=== PATIENT | male | born 1980 | race Hispanic/Latino ===

== ENCOUNTER 2017-11-21 12:05 | Emergency (ER) | payer OTHER ==
[2017-11-21 14:09] LABS: Absolute Monocytes 1.1 K/uL (0.1-1.3); Absolute Neutrophil 7.7 K/uL (1.8-8.0); Eosinophils % 0.9 % (0-4.4); Hematocrit 43.2 % (39.6-49.0); Lymphocytes % 18.2 % (15.3-44.8); MCH 31.9 pg (27.0-35.0); MCV 94.3 fL (80-100); MPV 8.9 fL (7.6-11.3); Monocytes % 9.9 % (3.3-12.3); RBC Red Blood Cell Count 4.58 M/uL (4.33-5.43)
--- NOTE | 2017-11-21 14:14 | RAD REPORT ---
EXAM DESCRIPTION: RAD - Chest Single View - 11/21/2017 1:57 pm CLINICAL HISTORY: Shortness of breath COMPARISON: 08/01/2017 FINDINGS: Portable technique limits examination quality. The lungs are grossly clear. The heart is normal in size. No displaced fractures. IMPRESSION: No acute intrathoracic process suspected.
[2017-11-21 14:15] LABS: Protime INR 0.95
[2017-11-21 14:20] LABS: Urine Blood NEGATIVE (NEG); Urine Glucose NEGATIVE (NEG); Urine Protein NEGATIVE (NEG); Urine Specific Gravity 1.015 (1.005-1.030)
[2017-11-21 14:22] LABS: Glucose Level 103 mg/dL (65-120)
[2017-11-21 14:28] LABS: Albumin 4.2 g/dL (3.2-5.5); Alkaline Phosphatase 51 IU/L (42-121); BUN Blood Urea Nitrogen 14 mg/dL (6-20); Bilirubin Direct 0.1 mg/dL (0-0.2); Bilirubin Total 0.6 mg/dL (0.3-1.2); Glomerular Filtration Rate > 90 mL/min (=/>90); Magnesium 2.1 mg/dL (1.8-2.5); Protein, Total 7.1 g/dL (6.0-8.3)
[2017-11-21 14:32] LABS: ALT/SGPT 34 IU/L (10-60); AST/SGOT 28 IU/L (10-42); Bicarbonate 24 mEq/L (21-31); Potassium 4.3 mEq/L (3.6-5.0); Sodium Level 133 mEq/L (135-145)
--- NOTE | 2017-11-21 16:15 | ER ---
Nurse's Notes [facility] Name: Brett Kramer Age: 37 yrs Sex: Male : 1980 Arrival Date: 11/21/2017 Time: 12:08 Bed 18 Private MD: Omari Thao E Diagnosis: Shortness of breath;Pedal Edema Presentation: 11/21 12:23 Presenting complaint: Patient states: Bilateral lower leg swelling and SOB since last hb night. Pt is 1 week post of shoulder and wrist sx. Transition of care: patient was not received from another setting of care. Onset of symptoms was November 20, 2017. Care prior to arrival: None. 12:23 Method Of Arrival: Ambulatory hb 12:23 Acuity: CLAIRE 3 hb Triage Assessment: 12:59 General: Appears in no apparent distress. uncomfortable, Behavior is calm, cooperative, hj appropriate for age. Respiratory: Reports shortness of breath Onset: The symptoms/episode began/occurred the patient has mild shortness of breath. Historical: - Allergies: 12:27 propoxyphene napsylate; hb - Home Meds: 12:27 Ativan Oral [Active]; metoprolol tartrate 50 mg Oral tab 1 tab 2 times per day [Active];hb - PMHx: 12:27 Hypertension; PE; hb - PSHx: 12:27 shoulder - right; wrist - right; hb - Immunization history:: Adult Immunizations up to date. - Social history:: Smoking status: Patient/guardian denies using tobacco. Screenin:58 Abuse screen: Denies threats or abuse. Denies injuries from another. Nutritional hj screening: No deficits noted. Tuberculosis screening: No symptoms or risk factors identified. Fall Risk Fall in past 12 months (25 points). Assessment: 12:59 Pain: Complains of pain in right leg and left leg. Cardiovascular: Rhythm is regular. hj Respiratory: Airway is patent Respiratory effort is even, unlabored, Respiratory pattern is regular, symmetrical, Breath sounds are clear. 12:59 General: Appears in no apparent distress. uncomfortable, Behavior is cooperative, hj appropriate for age, anxious. Pain: Complains of pain in chest and left leg and right leg. Neuro: Level of Consciousness is awake, alert, obeys commands, Oriented to person, place, time, situation, Appropriate for age. 12:59 GI: No signs and/or symptoms were reported involving the gastrointestinal system. : hj No signs and/or symptoms were reported regarding the genitourinary system. EENT: No signs and/or symptoms were reported regarding the EENT system. Derm: No signs and/or symptoms reported regarding the dermatologic system. Musculoskeletal: Reports pain in chest and anterior aspect of right shoulder and left leg and right leg. 13:45 Reassessment: awaiting for provider to visit pt;. hj 14:30 Reassessment: Patient and/or family updated on plan of care and expected duration. Pain hj level reassessed. Patient is alert, oriented x 3, equal unlabored respirations, skin warm/dry/pink. awaiting results;. 15:57 Reassessment: Patient and/or family updated on plan of care and expected duration. Pain hj level reassessed. Patient is alert, oriented x 3, equal unlabored respirations, skin warm/dry/pink. awaiting POC;. 16:36 Reassessment: Patient and/or family updated on plan of care and expected duration. Pain hj level reassessed. Patient is alert, oriented x 3, equal unlabored respirations, skin warm/dry/pink. D/ C instruction given; awaiting breathing tx to be done and ride to pick him up;. Vital Signs: 12:27 BP 148 / 88; Pulse 100; Resp 16; Temp 98.4; Pulse Ox 100% on R/A; Weight 106.59 kg; hb Height 5 ft. 8 in. (172.72 cm); Pain 10/10; 13:31 BP 132 / 94; Pulse 87; Resp 18; Pulse Ox 100% on R/A; hj 15:58 BP 122 / 65; Pulse 84; Resp 18; Pulse Ox 100% on R/A; hj 12:27 Body Mass Index 35.73 (106.59 kg, 172.72 cm) hb ED Course: 12:08 Patient arrived in ED. rg4 12:08 Omari Thao MD is Private Physician. rg4 12:25 Triage completed. hb 12:27 Arm band placed on left wrist. hb 12:47 Albert Medina MD is Attending Physician. kdr 12:58 Matias Younger RN is Primary Nurse. hj 12:59 Patient has correct armband on for positive identification. Placed in gown. Bed in low hj position. Call light in reach. Side rails up X 1. 13:57 XRAY Chest (1 view) In Process Unspecified. EDMS 13:57 Initial lab(s) drawn, by me, sent to lab. Inserted saline lock: 22 gauge in left hj antecubital area, using aseptic technique. Blood collected. 13:58 Urine collected: clean catch specimen, clear. hj 16:13 Omari Thao MD is Referral Physician. kdr 16:16 Warm blanket given. Pillow given. Head of bed lowered. pillow provided to support arm ae1 in sling. 16:58 No provider procedures requiring assistance completed. IV discontinued, intact, hj bleeding controlled, No redness/swelling at site. Pressure dressing applied. Administered Medications: 16:12 Drug: Xopenex (3) 1.25 mg Route: Inhalation; hj 16:12 Drug: morphine 4 mg Route: IVP; Site: left antecubital; hj 16:27 Follow up: Response: No adverse reaction; Pain is decreased hj 16:12 Drug: Zofran 4 mg Route: IVP; Site: left antecubital; hj 16:26 Follow up: Response: No adverse reaction hj 16:12 Drug: Lasix 20 mg Route: IVP; Site: left antecubital; hj 16:26 Follow up: Response: No adverse reaction hj Output: 16:16 Urine: 800ml (Voided); Total: 800ml. ae1 Outcome: 16:14 Discharge ordered by . kdr 16:58 Discharged to home ambulatory. hj 16:58 Condition: stable 16:58 Discharge instructions given to patient, Instructed on discharge instructions, follow up and referral plans. medication usage, Demonstrated understanding of instructions, follow-up care, medications, Prescriptions given X 2. 16:58 Patient left the ED. hj Signatures: Dispatcher [employer] EDMS Albert Medina MD MD kdr Matias Younger RN RN hj Baxter, Heather, RN RN Filippo Ybarra RN RN ae1 Bekah Castañeda rg4
--- NOTE | 2017-11-21 16:15 | EDPHYS ---
Physician Documentation [facility] Name: Brett Kramer Age: 37 yrs Sex: Male : 1980 Arrival Date: 11/21/2017 Time: 12:08 Bed 18 Private MD: Omari Thao E ED Physician Albert Medina HPI: 11/21 18:16 This 37 yrs old Male presents to ER via Ambulatory with complaints of Leg kdr Swelling, Shortness Of Breath. 18:16 The patient has shortness of breath at rest, with light activity. Onset: The kdr symptoms/episode began/occurred gradually, last night. Duration: The symptoms are continuous, and are steadily getting worse. The patient's shortness of breath is aggravated by exertion, light activity. 18:16 Associated signs and symptoms: Pertinent positives: Pertinent negatives: chest pain, kdr non-productive cough, productive cough, diaphoresis, dizziness, fever, hemoptysis, nausea, numbness in extremities, visual changes, vomiting. Severity of symptoms: At their worst the symptoms were mild in the emergency department the symptoms are unchanged. The patient has not experienced similar symptoms in the past. 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 He states that he is concerned about recurrence of his prior DVTs however, the leg swelling is bilaterally symetric. Historical: - Allergies: 12:27 propoxyphene napsylate; hb - Home Meds: 12:27 Ativan Oral [Active]; metoprolol tartrate 50 mg Oral tab 1 tab 2 times per day [Active];hb - PMHx: 12:27 Hypertension; PE; hb - PSHx: 12:27 shoulder - right; wrist - right; hb - Immunization history:: Adult Immunizations up to date. - Social history:: Smoking status: Patient/guardian denies using tobacco. ROS: 18:16 Constitutional: Negative for fever, chills, and weight loss, Eyes: Negative for injury, kdr pain, redness, and discharge, ENT: Negative for injury, pain, and discharge, Neck: Negative for injury, pain, and swelling, Cardiovascular: Negative for chest pain, palpitations, and edema, Abdomen/GI: Negative for abdominal pain, nausea, vomiting, diarrhea, and constipation, Back: Negative for injury and pain, : Negative for injury, bleeding, discharge, and swelling, Skin: Negative for injury, rash, and discoloration, Neuro: Negative for headache, weakness, numbness, tingling, and seizure activity. Psych: Negative for depression, anxiety, suicide ideation, homicidal ideation, and hallucinations, Allergy/Immunology: Negative for hives, rash, and allergies, Endocrine: Negative for neck swelling, polydipsia, polyuria, polyphagia, and marked weight changes, Hematologic/Lymphatic: Negative for swollen nodes, abnormal bleeding, and unusual bruising. 18:16 Respiratory: Positive for shortness of breath, at rest. Negative for cough, dyspnea on exertion, hemoptysis, orthopnea, pleurisy, sputum production, wheezing. 18:16 MS/extremity: Positive for swelling, of the right leg and left leg. Exam: 18:16 Constitutional: This is a well developed, well nourished patient who is awake, alert, kdr and in no acute distress. Head/Face: Normocephalic, atraumatic. Eyes: Pupils equal round and reactive to light, extra-ocular motions intact. Lids and lashes normal. Conjunctiva and sclera are non-icteric and not injected. Cornea within normal limits. Periorbital areas with no swelling, redness, or edema. Neck: Trachea midline, no thyromegaly or masses palpated, and no cervical lymphadenopathy. Supple, full range of motion without nuchal rigidity, or vertebral point tenderness. No Meningismus. Chest/axilla: Normal chest wall appearance and motion. Nontender with no deformity. No lesions are appreciated. Cardiovascular: Regular rate and rhythm with a normal S1 and S2. No gallops, murmurs, or rubs. Normal PMI, no JVD. No pulse deficits. Respiratory: Lungs have equal breath sounds bilaterally, clear to auscultation and percussion. No rales, rhonchi or wheezes noted. No increased work of breathing, no retractions or nasal flaring. Abdomen/GI: Soft, non-tender, with normal bowel sounds. No distension or tympany. No guarding or rebound. No evidence of tenderness throughout. Back: No spinal tenderness. No costovertebral tenderness. Full range of motion. Skin: Warm, dry with normal turgor. Normal color with no rashes, no lesions, and no evidence of cellulitis. Neuro: Awake and alert, GCS 15, oriented to person, place, time, and situation. Cranial nerves II-XII grossly intact. Motor strength 5/5 in all extremities. Sensory grossly intact. Cerebellar exam normal. Normal gait. Psych: Awake, alert, with orientation to person, place and time. Behavior, mood, and affect are within normal limits. 18:16 Musculoskeletal/extremity: Extremities: grossly normal except: ROM: intact in all extremities, Circulation is intact in all extremities. Pulses: are normal with no appreciated deficits, Sensation intact. Weight bearing: able to fully bear weight, without difficulty, Calves: are non-tender, have equal circumference. Vital Signs: 12:27 BP 148 / 88; Pulse 100; Resp 16; Temp 98.4; Pulse Ox 100% on R/A; Weight 106.59 kg; hb Height 5 ft. 8 in. (172.72 cm); Pain 10/10; 13:31 BP 132 / 94; Pulse 87; Resp 18; Pulse Ox 100% on R/A; hj 15:58 BP 122 / 65; Pulse 84; Resp 18; Pulse Ox 100% on R/A; hj 12:27 Body Mass Index 35.73 (106.59 kg, 172.72 cm) hb MDM: 16:14 Patient medically screened. kdr 18:16 Data reviewed: vital signs, nurses notes, lab test result(s), radiologic studies. kdr Counseling: I had a detailed discussion with the patient and/or guardian regarding: the historical points, exam findings, and any diagnostic results supporting the discharge/admit diagnosis, lab results, radiology results. 11/21 13:46 Order name: Urine Dipstick--Ancillary (enter results); Complete Time: 16: ag 11/21 13:48 Order name: Basic Metabolic Panel; Complete Time: 16: kdr 11/21 13:48 Order name: BNP; Complete Time: 16: kdr 11/21 13:48 Order name: CBC with Diff; Complete Time: 16: kdr 11/21 13:48 Order name: LFT's; Complete Time: 16: kdr 11/21 13:48 Order name: Magnesium; Complete Time: 16: kdr 11/21 13:48 Order name: PT-INR; Complete Time: 16: kdr 11/21 13:48 Order name: Ptt, Activated; Complete Time: 16: kdr 11/21 13:48 Order name: Troponin (emerg Dept Use Only); Complete Time: 16:03 kdr 11/21 13:48 Order name: XRAY Chest (1 view); Complete Time: 16:03 kdr 11/21 14:21 Order name: DD kdr 11/21 14:21 Order name: D-Dimer; Complete Time: 16:03 EDMS 11/21 13:48 Order name: EKG; Complete Time: 13:49 kdr 11/21 13:48 Order name: Cardiac monitoring; Complete Time: 13:53 kdr 11/21 13:48 Order name: EKG - Nurse/Tech; Complete Time: 15:46 kdr 11/21 13:48 Order name: IV Saline Lock; Complete Time: 13:54 kdr 11/21 13:48 Order name: Labs collected and sent; Complete Time: 13:54 kdr 11/21 13:48 Order name: O2 Per Protocol; Complete Time: 13:54 kdr 11/21 13:48 Order name: O2 Sat Monitoring; Complete Time: 13:54 kdr 11/21 13:48 Order name: Urine Dipstick-Ancillary (obtain specimen); Complete Time: 13:54 kdr Administered Medications: 16:12 Drug: Xopenex (3) 1.25 mg Route: Inhalation; hj 16:12 Drug: morphine 4 mg Route: IVP; Site: left antecubital; hj 16:27 Follow up: Response: No adverse reaction; Pain is decreased hj 16:12 Drug: Zofran 4 mg Route: IVP; Site: left antecubital; hj 16:26 Follow up: Response: No adverse reaction hj 16:12 Drug: Lasix 20 mg Route: IVP; Site: left antecubital; hj 16:26 Follow up: Response: No adverse reaction hj Disposition: 11/21/17 16:14 Discharged to Home. Impression: Shortness of breath, Pedal Edema. - Condition is Stable. - Discharge Instructions: Shortness of Breath, [id number], Edema, [id number]. - Prescriptions for Xopenex HFA 45 mcg/actuation Inhalation HFA aerosol inhaler - inhale 2 puff by INHALATION route every 4 hours As needed; 2 Cartridge. Lasix 20 mg Oral Tablet - take 1 tablet by ORAL route once daily; 20 tablet. - Medication Reconciliation Form, Thank You Letter, Antibiotic Education, Prescription Opioid Use form. - Follow up: Omari Thao MD; When: 2 - 3 days; Reason: If symptoms return, Further diagnostic work-up, Recheck today's complaints, Continuance of care, Re-evaluation by your physician. - Problem is new. - Symptoms have improved. Signatures: Dispatcher [employer] EDMS Albert Medina MD MD [facility] Matias Younger RN RN Mirlande Anne RN RN
[2017-11-21] MEDS ORDERED: FUROSEMIDE 20 MG/ 2ML VIAL ONE (16:36)
[2017-11-21] MEDS ORDERED: MORPHINE 4 MG/ML SYR ONE (16:36)
[2017-11-21] MEDS ORDERED: ONDANSETRON 4 MG/2 ML VIAL ONE (16:36)
[2017-11-21] MEDS ORDERED: LEVALBUTEROL 1.25 MG/3 ML NEB ONE (16:38)
[2017-11-21 17:02] VITALS: TEMP 98.4; O2SAT 100
[2017-11-21 17:04] VITALS: BP 122/65
--- NOTE | 2017-11-23 12:54 | EKG ---
Test Date: 2017-11-21 Test Time: 14:12:26 Accreditation Coordinator: ELISSA MEASUREMENT RESULTS: Intervals: Rate: 79 MA: 184 QRSD: 98 QT: 420 QTc: 481 Procious: P: 45 MA: 184 QRS: 77 T: 153 INTERPRETIVE STATEMENTS: Normal sinus rhythm T wave abnormality, consider lateral ischemia Prolonged QT Abnormal ECG Compared to ECG 08/01/2017 17:13:11 No significant changes Electronically Signed On 11-23-17 12:53:52 CDT by Lv Grace
== END 2017-11-21 16:58 | disposition home or self-care (01) ==
LOC: ER 12:05
DX: R60.9 Edema, unspecified (principal); I10 Essential (primary) hypertension; Z86.718 Personal history of other venous thrombosis and embolism; Z88.8 Allergy status to other drugs, medicaments and biological substances
CPT/HCPCS: 36415; 71045; 80048; 80076; 81003; 83735; 83880; 84484; 85025; 85379; 85610; 85730; 93005; 96374; 96375; 99284; J1940; J2405

== ENCOUNTER 2018-06-13 09:14 | Emergency (ER) | payer OTHER ==
[2018-06-13] MEDS ORDERED: ONDANSETRON 4 MG/2 ML VIAL ONE (09:36)
[2018-06-13] MEDS ORDERED: MORPHINE 4 MG/ML SYR ONE (09:38)
--- NOTE | 2018-06-13 10:02 | ER ---
Nurse's Notes [facility] Name: Brett Kramer Age: 37 yrs Sex: Male : 1980 Arrival Date: 06/13/2018 Time: 09:15 Bed 15 Private MD: Diagnosis: Pain in right foot-S/p crush injury yesterday with multiple fractures and lacerations Presentation: 06/13 09:16 Presenting complaint: Patient states: Pt. had a guillen put down on his left foot rb1 yesterday at work. Pt. went to [facility] in [place] yesterday and received stitches and a splint. Pt. was told to come to the ER if he noticed a difference in the capillary refill in his left great toe. Transition of care: patient was not received from another setting of care. Onset of symptoms was June 12, 2018 at 08:30. Risk Assessment: Do you want to hurt yourself or someone else? Patient reports no desire to harm self or others. Initial Sepsis Screen: Does the patient meet any 2 criteria? No. Patient's initial sepsis screen is negative. Does the patient have a suspected source of infection? No. Patient's initial sepsis screen is negative. Care prior to arrival: Medication(s) given: Dallas 10 mg. 09:16 Method Of Arrival: Wheelchair rb1 09:16 Acuity: CLAIRE 2 rb1 Triage Assessment: 09:16 General: Appears uncomfortable, Behavior is calm, cooperative, Denies fever. Pain: rb1 Complains of pain in right foot Pain radiates to right baldwin Pain currently is 10 out of 10 on a pain scale. Pain began 1 day ago. Neuro: Level of Consciousness is awake, alert, obeys commands, Oriented to person, place, time, situation. Cardiovascular: Capillary refill is > 3 seconds in right great toe. Respiratory: Airway is patent Respiratory effort is even, unlabored, Respiratory pattern is regular, symmetrical. GI: No signs and/or symptoms were reported involving the gastrointestinal system. : No signs and/or symptoms were reported regarding the genitourinary system. Derm: Skin is pink, warm \T\ dry. Derm: Musculoskeletal: Swelling present in right foot. Injury Description: Crush injury sustained to right foot is Stitches present in the toes on the right foot. Historical: - Allergies: 09:16 propoxyphene napsylate; rb1 - Home Meds: 09:16 metoprolol tartrate 50 mg Oral tab 1 tab 2 times per day [Active]; Cipro 750 mg Oral rb1 [Active]; sulfamethoxazole (bulk) miscellaneous [Active]; Dallas 10-325 mg Oral tab 1 tab every 4 hours [Active]; 10:35 Adderall XR 20 mg Oral cp24 1 cap twice a day [Active]; rb1 - PMHx: 09:16 Hypertension; PE; rb1 - PSHx: 09:16 shoulder - right; wrist - right; rb1 - Immunization history:: Adult Immunizations up to date, Last tetanus immunization: up to date. - Social history:: Smoking status: Patient uses tobacco products, smokes one pack cigarettes per day. - Ebola Screening: : Patient negative for fever greater than or equal to 101.5 degrees Fahrenheit, and additional compatible Ebola Virus Disease symptoms. Screenin:16 Abuse screen: Denies threats or abuse. Nutritional screening: No deficits noted. rb1 Tuberculosis screening: No symptoms or risk factors identified. Fall Risk No fall in past 12 months (0 pts). Secondary diagnosis (15 points) impaired mobility, IV access (20 points). Ambulatory Aid- Crutches/Cane/Walker (15 pts). Gait- Impaired (20 pts.). Mental Status- Overestimates/Forgets Limitations (15 pts.). Total Gauthier Fall Scale indicates High Risk Score (45 or more points). Fall prevention measures have been instituted. Side Rails Up X 2 Placed Close to Nursing Station 1:1 Attendant Assigned Frequent Obs/Assessments Occuring As available patient and family educated on Fall Prevention Program and Strategies. Assessment: 09:16 General: See triage assessment. rb1 09:50 Reassessment: Gave report to KRISTINE Schmitt at [facility]. Information from the SBAR was given. rb1 All questions asked and answered. 10:20 Reassessment: Patient and/or family updated on plan of care and expected duration. Pain rb1 level reassessed. Patient is alert, oriented x 3, equal unlabored respirations, skin warm/dry/pink. Pt. requested more pain medication. Dr. Medina notified. Received order for Fentanyl 50 mcg IVP x 1. 10:35 Reassessment: Gave report to [facility]. Information from the SBAR was given. rb1 Personal belongings sent with pt. Vital Signs: 09:16 BP 179 / 93; Pulse 98; Resp 20; Temp 97.0(O); Pulse Ox 99% on R/A; Weight 110.22 kg; rb1 Height 5 ft. 8 in. (172.72 cm) (R); Pain 10/10; 10:16 BP 179 / 99; Pulse 93; Resp 19; Pulse Ox 100% on R/A; Pain 10/10; rb1 09:16 Body Mass Index 36.95 (110.22 kg, 172.72 cm) rb1 ED Course: 09:15 Patient arrived in ED. tw3 09:16 Albert Medina MD is Attending Physician. kdr 09:16 Arm band placed on left wrist. rb1 09:16 Patient has correct armband on for positive identification. Bed in low position. Call rb1 light in reach. Side rails up X 1. Pulse ox on. NIBP on. Warm blanket given. 09:40 Inserted saline lock: 20 gauge in left antecubital area, using aseptic technique. rb1 09:40 Missed attempt(s): 22 gauge in right antecubital area. rb1 09:44 Maida South, RN is Primary Nurse. rb1 09:48 Triage completed. rb1 10:39 No provider procedures requiring assistance completed. Patient transferred, IV remains rb1 in place. Administered Medications: 09:40 Drug: morphine 4 mg Route: IVP; Site: left antecubital; rb1 10:00 Follow up: Response: No adverse reaction; Pain is decreased rb1 09:40 Drug: Zofran 4 mg Route: IVP; Site: left antecubital; rb1 10:00 Follow up: Response: No adverse reaction; Nausea is decreased rb1 10:24 Drug: fentaNYL (PF) 50 mcg Route: IVP; Site: left antecubital; rb1 10:39 Follow up: Response: No adverse reaction; Pain is decreased rb1 Outcome: 10:02 ER care complete, transfer ordered by . kdr 10:39 Patient left the ED. rb1 10:39 Transferred by ground EMS to [facility], Transfer form rb1 completed. 10:39 Condition: stable 10:39 Discharge instructions given to Instructed on the need for transfer. Signatures: Albert Medina MD MD kdr Maida South, RN RN rb1 Michael, Tia tw3
--- NOTE | 2018-06-13 10:02 | EDPHYS ---
Physician Documentation [facility] Name: Brett Kramer Age: 37 yrs Sex: Male : 1980 Arrival Date: 06/13/2018 Time: 09:15 Bed 15 Private MD: ED Physician Albert Medina HPI: 06/13 09:29 This 37 yrs old Male presents to ER via Unassigned with complaints of Foot kdr Injury. 09:29 The patient presents with a crush injury, decreased range of motion, pain, that is kdr acute. The complaints affect the left foot. Context: The problem was sustained at work, resulted from [employer] pad from lift came down on his foot while he was wearing steel tipped work boots, Mechanism of Injury: Crush the patient is not able to bear weight, the patient is not able to ambulate. Onset: The symptoms/episode began/occurred suddenly, yesterday, at 08:30, Was seen at [facility] at about Noon for the same injury. Had suture repair and splinting for foot fractures.. Modifying factors: The symptoms are alleviated by nothing, the symptoms are aggravated by weight bearing, movement, wearing shoes. Associated signs and symptoms: The patient has no apparent associated signs or symptoms. Severity of symptoms: At their worst the symptoms were moderate, in the emergency department the symptoms are unchanged. The patient has not experienced similar symptoms in the past. The patient was evaluated and repaired at [facility] and discharged with follow-up in [place] on Friday. The patient states that he has been taking his [place] for pain as prescribed and has been keeping the foot elevated while laying on the couch.. Historical: - Allergies: 09:16 propoxyphene napsylate; rb1 - Home Meds: 09:16 metoprolol tartrate 50 mg Oral tab 1 tab 2 times per day [Active]; Cipro 750 mg Oral rb1 [Active]; sulfamethoxazole (bulk) miscellaneous [Active]; [place] 10-325 mg Oral tab 1 tab every 4 hours [Active]; 10:35 Adderall XR 20 mg Oral cp24 1 cap twice a day [Active]; rb1 - PMHx: 09:16 Hypertension; PE; rb1 - PSHx: 09:16 shoulder - right; wrist - right; rb1 - Immunization history:: Adult Immunizations up to date, Last tetanus immunization: up to date. - Social history:: Smoking status: Patient uses tobacco products, smokes one pack cigarettes per day. - Ebola Screening: : Patient negative for fever greater than or equal to 101.5 degrees Fahrenheit, and additional compatible Ebola Virus Disease symptoms. ROS: 09:29 MS/extremity: Positive for decreased range of motion, erythema, pain, swelling, kdr tenderness. 09:29 Constitutional: Negative for fever, chills, and weight loss. Exam: 09:29 Constitutional: This is a well developed, well nourished patient who is awake, alert, kdr and in mild (moderate when manipulted) distress. MS/ Extremity: The left foot was noted to be in a posterior splint. The great toe was dusky with diminished cap refill 3+ seconds. The other toes also had diminished refill. The arch of the foot was swollen and tense. The patient had minimal movement of his toes but with excruciating pain Vital Signs: 09:16 BP 179 / 93; Pulse 98; Resp 20; Temp 97.0(O); Pulse Ox 99% on R/A; Weight 110.22 kg; rb1 Height 5 ft. 8 in. (172.72 cm) (R); Pain 10/10; 10:16 BP 179 / 99; Pulse 93; Resp 19; Pulse Ox 100% on R/A; Pain 10/10; rb1 09:16 Body Mass Index 36.95 (110.22 kg, 172.72 cm) rb1 MDM: 09:29 Data reviewed: vital signs, nurses notes. Counseling: I had a detailed discussion with kdr the patient and/or guardian regarding: the historical points, exam findings, and any diagnostic results supporting the discharge/admit diagnosis, the need to transfer to another facility, for higher level of care, Continuity of care. 10:02 Patient medically screened. kdr Administered Medications: 09:40 Drug: morphine 4 mg Route: IVP; Site: left antecubital; rb1 10:00 Follow up: Response: No adverse reaction; Pain is decreased rb1 09:40 Drug: Zofran 4 mg Route: IVP; Site: left antecubital; rb1 10:00 Follow up: Response: No adverse reaction; Nausea is decreased rb1 10:24 Drug: fentaNYL (PF) 50 mcg Route: IVP; Site: left antecubital; rb1 10:39 Follow up: Response: No adverse reaction; Pain is decreased rb1 Disposition: 06/13/18 10:02 Transfer ordered to [facility]. Diagnosis is Pain in right foot - S/p crush injury yesterday with multiple fractures and lacerations. - Reason for transfer: Higher level of care. - Accepting physician is Dr. Rayo. - Condition is Fair. - Problem is an acute exacerbation. - Symptoms are unchanged. Signatures: Albert Medina MD MD kdr Maida South RN RN rb1 Corrections: (The following items were deleted from the chart) 10:31 10:02 06/13/2018 10:02 Transfer ordered to [facility]. Diagnosis is Pain in right kdr foot - S/p cruch injury yesterday with multiple fractures and lacerations. Reason for transfer: Higher level of care. Accepting physician is Dr. Rayo. Condition is Fair. Problem is an acute exacerbation. Symptoms are unchanged. kdr 10:39 10:31 06/13/2018 10:02 Transfer ordered to [facility]. Diagnosis is Pain in right rb1 foot - S/p crush injury yesterday with multiple fractures and lacerations. Reason for transfer: Higher level of care. Accepting physician is Dr. Rayo. Condition is Fair. Problem is an acute exacerbation. Symptoms are unchanged. kdr
[2018-06-13] MEDS ORDERED: FENTANYL CITR 100 MCG/2 ML ONE (10:28)
[2018-06-13 10:43] VITALS: BP 179/93; TEMP 97; O2SAT 99
== END 2018-06-13 10:39 | disposition short-term general hospital (02) ==
LOC: ER 09:14
DX: S97.82XD Crushing injury of left foot, subsequent encounter (principal); W31.89XD Contact with other specified machinery, subsequent encounter; Z88.8 Allergy status to other drugs, medicaments and biological substances; F17.210 Nicotine dependence, cigarettes, uncomplicated; I10 Essential (primary) hypertension
CPT/HCPCS: 96374; 96375; 99285; J2405; J3010

== ENCOUNTER 2018-06-15 00:43 | Emergency (ER) | payer OTHER ==
[2018-06-15] MEDS ORDERED: MEPERIDINE HCL 50 MG/ML AMP ONE (01:17)
[2018-06-15] MEDS ORDERED: MORPHINE 4 MG/ML SYR ONE (02:16)
--- NOTE | 2018-06-15 04:03 | EDPHYS ---
Physician Documentation [facility] Name: Brett Kramer Age: 37 yrs Sex: Male : 1980 Arrival Date: 06/15/2018 Time: 00:49 Bed 4 Private MD: ED Physician Ezra Solitario HPI: 06/15 02:01 This 37 yrs old Male presents to ER via EMS with complaints of Foot Pain. rn 02:01 The patient presents with pain. The complaints affect the right foot. Onset: The rn symptoms/episode began/occurred 3 day(s) ago. Severity of symptoms: At their worst the symptoms were moderate, in the emergency department the symptoms are unchanged. The patient has experienced similar episodes in the past. The patient has been recently seen at the [facility] Emergency Department. Reports crush injury 3 days ago, + multiple fractures in foot, sent home with appt today at [facility] with [facility], seen here yesterday, transferred to [facility] for concerns of possible compartment syndrome, sent home again. Returned for persistent pain, no significant change, but + mild increase in swelling.. Historical: - Allergies: 00:53 propoxyphene napsylate; bb - Home Meds: 00:53 Adderall XR 20 mg Oral cp24 1 cap twice a day [Active]; Ativan Oral [Active]; Cipro 750 bb mg Oral [Active]; metoprolol tartrate 50 mg Oral tab 1 tab 2 times per day [Active]; [place] 10-325 mg Oral tab 1 tab every 4 hours [Active]; sulfamethoxazole (bulk) miscellaneous [Active]; gabapentin oral oral [Active]; Glucophage Oral [Active]; - PMHx: 00:53 Hypertension; PE; bb - PSHx: 00:53 shoulder - right; wrist - right; bb - Immunization history:: Adult Immunizations up to date. - Social history:: Smoking status: . - Ebola Screening: : No symptoms or risks identified at this time. - Family history:: not pertinent. - Hospitalizations: : No recent hospitalization is reported. ROS: 02:01 Constitutional: Negative for fever, chills, and weight loss, MS/Extremity: + injury and rn deformity of right foot Neuro: Negative for weakness, numbness, tingling Exam: 02:01 Constitutional: This is a well developed, well nourished patient who is awake, alert, rn appears uncomfortable MS/ Extremity: Pulses equal, no cyanosis. + diffuse swelling of right foot with ecchymosis of forefoot, cap refill of each toe < 2 sec, sutured wound intact, no warmth, + tenderness to entire forefoot with painful ROM especially great toe. Vital Signs: 00:53 BP 156 / 95; Pulse 100; Resp 18 S; Temp 98.5(O); Pulse Ox 98% on R/A; Weight 112.49 kg bb (R); Height 5 ft. 8 in. (172.72 cm) (R); Pain 10/10; 02:00 BP 125 / 81; Pulse 76; Resp 18; Pulse Ox 97% on R/A; jb4 03:00 BP 114 / 75; Pulse 73; Resp 18; Pulse Ox 99% on R/A; jb4 04:00 BP 140 / 98; Pulse 72; Resp 16; Pulse Ox 99% on R/A; jb4 00:53 Body Mass Index 37.71 (112.49 kg, 172.72 cm) bb MDM: 00:57 Patient medically screened. rn 01:54 ED course: Consulted with Dr. See, recommends transfer to [facility] for rn evaluation of possible compartment syndrome, patient at this time declines, states just transferred there yesterday for the same and ortho sent him home, patient is planning on going home and going to appt later today as scheduled. Risks of leaving and not being transferred explained and understood. . 03:58 Differential diagnosis: post injury swelling, pain, possible compartment syndrome. Data rn reviewed: vital signs, nurses notes, radiologic studies, and as a result, I will discharge patient. Counseling: I had a detailed discussion with the patient and/or guardian regarding: the historical points, exam findings, and any diagnostic results supporting the discharge/admit diagnosis, radiology results, the need for outpatient follow up, to return to the emergency department if symptoms worsen or persist or if there are any questions or concerns that arise at home. Response to treatment: the patient's symptoms have mildly improved after treatment, and as a result, I will discharge patient. Special discussion: Based on the history and exam findings, there is no indication for further emergent testing or inpatient evaluation. I discussed with the patient/guardian the need to see the orthopedic surgeon for further evaluation of the symptoms. ED course: Offered to patient transfer vs dc home, patient wants to go home, plans on going early to clinic appt, return precautions given and understood. Pulses intact, cap refill < 2 secs, + moderate swelling, has pain with movement of foot and toes but also just a few days out of injury, signs and symptoms of compartment syndrome explained so that he can look out for them, and understood.. 06/15 00:57 Order name: XRAY Foot RIGHT 3 View rn Administered Medications: 01:14 Drug: Demerol 50 mg Route: IM; Site: right deltoid; jb4 02:28 Follow up: Response: No adverse reaction; Pain is unchanged, physician notified jb4 02:26 Drug: morphine 4 mg Route: IM; Site: left deltoid; jb4 04:28 Follow up: Response: No adverse reaction; Pain is decreased jb4 Disposition: 06/15/18 04:03 Discharged to Home. Impression: Nondisplaced fracture of proximal phalanx of right great toe, Nondisplaced fracture of proximal phalanx of right lesser toe(s). - Condition is Stable. - Discharge Instructions: Compartment Syndrome of the Foot, Toe Fracture. - Medication Reconciliation Form, Thank You Letter, Antibiotic Education, Prescription Opioid Use form. - Follow up: Private Physician; When: Today; Reason: Recheck today's complaints, Re-evaluation by your physician. - Problem is an ongoing problem. - Symptoms have improved. Signatures: Dispatcher [employer] Kayleen Rob RN RN bb Nieto, Roman, MD MD rn Bryson, James, RN RN jb4 Corrections: (The following items were deleted from the chart) 04:29 04:03 06/15/2018 04:03 Discharged to Home. Impression: Nondisplaced fracture of jb4 proximal phalanx of right great toe; Nondisplaced fracture of proximal phalanx of right lesser toe(s). Condition is Stable. Forms are Medication Reconciliation Form, Thank You Letter, Antibiotic Education, Prescription Opioid Use. Follow up: Private Physician; When: Today; Reason: Recheck today's complaints, Re-evaluation by your physician. Problem is an ongoing problem. Symptoms have improved. rn
--- NOTE | 2018-06-15 04:03 | ER ---
Nurse's Notes [facility] Name: Brett Kramer Age: 37 yrs Sex: Male : 1980 Arrival Date: 06/15/2018 Time: 00:49 Bed 4 Private MD: Diagnosis: Nondisplaced fracture of proximal phalanx of right great toe;Nondisplaced fracture of proximal phalanx of right lesser toe(s) Presentation: 06/15 00:49 Presenting complaint: EMS states: they were toned out for report of pt right foot with bb swelling and more pain s/p crush injury on Friday. Transition of care: patient was not received from another setting of care. Onset of symptoms was June 12, 2018. Risk Assessment: Do you want to hurt yourself or someone else? Patient reports no desire to harm self or others. Initial Sepsis Screen: Does the patient meet any 2 criteria? No. Patient's initial sepsis screen is negative. Does the patient have a suspected source of infection? No. Patient's initial sepsis screen is negative. Care prior to arrival: None. 00:49 Method Of Arrival: EMS: [facility] bb 00:49 Acuity: CLAIRE 3 bb Historical: - Allergies: 00:53 propoxyphene napsylate; bb - Home Meds: 00:53 Adderall XR 20 mg Oral cp24 1 cap twice a day [Active]; Ativan Oral [Active]; Cipro 750 bb mg Oral [Active]; metoprolol tartrate 50 mg Oral tab 1 tab 2 times per day [Active]; [place] 10-325 mg Oral tab 1 tab every 4 hours [Active]; sulfamethoxazole (bulk) miscellaneous [Active]; gabapentin oral oral [Active]; Glucophage Oral [Active]; - PMHx: 00:53 Hypertension; PE; bb - PSHx: 00:53 shoulder - right; wrist - right; bb - Immunization history:: Adult Immunizations up to date. - Social history:: Smoking status: . - Ebola Screening: : No symptoms or risks identified at this time. - Family history:: not pertinent. - Hospitalizations: : No recent hospitalization is reported. Screenin:00 Abuse screen: Denies threats or abuse. Nutritional screening: No deficits noted. jb4 Tuberculosis screening: No symptoms or risk factors identified. Fall Risk None identified. Assessment: 00:55 General: Appears in no apparent distress. uncomfortable, Behavior is calm, cooperative, jb4 appropriate for age. Pain: Complains of pain in right foot Pain does not radiate. Pain currently is 10 out of 10 on a pain scale. at worst was 10 out of 10 on a pain scale. Quality of pain is described as pressure. Neuro: Level of Consciousness is awake, alert, obeys commands, Oriented to person, place, time, situation. Cardiovascular: Patient's skin is warm and dry. Respiratory: Airway is patent Respiratory effort is even, unlabored, Respiratory pattern is regular, symmetrical. GI: No signs and/or symptoms were reported involving the gastrointestinal system. : No signs and/or symptoms were reported regarding the genitourinary system. EENT: No signs and/or symptoms were reported regarding the EENT system. Derm: Skin Sutures noted to the right big toe. Skin is pink, warm \T\ dry. Musculoskeletal: Circulation, motion, and sensation intact. Injury Description: Laceration sustained to plantar aspect of right first toe and right first toe. 02:00 Reassessment: Patient appears in no apparent distress at this time. Patient and/or jb4 family updated on plan of care and expected duration. Pain level reassessed. Patient is alert, oriented x 3, equal unlabored respirations, skin warm/dry/pink. 03:00 Reassessment: Patient appears in no apparent distress at this time. Patient and/or jb4 family updated on plan of care and expected duration. Pain level reassessed. Patient is alert, oriented x 3, equal unlabored respirations, skin warm/dry/pink. 04:00 Reassessment: Patient appears in no apparent distress at this time. Patient and/or jb4 family updated on plan of care and expected duration. Pain level reassessed. Patient is alert, oriented x 3, equal unlabored respirations, skin warm/dry/pink. Vital Signs: 00:53 BP 156 / 95; Pulse 100; Resp 18 S; Temp 98.5(O); Pulse Ox 98% on R/A; Weight 112.49 kg bb (R); Height 5 ft. 8 in. (172.72 cm) (R); Pain 10/10; 02:00 BP 125 / 81; Pulse 76; Resp 18; Pulse Ox 97% on R/A; jb4 03:00 BP 114 / 75; Pulse 73; Resp 18; Pulse Ox 99% on R/A; jb4 04:00 BP 140 / 98; Pulse 72; Resp 16; Pulse Ox 99% on R/A; jb4 00:53 Body Mass Index 37.71 (112.49 kg, 172.72 cm) ED Course: 00:49 Patient arrived in ED. bb 00:50 Omega Mcgraw, RN is Primary Nurse. jb4 00:51 Triage completed. bb 00:53 Arm band placed on Patient placed in an exam room, on a stretcher, on pulse oximetry. bb 00:57 Ezra Solitario MD is Attending Physician. rn 01:00 Patient has correct armband on for positive identification. jb4 01:00 Pulse ox on. NIBP on. jb4 01:24 X-ray completed. Portable x-ray completed in exam room. Patient tolerated procedure kw well. 01:26 XRAY Foot RIGHT 3 View In Process Unspecified. EDMS 04:00 No provider procedures requiring assistance completed. Patient did not have IV access jb4 during this emergency room visit. Administered Medications: 01:14 Drug: Demerol 50 mg Route: IM; Site: right deltoid; jb4 02:28 Follow up: Response: No adverse reaction; Pain is unchanged, physician notified jb4 02:26 Drug: morphine 4 mg Route: IM; Site: left deltoid; jb4 04:28 Follow up: Response: No adverse reaction; Pain is decreased jb4 Outcome: 04:00 Discharged to home ambulatory. jb4 04:00 Condition: stable 04:00 Discharge instructions given to patient, Instructed on discharge instructions, follow up and referral plans. Demonstrated understanding of instructions, follow-up care. 04:03 Discharge ordered by . rn 04:29 Patient left the ED. jb4 Signatures: Dispatcher [employer] EDMS Kayleen Prince RN RN bb Nieto, Roman, MD MD rn Whitley, Kimberlee kw Bryson, James, KRISTINE RN jb4 Corrections: (The following items were deleted from the chart) 01:00 No provider procedures requiring assistance completed. jb4 jb4 01:00 Patient did not have IV access during this emergency room visit. jb4 jb4
[2018-06-15 04:37] VITALS: TEMP 98.5
[2018-06-15 04:40] VITALS: O2SAT 99
[2018-06-15 04:41] VITALS: BP 140/98
--- NOTE | 2018-06-15 08:23 | RAD REPORT ---
EXAM DESCRIPTION: RAD - Foot Right 3 View - 06/15/2018 1:28 am CLINICAL HISTORY: Foot pain and soft tissue swelling, history of blunt force trauma COMPARISON: None. FINDINGS: Comminuted fracture of the first proximal phalanx is present. Fracture lines extend to the articular surface. No distraction or angulation deformity. There is a transverse fracture through th e proximal shaft second proximal phalanx. Distal fracture fragment is laterally displaced 2-3 mm. No metatarsal fracture and no other phalanx fracture confirmed. Tarsal bones are intact. Soft tissue swelling is present. No air or foreign body identified. IMPRESSION: Fractures of the first and second proximal phalanges as detailed.
== END 2018-06-15 04:29 | disposition home or self-care (01) ==
LOC: ER 00:43
DX: S92.414A Nondisplaced fracture of proximal phalanx of right great toe, initial encounter for closed fracture (principal); S92.514A Nondisplaced fracture of proximal phalanx of right lesser toe(s), initial encounter for closed fracture; X58.XXXA Exposure to other specified factors, initial encounter; Y93.9 Activity, unspecified; Y92.9 Unspecified place or not applicable; Z88.8 Allergy status to other drugs, medicaments and biological substances; I10 Essential (primary) hypertension
CPT/HCPCS: 96372; 99284; J2175

== ENCOUNTER 2018-06-18 18:37 | Emergency (ER) | payer OTHER, SELFPAY ==
[2018-06-18 18:56] LABS: Absolute Lymphocytes (CBC) 1.9 K/uL (0.7-4.9); Absolute Monocytes 1.1 K/uL (0.1-1.3); Absolute Neutrophil 7.2 K/uL (1.8-8.0); Eosinophils % 1.1 % (0-4.4); Hematocrit 44.2 % (39.6-49.0); Lymphocytes % 18.2 % (15.3-44.8); MCH 32.1 pg (27.0-35.0); MCV 94.5 fL (80-100); MPV 8.8 fL (7.6-11.3); Monocytes % 10.7 % (3.3-12.3); RBC Red Blood Cell Count 4.68 M/uL (4.33-5.43)
[2018-06-18] MEDS ORDERED: MEPERIDINE HCL 25 MG/0.5 ML ONE ×2 (18:59→22:25)
[2018-06-18] MEDS ORDERED: ONDANSETRON 4 MG/2 ML VIAL ONE (18:59)
[2018-06-18 19:06] LABS: Protime INR 1.06
--- NOTE | 2018-06-18 19:23 | RAD REPORT ---
EXAM DESCRIPTION: RAD - Chest Single View - 06/18/2018 7:09 pm CLINICAL HISTORY: Dyspnea COMPARISON: October 2017 TECHNIQUE: AP portable chest image was obtained 1906 hours . FINDINGS: No peripheral mass or consolidation. Lung markings are increased fractionally over the melva or study. No focal consolidation or mass. Minimal interstitial edema or infiltrate is possible. Heart and vasculature are normal. No measurable pleural effusion and no pneumothorax. No acute bony abnorm ality seen. No acute aortic findings suspected. IMPRESSION: No focal mass, consolidation or significant failure. Mild increased prominence of the interstitial markings from October could indicated minimal amount of e darby or infiltrate.
[2018-06-18 19:25] LABS: ALT/SGPT 33 U/L (12-78); AST/SGOT 23 U/L (15-37); Albumin 3.4 g/dL (3.4-5.0); Alkaline Phosphatase 66 U/L (45-117); BUN Blood Urea Nitrogen 19 mg/dL (7-18); Bicarbonate 23 mmol/L (21-32); Bilirubin Direct < 0.1 mg/dL (0-0.2); Bilirubin Total 0.4 mg/dL (0.2-1.0); Glucose Level 161 mg/dL (74-106); Magnesium 2.2 mg/dL (1.8-2.4); NT PRO-BNP 227 pg/mL (<125); Potassium 4.2 mmol/L (3.5-5.1); Protein, Total 7.4 g/dL (6.4-8.2); Sodium Level 136 mmol/L (136-145); Troponin (Emerg Dept Use Only) < 0.02 ng/mL (0.0-0.045)
--- NOTE | 2018-06-18 20:16 | RAD REPORT ---
EXAM DESCRIPTION: CT - Chest For Pe Angio - 06/18/2018 7:49 pm CLINICAL HISTORY: Chest pain, shortness of breath COMPARISON: Chest films same date, PE study July 2017, PE study December 2016 and June 2016 TECHNIQUE: Dynamically enhanced 3 mm thick images of the chest were obtained during administration o f approximately 150mL Isovue 370 IV contrast. Coronal and oblique MIP reconstruction images were gene rated and reviewed. Exam utilizes a protocol to evaluate the pulmonary arterial tree. All CT scans are performed using dose optimization technique as appropriate and may include automated exposure control or mA/KV adjustment according to patient size. FINDINGS: No pulmonary emboli are identified. The aorta as imaged shows no acute or suspicious finding. No pericardial thickening or effusion. No focal lung parenchymal process seen. No significant interstitial edema or infiltrate. No pleural e ffusion or pleural thickening. No mediastinal or hilar suspicious masses. No chest wall masses or abnormal axillary lymphadenopathy. IMPRESSION: No pulmonary emboli identified. No significant changes from multiple prior studies.
--- NOTE | 2018-06-18 21:53 | ER ---
Nurse's Notes [facility] Name: Brett Kramer Age: 37 yrs Sex: Male : 1980 Arrival Date: 06/18/2018 Time: 18:41 Bed 8 Private MD: Diagnosis: Local infection of the skin and subcutaneous tissue, unspecified;Pain in right foot Presentation: 06/18 18:29 Presenting complaint: EMS states: SOB since 1000 today. O2 sat 100% RA, placed on 100% sv NRB. Pt recently had a right foot crush injury and has not had surgery on it yet. SBP 165 ST-80-100. Transition of care: patient was not received from another setting of care. Onset of symptoms was June 18, 2018 at 10:00. Risk Assessment: Do you want to hurt yourself or someone else? Patient reports no desire to harm self or others. Care prior to arrival: Glucose check: 173 Oxygen administered. via a non-rebreather mask. 18:29 Method Of Arrival: EMS: [facility] sv 18:29 Acuity: CLAIRE 2 sv 19:17 Initial Sepsis Screen: Does the patient meet any 2 criteria? No. Patient's initial ak1 sepsis screen is negative. Does the patient have a suspected source of infection? No. Patient's initial sepsis screen is negative. Triage Assessment: 18:30 General: Appears uncomfortable, obese, well developed, Behavior is calm, cooperative, sv appropriate for age. Pain: Complains of pain in right foot and right leg Pain currently is 10 out of 10 on a pain scale. Quality of pain is described as shooting, Pain began 1000 Is continuous. EENT: No signs and/or symptoms were reported regarding the EENT system. Neuro: Level of Consciousness is awake, alert, obeys commands, Oriented to person, place, time, situation, Moves all extremities. Full function Speech is normal. Cardiovascular: Patient's skin is warm and dry. Rhythm is sinus rhythm. Respiratory: Reports shortness of breath at rest on exertion labored breathing since 1000 Airway is patent Respiratory effort is even, labored, Respiratory pattern is symmetrical, tachypnea Onset: The symptoms/episode began/occurred this morning, the patient has moderate shortness of breath. Derm: Skin is pink, warm \T\ dry. Derm: Wound noted shaft of penis Wound is redness and open area noted. Musculoskeletal: Range of motion: intact in all extremities, Swelling present in right foot. Historical: - Allergies: 19:05 propoxyphene napsylate; sv - Home Meds: 19:18 Adderall XR 20 mg Oral cp24 1 cap twice a day [Active]; Ativan Oral [Active]; Cipro 750 ak1 mg Oral [Active]; gabapentin Oral [Active]; Glucophage Oral [Active]; metoprolol tartrate 50 mg Oral tab 1 tab 2 times per day [Active]; [place] 10-325 mg Oral tab 1 tab every 4 hours [Active]; sulfamethoxazole (bulk) miscellaneous [Active]; - PMHx: 19:05 Hypertension; PE; sv - PSHx: 19:05 shoulder - right; wrist - right; sv - Immunization history:: Adult Immunizations up to date. - Social history:: Smoking status: Patient uses tobacco products, smokes one-half pack cigarettes per day. - Ebola Screening: : No symptoms or risks identified at this time. Screenin:06 Abuse screen: Denies threats or abuse. Denies injuries from another. Nutritional sv screening: No deficits noted. Tuberculosis screening: No symptoms or risk factors identified. Fall Risk No fall in past 12 months (0 pts). No secondary diagnosis (0 pts). IV access (20 points). Ambulatory Aid- None/Bed Rest/Nurse Assist (0 pts). Gait- Normal/Bed Rest/Wheelchair (0 pts) Mental Status- Oriented to own ability (0 pts). Total Gauthier Fall Scale indicates No Risk (0-24 pts). Assessment: 19:31 Respiratory: Airway is patent Breath sounds are clear. ak1 19:32 General: Appears in no apparent distress. Neuro: No deficits noted. Cardiovascular: No ak1 deficits noted. Cardiovascular: Capillary refill < 3 seconds. Respiratory: Airway is patent Onset: The symptoms/episode began/occurred today. GI: No signs and/or symptoms were reported involving the gastrointestinal system. : No signs and/or symptoms were reported regarding the genitourinary system. EENT: No signs and/or symptoms were reported regarding the EENT system. Derm: No signs and/or symptoms reported regarding the dermatologic system. 19:44 Reassessment: pt in CT. ak1 22:25 Reassessment: right foot wrapped as requested from pt. pt stated he has called his ride.ak1 Vital Signs: 18:34 BP 157 / 107; Pulse 97; Resp 28; Temp 98.2; Pulse Ox 100% on Non-rebreather mask; sv Weight 110.22 kg; Height 5 ft. 8 in. (172.72 cm); Pain 10/10; 19:07 BP 134 / 75; Pulse 91; Resp 18; Pulse Ox 100% on Non-rebreather mask; sv 18:34 Body Mass Index 36.95 (110.22 kg, 172.72 cm) sv ED Course: 18:30 Patient has correct armband on for positive identification. Placed in gown. Bed in low sv position. Side rails up X2. clinical research monitor on. Pulse ox on. NIBP on. Door closed. Head of bed elevated. 18:40 Arm band placed on. sv 18:41 Patient arrived in ED. jr8 18:42 Vipul Allen PA is PHCP. jr8 18:42 Jens Moreira MD is Attending Physician. jr8 18:45 Initial lab(s) drawn, by sc, sent to lab. Inserted saline lock: 20 gauge in right sv antecubital area, using aseptic technique. Blood collected. Flushed right antecubital with 5 ml normal saline. 18:49 Jessica Hinson RN is Primary Nurse. sv 18:52 EKG done, by ED staff, reviewed by Vipul MENDOZA. dh3 19:05 Triage completed. sv 19:09 XRAY Chest (1 view) In Process Unspecified. EDMS 19:09 Report given to Anna RN and Rupert RN. sv 19:12 Primary Nurse role handed off by Jessica Hinson RN sv 19:17 Anna Hernández RN is Primary Nurse. ak1 19:[address] via stretcher. vr 19:49 CT Chest For PE Angio In Process Unspecified. EDMS 21:50 US Extremity Venous Unilateral Ltd In Process Unspecified. EDMS 22:26 No provider procedures requiring assistance completed. IV discontinued, intact, ak1 bleeding controlled, No redness/swelling at site. Pressure dressing applied. Administered Medications: 18:55 Drug: Zofran 4 mg Route: IVP; Site: right antecubital; sv 20:21 Follow up: Response: No adverse reaction ak1 18:57 Drug: Demerol 25 mg Route: IVP; Site: right antecubital; sv 20:21 Follow up: Response: No adverse reaction ak1 22:20 Drug: Demerol 25 mg Route: IVP; Site: right antecubital; ak1 22:25 Follow up: Response: No adverse reaction ak1 Point of Care Testing: Blood Glucose: 18:45 Blood Glucose: 153 mg/dL; sv Ranges: Outcome: 21:53 Discharge ordered by MD. rutherford 22:26 Discharged to home with crutches, with family. ak1 22:26 Condition: good 22:26 Discharge instructions given to patient, Instructed on discharge instructions, follow up and referral plans. Demonstrated understanding of instructions, follow-up care. 22:42 Patient left the ED. ak1 Signatures: Dispatcher [employer] Jessica Griggs, RN Palma Duenas Josh, PA PA jr8 Krenek, Amber, RN RN ak1 Soniya Mattson [facility]
--- NOTE | 2018-06-18 21:54 | EDPHYS ---
Physician Documentation [facility] Name: Brett Kramer Age: 37 yrs Sex: Male : 1980 Arrival Date: 06/18/2018 Time: 18:41 Bed 8 Private MD: ED Physician Jens Moreira HPI: 06/18 20:30 This 37 yrs old Male presents to ER via EMS with complaints of Shortness Of jr8 Breath. 20:30 The patient has shortness of breath at rest. Onset: The symptoms/episode began/occurred jr8 acutely, today. Duration: The symptoms are continuous. The patient's shortness of breath has no apparent modifying factors. Associated signs and symptoms: The patient has no apparent associated signs or symptoms. Severity of symptoms: At their worst the symptoms were moderate in the emergency department the symptoms are unchanged. The patient has experienced a previous episode. The patient has not recently seen a physician. Patient had his foot crushed about 1 weeks ago. History of PE in past. Started to have sudden onset shortness of breath and increased right lower extremity pain. Worried that he has another PE. Has not been on anticoagulation for several years now . Historical: - Allergies: 19:05 propoxyphene napsylate; sv - Home Meds: 19:18 Adderall XR 20 mg Oral cp24 1 cap twice a day [Active]; Ativan Oral [Active]; Cipro 750 ak1 mg Oral [Active]; gabapentin Oral [Active]; Glucophage Oral [Active]; metoprolol tartrate 50 mg Oral tab 1 tab 2 times per day [Active]; [place] 10-325 mg Oral tab 1 tab every 4 hours [Active]; sulfamethoxazole (bulk) miscellaneous [Active]; - PMHx: 19:05 Hypertension; PE; sv - PSHx: 19:05 shoulder - right; wrist - right; sv - Immunization history:: Adult Immunizations up to date. - Social history:: Smoking status: Patient uses tobacco products, smokes one-half pack cigarettes per day. - Ebola Screening: : No symptoms or risks identified at this time. ROS: 20:30 Eyes: Negative for injury, pain, redness, and discharge, ENT: Negative for injury, jr8 pain, and discharge, Neck: Negative for injury, pain, and swelling, Cardiovascular: Negative for chest pain, palpitations, and edema, Abdomen/GI: Negative for abdominal pain, nausea, vomiting, diarrhea, and constipation, Back: Negative for injury and pain, Skin: Negative for injury, rash, and discoloration, Neuro: Negative for headache, weakness, numbness, tingling, and seizure. 20:30 Respiratory: Positive for dyspnea on exertion, shortness of breath, Negative for cough, sputum production, wheezing. 20:30 MS/extremity: Positive for pain, of the right foot and right leg. Exam: 21:49 Head/Face: Normocephalic, atraumatic. Eyes: Pupils equal round and reactive to light, jr8 extra-ocular motions intact. Lids and lashes normal. Conjunctiva and sclera are non-icteric and not injected. Cornea within normal limits. Periorbital areas with no swelling, redness, or edema. ENT: Nares patent. No nasal discharge, no septal abnormalities noted. Tympanic membranes are normal and external auditory canals are clear. Oropharynx with no redness, swelling, or masses, exudates, or evidence of obstruction, uvula midline. Mucous membranes moist. Neck: Trachea midline, no thyromegaly or masses palpated, and no cervical lymphadenopathy. Supple, full range of motion without nuchal rigidity, or vertebral point tenderness. No Meningismus. Chest/axilla: Normal chest wall appearance and motion. Nontender with no deformity. No lesions are appreciated. Cardiovascular: Regular rate and rhythm with a normal S1 and S2. No gallops, murmurs, or rubs. Normal PMI, no JVD. No pulse deficits. Respiratory: Lungs have equal breath sounds bilaterally, clear to auscultation and percussion. No rales, rhonchi or wheezes noted. No increased work of breathing, no retractions or nasal flaring. Abdomen/GI: Soft, non-tender, with normal bowel sounds. No distension or tympany. No guarding or rebound. No evidence of tenderness throughout. Back: No spinal tenderness. No costovertebral tenderness. Full range of motion. Skin: Warm, dry with normal turgor. Normal color with no rashes, no lesions, and no evidence of cellulitis. Neuro: Awake and alert, GCS 15, oriented to person, place, time, and situation. Cranial nerves II-XII grossly intact. Motor strength 5/5 in all extremities. Sensory grossly intact. Cerebellar exam normal. Normal gait. 21:49 : Male external genitalia: ulceration, of the scrotum is present, that is moderate-sized, with drainage. 21:49 Musculoskeletal/extremity: Patient has stitches in place around 1st , 4th, and 5th digits. no dehiscence of wound. Mild erythema to lateral foot. Diffuse bruising to dorsal right foot with swelling. No erythema extending past lateral foot. Decreased ROM due to pain and fractures from crush injury last week. Normal sensation present. 2+ pedal pulses present. No circumferential difference noted in his calves. Vital Signs: 18:34 BP 157 / 107; Pulse 97; Resp 28; Temp 98.2; Pulse Ox 100% on Non-rebreather mask; sv Weight 110.22 kg; Height 5 ft. 8 in. (172.72 cm); Pain 10/10; 19:07 BP 134 / 75; Pulse 91; Resp 18; Pulse Ox 100% on Non-rebreather mask; sv 18:34 Body Mass Index 36.95 (110.22 kg, 172.72 cm) sv MDM: 18:42 Patient medically screened. rust 21:51 Data reviewed: vital signs, nurses notes, lab test result(s), EKG, radiologic studies, rust CT scan, ultrasound. Data interpreted: Pulse oximetry: on room air is 100 %. Interpretation: normal. Counseling: I had a detailed discussion with the patient and/or guardian regarding: the historical points, exam findings, and any diagnostic results supporting the discharge/admit diagnosis, lab results, radiology results, the need for outpatient follow up, a family practitioner, a orthopedic surgeon. 06/18 18:42 Order name: Basic Metabolic Panel; Complete Time: 19:06/18 18:42 Order name: CBC with Diff; Complete Time: 19:09 06/18 18:42 Order name: LFT's; Complete Time: :27 06/18 18:42 Order name: Magnesium; Complete Time: :27 06/18 18:42 Order name: NT PRO-BNP; Complete Time: 19:27 8 06/18 18:42 Order name: PT-INR; Complete Time: 19:15 06/18 18:42 Order name: Troponin (emerg Dept Use Only); Complete Time: 19:27 06/18 18:42 Order name: XRAY Chest (1 view); Complete Time: 19:27 rust 06/18 18:48 Order name: Glucose, Ancillary Testing; Complete Time: 19:03 [facility] 06/18 19:28 Order name: CT Chest For PE Angio; Complete Time: 20:23 rust 06/18 20:51 Order name: US Extremity Venous Unilateral Ltd rust 06/18 20:51 Order name: Wound Culture rust 06/18 22:41 Order name: HSV CULTURE W/REFLEX TYPING [facility] 06/18 18:42 Order name: EKG; Complete Time: 18:43 rust 06/18 18:42 Order name: Cardiac monitoring; Complete Time: 18:49 rust 06/18 18:42 Order name: EKG - Nurse/Tech; Complete Time: 18:49 rust 06/18 18:42 Order name: IV Saline Lock; Complete Time: 18:49 rust 06/18 18:42 Order name: Labs collected and sent; Complete Time: 18:49 rust 06/18 18:42 Order name: O2 Per Protocol; Complete Time: 18:49 rust 06/18 18:42 Order name: O2 Sat Monitoring; Complete Time: 18:49 rust Administered Medications: 18:55 Drug: Zofran 4 mg Route: IVP; Site: right antecubital; sv 20:21 Follow up: Response: No adverse reaction ak1 18:57 Drug: Demerol 25 mg Route: IVP; Site: right antecubital; sv 20:21 Follow up: Response: No adverse reaction ak1 22:20 Drug: Demerol 25 mg Route: IVP; Site: right antecubital; ak1 22:25 Follow up: Response: No adverse reaction ak1 Point of Care Testing: Blood Glucose: 18:45 Blood Glucose: 153 mg/dL; sv Ranges: Critical Glucose Levels:Adult <50 mg/dl or >400 mg/dl <40 mg/dl or >180 mg/dl Disposition: 06/19 05:53 Co-signature as Attending Physician, Jens ESCOBAR I agree with the assessment and nuria plan of care. Disposition: 06/18/18 21:53 Discharged to Home. Impression: Local infection of the skin and subcutaneous tissue, unspecified, Pain in right foot. - Condition is Stable. - Discharge Instructions: Rash. - Medication Reconciliation Form, Thank You Letter, Antibiotic Education, Prescription Opioid Use form. - Follow up: Private Physician; When: 2 - 3 days; Reason: Recheck today's complaints, Continuance of care, Re-evaluation by your physician. - Problem is new. - Symptoms have improved. - Notes: Continue antibiotics clean scrotum daily with soap and water. Dab dry and cover to keep sterile and dry Follow up with orthopedics Signatures: Dispatcher [employer] Jessica Griggs, RN RN Jens Grande MD MD cha Roszak, Josh, PA PA jr8 Anna Hernández RN RN ak1 Corrections: (The following items were deleted from the chart) 06/18 22:42 21:53 06/18/2018 21:53 Discharged to Home. Impression: Local infection of the skin and ak1 subcutaneous tissue, unspecified; Pain in right foot. Condition is Stable. Forms are Medication Reconciliation Form, Thank You Letter, Antibiotic Education, Prescription Opioid Use. Follow up: Private Physician; When: 2 - 3 days; Reason: Recheck today's complaints, Continuance of care, Re-evaluation by your physician. Problem is new. Symptoms have improved. jr8
[2018-06-18 22:49] VITALS: BP 134/75; O2SAT 100
--- NOTE | 2018-06-19 07:29 | EKG ---
Test Date: 2018-06-18 Test Time: 18:48:04 [place] [employer]: JOSE MEASUREMENT RESULTS: Intervals: Rate: 90 WI: 174 QRSD: 98 QT: 396 QTc: 484 [place]: P: 42 WI: 174 QRS: 65 T: 136 INTERPRETIVE STATEMENTS: Normal sinus rhythm Nonspecific T wave abnormality Prolonged QT Abnormal ECG Compared to ECG 11/21/2017 14:12:26 Possible ischemia no longer present T-wave abnormality still present Electronically Signed On 06-19-18 07:27:38 CDT by Koko Menjivar
--- NOTE | 2018-06-19 07:31 | RAD REPORT ---
EXAM DESCRIPTION: US - Extremity Venous Uni Ltd - 06/18/2018 9:50 pm CLINICAL HISTORY: Leg pain and swelling COMPARISON: None. TECHNIQUE: Real-time sonographic evaluation of the right lower extremity deep venous systems was per formed. FINDINGS: Normal compressibility, flow augmentation, phasic flow and spontaneous flow are identified in the right lower extremity common femoral, superficial femoral, popliteal and posterior tibial vei ns. No intraluminal filling defects seen. IMPRESSION: No DVT in the right lower extremity.
[2018-06-22 18:49] LABS: HSV CULTURE W/REFLEX TYPING REPORT
== END 2018-06-18 22:42 | disposition home or self-care (01) ==
LOC: ER 18:37
DX: L08.9 Local infection of the skin and subcutaneous tissue, unspecified (principal); I10 Essential (primary) hypertension; F17.210 Nicotine dependence, cigarettes, uncomplicated; Z88.8 Allergy status to other drugs, medicaments and biological substances
CPT/HCPCS: 36415; 71045; 71275; 80048; 80076; 82962; 83735; 83880; 84484; 85025; 85610; 87070; 87205; 87252; 93005; 93971; 96374; 96375; 99285; J2175; J2405; Q9967

== ENCOUNTER 2018-09-18 09:33 | Emergency (ER) | payer OTHER ==
--- OUTSIDE RECORDS SUMMARY | 2018-09-18 09:36 | XMS REPORT | Clinical Summary ---
:1980 Author Organization [facility] Address [address] [place] [address] Care Team Providers Name Role Phone Asked, No Pcp Primary Care Provider Unavailable Allergies Active Allergy Reactions Severity Noted Date Comments Propoxyphene N-Acetaminophen Itching 07/08/2018 Medications Medication Sig Dispensed Refills Start Date End Date Status metoprolol Take 50 mg by 0 Active succinate XL mouth 2 (two) (TOPROL-XL) 50 mg times a day. 24 hr tablet dextroamphetamine-a Take 20 mg by 0 Active mphetamine mouth 2 (two) (ADDERALL) 20 mg times a day. tablet gabapentin Take 300 mg by 0 Active (NEURONTIN) 300 mg mouth 3 (three) capsule times a day. ibuprofen Take 600 mg by 0 Active (ADVIL,MOTRIN) 600 mouth every 8 MG tablet (eight) hours as needed for mild pain. naproxen sodium Take 220 mg by 0 Active (ALEVE) 220 MG mouth every 8 tablet (eight) hours as needed for mild pain. metFORMIN Take 500 mg by 0 Active (GLUCOPHAGE) 500 mg mouth 2 (two) tablet times a day with meals. collagenase Apply to wound 30 g 3 07/21/2018 Active (SANTYL) ointment daily with wet to dry dressing SANTYL ointment APPLY TOPICALLY 90 g 1 07/27/2018 Active DAILY. acetaminophen Take 325 mg by 0 Discontinued (TYLENOL) 325 MG mouth 3 (three) 8 tablet times a day as needed for fever. amoxicillin-pot Take 1 tablet 42 tablet 0 07/17/2018 clavulanate by mouth 2 8 (AUGMENTIN) 875-125 (two) times a mg per tablet day for 21 days. linezolid (ZYVOX) Take 1 tablet 42 tablet 0 07/17/2018 600 mg tablet (600 mg total) 8 by mouth 2 (two) times a day for 21 days. acetaminophen-codei Take 1 tablet 30 tablet 0 07/21/2018 ne (TYLENOL WITH by mouth every 8 CODEINE #3) 300-30 6 (six) hours mg per tablet as needed for moderate pain for up to 10 days. collagenase Apply topically 90 g 2 07/21/2018 (SANTYL) ointment daily for 30 8 days. Active Problems Problem Noted Date Open wound of right great toe 07/08/2018 Encounters Date Type Specialty Care Team Description 07/22/2018 Refill Podiatry Rubina Kenney DPM 07/21/2018 Office Visit Podiatry Rubina Kenney Open wound of right great toe, subsequent encounter (Primary Dx); Ozzy Rocha DPM Trauma complication, early, subsequent encounter 07/10/2018 Anesthesia Event General Surgery Scarlet Whaley, KRISTINE 07/10/2018 Surgery General Surgery Rubina Kenney INCISION AND Ozzy Rocha DPM DRAINAGE, RIGHT GREAT TOE OPEN FX 07/08/2018 - Hospital Encounter General Internal Pio Kelly Open wound of right great toe, initial encounter (Primary Dx); 07/17/2018 Medicine MD Rupert Cellulitis of great toe of right foot Michael Coker MD Korimilli, Vijay, MD 07/08/2018 Travel after 09/17/2017 Social History Tobacco Use Types Packs/Day Years Used Date Current Some Day Smoker Smokeless Tobacco: Never Used Alcohol Use Drinks/Week oz/Week Comments Yes ocassional Sex Assigned at Date Recorded Not on file Job Start Date Occupation Industry Not on file Not on file Not on file Travel History Travel Start Travel End No recent travel history available. Last Filed Vital Signs Vital Sign Reading Time Taken Blood Pressure 139/91 07/21/2018 8:55 AM [facility] Pulse 68 07/21/2018 8:55 AM [facility] Temperature 36.2 C (97.2 F) 07/17/2018 11:25 AM [facility] Respiratory Rate 18 07/17/2018 11:25 AM [facility] Oxygen Saturation 98% 07/17/2018 11:25 AM [facility] Inhaled Oxygen Concentration - - Weight 106 kg (234 lb) 07/08/2018 5:25 PM [facility] Height 172.7 cm (5' 8") 07/08/2018 5:06 PM [facility] Body Mass Index 35.58 07/08/2018 5:25 PM [facility] Plan of Treatment Health Maintenance Due Date Last Done Comments INFLUENZA VACCINE 03/25/2018 Procedures Procedure Name Priority Date/Time Associated Comments Diagnosis POC GLUCOSE Routine 07/17/2018 11:27 AM Results for this [facility] procedure are in the results section. POC GLUCOSE Routine 07/17/2018 7:35 AM Results for this [facility] procedure are in the results section. POC GLUCOSE Routine 07/16/2018 9:13 PM Results for this [facility] procedure are in the results section. POC GLUCOSE Routine 07/16/2018 5:17 PM Results for this [facility] procedure are in the results section. VANCOMYCIN LEVEL, Timed 07/16/2018 12:15 PM Results for this TROUGH [facility] procedure are in the results section. POC GLUCOSE Routine 07/16/2018 11:35 AM Results for this [facility] procedure are in the results section. POC GLUCOSE Routine 07/16/2018 7:22 AM Results for this [facility] procedure are in the results section. ESTIMATED GFR Routine 07/16/2018 4:59 AM Results for this [facility] procedure are in the results section. BASIC METABOLIC Routine 07/16/2018 4:59 AM Results for this PANEL [facility] procedure are in the results section. HC COMPLETE BLD Routine 07/16/2018 4:59 AM Results for this COUNT W/AUTO DIFF [facility] procedure are in the results section. POC GLUCOSE Routine 07/15/2018 9:47 PM Results for this [facility] procedure are in the results section. POC GLUCOSE Routine 07/15/2018 4:37 PM Results for this [facility] procedure are in the results section. POC GLUCOSE Routine 07/15/2018 11:36 AM Results for this [facility] procedure are in the results section. POC GLUCOSE Routine 07/15/2018 7:32 AM Results for this [facility] procedure are in the results section. POC GLUCOSE Routine 07/14/2018 9:19 PM Results for this [facility] procedure are in the results section. US DUPLEX VENOUS Routine 07/14/2018 5:40 PM Results for this LOWER EXTREMITY [facility] procedure are in RIGHT the results section. POC GLUCOSE Routine 07/14/2018 4:39 PM Results for this [facility] procedure are in the results section. POC GLUCOSE Routine 07/14/2018 11:51 AM Results for this [facility] procedure are in the results section. POC GLUCOSE Routine 07/14/2018 7:56 AM Results for this [facility] procedure are in the results section. ESTIMATED GFR Routine 07/14/2018 5:55 AM Results for this [facility] procedure are in the results section. CBC HEMOGRAM Routine 07/14/2018 5:55 AM Results for this [facility] procedure are in the results section. BASIC METABOLIC Routine 07/14/2018 5:55 AM Results for this PANEL [facility] procedure are in the results section. POC GLUCOSE Routine 07/13/2018 8:51 PM Results for this [facility] procedure are in the results section. POC GLUCOSE Routine 07/13/2018 5:24 PM Results for this [facility] procedure are in the results section. POC GLUCOSE Routine 07/13/2018 11:29 AM Results for this [facility] procedure are in the results section. CONSULT TO OSTOMY Routine 07/13/2018 10:14 AM CARE NURSE [facility] POC GLUCOSE Routine 07/13/2018 8:09 AM Results for this [facility] procedure are in the results section. ESTIMATED GFR Routine 07/13/2018 5:00 AM Results for this [facility] procedure are in the results section. CREATININE LEVEL Routine 07/13/2018 5:00 AM Results for this [facility] procedure are in the results section. POC GLUCOSE Routine 07/12/2018 8:40 PM Results for this [facility] procedure are in the results section. POC GLUCOSE Routine 07/12/2018 4:16 PM Results for this [facility] procedure are in the results section. POC GLUCOSE Routine 07/12/2018 12:03 PM Results for this [facility] procedure are in the results section. POC GLUCOSE Routine 07/12/2018 7:33 AM Results for this [facility] procedure are in the results section. VANCOMYCIN LEVEL, Timed 07/12/2018 4:10 AM Results for this TROUGH [facility] procedure are in the results section. POC GLUCOSE Routine 07/11/2018 9:16 PM Results for this [facility] procedure are in the results section. POC GLUCOSE Routine 07/11/2018 4:58 PM Results for this [facility] procedure are in the results section. POC GLUCOSE Routine 07/11/2018 11:39 AM Results for this [facility] procedure are in the results section. POC GLUCOSE Routine 07/11/2018 7:35 AM Results for this [facility] procedure are in the results section. ESTIMATED GFR Routine 07/11/2018 5:45 AM Results for this [facility] procedure are in the results section. MAGNESIUM LEVEL Routine 07/11/2018 5:45 AM Results for this [facility] procedure are in the results section. CBC HEMOGRAM Routine 07/11/2018 5:45 AM Results for this [facility] procedure are in the results section. BASIC METABOLIC Routine 07/11/2018 5:45 AM Results for this PANEL [facility] procedure are in the results section. POC GLUCOSE Routine 07/10/2018 9:19 PM Results for this [facility] procedure are in the results section. POC GLUCOSE Routine 07/10/2018 5:59 PM Results for this [facility] procedure are in the results section. POC GLUCOSE Routine 07/10/2018 4:47 PM Results for this [facility] procedure are in the results section. ANESTHESIA Routine 07/10/2018 4:14 PM INTUBATION [facility] Procedure Note - Robbin Harris CRNA - 07/10/2018 4:14 PM [facility] ANESTHESIA INTUBATION Date/Time: 07/10/2018 4:12 PM Performed by: Robbin Harris CRNA Authorized by: Ashok Joy MD Location: OR Anesthesiologist: Ashok Joy MD Resident/DR[employer]/AA: Robbin Harris CRNA Preoxygenated with 100% O2: Yes C-spine Precautions Maintained Throughout: Yes Mask Ventilation: Not attempted Final Airway Type: Supraglottic airway LMA Size: 5 Number of Attempts at Approach: 1 POC GLUCOSE Routine 07/10/2018 12:16 PM [facility] POC GLUCOSE Routine 07/10/2018 8:12 AM [facility] SMEAR REVIEW Routine 07/10/2018 4:00 AM [facility] PROTHROMBIN TIME WITH INR Routine 07/10/2018 4:00 AM [facility] ESTIMATED GFR Routine 07/10/2018 4:00 AM [facility] HC COMPLETE BLD COUNT W/AUTO Routine 07/10/2018 4:00 AM [facility] Results for this DIFF procedure are in the results section. BASIC METABOLIC PANEL Routine 07/10/2018 4:00 AM [facility] VANCOMYCIN LEVEL, TROUGH Timed 07/10/2018 4:00 AM [facility] POC GLUCOSE Routine 07/09/2018 9:47 PM [facility] POC GLUCOSE Routine 07/09/2018 4:43 PM [facility] POC GLUCOSE Routine 07/09/2018 11:31 AM [facility] POC GLUCOSE Routine 07/09/2018 7:31 AM [facility] ESTIMATED GFR Routine 07/09/2018 4:10 AM [facility] HEMOGLOBIN A1C Routine 07/09/2018 4:10 AM [facility] LACTIC ACID LEVEL Routine 07/09/2018 4:10 AM [facility] MAGNESIUM LEVEL Routine 07/09/2018 4:10 AM [facility] PHOSPHORUS LEVEL Routine 07/09/2018 4:10 AM [facility] HC COMPLETE BLD COUNT W/AUTO Routine 07/09/2018 4:10 AM [facility] Results for this DIFF procedure are in the results section. COMPREHENSIVE METABOLIC Routine 07/09/2018 4:10 AM [facility] Results for this PANEL procedure are in the results section. POC GLUCOSE Routine 07/09/2018 12:03 AM [facility] LACTIC ACID LEVEL, SEPSIS - Timed 07/08/2018 10:04 PM [facility] Results for this NOW AND REPEAT 2X EVERY 3 procedure are in the HOURS results section. MRI FOOT WO CONTRAST RIGHT Routine 07/08/2018 8:36 PM [facility] US DUPLEX ARTERIAL LOWER Routine 07/08/2018 7:17 PM [facility] Results for this EXTREMITY RIGHT procedure are in the results section. US DUPLEX VENOUS LOWER Routine 07/08/2018 7:10 PM [facility] Results for this EXTREMITY RIGHT procedure are in the results section. XR FOOT 3+ VW RIGHT STAT 07/08/2018 3:01 PM [facility] ESTIMATED GFR STAT 07/08/2018 2:59 PM [facility] LACTIC ACID LEVEL, SEPSIS - Timed 07/08/2018 2:59 PM [facility] Results for this NOW AND REPEAT 2X EVERY 3 procedure are in the HOURS results section. COMPREHENSIVE METABOLIC STAT 07/08/2018 2:59 PM [facility] Results for this PANEL procedure are in the results section. HC COMPLETE BLD COUNT W/AUTO STAT 07/08/2018 2:59 PM [facility] Results for this DIFF procedure are in the results section. BLOOD CULTURE, AEROBIC & Routine 07/08/2018 2:54 PM [facility] Results for this ANAEROBIC procedure are in the results section. BLOOD CULTURE, AEROBIC & Routine 07/08/2018 2:45 PM [facility] Results for this ANAEROBIC procedure are in the results section. ANAEROBIC CULTURE Routine 07/08/2018 2:40 PM [facility] GRAM STAIN Routine 07/08/2018 2:40 PM [facility] AEROBIC CULTURE Routine 07/08/2018 2:40 PM [facility] after 09/17/2017 Results POC glucose (07/17/2018 11:27 AM [facility])Only the most recent of36 resultswithin the time period is included. POC glucose 99 65 - 99 mg/dL [facility] Comment: HOSPITAL RN Notified Meter ID: [id number] Reed Cleaner: Andrea Fried Performing Organization Address City/[facility]/Zipcode Phone Number [facility] DEPARTMENT OF PATHOLOGY [address] [place] [address] Vancomycin level, trough (07/16/2018 12:15 PM [facility])Only the most recent of3 resultswithin the time period is included. Vancomycin, trough 12.5 10.0 - 20.0 ug/mL [facility] Comment: [facility] Therapeutic Ranges: Peak30.0 - 40.0 ug/mL Dgkhpb40.0 - 20.0 ug/mL Specimen Blood Performing Organization Address [facility] Phone Number [facility] DEPARTMENT OF PATHOLOGY [address] [place] [address] Estimated GFR (07/16/2018 4:59 AM [facility])Only the most recent of7 resultswithin the time period is included. Estimated GFR >=90 mL/min/1.73 m2 [facility] Comment: [facility] CatergoryUnitsInterpretation G1 >=90 Normal or high G2 60-89Mildly decreased [id number] to moderately decreased [id number] to severely decreased G4 15-29Severely decreased G5 <15Kidney failure The eGFR was calculated using the Chronic Kidney Disease Epidemiology Collaboration (CKD-EPI) equation. Interpretation is based on recommendations of the National Kidney Foundation-Kidney Disease Outcomes Quality Initiative (NKF-KDOQI) published in 2014. Specimen Plasma specimen Performing Organization Address City/State/Zipcode Phone Number [facility] DEPARTMENT OF PATHOLOGY [id number] [place] [address] AND GENOMIC MEDICINE [facility] [id number] [place] [address] HOSPITAL CBC with platelet and differential (07/16/2018 4:59 AM [facility])Only the most recent of4 resultswithin the time period is included. WBC 8.0 4.5 - 11.0 k/uL [facility] RBC 4.15 (L) 4.40 - 6.00 m/uL [facility] HGB 12.9 (L) 14.0 - 18.0 g/dL [facility] HCT 39.8 (L) 41.0 - 51.0 % [facility] MCV 95.9 82.0 - 100.0 fL [facility] MCH 31.1 27.0 - 34.0 pg [facility] MCHC 32.4 31.0 - 37.0 g/dL [facility] RDW - SD 41.4 37.0 - 55.0 fL [facility] MPV 10.8 6.9 - 11.0 fL [facility] Platelet count 212 150 - 400 K/uL [facility] Nucleated RBC 0.00 /100 WBC [facility] Neutrophils 56.8 39.0 - 69.0 % [facility] Lymphocytes 27.4 25.0 - 45.0 % [facility] Monocytes 12.8 (H) 0.0 - 10.0 % [facility] Eosinophils 2.1 0.0 - 5.0 % [facility] Basophils 0.5 0.0 - 1.0 % [facility] Immature granulocytes 0.4 0.0 - 1.0 % [facility] Specimen Blood Performing Organization Address City/[facility]/Zipcode Phone Number [facility] DEPARTMENT OF PATHOLOGY [address] [place] [address] Basic metabolic panel (07/16/2018 4:59 AM [facility])Only the most recent of4 resultswithin the time period is included. Sodium 138 135 - 148 mEq/L [facility] Potassium 4.2 3.5 - 5.0 mEq/L [facility] Chloride 101 98 - 112 mEq/L [facility] CO2 27 24 - 31 mEq/L [facility] Anion gap 10@ANIO 7 - 15 mEq/L [facility] BUN 15 6 - 20 mg/dL [facility] Creatinine 0.88 0.70 - 1.20 mg/dL [facility] Glucose 89 65 - 99 mg/dL [facility] Calcium 9.0 8.3 - 10.2 mg/dL [facility] Specimen Plasma specimen Performing Organization Address City/State/Zipcode Phone Number [facility] DEPARTMENT OF PATHOLOGY [address] [place] [address] Us duplex venous lower extremity (07/14/2018 5:40 PM [facility])Only the most recent of2 resultswithin the time period is included. Narrative Performed At EXAMINATION:US DUPLEX VENOUS LOWER EXTREMITY RIGHT RADIANT CLINICAL HISTORY:Leg swelling or painDVT suspected COMPARISON:None. TECHNIQUE:Grayscale, color Doppler, and spectral waveform analysis of the right lower extremity deep venous system was performed. The common femoral, superficial femoral, proximal deep femoral, greater saphenous, and popliteal veins were evaluated. The calf veins were also evaluated. FINDINGS: The right common femoral, superficial femoral, and popliteal veins are compressible. They demonstrate normal venous waveforms and response to augmentation. There is flow in the visualized calf veins. 2.3 x 1 x 2 cm right inguinal lymph node IMPRESSION: No evidence of DVT. Right inguinal lymph nodes, likely reactive. [facility]-[id number] Procedure Note Hm Interface, Radiology Results Incoming - 07/14/2018 5:50 PM [facility] EXAMINATION: US DUPLEX VENOUS LOWER EXTREMITY RIGHT CLINICAL HISTORY: Leg swelling or pain DVT suspected COMPARISON: None. TECHNIQUE: Grayscale, color Doppler, and spectral waveform analysis of the right lower extremity deep venous system was performed. The common femoral, superficial femoral, proximal deep femoral, greater saphenous, and popliteal veins were evaluated. The calf veins were also evaluated. FINDINGS: The right common femoral, superficial femoral, and popliteal veins are compressible. They demonstrate normal venous waveforms and response to augmentation. There is flow in the visualized calf veins. 2.3 x 1 x 2 cm right inguinal lymph node IMPRESSION: No evidence of DVT. Right inguinal lymph nodes, likely reactive. [facility]-[id number] Performing Organization Address City/State/Zipcode Phone Number [employer] [address] [place] [address] CBC hemogram (07/14/2018 5:55 AM [facility])Only the most recent of2 resultswithin the time period is included. WBC 7.9 4.5 - 11.0 k/uL [facility] RBC 4.31 (L) 4.40 - 6.00 m/uL [facility] HGB 13.7 (L) 14.0 - 18.0 g/dL [facility] HCT 41.2 41.0 - 51.0 % [facility] MCV 95.6 82.0 - 100.0 fL [facility] MCH 31.8 27.0 - 34.0 pg [facility] MCHC 33.3 31.0 - 37.0 g/dL [facility] RDW - SD 41.6 37.0 - 55.0 fL [facility] MPV 10.9 6.9 - 11.0 fL [facility] Platelet count 212 150 - 400 K/uL [facility] Nucleated RBC 0.00 /100 WBC [facility] Specimen Blood Performing Organization Address City/[facility]/Zipcode Phone Number [facility] DEPARTMENT OF PATHOLOGY [address] [place] [address] AND GENOMIC MEDICINE [facility] [address] [place] [address] HOSPITAL Creatinine level (07/13/2018 5:00 AM [facility]) Creatinine 0.92 0.70 - 1.20 mg/dL [facility] Specimen Plasma specimen Performing Organization Address City/[facility] Cent[facility] Phone Number [facility] DEPARTMENT OF PATHOLOGY [phone] [place] [address] Magnesium level (07/11/2018 5:45 AM [facility]ORE)Only the most recent of2 resultswithin the time period is included. Magnesium 2.1 1.6 - 2.6 mg/dL [facility] Specimen Plasma specimen Performing Organization Address [facility] Centercode Phone Number [facility] DEPARTMENT OF PATHOLOGY [address] [place] [address] Smear review (07/10/2018 4:00 AM [facility]) Platelet slide review Sunitha adequate [facility] Anisocytosis Moderate [facility] Spherocytes Occasional [facility] Enlarged platelets Moderate (A) [facility] Giant platelets Occasional [facility] Performing Organization Address [facility] Phone Number [facility] DEPARTMENT OF PATHOLOGY [address] [place] [address] Prothrombin time with INR (07/10/2018 4:00 AM [facility]) Prothrombin time 13.2 11.5 - 14.5 sec [facility] INR 1.0 [facility] The International Normalized Ratio (INR) is a therapeutic monitoring tool for patients who are stable on oral anticoagulant therapy. An INR of 2.0-3.0 is suggested for deep vein thrombosis/pulmonary embolism. Specimen Blood Performing Organization Address City/[facility] Cent[facility]ode Phone Number [facility] DEPARTMENT OF PATHOLOGY [address] [place] [address] Phosphorus level (07/09/2018 4:10 AM [facility]ORE) Phosphorus 3.6 2.4 - 4.5 mg/dL [facility] Specimen Plasma specimen Performing Organization Address City/[facility]/Zipcode Phone Number [facility] DEPARTMENT OF PATHOLOGY [address] [place] [address] Lactic acid level (07/09/2018 4:10 AM [facility]ORE) Lactic acid 1.5 0.5 - 2.2 mmol/L [facility] Specimen Plasma specimen Performing Organization Address City/[facility]/Zipcode Phone Number [facility] DEPARTMENT OF PATHOLOGY [address] [place] [address] Hemoglobin A1c (07/09/2018 4:10 AM [facility]ORE) Hemoglobin A1C 8.1 (H) 4.0 - 6.0 % [facility] Comment: HOSPITAL Less than 6% - Goal of therapy for Type II Diabetes Less than 7%-Goal of therapy for Type I Diabetes Less than 8%-Acceptable control for Type I or Type II Diabetes Greater than 8%-Unacceptable control; action indicated. ([id number]) Specimen Blood Performing Organization Address City/[facility] Centercode Phone Number [facility] DEPARTMENT OF PATHOLOGY [address] [place] [address] Comprehensive metabolic panel (07/09/2018 4:10 AM [facility]ORE)Only the most recent of2 resultswithin the time period is included. Sodium 134 (L) 135 - 148 mEq/L [facility] Potassium 3.7 3.5 - 5.0 mEq/L [facility] Chloride 99 98 - 112 mEq/L [facility] CO2 24 24 - 31 mEq/L [facility] Anion gap 11@ANIO 7 - 15 mEq/L [facility] BUN 10 6 - 20 mg/dL [facility] Creatinine 0.63 (L) 0.70 - 1.20 mg/dL [facility] Glucose 131 (H) 65 - 99 mg/dL [facility] Calcium 8.8 8.3 - 10.2 mg/dL [facility] Protein 6.7 6.3 - 8.3 g/dL [facility] Albumin 3.9 3.5 - 5.0 g/dL [facility] A/G ratio 1.4 0.7 - 3.8 [facility] Alkaline phosphatase 54 40 - 129 U/L [facility] AST 17 10 - 50 U/L [facility] ALT 25 5 - 50 U/L [facility] Total bilirubin 0.6 0.2 - 1.2 mg/dL [facility] [facility] Specimen Plasma specimen Performing Organization Address [facility] Phone Number [facility] DEPARTMENT OF PATHOLOGY [address] [place] [address] AND GENOM[address] Lactic acid level, SEPSIS - Now and repeat 2x every 3 hours (07/08/2018 10:04 PM [facility]ATOR STORE)Only the most recent of2 resultswithin the time period is included. Lactic acid 1.8 0.5 - 2.2 mmol/L [facility] Specimen Plasma specimen Performing Organization Address [facility] Phone Number [facility] DEPARTMENT OF PATHOLOGY [address] [place] [address] [address] GEN[address] MRI Foot Wo Contrast Right (07/08/2018 8:36 PM DECORATOR STORE) Narrative Performed At MRI FOOT WO CONTRAST RIGHT RADIANT CLINICAL INDICATION:Crush injury TECHNIQUE:Multisequence multiplanar MR imaging of the right foot was performed without gadolinium contrast. COMPARISON:None. Radiograph 7 the same day are reviewed. FINDINGS: BONES:Corresponding with radiographs, there are acute fractures of the proximal phalanges of the first and second digits with mild displacement. There is intra-articular extension of the first phala ngeal joint to the interphalangeal joint level without significant cortical offset at the articulation. Other bones of the foot are intact without fracture. Hallux valgus deformity is noted JOINTS:No effusion or periarticular inflammatory changes. TENDONS:Visualized flexor and extensor tendons of the foot are unremarkable. SOFT TISSUES:There is soft tissue swelling over the dorsum of the foot as well as around the first and second metatarsal fractures with associated hemorrhage. IMPRESSION: Mildly displaced fractures of the first and second proximal phalanges as described. Thank you for allowing us to participate in the care of your patient. [facility]-[id number] Procedure Note Interface, Radiology Results Incoming - 07/08/2018 9:04 PM [facility]ATOR STORE MRI FOOT WO CONTRAST RIGHT CLINICAL INDICATION: Crush injury TECHNIQUE: Multisequence multiplanar MR imaging of the right foot was performed without gadolinium contrast. COMPARISON: None. Radiograph 7 the same day are reviewed. FINDINGS: BONES: Corresponding with radiographs, there are acute fractures of the proximal phalanges of the first and second digits with mild displacement. There is intra-articular extension of the first phalangeal joint to the interphalangeal joint level without significant cortical offset at the articulation. Other bones of the foot are intact without fracture. Hallux valgus deformity is noted JOINTS: No effusion or periarticular inflammatory changes. TENDONS: Visualized flexor and extensor tendons of the foot are unremarkable. SOFT TISSUES: There is soft tissue swelling over the dorsum of the foot as well as around the first and second metatarsal fractures with associated hemorrhage. IMPRESSION: Mildly displaced fractures of the first and second proximal phalanges as described. Thank you for allowing us to participate in the care of your patient. [facility]-[id number] Performing Organization Address City/State/Zipcode Phone Number [facility] [address] [place] [address] duplex arterial lower extremity (07/08/2018 7:17 PM DECORATOR STORE) Narrative Performed At [facility] Examination:US DUPLEX ARTERIAL LOWER EXTREMITY RIGHT Clinical history:"Injury" Comparison:There are no prior studies for comparison. Technique:The right common femoral, femoral, popliteal, posterior tibial, anterior tibial, and dorsalis pedis arteries were evaluated using real-time B-mode grayscale, Doppler spectral analysis, and Doppler color flow imaging. IMPRESSION: Right lower extremity:Within the named arteries of the right lower extremity, comment.If a more definitive evaluation is required, please consider catheter-directed arteriography. Findings: Peak systolic arterial velocities are as follows (in cm/s): Right leg: Common femoral:154 Femoral: Proximal: 96 Mid: 106 Distal:9 4 Popliteal: Proximal:50 Mid: 62 Distal: 81 Posterior tibial: Proximal:65 Mid: 92 Distal:7 3 Anterior tibial: Proximal: 46 Mid: 60 Distal:7 4 Dorsalis pedis:60 Right leg, arterial DOPPLER WAVEFORMS: Common femoral: Triphasic Femoral: Proximal: Triphasic Mid: Triphasic Distal: Triphasic Popliteal: Proximal: Triphasic Mid: Triphasic Distal: Triphasic Posterior tibial: Proximal: Triphasic Mid: Triphasic Distal: Triphasic Anterior tibial: Proximal: Triphasic Mid: Triphasic Distal: Triphasic Dorsalis pedis: Triphasic Thank you for allowing us to participate in the care of your patient. [id number] Procedure Note Hm Interface, Radiology Results Incoming - 07/08/2018 7:56 PM [facility]ATOR STORE Examination: US DUPLEX ARTERIAL LOWER EXTREMITY RIGHT Clinical history: "Injury" Comparison: There are no prior studies for comparison. Technique: The right common femoral, femoral, popliteal, posterior tibial, anterior tibial, and dorsalis pedis arteries were evaluated using real-time B- mode grayscale, Doppler spectral analysis, and Doppler color flow imaging. IMPRESSION: Right lower extremity: Within the named arteries of the right lower extremity , comment. If a more definitive evaluation is required, please consider catheter-directed arteriography. Findings: Peak systolic arterial velocities are as follows (in cm/s): Right leg: Common femoral: 154 Femoral: Proximal: 96 Mid: 106 Distal: 94 Popliteal: Proximal: 50 Mid: 62 Distal: 81 Posterior tibial: Proximal: 65 Mid: 92 Distal: 73 Anterior tibial: Proximal: 46 Mid: 60 Distal: 74 Dorsalis pedis: 60 Right leg, arterial DOPPLER WAVEFORMS: Common femoral: Triphasic Femoral: Proximal: Triphasic Mid: Triphasic Distal: Triphasic Popliteal: Proximal: Triphasic Mid: Triphasic Distal: Triphasic Posterior tibial: Proximal: Triphasic Mid: Triphasic Distal: Triphasic Anterior tibial: Proximal: Triphasic Mid: Triphasic Distal: Triphasic Dorsalis pedis: Triphasic Thank you for allowing us to participate in the care of your patient. [facility]-[id number] Performing Organization Address [facility] Phone Number [facility] [address] [place] [address] XR Foot 3+ Vw Right (07/08/2018 3:01 PM DECORATOR STORE) Narrative Performed At EXAMINATION:XR FOOT 3VW RIGHT RADIANT CLINICAL HISTORY:right foot wound---right great toe r o osteomyelitis COMPARISON:None. IMPRESSION: There are fractures of the proximal phalanx of the first and second toes. The first toe fracture extends into the interphalangeal joint. No extension or malalignment at the metatarsal-phalangeal joint is noted. [facility]-[id number] Procedure Note Interface, Radiology Results Incoming - 07/08/2018 3:15 PM DECORATOR STORE EXAMINATION: XR FOOT 3 VW RIGHT CLINICAL HISTORY: right foot wound---right great toe r o osteomyelitis COMPARISON: None. IMPRESSION: There are fractures of the proximal phalanx of the first and second toes. The first toe fracture extends into the interphalangeal joint. No extension or malalignment at the metatarsal-phalangeal joint is noted. [facility]-[id number] Performing Organization Address [facility] Phone Number [facility] [address] [place] [address] Blood culture, aerobic & anaerobic (07/08/2018 2:54 PM DECORATOR STORE)Only the most recent of2 resultswithin the time period is included. Blood culture isolate No growth after 5 days of incubation. [facility] Comment: HOSPITAL Specimen Information Specimen Source: Blood Specimen Site: Hand, left Specimen Blood - Hand, left Performing Organization Address City/[facility]/Zipcode Phone Number [facility] DEPARTMENT OF PATHOLOGY AND [address] [place] [id number] GENOMIC MEDICINE [address] [address] Aerobic culture (07/08/2018 2:40 PM DECORATOR STORE) Aerobic culture isolate Escherichia coli [facility] , susceptibility to follow (A) Comment: Specimen Information Specimen Source: Wound Specimen Site: Toe Aerobic culture isolate Staphylococcus, coagulase negative [facility] , susceptibility to follow (A) Specimen Wound - Toe Organism Antibiotic Method Susceptibility Escherichia coli Ampicillin MELVIN <=2 mcg/mL: Susceptible Escherichia coli Amoxicillin/Clavulanate MELVIN 4/2 mcg/mL: Susceptible Escherichia coli Amikacin MELVIN <=4 mcg/mL: Susceptible Escherichia coli Aztreonam MELVIN <=1 mcg/mL: Susceptible Escherichia coli Ceftazidime MELVIN <=0.5 mcg/mL: Susceptible Escherichia coli Ciprofloxacin MELVIN >2 mcg/mL: Resistant Escherichia coli Ceftriaxone MELVIN <=0.5 mcg/mL: Susceptible Escherichia coli Cefuroxime Sodium MELVIN <=4 mcg/mL: Susceptible Escherichia coli Cefazolin MELVIN 2 mcg/mL: Susceptible Escherichia coli Cefepime MELVIN <=0.5 mcg/mL: Susceptible Escherichia coli Cefoxitin MELVIN <=4 mcg/mL: Susceptible Escherichia coli Gentamicin MELVIN 2 mcg/mL: Susceptible Escherichia coli Imipenem MELVIN <=0.25 mcg/mL: Susceptible Escherichia coli Levofloxacin MELVIN >4 mcg/mL: Resistant Escherichia coli Meropenem MELVIN <=0.125 mcg/mL: Susceptible Escherichia coli Tobramycin MELVIN 2 mcg/mL: Susceptible Escherichia coli Ampicillin/Sulbactam MELVIN 2/1 mcg/mL: Susceptible Escherichia coli Trimethoprim/Sulfamethoxa MELVIN >2/38 mcg/mL: Resistant zole Escherichia coli Tetracycline MELVIN <=1 mcg/mL: Susceptible Escherichia coli Piperacillin/Tazobactam MELVIN <=2/4 mcg/mL: Susceptible Escherichia coli Ertapenem MELVIN <=0.125 mcg/mL: Susceptible Escherichia coli Tigecycline MELVIN <=0.5 mcg/mL: Susceptible Staphylococcus coagulase Ampicillin MELVIN mcg/mL: Resistant negative Staphylococcus coagulase Clindamycin MELVIN >2 mcg/mL: Resistant negative Staphylococcus coagulase Erythromycin MELVIN >4 mcg/mL: Resistant negative Staphylococcus coagulase Linezolid MELVIN <=1 mcg/mL: Susceptible negative Staphylococcus coagulase Minocycline MELVIN 4 mcg/mL: Susceptible negative Staphylococcus coagulase Oxacillin MELVIN >1 mcg/mL: Resistant negative Staphylococcus coagulase Penicillin G MELVIN >1 mcg/mL: Resistant negative Staphylococcus coagulase Rifampin MELVIN <=0.5 mcg/mL: Susceptible negative Staphylococcus coagulase Tetracycline MELVIN >8 mcg/mL: Resistant negative Staphylococcus coagulase Vancomycin MELVIN <=0.5 mcg/mL: Susceptible negative Staphylococcus coagulase Trimethoprim/Sulfamethoxa MELVIN >2/38 mcg/mL: Resistant negative zole Performing Organization Address City/[facility] Phone Number [facility] DEPARTMENT OF PATHOLOGY AND [address] [place] [id number] [place] [address] Gram stain (07/08/2018 2:40 PM DECORATOR STORE) Gram stain isolate No WBC's [facility] Many Gram positive cocci in pairs Many Gram negative rods Comment: Specimen Information Specimen Source: Wound Specimen Site: Toe Specimen Wound - Toe Performing Organization Address [facility] Phone Number [facility] DEPARTMENT OF PATHOLOGY AND [address] [place] [address] Anaerobic culture (07/08/2018 2:40 PM DECORATOR STORE) Anaerobic culture isolate Prevotella bivia (A) [facility] Comment: Specimen Information Specimen Source: Wound Specimen Site: Toe Specimen Wound - Toe Performing Organization Address [facility] Phone Number [facility] DEPARTMENT OF PATHOLOGY AND [address] [place], [place] [phone] after 09/17/2017 Insurance Payer Benefit Plan / Group Subscriber ID Type Phone Address [employer] xxxxxxxxxxxxxx Workers Comp Guarantor Name Account Type Relation to Date of Phone Billing Patient Address [id number] Workers Comp Employer [birth year]/25/1901 [address] [facility] [id number] Advance Directives Patient has advance care planning documents on file. For more information, please contact:[place] [phone]
[2018-09-18] MEDS ORDERED: MORPHINE 4 MG/ML SYR ONE ×2 (10:53→13:03)
[2018-09-18] MEDS ORDERED: ONDANSETRON 4 MG/2 ML VIAL ONE (10:53)
[2018-09-18 11:11] LABS: Absolute Lymphocytes (CBC) 2.6 K/uL (0.7-4.9); Absolute Monocytes 0.9 K/uL (0.1-1.3); Absolute Neutrophil 5.9 K/uL (1.8-8.0); Basophils % 0.6 % (0-1.3); Hematocrit 45.5 % (39.6-49.0); Monocytes % 9.4 % (3.3-12.3); RBC Red Blood Cell Count 4.98 M/uL (4.33-5.43)
[2018-09-18 11:19] LABS: ALT/SGPT 40 U/L (12-78); AST/SGOT 18 U/L (15-37); Albumin 3.9 g/dL (3.4-5.0); Alkaline Phosphatase 66 U/L (45-117); BUN Blood Urea Nitrogen 16 mg/dL (7-18); Bicarbonate 25 mmol/L (21-32); Bilirubin Total 0.4 mg/dL (0.2-1.0); Glucose Level 162 mg/dL (74-106); Protein, Total 7.3 g/dL (6.4-8.2); Sodium Level 137 mmol/L (136-145)
--- NOTE | 2018-09-18 11:35 | RAD REPORT ---
EXAM DESCRIPTION: RAD - Foot Right 3 View - 09/18/2018 11:04 am CLINICAL HISTORY: Right foot pain FINDINGS: Interval healing of fractures involving the first and second proximal phalanges has occurr ed. No dislocation noted. No bony destructive lesion is visualized
--- NOTE | 2018-09-18 12:52 | ER ---
Nurse's Notes [facility] Name: Brett Kramer Age: 38 yrs Sex: Male : 1980 Arrival Date: 09/18/2018 Time: 09:37 Bed 13 Private MD: Omari Thao E Diagnosis: Pain in right foot Presentation: 09/18 09:55 Presenting complaint: Patient states: Being seen in wound healing for wound to R foot, ss toe. Pt reports that he has had increased pain over the past few days and has also noticed a foul odor. Transition of care: patient was not received from another setting of care. Onset of symptoms was May 2018. Risk Assessment: Do you want to hurt yourself or someone else? Patient reports no desire to harm self or others. Initial Sepsis Screen: Does the patient meet any 2 criteria? HR > 90 bpm. Does the patient have a suspected source of infection? Yes: Skin breakdown/wound. Care prior to arrival: None. 09:55 Method Of Arrival: Ambulatory ss 09:55 Acuity: CLAIRE 3 ss Historical: - Allergies: 09:58 Cipro; ss - PMHx: 09:58 Hypertension; PE; ss 09:59 Diabetes - NIDDM; ss - PSHx: 09:58 shoulder - right; wrist - right; ss - Immunization history:: Adult Immunizations up to date. - Social history:: Smoking status: Patient/guardian denies using tobacco, the patient reports quitting approximately .25 years ago. - Ebola Screening: : Patient denies exposure to infectious person Patient denies travel to an Ebola-affected area in the 21 days before illness onset. Screenin:50 Abuse screen: Denies threats or abuse. Denies injuries from another. Nutritional aj1 screening: No deficits noted. Tuberculosis screening: No symptoms or risk factors identified. 14:26 Fall Risk None identified. aj1 Assessment: 10:50 General: Appears in no apparent distress. uncomfortable, Behavior is calm, cooperative, aj1 appropriate for age. Pain: Complains of pain in right foot Pain currently is 8 out of 10 on a pain scale. Neuro: Level of Consciousness is awake, alert, obeys commands. Cardiovascular: Patient's skin is warm and dry. Respiratory: Airway is patent Respiratory effort is even, unlabored, Respiratory pattern is regular, symmetrical. GI: No signs and/or symptoms were reported involving the gastrointestinal system. : No signs and/or symptoms were reported regarding the genitourinary system. EENT: No signs and/or symptoms were reported regarding the EENT system. Derm: Wound noted right foot Other: Patient reports smelling a foul odor from wound, increased pain. Musculoskeletal: No signs and/or symptoms reported regarding the musculoskeletal system. Circulation, motion, and sensation intact. 11:41 Reassessment: Patient appears in no apparent distress at this time. No changes from aj1 previously documented assessment. Patient and/or family updated on plan of care and expected duration. Pain level reassessed. Patient is alert, oriented x 3, equal unlabored respirations, skin warm/dry/pink. 12:35 Reassessment: Patient states that he pain has come back and now its worse. Notified Drew Jesus NP. Order received. 13:15 Reassessment: Discharge pending Drew Jesus seeing patient to discuss results. aj1 13:30 Reassessment: Drew Jesus NP at bedside. Patient states that his pain has decreased aj1 some, but he still is in a lot of pain. Order received to hold discharge and give Toradol, then re-evaluate for adequate pain relief. 14:24 Reassessment: Patient states his pain has decreased a little more, but he is still aj1 hurting. Notified Drew Jesus NP. Patient was advised to take his normal home pain medications and follow up with his surgeon. Wound to right foot was covered with 2x2 and wrapped loosely with Coban. Vital Signs: 09:59 BP 173 / 107; Pulse 99; Resp 17; Temp 98.4(O); Pulse Ox 100% on R/A; Weight 110.22 kg; ss Height 5 ft. 8 in. (172.72 cm); Pain 8/10; 10:57 BP 154 / 106; Pulse 99; Resp 16; Pulse Ox 99% on R/A; aj1 11:41 BP 158 / 90; Pulse 97; Resp 18; Pulse Ox 97% on R/A; aj1 12:51 BP 131 / 71; Pulse 94; Resp 18; Pulse Ox 96% on R/A; aj1 13:31 BP 117 / 64; Pulse 102; Resp 18; Pulse Ox 98% on R/A; aj1 14:25 BP 145 / 86; Pulse 92; Resp 18; Pulse Ox 97% on R/A; aj1 09:59 Body Mass Index 36.95 (110.22 kg, 172.72 cm) ED Course: 09:37 Patient arrived in ED. sb2 09:37 Omari Thao MD is Private Physician. sb2 09:55 Arnaud Jesus [facility]. pm1 09:55 John Paul Durán MD is Attending Physician. pm1 09:57 Triage completed. ss 09:59 Arm band placed on right wrist. ss 10:30 Shazia Fernandez, RN is Primary Nurse. aj1 10:45 Initial lab(s) drawn, by mt, sent to lab. Inserted saline lock: 20 gauge in right dh3 wrist, using aseptic technique. Blood collected. 10:50 Patient has correct armband on for positive identification. Bed in low position. Call aj1 light in reach. Side rails up X 1. 10:50 No provider procedures requiring assistance completed. aj1 12:51 Juanjose Smith DPM is Referral Physician. pm1 14:26 IV discontinued, intact, bleeding controlled, No redness/swelling at site. Pressure aj1 dressing applied. Administered Medications: 10:57 Drug: morphine 4 mg Route: IVP; Site: right antecubital; aj1 12:56 Follow up: Response: No adverse reaction aj1 10:57 Drug: Zofran 4 mg Route: IVP; Site: right antecubital; aj1 12:56 Follow up: Response: No adverse reaction aj1 12:56 Drug: morphine 4 mg Route: IVP; Site: right antecubital; aj1 13:38 Follow up: Response: No adverse reaction aj1 13:38 Drug: TORadol 30 mg Route: IVP; Site: right antecubital; aj1 14:25 Follow up: Response: No adverse reaction aj1 Outcome: 12:52 Discharge ordered by . pm1 14:26 Discharged to home ambulatory. aj1 14:26 Condition: good 14:26 Discharge instructions given to patient, Instructed on discharge instructions, follow up and referral plans. Demonstrated understanding of instructions, follow-up care. 14:27 Patient left the ED. aj1 Signatures: Shazia Fernandez RN RN aj1 Loren Peter RN RN Arnaud Jesus NP [employer] pm1 Soniya Mattson dh3 Jonny, Charlene sb2
--- NOTE | 2018-09-18 12:52 | EDPHYS ---
Physician Documentation [facility] Name: Brett Kramer Age: 38 yrs Sex: Male : 1980 Arrival Date: 09/18/2018 Time: 09:37 Bed 13 Private MD: Omari Thao E ED Physician John Paul Durán HPI: 09/18 10:30 This 38 yrs old Male presents to ER via Ambulatory with complaints of Right pm1 Foot Pain. 10:30 The patient presents with pain. The patient presents with pain, that is chronic. The pm1 complaints affect the right foot. Context: resulted from a chronic condition, the patient can fully bear weight, the patient is able to ambulate, Problem is a result from a previous injury: Yes. Crush injury May of last year. Modifying factors: The symptoms are alleviated by nothing. the symptoms are aggravated by nothing. Associated signs and symptoms: Pertinent negatives numbness, tingling, discharge, drainage. Treatment prior to arrival includes: prescription medications, hydrocodone. Severity of symptoms: in the emergency department the symptoms are actually worse. The patient has not recently seen a physician, has an appointment scheduled, with Dr. Smith on Friday. Patient presents with complaint of right great toe pain. Patient sustained a crush injury to right first and second toe in May of last year with a resulting chronic wound to right great toe. Patient's right great toe wound is being managed by Dr. Smith at the wound care center. He is currently taking Cipro based on a wound culture. No drainage or redness present from right great toe wounds. No fever or chills. Currently taking hydrocodone 10-325 for pain. Historical: - Allergies: 09:58 Cipro; ss - PMHx: 09:58 Hypertension; PE; ss 09:59 Diabetes - NIDDM; ss - PSHx: 09:58 shoulder - right; wrist - right; ss - Immunization history:: Adult Immunizations up to date. - Social history:: Smoking status: Patient/guardian denies using tobacco, the patient reports quitting approximately .25 years ago. - Ebola Screening: : Patient denies exposure to infectious person Patient denies travel to an Ebola-affected area in the 21 days before illness onset. ROS: 10:30 Constitutional: Negative for fever, chills, and weight loss, Eyes: Negative for injury, pm1 pain, redness, and discharge, ENT: Negative for injury, pain, and discharge, Neck: Negative for injury, pain, and swelling, Cardiovascular: Negative for chest pain, palpitations, and edema, Respiratory: Negative for shortness of breath, cough, wheezing, and pleuritic chest pain, Abdomen/GI: Negative for abdominal pain, nausea, vomiting, diarrhea, and constipation, Back: Negative for injury and pain. 10:30 Neuro: Negative for headache, weakness, numbness, tingling, and seizure. 10:30 MS/extremity: Positive for pain, of the right first toe, Negative for decreased range of motion, deformity. 10:30 Skin: Negative for abscesses, cellulitis, drainage from wound. Exam: 10:30 Constitutional: This is a well developed, well nourished patient who is awake, alert, pm1 and in no acute distress. Head/Face: Normocephalic, atraumatic. Chest/axilla: Normal chest wall appearance and motion. Nontender with no deformity. No lesions are appreciated. Cardiovascular: Regular rate and rhythm with a normal S1 and S2. No gallops, murmurs, or rubs. Normal PMI, no JVD. No pulse deficits. Respiratory: Lungs have equal breath sounds bilaterally, clear to auscultation and percussion. No rales, rhonchi or wheezes noted. No increased work of breathing, no retractions or nasal flaring. Abdomen/GI: Soft, non-tender, with normal bowel sounds. No distension or tympany. No guarding or rebound. No evidence of tenderness throughout. Back: No spinal tenderness. No costovertebral tenderness. Full range of motion. 10:30 MS/ Extremity: Pulses equal, no cyanosis. Neurovascular intact. Full, normal range of motion. 10:30 Skin: Appearance: normal except for affected area, Wound recheck: Well healing wound present to right great toe without any signs of cellulitis: No discharge or drainage, no redness or warmth. No swelling. . 10:30 Neuro: Orientation: is normal, Motor: is normal, moves all fours. Vital Signs: 09:59 BP 173 / 107; Pulse 99; Resp 17; Temp 98.4(O); Pulse Ox 100% on R/A; Weight 110.22 kg; ss Height 5 ft. 8 in. (172.72 cm); Pain 8/10; 10:57 BP 154 / 106; Pulse 99; Resp 16; Pulse Ox 99% on R/A; aj1 11:41 BP 158 / 90; Pulse 97; Resp 18; Pulse Ox 97% on R/A; aj1 12:51 BP 131 / 71; Pulse 94; Resp 18; Pulse Ox 96% on R/A; aj1 13:31 BP 117 / 64; Pulse 102; Resp 18; Pulse Ox 98% on R/A; aj1 14:25 BP 145 / 86; Pulse 92; Resp 18; Pulse Ox 97% on R/A; aj1 09:59 Body Mass Index 36.95 (110.22 kg, 172.72 cm) ss MDM: 10:15 Patient medically screened. pm1 12:49 Data reviewed: vital signs. Data interpreted: Pulse oximetry: on room air is 97 %. pm1 Interpretation: normal. Counseling: I had a detailed discussion with the patient and/or guardian regarding: the historical points, exam findings, and any diagnostic results supporting the discharge/admit diagnosis, lab results, radiology results, the need for outpatient follow up, for definitive care, a embedded developer, Wound care clinic, to return to the emergency department if symptoms worsen or persist or if there are any questions or concerns that arise at home. 09/18 10:30 Order name: CBC with Diff pm09/18 10:30 Order name: CMP pm09/18 10:30 Order name: Foot Right 3 View XRAY pm1 09/18 11:16 Order name: CBC with Automated Diff; Complete Time: 11:34 EDAK 09/18 11:20 Order name: Comprehensive Metabolic Panel; Complete Time: 11:34 EDAK 09/18 11:37 Order name: RAD; Complete Time: 11:52 EDAK 09/18 10:22 Order name: IV Saline Lock; Complete Time: 10:49 pm1 Administered Medications: 10:57 Drug: morphine 4 mg Route: IVP; Site: right antecubital; aj1 12:56 Follow up: Response: No adverse reaction aj1 10:57 Drug: Zofran 4 mg Route: IVP; Site: right antecubital; aj1 12:56 Follow up: Response: No adverse reaction aj1 12:56 Drug: morphine 4 mg Route: IVP; Site: right antecubital; aj1 13:38 Follow up: Response: No adverse reaction aj1 13:38 Drug: TORadol 30 mg Route: IVP; Site: right antecubital; aj1 14:25 Follow up: Response: No adverse reaction aj1 Disposition: 16:45 Co-signature as Attending Physician, John Paul Durán MD. ma2 Disposition: 09/18/18 12:52 Discharged to Home. Impression: Pain in right foot. - Condition is Stable. - Discharge Instructions: Wound Care, Foot Pain. - Medication Reconciliation Form, Thank You Letter, Antibiotic Education, Prescription Opioid Use form. - Follow up: Emergency Department; When: As needed; Reason: Worsening of condition. Follow up: Juanjose Smith DPM; When: 2 - 3 days; Reason: Recheck today's complaints, Continuance of care, Re-evaluation by your physician. - Problem is new. - Symptoms have improved. Signatures: Dispatcher [employer] EDShazia Flores RN RN aj1 Loren Peter RN RN Arnaud Jesus, ADVERTISEMENT COMPOSITOR ADVERTISEMENT COMPOSITOR pm1 Leeanna, MD LUZ Coker tx2 Corrections: (The following items were deleted from the chart) 14:27 12:52 09/18/2018 12:52 Discharged to Home. Impression: Pain in right foot. Condition is aj1 Stable. Forms are Medication Reconciliation Form, Thank You Letter, Antibiotic Education, Prescription Opioid Use. Follow up: Emergency Department; When: As needed; Reason: Worsening of condition. Follow up: Juanjose Smith; When: 2 - 3 days; Reason: Recheck today's complaints, Continuance of care, Re-evaluation by your physician. Problem is new. Symptoms have improved. pm1
[2018-09-18] MEDS ORDERED: KETOROLAC 30 MG/ML INJ ONE (13:44)
[2018-09-18 14:38] VITALS: TEMP 98.4
[2018-09-18 14:45] VITALS: BP 145/86; O2SAT 97
== END 2018-09-18 14:27 | disposition home or self-care (01) ==
LOC: ER 09:33
DX: M79.671 Pain in right foot (principal); I10 Essential (primary) hypertension; E11.9 Type 2 diabetes mellitus without complications; Z88.8 Allergy status to other drugs, medicaments and biological substances
CPT/HCPCS: 36415; 80053; 85025; 96374; 96375; 99284; J2405

== ENCOUNTER 2019-01-26 09:17 | Inpatient (IN) | payer OTHER, SELFPAY ==
[2019-01-26] MEDS ORDERED: VANCOMYCIN/NS 1 gm 1 GM/250 ML BAG IV ONE (10:00)
[2019-01-26] MEDS ORDERED: FAMOTIDINE 20 MG/2 ML VIAL IV ONE (10:04)
[2019-01-26] MEDS ORDERED: DEXAMETHASONE 10 MG/ML VIAL ONE (10:04)
[2019-01-26] MEDS ORDERED: PIPER/TAZO/NS 3.375gm 3.375 GM/100 ML BAG ONE (10:04)
[2019-01-26] MEDS ORDERED: DIPHENHYDRAMINE 50 MG/ML VIAL ONE (10:04)
[2019-01-26 10:13] LABS: Absolute Lymphocytes (CBC) 1.5 K/uL (0.7-4.9); Absolute Neutrophil 8.7 K/uL (1.8-8.0); Basophils % 0.6 % (0-1.3); Eosinophils % 0.7 % (0-4.4); Hematocrit 43.8 % (39.6-49.0); Lymphocytes % 13.2 % (15.3-44.8); Monocytes % 8.7 % (3.3-12.3); RBC Red Blood Cell Count 4.68 M/uL (4.33-5.43)
[2019-01-26 10:14] LABS: Protime INR 0.91
--- OUTSIDE RECORDS SUMMARY | 2019-01-26 10:30 | XMS REPORT | Clinical Summary ---
:1980 Author Organization [facility] Address [address] [place] [address] Care Team Providers Name Role Phone Asked, [...] MD Korimilli, Vijay, MD 07/08/2018 Travel after 01/25/2018 Social History Tobacco Use Types Packs/Day Years [...] Taken Blood Pressure 139/91 07/21/2018 8:55 AM WATCH AND CLOCK REPAIRER Pulse 68 07/21/2018 8:55 AM WATCH AND CLOCK REPAIRER Temperature 36.2 C (97.2 F) 07/17/2018 11:25 AM WATCH AND CLOCK REPAIRER Respiratory Rate 18 07/17/2018 11:25 AM WATCH AND CLOCK REPAIRER Oxygen Saturation 98% 07/17/2018 11:25 AM WATCH AND CLOCK REPAIRER Inhaled Oxygen Concentration - - Weight 106 kg (234 lb) 07/08/2018 5:25 PM WATCH AND CLOCK REPAIRER Height 172.7 cm (5' 8") 07/08/2018 5:06 PM WATCH AND CLOCK REPAIRER Body Mass Index 35.58 07/08/2018 5:06 PM WATCH AND CLOCK REPAIRER Plan of Treatment Health Maintenance Due Date Last Done Comments INFLUENZA VACCINE 03/25/2019 Procedures Procedure Name Priority Date/Time Associated Comments Diagnosis POC GLUCOSE Routine 07/17/2018 11:27 AM Results for this WATCH AND CLOCK REPAIRER procedure are in the results section. POC GLUCOSE Routine 07/17/2018 7:35 AM Results for this WATCH AND CLOCK REPAIRER procedure are in the results section. POC GLUCOSE Routine 07/16/2018 9:13 PM Results for this WATCH AND CLOCK REPAIRER procedure are in the results section. POC GLUCOSE Routine 07/16/2018 5:17 PM Results for this WATCH AND CLOCK REPAIRER procedure are in the results section. VANCOMYCIN LEVEL, Timed 07/16/2018 12:15 PM Results for this TROUGH WATCH AND CLOCK REPAIRER procedure are in the results section. POC GLUCOSE Routine 07/16/2018 11:35 AM Results for this WATCH AND CLOCK REPAIRER procedure are in the results section. POC GLUCOSE Routine 07/16/2018 7:22 AM Results for this WATCH AND CLOCK REPAIRER procedure are in the results section. ESTIMATED GFR Routine 07/16/2018 4:59 AM Results for this WATCH AND CLOCK REPAIRER procedure are in the results section. BASIC METABOLIC Routine 07/16/2018 4:59 AM Results for this PANEL WATCH AND CLOCK REPAIRER procedure are in the results section. HC COMPLETE BLD Routine 07/16/2018 4:59 AM Results for this COUNT W/AUTO DIFF WATCH AND CLOCK REPAIRER procedure are in the results section. POC GLUCOSE Routine 07/15/2018 9:47 PM Results for this WATCH AND CLOCK REPAIRER procedure are in the results section. POC GLUCOSE Routine 07/15/2018 4:37 PM Results for this WATCH AND CLOCK REPAIRER procedure are in the results section. POC GLUCOSE Routine 07/15/2018 11:36 AM Results for this WATCH AND CLOCK REPAIRER procedure are in the results section. POC GLUCOSE Routine 07/15/2018 7:32 AM Results for this WATCH AND CLOCK REPAIRER procedure are in the results section. POC GLUCOSE Routine 07/14/2018 9:19 PM Results for this WATCH AND CLOCK REPAIRER procedure are in the results section. US DUPLEX VENOUS Routine 07/14/2018 5:40 PM Results for this LOWER EXTREMITY WATCH AND CLOCK REPAIRER procedure are in RIGHT the results section. POC GLUCOSE Routine 07/14/2018 4:39 PM Results for this WATCH AND CLOCK REPAIRER procedure are in the results section. POC GLUCOSE Routine 07/14/2018 11:51 AM Results for this WATCH AND CLOCK REPAIRER procedure are in the results section. POC GLUCOSE Routine 07/14/2018 7:56 AM Results for this WATCH AND CLOCK REPAIRER procedure are in the results section. ESTIMATED GFR Routine 07/14/2018 5:55 AM Results for this WATCH AND CLOCK REPAIRER procedure are in the results section. CBC HEMOGRAM Routine 07/14/2018 5:55 AM Results for this WATCH AND CLOCK REPAIRER procedure are in the results section. BASIC METABOLIC Routine 07/14/2018 5:55 AM Results for this PANEL WATCH AND CLOCK REPAIRER procedure are in the results section. POC GLUCOSE Routine 07/13/2018 8:51 PM Results for this WATCH AND CLOCK REPAIRER procedure are in the results section. POC GLUCOSE Routine 07/13/2018 5:24 PM Results for this WATCH AND CLOCK REPAIRER procedure are in the results section. POC GLUCOSE Routine 07/13/2018 11:29 AM Results for this WATCH AND CLOCK REPAIRER procedure are in the results section. CONSULT TO OSTOMY Routine 07/13/2018 10:14 AM CARE NURSE WATCH AND CLOCK REPAIRER POC GLUCOSE Routine 07/13/2018 8:09 AM Results for this WATCH AND CLOCK REPAIRER procedure are in the results section. ESTIMATED GFR Routine 07/13/2018 5:00 AM Results for this WATCH AND CLOCK REPAIRER procedure are in the results section. CREATININE LEVEL Routine 07/13/2018 5:00 AM Results for this WATCH AND CLOCK REPAIRER procedure are in the results section. POC GLUCOSE Routine 07/12/2018 8:40 PM Results for this WATCH AND CLOCK REPAIRER procedure are in the results section. POC GLUCOSE Routine 07/12/2018 4:16 PM Results for this WATCH AND CLOCK REPAIRER procedure are in the results section. POC GLUCOSE Routine 07/12/2018 12:03 PM Results for this WATCH AND CLOCK REPAIRER procedure are in the results section. POC GLUCOSE Routine 07/12/2018 7:33 AM Results for this WATCH AND CLOCK REPAIRER procedure are in the results section. VANCOMYCIN LEVEL, Timed 07/12/2018 4:10 AM Results for this TROUGH WATCH AND CLOCK REPAIRER procedure are in the results section. POC GLUCOSE Routine 07/11/2018 9:16 PM Results for this WATCH AND CLOCK REPAIRER procedure are in the results section. POC GLUCOSE Routine 07/11/2018 4:58 PM Results for this WATCH AND CLOCK REPAIRER procedure are in the results section. POC GLUCOSE Routine 07/11/2018 11:39 AM Results for this WATCH AND CLOCK REPAIRER procedure are in the results section. POC GLUCOSE Routine 07/11/2018 7:35 AM Results for this WATCH AND CLOCK REPAIRER procedure are in the results section. ESTIMATED GFR Routine 07/11/2018 5:45 AM Results for this WATCH AND CLOCK REPAIRER procedure are in the results section. MAGNESIUM LEVEL Routine 07/11/2018 5:45 AM Results for this WATCH AND CLOCK REPAIRER procedure are in the results section. CBC HEMOGRAM Routine 07/11/2018 5:45 AM Results for this WATCH AND CLOCK REPAIRER procedure are in the results section. BASIC METABOLIC Routine 07/11/2018 5:45 AM Results for this PANEL WATCH AND CLOCK REPAIRER procedure are in the results section. POC GLUCOSE Routine 07/10/2018 9:19 PM Results for this WATCH AND CLOCK REPAIRER procedure are in the results section. POC GLUCOSE Routine 07/10/2018 5:59 PM Results for this WATCH AND CLOCK REPAIRER procedure are in the results section. POC GLUCOSE Routine 07/10/2018 4:47 PM Results for this WATCH AND CLOCK REPAIRER procedure are in the results section. ANESTHESIA Routine 07/10/2018 4:14 PM INTUBATION WATCH AND CLOCK REPAIRER Procedure Note - Robbin Harris CRNA - 07/10/2018 4:14 PM WATCH AND CLOCK REPAIRER ANESTHESIA INTUBATION Date/Time: 07/10/2018 4:12 PM Performed by: Robbin Harris CRNA Authorized by: Ashok Joy MD Location: OR Anesthesiologist: Ashok Joy MD Resident/BETTING CLERKS/AA: Robbin Harris CRNA Preoxygenated with 100% O2: Yes C-spine Precautions Maintained Throughout: Yes Mask Ventilation: Not attempted Final Airway Type: Supraglottic airway LMA Size: 5 Number of Attempts at Approach: 1 POC GLUCOSE Routine 07/10/2018 12:16 PM WATCH AND CLOCK REPAIRER POC GLUCOSE Routine 07/10/2018 8:12 AM WATCH AND CLOCK REPAIRER SMEAR REVIEW Routine 07/10/2018 4:00 AM WATCH AND CLOCK REPAIRER PROTHROMBIN TIME WITH INR Routine 07/10/2018 4:00 AM WATCH AND CLOCK REPAIRER ESTIMATED GFR Routine 07/10/2018 4:00 AM WATCH AND CLOCK REPAIRER HC COMPLETE BLD COUNT W/AUTO Routine 07/10/2018 4:00 AM WATCH AND CLOCK REPAIRER Results for this DIFF procedure are in the results section. BASIC METABOLIC PANEL Routine 07/10/2018 4:00 AM WATCH AND CLOCK REPAIRER VANCOMYCIN LEVEL, TROUGH Timed 07/10/2018 4:00 AM WATCH AND CLOCK REPAIRER POC GLUCOSE Routine 07/09/2018 9:47 PM WATCH AND CLOCK REPAIRER POC GLUCOSE Routine 07/09/2018 4:43 PM WATCH AND CLOCK REPAIRER POC GLUCOSE Routine 07/09/2018 11:31 AM WATCH AND CLOCK REPAIRER POC GLUCOSE Routine 07/09/2018 7:31 AM WATCH AND CLOCK REPAIRER ESTIMATED GFR Routine 07/09/2018 4:10 AM WATCH AND CLOCK REPAIRER HEMOGLOBIN A1C Routine 07/09/2018 4:10 AM WATCH AND CLOCK REPAIRER LACTIC ACID LEVEL Routine 07/09/2018 4:10 AM WATCH AND CLOCK REPAIRER MAGNESIUM LEVEL Routine 07/09/2018 4:10 AM WATCH AND CLOCK REPAIRER PHOSPHORUS LEVEL Routine 07/09/2018 4:10 AM WATCH AND CLOCK REPAIRER HC COMPLETE BLD COUNT W/AUTO Routine 07/09/2018 4:10 AM WATCH AND CLOCK REPAIRER Results for this DIFF procedure are in the results section. COMPREHENSIVE METABOLIC Routine 07/09/2018 4:10 AM WATCH AND CLOCK REPAIRER Results for this PANEL procedure are in the results section. POC GLUCOSE Routine 07/09/2018 12:03 AM WATCH AND CLOCK REPAIRER LACTIC ACID LEVEL, SEPSIS - Timed 07/08/2018 10:04 PM WATCH AND CLOCK REPAIRER Results for this NOW AND REPEAT 2X EVERY 3 procedure are in the HOURS results section. MRI FOOT WO CONTRAST RIGHT Routine 07/08/2018 8:36 PM WATCH AND CLOCK REPAIRER US DUPLEX ARTERIAL LOWER Routine 07/08/2018 7:17 PM WATCH AND CLOCK REPAIRER Results for this EXTREMITY RIGHT procedure are in the results section. US DUPLEX VENOUS LOWER Routine 07/08/2018 7:10 PM WATCH AND CLOCK REPAIRER Results for this EXTREMITY RIGHT procedure are in the results section. XR FOOT 3+ VW RIGHT STAT 07/08/2018 3:01 PM WATCH AND CLOCK REPAIRER ESTIMATED GFR STAT 07/08/2018 2:59 PM WATCH AND CLOCK REPAIRER LACTIC ACID LEVEL, SEPSIS - Timed 07/08/2018 2:59 PM WATCH AND CLOCK REPAIRER Results for this NOW AND REPEAT 2X EVERY 3 procedure are in the HOURS results section. COMPREHENSIVE METABOLIC STAT 07/08/2018 2:59 PM WATCH AND CLOCK REPAIRER Results for this PANEL procedure are in the results section. HC COMPLETE BLD COUNT W/AUTO STAT 07/08/2018 2:59 PM WATCH AND CLOCK REPAIRER Results for this DIFF procedure are in the results section. BLOOD CULTURE, AEROBIC & Routine 07/08/2018 2:54 PM WATCH AND CLOCK REPAIRER Results for this ANAEROBIC procedure are in the results section. BLOOD CULTURE, AEROBIC & Routine 07/08/2018 2:45 PM WATCH AND CLOCK REPAIRER Results for this ANAEROBIC procedure are in the results section. ANAEROBIC CULTURE Routine 07/08/2018 2:40 PM WATCH AND CLOCK REPAIRER GRAM STAIN Routine 07/08/2018 2:40 PM WATCH AND CLOCK REPAIRER AEROBIC CULTURE Routine 07/08/2018 2:40 PM WATCH AND CLOCK REPAIRER after 01/25/2018 Results POC glucose (07/17/2018 11:27 AM WATCH AND CLOCK REPAIRER)Only the most recent of36 resultswithin the time period is included. [facility] POC glucose 99 65 - 99 mg/dL SARAH BETH ARAUZ Comment: [facility] RN Notified Meter ID: [id number] Aged Or Disabled Carer: Andrea Fried Specimen Performing Organization Address City/[facility] Phone Number [facility] DEPARTMENT OF PATHOLOGY [address] [place] [address] Vancomycin level, trough (07/16/2018 12:15 PM WATCH AND CLOCK REPAIRER)Only the most recent of3 resultswithin the time period is included. [facility] Vancomycin, 12.5 10.0 - 20.0 [facility] trough Comment: ug/mL [facility] Therapeutic Ranges: HOSPITAL Peak30.0 - 40.0 ug/mL Boqqez58.0 - 20.0 ug/mL Specimen Blood Performing Organization Address City/[facility] Phone Number [facility] DEPARTMENT OF PATHOLOGY [address] [place] [address] Estimated GFR (07/16/2018 4:59 AM WATCH AND CLOCK REPAIRER)Only the most recent of7 resultswithin the time period is included. [facility] Estimated GFR >=90 mL/min/1.73 SARAH BETH ARAUZ Comment: m2 [facility]its[facility]pretation HOSPITAL G1 >=90 Normal or high G2 60-89Mildly decreased [id number] to moderately decreased L2q87-89Shctdvvumn to severely decreased G4 15-29Severely decreased G5 <15Kidney failure The eGFR was calculated using the Chronic Kidney Disease Epidemiology Collaboration (CKD-EPI) equation. Interpretation is based on recommendations of the National Kidney Foundation-Kidney Disease Outcomes Quality Initiative (NKF-KDOQI) published in 2014. Specimen Plasma specimen Performing Organization Address City/[facility]/Zipcode Phone Number [facility] DEPARTMENT OF PATHOLOGY [address] [place] [address] AND GENOMIC MEDICINE [facility] [address] [place] [address] HOSPITAL CBC with platelet and differential (07/16/2018 4:59 AM WATCH AND CLOCK REPAIRER)Only the most recent of4 resultswithin the time period is included. WBC 8.0 4.5 - 11.0 k/uL [facility] RBC 4.15 (L) 4.40 - 6.00 [facility] m/uL [facility] HGB 12.9 (L) 14.0 - 18.0 [facility] g/dL [facility] HCT 39.8 (L) 41.0 - 51.0 % [facility] MCV 95.9 82.0 - 100.0 fL [facility] MCH 31.1 27.0 - 34.0 pg [facility] MCHC 32.4 31.0 - 37.0 [facility] g/[facility] RDW - SD 41.4 37.0 - 55.0 fL [facility] MPV 10.8 6.9 - 11.0 fL [facility] Platelet count 212 150 - 400 K/uL [facility] Nucleated RBC 0.00 /100 WBC [facility] Neutrophils 56.8 39.0 - 69.0 % [facility] Lymphocytes 27.4 25.0 - 45.0 % [facility] Monocytes 12.8 (H) 0.0 - 10.0 % [facility] Eosinophils 2.1 0.0 - 5.0 % [facility] Basophils 0.5 0.0 - 1.0 % [facility] Immature granulocytes 0.4 0.0 - 1.0 % [facility] Specimen Blood Performing Organization Address City/[facility]/Zipcode Phone Number [facility] DEPARTMENT OF PATHOLOGY [address] [place] [address] AND [facility] [id number] [place] [address] Basic metabolic panel (07/16/2018 4:59 AM WATCH AND CLOCK REPAIRER)Only the most recent of4 resultswithin the time period is included. Sodium 138 135 - 148 mEq/L [facility] Potassium 4.2 3.5 - 5.0 mEq/L [facility] Chloride 101 98 - 112 mEq/L [facility] CO2 27 24 - 31 mEq/L [facility] Anion gap 10@ANIO 7 - 15 mEq/L [facility] BUN 15 6 - 20 mg/dL [facility] Creatinine 0.88 0.70 - 1.20 mg/dL [facility] Glucose 89 65 - 99 mg/dL [facility] Calcium 9.0 8.3 - 10.2 mg/dL [facility] Specimen Plasma specimen Performing Organization Address City/State/Zipcode Phone Number [facility] DEPARTMENT OF PATHOLOGY [address] [place] [address] AND [facility] [id number] [place] [address] Us duplex venous lower extremity (07/14/2018 5:40 PM WATCH AND CLOCK REPAIRER)Only the most recent of2 resultswithin the time period is included. Specimen Narrative Performed At EXAMINATION:US DUPLEX VENOUS LOWER [...] DVT. Right inguinal lymph nodes, likely reactive. [facility]-[id number] Procedure Note Hm Interface, Radiology Results Incoming - 07/14/2018 5:50 PM WATCH AND CLOCK REPAIRER EXAMINATION: US DUPLEX VENOUS LOWER EXTREMITY RIGHT [...] DVT. Right inguinal lymph nodes, likely reactive. [facility]-[id number] Performing Organization Address City/State/Zipcode Phone Number [facility] [address] [place] [address] CBC hemogram (07/14/2018 5:55 AM WATCH AND CLOCK REPAIRER)Only the most recent of2 resultswithin the time period is included. WBC 7.9 4.5 - 11.0 k/uL [facility] RBC 4.31 (L) 4.40 - 6.00 m/uL [facility] HGB 13.7 (L) 14.0 - 18.0 g/dL [facility] HCT 41.2 41.0 - 51.0 % [facility] MCV 95.6 82.0 - 100.0 fL [facility] MCH 31.8 27.0 - 34.0 pg [facility] MCHC 33.3 31.0 - 37.0 g/dL [facility] RDW - SD 41.6 37.0 - 55.0 fL [facility] MPV 10.9 6.9 - 11.0 fL [facility] Platelet count 212 150 - 400 K/uL [facility] Nucleated RBC 0.00 /100 WBC [facility] Specimen Blood Performing Organization Address City/State/Zipcode Phone Number [facility] DEPARTMENT OF PATHOLOGY [address] [place] [address] AND GENOMIC MEDICINE [facility] [address] [place] [address] HOSPITAL Creatinine level (07/13/2018 5:00 AM WATCH AND CLOCK REPAIRER) Creatinine 0.92 0.70 - 1.20 mg/dL [facility] Specimen Plasma specimen Performing Organization Address City/[facility]/Zipcode Phone Number [facility] DEPARTMENT OF PATHOLOGY [address] [place] [address] [place] [address] HOSPITAL Magnesium level (07/11/2018 5:45 AM WATCH AND CLOCK REPAIRER)Only the most recent of2 resultswithin the time period is included. Magnesium 2.1 1.6 - 2.6 mg/dL [facility] Specimen Plasma specimen Performing Organization Address City/[facility]/Zipcode Phone Number [facility] DEPARTMENT OF PATHOLOGY [address] [place] [address] [place] [address] HOSPITAL Smear review (07/10/2018 4:00 AM WATCH AND CLOCK REPAIRER) Pathologist [facility] Platelet slide review Sunitha adequate [facility] Anisocytosis Moderate [facility] Spherocytes Occasional [facility] Enlarged platelets Moderate (A) [facility] Giant platelets Occasional [facility] Specimen Performing Organization Address [facility] Phone Number [facility] DEPARTMENT OF PATHOLOGY [address] [place] [address] Prothrombin time with INR (07/10/2018 4:00 AM WATCH AND CLOCK REPAIRER) Prothrombin time 13.2 11.5 - 14.5 [facility] INR 1.0 [place] Comment: [facility] International Normalized Ratio (INR) is a therapeutic [facility] monitoring tool for patients who are stable on oral anticoagulant therapy. An INR of 2.0-3.0 is suggested for deep vein thrombosis/pulmonary embolism. Specimen Blood Performing Organization Address City/[facility]/Zipcode Phone Number [facility] DEPARTMENT OF PATHOLOGY [address] [place] [address] [place] [address] HOSPITAL Phosphorus level (07/09/2018 4:10 AM WATCH AND CLOCK REPAIRER) Phosphorus 3.6 2.4 - 4.5 mg/dL [facility] Specimen Plasma specimen Performing Organization Address City/[facility]/Zipcode Phone Number [facility] DEPARTMENT OF PATHOLOGY [address] [place] [address] Lactic acid level (07/09/2018 4:10 AM WATCH AND CLOCK REPAIRER) Lactic acid 1.5 0.5 - 2.2 mmol/L [facility] Specimen Plasma specimen Performing Organization Address City/[facility]/Zipcode Phone Number [facility] DEPARTMENT OF PATHOLOGY [address] [place] [address] Hemoglobin A1c (07/09/2018 4:10 AM WATCH AND CLOCK REPAIRER) Hemoglobin A1C 8.1 (H) 4.0 - 6.0 % [facility] Comment: [facility] Less than 6% - Goal of therapy for Type II Diabetes Less than 7%-Goal of therapy for Type I Diabetes Less than 8%-Acceptable control for Type I or Type II Diabetes Greater than 8%-Unacceptable control; action indicated. ([id number]) Specimen Blood Performing Organization Address City/[facility] Phone Number [facility] DEPARTMENT OF PATHOLOGY [address] [place] [address] Comprehensive metabolic panel (07/09/2018 4:10 AM WATCH AND CLOCK REPAIRER)Only the most recent of2 resultswithin the time period is included. Sodium 134 (L) 135 - 148 mEq/L [facility] Potassium 3.7 3.5 - 5.0 mEq/L [facility] Chloride 99 98 - 112 mEq/L [facility] CO2 24 24 - 31 mEq/L [facility] Anion gap 11@ANIO 7 - 15 mEq/L [facility] BUN 10 6 - 20 mg/dL [facility] Creatinine 0.63 (L) 0.70 - 1.20 [facility] mg/dL [facility] Glucose 131 (H) 65 - 99 mg/dL [facility] Calcium 8.8 8.3 - 10.2 [facility] mg/dL [facility] Protein 6.7 6.3 - 8.3 g/dL [facility] Albumin 3.9 3.5 - 5.0 g/dL [facility] A/G ratio 1.4 0.7 - 3.8 [facility] Alkaline phosphatase 54 40 - 129 U/L [facility] AST 17 10 - 50 U/L [facility] ALT 25 5 - 50 U/L [facility] Total bilirubin 0.6 0.2 - 1.2 mg/dL [facility] Specimen Plasma specimen Performing Organization Address City/[facility] Phone Number [facility] DEPARTMENT OF PATHOLOGY [id number] [place] [address] Lactic acid level, SEPSIS - Now and repeat 2x every 3 hours (07/08/2018 10:04 PM WATCH AND CLOCK REPAIRER)Only the most recent of2 resultswithin the time period is included. Lactic acid 1.8 0.5 - 2.2 mmol/L [facility] Specimen Plasma specimen Performing Organization Address City/[facility] Phone Number [facility] DEPARTMENT OF PATHOLOGY [id number] [place] [address] AND [facility] [phone] [place] [address] MRI Foot Wo Contrast Right (07/08/2018 8:36 PM WATCH AND CLOCK REPAIRER) Specimen Narrative Performed At MRI FOOT WO CONTRAST [...] participate in the care of your patient. [facility]-[id number] Procedure Note Interface, Radiology Results Incoming - 07/08/2018 9:04 PM WATCH AND CLOCK REPAIRER MRI FOOT WO CONTRAST RIGHT CLINICAL INDICATION: [...] participate in the care of your patient. [facility]-[id number] Performing Organization Address City/State/Zipcode Phone Number [facility] [address] [place] [address] duplex arterial lower extremity (07/08/2018 7:17 PM WATCH AND CLOCK REPAIRER) Specimen Narrative Performed At [facility] Examination:US DUPLEX ARTERIAL LOWER EXTREMITY RIGHT [...] participate in the care of your patient. [facility]-[id number] Procedure Note Hm Interface, Radiology Results Incoming - 07/08/2018 7:56 PM WATCH AND CLOCK REPAIRER Examination: US DUPLEX ARTERIAL LOWER EXTREMITY RIGHT [...] participate in the care of your patient. [facility]-[id number] Performing Organization Address [facility] Phone Number [facility] [address] [place] [address] XR Foot 3+ Vw Right (07/08/2018 3:01 PM WATCH AND CLOCK REPAIRER) Specimen Narrative Performed At EXAMINATION:XR FOOT 3VW RIGHT [facility] CLINICAL HISTORY:right foot wound---right great toe r o osteomyelitis COMPARISON:None. IMPRESSION: There are fractures of the proximal phalanx of the first and second toes. The first toe fracture extends into the interphalangeal joint. No extension or malalignment at the metatarsal-phalangeal joint is noted. [facility]-[id number] Procedure Note Interface, Radiology Results Incoming - 07/08/2018 3:15 PM WATCH AND CLOCK REPAIRER EXAMINATION: XR FOOT 3 VW RIGHT CLINICAL HISTORY: right foot wound---right great toe r o osteomyelitis COMPARISON: None. IMPRESSION: There are fractures of the proximal phalanx of the first and second toes. The first toe fracture extends into the interphalangeal joint. No extension or malalignment at the metatarsal-phalangeal joint is noted. [facility]-[id number] Performing Organization Address [facility] [facility] Phone Number [facility] [phone] [place] [address] Blood culture, aerobic & anaerobic (07/08/2018 2:54 PM WATCH AND CLOCK REPAIRER)Only the most recent of2 resultswithin the time period is included. Blood culture No growth after 5 days of incubation. [facility] [employer] isolate Comment: HOSPITAL Specimen Information Specimen Source: Blood Specimen Site: Hand, left Specimen Blood - Hand, left Performing Organization Address City/State/Zipcode Phone Number [facility] DEPARTMENT OF PATHOLOGY AND [address] [place] [address] GENOMIC MEDICINE [facility] [address] [place] [address] Aerobic culture (07/08/2018 2:40 PM WATCH AND CLOCK REPAIRER) Aerobic culture Escherichia coli [facility] , susceptibility to follow (A) Comment: Specimen Information Specimen Source: Wound Specimen Site: Toe Aerobic culture Staphylococcus, coagulase negative [facility] , susceptibility to follow (A) Specimen Wound [...] mcg/mL: Resistant negative zole Performing Organization Address [facility] Phone Number [facility] DEPARTMENT OF PATHOLOGY AND [address] [place] [phone] Gram stain (07/08/2018 2:40 PM WATCH AND CLOCK REPAIRER) Gram stain isolate No WBC's [facility] Many Gram positive cocci in [facility] Many Gram negative rods Comment: Specimen Information Specimen Source: Wound Specimen Site: Toe Specimen Wound - Toe Performing Organization Address [facility] Phone Number [facility] DEPARTMENT OF PATHOLOGY AND [address] [place] [phone] Anaerobic culture (07/08/2018 2:40 PM WATCH AND CLOCK REPAIRER) Anaerobic culture Prevotella bivia (A) [facility] isolate Comment: HOSPITAL Specimen Information Specimen Source: Wound Specimen Site: Toe Specimen Wound - Toe Performing Organization Address [facility] Phone Number [facility] DEPARTMENT OF PATHOLOGY AND [address] [place] [phone] after 01/25/2018 Insurance Payer Benefit Plan / Subscriber ID Effective Dates Phone Address Type Group WORKERS COMP ESIS xxxxxxxxxxxxxx 2018-Pres Workers Comp ent Guarantor Name Account Type Relation to Date of Phone Billing Patient Address [id number] Workers Comp Employer 08/25/1901 [address], (Home) [employer] [facility] [address] Advance Directives Patient has advance care planning documents on file. For more information, please contact:[place] [phone]
--- NOTE | 2019-01-26 10:44 | ER ---
Nurse's Notes [facility] Name: Brett Kramer Age: 38 yrs Sex: Male : 1980 Arrival Date: 01/26/2019 Time: 09:21 Bed 15 Private MD: Omari Thao E Diagnosis: Cutaneous abscess of face-early;Type 2 diabetes mellitus;Cellulitis and acute lymphangitis of face and neck Presentation: 01/26 09:31 Presenting complaint: Patient states: i think something bit me i woke up scratching my tw2 LEFT side of my jaw, pt denies dental pain. Transition of care: patient was not received from another setting of care. Onset of symptoms was January 26, 2019. Risk Assessment: Do you want to hurt yourself or someone else? Patient reports no desire to harm self or others. Initial Sepsis Screen: Does the patient meet any 2 criteria? No. Patient's initial sepsis screen is negative. Does the patient have a suspected source of infection? No. Patient's initial sepsis screen is negative. Care prior to arrival: None. 09:31 Method Of Arrival: Ambulatory tw2 09:31 Acuity: CLAIRE 3 tw2 Triage Assessment: :31 Bite description: bite. tw2 Historical: - Allergies: 09:37 Cipro; tw2 09:37 propoxyphene napsylate; tw2 - Home Meds: 09:37 metoprolol tartrate 50 mg Oral tab 1 tab 2 times per day [Active]; [place] 10-325 mg Oral tw2 tab 1 tab every 4 hours [Active]; Adderall XR 20 mg Oral cp24 1 cap twice a day [Active]; gabapentin 300 mg oral cap 1 cap 3 times per day [Active]; Glucophage Oral [Active]; Ativan Oral [Active]; methocarbamol 500 mg Oral tab 2 tabs 4 times per day [Active]; metformin 500 mg Oral tr24 1 tab twice a day [Active]; - PMHx: 09:37 Diabetes - NIDDM; Hypertension; PE; tw2 - Immunization history:: Adult Immunizations. - Social history:: Smoking status: . - Ebola Screening: : Patient denies travel to an Ebola-affected area in the 21 days before illness onset. - Family history:: not pertinent. Screenin:37 Abuse screen: Denies threats or abuse. Nutritional screening: No deficits noted. tw2 Tuberculosis screening: No symptoms or risk factors identified. Fall Risk Secondary diagnosis (15 points) impaired mobility. Assessment: 09:24 General: Appears uncomfortable, well groomed, Behavior is anxious. Pain: Complains of tw2 pain in right jaw. Neuro: Level of Consciousness is awake, alert, obeys commands, Oriented to person, place, time, situation. Cardiovascular: Heart tones S1 S2 Patient's skin is warm and dry. Respiratory: Reports shortness of breath at rest Airway is patent Respiratory effort is even, unlabored, Respiratory pattern is regular, symmetrical, Breath sounds are clear bilaterally. GI: No signs and/or symptoms were reported involving the gastrointestinal system. Abdomen is round non-distended, Bowel sounds present X 4 quads. : No signs and/or symptoms were reported regarding the genitourinary system. EENT: No signs and/or symptoms were reported regarding the EENT system. Derm: Skin is intact, is healthy with good turgor, Skin is diaphoretic, Skin is normal, Abscess located on right jaw. Musculoskeletal: Range of motion: intact in all extremities. 10:13 Reassessment: Urinal provided, patient encouraged to provide urine sample at this time. ae4 Will continue to monitor. 10:44 Reassessment: Patient c/o nausea, Provider notified, new orders received. ae4 11:39 Reassessment: Patient appears more relaxed, fan provided. Patient states feeling better.ae4 12:13 Reassessment: consult with Dr. Mattson done by . iw 12:51 Reassessment: Patient appears in no apparent distress at this time. Reassessment: Will ae4 notify provider of pain level. Pain: Complains of pain in neck Pain currently is 9 out of 10 on a pain scale. 13:26 Reassessment: Called 4th floor to give report to receiving nurse, spoke to Eden via ae4 telephone, Eden states nurse will be Forfel, and he "just went to lunch" and will return call. Will continue to monitor. Vital Signs: 09:32 BP 158 / 112; Pulse 110; Resp 19; Temp 97.9(O); Pulse Ox 100% on R/A; Weight 117.93 kg; tw2 Height 5 ft. 8 in. (172.72 cm); Pain 9/10; 10:08 BP 164 / 99; Pulse 102; Resp 17; Pulse Ox 99% on 2 lpm NC; ae4 11:37 BP 157 / 90; Pulse 95; Resp 16; Pulse Ox 98% on 2 lpm NC; ae4 12:49 BP 134 / 76; Pulse 92; Resp 18; Pulse Ox 93% on 2 lpm NC; ae4 13:27 BP 144 / 80; Pulse 84; Resp 15; Pulse Ox 94% on 2 lpm NC; ae4 09:32 Body Mass Index 39.53 (117.93 kg, 172.72 cm) tw2 09:32 pt reports SOB, pt placed on o2 for comfort at 2l, will continue to monitor tw2 ED Course: 09:21 Patient arrived in ED. mr 09:21 Omari Thao MD is Private Physician. mr 09:25 Jens Moreira MD is Attending Physician. nuria 09:25 Bed in low position. Call light in reach. Pulse ox on. NIBP on. tw2 09:31 Justina Cordova RN is Primary Nurse. tw2 09:32 Triage completed. tw2 09:37 Arm band placed on. tw2 09:40 Inserted saline lock: 20 gauge in right antecubital area, using aseptic technique. tw2 Blood collected. Patient admitted, IV remains in place. 10:05 Report given to KRISTINE Fuentes - OUTSTANDING is urine collection, urine dipstick, Vancomycin tw2 IV, and CT imaging at this time. 10:16 X-ray completed. Portable x-ray completed in exam room. jr1 10:42 XRAY Chest (1 view) In Process Unspecified. EDMS 10:42 Roger Kenney MD is Hospitalizing Provider. nuria 10:50 EKG done, by ED staff, reviewed by Jens Moreira MD. sm3 11:00 Notified ED physician of a critical lab result(s). Noty=[phone]. iw 11:36 Patient moved back from [address]. ae4 11:51 CT Soft Tissue Neck W/contr In Process Unspecified. EDMS 14:21 No provider procedures requiring assistance completed. tw2 Administered Medications: 09:58 Drug: Pepcid 20 mg Route: IVP; Site: right antecubital; tw2 11:49 Follow up: Response: No adverse reaction ae4 10:02 Drug: Decadron - Dexamethasone 10 mg Route: IVP; Site: right antecubital; tw2 13:44 Follow up: Response: No adverse reaction ae4 10:04 Drug: Zosyn 3.375 grams Route: IVPB; Infused Over: 60 mins; Site: right antecubital; tw2 11:20 Follow up: IV Status: Completed infusion ae4 10:04 Drug: Benadryl 50 mg Route: IVP; Site: right antecubital; tw2 11:48 Follow up: Response: Other; Patient states he is more relaxed and drowsy. ae4 10:48 Drug: Zofran 4 mg Route: IVP; Site: right antecubital; ae4 11:49 Follow up: Response: No adverse reaction ae4 11:49 Follow up: Response: Nausea is decreased ae4 11:00 Drug: fentaNYL (PF) 50 mcg Route: IVP; Site: right antecubital; ae4 11:49 Follow up: Response: Pain is decreased ae4 11:16 Drug: vancoMYCIN 1 grams Route: IVPB; Infused Over: 2 hrs; Site: right antecubital; ae4 13:44 Follow up: IV Status: Completed infusion ae4 12:05 Drug: Insulin Regular Human 10 units {Co-Signature: dandre (Matias Younger RN).} Route: ae4 Sub-Q; Site: right lower abdomen; 12:50 Follow up: Response: Blood sugar is lowered ae4 12:07 Drug: Insulin Regular Human 10 units {Co-Signature: dandre (Matias Younger RN).} Route: IVP; ae4 Site: right antecubital; 12:50 Follow up: Response: Blood sugar is lowered ae4 Point of Care Testing: Blood Glucose: 12:49 Blood Glucose: 258 mg/dL; ae4 Ranges: Intake: Outcome: 10:43 Decision to Hospitalize by Provider. [facility] 14:21 Patient left the ED. ae4 Signatures: Dispatcher [employer] Jens Perez MD MD cha Rivera, Jennie mr Chang, Paula jr1 Jojo Hale, RN KRISTINE iw Justina Cordova RN RN tw2 Ekaterina Lozoya 3 Filippo Ybarra RN RN ae4 Matias amos
--- NOTE | 2019-01-26 10:44 | EDPHYS ---
Physician Documentation [facility] Name: Brett Kramer Age: 38 yrs Sex: Male : 1980 Arrival Date: 01/26/2019 Time: 09:21 Bed 15 Private MD: Omari Thao E ED Physician Jens Moreira HPI: 01/26 09:44 This 38 yrs old Male presents to ER via Ambulatory with complaints of Insect nuria Bite. 09:44 The patient or guardian reports pain, swelling, tenderness. The complaints affect the nuria chin, right mandible and left mandible. Context of injury: The problem was sustained at home. Onset: The symptoms/episode began/occurred and became worse. Associated signs and symptoms: The patient has no apparent associated signs or symptoms. The patient presents with an abscess of the face, The patient presents with cellulitis of the face, the patient presents with a swollen area of the chin, right jaw and right mandible. Historical: - Allergies: 09:37 Cipro; tw2 09:37 propoxyphene napsylate; tw2 - Home Meds: 09:37 metoprolol tartrate 50 mg Oral tab 1 tab 2 times per day [Active]; [place] 10-325 mg Oral tw2 tab 1 tab every 4 hours [Active]; Adderall XR 20 mg Oral cp24 1 cap twice a day [Active]; gabapentin 300 mg oral cap 1 cap 3 times per day [Active]; Glucophage Oral [Active]; Ativan Oral [Active]; methocarbamol 500 mg Oral tab 2 tabs 4 times per day [Active]; metformin 500 mg Oral tr24 1 tab twice a day [Active]; - PMHx: 09:37 Diabetes - NIDDM; Hypertension; PE; tw2 - Immunization history:: Adult Immunizations. - Social history:: Smoking status: . - Ebola Screening: : Patient denies travel to an Ebola-affected area in the 21 days before illness onset. - Family history:: not pertinent. ROS: 09:44 Constitutional: Negative for fever, chills, and weight loss, Eyes: Negative for injury, nuria pain, redness, and discharge, Neck: Negative for injury, pain, and swelling, Cardiovascular: Negative for chest pain, palpitations, and edema, Respiratory: Negative for shortness of breath, cough, wheezing, and pleuritic chest pain, Abdomen/GI: Negative for abdominal pain, nausea, vomiting, diarrhea, and constipation, Back: Negative for injury and pain, : Negative for injury, bleeding, discharge, and swelling, MS/Extremity: Negative for injury and deformity, Skin: Negative for injury, rash, and discoloration, Neuro: Negative for headache, weakness, numbness, tingling, and seizure, Psych: Negative for depression, anxiety, suicide ideation, homicidal ideation, and hallucinations, Allergy/Immunology: Negative for hives, rash, and allergies, Endocrine: Negative for neck swelling, polydipsia, polyuria, polyphagia, and marked weight changes, Hematologic/Lymphatic: Negative for swollen nodes, abnormal bleeding, and unusual bruising. 09:44 ENT: Positive for of the chin, right jaw, right cheek and right mandible. Exam: 09:44 Constitutional: This is a well developed, well nourished patient who is awake, alert, nuria and in no acute distress. Eyes: Pupils equal round and reactive to light, extra-ocular motions intact. Lids and lashes normal. Conjunctiva and sclera are non-icteric and not injected. Cornea within normal limits. Periorbital areas with no swelling, redness, or edema. ENT: Nares patent. No nasal discharge, no septal abnormalities noted. Tympanic membranes are normal and external auditory canals are clear. Oropharynx with no redness, swelling, or masses, exudates, or evidence of obstruction, uvula midline. Mucous membranes moist. Neck: Trachea midline, no thyromegaly or masses palpated, and no cervical lymphadenopathy. Supple, full range of motion without nuchal rigidity, or vertebral point tenderness. No Meningismus. Chest/axilla: Normal chest wall appearance and motion. Nontender with no deformity. No lesions are appreciated. Cardiovascular: Regular rate and rhythm with a normal S1 and S2. No gallops, murmurs, or rubs. Normal PMI, no JVD. No pulse deficits. Respiratory: Lungs have equal breath sounds bilaterally, clear to auscultation and percussion. No rales, rhonchi or wheezes noted. No increased work of breathing, no retractions or nasal flaring. Abdomen/GI: Soft, non-tender, with normal bowel sounds. No distension or tympany. No guarding or rebound. No evidence of tenderness throughout. Back: No spinal tenderness. No costovertebral tenderness. Full range of motion. Skin: Warm, dry with normal turgor. Normal color with no rashes, no lesions, and no evidence of cellulitis. MS/ Extremity: Pulses equal, no cyanosis. Neurovascular intact. Full, normal range of motion. Neuro: Awake and alert, GCS 15, oriented to person, place, time, and situation. Cranial nerves II-XII grossly intact. Motor strength 5/5 in all extremities. Sensory grossly intact. Cerebellar exam normal. Normal gait. Psych: Awake, alert, with orientation to person, place and time. Behavior, mood, and affect are within normal limits. 09:44 Head/face: Noted is swelling, tenderness, that is moderate, of the chin, right jaw, right cheek and right mandible. Vital Signs: 09:32 BP 158 / 112; Pulse 110; Resp 19; Temp 97.9(O); Pulse Ox 100% on R/A; Weight 117.93 kg; tw2 Height 5 ft. 8 in. (172.72 cm); Pain 9/10; 10:08 BP 164 / 99; Pulse 102; Resp 17; Pulse Ox 99% on 2 lpm NC; ae4 11:37 BP 157 / 90; Pulse 95; Resp 16; Pulse Ox 98% on 2 lpm NC; ae4 12:49 BP 134 / 76; Pulse 92; Resp 18; Pulse Ox 93% on 2 lpm NC; ae4 13:27 BP 144 / 80; Pulse 84; Resp 15; Pulse Ox 94% on 2 lpm NC; ae4 09:32 Body Mass Index 39.53 (117.93 kg, 172.72 cm) tw2 09:32 pt reports SOB, pt placed on o2 for comfort at 2l, will continue to monitor tw2 MDM: 09:25 Patient medically screened. [facility] 09:44 Data reviewed: vital signs, nurses notes, lab test result(s), EKG, radiologic studies. [facility] 01/26 09:43 Order name: Basic Metabolic Panel; Complete Time: 11:27 [facility] 01/26 09:43 Order name: CBC with Diff; Complete Time: 10:42 [facility] 01/26 09:43 Order name: LFT's; Complete Time: 11:27 [facility] 01/26 09:43 Order name: Magnesium; Complete Time: 11:27 [facility] 01/26 09:43 Order name: NT PRO-BNP; Complete Time: 11:27 [facility] 01/26 09:43 Order name: PT-INR; Complete Time: 10:42 [facility] 01/26 09:43 Order name: Troponin (emerg Dept Use Only); Complete Time: 11:27 [facility] 01/26 09:43 Order name: XRAY Chest (1 view); Complete Time: 11:27 [facility] 01/26 09:43 Order name: CT Soft Tissue Neck W/contr; Complete Time: 12:10 [facility] 01/26 10:29 Order name: Urine Dipstick--Ancillary (enter results); Complete Time: 12:10 01/26 09:43 Order name: EKG; Complete Time: 09:46 [facility] 01/26 09:43 Order name: Cardiac monitoring; Complete Time: 09:46 [facility] 01/26 09:43 Order name: EKG - Nurse/Tech; Complete Time: 11:16 [facility] 01/26 09:43 Order name: IV Saline Lock; Complete Time: 10:05 [facility] 01/26 09:43 Order name: Labs collected and sent; Complete Time: 10:05 [facility] 01/26 09:43 Order name: O2 Per Protocol; Complete Time: 09:46 [facility] 01/26 09:43 Order name: O2 Sat Monitoring; Complete Time: 09:46 [facility] 01/26 09:43 Order name: Urine Dipstick-Ancillary (obtain specimen); Complete Time: 10:21 [facility] 01/26 10:52 Order name: NPO; Complete Time: 10:52 [facility] Administered Medications: 09:58 Drug: Pepcid 20 mg Route: IVP; Site: right antecubital; tw2 11:49 Follow up: Response: No adverse reaction ae4 10:02 Drug: Decadron - Dexamethasone 10 mg Route: IVP; Site: right antecubital; tw2 13:44 Follow up: Response: No adverse reaction ae4 10:04 Drug: Zosyn 3.375 grams Route: IVPB; Infused Over: 60 mins; Site: right antecubital; tw2 11:20 Follow up: IV Status: Completed infusion ae4 10:04 Drug: Benadryl 50 mg Route: IVP; Site: right antecubital; tw2 11:48 Follow up: Response: Other; Patient states he is more relaxed and drowsy. ae4 10:48 Drug: Zofran 4 mg Route: IVP; Site: right antecubital; ae4 11:49 Follow up: Response: No adverse reaction ae4 11:49 Follow up: Response: Nausea is decreased ae4 11:00 Drug: fentaNYL (PF) 50 mcg Route: IVP; Site: right antecubital; ae4 11:49 Follow up: Response: Pain is decreased ae4 11:16 Drug: vancoMYCIN 1 grams Route: IVPB; Infused Over: 2 hrs; Site: right antecubital; ae4 13:44 Follow up: IV Status: Completed infusion ae4 12:05 Drug: Insulin Regular Human 10 units {Co-Signature: dandre (Matias Younger RN).} Route: ae4 Sub-Q; Site: right lower abdomen; 12:50 Follow up: Response: Blood sugar is lowered ae4 12:07 Drug: Insulin Regular Human 10 units {Co-Signature: dandre (Matias Younger RN).} Route: IVP; ae4 Site: right antecubital; 12:50 Follow up: Response: Blood sugar is lowered ae4 Point of Care Testing: Blood Glucose: 12:49 Blood Glucose: 258 mg/dL; ae4 Ranges: Critical Glucose Levels:Adult <50 mg/dl or >400 mg/dl <40 mg/dl or >180 mg/dl Disposition: 01/26/19 10:43 Hospitalization ordered by Roger Kenney for Inpatient Admission. Preliminary diagnosis are Cutaneous abscess of face - early, Type 2 diabetes mellitus, Cellulitis and acute lymphangitis of face and neck. - Bed requested for Telemetry/MedSurg (Inpatient). - Status is Inpatient Admission. ae4 - Condition is Fair. - Problem is new. - Symptoms have improved. UTI on Admission? No Signatures: Dispatcher [employer] Jens Perez MD MD cha Wise, Tara, RN RN 2 Soniya Mattson 3 Filippo Ybarra RN RN ae4 Matias amos Corrections: (The following items were deleted from the chart) 12:50 10:43 Hospitalization Ordered by Roger Kenney MD for Inpatient Admission. Preliminary nuria diagnosis is Cutaneous abscess of face; Type 2 diabetes mellitus. Bed requested for Telemetry/MedSurg (Inpatient). Status is Inpatient Admission. Condition is Fair. Problem is new. Symptoms have improved. UTI on Admission? No. [facility] 13:22 12:50 01/26/2019 10:43 Hospitalization Ordered by Roger Kenney MD for Inpatient dh3 Admission. Preliminary diagnosis is Cutaneous abscess of face - early; Type 2 diabetes mellitus; Cellulitis and acute lymphangitis of face and neck. Bed requested for Telemetry/MedSurg (Inpatient). Status is Inpatient Admission. Condition is Fair. Problem is new. Symptoms have improved. UTI on Admission? No. [facility] 14:21 13:22 01/26/2019 10:43 Hospitalization Ordered by Roger Kenney MD for Inpatient ae4 Admission. Preliminary diagnosis is Cutaneous abscess of face - early; Type 2 diabetes mellitus; Cellulitis and acute lymphangitis of face and neck. Bed requested for Telemetry/MedSurg (Inpatient). Status is Inpatient Admission. Condition is Fair. Problem is new. Symptoms have improved. UTI on Admission? No. dh3
--- NOTE | 2019-01-26 10:50 | RAD REPORT ---
EXAM DESCRIPTION: RAD - Chest Single View - 01/26/2019 10:40 am CLINICAL HISTORY: COUGH Chest pain. COMPARISON: Chest Single View dated 06/18/2018; Chest Single View dated 11/21/2017; Chest Single View dated 08/01/2017; Chest Single View dated 01/02/2017 FINDINGS: Portable technique limits examination quality. The lungs are grossly clear. The heart is normal in size. No displaced fractures. IMPRESSION: No acute intrathoracic process suspected.
[2019-01-26] MEDS ORDERED: ONDANSETRON 4 MG/2 ML VIAL ONE (10:57)
[2019-01-26 10:58] LABS: ALT/SGPT 27 U/L (12-78); AST/SGOT 12 U/L (15-37); Albumin 3.6 g/dL (3.4-5.0); Alkaline Phosphatase 96 U/L (45-117); BUN Blood Urea Nitrogen 17 mg/dL (7-18); Bicarbonate 23 mmol/L (21-32); Bilirubin Direct 0.1 mg/dL (0-0.2); Bilirubin Total 0.9 mg/dL (0.2-1.0); NT PRO-BNP 174 pg/mL (<125); Potassium 3.9 mmol/L (3.5-5.1); Protein, Total 7.4 g/dL (6.4-8.2); Sodium Level 129 mmol/L (136-145); Troponin (Emerg Dept Use Only) < 0.02 ng/mL (0.0-0.045)
[2019-01-26 11:01] LABS: Glucose Level 488 mg/dL (74-106)
[2019-01-26] MEDS ORDERED: FENTANYL CITR 100 MCG/2 ML ONE (11:20)
--- NOTE | 2019-01-26 11:36 | EKG ---
Test Date: 2019-01-26 Test Time: 10:34:01 Copy Holder: FARHANA MEASUREMENT RESULTS: Intervals: Rate: 100 OR: 172 QRSD: 100 QT: 390 QTc: 503 [place]: P: 26 OR: 172 QRS: 41 T: 126 INTERPRETIVE STATEMENTS: Normal sinus rhythm Possible Left atrial enlargement ST & T wave abnormality, consider lateral ischemia Prolonged QT Abnormal ECG Compared to ECG 06/18/2018 18:48:04 ST (T wave) deviation now present Possible ischemia now present T-wave abnormality no longer present Electronically Signed On 01-26-19 11:35:25 CDT by Koko Menjivar
--- NOTE | 2019-01-26 11:59 | RAD REPORT ---
EXAM DESCRIPTION: CT - Soft Tissue Neck W/Contr CLINICAL HISTORY: PAIN Pain and swelling. COMPARISON: No comparisons TECHNIQUE All CT scans are performed using dose optimization technique as appropriate and may includ e automated exposure control or mA/KV adjustment according to patient size. FINDINGS: Skin thickening with subcutaneous edema and fat reticulation is seen along the right anter ior aspect of the jaw. An abscess is not seen. This appears to be localized inflammation presumably r elated to a localized inflammatory response. Several enlarged submental with bilateral jugular chain lymph nodes are present. No intrinsic or extrinsic neck mass. Thyroid gland is normal. Skullbase is intact. The paranasal sinu ses and mastoids are clear. IMPRESSION: Significant superficial and subcutaneous inflammatory changes along the right aspect of the jaw are seen without abscess.
[2019-01-26 12:04] LABS: Urine Blood NEGATIVE (NEG); Urine Glucose 2+ (NEG); Urine Protein TRACE (NEG); Urine Specific Gravity <1.005 (1.005-1.030); Urine pH 6.5 (5.0-7.0)
[2019-01-26] MEDS ORDERED: INSULIN -REGULAR HUMAN 50 UNIT/0.5 ML ML ONE (12:16)
[2019-01-26] MEDS ORDERED: GLUCAGON 1 MG/VIAL IM PRN (14:44)
[2019-01-26] MEDS ORDERED: D50W 25 GM/50 ML SYRINGE IV PRN (14:44)
[2019-01-26 14:55] VITALS: BMI 39.5
[2019-01-26] MEDS: TRAMADOL HCL 50 MG TAB PO PRN (15:24)
[2019-01-26] MEDS: ENOXAPARIN 40 MG/0.4 ML SQ SCH (15:24)
[2019-01-26] MEDS ORDERED: POTASSIUM 25 MEQ EFFERV TAB PO ONE (15:55)
[2019-01-26 16:20] LABS: Urine Appearance CLEAR; Urine Bilirubin NEGATIVE (NEG); Urine Blood NEGATIVE (NEG); Urine Color YELLOW; Urine Glucose 3+ (NEG); Urine Protein 2+ (NEG); Urine Specific Gravity >=1.030 (1.005-1.030); Urine Urobilinogen 0.2 mg/dL (0.2-1.0); Urine pH 6.5 (5.0-7.0)
[2019-01-26 16:21] LABS: Urine Microscopic Reflex ORDER UMIC
[2019-01-26 16:29] LABS: Barbiturates NEGATIVE (NEGATIVE); Benzodiazepines NEGATIVE (NEGATIVE); Cocaine NEGATIVE (NEGATIVE); METHAMPHETAM NEGATIVE (NEGATIVE); Methadone NEGATIVE (NEGATIVE); Opiates NEGATIVE (NEGATIVE); Phencyclidine NEGATIVE (NEGATIVE); THC Cannibis NEGATIVE (NEGATIVE); Urine Bacteria NONE SEEN /HPF (NONE SEEN); Urine Culture Reflex Order NOT NEEDED; Urine RBC <5 /HPF (NONE SEEN)
[2019-01-26] MEDS: INSULIN -REGULAR HUMAN 50 UNIT/0.5 ML ML SQ SCH ×2 (17:06→20:58)
[2019-01-26] MEDS: CLINDAMYCIN PHOSPHATE 600 MG in NA CHLORIDE 0.9% 50 ML IV SCH (17:14)
[2019-01-26] MEDS: HYDROCODONE/APAP 10/325 TAB PO PRN (18:11)
--- NOTE | 2019-01-26 19:09 | P.HP ---
Certification for Inpatient Patient admitted to: Inpatient Practitioner: I am a practitioner with admitting privileges, knowledge of patient current condition, hospital course, and medical plan of care. Services: Services provided to patient in accordance with Admission requirements found in Title 42 Section 412.3 of the Code of Federal Regulations Patient History Date of Service: 01/26/19 Reason for admission: Facial swelling and pain History of Present Illness: This is a 38-year-old male with history of uncontrolled diabetes and hypertension admitted for facial abscess/cellulitis. Per patient, he woke up this morning after scratching area on the chin overnight. He noted that his face was swollen, area was really hard and painful. He denied any fevers or chills, chest pain, shortness of breath, headaches, vision changes, GI or complaints or any dizziness/lightheadedness. Because of the pain on the chin, he decided to come to the ER. He was brought to the ER by his neighbor. In the ER, his blood pressure was 158/112, heart rate of 110, afebrile at 97.9, satting 100% on room air with a BMI of 39.53. His labs were remarkable for a blood sugars of 488. CT of the neck/face with superficial inflammatory changes along the right aspect of the jaw without any abscess. ENT was consulted from the ER. At the time of my exam, patient was alert oriented x3, in mild to moderate distress secondary to pain on the right side of the jaw, hemodynamically stable. He was admitted for IV antibiotics and ENT evaluation for facial cellulitis Allergies NKDA Allergy (Uncoded 08/20/15 19:06) Unknown No Known Allergies Allergy (Uncoded 12/23/15 04:29) Unknown Home Medications: Dextroamphetamine/Amphetamine [Adderall Xr 20 mg Capsule] 1 cap PO BID 01/26/19 Hydrocodone Bit/Acetaminophen [[place] 10-325 Tablet] 1 tab PO Q6HP PRN 01/26/19 Metformin HCl [Glucophage] 500 mg PO BID 01/26/19 RX: Gabapentin 300 mg PO TID 01/26/19 RX: Methocarbamol [Robaxin*] 500 mg PO Q8H 01/26/19 RX: Metoprolol Succinate [Toprol Xl*] 50 mg PO BID 01/26/19 - Past Medical/Surgical History Has patient received pneumonia vaccine in the past: No Diabetic: Yes -: HTN -: Asthma -: pulmonary embolism -: right rotator cuff surgery -: right toe surgery jun 2018 - Family History Father -: Heart disease, Hypertension, Lung disease, Diabetes, Kidney disease Mother -: Heart disease, Hypertension, Other (see notes) Notes: pvd Brother -: Heart disease, Diabetes, Kidney disease Sister -: Other (see notes) Notes: back problems and thyroid problems - Social History Smoking Status: Former smoker Alcohol use: Yes CD- Drugs: No Caffeine use: No Place of Residence: Home Review of Systems 10-point ROS is otherwise unremarkable Physical Examination - Vital Signs Temperature: 97.7 F Blood Pressure: 169/97 Pulse: 97 Respirations: 18 Pulse Ox (%): 96 - Physical Exam General: Alert, Oriented x3, Mild distress, Moderate distress HEENT: Atraumatic, PERRLA, Mucous membr. moist/pink, EOMI, Sclerae nonicteric Neck: Supple, 2+ carotid pulse no bruit, No LAD, Without JVD or thyroid abnormality Respiratory: Clear to auscultation bilaterally, Normal air movement Cardiovascular: Regular rate/rhythm, Normal S1 S2 Gastrointestinal: Normal bowel sounds, No tenderness Musculoskeletal: No tenderness Integumentary: Tenderness/swelling (Right-sided jaw), Erythema, Warmth Neurological: Normal gait, Normal speech, Normal strength at 5/5 x4 extr, Normal tone, Normal affect Lymphatics: No axilla or inguinal lymphadenopathy - Studies Laboratory Data (last 24 hrs) 01/26/19 09:55: PT 10.8, INR 0.91 01/26/19 09:55: WBC 11.4 H, Hgb 14.7, Hct 43.8, Plt Count 227 01/26/19 09:55: Sodium 129 L, Potassium 3.9, BUN 17, Creatinine 1.14, Glucose 488 H*, Magnesium 2.0, Total Bilirubin 0.9, AST 12 L, ALT 27, Alkaline Phosphatase 96 Assessment and Plan - Problems (Diagnosis) (1) Facial cellulitis Current Visit: Yes Status: Acute (2) Diabetes Current Visit: No Status: Chronic (3) Diabetic foot ulcer Current Visit: No Status: Chronic (4) Obesity Onset Date: 10/31/14 Current Visit: No Status: Acute (5) Hypertension Onset Date: 10/31/14 Current Visit: No Status: Chronic - Plan Admit to floor with tele. Start IV clindamycin. ENT consulted, awaiting recommendations. He will need strict blood sugar control. Continue wound care on foot ulcer, currently around. Patient has been following up as an outpatient for this. Pain control. Zofran for nausea DVT prophylaxis: Lovenox GI prophylaxis: None Diet: Diabetic Disposition: Pending symptomatic improvement, IV antibiotics. - Advance Directives Does patient have a Living Will: No Does patient have a Durable POA for Healthcare: No
[2019-01-26] MEDS: ONDANSETRON 4 MG/2 ML VIAL IV PRN (20:58)
[2019-01-26] MEDS: MORPHINE 4 MG/ML SYR IV PRN (21:45)
[2019-01-26] MEDS: METHOCARBAMOL 500 MG TAB PO SCH (22:57)
[2019-01-27] MEDS: CLINDAMYCIN PHOSPHATE 600 MG in NA CHLORIDE 0.9% 50 ML IV SCH ×3 (00:21→16:38)
[2019-01-27] MEDS: HYDROCODONE/APAP 10/325 TAB PO PRN ×3 (00:30→14:04)
[2019-01-27] MEDS: MORPHINE 4 MG/ML SYR IV PRN ×4 (03:45→21:26)
[2019-01-27] MEDS: ONDANSETRON 4 MG/2 ML VIAL IV PRN ×3 (03:45→21:25)
[2019-01-27] MEDS: METHOCARBAMOL 500 MG TAB PO SCH ×3 (05:02→21:24)
[2019-01-27 06:45] LABS: Absolute Lymphocytes (CBC) 1.9 K/uL (0.7-4.9); Absolute Monocytes 0.9 K/uL (0.1-1.3); Absolute Neutrophil 9.7 K/uL (1.8-8.0); Eosinophils % 0.1 % (0-4.4); Hematocrit 42.8 % (39.6-49.0); Lymphocytes % 14.7 % (15.3-44.8); Monocytes % 7.3 % (3.3-12.3); RBC Red Blood Cell Count 4.67 M/uL (4.33-5.43)
[2019-01-27 07:03] LABS: ALT/SGPT 24 U/L (12-78); AST/SGOT 8 U/L (15-37); Albumin 3.5 g/dL (3.4-5.0); Alkaline Phosphatase 86 U/L (45-117); BUN Blood Urea Nitrogen 22 mg/dL (7-18); Bicarbonate 24 mmol/L (21-32); Bilirubin Total 0.8 mg/dL (0.2-1.0); Glucose Level 247 mg/dL (74-106); Phosphorus 3.5 mg/dL (2.5-4.9); Potassium 4.2 mmol/L (3.5-5.1); Protein, Total 7.6 g/dL (6.4-8.2); Sodium Level 134 mmol/L (136-145)
--- NOTE | 2019-01-27 07:43 | EKG ---
Test Date: 2019-01-26 Test Time: 10:34:35 Practical Nursing Instructor: FARHANA MEASUREMENT RESULTS: Intervals: Rate: 102 PA: 174 QRSD: 100 QT: 380 QTc: 495 [place]: P: 24 PA: 174 QRS: 46 T: 119 INTERPRETIVE STATEMENTS: Sinus tachycardia T wave abnormality, consider lateral ischemia Abnormal ECG Compared to ECG 01/26/2019 10:34:01 T-wave abnormality now present Sinus rhythm no longer present ST (T wave) deviation no longer present Prolonged QT interval no longer present Possible ischemia still present Electronically Signed On 01-27-19 07:42:23 CDT by Lv Grace
[2019-01-27] MEDS: INSULIN -REGULAR HUMAN 50 UNIT/0.5 ML ML SQ SCH ×4 (08:13→21:24)
[2019-01-27] MEDS: ENOXAPARIN 40 MG/0.4 ML SQ SCH (08:13)
[2019-01-27] MEDS: METFORMIN HCL 500 MG TAB PO SCH ×2 (08:14→21:24)
[2019-01-27] MEDS: METOPROLOL XL 50 MG TAB PO SCH ×2 (08:14→21:23)
[2019-01-27] MEDS: GABAPENTIN 300 MG CAP PO SCH ×3 (08:14→21:23)
[2019-01-27] MEDS ORDERED: DEXTROAMPHETAMINE PO SCH (09:00)
[2019-01-27] MEDS ORDERED: AMPHETAMINE PO SCH (09:00)
[2019-01-27] MEDS: TRAMADOL HCL 50 MG TAB PO PRN (11:53)
--- NOTE | 2019-01-27 13:50 | CON ---
Dictating summary of consultation findings, a full dictation to follow. Summary: This is a 38-year-old male with uncontrolled diabetes, who presented to the emergency room with right neck and chin, redness, pain, and swelling. CT scan performed in the emergency room demon strated cellulitis without evidence of organized or drainable abscess. The patient was admitted for IV antibiotics and control of his blood sugars. I recently examined the patient on the morning of January 27. He states that the redness and degree of swelling is improved, but not resolved. On exam, he has minimal redness of the skin at the base of the neck and right face on the right side of chin overlying the edge of the mandible beneath his plummer, there is approximately 1.5-2 cm area o f redness with central crusting, but no palpable fluctuance and no evidence of coalescent injury or a bscess at this point in time. My recommendation is to continue IV antibiotics. I will reassess the patient at the end of the day for evidence of abscess formation. We discussed the treatment differen rico between abscess and cellulitis. If the patient continues to improve, he can be discharged in acc ords with his primary team. I emphasized the residential for diabetes control and reducing its overall risk of the infection. ADALBERTO/RASHMI Voice ID: [id number] Report ID: [id number]
--- NOTE | 2019-01-27 16:06 | P.PN ---
Subjective Date of Service: 01/27/19 Chief Complaint: Facial swelling and pain Subjective: Improving Patient seen and examined at bedside. No family at bedside. Chart reviewed and case discussed with nursing staff. Redness improved. Patient still complaining of pain. Patient currently on IV morphine, tramadol and norco. Review of Systems 10-point ROS is otherwise unremarkable Physical Examination - Vital Signs Temperature: 97.3 F Blood Pressure: 159/93 Pulse: 82 Respirations: 18 Pulse Ox (%): 98 - Physical Exam General: Alert, In no apparent distress, Oriented x3, Obese HEENT: Atraumatic, PERRLA, EOMI Neck: Supple, JVD not distended Respiratory: Clear to auscultation bilaterally, Normal air movement Cardiovascular: Regular rate/rhythm, Normal S1 S2 Gastrointestinal: Normal bowel sounds, No tenderness Musculoskeletal: No tenderness Integumentary: Tenderness/swelling, Erythema, Warmth Neurological: Normal speech, Normal tone, Normal affect Assessment And Plan - Current Problems (Diagnosis) (1) Facial cellulitis Current Visit: Yes Status: Acute (2) Diabetes Current Visit: No Status: Chronic (3) Diabetic foot ulcer Current Visit: No Status: Chronic (4) Obesity Onset Date: 10/31/14 Current Visit: No Status: Acute (5) Hypertension Onset Date: 10/31/14 Current Visit: No Status: Chronic - Plan Continue IV clindamycin. ENT consulted, recommendations appreciated. Continue with strict blood sugar control. Continue wound care on foot ulcer, currently bandaged. Patient has been following up as an outpatient for this. Pain control. Zofran for nausea DVT prophylaxis: Lovenox GI prophylaxis: None Diet: Diabetic Disposition: Pending symptomatic improvement, IV antibiotics. Anticipate discharge in the next 24-48 hrs.
[2019-01-28] MEDS: HYDROCODONE/APAP 10/325 TAB PO PRN ×4 (00:25→20:53)
[2019-01-28] MEDS: CLINDAMYCIN PHOSPHATE 600 MG in NA CHLORIDE 0.9% 50 ML IV SCH ×3 (00:25→16:25)
[2019-01-28] MEDS: TRAMADOL HCL 50 MG TAB PO PRN ×3 (02:13→13:42)
[2019-01-28] MEDS: MORPHINE 4 MG/ML SYR IV PRN ×4 (03:48→22:13)
[2019-01-28] MEDS: ONDANSETRON 4 MG/2 ML VIAL IV PRN ×3 (03:49→16:36)
[2019-01-28] MEDS: METHOCARBAMOL 500 MG TAB PO SCH ×3 (06:02→20:45)
[2019-01-28] MEDS: ENOXAPARIN 40 MG/0.4 ML SQ SCH (08:06)
[2019-01-28] MEDS: METFORMIN HCL 500 MG TAB PO SCH ×2 (08:06→20:46)
[2019-01-28] MEDS: GABAPENTIN 300 MG CAP PO SCH ×3 (08:06→20:46)
[2019-01-28] MEDS: METOPROLOL XL 50 MG TAB PO SCH ×2 (08:07→20:46)
[2019-01-28] MEDS: INSULIN -REGULAR HUMAN 50 UNIT/0.5 ML ML SQ SCH ×4 (09:33→20:44)
--- NOTE | 2019-01-28 11:42 | PN ---
Date of Progress Note: 01/28/2019 Interim History: The patient has been maintained on IV clindamycin for approximately 48 hours. He c omplains of moderate to severe pain at the area of the chin including the neck and throat. Physical Examination: The patient is afebrile. His blood pressures are mildly elevated with systolics in the 140s to 150s and diastolics in the mid 80s to high 90s. On exam the area of the neck is closely examined. There is an approximately 2 cm area of induration, which is overall stable from yesterday. There is no he dence of obvious abscess formation superficially in regard to spontaneous drainage or palpable fluctu ance although palpation is limited by degree of tenderness. I discussed with the patient regarding options of continued medical therapy or the incision and drain age. He is concerned about cost of the operating room and we will therefore order supplies to the [facility] for possible incision and drainage to be performed this evening. We will follow up with him. If he does show significant improvement clinically, we can hold off on procedural intervention. AMANDA Voice ID: [id number] Report ID: [id number]
--- NOTE | 2019-01-28 12:19 | CON ---
Date of Consultation: 01/28/2019 Reason For Consultation: Facial cellulitis with risk of abscess development. History Of Present Illness: Mr. Kramer is a 38-year-old male with a history of uncontrolled diabet es and hypertension, admitted for facial abscess/cellulitis. The patient states that on the morning of January 26, he woke up after scratching the area on the right chin overnight. He noted that the fac e was swollen. The area was hard and firm and very painful. He denied any fevers or chills. Due to the pain in chin, he decided to come to the emergency room and was brought by his neighbor. At that time he underwent evaluation including labs with a blood sugar of 488. He also underwent a CT scan of the neck and face with superficial inflammatory changes in the right aspect of the jaw without abs cess. Allergies: NO KNOWN DRUG ALLERGIES. Home Medications: Adderall, [place], metformin, gabapentin, Robaxin, and metoprolol. 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 Details of this procedure and injury are not explored in detail. Other Past Medical History: Includes asthma, history of pulmonary embolism, hypertension, diabetes. Family History: Father with heart disease, hypertension, lung disease, diabetes and kidney disease. Mother with heart disease, hypertension, and peripheral vascular disease. Brother with heart diseas e, diabetes and kidney disease. Sister with back problems and thyroid problems. Social History: Former smoker. Admits to alcohol use but denies drug use. Review of Systems: Reviewed, as documented by the emergency room staff and otherwise unchanged. Physical Examination: Vital Signs: The patient is afebrile. vital signs are stable. General: The patient is alert and oriented. He is in [id number] distress from discomfort. Hi s face is atraumatic and symmetric. His pupils are equal, round, reactive. Extraocular movements ar e intact. His external ear is unremarkable. The nares are patent. His oral cavity including the li ps, gingiva, teeth, tongue, palate, and floor of mouth are unremarkable. There is no obvious caries as a source of neck infection. At the time of my exam, the face and neck did not appear overly swoll en or erythematous. At the inferior right aspect of his plummer, there is a 3 cm area of induration wi th erythema. There is a small central crust, but no palpable fluctuance. No evidence of coalescence , infection or abscess. Data: A CT images of the neck and face are personally reviewed by me. There is significant soft tis edin swelling. There is an area of soft tissue thickening consistent with the location of palpable in duration, but no evidence of amilcar abscess. Laboratory Studies: On admission show elevated white blood cell count with a left shift. His coagul ation studies are normal. Urine shows a high level of glucose, moderate level of protein and ketones . His urine tox screen was negative. Assessment: Facial cellulitis without active abscess at this time. Plan And Recommendations: Continue IV antibiotics and monitor clinically. There is a chance that th e area of induration could collapse into an abscess and required drainage within the next 48-72 hours . We will continue to monitor along with you. AMANDA Voice ID: [id number] Report ID: [id number]
[2019-01-28] MEDS ORDERED: LIDOCAINE 2% W/EPI 1:200,000 MPF 20 ML VIAL IM SCH (15:00)
--- NOTE | 2019-01-28 15:49 | P.PN ---
Subjective Date of Service: 01/28/19 Chief Complaint: Facial swelling and pain Subjective: Improving Patient seen and examined at bedside. No family at bedside. Chart reviewed and case discussed with nursing staff. Redness improved. Patient still complaining of pain. Patient currently on IV morphine, tramadol and norco. Review of Systems 10-point ROS is otherwise unremarkable Physical Examination - Vital Signs Temperature: 97 F Blood Pressure: 123/83 Pulse: 73 Respirations: 20 Pulse Ox (%): 100 - Physical Exam General: Alert, In no apparent distress, Oriented x3 HEENT: Atraumatic, PERRLA, Other (Facial cellulitis, right addis eof chin. No area of fluctuance noted. ), EOMI Neck: Supple, JVD not distended Respiratory: Clear to auscultation bilaterally, Normal air movement Cardiovascular: Regular rate/rhythm, Normal S1 S2 Gastrointestinal: Normal bowel sounds, No tenderness Musculoskeletal: No tenderness Integumentary: No rashes Neurological: Normal speech, Normal tone, Normal affect Lymphatics: No axilla or inguinal lymphadenopathy Assessment And Plan - Current Problems (Diagnosis) (1) Facial cellulitis Current Visit: Yes Status: Acute (2) Diabetes Current Visit: No Status: Chronic (3) Diabetic foot ulcer Current Visit: No Status: Chronic (4) Obesity Onset Date: 10/31/14 Current Visit: No Status: Acute (5) Hypertension Onset Date: 10/31/14 Current Visit: No Status: Chronic - Plan Continue IV clindamycin. ENT consulted, recommendations appreciated. Possible bedside I&D with Dr. Mattson today. Continue with strict blood sugar control. Continue wound care on foot ulcer, currently bandaged. Patient has been following up as an outpatient for this. Pain control. Zofran for nausea DVT prophylaxis: Lovenox GI prophylaxis: None Diet: Diabetic Disposition: Pending symptomatic improvement, IV antibiotics. Possible bedside I&D. Anticipate discharge in the next 24 hrs.
[2019-01-28] MEDS ORDERED: MORPHINE 4 MG/ML SYR IV ONE (18:41)
--- NOTE | 2019-01-28 19:02 | P.OP ---
Cylinder Honer: NONE,NONE Preoperative diagnosis: chin abcess Postoperative diagnosis: same Primary procedure: I&D abscess of skin/subcutaneous tissue Anesthesia: local inflitration (2% lidocaine with epi), 10ml total; morphine 8mg IVP Estimated blood loss: <5ml Specimen: none; due to prior Abx culture felt to be of low yield Findings: moderate pus Operative Technique: After consent and local infiltration of 2% lido with epi, the chin was clipped around the right submental region. A 15 blade was used to incise the skin and approximately 5ml of pus and blood with some of the local anesthetic was noted. Septations were divided with hemostats. The abscess cavity was packed with 1/ 4 inch iodoform gauze and dressed with 4x4 gauze and tape Complications: None Implants: gauze packing, single strip Fluids & blood products: NA Transferred to: Other (NA - performed at patient's bedside) Condition: Good
[2019-01-29] MEDS: CLINDAMYCIN PHOSPHATE 600 MG in NA CHLORIDE 0.9% 50 ML IV SCH ×2 (00:05→08:25)
[2019-01-29] MEDS: TRAMADOL HCL 50 MG TAB PO PRN ×2 (00:05→08:27)
[2019-01-29] MEDS: HYDROCODONE/APAP 10/325 TAB PO PRN (03:26)
[2019-01-29] MEDS: MORPHINE 4 MG/ML SYR IV PRN ×2 (04:35→10:32)
[2019-01-29] MEDS: METHOCARBAMOL 500 MG TAB PO SCH ×2 (05:38→14:02)
[2019-01-29] MEDS: ONDANSETRON 4 MG/2 ML VIAL IV PRN ×2 (05:39→12:30)
[2019-01-29 06:00] LABS: Absolute Lymphocytes (CBC) 2.9 K/uL (0.7-4.9); Absolute Monocytes 0.7 K/uL (0.1-1.3); Absolute Neutrophil 3.2 K/uL (1.8-8.0); Basophils % 0.5 % (0-1.3); Eosinophils % 2.1 % (0-4.4); Hematocrit 43.9 % (39.6-49.0); Lymphocytes % 41.2 % (15.3-44.8); MPV 9.4 fL (7.6-11.3); Monocytes % 10.6 % (3.3-12.3)
[2019-01-29 06:15] LABS: ALT/SGPT 31 U/L (12-78); AST/SGOT 16 U/L (15-37); Albumin 3.2 g/dL (3.4-5.0); Alkaline Phosphatase 77 U/L (45-117); BUN Blood Urea Nitrogen 20 mg/dL (7-18); Bicarbonate 28 mmol/L (21-32); Bilirubin Total 0.6 mg/dL (0.2-1.0); Glucose Level 215 mg/dL (74-106); Potassium 4.5 mmol/L (3.5-5.1); Sodium Level 135 mmol/L (136-145)
[2019-01-29] MEDS: INSULIN -REGULAR HUMAN 50 UNIT/0.5 ML ML SQ SCH ×2 (07:30→11:30)
[2019-01-29] MEDS: GABAPENTIN 300 MG CAP PO SCH ×2 (08:26→14:02)
[2019-01-29] MEDS: ENOXAPARIN 40 MG/0.4 ML SQ SCH (08:26)
[2019-01-29] MEDS: METFORMIN HCL 500 MG TAB PO SCH (08:26)
[2019-01-29] MEDS: METOPROLOL XL 50 MG TAB PO SCH (08:26)
[2019-01-29 11:44] VITALS: O2SAT 98
--- NOTE | 2019-01-29 12:36 | P.DS ---
Admission Date: 01/26/19 Discharge Date: 01/29/19 Disposition: ROUTINE DISCHARGE Discharge Condition: GOOD Reason for Admission: Facial swelling and pain Consultations: ENT - Dr. Suarez Procedures: Bedside I&D on chin abscess - Problems (1) Facial cellulitis Status: Acute (2) Diabetes Status: Chronic (3) Diabetic foot ulcer Status: Chronic (4) Obesity Onset Date: 10/31/14 Status: Acute (5) Hypertension Onset Date: 10/31/14 Status: Chronic Brief History of Present Illness: This is a 38-year-old male with history of uncontrolled diabetes and hypertension admitted for facial abscess/cellulitis. Per patient, he woke up this morning after scratching area on the chin overnight. He noted that his face was swollen, area was really hard and painful. He denied any fevers or chills, chest pain, shortness of breath, headaches, vision changes, GI or complaints or any dizziness/lightheadedness. Because of the pain on the chin, he decided to come to the ER. He was brought to the ER by his neighbor. In the ER, his blood pressure was 158/112, heart rate of 110, afebrile at 97.9, satting 100% on room air with a BMI of 39.53. His labs were remarkable for a blood sugars of 488. CT of the neck/face with superficial inflammatory changes along the right aspect of the jaw without any abscess. ENT was consulted from the ER. At the time of my exam, patient was alert oriented x3, in mild to moderate distress secondary to pain on the right side of the jaw, hemodynamically stable. Hospital Course: He was admitted for IV antibiotics and ENT evaluation for facial cellulitis. ENT was consulted. He was started on IV antibiotics. He was provided with pain control. Symptoms did not improve, therefor a bedside I&D was done by ENT. This helped his symptoms more. He was then discharged on PO antibiotics. He was discharged with instructions to clean, dry and pack wound BID. He will follow up with ENT in 2-4 weeks. Patient to call ENT clinic if any urgent need. ER precautions given to patient for worsening symptoms. He otherwise remained stable throughout the stay. Vital Signs/Physical Exam: Temp Pulse Resp BP Pulse Ox 97.7 F 70 16 147/80 H 100 01/29/19 08:00 01/29/19 08:26 01/29/19 08:00 01/29/19 08:26 01/29/19 08:00 General: Alert, In no apparent distress, Oriented x3 HEENT: Atraumatic, PERRLA, Other (chin abscess, improved. bandage clean dry and intact), EOMI Neck: Supple, JVD not distended Respiratory: Clear to auscultation bilaterally, Normal air movement Cardiovascular: Regular rate/rhythm, Normal S1 S2 Gastrointestinal: Normal bowel sounds, No tenderness Musculoskeletal: No tenderness Integumentary: No rashes, Diabetic ulcer (noted with bangade; s.p amputation. Bandage clean, dry and intact ) Neurological: Normal speech, Normal tone, Normal affect Lymphatics: No axilla or inguinal lymphadenopathy Laboratory Data at Discharge: WBC 7.0 K/uL (4.3-10.9) D 01/29/19 05:18 Hgb 14.7 g/dL (13.6-17.9) 01/29/19 05:18 Hct 43.9 % (39.6-49.0) 01/29/19 05:18 Plt Count 251 K/uL (152-406) 01/29/19 05:18 PT 10.8 SECONDS (9.5-12.5) 01/26/19 09:55 INR 0.91 01/26/19 09:55 Sodium 135 mmol/L (136-145) L 01/29/19 05:18 Potassium 4.5 mmol/L (3.5-5.1) 01/29/19 05:18 BUN 20 mg/dL (7-18) H 01/29/19 05:18 Creatinine 0.89 mg/dL (0.55-1.3) 01/29/19 05:18 Glucose 215 mg/dL (74-106) H 01/29/19 05:18 Phosphorus 3.5 mg/dL (2.5-4.9) 01/27/19 06:31 Magnesium 2.0 mg/dL (1.8-2.4) 01/26/19 09:55 Total Bilirubin 0.6 mg/dL (0.2-1.0) 01/29/19 05:18 AST 16 U/L (15-37) 01/29/19 05:18 ALT 31 U/L (12-78) 01/29/19 05:18 Alkaline Phosphatase 77 U/L (45-117) 01/29/19 05:18 Home Medications: RX: Dextroamphetamine/Amphetamine [Adderall Xr 20 mg Capsule] 1 cap PO BID 01/26 RX: Gabapentin 300 mg PO TID 01/26/19 RX: Hydrocodone Bit/Acetaminophen [[place] 10-325 Tablet] 1 tab PO Q6HP PRN RX: Metformin HCl [Glucophage] 500 mg PO BID 01/26/19 RX: Methocarbamol [Robaxin*] 500 mg PO Q8H 01/26/19 RX: Metoprolol Succinate [Toprol Xl*] 50 mg PO BID 01/26/19 RX: Clindamycin HCl [Cleocin HCl] 300 mg PO BID #14 capsule 01/29/19 New Medications: RX: Clindamycin HCl [Cleocin HCl] 300 mg PO BID #14 capsule Patient Discharge Instructions: Please follow up with the primary care physician in 2-3 days. Please follow up with the pain management physician in 1 week. Please follow up with ENT if symptoms get worse. New medications: Clindamycin, an antibiotic for your infection. Please return to the emergency room for worsening symptoms. Diet: ADA Activity: Ad denzel Followup: Omari Thao MD [Primary Care Provider] - 2-3 Days (Call to schedule an appointment ) Jessica Mattson MD [ACTIVE - CAN ADMIT] - ((ENT- Ears, Nose, Throat)- Call to schedule an appointment ) Time spent managing pt's care (in minutes): 55
[2019-01-29 12:54] VITALS: BP 154/95; TEMP 97.8
== END 2019-01-29 15:10 | disposition home or self-care (01) | DRG 603 ==
LOC: ER 09:17 → ERHOLD 12:31 → 4TH 13:59
PROVIDERS: ADMIT Family Medicine; ATTEND Family Medicine
PROC: 0J913ZZ Drainage of Face Subcutaneous Tissue and Fascia, Percutaneous Approach (ICD-10-PCS; principal; 2019-01-28)
DX: L03.211 Cellulitis of face (principal); E66.9 Obesity, unspecified; Z68.39 Body mass index [BMI] 39.0-39.9, adult; I10 Essential (primary) hypertension; E11.621 Type 2 diabetes mellitus with foot ulcer; Z87.891 Personal history of nicotine dependence
CPT/HCPCS: 36415; 70491; 71045; 80048; 80053; 80076; 80307; 81003; 81015; 82962; 83735; 83880; 84100; 84484; 85025; 85610; 87070; 87075; 87205; 93005; 94760; 96365; 96366; 96372; 96375; 99285; J1100; J1650; J2405; J2543; J3010; J3370; Q9967; S0077

== ENCOUNTER 2019-05-09 14:00 | Emergency (ER) | payer OTHER, SELFPAY ==
--- OUTSIDE RECORDS SUMMARY | 2019-05-09 14:03 | XMS REPORT | Clinical Summary ---
:1980 Author Organization [facility] Address [address] [place] [address] Care Team Providers Name Role Phone Asked, No Pcp Primary Care Provider Unavailable Allergies Active Allergy Reactions Severity Noted Date Comments Propoxyphene N-Acetaminophen Itching 07/08/2018 Medications Medication Sig Dispensed Refills Start Date End Date Status metoprolol Take 50 mg by 0 Active succinate XL mouth 2 (two) (TOPROL-XL) 50 mg times a day. 24 hr tablet dextroamphetamine- Take 20 mg by 0 Active amphetamine mouth 2 (two) (ADDERALL) 20 mg times a day. tablet gabapentin Take 300 mg by 0 Active (NEURONTIN) 300 mg mouth 3 capsule (three) times a day. ibuprofen Take 600 mg by 0 Active (ADVIL,MOTRIN) 600 mouth every 8 MG tablet (eight) hours as needed for mild pain. naproxen sodium Take 220 mg by 0 Active (ALEVE) 220 MG mouth every 8 tablet (eight) hours as needed for mild pain. metFORMIN Take 500 mg by 0 Active (GLUCOPHAGE) 500 mouth 2 (two) mg tablet times a day with meals. collagenase Apply to wound 30 g 3 07/21/2018 Active (SANTYL) ointment daily with wet to dry dressing SANTYL ointment APPLY 90 g 1 07/27/2018 Active TOPICALLY DAILY. acetaminophen Take 325 mg by 0 Discontinued (TYLENOL) 325 MG mouth 3 8 (Error) tablet (three) times a day as needed for fever. amoxicillin-pot Take 1 tablet 42 tablet 0 07/17/2018 clavulanate by mouth 2 8 (AUGMENTIN) (two) times a 875-125 mg per day for 21 tablet days. linezolid (ZYVOX) Take 1 tablet 42 tablet 0 07/17/2018 600 mg tablet (600 mg total) 8 by mouth 2 (two) times a day for 21 days. acetaminophen-code Take 1 tablet 30 tablet 0 07/21/2018 ine (TYLENOL WITH by mouth every 8 CODEINE #3) 300-30 6 (six) hours mg per tablet as needed for moderate pain for up to 10 days. collagenase Apply 90 g 2 07/21/2018 (SANTYL) ointment topically 8 daily for 30 days. Active Problems Problem Noted Date Open wound of right great toe 07/08/2018 Encounters Date Type Specialty Care Team Description 07/22/2018 Refill Podiatry Rubina Kenney DPM 07/21/2018 Office Visit Podiatry Rubina Kenney Open wound of right great toe, subsequent encounter (Primary Dx); Ozzy Rocha DPM Trauma complication, early, subsequent encounter 07/10/2018 Anesthesia Event General Surgery Ashok Joy MD McCollum, Michelle, RN 07/10/2018 Surgery General Surgery KenneyRubina jacinto INCISION AND Ozzy Rocha DPM DRAINAGE, RIGHT GREAT TOE OPEN FX 07/08/2018 - Hospital Encounter General Internal Pio Kelly Open wound of right great toe, initial encounter (Primary Dx); 07/17/2018 Noe Emery MD Cellulitis of great toe of right foot Michael Coker MD Korimilli, Vijay, MD 07/08/2018 Travel after 05/08/2018 Social History Tobacco Use Types Packs/Day Years [...] Vital Signs Vital Sign Reading Time Taken Comments Blood Pressure 139/91 07/21/2018 8:55 AM [employer] Pulse 68 07/21/2018 8:55 AM [employer] Temperature 36.2 C (97.2 F) 07/17/2018 11:25 AM [employer] Respiratory Rate 18 07/17/2018 11:25 AM [employer] Oxygen Saturation 98% 07/17/2018 11:25 AM [employer] Inhaled Oxygen Concentration - - Weight 106 kg (234 lb) 07/08/2018 5:25 PM [employer] Height 172.7 cm (5' 8") 07/08/2018 5:06 PM [employer] Body Mass Index 35.58 07/08/2018 5:06 PM [employer] Plan of Treatment Health Maintenance Due Date Last Done Comments INFLUENZA VACCINE 03/25/2019 Procedures Procedure Name Priority Date/Time Associated Comments Diagnosis POC GLUCOSE Routine 07/17/2018 11:27 AM Results for this [employer] procedure are in the results section. POC GLUCOSE Routine 07/17/2018 7:35 AM Results for this [employer] procedure are in the results section. POC GLUCOSE Routine 07/16/2018 9:13 PM Results for this [employer] procedure are in the results section. POC GLUCOSE Routine 07/16/2018 5:17 PM Results for this [employer] procedure are in the results section. VANCOMYCIN LEVEL, Timed 07/16/2018 12:15 PM Results for this TROUGH [employer] procedure are in the results section. POC GLUCOSE Routine 07/16/2018 11:35 AM Results for this [employer] procedure are in the results section. POC GLUCOSE Routine 07/16/2018 7:22 AM Results for this [employer] procedure are in the results section. ESTIMATED GFR Routine 07/16/2018 4:59 AM Results for this [employer] procedure are in the results section. BASIC METABOLIC Routine 07/16/2018 4:59 AM Results for this PANEL [employer] procedure are in the results section. HC COMPLETE BLD Routine 07/16/2018 4:59 AM Results for this COUNT W/AUTO DIFF [employer] procedure are in the results section. POC GLUCOSE Routine 07/15/2018 9:47 PM Results for this [employer] procedure are in the results section. POC GLUCOSE Routine 07/15/2018 4:37 PM Results for this [employer] procedure are in the results section. POC GLUCOSE Routine 07/15/2018 11:36 AM Results for this [employer] procedure are in the results section. POC GLUCOSE Routine 07/15/2018 7:32 AM Results for this [employer] procedure are in the results section. POC GLUCOSE Routine 07/14/2018 9:19 PM Results for this [employer] procedure are in the results section. US DUPLEX VENOUS Routine 07/14/2018 5:40 PM Results for this LOWER EXTREMITY [employer] procedure are in RIGHT the results section. POC GLUCOSE Routine 07/14/2018 4:39 PM Results for this [employer] procedure are in the results section. POC GLUCOSE Routine 07/14/2018 11:51 AM Results for this [employer] procedure are in the results section. POC GLUCOSE Routine 07/14/2018 7:56 AM Results for this [employer] procedure are in the results section. ESTIMATED GFR Routine 07/14/2018 5:55 AM Results for this [employer] procedure are in the results section. CBC HEMOGRAM Routine 07/14/2018 5:55 AM Results for this [employer] procedure are in the results section. BASIC METABOLIC Routine 07/14/2018 5:55 AM Results for this PANEL [employer] procedure are in the results section. POC GLUCOSE Routine 07/13/2018 8:51 PM Results for this [employer] procedure are in the results section. POC GLUCOSE Routine 07/13/2018 5:24 PM Results for this [employer] procedure are in the results section. POC GLUCOSE Routine 07/13/2018 11:29 AM Results for this [employer] procedure are in the results section. CONSULT TO OSTOMY Routine 07/13/2018 10:14 AM CARE NURSE [employer] POC GLUCOSE Routine 07/13/2018 8:09 AM Results for this [employer] procedure are in the results section. ESTIMATED GFR Routine 07/13/2018 5:00 AM Results for this [employer] procedure are in the results section. CREATININE LEVEL Routine 07/13/2018 5:00 AM Results for this [employer] procedure are in the results section. POC GLUCOSE Routine 07/12/2018 8:40 PM Results for this [employer] procedure are in the results section. POC GLUCOSE Routine 07/12/2018 4:16 PM Results for this [employer] procedure are in the results section. POC GLUCOSE Routine 07/12/2018 12:03 PM Results for this [employer] procedure are in the results section. POC GLUCOSE Routine 07/12/2018 7:33 AM Results for this [employer] procedure are in the results section. VANCOMYCIN LEVEL, Timed 07/12/2018 4:10 AM Results for this TROUGH [employer] procedure are in the results section. POC GLUCOSE Routine 07/11/2018 9:16 PM Results for this [employer] procedure are in the results section. POC GLUCOSE Routine 07/11/2018 4:58 PM Results for this [employer] procedure are in the results section. POC GLUCOSE Routine 07/11/2018 11:39 AM Results for this [employer] procedure are in the results section. POC GLUCOSE Routine 07/11/2018 7:35 AM Results for this [employer] procedure are in the results section. ESTIMATED GFR Routine 07/11/2018 5:45 AM Results for this [employer] procedure are in the results section. MAGNESIUM LEVEL Routine 07/11/2018 5:45 AM Results for this [employer] procedure are in the results section. CBC HEMOGRAM Routine 07/11/2018 5:45 AM Results for this [employer] procedure are in the results section. BASIC METABOLIC Routine 07/11/2018 5:45 AM Results for this PANEL [employer] procedure are in the results section. POC GLUCOSE Routine 07/10/2018 9:19 PM Results for this [employer] procedure are in the results section. POC GLUCOSE Routine 07/10/2018 5:59 PM Results for this [employer] procedure are in the results section. POC GLUCOSE Routine 07/10/2018 4:47 PM Results for this [employer] procedure are in the results section. ANESTHESIA Routine 07/10/2018 4:14 PM INTUBATION [employer] Procedure Note - Robbin Harris CRNA - 07/10/2018 4:14 PM [employer] ANESTHESIA INTUBATION Date/Time: 07/10/2018 4:12 PM Performed by: Robbin Harris CRNA Authorized by: Ashok Joy MD Location: OR Anesthesiologist: Ashok Joy MD Resident/ADMINISTRATIVE FELLOW/AA: Robbin Harris CRNA Preoxygenated with 100% O2: Yes C-spine Precautions Maintained Throughout: Yes Mask Ventilation: Not attempted Final Airway Type: Supraglottic airway LMA Size: 5 Number of Attempts at Approach: 1 POC GLUCOSE Routine 07/10/2018 12:16 PM [employer] POC GLUCOSE Routine 07/10/2018 8:12 AM [employer] SMEAR REVIEW Routine 07/10/2018 4:00 AM [employer] PROTHROMBIN TIME WITH INR Routine 07/10/2018 4:00 AM [employer] ESTIMATED GFR Routine 07/10/2018 4:00 AM [employer] HC COMPLETE BLD COUNT W/AUTO Routine 07/10/2018 4:00 AM [employer] Results for this DIFF procedure are in the results section. BASIC METABOLIC PANEL Routine 07/10/2018 4:00 AM [employer] VANCOMYCIN LEVEL, TROUGH Timed 07/10/2018 4:00 AM [employer] POC GLUCOSE Routine 07/09/2018 9:47 PM [employer] POC GLUCOSE Routine 07/09/2018 4:43 PM [employer] POC GLUCOSE Routine 07/09/2018 11:31 AM [employer] POC GLUCOSE Routine 07/09/2018 7:31 AM [employer] ESTIMATED GFR Routine 07/09/2018 4:10 AM [employer] HEMOGLOBIN A1C Routine 07/09/2018 4:10 AM [employer] LACTIC ACID LEVEL Routine 07/09/2018 4:10 AM [employer] MAGNESIUM LEVEL Routine 07/09/2018 4:10 AM [employer] PHOSPHORUS LEVEL Routine 07/09/2018 4:10 AM [employer] HC COMPLETE BLD COUNT W/AUTO Routine 07/09/2018 4:10 AM [employer] Results for this DIFF procedure are in the results section. COMPREHENSIVE METABOLIC Routine 07/09/2018 4:10 AM [employer] Results for this PANEL procedure are in the results section. POC GLUCOSE Routine 07/09/2018 12:03 AM [employer] LACTIC ACID LEVEL, SEPSIS - Timed 07/08/2018 10:04 PM [employer] Results for this NOW AND REPEAT 2X EVERY 3 procedure are in the HOURS results section. MRI FOOT WO CONTRAST RIGHT Routine 07/08/2018 8:36 PM [employer] US DUPLEX ARTERIAL LOWER Routine 07/08/2018 7:17 PM [employer] Results for this EXTREMITY RIGHT procedure are in the results section. US DUPLEX VENOUS LOWER Routine 07/08/2018 7:10 PM [employer] Results for this EXTREMITY RIGHT procedure are in the results section. XR FOOT 3+ VW RIGHT STAT 07/08/2018 3:01 PM [employer] ESTIMATED GFR STAT 07/08/2018 2:59 PM [employer] LACTIC ACID LEVEL, SEPSIS - Timed 07/08/2018 2:59 PM [employer] Results for this NOW AND REPEAT 2X EVERY 3 procedure are in the HOURS results section. COMPREHENSIVE METABOLIC STAT 07/08/2018 2:59 PM [employer] Results for this PANEL procedure are in the results section. HC COMPLETE BLD COUNT W/AUTO STAT 07/08/2018 2:59 PM [employer] Results for this DIFF procedure are in the results section. BLOOD CULTURE, AEROBIC & Routine 07/08/2018 2:54 PM [employer] Results for this ANAEROBIC procedure are in the results section. BLOOD CULTURE, AEROBIC & Routine 07/08/2018 2:45 PM [employer] Results for this ANAEROBIC procedure are in the results section. ANAEROBIC CULTURE Routine 07/08/2018 2:40 PM [employer] GRAM STAIN Routine 07/08/2018 2:40 PM [employer] AEROBIC CULTURE Routine 07/08/2018 2:40 PM [employer] after 05/08/2018 Results POC glucose (07/17/2018 11:27 AM [employer])Only the most recent of36 resultswithin the time period is included. [facility] POC glucose 99 65 - 99 mg/dL [facility] Comment: [facility] RN Notified Meter ID: [id number] Ticket Manager: Andrea Fried Specimen Performing Organization Address City/[facility] Phone Number [facility] DEPARTMENT OF PATHOLOGY [address] [place] [address] Vancomycin level, trough (07/16/2018 12:15 PM [employer])Only the most recent of3 resultswithin the time period is included. [facility] Vancomycin, 12.5 10.0 - 20.0 [facility] trough Comment: ug/mL [place] Therapeutic Ranges: HOSPITAL Peak30.0 - 40.0 ug/mL [place]ov[place]54.0 - 20.0 ug/mL Specimen Blood Performing Organization Address [facility] Phone Number [facility] DEPARTMENT OF PATHOLOGY [address] [place] [address]. [place] [address] Estimated GFR (07/16/2018 4:59 AM [employer])Only the most recent of7 resultswithin the time period is included. [facility] Estimated GFR >=90 mL/min/1.73 [facility] Comment: m2 [place] CatergoryUnitsInterpretation HOSPITAL G1 >=90 Normal or high G2 60-89Mildly decreased [id number] to moderately decreased [id number] to severely decreased G4 15-29Severely decreased G5 <15Kidney failure The eGFR was calculated using the Chronic Kidney Disease Epidemiology Collaboration (CKD-EPI) equation. Interpretation is based on recommendations of the National Kidney Foundation-Kidney Disease Outcomes Quality Initiative (NKF-KDOQI) published in 2014. Specimen Plasma specimen Performing Organization Address City/State/Zipcode Phone Number [facility] DEPARTMENT OF PATHOLOGY [address] [place] [address] AND GENOMIC MEDICINE [facility] [address] [place] [address] HOSPITAL CBC with platelet and differential (07/16/2018 4:59 AM [employer])Only the most recent of4 resultswithin the time period is included. WBC 8.0 4.5 - 11.0 k/uL [facility] RBC 4.15 (L) 4.40 - 6.00 [facility] m/uL [facility] HGB 12.9 (L) 14.0 - 18.0 [facility] g/dL [facility] HCT 39.8 (L) 41.0 - 51.0 % [facility] MCV 95.9 82.0 - 100.0 fL [facility] MCH 31.1 27.0 - 34.0 pg [facility] MCHC 32.4 31.0 - 37.0 [facility] g/[facility] RDW - [place] 41.4 37.0 - 55.0 fL [facility] MPV 10.8 6.9 - 11.0 fL [facility] Platelet count 212 150 - 400 K/uL [facility] Nucleated RBC 0.00 /100 WBC [facility] Neutrophils 56.8 39.0 - 69.0 % [facility] Lymphocytes 27.4 25.0 - 45.0 % [facility] Monocytes 12.8 (H) 0.0 - 10.0 % [facility] Eosinophils 2.1 0.0 - 5.0 % [facility] Basophils 0.5 0.0 - 1.0 % [facility] Immature granulocytes 0.4 0.0 - 1.0 % [facility] Specimen Blood Performing Organization Address City/[facility]/Zipcode Phone Number [facility] DEPARTMENT OF PATHOLOGY [address] [place] [address] AND [facility] [id number] [place] [address] Basic metabolic panel (07/16/2018 4:59 AM [employer])Only the most recent of4 resultswithin the time period is included. Sodium 138 135 - 148 mEq/L [facility] Potassium 4.2 3.5 - 5.0 mEq/L [facility] Chloride 101 98 - 112 mEq/L [facility] CO2 27 24 - 31 mEq/L [facility] Anion gap 10@ANIO 7 - 15 mEq/L [facility] BUN 15 6 - 20 mg/dL [facility] Creatinine 0.88 0.70 - 1.20 mg/dL [facility] Glucose 89 65 - 99 mg/dL [facility] Calcium 9.0 8.3 - 10.2 mg/dL [facility] Specimen Plasma specimen Performing Organization Address City/State/Zipcode Phone Number [facility] DEPARTMENT OF PATHOLOGY [address] [place] [address] AND [facility] [id number] [place] [address] Us duplex venous lower extremity (07/14/2018 5:40 PM [employer])Only the most recent of2 resultswithin the time [...] DVT. Right inguinal lymph nodes, likely reactive. [facility]-[id number] Procedure Note Interface, Radiology Results Incoming - 07/14/2018 5:50 PM [employer] EXAMINATION: US DUPLEX VENOUS LOWER EXTREMITY RIGHT [...] DVT. Right inguinal lymph nodes, likely reactive. [facility]-[id number] Performing Organization Address City/[facility]/Zipcode Phone Number [facility] [address] [place] [address] CBC hemogram (07/14/2018 5:55 AM [employer])Only the most recent of2 resultswithin the time period is included. WBC 7.9 4.5 - 11.0 k/uL [facility] RBC 4.31 (L) 4.40 - 6.00 m/uL [facility] HGB 13.7 (L) 14.0 - 18.0 g/dL [facility] HCT 41.2 41.0 - 51.0 % [facility] MCV 95.6 82.0 - 100.0 fL [facility] MCH 31.8 27.0 - 34.0 pg [facility] MCHC 33.3 31.0 - 37.0 g/dL [facility] RDW - SD 41.6 37.0 - 55.0 fL [facility] MPV 10.9 6.9 - 11.0 fL [facility] Platelet count 212 150 - 400 K/uL [facility] Nucleated RBC 0.00 /100 WBC [facility] Specimen Blood Performing Organization Address City/[facility]/Zipcode Phone Number [facility] DEPARTMENT OF PATHOLOGY [address] [place] [address] AND GENOMIC MEDICINE [facility] [address] [place] [id number] HOSPITAL Creatinine level (07/13/2018 5:00 AM [employer]) Creatinine 0.92 0.70 - 1.20 mg/dL [facility] Specimen Plasma specimen Performing Organization Address City/[facility]/Zipcode Phone Number [facility] DEPARTMENT OF PATHOLOGY [address] [place] [address] [place] [address] HOSPITAL Magnesium level (07/11/2018 5:45 AM [employer])Only the most recent of2 resultswithin the time period is included. Magnesium 2.1 1.6 - 2.6 mg/dL [facility] Specimen Plasma specimen Performing Organization Address City/[facility]/Zipcode Phone Number [facility] DEPARTMENT OF PATHOLOGY [address] [place] [address] [place] [address] HOSPITAL Smear review (07/10/2018 4:00 AM [employer]) Pathologist [facility] Platelet slide review Sunitha adequate [facility] Anisocytosis Moderate [facility] Spherocytes Occasional [facility] Enlarged platelets Moderate (A) [facility] Giant platelets Occasional [facility] Specimen Performing Organization Address City/[facility] Phone Number [facility] DEPARTMENT OF PATHOLOGY [address] [place] [address] Prothrombin time with INR (07/10/2018 4:00 AM [employer]) Prothrombin time 13.2 11.5 - 14.5 [facility] INR 1.0 [place] Comment: [facility] International Normalized Ratio (INR) is a therapeutic [facility] monitoring tool for patients who are stable on oral anticoagulant therapy. An INR of 2.0-3.0 is suggested for deep vein thrombosis/pulmonary embolism. Specimen Blood Performing Organization Address City/[facility]/Zipcode Phone Number [facility] DEPARTMENT OF PATHOLOGY [address] [place] [address] [place] [address] HOSPITAL Phosphorus level (07/09/2018 4:10 AM [employer]) Phosphorus 3.6 2.4 - 4.5 mg/dL [facility] Specimen Plasma specimen Performing Organization Address City/[facility]/Zipcode Phone Number [facility] DEPARTMENT OF PATHOLOGY [address] [place] [address] Lactic acid level (07/09/2018 4:10 AM [employer]) Lactic acid 1.5 0.5 - 2.2 mmol/L [facility] Specimen Plasma specimen Performing Organization Address City/State/Zipcode Phone Number [facility] DEPARTMENT OF PATHOLOGY [address] [place] [address] Hemoglobin A1c (07/09/2018 4:10 AM [employer]) Hemoglobin A1C 8.1 (H) 4.0 - 6.0 % [facility] Comment: [facility] Less than 6% - Goal of therapy for Type II Diabetes Less than 7%-Goal of therapy for Type I Diabetes Less than 8%-Acceptable control for Type I or Type II Diabetes Greater than 8%-Unacceptable control; action indicated. ([id number]) Specimen Blood Performing Organization Address City/[facility] Phone Number [facility] DEPARTMENT OF PATHOLOGY [address] [place] [address] Comprehensive metabolic panel (07/09/2018 4:10 AM [employer])Only the most recent of2 resultswithin the time period is included. Sodium 134 (L) 135 - 148 mEq/L [facility] Potassium 3.7 3.5 - 5.0 mEq/L [facility] Chloride 99 98 - 112 mEq/L [facility] CO2 24 24 - 31 mEq/L [facility] Anion gap 11@ANIO 7 - 15 mEq/L [facility] BUN 10 6 - 20 mg/dL [facility] Creatinine 0.63 (L) 0.70 - 1.20 [facility] mg/dL [facility] Glucose 131 (H) 65 - 99 mg/dL [facility] Calcium 8.8 8.3 - 10.2 [facility] mg/dL [facility] Protein 6.7 6.3 - 8.3 g/dL [facility] Albumin 3.9 3.5 - 5.0 g/dL [facility] A/G ratio 1.4 0.7 - 3.8 [facility] Alkaline phosphatase 54 40 - 129 U/L [facility] AST 17 10 - 50 U/L [facility] ALT 25 5 - 50 U/L [facility] Total bilirubin 0.6 0.2 - 1.2 mg/dL [facility] Specimen Plasma specimen Performing Organization Address City/[facility] Phone Number [facility] DEPARTMENT OF PATHOLOGY [id number] [place] [address] [address] Lactic acid level, SEPSIS - Now and repeat 2x every 3 hours (07/08/2018 10:04 PM LOGGING CREW SUPERVISOR)Only the most recent of2 resultswithin the time period is included. Lactic acid 1.8 0.5 - 2.2 mmol/L [facility] Specimen Plasma specimen Performing Organization Address City[facility] Phone Number [facility] DEPARTMENT OF PATHOLOGY [address] [place] [address] [address] GEN[address] MRI Foot Wo Contrast Right (07/08/2018 8:36 PM LOGGING CREW SUPERVISOR) Specimen Narrative Performed At MRI FOOT WO [...] participate in the care of your patient. [id number] Procedure Note Interface, Radiology Results Incoming - 07/08/2018 9:04 PM LOGGING CREW SUPERVISOR MRI FOOT WO CONTRAST RIGHT CLINICAL INDICATION: [...] participate in the care of your patient. [facility]-[id number] Performing Organization Address City/State/Zipcode Phone Number [facility] [address] [place] [address] Pv duplex arterial lower extremity (07/08/2018 7:17 PM LOGGING CREW SUPERVISOR) Specimen Narrative Performed At [facility] Examination:US DUPLEX ARTERIAL LOWER EXTREMITY RIGHT Clinical [...] participate in the care of your patient. [id number] Procedure Note Hm Interface, Radiology Results Incoming - 07/08/2018 7:56 PM LOGGING CREW SUPERVISOR Examination: US DUPLEX ARTERIAL LOWER EXTREMITY RIGHT [...] participate in the care of your patient. [facility]-[id number] Performing Organization Address [facility] Phone Number [email or web address] [address] [place] [address] XR Foot 3+ Vw Right (07/08/2018 3:01 PM LOGGING CREW SUPERVISOR) Specimen Narrative Performed At EXAMINATION:XR FOOT 3VW RIGHT RADIANT CLINICAL HISTORY:right foot wound---right great toe r o osteomyelitis COMPARISON:None. IMPRESSION: There are fractures of the proximal phalanx of the first and second toes. The first toe fracture extends into the interphalangeal joint. No extension or malalignment at the metatarsal-phalangeal joint is noted. [id number] Procedure Note Hm Interface, Radiology Results Incoming - 07/08/2018 3:15 PM LOGGING CREW SUPERVISOR EXAMINATION: XR FOOT 3 VW RIGHT CLINICAL HISTORY: right foot wound---right great toe r o osteomyelitis COMPARISON: None. IMPRESSION: There are fractures of the proximal phalanx of the first and second toes. The first toe fracture extends into the interphalangeal joint. No extension or malalignment at the metatarsal-phalangeal joint is noted. [id number] Performing Organization Address [facility] Phone Number [email or web address] [address] [place] [address] Blood culture, aerobic & anaerobic (07/08/2018 2:54 PM LOGGING CREW SUPERVISOR)Only the most recent of2 resultswithin the time period is included. Blood culture No growth after 5 days of incubation. SARAH BETH SMITHIST isolate Comment: HOSPITAL Specimen Information Specimen Source: Blood Specimen Site: Hand, left Specimen Blood - Hand, left Performing Organization Address [facility] Phone Number [facility] DEPARTMENT OF PATHOLOGY AND [address] [place] [address] GENOMIC MEDICINE [facility] [address] [place] [address] Aerobic culture (07/08/2018 2:40 PM LOGGING CREW SUPERVISOR) Aerobic culture Escherichia coli [facility] isolate [facility] , susceptibility to follow (A) Comment: Specimen Information Specimen Source: Wound Specimen Site: Toe Aerobic culture Staphylococcus, coagulase negative [facility] isolate [facility] , susceptibility to follow (A) Specimen [...] mcg/mL: Resistant negative zole Performing Organization Address [facility] Phone Number [facility] DEPARTMENT OF PATHOLOGY AND [address] [place] [id number] [place] [id number] Gram stain (07/08/2018 2:40 PM LOGGING CREW SUPERVISOR) Gram stain isolate No WBC's [facility] Many Gram positive cocci in [facility] HOSPITAL Many Gram negative rods Comment: Specimen Information Specimen Source: Wound Specimen Site: Toe Specimen Wound - Toe Performing Organization Address [facility] Phone Number [facility] DEPARTMENT OF PATHOLOGY AND [address] [place] [phone] Anaerobic culture (07/08/2018 2:40 PM LOGGING CREW SUPERVISOR) Anaerobic culture Prevotella bivia (A) [facility] isolate Comment: HOSPITAL Specimen Information Specimen Source: Wound Specimen Site: Toe Specimen Wound - Toe Performing Organization Address [facility] Phone Number [facility] DEPARTMENT OF PATHOLOGY AND [address] [place] [address] after 05/08/2018 Insurance Payer Benefit Plan / Subscriber ID Effective Dates Phone Address Type Group WORKERS COMP ESIS xxxxxxxxxxxxxx 2018-Pres Workers Comp ent Guarantor Name Account Type Relation to Date of Phone Billing Patient Address [id number] Workers Comp Employer 08/25/1901 [address] [facility], ([place] [employer] [facility] [id number] Advance Directives For more information, please contact: [phone] Type Date Recorded 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
[2019-05-09] MEDS ORDERED: TETRACAINE HCL 0.5% 4ML OPTH ONE (15:27)
[2019-05-09] MEDS ORDERED: FLUORESCEIN SODIUM 1 MG/WRAP ONE (15:27)
--- NOTE | 2019-05-09 16:15 | ER ---
Nurse's Notes [facility] Name: Brett Kramer Age: 38 yrs Sex: Male : 1980 Arrival Date: 05/09/2019 Time: 14:02 Bed 20 Private MD: Diagnosis: Conjunctivitis-right eye Presentation: 05/09 14:05 Presenting complaint: Patient states: right eye redness/swelling since Friday. sv Transition of care: patient was not received from another setting of care. Onset of symptoms was May 17, 2019. Risk Assessment: Do you want to hurt yourself or someone else? Patient reports no desire to harm self or others. Care prior to arrival: None. 14:05 Method Of Arrival: Ambulatory sv 14:05 Acuity: CLAIRE 3 sv 15:15 Initial Sepsis Screen: Does the patient meet any 2 criteria? No. Patient's initial hb sepsis screen is negative. Does the patient have a suspected source of infection? No. Patient's initial sepsis screen is negative. Triage Assessment: 14:05 General: Appears in no apparent distress. uncomfortable, Behavior is calm, cooperative, sv appropriate for age. Pain: Complains of pain in right eye. EENT: Sclera/Cornea are reddened in right eye Lid(s) swelling noted. Neuro: Level of Consciousness is awake, alert, obeys commands, Gait is steady. Respiratory: Respiratory effort is even, unlabored, Respiratory pattern is regular, symmetrical. Historical: - Allergies: 14:06 Cipro; sv 14:06 propoxyphene napsylate; sv - PMHx: 14:06 Diabetes - NIDDM; Hypertension; PE; sv - Immunization history:: Adult Immunizations up to date. - Social history:: Smoking status: Patient/guardian denies using tobacco. Screenin:15 Abuse screen: Denies threats or abuse. Nutritional screening: No deficits noted. em Tuberculosis screening: No symptoms or risk factors identified. Fall Risk None identified. Assessment: 15:10 General: Appears uncomfortable, Behavior is calm, cooperative, Denies fever. Pain: em Complains of pain in right eye Pain currently is 10 out of 10 on a pain scale. Pain began 2-3 days ago. Neuro: Level of Consciousness is awake, alert, obeys commands, Oriented to person, place, time, situation, Appropriate for age. Cardiovascular: Capillary refill < 3 seconds Patient's skin is warm and dry. Respiratory: Airway is patent Respiratory effort is even, unlabored, Respiratory pattern is regular, symmetrical. EENT: Eyes are tearing on right eye swollen right eye. Sclera/Cornea are reddened in right eye. Derm: Skin is intact, is healthy with good turgor, Skin is pink, warm \T\ dry. Musculoskeletal: Capillary refill < 3 seconds, Range of motion: intact in all extremities. Vital Signs: 14:06 BP 184 / 102; Pulse 100; Resp 18; Temp 98; Pulse Ox 98% ; Weight 122.47 kg; Height 5 sv ft. 8 in. (172.72 cm); 16:20 BP 164 / 89; Pulse 88; Resp 18; Pulse Ox 99% on R/A; Pain 10/10; em 14:06 Body Mass Index 41.05 (122.47 kg, 172.72 cm) sv Visual Acuity: 15:45 Left Eye Visual acuity 20/25, ; Right Eye Visual acuity 20/30, ; Both Eyes Visual em acuity 20/30; Without Lenses; ED Course: 14:02 Patient arrived in ED. rg4 14:06 Triage completed. sv 14:07 Arm band placed on. sv 14:53 Julio Cesar Fu LVN is Primary Nurse. em 15:14 Jens Hodges PA is PHCP. cp 15:14 Albert Medina MD is Attending Physician. cp 15:15 Patient has correct armband on for positive identification. Bed in low position. Call em light in reach. 16:13 Amy Cosby MD is Referral Physician. cp 16:31 No provider procedures requiring assistance completed. Patient did not have IV access em during this emergency room visit. Administered Medications: 15:25 Drug: Tetracaine Drops 0.5 % 1 drops Route: Ophthalmic; Site: right eye; em 15:58 Follow up: Response: No adverse reaction; Pain is unchanged, physician notified em 16:25 Drug: Hydrocodone-Acetaminophen (7.5 mg-325 mg) 1 tabs Route: PO; em 16:33 Follow up: Response: No adverse reaction; RASS: Alert and Calm (0) em 16:25 Drug: Gentamicin Drops 0.3 % 2 drops Route: Ophthalmic; Site: right eye; em 16:33 Follow up: Response: No adverse reaction em Outcome: 16:14 Discharge ordered by . elis 16:31 Discharged to home ambulatory. em 16:31 Condition: good 16:31 Discharge instructions given to patient, Instructed on discharge instructions, follow up and referral plans. medication usage, Demonstrated understanding of instructions, follow-up care, medications, Prescriptions given X 1. 16:34 Patient left the ED. em Signatures: Jessica Hinson, RN RN Julio Cesar Fu, STUDIO COUCH FRAME BUILDER STUDIO COUCH FRAME BUILDER em Jens Hodges PA PA cp Baxter, Heather, RN RN Bekah Fall rg4
--- NOTE | 2019-05-09 16:15 | EDPHYS ---
Physician Documentation [facility] Name: Brett Kramer Age: 38 yrs Sex: Male : 1980 Arrival Date: 05/09/2019 Time: 14:02 Bed 20 Private MD: ED Physician Albert Medina HPI: 05/09 15:25 This 38 yrs old Male presents to ER via Ambulatory with complaints of Eye cp Problem. 15:25 The patient is experiencing pain, redness, swelling, to the right eye, caused by an cp unknown mechanism. Onset: The symptoms/episode began/occurred 2 day(s) ago. 15:25 Duration: the symptoms are continuous. Associated signs and symptoms: Pertinent cp negatives: chills, ear ache, fever, headache. Patient denies use of contact lenses recently. Historical: - Allergies: 14:06 Cipro; sv 14:06 propoxyphene napsylate; sv - PMHx: 14:06 Diabetes - NIDDM; Hypertension; PE; sv - Immunization history:: Adult Immunizations up to date. - Social history:: Smoking status: Patient/guardian denies using tobacco. ROS: 15:30 Constitutional: Negative for body aches, chills, fever, poor PO intake. cp 15:30 Eyes: Positive for matting, pain, redness, swelling, of the right eye, Negative for cp discharge, foreign body sensation. 15:30 ENT: Negative for drainage from ear(s), ear pain, sore throat, difficulty swallowing, difficulty handling secretions. 15:30 Respiratory: Negative for cough, wheezing. 15:30 Abdomen/GI: Negative for abdominal pain, nausea, vomiting, and diarrhea. 15:30 Skin: Negative for cellulitis, rash. 15:30 Neuro: Negative for altered mental status, headache, weakness. 15:30 All other systems are negative. Exam: 15:35 Constitutional: The patient appears in no acute distress, alert, awake, non-toxic, well cp developed, well nourished. 15:35 Head/Face: Normocephalic, atraumatic. cp 15:35 Eyes: Periorbital structures: appear normal, Pupils: equal, round, and reactive to light and accomodation, Extraocular movements: intact throughout, Conjunctiva: chemosis, that is moderate, in right eye, injected, in the right eye, Corneas: abrasion, is not appreciated, foreign body, is not appreciated, a fluorescein strip employed to appreciate the findings, Lids and lashes: appear normal, bilaterally, Examination of the other eye reveals no obvious gross abnormality. 15:35 ENT: External ear(s): are unremarkable, Ear canal(s): are normal, clear, TM's: dullness, bilaterally, Nose: is normal, Mouth: is normal, Posterior pharynx: is normal, airway is patent, no erythema, no exudate. 15:35 Neck: ROM/movement: is normal, is supple, without pain, no range of motions limitations, no nuchal rigidity. 15:35 Chest/axilla: Inspection: normal, Palpation: is normal, no crepitus, no tenderness. 15:35 Cardiovascular: Rate: tachycardic, Rhythm: regular. 15:35 Respiratory: the patient does not display signs of respiratory distress, Respirations: normal, no use of accessory muscles, no retractions, no splinting, no tachypnea, labored breathing, is not present, Breath sounds: are clear throughout. 15:35 Skin: cellulitis, is not appreciated, no rash present. 15:50 Visual Acuity: I have reviewed the nursing documentation. cp Vital Signs: 14:06 BP 184 / 102; Pulse 100; Resp 18; Temp 98; Pulse Ox 98% ; Weight 122.47 kg; Height 5 sv ft. 8 in. (172.72 cm); 16:20 BP 164 / 89; Pulse 88; Resp 18; Pulse Ox 99% on R/A; Pain 10/10; em 14:06 Body Mass Index 41.05 (122.47 kg, 172.72 cm) sv Visual Acuity: 15:45 Left Eye Visual acuity 20/25, ; Right Eye Visual acuity 20/30, ; Both Eyes Visual em acuity 20/30; Without Lenses; MDM: 15:14 Patient medically screened. cp 15:30 Differential diagnosis: Foreign body in right eye. Acute iritis of right eye. Chemical cp conjunctivitis in right eye. Allergic conjunctivitis in right eye. Infectious conjunctivitis in right eye. 16:13 Data reviewed: vital signs, nurses notes, and as a result, I will discharge patient. cp 16:13 Counseling: I had a detailed discussion with the patient and/or guardian regarding: the cp historical points, exam findings, and any diagnostic results supporting the discharge/admit diagnosis, the need for outpatient follow up, an opthalmologist, to return to the emergency department if symptoms worsen or persist or if there are any questions or concerns that arise at home. Response to treatment: the patient's symptoms have mildly improved after treatment, and as a result, I will discharge patient. 05/09 15:18 Order name: Visual Acuity; Complete Time: 15:24 cp 05/09 15:18 Order name: Eye Tray; Complete Time: 15:24 cp 05/09 15:18 Order name: Fluoresene Opth strip; Complete Time: 15:24 cp Administered Medications: 15:25 Drug: Tetracaine Drops 0.5 % 1 drops Route: Ophthalmic; Site: right eye; em 15:58 Follow up: Response: No adverse reaction; Pain is unchanged, physician notified em 16:25 Drug: Hydrocodone-Acetaminophen (7.5 mg-325 mg) 1 tabs Route: PO; em 16:33 Follow up: Response: No adverse reaction; RASS: Alert and Calm (0) em 16:25 Drug: Gentamicin Drops 0.3 % 2 drops Route: Ophthalmic; Site: right eye; em 16:33 Follow up: Response: No adverse reaction em Disposition: 16:45 Chart complete. cp Disposition: 05/09/19 16:14 Discharged to Home. Impression: Conjunctivitis - right eye. - Condition is Stable. - Discharge Instructions: Bacterial Conjunctivitis. - Prescriptions for Gentamicin 0.3 % Ophthalmic Drops - instill 1 drop by OPHTHALMIC route every 4 hours for 7 days; 1 bottle. - Medication Reconciliation Form, Thank You Letter, Antibiotic Education, Prescription Opioid Use form. - Follow up: Amy Cosby MD; When: 1 - 2 days; Reason: Recheck today's complaints. - Problem is new. - Symptoms have improved. Addendum: 05/12/2019 06:41 Co-signature as Attending Physician, Albert Medina MD I agree with the assessment and k plan of care. Signatures: Jessica Hinson RN RN sv Rittger, Kevin, MD MD kdr Julio Cesar Fu, INSTRUCTOR SUBSTITUTE COSMETOLOGY INSTRUCTOR SUBSTITUTE COSMETOLOGY em Jens Hodges PA PA cp Mirlande Horn RN RN Corrections: (The following items were deleted from the chart) 05/09 16:34 16:14 05/09/2019 16:14 Discharged to Home. Impression: Conjunctivitis - right eye. em Condition is Stable. Forms are Medication Reconciliation Form, Thank You Letter, Antibiotic Education, Prescription Opioid Use. Follow up: Amy Cosby; When: 1 - 2 days; Reason: Recheck today's complaints. Problem is new. Symptoms have improved. cp
[2019-05-09] MEDS ORDERED: GENTAMICIN 0.3% OPTH DROP 5ML ONE (16:26)
[2019-05-09] MEDS ORDERED: HYDROCODONE/APAP 7.5/325 MG TAB ONE (16:26)
[2019-05-09 17:19] VITALS: BP 164/89; O2SAT 99
[2019-05-09 17:23] VITALS: TEMP 98.5
== END 2019-05-09 16:34 | disposition home or self-care (01) ==
LOC: ER 14:00
DX: H10.9 Unspecified conjunctivitis (principal); Z88.1 Allergy status to other antibiotic agents
CPT/HCPCS: 99283

== ENCOUNTER 2019-07-20 15:45 | Emergency (ER) | payer OTHER, SELFPAY ==
--- OUTSIDE RECORDS SUMMARY | 2019-07-20 15:47 | XMS REPORT ---
:1980 [facility] Address [address] [place] [address] [place] [address] Care Team Providers Name Role Phone Unavailable Unavailable Unavailable Problems This patient has no known problems. Allergies, Adverse Reactions, Alerts This patient has no known allergies or adverse reactions. Medications This patient has no known medications.
--- NOTE | 2019-07-20 16:24 | EDPHYS ---
Physician Documentation [facility] Name: Brett Kramer Age: 38 yrs Sex: Male : 1980 Arrival Date: 07/20/2019 Time: 15:49 Bed 28 Private MD: Omari Thao E ED Physician Jasiel Saenz HPI: 07/20 16:09 This 38 yrs old Male presents to ER via Ambulatory with complaints of Abscess, ps1 Foot infection. 16:09 patient is a diabetic with poor control. A1C recent was 13. Was on prednisone for right ps1 eye orbital cellulitis. Has pain and swelling c.w paronychia left medial aspect of left ring finger. Additionally has left heel pain and swelling. No injury but has had cracked skin and has had infection previously 2/2 diabetes and cracked feet from dryness. Attempted moisturizer without remission. . Historical: - Allergies: 16:10 Cipro; iw 16:10 propoxyphene napsylate; iw - Home Meds: 16:10 Adderall XR 20 mg Oral cp24 1 cap twice a day [Active]; gabapentin 300 mg Oral cap 1 iw cap 3 times per day [Active]; metformin 1,000 mg oral TG24 2 times per day [Active]; Cleveland 10-325 mg Oral tab 1 tab every 4 hours [Active]; methocarbamol 500 mg Oral tab 2 tabs 4 times per day [Active]; 17:00 Ativan Oral [Active]; Glucophage Oral [Active]; metoprolol tartrate 50 mg Oral tab 1 mg2 tab 2 times per day [Active]; - PMHx: 16:10 Diabetes - NIDDM; Hypertension; PE; iw - Immunization history:: Flu vaccine status is unknown. - Social history:: Smoking status: unknown. - Ebola Screening: : No symptoms or risks identified at this time. ROS: 16:09 Constitutional: Negative for fever, chills, and weight loss, Eyes: Negative for injury, ps1 pain, redness, and discharge, Cardiovascular: Negative for chest pain, palpitations, and edema, Respiratory: Negative for shortness of breath, cough, wheezing, and pleuritic chest pain, Abdomen/GI: Negative for abdominal pain, nausea, vomiting, diarrhea, and constipation, MS/Extremity: Negative for injury and deformity. 16:09 Skin: Positive for cellulitis, erythema, of the dorsal aspect of distal phalanx of left ring finger and left ring fingernail, heel of left foot, tenderness. Exam: 16:09 Constitutional: This is a well developed, well nourished patient who is awake, alert, ps1 and in no acute distress. Head/Face: Normocephalic, atraumatic. Eyes: Pupils equal round and reactive to light, extra-ocular motions intact. Lids and lashes normal. Conjunctiva and sclera are non-icteric and not injected. Chest/axilla: Normal chest wall appearance and motion. Nontender with no deformity. No lesions are appreciated. Respiratory: Lungs have equal breath sounds bilaterally, clear to auscultation and percussion. No rales, rhonchi or wheezes noted. No increased work of breathing, no retractions or nasal flaring. Abdomen/GI: Soft, non-tender, with normal bowel sounds. No distension or tympany. No guarding or rebound. No evidence of tenderness throughout. 16:09 Cardiovascular: Rate: tachycardic, Rhythm: regular, Pulses: no pulse deficits are appreciated. 16:09 Skin: paronychia medial aspect of left ring finger. Heel of left foot has tenderness. . Vital Signs: 16:11 Pulse 105; Resp 16; Temp 98.5; Pulse Ox 99% on R/A; iw MDM: 16:20 Data reviewed: vital signs, nurses notes, and as a result, I will discharge patient. ps1 Counseling: I had a detailed discussion with the patient and/or guardian regarding: the historical points, exam findings, and any diagnostic results supporting the discharge/admit diagnosis, the need for outpatient follow up, to return to the emergency department if symptoms worsen or persist or if there are any questions or concerns that arise at home. ED course: Will increase glipizide dose to improve glucose control. Home with keflex and bactrim. Follow up with pcp. . 16:23 Patient medically screened. ps1 16:31 ED course: Pt additionally needs to check his BS regularly for next week while ps1 adjusting to new medication dose. . Administered Medications: 17:03 Drug: Cleveland 10 mg-325 mg 1 tabs Route: PO; mg2 17:03 Follow up: Response: No adverse reaction; Medication administered at discharge. mg2 Disposition: 07/20/19 16:23 Discharged to Home. Impression: Paronychia of left ring finger, Wound of left heel. - Condition is Stable. - Discharge Instructions: Diabetes and Foot Care, Paronychia. - Prescriptions for Keflex 500 mg Oral Capsule - take 1 capsule by ORAL route every 6 hours for 10 days; 40 capsule. Glipizide 10 mg Oral Tablet - take 1 tablet by ORAL route every 12 hours before a meal; 60 tablet. Bactrim DS 800- 160 mg Oral Tablet - take 1 tablet by ORAL route every 12 hours for 10 days; 20 tablet. - Medication Reconciliation Form, Thank You Letter, Antibiotic Education, Prescription Opioid Use form. - Follow up: Omari Thao MD; When: 48 Hours; Reason: Further diagnostic work-up, Recheck today's complaints, Continuance of care, Re-evaluation by your physician. Follow up: Emergency Department; When: As needed; Reason: Fever > 102 F, Worsening of condition. - Problem is new. - Symptoms are unchanged. Signatures: Jojo Hale RN RN iw Jasiel Saenz MD MD ps1 Randy Lewis RN RN mg2 Corrections: (The following items were deleted from the chart) 17:05 16:23 07/20/2019 16:23 Discharged to Home. Impression: Paronychia of left ring finger; mg2 Wound of left heel. Condition is Stable. Forms are Medication Reconciliation Form, Thank You Letter, Antibiotic Education, Prescription Opioid Use. Follow up: Omari Thao; When: 48 Hours; Reason: Further diagnostic work-up, Recheck today's complaints, Continuance of care, Re-evaluation by your physician. Follow up: Emergency Department; When: As needed; Reason: Fever > 102 F, Worsening of condition. Problem is new. Symptoms are unchanged. ps1
--- NOTE | 2019-07-20 16:24 | ER ---
Nurse's Notes [facility] Name: Brett Kramer Age: 38 yrs Sex: Male : 1980 Arrival Date: 07/20/2019 Time: 15:49 Bed 28 Private MD: Omari Thao E Diagnosis: Paronychia of left ring finger;Wound of left heel Presentation: 07/20 16:07 Presenting complaint: Patient states: crack in left heel for 6 days, is not healing iw like it normally does, is diabetic, also has blister on left fourth digit. Transition of care: patient was not received from another setting of care. Onset of symptoms was July 14, 2019. Risk Assessment: Do you want to hurt yourself or someone else? Patient reports no desire to harm self or others. Initial Sepsis Screen: Does the patient meet any 2 criteria? No. Patient's initial sepsis screen is negative. Does the patient have a suspected source of infection? No. Patient's initial sepsis screen is negative. Care prior to arrival: None. 16:07 Method Of Arrival: Ambulatory iw 16:07 Acuity: CLAIRE 4 iw Triage Assessment: 16:45 General: Appears in no apparent distress. comfortable, Behavior is calm, cooperative. mg2 Historical: - Allergies: 16:10 Cipro; iw 16:10 propoxyphene napsylate; iw - Home Meds: 16:10 Adderall XR 20 mg Oral cp24 1 cap twice a day [Active]; gabapentin 300 mg Oral cap 1 iw cap 3 times per day [Active]; metformin 1,000 mg oral TG24 2 times per day [Active]; Riddleton 10-325 mg Oral tab 1 tab every 4 hours [Active]; methocarbamol 500 mg Oral tab 2 tabs 4 times per day [Active]; 17:00 Ativan Oral [Active]; Glucophage Oral [Active]; metoprolol tartrate 50 mg Oral tab 1 mg2 tab 2 times per day [Active]; - PMHx: 16:10 Diabetes - NIDDM; Hypertension; PE; iw - Immunization history:: Flu vaccine status is unknown. - Social history:: Smoking status: unknown. - Ebola Screening: : No symptoms or risks identified at this time. Screenin:00 Abuse screen: Denies threats or abuse. Denies injuries from another. Nutritional mg2 screening: No deficits noted. Tuberculosis screening: No symptoms or risk factors identified. 17:00 Fall Risk None identified. mg2 Assessment: 16:45 General: Appears in no apparent distress. comfortable, Behavior is calm, cooperative. mg2 Pain: Complains of pain in left foot. Neuro: Level of Consciousness is awake, alert, obeys commands, Oriented to person, place, time, situation. Cardiovascular: Capillary refill < 3 seconds Patient's skin is warm and dry. Respiratory: Airway is patent Respiratory effort is even, unlabored, Respiratory pattern is regular, symmetrical. GI: No signs and/or symptoms were reported involving the gastrointestinal system. : No signs and/or symptoms were reported regarding the genitourinary system. EENT: No signs and/or symptoms were reported regarding the EENT system. Derm: Skin Skin is pink, warm \T\ dry. normal. Musculoskeletal: Circulation, motion, and sensation intact. Capillary refill < 3 seconds. Vital Signs: 16:11 Pulse 105; Resp 16; Temp 98.5; Pulse Ox 99% on R/A; iw ED Course: 15:49 Patient arrived in ED. mr 15:50 Omari Thao MD is Private Physician. mr 15:53 Jasiel Saenz MD is Attending Physician. ps1 16:08 Triage completed. iw 16:09 Randy Lewis RN is Primary Nurse. mg2 16:12 Arm band placed on. iw 16:22 Omari Thao MD is Referral Physician. ps1 17:00 Patient has correct armband on for positive identification. mg2 17:00 No provider procedures requiring assistance completed. Patient did not have IV access mg2 during this emergency room visit. Administered Medications: 17:03 Drug: Riddleton 10 mg-325 mg 1 tabs Route: PO; mg2 17:03 Follow up: Response: No adverse reaction; Medication administered at discharge. mg2 Outcome: 16:23 Discharge ordered by . ps1 17:00 Discharged to home ambulatory. mg2 17:00 Condition: stable 17:00 Discharge instructions given to patient, Instructed on discharge instructions, follow mg2 up and referral plans. medication usage, Demonstrated understanding of instructions, follow-up care, medications, Prescriptions given X 3. 17:05 Patient left the ED. mg2 Signatures: Jennie Gerber mr Jojo Hale RN RN iw Jasiel Saenz MD MD ps1 Gardose, Randy, RN RN mg2 Corrections: (The following items were deleted from the chart) 22: 17:04 General: Appears in no apparent distress. comfortable, Behavior is calm, mg2 cooperative, mg2 : 17:04 Pain: Complains of pain in left foot mg2 mg2 : 17:04 Neuro: Level of Consciousness is awake, alert, obeys commands, Oriented to mg2 person, place, time, situation, mg2 : 17:04 Cardiovascular: Capillary refill < 3 seconds Patient's skin is warm and dry. mg2 mg2 : 17:04 Respiratory: Airway is patent Respiratory effort is even, unlabored, Respiratory mg2 pattern is regular, symmetrical, mg2 : 17:04 GI: No signs and/or symptoms were reported involving the gastrointestinal system. mg2 mg2 : 17:04 : No signs and/or symptoms were reported regarding the genitourinary system. mg2mg2 : 17:04 EENT: No signs and/or symptoms were reported regarding the EENT system. mg2 mg2 : 17:04 Derm: Skin Skin is pink, warm \T\ dry. normal, mg2 mg2 : 17:04 Musculoskeletal: Circulation, motion, and sensation intact. Capillary refill < 3 mg2 seconds, mg2
[2019-07-20] MEDS ORDERED: HYDROCODONE/APAP 10/325 TAB ONE (16:57)
[2019-07-20 17:48] VITALS: TEMP 98.5; O2SAT 99
== END 2019-07-20 17:05 | disposition home or self-care (01) ==
LOC: ER 15:45
DX: L03.012 Cellulitis of left finger (principal); S91.302A Unspecified open wound, left foot, initial encounter; I10 Essential (primary) hypertension; E11.9 Type 2 diabetes mellitus without complications; Z88.6 Allergy status to analgesic agent; Z88.8 Allergy status to other drugs, medicaments and biological substances
CPT/HCPCS: 99283

== ENCOUNTER 2020-01-12 15:58 | Inpatient (IN) | payer SELFPAY ==
--- NOTE | 2020-01-12 16:43 | RAD REPORT ---
EXAM DESCRIPTION: Bettie Single View01/12/2020 4:35 pm CLINICAL HISTORY: Chest pain COMPARISON: 2018 FINDINGS: The lungs appear clear of acute infiltrate. The heart is normal size IMPRESSION: No acute abnormalities displayed
--- OUTSIDE RECORDS SUMMARY | 2020-01-12 16:51 | XMS REPORT | Clinical Summary ---
:1980 Author Organization [facility] Address [address] [place] [address] Care Team Providers Name Role Phone Asked, No Pcp Primary Care Provider Unavailable Allergies Active Allergy Reactions Severity Noted Date Comments Propoxyphene N-Acetaminophen Itching 07/08/2018 Medications Medication Sig Dispensed Refills Start Date End Date Status metoprolol succinate Take 50 mg by mouth 0 Active XL (TOPROL-XL) 50 mg 2 (two) times a 24 hr tablet day. dextroamphetamine-amp Take 20 mg by mouth 0 Active hetamine (ADDERALL) 2 (two) times a 20 mg tablet day. gabapentin Take 300 mg by 0 Acti ve (NEURONTIN) 300 mg mouth 3 (three) capsule times a day. ibuprofen Take 600 mg by 0 Activ e (ADVIL,MOTRIN) 600 MG mouth every 8 tablet (eight) hours as needed for mild pain. naproxen sodium Take 220 mg by 0 Active (ALEVE) 220 MG tablet mouth every 8 (eight) hours as needed for mild pain. metFORMIN Take 500 mg by 0 Activ e (GLUCOPHAGE) 500 mg mouth 2 (two) times tablet a day with meals. collagenase (SANTYL) Apply to wound 30 g 3 07/21/2018 Active ointment daily with wet to dry dressing SANTYL ointment APPLY TOPICALLY 90 g 1 07/27/2018 Active DAILY. Active Problems Problem Noted Date Open wound of right great toe 07/08/2018 Social History Tobacco Use Types Packs/Day Years Used Date Current Some Day Smoker Smokeless Tobacco: Never Used Alcohol Use Drinks/Week oz/Week Comments Yes ocassional Sex Assigned at Date Recorded Not on file Job Start Date Occupation Industry Not on file Not on file Not on file Travel History Travel Start Travel End No recent travel history available. 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
--- OUTSIDE RECORDS SUMMARY | 2020-01-12 16:51 | XMS REPORT ---
:1980 Author Organization [facility] t Address [address] [place] [address] [place] [address] Care Team Providers Name Role Phone Asked, No Pcp Primary Care Physician Unavailable João Hale DO Attending Clinician Harleen RN, C Attending Clinician Esvin FARIAS, S Attending Clinician Problems Condition Condition Condition Status Onset Resolution Last Treating Co mments Source Name Details Category Date Date Treatment Clinician Date Open wound Open wound Disease Active 2017-08 [place] right of right 09-07 Method i great toe great toe 00:00: st 00 Allergies, Adverse Reactions, Alerts Allergy Allergy Status Severity Reaction(s) Onset Inactive Treating Comm ents Source Name Type Date Date Clinician Propoxyp Propensi Active Itching 2017-08 [place] to 09-07 Methodi N-Acetam adverse 00:00: st inophen reaction 00 s to drug Social History Social Habit Start Date Stop Date Quantity Comments Source Sex Assigned At [facility] ethodi Alcohol intake 2018-07-21 2018-07-21 Current drinker of Deepak newmanlaura Aston 00:00:00 00:00:00 alcohol (finding) Alcohol Comment 2018-07-08 2018-07-08 ocassional [facility] ethodi 00:00:00 00:00:00 Smoking Status Start Date Stop Date Source Current some day smoker 2018-07-21 00:00:00 Mustapha Clancy Medications Ordered Filled Start Stop Current Ordering Indication Dosage Frequency Signature Comments Components Source Medication Medication Date Date Medication? Clinician (SIG) Name Name KEKE 2017-08 Yes APPLY [place] ointment 2-03 TOPICALLY Method i 00:00: DAILY. st 00 metoprolol 2017-08 Yes 50mg Q.5D Take 50 mg [place] succinate 09-20 by mouth 2 Meth rosi XL 08:56: (two) st (TOPROL-XL) 11 times a 50 mg 24 hr day. tablet dextroamphe 2017-08 Yes 20mg Q.5D Take 20 mg [place] tamine-amph 09-20 by mouth 2 Me thodi etamine 08:56: (two) st (ADDERALL) 11 times a 20 mg day. tablet gabapentin 2017-08 Yes 300mg [id number] Take 300 [place] (NEURONTIN) 09-20 [id number] mg by M ethodi 300 mg 08:56: 3D mouth 3 st capsule 11 (three) times a day. ibuprofen 2017-08 Yes 600mg Q8H Take [address] (ADVIL,MOTR 1-27 mg by Methodi IN) 600 MG 08:56: mouth st tablet 11 every 8 (eight) hours as needed for mild pain. naproxen 2017-08 Yes 220mg Q8H Take 220 [place] sodium 1-27 mg by Methodi (ALEVE) 220 08:56: mouth st MG tablet 11 every 8 (eight) hours as needed for mild pain. metFORMIN 2017-08 Yes 500mg Q.5D Take 500 [address] (GLUCOPHAGE 1-27 mg by Methodi ) 500 mg 08:56: mouth 2 st tablet 11 (two) times a day with meals. collagenase 2017-08 Yes Apply to Deepak [place] (SANTYL) 1- wound Methodi ointment 00:00: daily with st 00 wet to dry dressing Procedures This patient has no known procedures. Plan of Care Planned Activity Planned Date Details Comments Source Future Scheduled 2020-03-25 INFLUENZA VACCINE Marga Clancy Test 00:00:00 [code = INFLUENZA VACCINE] Encounters Start End Encounter Admission Attending Care Care Encounter Source Date/Time Date/Time Type Type Clinicians Facility Department ID 2019-10-31 2019-10-31 Emergency Geoffrey DEMARCO [id number] 13:38:57 16:16:00 Vivian Hansen [id number] [place] [id number] [place] [id number] 2019-09-21 2019-09-21 Jose G FLOWERS [id number] 00:00:00 00:00:00 Management , Naya COHEN [id number] 2019-05-09 2019-05-09 [place] [id number] 17:45:02 22:25:00 Charley Hansen [id number] [place] [id number] [place] [id number] Results This patient has no known results.
--- OUTSIDE RECORDS SUMMARY | 2020-01-12 16:52 | XMS REPORT | Summary of Care ---
:1980 Author Organization [facility] - [facility] Address [address] [place] [id number] Care Team Providers Name Role Phone Omari Thao Primary Care Provider Reason for Visit Reason Comments Case Management Brett Kramer # [id number] P Closed/Casebook Request Incomplete Encounter Details Date Type Department Care Team Description 09/21/2019 Case Management [facility] Case Management Susannah Canseco Case Management and Utilization C, RN (WilliamsMadhavBrett Review [address] [place] [address]# [id number] [address] [place] [address] Closed/[place] [address] Request Incomplete) [place], [place] [phone] Allergies No Known Allergiesdocumented as of this encounter (statuses as of 09/21/2019) Medications Medication Sig Dispensed Refills Start Date End Date Status HYDROcodone-acetamino Take 1 tablet by 90 tablet 0 06/12/2018 Active phen (NORCO) 10-325 mouth every 6 mg tablet (six) hours as needed for Pain (scale 4-6) or Pain (scale 7-10). aspirin 325 mg tablet Take 1 tablet by 30 tablet 0 06/12/2018 Active mouth 2 (two) times daily. gabapentin 300 mg Take 1 capsule by 30 capsule 1 06/13/2018 Active capsule mouth 2 (two) times daily. Additional information Patient taking differently: 400 mg Oral TID, Reported on 05/09/2019 5:43 PM ibuprofen 600 mg tablet Take 1 tablet by mouth 30 tablet 1 Active every 8 (eight) hours as needed for Pain (scale 4-6). methocarbamol (ROBAXIN) 500 mg Take 500 mg by mouth 2 0 Active tablet (two) times daily. metFORMIN 1,000 mg tablet Take 1,000 mg by mouth 0 Active 2 (two) times daily with meals. metoprolol tartrate 50 mg Take 50 mg by mouth 2 0 Active tablet (two) times daily. predniSONE 20 mg Take 3 tablets by 21 tablet 0 05/15/2019 Active tabletIndications: Orbital mouth daily. cellulitis, right insulin aspart U-100 (NOVOLOG inject 10 Units under 3 mL 5 05/15/2019 Active FLEXPEN U-100 INSULIN) 100 the skin 3 (three) unit/mL (3 mL) times daily before injectionIndications: Type 2 meals. diabetes mellitus without complication, without long-term current use of insulin Insulin Glargine (LANTUS inject 27 Units under 15 mL 3 Active SOLOSTAR U-100 INSULIN) 100 the skin daily. unit/mL (3 mL) injectionIndications: Type 2 diabetes mellitus without complication, without long-term current use of insulin amoxicillin-pot clavulanate Take 1 tablet by mouth 21 tablet 0 05/15/2019 Active 500 mg 500-125 mg 3 (three) times daily. tabletIndications: Orbital cellulitis, right artificial tears,hypromellose, Place 1 Drop in both 15 mL 3 05/15/2019 Active 0.5 % ophthalmic eyes 4 (four) times dropsIndications: Orbital daily. cellulitis, right dorzolamide-timolol 22.3-6.8 Place 1 Drop in right 10 mL 3 05/15/2019 Active mg/mL ophthalmic eye 2 (two) times dropsIndications: Orbital daily. cellulitis, right doxycycline 100 mg Take 1 capsule by 14 capsule 0 05/15/2019 Active capsuleIndications: Orbital mouth every 12 cellulitis, right (twelve) hours. omeprazole 40 mg Take 1 capsule by 90 capsule 4 05/16/2019 Active capsuleIndications: Orbital mouth daily. cellulitis, right Insulin Glargine (LANTUS inject 27 Units under 15 mL 3 Active SOLOSTAR U-100 INSULIN) 100 the skin daily. unit/mL (3 mL) injectionIndications: Type 2 diabetes mellitus without complication, without long-term current use of insulin insulin aspart U-100 (NOVOLOG inject 10 Units under 3 mL 3 05/15/2019 Active FLEXPEN U-100 INSULIN) 100 the skin 3 (three) unit/mL (3 mL) times daily before injectionIndications: Type 2 meals. diabetes mellitus without complication, without long-term current use of insulin predniSONE 20 mg Take 3 tablets by 21 tablet 0 05/15/2019 Active tabletIndications: mouth daily. Dacryoadenitis of right lacrimal gland predniSONE 10 mg 3 tablets daily po for 50 tablet 3 05/18/2019 Active tabletIndications: Idiopathic one week, then 2 orbital inflammatory syndrome, tablets daily po until right return documented as of this encounter (statuses as of 09/21/2019) Active Problems Problem Noted Date Orbital cellulitis, right 05/10/2019 Overview: S/P Orbitotomy with Mass Excision OD Obesity (BMI 30-39.9) 05/10/2019 documented as of this encounter (statuses as of 09/21/2019) Immunizations Name Administration Dates Next Due Td 06/12/2018 documented as of this encounter Social History Tobacco Use Types Packs/Day Years Used Date Former Smoker Cigarettes 1 05/10/1996 - 1 09/07/2017 Smokeless Tobacco: Former User Alcohol Use Drinks/Week oz/Week Comments Yes social Sex Assigned at Date Recorded Not on file Job Start Date Occupation Industry Not on file Not on file Not on file Travel History Travel Start Travel End No recent travel history available. documented as of this encounter Last Filed Vital Signs Not on filedocumented in this encounter Progress Notes Laura Akers - 09/21/2019 1:01 PM CSTFrom: Laura Akers Sent: Saturday, September 21, 2019 1:00 PM To: Diaz Obrien <[email or web address]> Cc: Andrea Seymour <[email or web address]>; Tripp Meng <[email or web address]>; Rebeca Cintron <[email or web address]>; Ewa Aragon <[email or web address]>; Laura Akers <[email or web address]>; Care Management Case Book Coordinator <[email or web address]>; Roseanne Henry &l [email or web address]>; Jennifer Kevin <[email or web address]>; Tanja Fink <[email or web address]>; Karla Castañeda <[email or web address]>; Flora Nowak <[email or web address]> Subject: Brett Kramer # [id number] Closed/Casebook Request Incomplete Dr. Obrien, The Casebook submission for Brett Kramer # [id number] has been denied and/or closed for the following reason/s. ? The patient/family was non-compliant with financial screening process. According to [facility] [employer] Policy 9.8.2, patients requesting financial discounts must comply with the screening requirements. ? Casebook submitted on 05/13/19 open for 131 days. Please let me know if you have any questions or concerns. Respectfully, The Casebook Coordinator Thank you, Laura Akers Casebook Coordinator Department of Care Management P: [phone] F: [phone] M: [id number] E: [email or web address] Casebook E: [email or web address] documented in this encounter Plan of Treatment Health Maintenance Due Date Last Done Comments DTaP,Tdap,and Td Vaccines (1 - 1990 06/12/2018 Tdap) INFLUENZA VACCINE (#1) 2019 PNEUMOCOCCAL 0-64 YEARS COMBINED Aged Out No longer eligible based on SERIES patient's age to complete this topic documented as of this encounter Results Not on filedocumented in this encounter Additional Health Concerns Infection Noted Time Resolved Time MSSA Nasal Colonization 05/11/2019 7:13 AM CDT documented as of this encounter Insurance Payer Benefit Plan / Group Subscriber ID Effective Dates Phone Address Type [facility] GENERIC [facility] GENERIC [id number] 2018-Present [facility] documented as of this encounter
--- OUTSIDE RECORDS SUMMARY | 2020-01-12 16:53 | XMS REPORT | Summary of Care ---
:1980 Author Organization [facility] Address [address] [place] [id number] Care Team Providers Name Role Phone Omari Thao Whitney Primary Care Provider Reason for Referral MRI/CAT Scan (STAT) Status Reason Specialty Diagnoses / Referred By Referred To Procedures Contact Contact New Request Diagnostic Diagnoses Chest pain, unspecified type Vivian Hale Radiology Procedures CT CHEST PULMONARY ANGIOGRAM CT THORAX W CONTRAST J, DO [address] [place] [address] Reason for Visit Reason Comments Chest Pain Auth/Cert Status Reason Specialty Diagnoses / Referred By Referred To Procedures Contact Contact Emergency Medicine Adc Em ergency Dept [address] [facility] [place] [address] Fax: Encounter Details Date Type Department Care Team Description 10/31/2019 Emergency ADC-Emergency Vivian Hale, Chest p ain, Department DO unspecified type 132 [facility] [address] [place] [address] (Primary Dx) [id number] [place] [address] Allergies No Known Allergiesdocumented as of this encounter (statuses as of 10/31/2019) Medications Medication Sig Dispensed Refills Start Date [...] as of this encounter (statuses as of 10/31/2019) Active Problems Problem Noted Date Orbital cellulitis, right 05/10/2019 Overview: S/P Orbitotomy with Mass Excision OD Obesity (BMI 30-39.9) 05/10/2019 documented as of this encounter (statuses as of 10/31/2019) Immunizations Name Administration Dates Next Due Td [...] of this encounter Last Filed Vital Signs Vital Sign Reading Time Taken Comments Blood Pressure 155/100 10/31/2019 3:30 PM CDT Pulse 97 10/31/2019 3:30 PM CDT Temperature 37.6 C (99.7 F) 10/31/2019 1:40 PM CDT Respiratory Rate 23 10/31/2019 3:30 PM CDT Oxygen Saturation 97% 10/31/2019 3:30 PM CDT Inhaled Oxygen Concentration - - Weight 117.9 kg (260 lb) 10/31/2019 1:40 PM CDT Height 165.1 cm (5' 5") 10/31/2019 1:40 PM CDT Body Mass Index 43.27 10/31/2019 1:40 PM CDT documented in this encounter Discharge Instructions Vivian Varela DO - 10/31/2019DIAGNOSIS 1. Chest Pain 2. Hypertension 3. Hyperglycemia 4. Pulmonary hypertension NO LIFE-THREATENING FINDINGS ON TODAY'S EXAM. PROCEDURES IN THE ER TODAY: Blood work Urine test CT chest EKG MEDICATIONS ADMINISTERED IN THE ER TODAY: Metoprolol Insulin IV fluids Nitroglycerin Aspirin YOUR PRESCRIPTIONS AND GVUM-NIF-UCNYMXE MEDICATION RECOMMENDATIONS: Please take your blood pressure medication as prescribed. Please take aspirin 81mg by mouth daily. SPECIAL CARE INSTRUCTIONS: None FOLLOW-UP RECOMMENDATIONS: RECOMMEND FOLLOW-UP WITH A PRIMARY CARE PROVIDER OR SPECIALIST IN 2-5 DAYS, ESPECIALLY IF NO IMPROVEMENT IN SYMPTOMS. TO FOLLOW-UP WITHIN THE [facility], TRY THESE OPTIONS (CLINIC APPOINTMENTS AVAILABLE ON [id number] BASIS): 1. SCHEDULE AN APPOINTMENT ONLINE AT [email or web address] 2. OR CALL THE [facility] AT OR 3. OR CALL YOUR [facility] PHYSICIAN'S OFFICE DIRECTLY IF YOU ARE ALREADY AN ESTABLISHED [facility] PATIENT. OR, YOU MAY FOLLOW-UP WITH A PROVIDER OF YOUR CHOICE, SUCH : 1. A PHYSICIAN OF YOUR CHOICE 2. [facility], . LOCATIONS IN [facility] 3. [facility], [address] [place] [address]; [phone] RETURN TO ER FOR WORSENING OF SYMPTOMS. AttachmentsThe following attachments cannot be sent through Care Everywhere. Hypertension, Pulmonary (Monegasque)Chest Pain, Uncertain Cause (Monegasque)documented in this encounter Plan of Treatment Name Type Priority Associated Diagnoses Date/Ti sc CT CHEST PULMONARY IMAGING STAT Chest pain, unspecifie d 10/31/2019 2:45 PM ANGIOGRAM type CDT Health Maintenance Due Date Last Done Comments DTaP,Tdap,and Td Vaccines (1 - 1990 06/12/2018 Tdap) INFLUENZA VACCINE (#1) 2019 PNEUMOCOCCAL 0-64 YEARS COMBINED Aged Out No longer eligible based on SERIES patient's age to complete this topic documented as of this encounter Procedures Procedure Name Priority Date/Time Associated Diagnosis Comme nts POCT GLUCOSE Routine 10/31/2019 3:36 PM Results for this (AUTOMATED) CDT procedure are i n the results section. EKG-12 LEAD STAT 10/31/2019 3:[address] CHEST PULMONARY STAT 10/31/2019 2:45 PM Chest pain, ANGIOGRAM CDT unspecified type Procedure Note - [facility], Radia nt Results Inft User - 10/31/2019 3:44 PM CDT PROCEDURE: CT ANGIO CHEST WITH CONTRAST - PE PROTOCOL CLINICAL INDICATION: 39 year s-old Male presenting with pleuretic chest pain, h/o PE, tachy COMPARISON: No prior studies available for comparison. TECHNIQUE: Helical CT was p erformed and reconstructed at 1.25 mm slice thickness from lung bases to apices using 120 mL Omnipaque 350 intravenous contrast, without complicati on. 3D axial MIPS and coronal MPRS were generated under radiologist supervision, and reviewed to further define anatomy and possible patholo gy. (DFOV = 46.3 cm) DOSE: 276 mGycm FINDINGS: PULMONARY ARTERIES: Enhancement is 350 HU and is appropriate for evaluation. No acute pulmonary embolism is identified. Mild ly dilated main pulmonary artery trunk measuring 3.2 cm. CHEST: Lower neck/thyroid: Unremark able. Lungs: Normal. Central airway: The central airway is patent. Pleura: No pleural effusion, thickening or pneumothorax. Thoracic aorta and great ves sels: Normal in diameter. Heart and pericardium: Mild multivessel coronary arterial calcification. Mild cardiomegaly. No perica rdial effusion. Lymph nodes: Prominent bilat eral hilar lymph nodes measuring 0.9 cm on the right (5:66) and 1.2 cm and the left (5:75). Mediastinum: Unremarkable. Thoracic spine and chest wal l: Moderate multilevel degenerative changes of the thoracic spine are noted with normal thoracic vertebral body heights. Other Lines/Tubes/Devices/Gipson rdware: None Visualized upper abdomen: Un remarkable. ___ IMPRESSION 1. No acute pulmonary embol ism. 2. Dilated main pulmonary a rterial trunk measuring 3.2 cm, which is 95% specific for pulmonary arter ial hypertension. 3. Mild cardiomegaly. ___ Preliminary Report Dictated by Resident: Maurizio Morris CBC WITH DIFFERENTIAL STAT 10/31/2019 1:58 PM Chest pain, Results for this CDT unspecified type procedure a re in the results section. URINALYSIS STAT 10/31/2019 1:58 PM Chest pain, Results for this CDT unspecified type procedure a re in the results section. ACTIVATED PARTIAL STAT 10/31/2019 1:58 PM Chest pain, Res ults for this THRMPLAS CHRISTIANO CDT unspecified type procedure a re in the results section. PROTHROMBIN TIME / STAT 10/31/2019 1:58 PM Chest pain, Re sults for this INR CDT unspecified type procedure a re in the results section. CBC WITH DIFFERENTIAL Routine 10/31/2019 1:58 PM Chest pain, Results for this CDT unspecified type procedure a re in the results section. BASIC METABOLIC PANEL STAT 10/31/2019 1:58 PM Chest pain, Results for this (NA, K, CL, CO2, CDT unspecified type procedu re are in GLUCOSE, BUN, the results CREATININE, CA) section. HEPATIC FUNCTION STAT 10/31/2019 1:58 PM Chest pain, Resu lts for this PANEL (47818) CDT unspecified type procedure are in (ALB,T.PRO,BILI the results T,BU/BC,ALT,AST,ALK section. PHOS) TROPONIN I STAT 10/31/2019 1:58 PM Chest pain, Results for this CDT unspecified type procedure a re in the results section. EKG-12 LEAD STAT 10/31/2019 1:48 PM CDT NOTICE OF PRIVACY Routine 10/31/2019 1:35 PM PRACTICES CDT CONSENT/REFUSAL FOR Routine 10/31/2019 1:35 PM DIAGNOSIS AND CDT TREATMENT documented in this encounter Results POCT GLUCOSE (AUTOMATED) (10/31/2019 3:36 PM CDT) [facility] Sig nature POCT GLU 213 (H) 70 - 110 mg/dL [facility] Specimen Blood Performing Organization Address City/State/Zipcode Phone Number [facility] CLIA: [id number], [address] [place] [address] CBC WITH DIFFERENTIAL (10/31/2019 1:58 PM CDT) [facility] nature WBC 8.53 4.20 - 10.70 [facility] 10*3/L [facility] RBC 4.81 4.26 - 5.52 [facility] 10*6/L [facility] HGB 15.1 12.2 - 16.4 [facility] g/dL [facility] HCT 44.5 38.4 - 49.3 % [facility] MCV 92.5 81.7 - 95.6 fL [facility] MCH 31.4 26.1 - 32.7 pg [facility] MCHC 33.9 31.2 - 35.0 [facility] g/dL [facility] RDW-SD 45.9 38.5 - 51.6 fL [facility] RDW-CV 13.5 12.1 - 15.4 % [facility] PLT 282 150 - 328 [facility] 10*3/L [facility] MPV 9.6 (L) 9.8 - 13.0 fL [facility] NRBC/100 WBC 0.0 0.0 - 10.0 /100 [facility] WBCs [facility] NRBC x10^3 <0.01 10*3/L [facility] GRAN MAT (NEUT) % 55.6 % [facility] IMM GRAN % 1.20 % [facility] LYMPH % 31.2 % [facility] MONO % 10.4 % [facility] EOS % 1.2 % [facility] BASO % 0.4 % [facility] GRAN MAT x10^3(ANC) 4.75 1.99 - 6.95 [facility] 10*3/uL [facility] IMM GRAN x10^3 0.10 (H) 0.00 - 0.06 [facility] 10*3/uL [facility] LYMPH x10^3 2.66 1.09 - 3.23 [facility] 10*3/uL [facility] MONO x10^3 0.89 0.36 - 1.02 [facility] 10*3/uL [facility] EOS x10^3 0.10 0.06 - 0.53 [facility] 10*3/uL [facility] BASO x10^3 0.03 0.01 - 0.09 [facility] 10*3/uL [facility] Specimen Blood - ARM, RIGHT Performing Organization Address [facility] Phone Number [facility] CLIA: [id number], [address] [place] [address] aPTT (10/31/2019 1:58 PM CDT) Pathologist Sig nature APTT Patient 27 23 - 38 Seconds [facility] Specimen Blood - ARM, RIGHT Narrative Performed At The [facility] patient population mean normal value [facility] for aPTT is 30 seconds. Performing Organization Address [facility] Phone Number [facility] CLIA: [id number], [address] [place] [address] Prothrombin Time (PT) / INR (10/31/2019 1:58 PM CDT) PROTIME PATIENT 12.5 12.0 - 14.7 [facility] LABORATORY INR 1.0Comment: Normal [facility] INR <1.1; [facility] Therapeutic range LABORATORY 2.0 to 3.0 or 2.5 to 3.5, depending upon the indications. Specimen Blood - ARM, RIGHT Performing Organization Address [facility] Phone Number [facility] CLIA: [id number], [address] [place] [address] Troponin I (10/31/2019 1:58 PM CDT) Pathologist Sig nature TROPONIN I 0.014 <=0.034 ng/mL [facility] Specimen Blood - ARM, RIGHT Narrative Performed At Equal or Less than 0.034 ng/ml---Normal [facility] Note: Cardiac troponin begins to rise 3-4 hours after the onset of ischemia. Repeat in 4-6 hours if the sample was drawn within 3-4 hours of the onset of the symptom and found normal. Between 0.035 and 0.120 ng/mL--- Borderline. Questionable myocardial injury or necros is Note: Serial measurement may be necessary to confirm or exclude the diagnosis of myocardial injury or necrosis; Clinical correlation (symptoms, EKGs, imaging studies, and others) required; Repeat in 4-6 hours if clinically indicated. Equal or Higher than 0.121 ng/mL---Abnormal. Myocardial Injury or Necrosis Likely Biotin has been reported to cause a negative bias, interpret results relative to patient's use of biotin. Performing Organization Address [facility] Phone Number [facility] CLIA: [id number], [address] [place] [address] Hepatic Function Panel (ALB, T.PRO, BILI T, BU/BC, ALT, AST, ALK PHOS) (10/31/2019 1:58 PM CDT) [facility] [place] [place] TOTAL BILI 0.4 0.1 - 1.1 mg/dL [facility] BILI UNCON 0.2 0.1 - 1.1 mg/dL [facility] BILI CONJ 0.0 0.0 - 0.3 mg/dL [facility] T PROTEIN 6.7 6.3 - 8.2 g/dL [facility] ALBUMIN 4.2 3.5 - 5.0 g/dL [facility] ALK PHOS 88 34 - 122 U/L [facility] ALTv 33 5 - 50 U/L [facility] AST(SGOT) 24 13 - 40 U/L [facility] Specimen Blood - ARM, RIGHT Performing Organization Address [facility] Phone Number [facility] CLIA: [id number], [address] [place] [address] Basic Metabolic Panel (NA, K, CL, CO2, GLUCOSE, BUN, CREATININE, CA) (10/31/2019 1:58 PM CDT) [facility] [place] NA 137 135 - 145 [facility] mmol/L [facility] K 3.9 3.5 - 5.0 [facility] mmol/L [facility] CL 103 98 - 108 mmol/L [facility] CO2 TOTAL 23 23 - 31 mmol/L [facility] AGAP 11 2 - 16 [facility] BUN 9 7 - 23 mg/dL [facility] GLUCOSE 333 (H) 70 - 110 mg/dL [facility] CREATININE 0.70 0.60 - 1.25 [facility] mg/dL [facility] CALCIUM 8.6 8.6 - 10.6 [facility] mg/dL [facility] eGFR Calculation 124.9 mL/min/1.73m2 [facility] ([facility] LABORATORY Togolese) eGFR Calculation 151.4 mL/min/1.73m2 [facility] () [facility] Specimen Blood - ARM, RIGHT Narrative Performed At Association of Glomerular Filtration Rate (GFR) [facility] and Staging of Kidney Disease* + + +- + | GFR (mL/min/1.73 m2) | With Kidney Damage | Without Kidney Damage + + +- + | >90 | Stage one | Normal + + +- + | 60-89 | Stage two | Decreased GFR + + +- + | 30-59 | Stage three | Stage three + + +- + | 15-29 | Stage four | Stage four + + +- + | <15 (or dialysis) | Stage five | Stage five + + +- + *Each stage assumes the associated GFR level has been in effect for at least three months. Stages 1 to 5, with or without kidney disease, indicate chronic kidney disease. Notes: Determination of stages one and two (with eGFR >59mL/min/1.73 m2) requires estimation of kidney damage for at least three months as defined by structural or functional abnormalities of the kidney, manifested by either: Pathological abnormalities or Markers of kidney damage (including abnormalities in the composition of the blood or urine or abnormalities in imaging tests). Performing Organization Address City/State/Zipcode Phone Number [facility] CLIA: [id number], [address] [place], [place] [address] Urinalysis (10/31/2019 1:58 PM CDT) Pathologist Sig nature APPEARANCE Clear Clear [facility] COLOR Yellow Yellow [facility] PH 6.0 4.8 - 8.0 [facility] SP GRAVITY 1.028 1.003 - 1.030 [facility] GLU U QUAL 500 mg/dL (A) Normal [facility] BLOOD Negative Negative [facility] KETONES 20 mg/dL (A) Negative [facility] PROTEIN 30 mg/dL (A) Negative [facility] UROBILIN Normal Normal [facility] BILIRUBIN Negative Negative [facility] NITRITE Negative Negative [facility] LEUK MARCI Negative Negative [facility] RBC/HPF <1 0 - 3 HPF [facility] WBC/HPF <1 0 - 5 HPF [facility] BACTERIA Negative Negative [facility] MUCOUS Slight (A) Negative LPF [facility] Specimen Urine - URINE, CLEAN CATCH Performing Organization Address City/State/Zipcode Phone Number [facility] CLIA: [id number], [address] [place], [place] [address] documented in this encounter Visit Diagnoses Diagnosis Chest pain, unspecified type - Primary documented in this encounter Administered Medications Medication Order MAR Action Action Date Dose Rate Site nitroglycerin (NITROSTAT) Given 10/31/2019 2:06 PM CDT 0.4 mg sublingual tablet 0.4 mg 0.4 mg, Sublingual, Q5MIN PRN, 3 doses, Starting 10/31/19 at 1348, Until Discontinued, RADHA, Chest pain Given 10/31/2019 1:57 PM CDT 0.4 mg Medication Order MAR Action Action Date Dose Rate Site aspirin chewable tablet 243 mg Given 10/31/2019 1:57 PM CDT 243 mg 243 mg, Oral, ONCE, 1 dose, 10/31/19 at 1500, Routine insulin regular human (HUMULIN R) Given 10/31/2019 2:57 PM CDT 10 Units injection 10 Units 10 Units, Slow IV Push, ONCE, 1 dose, 10/31/19 at 1545, Routine iohexol (OMNIPAQUE 350 BULK-150 mL) Given 10/31/2019 2:51 PM CD T 120 mL injection 120 mL 120 mL, Intravenous, ONCE, 1 dose, 10/31/19 at 1500, Routine metoprolol tartrate (LOPRESSOR) tablet 5 0 mg Given 10/31/2019 1:57 PM CDT 50 mg 50 mg, Oral, ONCE, 1 dose, 10/31/19 at 1500, Routine NaCl 0.9% (NS) bolus infusion New Bag 10/31/2019 2:02 PM CDT 1,000 mL 999 mL/hr 1,000 mL at 999 mL/hr, 1,000 mL, IV Infusion, ONCE, 1 dose, 10/31/19 at 1400, RADHA documented in this encounter Additional Health Concerns Infection Noted Time Resolved Time MSSA Nasal Colonization 05/11/2019 7:13 AM CDT documented as of this encounter
[2020-01-12] MEDS ORDERED: Ringers Lactate 1,000 ML IV ONE (17:09)
[2020-01-12] MEDS ORDERED: HYDROCODONE/APAP 5/325 MG TAB ONE (17:09)
[2020-01-12 17:17] LABS: Absolute Lymphocytes (CBC) 1.3 K/uL (0.7-4.9); Basophils % 0.4 % (0-1.3); Hematocrit 47.3 % (39.6-49.0); Lymphocytes % 8.6 % (15.3-44.8); MPV 9.2 fL (7.6-11.3); RBC Red Blood Cell Count 5.08 M/uL (4.33-5.43)
[2020-01-12 17:18] LABS: Protime INR 0.99
[2020-01-12 17:32] LABS: ALT/SGPT 31 U/L (12-78); AST/SGOT 14 U/L (15-37); Alkaline Phosphatase 69 U/L (45-117); BUN Blood Urea Nitrogen 25 mg/dL (7-18); Bicarbonate 19 mmol/L (21-32); Bilirubin Direct 0.2 mg/dL (0-0.2); Bilirubin Total 0.7 mg/dL (0.2-1.0); Creatine Phosphokinase 122 U/L (39-308); Glucose Level 397 mg/dL (74-106); Magnesium 2.1 mg/dL (1.8-2.4); NT PRO-BNP 306 pg/mL (<125); Potassium 4.3 mmol/L (3.5-5.1); Protein, Total 7.8 g/dL (6.4-8.2); Sodium Level 131 mmol/L (136-145); Troponin (Emerg Dept Use Only) < 0.02 ng/mL (0.0-0.045)
--- NOTE | 2020-01-12 17:49 | ER ---
Nurse's Notes [facility] Name: Brett Kramer Age: 39 yrs Sex: Male : 1980 Arrival Date: 01/12/2020 Time: 15:59 Bed 5 Private MD: Diagnosis: Dehydration;Acute kidney failure Presentation: 01/11 16:10 Chief complaint: Patient states: Was outside since 1030am, around 11am started having ca1 abdominal cramps, N/V. It eased up after water, Pedialyte and a shower. At 1530, Had another episode and never went away. Reports headaches, pain all over and chest pain. Coronavirus screen: Proceed with normal triage. Patient denies a cough. Patient denies shortness of breath or difficulty breathing. Patient denies measured and/or subjective temperature greater than 100.4F prior to today's visit. Patient denies travel on a cruise ship or to a country the [facility] currently lists as an affected area. Patient denies contact with known and/or suspected case of COVID-19. Ebola Screen: Patient negative for fever greater than or equal to 101.5 degrees Fahrenheit, and additional compatible Ebola Virus Disease symptoms Patient denies exposure to infectious person. Patient denies travel to an Ebola-affected area in the 21 days before illness onset. No symptoms or risks identified at this time. Initial Sepsis Screen: Does the patient meet any 2 criteria? No. Patient's initial sepsis screen is negative. Does the patient have a suspected source of infection? No. Patient's initial sepsis screen is negative. Risk Assessment: Do you want to hurt yourself or someone else? Patient reports no desire to harm self or others. Onset of symptoms was January 12, 2020 at 11:00. 16:10 Method Of Arrival: Ambulatory ca1 16:10 Acuity: CLAIRE 3 ca1 Historical: - Allergies: 16:15 Cipro; ca1 16:15 propoxyphene napsylate; ca1 - PMHx: 16:15 Diabetes - NIDDM; Hypertension; PE; ca1 - PSHx: 16:15 Foot Surgery; ca1 - Immunization history:: Adult Immunizations up to date. - Social history:: Smoking status: Patient denies any tobacco usage or history of. Screenin:04 Abuse screen: Denies threats or abuse. Denies injuries from another. Nutritional ph screening: No deficits noted. Tuberculosis screening: No symptoms or risk factors identified. Fall Risk None identified. Assessment: 17:00 Pain: Complains of pain in anterior aspect of left upper chest Quality of pain is ph described as pressure, sharp. Neuro: Level of Consciousness is awake, alert, obeys commands, Oriented to person, place, time, situation, Reports dizziness, headache weakness. Neuro: Counting Machine Operator are equal bilaterally Moves all extremities. Full function Gait is steady, Speech is normal, Facial symmetry appears normal, Pupils are PERRLA. Cardiovascular: Capillary refill < 3 seconds in bilateral fingers Patient's skin is warm and dry. Cardiovascular: Reports chest pain, diaphoresis, fatigue, lightheadedness. Respiratory: Airway is patent Respiratory effort is even, unlabored, Respiratory pattern is regular, symmetrical. GI: No signs and/or symptoms were reported involving the gastrointestinal system. Derm: Skin is intact, Skin is pink, warm \T\ dry. Musculoskeletal: Circulation, motion, and sensation intact. Range of motion: intact in all extremities. 18:04 Reassessment: Patient appears in no apparent distress at this time. Patient and/or ph family updated on plan of care and expected duration. Pain level reassessed. Patient is alert, oriented x 3, equal unlabored respirations, skin warm/dry/pink. 19:21 General: Appears uncomfortable, Behavior is appropriate for age. Pain: Complains of ea pain in body aches. Neuro: Level of Consciousness is awake, alert, obeys commands, Oriented to person, place, time, situation. Cardiovascular: Patient's skin is warm and dry. Respiratory: Airway is patent Respiratory effort is even, unlabored, Respiratory pattern is regular, symmetrical. Derm: Skin is pink, warm \T\ dry. Musculoskeletal: Circulation, motion, and sensation intact. 20:33 Reassessment: Patient and/or family updated on plan of care and expected duration. Pain ea level reassessed. Patient is alert, oriented x 3, equal unlabored respirations, skin warm/dry/pink. 21:00 Reassessment: Patient and/or family updated on plan of care and expected duration. Pain ea level reassessed. Patient is alert, oriented x 3, equal unlabored respirations, skin warm/dry/pink. Awaiting on admission orders. 22:30 Reassessment: Report given to Receiving nurse on second floor. ea 22:48 Reassessment: Patient and/or family updated on plan of care and expected duration. Pain ea level reassessed. Patient is alert, oriented x 3, equal unlabored respirations, skin warm/dry/pink. Pt admitted to second floor, pt left ED via stretcher, tolerating well. Vital Signs: 16:10 BP 124 / 88; Pulse 122; Resp 19 S; Temp 98.6(O); Pulse Ox 99% on R/A; Weight 117.93 kg ca1 (R); Height 5 ft. 10 in. (177.80 cm) (R); Pain 8/10; 17:00 BP 157 / 86; Pulse 115; Resp 16; Pulse Ox 99% on R/A; ph 18:01 BP 161 / 73; Pulse 103; Resp 18; Pulse Ox 98% on R/A; ph 19:14 BP 141 / 81; Pulse 101; Resp 18; Pulse Ox 98% on R/A; ph 20:34 BP 157 / 78; Pulse 97; Resp 17; Pulse Ox 99% ; ea 16:10 Body Mass Index 37.30 (117.93 kg, 177.80 cm) ca1 ED Course: 15:59 Patient arrived in ED. as 16:14 Triage completed. ca1 16:15 Arm band placed on right wrist. ca1 16:17 Vipul Allen PA is PHCP. jr8 16:17 Albert Medina MD is Attending Physician. jr8 16:34 Tanja Echavarria, RN is Primary Nurse. ph 16:36 XRAY Chest (1 view) In Process Unspecified. EDMS 17:00 No provider procedures requiring assistance completed. Inserted saline lock: 22 gauge ph in right forearm, using aseptic technique. Blood collected. Patient admitted, IV remains in place. 17:48 Korey Ordonez MD is Hospitalizing Provider. jr8 18:04 Patient has correct armband on for positive identification. Placed in gown. Bed in low ph position. Call light in reach. Side rails up X 1. playground monitor on. Pulse ox on. NIBP on. Door closed. Noise minimized. Lights dimmed. Warm blanket given. 18:18 CT Abd/Pelvis - Without Contrast In Process Unspecified. EDMS 18:45 John Paul Clemens MD is Hospitalizing Provider. jr8 21:03 Primary Nurse role handed off by Tanja Echavarria RN sg 22:04 Coty Oliveira, KRISTINE is Primary Nurse. ea Administered Medications: 17:11 Drug: Ringers - Lactated Ringers Solution 1000 ml Route: IV; Rate: bolus; Site: right ph forearm; 19:16 Follow up: Response: No adverse reaction; IV Status: Completed infusion ph 17:12 Drug: [place] 5 mg-325 mg 1 tabs Route: PO; ph 19:15 Follow up: Response: No adverse reaction ph 18:10 Drug: Ringers - Lactated Ringers Solution 1000 ml Route: IV; Rate: 100 ml/hr; Site: jl7 right forearm; 19:15 Follow up: Response: No adverse reaction; IV Status: Infusion continued upon admission ph 18:10 Drug: Ringers - Lactated Ringers Solution 1000 ml Route: IV; Rate: bolus; Site: right jl7 forearm; 19:15 Follow up: Response: No adverse reaction; IV Status: Completed infusion; IV Intake: ph 1000ml 18:11 Drug: Valium 5 mg Route: IVP; Site: right forearm; jl7 19:15 Follow up: Response: No adverse reaction ph 19:37 Drug: fentaNYL (PF) 50 mcg {Note: RASS 0.} Route: IVP; Site: right antecubital; ea 20:49 Follow up: Response: No adverse reaction; Pain is unchanged, physician notified; RASS: ea Alert and Calm (0) 20:50 Drug: morphine 4 mg Route: IVP; Site: right forearm; ea 22:05 Follow up: Response: No adverse reaction; RASS: Alert and Calm (0) ea Intake: 19:15 IV: 1000ml; Total: 1000ml. ph Outcome: 17:48 Decision to Hospitalize by Provider. jr8 20:34 Instructed on the need for admit. ea 22:29 Admitted to Med/surg accompanied by tech, room 202, with chart, Report called to ea Receiving nurse on second floor. 22:29 Condition: stable 22:49 Patient left the ED. ea Signatures: Dispatcher [employer] EDMS Bowen Lopez RN RN sg Martinez, Amelia as Roszak, Josh, PA PA jr8 Tanja Echavarria RN RN Korey Willoughby RN RN [facility] Coty Oliveira RN RN ea Ally White RN RN ca1 Corrections: (The following items were deleted from the chart) 19:37 19:37 fentaNYL (PF) 50 mcg IVP in right antecubital robert jones
--- NOTE | 2020-01-12 17:49 | EDPHYS ---
Physician Documentation [facility] Name: Brett Kramer Age: 39 yrs Sex: Male : 1980 Arrival Date: 01/12/2020 Time: 15:59 Bed 5 Private MD: ED Physician Albert Medina HPI: 01/11 16:54 This 39 yrs old Male presents to ER via Ambulatory with complaints of Heat jr8 Exposure, Chest Pain, Pain All Over. 16:54 Patient stated that he was at work outside most of the day. Started to have heat jr8 cramping and abdominal cramping. Rested for a while and went away so went back to work. Stated that it started to happen again but worse now and cannot get pain to go away. Now having chest pain and vomiting . Severity of symptoms: At their worst the symptoms were moderate in the emergency department the symptoms are unchanged. The patient has not experienced similar symptoms in the past. The patient has not recently seen a physician. Historical: - Allergies: 16:15 Cipro; ca1 16:15 propoxyphene napsylate; ca1 - PMHx: 16:15 Diabetes - NIDDM; Hypertension; PE; ca1 - PSHx: 16:15 Foot Surgery; ca1 - Immunization history:: Adult Immunizations up to date. - Social history:: Smoking status: Patient denies any tobacco usage or history of. ROS: 16:54 Eyes: Negative for injury, pain, redness, and discharge, ENT: Negative for injury, jr8 pain, and discharge, Neck: Negative for injury, pain, and swelling, Respiratory: Negative for shortness of breath, cough, wheezing, and pleuritic chest pain, Back: Negative for injury and pain, MS/Extremity: Negative for injury and deformity, Skin: Negative for injury, rash, and discoloration. 16:54 Constitutional: Positive for body aches. 16:54 Cardiovascular: Positive for chest pain, Negative for edema, orthopnea, palpitations, paroxysmal nocturnal dyspnea. 16:54 Abdomen/GI: Positive for nausea and vomiting, abdominal cramps, Negative for diarrhea. 16:54 Neuro: Positive for headache, near syncope. Exam: 16:54 Eyes: Pupils equal round and reactive to light, extra-ocular motions intact. Lids and jr8 lashes normal. Conjunctiva and sclera are non-icteric and not injected. Cornea within normal limits. Periorbital areas with no swelling, redness, or edema. ENT: Nares patent. No nasal discharge, no septal abnormalities noted. Tympanic membranes are normal and external auditory canals are clear. Oropharynx with no redness, swelling, or masses, exudates, or evidence of obstruction, uvula midline. Mucous membranes moist. Neck: Trachea midline, no thyromegaly or masses palpated, and no cervical lymphadenopathy. Supple, full range of motion without nuchal rigidity, or vertebral point tenderness. No Meningismus. Respiratory: Lungs have equal breath sounds bilaterally, clear to auscultation and percussion. No rales, rhonchi or wheezes noted. No increased work of breathing, no retractions or nasal flaring. Abdomen/GI: Soft, non-tender, with normal bowel sounds. No distension or tympany. No guarding or rebound. No evidence of tenderness throughout. Back: No spinal tenderness. No costovertebral tenderness. Full range of motion. Skin: Warm, dry with normal turgor. Normal color with no rashes, no lesions, and no evidence of cellulitis. MS/ Extremity: Pulses equal, no cyanosis. Neurovascular intact. Full, normal range of motion. Neuro: Awake and alert, GCS 15, oriented to person, place, time, and situation. Cranial nerves II-XII grossly intact. Motor strength 5/5 in all extremities. Sensory grossly intact. Cerebellar exam normal. Normal gait. 16:54 Cardiovascular: Rate: tachycardic, Rhythm: regular, Pulses: Pulses are 2+ in right radial artery and left radial artery. Heart sounds: normal, normal S1and S2, no S3 or S4, no murmur, no rub, no gallop, Edema: is not appreciated, JVD: is not appreciated. 16:54 ECG was reviewed by the Attending Physician. Vital Signs: 16:10 BP 124 / 88; Pulse 122; Resp 19 S; Temp 98.6(O); Pulse Ox 99% on R/A; Weight 117.93 kg ca1 (R); Height 5 ft. 10 in. (177.80 cm) (R); Pain 8/10; 17:00 BP 157 / 86; Pulse 115; Resp 16; Pulse Ox 99% on R/A; ph 18:01 BP 161 / 73; Pulse 103; Resp 18; Pulse Ox 98% on R/A; ph 19:14 BP 141 / 81; Pulse 101; Resp 18; Pulse Ox 98% on R/A; ph 20:34 BP 157 / 78; Pulse 97; Resp 17; Pulse Ox 99% ; ea 16:10 Body Mass Index 37.30 (117.93 kg, 177.80 cm) ca1 MDM: 16:18 Patient medically screened. jr8 17:39 Data reviewed: vital signs, nurses notes, lab test result(s), EKG, radiologic studies, jr8 CT scan, plain films. Data interpreted: Pulse oximetry: on room air is 99 %. Interpretation: normal. Counseling: I had a detailed discussion with the patient and/or guardian regarding: the historical points, exam findings, and any diagnostic results supporting the discharge/admit diagnosis, lab results, radiology results, the need for further work-up and treatment in the hospital. 17:48 Response to treatment: the patient's symptoms have mildly improved after treatment. jr8 Physician consultation: Korey Ordonez MD was called at 17:48, was contacted at 17:48, regarding admission, to the telemetry unit. consult, patient's condition, and will see patient. 01/11 16:18 Order name: Basic Metabolic Panel; Complete Time: 17:35 8 01/11 16:18 Order name: CBC with Diff; Complete Time: 17:23 8 01/11 16:18 Order name: LFT's; Complete Time: 17:35 8 01/11 16:18 Order name: Magnesium; Complete Time: 17:35 8 01/11 16:18 Order name: NT PRO-BNP; Complete Time: 17:35 8 01/11 16:18 Order name: PT-INR; Complete Time: 17:30 8 01/11 16:18 Order name: Troponin (emerg Dept Use Only); Complete Time: 17:35 8 01/11 16:18 Order name: CPK; Complete Time: 17:35 8 01/11 21:52 Order name: CBC with Automated Diff EDMS 01/11 21:52 Order name: CBC with Automated Diff EDMS 01/11 21:52 Order name: Comprehensive Metabolic Panel EDMS 01/11 21:52 Order name: Comprehensive Metabolic Panel EDMS 01/11 21:52 Order name: Creatine Phosphokinase EDMS 01/11 21:52 Order name: Creatine Phosphokinase [facility] 01/11 16:18 Order name: XRAY Chest (1 view); Complete Time: 16:59 [facility] 01/11 16:18 Order name: EKG; Complete Time: 16:18 01/11 17:38 Order name: CT Abd/Pelvis - Without Contrast; Complete Time: 18:44 [facility] 01/11 21:52 Order name: Creatine Phosphokinase [facility] 01/11 21:52 Order name: Creatine Phosphokinase [facility] 01/11 21:52 Order name: Protime (+INR) [facility] 01/11 21:52 Order name: Protime (+INR) [facility] 01/11 21:52 Order name: PTT, Activated Partial Thromb [facility] 01/11 21:52 Order name: PTT, Activated Partial Thromb [facility] 01/11 16:18 Order name: Cardiac monitoring; Complete Time: 17: [facility] 01/11 16:18 Order name: EKG - Nurse/Tech; Complete Time: 17: 01/11 16:18 Order name: IV Saline Lock; Complete Time: 17:01/11 16:18 Order name: Labs collected and sent; Complete Time: 17: [facility] 01/11 16:18 Order name: O2 Per Protocol; Complete Time: 17: [facility] 01/11 16:18 Order name: O2 Sat Monitoring; Complete Time: 17: 01/11 21:52 Order name: CONS Pharmacy Consult [facility] 01/11 21:52 Order name: Regular EDME EC:54 Rate is 118 beats/min. Rhythm is regular, Sinus tachycardia. QRS [place] is Normal. OR jr8 interval is normal at 160 msec. QRS interval is normal at 98 msec. QT interval is prolonged at 476 msec. No Q waves. T waves are Inverted in leads I, aVL. No ST changes noted. Clinical impression: Sinus tachycardia. Interpreted by me. Reviewed by me. Administered Medications: 17:11 Drug: Ringers - Lactated Ringers Solution 1000 ml Route: IV; Rate: bolus; Site: right ph forearm; 19:16 Follow up: Response: No adverse reaction; IV Status: Completed infusion ph 17:12 Drug: [place] 5 mg-325 mg 1 tabs Route: PO; ph 19:15 Follow up: Response: No adverse reaction ph 18:10 Drug: Ringers - Lactated Ringers Solution 1000 ml Route: IV; Rate: 100 ml/hr; Site: jl7 right forearm; 19:15 Follow up: Response: No adverse reaction; IV Status: Infusion continued upon admission ph 18:10 Drug: Ringers - Lactated Ringers Solution 1000 ml Route: IV; Rate: bolus; Site: right jl7 forearm; 19:15 Follow up: Response: No adverse reaction; IV Status: Completed infusion; IV Intake: ph 1000ml 18:11 Drug: Valium 5 mg Route: IVP; Site: right forearm; jl7 19:15 Follow up: Response: No adverse reaction ph 19:37 Drug: fentaNYL (PF) 50 mcg {Note: RASS 0.} Route: IVP; Site: right antecubital; ea 20:49 Follow up: Response: No adverse reaction; Pain is unchanged, physician notified; RASS: ea Alert and Calm (0) 20:50 Drug: morphine 4 mg Route: IVP; Site: right forearm; ea 22:05 Follow up: Response: No adverse reaction; RASS: Alert and Calm (0) ea Disposition: 01/12 09:12 Co-signature as Attending Physician, Albert Medina MD I agree with the assessment and kdr plan of care. Disposition: 01/12/20 17:48 Hospitalization ordered by John Paul Clemens for Inpatient Admission. Preliminary diagnosis are Dehydration, Acute kidney failure. - Bed requested for Telemetry/MedSurg (Inpatient). - Status is Inpatient Admission. ea - Condition is Fair. - Problem is new. - Symptoms have improved. Signatures: Dispatcher [employer] EDMS Yessy Bey RN RN kl Rittger, Kevin, MD MD kdr Roszak, Josh, PA PA jr8 Tanja Echavarria RN RN ph Leal, Jahala, RN RN jl7 Coty Oliveira RN RN ea Acob, Cheryl RN KRISTINE ca1 Corrections: (The following items were deleted from the chart) 01/11 18:45 17:48 Hospitalization Ordered by Korey Ordonez MD for Inpatient Admission. jr8 Preliminary diagnosis is Dehydration; Acute kidney failure. Bed requested for Telemetry/MedSurg (Inpatient). Status is Inpatient Admission. Condition is Fair. Problem is new. Symptoms have improved. jr8 22:00 18:45 01/12/2020 17:48 Hospitalization Ordered by John Paul Clemens MD for Inpatient kl Admission. Preliminary diagnosis is Dehydration; Acute kidney failure. Bed requested for Telemetry/MedSurg (Inpatient). Status is Inpatient Admission. Condition is Fair. Problem is new. Symptoms have improved. jr8 22:49 22:00 01/12/2020 17:48 Hospitalization Ordered by John Paul Clemens MD for Inpatient ea Admission. Preliminary diagnosis is Dehydration; Acute kidney failure. Bed requested for Telemetry/MedSurg (Inpatient). Status is Inpatient Admission. Condition is Fair. Problem is new. Symptoms have improved. kl
[2020-01-12] MEDS ORDERED: Ringers Lactate 2,000 ML IV ONE (18:06)
[2020-01-12] MEDS ORDERED: DIAZEPAM 10 MG/2 ML INJ SYRINGE ONE (18:06)
--- NOTE | 2020-01-12 18:34 | RAD REPORT ---
EXAM DESCRIPTION: CT - Abdomen Pelvis Wo Contrast - 01/12/2020 6:19 pm CLINICAL HISTORY: Abdominal pain COMPARISON: None TECHNIQUE: Computed axial tomography of the abdomen and pelvis was obtained. IV and oral contrast we re not requested. All CT scans are performed using dose optimization technique as appropriate and may include automated exposure control or mA/KV adjustment according to patient size. FINDINGS: The evaluation of solid organs, vessels and bowel is limited secondary to the lack of con trast administration. 1 millimeter nonobstructing right renal calculus. The liver, spleen, pancreas, adrenals and left kidney appear grossly normal. . There is no evidence of diverticulitis. Small right inguinal hernia contains fat IMPRESSION: No acute abnormality is displayed.
[2020-01-12] MEDS ORDERED: FENTANYL CITR 100 MCG/2 ML ONE (19:39)
[2020-01-12] MEDS ORDERED: MORPHINE 4 MG/ML SYR ONE (20:51)
[2020-01-12] MEDS ORDERED: ACETAMINOPHEN 500 MG TAB PO PRN (21:47)
[2020-01-12] MEDS ORDERED: D5W 1,000 ML with NA BICARB 8.4% 50 MEQ IV SCH ×2 (22:00)
[2020-01-12 22:57] VITALS: BMI 37.0
[2020-01-13] MEDS: ONDANSETRON 4 MG/2 ML VIAL IV PRN ×3 (00:06→08:45)
[2020-01-13] MEDS: MORPHINE 2 MG/ML SYR IV PRN ×4 (00:06→13:40)
--- NOTE | 2020-01-13 02:50 | P.HP ---
Certification for Inpatient Patient admitted to: Inpatient With expected LOS: >2 Midnights Patient will require the following post-hospital care: None Practitioner: I am a practitioner with admitting privileges, knowledge of patient current condition, hospital course, and medical plan of care. Services: Services provided to patient in accordance with Admission requirements found in Title 42 Section 412.3 of the Code of Federal Regulations Patient History Date of Service: 01/12/20 Reason for admission: Acute kidney injury History of Present Illness: Patient is a 39-year-old with history of diabetes who came to the hospital with generalized body aches and pain. Patient has history of foot injury that was crushed at work. Patient been having multiple complications since this time. Over the last few days he has been feeling gradually weaker. He has been taking a lot of Aleve and Advil. He was not feeling better so he came into the emergency room for evaluation. In the ER he was found have acute kidney injury. This most likely to NSAID related nephropathy. Will go ahead and hydrate him. His blood sugars have been elevated as well. He does need better control of his blood sugars. Patient be admitted to the hospital for further evaluation. Allergies NKDA Allergy (Uncoded 08/20/15 19:06) Unknown No Known Allergies Allergy (Uncoded 12/23/15 04:29) Unknown Home Medications: Gabapentin 600 mg PO TID 01/26/19 Hydrocodone Bit/Acetaminophen [[place] 10-325 Tablet] 1 tab PO Q6HP PRN 01/26/19 Metformin HCl [Glucophage] 1,000 mg PO BID 01/26/19 Metoprolol Succinate [Toprol Xl*] 50 mg PO BID 01/26/19 methocarbamoL [Robaxin*] 500 mg PO Q8H 01/26/19 Buprenorphine 1 each TD EVERY 7TH DAY 01/12/20 - Past Medical/Surgical History Has patient received pneumonia vaccine in the past: Yes Diabetic: Yes -: HTN -: Asthma -: pulmonary embolism -: NIDDM -: right rotator cuff surgery -: right toe surgery jun 2018 - Family History Father Medical History: Heart disease, Hypertension, Lung disease, Diabetes, Kidney disease Mother Medical History: Heart disease, Hypertension, Other (see notes) Notes: pvd Brother Medical History: Heart disease, Diabetes, Kidney disease Sister Medical History: Other (see notes) Notes: back problems and thyroid problems - Social History Smoking Status: Former smoker Alcohol use: Yes CD- Drugs: No Caffeine use: Yes Place of Residence: Home Review of Systems 10-point ROS is otherwise unremarkable Physical Examination - Vital Signs Temperature: 98.9 F Blood Pressure: 153/78 Pulse: 100 Respirations: 20 Pulse Ox (%): 96 - Physical Exam General: Alert, In no apparent distress, Oriented x3 HEENT: Atraumatic, PERRLA, Mucous membr. moist/pink, EOMI, Sclerae nonicteric Neck: Supple, 2+ carotid pulse no bruit, No LAD, Without JVD or thyroid abnormality Respiratory: Clear to auscultation bilaterally, Normal air movement Cardiovascular: Regular rate/rhythm, Normal S1 S2, No murmurs Gastrointestinal: Normal bowel sounds, Soft and benign, Non-distended, No tenderness Musculoskeletal: No clubbing, No swelling, No tenderness Integumentary: No rashes Neurological: Normal gait, Normal speech, Normal strength at 5/5 x4 extr, Normal tone, Sensation intact, Cranial nerves 3-12 intact, Normal affect Lymphatics: No axilla or inguinal lymphadenopathy - Studies Laboratory Data (last 24 hrs) 01/12/20 16:50: PT 11.7, INR 0.99 01/12/20 16:50: WBC 15.3 H, Hgb 16.0, Hct 47.3, Plt Count 235 01/12/20 16:50: Sodium 131 L, Potassium 4.3, BUN 25 H, Creatinine 2.16 H, Glucose 397 H, Magnesium 2.1, Total Bilirubin 0.7, AST 14 L, ALT 31, Alkaline Phosphatase 69 Assessment & Plan - Problems (Diagnosis) (1) Nephropathy due to nonsteroidal anti-inflammatory drug (NSAID) Current Visit: Yes Status: Resolved (2) Acute kidney failure Current Visit: Yes Status: Acute (3) Obesity Onset Date: 10/31/14 Current Visit: No Status: Acute (4) Diabetes Current Visit: No Status: Chronic (5) Hypertension Onset Date: 10/31/14 Current Visit: No Status: Chronic (6) Obstructive apnea Current Visit: No Status: Chronic (7) Acute anxiety Current Visit: No Status: Resolved - Plan Plan: 1. Continue with aggressive IV hydration 2. Monitor renal function 3. Monitor white blood cell count and continue with IV antibiotics 4. Mushroom Cultivator regarding stopping NSAIDs 5. Patient has a headache that will treat with Tylenol on aspirin along with of low-dose muscle wax err 6. Out of bed and ambulate 7. As renal function improves then we should be able to discharge patient with close outpatient follow-up 8. GI and DVT prophylaxis Discharge Plan: Home Plan to discharge in: Greater than 2 days - Advance Directives Does patient have a Living Will: No Does patient have a Durable POA for Healthcare: No - Code Status/Comfort Care Code Status Assessed: Yes Code Status: Full Code Critical Care: No Time Spent Managing PTS Care (In Minutes): 35
[2020-01-13] MEDS ORDERED: HYDROCODONE/APAP 10/325 TAB PO PRN (03:25)
[2020-01-13] MEDS ORDERED: CEFTRIAXONE/SWI 1gm 1 GM/10 ML SYR IV SCH (04:00)
[2020-01-13] MEDS ORDERED: NA CHLORIDE 0.9% 1,000 ML IV SCH (04:00)
[2020-01-13 04:34] LABS: Urine Appearance CLEAR; Urine Bilirubin NEGATIVE (NEG); Urine Blood NEGATIVE (NEG); Urine Color YELLOW; Urine Glucose 3+ (NEG); Urine Protein 1+ (NEG); Urine Specific Gravity >=1.030 (1.005-1.030); Urine Urobilinogen 0.2 mg/dL (0.2-1.0)
[2020-01-13] MEDS: methocarbamoL 500 MG TAB PO SCH ×2 (04:47→12:20)
[2020-01-13 05:22] LABS: Urine Bacteria <20 /HPF (NONE SEEN); Urine Culture Reflex Order NOT NEEDED; Urine RBC NONE SEEN /HPF (NONE SEEN); Urine Urothelial Cells <5 /HPF (NONE SEEN)
[2020-01-13 05:40] LABS: Absolute Lymphocytes (CBC) 3.4 K/uL (0.7-4.9); Basophils % 0.7 % (0-1.3); Hematocrit 43.9 % (39.6-49.0); Lymphocytes % 41.2 % (15.3-44.8); MPV 8.9 fL (7.6-11.3); RBC Red Blood Cell Count 4.71 M/uL (4.33-5.43)
[2020-01-13 05:43] LABS: Protime INR 0.9
[2020-01-13 06:08] LABS: Albumin 3.4 g/dL (3.4-5.0); Bilirubin Total 0.4 mg/dL (0.2-1.0); Potassium 4.1 mmol/L (3.5-5.1); Protein, Total 6.9 g/dL (6.4-8.2)
--- NOTE | 2020-01-13 06:30 | EKG ---
Test Date: 2020-01-12 Test Time: 16:31:33 Senior Ui Ux Designer: JOSE MEASUREMENT RESULTS: Intervals: Rate: 118 FL: 160 QRSD: 98 QT: 340 QTc: 476 [place]: P: 53 FL: 160 QRS: 86 T: 101 INTERPRETIVE STATEMENTS: Sinus tachycardia Possible Left atrial enlargement Nonspecific ST abnormality Abnormal ECG Compared to ECG 01/26/2019 10:34:35 ST (T wave) deviation now present T-wave abnormality no longer present Possible ischemia no longer present Electronically Signed On 01-13-20 06:30:09 CDT by Koko Menjivar
[2020-01-13 06:33] VITALS: O2SAT 100
[2020-01-13] MEDS ORDERED: D50W 25 GM/50 ML SYRINGE/VIAL IV PRN (07:44)
[2020-01-13] MEDS ORDERED: GLUCAGON 1 MG/VIAL IM PRN (07:44)
[2020-01-13] MEDS ORDERED: CYCLOBENZAPRINE 10 MG TAB PO ONE (08:14)
[2020-01-13] MEDS ORDERED: ACETAMIN/CAFFEINE/BUTALB TAB PO ONE (08:14)
[2020-01-13] MEDS ORDERED: ASPIRIN EC 81 MG TAB PO ONE (08:14)
--- NOTE | 2020-01-13 08:14 | P.PN ---
Subjective Date of Service: 01/13/20 Patient complaining of headache. Still with generalized body aches. Still having lot of pain. Review of Systems 10-point ROS is otherwise unremarkable Physical Examination - Vital Signs Temperature: 98.9 F Blood Pressure: 153/78 Pulse: 100 Respirations: 20 Pulse Ox (%): 96 - Physical Exam General: Alert, In no apparent distress, Oriented x3 Respiratory: Clear to auscultation bilaterally, Normal air movement Cardiovascular: Regular rate/rhythm, Normal S1 S2, Systolic murmur Gastrointestinal: Normal bowel sounds, Hypoactive, Soft and benign, Non- distended Musculoskeletal: No clubbing, No swelling, No contractures - Studies Laboratory Data (last 24 hrs) 01/12/20 16:50: PT 11.7, INR 0.99 01/12/20 16:50: WBC 15.3 H, Hgb 16.0, Hct 47.3, Plt Count 235 01/12/20 16:50: Sodium 131 L, Potassium 4.3, BUN 25 H, Creatinine 2.16 H, Glucose 397 H, Magnesium 2.1, Total Bilirubin 0.7, AST 14 L, ALT 31, Alkaline Phosphatase 69 Assessment & Plan - Problems (Diagnosis) (1) Nephropathy due to nonsteroidal anti-inflammatory drug (NSAID) Current Visit: Yes Status: Resolved (2) Acute kidney failure Current Visit: Yes Status: Acute (3) Obesity Onset Date: 10/31/14 Current Visit: No Status: Acute (4) Diabetes Current Visit: No Status: Chronic (5) Hypertension Onset Date: 10/31/14 Current Visit: No Status: Chronic (6) Obstructive apnea Current Visit: No Status: Chronic (7) Acute anxiety Current Visit: No Status: Resolved - Plan Plan: 1. Continue with aggressive IV hydration 2. Monitor renal function 3. Monitor white blood cell count and continue with IV antibiotics 4. Camp Guard regarding stopping NSAIDs 5. Patient has a headache that will treat with Tylenol on aspirin along with of low-dose muscle wax err 6. Out of bed and ambulate 7. As renal function improves then we should be able to discharge patient with close outpatient follow-up 8. GI and DVT prophylaxis Discharge Plan: Home Plan to discharge in: 48 Hours - Advance Directives Does patient have a Living Will: No Does patient have a Durable POA for Healthcare: No - Code Status/Comfort Care Code Status: Full Code Critical Care: No Time Spent Managing PTS Care (In Minutes): 30
[2020-01-13] MEDS ORDERED: GLIMEPIRIDE 2 MG TABLET PO SCH (08:15)
[2020-01-13] MEDS: GABAPENTIN 300 MG CAP PO SCH ×2 (08:44→13:40)
--- NOTE | 2020-01-13 08:54 | RAD REPORT ---
EXAM DESCRIPTION: US - Renal Ultrasound-Complete - 01/13/2020 8:45 am CLINICAL HISTORY: acute on chronic renal dz COMPARISON: Abdomen Pelvis Wo Contrast dated 01/12/2020 FINDINGS: The right kidney measures 11.6 x 6.4 x 6.7 cm. The left kidney measures 12.1 x 6.2 x 6.3 cm. Renal cortical thickness and echogenicity are normal. No hydronephrosis or suspicious renal mass. Bladder is only partially visualized. No gross abnormality seen. IMPRESSION: No hydronephrosis or suspicious renal mass. No other significant findings.
[2020-01-13] MEDS ORDERED: INSULIN GLARGINE 100 UNITS/ML SQ SCH (09:00)
[2020-01-13] MEDS ORDERED: METOPROLOL XL 100 MG TAB PO SCH (09:00)
[2020-01-13] MEDS ORDERED: AMLODIPINE 5 MG TAB PO SCH (09:00)
[2020-01-13] MEDS ORDERED: BUPRENORPHINE TD SCH (09:00)
[2020-01-13] MEDS ORDERED: METOPROLOL XL 50 MG TAB PO SCH (09:00)
--- NOTE | 2020-01-13 14:23 | CON ---
Date of Consultation: 01/13/2020 Reason For Consultation: Atypical chest pain, history of hypertension. History Of Present Illness: Mr. Kramer is a 39-year-old Latin-Greek male. He has a history of hypertension and dyslipidemia. He came in with heat exposure, chest pain, but he also complained of aches all over. Denied nausea, vomiting. Had diaphoresis. No shortness of breath. Denied PND, ort hopnea, pedal edema, or syncope. Had some palpitation. His EKG was unremarkable. His chest x-ray w as unremarkable. His troponin was negative. His BNP was slightly elevated. His creatinine was 2.16 . He had a glucose of 397. He had a BNP of 306. Patient was being hydrated. The next creatinine a fter admission went from 2.16 to 1.28. He had a white count of 15,000 and went down to 8.3. He is o n antibiotics. Past Medical History: As stated above. Allergies: NONE. Review of Systems: Negative. Social History: Negative. Family History: Negative. Medications: At home include metoprolol, gabapentin, metformin, and Robaxin. Physical Examination: Vital signs: Stable, afebrile. Sinus rhythm. HEENT: Negative. Neck: Supple with no bruit. Chest: Clear. Cardiac: Revealed a regular rhythm and rate. No murmurs, gallops, or rubs. Abdomen: Benign. Extremities: Revealed no clubbing, cyanosis, or edema. Diagnostic Data: As stated earlier. Impression And Plan: Atypical chest pain with diffuse body ache after heat exposure. Has normal CPK -MB and troponin. He obviously does not have rhabdomyolysis, but his symptoms including the elevated creatinine are certainly suggestive of dehydration. I agree with his present regimen. Echocardiogr am is pending. His diabetes is poorly controlled. His blood pressure is poorly controlled. He is o n metformin. He is on metoprolol at home. He is now also on Norvasc. He is on antibiotics for elev ated white count and I agree with that. No plan for any cardiac workup, except for the echocardiogra m at this point. If that is normal, we can certainly hydrate him and send him home. JOSHUA/ASHLEIGHL Voice ID: [id number] Report ID: [id number]
[2020-01-13 14:49] VITALS: BP 140/85; TEMP 97.3
--- NOTE | 2020-01-13 16:08 | CON ---
Date of Consultation: 01/13/2020 Reason For Consultation: Elevated BUN and creatinine. History Of Present Illness: This is a pleasant 39-year-old gentleman with significant past medical h istory of diabetes, no neuropathy, no retinopathy, hypertension, bronchial asthma, PE, the patient ca me to the hospital because he was having pain, generalized weakness. Patient upon arrival found to h ave elevated BUN and creatinine. Patient complaining some nausea and vomiting. Patient admits that he has been taking Aleve 2 to 3 tablets daily for the last 2 weeks. Denied IV contrast. Denied any change in his medication. Patient being on metformin, also no TONNY inhibitor. Upon arrival to the hospital, creatinine was elevated up to 2.1. For that reason, we have been consu lted. Patient was started on aggressive hydration. Kidney function improved. Creatinine down to 1. 2, GFR of 62. The patient's hemoglobin A1c was 10.1. Past Medical History: 1.Diabetes. 2.Hypertension. 3.Bronchial asthma. 4.PE. Surgical History: Includes rotator cuff repair, toe surgery. Family History: Positive for hypertension and diabetes. Social History: Ex-smoker. Active alcohol. Denied drugs abuse. Home Medications: Include gabapentin, hydrocodone, metformin, metoprolol, methocarbamol, Robaxin. Review of Systems: Head and Neck: No red eye. No ear pain. GI: Nausea. No vomiting. : No polyuria, no dysuria, no hematuria. COMMUNICATIONS PROGRAM MANAGER: Not applicable. Respiratory: No shortness of breath. Cardiovascular: No chest pain. Endocrine: No polydipsia. Skin: No rash. Neuro: Generalized fatigue. Musculoskeletal: Generalized body ache. Physical Examination: Vital Signs: When I saw the patient, blood pressure 162/89, pulse of 65, afebrile. The patient had good urine output of 1100. Chest: Clear to auscultation. Heart: S1, S2. Regular. Abdomen: Soft, nontender. Extremities: No edema. Laboratory Data: Sodium 138, potassium 4.1, bicarb 25, BUN 30, creatinine 1.2, calcium of 9. WBC 8. 3, H and H 14.9/43.9, platelets 224. Upon admission, H and H 16/47.3, creatinine 2.1, GFR of 34. Ur inalysis specific gravity above 1.030, +1 protein. Renal ultrasound showing normal size kidney 11.6 x 12.1. Assessment And Plan: 1.Acute kidney injury, normal size kidney. Proteinuric, nonnephrotic, secondary to prerenal superim posed of nonsteroidal use, superimposed with glucose diuresis secondary to uncontrolled blood sugar, under recovery, resolve. I am going to continue hydration. Patient cleared from the renal standpoin t for discharge planning to follow up in the office in 2 to 3 weeks. 2.Hypertension, not controlled. I going to go ahead and start the patient on carvedilol. Agree wit h metoprolol and amlodipine. We will increase amlodipine to 10 mg. We will hold on adding any angio tensin converting enzyme inhibitor or angiotensin receptor isabel for the time being as the patient just recovered from acute kidney injury, but the patient will benefit as outpatient from that. 3.Arthritis. Advised the patient to avoid any nonsteroidal. 4.Diabetes as by Primary. Patient is going to need better blood sugar control. Thank you, Dr. Ansari, for allowing us to participate in the care of your patient. TYREE Voice ID: [id number] Report ID: [id number]
--- NOTE | 2020-01-14 08:32 | ECHO ---
HEIGHT: 5 ft 10 in WEIGHT: 257 lb 12.8 oz DATE OF STUDY: 01/13/[address]: Narinder Ansari DO 2-DIMENSIONAL: YES M.MODE: YES DOPPLER: YES COLOR FLOW: YES TDS: YES PORTABLE: NO DEFINITY: NO BUBBLE STUDY: NO DIAGNOSIS: HYPERTENSION, CHEST PAIN CARDIAC HISTORY: CATHERIZATION: NO SURGERY: NO PROSTHETIC VALVE: NO PACEMAKER: NO MEASUREMENTS (cm) DIASTOLIC (NORMALS) SYSTOLIC (NORMALS) IVSd 1.2 (0.6-1.2) LA Diam 3.2 (1.9-4.0) LVEF 69% LVIDd 3.3 (3.5-5.7) LVIDs 2.1 (2.0-3.5) %FS 37% LVPWd 1.3 (0.6-1.2) Ao Diam 2.8 (2.0-3.7) 2 DIMENSIONAL ASSESSMENT: RIGHT ATRIUM: NORMAL LEFT ATRIUM: NORMAL RIGHT VENTRICLE: NORMAL LEFT VENTRICLE: NORMAL TRICUSPID VALVE: NORMAL MITRAL VALVE: NORMAL PULMONIC VALVE: NORMAL AORTIC VALVE: NORMAL PERICARDIAL EFFUSION: NONE AORTIC ROOT: NORMAL LEFT VENTRICULAR WALL MOTION: NORMAL. DOPPLER/COLOR FLOW: NORMAL. COMMENTS: NORMAL 2D ECHO WITH DOPPLER. TECHNICALLY DIFFICULT STUDY. NO EFFUSION. NO WALL MOTION ABNORMALITY. TECHNOLOGIST: ALICE KELSEY
[2020-01-14] MEDS ORDERED: AMLODIPINE 10 MG TAB PO SCH (09:00)
--- NOTE | 2020-01-17 06:23 | P.DS ---
Discharge Date: 01/13/20 Disposition: DC HOME/HOME HEALTH CARE Reason for Admission: Acute kidney injury Consultations: Nephrology and Cardiology - Problems (1) Nephropathy due to nonsteroidal anti-inflammatory drug (NSAID) Status: Resolved (2) Acute kidney failure Status: Acute (3) Obesity Onset Date: 10/31/14 Status: Acute (4) Diabetes Status: Chronic (5) Hypertension Onset Date: 10/31/14 Status: Chronic (6) Obstructive apnea Status: Chronic (7) Acute anxiety Status: Resolved Brief History of Present Illness: Patient is a 39-year-old with history of diabetes who came to the hospital with generalized body aches and pain. Patient has history of foot injury that was crushed at work. Patient been having multiple complications since this time. Over the last few days he has been feeling gradually weaker. He has been taking a lot of Aleve and Advil. He was not feeling better so he came into the emergency room for evaluation. In the ER he was found have acute kidney injury. This most likely to NSAID related nephropathy. Will go ahead and hydrate him. His blood sugars have been elevated as well. He does need better control of his blood sugars. Patient be admitted to the hospital for further evaluation. Hospital Course: Patient is clinically doing well. At this time, patient stable for discharge with outpatient follow-up. Strict blood sugar control. Monitor renal function closely. Vital Signs/Physical Exam: Temp Pulse Resp BP Pulse Ox 97.3 F 89 19 140/85 97 01/13/20 12:00 01/13/20 12:00 01/13/20 14:10 01/13/20 12:00 01/13/20 14:10 General: Alert, In no apparent distress, Oriented x3 Laboratory Data at Discharge: WBC 8.3 K/uL (4.3-10.9) D 01/13/20 05:06 Hgb 14.9 g/dL (13.6-17.9) 01/13/20 05:06 Hct 43.9 % (39.6-49.0) 01/13/20 05:06 Plt Count 224 K/uL (152-406) 01/13/20 05:06 PT 10.6 SECONDS (9.5-12.5) 01/13/20 05:06 INR 0.90 01/13/20 05:06 APTT 32.5 SECONDS (24.3-36.9) 01/13/20 05:06 Sodium 138 mmol/L (136-145) 01/13/20 05:06 Potassium 4.1 mmol/L (3.5-5.1) 01/13/20 05:06 BUN 30 mg/dL (7-18) H 01/13/20 05:06 Creatinine 1.28 mg/dL (0.55-1.3) 01/13/20 05:06 Glucose 245 mg/dL (74-106) H 01/13/20 05:06 Uric Acid 7.0 mg/dL (3.5-7.2) 01/13/20 05:06 Magnesium 2.1 mg/dL (1.8-2.4) 01/12/20 16:50 Total Bilirubin 0.4 mg/dL (0.2-1.0) 01/13/20 05:06 AST 11 U/L (15-37) L 01/13/20 05:06 ALT 30 U/L (12-78) 01/13/20 05:06 Alkaline Phosphatase 69 U/L (45-117) 01/13/20 05:06 Home Medications: Gabapentin 600 mg PO TID 01/26/19 Hydrocodone Bit/Acetaminophen [[place] 10-325 Tablet] 1 tab PO Q6HP PRN 01/26/19 Metformin HCl [Glucophage] 1,000 mg PO BID 01/26/19 Metoprolol Succinate [Toprol Xl*] 50 mg PO BID 01/26/19 methocarbamoL [Robaxin*] 500 mg PO Q8H 01/26/19 Buprenorphine 1 each TD EVERY 7TH DAY 01/12/20 Followup: Hollie Aldaan MD [ACTIVE - CAN ADMIT] - (Call to make an appointment. ) Time spent managing pt's care (in minutes): 20
== END 2020-01-13 15:16 | disposition home health service (06) | DRG 684 ==
LOC: ER 15:58 → ERHOLD 22:01 → 2ND 22:29
PROVIDERS: ADMIT Hospitalist; ATTEND Hospitalist
DX: N17.9 Acute kidney failure, unspecified (principal); E11.21 Type 2 diabetes mellitus with diabetic nephropathy; I10 Essential (primary) hypertension; J45.909 Unspecified asthma, uncomplicated; F41.9 Anxiety disorder, unspecified; E66.9 Obesity, unspecified; G47.33 Obstructive sleep apnea (adult) (pediatric); M19.90 Unspecified osteoarthritis, unspecified site; T39.395A Adverse effect of other nonsteroidal anti-inflammatory drugs [NSAID], initial encounter; N14.1 Nephropathy induced by other drugs, medicaments and biological substances; Z79.84 Long term (current) use of oral hypoglycemic drugs; Z79.891 Long term (current) use of opiate analgesic; Z86.711 Personal history of pulmonary embolism; Z87.891 Personal history of nicotine dependence; Z68.37 Body mass index [BMI] 37.0-37.9, adult; Z79.899 Other long term (current) drug therapy
CPT/HCPCS: 36415; 71045; 74176; 76770; 80048; 80053; 80076; 81001; 82550; 82570; 82947; 83036; 83735; 83880; 84156; 84484; 84550; 85025; 85610; 85730; 93005; 93306; 99285; J0696; J1815; J2270; J2405; J3010; J3360; J7030; J7120

== ENCOUNTER 2020-03-14 19:53 | Emergency (ER) | payer SELFPAY ==
--- OUTSIDE RECORDS SUMMARY | 2020-03-14 19:56 | XMS REPORT | Continuity of Care Document ---
:1980 Author Organization [facility] t Address [address] [place] [address] [place] [address] Care Team Providers Name Role Phone Asked, No Pcp Primary Care Physician Unavailable João Hale DO Attending Clinician Harleen CARMONA C Attending Clinician Esvin FARIAS S Attending Clinician Problems Condition Condition Condition [...] Date Quantity Comments Source Sex Assigned At [facility] ethodi Alcohol intake 2018-07-21 2018-07-21 Current drinker of [facility] [employer] 00:00:00 00:00:00 alcohol (finding) Alcohol Comment 2018-07-08 2018-07-08 ocassional [facility] ethodi 00:00:00 00:00:00 Smoking Status Start Date Stop Date Source Current some day smoker 2018-07-21 00:00:00 [place] [employer] Medications Ordered Filled Start Stop Current Ordering [...] mg day. tablet gabapentin 2017-08 Yes 300mg [id number] Take 300 Venegas (NEURONTIN) 09-20 [id number] mg by M ethodi 300 mg 08:56: [...] 2017-08 Yes Apply to Deepak [place] (SANTYL) 09-20 wound Methodi ointment 00:00: daily with st [...] Facility Department ID 2019-10-31 2019-10-31 Emergency Geoffrey NDMARCO [id number] 13:38:57 16:16:00 Vivian J Newell [id number] [place] [id number] [place] [id number] [id number] 2019-09-21 2019-09-21 Case Harleen FLOWERS [id number] 00:00:00 00:00:00 Management , Naya COHEN [id number] [place] [id number] 2019-05-09 2019-05-09 [facility] [id number] 17:45:02 22:25:00 Charley Hansen [id number] [place] [id number] [place] [id number] Results This patient has no known results.
--- OUTSIDE RECORDS SUMMARY | 2020-03-14 19:56 | XMS REPORT | Clinical Summary ---
:1980 Author Organization [facility] Address [address] [place] [address] Care Team Providers Name Role Phone Asked, [...] INFLUENZA VACCINE 03/25/2020 Results Not on fileafter 03/14/2019 Insurance Payer Benefit Plan / Subscriber ID Effective Dates Phone Addre ss Type Group WORKERS COMP ESIS xxxxxxxxxxxxxx 2018-Prese Workers Comp nt Guarantor Name Account Type Relation to Date of Phone Bill ing Patient Address [id number] Workers Comp Employer 08/25/1901 [address] [facility], ([place] [id number] Advance Directives For more information, please contact: [phone] Type Date Recorded Patient Cad Administrator Explanati on Advance Directives, Living 07/08/2018 3:25 PM 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
[2020-03-14] MEDS ORDERED: MORPHINE 4 MG/ML SYR ONE ×2 (20:30→22:51)
[2020-03-14] MEDS ORDERED: ONDANSETRON 4 MG/2 ML VIAL ONE (20:30)
--- NOTE | 2020-03-14 20:42 | RAD REPORT ---
EXAM DESCRIPTION: RAD - Chest Single View - 03/14/2020 8:37 pm CLINICAL HISTORY: CHEST PAIN Chest pain. COMPARISON: Chest Single View dated 01/12/2020; Chest Single View dated 01/26/2019; Chest Single View d ated 06/18/2018; Chest Single View dated 11/21/2017 FINDINGS: Portable technique limits examination quality. The lungs are grossly clear. The heart is normal in size. No displaced fractures. IMPRESSION: No acute intrathoracic process suspected.
[2020-03-14] MEDS ORDERED: NA CHLORIDE 0.9% 1,000 ML ONE (20:51)
[2020-03-14 20:52] LABS: Urine Blood NEGATIVE (NEG); Urine Glucose 2+ (NEG); Urine Protein 2+ (NEG); Urine Specific Gravity 1.025 (1.005-1.030)
[2020-03-14 20:52] LABS: Absolute Lymphocytes (CBC) 2.5 K/uL (0.7-4.9); Basophils % 0.6 % (0-1.3); Hematocrit 41.9 % (39.6-49.0); Lymphocytes % 27.5 % (15.3-44.8); MPV 9.2 fL (7.6-11.3); RBC Red Blood Cell Count 4.57 M/uL (4.33-5.43)
[2020-03-14 20:54] LABS: Protime INR 0.89
[2020-03-14 21:01] LABS: Barbiturates NEGATIVE (NEGATIVE); Benzodiazepines NEGATIVE (NEGATIVE); Cocaine NEGATIVE (NEGATIVE); METHAMPHETAM NEGATIVE (NEGATIVE); Methadone NEGATIVE (NEGATIVE); Opiates POSITIVE (NEGATIVE); Phencyclidine NEGATIVE (NEGATIVE); THC Cannibis NEGATIVE (NEGATIVE)
[2020-03-14 21:11] LABS: ALT/SGPT 37 U/L (12-78); AST/SGOT 21 U/L (15-37); Albumin 3.7 g/dL (3.4-5.0); Alkaline Phosphatase 73 U/L (45-117); BUN Blood Urea Nitrogen 21 mg/dL (7-18); Bicarbonate 23 mmol/L (21-32); Bilirubin Direct < 0.1 mg/dL (0-0.2); Bilirubin Total 0.3 mg/dL (0.2-1.0); Glucose Level 247 mg/dL (74-106); Magnesium 2.1 mg/dL (1.8-2.4); NT PRO-BNP 354 pg/mL (<125); Potassium 3.4 mmol/L (3.5-5.1); Protein, Total 7.3 g/dL (6.4-8.2); Sodium Level 134 mmol/L (136-145); Troponin (Emerg Dept Use Only) < 0.02 ng/mL (0.0-0.045)
[2020-03-14] MEDS ORDERED: POTASSIUM CL SA 10 MEQ TAB PO ONE (21:37)
--- NOTE | 2020-03-14 22:47 | ER ---
Nurse's Notes [facility] Name: Brett Kramer Age: 39 yrs Sex: Male : 1980 Arrival Date: 03/14/2020 Time: 19:55 Bed 8 Private MD: Diagnosis: Chest pain Presentation: 03/14 20:00 Chief complaint: Patient states: "I am having chest pain that started about an hour ago jd3 that is causing me to be shortness of breath.". Coronavirus screen: Proceed with normal triage. Ebola Screen: Patient negative for fever greater than or equal to 101.5 degrees Fahrenheit, and additional compatible Ebola Virus Disease symptoms. Initial Sepsis Screen: Does the patient meet any 2 criteria? No. Patient's initial sepsis screen is negative. Does the patient have a suspected source of infection? No. Patient's initial sepsis screen is negative. Risk Assessment: Do you want to hurt yourself or someone else? Patient reports no desire to harm self or others. Onset of symptoms was March 14, 2020. 20:00 Method Of Arrival: Ambulatory jd3 20:00 Acuity: CLAIRE 3 jd3 Historical: - Allergies: 20:03 Cipro; jd3 20:03 propoxyphene napsylate; jd3 - Home Meds: 20:03 Adderall XR 20 mg Oral cp24 1 cap twice a day [Active]; Ativan Oral [Active]; jd3 Glucophage Oral [Active]; metformin 1,000 mg Oral TG24 2 times per day [Active]; methocarbamol 500 mg Oral tab 2 tabs 4 times per day [Active]; gabapentin 300 mg Oral cap 1 cap 3 times per day [Active]; metoprolol tartrate 50 mg Oral tab 1 tab 2 times per day [Active]; [place] 10-325 mg Oral tab 1 tab every 4 hours [Active]; - PMHx: 20:03 Diabetes - NIDDM; Hypertension; PE; jd3 - PSHx: 20:03 Foot Surgery; jd3 - Immunization history:: Adult Immunizations up to date. - Social history:: Smoking status: Patient/guardian denies using tobacco, the patient reports quitting approximately 2 years ago. Screenin:56 Abuse screen: Denies threats or abuse. Denies injuries from another. Nutritional mg2 screening: No deficits noted. Tuberculosis screening: No symptoms or risk factors identified. Fall Risk IV access (20 points). Assessment: 20:20 General: Appears in no apparent distress. comfortable, Behavior is calm, cooperative. mg2 Pain: Complains of pain in chest Pain radiates to left shoulder Quality of pain is described as pressure, Pain began gradually, 1 hour ago. Is intermittent. 20:20 Neuro: Level of Consciousness is awake, alert, obeys commands, Oriented to person, mg2 place, time, situation. Cardiovascular: Capillary refill < 3 seconds Patient's skin is warm and dry. Respiratory: Airway is patent Respiratory effort is even, unlabored, Respiratory pattern is regular, symmetrical. GI: Reports nausea. : No signs and/or symptoms were reported regarding the genitourinary system. EENT: No deficits noted. Derm: Skin is intact, is healthy with good turgor, Skin is pink, warm \\T\\ dry. normal, patient was sweating. Musculoskeletal: Circulation, motion, and sensation intact. Capillary refill < 3 seconds. 21:30 Reassessment: Patient and/or family updated on plan of care and expected duration. Pain ea level reassessed. Patient is alert, oriented x 3, equal unlabored respirations, skin warm/dry/pink. 22:51 Reassessment: Patient states feeling better. mg2 Vital Signs: 20:03 BP 174 / 104; Pulse 94; Resp 19 S; Temp 97.3(O); Pulse Ox 97% on R/A; Weight 115.67 kg jd3 (R); Height 5 ft. 8 in. (172.72 cm) (R); Pain 10/10; 20:54 BP 151 / 89; Pulse 93; Resp 18; Pulse Ox 98% on R/A; Pain 9/10; mg2 21:30 BP 126 / 88; Pulse 88; Resp 18; Pulse Ox 98% on R/A; ea 22:14 BP 141 / 85; Pulse 91; Resp 18; Pulse Ox 98% on R/A; ea 20:03 Body Mass Index 38.77 (115.67 kg, 172.72 cm) jd3 ED Course: 19:55 Patient arrived in ED. ds1 20:01 Triage completed. jd3 20:03 Mendoza Mason MD is Attending Physician. pkl 20:03 Arm band placed on. jd3 20:16 Oliveira, Coty, RN is Primary Nurse. ea 20:20 No provider procedures requiring assistance completed. Inserted saline lock: 20 gauge mg2 in right antecubital area, using aseptic technique. Blood collected. Patient maintains SpO2 saturation greater than 95% on room air. 20:37 XRAY Chest (1 view) In Process Unspecified. EDMS 20:56 Patient has correct armband on for positive identification. quality assurance monitor final on. Pulse mg2 ox on. NIBP on. Door closed. 22:45 Koko Menjivar MD is Referral Physician. pkl 22:51 IV discontinued, intact, bleeding controlled, No redness/swelling at site. Pressure mg2 dressing applied. Administered Medications: Discontinued: NS 0.9% 1000 ml IV at 125 ml/hr continuous 20:36 Drug: Zofran (Ondansetron) 4 mg Route: IVP; Site: right antecubital; mg2 20:54 Follow up: Response: No adverse reaction; Marked relief of symptoms mg2 20:37 Not Given (Duplicate Order): morphine 4 mg IVP once; RASS on ADMIN: Combtv4, Very mg2 Agttd3, Agttd2, Rstlss1, AlertClm0, Drwsy-1, Lt Sdtn-2, Mod Sdtn-3, Dp Sdtn-4, UnArsble-5 20:37 Not Given (Duplicate Order): Zofran (Ondansetron) 4 mg IVP once; over 2 minutes mg2 20:37 Drug: NS 0.9% 1000 ml Route: IV; Rate: 125 ml/hr; Site: right antecubital; mg2 20:37 Drug: morphine 4 mg Route: IVP; Site: right antecubital; mg2 20:54 Follow up: Response: No adverse reaction; RASS: Alert and Calm (0) mg2 21:30 Drug: Potassium Chloride 20 mEq Route: PO; mg2 22:05 Follow up: Response: No adverse reaction mg2 22:50 Drug: morphine 4 mg Route: IVP; Site: right antecubital; mg2 22:50 Follow up: Response: No adverse reaction; Medication administered at discharge. mg2 Outcome: 22:46 Discharge ordered by . pkl 22:51 Discharged to home ambulatory. mg2 22:51 Condition: good 22:51 Discharge instructions given to patient, Instructed on discharge instructions, follow up and referral plans. Demonstrated understanding of instructions, follow-up care. 22:51 Patient left the ED. mg2 Signatures: Dispatcher [employer] EDMS Mendoza Mason MD MD pkl Sanford, Demi ds1 Coty Oliveira RN RN Emmanuel Resendiz RN RN jd3 Randy Lewis RN RN mg2
--- NOTE | 2020-03-14 22:47 | EDPHYS ---
Physician Documentation [facility] Name: Brett Kramer Age: 39 yrs Sex: Male : 1980 Arrival Date: 03/14/2020 Time: 19:55 Bed 8 Private MD: ED Physician Mendoza Mason HPI: 03/14 20:24 This 39 yrs old Male presents to ER via Ambulatory with complaints of Chest pkl Pain, Shortness Of Breath. 20:24 The patient or guardian reports chest pain that is located primarily in the substernal pkl area. Onset: just prior to arrival, 1 hour(s) ago. The pain radiates to the left arm. Associated signs and symptoms: Pertinent positives: shortness of breath. The chest pain is described as a pressure. The patient has experienced similar episodes in the past, a few times. Historical: - Allergies: 20:03 Cipro; jd3 20:03 propoxyphene napsylate; jd3 - Home Meds: 20:03 Adderall XR 20 mg Oral cp24 1 cap twice a day [Active]; Ativan Oral [Active]; jd3 Glucophage Oral [Active]; metformin 1,000 mg Oral TG24 2 times per day [Active]; methocarbamol 500 mg Oral tab 2 tabs 4 times per day [Active]; gabapentin 300 mg Oral cap 1 cap 3 times per day [Active]; metoprolol tartrate 50 mg Oral tab 1 tab 2 times per day [Active]; [place] 10-325 mg Oral tab 1 tab every 4 hours [Active]; - PMHx: 20:03 Diabetes - NIDDM; Hypertension; PE; jd3 - PSHx: 20:03 Foot Surgery; jd3 - Immunization history:: Adult Immunizations up to date. - Social history:: Smoking status: Patient/guardian denies using tobacco, the patient reports quitting approximately 2 years ago. ROS: 20:24 Eyes: Negative for injury, pain, redness, and discharge, ENT: Negative for injury, pkl pain, and discharge, Neck: Negative for injury, pain, and swelling. 20:24 Cardiovascular: Positive for chest pain. 20:24 Respiratory: Positive for shortness of breath. 20:24 Abdomen/GI: Negative for abdominal pain, nausea, vomiting, and diarrhea. 20:24 Back: Negative for acute changes. 20:24 : Negative for urinary symptoms. 20:24 MS/extremity: Negative for acute changes. 20:24 Skin: Negative for rash. 20:24 Neuro: Negative for altered mental status. Exam: 20:24 Head/Face: Normocephalic, atraumatic. Eyes: Pupils equal round and reactive to light, pkl extra-ocular motions intact. Lids and lashes normal. Conjunctiva and sclera are non-icteric and not injected. Cornea within normal limits. Periorbital areas with no swelling, redness, or edema. ENT: Nares patent. No nasal discharge, no septal abnormalities noted. Tympanic membranes are normal and external auditory canals are clear. Oropharynx with no redness, swelling, or masses, exudates, or evidence of obstruction, uvula midline. Mucous membranes moist. Neck: Trachea midline, no thyromegaly or masses palpated, and no cervical lymphadenopathy. Supple, full range of motion without nuchal rigidity, or vertebral point tenderness. No Meningismus. Chest/axilla: Normal chest wall appearance and motion. Nontender with no deformity. No lesions are appreciated. Cardiovascular: Regular rate and rhythm with a normal S1 and S2. No gallops, murmurs, or rubs. Normal PMI, no JVD. No pulse deficits. Respiratory: Lungs have equal breath sounds bilaterally, clear to auscultation and percussion. No rales, rhonchi or wheezes noted. No increased work of breathing, no retractions or nasal flaring. Abdomen/GI: Soft, non-tender, with normal bowel sounds. No distension or tympany. No guarding or rebound. No evidence of tenderness throughout. Back: No spinal tenderness. No costovertebral tenderness. Full range of motion. Skin: Warm, dry with normal turgor. Normal color with no rashes, no lesions, and no evidence of cellulitis. MS/ Extremity: Pulses equal, no cyanosis. Neurovascular intact. Full, normal range of motion. Neuro: Awake and alert, GCS 15, oriented to person, place, time, and situation. Cranial nerves II-XII grossly intact. Motor strength 5/5 in all extremities. Sensory grossly intact. Cerebellar exam normal. Normal gait. Vital Signs: 20:03 BP 174 / 104; Pulse 94; Resp 19 S; Temp 97.3(O); Pulse Ox 97% on R/A; Weight 115.67 kg jd3 (R); Height 5 ft. 8 in. (172.72 cm) (R); Pain 10/10; 20:54 BP 151 / 89; Pulse 93; Resp 18; Pulse Ox 98% on R/A; Pain 9/10; mg2 21:30 BP 126 / 88; Pulse 88; Resp 18; Pulse Ox 98% on R/A; ea 22:14 BP 141 / 85; Pulse 91; Resp 18; Pulse Ox 98% on R/A; ea 20:03 Body Mass Index 38.77 (115.67 kg, 172.72 cm) jd3 MDM: 20:04 Patient medically screened. pkl 22:41 Data reviewed: vital signs, nurses notes, lab test result(s), EKG, radiologic studies, pkl plain films. ED course: Discussed lab, EKG and X' rays results with patient. Advised to follow with Cardiology / PCP in 2 to 3 days. Patient understood instructions. 03/14 20:17 Order name: Basic Metabolic Panel; Complete Time: : ea 03/14 20:17 Order name: CBC with Diff; Complete Time: : ea 03/14 20:17 Order name: LFT's; Complete Time: : ea 03/14 20:17 Order name: Magnesium; Complete Time: : ea 03/14 20:17 Order name: NT PRO-BNP; Complete Time: : ea 03/14 20:17 Order name: PT-INR; Complete Time: : ea 03/14 20:17 Order name: Troponin (emerg Dept Use Only); Complete Time: : ea 03/14 20:19 Order name: UDS; Complete Time: 21:22 mg2 03/14 20:20 Order name: D-Dimer pkl 03/14 20:20 Order name: UDS pkl 03/14 20:37 Order name: Urine Dipstick--Ancillary (enter results); Complete Time: 21:22 mw2 03/14 20:44 Order name: D-Dimer; Complete Time: 21:22 EDMS 03/14 20:17 Order name: XRAY Chest (1 view); Complete Time: 21: ea 03/14 20:17 Order name: EKG; Complete Time: 20: ea 03/14 20:17 Order name: Cardiac monitoring; Complete Time: 20:19 03/14 20:17 Order name: EKG - Nurse/Tech; Complete Time: 20:19 03/14 20:17 Order name: IV Saline Lock; Complete Time: 20:20 03/14 20:17 Order name: Labs collected and sent; Complete Time: 20:20 03/14 20:17 Order name: O2 Per Protocol; Complete Time: 20: 03/14 20:17 Order name: O2 Sat Monitoring; Complete Time: 20: 03/14 21:28 Order name: Troponin (emerg Dept Use Only): draw at 2200; Complete Time: 22:39 03/14 21:31 Order name: EKG - Nurse/Tech: \T\ 2200; Complete Time: 22:05 mg2 Administered Medications: Discontinued: NS 0.9% 1000 ml IV at 125 ml/hr continuous 20:36 Drug: Zofran (Ondansetron) 4 mg Route: IVP; Site: right antecubital; mg2 20:54 Follow up: Response: No adverse reaction; Marked relief of symptoms mg2 20:37 Not Given (Duplicate Order): morphine 4 mg IVP once; RASS on ADMIN: Combtv4, Very mg2 Agttd3, Agttd2, Rstlss1, AlertClm0, Drwsy-1, Lt Sdtn-2, Mod Sdtn-3, Dp Sdtn-4, UnArsble-5 20:37 Not Given (Duplicate Order): Zofran (Ondansetron) 4 mg IVP once; over 2 minutes mg2 20:37 Drug: NS 0.9% 1000 ml Route: IV; Rate: 125 ml/hr; Site: right antecubital; mg2 20:37 Drug: morphine 4 mg Route: IVP; Site: right antecubital; mg2 20:54 Follow up: Response: No adverse reaction; RASS: Alert and Calm (0) mg2 21:30 Drug: Potassium Chloride 20 mEq Route: PO; mg2 22:05 Follow up: Response: No adverse reaction mg2 22:50 Drug: morphine 4 mg Route: IVP; Site: right antecubital; mg2 22:50 Follow up: Response: No adverse reaction; Medication administered at discharge. mg2 Disposition: 03/14/20 22:46 Discharged to Home. Impression: Chest pain. - Condition is Stable. - Medication Reconciliation Form, Thank You Letter, Antibiotic Education, Prescription Opioid Use form. - Follow up: Koko Menjivar MD; When: 2 - 3 days; Reason: Re-evaluation by your physician. Signatures: Dispatcher [employer] EDMS Mendoza Mason MD MD pkl Antunez, Elena, RN RN ea Davies, Jonathon, RN RN jRandy Nix RN RN mg2 Corrections: (The following items were deleted from the chart) 20:44 20:21 D-Dimer ordered. EDOK EDMS 20:44 20:21 Urine Drug Screen ordered. EDOK EDMS 22:51 22:46 03/14/2020 22:46 Discharged to Home. Impression: Chest pain. Condition is Stable. mg2 Forms are Medication Reconciliation Form, Thank You Letter, Antibiotic Education, Prescription Opioid Use. Follow up: Koko Menjivar; When: 2 - 3 days; Reason: Re-evaluation by your physician. pkl
--- NOTE | 2020-03-15 12:32 | EKG ---
Test Date: 2020-03-14 Test Time: 22:05:00 Pmo Business Analyst: MEASUREMENT RESULTS: Intervals: Rate: 89 MO: 182 QRSD: 108 QT: 416 QTc: 506 [place]: P: 40 MO: 182 QRS: 44 T: 132 INTERPRETIVE STATEMENTS: Normal sinus rhythm ST & T wave abnormality, consider lateral ischemia Prolonged QT Abnormal ECG Compared to ECG 03/14/2020 20:14:43 No significant changes Electronically Signed On 03-15-20 12:31:16 CDT by Koko Menjivar
--- NOTE | 2020-03-15 12:33 | EKG ---
Test Date: 2020-03-14 Test Time: 20:14:43 Hog Grader: MEASUREMENT RESULTS: Intervals: Rate: 93 CO: 176 QRSD: 106 QT: 410 QTc: 509 [place]: P: 41 CO: 176 QRS: 57 T: 114 INTERPRETIVE STATEMENTS: Normal sinus rhythm ST & T wave abnormality, consider lateral ischemia Prolonged QT Abnormal ECG Compared to ECG 01/12/2020 16:31:33 Possible ischemia now present Prolonged QT interval now present Sinus tachycardia no longer present ST (T wave) deviation still present Electronically Signed On 03-15-20 12:31:23 CDT by Koko Menjivar
[2020-03-15 13:25] VITALS: TEMP 97.3
[2020-03-15 13:26] VITALS: O2SAT 98
[2020-03-15 13:29] VITALS: BP 141/85
== END 2020-03-14 22:51 | disposition home or self-care (01) ==
LOC: ER 19:53
DX: R07.9 Chest pain, unspecified (principal); I10 Essential (primary) hypertension; E11.9 Type 2 diabetes mellitus without complications; I26.99 Other pulmonary embolism without acute cor pulmonale; Z88.1 Allergy status to other antibiotic agents; Z88.8 Allergy status to other drugs, medicaments and biological substances
CPT/HCPCS: 36415; 71045; 80048; 80076; 80307; 81003; 83735; 83880; 84484; 85025; 85379; 85610; 93005; 96374; 96375; 99285; J2405; J7030

== ENCOUNTER 2020-07-15 08:48 | Emergency (ER) | payer SELFPAY ==
--- OUTSIDE RECORDS SUMMARY | 2020-07-15 08:51 | XMS REPORT | Clinical Summary ---
:1980 Author Organization [facility] Address [address] [place] [address] Care Team Providers Name Role Phone Asked, [...] Open wound of right great toe 07/08/2018 Surgical History Surgery Date Site/Laterality Comments SHOULDER OPEN CAPSULAR SHIFT W/SCOPE INCISION AND DRAINAGE, FOOT 07/10/2018 Foot/Right Proc edure: INCISION AND DRAINAGE, RIGHT GREAT TOE OPEN FX; Surgeo n: Rubina Kenney DPM; Location: [facility]; Service: Podiatr y; Laterality: Righ t; Medical History Medical History Date Comments Hypertension Pulmonary embolism (HCC) Adhd Diabetes mellitus (HCC) Social History Tobacco Use Types Packs/Day Years Used Date Current Some Day Smoker Smokeless Tobacco: Never Used Alcohol Use Drinks/Week oz/Week Comments Yes ocassional Sex Assigned at Date Recorded Not on file Last Filed Vital Signs Not on file Plan of Treatment Health Maintenance Due Date Last Done Comments INFLUENZA VACCINE 03/25/2020 Results Not on fileafter 07/15/2019 Insurance Payer Benefit Plan / Subscriber ID Effective Dates Phone Addre ss Type Group WORKERS COMP ESIS [id number] 2018-Prese Workers Comp nt Guarantor Name Account Type Relation to Date of Phone Bill ing Patient Address [id number] Workers Comp Employer 08/25/1901 [phone], (Home) [facility] 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
--- OUTSIDE RECORDS SUMMARY | 2020-07-15 08:51 | XMS REPORT | Summary of Care ---
:1980 Author Organization [facility] - Health Address [address] [place] [address] Care Team Providers Name Role Phone Omari Thao Primary Care Provider Encounter Details Date Type Department Care Team Description 05/23/2020 Orders Only [facility] Doctor Unassigned, No [address] [facility] Name [address] [address] Allergies No Known Allergiesdocumented as of this encounter (statuses as of 05/23/2020) Medications Medication Sig Dispensed Refills Start Date [...] capsule mouth 2 (two) times daily. Additional Information Patient taking differently: 400 mg Oral TID, [...] as of this encounter (statuses as of 05/23/2020) Active Problems Problem Noted Date Orbital cellulitis, right 05/10/2019 Overview: S/P Orbitotomy with Mass Excision OD Obesity (BMI 30-39.9) 05/10/2019 documented as of this encounter (statuses as of 05/23/2020) Immunizations Name Administration Dates Next Due Td 06/12/2018 documented as of this encounter Social History Tobacco Use Types Packs/Day Years Used Date Former Smoker Cigarettes 1 05/10/1996 - 1 09/07/2017 Smokeless Tobacco: Former User Alcohol Use Drinks/Week oz/Week Comments Yes social Sex Assigned at Date Recorded Not on file documented as of this encounter Last Filed Vital Signs Not on filedocumented in this encounter Plan of Treatment Health Maintenance Due Date Last Done Comments Depression Screening 1991 DTaP,Tdap,and Td Vaccines (1 - 1998 06/12/2018 Tdap) INFLUENZA VACCINE (#1) 2020 PNEUMOCOCCAL 0-64 YEARS COMBINED Aged Out No longer eligible based on SERIES patient's age to complete this topic documented as of this encounter Procedures Procedure Name Priority Date/Time Associated Diagnosis Comme nts CONSENT/REFUSAL FOR Routine 05/23/2020 2:12 PM CDT DIAGNOSIS AND TREATMENT documented in this encounter Results Not on filedocumented in this encounter Additional Health Concerns Infection Onset Date Last Indicated Resolved Time MSSA Nasal Colonization 05/11/2019 05/11/2019 documented as of this encounter Insurance Payer Benefit Plan / Group Subscriber ID Effective Dates Phone Address Type [facility] [id number] 2018-Present [facility] documented as of this encounter
--- OUTSIDE RECORDS SUMMARY | 2020-07-15 08:51 | XMS REPORT | Continuity of Care Document ---
:1980 Author Organization [facility] t Address [address] [place] [address] [place] [address] Care Team Providers Name Role Phone Asked, No Pcp Primary Care Physician Unavailable Anuj ESCOBAR Attending Clinician Problems Condition Condition Condition Status Onset Resolution Last Treating Co mments Source Name Details Category Date Date Treatment Clinician Date Open wound Open wound Disease Active 2017-08 [place] right of right 14 Method i great toe great toe 00:00: st 00 Allergies, Adverse Reactions, Alerts Allergy Allergy Status Severity Reaction(s) Onset Inactive Treating Comm ents Source Name Type Date Date Clinician Propoxyp Propensi Active Itching 2017-08 [place] to -14 Methodi N-Acetam adverse 00:00: st inophen reaction 00 s to drug Social History Social Habit Start Date Stop Date Quantity Comments Source Sex Assigned At [facility] ethodist Tobacco use and 2018-07-21 2018-07-[address] [facility] ethodist exposure 00:00:00 00:00:00 Alcohol intake 2018-07-21 2018-07-21 Current drinker of Deepak [facility] 00:00:00 00:00:00 alcohol (finding) Alcohol Comment 2018-07-08 2018-07-[address] [facility] ethodist 00:00:00 00:00:00 Smoking Status Start Date Stop Date Source Current some day smoker 2018-07-21 00:00:00 [place] Medications Ordered Filled Start Stop Current Ordering [...] mg day. tablet gabapentin 2017-08 Yes 300mg [id number] Take 300 [place] (NEURONTIN) 09-20 [id number] mg by M ethodi 300 mg 08:56: [...] meals. collagenase 2017-08 Yes Apply to Deepak [place] (SANTYL) 1 wound Methodi ointment 00:00: daily with st 00 wet to dry dressing Procedures This patient has no known procedures. Plan of Care Planned Activity Planned Date Details Comments Source Future Scheduled 2020-03-25 INFLUENZA VACCINE Marga Clancy Test 00:00:00 [code = INFLUENZA VACCINE] Encounters Start End Encounter Admission Attending Care Care Encounter Source Date/Time Date/Time Type Type Clinicians Facility Department ID 2020-06-27 2020-06-27 Office [facility] [id number] 13:05:18 13:42:05 Visit Julius Hansen [id number] [facility] [id number] Professio [id number] [facility] 059 Building Results This patient has no known results.
--- OUTSIDE RECORDS SUMMARY | 2020-07-15 08:54 | XMS REPORT | Summary of Care ---
:1980 Author Organization [facility] - [facility] Address [address] [place] [address] Care Team Providers Name Role Phone Rupert Thao Primary Care Provider Reason for Referral Other (Routine) Status Reason Specialty Diagnoses / Referred By Referred To Procedures Contact Contact New Request Diagnoses Chest pain, unspecified type Florian Dyer MD Cai, Qiangjun, MD Procedures Discharge Follow-up: Specialty Provider JULIUS CORREA; 2 Weeks 301 [facility] [address] [place], [place] [address] [id number] [address] Phone: [place], [place] [phone] Fax: (Routine) Status Reason Specialty Diagnoses / Referred By Referred To Procedures Contact Contact New Request Diagnoses Chest pain, unspecified type Florian Dyer MD Burns, William E Procedures Discharge Follow-up: PCP RUPERT THAO; 1 Week 301 [facility] [address] [facility] 203 [id number] [place], [place] Phone: [phone] Phone: Fax: (Routine) Status Reason Specialty Diagnoses / Referred By Referred To Procedures Contact Contact New Request Cardiology Diagnoses Chest pain, unspecified type Meredith, Sendil Procedures ECHO ROUTINE W/DOPPLER COLOR MD Smita [address] [place] [address] Radiology Services (STAT) Status Reason Specialty Diagnoses / Referred By Referred To Procedures Contact Contact New Request Diagnostic Diagnoses Chest pain, unspecified type Luis Angel Arreola, Radiology Procedures XR CHEST [address] [place] [address] [place] [phone] Reason for Visit Reason Comments Chest Pain Auth/Cert Status Reason Specialty Diagnoses / Referred By Referred To Procedures Contact Contact Emergency [facility] [address] [place] [phone] Fax: Encounter Details Date Type Department Care Team Description 06/02/2020 - Emergency [facility] Surgery Elliot Arreola MD [address] [place] [address] [place] [address] [id number] Atypical chest pain 06/03/2020 Unit Florian Dyer MD [address] [place] [id number] [phone] [place] [address] [phone] Allergies No Known Allergiesdocumented as of this encounter (statuses as of 06/03/2020) Medications Medication Sig Dispensed Refills Start Date End Date Status HYDROcodone-acetamino Take 1 tablet by 90 tablet 0 06/12/2018 Active phen (NORCO) 10-325 mouth every 6 mg tablet (six) hours as needed for Pain (scale 4-6) or Pain (scale 7-10). gabapentin 300 mg Take 1 capsule by 30 capsule 1 06/13/2018 Active capsule mouth 2 (two) times daily. Additional Information Patient taking differently: 600 mg Oral TID, Reported on 05/23/2020 6:30 PM ibuprofen 600 mg Take 1 tablet by 30 tablet 1 06/13/2018 Active tablet mouth every 8 (eight) hours as needed for Pain (scale 4-6). methocarbamol Take 500 mg by 0 A ctive (ROBAXIN) 500 mg mouth 2 (two) tablet times daily. metFORMIN 1,000 mg Take 1,000 mg by 0 Active tablet mouth 2 (two) times daily with meals. insulin aspart U-100 inject 10 Units 3 mL 5 05/15/2019 Active (NOVOLOG FLEXPEN U-100 under the skin 3 INSULIN) 100 unit/mL (three) times (3 mL) daily before injectionIndications: meals. Type 2 diabetes mellitus without complication, without long-term current use of insulin fluticasone propionate Use 1 Tenmile in 0 Active (FLONASE ALLERGY each nostril RELIEF) 50 daily. mcg/actuation nasal spray diclofenac 50 mg EC Take 50 mg by 0 Active tablet mouth daily. atorvastatin 80 mg Take 1 tablet by 90 tablet 3 05/28/2020 Active tabletIndications: mouth daily. Unstable angina clopidogreL 75 mg Take 1 tablet by 30 tablet 11 05/28/2020 Active tabletIndications: mouth daily. Unstable angina fenofibrate micronized Take 1 capsule by 90 capsule 3 05/28/20 20 Active 67 mg mouth daily. capsuleIndications: Unstable angina isosorbide mononitrate Take 1 tablet by 30 tablet 11 05/28/2020 Active 120 mg 24 hr mouth daily. tabletIndications: Unstable angina lisinopriL 2.5 mg Take 1 tablet by 90 tablet 3 05/28/2020 Active tabletIndications: mouth daily. Unstable angina aspirin 81 mg chewable Take 1 tablet by 30 tablet 11 05/29/2020 Active tabletIndications: mouth daily. Unstable angina nitroglycerin 0.[address] 1 tablet 1 Bottle 3 05/28/202011/11 Active sublingual under the tongue 20 tabletIndications: every 5 (five) Unstable angina minutes as needed for Chest pain for up to 30 days. ranolazine 500 mg 12 Take 1 tablet by 60 tablet 0 06/03/2020 1 09/02/19 Active hr tabletIndications: mouth every 12 20 Chest pain, (twelve) hours unspecified type for 30 days. metoprolol succinate Take 1 tablet by 60 tablet 0 06/03/2020 1 09/02/19 Active XL 100 mg 24 hr mouth 2 (two) 20 tabletIndications: times daily for Chest pain, 30 days. unspecified type glipiZIDE 5 mg Take 1 tablet by 60 tablet 0 06/03/2020 0 Active tabletIndications: mouth 2 (two) 20 Type 2 diabetes times daily mellitus without before breakfast complication, without and dinner for 30 long-term current use days. of insulin Insulin Glargine inject 27 Units 15 mL 3 05/15/2019 Discontinued (LANTUS SOLOSTAR U-100 under the skin 20 INSULIN) 100 unit/mL daily. (3 mL) injectionIndications: Type 2 diabetes mellitus without complication, without long-term current use of insulin artificial Place 1 Drop in 15 mL 3 05/15/2019 06/02/20 Di scontinued tears,hypromellose, both eyes 4 20 0.5 % ophthalmic (four) times dropsIndications: daily. Orbital cellulitis, right dorzolamide-timolol Place 1 Drop in 10 mL 3 05/15/201905/14 Discontinued 22.3-6.8 mg/mL right eye 2 (two) 20 ophthalmic times daily. dropsIndications: Orbital cellulitis, right omeprazole 40 mg Take 1 capsule by 90 capsule 4 05/16/201905/14 Discontinued capsuleIndications: mouth daily. 20 Orbital cellulitis, right Insulin Glargine inject 27 Units 15 mL 3 05/15/2019 Discontinued (LANTUS SOLOSTAR U-100 under the skin 20 INSULIN) 100 unit/mL daily. 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 Unstable angina documented as of this encounter (statuses as of 06/03/2020) Active Problems Problem Noted Date Stable angina 06/02/2020 Coronary artery disease involving [place] coronary ema ry of [place] heart 06/02/2020 with angina pectoris Unstable angina 05/24/2020 Type 2 diabetes mellitus without complication, without long-term current 05/24/2020 use of insulin Family history of early CAD 05/24/2020 Essential hypertension 05/24/2020 Coronary artery calcification 05/24/2020 Atypical chest pain 05/23/2020 Orbital cellulitis, right 05/10/2019 Overview: S/P Orbitotomy with Mass Excision OD Obesity (BMI 30-39.9) 05/10/2019 documented as of this encounter (statuses as of 06/03/2020) Immunizations Name Administration Dates Next Due Influenza Virus Vaccine Quad .5 mL IM 6+ MO 05/28/2020 Pneumococcal Polysaccharide, PPSV23 (PNEUMOVAX) 05/28/2020 Td 06/12/2018 documented as of this encounter Social History Tobacco Use Types Packs/Day Years Used Date Former Smoker Cigarettes 1 05/10/1996 - 1 09/07/2017 Smokeless Tobacco: Former User Comments: Quit 2 years ago Alcohol Use Drinks/Week oz/Week Comments Yes social Education Answer Date Recorded What is the highest level of school you have High school gra duate 05/23/2020 completed or the highest degree you have received? Financial Resource Strain Answer Date Recorded How hard is it for you to pay for the very basics like Somew hat hard 05/23/2020 food, housing, medical care, and heating? Food Insecurity Answer Date Recorded Within the past 12 months, you worried that your food Someti mes true 05/23/2020 would run out before you got money to buy more. Within the past 12 months, the food you bought just Sometime s true 05/23/2020 didn't last and you didn't have money to get more. Transportation Needs Answer Date Recorded In the past 12 months, has lack of transportation kept you f rom No 05/23/2020 medical appointments or from getting medications? In the past 12 months, has lack of transportation kept you f rom No 05/23/2020 meetings, work, or getting things needed for daily living? Sex Assigned at Date Recorded Not on file COVID-19 Exposure Response Date Recorded In the last month, have you been in contact with No / Unsure 06/02/2020 11:23 AM CDT someone who was confirmed or suspected to have Coronavirus / COVID-19? documented as of this encounter Last Filed Vital Signs Vital Sign Reading Time Taken Comments Blood Pressure 118/73 06/03/2020 11:35 AM CDT Pulse 86 06/03/2020 11:35 AM CDT Temperature 36.5 C (97.7 F) 06/03/2020 11:35 AM CDT Respiratory Rate 20 06/03/2020 11:35 AM CDT Oxygen Saturation 95% 06/03/2020 11:35 AM CDT Inhaled Oxygen - - Concentration Weight 91.5 kg (201 lb 12.8 06/03/2020 5:00 remove 2 e xtra oz) AM CDT pillows from bed Height 175.3 cm (5' 9") 06/02/2020 4:13 PM CDT Body Mass Index 29.8 06/02/2020 4:13 PM CDT documented in this encounter Discharge Instructions InstructionsScarlet Lo RN - 06/03/2020 Patient Discharge Instructions Discharge date: 06/03/2020 Procedure(s): Discharge Orders Discharge Follow-up: PCP RUPERT THAO; 1 Week To PCP: RUPERT THAO [[id number]] Patient's Preferred Location: Other - Specify Comments Discharge Disposition: HOME, ([facility]) When (Patients with risk for unplanned readmission score over 16 or those noted as Hospital Dependent should follow up within 7 days with PCP or primary DX specialist): 1 Week Cardiac (2 g Na, Low Fat/Chol) 1800 Calorie Diabetic Consistent Carbs Diet - includes HS Snack; Texture: Regular Texture Regular Diabetic: NIDDM Discharge Condition - Discharge Condition: GOOD Discharge Activity Discharge Activity: As Tolerated Discharge Follow-up: Specialty Provider JULIUS CORREA; 2 Weeks To Provider: JULIUS CORREA [[id number]] Patient's Preferred Location: [place] Discharge Disposition: HOME, ([facility]) When (Patients with risk for unplanned readmission score over 16 or those noted as Hospital Dependent should follow up within 7 days with PCP or primary DX specialist): 2 Weeks VTE Propylaxis- Was ordered during hospitalization Follow instructions as indicated below: 1. The medication that was used will be acting in your system for the next 24 hours, so you might feel a little drowsy, with impaired judgment and or motor function. This feeling should go wear off. Because the medication is still in your system for the next 24 hours you SHOULD NOT: Drive a car, operate machinery or power tool. Drink any alcohol beverages (including beer or wine). Make any important decisions or sign any legal documents. 2. You should rest the remainder of the day and not engage in any physical activity. Move slowly today. After lying down, sit on the edge of the bed for a moment before standing. YOU ARE RESPONSIBLEFOR HAVING SOMEONE AT HOME WITH YOU DURING THE AFTERNOON AND NIGHT IMMEDIATELY FOLLOWING YOUR SURGERY. Patient should cough and deep breathe every 2-4 hours while awake to avoid respiratory complications. 4. Lifting: {IP DISCHARGE INSTRUCTIONS LIFTIN::"No medical restrictions"} 5. Weight: In general, sudden weight gains or losses should be reported to your provider. Cardiac patients should weigh daily and notify their provider for a weight gain of 3 pounds per day or 5 pounds per week. 6. Tobacco Avoidance: Follow recommendations below 7. Because the medications used could procedure some residual nausea and vomiting after you go home,you should eat lightly today, starting with clear liquids (broth, soft drinks, apple juice, jello) and toast or crackers, progressing to bland solid foods and then to your normal diet as tolerated, unle ss otherwise stated by your surgeon. If you get sick, wait a couple of hours and then begin to eat. After 24 hours the nausea should be gone. 8. You may experience some pain and your physician will advise you on what to take for discomfort. This should be taken as directed. If the pain is not relieved, contact your physician. You may alsohave a sore throat from the airway that was in place. You may uses lozenges, throat spray (such as C hloraseptic), or warm salt water gargles for symptomatic relief. 9. If you feel warm, take your temperature. If it is 101 degrees or above call your physician. 10. If you are unable to urinate within five hours after your procedure, call your physician. 11. The type of surgery performed will determine how much bleeding (if any) to expect. Normally, some spotting might occur. If your dressing pad becomes saturated, notify your physician. Elevate surgical site, if applicable, to reduced swelling and pain. 12. Wound/dressing care: Tips on preventing a surgical site infection.. Dont smoke. It is best to quit at least 30 days before surgery, but quitting after surgery is also helpful. If you are diabetic, keep your blood sugar well controlled. WASH YOUR HANDS. Keep your wound clean and remember to wash your hands before and after contact with the area. All health care workers should also wash their hands or use an alcohol based hand rub prior to examining you. If antibiotics are prescribed, take them as directed. Finish the entire course of antibiotics. Call your doctor if you have signs of infection: ? Increased tenderness at the surgical site ? Red streaks or increased redness of the area ? Bad-smelling discharge from the incision ? Fever of 101F or higher ? General tired feeling that doesnt improve 13. Other discharge instructions: {DC IP DISCHARGE INSTRUCTIONS OTHER:34019} 14. Special Instructions: Take Home Medications These are medications ordered for you by your healthcare provider. Do not take any other medications or supplements unless advised by your healthcare provider. Current Discharge Medication List START taking these medications Details glipiZIDE 5 mg tablet Take 1 tablet by mouth 2 (two) times daily before breakfast and dinner for 30 days. Qty: 60 tablet, Refills: 0 Associated Diagnoses: Type 2 diabetes mellitus without complication, without long-term current use of insulin metoprolol succinate XL 100 mg 24 hr tablet Take 1 tablet by mouth 2 (two) times daily for 30 days. Qty: 60 tablet, Refills: 0 Associated Diagnoses: Chest pain, unspecified type ranolazine 500 mg 12 hr tablet Take 1 tablet by mouth every 12 (twelve) hours for 30 days. Qty: 60 tablet, Refills: 0 Associated Diagnoses: Chest pain, unspecified type CONTINUE these medications which have NOT CHANGED Details aspirin 81 mg chewable tablet Take 1 tablet by mouth daily. Qty: 30 tablet, Refills: 11 Associated Diagnoses: Unstable angina atorvastatin 80 mg tablet Take 1 tablet by mouth daily. Qty: 90 tablet, Refills: 3 Associated Diagnoses: Unstable angina clopidogreL 75 mg tablet Take 1 tablet by mouth daily. Qty: 30 tablet, Refills: 11 Associated Diagnoses: Unstable angina fenofibrate micronized 67 mg capsule Take 1 capsule by mouth daily. Qty: 90 capsule, Refills: 3 Associated Diagnoses: Unstable angina isosorbide mononitrate 120 mg 24 hr tablet Take 1 tablet by mouth daily. Qty: 30 tablet, Refills: 11 Associated Diagnoses: Unstable angina lisinopriL 2.5 mg tablet Take 1 tablet by mouth daily. Qty: 90 tablet, Refills: 3 Associated Diagnoses: Unstable angina nitroglycerin 0.[address] 1 tablet under the tongue every 5 (five) minutes as needed for Chest pain for up to 30 days. Qty: 1 Bottle, Refills: 3 Associated Diagnoses: Unstable angina diclofenac 50 mg EC tablet Take 50 mg by mouth daily. fluticasone propionate (FLONASE ALLERGY RELIEF) 50 mcg/actuation nasal spray Use 1 Tenmile in each nostril daily. insulin aspart U-100 (NOVOLOG FLEXPEN U-100 INSULIN) 100 unit/mL (3 mL) injection inject 10 Units under the skin 3 (three) times daily before meals. Qty: 3 mL, Refills: 5 Associated Diagnoses: Type 2 diabetes mellitus without complication, without long-term current use of insulin metFORMIN 1,000 mg tablet Take 1,000 mg by mouth 2 (two) times daily with meals. methocarbamol (ROBAXIN) 500 mg tablet Take 500 mg by mouth 2 (two) times daily. gabapentin 300 mg capsule Take 1 capsule by mouth 2 (two) times daily. Qty: 30 capsule, Refills: 1 ibuprofen 600 mg tablet Take 1 tablet by mouth every 8 (eight) hours as needed for Pain (scale 4-6). Qty: 30 tablet, Refills: 1 HYDROcodone-acetaminophen (NORCO) 10-325 mg tablet Take 1 tablet by mouth every 6 (six) hours as needed for Pain (scale 4-6) or Pain (scale 7-10). Qty: 90 tablet, Refills: 0 STOP taking these medications metoprolol tartrate 100 mg tablet Comments: Reason for Stopping: Insulin Glargine (LANTUS SOLOSTAR U-100 INSULIN) 100 unit/mL (3 mL) injection Comments: Reason for Stopping: Insulin Glargine (LANTUS SOLOSTAR U-100 INSULIN) 100 unit/mL (3 mL) injection Comments: Reason for Stopping: Follow-up appointments: Your follow up appointment with your surgeon has been made. Appointment Date: , Appointment Time . For questions regarding follow-up instructions call the Healthcare Hotline at or If you experience any of the following symptoms , please follow up with . For worsening symptoms/changing condition/problems or questions: Non-emergency/urgent: Call the Healthcare Hotline at or or Emergency: Go to the closest emergency room or call [phone] Translated by Date Time If you receive the patient satisfaction survey by mail please complete and return and let us know how we are doing. TOBACCO AVOIDANCE Exposure to tobacco either from smoking or from second hand (environmental) smoke or smokeless tobacco (snuff) is damaging to your health. This information is to encourage everyone to avoid tobacco exposure. It is recommended that you: ? If you smoke or use smokeless tobacco, we encourage you to quit. ? If you have already quit smoking, continue your good work! ? If you do not smoke or use smokeless tobacco, do not start. ? Avoid secondhand smoke. Additional Resources You may want to contact these organizations for further information on smoking and how to quit. [place] Lung Association, http://www.lungusa.org/stop-smoking/ [place] Cancer Society, http://www.cancer.org/Healthy/StayAwayfromTobacco/index [place] Heart Association, http://www.heart.org/HEARTORG/GettingHealthy/QuitSmoking/Quit-Smoking_[facility] _001085_SubHomePage.jsp AttachmentsThe following attachments cannot be sent through Care Everywhere. Angina, Discharge Instructions for (Lithuanian)Chest Pain, Uncertain Cause (Lithuanian)Chest Pain, Noncardiac (Lithuanian)Carotid Artery Stenting, Discharge Instructions for (Lithuanian)Carotid Artery Stenting, Having (Lithuanian)Ranolazine tablets, extended release (Lithuanian)Metoprolol tablets (Lithuanian)Glipizide tablets (Lithuanian)documented in this encounter H&P Notes Charley Mendez, JENNIFER - 06/02/2020 5:09 PM CDT [facility] Hospitalist Admission H&P Date of Service: 06/02/2020 CHIEF COMPLAINT: Chest pain HISTORY OF PRESENT ILLNESS Brett Kramer is a 39 year old male with history of DM type II, HTN, chronic pain syndrome and on pain contract, who presents with gradual chest pain that started last night. Patient stated chest pain with pain radiating to left arm and numbness that worsened today with some shortness of breath. Patient s/p stents placement last Friday. Patient took nitro x 2 with no relief. Patient denies leg or calf pain, fever, chill, abdominal pain, or dizziness. PAST MEDICAL HISTORY Past Medical History: Diagnosis Date Complex regional pain syndrome type II of right lower limb DM (diabetes mellitus) History of pulmonary embolus (PE) 2013 HTN (hypertension) PAST SURGICAL HISTORY Past Surgical History: Procedure Laterality Date ARTHROSCOPIC SHOULDER ROTATOR CUFF REPAIR 10/2017 MASS EXCISION Right 05/14/2019 Surgeon: Diaz Obrien MD; [facility] ORBITOTOMY Right 05/14/2019 Surgeon: Diaz Obrien MD; [facility] ALLERGIES No Known Allergies MEDICATIONS Current home medication list reviewed: Current Discharge Medication List STOP taking these medications aspirin 81 mg chewable tablet Comments: Reason for Stopping: atorvastatin 80 mg tablet Comments: Reason for Stopping: clopidogreL 75 mg tablet Comments: Reason for Stopping: fenofibrate micronized 67 mg capsule Comments: Reason for Stopping: isosorbide mononitrate 120 mg 24 hr tablet Comments: Reason for Stopping: lisinopriL 2.5 mg tablet Comments: Reason for Stopping: metoprolol tartrate 100 mg tablet Comments: Reason for Stopping: nitroglycerin 0.4 mg sublingual tablet Comments: Reason for Stopping: diclofenac 50 mg EC tablet Comments: Reason for Stopping: fluticasone propionate (FLONASE ALLERGY RELIEF) 50 mcg/actuation nasal spray Comments: Reason for Stopping: insulin aspart U-100 (NOVOLOG FLEXPEN U-100 INSULIN) 100 unit/mL (3 mL) injection Comments: Reason for Stopping: Insulin Glargine (LANTUS SOLOSTAR U-100 INSULIN) 100 unit/mL (3 mL) injection Comments: Reason for Stopping: Insulin Glargine (LANTUS SOLOSTAR U-100 INSULIN) 100 unit/mL (3 mL) injection Comments: Reason for Stopping: metFORMIN 1,000 mg tablet Comments: Reason for Stopping: methocarbamol (ROBAXIN) 500 mg tablet Comments: Reason for Stopping: gabapentin 300 mg capsule Comments: Reason for Stopping: ibuprofen 600 mg tablet Comments: Reason for Stopping: HYDROcodone-acetaminophen (NORCO) 10-325 mg tablet Comments: Reason for Stopping: FAMILY HISTORY Family History Problem Relation Age of Onset Stroke Mother 67 Diabetes Mother Hypertension Mother Diabetes Father Coronary Heart Disease Father before the age of 50 Diabetes Brother SOCIAL HISTORY Social History Socioeconomic History Marital status: Single Spouse name: Not on file Number of children: 0 Years of education: Not on file Highest education level: High school graduate Occupational History Occupation: Workers [employer] Social Needs Financial resource strain: Somewhat hard Food insecurity Worry: Sometimes true Inability: Sometimes true Transportation needs Medical: No Non-medical: No Tobacco Use Smoking status: Former Smoker Packs/day: 1.00 Types: Cigarettes Start date: 05/10/1996 Quit date: 07/08/2018 Years since quittin.9 Smokeless tobacco: Former User Tobacco comment: Quit 2 years ago Substance and Sexual Activity Alcohol use: Yes Comment: social Drug use: Not Currently Types: Marijuana Sexual activity: Not on file Lifestyle Physical activity Days per week: Not on file Minutes per session: Not on file Stress: Not on file Relationships Social connections Talks on phone: Not on file Gets together: Not on file Attends amish service: Not on file Active member of club or organization: Not on file Attends meetings of clubs or organizations: Not on file Relationship status: Not on file Intimate partner violence Fear of current or ex partner: Not on file Emotionally abused: Not on file Physically abused: Not on file Forced sexual activity: Not on file Other Topics Concern Not on file Social History Narrative Not on file REVIEW OF SYSTEMS Constitutional: negative fevers/chills, weight changes Eyes: negative acute blurry vision, eye discharge Ears, Nose, Mouth, Throat: negative dysphagia, runny nose, sore throat, tinnitus Cardiovascular: Positive for chest pain Respiratory: negative sob, cough Gastrointestinal: negative abd pain, nausea, vomiting Genitourinary: Negative dysuria, hematuria Musculoskeletal: negative calf pain, swelling Integumentray: negative rash, itching Neurological: negative syncope, focal weakness Psychiatric: negative hallucinations PHYSICAL EXAMINATION BP 109/67 | Pulse 81 | Temp 36.4 C (97.5 F) (Tympanic) | Resp 20 | Ht 1.753 m (5' 9") | Wt 95 kg (209 lb 6.4 oz) | SpO2 97% | BMI 30.92 kg/m General: No acute distress HEENT: Normal oral mucosa, anicteric sclerae, NCAT Cardiovascular: RRR, strong symmetric radial pulses Lungs: CTAB Abdomen: Soft, NTND Musculoskeletal: Normal ROM, normal muscle mass Genitourinary: Normal Skin: No rash, lesions Neuro: AAOx3, no focal deficits Psych: Normal affect LABS - reviewed pertinent labs as below: CBC BMP PT/INR WBC (10*3/L) Date Value 06/02/2020 9.97 NA (mmol/L) Date Value 06/02/2020 135 No results found for: PT RBC (10*6/L) Date Value 06/02/2020 4.90 K (mmol/L) Date Value 06/02/2020 4.4 INR (no units) Date Value 06/02/2020 1.0 PLT (10*3/L) Date Value 06/02/2020 319 CALCIUM (mg/dL) Date Value 06/02/2020 9.8 HGB (g/dL) Date Value 06/02/2020 15.4 CL (mmol/L) Date Value 06/02/2020 99 aPTT HCT (%) Date Value 06/02/2020 43.7 BUN (mg/dL) Date Value 06/02/2020 22 APTT Patient (Seconds) Date Value 06/02/2020 30 CREATININE (mg/dL) Date Value 06/02/2020 0.90 IMAGING - reviewed, pertinent results as below: Hospital Encounter on 06/02/20 XR CHEST 1 VW Narrative CHEST PORTABLE ONE VIEW HISTORY:CP TECHNIQUE: Frontal, portable projection of the chest is obtained. COMPARISON: 05/23/2020 FINDINGS: The lungs are clear. The heart size and mediastinal silhouette are normal. No pleural effusion or pneumothorax is seen. CONCLUSIONS: No acute cardiopulmonary disease. ASSESSMENT/PLAN Brett Kramer 39 year-old male admitted for: #Chest pain likely unstable angina s/p stent placement Friday Trend troponin q 6 hr EKG NS 05/24/2020 LF 60-65%diastikic dysfunction Echo ordered L HC findings severe M and D RCA disease, severe P LAD disease We'll order pain control, oxygen, and nitroglycerin when necessary Consult Cardiology Dr. Correa, Will appreciate their further input and recommendations Patient medication changed to metoprolol XL 100 mfg bid to help with angina Start Norvasc 5 mg daily ASA 81 mg daily #CAD (s/p PCI of mRCA, dRCA and pLAD Continue aspirin 81 mg daily Plavix 75 mg daily Imdur 120 mg daily #HTN Lisinopril 2.5 mg daily #DM2 A1c 9.7 Hold metformin 1000 bid SSI, accuchecks ac &hs #HLD Severe hypertriglyceridemia (failed statin treatment) Fenofibrate 67 mg daily Atorvastatin 80 mg QHS #Complex regional pain syndrome patient with a pain contract Robaxin 500 mg bid Gabapentin 600 tid Prophylaxis: DVT- ambulatory Stress Ulcer: no indication for prophylaxis Advanced Care Planning (Z71.89) Above assessment and plan discussed at length with patient, patient expressed full understanding. Questions and concerned addressed, I spent 18 minutes discussing the advance care plan. Surrogate decision maker: self Level of care expected after discharge: home self Code status: full code Smoking Cessation: (Z71.6) Tobacco user?:Former smoker Disposition: Home with negative troponins Observation [place] WELD ENGINEER was viewed during this stay JENNIFER Lobo Associated attestation - Faith Pichardo MD - 06/03/2020 12:18 AM CDTPatient seen and examined with TELEPHONE INFORMATION SUPERVISOR. See TELEPHONE INFORMATION SUPERVISOR note for HPI, PMHx, home medications, social history, physical exam, labs/testing. Recurrent angina Placed in observation Recent stent Cardiology consult Dr. Meredith Trend trops Telemetry D/c tomorrow if ok with cardiology Start low dose norvasc and ranexa for better chest pain control Can afford ranexa with goodrx Continue other cardiac meds as per note Uncontrolled type 2 DM with hyperglycmeia, started glipizide, recommended patient better PCP f/u Monitor bp as it can be low normal and need to be careful with bp meds adjsutment Faith Pichardo MD documented in this encounter Consult Notes Nadege Meredith MD - 06/02/2020 3:58 PM CDTAssociated Order(s): CONSULT CARDIOLOGY [facility] Cardiology Consult Note Patient: Brett Kramer Date of : 1980 Date of service: 06/02/2020 Primary Care Physician: Rupert Thao CHIEF COMPLAINT: Chief Complaint Patient presents with Chest Pain HISTORY OF PRESENT ILLNESS: Brett Kramer is a 39 year old male presented to the ER for evaluation for chest pain. History from patient. Patient seen and examined in the room. Pertinent cardiac related history reviewed from chart Patient reports has been having chest pain, felt like tightness in her retrosternal area, lasted forfew hours, started last night, took two nitro. Today morning, started having chest pain again, hence came to ER. BOWEN NYHA Class II Recently DC from [facility] after PCI Reports compliant with meds No PND or orthopnea. No pedal edema. No exertional palpitations or palpitations at rest. No syncopalattacks. PMH of DM, HTN, hx of PE (2014on Xarelto for 1 year)and complex regional pain syndrome Dyslipidemia, CAD (s/p PCI to mRCA, dRCA, and pLAD). Previous Cardiac Studies: IMAGING - I personally reviewed, pertinent results as below: ECG 06/02/2020 SR with narrow QRS complex. Nonspecific ST changes. TTE (05/24/20) A two-dimensional transthoracic echocardiogram with M-mode and Doppler was performed. The study was technically limited. There is no comparison study available. Ejection Fraction = 60-65%. The left ventricular wall motion is normal. Diastolic dysfunction. The left atrium is mildly dilated. Estimated RA pressure is 5-10 mmHg. Insufficient Tricuspid regurgitation jet to estimate RVSP Cath 05/26/2020 Impression: 1. Severe m and d RCA disease. Successful PCI with 4.0 x 16 mm Synergy Rx YUE x 2 2. Severe pLAD disease. Successful PCI with 3.0 x 32 mm Synergy Rx YUE PAST MEDICAL HISTORY Past Medical History: Diagnosis Date Complex regional pain syndrome type II of right lower limb DM (diabetes mellitus) History of pulmonary embolus (PE) 2013 HTN (hypertension) Past Surgical History: Procedure Laterality Date ARTHROSCOPIC SHOULDER ROTATOR CUFF REPAIR 10/2017 MASS EXCISION Right 05/14/2019 Surgeon: Diaz Obrien MD; [facility] ORBITOTOMY Right 05/14/2019 Surgeon: Diaz Obrien MD; [facility] Family History Problem Relation Age of Onset Stroke Mother 67 Diabetes Mother Hypertension Mother Diabetes Father Coronary Heart Disease Father before the age of 50 Diabetes Brother SOCIAL HISTORY Social History Socioeconomic History Marital status: Single Spouse name: Not on file Number of children: 0 Years of education: Not on file Highest education level: High school graduate Occupational History Occupation: Workers [employer] Social Needs Financial resource strain: Somewhat hard Food insecurity Worry: Sometimes true Inability: Sometimes true Transportation needs Medical: No Non-medical: No Tobacco Use Smoking status: Former Smoker Packs/day: 1.00 Types: Cigarettes Start date: 05/10/1996 Quit date: 07/08/2018 Years since quittin.9 Smokeless tobacco: Former User Tobacco comment: Quit 2 years ago Substance and Sexual Activity Alcohol use: Yes Comment: social Drug use: Not Currently Types: Marijuana Sexual activity: Not on file Lifestyle Physical activity Days per week: Not on file Minutes per session: Not on file Stress: Not on file Relationships Social connections Talks on phone: Not on file Gets together: Not on file Attends amish service: Not on file Active member of club or organization: Not on file Attends meetings of clubs or organizations: Not on file Relationship status: Not on file Intimate partner violence Fear of current or ex partner: Not on file Emotionally abused: Not on file Physically abused: Not on file Forced sexual activity: Not on file Other Topics Concern Not on file Social History Narrative Not on file ALLERGIES No Known Allergies MEDICATIONS Current Discharge Medication List STOP taking these medications aspirin 81 mg chewable tablet Comments: Reason for Stopping: atorvastatin 80 mg tablet Comments: Reason for Stopping: clopidogreL 75 mg tablet Comments: Reason for Stopping: fenofibrate micronized 67 mg capsule Comments: Reason for Stopping: isosorbide mononitrate 120 mg 24 hr tablet Comments: Reason for Stopping: lisinopriL 2.5 mg tablet Comments: Reason for Stopping: metoprolol tartrate 100 mg tablet Comments: Reason for Stopping: nitroglycerin 0.4 mg sublingual tablet Comments: Reason for Stopping: diclofenac 50 mg EC tablet Comments: Reason for Stopping: fluticasone propionate (FLONASE ALLERGY RELIEF) 50 mcg/actuation nasal spray Comments: Reason for Stopping: insulin aspart U-100 (NOVOLOG FLEXPEN U-100 INSULIN) 100 unit/mL (3 mL) injection Comments: Reason for Stopping: Insulin Glargine (LANTUS SOLOSTAR U-100 INSULIN) 100 unit/mL (3 mL) injection Comments: Reason for Stopping: Insulin Glargine (LANTUS SOLOSTAR U-100 INSULIN) 100 unit/mL (3 mL) injection Comments: Reason for Stopping: metFORMIN 1,000 mg tablet Comments: Reason for Stopping: methocarbamol (ROBAXIN) 500 mg tablet Comments: Reason for Stopping: gabapentin 300 mg capsule Comments: Reason for Stopping: ibuprofen 600 mg tablet Comments: Reason for Stopping: HYDROcodone-acetaminophen (NORCO) 10-325 mg tablet Comments: Reason for Stopping: Current Facility-Administered Medications: acetaminophen (TYLENOL) tablet 650 mg, 650 mg, Oral, Q6HPRN, Charley Mendez FNP [START ON 06/03/2020] amLODIPine (NORVASC) tablet 5 mg, 5 mg, Oral, DAILY, Charley Mendez FNP [START ON 06/03/2020] aspirin chewable tablet 81 mg, 81 mg, Oral, DAILY, Charley Mendez FNP [START ON 06/03/2020] atorvastatin (LIPITOR) tablet 80 mg, 80 mg, Oral, DAILY, Charley Mendez FNP [START ON 06/03/2020] clopidogreL (PLAVIX) tablet 75 mg, 75 mg, Oral, DAILY, Charley Mendez FNP [START ON 06/03/2020] fenofibrate micronized (LOFIBRA) capsule 67 mg, 67 mg, Oral, DAILY, Charley Mendez FNP [START ON 06/03/2020] fluticasone propionate 50 mcg/actuation nasal spray 1 Tenmile, 1 Tenmile, Nasal, DAILY, Charley Mendez FNP gabapentin (NEURONTIN) capsule 600 mg, 600 mg, Oral, TID, Charley Mendez FNP HYDROcodone-acetaminophen (NORCO) 10-325 mg tablet 1 tablet, 1 tablet, Oral, Q6HPRN, Charley Mendez FNP [START ON 06/03/2020] isosorbide mononitrate (IMDUR) 24 hr tablet 120 mg, 120 mg, Oral, DAILY, Charley Mendez FNP [START ON 06/03/2020] lisinopriL (PRINIVIL,ZESTRIL) tablet 2.5 mg, 2.5 mg, Oral, DAILY, Charley Mendez FNP methocarbamoL (ROBAXIN) tablet 500 mg, 500 mg, Oral, BID, Charley Mendez FNP metoprolol succinate XL (TOPROL XL) tablet 100 mg, 100 mg, Oral, BID, Charley Mendez FNP morpHINE injection 2 mg, 2 mg, Slow IV Push, Q6HPRN, Charley Mendez FNP, 2 mg at 06/02/201745 nitroglycerin (NITROSTAT) sublingual tablet 0.4 mg, 0.4 mg, Sublingual, Q5MIN PRN, Charley Mendez FNP ondansetron (ZOFRAN (PF)) injection 4 mg, 4 mg, Slow IV Push, Q6HPRN, Charley Mendez FNP,4 mg at 06/02/20 1745 [START ON 06/03/2020] pantoprazole (PROTONIX) EC tablet 40 mg, 40 mg, Oral, DAILY, Charley Mendez FNP Sliding Scale Insulin - Aspart (NOVOLOG) + Fsbg Testing, , Subcutaneous, AC+HS, Charley Mendez FNP sodium chloride (NS) injection 5 mL, 5 mL, Intravenous, PRN, Luis Angel Arreola MD REVIEW OF SYSTEMS: Comprehensive 10-system review was conducted and were negative except for what's noted in the HPI. The following systems were reviewed: Constitutional, cardiovascular, respiratory, gastrointestinal, genitourinary, musculoskeletal, neurologic, psychiatric, endocrinological, and hematological. PHYSICAL EXAMINATION: Vitals: 06/02/20 1300 06/02/20 1400 06/02/20 1517 06/02/20 1613 BP: 107/70 116/83 109/67 Pulse: 78 78 81 Resp: 17 15 20 Temp: 36.4 C (97.5 F) TempSrc: Tympanic SpO2: 96% 97% 97% Weight: 95 kg (209 lb 6.4 oz) Height: 1.753 m (5' 9") General: no apparent distress HEENT: normocephalic atraumatic Neck: supple, no lymphadenopathy, no bruits, no JVD Lungs: clear to auscultation bilaterally. No wheezes or rhonchi. No increased work of breathing. Cardio: Regular rate and rhythm, S1&S2 normal, no murmurs, rubs or gallops Abdomen: soft; non-tender; non-distended; normoactive bowel sounds. : not examined Rectal: not examined Extremities: no clubbing, cyanosis, or edema. Skin: no rashes, no visible lesions. Neuro: no gross focal deficits LABS - Reviewed pertinent labs as below: CBC BMP PT/INR WBC (10*3/L) Date Value 06/02/2020 9.97 NA (mmol/L) Date Value 06/02/2020 135 No results found for: PT PLT (10*3/L) Date Value 06/02/2020 319 K (mmol/L) Date Value 06/02/2020 4.4 INR (no units) Date Value 06/02/2020 1.0 HGB (g/dL) Date Value 06/02/2020 15.4 BUN (mg/dL) Date Value 06/02/2020 22 HCT (%) Date Value 06/02/2020 43.7 CREATININE (mg/dL) Date Value 06/02/2020 0.90 LIPID PROFILE GLUCOSE (mg/dL) Date Value 06/02/2020 192 (H) CHOL (mg/dL) Date Value 06/02/2020 97 (L) TSH LDL CHOL (mg/dL) Date Value 06/02/2020 31 TSH (mIU/L) Date Value 06/02/2020 2.01 CARDIAC ENZYMES HDL (mg/dL) Date Value 06/02/2020 25 (L) CK (U/L) Date Value 05/28/2020 52 TRIG (mg/dL) Date Value 06/02/2020 203 (H) LFTs CK-MB (ng/mL) Date Value 05/28/2020 0.27 AST(SGOT) (U/L) Date Value 06/02/2020 25 TROPONIN I (ng/mL) Date Value 06/02/2020 <0.012 ALT(SGPT) (U/L) Date Value 05/09/2019 28 ALTv (U/L) Date Value 06/02/2020 27 No results found for: BNP LDL CHOL (mg/dL) Date Value 06/02/2020 31 Recent Labs 06/02/20 1744 TROPNI <0.012 Recent Labs 06/02/20 1151 TRIG 203* LDL CHOL (mg/dL) Date Value 06/02/2020 31 NT-proBNP (pg/mL) Date Value 06/02/2020 195 (H) ASSESSMENT/PLAN Principal Problem: Atypical chest pain Active Problems: Obesity (BMI 30-39.9) Type 2 diabetes mellitus without complication, without long-term current use of insulin Family history of early CAD Essential hypertension Coronary artery calcification Stable angina Coronary artery disease involving [place]ct[place] coronary artery of choctaw heart with angina pectoris Atypical chest pain by history: Mixed features some exertional component noted. Possible stable angina. ECG shows no dynamic changes noted. Recommend Serial trop X 2, ECG in AM, limited Echo to assess to EF and wall motion changes. Tele monitoring. Recommend adding Norvasc 5 mg daily. CAD s/p PCI On ASA + Plavix. Recommend changing lopressor to Toprol XL 100 mg BiD/imdur 120 mg daily. Add Norvasc 5 mg daily. May need Ranexa if still have recurrent chest pain. HTN: Recommend changing lopressor to Toprol XL 100 mg BiD/imdur 120 mg daily. Add Norvasc 5 mg daily. Continue Lisinopril 2.5 mg daily as anit-anginal Home BP log recommended. Cross check his BP machine. Appropriate ways to check home BP discussed. Goals BP < 130/80 stressed. Explained if BP > 130/80, adviced to send us the log. Lifestyle modifications stressed. Dyslipidemia: Recommended to keep LDL < 70. Lifestyle modifications stressed. Currently on lipitor 80 mg daily, Fenofibrate 67 mg daily. LDL CHOL (mg/dL) Date Value 06/02/2020 31 T2DM: As per primary team. Obese: Recommended lifestyle modification/risk factor modification/weight reduction diet/adequate exercises. Body mass index is 30.92 kg/m. Rx plan reviewed with the patient. Thank you for allowing us to participate in the care of Brett Kramer. If you have any questions or concerns please feel free to call our office at [phone]. I would be happy to be of further assistance for Brett Kramer wellbeing. Gerhard Meredith MD Lawn Mower, Division of Cardiology [facility] documented in this encounter ED Notes Randy Marroquin RN - 06/02/2020 11:33 AM CDTPt presents to ED c/o chest pain, sob and left arm numbness since last night. Worse today. Had stents placed last Friday. Took 2 nitro - no relief documented in this encounter Miscellaneous Notes Care Plan - Charley Son RN - 06/03/2020 5:51 AM CDT Problem: Discharge Planning Goal: Absence of venous thromboembolism Outcome: Progressing as expected Goal: Adequate for discharge Outcome: Progressing as expected Goal: Adequate to move to next level of care Outcome: Progressing as expected Goal: Knowledge of medication management Outcome: Progressing as expected Problem: Cardiac Output - Decreased Goal: Absence of signs and symptoms of decreased cardiac output Outcome: Progressing as expected Problem: Falls, Risk of Goal: Absence of falls Outcome: Progressing as expected Problem: Pain Goal: Control of pain at or below patient's documented comfort goal Outcome: Progressing as expected Goal: Reduction in pain sensation Outcome: Progressing as expected Problem: Skin integrity Impaired (Risk or Actual) Goal: Wound healing Outcome: Progressing as expected Goal: Prevention of new skin breakdown Outcome: Progressing as expected Problem: Tissue Perfusion, Cardiopulmonary - Altered Goal: Circulatory function within specified parameters Outcome: Progressing as expected Problem: Respiratory Function - Impaired Goal: Adequate oxygenation Outcome: Progressing as expected Goal: Adequate work of breathing Outcome: Progressing as expected are Plan - Xuan Yin RN - 06/02/2020 7:35 PM CDT Problem: Discharge Planning Goal: Absence of venous thromboembolism Outcome: Progressing as expected Goal: Adequate for discharge Outcome: Progressing as expected Goal: Adequate to move to next level of care Outcome: Progressing as expected Goal: Knowledge of medication management Outcome: Progressing as expected Problem: Cardiac Output - Decreased Goal: Absence of signs and symptoms of decreased cardiac output Outcome: Progressing as expected Problem: Falls, Risk of Goal: Absence of falls Outcome: Progressing as expected Problem: Pain Goal: Control of pain at or below patient's documented comfort goal Outcome: Progressing as expected Goal: Reduction in pain sensation Outcome: Progressing as expected Problem: Skin integrity Impaired (Risk or Actual) Goal: Wound healing Outcome: Progressing as expected Goal: Prevention of new skin breakdown Outcome: Progressing as expected Problem: Tissue Perfusion, Cardiopulmonary - Altered Goal: Circulatory function within specified parameters Outcome: Progressing as expected D Nurse Note - Christine Wheatley RN - 06/02/2020 2:40 PM CDTPatient admitted to medication surg for diagnosis of chest pain Patient agrees to admission, discussed plan of care with patient and family. Patient is awake, alert, oriented, resp reg unlabored, color appropriate for race, PIV intact No adverse reaction to medications administered while in ED Belongings with patient to unit Report to Abigail CARMONA D Nurse Note - Christine Wheatley RN - 06/02/2020 2:14 PM CDTNurse Report Report given to Abigail CARMONA. Chief complaint, assessment findings and orders reviewed. Plan of care discussed at bedside with patient and both nurses. Patient/family members verbalized understanding. Christine Wheatley RN D Nurse Note - Christine Wheatley RN - 06/02/2020 1:59 PM CDTTried to call report and was told nurse was busy discharging patient and would call me back. documented in this encounter Plan of Treatment Date Type Specialty Care Team Description 06/05/2020 Appointment Echocardiograph Nadege Meredith MD [address] [facility] [address] [place] [address] Pc, Adc Echo-Vascular Inpatient - 06/27/2020 Office Visit Cardiology Julius Correa M D [address] [place] [address] [address] [place], [place] [address] Name Type Priority Associated Diagnoses Order S chedule EKG-12 LEAD ROUTINE HEART STATION Routine TOMORRO W AM AT 0600 for 1 Occurrenc es starting 2019 until 0 Troponin I LAB Routine EVERY 6 HOURS ( START TIME ADJUSTABLE ) START TIME ADJUSTABLE for 3 Occurrences sta rting 06/02/2020 unti l 06/03/2020, 2 completed Health Maintenance Due Date Last Done Comments URINE MICROALBUMIN 1989 Depression Screening 1991 FOOT EXAM 1997 DTaP,Tdap,and Td Vaccines (1 - 1998 06/12/2018 Tdap) EYE EXAM 05/18/2020 05/18/2019 HgA1C 11/20/2020 05/23/2020, 05/09/2019 LDL-C 06/02/2021 06/02/2020, 05/23/2020, 05/09/2019 CREATININE (SERUM) 06/03/2021 06/03/2020, 06/02/2020, 05/28/2020, Additional history exists INFLUENZA VACCINE Completed 05/28/2020 PNEUMOCOCCAL 0-64 YEARS COMBINED Completed 05/28/2020 SERIES documented as of this encounter Procedures Procedure Name Priority Date/Time Associated Diagnosis Comme nts POCT GLUCOSE Routine 06/03/2020 11:35 Results for this (AUTOMATED) AM CDT procedure are i n the results section. POCT GLUCOSE Routine 06/03/2020 8:02 Results for this (AUTOMATED) AM CDT procedure are i n the results section. CBC WITH DIFF Routine 06/03/2020 12:44 Results fo r this AM CDT procedure are i n the results section. BASIC METABOLIC Routine 06/03/2020 12:44 Results for this PANEL (NA, K, CL, AM CDT procedure are in CO2, GLUCOSE, BUN, the resul ts CREATININE, CA) section. TROPONIN I Routine 06/03/2020 12:44 Results for this AM CDT procedure are i n the results section. TROPONIN I Routine 06/02/2020 5:44 Results for this PM CDT procedure are i n the results section. POCT GLUCOSE Routine 06/02/2020 4:29 Results for this (AUTOMATED) PM CDT procedure are i n the results section. COVID-19 (ID NOW STAT 06/02/2020 12:24 Chest pain, Results for this RAPID TESTING) PM CDT unspecified type procedure are in the results section. N-TERMINAL PRO-BNP Add-on 06/02/2020 11:51 Resul ts for this AM CDT procedure are i n the results section. ACTIVATED PARTIAL STAT 06/02/2020 11:51 Chest pain, Result s for this THRMPLAS CHRISTIANO AM CDT unspecified type procedure a re in the results section. PROTHROMBIN TIME / STAT 06/02/2020 11:51 Chest pain, Resul ts for this INR AM CDT unspecified type procedure a re in the results section. CBC WITH DIFF STAT 06/02/2020 11:51 Chest pain, Results fo r this AM CDT unspecified type procedure a re in the results section. LIPID PANEL Add-on 06/02/2020 11:51 Results for this (50024)(TOTAL AM CDT procedure are in CHOLESTEROL, the results TRIGLYCERIDES, HDL) section. COMP. METABOLIC STAT 06/02/2020 11:51 Chest pain, Results for this PANEL (03282) AM CDT unspecified type procedure are in the results section. THYROID STIMULATING Add-on 06/02/2020 11:51 Resu lts for this HORMONE AM CDT procedure are i n the results section. TROPONIN I STAT 06/02/2020 11:51 Chest pain, Results for this AM CDT unspecified type procedure a re in the results section. MAGNESIUM Add-on 06/02/2020 11:51 Results for this AM CDT procedure are i n the results section. LIPASE STAT 06/02/2020 11:51 Chest pain, Results for this AM CDT unspecified type procedure a re in the results section. XR CHEST 1 VW STAT 06/02/2020 11:45 Chest pain, Results fo r this AM CDT unspecified type procedure a re in the results section. EKG-12 LEAD STAT 06/02/2020 11:39 AM CDT documented in this encounter Results POCT GLUCOSE (AUTOMATED) (06/03/2020 11:35 AM CDT) Pathologist [facility] POCT GLU 204 (H) 70 - 110 mg/dL [facility] Specimen Blood Performing Organization Address [facility] Phone Number [facility] CLIA: [id number] [place] [address] POCT GLUCOSE (AUTOMATED) (06/03/2020 8:02 AM CDT) Pathologist [facility] POCT GLU 129 (H) 70 - 110 mg/dL [facility] Specimen Blood Performing Organization Address [facility] Phone Number [facility] CLIA: [id number] [place] [address] Troponin I (06/03/2020 12:44 AM CDT) Pathologist [facility] TROPONIN I <0.012 <=0.034 ng/mL [facility] Specimen Blood - HAND, LEFT Narrative Performed At Equal or Less than 0.034 ng/ml---Normal [facility] Note: Cardiac troponin begins to [...] patient's use of biotin. Performing Organization Address City/State/Zipcode Phone Number [facility] CLIA: [id number] [place] [address] Basic Metabolic Panel (NA, K, CL, CO2, GLUCOSE, BUN, CREATININE, CA) (06/03/2020 12:44 AM CDT) [facility] NA 134 (L) 135 - 145 [facility] mmol/L [facility] K 4.0 3.5 - 5.0 [facility] mmol/L [facility] CL 102 98 - 108 mmol/L [facility] CO2 TOTAL 24 23 - 31 mmol/L [facility] AGAP 8 2 - 16 [facility] BUN 21 7 - 23 mg/dL [facility] GLUCOSE 102 70 - 110 mg/dL [facility] CREATININE 0.85 0.60 - 1.25 [facility] [facility] mg/dL [facility] CALCIUM 9.1 8.6 - 10.6 [facility] mg/dL [facility] eGFR Calculation 99.8 mL/min/1.73m2 [facility] (Non-[facility] LABORATORY [place]) eGFR Calculation 121.0 mL/min/1.73m2 [facility] () [facility] Specimen Blood - HAND, LEFT Narrative Performed At [employer] [facility] [employer] [...] tests). Performing Organization Address City/State/Zipcode Phone Number [facility] CLIA: [id number] [place] [address] CBC with Differential (06/03/2020 12:44 AM CDT) [facility] WBC 8.44 4.20 - 10.70 [facility] 10*3/L [facility] RBC 4.53 4.26 - 5.52 [facility] 10*6/L [facility] HGB 14.0 12.2 - 16.4 [facility] g/dL [facility] HCT 41.0 38.4 - 49.3 % [facility] MCV 90.5 81.7 - 95.6 fL [facility] MCH 30.9 26.1 - 32.7 pg [facility] MCHC 34.1 31.2 - 35.0 [facility] g/dL [facility] RDW-SD 37.8 (L) 38.5 - 51.6 fL [facility] RDW-CV 11.4 (L) 12.1 - 15.4 % [facility] PLT 303 150 - 328 [facility] 10*3/L [facility] MPV 9.9 9.8 - 13.0 fL [facility] NRBC/100 WBC 0.0 0.0 - 10.0 /100 [facility] WBCs [facility] NRBC x10^3 <0.01 10*3/L [facility] GRAN MAT (NEUT) % 42.4 % [facility] IMM GRAN % 0.60 % [facility] LYMPH % 42.2 % [facility] MONO % 12.6 % [facility] EOS % 1.7 % [facility] BASO % 0.5 % [facility] GRAN MAT x10^3(ANC) 3.59 1.99 - 6.95 [facility] 10*3/uL HOSPITAL LAB[facility]ATORY IMM GRAN x10^3 0.05 0.00 - 0.06 [facility] 10*3/uL [facility]OS[facility]ITAL [facility]ORY LYMPH x10^3 3.56 (H) 1.09 - 3.23 [facility] 10*3/uL [facility]ITAL [facility] MONO x10^3 1.06 (H) 0.36 - 1.02 [facility] 10*3/uL HOSPITAL [facility]ORY EOS x10^3 0.14 0.06 - 0.53 [facility] 10*3/uL [facility] BASO x10^3 0.04 0.01 - 0.09 [facility] 10*3/uL [facility]OSPITAL LAB[facility]ORY Specimen Blood - HAND, LEFT Performing Organization Address [facility] Phone Number [facility] CLIA: [id number] [place] [address] Troponin I (06/02/2020 5:44 PM CDT) Pathologist Sig nature TROPONIN I <0.012 <=0.034 ng/mL [facility] Specimen Blood - ARM, RIGHT Narrative Performed At Equal or Less than 0.034 ng/ml---Normal [facility] Note: Cardiac troponin begins to [...] patient's use of biotin. Performing Organization Address [facility] Phone Number [facility] CLIA: [id number] [place] [address] POCT GLUCOSE (AUTOMATED) (06/02/2020 4:29 PM CDT) Pathologist Sig [place] POCT GLU 128 (H) 70 - 110 mg/dL [facility] Specimen Blood Performing Organization Address [facility]/Zipcode Phone Number [facility] CLIA: [id number] [place] [address] [place] [address] COVID-19 (ID NOW RAPID TESTING) (06/02/2020 12:24 PM CDT) SARS-CoV-2 Rapid ID Not Detected Not Detected [facility] Specimen Swab - NASOPHARYNGEAL SWAB Narrative Performed At [facility] NOW COVID-19 Assay is an isothermal nucleic [facility] acid amplification test intended for the qualitative detection of nucleic acid from SARS-CoV-2 viral RNA in nasopharyngeal (TELEPHONE INFORMATION SUPERVISOR) specimens. It is used under Emergency Use Authorization (EUA) by FDA. The limit of detection (LOD) of the assay is 125 Genome Equivalents/mL. A positive result is indicative of the presence of SARS-CoV-2 RNA. Clinical correlation with patient history and other diagnostic information is necessary to determine patient infection status. A negative (Not Detected) result does not preclude SARS-CoV-2 infection. In patients with clinical symptoms and other tests that are consistent with SARS-CoV-2 infection, negative results should be treated as presumptive negative and a new specimen should be tested with alternative PCR molecular test. Invalid: Please collect a new specimen for repeat patient testing if clinically indicated. Performing Organization Address [facility] Phone Number [facility] CLIA: [id number] [place] [address] [place] [address] Thyroid Stimulating Hormone (TSH) (06/02/2020 11:51 AM CDT) Pathologist Sig [facility] TSH 2.01Comment: Biotin 0.45 - 4.70 [facility] has been reported mIU/L HOSPITAL LABORATORY to cause a negative bias, interpret results relative to patient's use of biotin. Specimen Blood - VENOUS Performing Organization Address [facility]/Zipcode Phone Number [facility] CLIA: [id number] [place] [address] [place] [address] Magnesium Serum (06/02/2020 11:51 AM CDT) Pathologist Sig [facility] MAGNESIUM 1.8 1.7 - 2.4 mg/dL [facility] Specimen Blood - VENOUS Performing Organization Address [facility] Phone Number [facility] CLIA: [id number] [place] [address] N-TERMINAL PRO-BNP (06/02/2020 11:51 AM CDT) Pathologist Sig nature NT-proBNP 195 (H) <=125 pg/mL [facility] Specimen Blood - VENOUS Narrative Performed At Biotin has been reported to cause a negative [facility] bias, interpret results relative to patient's use of biotin. Performing Organization Address City/[facility] Phone Number [facility] CLIA: [id number] [place] [address] LABORATORY [address] [facility] LIPID PANEL ([id number])(TOTAL CHOLESTEROL, TRIGLYCERIDES, HDL) (06/02/2020 11:51 AM CDT) Pathologist Sig nature CHOL 97 (L) 120 - 200 mg/dL [facility] HDL 25 (L) >40 mg/dL [facility] HDLC RATIO 3.9 <=5.0 [facility] TRIG 203 (H) 30 - 170 mg/dL [facility] LDL CHOL 31 <=160 mg/dL [facility] VLDL 41 5 - 60 mg/dL [facility] Specimen Blood - VENOUS Performing Organization Address [facility] Phone Number [facility] CLIA: [id number] [place] [address] [address] CBC WITH DIFF (06/02/2020 11:51 AM CDT) Pathologist Sig nature WBC 9.97 4.20 - 10.70 [facility] 10*3/L [facility] RBC 4.90 4.26 - 5.52 [facility] 10*6/L [facility] HGB 15.4 12.2 - 16.4 [facility] g/dL [facility] HCT 43.7 38.4 - 49.3 % [facility] MCV 89.2 81.7 - 95.6 fL [facility] MCH 31.4 26.1 - 32.7 pg [facility] MCHC 35.2 (H) 31.2 - 35.0 [facility] g/dL [facility] RDW-SD 36.9 (L) 38.5 - 51.6 fL [facility] RDW-CV 11.5 (L) 12.1 - 15.4 % [facility] PLT 319 150 - 328 [facility] 10*3/L [facility] MPV 10.0 9.8 - 13.0 fL [facility] NRBC/100 WBC 0.0 0.0 - 10.0 /100 [facility] WBCs [facility] NRBC x10^3 <0.01 10*3/L [facility] GRAN MAT (NEUT) % 67.3 % [facility] IMM GRAN % 0.50 % [facility] LYMPH % 22.0 % [facility] MONO % 8.8 % [facility] EOS % 1.0 % [facility] BASO % 0.4 % [facility] GRAN MAT x10^3(ANC) 6.71 1.99 - 6.95 [facility] 10*3/uL [facility] IMM GRAN x10^3 0.05 0.00 - 0.06 [facility] 10*3/uL [facility] LYMPH x10^3 2.19 1.09 - 3.23 [facility] 10*3/uL [facility] MONO x10^3 0.88 0.36 - 1.02 [facility] 10*3/uL [facility] EOS x10^3 0.10 0.06 - 0.53 [facility] 10*3/uL [facility] BASO x10^3 0.04 0.01 - 0.09 [facility] 10*3/uL [facility] Specimen Blood - VENOUS Performing Organization Address City/State/Zipcode Phone Number [facility] CLIA: [id number] [place] [address] LIPASE, SERUM (06/02/2020 11:51 AM CDT) [facility] LIPASE 133 0 - 220 U/L [facility] Specimen Blood - VENOUS Performing Organization Address City/[facility]/Zipcode Phone Number [facility] CLIA: [id number] [place] [address] COMP. METABOLIC PANEL ([id number]) (06/02/2020 11:51 AM CDT) [facility] NA 135 135 - 145 [facility] mmol/L [facility] K 4.4 3.5 - 5.0 [facility] mmol/L [facility] CL 99 98 - 108 mmol/L [facility] CO2 TOTAL 23 23 - 31 mmol/L [facility] AGAP 13 2 - 16 [facility] BUN 22 7 - 23 mg/dL [facility] GLUCOSE 192 (H) 70 - 110 mg/dL [facility] CREATININE 0.90 0.60 - 1.25 [facility] mg/dL [facility] TOTAL BILI 0.8 0.1 - 1.1 mg/dL [facility] CALCIUM 9.8 8.6 - 10.6 [facility] mg/dL [facility] T PROTEIN 7.2 6.3 - 8.2 g/dL [facility] ALBUMIN 4.2 3.5 - 5.0 g/dL [facility] ALK PHOS 76 34 - 122 U/L [facility] ALTv 27 5 - 50 U/L [facility] AST(SGOT) 25 13 - 40 U/L [facility] eGFR Calculation 93.5 mL/min/1.73m2 [facility] [place] eGFR Calculation 113.3 mL/min/1.73m2 [facility] ([facility]) [facility] Specimen Blood - VENOUS Narrative Performed At [employer]tration [...] abnormalities in imaging tests). Performing Organization Address [facility] Phone Number [facility] CLIA: [id number] [place] [address] PROTHROMBIN TIME / INR (06/02/2020 11:51 AM CDT) PROTIME PATIENT 12.4 12.0 - 14.7 [facility] LABORATORY INR 1.0Comment: Normal [facility] INR <1.1; Warfarin [facility] Therapeutic range LABORATORY 2.0 to 3.0 or 2.5 to 3.5, depending upon the indications. Specimen Blood - VENOUS Performing Organization Address [facility] Phone Number [facility] CLIA: [id number] [place] [address] [place] [address] Drive aPTT (06/02/2020 11:51 AM CDT) Pathologist Sig nature APTT Patient 30 23 - 38 Seconds [facility] Specimen Blood - VENOUS Narrative Performed At [facility] patient population mean normal value [facility] for aPTT is 30 seconds. Performing Organization Address [facility] Phone Number [facility] CLIA: [id number] [place] [address] TROPONIN I (06/02/2020 11:51 AM CDT) Pathologist Sig nature TROPONIN I <0.012 <=0.034 ng/mL [facility] Specimen Blood - VENOUS Narrative Performed At Equal or Less than 0.034 ng/ml---Normal [facility] Note: Cardiac troponin begins to [...] patient's use of biotin. Performing Organization Address City/[facility]/Zipcode Phone Number [facility] CLIA: [id number] [place] [address] XR CHEST 1 VW (06/02/2020 11:45 AM CDT) Specimen Narrative Performed At CHEST PORTABLE ONE VIEW PACS/VR/DOSE HISTORY:CP TECHNIQUE: Frontal, portable projection of the chest is obtained. COMPARISON: 05/23/2020 FINDINGS: The lungs are clear. The heart size and mediastinal silhouette are normal. No pleural effusion or pneum othorax is seen. CONCLUSIONS: No acute cardiopulmonary di sease. Procedure Note [facility], Radiant Results Inft User - 2019 12:49 PM CDT CHEST PORTABLE ONE VIEW HISTORY:CP TECHNIQUE: Frontal, portable projection of the chest is obtained. COMPARISON: 05/23/2020 FINDINGS: The lungs are clear. The heart size and mediastinal silhouette are normal. No pleural effusion or pneum othorax is seen. CONCLUSIONS: No acute cardiopulmonary di sease. 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 5 mg mg 2.5 mg, Oral, DAILY, First dose (after last modification) on 06/03/20 at 0900, Until Discontinued, Routine aspirin chewable tablet 81 mg Given 06/03/2020 8:27 AM CDT 81 mg 81 mg, Oral, DAILY, First dose on 06/03/20 at 0900, Until Discontinued, Routine atorvastatin (LIPITOR) tablet 80 mg Given 06/03/2020 8:27 AM CDT 80 mg 80 mg, Oral, DAILY, First dose on 06/03/20 at 0900, Until Discontinued, Routine clopidogreL (PLAVIX) tablet 75 mg Given 06/03/2020 8:27 AM CDT 75 mg 75 mg, Oral, DAILY, First dose on 06/03/20 at 0900, Until Discontinued, Routine fenofibrate micronized (LOFIBRA) capsule 67 Given 06/03/2020 8:27 AM CDT 67 mg mg 67 mg, Oral, DAILY, First dose on 06/03/20 at 0900, Until Discontinued, Routine fluticasone propionate 50 mcg/actuation Given 06/03/2020 11:49 A M CDT 1 Tenmile nasal spray 1 Tenmile 1 Tenmile, Nasal, DAILY, First dose on 06/03/20 at 0900, Until Discontinued, Routine gabapentin (NEURONTIN) capsule 600 mg Given 06/03/2020 8:26 AM CDT 600 mg 600 mg, Oral, TID, First dose on Fri06/02/20 at 2000, Until Discontinued, Routine Given 06/02/2020 9:29 PM CDT 600 mg glipiZIDE (GLUCOTROL) tablet 5 mg Given 06/03/2020 8:27 AM CDT 5 mg 5 mg, Oral, BIDAC, First dose on Fri06/02/20 at 2130, Until Discontinued, Routine Given 06/02/2020 9:40 PM CDT 5 mg isosorbide mononitrate (IMDUR) 24 hr tablet Given 05/25 8:27 AM CDT 120 mg 120 mg 120 mg, Oral, DAILY, First dose on 06/03/20 at 0900, Until Discontinued, Routine lisinopriL (PRINIVIL,ZESTRIL) tablet 2.5 mg Given 06/03/2020 8:26 AM CDT 2.5 mg 2.5 mg, Oral, DAILY, First dose on 06/03/20 at 0900, Until Discontinued, Routine magnesium oxide (MAG-OX 400) tablet 400 mg Given 06/03/2020 8:26 AM CDT 400 mg 400 mg, Oral, BID, First dose on Fri06/03/20 at 0030, Until Discontinued, Routine Given 06/03/2020 12:42 AM CDT 400 mg methocarbamoL (ROBAXIN) tablet 500 mg Given 06/03/2020 8:27 AM CDT 500 mg 500 mg, Oral, BID, First dose on Fri06/02/20 at 2000, Until Discontinued, Routine Given 06/02/2020 9:30 PM CDT 500 mg metoprolol succinate XL (TOPROL XL) tablet Given 06/03/2020 8:26 AM CDT 100 mg 100 mg 100 mg, Oral, BID, First dose on Fri06/02/20 at 2000, Until Discontinued, Routine Given 06/02/2020 9:29 PM CDT 100 mg nitroglycerin (NITROSTAT) sublingual tablet Given 05/25 1:29 AM CDT 0.4 mg 0.4 mg 0.4 mg, Sublingual, Q5MIN PRN, Starting Fri06/02/20 at 1721, Until Discontinued, Routine, Chest pain ondansetron (ZOFRAN (PF)) injection 4 mg Given 06/03/2020 1:43 AM CDT 4 mg 4 mg, Slow IV Push, Q6HPRN, Starting Fri06/02/20 at 1645, Until Discontinued, Routine, Nausea and Vomiting (N/V) Given 06/02/2020 5:45 PM CDT 4 mg pantoprazole (PROTONIX) EC tablet 40 mg Given 06/03/2020 8:27 AM CDT 40 mg 40 mg, Oral, DAILY, First dose on Fri06/03/20 at 0900, Until Discontinued, Routine ranolazine (RANEXA) 12 hr tablet 500 mg Given 06/03/2020 8:26 AM CDT 500 mg 500 mg, Oral, Q12H, First dose on Fri06/02/20 at 2130, Until Discontinued, Routine Given 06/02/2020 9:41 PM CDT 500 mg Sliding Scale Insulin - Aspart Given 06/03/2020 11:45 AM 2 Units Left Upper (NOVOLOG) + Fsbg Testing CDT Arm-SC Subcutaneous, AC, First dose (after last modification) on Fri06/03/20 at 0730, Until Discontinued, Routine sodium chloride (NS) injection 5 mL 5 mL, Intravenous, PRN, Starting 05/14 at 1137, Until Discontinued, Routine, IV line flushing traMADoL (ULTRAM) tablet 50 mg 50 mg, Oral, Q8HPRN, Starting Fri06/02/20 at 2126, Unt il Discontinued, Routine, Pain (scale 4-6), Pain (scale 7-10) Medication Order MAR Action Action Date Dose Rate Site aspirin tablet 325 mg Given 06/02/2020 12:20 PM CDT 325 mg 325 mg, Oral, ONCE, 1 dose, Fri06/02/20 at 1145, STAT FENTanyl PF (SUBLIMAZE (PF)) injection 100 Given 06/02 12:20 PM CDT 100 mcg mcg 100 mcg, Slow IV Push, ONCE, 1 dose, Fri06/02/20 at 1300, Routine FENTanyl PF (SUBLIMAZE (PF)) injection 75 Given 06/02/2020 1:45 PM CDT 75 mcg mcg 75 mcg, Slow IV Push, ONCE, 1 dose, Fri06/02/20 at 1445, STAT morpHINE injection 2 mg Given 06/02/2020 5:45 PM CDT 2 mg 2 mg, Slow IV Push, Q6HPRN, Starting Fri06/02/20 at 1643, Until Fri06/02/20 at 2127, Routine, Chest pain ondansetron (ZOFRAN (PF)) injection 4 mg Given 06/02/2020 12:20 PM CDT 4 mg 4 mg, Slow IV Push, ONCE, 1 dose, Fri06/02/20 at 1300, RADHA sulfur hexafluoride microsphr (LUMASON) Given 06/02/2020 2:25 P M CDT 5 mL injection 5 mL 5 mL, Intravenous, ONCE, 1 dose, Fri06/02/20 at 1430, Routine, crew team member approving Restricted medication: NADEGE MEREDITH documented in this encounter Additional Health Concerns Infection Onset Date Last Indicated Resolved Time COVID-19 Rule Out 06/02/2020 06/02/2020 06/02/2020 1: 17 PM CDT documented as of this encounter
--- OUTSIDE RECORDS SUMMARY | 2020-07-15 08:54 | XMS REPORT | Summary of Care ---
:1980 Author Organization [facility] Address [address] [place] [id number] Care Team Providers Name Role Phone Omari Thao Primary Care Provider Reason for Referral (Routine) Status Reason Specialty Diagnoses / Referred By Referred To Procedures Contact Contact New Request IM-INTERVENTIONAL Diagnoses Unstable angina Ray Cyr, CARDIOLOGY Procedures Discharge Follow-Up: Specialty Service IM-INTERVENTIONAL CARDIOLOGY; 4-6 Weeks [address] [place] [address] (Routine) Status Reason Specialty Diagnoses / Referred By Referred To Procedures Contact Contact New Request Diagnoses Unstable angina Ray Cyr MD Burns, William E Procedures Discharge Follow-up: PCP OMARI THAO; 3-[address] [place] [address] 201 [facility] [address] [place] [address] Phone: [phone] Phone: Fax: (Routine) Status Reason Specialty Diagnoses / Referred By Referred To Procedures Contact Contact New Request Cardiology Procedures Jean Almanzar Cardiac Cath Request MD Vicente for Service [address] [place] [address] (Cardiology Use [place], [place] Only) [phone] (Routine) Status Reason Specialty Diagnoses / Referred By Referred To Procedures Contact Contact New Request Cardiology Procedures Jean Almanzar Cardiac Cath Request MD Vicente for Service [address] [place] [address] (Cardiology Use [place], [place] Only) [phone] (Routine) Status Reason Specialty Diagnoses / Referred By Contact Refe rred To Procedures Contact New Request Cardiology Diagnoses Chest pain, unspecified type Logan Seth MD Procedures ECHO ROUTINE W/DOPPLER COLOR [address] [place] [address] [phone] Phone: MRI/CAT Scan (STAT) Status Reason Specialty Diagnoses / Referred By Referred To Procedures Contact Contact New Request Diagnostic Diagnoses Chest pain, unspecified type Shortness of breath Nii, Radiology Procedures CT CHEST PULMONARY ANGIOGRAM CYNTHIA AnayaP [address] [address] Radiology Services (STAT) Status Reason Specialty Diagnoses / Referred By Referred To Procedures Contact Contact New Request Diagnostic Diagnoses Chest pain, unspecified type Shortness of breath Isamar Medina, Radiology Procedures Chest 1 View [address] [address] Reason for Visit Reason Comments Chest Pain Shortness of Breath Auth/Cert Status Reason Specialty Diagnoses / Referred By Referred To Procedures Contact Contact Emergency Medicine Diagnoses CHEST PAIN;SOB [facility] Emergency Dept [address] [place] [address] Fax: Encounter Details Date Type Department Care Team Description 05/23/2020 - Hospital Encounter Cardiology (CHANTELL 9B) Héctor Bales [facility] [address] [address] Chest pain 05/28/2020 712 [facility] Logan Seth MD [address] [place] [address] [id number] [place] [address] Trena Salinas MD [address] [place] [address] [phone] Ray Cyr MD [address] [place], [place] [id number] Allergies No Known Allergiesdocumented as of this encounter (statuses as of 05/28/2020) Medications Medication Sig Dispensed Refills Start Date [...] on 05/23/2020 6:30 PM ibuprofen 600 mg tablet Take 1 tablet by 30 tablet 1 8 Active mouth every 8 (eight) hours as needed for Pain (scale 4-6). methocarbamol (ROBAXIN) Take 500 mg by 0 Active 500 mg tablet mouth 2 (two) times daily. metFORMIN 1,000 mg Take 1,000 mg by 0 Active tablet mouth 2 (two) times daily with meals. insulin aspart U-100 inject 10 Units 3 mL 5 05/15/2019 Active (NOVOLOG FLEXPEN U-100 under the skin 3 INSULIN) 100 unit/mL (3 (three) times mL) daily before injectionIndications: meals. Type 2 diabetes mellitus without complication, without long-term current use of insulin Insulin Glargine inject 27 Units 15 mL 3 05/15/2019 Active (LANTUS SOLOSTAR U-100 under the skin INSULIN) 100 unit/mL (3 daily. mL) injectionIndications: Type 2 diabetes mellitus without complication, without long-term current use of insulin artificial Place 1 Drop in 15 mL 3 05/15/2019 Ac tive tears,hypromellose, 0.5 both eyes 4 % ophthalmic (four) times dropsIndications: daily. Orbital cellulitis, right dorzolamide-timolol Place 1 Drop in 10 mL 3 05/15/2019 Active 22.3-6.8 mg/mL right eye 2 ophthalmic (two) times dropsIndications: daily. Orbital cellulitis, right omeprazole 40 mg Take 1 capsule 90 capsule 4 05/16/2019 Active capsuleIndications: by mouth daily. Orbital cellulitis, right Insulin Glargine inject 27 Units 15 mL 3 05/15/2019 Active (LANTUS SOLOSTAR U-100 under the skin INSULIN) 100 unit/mL (3 daily. 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 mcg/actuation nasal spray diclofenac 50 mg EC Take 50 mg by 0 Active tablet mouth daily. metoprolol tartrate 100 Take 1 tablet by 60 tablet 5 0 Active mg tabletIndications: mouth 2 (two) Unstable angina times daily. atorvastatin 80 mg Take 1 tablet by 90 tablet 3 05/28/2020 Active tabletIndications: mouth daily. Unstable angina clopidogreL 75 mg Take 1 tablet by 30 tablet 11 05/28/2020 Active tabletIndications: mouth daily. Unstable angina fenofibrate micronized Take 1 capsule 90 capsule 3 05/28/2020 Active 67 mg by mouth daily. capsuleIndications: Unstable angina isosorbide mononitrate [...] Chest pain for up to 30 days. aspirin 325 mg tablet Take 1 tablet by 30 tablet 0 06/12/2018 05/28/20 Discontinued mouth 2 (two) 20 times daily. metoprolol tartrate 50 Take 50 mg by 0 12/12 Discontinued mg tablet mouth 2 (two) 20 times daily. predniSONE 20 mg Take 3 tablets 21 tablet 0 05/15/2019 0 Discontinued tabletIndications: by mouth daily. 20 Orbital cellulitis, right amoxicillin-pot Take 1 tablet by 21 tablet 0 05/15/2019 Discontinued clavulanate 500 mg mouth 3 (three) 20 500-125 mg times daily. tabletIndications: Orbital cellulitis, right doxycycline 100 mg Take 1 capsule 14 capsule 0 05/15/201912/12 Discontinued capsuleIndications: by mouth every 20 Orbital cellulitis, 12 (twelve) right hours. insulin aspart U-100 inject 10 Units 3 mL 3 05/15/2019 Discontinued (NOVOLOG FLEXPEN U-100 under the skin 3 20 INSULIN) 100 unit/mL (3 (three) times mL) daily before injectionIndications: meals. Type 2 diabetes mellitus without complication, without long-term current use of insulin predniSONE 20 mg Take 3 tablets 21 tablet 0 05/15/2019 0 Discontinued tabletIndications: by mouth daily. 20 Dacryoadenitis of right lacrimal gland buprenorphine 10 Apply 10 Patches 0 Discontinued mcg/hour patch to skin. 20 documented as of this encounter (statuses as of 05/28/2020) Active Problems Problem Noted Date Unstable angina 05/24/2020 Type 2 diabetes mellitus without complication, without long-term current 05/24/2020 use of insulin Family history of early CAD 05/24/2020 Essential hypertension 05/24/2020 Coronary artery calcification 05/24/2020 Chest pain 05/23/2020 Orbital cellulitis, right 05/10/2019 Overview: S/P Orbitotomy with Mass Excision OD Obesity (BMI 30-39.9) 05/10/2019 documented as of this encounter (statuses as of 05/28/2020) Immunizations Name Administration Dates Next Due Influenza [...] to pay for the very basics like Ahsanw hat hard 05/23/2020 food, housing, medical care, [...] been in contact with No / Unsure 05/23/2020 6:14 PM CDT someone who was confirmed or suspected to have Coronavirus / COVID-19? documented as of this encounter Last Filed Vital Signs Vital Sign Reading Time Taken Comments Blood Pressure 104/69 05/28/2020 12:22 PM CDT Pulse 78 05/28/2020 12:22 PM CDT Temperature 37.3 C (99.2 F) 05/28/2020 12:22 PM CDT Respiratory Rate 16 05/28/2020 12:22 PM CDT Oxygen Saturation 92% 05/28/2020 12:22 PM CDT Inhaled Oxygen Concentration - - Weight 114.5 kg (252 lb 8 oz) 05/24/2020 3:28 AM CDT Height 175.3 cm (5' 9") 05/23/2020 5:55 PM CDT Body Mass Index 37.29 05/23/2020 5:55 PM CDT documented in this encounter Discharge Instructions Bowen Mas RN - 05/28/2020 Patient Discharge Instructions Discharge date: 05/28/2020 Procedure(s): Discharge Orders Discharge Follow-up: PCP OMARI THAO; 3-5 Days To PCP: OMARI THAO [[id number]] Patient's Preferred Location: Other - Specify Comments [place] Discharge Disposition: HOME, ([facility]) When (Patients with risk for unplanned readmission score over 16 or those noted as Hospital Dependent should follow up within 7 days with PCP or primary DX specialist): 3-5 Days Risk of Unplanned Readmission:( Score greater than 16 indicates high risk) 9 Cardiac (2 g Na, Low Fat/Chol) 1800 Calorie Diabetic Consistent Carbs Diet - includes HS Snack; Texture: Regular Texture Regular Diabetic: NIDDM Discharge Condition - Discharge Condition: FAIR Discharge Activity Discharge Activity: No Heavy Lifting or Strenuous Activity No bathing/soaking R arm x48 hours Discharge Activity: Other-See Comments No Heavy Lifting for: 1 WEEK Discharge Follow-Up: Specialty Service IM-INTERVENTIONAL CARDIOLOGY; 4-6 Weeks Specialty: IM-INTERVENTIONAL CARDIOLOGY [124] Patient's Preferred Location: Other - Specify Comments [place] Discharge Disposition: HOME, ([facility]) When (Patients with risk for unplanned readmission score over 16 or those noted as Hospital Dependent should follow up within 7 days with PCP or primary DX specialist): 4-6 Weeks Risk of Unplanned Readmission:( Score greater than 16 indicates high risk) 9 VTE Propylaxis- Was ordered during hospitalization Discharge Instructions Order Comments: You were admitted for unstable angina with coronary artery disease that required 3 stents placed. During the stent placement, you were loaded with Plavix and are instructed to continue on medications to help improve your heart's overall function and minimize plaque and cholesterol buildup in your arteries. You will be discharged with the following changes to your medications. Please take these medicationsas listed below: 1. Aspirin 81mg once daily (for life) 2. Plavix 75mg once daily (for 1 year) 3. Atorvastatin 80mg once daily 4. Lisinopril 25mg once daily 5. Metoprolol tartrate 100mg twice daily 6. Fenofibrate 67mg once daily 7. Imdur 120mg once daily It is very important that you take all of your medications that you were discharged with during thisadmission, especially the Aspirin and Plavix that were mentioned above. You must take the Aspirin for life and take the Plavix for 1 year. Please stop your original Aspirin 325mg twice daily dosage and take 81mg once daily instead. Please continue all your other medications as they were prescribed. Please follow up with your primary care provider within a week. Please follow up with Interventional Cardiology in 4-6 weeks. Your cholesterol and triglyceride levels were severely elevated during admission. You have thus beenstarted on both Atorvastatin and Fenofibrate to help reduce your triglyceride levels and bring your bad cholesterol levels down. This will reduce the likelihood of plaque development in your arteries, which is one of the contributing factors leading to your unstable angina. Your Metoprolol tartrate dosage was increased from 50mg to 100mg twice daily. Please check your heart rate and blood pressure at least once a day and keep the numbers in a log. Please bring the log to all your doctors' appointments. This will help your doctors make medication changes appropriately. If you experience any of the following, please call your doctor and/or go to the nearest Emergency Department: Chest pain, shortness of breath, lightheadedness/dizziness, bleeding, or other alarming symptoms. It was a pleasure getting to know you and I'm glad you are feeling better! Follow instructions as indicated below: 1. The [...] while awake to avoid respiratory complications. 4. Liftin. Weight: In general, sudden weight gains or [...] that doesnt improve 13. Other discharge instructions: 14. Special Instructions: Take Home Medications These are medications ordered for you by your healthcare provider. Do not take any other medications or supplements unless advised by your healthcare provider. Current Discharge Medication List START taking these medications Details aspirin 81 mg chewable tablet Take [...] tablet, Refills: 3 Associated Diagnoses: Unstable angina CONTINUE these medications which have CHANGED Details metoprolol tartrate 100 mg tablet Take 1 tablet by mouth 2 (two) times daily. Qty: 60 tablet, Refills: 5 Associated Diagnoses: Unstable angina CONTINUE these medications which have NOT CHANGED Details diclofenac 50 mg EC tablet Take 50 mg by mouth daily. fluticasone propionate (FLONASE ALLERGY RELIEF) 50 mcg/actuation nasal spray Use 1 [place] in each nostril daily. metFORMIN 1,000 mg tablet Take 1,000 [...] (scale 7-10). Qty: 90 tablet, Refills: 0 predniSONE 10 mg tablet 3 tablets daily po for one week, then 2 tablets daily po until return Qty: 50 tablet, Refills: 3 Associated Diagnoses: Idiopathic orbital inflammatory syndrome, right artificial tears,hypromellose, 0.5 % ophthalmic drops Place 1 Drop in both eyes 4 (four) times daily. Qty: 15 mL, Refills: 3 Associated Diagnoses: Orbital cellulitis, right dorzolamide-timolol 22.3-6.8 mg/mL ophthalmic drops Place 1 Drop in right eye 2 (two) times daily. Qty: 10 mL, Refills: 3 Associated Diagnoses: Orbital cellulitis, right insulin aspart U-100 (NOVOLOG FLEXPEN U-100 INSULIN) 100 unit/mL (3 mL) injection inject 10 Units under the skin 3 (three) times daily before meals. Qty: 3 mL, Refills: 5 Associated Diagnoses: Type 2 diabetes mellitus without complication, without long-term current use of insulin !! Insulin Glargine (LANTUS SOLOSTAR U-100 INSULIN) 100 unit/mL (3 mL) injection inject 27 Units under the skin daily. Qty: 15 mL, Refills: 3 Associated Diagnoses: Type 2 diabetes mellitus without complication, without long-term current use of insulin !! Insulin Glargine (LANTUS SOLOSTAR U-100 INSULIN) 100 unit/mL (3 mL) injection inject 27 Units under the skin daily. Qty: 15 mL, Refills: 3 Associated Diagnoses: Type 2 diabetes mellitus without complication, without long-term current use of insulin omeprazole 40 mg capsule Take 1 capsule by mouth daily. Qty: 90 capsule, Refills: 4 Associated Diagnoses: Orbital cellulitis, right !! - Potential duplicate medications found. Please discuss with provider. STOP taking these medications buprenorphine 10 mcg/hour patch Comments: Reason for Stopping: amoxicillin-pot clavulanate 500 mg 500-125 mg tablet Comments: Reason for Stopping: doxycycline 100 mg capsule Comments: Reason for Stopping: aspirin 325 mg tablet Comments: Reason for Stopping: Follow-up appointments: Your follow up appointment with your surgeon has been made. Appointment Date: , Appointment Time . For questions regarding follow-up instructions call the [employer] Hotline at or If you experience any of the following symptoms , please follow up with . For worsening symptoms/changing condition/problems or questions: Non-emergency/urgent: Call the Healthcare Hotline at or or Emergency: Go to the closest emergency room or call [address] by Date Time If you receive the [...] information on smoking and how to quit. [employer], http://www.lungusa.org/stop-smoking/ [employer], http://www.cancer.org/Healthy/StayAwayfromTobacco/index [employer] Heart Association, http://www.heart.org/HEARTORG/GettingHealthy/QuitSmoking/Quit-Smoking_[facility] _001085_SubHomePage.jsp AttachmentsThe following attachments cannot be sent through Care Everywhere. Angina, Discharge Instructions for (Jamaican)Choices, Low-Salt (Jamaican)Diabetes, Eating Out When You Have (Jamaican)Diabetes, Foot Care Program, Your (Jamaican) Diabetes, Managing: The A1C Test (Jamaican)Heart Attack, Symptoms of a (Jamaican) Insulin, Using and Injecting (Jamaican)Aspirin, ASA chewable tablets (Jamaican) Atorvastatin tablets (Jamaican)Clopidogrel tablets (Jamaican)Fenofibrate (micronized) capsule (Jamaican)Isosorbide Mononitrate extended-release tablets (Jamaican)Lisinopril tablets (Jamaican)documented in this encounter Progress Notes Dipika Echavarria RN - 05/28/2020 10:37 AM CDT Care Management Discharge Disposition Note (DCDN) 5-2-1 Interventions: Disease specific education;Intensive medication reconciliation/management;Teachback;Follow-up appointments;Clear discharge plan 5-2-1 Providers: Physician;Four Slide Machine Operator/Lien Searcher;Nurse 5-2-1 Patient Capacity Improvements: Transportation arrangements Discharge Plan for ongoing care and services: Home/Caregiver Home Discussed with patient/patients family involved in decision making: Patient or family caregiver understands, and agrees with discharge plan. Mery Genao [phone] (Friend) Discharge Plan: Home/Caregiver Home Discharge location(s): Home/Caregiver address: [address] [place] [phone] Community resources/referrals made or provided to patient: Yes Resources/Referrals: County Resources Fact Sheets Mental Status: Alert & Oriented to Person,Place & Time Psychosocial issues and/or concerns resulting in patient being a high risk for re-admission: Lack offunding Manage ADL indepentdly: Yes Discussed with patient/patients family involved in decision making: Primary Family/Support Person Name and Phone Number: Living Arrangement: Home Other living arrangement: Address of living arrangement: [address] [place] [id number] Funding Resources: Self Pay Has patient been referred to [facility]? Nursing informed of discharge plan: No CHP referral sent? No CM medication request completed (if appropriate): N/A PCP: Yes Transportation: Taxi Cab Voucher Discharge Medications Will the patient be able to obtain his medications? Yes Does the patient have transportation to to obtain the prescription medications? Yes CM Medication Request completed (if appropriate): [place] of RN informed: Bowen Expected discharge date: 06/02/2020 Time: Afternoon Additional Information: Nursing to notify CM when patient ready to d/c this afternoon so lyft ride can be arranged CM/SW Name & Contact number: KRISTINE Hollis BSN, KRISTINE [email or web address] O: [phone] C: [phone] (not for patient use) The following information has been provided to the facility noted above: reason for the patient discharge or transfer; patients physical and psychosocial status; summary of care, treatment, servicesprovided to patient; and the patient progress toward goals. Christiana Puentes MD - 05/27/2020 9:07 PM GARYTBrirachana Progress Note: 05/27/20 9:07 Pt with complaints of chest pain rating an 9/10 pressure like sensation (s/p PCI x2). States his pain is increased from his baseline throughout the day of 6- 7/10. VSS. Given NTG x2, pain decreased to 8/10. Pt stating CP is substernal with some pain in his back and a pressure like sensation not as bad when admitted but still uncomfortable. Pain is localize to the middle of chest without radiation as apposed to when admitted. Troponins, CK, BMP and EKG obtained. EKG did not demonstrate significant changes from prior. Troponin 0.087 which was elevated from admission of 0.012. CK: 57, CK-MB came back at 0.39 within normal limits. Patient given Morphine 2 mg x2 (decreased pain to 6/10) and troponins and CK were trended. Repeat troponins were without significant elevation of 0.089 and CK: 52, CK-MB within normal of 0.27. Will continue to monitor and assess CP. Per notes patient has had CP since nitro drip was discontinued. Will follow up with day team regarding any medication adjustments. Christiana Webster M.D. Department of Internal Medicine PGY-1, [place] Team Doctor's Number: [id number] Pager: [phone] THAndrea velásquez DO - 05/27/2020 12:06 PM CDT White Team Acceptance Note Date of Service: 05/27/2020 12:06 Chief Complaint: chest pain 24-HOUR EVENTS: - [facility] with PCI x2 yesterday - Transfer to [place] Team SUBJECTIVE: Still experiencing substernal chest pain when moving but resolves at rest. Pain has been present some since stopping the nitro drip. PHYSICAL EXAM: Vitals: 05/27/20 0700 05/27/20 0800 05/27/20 1000 05/27/20 1022 BP: 131/78 (!) 142/82 134/70 123/71 Pulse: 86 84 68 72 Resp: 12 14 11 10 Temp: TempSrc: SpO2: 94% 95% 93% 93% Weight: Height: Intake/Output Summary (Last 24 hours) at 05/27/2020 1206 Last data filed at 05/27/2020 1000 Gross per 24 hour Intake 208 ml Output 2900 ml Net -2692 ml General: alert and oriented x 4; no apparent distress HEENT: pupils equal, round, reactive to light; extraocular movements intact; oropharynx clear; moistmucous membranes Lungs: clear to auscultation bilaterally Cardio: S1, S2 normal; no murmurs, rubs or gallops Abdomen: soft; non-tender; non-distended; normoactive bowel sounds Extremities: no cyanosis, clubbing or edema, R foot mild contracture LABS/IMAGING - reviewed, pertinent results as below: Chart Review: [facility] Findings: Coronary dominance: right Left main: Large, patent LAD: Large proximal mild disease then 70% (IVUS indicative of fibrocalcific plaque; 3.5 [place] Ball[place]; 3.0 x 32 mm Synergy Rx YUE; 4.0 NC; 0% residual stenosis) at D1 take-off, mid mild disease then 30-40%, distal vessel is of small caliber D1: Large, mild disease D2: Small D3: Small LCX: Large, proximal proximal mild LI, mid 20%, then mid to distal mild LI OM1: Small to medium size, mild disease OM2: Large, mild disease OM3: Small RCA: Large, dominant, proximal mild disease, mid 70% (IVUS indicative of fibrous plaque; 3.5 [place]; 4.0 x 16 mm Synergy Rx YUE; 4.5 NC; 0% residual stenosis), mid to distal focal 70% (IVUS indicative of fibrous plaque; 3.5 [place]; 4.0 x 16 mm Synergy Rx YUE; 4.5 NC; 0% residual stenosis) , distal 50% PDA: Large, mild disease PLB: Medium size, mild LI Impression: 1. Severe m and d RCA disease. Successful PCI with 4.0 x 16 mm Synergy Rx YUE x 2 2. Severe pLAD disease. Successful PCI with 3.0 x 32 mm Synergy Rx YUE Echo 05/24/20 Interpretation Summary A two-dimensional transthoracic echocardiogram with M-mode and Doppler was performed. The study was technically limited. There is no comparison study available. Ejection Fraction = 60-65%. The left ventricular wall motion is normal. Diastolic dysfunction. The left atrium is mildly dilated. Estimated RA pressure is 5-10 mmHg. Insufficient Tricuspid regurgitation jet to estimate RVSP. ASSESSMENT/PLAN Brett Kramer is a 39 year old male admitted to the hospital with: Unstable angina CAD (s/p PCI of mRCA, dRCA, and pLAD) DM2 (Hgb A1c 9.7) Family history of premature CAD HTN | HLD Patient continued to report mild chest pain and BOWEN overnight after PCI. Imdur dose was advanced to better control angina with some improvement. Patient's hemodynamics will withstand advancing BB and will consider increasing metoprolol to 100 Bid if symptoms - C/w ASA, Plavix, and atorvastatin 80mg qHS - C/w Imdur to 120mg qd (consider increasing as tolerated) - Increase metoprolol 100mg BID to help with angina - C/w SSI. Hold home oral DM meds - Start lisinopril 2.5mg qd Severe hypertriglyceridemia failed statin therapy Hx of levels over 1000. 587 this admission. - Fenofibrate 67mg daily Complex regional pain syndrome - C/w robaxin and gabapentin PAIN: Controlled Prophylaxis: DVT- heparin Stress Ulcer: no indication for prophylaxis Code Status: addressed: full Disposition Anticipated Discharge Date : 05/28/20 Barriers to Discharge: Angina Andrea Cano, DO PGY2 Internal Medicine [place] Team Pager# [phone] END OF DAILY PROGRESS NOTE HOSPITAL COURSE Brett Kramer is a 39 y.o male with PMH of DM (A1c: 9.7) HTN, hx of PE (2014on Xarelto for 1 year)and complex regional pain syndrome presenting with unstable angina. Patient was transferred to CCU for nitro gtt given persistent chest pain. LHC showed mLAD and m-dRCA disease and CT surgery was c onsulted for possible CABG given two vessel disease in diabetic. Patient opted to undergo LHC with PCI of mRCA, dRCA, and pLAD disease. TTE with normal EF. She is stable to transfer to floor for medical optimization. CURRENT MEDICATIONS - reviewed. Current Facility-Administered Medications Medication Dose Route Frequency Last Rate Last Dose HYDROcodone-acetaminophen (NORCO) 10-325 mg tablet 1 tablet 1 tablet Oral Q6HPRN [START ON 05/28/2020] isosorbide mononitrate (IMDUR) 24 hr tablet 120 mg 120 mg Oral DAILY lisinopriL (PRINIVIL,ZESTRIL) tablet 2.5 mg 2.5 mg Oral DAILY clopidogreL (PLAVIX) tablet 75 mg 75 mg Oral DAILY 75 mg at 05/27/20 0715 metoprolol tartrate (LOPRESSOR) tablet 75 mg 75 mg Oral BID 75 mg at 05/27/20 0715 Sliding Scale Insulin - Aspart (NOVOLOG) + Fsbg Testing Subcutaneous TID MEALS+HS Stopped at1 0800 aspirin chewable tablet 81 mg 81 mg Oral DAILY 81 mg at 05/27/20 0715 atorvastatin (LIPITOR) tablet 80 mg 80 mg Oral DAILY 80 mg at 05/27/20 0715 dextrose 50 % in water (D50W) injection 25 mL 25 mL Slow IV Push PRN glucagon (GLUCAGEN DIAGNOSTIC KIT) injection 1 mg 1 mg Intramuscular PRN acetaminophen (TYLENOL) tablet 650 mg 650 mg Oral Q6HPRN fluticasone propionate 50 mcg/actuation nasal spray 1 [place] 1 [place] Nasal DAILY 1 [place] at 05/27/20 0717 gabapentin (NEURONTIN) capsule 600 mg 600 mg Oral TID 600 mg at 05/27/20 0715 methocarbamoL (ROBAXIN) tablet 750 mg 750 mg Oral QID 750 mg at 05/27/20 0715 nitroglycerin (NITROSTAT) sublingual tablet 0.4 mg 0.4 mg Sublingual Q5MIN PRN Kelley Irby MD - 05/27/2020 11:01 AM CDT CCU Transfer Note Date of Service: 05/27/2020 11:01 Days Since Admission: 2 Chief Complaint: chest pain 24-HOUR EVENTS: - s/p LHC with PCI x2 yesterday SUBJECTIVE: Patient had mild dyspnea with exertion yesterday but overall improved. OBJECTIVE: Vitals: Temp: [36.1 C (97 F)-36.4 C (97.5 F)] Heart Rate (monitor): [68-96] Pulse: [68-96] Resp: [10-27] BP: (121-165)/(70-104) MAP (mmHg): [84-123] O2: on 2L NC Physical Exam: Gen: Well-developed, well-nourished, no acute distress Cardio: Normal S1 and S2, RRR, no murmurs, no JVD Respiratory: Clear to auscultation bilaterally, no crackles or wheezes GI: Soft, nontender, non-distended abdomen, +BS LE: no peripheral edema, warm LABS/IMAGING - reviewed ASSESSMENT/PLAN Brett Kramer is a 39 year old male admitted to the hospital with: Unstable angina CAD (s/p PCI of mRCA, dRCA, and pLAD) DM2 (Hgb A1c 9.7) Family history of premature CAD HTN | HLD Patient continues to report mild chest pain and BOWEN overnight after PCI. Will medically optimize to treat anginal symptoms. - C/w ASA, Plavix, and atorvastatin 80mg qHS - Increase Imdur to 120mg qd. - C/w metoprolol 75mg BID - C/w SSI. Hold home oral DM meds - Start lisinopril 2.5mg qd Complex regional pain syndrome - C/w robaxin and gabapentin Pain: Uncontrolled Nitro gt Prophylaxis: DVT- heparin Stress Ulcer: no indication for prophylaxis Code Status: addressed: FULL Kelley Tracy MD END OF DAILY PROGRESS NOTE HOSPITAL COURSE Brett Kramer is a 39 y.o male with PMH of DM (A1c: 9.7) HTN, hx of PE (2013 on Xarelto for 1 year) and complex regional pain syndrome presenting with unstable angina. Patient was transferred to CCU for nitro gtt given persistent chest pain. LHC showed mLAD and m-dRCA disease and CT surgery was consulted for possible CABG given two vessel disease in diabetic. Patient opted to undergo LHC with PCIof mRCA, dRCA, and pLAD disease. TTE with normal EF. She is stable to transfer to floor for medical optimization. CURRENT MEDICATIONS - reviewed. Current Facility-Administered Medications Medication Dose Route Frequency Last Rate Last Dose HYDROcodone-acetaminophen (NORCO) 10-325 mg tablet 1 tablet 1 tablet Oral Q6HPRN clopidogreL (PLAVIX) tablet 75 mg 75 mg Oral DAILY 75 mg at 05/27/20 0715 isosorbide mononitrate (IMDUR) 24 hr tablet 60 mg 60 mg Oral DAILY 60 mg at 05/27/20 0715 metoprolol tartrate (LOPRESSOR) tablet 75 mg 75 mg Oral BID 75 mg at 05/27/20 0715 Sliding Scale Insulin - Aspart (NOVOLOG) + Fsbg Testing Subcutaneous TID MEALS+HS Stopped at10 0800 aspirin chewable tablet 81 mg 81 mg Oral DAILY 81 mg at 05/27/20 0715 atorvastatin (LIPITOR) tablet 80 mg 80 mg Oral DAILY 80 mg at 05/27/20 0715 dextrose 50 % in water (D50W) injection 25 mL 25 mL Slow IV Push PRN glucagon (GLUCAGEN DIAGNOSTIC KIT) injection 1 mg 1 mg Intramuscular PRN acetaminophen (TYLENOL) tablet 650 mg 650 mg Oral Q6HPRN fluticasone propionate 50 mcg/actuation nasal spray 1 [place] 1 [place] Nasal DAILY 1 [place] at 05/27/20 0717 gabapentin (NEURONTIN) capsule 600 mg 600 mg Oral TID 600 mg at 05/27/20 0715 methocarbamoL (ROBAXIN) tablet 750 mg 750 mg Oral QID 750 mg at 05/27/20 0715 nitroglycerin (NITROSTAT) sublingual tablet 0.4 mg 0.4 mg Sublingual Q5MIN PRN ondansetron (ZOFRAN (PF)) injection 4 mg 4 mg Slow IV Push Q4HPRN 4 mg at 05/25/20 1655 Associated attestation - Jean Almanzar MD - 05/28/2020 10:39 AM CDT Patient seen, examined and interviewed by myself. EMR and chart reviewed. I actively participated in the decision-making process. I read Dr. Tracy note, agree with findings and recommendations. I spent more than 35 minutes. Jean Almanzar MD Upholstery Instructor Section of Cardiology, Advanced Heart Failure/Mechanical Circulatory Support/Transplant. Date of Service: 05/27/2020 Kelley Tracy MD - 05/26/2020 9:12 AM CDT CCU Progress Note Date of Service: 05/26/2020 09:12 Days Since Admission: 1 Chief Complaint: chest pain 24-HOUR EVENTS: - Increased nitro gtt due to persistent chest pain - Tele: SR, trending 70s-80s SUBJECTIVE: Patient continued to have chest pain and BOWEN with moderate improvement with titrating nitro gtt. He understands that he would have more benefit with CABG due to diabetes, young age, and severity of disease but would like to continue with PCI. OBJECTIVE: Vitals: Temp: [35.8 C (96.5 F)-36.2 C (97.1 F)] Heart Rate (monitor): [69-217] Pulse: [69-91] Resp: [0-17] BP: (117-156)/(69-101) MAP (mmHg): [82-104] O2: on 2L NC Physical Exam: Gen: Well-developed, well-nourished, no acute distress Cardio: Normal S1 and S2, RRR, no murmurs, no JVD Respiratory: Clear to auscultation bilaterally, no crackles or wheezes GI: Soft, nontender, non-distended abdomen, +BS LE: no peripheral edema, warm LABS/IMAGING - reviewed ASSESSMENT/PLAN Brett Kramer is a 39 year old male admitted to the hospital with: Unstable angina CAD (mLAD, m-dRCA) DM2 (Hgb A1c 9.7) Family history of premature CAD HTN | HLD Although patient would have greater benefit from CABG, he would like to proceed with PCI and understands risks/benefits of each option. - Load with Plavix now - C/w ASA and atorvastatin 80mg qHS - C/w heparin gtt until PCI today - Increase Imdur to 60mg qd. Wean nitro gtt as tolerated - Increase metoprolol 75mg BID - Follow-up LHC recs - C/w SSI. Hold home oral DM meds Complex regional pain syndrome - C/w robaxin and gabapentin Pain: Uncontrolled Nitro gt Prophylaxis: DVT- heparin Stress Ulcer: no indication for prophylaxis Code Status: addressed: FULL Kelley Tracy MD END OF DAILY PROGRESS NOTE HOSPITAL COURSE Brett Kramer is a 39 y.o male with PMH of DM (A1c: 9.7) HTN, hx of PE (2013 on Xarelto for 1 year) and complex regional pain syndrome presenting with unstable angina. Patient was transferred to CCU for nitro gtt given persistent chest pain. LHC showed mLAD and m-dRCA disease and CT surgery was consulted for possible CABG. Per patient preference, pursuing PCI instead. CURRENT MEDICATIONS - reviewed. Current Facility-Administered Medications Medication Dose Route Frequency Last Rate Last Dose clopidogreL (PLAVIX) tablet 600 mg 600 mg Oral ONCE isosorbide mononitrate (IMDUR) 24 hr tablet 60 mg 60 mg Oral DAILY 60 mg at 05/26/20 0732 metoprolol tartrate (LOPRESSOR) tablet 75 mg 75 mg Oral BID 75 mg at 05/26/20 0731 HYDROcodone-acetaminophen (NORCO) 10-325 mg tablet 1 tablet 1 tablet Oral Q4HPRN 1 tablet at 05/26/20 0549 morpHINE injection 2 mg 2 mg Slow IV Push Q6HPRN 2 mg at 05/26/20 0732 Sliding Scale Insulin - Aspart (NOVOLOG) + Fsbg Testing Subcutaneous TID MEALS+HS Stopped at1 0800 aspirin chewable tablet 81 mg 81 mg Oral DAILY 81 mg at 05/26/20 0731 atorvastatin (LIPITOR) tablet 80 mg 80 mg Oral DAILY 80 mg at 05/26/20 0731 dextrose 50 % in water (D50W) injection 25 mL 25 mL Slow IV Push PRN glucagon (GLUCAGEN DIAGNOSTIC KIT) injection 1 mg 1 mg Intramuscular PRN heparin (1,000 unit/mL, 10 mL vial) for Rebolusing 3,000 Units Slow IV Push FOR REBOLUSING 3,000 Units at 05/24/20 1845 heparin 25,000 Units/250 mL (Premixed Bag) in 0.45 % NS 1,000 Units/hr IV Infusion TITRATE 10 mL/hr at 05/26/20 0533 1,000 Units/hr at 05/26/20 0533 nitroglycerin 50 mg in D5W 250 mL infusion RTU 5 mcg/min IV Infusion CONTINUOUS 9 mL/hr at 05/25/20 2130 30 mcg/min at 05/25/20 2130 acetaminophen (TYLENOL) tablet 650 mg 650 mg Oral Q6HPRN fluticasone propionate 50 mcg/actuation nasal spray 1 [place] 1 [place] Nasal DAILY 1 [place] at 05/26/20 0732 gabapentin (NEURONTIN) capsule 600 mg 600 mg Oral TID 600 mg at 05/26/20 0732 hydralAZINE (APRESOLINE) injection 10 mg 10 mg Slow IV Push Q6HPRN methocarbamoL (ROBAXIN) tablet 750 mg 750 mg Oral QID 750 mg at 05/26/20 0732 nitroglycerin (NITROSTAT) sublingual tablet 0.4 mg 0.4 mg Sublingual Q5MIN PRN ondansetron (ZOFRAN (PF)) injection 4 mg 4 mg Slow IV Push Q4HPRN 4 mg at 05/25/20 1655 Associated attestation - Jean Almanzar MD - 05/26/2020 1:59 PM CDT Patient seen, examined and interviewed by myself. EMR and chart reviewed. I actively participated in the decision-making process. I read Dr. Tracy note, agree with findings and recommendations. I spent more than 35 minutes. Jean Almanzar MD Upholstery Instructor Section of Cardiology, Advanced Heart Failure/Mechanical Circulatory Support/Transplant. Date of Service: 05/26/2020 Jamir Brandon RN - 05/25/2020 3:56 PM CDTCARE COORDINATOR NOTE CC spoke with patient at bedside and provided [facility] resources/ facts sheet and [facility] application and provided instructions for use. Jamir BALLN, RN, CCRN Networking Specialist [facility] Care Management [email or web address] [phone] signed by Jamir Brandon RN at 05/25/2020 3:56 PM [email or web address] blackwood RN - 05/25/2020 2:52 PM CDTI, Jean Almanzar MD, after reviewing this case with the Four Slide Machine Operator, I concur this case is appro priate for inpatient admission. The change to inpatient admission is based on the level of care thispatient is receiving, medical necessity, risks associated and the expected duration of stay. The inpatient admission order has been entered. Associated attestation - Jean Almanzar MD - 05/25/2020 2:54 PM CDT Jean Almanzar MD Upholstery Instructorlithograph press operator tinware Advanced Heart Failure / Mechanical Circulatory Support / Transplant Division of Cardiology, Department of Internal Medicine. Jamir Brandon RN - 05/25/2020 11:21 AM CDTCARE COORDINATOR NOTE CC informed by bedside RN that patient is stated that he wants to leave AMA because he has personal affairs to attend to. CC spoke with patient at bedside regarding social concerns. Patient stated thathe has things he has to "lock up" at home and he needed to "get inside of the safe at the bank". CC explained role of Care Management Dept. And offered assistance in matters discussed. Patient declinedassistance at this time. Upon further discussion patient stated that he is aware he has a potential blockage in his heart and would be open to staying in hospital and receiving a stent if he is a candidate. However, if he needs higher level of intervention he will likely choose to leave AMA to attend [facility] affairs first. CC inquired about family support to perhaps provide assistance. Patient stated that he has a sister that lives in [facility] but she is currently out of town in [place] and will not return for approximately 2 weeks. Patient stated that he has other family members in the [place] but he no longer speaks to them. Patient verbalized that he has help from his 2 neighbors listed in demographics sheetbut stated he cannot rely on them to assist with his current needs/ concerns. CC left contact information with patient if further assistance is needed. Patient was appreciative of visit. CC informed primary team (CCU) resident of conversation with patient. CC/SW to follow and assist with ongoing discharge needs. Jamir RAY, RN, CCRN Networking Specialist [facility] Care Management [email or web address] [phone] signed by Jamir Brandon RN at 05/25/2020 11:31 AM Gurpreet Larson MD - 05/25/2020 7:48 AM CDT CCU TEAM PROGRESS NOTE Date of Service: 05/25/2020 13:02 Chief Complaint: angina 24 Hour Events: Admitted to CCU LHC: 3VD, CTS consulted Subjective: Patient reports that pain is better controlled now on nitro gtt. He had LHc that showed severe pLAD + mRCA disease, recommended eval for CABG by CTS. Patient expressed his desires to not persue surgery, he would like to go home. Objective: I/O: Intake/Output Summary (Last 24 hours) at 05/25/2020 1302 Last data filed at 05/25/2020 1023 Gross per 24 hour Intake 372 ml Output 1750 ml Net -1378 ml Temp: [36.1 C (96.9 F)-36.6 C (97.9 F)] Heart Rate (monitor): [66-275] Pulse: [66-85] Resp: [0-29] BP: (124-169)/(81-108) MAP (mmHg): [98-118] General: no acute distress and alert Eyes: PERRL and EOMI ENT: pharynx normal, no thyromegaly Cardiovascular: Heart regular, rate, rhythm, no murmurs; no edema Respiratory: clear to auscultation, no respiratory distress GI: abd soft, non-tender, non-distended, +BS, no HSM Musc: no spinal or paraspinal TTP, no joint effusions, strength 5/5 x4, gait normal Skin: intact and warm, dry Neuro: alert, oriented Psych: cooperative and mood/affect normal Heme / Lymph / Imm: no lymphadenopathy Labs: LABS/IMAGING - reviewed A!C .7 Imaging: Reviewed TTE 05/24/2020: The left ventricle is normal in size. There is normal left ventricular wall thickness. Left ventricular systolic function is normal. Ejection Fraction = 60-65%. Diastolic dysfunction. The left ventricular wall motion is marta ASSESSMENT/PLAN Brett Kramer is a 39 year old male with PMH as listed above, admitted to the hospital with: UA on nitro gtt, improved Severe CAD, pLAD, m-d RCA - c/s CTS - C/w ASA - SSI - Lipitor 80 - c/w Gabapentin 600 TID - restart heparin gtt after removing TR band - start on imdur 30 mg daily - c/w metoprolol 50 mg BID Code Status: addressed: full code Gurpreet Johns MD Dry Cleaning Manager Recent Results (from the past 24 hour(s)) aPTT Collection Time: 05/24/20 3:58 PM Result Value Ref Range APTT Patient 35 23 - 38 Seconds POCT GLUCOSE (AUTOMATED) Collection Time: 05/24/20 6:36 PM Result Value Ref Range POCT GLU 200 (H) 70 - 110 mg/dL POCT GLUCOSE (AUTOMATED) Collection Time: 05/25/20 12:22 AM Result Value Ref Range POCT GLU 210 (H) 70 - 110 mg/dL aPTT (for use with Heparin Practice Guideline). Note: Draw and Send all Lab STAT. Collection Time: 05/25/20 12:23 AM Result Value Ref Range APTT Patient 50 (H) 26 - 36 Seconds POCT GLUCOSE (AUTOMATED) Collection Time: 05/25/20 4:35 AM Result Value Ref Range POCT GLU 318 (H) 70 - 110 mg/dL BASIC METABOLIC PANEL (NA, K, CL, CO2, GLUCOSE, BUN, CREATININE, CA) Collection Time: 05/25/20 4:37 AM Result Value Ref Range NA 135 135 - 145 mmol/L K 4.5 3.5 - 5.0 mmol/L CL 99 98 - 108 mmol/L CO2 TOTAL 28 23 - 31 mmol/L AGAP 8 2 - 16 BUN 20 7 - 23 mg/dL GLUCOSE 174 (H) 70 - 110 mg/dL CREATININE 0.94 0.60 - 1.25 mg/dL CALCIUM 8.5 (L) 8.6 - 10.6 mg/dL eGFR Calculation (Non-) 88.9 mL/min/1.73m2 eGFR Calculation () 107.7 mL/min/1.73m2 MAGNESIUM Collection Time: 05/25/20 4:37 AM Result Value Ref Range MAGNESIUM 2.0 1.7 - 2.4 mg/dL TROPONIN I Collection Time: 05/25/20 4:37 AM Result Value Ref Range TROPONIN I 0.012 <=0.034 ng/mL aPTT (for use with Heparin Practice Guideline). Note: Draw and Send all Lab STAT. Collection Time: 05/25/20 7:09 AM Result Value Ref Range APTT Patient 50 (H) 26 - 36 Seconds PROTHROMBIN TIME / INR Collection Time: 05/25/20 7:09 AM Result Value Ref Range PROTIME PATIENT 10.8 10.1 - 12.6 Seconds INR 1.0 POCT GLUCOSE (AUTOMATED) Collection Time: 05/25/20 7:49 AM Result Value Ref Range POCT GLU 140 (H) 70 - 110 mg/dL aPTT (for use with Heparin Practice Guideline). Note: Draw and Send all Lab STAT. Collection Time: 05/25/20 10:35 AM Result Value Ref Range APTT Patient 31 26 - 36 Seconds POCT GLUCOSE (AUTOMATED) Collection Time: 05/25/20 11:48 AM Result Value Ref Range POCT GLU 175 (H) 70 - 110 mg/dL No current facility-administered medications on file prior to encounter. Current Outpatient Medications on File Prior to Encounter Medication Sig Dispense Refill buprenorphine 10 mcg/hour patch Apply 10 Patches to skin. diclofenac 50 mg EC tablet Take 50 mg by mouth daily. fluticasone propionate (FLONASE ALLERGY RELIEF) 50 mcg/actuation nasal spray Use 1 [place] in eachnostril daily. metFORMIN 1,000 mg tablet Take 1,000 mg by mouth 2 (two) times daily with meals. metoprolol tartrate 50 mg tablet Take 50 mg by mouth 2 (two) times daily. methocarbamol (ROBAXIN) 500 mg tablet Take 500 mg by mouth 2 (two) times daily. gabapentin 300 mg capsule Take 1 capsule by mouth 2 (two) times daily. (Patient taking differently: Take 600 mg by mouth 3 (three) times daily.) 30 capsule 1 ibuprofen 600 mg tablet Take 1 tablet by mouth every 8 (eight) hours as needed for Pain (scale 4-6). 30 tablet 1 aspirin 325 mg tablet Take 1 tablet by mouth 2 (two) times daily. 30 tablet 0 HYDROcodone-acetaminophen (NORCO) 10-325 mg tablet Take 1 tablet by mouth every 6 (six) hours asneeded for Pain (scale 4-6) or Pain (scale 7-10). 90 tablet 0 predniSONE 10 mg tablet 3 tablets daily po for one week, then 2 tablets daily po until return 50tablet 3 amoxicillin-pot clavulanate 500 mg 500-125 mg tablet Take 1 tablet by mouth 3 (three) times daily. 21 tablet 0 artificial tears,hypromellose, 0.5 % ophthalmic drops Place 1 Drop in both eyes 4 (four) times daily. 15 mL 3 dorzolamide-timolol 22.3-6.8 mg/mL ophthalmic drops Place 1 Drop in right eye 2 (two) times daily. 10 mL 3 doxycycline 100 mg capsule Take 1 capsule by mouth every 12 (twelve) hours. 14 capsule 0 insulin aspart U-100 (NOVOLOG FLEXPEN U-100 INSULIN) 100 unit/mL (3 mL) injection inject 10 Units under the skin 3 (three) times daily before meals. 3 mL 5 insulin aspart U-100 (NOVOLOG FLEXPEN U-100 INSULIN) 100 unit/mL (3 mL) injection inject 10 Units under the skin 3 (three) times daily before meals. 3 mL 3 Insulin Glargine (LANTUS SOLOSTAR U-100 INSULIN) 100 unit/mL (3 mL) injection inject 27 Units under the skin daily. 15 mL 3 Insulin Glargine (LANTUS SOLOSTAR U-100 INSULIN) 100 unit/mL (3 mL) injection inject 27 Units under the skin daily. 15 mL 3 omeprazole 40 mg capsule Take 1 capsule by mouth daily. 90 capsule 4 predniSONE 20 mg tablet Take 3 tablets by mouth daily. 21 tablet 0 predniSONE 20 mg tablet Take 3 tablets by mouth daily. 21 tablet 0 Associated attestation - Jean Almanzar MD - 05/25/2020 2:50 PM CDT Patient seen, examined and interviewed by myself. EMR and chart reviewed. I actively participated in the decision-making process. I read Dr. Johns note, agree with findings and recommendations. Ispent more than 35 minutes. Jean Almanzar MD Upholstery Instructor Section of Cardiology, Advanced Heart Failure/Mechanical Circulatory Support/Transplant. Date of Service: 05/25/2020 Logan Seth MD - 05/24/2020 7:00 PM CDT [facility] Hospitalist Progress Note SUBJECTIVE: Still with exertional chest pain. CURRENT MEDICATIONS - reviewed. Current Facility-Administered Medications Medication Dose Route Frequency Last Rate Last Dose aspirin chewable tablet 81 mg 81 mg Oral DAILY 81 mg at 05/24/20 0835 atorvastatin (LIPITOR) tablet 80 mg 80 mg Oral DAILY 80 mg at 05/24/20 0835 heparin (1,000 unit/mL, 10 mL vial) for Rebolusing 3,000 Units Slow IV Push FOR REBOLUSING 3,000 Units at 05/24/20 1845 heparin 25,000 Units/250 mL (Premixed Bag) in 0.45 % NS 1,000 Units/hr IV Infusion TITRATE 12 mL/hr at 05/24/20 1845 1,200 Units/hr at 05/24/20 1845 acetaminophen (TYLENOL) tablet 650 mg 650 mg Oral Q6HPRN fluticasone propionate 50 mcg/actuation nasal spray 1 [place] 1 [place] Nasal DAILY 1 [place] at 05/24/20 0834 gabapentin (NEURONTIN) capsule 600 mg 600 mg Oral TID 600 mg at 05/24/20 1438 glipiZIDE (GLUCOTROL) tablet 5 mg 5 mg Oral BIDAC 5 mg at 05/24/20 1556 hydralAZINE (APRESOLINE) injection 10 mg 10 mg Slow IV Push Q6HPRN HYDROcodone-acetaminophen (NORCO) 10-325 mg tablet 1 tablet 1 tablet Oral Q6HPRN 1 tablet at 05/24/20 1851 methocarbamoL (ROBAXIN) tablet 750 mg 750 mg Oral QID 750 mg at 05/24/20 1556 metoprolol tartrate (LOPRESSOR) tablet 50 mg 50 mg Oral BID 50 mg at 05/24/20 0835 morpHINE injection 2 mg 2 mg Slow IV Push Q4HPRN 2 mg at 05/24/20 1438 nitroglycerin (NITROSTAT) sublingual tablet 0.4 mg 0.4 mg Sublingual Q5MIN PRN ondansetron (ZOFRAN (PF)) injection 4 mg 4 mg Slow IV Push Q4HPRN 4 mg at 05/24/20 0548 Sliding Scale Insulin - Aspart (NOVOLOG) + Fsbg Testing Subcutaneous AC+HS 2 Units at 05/24/20 1844 PHYSICAL EXAM: BP (!) 146/89 (BP Location: Left arm, Patient Position: Supine) | Pulse 81 | Temp 36.1 C (96.9 F) (Oral) | Resp 16 | Ht 5' 9" (1.753 m) | Wt 252 lb 8 oz (114.5 kg) | SpO2 96% | BMI 37.29 kg/m General: No respiratory distress HEENT: Anicteric sclerae, NCAT Lungs: Symmetric expansion Musculoskeletal: Normal muscle mass, no synovitis Skin: No rash or lesions Neuro: AAOx3, no focal deficits Psych: Normal affect LABS/IMAGING - reviewed, pertinent results as below: CBC BMP PT/INR WBC (10*3/L) Date Value 05/23/2020 9.88 NA (mmol/L) Date Value 05/23/2020 133 (L) No results found for: PT RBC (10*6/L) Date Value 05/23/2020 5.13 K (mmol/L) Date Value 05/23/2020 4.8 INR (no units) Date Value 10/31/2019 1.0 PLT (10*3/L) Date Value 05/23/2020 259 CALCIUM (mg/dL) Date Value 05/23/2020 9.5 HGB (g/dL) Date Value 05/23/2020 16.3 CL (mmol/L) Date Value 05/23/2020 98 aPTT HCT (%) Date Value 05/23/2020 46.5 BUN (mg/dL) Date Value 05/23/2020 19 APTT Patient (Seconds) Date Value 05/24/2020 35 CREATININE (mg/dL) Date Value 05/23/2020 0.72 IMAGING- Hospital Encounter on 05/23/20 CT CHEST PULMONARY ANGIOGRAM Narrative HISTORY: Shortness of breath, rule out P.E. TECHNIQUE: Contrast-enhanced 64-mutidetector CT scan of the chest was completed with intravenous injection of Omnipaque-350 non ionic contrast medium. Subsequently numerous sagittal, coronal and MIP reformations were generated. FINDINGS: Comparison is made with a recent CT scan of the chest dated 10/31/2019. Small portions of the thyroid gland included showed no abnormality. Trachea and central bronchial airways appear normal. No acute pulmonary thromboembolism detected. Lungs are free of acute infiltrates. No pulmonary nodules seen. No pleural or pericardial effusion, pneumothorax or pneumomediastinum. No aortic aneurysm or dissection. Slightly prominent lymph nodes are seen in both right and left south, unchanged when compared with the previous study. Main pulmonary artery is measuring 3 cm today. Atherosclerosis is noted with calcifications in LAD coronary artery, its branches, right coronary as well as LCx coronary arteries. Degenerative changes noted with a rather large osteophytes along the ventral vertebral margins at lower thoracic levels. CONCLUSIONS: 1. No acute pulmonary thromboembolism. 2. Triple vessel coronary atherosclerosis. Chest 1 View Narrative HISTORY: SOB. TECHNIQUE: Portable AP erect view of the chest is obtained. Comparison made with 05/15/2019 study. FINDINGS: No acute pneumonia. No pneumothorax or pleural effusion or pulmonary congestion detected. Cardiac size is within normal limits. Central pulmonary arteries are slightly dilated without amilcar acute interstitial pulmonary edema. CONCLUSIONS: No signs of acute cardiopulmonary disease. ASSESSMENT/PLAN Brett Kramer is a 39 year old male with PMH as listed above, admitted to the hospital with: Unstable angina EKG showed lateral ST changes, troponin x3 neg. Hx of pulmonary embolism, CT PE this admission negative except for coronary calcifications. Multiple CAD risk factors (obese, DM, HTN, family hx premature CAD) Start IV heparin drip, aspirin, metoprolol, high-dose statin Echo shows preserved EF Cardiology consult Dr. Correa on board - recommends transfer for cardiac cath. Stable for telemetry bed. Prophylaxis: DVT- heparin Stress Ulcer: no indication for prophylaxis Code Status: Full Disposition: Transfer to [facility] Logan Seth MD Christina Sidhu [facility] - 05/24/2020 9:11 AM CDTSubjective Patient ID: Brett Kramer is a 39 year old male. Care Management Social Functional Assessment Patient Name: Brett Kramer Age: [age] year old Sex: male Patient's Previous Admission Date at [facility]: 05/10/2019 Current diagnosis and co-morbidities: CHEST PAIN;SOB Readmission Questions: Was patient discharged from any acute care hospital within the last 30 days: No Social Functional Assessment: Primary language spoken/preferred: Jamaican Mental Status: Alert & Oriented to Person,Place & Time Information given by: Self Patient's support system: Other Name and number of support system: Vivian Genao, friend [phone] and Keiko Genao, friend [phone] Primary District Resource Officer: Self MPOA: No Living Arrangement: Home Address of living arrangement : [address] [place] [id number] Persons living in home: Self Barriers to returning home: None Baseline functional status- ambulation: Independent Functional status-baseline personal care: Independent Baseline functional status- driving: Independent Baseline functional status- grocery shopping: Independent Functional status-baseline housekeeping: Independent Functional status-baseline meal prep: Independent Current functional status same as prior: Yes Do you have a PCP?: Yes Name of PCP: [facility] Agency: No Provider Services: No DME Company: No Equipment: None Hemodialysis: No Community resources utilized: None Funding Resources: Self Pay Prescription coverage plan: Self Pay Pharmacy where meds are filled: Other Other pharmacy: [facility] Anticipated services prior to disharge: Continue Medical Eval Additional Recommendations for DC: Medical clearance, will provide community resources and indigent application Additional info required for discharge planning: Pending medical evaluation Recommended discharge plan: Home SFA Complete: Social Functional Assessment complete: Yes Alcohol Use Screening (AUDIT-C) How often do you have a drink containing alcohol?: Never SCORE: 0 Role of Care Management explained. Any issues or concerns with obtaining/affording your medications at home: no. Are you or your support system able to tile picker medications at discharge: yes. Review of Systems Objective Physical Exam Assessment/Plan Home, will provide community resources and indigent application ADRIANA Vera Lien Searcher - Care Management [facility] [phone] [email or web address] documented in this encounter H&P Notes Shelton Powell MD - 05/24/2020 7:32 PM CDT CCU ADMIT H&P PCP: Omari Thao Date of Service: 05/24/2020 CHIEF COMPLAINT: Chest pain and SOB History of Present Illness Brett Kramer is a 39 y.o male with PMH of DM (A1c: 9.7) HTN, hx of PE (2013 on Xarelto for 1 year) and complex regional pain syndrome who presents with chest pain and SOB. Patient reports onset of chest pain 2 days ago with substernal chest pain with radiation into the left arm. Rates the chest pain as 9/10 and worsens with exertion. Associated symptoms include SOB, nausea and diaphoresis. No improvement in pain with sublingual nitro. Patient with improvement in pain at rest and nitro paste which was applied at [facility] to 7/10. No prior hx of similar chest pain. Family hx of premature CAD with father having an UT before the age of 50. Was prescribed Insulin previously butpatient lost insurance and is only taking Metformin. At [facility], troponin negative. CT PE with significant coronary artery calcification. ECHO: 60-65% with diastolic dysfunction. [facility] Of note, patient was initially admitted to the floor but with continued anginalsymptoms was transferred to CCU for iniation of nitro gtt. PAST MEDICAL HISTORY Past Medical History: Diagnosis Date Complex regional pain syndrome type II of right lower limb DM (diabetes mellitus) History of pulmonary embolus (PE) 2013 HTN (hypertension) Past Surgical History: Procedure Laterality Date ARTHROSCOPIC SHOULDER ROTATOR CUFF REPAIR 10/2017 MASS EXCISION Right 05/14/2019 Surgeon: Diaz Obrien MD; [facility] ORBITOTOMY Right 05/14/2019 Surgeon: Diaz Obrien MD; [facility] Family History Problem Relation Age of Onset Stroke Mother Diabetes Mother Hypertension Mother Diabetes Father Diabetes Brother ALLERGIES No Known Allergies MEDICATIONS No current facility-administered medications on file prior to encounter. Current Outpatient Medications on File Prior to Encounter Medication Sig Dispense Refill buprenorphine 10 mcg/hour patch Apply 10 Patches to skin. diclofenac 50 mg EC tablet Take 50 mg by mouth daily. fluticasone propionate (FLONASE ALLERGY RELIEF) 50 mcg/actuation nasal spray Use 1 [place] in eachnostril daily. metFORMIN 1,000 mg tablet Take 1,000 mg by mouth 2 (two) times daily with meals. metoprolol tartrate 50 mg tablet Take 50 mg by mouth 2 (two) times daily. methocarbamol (ROBAXIN) 500 mg tablet Take 500 mg by mouth 2 (two) times daily. gabapentin 300 mg capsule Take 1 capsule by mouth 2 (two) times daily. (Patient taking differently: Take 600 mg by mouth 3 (three) times daily.) 30 capsule 1 ibuprofen 600 mg tablet Take 1 tablet by mouth every 8 (eight) hours as needed for Pain (scale 4-6). 30 tablet 1 aspirin 325 mg tablet Take 1 tablet by mouth 2 (two) times daily. 30 tablet 0 HYDROcodone-acetaminophen (NORCO) 10-325 mg tablet Take 1 tablet by mouth every 6 (six) hours asneeded for Pain (scale 4-6) or Pain (scale 7-10). 90 tablet 0 predniSONE 10 mg tablet 3 tablets daily po for one week, then 2 tablets daily po until return 50tablet 3 amoxicillin-pot clavulanate 500 mg 500-125 mg tablet Take 1 tablet by mouth 3 (three) times daily. 21 tablet 0 artificial tears,hypromellose, 0.5 % ophthalmic drops Place 1 Drop in both eyes 4 (four) times daily. 15 mL 3 dorzolamide-timolol 22.3-6.8 mg/mL ophthalmic drops Place 1 Drop in right eye 2 (two) times daily. 10 mL 3 doxycycline 100 mg capsule Take 1 capsule by mouth every 12 (twelve) hours. 14 capsule 0 insulin aspart U-100 (NOVOLOG FLEXPEN U-100 INSULIN) 100 unit/mL (3 mL) injection inject 10 Units under the skin 3 (three) times daily before meals. 3 mL 5 insulin aspart U-100 (NOVOLOG FLEXPEN U-100 INSULIN) 100 unit/mL (3 mL) injection inject 10 Units under the skin 3 (three) times daily before meals. 3 mL 3 Insulin Glargine (LANTUS SOLOSTAR U-100 INSULIN) 100 unit/mL (3 mL) injection inject 27 Units under the skin daily. 15 mL 3 Insulin Glargine (LANTUS SOLOSTAR U-100 INSULIN) 100 unit/mL (3 mL) injection inject 27 Units under the skin daily. 15 mL 3 omeprazole 40 mg capsule Take 1 capsule by mouth daily. 90 capsule 4 predniSONE 20 mg tablet Take 3 tablets by mouth daily. 21 tablet 0 predniSONE 20 mg tablet Take 3 tablets by mouth daily. 21 tablet 0 SOCIAL HISTORY Social History Socioeconomic History Marital [...] date: 05/10/1996 Quit date: 07/08/2018 Years since quittin.8 Smokeless tobacco: Former User Tobacco comment: Quit [...] file Gets together: Not on file Attends congregational service: Not on file Active member of [...] Narrative Not on file REVIEW OF SYSTEMS (-)=Negative,(+)=Positive General: (-) fever, (-) chills Skin: negative HEENT: (+) headache Neck: negative Heme: negative Resp: (+) shortness of breath, (+) dyspnea on exertion Cardio: (+) chest pain, (+) palpitations, (-) syncope GI: (+) nausea, (-) abdominal pain, (-) vomiting, (-) diarrhea, (-) constipation : negative Endo: (+) diabetes Neuro: negative Back: negative ROSALINDA: negative Psych: negative PHYSICAL EXAMINATION Temp: [35.9 C (96.7 F)-36.4 C (97.5 F)] Pulse: [72-84] Resp: [16-20] BP: (135-163)/(84-105) MAP (mmHg): [106-108] General: alert and oriented x 4 (person, place, date/time and situation); no apparent distress Neck: supple, no lymphadenopathy, no bruits, no JVD Lungs: clear to auscultation bilaterally Cardio: S1, S2 normal; no murmurs, rubs or gallops Abdomen: soft; non-tender; non-distended; normoactive bowel sounds Extremities: no clubbing, cyanosis, or edema Skin: no rashes Neuro: no focal deficits LABS - reviewed pertinent labs as below: Recent Results (from the past 24 hour(s)) TROPONIN I Collection Time: 05/23/20 9:31 PM Result Value Ref Range TROPONIN I 0.005 <=0.034 ng/mL POCT GLUCOSE (AUTOMATED) Collection Time: 05/24/20 8:01 AM Result Value Ref Range POCT GLU 183 (H) 70 - 110 mg/dL aPTT Collection Time: 05/24/20 9:41 AM Result Value Ref Range APTT Patient 28 23 - 38 Seconds POCT GLUCOSE (AUTOMATED) Collection Time: 05/24/20 11:44 AM Result Value Ref Range POCT GLU 193 (H) 70 - 110 mg/dL aPTT Collection Time: 05/24/20 3:58 PM Result Value Ref Range APTT Patient 35 23 - 38 Seconds POCT GLUCOSE (AUTOMATED) Collection Time: 05/24/20 6:36 PM Result Value Ref Range POCT GLU 200 (H) 70 - 110 mg/dL ASSESSMENT/PLAN Brett Kramer is a 39 year old male with PMH as listed above, admitted to the hospital with: Unstable Angina (OWEN 3) Uncontrolled DM (A1c: 9.7) HTN Hx of Premature CAD in Family Patient presents with chest pain that is concerning of unstable angina. Chest pain unresolved with sublingual nitro and nitro past. Will start patient on Heparin and nitro gtt. Plan for cath tomorrow. - Admit to CCU - ASA + Lipitor - Lopressor 50 mg BID - Heparin gtt - Nitro gtt - NPOpm for LHC tomorrow. Complex Regional Pain Syndrome - c/w home pain meds Pain UncontrolledNorco Prophylaxis: DVT- heparin Stress Ulcer: no indication for prophylaxis Code Status: addressed: FULL Shelton Powell MD Internal Medicine PGY-3 Rony Team #[id number] Associated attestation - Jean Almanzar MD - 05/25/2020 3:01 PM CDT Patient seen, examined and interviewed by myself. EMR and chart reviewed. I actively participated in the decision-making process. I read Dr. Powell note, agree with findings and recommendations. I spent more than 70 minutes. Jean Almanzar MD Upholstery Instructor Cardiology, Advanced Heart Failure / Mechanical Circulatory Support / Transplant. Date of Service: 05/25/2020 Birgit Doss MD - 05/23/2020 8:38 PM CDT MEDICINE ADMIT H&P Date of Service: 05/23/2020 CHIEF COMPLAINT: chest pain History of Present Illness Patient is a 39 year old /White male who presents with complaints of chest pain described as pressure and is new. Symptoms started yesterday. Patient states that CP started yesterday. Patientstates that Symptoms occurring at rest and continuously. Severity: 9 out of 10 without radiation. Patient states that he has been trying peptobismol, but not helping. Symptoms are worse with exertion. Better with pain medication. Other symptoms include diaphoresis, heartburn, nausea, numbness in left arm, orthopnea and palpitations. Patient denies vomiting. Symptoms are unchanged. History of SOB, diagnosed with PE in the past. Similar symptoms. PAST MEDICAL HISTORY Past Medical History: Diagnosis [...] Obrien MD; Location: [facility] Family History Problem Relation Age of Onset Stroke Mother Diabetes Mother Hypertension Mother Diabetes Father Diabetes Brother ALLERGIES No Known Allergies MEDICATIONS No current facility-administered medications on file prior to encounter. Current Outpatient Medications on File Prior to Encounter Medication Sig Dispense Refill buprenorphine 10 mcg/hour patch Apply 10 Patches to skin. diclofenac 50 mg EC tablet Take 50 mg by mouth daily. fluticasone propionate (FLONASE ALLERGY RELIEF) 50 mcg/actuation nasal spray Use 1 [place] in eachnostril daily. metFORMIN 1,000 mg tablet Take 1,000 mg by mouth 2 (two) times daily with meals. metoprolol tartrate 50 mg tablet Take 50 mg by mouth 2 (two) times daily. methocarbamol (ROBAXIN) 500 mg tablet Take 500 mg by mouth 2 (two) times daily. gabapentin 300 mg capsule Take 1 capsule by mouth 2 (two) times daily. (Patient taking differently: Take 600 mg by mouth 3 (three) times daily.) 30 capsule 1 ibuprofen 600 mg tablet Take 1 tablet by mouth every 8 (eight) hours as needed for Pain (scale 4-6). 30 tablet 1 aspirin 325 mg tablet Take 1 tablet by mouth 2 (two) times daily. 30 tablet 0 HYDROcodone-acetaminophen (NORCO) 10-325 mg tablet Take 1 tablet by mouth every 6 (six) hours asneeded for Pain (scale 4-6) or Pain (scale 7-10). 90 tablet 0 predniSONE 10 mg tablet 3 tablets daily po for one week, then 2 tablets daily po until return 50tablet 3 amoxicillin-pot clavulanate 500 mg 500-125 mg tablet Take 1 tablet by mouth 3 (three) times daily. 21 tablet 0 artificial tears,hypromellose, 0.5 % ophthalmic drops Place 1 Drop in both eyes 4 (four) times daily. 15 mL 3 dorzolamide-timolol 22.3-6.8 mg/mL ophthalmic drops Place 1 Drop in right eye 2 (two) times daily. 10 mL 3 doxycycline 100 mg capsule Take 1 capsule by mouth every 12 (twelve) hours. 14 capsule 0 insulin aspart U-100 (NOVOLOG FLEXPEN U-100 INSULIN) 100 unit/mL (3 mL) injection inject 10 Units under the skin 3 (three) times daily before meals. 3 mL 5 insulin aspart U-100 (NOVOLOG FLEXPEN U-100 INSULIN) 100 unit/mL (3 mL) injection inject 10 Units under the skin 3 (three) times daily before meals. 3 mL 3 Insulin Glargine (LANTUS SOLOSTAR U-100 INSULIN) 100 unit/mL (3 mL) injection inject 27 Units under the skin daily. 15 mL 3 Insulin Glargine (LANTUS SOLOSTAR U-100 INSULIN) 100 unit/mL (3 mL) injection inject 27 Units under the skin daily. 15 mL 3 omeprazole 40 mg capsule Take 1 capsule by mouth daily. 90 capsule 4 predniSONE 20 mg tablet Take 3 tablets by mouth daily. 21 tablet 0 predniSONE 20 mg tablet Take 3 tablets by mouth daily. 21 tablet 0 SOCIAL HISTORY Social History Socioeconomic History Marital [...] date: 05/10/1996 Quit date: 07/08/2018 Years since quittin.8 Smokeless tobacco: Former User Tobacco comment: Quit [...] file Gets together: Not on file Attends congregational service: Not on file Active member of [...] Narrative Not on file REVIEW OF SYSTEMS (-)=Negative,(+)=Positive General: (-) fever, (-) chills, (-) fatigue, (-) malaise Skin: (-) rash HEENT: (-) headache, (-) nasal discharge, (-) sore throat Neck: (-) difficulty swallowing Heme: (-) bleeding disorder Resp: as stated in the HPI Cardio: as stated in the HPI GI: (+) nausea, (-) abdominal pain, (-) vomiting, (-) diarrhea, (-) constipation : (-) dysuria Endo: (+) diabetes, (-) thyroid disease Neuro: (+) numbness, (+) tingling Back: (-) pain ROSALINDA: (-) muscle pain, (-) joint pain Psych: (-) anxiety, (-) depression PHYSICAL EXAMINATION Vitals: 05/23/20 1630 05/23/20 1700 05/23/20 1755 05/23/20 1957 BP: (!) 159/106 (!) 151/99 (!) 175/94 (!) 156/93 Pulse: 99 104 98 94 Resp: 20 18 18 Temp: 37 C (98.6 F) 36.6 C (97.8 F) TempSrc: Temporal Artery SpO2: 97% 98% 96% 97% Weight: Height: 1.753 m (5' 9") General: alert and oriented; no apparent distress HEENT: normocephalic atraumatic, moist mucous membranes Lungs: clear to auscultation bilaterally Cardio: S1, S2 normal; no murmurs, rubs or gallops Abdomen: soft; non-tender; non-distended; normoactive bowel sounds : not examined Rectal: not examined Extremities: no clubbing, cyanosis, or edema, tenderness right foot Skin: no rashes Neuro: no focal deficits, alert and oriented x 3, cranial nerves II through XII intact LABS - reviewed IMAGING - reviewed EKG- reviewed ASSESSMENT/PLAN Chest pain (05/23/2020) POA: Yes Dyspnea CAD DM2- uncontrolled Dyspepsia Plan: Place in obs tele Consult cardiology ASA PRN nitro and morphine ECHO ordered Trial of GI cocktail Pain control Add glipizide Hold metformin for now and continue at discharge Reconcile home medications SSI as needed for glucose control Hydralazine PRN Further recommendations will depend on patient's hospital course Above assessment and plan discussed at length with the patient, patient expressed full understanding. Questions and concerns addressed. Advanced Care Planning The surrogate decision maker: Vivian Code Status: dairy frozen manager spent:16 minutes documented in this encounter Procedure Notes Pepe Ramires MD - 05/26/2020 6:51 PM CDTProcedure(s): CORONARY ANGIOGRAPHY; IVUS/FFR; PA PRQ TRLUML CORONARY STENT W/ANGIO ADDL ART/BRNCH; PA PRQ TRLUML CORONARY STENT W/ANGIO ADDL ART/BRNCHPre-Procedure Diagnose(s): Coronary artery disease involving quinault coronary artery of quinault heart with unstable angina pectoris Left Heart Cath/Coronary Angiography Date of Service: 05/26/2020 6:55 PM Fellow: Dr. Padilla Faculty: Ike Indication/Diagnosis: Patient with CAD (LAD and RCA) presenting with unstable angina. Accessed by CTS and the plan is to proceed with PCI. Consent source: self Consent type: indications/complications discussed with patient/legal guardian; written consent obtained Time out completed: yes Aseptic technique: Chlorprep Local Anesthesia: 1% lidocaine without epinephrine Sedation: fentanyl 125 mcg, Versed 3 mg Access site: right radial artery Closure Method: TR Band Sterile dressing: yes Complications: none Findings: Coronary dominance: right Left main: Large, patent LAD: Large proximal mild disease then 70% (IVUS indicative of fibrocalcific plaque; 3.5 [place] Balloon; 3.0 x 32 mm Synergy Rx YUE; 4.0 NC; 0% residual stenosis) at D1 take-off, mid mild disease then 30-40%, distal vessel is of small caliber D1: Large, mild disease D2: Small D3: Small LCX: Large, proximal proximal mild LI, mid 20%, then mid to distal mild LI OM1: Small to medium size, mild disease OM2: Large, mild disease OM3: Small RCA: Large, dominant, proximal mild disease, mid 70% (IVUS indicative of fibrous plaque; 3.5 [place] Ball[place]; 4.0 x 16 mm Synergy Rx YUE; 4.5 NC; 0% residual stenosis), mid to distal focal 70% (IVUS indicative of fibrous plaque; 3.5 [place]; 4.0 x 16 mm Synergy Rx YUE; 4.5 NC; 0% residual stenosis) , distal 50% PDA: Large, mild disease PLB: Medium size, mild LI Impression: 1. Severe m and d RCA disease. Successful PCI with 4.0 x 16 mm Synergy Rx YUE x 2 2. Severe pLAD disease. Successful PCI with 3.0 x 32 mm Synergy Rx YUE Plan: 1. Monitor in CCU 2. ASA 81 mg daily 3. Plavix 600 mg load given, continue 75 mg daily 4. Patient on NTG drip 5. Aggressive medical management 6. Findings and plan discussed with patient Pepe Ramires M.D. Interventional Cardiology Pager: [phone] Adonis Escobedo MD - 05/25/2020 9:34 AM CDTProcedure(s): CORONARY ANGIOGRAPHY; LEFT HEART CATHPre-Procedure Diagnose(s): Coronary artery disease involving quinault coronary artery of quinault heart with unstable angina pectorisLeft Heart Cath and Coronary Angiography Date of Service: 05/25/20 Indication/Diagnosis: ACS ([place]/NSTEMI) Fellow: Dr. Campbell Procedure Note: RR, 6F, [place] 4, TR band. Findings: coronary dominance: right left main: Normal LAD: proximal mild LI, mid 70% disease at origin of large diagonal branch, mid to distal mild LI, distally will branch into two small arteries. LCX: Proximal mild LI, mid 30% disease, distal mild LI, OM1 small normal, OM2 medium size mild LI. RCA: Large, dominant, mid eccentric 70% disease then mid to distal 40-50% disease, RPDA large with mild LI. LSCA/DIAZ: Patent LVEDP 33 mmHg. Impression and Plan: - Significant mid LAD, and mid to distal RCA disease, CTS consult for 3 V bypass (DIAZ-LAD, SVG-D, SVG-RPDA) if possible as that diagonal branch is big and flow might get compromised after intervention, if Surgery is not an option for any reason then PCI can be done. - Elevated filling pressure. - Continue aggressive medical treatment for CAD. - Findings and plan of care discussed with patient. Adonis Milian MD assistant professor of education, Interventional Cardiology Pager [phone]. 05/25/2020 documented in this encounter Consult Notes Mundo Flowers MD - 05/25/2020 10:39 AM CDTAssociated Order(s): CONSULT CARDIOVASCULAR SURGERY Cardiothoracic Consult Date of Service: 05/25/20 Requesting Physician: Gurpreet Johns MD IDENTIFYING DATA Patient name: Brett Kramer : 1980 Primary care physician: Omari Thao HISTORY OF PRESENT ILLNESS We are asked to render an opinion regarding Brett Kramer, 39 year old, male, who presents with Coronary Artery Disease symptomatic with chest pain that started 3 day(s) ago. Pain started at exertion and at rest, it was initially constant but now intermittent. Intensity 9 out of 10. The pain is c haracterized as pressure, radiating to left arm, and is associated with nausea, diaphoresis, and dizziness. Symptoms are worse with exertion and palliated with rest. Pain is also associated with SOB which started 4 days ago and on minimal exertion as well as orthopnea. Denies fever, chills, cough. COMPLICATIONS/SECONDARY DIAGNOSIS None COMPLICATIONS/SECONDARY DIAGNOSIS None. CURRENT MEDICATIONS & ALLERGIES History of Steroid Therapy: yes - eye infection in 2019 Allergies: No Known Allergies Medications prior to Admission: Gabapentin 600 mg TID Robaxin 50 BID Diclofenac 50 mg daily Buprenorphine patch once weekly [place] 10 Q6H Metoprolol 50 BID Metformin 1000mg BID Hospital Medications: Current Facility-Administered Medications Medication Dose Route Frequency Last Rate Last Dose aspirin chewable tablet 81 mg 81 mg Oral DAILY 81 mg at 05/24/20 0835 atorvastatin (LIPITOR) tablet 80 mg 80 mg Oral DAILY 80 mg at 05/24/20 0835 dextrose 50 % in water (D50W) injection 25 mL 25 mL Slow IV Push PRN glucagon (GLUCAGEN DIAGNOSTIC KIT) injection 1 mg 1 mg Intramuscular PRN heparin (1,000 unit/mL, 10 mL vial) for Rebolusing 3,000 Units Slow IV Push FOR REBOLUSING 3,000 Units at 05/24/20 1845 heparin 25,000 Units/250 mL (Premixed Bag) in 0.45 % NS 1,000 Units/hr IV Infusion TITRATE 13 mL/hr at 05/25/20 0137 1,300 Units/hr at 05/25/20 0137 nitroglycerin 50 mg in D5W 250 mL infusion RTU 5 mcg/min IV Infusion CONTINUOUS 6 mL/hr at 05/25/20 1023 20 mcg/min at 05/25/20 1023 Sliding Scale Insulin - Aspart (NOVOLOG) + Fsbg Testing Subcutaneous Q4H Stopped at 05/25/200800 acetaminophen (TYLENOL) tablet 650 mg 650 mg Oral Q6HPRN fluticasone propionate 50 mcg/actuation nasal spray 1 [place] 1 [place] Nasal DAILY Stopped at 05/25/20 0900 gabapentin (NEURONTIN) capsule 600 mg 600 mg Oral TID Stopped at 05/25/20 0800 hydralAZINE (APRESOLINE) injection 10 mg 10 mg Slow IV Push Q6HPRN HYDROcodone-acetaminophen (NORCO) 10-325 mg tablet 1 tablet 1 tablet Oral Q6HPRN 1 tablet at 05/24/20 1851 methocarbamoL (ROBAXIN) tablet 750 mg 750 mg Oral QID Stopped at 05/25/20 0800 metoprolol tartrate (LOPRESSOR) tablet 50 mg 50 mg Oral BID 50 mg at 05/24/20 205 nitroglycerin (NITROSTAT) sublingual tablet 0.4 mg 0.4 mg Sublingual Q5MIN PRN ondansetron (ZOFRAN (PF)) injection 4 mg 4 mg Slow IV Push Q4HPRN 4 mg at 05/24/20 0548 REVIEW OF SYSTEMS Reviewed previous ROS from history and physical dated 05/24/20 and there are no changes. HISTORIES PAST MEDICAL HISTORY Past Medical History: Diagnosis Date Complex regional pain syndrome type II of right lower limb DM (diabetes mellitus) History of pulmonary embolus (PE) 2013 HTN (hypertension) PAST SURGICAL HISTORY Past Surgical History: Procedure Laterality Date ARTHROSCOPIC SHOULDER ROTATOR CUFF REPAIR 10/2017 MASS EXCISION Right 05/14/2019 Surgeon: Diaz Obrien MD; Location: [facility] OR Location ORBITOTOMY Right 05/14/2019 Surgeon: Diaz Obrien MD; Location: [facility] OR Location SOCIAL HISTORY Social History Tobacco Use Smoking status: Former Smoker Packs/day: 1.00 Types: Cigarettes Start date: 05/10/1996 Quit date: 07/08/2018 Years since quittin.8 Smokeless tobacco: Former User Tobacco comment: Quit 2 years ago Substance Use Topics Alcohol use: Yes Comment: social Drug use: Not Currently Types: Marijuana FAMILY HISTORY Family History Problem Relation Age of Onset Stroke Mother 67 Diabetes Mother Hypertension Mother Diabetes Father Coronary Heart Disease Father before the age of 50 Diabetes Brother PHYSICAL EXAMINATION Vitals - Weight: 114.5 Kg Heart Rate / Rhythm 72 bpm normal sinus rhythm Blood Pressure: 156/101 mmHg Respiratory Rate: 16 Pulse Ox: 100% on NC 4L Temperature: 36.6C General: Patient is alert and oriented x4 and in no acute distress. Head: Head is normocephalic, atraumatic. Eyes: conjunctivae and sclerae normal Mouth/Throat-moist mucus membranes with clear oropharynx. Neck Jugular veins: negative Respiratory: Respiratory effort: breathing comfortably Auscultations of lungs:clear to auscultation Cardiovascular: Palpitation of heart: Normal/Nondisplaced PMI. No thrills or heaves. Chest - auscultation heart: The heart rate is normal with regular rhythm, and without murmurs,rubs, or gallops., S1: normal, S2: normal Carotid Arteries (Bruits): normal - no bruits Pedal Pulses: Palpable bilaterally and normal Extremities (lower): edema - none. GastrointestinalI: Abdomen- palpation: soft, non tender Liver & Spleen: normal, non palpable Skin Inspection - phlebitis, pustules: negative Neurologic: Orientation: awake and alert Mood and Affect: appropriate MEDICAL DECISION MAKING LABS CBC BMP PT/INR WBC (10*3/L) Date Value 05/23/2020 9.88 NA (mmol/L) Date Value 05/25/2020 135 No results found for: PT RBC (10*6/L) Date Value 05/23/2020 5.13 K (mmol/L) Date Value 05/25/2020 4.5 INR (no units) Date Value 05/25/2020 1.0 PLT (10*3/L) Date Value 05/23/2020 259 CALCIUM (mg/dL) Date Value 05/25/2020 8.5 (L) HGB (g/dL) Date Value 05/23/2020 16.3 CL (mmol/L) Date Value 05/25/2020 99 aPTT HCT (%) Date Value 05/23/2020 46.5 BUN (mg/dL) Date Value 05/25/2020 20 APTT Patient (Seconds) Date Value 05/25/2020 50 (H) CREATININE (mg/dL) Date Value 05/25/2020 0.94 GLUCOSE (mg/dL) Date Value 05/25/2020 174 (H) PHENYTOIN CO2 TOTAL (mmol/L) Date Value 05/25/2020 28 No results found for: PHENYTOIN No results found for: PHENYFREE No results found for: PHENYTLTD Liver Function Test: ALBUMIN (g/dL) Date Value 05/23/2020 4.2 No components found for: KTPRO BUN (mg/dL) Date Value 05/25/2020 20 CREATININE (mg/dL) Date Value 05/25/2020 0.94 ALT(SGPT) (U/L) Date Value 05/09/2019 28 ALTv (U/L) Date Value 05/23/2020 31 AST(SGOT) (U/L) Date Value 05/23/2020 27 No components found for: ALKP I have reviewed the patient's labs. Significant abnormals are POC glucoses 140-318. Troponins negative x4 WBC 9.88 Hgb 16.3 Plt 259 Na 135 K 4.5 BUN [address] scan PE protocol (05/23/20): No acute PE Triple vessel coronary atherosclerosis PULMONARY Pulmonary Function Test: not tested OTHER TESTS EKG (05/23/2020): satisfactory Cardiac Cath/Coronary Arteriography Data (05/25/20): Coronary dominance: right Left main: Normal LAD: proximal mild LI, mid 70% disease at origin of large diagonal branch, mid to distal mild LI, distally will branch into two small arteries. LCX: Proximal mild LI, mid 30% disease, distal mild LI, OM1 small normal, OM2 medium size mild LI. RCA: Large, dominant, mid eccentric 70% disease then mid to distal 40-50% disease, RPDA large with mild LI. Echocardiograms (05/24/2020): EF 60-65%; diastolic dysfunction; mildly dilated LA DIAGNOSIS / ASSESSMENT Mr. Kramer is a 39 year-old year-old male with PMH of HTN, uncontrolled DM type II, PE (2013, on Xarelto for 1 year) and complex regional pain syndrome who presented to [facility] with unstable angina. TTE showed EF 60-65% and no valvular pathology. LHC on 05/25 showed triple vessel coronary artery disease (mid LAD 70% at diagonal branch origin, mid eccentric RCA 70%, mid-distal RCA 40-50%. MANAGEMENT OPTIONS & PLAN Continue medical optimization of coronary artery disease Will discuss with CT surgery faculty to determine recommendations Associated attestation - Girish Murrieta MD - 05/26/2020 7:14 AM CDTPatient seen and examined with Dr. Mueller. Images reviewed and patient discussed with IC Faculty Dr. Milian. Several concerns RE his surgical candidacy not least of which is uncontrolled DM with elevated A1C. Patient not interested at this time to undergo open heart surgery due to family-social obligations. Lesions are amenable to PCI/stent. Would recommend at this time evaluation for PCI/stent which would not deter from CABG in the future if patient will represent with progressive CAD. Regardless will need aggressive medical management for CAD Girish Murrieta MD. Upholstery Instructor Division of Cardiovascular and Thoracic Surgery P: [phone] C: [phone] Julius Correa MD - 05/24/2020 9:37 AM CDTAssociated Order(s): CONSULT CARDIOLOGY [facility] Cardiology Consult PCP: Omari Thao Date of Service: 05/24/2020 CHIEF COMPLAINT/reason for consult: chest pain HISTORY OF PRESENT ILLNESS This is a 39 year-old male with PMH DM, HTN, obesity, PE and family h/o premature CAD. He was admitted for chest pain. For the past few days he has had central and left sided chest heaviness, more so with exertion, associated with SOB, nausea and sweating, lasting hours, rated 9/10, without radiation.Came to [facility]. CT showed no PE but it showed significant coronary artery calcification. Strong family h/o CAD [place]. PAST MEDICAL HISTORY Past Medical History: Diagnosis Date Complex regional pain syndrome type II of right lower limb DM (diabetes mellitus) History of pulmonary embolus (PE) 2013 HTN (hypertension) Past Surgical History: Procedure Laterality Date ARTHROSCOPIC SHOULDER ROTATOR CUFF REPAIR 10/2017 MASS EXCISION Right 05/14/2019 Surgeon: Diaz Obrien MD; Location: [facility] OR Location ORBITOTOMY Right 05/14/2019 Surgeon: Diaz Obrien MD; Location: [facility] OR Location Family History Problem Relation Age of Onset Stroke Mother Diabetes Mother Hypertension Mother Diabetes Father Diabetes Brother ALLERGIES No Known Allergies MEDICATIONS No current facility-administered medications on file prior to encounter. Current Outpatient Medications on File Prior to Encounter Medication Sig Dispense Refill buprenorphine 10 mcg/hour patch Apply 10 Patches to skin. diclofenac 50 mg EC tablet Take 50 mg by mouth daily. fluticasone propionate (FLONASE ALLERGY RELIEF) 50 mcg/actuation nasal spray Use 1 [place] in eachnostril daily. metFORMIN 1,000 mg tablet Take 1,000 mg by mouth 2 (two) times daily with meals. metoprolol tartrate 50 mg tablet Take 50 mg by mouth 2 (two) times daily. methocarbamol (ROBAXIN) 500 mg tablet Take 500 mg by mouth 2 (two) times daily. gabapentin 300 mg capsule Take 1 capsule by mouth 2 (two) times daily. (Patient taking differently: Take 600 mg by mouth 3 (three) times daily.) 30 capsule 1 ibuprofen 600 mg tablet Take 1 tablet by mouth every 8 (eight) hours as needed for Pain (scale 4-6). 30 tablet 1 aspirin 325 mg tablet Take 1 tablet by mouth 2 (two) times daily. 30 tablet 0 HYDROcodone-acetaminophen (NORCO) 10-325 mg tablet Take 1 tablet by mouth every 6 (six) hours asneeded for Pain (scale 4-6) or Pain (scale 7-10). 90 tablet 0 predniSONE 10 mg tablet 3 tablets daily po for one week, then 2 tablets daily po until return 50tablet 3 amoxicillin-pot clavulanate 500 mg 500-125 mg tablet Take 1 tablet by mouth 3 (three) times daily. 21 tablet 0 artificial tears,hypromellose, 0.5 % ophthalmic drops Place 1 Drop in both eyes 4 (four) times daily. 15 mL 3 dorzolamide-timolol 22.3-6.8 mg/mL ophthalmic drops Place 1 Drop in right eye 2 (two) times daily. 10 mL 3 doxycycline 100 mg capsule Take 1 capsule by mouth every 12 (twelve) hours. 14 capsule 0 insulin aspart U-100 (NOVOLOG FLEXPEN U-100 INSULIN) 100 unit/mL (3 mL) injection inject 10 Units under the skin 3 (three) times daily before meals. 3 mL 5 insulin aspart U-100 (NOVOLOG FLEXPEN U-100 INSULIN) 100 unit/mL (3 mL) injection inject 10 Units under the skin 3 (three) times daily before meals. 3 mL 3 Insulin Glargine (LANTUS SOLOSTAR U-100 INSULIN) 100 unit/mL (3 mL) injection inject 27 Units under the skin daily. 15 mL 3 Insulin Glargine (LANTUS SOLOSTAR U-100 INSULIN) 100 unit/mL (3 mL) injection inject 27 Units under the skin daily. 15 mL 3 omeprazole 40 mg capsule Take 1 capsule by mouth daily. 90 capsule 4 predniSONE 20 mg tablet Take 3 tablets by mouth daily. 21 tablet 0 predniSONE 20 mg tablet Take 3 tablets by mouth daily. 21 tablet 0 SOCIAL HISTORY Social History Socioeconomic History Marital [...] date: 05/10/1996 Quit date: 07/08/2018 Years since quittin.8 Smokeless tobacco: Former User Tobacco comment: Quit [...] file Gets together: Not on file Attends congregational service: Not on file Active member of [...] Narrative Not on file REVIEW OF SYSTEMS General: (-) fever, (-) chills, (-) weight change, (-) dizziness, (-) fatigue Skin: (-) rash HEENT: (-) headache, (-) change in vision Neck: (-) difficulty swallowing Heme: negative Resp: (-) cough, (+) dyspnea on exertion Cardio: (+) chest pain, (-) palpitations, (-) syncope GI: (-) vomiting, (-) diarrhea : negative Endo: (+) diabetes, (-) thyroid disease Neuro: (-) numbness, (-) tingling, (-) weakness Back: (-) pain ROSALINDA: (-) muscle pain, (-) claudication Psych: (-) anxiety, (-) depression PHYSICAL EXAMINATION Vitals: 05/23/20 1957 05/23/20 2328 05/24/20 0328 05/24/20 0738 BP: (!) 156/93 (!) 148/84 (!) 135/92 (!) 155/95 Pulse: 94 84 78 82 Resp: 18 18 18 18 Temp: 36.6 C (97.8 F) 36.1 C (97 F) 36.2 C (97.2 F) 35.9 C (96.7 F) TempSrc: Temporal Artery Temporal Artery Temporal Artery Tympanic SpO2: 97% 98% 97% 97% Weight: 114.5 kg (252 lb 8 oz) Height: Constitutional: alert and oriented x 3 (person, place and date/time); no apparent distress, obese ENT: normocephalic atraumatic, supple, no lymphadenopathy, no bruits, no JVD Lungs: clear to auscultation bilaterally Cardiovascular: S1, S2 normal, regular; no murmurs, rubs or gallops GI: soft; non-tender; non-distended; normoactive bowel sounds : not examined Musculoskeletal: Extremities: no clubbing, cyanosis, or edema Skin: no rashes Neuro: no focal deficits LABS - reviewed pertinent labs as below: CBC BMP PT/INR WBC (10*3/L) Date Value 05/23/2020 9.88 NA (mmol/L) Date Value 05/23/2020 133 (L) No results found for: PT PLT (10*3/L) Date Value 05/23/2020 259 K (mmol/L) Date Value 05/23/2020 4.8 INR (no units) Date Value 10/31/2019 1.0 HGB (g/dL) Date Value 05/23/2020 16.3 BUN (mg/dL) Date Value 05/23/2020 19 HCT (%) Date Value 05/23/2020 46.5 CREATININE (mg/dL) Date Value 05/23/2020 0.72 LIPID PROFILE GLUCOSE (mg/dL) Date Value 05/23/2020 311 (H) CHOL (mg/dL) Date Value 05/09/2019 268 (H) TSH LDL CHOL (mg/dL) Date Value 05/09/2019 Comment: Unable to calculate LDL due to elevated triglyceride level greater than 400 mg/dL. No results found for: TSH CARDIAC ENZYMES HDL (mg/dL) Date Value 05/09/2019 39 (L) CK (U/L) Date Value 06/12/2018 106 TRIG (mg/dL) Date Value 05/09/2019 1,118 (H) LFTs No results found for: CKMB AST(SGOT) (U/L) Date Value 05/23/2020 27 TROPONIN I (ng/mL) Date Value 05/23/2020 0.005 ALT(SGPT) (U/L) Date Value 05/09/2019 28 ALTv (U/L) Date Value 05/23/2020 31 No results found for: BNP IMAGING - reviewed, pertinent results as below: CXR--clear EKG: normal sinus rhythm, lateral ST-T abnormality ASSESSMENT/PLAN Principal Problem: Chest pain Active Problems: Unstable angina Type 2 diabetes mellitus without complication, without long-term current use of insulin Family history of early CAD Essential hypertension Coronary artery calcification Chest pain--Concerning features, suspect unstable angina. Multiple risk factors including uncontrolled HTN and DM with strong family h/o premature CAD [place]. Would recommend [facility] for definitive diagnosis. Risk and benefit discussed in detail. Continue ASA. Add lipitor 80 mg daily, Nitro paste, IV heparin,and PO metoprolol. Will get ECHO to assess LVEF and wall motion. HTN--Add metoprolol. Watch for adjustment. DM--per primary team. A1c > 9. Coronary artery calcification--as above. Obesity--discussed diet and weight loss. Thank you for allowing us to participate in the care of your patient. Please feel free to contact usfor any questions or if we can be of further assistance. Julius Correa MD, [facility], [facility] Upholstery Instructor, Division of Cardiology [facility] documented in this encounter Nursing Notes Bowen Stoll RN - 05/28/2020 2:30 PM CDTReviewed post TR band care instructions Reviewed discharge medication list Reviewed follow-up appointments Reviewed glucose control documented in this encounter ED Notes Elisa Vyas RN - 05/23/2020 2:20 PM CDTPatient c/o left chest pain that started yesterday and shortness of breath that started 2 days ago.SOB worsened today and increases with minimal exertion. éctor Bales FNP - 05/23/2020 2:12 PM CDT [facility] Emergency Department Note Patient Name: Brett Kramer Date of : 1980 39 year old male Treatment Room: NH5/NH5 Primary Care Physician: Omari Thao Patient Escorted by: Self [9] Mode of Arrival: Personal means [1] EMS Treatment Prior to ED Arrival: PSYCHIATRIC SECURITY NURSE treatment: Medication (comment) PSYCHIATRIC SECURITY NURSE treatment comments: daily meds this morning. Travel and Exposure Screening: Symptoms Does patient have any of these symptoms?: (not recorded) Exposure Screening Has patient had contact with someone with a communicable disease in the last month?: (not recorded) Diseases exposed to:: (not recorded) Is Patient ?: (not recorded) Exposure Date: (not recorded) Chief Complaint: Chief Complaint Patient presents with Chest Pain Shortness of Breath History of Present Illness: 39 y/o male presents with c/o chest pain, pressure, and tightness across the chest associated with SOB. He reports SOB started Friday and the chest pain/pressure started yesterday. He reportsmild cough, no fever or sputum production. He reports having intermittent chest pain in the past. Healso has history of PE, had been on Xarelto which was discontinued after one year of use. He reportschest pain is 8/10. He reports pain is constant but sometimes it resolves for a while and is unable to tell the alleviating factors, aggravated with activities. He has no known CAD or CHF. He has DM and HTN on medications. History provided by: Patient History limited by: none willow analyst used: No Past Medical History/Immunizations: Past Medical History: Diagnosis Date Complex regional pain syndrome type II of right lower limb DM (diabetes mellitus) History of pulmonary embolus (PE) 2013 HTN (hypertension) Tetanus received in last 5 years: Yes Childhood immunizations: Up-to-date Allergies: No Known Allergies Past Social History: Tobacco Use Former Smoker; 05/10/1996 - 07/08/2018; Smokes 1 pack/day; Smoked: Cigarettes. Smokeless Tobacco: Former user of smokeless tobacco. Alcohol Use Yes. Comments: social Drug Use Not Currently; Marijuana. Past Surgical History: Past Surgical History: Procedure Laterality Date ARTHROSCOPIC SHOULDER ROTATOR CUFF REPAIR 10/2017 MASS EXCISION Right 05/14/2019 Surgeon: Diaz Obrien MD; Location: [facility] OR Location ORBITOTOMY Right 05/14/2019 Surgeon: Diaz Obrien MD; Location: [facility] OR Location Review of Systems: Review of Systems Constitutional: Positive for activity change and appetite change. Negative for chills, fatigue and fever. HENT: Negative for congestion, facial swelling, mouth sores, rhinorrhea and sore throat. Eyes: Negative. Negative for visual disturbance. Respiratory: Positive for cough (mild ), chest tightness and shortness of breath. Negative for wheezing. Cardiovascular: Positive for chest pain. Negative for palpitations and leg swelling. Gastrointestinal: Positive for nausea. Negative for abdominal pain, diarrhea and vomiting. Genitourinary: Negative. Musculoskeletal: Negative. Negative for neck pain and neck stiffness. Skin: Negative. Neurological: Negative. Negative for dizziness, light-headedness, numbness and headaches. Psychiatric/Behavioral: Negative for behavioral problems and confusion. Physical Exam: ED Triage Vitals [05/23/20 1422] Weight 120.2 kg (265 lb) Actual or estimated Height BP (!) 176/106 Pulse 95 Resp 18 Temp 36.9 C (98.4 F) Temp source Oral SpO2 98 % Measured on Room air Physical Exam Vitals signs and nursing note reviewed. Constitutional: General: He is not in acute distress. Appearance: Normal appearance. He is obese. He is not ill-appearing or toxic-appearing. HENT: Head: Normocephalic and atraumatic. Nose: Nose normal. No congestion or rhinorrhea. Mouth/Throat: Lips: [place]. Mouth: Mucous membranes are moist. Comments: Dry lips Eyes: General: No scleral icterus. Conjunctiva/sclera: Conjunctivae normal. Pupils: Pupils are equal, round, and reactive to light. Neck: Musculoskeletal: Normal range of motion and neck supple. Cardiovascular: Rate and Rhythm: Normal rate and regular rhythm. Pulses: Normal pulses. Pulmonary: Effort: Pulmonary effort is normal. Breath sounds: Normal breath sounds. Abdominal: General: Abdomen is flat. Bowel sounds are normal. There is no distension. Tenderness: There is no abdominal tenderness. There is no guarding or rebound. Musculoskeletal: Normal range of motion. General: No swelling or tenderness. Right lower leg: No edema. Left lower leg: No edema. Skin: General: Skin is warm and dry. Capillary Refill: Capillary refill takes less than 2 seconds. Coloration: Skin is not jaundiced. Neurological: Mental Status: He is alert and oriented to person, place, and time. Mental status is at baseline. Motor: No weakness. Psychiatric: Mood and Affect: Mood normal. Behavior: Behavior normal. Behavior is cooperative. Radiology: Hospital Encounter on 05/23/20 CT CHEST PULMONARY ANGIOGRAM Narrative HISTORY: Shortness of breath, rule out P.E. TECHNIQUE: Contrast-enhanced 64-mutidetector CT scan of the chest was completed with intravenous injection of Omnipaque-350 non ionic contrast medium. Subsequently numerous sagittal, coronal and MIP reformations were generated. FINDINGS: Comparison is made with a recent CT scan of the chest dated 10/31/2019. Small portions of the thyroid gland included showed no abnormality. Trachea and central bronchial airways appear normal. No acute pulmonary thromboembolism detected. Lungs are free of acute infiltrates. No pulmonary nodules seen. No pleural or pericardial effusion, pneumothorax or pneumomediastinum. No aortic aneurysm or dissection. Slightly prominent lymph nodes are seen in both right and left south, unchanged when compared with the previous study. Main pulmonary artery is measuring 3 cm today. Atherosclerosis is noted with calcifications in LAD coronary artery, its branches, right coronary as well as LCx coronary arteries. Degenerative changes noted with a rather large osteophytes along the ventral vertebral margins at lower thoracic levels. CONCLUSIONS: 1. No acute pulmonary thromboembolism. 2. Triple vessel coronary atherosclerosis. Chest 1 View Narrative HISTORY: SOB. TECHNIQUE: Portable AP erect view of the chest is obtained. Comparison made with 05/15/2019 study. FINDINGS: No acute pneumonia. No pneumothorax or pleural effusion or pulmonary congestion detected. Cardiac size is within normal limits. Central pulmonary arteries are slightly dilated without amilcar acute interstitial pulmonary edema. CONCLUSIONS: No signs of acute cardiopulmonary disease. Lab Results (24h): Recent Results (from the past 24 hour(s)) CBC with Differential Collection Time: 05/23/20 2:36 PM Result Value Ref Range WBC 9.88 4.20 - 10.70 10*3/L RBC 5.13 4.26 - 5.52 10*6/L HGB 16.3 12.2 - 16.4 g/dL HCT 46.5 38.4 - 49.3 % MCV 90.6 81.7 - 95.6 fL MCH 31.8 26.1 - 32.7 pg MCHC 35.1 (H) 31.2 - 35.0 g/dL RDW-SD 39.4 38.5 - 51.6 fL RDW-CV 11.9 (L) 12.1 - 15.4 % PLT 259 150 - 328 10*3/L MPV 11.2 9.8 - 13.0 fL NRBC/100 WBC 0.0 0.0 - 10.0 /100 WBCs NRBC x10^3 <0.01 10*3/L GRAN MAT (NEUT) % 61.9 % IMM GRAN % 0.50 % LYMPH % 27.4 % MONO % 8.7 % EOS % 1.2 % BASO % 0.3 % GRAN MAT x10^3(ANC) 6.11 1.99 - 6.95 10*3/uL IMM GRAN x10^3 0.05 0.00 - 0.06 10*3/uL LYMPH x10^3 2.71 1.09 - 3.23 10*3/uL MONO x10^3 0.86 0.36 - 1.02 10*3/uL EOS x10^3 0.12 0.06 - 0.53 10*3/uL BASO x10^3 0.03 0.01 - 0.09 10*3/uL Basic Metabolic Panel (NA, K, CL, CO2, GLUCOSE, BUN, CREATININE, CA) Collection Time: 05/23/20 2:36 PM Result Value Ref Range NA 133 (L) 135 - 145 mmol/L K 4.8 3.5 - 5.0 mmol/L CL 98 98 - 108 mmol/L CO2 TOTAL 24 23 - 31 mmol/L AGAP 11 2 - 16 BUN 19 7 - 23 mg/dL GLUCOSE 311 (H) 70 - 110 mg/dL CREATININE 0.72 0.60 - 1.25 mg/dL CALCIUM 9.5 8.6 - 10.6 mg/dL eGFR Calculation (Non-) 120.9 mL/min/1.73m2 eGFR Calculation () 146.5 mL/min/1.73m2 Hepatic Function Panel (ALB, T.PRO, BILI T, BU/BC, ALT, AST, ALK PHOS) Collection Time: 05/23/20 2:36 PM Result Value Ref Range TOTAL BILI 0.4 0.1 - 1.1 mg/dL BILI UNCON 0.6 0.1 - 1.1 mg/dL BILI CONJ 0.0 0.0 - 0.3 mg/dL T PROTEIN 7.2 6.3 - 8.2 g/dL ALBUMIN 4.2 3.5 - 5.0 g/dL ALK PHOS 83 34 - 122 U/L ALTv 31 5 - 50 U/L AST(SGOT) 27 13 - 40 U/L Troponin I Collection Time: 05/23/20 2:36 PM Result Value Ref Range TROPONIN I 0.003 <=0.034 ng/mL N-TERMINAL PRO-BNP Collection Time: 05/23/20 2:36 PM Result Value Ref Range NT-proBNP 407 (H) <=125 pg/mL COVID-19 (ID NOW RAPID TESTING) Collection Time: 05/23/20 2:36 PM Specimen: NASOPHARYNGEAL SWAB Result Value Ref Range SARS-CoV-2 Rapid ID NOW Not Detected Not Detected Urinalysis Collection Time: 05/23/20 3:10 PM Result Value Ref Range APPEARANCE Clear Clear COLOR Straw (A) Yellow PH 6.0 4.8 - 8.0 SP GRAVITY 1.022 1.003 - 1.030 GLU U QUAL 500 mg/dL (A) Normal BLOOD Negative Negative KETONES Negative Negative PROTEIN Negative Negative UROBILIN Normal Normal BILIRUBIN Negative Negative NITRITE Negative Negative LEUK MARIC Negative Negative RBC/HPF <1 0 - 3 HPF WBC/HPF <1 0 - 5 HPF BACTERIA Negative Negative HYAL CAST 1 <=2 LPF EKG: normal sinus rhythm, rate 93, QT/[id number] Orders and Treatments: Orders Placed This Encounter Procedures Chest [address] CHEST PULMONARY ANGIOGRAM CBC with Differential Urinalysis Basic Metabolic Panel (NA, K, CL, CO2, GLUCOSE, BUN, CREATININE, CA) Hepatic Function Panel (ALB, T.PRO, BILI T, BU/BC, ALT, AST, ALK PHOS) Troponin I N-TERMINAL PRO-BNP COVID-19 (ID NOW RAPID TESTING) TROPONIN I GLYCOSYLATED HEMOGLOBIN (A1C) CONSULT CARDIOLOGY ECHO ROUTINE W/DOPPLER COLOR Orders Placed This Encounter Medications aspirin tablet 325 mg morpHINE injection 4 mg ondansetron (ZOFRAN (PF)) injection 4 mg NaCl 0.9% (NS) bolus infusion 500 mL iohexol (OMNIPAQUE 350 BULK-150 mL) injection 120 mL nitroglycerin (NITROSTAT) sublingual tablet 0.4 mg ED COURSE 39 y/o male presents with c/o chest pain and SOB, x 2-3 days . He reports chest pain across the bilateral anterior chest , worse with ambulation or activity CBC- wnl, CMP shows hyperglycemia, no DKA, Troponin 0.003 CHEST X RAY -W NL CT chest - no PE, but has Tripple vessel coronary artery disease All results discussed with the patient Discussed with hunter Knapp to admit in [facility] for chest pain r/o ACS. Dr. Navarrete accepted for admission. MDM: MDM Reviewed: nursing note, vitals and previous chart Interpretation: labs, ECG, x-ray and CT scan Consults: admitting MD and cardiology Scoring Tools:HEART score 4 Diagnosis/Impression: ICD-10-CM ICD-9-CM 1. Chest pain, unspecified type R07.9 786.50 2. Shortness of breath R06.02 786.05 Disposition/Condition: ED Disposition ED Disposition Condition Comment Admit - Observation Fair Is this patient COVID positive or a patient under investigation (PUI)?: No Treatment Team: [facility] [[id number]] Primary reason for admission: Chest pain [693741] Secondary reason for admission: Shortness of breath [786.05.ICD-9-CM] Is (or was) this a planned re-admission?: No Discharge Medications: Patient's Medications START taking these medications No medications on file CONTINUE taking these medications which have NOT CHANGED AMOXICILLIN-POT CLAVULANATE 500 MG 500-125 MG TABLET Take 1 tablet by mouth 3 (three) times daily. ARTIFICIAL TEARS,HYPROMELLOSE, 0.5 % OPHTHALMIC DROPS Place 1 Drop in both eyes 4 (four) times daily. ASPIRIN 325 MG TABLET Take 1 tablet by mouth 2 (two) times daily. DORZOLAMIDE-TIMOLOL 22.3-6.8 MG/ML OPHTHALMIC DROPS Place 1 Drop in right eye 2 (two) times daily. DOXYCYCLINE 100 MG CAPSULE Take 1 capsule by mouth every 12 (twelve) hours. GABAPENTIN 300 MG CAPSULE Take 1 capsule by mouth 2 (two) times daily. HYDROCODONE-ACETAMINOPHEN (NORCO) 10-325 MG TABLET Take 1 tablet by mouth every 6 (six) hours asneeded for Pain (scale 4-6) or Pain (scale 7-10). IBUPROFEN 600 MG TABLET Take 1 tablet by mouth every 8 (eight) hours as needed for Pain (scale 4-6). INSULIN ASPART U-100 (NOVOLOG FLEXPEN U-100 INSULIN) 100 UNIT/ML (3 ML) INJECTION inject 10 Units under the skin 3 (three) times daily before meals. INSULIN ASPART U-100 (NOVOLOG FLEXPEN U-100 INSULIN) 100 UNIT/ML (3 ML) INJECTION inject 10 Units under the skin 3 (three) times daily before meals. INSULIN GLARGINE (LANTUS SOLOSTAR U-100 INSULIN) 100 UNIT/ML (3 ML) INJECTION inject 27 Units under the skin daily. INSULIN GLARGINE (LANTUS SOLOSTAR U-100 INSULIN) 100 UNIT/ML (3 ML) INJECTION inject 27 Units under the skin daily. METFORMIN 1,000 MG TABLET Take 1,000 mg by mouth 2 (two) times daily with meals. METHOCARBAMOL (ROBAXIN) 500 MG TABLET Take 500 mg by mouth 2 (two) times daily. METOPROLOL TARTRATE 50 MG TABLET Take 50 mg by mouth 2 (two) times daily. OMEPRAZOLE 40 MG CAPSULE Take 1 capsule by mouth daily. PREDNISONE 10 MG TABLET 3 tablets daily po for one week, then 2 tablets daily po until return PREDNISONE 20 MG TABLET Take 3 tablets by mouth daily. PREDNISONE 20 MG TABLET Take 3 tablets by mouth daily. START taking Modified Medications as Prescribed No medications on file STOP taking these medications No medications on file Follow-up: Electronically signed by: JENNIFER Beauchamp 05/23/2020 4:16 PM Associated attestation - Danny Holland MD - 05/24/2020 12:26 PM CDTAddendum I personally participated in decision-making for this patient with Erendira Bales NP. Please see the ALONDRA note for further details. Danny Holland MD, [facility] Emergency Medicine documented in this encounter Miscellaneous Notes Care Plan - Bowen Stoll RN - 05/28/2020 2:30 PM CDT Problem: Discharge Planning Goal: Absence of venous thromboembolism 05/28/2020 1543 by Bowen Stoll RN Outcome: Adequate for discharge 05/28/2020 1158 by Bowen Stoll RN Outcome: Progressing as expected Goal: Adequate for discharge 05/28/2020 1543 by Bowen Stoll RN Outcome: Adequate for discharge 05/28/2020 1158 by Bowen Stoll RN Outcome: Progressing as expected Goal: Adequate to move to next level of care 05/28/2020 1543 by Bowen Stoll RN Outcome: Adequate for discharge 05/28/2020 1158 by Bowen Stoll RN Outcome: Progressing as expected Goal: Knowledge of medication management 05/28/2020 1543 by Bowen Stoll RN Outcome: Adequate for discharge 05/28/2020 1158 by Bowen Stoll RN Outcome: Progressing as expected Problem: Cardiac Output - Decreased Goal: Absence of signs and symptoms of decreased cardiac output 05/28/2020 1543 by Bowen Stoll RN Outcome: Adequate for discharge 05/28/2020 1158 by Bowen Stoll RN Outcome: Progressing as expected Problem: Falls, Risk of Goal: Absence of falls 05/28/2020 1543 by Bowen Stoll RN Outcome: Adequate for discharge 05/28/2020 1158 by Bowen Stoll RN Outcome: Progressing as expected Problem: Pain Goal: Control of pain at or below patient's documented comfort goal 05/28/2020 1543 by Bowen Stoll RN Outcome: Adequate for discharge 05/28/2020 1158 by Bowen Stoll RN Outcome: Progressing as expected Goal: Reduction in pain sensation 05/28/2020 1543 by Bowen Stoll RN Outcome: Adequate for discharge 05/28/2020 1158 by Bowen Stoll RN Outcome: Progressing as expected Problem: Skin integrity Impaired (Risk or Actual) Goal: Wound healing 05/28/2020 1543 by Bowen Stoll RN Outcome: Adequate for discharge 05/28/2020 1158 by Bowen Stoll RN Outcome: Progressing as expected Goal: Prevention of new skin breakdown 05/28/2020 1543 by Bowen Stoll RN Outcome: Adequate for discharge 05/28/2020 1158 by Bowen Stoll RN Outcome: Progressing as expected Problem: Tissue Perfusion, Cardiopulmonary - Altered Goal: Circulatory function within specified parameters 05/28/2020 1543 by Bowen Stoll RN Outcome: Adequate for discharge 05/28/2020 1158 by Bowen Stoll RN Outcome: Progressing as expected Problem: Bleeding, Risk of Goal: Absence of impaired coagulation signs and symptoms 05/28/2020 1543 by Bowen Stoll RN Outcome: Adequate for discharge 05/28/2020 1158 by Bowen Stoll RN Outcome: Progressing as expected Goal: Absence of active bleeding 05/28/2020 1543 by Bowen Stoll RN Outcome: Adequate for discharge 05/28/2020 1158 by Bowen Stoll RN Outcome: Progressing as expected Problem: Skin integrity Impaired (Risk or Actual) Goal: Wound healing 05/28/2020 1543 by Bowen Stoll RN Outcome: Adequate for discharge 05/28/2020 1158 by Bowen Stoll RN Outcome: Progressing as expected Goal: Prevention of new skin breakdown 05/28/2020 1543 by Bowen Stoll RN Outcome: Adequate for discharge 05/28/2020 1158 by Bowen Stoll RN Outcome: Progressing as expected Problem: Glucose control Goal: Glucose level within specified parameters 05/28/2020 1543 by Bowen Stoll RN Outcome: Adequate for discharge 05/28/2020 1158 by Bowen Stoll RN Outcome: Progressing as expected are Angela - Bowen Stoll RN - 05/28/2020 9:02 AM CDT Problem: Discharge Planning Goal: Absence [...] specified parameters Outcome: Progressing as expected Problem: Bleeding, Risk of Goal: Absence of impaired coagulation signs and symptoms Outcome: Progressing as expected Goal: Absence of active bleeding Outcome: Progressing as expected Problem: Skin integrity Impaired (Risk or Actual) Goal: Wound healing Outcome: Progressing as expected Goal: Prevention of new skin breakdown Outcome: Progressing as expected Problem: Glucose control Goal: Glucose level within specified parameters Outcome: Progressing as expected are Angela - Cindy Salcido RN - 05/27/2020 10:40 PM CDT Problem: Discharge Planning Goal: Absence [...] specified parameters Outcome: Progressing as expected Problem: Bleeding, Risk of Goal: Absence of impaired coagulation signs and symptoms Outcome: Progressing as expected Goal: Absence of active bleeding Outcome: Progressing as expected Problem: Skin integrity Impaired (Risk or Actual) Goal: Wound healing Outcome: Progressing as expected Goal: Prevention of new skin breakdown Outcome: Progressing as expected Problem: Glucose control Goal: Glucose level within specified parameters Outcome: Progressing as expected Bowen Dey RN - 05/27/2020 6:35 PM CDT Problem: Discharge Planning Goal: Absence [...] within specified parameters Outcome: Progressing as expected Chanda Brown RN - 05/25/2020 5:07 AM CDT Problem: Discharge Planning Goal: Absence of venous thromboembolism Outcome: Progressing as expected Goal: Knowledge of medication management Outcome: Progressing as expected Problem: Skin integrity Impaired (Risk or Actual) Goal: Wound healing Outcome: Progressing as expected Problem: Discharge Planning Goal: Adequate for discharge Outcome: Not progressing as expected Goal: Adequate to move to next level of care Outcome: Not progressing as expected Problem: Pain Goal: Control of pain at or below patient's documented comfort goal Outcome: Not progressing as expected Goal: Reduction in pain sensation Outcome: Not progressing as expected Problem: Tissue Perfusion, Cardiopulmonary - Altered Goal: Circulatory function within specified parameters Outcome: Not progressing as expected Problem: Discharge Planning Goal: Adequate for discharge Outcome: Not progressing as expected Goal: Adequate to move to next level of care Outcome: Not progressing as expected Problem: Pain Goal: Control of pain at or below patient's documented comfort goal Outcome: Not progressing as expected Goal: Reduction in pain sensation Outcome: Not progressing as expected Problem: Tissue Perfusion, Cardiopulmonary - Altered Goal: Circulatory function within specified parameters Outcome: Not progressing as expected are Plan - Farhana Mckeon RN - 05/24/2020 8:06 PM CDT Problem: Discharge Planning Goal: Absence [...] within specified parameters Outcome: Progressing as expected Nurse teaching given on fall precautions, bleeding risk, medications, pain control and the patient expresses understanding and acceptance of instructions. Farhana Mckeon RN 05/24/2020 8:06 PM ursing Note - Judy Romeo RN - 05/24/2020 3:12 PM CDTReport called to KRISTINE Delcid at [address] are Angela - Judy Romeo RN - 05/24/2020 8:35 AM CDT Problem: Discharge Planning Goal: Absence [...] within specified parameters Outcome: Progressing as expected are Plan - Dacia Youssef RN - 05/23/2020 11:52 PM CDT. D Nurse Note - Donny Coleman RN - 05/23/2020 5:39 PM CDT[facility] Patient agrees to admission, discussed plan of care with patient. Patient is awake, A&Ox4, resp reg unlabored on RA, color appropriate for race, PIV intact x1 to right AC. No adverse reaction to medications administered while in ED. Belongings with patient to unit. D Nurse Note - Donny Coleman RN - 05/23/2020 5:38 PM CDTNurse Report Report given to KRISTINE Ramírez on Med Surg. Chief complaint, assessment findings and orders reviewed.Plan of care discussed with nurse. DONNY COLEMAN RN D Nurse Note - Donny Coleman RN - 05/23/2020 5:26 PM CDT Attempted to call patient report. Receiving nurse unavailable at this time, was advised that she will call back for report. documented in this encounter Plan of Treatment Name Type Priority Associated Diagnoses Order S chedule EKG-12 LEAD ROUTINE HEART STATION STAT ONCE fo r 1 Occurrences sta rting 05/24/2020 unti l 05/24/2020 BASIC METABOLIC LAB RADHA EVERY MORNIN G AT 0400 PANEL (NA, K, CL, for 7 Days starting CO2, GLUCOSE, BUN, 0 until CREATININE, CA) 05/31/2020, 4 completed MAGNESIUM LAB RADHA EVERY MORNING A T 0400 for 7 Days star ting 05/25/2020 unti l 05/31/2020, 4 completed EKG-12 LEAD ROUTINE HEART STATION Routine ONCE fo r 1 Occurrences sta rting 05/28/2020 unti l 05/28/2020 EKG-12 LEAD ROUTINE HEART STATION STAT ONCE fo r 1 Occurrences sta rting 05/27/2020 unti l 05/27/2020 Health Maintenance Due Date Last Done Comments URINE MICROALBUMIN 1989 Depression Screening 1991 FOOT EXAM 1997 DTaP,Tdap,and Td Vaccines 1998 06/12/2018 (1 - Tdap) INFLUENZA VACCINE (#1) 2020 EYE EXAM 05/18/2020 05/18/2019 HgA1C 11/20/2020 05/23/2020, 05/09/2019 LDL-C 05/23/2021 05/23/2020, 05/09/2019 CREATININE (SERUM) 05/27/2021 05/27/2020, 05/27/2020, 05/26/2020, Additional history exists PNEUMOCOCCAL 0-64 YEARS Aged Out No longe r eligible COMBINED SERIES based on patient 's age to complete this topic documented as of this encounter Procedures Procedure Name Priority Date/Time Associated Comments Diagnosis POCT GLUCOSE Routine 05/28/2020 1:34 Results for this (AUTOMATED) PM CDT procedure are i n the results section. POCT GLUCOSE Routine 05/28/2020 9:06 Results for this (AUTOMATED) AM CDT procedure are i n the results section. CBC WITHOUT DIFF Routine 05/28/2020 4:12 Results for this AM CDT procedure are i n the results section. BASIC METABOLIC Routine 05/28/2020 4:12 Results for this PANEL (NA, K, CL, AM CDT procedure are in CO2, GLUCOSE, BUN, the resul ts CREATININE, CA) section. TROPONIN I Routine 05/28/2020 4:12 Results for this AM CDT procedure are i n the results section. MAGNESIUM Routine 05/28/2020 4:12 Results for this AM CDT procedure are i n the results section. CK (CREATINE KINASE) Routine 05/28/2020 4:12 Res ults for this + MB AM CDT procedure are i n the results section. POCT GLUCOSE Routine 05/27/2020 9:38 Results for this (AUTOMATED) PM CDT procedure are i n the results section. BASIC METABOLIC Add-on 05/27/2020 9:14 Results for this PANEL (NA, K, CL, PM CDT procedure are in CO2, GLUCOSE, BUN, the resul ts CREATININE, CA) section. TROPONIN I STAT 05/27/2020 9:14 Results for this PM CDT procedure are i n the results section. MAGNESIUM Add-on 05/27/2020 9:14 Results for this PM CDT procedure are i n the results section. CK (CREATINE KINASE) Add-on 05/27/2020 9:14 Res ults for this + MB PM CDT procedure are i n the results section. POCT GLUCOSE Routine 05/27/2020 6:07 Results for this (AUTOMATED) PM CDT procedure are i n the results section. POCT GLUCOSE Routine 05/27/2020 11:42 Results for this (AUTOMATED) AM CDT procedure are i n the results section. POCT GLUCOSE Routine 05/27/2020 7:35 Results for this (AUTOMATED) AM CDT procedure are i n the results section. ACTIVATED PARTIAL RADHA 05/27/2020 3:13 Unstable angina Res ults for this THRMPLAS CHRISTIANO AM CDT procedure are i n the results section. ACTIVATED PARTIAL RADHA 05/27/2020 1:07 Unstable angina Res ults for this THRMPLAS CHRISTIANO AM CDT procedure are i n the results section. BASIC METABOLIC RADHA 05/27/2020 1:07 Results for this PANEL (NA, K, CL, AM CDT procedure are in CO2, GLUCOSE, BUN, the resul ts CREATININE, CA) section. MAGNESIUM RADHA 05/27/2020 1:07 Results for this AM CDT procedure are i n the results section. ACTIVATED PARTIAL RADHA 05/26/2020 11:17 Result s for this THRMPLAS CHRISTIANO PM CDT procedure are i n the results section. POCT GLUCOSE Routine 05/26/2020 8:55 Results for this (AUTOMATED) PM CDT procedure are i n the results section. ACTIVATED PARTIAL RADHA 05/26/2020 8:55 Unstable angina Res ults for this THRMPLAS CHRISTIANO PM CDT procedure are i n the results section. EKG-12 LEAD Routine 05/26/2020 7:29 PM CDT POCT ACT LOW RANGE Routine 05/26/2020 6:41 Resul ts for this PM CDT procedure are i n the results section. POCT ACT LOW RANGE Routine 05/26/2020 6:33 Resul ts for this PM CDT procedure are i n the results section. POCT ACT LOW RANGE Routine 05/26/2020 5:57 Resul ts for this PM CDT procedure are i n the results section. POCT ACT LOW RANGE Routine 05/26/2020 5:22 Resul ts for this PM CDT procedure are i n the results section. POCT GLUCOSE Routine 05/26/2020 4:17 Results for this (AUTOMATED) PM CDT procedure are i n the results section. EKG-12 LEAD Routine 05/26/2020 12:08 PM CDT POCT GLUCOSE Routine 05/26/2020 11:49 Results for this (AUTOMATED) AM CDT procedure are i n the results section. ACTIVATED PARTIAL RADHA 05/26/2020 11:09 Result s for this THRMPLAS CHRISTIANO AM CDT procedure are i n the results section. ACTIVATED PARTIAL RADHA 05/26/2020 3:19 Result s for this THRMPLAS CHRISTIANO AM CDT procedure are i n the results section. BASIC METABOLIC RADHA 05/26/2020 3:19 Results for this PANEL (NA, K, CL, AM CDT procedure are in CO2, GLUCOSE, BUN, the resul ts CREATININE, CA) section. MAGNESIUM RADHA 05/26/2020 3:19 Results for this AM CDT procedure are i n the results section. POCT GLUCOSE Routine 05/25/2020 8:42 Results for this (AUTOMATED) PM CDT procedure are i n the results section. ACTIVATED PARTIAL RADHA 05/25/2020 6:45 Result s for this THRMPLAS CHRISTIANO PM CDT procedure are i n the results section. POCT GLUCOSE Routine 05/25/2020 4:06 Results for this (AUTOMATED) PM CDT procedure are i n the results section. POCT GLUCOSE Routine 05/25/2020 11:48 Results for this (AUTOMATED) AM CDT procedure are i n the results section. ACTIVATED PARTIAL RADHA 05/25/2020 10:35 Result s for this THRMPLAS CHRISTIANO AM CDT procedure are i n the results section. POCT GLUCOSE Routine 05/25/2020 7:49 Results for this (AUTOMATED) AM CDT procedure are i n the results section. ACTIVATED PARTIAL RADHA 05/25/2020 7:09 Result s for this THRMPLAS CHRISTIANO AM CDT procedure are i n the results section. PROTHROMBIN TIME / Add-on 05/25/2020 7:09 Resul ts for this INR AM CDT procedure are i n the results section. BASIC METABOLIC RADHA 05/25/2020 4:37 Results for this PANEL (NA, K, CL, AM CDT procedure are in CO2, GLUCOSE, BUN, the resul ts CREATININE, CA) section. TROPONIN I Add-on 05/25/2020 4:37 Results for this AM CDT procedure are i n the results section. MAGNESIUM RADHA 05/25/2020 4:37 Results for this AM CDT procedure are i n the results section. POCT GLUCOSE Routine 05/25/2020 4:35 Results for this (AUTOMATED) AM CDT procedure are i n the results section. MRSA / MSSA SCREEN RADHA 05/25/2020 4:01 Resul ts for this BY MEGAN ARMENTA AM CDT procedure are in the results section. ACTIVATED PARTIAL RADHA 05/25/2020 12:23 Result s for this THRMPLAS CHRISTIANO AM CDT procedure are i n the results section. POCT GLUCOSE Routine 05/25/2020 12:22 Results for this (AUTOMATED) AM CDT procedure are i n the results section. POCT GLUCOSE Routine 05/24/2020 6:36 Results for this (AUTOMATED) PM CDT procedure are i n the results section. ACTIVATED PARTIAL Routine 05/24/2020 3:58 Result s for this THRMPLAS CHRISTIANO PM CDT procedure are i n the results section. POCT GLUCOSE Routine 05/24/2020 11:44 Results for this (AUTOMATED) AM CDT procedure are i n the results section. ACTIVATED PARTIAL Routine 05/24/2020 9:41 Result s for this THRMPLAS CHRISTIANO AM CDT procedure are i n the results section. ECHO ROUTINE Routine 05/24/2020 8:52 Chest pain, W/DOPPLER COLOR AM CDT unspecified type POCT GLUCOSE Routine 05/24/2020 8:01 Results for this (AUTOMATED) AM CDT procedure are i n the results section. TROPONIN I Routine 05/23/2020 9:31 Results for this PM CDT procedure are i n the results section. POCT GLUCOSE Routine 05/23/2020 7:56 Results for this (AUTOMATED) PM CDT procedure are i n the results section. LOW-DENSITY Routine 05/23/2020 5:09 Results for this LIPOPROTEIN, DIRECT PM CDT procedur e are in the results section. LIPID PANEL Add-on 05/23/2020 5:09 Results for this (43399)(TOTAL PM CDT procedure are in CHOLESTEROL, the results TRIGLYCERIDES, HDL) section. TROPONIN I STAT 05/23/2020 5:09 Results for this PM CDT procedure are i n the results section. CT CHEST PULMONARY STAT 05/23/2020 4:10 Chest pain, Resul ts for this ANGIOGRAM PM CDT unspecified type procedure are in Shortness of breath the resu lts section. XR CHEST 1 VW STAT 05/23/2020 3:10 Chest pain, Results fo r this PM CDT unspecified type procedure are in Shortness of breath the resu lts section. URINALYSIS STAT 05/23/2020 3:10 Chest pain, Results for this PM CDT unspecified type procedure are in Shortness of breath the resu lts section. COVID-19 (ID NOW STAT 05/23/2020 2:36 Chest pain, Results for this RAPID TESTING) PM CDT unspecified type procedure are in Shortness of breath the resu lts section. N-TERMINAL PRO-BNP STAT 05/23/2020 2:36 Chest pain, Resul ts for this PM CDT unspecified type procedure are in Shortness of breath the resu lts section. GLYCOSYLATED STAT Add-On 05/23/2020 2:36 Results for this HEMOGLOBIN (A1C) PM CDT procedure a re in the results section. CBC WITH DIFF STAT 05/23/2020 2:36 Chest pain, Results fo r this PM CDT unspecified type procedure are in Shortness of breath the resu lts section. BASIC METABOLIC STAT 05/23/2020 2:36 Chest pain, Results for this PANEL (NA, K, CL, PM CDT unspecified ty pe procedure are in CO2, GLUCOSE, BUN, Shortness of breath th e results CREATININE, CA) section. HEPATIC FUNCTION STAT 05/23/2020 2:36 Chest pain, Results for this PANEL (32006) PM CDT unspecified type procedure are in (ALB,T.PRO,BILI Shortness of breath the r esults T,BU/BC,ALT,AST,ALK section. PHOS) TROPONIN I STAT 05/23/2020 2:36 Chest pain, Results for this PM CDT unspecified type procedure are in Shortness of breath the resu lts section. EKG-12 LEAD STAT 05/23/2020 2:32 PM CDT EKG-12 LEAD Routine 05/23/2020 2:29 PM CDT NOTICE OF PRIVACY Routine 05/23/2020 2:12 PRACTICES PM CDT documented in this encounter Results POCT GLUCOSE (AUTOMATED) (05/28/2020 1:34 PM CDT) Pathologist Sig replaced by [facility] POCT GLU 156 (H) 70 - 110 mg/dL [facility] Specimen Blood Performing Organization Address [facility] Phone Number [facility] CLIA: [id number] [place] [address] [place] [address] POCT GLUCOSE (AUTOMATED) (05/28/2020 9:06 AM CDT) Pathologist Sig replaced by [facility] POCT GLU 159 (H) 70 - 110 mg/dL [facility] Specimen Blood Performing Organization Address [facility] Phone Number [facility] CLIA: [id number] [place] [address] [place] [address] CK (CREATINE KINASE) + MB (05/28/2020 4:12 AM CDT) Pathologist Sig nature CK 52 33 - 194 U/L [facility] CK-MB 0.27 <=3.50 ng/mL [facility] CKMB INDEX 0.5 0.0 - 2.5 % [facility] Specimen Blood - VENOUS Narrative Performed At [facility] has been reported to cause a negative bias, int erpret [facility] results relative to patient's use of biotin. Performing Organization Address City/[facility] Phone Number [facility] CLIA: [id number] [place], [place] [id number] [address] [place] [address] TROPONIN I (05/28/2020 4:12 AM CDT) Pathologist Sig karthik TROPONIN I 0.089 (H) <=0.034 ng/mL [facility] Specimen Blood - VENOUS Narrative Performed At Equal or Less than 0.034 ng/ml---Normal [facility] Note: Cardiac troponin begins to rise 3-4 hours after the onset of ischemia. Repeat in 4-6 hours if the sample w as drawn within 3-4 hours of the onset of the symptom and found normal. Between 0.035 and 0.120 ng/mL--- Borderline. Questiona ble myocardial injury or necrosis Note: Serial measurement may be necessary to confirm o r exclude the diagnosis of myocardial injury or necrosis ; Clinical correlation (symptoms, EKGs, imaging studies, and others) required; Repeat in 4-6 hours if clinically indicated. Equal or Higher than 0.121 ng/mL---Abnormal. Myocardia l Injury or Necrosis Likely Biotin has been reported to cause a negative bias, int erpret results relative to patient's use of biotin. Performing Organization Address City/State/Zipcode Phone Number [facility] CLIA: [id number] [place] [address] [place] [address] CBC WITHOUT DIFF (05/28/2020 4:12 AM CDT) [facility] [place] WBC 9.21 4.20 - 10.70 [facility] 10*3/L SERVICES RBC 4.62 4.26 - 5.52 [facility] 10*6/L SERVICES HGB 14.7 12.2 - 16.4 g/dL [facility] HCT 42.4 38.4 - 49.3 % [facility] MCH 31.8 26.1 - 32.7 pg [facility] MCV 91.8 81.7 - 95.6 fL [facility] MCHC 34.7 31.2 - 35.0 g/dL [facility] PLT 207 150 - 328 10*3/L [facility] MPV 10.2 9.8 - 13.0 fL [facility] RDW-CV 11.9 (L) 12.1 - 15.4 % [facility] RDW-SD 39.8 38.5 - 51.6 fL [facility] NRBC x10^3 <0.01 10*3/L [facility] NRBC/100 WBC 0.0 0.0 - 10.0 /100 [facility] WBCs SERVICES IPF % [facility] Specimen Blood - VENOUS Performing Organization Address City/State/Zipcode Phone Number [facility] CLIA: [id number] [place] [address] [place] [address] MAGNESIUM (05/28/2020 4:12 AM CDT) [facility] MAGNESIUM 1.9 1.7 - 2.4 mg/dL [facility] Specimen Blood - VENOUS Performing Organization Address City/[facility]/Zipcode Phone Number [facility] [facility] CLIA: [id number] [place] [address] [place] [address] BASIC METABOLIC PANEL (NA, K, CL, CO2, GLUCOSE, BUN, CREATININE, CA) (05/28/2020 4:12 AM CDT) Pathologist Sig nature NA 134 (L) 135 - 145 [facility] mmol/L SERVICES K 4.1 3.5 - 5.0 [facility] mmol/L SERVICES CL 101 98 - 108 mmol/L [facility] CO2 TOTAL 26 23 - 31 mmol/L [facility] AGAP 7 2 - 16 [facility] BUN 18 7 - 23 mg/dL [facility] GLUCOSE 151 (H) 70 - 110 mg/dL [facility] CREATININE 0.78 0.60 - 1.25 [facility] mg/dL SERVICES CALCIUM 8.8 8.6 - 10.6 [facility] mg/dL SERVICES eGFR Calculation 110.2 mL/min/1.73m2 [facility] (Non- SERVICES Indian) eGFR Calculation 133.6 mL/min/1.73m2 [facility] () SERVICES Specimen Blood - VENOUS Narrative Performed At Association of Glomerular Filtration Rate (GFR) and St aging [facility] of Kidney Disease* + + +------- ------ + | GFR (mL/min/1.73 m2) | With Kidney Damage | Wi thout Kidney Damage + + +------- ------ + | >90 | Stage one | Normal + + +------- ------ + | 60-89 | Stage two | Decreased GFR + + +------- ------ + | 30-59 | Stage three | Stage three + + +------- ------ + | 15-29 | Stage four | Stage four + + +------- ------ + | <15 (or dialysis) | Stage five | Stage five + + +------- ------ + *Each stage assumes the associated GFR level has been in effect for at least three months. Stages 1 to 5, wit h or without kidney disease, indicate chronic kidney disease. Notes: Determination of stages one and two (with eGFR >59mL/min/1.73 m2) requires estimation of kidney damag e for at least three months as defined by structural or func tional abnormalities of the kidney, manifested by either: Pathological abnormalities or Markers of kidney damage (including abnormalities in the composition of the blo od or urine or abnormalities in imaging tests) . Performing Organization Address City/[facility] Phone Number [facility] CLIA: [id number] [place] [address] [place] [address] POCT GLUCOSE (AUTOMATED) (05/27/2020 9:38 PM CDT) Pathologist Sig replaced by [facility] POCT GLU 152 (H) 70 - 110 mg/dL [facility] Specimen Blood Performing Organization Address [facility] Phone Number [facility] CLIA: [id number] [place] [address] [place] [address] MAGNESIUM (05/27/2020 9:14 PM CDT) Pathologist Sig nature MAGNESIUM 1.9 1.7 - 2.4 mg/dL [facility] Specimen Blood - VENOUS Performing Organization Address [facility] Phone Number [facility] CLIA: [id number] [place] [address] [place] [address] BASIC METABOLIC PANEL (NA, K, CL, CO2, GLUCOSE, BUN, CREATININE, CA) (05/27/2020 9:14 PM CDT) Pathologist Sig nature NA 134 (L) 135 - 145 [facility] mmol/L SERVICES K 3.9 3.5 - 5.0 [facility] mmol/L SERVICES CL 103 98 - 108 mmol/L [facility] CO2 TOTAL 22 (L) 23 - 31 mmol/L [facility] AGAP 9 2 - 16 [facility] BUN 17 7 - 23 mg/dL [facility] GLUCOSE 149 (H) 70 - 110 mg/dL [facility] CREATININE 0.76 0.60 - 1.25 [facility] mg/dL SERVICES CALCIUM 8.4 (L) 8.6 - 10.6 [facility] mg/dL SERVICES eGFR Calculation 113.6 mL/min/1.73m2 [facility] (Non- SERVICES Indian) eGFR Calculation 137.7 mL/min/1.73m2 [facility] () SERVICES Specimen Blood - VENOUS Narrative Performed [place] [facility] of Glomerular Filtration Rate (GFR) and St aging [facility] of Kidney Disease* + + +------- ------ + | GFR (mL/min/1.73 m2) | With Kidney Damage | Wi thout Kidney Damage + + +------- ------ + | >90 | Stage one | Normal + + +------- ------ + | 60-89 | Stage two | Decreased GFR + + +------- ------ + | 30-59 | Stage three | Stage three + + +------- ------ + | 15-29 | Stage four | Stage four + + +------- ------ + | <15 (or dialysis) | Stage five | Stage five + + +------- ------ + *Each stage assumes the associated GFR level has been in effect for at least three months. Stages 1 to 5, wit h or without kidney disease, indicate chronic kidney disease. Notes: Determination of stages one and two (with eGFR >59mL/min/1.73 m2) requires estimation of kidney damag e for at least three months as defined by structural or func tional abnormalities of the kidney, manifested by either: Pathological abnormalities or Markers of kidney damage (including abnormalities in the composition of the blo od or urine or abnormalities in imaging tests) . Performing Organization Address City/State/Zipcode Phone Number [facility] CLIA: [id number] [place], [place] [id number] [place] [address] CK (CREATINE KINASE) + MB (05/27/2020 9:14 PM CDT) [facility] CK 57 33 - 194 U/L [facility] CK-MB 0.39 <=3.50 ng/mL [facility] CKMB INDEX 0.7 0.0 - 2.5 % [facility] Specimen Blood - VENOUS Narrative Performed At [facility] has been reported to cause a negative bias, int erpret [facility] results relative to patient's use of biotin. Performing Organization Address City/[facility] Phone Number [facility] CLIA: [id number] [place] [address] [address] [facility] TROPONIN I (05/27/2020 9:14 PM CDT) Pathologist Sig replaced by [facility] TROPONIN I 0.087 (H) <=0.034 ng/mL [facility] Specimen Blood - VENOUS Narrative Performed At Equal or Less than 0.034 ng/ml---Normal [facility] Note: Cardiac troponin begins to rise 3-4 hours after the onset of ischemia. Repeat in 4-6 hours if the sample w as drawn within 3-4 hours of the onset of the symptom and found normal. Between 0.035 and 0.120 ng/mL--- Borderline. Questiona ble myocardial injury or necrosis Note: Serial measurement may be necessary to confirm o r exclude the diagnosis of myocardial injury or necrosis ; Clinical correlation (symptoms, EKGs, imaging studies, and others) required; Repeat in 4-6 hours if clinically indicated. Equal or Higher than 0.121 ng/mL---Abnormal. Myocardia l Injury or Necrosis Likely Biotin has been reported to cause a negative bias, int erpret results relative to patient's use of biotin. Performing Organization Address City/[facility] Cent[facility]ode Phone Number [facility] CLIA: [id number] [place] [address] [place] [address] POCT GLUCOSE (AUTOMATED) (05/27/2020 6:07 PM CDT) Pathologist [facility] [email or web address] POCT GLU 159 (H) 70 - 110 mg/dL [facility] Specimen Blood Performing Organization Address City/[facility] Phone Number [facility] CLIA: [id number] [place] [address] [place] [address] POCT GLUCOSE (AUTOMATED) (05/27/2020 11:42 AM CDT) Pathologist [facility] [email or web address] POCT GLU 146 (H) 70 - 110 mg/dL [facility] Specimen Blood Performing Organization Address [facility] Phone Number [facility] CLIA: [id number] [place] [address] [place] [address] POCT GLUCOSE (AUTOMATED) (05/27/2020 7:35 AM CDT) Pathologist Sig nature POCT GLU 196 (H) 70 - 110 mg/dL [facility] Specimen Blood Performing Organization Address City/[facility]/Zipcode Phone Number [facility] CLIA: [id number] [place] [address] [place] [address] aPTT Keep checking till PTT < 45 sec (05/27/2020 3:13 AM CDT) Pathologist Sig nature APTT Patient 32 26 - 36 Seconds [facility] Specimen Blood - VENOUS Performing Organization Address City/[facility]/Zipcode Phone Number [facility] CLIA: [id number] [place] [address] [place] [address] aPTT Keep checking till PTT < 45 sec (05/27/2020 1:07 AM CDT) Pathologist Sig nature APTT Patient >150 (HH) 26 - 36 Seconds [facility] Specimen Blood - VENOUS Performing Organization Address City/[facility] Phone Number [facility] CLIA: [id number] [place] [address] [place] [address] MAGNESIUM (05/27/2020 1:07 AM CDT) Pathologist Sig nature MAGNESIUM 2.1 1.7 - 2.4 mg/dL [facility] Specimen Blood - VENOUS Performing Organization Address City/[facility] Phone Number [facility] CLIA: [id number] [place] [address] [place] [address] BASIC METABOLIC PANEL (NA, K, CL, CO2, GLUCOSE, BUN, CREATININE, CA) (05/27/2020 1:07 AM CDT) Pathologist Sig nature NA 132 (L) 135 - 145 [facility] mmol/L SERVICES K 4.2 3.5 - 5.0 [facility] mmol/L SERVICES CL 98 98 - 108 mmol/L [facility] CO2 TOTAL 29 23 - 31 mmol/L [facility] AGAP 5 2 - 16 [facility] BUN 15 7 - 23 mg/dL [facility] GLUCOSE 174 (H) 70 - 110 mg/dL [facility] CREATININE 0.83 0.60 - 1.25 [facility] mg/dL SERVICES CALCIUM 8.6 8.6 - 10.6 [facility] mg/dL SERVICES eGFR Calculation 102.6 mL/min/1.73m2 [facility] (Non- SERVICES Indian) eGFR Calculation 124.4 mL/min/1.73m2 [facility] () SERVICES Specimen Blood - VENOUS Narrative Performed At Association of Glomerular Filtration Rate (GFR) and St aging [facility] of Kidney Disease* + + +------- ------ + | GFR (mL/min/1.73 m2) | With Kidney Damage | Wi thout Kidney Damage + + +------- ------ + | >90 | Stage one | Normal + + +------- ------ + | 60-89 | Stage two | Decreased GFR + + +------- ------ + | 30-59 | Stage three | Stage three + + +------- ------ + | 15-29 | Stage four | Stage four + + +------- ------ + | <15 (or dialysis) | Stage five | Stage five + + +------- ------ + *Each stage assumes the associated GFR level has been in effect for at least three months. Stages 1 to 5, wit h or without kidney disease, indicate chronic kidney disease. Notes: Determination of stages one and two (with eGFR >59mL/min/1.73 m2) requires estimation of kidney damag e for at least three months as defined by structural or func tional abnormalities of the kidney, manifested by either: Pathological abnormalities or Markers of kidney damage (including abnormalities in the composition of the blo od or urine or abnormalities in imaging tests) . Performing Organization Address [facility] Phone Number [facility] CLIA: [id number] [place] [id number] [address] [place] [address] aPTT (05/26/2020 11:17 PM CDT) [facility] APTT Patient 47 (H) 26 - 36 Seconds [facility] Specimen Blood - VENOUS Performing Organization Address [facility] Phone Number [facility] CLIA: [id number] [place], [place] [id number] [address] [facility] POCT GLUCOSE (AUTOMATED) (05/26/2020 8:55 PM CDT) [facility] POCT GLU 148 (H) 70 - 110 mg/dL [facility] Specimen Blood Performing Organization Address [facility] Phone Number [facility] CLIA: [id number] [place] [address] [phone] [address] [facility] aPTT Keep checking till PTT < 45 sec (05/26/2020 8:55 PM CDT) Pathologist Sig nature APTT Patient >150 (HH) 26 - 36 Seconds [facility] Specimen Blood - VENOUS Performing Organization Address City/[facility] Phone Number [facility] CLIA: [id number] [place] [address] [phone] [address] [facility] POCT ACT LOW RANGE (05/26/2020 6:41 PM CDT) Pathologist Sig nature ACTLR 345 (H) 89 - 169 Seconds [facility] Specimen Blood Performing Organization Address [facility] Phone Number [facility] CLIA: [id number] [place] [address] [phone] [address] [facility] POCT ACT LOW RANGE (05/26/2020 6:33 PM CDT) Pathologist Sig nature ACTLR 253 (H) 89 - 169 Seconds [facility] Specimen Blood Performing Organization Address City/[facility] [place] [facility] Phone Number [facility] CLIA: [id number] [place] [address] [phone] [address] [facility] POCT ACT LOW RANGE (05/26/2020 5:57 PM CDT) Pathologist Sig nature ACTLR 342 (H) 89 - 169 Seconds [facility] Specimen Blood Performing Organization Address [facility] [place] [facility] Phone Number [facility] CLIA: [id number] [place] [address] [phone] [address] [facility] POCT ACT LOW RANGE (05/26/2020 5:22 PM CDT) Pathologist Sig nature ACTLR 284 (H) 89 - 169 Seconds [facility] Specimen Blood Performing Organization Address [facility] Phone Number [facility] CLIA: [id number] [place] [address] [phone] 301 [facility] POCT GLUCOSE (AUTOMATED) (05/26/2020 4:17 PM CDT) Pathologist Sig nature POCT GLU 135 (H) 70 - 110 mg/dL [facility] Specimen Blood Performing Organization Address [facility] Phone Number [facility] CLIA: [id number] [place] [address] [phone] 301 [facility] POCT GLUCOSE (AUTOMATED) (05/26/2020 11:49 AM CDT) Pathologist Sig nature POCT GLU 172 (H) 70 - 110 mg/dL [facility] Specimen Blood Performing Organization Address [facility] Phone Number [facility] CLIA: [id number] [place] [address] [phone] 301 [facility] aPTT (for use with Heparin Practice Guideline). Note: Draw and Send all Lab STAT. (05/26/2020 11:09 AM CDT) Pathologist Sig nature APTT Patient 69 (H) 26 - 36 Seconds [facility] Specimen Blood - ARM, LEFT Performing Organization Address [facility] Phone Number [facility] CLIA: [id number] [place] [address] [phone] [address] [facility] aPTT (for use with Heparin Practice Guideline). Note: Draw and Send all Lab STAT. (05/26/2020 3:19 AM CDT) Pathologist Sig nature APTT Patient >150 (HH) 26 - 36 Seconds [facility] Specimen Blood - VENOUS Performing Organization Address [facility] Phone Number [facility] CLIA: [id number] [place] [address] [place] [address] MAGNESIUM (05/26/2020 3:19 AM CDT) Pathologist Sig nature MAGNESIUM 1.9 1.7 - 2.4 mg/dL [facility] Specimen Blood - VENOUS Performing Organization Address [facility] Phone Number [facility] CLIA: [id number] [place] [address] [phone] [address] [facility] BASIC METABOLIC PANEL (NA, K, CL, CO2, GLUCOSE, BUN, CREATININE, CA) (05/26/2020 3:19 AM CDT) Pathologist Sig nature NA 134 (L) 135 - 145 [facility] mmol/L SERVICES K 4.0 3.5 - 5.0 [facility] mmol/L SERVICES CL 102 98 - 108 mmol/L [facility] CO2 TOTAL 28 23 - 31 mmol/L [facility] AGAP 4 2 - 16 [facility] BUN 17 7 - 23 mg/dL [facility] GLUCOSE 131 (H) 70 - 110 mg/dL [facility] CREATININE 0.74 0.60 - 1.25 [facility] mg/dL SERVICES CALCIUM 8.1 (L) 8.6 - 10.6 [facility] mg/dL SERVICES eGFR Calculation 117.1 mL/min/1.73m2 [facility] (Non- SERVICES Indian) eGFR Calculation 142.0 mL/min/1.73m2 [facility] () SERVICES Specimen Blood - VENOUS Narrative Performed At Association of Glomerular Filtration Rate (GFR) and St aging [facility] of Kidney Disease* + + +------- ------ + | GFR (mL/min/1.73 m2) | With Kidney Damage | Wi johnout Kidney Damage + + +------- ------ + | >90 | Stage one | Normal + + +------- ------ + | 60-89 | Stage two | Decreased GFR + + +------- ------ + | 30-59 | Stage three | Stage three + + +------- ------ + | 15-29 | Stage four | Stage four + + +------- ------ + | <15 (or dialysis) | Stage five | Stage five + + +------- ------ + *Each stage assumes the associated GFR level has been in effect for at least three months. Stages 1 to 5, wit h or without kidney disease, indicate chronic kidney disease. Notes: Determination of stages one and two (with eGFR >59mL/min/1.73 m2) requires estimation of kidney damag e for at least three months as defined by structural or func tional abnormalities of the kidney, manifested by either: Pathological abnormalities or Markers of kidney damage (including abnormalities in the composition of the blo od or urine or abnormalities in imaging tests) . Performing Organization Address City/[facility]/Zipcode Phone Number [facility] CLIA: [id number] [place], [place] [id number] [address] [place] [address] POCT GLUCOSE (AUTOMATED) (05/25/2020 8:42 PM CDT) [facility] POCT GLU 138 (H) 70 - 110 mg/dL [facility] Specimen Blood Performing Organization Address City/[facility] Phone Number [facility] CLIA: [id number] [place] [address] [phone] [address] [employer] [facility] aPTT (for use with Heparin Practice Guideline). Note: Draw and Send all Lab STAT. (05/25/2020 6:45 PM CDT) Pathologist Sig nature APTT Patient >150 (HH) 26 - 36 Seconds [facility] Specimen Blood - ARM, RIGHT Performing Organization Address [facility] Phone Number [facility] CLIA: [id number] [place] [address] [phone] 301 [facility] POCT GLUCOSE (AUTOMATED) (05/25/2020 4:06 PM CDT) Pathologist Sig nature POCT GLU 177 (H) 70 - 110 mg/dL [facility] Specimen Blood Performing Organization Address [facility] Phone Number [facility] CLIA: [id number] [place] [address] [phone] [address] [facility] POCT GLUCOSE (AUTOMATED) (05/25/2020 11:48 AM CDT) Pathologist Sig nature POCT GLU 175 (H) 70 - 110 mg/dL [facility] Specimen Blood Performing Organization Address [facility] Phone Number [facility] CLIA: [id number] [place] [address] [phone] [address] [facility] aPTT (for use with Heparin Practice Guideline). Note: Draw and Send all Lab STAT. (05/25/2020 10:35 AM CDT) Pathologist Sig nature APTT Patient 31 26 - 36 Seconds [facility] Specimen Blood - ARM, LEFT Performing Organization Address [facility] Phone Number [facility] CLIA: [id number] [place] [address] [phone] [address] [facility] POCT GLUCOSE (AUTOMATED) (05/25/2020 7:49 AM CDT) Pathologist Sig nature POCT GLU 140 (H) 70 - 110 mg/dL [facility] Specimen Blood Performing Organization Address City/State/Zipcode Phone Number [facility] CLIA: [id number] [place] [address] [address] [facility] PROTHROMBIN TIME / INR (05/25/2020 7:09 AM CDT) PROTIME PATIENT 10.8 10.1 - 12.6 [facility] Seconds SERVICES INR 1.0Comment: Normal [facility] INR <1.1; Warfarin SERVICES Therapeutic range 2.0 to 3.0 or 2.5 to 3.5, depending upon the indications. Specimen Blood - ARM, LEFT Performing Organization Address [facility] Phone Number [facility] CLIA: [id number] [place] [address] [place] [address] aPTT (for use with Heparin Practice Guideline). Note: Draw and Send all Lab STAT. (05/25/2020 7:09 AM CDT) Pathologist Sig nature APTT Patient 50 (H) 26 - 36 Seconds [facility] Specimen Blood - ARM, LEFT Performing Organization Address [facility] Phone Number [facility] CLIA: [id number] [place] [address] [place] [address] TROPONIN I (05/25/2020 4:37 AM CDT) Pathologist Sig nature TROPONIN I 0.012 <=0.034 ng/mL [facility] Specimen Blood - ARM, LEFT Narrative Performed At Equal or Less than 0.034 ng/ml---Normal [facility] Note: Cardiac troponin begins to rise 3-4 hours after the onset of ischemia. Repeat in 4-6 hours if the sample w as drawn within 3-4 hours of the onset of the symptom and found normal. Between 0.035 and 0.120 ng/mL--- Borderline. Questiona ble myocardial injury or necrosis Note: Serial measurement may be necessary to confirm o r exclude the diagnosis of myocardial injury or necrosis ; Clinical correlation (symptoms, EKGs, imaging studies, and others) required; Repeat in 4-6 hours if clinically indicated. Equal or Higher than 0.121 ng/mL---Abnormal. Myocardia l Injury or Necrosis Likely Biotin has been reported to cause a negative bias, int erpret results relative to patient's use of biotin. Performing Organization Address [facility] Cent[facility]ode Phone Number [facility] CLIA: [id number] [place] [address] [place] [address] MAGNESIUM (05/25/2020 4:37 AM CDT) Pathologist Sig nature MAGNESIUM 2.0 1.7 - 2.4 mg/dL [facility] Specimen Blood - ARM, LEFT Performing Organization Address [facility] Cent[facility]ode Phone Number [facility] CLIA: [id number] [place] [address] [place] [address] BASIC METABOLIC PANEL (NA, K, CL, CO2, GLUCOSE, BUN, CREATININE, CA) (05/25/2020 4:37 AM CDT) Pathologist Sig nature NA 135 135 - 145 [facility] mmol/L SERVICES K 4.5 3.5 - 5.0 [facility] mmol/L SERVICES CL 99 98 - 108 mmol/L [facility] CO2 TOTAL 28 23 - 31 mmol/L [facility] AGAP 8 2 - 16 [facility] BUN 20 7 - 23 mg/dL [facility] GLUCOSE 174 (H) 70 - 110 mg/dL [facility] CREATININE 0.94 0.60 - 1.25 [facility] mg/dL SERVICES CALCIUM 8.5 (L) 8.6 - 10.6 [facility] mg/dL SERVICES eGFR Calculation 88.9 mL/min/1.73m2 [facility] (Non- SERVICES Indian) eGFR Calculation 107.7 mL/min/1.73m2 [facility] () SERVICES Specimen Blood - ARM, LEFT Narrative Performed At Association of Glomerular Filtration Rate (GFR) and St aging [facility] of Kidney Disease* + + +------- ------ + | GFR (mL/min/1.73 m2) | With Kidney Damage | Wi thout Kidney Damage + + +------- ------ + | >90 | Stage one | Normal + + +------- ------ + | 60-89 | Stage two | Decreased GFR + + +------- ------ + | 30-59 | Stage three | Stage three + + +------- ------ + | 15-29 | Stage four | Stage four + + +------- ------ + | <15 (or dialysis) | Stage five | Stage five + + +------- ------ + *Each stage assumes the associated GFR level has been in effect for at least three months. Stages 1 to 5, wit h or without kidney disease, indicate chronic kidney disease. Notes: Determination of stages one and two (with eGFR >59mL/min/1.73 m2) requires estimation of kidney damag e for at least three months as defined by structural or func tional abnormalities of the kidney, manifested by either: Pathological abnormalities or Markers of kidney damage (including abnormalities in the composition of the blo od or urine or abnormalities in imaging tests) . Performing Organization Address [facility] Centercovt Phone Number [facility] CLIA: [id number] [place] [address] [phone] 301 [facility] POCT GLUCOSE (AUTOMATED) (05/25/2020 4:35 AM CDT) Pathologist Sig replaced by [facility] POCT GLU 318 (H) 70 - 110 mg/dL [facility] Specimen Blood Performing Organization Address [facility]ovt Phone Number [facility] CLIA: [id number] [place] [address] [place] [address] MRSA / MSSA Screen by PCR, Nares (05/25/2020 4:01 AM CDT) Pathologist [facility] MRSA Screen by PCR, Negative Negative [facility] Nares SERVICES MSSA Screen by PCR, Positive (A) Negative [facility] Nares SERVICES MRSA/MSSA Positive? Yes (A) No [facility] Specimen Swab - NARES, BOTH SIDES Narrative Performed At A positive test result does not necessarily indicate t he [facility] presence of viable organism. Performing Organization Address [facility] Phone Number [facility] CLIA: [id number] [place] [address] [phone] 301 [facility] aPTT (for use with Heparin Practice Guideline). Note: Draw and Send all Lab STAT. (05/25/2020 12:23 AM CDT) Pathologist [facility] APTT Patient 50 (H) 26 - 36 Seconds [facility] Specimen Blood - ARM, LEFT Performing Organization Address [facility] Phone Number [facility] CLIA: [id number] [place] [address] [phone] 301 [facility] POCT GLUCOSE (AUTOMATED) (05/25/2020 12:22 AM CDT) Pathologist Sig nature POCT GLU 210 (H) 70 - 110 mg/dL [facility] Specimen Blood Performing Organization Address City/[facility] Centercode Phone Number [facility] CLIA: [id number] [place] [address] [address] [facility] POCT GLUCOSE (AUTOMATED) (05/24/2020 6:36 PM CDT) Pathologist Sig nature POCT GLU 200 (H) 70 - 110 mg/dL [facility] Specimen Blood Performing Organization Address City/[facility]t Phone Number [facility] CLIA: [id number] [place] [address] [address] [facility] aPTT (05/24/2020 3:58 PM CDT) Pathologist Sig nature APTT Patient 35 23 - 38 Seconds [facility] Specimen Blood - ARM, LEFT Narrative Performed At The [facility] patient population mean normal value [facility] for aPTT is 30 seconds. Performing Organization Address [facility] Centercode Phone Number [facility] CLIA: [id number] [place] [address] POCT GLUCOSE (AUTOMATED) (05/24/2020 11:44 AM CDT) Pathologist Sig nature POCT GLU 193 (H) 70 - 110 mg/dL [facility] Specimen Blood Performing Organization Address [facility] Centercode Phone Number [facility] CLIA: [id number] [place] [address] aPTT (05/24/2020 9:41 AM CDT) Pathologist Sig nature APTT Patient 28 23 - 38 Seconds [facility] Specimen Blood - ARM, LEFT Narrative Performed At The [facility] patient population mean normal value [facility] for aPTT is 30 seconds. Performing Organization Address [facility] Centercode Phone Number [facility] CLIA: [id number] [place] [address] POCT GLUCOSE (AUTOMATED) (05/24/2020 8:01 AM CDT) Pathologist Sig nature POCT GLU 183 (H) 70 - 110 mg/dL [facility] Specimen Blood Performing Organization Address [facility] Phone Number [facility] CLIA: [id number] [place] [address] TROPONIN I (05/23/2020 9:31 PM CDT) Pathologist Sig nature TROPONIN I 0.005 <=0.034 ng/mL [facility] Specimen Blood - ARM, LEFT Narrative Performed At Equal or Less [...] patient's use of biotin. Performing Organization Address [facility] Phone Number [facility] CLIA: [id number] [place] [address] POCT GLUCOSE (AUTOMATED) (05/23/2020 7:56 PM CDT) Pathologist Sig [email or web address] POCT GLU 123 (H) 70 - 110 mg/dL [facility] Specimen Blood Performing Organization Address [facility]erc[facility]t Phone Number [facility] CLIA: [id number] [place] [address] LOW-DENSITY LIPOPROTEIN, DIRECT (05/23/2020 5:09 PM CDT) Pathologist Sig nature dLDL Chol 125 <130 mg/dL [facility] Specimen Blood - VENOUS Performing Organization Address [facility]/State/Zipcode Phone Number [facility] CLIA: [id number] [place] [address] [place] [address] LIPID PANEL ([id number])(TOTAL CHOLESTEROL, TRIGLYCERIDES, HDL) (05/23/2020 5:09 PM CDT) CHOL 220 (H) 120 - 200 [facility] mg/dL [facility] HDL 39 (L) >40 mg/dL [facility] HDLC RATIO 5.6 (H) <=5.0 [facility] TRIG 587 (H) 30 - 170 mg/dL [facility] LDL CHOL Comment: Unable to [facility] calculate LDL due to HOSPITAL LAB[facility]ORY elevated triglyceride level greater than 400 mg/dL. VLDL 117 (H) 5 - 60 mg/dL [facility] Specimen Blood - VENOUS Performing Organization Address [facility] Phone Number [facility] CLIA: [id number] [place] [address] TROPONIN I (05/23/2020 5:09 PM CDT) Pathologist Sig nature TROPONIN I 0.003 <=0.034 ng/mL [facility] Specimen Blood - VENOUS Narrative [...] patient's use of biotin. Performing Organization Address [facility] Phone Number [facility] CLIA: [id number] [place] [address] CHEST PULMONARY ANGIOGRAM (05/23/2020 4:10 PM CDT) Specimen Narrative Performed At HISTORY: Shortness of breath, rule out P .E. PACS/VR/DOSE TECHNIQUE: Contrast-enhanced 64-mutidete ctor CT scan of the chest was completed with intravenous injection of Omnipaque-35 0 non ionic contrast medium. Subsequently numerous sagittal, coronal and UT P reformations were generated. FINDINGS: Comparison is made with a rece nt CT scan of the chest dated 10/31/2019. Small portions of the thyroid gland included showed no abnormality. Trachea and central bronchial airways appear nor mal. No acute pulmonary thromboembolism detec melissa. Lungs are free of acute infiltrates. No pulmonary nodules seen. No pleural or pericardial effusion, pneumothorax or pneumomediastinum. No ao rtic aneurysm or dissection. Slightly prominent lymph nodes are seen in both right and left south, unchanged when compared with the previou s study. Main pulmonary artery is measuring 3 cm today. Atherosclerosis is noted with calcifications in LAD coronary artery, its branch es, right coronary as well as LCx coronary arteries. Degenerative changes noted with a rather large osteophytes along the ventral vertebral margins at lower thora cic levels. CONCLUSIONS: 1. No acute pulmonary thromboembolism. 2. Triple vessel coronary atherosclerosi s. Procedure Note [facility], Radiant Results Inft User - 2019 4:19 PM CDT HISTORY: Shortness of breath, rule out P.E. TECHNIQUE: Contrast-enhanced 64-mutidete ctor CT scan of the chest was completed with intravenous injection of Omnipaque-350 non ionic contrast medium. Subsequently numerous sagittal, coronal and MIP reformations were generated. FINDINGS: Comparison is made with a [facility] nt CT scan of the chest dated 10/31/2019. Small portions of the thyroid gland incl uded showed no abnormality. Trachea and central bronchial airways appear nor mal. No acute pulmonary thromboembolism detec melissa. Lungs are free of acute infiltrates. No pulmonary nodules seen. No pleural or pericardial effusion, pneumothorax or pneumomediastinum. No ao rtic aneurysm or dissection. Slightly prominent lymph nodes are seen in both right and left south, unchanged when compared with the previou s study. Main pulmonary artery is measuring 3 cm today. Atherosclerosis is noted with calcifications in LAD coronary ema ry, its branches, right coronary as well as LCx coronary arteries. Degenerative changes noted with a rather large osteophytes along the ventral vertebral margins at lower thora cic levels. CONCLUSIONS: 1. No acute pulmonary thromboembolism. 2. Triple vessel coronary atherosclerosi s. Performing Organization Address [facility] Phone Number PACS/VR/DOSE Chest 1 View (05/23/2020 3:10 PM CDT) Specimen Narrative Performed At HISTORY: SOB. PACS/VR/DOSE TECHNIQUE: Portable AP erect view of the chest is obta ined. Comparison made with 05/15/2019 study. FINDINGS: No acute pneumonia. No pneumot horax or pleural effusion or pulmonary congestion detected. Cardiac s ize is within normal limits. Central pulmonary arteries are slightly dilated without amilcar acute interstitial pulmonary edema. CONCLUSIONS: No signs of acute cardiopulmonary disease . Procedure Note [facility], Radiant Results Inft User - 2019 3:16 PM CDT HISTORY: SOB. TECHNIQUE: Portable AP erect view of the chest is obtained. Comparison made with 05/15/2019 study. FINDINGS: No acute pneumonia. No pneumot horax or pleural effusion or pulmonary congestion detected. Cardiac s ize is within normal limits. Central pulmonary arteries are slightly dilated without amilcar acute interstitial pulmonary edema. CONCLUSIONS: No signs of acute cardiopul monary disease. Performing Organization Address [facility] Phone Number PACS/VR/DOSE Urinalysis (05/23/2020 3:10 PM CDT) Pathologist Sig nature APPEARANCE Clear Clear [facility] COLOR Straw (A) Yellow [facility] PH 6.0 4.8 - 8.0 [facility] SP GRAVITY 1.022 1.003 - 1.030 [facility] GLU U QUAL 500 mg/dL (A) Normal [facility] BLOOD Negative Negative [facility] KETONES Negative Negative [facility] PROTEIN Negative Negative [facility] UROBILIN Normal Normal [facility] BILIRUBIN Negative Negative [facility] NITRITE Negative Negative [facility] LEUK MARCI Negative Negative [facility] RBC/HPF <1 0 - 3 HPF [facility] WBC/HPF <1 0 - 5 HPF [facility] BACTERIA Negative Negative [facility] HYAL CAST 1 <=2 LPF [facility] Specimen Urine - URINE, CLEAN CATCH Performing Organization Address [facility] Centercode Phone Number [facility] CLIA: [id number] [place] [address] [place] [address] GLYCOSYLATED HEMOGLOBIN (A1C) (05/23/2020 2:36 PM CDT) Pathologist Sig nature HGB A1C 9.7 (H) 4.0 - 6.0 % [facility] Specimen Blood - VENOUS Narrative Performed At %A1C (NGSP) Interpretation (ADA) [facility] 4.8-5.6 Normal or (Non-Diabetic Ra nge) 5.7-6.4 Increased Risk (Pre-Diabet ic) >6.5 Diabetes Indicated Performing Organization Address [facility] Phone Number [facility] CLIA: [id number] [place] [address] COVID-19 (ID NOW RAPID TESTING) (05/23/2020 2:36 PM CDT) SARS-CoV-2 Rapid ID Not Detected Not Detected [facility] Specimen Swab - NASOPHARYNGEAL SWAB Narrative Performed At ID NOW COVID-19 Assay is an isothermal nucleic [facility] acid amplification test intended for the qualitative detection of nucleic acid from SARS-CoV-2 viral RNA in nasopharyngeal ([employer]) specimens. It is used under Emergency Use [...] testing if clinically indicated. Performing Organization Address [facility] Cent[facility]ode Phone Number [facility] CLIA: [id number] [place] [address] [place] [address] N-TERMINAL PRO-BNP (05/23/2020 2:36 PM CDT) [facility] NT-proBNP 407 (H) <=125 pg/mL [facility] Specimen Blood - VENOUS Narrative Performed At Biotin has been reported to cause a negative [facility] bias, interpret results relative to patient's use of biotin. Performing Organization Address [facility] Phone Number [facility] CLIA: [id number] [place] [address] [place] [address] Troponin I (05/23/2020 2:36 PM CDT) [facility] TROPONIN I 0.003 <=0.034 ng/mL [facility] Specimen Blood - VENOUS Narrative [...] patient's use of biotin. Performing Organization Address [facility] Phone Number [facility] CLIA: [id number] [place] [address] Hepatic Function Panel (ALB, T.PRO, BILI T, BU/BC, ALT, AST, ALK PHOS) (05/23/2020 2:36 PM CDT) [facility] TOTAL BILI 0.4 0.1 - 1.1 mg/dL [facility] BILI UNCON 0.6 0.1 - 1.1 mg/dL [facility] BILI CONJ 0.0 0.0 - 0.3 mg/dL [facility] T PROTEIN 7.2 6.3 - 8.2 g/dL [facility] ALBUMIN 4.2 3.5 - 5.0 g/dL [facility] ALK PHOS 83 34 - 122 U/L [facility] ALTv 31 5 - 50 U/L [facility] AST(SGOT) 27 13 - 40 U/L [facility] Specimen Blood - VENOUS Performing Organization Address City/State/Zipcode Phone Number [facility] CLIA: [id number] [place] [address] Basic Metabolic Panel (NA, K, CL, CO2, GLUCOSE, BUN, CREATININE, CA) (05/23/2020 2:36 PM CDT) [facility] NA 133 (L) 135 - 145 [facility] mmol/L [facility] K 4.8 3.5 - 5.0 [facility] mmol/L [facility] CL 98 98 - 108 mmol/L [facility] CO2 TOTAL 24 23 - 31 mmol/L [facility] AGAP 11 2 - 16 [facility] BUN 19 7 - 23 mg/dL [facility] GLUCOSE 311 (H) 70 - 110 mg/dL [facility] CREATININE 0.72 0.60 - 1.25 [facility] mg/dL [facility] CALCIUM 9.5 8.6 - 10.6 [facility] mg/dL [facility] eGFR Calculation 120.9 mL/min/1.73m2 [facility] (Non-[facility] LABORATORY Indian) eGFR Calculation 146.5 mL/min/1.73m2 [facility] () [facility] Specimen Blood - VENOUS Narrative Performed At Association of Glomerular Filtration Rate (GFR) [facility] and Staging of Kidney Disease* [...] Address City/State/Zipcode Phone Number [facility] CLIA: [id number] [place] [address] CBC with Differential (05/23/2020 2:36 PM CDT) Pathologist [facility] WBC 9.88 4.20 - 10.70 [facility] 10*3/L [facility] RBC 5.13 4.26 - 5.52 [facility] 10*6/L [facility] HGB 16.3 12.2 - 16.4 [facility] g/dL [facility] HCT 46.5 38.4 - 49.3 % [facility] MCV 90.6 81.7 - 95.6 fL [facility] MCH 31.8 26.1 - 32.7 pg [facility] MCHC 35.1 (H) 31.2 - 35.0 [facility] g/dL [facility] RDW-SD 39.4 38.5 - 51.6 fL [facility] RDW-CV 11.9 (L) 12.1 - 15.4 % [facility] PLT 259 150 - 328 [facility] 10*3/L [facility] MPV 11.2 9.8 - 13.0 fL [facility] NRBC/100 WBC 0.0 0.0 - 10.0 /100 [facility] WBCs [facility] NRBC x10^3 <0.01 10*3/L [facility] GRAN MAT (NEUT) % 61.9 % [facility] IMM GRAN % 0.50 % [facility] LYMPH % 27.4 % [facility] MONO % 8.7 % [facility] EOS % 1.2 % [facility] BASO % 0.3 % [facility] GRAN MAT x10^3(ANC) 6.11 1.99 - 6.95 [facility] 10*3/uL [facility] IMM GRAN x10^3 0.05 0.00 - 0.06 [facility] 10*3/uL [facility] LYMPH x10^3 2.71 1.09 - 3.23 [facility] 10*3/uL [facility] MONO x10^3 0.86 0.36 - 1.02 [facility] 10*3/uL [facility] EOS x10^3 0.12 0.06 - 0.53 [facility] 10*3/uL [facility] BASO x10^3 0.03 0.01 - 0.[address]/[facility] LABORATORY Specimen Blood - VENOUS Performing Organization Address City/State/Zipcode Phone Number [facility] CLIA: [id number] [place] [address] documented in this encounter Visit Diagnoses Diagnosis Chest pain, unspecified type Shortness of breath Unstable angina Intermediate coronary syndrome Type 2 diabetes mellitus without complic ation, without long-term current use of insulin Family history of early CAD Family history of ischemic heart disease Essential hypertension Unspecified essential hypertension Coronary artery calcification documented in this encounter Administered Medications Medication Order MAR Action Action Date Dose Rate Site acetaminophen (TYLENOL) tablet 650 mg 650 mg, Oral, Q6HPRN, Starting Fri at 1700, Until Discontinued, Routine, Pain (scale 1-3) amLODIPine (NORVASC) tablet 2.5 mg 2.5 mg, Oral, DAILY, First dose on Fri at 0900, Until Discontinued, Routine aspirin chewable tablet 81 mg Given 05/28/2020 8:15 AM CDT 81 mg 81 mg, Oral, DAILY, First dose (after last modification) on Fri05/24/20 at 0900, Until Discontinued, Routine Given 05/27/2020 7:15 AM CDT 81 mg Given 05/26/2020 7:31 AM CDT 81 mg atorvastatin (LIPITOR) tablet 80 mg Given 05/28/2020 8:15 AM CDT 80 mg 80 mg, Oral, DAILY, First dose on Fri05/24/20 at 0900, Until Discontinued, Routine Given 05/27/2020 7:15 AM CDT 80 mg Given 05/26/2020 7:31 AM CDT 80 mg clopidogreL (PLAVIX) tablet 75 mg Given 05/28/2020 8:15 AM CDT 75 mg 75 mg, Oral, DAILY, First dose on Fri05/27/20 at 0900, Until Discontinued, Routine, aboriginal community council member approving Restricted medication: PEPE RAMIRES Given 05/27/2020 7:15 AM CDT 75 mg fenofibrate micronized (LOFIBRA) capsule 67 Given 05/28/2020 8:15 AM CDT 67 mg mg 67 mg, Oral, DAILY, First dose on Fri05/28/20 at 0900, Until Discontinued, Routine fluticasone propionate 50 mcg/actuation Given 05/28/2020 12:00 P M CDT 1 [place] nasal spray 1 [place] 1 [place], Nasal, DAILY, First dose on Fri05/24/20 at 0900, Until Discontinued, Routine Given 05/27/2020 7:17 AM CDT 1 [place] Given 05/26/2020 7:32 AM CDT 1 [place] gabapentin (NEURONTIN) capsule 600 mg Given 05/28/2020 1:15 PM CDT 600 mg 600 mg, Oral, TID, First dose on Fri05/24/20 at 0800, Until Discontinued, Routine Given 05/28/2020 8:15 AM CDT 600 mg Given 05/27/2020 7:54 PM CDT 600 mg heparin (porcine) injection Given 05/28/2020 8:15 AM CDT 5,000 Units Abdomen-SC 5,000 Units 5,000 Units, Subcutaneous, Q12H, First dose on 05/27/20 at 2000, Until Discontinued, Routine Given 05/27/2020 7:54 PM CDT 5,000 Units Abdo men-SC HYDROcodone-acetaminophen (NORCO) 10-325 Given 05/28/2020 9 :02 AM CDT 1 tablet mg tablet 1 tablet 1 tablet, Oral, Q6HPRN, Starting 05/27/20 at 1115, Until Discontinued, Routine, Pain (scale 4-6), Pain (scale 7-10) Given 05/27/2020 8:09 PM CDT 1 tablet Given 05/27/2020 1:32 PM CDT 1 tablet isosorbide mononitrate (IMDUR) 24 hr tablet Given 11/2019 10:22 AM CDT 120 mg 120 mg 120 mg, Oral, DAILY, First dose (after last modification) on Fri05/28/20 at 0900, Until Discontinued, Routine lisinopriL (PRINIVIL,ZESTRIL) tablet 2.5 mg Given 05/28/2020 9:02 AM CDT 2.5 mg 2.5 mg, Oral, DAILY, First dose on Fri05/27/20 at 1130, Until Discontinued, Routine Given 05/27/2020 12:18 PM CDT 2.5 mg methocarbamoL (ROBAXIN) tablet 750 mg Given 05/28/2020 1:16 PM CDT 750 mg 750 mg, Oral, QID, First dose on Fri05/24/20 at 0800, Until Discontinued, Routine Given 05/28/2020 8:15 AM CDT 750 mg Given 05/27/2020 9:38 PM CDT 750 mg metoprolol tartrate (LOPRESSOR) tablet 100 Given 05/28/2020 9:02 AM CDT 100 mg mg 100 mg, Oral, BID, First dose (after last modification) on Fri05/27/20 at 2000, Until Discontinued, Routine Given 05/27/2020 7:54 PM CDT 100 mg nitroglycerin (NITROSTAT) sublingual tablet Given 11/2019 8:17 AM CDT 0.4 mg 0.4 mg 0.4 mg, Sublingual, Q5MIN PRN, Starting Fri05/23/20 at 1700, Until Discontinued, Routine, Chest pain Given 05/27/2020 8:01 PM CDT 0.4 mg Given 05/27/2020 7:54 PM CDT 0.4 mg ondansetron (ZOFRAN (PF)) injection 4 mg Given 05/27/2020 4:36 PM CDT 4 mg 4 mg, Slow IV Push, Q6HPRN, Starting Fri05/27/20 at 1617, Until Discontinued, Routine, Nausea and Vomiting (N/V) Sliding Scale Insulin - Aspart (NOVOLOG) + Fsbg Testing Subcutaneous, TID MEALS+HS, First dose ( after last modification) on Fri05/26/20 at 0800, Until Discontinued, Routine Medication Order MAR Action Action Date Dose Rate Site aspirin tablet 325 mg Given 05/23/2020 2:41 PM CDT 325 mg 325 mg, Oral, ONCE, 1 dose, Fri05/23/20 at 1445, STAT clopidogreL (PLAVIX) tablet 600 mg Given 05/26/2020 11:57 AM CDT 600 mg 600 mg, Oral, ONCE, 1 dose, Fri05/26/20 at 0845, Routine FENTanyl PF (SUBLIMAZE (PF)) injection Given 05/25/2020 8:29 AM CDT 25 mcg Slow IV Push, TITRATE - FOR PROCEDURE USE, 1 dose, Starting Cathy 05/25/20 at 0829, Until Cathy 05/25/20 at 0829, Routine FENTanyl PF (SUBLIMAZE (PF)) injection Given 05/25/2020 8:45 AM CDT 25 mcg Slow IV Push, TITRATE - FOR PROCEDURE USE, 1 dose, Starting Cathy 05/25/20 at 0845, Until Cathy 05/25/20 at 0845, Routine FENTanyl PF (SUBLIMAZE (PF)) injection Given 05/26/2020 5:29 PM CDT 25 mcg Slow IV Push, TITRATE - FOR PROCEDURE USE, 1 dose, Starting Fri05/26/20 at 1729, Until Fri05/26/20 at 1729, Routine FENTanyl PF (SUBLIMAZE (PF)) injection Given 05/26/2020 5:10 PM CDT 25 mcg Slow IV Push, TITRATE - FOR PROCEDURE USE, 1 dose, Starting Fri05/26/20 at 1710, Until Fri05/26/20 at 1710, Routine FENTanyl PF (SUBLIMAZE (PF)) injection Given 05/26/2020 5:46 PM CDT 25 mcg Slow IV Push, TITRATE - FOR PROCEDURE USE, 1 dose, Starting Fri05/26/20 at 1746, Until Fri05/26/20 at 1746, Routine FENTanyl PF (SUBLIMAZE (PF)) injection Given 05/26/2020 5:51 PM CDT 25 mcg Slow IV Push, TITRATE - FOR PROCEDURE USE, 1 dose, Starting Fri05/26/20 at 1751, Until Fri05/26/20 at 1751, Routine flu vaccine 6 months and up Given 05/28/2020 1:17 PM CDT 0.5 mL Left Deltoid-IM (PF) (FLUZONE QUAD (PF)) syringe 0.5 mL 0.5 mL, Intramuscular, ONCE, 1 dose, 05/28/20 at 1215, Routine glipiZIDE (GLUCOTROL) tablet 5 mg Given 05/24/2020 3:56 PM CDT 5 mg 5 mg, Oral, BIDAC, First dose on Fri05/24/20 at 0730, Until Discontinued, Routine Given 05/24/2020 8:34 AM CDT 5 mg heparin (1,000 unit/mL, 10 mL vial) for Given 05/24/20 6:45 PM CDT 3,000 Units Rebolusing FOR REBOLUSING, Starting Fri05/24/20 at 0830, Until 05/27/20 at 0003, Routine, Dosing based on aPTT testing parameters (refer to continuous heparin drip order)., heparin 1,000 unit/mL injection Given 05/26/2020 5:20 PM CDT 10,000 Units Slow IV Push, TITRATE - FOR PROCEDURE USE, 1 dose, Starting Fri05/26/20 at 1720, Until Fri05/26/20 at 1720, Routine heparin 1,000 unit/mL injection Given 05/26/2020 6:42 PM CDT 3,000 Units Slow IV Push, TITRATE - FOR PROCEDURE USE, 1 dose, Starting Fri05/26/20 at 1842, Until Fri05/26/20 at 1842, Routine heparin 1000 unit/mL injection Soln Given 05/24/2020 9:51 AM CD T 4,000 Units 4,000 Units 4,000 Units, IV Push, ONCE, 1 dose, Fri05/24/20 at 0845, Routine heparin 25,000 Units/250 mL (Premixed Ba g) in 0.45 % NS New 05/26/2020 1,000 10 1,000 Units/hr (10 mL/hr), IV Infusion, TITRATE, Parameters in Admin. Bag 12:35 PM Units/hr mL/hr Instr., Starting Fri05/24/20 at 0930, CAUTION - If LMWH given in ER, CDT AVOID bolus and start next dose/drip 12 hrs after ER dosage. Must program rate using programmable infusion pump. Check with the orderi ng provider first prior to any administration should the patient be on existing/additional anticoagulant therapy. Range, Dosing and Testing : _ FOR [facility], [facility], AND [facility] ONLY - aPTT < 35: Bolus 500 0 units, increase rate 300 units/hr - aPTT 35-44: Bolus 3000 units, increase rate 200 units/hr - aPTT 45-54: Increase rate 100 units/hr - aPTT 55-85: NO CHANGE - aPTT 86-95: Decrease rate 100 units/hr - aPTT 96-120: Hold 30 minutes, decrease rate 150 units/hr - aPTT > 120: Hold 60 minutes, decrease rate 200 units/hr Check aPTT 6 hours after initiation, then Q6H after every change, aPTT Q12H once therapeutic levels are reached. _ FOR [facility] ONLY - aPTT < 40: Bolus 5000 units, increase rate 3 00 units/hr - aPTT 40-49: Bolus 3000 units, increase rate 200 units/hr - aPTT 50-59: Increase rate 100 units/hr - aPTT 60-85: NO CHANGE - aPTT 86-95: Decrease rate 100 units/hr - aPTT 96-120: Hold 30 minutes, decrease rate 150 units/hr - aPTT > 120: Hold 60 minute s, decrease rate 200 units/hr Check aPTT 6 hours after initiation, then Q6H after every change, aPTT Q12H once therapeutic levels are reached . DO NOT ADJUST INITIAL BOLUS OR INITIAL INFUSION RATE., Dose/Rate Verify 05/26/2020 12:19 PM CDT 1,000 Units/hr 10 mL/hr Restarted 05/26/2020 5:33 AM CDT 1,000 Units/hr 10 mL/hr HYDROcodone-acetaminophen (NORCO) 10-325 Given 05/25/2020 10 :48 AM CDT 1 tablet mg tablet 1 tablet 1 tablet, Oral, Q6HPRN, Starting 05/23/20 at 2020, Until Cathy 05/25/20 at 1517, Routine, Pain (scale 4-6) Given 05/24/2020 6:51 PM CDT 1 tablet Given 05/24/2020 12:06 PM CDT 1 tablet HYDROcodone-acetaminophen (NORCO) 10-325 Given 05/27/2020 7 :15 AM CDT 1 tablet mg tablet 1 tablet 1 tablet, Oral, Q4HPRN, Starting Cathy 05/25/20 at 1530, Until 05/27/20 at 1101, Routine, Pain (scale 4-6) Given 05/27/2020 12:41 AM CDT 1 tablet Given 05/26/2020 2:00 PM CDT 1 tablet hydrOXYzine (ATARAX) tablet 10 mg Given 05/24/2020 4:32 PM CDT 10 mg 10 mg, Oral, ONCE, 1 dose, Fri05/24/20 at 1630, Routine hydrOXYzine (ATARAX) tablet 50 mg Given 05/26/2020 12:27 AM CDT 50 mg 50 mg, Oral, ONCE, 1 dose, Fri05/26/20 at 0100, Routine hydrOXYzine (ATARAX) tablet 50 mg Given 05/26/2020 10:04 PM CDT 50 mg 50 mg, Oral, ONCE, 1 dose, 05/26/20 at 2115, Routine hydrOXYzine (ATARAX) tablet 50 mg Given 05/27/2020 11:12 PM CDT 50 mg 50 mg, Oral, ONCE, 1 dose, 05/27/20 at 2200, Routine iohexol (OMNIPAQUE 350 BULK-150 mL) Given 05/23/2020 3:55 PM CD T 120 mL injection 120 mL 120 mL, Intravenous, ONCE, 1 dose, 05/23/20 at 1615, Routine isosorbide mononitrate (IMDUR) 24 hr tablet Given 05/25/2020 12:36 PM CDT 30 mg 30 mg 30 mg, Oral, DAILY, First dose on Cathy 05/25/20 at 1115, Until Discontinued, Routine isosorbide mononitrate (IMDUR) 24 hr tablet Given 05/27/2020 7:15 AM CDT 60 mg 60 mg 60 mg, Oral, DAILY, First dose (after last modification) on Fri05/26/20 at 0900, Until Discontinued, Routine Given 05/26/2020 7:32 AM CDT 60 mg KCL (KLOR-CON M20) tablet 20 mEq Given 05/28/2020 4:13 AM CDT 20 mEq 20 mEq, Oral, ONCE, 1 dose, [place] 05/28/20 at 0130, Routine lidocaine 1% (PF) (XYLOCAINE) injection Given 05/25/2020 8:46 AM CDT 5 mL Infiltration, TITRATE - FOR PROCEDURE USE, 1 dose, Starting Cathy 05/25/20 at 0846, Until Cathy 05/25/20 at 0846, Routine lidocaine 1% (PF) (XYLOCAINE) injection Given 05/26/2020 5:15 PM CDT 5 mL Infiltration, TITRATE - FOR PROCEDURE USE, 1 dose, Starting Fri05/26/20 at 1715, Until Fri05/26/20 at 1715, Routine LORazepam (ATIVAN) tablet 0.5 mg Given 05/23/2020 5:15 PM CDT 0.5 mg 0.5 mg, Oral, ONCE, 1 dose, Fri05/23/20 at 1700, RADHA maalox:diphenhydrAMINE:lidocaine 2 % viscous Given 9:14 PM CDT 15 mL 1:1:1 (FIRST-MOUTHWASH BLM) oral suspension 15 mL 15 mL, Oral, ONCE, 1 dose, Fri05/23/20 at 2130, Routine magnesium sulfate in water 2 gram/50 mL (4 %) New Bag 5:37 AM CDT 2 g infusion 2 g 2 g, IV Piggyback, ONCE, 1 dose, Fri05/26/20 at 0600, Routine magnesium sulfate in water 2 gram/50 mL (4 %) New Bag 4:13 AM CDT 2 g infusion 2 g 2 g, IV Piggyback, ONCE, 1 dose, [place] 05/28/20 at 0130, Routine metoprolol tartrate (LOPRESSOR) tablet 5 0 mg Given 05/25/2020 8:15 PM CDT 50 mg 50 mg, Oral, BID, First dose on Fri05/23/20 at 2030, Until Discontinued, Routine Given 05/25/2020 10:45 AM CDT 50 mg Given 05/24/2020 8:52 PM CDT 50 mg metoprolol tartrate (LOPRESSOR) tablet 7 5 mg Given 05/27/2020 7:15 AM CDT 75 mg 75 mg, Oral, BID, First dose (after last modification) on Fri05/26/20 at 0800, Until Discontinued, Routine Given 05/26/2020 8:42 PM CDT 75 mg Given 05/26/2020 7:31 AM CDT 75 mg midazolam (VERSED) injection Given 05/25/2020 8:29 AM CDT 1 mg IV Push, TITRATE - FOR PROCEDURE USE, 1 dose, Starting Cathy 05/25/20 at 0829, Until Cathy 05/25/20 at 0829, Routine midazolam (VERSED) injection Given 05/25/2020 8:45 AM CDT 1 mg IV Push, TITRATE - FOR PROCEDURE USE, 1 dose, Starting Cathy 05/25/20 at 0845, Until Cathy 05/25/20 at 0845, Routine midazolam (VERSED) injection Given 05/26/2020 5:29 PM CDT 1 mg IV Push, TITRATE - FOR PROCEDURE USE, 1 dose, Starting Fri05/26/20 at 1729, Until Fri05/26/20 at 1729, Routine midazolam (VERSED) injection Given 05/26/2020 5:10 PM CDT 1 mg IV Push, TITRATE - FOR PROCEDURE USE, 1 dose, Starting Fri05/26/20 at 1710, Until Fri05/26/20 at 1710, Routine midazolam (VERSED) injection Given 05/26/2020 6:24 PM CDT 1 mg IV Push, TITRATE - FOR PROCEDURE USE, 1 dose, Starting Fri05/26/20 at 1824, Until Fri05/26/20 at 1824, Routine morpHINE injection 2 mg Given 05/24/2020 8:52 PM CDT 2 mg 2 mg, Slow IV Push, Q4HPRN, Starting Fri05/23/20 at 2021, Until Fri05/24/20 at 2144, Routine, Pain (scale 7-10), Hold for SBP<110, DBP<60, RR<12, and/or drowsiness/sedation Given 05/24/2020 2:38 PM CDT 2 mg Given 05/24/2020 9:50 AM CDT 2 mg morpHINE injection 2 mg Given 05/25/2020 12:44 PM CDT 2 mg 2 mg, Slow IV Push, ONCE, 1 dose, [facility] 05/25/20 at 1345, Routine morpHINE injection 2 mg Given 05/27/2020 10:22 AM CDT 2 mg 2 mg, Slow IV Push, Q6HPRN, Starting Cathy 05/25/20 at 2148, Until 05/27/20 at 1101, Routine, Pain (scale 7-10) Given 05/27/2020 4:10 AM CDT 2 mg Given 05/26/2020 8:42 PM CDT 2 mg morpHINE injection 2 mg Given 05/27/2020 9:51 PM CDT 2 mg 2 mg, Slow IV Push, ONCE, 1 dose, 05/27/20 at 2300, Routine morpHINE injection 2 mg Given 05/27/2020 11:39 PM CDT 2 mg 2 mg, Slow IV Push, ONCE, 1 dose, 05/27/20 at 2330, Routine morpHINE injection 4 mg Given 05/23/2020 4:29 PM CDT 4 mg 4 mg, Slow IV Push, ONCE, 1 dose, 05/23/20 at 1545, STAT NaCl 0.9% (NS) bolus infusion 500 New Bag 05/23/2020 4:29 PM CDT 500 mL 999 mL/hr mL at 999 mL/hr, 500 mL, IV Infusion, ONCE, 1 dose, 05/23/20 at 1545, STAT nitroglycerin (NITROL) 2 % ointment 1 In ch Given 05/24/2020 9:40 AM CDT 1 Inch 1 Inch, Transdermal (Apply To Skin), ONCE, 1 dose, Fri05/24/20 at 0945, Routine nitroglycerin (NITROSTAT) sublingual tablet Given 04/26 4:52 PM CDT 0.4 mg 0.4 mg 0.4 mg, Sublingual, ONCE, 1 dose, 05/23/20 at 1645, RADHA nitroglycerin 50 mg in D5W Rate Change 05/27/2020 8:01 AM CDT 5 m cg/min 1.5 mL/hr 250 mL infusion RTU 5 mcg/min (1.5 mL/hr), IV Infusion, CONTINUOUS, Starting 05/24/20 at 2230 Rate Change 05/27/2020 7:30 AM CDT 10 mcg/min 3 mL/hr Rate Change 05/27/2020 7:07 AM CDT 20 mcg/min 6 mL/hr ondansetron (ZOFRAN (PF)) injection 4 mg Given 05/23/2020 4:29 PM CDT 4 mg 4 mg, Slow IV Push, ONCE, 1 dose, Fri05/23/20 at 1545, RADHA ondansetron (ZOFRAN (PF)) injection 4 mg Given 05/25/2020 4:55 PM CDT 4 mg 4 mg, Slow IV Push, Q4HPRN, Starting Fri05/23/20 at 2045, Until 05/27/20 at 1125, Routine, Nausea and Vomiting (N/V) Given 05/24/2020 5:48 AM CDT 4 mg Given 05/23/2020 9:14 PM CDT 4 mg pneumococcal vac polyvalent Given 05/28/2020 1:58 PM CDT 0.5 mL Right Deltoid-IM (PNEUMOVAX-23) injection 0.5 mL 0.5 mL, Intramuscular, ONCE, 1 dose, 05/28/20 at 1215, Routine Sliding Scale Insulin - Aspart Given 05/24/2020 6:44 PM 2 Units Right Upper (NOVOLOG) + Fsbg Testing CDT Arm-SC Subcutaneous, AC+HS, First dose on Fri05/23/20 at 2100, Until Discontinued, Routine Sliding Scale Insulin - Aspart Given 05/25/2020 4:38 AM CDT 6 U nits Abdomen-SC (NOVOLOG) + Fsbg Testing Subcutaneous, Q4H, First dose (after last modification) on Cathy 05/25/20 at 0000, Until Discontinued, Routine Given 05/25/2020 12:00 AM CDT 2 Units Abdo men-SC sulfur hexafluoride microsphr (LUMASON) Given 05/24/2020 9:30 A M CDT 5 mL injection 5 mL 5 mL, Intravenous, ONCE, 1 dose, 05/24/20 at 0930, Routine, [employer] community council member approving Restricted medication: JULIUS CORREA documented in this encounter Additional Health Concerns Infection Onset Date Last Indicated Resolved Time MSSA Nasal Colonization 05/11/2019 05/11/2019 05/25/20 20 8:12 AM CDT COVID-19 Rule Out 05/23/2020 05/23/2020 05/23/2020 3: 14 PM CDT documented as of this encounter
--- OUTSIDE RECORDS SUMMARY | 2020-07-15 08:54 | XMS REPORT | Summary of Care ---
:1980 Author Organization [facility] Address [address] [place] [id number] Care Team Providers Name Role Phone Omari Thao Primary Care Provider Reason for Visit Reason Comments Transition Of Care Encounter Details Date Type Department Care Team Description 05/30/2020 Transition of Care [facility] Pati Banerjee Transition Of Care Health [facility]- [address] [place] [id number] Allergies No Known Allergiesdocumented as of this encounter (statuses as of 05/31/2020) Medications Medication Sig Dispensed Refills Start Date [...] insulin Insulin Glargine (LANTUS inject 27 Units 15 mL 3 9 Active SOLOSTAR U-100 INSULIN) under the skin 100 unit/mL (3 mL) daily. injectionIndications: Type 2 diabetes mellitus without complication, without long-term current use of insulin artificial Place 1 Drop in 15 mL 3 05/15/2019 Ac tive tears,hypromellose, 0.5 both eyes 4 (four) % ophthalmic times daily. dropsIndications: Orbital cellulitis, right dorzolamide-timolol Place 1 Drop in 10 mL 3 05/15/2019 Active 22.3-6.8 mg/mL right eye 2 (two) ophthalmic times daily. dropsIndications: Orbital cellulitis, right omeprazole 40 mg Take 1 capsule by 90 capsule 4 05/16/2019 Active capsuleIndications: mouth daily. Orbital cellulitis, right Insulin Glargine (LANTUS inject 27 Units 15 mL 3 9 Active SOLOSTAR U-100 INSULIN) under the skin 100 unit/mL (3 mL) daily. 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 spray diclofenac 50 mg EC Take 50 [...] mg Place 1 tablet 1 Bottle 3 05/28/202010/2019 Active sublingual under the tongue tabletIndications: every 5 (five) Unstable angina minutes as needed for Chest pain for up to 30 days. documented as of this encounter (statuses as of 05/31/2020) Active Problems Problem Noted Date Unstable angina 05/24/2020 Type 2 diabetes mellitus without complication, without long-term current 05/24/2020 use of insulin Family history of early CAD 05/24/2020 Essential hypertension 05/24/2020 Coronary artery calcification 05/24/2020 Chest pain 05/23/2020 Orbital cellulitis, right 05/10/2019 Overview: S/P Orbitotomy with Mass Excision OD Obesity (BMI 30-39.9) 05/10/2019 documented as of this encounter (statuses as of 05/31/2020) Immunizations Name Administration Dates Next Due Influenza [...] Signs Not on filedocumented in this encounter Miscellaneous Notes Telephone Encounter - Corie Banerjee - 05/31/2020 12:55 PM CDT TRANSITIONAL CARE MANAGEMENT ASSESSMENT 05/31/2020 Brett Kramer [id number] Brett Kramer is a 39 year old /White male was admitted on 05/23/[address] He was discharged on 05/28/20 with discharge disposition of HR- Routine Discharge. Admitting Physician: Logan Seth Discharge Diagnosis: CAD (s/p PCI to mRCA and pLAD Pt. Verbalized understanding discharge instructions. Linked Episodes Type: Episode: Status: Noted: Resolved: Last update: Updated by: TRANSITION OF CARE tcm Active 05/30/2020 05/31/2020 12:54 PM Corie Banerjee Comments:05/30/2020 TCM Wbl-yyfi-pw-face outreach documentation: Discharge Assessment Chart Assessed: 05/31/20 TCM Outreach Completed: 05/31/20 Discharge Instructions Do you understand your at-home instructions?: Yes Medications Have you filled your prescriptions and do you have them in your home? : Yes Do you know how to take your medications?: Yes Can you provide me with the names or descriptions of any [id number] or supplements you are currently taking?: Yes Supplies Did you receive applicable home medical supplies/equipment?: N/A Follow Up Appointment Has a follow up appointment been scheduled?: Yes Do you have any questions about your follow up appointments?: No Are you able to get to your appointment? Who will be taking you?: Yes(self) Home Health Assistance Has the home health nurse contacted you since you've been home?: N/A Survey - Recognition Is there anything you would like to share about your recent hospitalization, or anyone you would like to recognize?: No Do you have any suggestions for improvement?: No Do you have any other questions or concerns at this time?: No Future Appointments: Future Appointments Provider Department Dept Phone 06/27/2020 1:00 PM Julius Leslie MD [facility] [place] [phone] elephone Encounter - Corie Banerjee - 05/30/2020 11:04 AM CDT TRANSITIONAL CARE MANAGEMENT ASSESSMENT 05/30/2020 Brett Kramer [id number] Brett Kramer is a 39 year old /White male was admitted on 05/23/[address] He was discharged on 05/28/20 with discharge disposition of HR- Routine Discharge. Admitting Physician: Logan Seth Discharge Diagnosis: CAD (s/p PCI to mRCA, dRCA, and pLAD) NOt available. No linked episodes TCM Urn-mvvv-zw-face outreach documentation: Future Appointments: documented in this encounter Plan of Treatment Date Type Specialty Care Team Description 06/27/2020 Office Visit Cardiology Julius Leslie M D [address] [place] [address] [phone] Health Maintenance Due Date Last Done Comments URINE MICROALBUMIN 1989 Depression Screening 1991 FOOT EXAM 1997 DTaP,Tdap,and Td Vaccines 1998 06/12/2018 (1 - Tdap) EYE EXAM 05/18/2020 05/18/2019 HgA1C 11/20/2020 05/23/2020, 05/09/2019 LDL-C 05/23/2021 05/23/2020, 05/09/2019 CREATININE (SERUM) 05/28/2021 05/28/2020, 05/27/2020, 05/27/2020, Additional history exists INFLUENZA VACCINE Completed 05/28/2020 PNEUMOCOCCAL 0-64 YEARS Aged Out 05/28/2020 No longe r eligible COMBINED SERIES based on patient 's age to complete this topic documented as of this encounter Results Not on filedocumented in this encounter Insurance Payer Benefit Plan / Group Subscriber ID Effective Dates Phone Address Type [facility] GENERIC [facility] GENERIC [id number] 2018-Present [facility] documented as of this encounter
--- OUTSIDE RECORDS SUMMARY | 2020-07-15 08:54 | XMS REPORT | Summary of Care ---
:1980 Author Organization [facility] Address [address] [place] [id number] Care Team Providers Name Role Phone Omari Thao Primary Care Provider Reason for Visit Reason Comments Notification Encounter Details Date Type Department Care Team Description 06/22/2020 Telephone [facility] Cardiology- Tessa Leslie MD Notification [address] [facility], [address] [place] [address] [place] [address] [phone] Allergies No Known Allergiesdocumented as of this encounter (statuses as of 06/27/2020) Medications Medication Sig Dispensed Refills Start Date [...] 3 INSULIN) 100 unit/mL (3 (three) times daily mL) before meals. injectionIndications: Type 2 diabetes mellitus without complication, without long-term current use of insulin fluticasone propionate Use 1 [place] in each 0 Active (FLONASE ALLERGY RELIEF) nostril daily. 50 mcg/actuation nasal spray diclofenac 50 mg EC Take 50 mg by mouth 0 Active tablet daily. atorvastatin 80 mg Take 1 tablet [...] to 30 days. ranolazine 500 mg 12 hr Take 1 tablet by 60 tablet 0 0 07/03/2020 Active tabletIndications: Chest mouth every 12 pain, unspecified type (twelve) hours for 30 days. metoprolol succinate XL Take 1 tablet by 60 tablet 0 0 07/03/2020 Active 100 mg 24 hr mouth 2 (two) times tabletIndications: Chest daily for 30 days. pain, unspecified type glipiZIDE 5 mg Take 1 tablet by 60 tablet 0 06/03/2020 020 Active tabletIndications: Type mouth 2 (two) times 2 diabetes mellitus daily before without complication, breakfast and without long-term dinner for 30 days. current use of insulin documented as of this encounter (statuses as of 06/27/2020) Active Problems Problem Noted Date Stable angina 06/02/2020 Coronary artery disease involving [place] coronary ema ry of [place] heart 06/02/2020 with angina pectoris Unstable angina 05/24/2020 Type 2 diabetes mellitus without complication, without long-term current 05/24/2020 use of insulin Family history of early CAD 05/24/2020 Essential hypertension 05/24/2020 Coronary artery calcification 05/24/2020 Atypical chest pain 05/23/2020 Orbital cellulitis, right 05/10/2019 Overview: S/P Orbitotomy with Mass Excision OD Obesity (BMI 30-39.9) 05/10/2019 documented as of this encounter (statuses as of 06/27/2020) Immunizations Name Administration Dates Next Due Influenza [...] of school you have High school [employer] 05/23/2020 completed or the highest degree you [...] been in contact with No / Unsure 06/27/2020 1:04 PM PHYSICIAN PRACTICE ADMINISTRATOR someone who was confirmed or suspected to have Coronavirus / COVID-19? documented as of this encounter Last Filed Vital Signs Not on filedocumented in this encounter Miscellaneous Notes Telephone Encounter - Inocencia Frias - 06/27/2020 1:15 PM CSTThe patient was seen prior to this message being taken care of. The patient is a hospital follow up and will be billed. elephone Encounter - Rosanna Hale RN - 06/23/2020 12:35 PM CDTRouting to pss to discuss copayment. elephone Encounter - Surya Nunez - 06/22/2020 11:32 AM CDT Patient is calling needing to discuss the pricing for his appointment on 06/27 please contact [phone] (home) documented in this encounter Plan of Treatment [...] 05/28/2020 SERIES documented as of this encounter Results Not on filedocumented in this encounter
--- OUTSIDE RECORDS SUMMARY | 2020-07-15 08:54 | XMS REPORT | Summary of Care ---
:1980 Author Organization [facility] Address [address] [place] [address] Care Team Providers Name Role Phone Omari Thao Primary Care Provider Reason for Visit Reason Comments Follow-up [facility] Foll ow up (Routine) Status Reason Specialty Diagnoses / Referred By Referred To Procedures Contact Contact New Request IM-INTERVENTIONAL Diagnoses Unstable angina Ray Cyr, CARDIOLOGY / Procedures Discharge Follow-Up: Specialty Service IM-INTERVENTIONAL CARDIOLOGY; 4-6 Weeks Internal Medicine [address] [place] [address] Encounter Details Date Type Department Care Team Description 06/27/2020 Office Visit [facility] Julius Leslie M D Coronary artery disease involving algaaciq coronary artery of algaaciq heart without angina pectoris (Primary Dx); Cardiology- [address] Essential hypertension; [address] [place] [address] Type 2 diabetes mellitus without complic ation, without long-term current use of insulin; [facility], [address] Obesity (BMI 30-39.9) [place], [place] [phone] Allergies No Known Allergiesdocumented as of this [...] use of insulin fluticasone propionate Use 1 [place] in each 0 Active (FLONASE ALLERGY RELIEF) [...] Stable angina 06/02/2020 Coronary artery disease involving algaaciq coronary ema ry of algaaciq heart 06/02/2020 with angina pectoris Unstable angina [...] with No / Unsure 06/27/2020 1:04 PM ETIQUETTE COACH someone who was confirmed or suspected to have Coronavirus / COVID-19? documented as of this encounter Last Filed Vital Signs Vital Sign Reading Time Taken Comments Blood Pressure 140/89 06/27/2020 1:18 PM ETIQUETTE COACH Pulse 89 06/27/2020 1:15 PM ETIQUETTE COACH Temperature - - Respiratory Rate 19 06/27/2020 1:15 PM ETIQUETTE COACH Oxygen Saturation 92% 06/27/2020 1:15 PM ETIQUETTE COACH Inhaled Oxygen Concentration - - Weight 113.3 kg (249 lb 12.8 oz) 06/27/2020 1:15 PM ETIQUETTE COACH Height 175.3 cm (5' 9") 06/27/2020 1:15 PM ETIQUETTE COACH Body Mass Index 36.89 06/27/2020 1:15 PM ETIQUETTE COACH documented in this encounter Progress Notes Julius Leslie MD - 06/27/2020 1:00 PM CST CARDIOLOGY CLINIC NOTE 06/27/2020 Reason for Referral/Presenting Complaint: CAD PCP: Omari Thao History of Present Illness: Brett Kramer is a 39 years old male with PMH DM, HTN, obesity, PE and family h/o premature CAD. He was admitted for chest pain in 04/2020 to [facility]. "For the past few days he has had central and left sided chest heaviness, more so with exertion, associated with SOB, nausea and sweating, lasting hours, rated 9/10, without radiation. Came to [facility]. CT showed no PE but it showed significant coronary arterycalcification. Strong family h/o CAD [place]." He underwent LHC in [facility] showing LAD and RCA disease. He eventually underwent PCI to LAD and RCA with YUE. Then he was admitted to [facility] for chest pain. Ranexa was added. Now he is feeling better. No significant exertional chest pain. No bleeding. Cardiovascular testing: EKG: Normal sinus rhythm Nonspecific ST and T wave abnormality Echocardiogram: Ejection Fraction = 60-65%. The left ventricular wall motion is normal. Diastolic dysfunction. The left atrium is mildly dilated. Estimated RA pressure is 5-10 mmHg. Insufficient Tricuspid regurgitation jet to estimate RVSP. Cardiac Cath: Findings: Coronary dominance: right Left main: Large, patent LAD: Large proximal mild disease then 70% (IVUS indicative of fibrocalcific plaque; 3.5 [place] Cut[place] Balloon; 3.0 x 32 mm Synergy [...] 70% (IVUS indicative of fibrous plaque; 3.5 [place] Balloon; 4.0 x 16 mm Synergy Rx YUE; 4.5 NC; 0% residual stenosis), mid to distal focal 70% (IVUS indicative of fibrous plaque; 3.5 [place] Balloon; 4.0 x 16 mm Synergy [...] 6. Findings and plan discussed with patient Review of Systems: General: (-) fever, (-) chills, (-) weight change, (-) dizziness, (-) fatigue Skin: (-) rash HEENT: (-) headache, (-) change in vision Neck: (-) difficulty swallowing Heme: negative Resp: (-) cough, (-) dyspnea on exertion Cardio: (+) chest pain, (-) palpitations, (-) syncope GI: (-) vomiting, (-) diarrhea : negative Endo: (+) diabetes, (-) thyroid disease Neuro: (-) numbness, (-) tingling, (-) weakness Back: (-) pain ROSALINDA: (-) muscle pain, (-) claudication Psych: (-) anxiety, (-) depression Past Medical History: Past Medical History: Diagnosis Date Complex regional pain syndrome type II of right lower limb DM (diabetes mellitus) History of pulmonary embolus (PE) 2013 HTN (hypertension) Current Medications: Current Outpatient Medications Medication Sig Dispense Refill glipiZIDE 5 mg tablet Take 1 tablet by mouth 2 (two) times daily before breakfast and dinner for30 days. 60 tablet 0 metoprolol succinate XL 100 mg 24 hr tablet Take 1 tablet by mouth 2 (two) times daily for 30 days. 60 tablet 0 ranolazine 500 mg 12 hr tablet Take 1 tablet by mouth every 12 (twelve) hours for 30 days. 60 tablet 0 aspirin 81 mg chewable tablet Take 1 tablet by mouth daily. 30 tablet 11 atorvastatin 80 mg tablet Take 1 tablet by mouth daily. 90 tablet 3 clopidogreL 75 mg tablet Take 1 tablet by mouth daily. 30 tablet 11 fenofibrate micronized 67 mg capsule Take 1 capsule by mouth daily. 90 capsule 3 isosorbide mononitrate 120 mg 24 hr tablet Take 1 tablet by mouth daily. 30 tablet 11 lisinopriL 2.5 mg tablet Take 1 tablet by mouth daily. 90 tablet 3 diclofenac 50 mg EC tablet Take 50 mg by mouth daily. fluticasone propionate (FLONASE ALLERGY RELIEF) 50 mcg/actuation nasal spray Use 1 [place] in eachnostril daily. metFORMIN 1,000 mg tablet Take 1,000 mg by mouth 2 (two) times daily with meals. methocarbamol (ROBAXIN) 500 mg tablet Take 500 mg by mouth 2 (two) times daily. gabapentin 300 mg capsule Take 1 capsule by mouth 2 (two) times daily. (Patient taking differently: Take 600 mg by mouth 3 (three) times daily.) 30 capsule 1 nitroglycerin 0.[address] 1 tablet under the tongue every 5 (five) minutes as needed for Chest pain for up to 30 days. 1 Bottle 3 insulin aspart U-100 (NOVOLOG FLEXPEN U-100 INSULIN) 100 unit/mL (3 mL) injection inject 10 Units under the skin 3 (three) times daily before meals. 3 mL 5 ibuprofen 600 mg tablet Take 1 tablet by mouth every 8 (eight) hours as needed for Pain (scale 4-6). 30 tablet 1 HYDROcodone-acetaminophen (NORCO) 10-325 mg tablet Take 1 tablet by mouth every 6 (six) hours asneeded for Pain (scale 4-6) or Pain (scale 7-10). 90 tablet 0 No current facility-administered medications for this visit. Social History: Social History Socioeconomic History Marital status: Single [...] file Gets together: Not on file Attends temple service: Not on file Active member of [...] file Social History Narrative Not on file Family History Family History Problem Relation Age of Onset Stroke Mother 67 Diabetes Mother Hypertension Mother Diabetes Father Coronary Heart Disease Father before the age of 50 Diabetes Brother Physical Examination: BP (!) 140/89 | Pulse 89 | Resp 19 | Ht 5' 9" (1.753 m) | Wt 249 lb 12.8 oz (113.3 kg) | SpO2 92% | BMI 36.89 kg/m Constitutional: alert and oriented x 3 (person, place and date/time); no apparent distress, obese ENT: normocephalic atraumatic, supple, no lymphadenopathy, no bruits, no JVD Lungs: clear to auscultation bilaterally Cardiovascular: S1, S2 normal, regular; no murmurs, rubs or gallops GI: soft; non-tender; non-distended; normoactive bowel sounds : not examined Musculoskeletal: Extremities: no clubbing, cyanosis, or edema Skin: no rashes Neuro: no focal deficits Assessment/Plan: ICD-10-CM ICD-9-CM 1. Coronary artery disease involving algaaciq coronary artery of algaaciq heart without angina [id number] 414.01 2. Essential hypertension I10 401.9 3. Type 2 diabetes mellitus without complication, without long-term current use of insulin E11.9 250.00 4. Obesity (BMI 30-39.9) E66.9 278.00 CAD--s/p LAD and RCA PCI YUE. Continue ASA/plavix/metoprolol/lipitor. Chest pain is well controlled with Imdur and Ranexa. Cannot afford cardiac rehab. HTN--The control is acceptable. On lisinopril/metoprolol. Patient was counseled for lifestyle modifications including: diet, exercise and weight loss. RTC 6 months Julius Leslie MD, FAC, NISH Probate Judge, Division of Cardiology [facility] documented in this encounter Plan of Treatment Date Type Specialty Care Team Description 12/25/2020 Office Visit Cardiology Julius Leslie M D [address] [place] [address] [phone] Health Maintenance Due Date Last Done Comments URINE MICROALBUMIN 1989 FOOT EXAM 1997 DTaP,Tdap,and Td Vaccines (1 - 1998 06/12/2018 Tdap) EYE EXAM 05/18/2020 05/18/2019 HgA1C 11/20/2020 05/23/2020, 05/09/2019 LDL-C 06/02/2021 06/02/2020, 05/23/2020, 05/09/2019 CREATININE (SERUM) 06/03/2021 06/03/2020, 06/02/2020, 05/28/2020, Additional history exists Depression Screening 06/27/2021 06/27/2020 INFLUENZA VACCINE Completed 05/28/2020 PNEUMOCOCCAL 0-64 YEARS COMBINED Completed 05/28/2020 SERIES documented as of this encounter Results Not on filedocumented in this encounter Visit Diagnoses Diagnosis Coronary artery disease involving algaaciq coronary artery of algaaciq heart without angina pectoris - Primary Essential hypertension Unspecified essential hypertension Type 2 diabetes mellitus without complic ation, without long-term current use of insulin Obesity (BMI 30-39.9) Obesity, unspecified documented in this encounter
--- OUTSIDE RECORDS SUMMARY | 2020-07-15 08:55 | XMS REPORT | Summary of Care ---
:1980 Author Organization [facility] Address [address] [place] [id number] Care Team Providers Name Role Phone Omari Thao Primary Care Provider Reason for Visit Reason Comments Follow-up [facility] Foll ow up (Routine) Status Reason Specialty Diagnoses / Referred By Referred To Procedures Contact Contact Closed IM-INTERVENTIONAL Diagnoses Unstable angina Ray Cyr MD CARDIOLOGY / Procedures Discharge Follow-Up: Specialty Service IM-INTERVENTIONAL CARDIOLOGY; 4-6 Weeks [address] [facility] [place] [address] Encounter Details Date Type Department Care Team Description 06/27/2020 Office Visit [facility] Julius Leslie M D 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 RELIEF) 50 mcg/actuation nasal spray diclofenac 50 mg [...] Place 1 tablet 1 Bottle 3 05/28/202010/2019 sublingual under the tongue tabletIndications: every 5 (five) Unstable angina minutes as needed for Chest pain for up to 30 days. ranolazine 500 mg 12 hr Take 1 tablet by 60 tablet 0 0 07/03/2020 tabletIndications: mouth every 12 Chest pain, unspecified (twelve) hours for type 30 days. metoprolol succinate XL Take 1 tablet by 60 tablet 0 0 07/03/2020 100 mg 24 hr mouth 2 (two) times tabletIndications: daily for 30 days. Chest pain, unspecified type glipiZIDE 5 mg Take 1 tablet by 60 tablet 0 06/03/2020 020 tabletIndications: Type mouth 2 (two) times 2 diabetes mellitus daily before without complication, breakfast and without long-term dinner for 30 days. current use of insulin documented as of this encounter (statuses as of 07/07/2020) Active Problems Problem Noted Date Stable angina 06/02/2020 Coronary artery disease involving wichita coronary ema ry of wichita heart 06/02/2020 with angina pectoris Unstable angina 05/24/2020 Type 2 diabetes mellitus without complication, without long-term current 05/24/2020 use of insulin Family history of early CAD 05/24/2020 Essential hypertension 05/24/2020 Coronary artery calcification 05/24/2020 Atypical chest pain 05/23/2020 Orbital cellulitis, right 05/10/2019 Overview: S/P Orbitotomy with Mass Excision OD Obesity (BMI 30-39.9) 05/10/2019 documented as of this encounter (statuses as of 07/07/2020) Immunizations Name Administration Dates Next Due Influenza [...] with No / Unsure 06/27/2020 1:04 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 He was admitted for chest pain in 04/2020 to [facility]. "For the past few days he has had central and left sided chest heaviness, more so with exertion, associated with SOB, nausea and sweating, lasting hours, rated 9/10, without radiation. Came to [facility]. CT showed no PE but it showed significant coronary arterycalcification. Strong family h/o CAD [place]." He underwent LHC in [facility] showing LAD and RCA disease. He eventually underwent PCI to LAD and RCA with YUE. Then he was admitted to [facility] for chest pain. Ranexa was added. [...] 70% (IVUS indicative of fibrocalcific plaque; 3.5 [place] Cutting Balloon; 3.0 x 32 mm Synergy [...] 70% (IVUS indicative of fibrous plaque; 3.5 [place] Cutting Balloon; 4.0 x 16 mm Synergy Rx YUE; 4.5 NC; 0% residual stenosis), mid to distal focal 70% (IVUS indicative of fibrous plaque; 3.5 [place] Cut[place] Balloon; 4.0 x 16 mm Synergy [...] RELIEF) 50 mcg/actuation nasal spray Use 1 [place] in eachnostril daily. metFORMIN 1,000 mg tablet [...] file Gets together: Not on file Attends yazdanism service: Not on file Active member of [...] ICD-10-CM ICD-9-CM 1. Coronary artery disease involving wichita coronary artery of wichita heart without angina [id number] 414.01 2. Essential hypertension I10 401.9 3. [...] loss. 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
--- OUTSIDE RECORDS SUMMARY | 2020-07-15 08:55 | XMS REPORT | Summary of Care ---
:1980 Author Organization [facility] Address [address] [place] [id number] Care Team Providers Name Role Phone Omari Thao Primary Care Provider Reason for Visit Reason Comments Follow-up [facility] Foll ow up (Routine) Status Reason Specialty Diagnoses / Referred By Referred To Procedures Contact Contact New Request IM-INTERVENTIONAL Diagnoses Unstable angina Ray Cyr, CARDIOLOGY / Procedures Discharge Follow-Up: Specialty Service IM-INTERVENTIONAL CARDIOLOGY; 4-6 Weeks Internal Medicine [address] [place] [address] Encounter Details Date Type Department Care Team Description 06/27/2020 Office Visit [facility] Julius Leslie M D Coronary artery disease involving samish coronary artery of samish heart without angina pectoris (Primary Dx); Cardiology- [address] Essential hypertension; [address] [place] [address] Type 2 diabetes mellitus without complic ation, without long-term current use of insulin; [facility], [address] Obesity (BMI 30-39.9) [place], [place] [id number] Allergies No Known [...] use of insulin fluticasone propionate Use 1 [place] in each 0 Active (FLONASE ALLERGY RELIEF) [...] Stable angina 06/02/2020 Coronary artery disease involving samish coronary ema ry of samish heart 06/02/2020 with angina pectoris Unstable angina [...] with No / Unsure 06/27/2020 1:04 PM BRACER someone who was confirmed or suspected to have Coronavirus / COVID-19? documented as of this encounter Last Filed Vital Signs Vital Sign Reading Time Taken Comments Blood Pressure 140/89 06/27/2020 1:18 PM BRACER Pulse 89 06/27/2020 1:15 PM BRACER Temperature - - Respiratory Rate 19 06/27/2020 1:15 PM BRACER Oxygen Saturation 92% 06/27/2020 1:15 PM BRACER Inhaled Oxygen Concentration - - Weight 113.3 kg (249 lb 12.8 oz) 06/27/2020 1:15 PM BRACER Height 175.3 cm (5' 9") 06/27/2020 1:15 PM BRACER Body Mass Index 36.89 06/27/2020 1:15 PM BRACER documented in this encounter Progress Notes Julius Leslie MD - 06/27/2020 1:00 PM CST CARDIOLOGY CLINIC NOTE 06/27/2020 Reason for Referral/Presenting Complaint: CAD PCP: Omari Thao History of Present Illness: Brett Kramer is a 39 years old male with PMH DM, HTN, obesity, PE and family h/o premature CAD. He was admitted for chest pain in 04/2020 to [facility]. "For the past few days he has had central and left sided chest heaviness, more so with exertion, associated with SOB, nausea and sweating, lasting hours, rated 9/10, without radiation. Came to [facility]. CT showed no PE but it showed significant coronary arterycalcification. Strong family h/o CAD [place]." He underwent LHC in [facility] showing LAD and RCA disease. He eventually underwent PCI to LAD and RCA with YUE. Then he was admitted to [facility] for chest pain. Ranexa was added. [...] 70% (IVUS indicative of fibrocalcific plaque; 3.5 [place] Cutting Balloon; 3.0 x 32 mm Synergy [...] 70% (IVUS indicative of fibrous plaque; 3.5 [place] Cut[place] Balloon; 4.0 x 16 mm Synergy Rx YUE; 4.5 NC; 0% residual stenosis), mid to distal focal 70% (IVUS indicative of fibrous plaque; 3.5 [place] Cutting Balloon; 4.0 x 16 mm Synergy Rx YUE; 4.5 NC; 0% residual stenosis) , distal 50% PDA: Large, mild disease PLB: Medium size, mild LI Impression: 1. Severe m and d RCA disease. Successful PCI with 4.0 x 16 mm Synergy Rx YEU x 2 2. Severe pLAD disease. Successful [...] RELIEF) 50 mcg/actuation nasal spray Use 1 [place] in eachnostril daily. metFORMIN 1,000 mg tablet [...] file Gets together: Not on file Attends synagogue service: Not on file Active member of [...] ICD-10-CM ICD-9-CM 1. Coronary artery disease involving samish coronary artery of samish heart without angina [id number] 414.01 2. Essential hypertension I10 401.9 3. [...] 6 months Julius Leslie MD, FAC, NISH Meal Packer, Division of Cardiology [facility] documented in this encounter Plan of Treatment Date Type Specialty Care Team Description 12/25/2020 Office Visit Cardiology Julius Leslie M D [address] [place] [address] [phone] Health Maintenance Due Date Last Done Comments [...] Visit Diagnoses Diagnosis Coronary artery disease involving samish coronary artery of samish heart without angina pectoris - Primary Essential hypertension Unspecified essential hypertension Type 2 diabetes mellitus without complic ation, without long-term current use of insulin Obesity (BMI 30-39.9) Obesity, unspecified documented in this encounter
[2020-07-15 09:33] LABS: Absolute Lymphocytes (CBC) 1.7 K/uL (0.7-4.9); Basophils % 0.9 % (0-1.3); Hematocrit 44.4 % (39.6-49.0); Lymphocytes % 24.2 % (15.3-44.8); MPV 8.2 fL (7.6-11.3); RBC Red Blood Cell Count 4.85 M/uL (4.33-5.43)
[2020-07-15 09:38] LABS: Protime INR 0.92
[2020-07-15] MEDS ORDERED: ONDANSETRON 4 MG/2 ML VIAL ONE (09:40)
--- NOTE | 2020-07-15 09:51 | RAD REPORT ---
EXAM DESCRIPTION: Bettie Single View07/15/2020 9:32 am CLINICAL HISTORY: Chest pain COMPARISON: February 2020 FINDINGS: The lungs appear clear of acute infiltrate. The heart is normal size IMPRESSION: No acute abnormalities displayed
[2020-07-15 09:53] LABS: ALT/SGPT 32 U/L (12-78); AST/SGOT 18 U/L (15-37); Albumin 3.8 g/dL (3.4-5.0); Alkaline Phosphatase 67 U/L (45-117); BUN Blood Urea Nitrogen 17 mg/dL (7-18); Bicarbonate 25 mmol/L (21-32); Bilirubin Direct 0.2 mg/dL (0-0.2); Bilirubin Total 0.7 mg/dL (0.2-1.0); Glucose Level 232 mg/dL (74-106); Magnesium 1.6 mg/dL (1.8-2.4); NT PRO-BNP 286 pg/mL (<125); Potassium 4.1 mmol/L (3.5-5.1); Protein, Total 7.5 g/dL (6.4-8.2); Sodium Level 135 mmol/L (136-145); Troponin (Emerg Dept Use Only) < 0.02 ng/mL (0.0-0.045)
[2020-07-15] MEDS ORDERED: NITROGLYCERIN 1 GM PKT TD ONE (09:58)
[2020-07-15] MEDS ORDERED: MORPHINE 4 MG/ML SYR ONE ×2 (09:58→14:33)
[2020-07-15] MEDS ORDERED: NA CHLORIDE 0.9% 0 ML ONE (09:58)
[2020-07-15] MEDS ORDERED: NA CHLORIDE 0.9% 250 ML ONE (10:04)
[2020-07-15] MEDS ORDERED: KETOROLAC 30 MG/ML INJ ONE (11:24)
[2020-07-15 11:49] LABS: Urine Blood NEGATIVE (NEG); Urine Glucose 2+ (NEG); Urine Protein NEGATIVE (NEG)
[2020-07-15] MEDS ORDERED: LORazepam 2 MG/ML VIAL ONE (11:51)
--- NOTE | 2020-07-15 12:59 | RAD REPORT ---
EXAM DESCRIPTION: CT - Chest Angio - 07/15/2020 12:44 pm CLINICAL HISTORY: Chest pain COMPARISON: 2018 TECHNIQUE: Dynamically enhanced axial 3 mm thick images of the chest were obtained during administra tion of <100> mL Isovue 370 IV contrast. Coronal and oblique reconstruction images were generated and reviewed. Exam utilizes a protocol for optimal evaluation of pulmonary arterial tree. Maximum intensity projections 3D imaging was utilized All CT scans are performed using dose optimization technique as appropriate and may include automated exposure control or mA/KV adjustment according to patient size. FINDINGS: A pulmonary embolus is not seen. A thoracic aortic aneurysm is not noted. A pleural effusion is not seen. A pericardial effusion is not seen. A lung consolidation is not present. IMPRESSION: Negative for a pulmonary embolism.
--- NOTE | 2020-07-15 14:09 | EDPHYS ---
Physician Documentation [facility] Name: Brett Kramer Age: 39 yrs Sex: Male : 1980 Arrival Date: 07/15/2020 Time: 08:50 Bed 6 Private MD: ED Physician Albert Medina HPI: 07/15 09:40 This 39 yrs old Male presents to ER via Ambulatory with complaints of Chest kdr Pain. 09:40 The patient or guardian reports chest pain that is located primarily in the substernal kdr area, anterior chest wall, left. Onset: This is an ongoing pain that has been present for days. At worst, it is 9/10 at best, it is 2-4/10. He had the pain yesterday and took three NTG ro go from 9 - 4. Today, pain was back up to a 9, took two NTG and pain not improving and he became nauseated with slight SOB. The pain does not radiate. Associated signs and symptoms: Pertinent positives: nausea, shortness of breath, Pertinent negatives: diaphoresis. The chest pain is described as aching, burning. Duration: The patient or guardian reports multiple episodes, that are intermittent, that wax and wane, with no pattern. Severity of pain: At its worst the pain was a 9 / 10 in the emergency department the pain has improved mildly. The patient has not experienced similar symptoms in the past. Historical: - Allergies: 09:11 No Known Drug Allergies; zb - Home Meds: 09:11 atorvastatin 80 mg oral tab 1 tab once daily [Active]; clopidogrel 75 mg oral tab 1 tab zb once daily [Active]; fenofibrate oral 67mg oral [Active]; isosorbide mononitrate 120 mg Oral Tb24 1 tab [Active]; aspirin 81 mg Oral chew 1 tab once daily [Active]; metformin 1,000 mg Oral TG24 2 times per day [Active]; - PMHx: 09:11 Diabetes - NIDDM; Hypertension; PE; zb - PSHx: 09:11 Heart stents; zb - Immunization history:: Adult Immunizations up to date. - Social history:: Smoking status: Patient denies any tobacco usage or history of. ROS: 09:40 Constitutional: Negative for fever, chills, and weight loss, Eyes: Negative for injury, kdr pain, redness, and discharge, ENT: Negative for injury, pain, and discharge, Neck: Negative for injury, pain, and swelling, Abdomen/GI: Negative for abdominal pain, nausea, vomiting, diarrhea, and constipation, Back: Negative for injury and pain, : Negative for injury, bleeding, discharge, and swelling, MS/Extremity: Negative for injury and deformity, Skin: Negative for injury, rash, and discoloration, Neuro: Negative for headache, weakness, numbness, tingling, and seizure activity. Psych: Negative for depression, anxiety, suicide ideation, homicidal ideation, and hallucinations, Allergy/Immunology: Negative for hives, rash, and allergies, Endocrine: Negative for neck swelling, polydipsia, polyuria, polyphagia, and marked weight changes, Hematologic/Lymphatic: Negative for swollen nodes, abnormal bleeding, and unusual bruising. 09:40 Cardiovascular: Positive for chest pain, Negative for edema, orthopnea, palpitations. 09:40 Respiratory: Positive for shortness of breath, Negative for orthopnea, sputum production, wheezing. Exam: 09:40 Constitutional: This is a well developed, well nourished patient who is awake, alert, kdr and in no acute distress. Head/Face: Normocephalic, atraumatic. Eyes: Pupils equal round and reactive to light, extra-ocular motions intact. Lids and lashes normal. Conjunctiva and sclera are non-icteric and not injected. Cornea within normal limits. Periorbital areas with no swelling, redness, or edema. Neck: Trachea midline, no thyromegaly or masses palpated, and no cervical lymphadenopathy. Supple, full range of motion without nuchal rigidity, or vertebral point tenderness. No Meningismus. Chest/axilla: Normal chest wall appearance and motion. Nontender with no deformity. No lesions are appreciated. Cardiovascular: Regular rate and rhythm with a normal S1 and S2. No gallops, murmurs, or rubs. Normal PMI, no JVD. No pulse deficits. Respiratory: Lungs have equal breath sounds bilaterally, clear to auscultation and percussion. No rales, rhonchi or wheezes noted. No increased work of breathing, no retractions or nasal flaring. Abdomen/GI: Soft, non-tender, with normal bowel sounds. No distension or tympany. No guarding or rebound. No evidence of tenderness throughout. Back: No spinal tenderness. No costovertebral tenderness. Full range of motion. Skin: Warm, dry with normal turgor. Normal color with no rashes, no lesions, and no evidence of cellulitis. MS/ Extremity: Pulses equal, no cyanosis. Neurovascular intact. Full, normal range of motion. Neuro: Awake and alert, GCS 15, oriented to person, place, time, and situation. Cranial nerves II-XII grossly intact. Motor strength 5/5 in all extremities. Sensory grossly intact. Cerebellar exam normal. Normal gait. Psych: Awake, alert, with orientation to person, place and time. Behavior, mood, and affect are within normal limits. 09:51 ECG was reviewed by the Attending Physician. kdr Vital Signs: 09:04 BP 160 / 99; Pulse 97; Resp 15; Temp 98.3; Pulse Ox 95% on R/A; Weight 113.4 kg; Height zb 5 ft. 8 in. (172.72 cm); 10:00 BP 154 / 86; Pulse 93; Resp 15; Pulse Ox 96% on R/A; zb 11:00 BP 139 / 85; Pulse 83; Resp 15; Pulse Ox 100% on R/A; zb 11:58 BP 131 / 87; Pulse 77; Resp 16; Pulse Ox 99% on R/A; zb 13:00 BP 130 / 79; Pulse 80; Resp 16; Pulse Ox 96% on R/A; zb 14:00 BP 140 / 86; Pulse 80; Resp 16; Pulse Ox 100% on R/A; zb 15:00 BP 134 / 82; Pulse 82; Resp 16; Pulse Ox 97% on R/A; zb 16:00 BP 142 / 92; Pulse 86; Resp 16; Pulse Ox 98% on R/A; zb 09:04 Body Mass Index 38.01 (113.40 kg, 172.72 cm) zb MDM: 09:40 Data reviewed: vital signs, nurses notes, lab test result(s), EKG, radiologic studies. kdr Counseling: I had a detailed discussion with the patient and/or guardian regarding: the historical points, exam findings, and any diagnostic results supporting the discharge/admit diagnosis, lab results, radiology results. 14:09 Patient medically screened. kdr 07/15 08:58 Order name: Basic Metabolic Panel; Complete Time: 10:28 kdr 07/15 08:58 Order name: CBC with Diff; Complete Time: 09:40 kdr 07/15 08:58 Order name: LFT's; Complete Time: 10: kdr 07/15 08:58 Order name: Magnesium; Complete Time: 10:28 kdr 07/15 08:58 Order name: NT PRO-BNP; Complete Time: 10: kdr 07/15 08:58 Order name: PT-INR; Complete Time: 10: kdr 07/15 08:58 Order name: Troponin (emerg Dept Use Only); Complete Time: 10: kdr 07/15 08:58 Order name: XRAY Chest (1 view); Complete Time: 10: kdr 07/15 11:21 Order name: Urine Dipstick--Ancillary (enter results); Complete Time: 12:52 eb 07/15 11:31 Order name: CT Chest Angio; Complete Time: 13:29 kdr 07/15 13:30 Order name: Troponin (emerg Dept Use Only); Complete Time: 16:16 kdr 07/15 08:58 Order name: EKG; Complete Time: 08:59 kdr 07/15 08:58 Order name: Cardiac monitoring; Complete Time: 09:41 kdr 07/15 08:58 Order name: EKG - Nurse/Tech; Complete Time: 09:02 kdr 07/15 08:58 Order name: IV Saline Lock; Complete Time: 09:41 kdr 07/15 08:58 Order name: Labs collected and sent; Complete Time: 09:41 kdr 07/15 08:58 Order name: O2 Per Protocol; Complete Time: 09:41 kdr 07/15 08:58 Order name: O2 Sat Monitoring; Complete Time: 09:41 kdr EC:51 Rate is 93 beats/min. Rhythm is regular, Sinus Rhythm with No ectopy. QRS [place] is kdr Normal. Right axis deviation noted. LA interval is normal. QRS interval is normal. Clinical impression: NSR w/ Non-specific ST/T Changes. Administered Medications: 09:20 Drug: Zofran (Ondansetron) 4 mg Route: IVP; Site: right forearm; zb 10:00 Follow up: Response: No adverse reaction; Nausea is decreased zb 10:02 Drug: NS 0.9% 250 ml Route: IV; Rate: bolus; Site: right forearm; zb 10:03 Drug: morphine 4 mg Route: IVP; Site: right forearm; zb 11:45 Follow up: Response: No adverse reaction; RASS: Restless (+1) zb 10:04 Drug: Nitro-Bid Ointment 2 % 1 inches {Note: lower left area .} Route: Transdermal; zb Site: anterior chest wall; 11:00 Drug: TORadol - Ketorolac 15 mg Route: IVP; Site: right forearm; zb 11:45 Follow up: Response: No adverse reaction zb 11:44 Drug: Ativan 1 mg Route: IVP; Site: right forearm; zb 12:00 Follow up: Response: No adverse reaction zb 14:22 Drug: morphine 4 mg Route: IVP; Site: right forearm; zb 15:00 Follow up: Response: No adverse reaction; Pain is unchanged, physician notified zb 16:36 Drug: [place] (7.5 mg-325 mg) 1 tabs Route: PO; zb 16:40 Follow up: Response: No adverse reaction zb Disposition: 07/15/20 16:27 Discharged to Home. Impression: Other chest pain, Shortness of breath. - Condition is Stable. - Discharge Instructions: Nonspecific Chest Pain, Shortness of Breath, [id number]. - Medication Reconciliation Form, Thank You Letter form. - Follow up: Private Physician; When: 2 - 3 days; Reason: If symptoms return, Further diagnostic work-up, Recheck today's complaints, Continuance of care, Re-evaluation by your physician. - Problem is an acute exacerbation. - Symptoms have improved. 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 Diagnosis is Other chest pain; kdr Shortness of breath. Reason for transfer: Higher level of care. Accepting physician is [place]. Condition is Fair. Problem is an acute exacerbation. Symptoms are unchanged. kdr 16:45 16:27 07/15/2020 16:27 Discharged to Home. Impression: Other chest pain; Shortness of sv breath. Condition is Stable. Forms are Medication Reconciliation Form, Thank You Letter, Antibiotic Education, Prescription Opioid Use. Follow up: Private Physician; When: 2 - 3 days; Reason: If symptoms return, Further diagnostic work-up, Recheck today's complaints, Continuance of care, Re-evaluation by your physician. Problem is an acute exacerbation. Symptoms have improved. kdr
--- NOTE | 2020-07-15 14:09 | ER ---
Nurse's Notes [facility] Name: Brett Kramer Age: 39 yrs Sex: Male : 1980 Arrival Date: 07/15/2020 Time: 08:50 Bed 6 Private MD: Diagnosis: Other chest pain;Shortness of breath Presentation: 07/15 09:04 Chief complaint: Patient states: started having chest pain this morning at 6:30 took 2 zb nitroglycerin. continued to feel bad decided to come in. Coronavirus screen: Client denies travel out of the [place] in the last 14 days. Ebola Screen: No symptoms or risks identified at this time. Initial Sepsis Screen: Does the patient meet any 2 criteria? No. Patient's initial sepsis screen is negative. Does the patient have a suspected source of infection? No. Patient's initial sepsis screen is negative. Risk Assessment: Do you want to hurt yourself or someone else? Patient reports no desire to harm self or others. Onset of symptoms was July 15, 2020 at 06:30. 09:04 Method Of Arrival: Ambulatory zb 09:04 Acuity: CLAIRE 3 zb Triage Assessment: 09:30 General: Appears in no apparent distress. uncomfortable, Behavior is calm, cooperative, zb appropriate for age. Pain: Complains of pain in left clavicle, anterior aspect of left upper chest and mid-sternal area Pain radiates to left hand Pain currently is 8 out of 10 on a pain scale. Quality of pain is described as pressure, Pain began 4 hours ago. Is continuous, Also complains of nausea, shortness of breath. EENT: No signs and/or symptoms were reported regarding the EENT system. Neuro: Level of Consciousness is awake, alert, obeys commands, Oriented to person, place, time, situation. Cardiovascular: Reports chest pain, nausea, shortness of breath, report headache. Respiratory: Reports shortness of breath Airway is patent Trachea midline Respiratory effort is even, unlabored. GI: Reports nausea. : No signs and/or symptoms were reported regarding the genitourinary system. Derm: Skin is intact, Skin is Skin is pink, warm \\T\\ dry. normal. Musculoskeletal: Circulation, motion, and sensation intact. Historical: - Allergies: :11 No Known Drug Allergies; zb - Home Meds: 09:11 atorvastatin 80 mg oral tab 1 tab once daily [Active]; clopidogrel 75 mg oral tab 1 tab zb once daily [Active]; fenofibrate oral 67mg oral [Active]; isosorbide mononitrate 120 mg Oral Tb24 1 tab [Active]; aspirin 81 mg Oral chew 1 tab once daily [Active]; metformin 1,000 mg Oral TG24 2 times per day [Active]; - PMHx: 09:11 Diabetes - NIDDM; Hypertension; PE; zb - PSHx: 09:11 Heart stents; zb - Immunization history:: Adult Immunizations up to date. - Social history:: Smoking status: Patient denies any tobacco usage or history of. Screenin:33 Abuse screen: Denies threats or abuse. Denies injuries from another. Nutritional zb screening: No deficits noted. Tuberculosis screening: No symptoms or risk factors identified. Fall Risk No fall in past 12 months (0 pts). No secondary diagnosis (0 pts). IV access (20 points). Ambulatory Aid- None/Bed Rest/Nurse Assist (0 pts). Gait- Normal/Bed Rest/Wheelchair (0 pts) Mental Status- Oriented to own ability (0 pts). Total Gauthier Fall Scale indicates No Risk (0-24 pts). Assessment: 08:55 Reassessment: Ok by Dr Medina to get an EKG. sv 09:11 General: See triage note. zb 10:00 Reassessment: Patient appears in no apparent distress at this time. Patient and/or zb family updated on plan of care and expected duration. Pain level reassessed. Patient is alert, oriented x 3, equal unlabored respirations, skin warm/dry/pink. pt states he has a headache given pain medication. 11:10 Reassessment: Patient appears in no apparent distress at this time. Patient and/or zb family updated on plan of care and expected duration. Pain level reassessed. Patient is alert, oriented x 3, equal unlabored respirations, skin warm/dry/pink. pt states he still feel chest discomfort, notified ECP- given medications. 12:30 Reassessment: Patient appears in no apparent distress at this time. Patient and/or zb family updated on plan of care and expected duration. Pain level reassessed. Patient is alert, oriented x 3, equal unlabored respirations, skin warm/dry/pink. 13:30 Reassessment: Patient appears in no apparent distress at this time. Patient and/or zb family updated on plan of care and expected duration. Pain level reassessed. Patient is alert, oriented x 3, equal unlabored respirations, skin warm/dry/pink. 14:30 Reassessment: Patient appears in no apparent distress at this time. Patient and/or zb family updated on plan of care and expected duration. Pain level reassessed. Patient is alert, oriented x 3, equal unlabored respirations, skin warm/dry/pink. 15:30 Reassessment: Patient appears in no apparent distress at this time. No changes from b previously documented assessment. 16:30 Reassessment: pt awaiting repeat troponin for discharge, given medication for pain. Vital Signs: 09:04 BP 160 / 99; Pulse 97; Resp 15; Temp 98.3; Pulse Ox 95% on R/A; Weight 113.4 kg; Height zb 5 ft. 8 in. (172.72 cm); 10:00 BP 154 / 86; Pulse 93; Resp 15; Pulse Ox 96% on R/A; zb 11:00 BP 139 / 85; Pulse 83; Resp 15; Pulse Ox 100% on R/A; zb 11:58 BP 131 / 87; Pulse 77; Resp 16; Pulse Ox 99% on R/A; zb 13:00 BP 130 / 79; Pulse 80; Resp 16; Pulse Ox 96% on R/A; zb 14:00 BP 140 / 86; Pulse 80; Resp 16; Pulse Ox 100% on R/A; zb 15:00 BP 134 / 82; Pulse 82; Resp 16; Pulse Ox 97% on R/A; zb 16:00 BP 142 / 92; Pulse 86; Resp 16; Pulse Ox 98% on R/A; zb 09:04 Body Mass Index 38.01 (113.40 kg, 172.72 cm) ED Course: 08:50 Patient arrived in ED. ds1 08:53 Albert Medina MD is Attending Physician. kdr 08:56 EKG done, by ED staff, reviewed by Albert Medina MD. sv 09:01 Nadia Tejada, KRISTINE is Primary Nurse. zb 09:07 Triage completed. zb 09:32 XRAY Chest (1 view) In Process Unspecified. EDMS 09:35 No provider procedures requiring assistance completed. Inserted saline lock: 20 gauge zb in right forearm, using aseptic technique. 09:35 Patient maintains SpO2 saturation greater than 95% on room air. zb 09:35 Arm band placed on right wrist. zb 09:35 Patient has correct armband on for positive identification. Bed in low position. Call zb light in reach. Side rails up X 1. public aid eligibility assistant on. Pulse ox on. NIBP on. Door closed. Noise minimized. Elevated. 12:44 CT Chest Angio In Process Unspecified. EDMS 13:38 initiated a transfer with Reid Llamas from the [facility] Transfer Center. brady 14:48 called the [facility] Transfer Center in attempt to check on status of transfer/ per Reid abreu she is still waiting for insurance verification due to our facility having a shelter supervisor career professional. 16:19 attempted to call the patients shelter supervisor Dr. Julius Leslie at [phone] brady Medina so he could consult with him. His answering service took patient information then connected me to the [facility] Transfer center where i was connected with Reid Llamas/ I explained the situation and was told that in order to speak to any doctor career professional they go through her and that the insurance verification has been complete and patient has been declined in transfer due to " no MD acceptance". Message relayed to Dr. Medina/ still was not connected to patient's shelter supervisor. 16:40 IV discontinued, intact, bleeding controlled, No redness/swelling at site. zb Administered Medications: 09:20 Drug: Zofran (Ondansetron) 4 mg Route: IVP; Site: right forearm; zb 10:00 Follow up: Response: No adverse reaction; Nausea is decreased zb 10:02 Drug: NS 0.9% 250 ml Route: IV; Rate: bolus; Site: right forearm; zb 10:03 Drug: morphine 4 mg Route: IVP; Site: right forearm; zb 11:45 Follow up: Response: No adverse reaction; RASS: Restless (+1) zb 10:04 Drug: Nitro-Bid Ointment 2 % 1 inches {Note: lower left area .} Route: Transdermal; zb Site: anterior chest wall; 11:00 Drug: TORadol - Ketorolac 15 mg Route: IVP; Site: right forearm; zb 11:45 Follow up: Response: No adverse reaction zb 11:44 Drug: Ativan 1 mg Route: IVP; Site: right forearm; zb 12:00 Follow up: Response: No adverse reaction zb 14:22 Drug: morphine 4 mg Route: IVP; Site: right forearm; zb 15:00 Follow up: Response: No adverse reaction; Pain is unchanged, physician notified zb 16:36 Drug: [place] (7.5 mg-325 mg) 1 tabs Route: PO; zb 16:40 Follow up: Response: No adverse reaction zb Outcome: 11:53 Condition: stable zb 14:09 ER care complete, transfer ordered by MD. kdr 16:27 Discharge ordered by MD. kdr 16:40 Discharged to home ambulatory. zb 16:40 Discharge instructions given to patient, Instructed on discharge instructions, follow up and referral plans. medication usage. 16:45 Patient left the ED. sv Signatures: Dispatcher [employer] Jessica Griggs, RN RN sv Albert Medina MD MD kdr Sanford, Demi ds1 Dorcas Goel Zipporah, RN RN zb Corrections: (The following items were deleted from the chart) 16:34 14:48 called the [facility] Transfer Center in attempt to check on status of transfer/ per brady Mathews she is still waiting for insurance verification. eb
[2020-07-15] MEDS ORDERED: HYDROCODONE/APAP 7.5/325 MG TAB ONE (16:47)
[2020-07-15 22:17] VITALS: TEMP 98.3
[2020-07-15 22:24] VITALS: BP 130/79; O2SAT 96
== END 2020-07-15 16:45 | disposition home or self-care (01) ==
LOC: ER 08:48
DX: R07.89 Other chest pain (principal); R06.02 Shortness of breath; I10 Essential (primary) hypertension; E11.9 Type 2 diabetes mellitus without complications; Z79.82 Long term (current) use of aspirin; Z95.818 Presence of other cardiac implants and grafts
CPT/HCPCS: 36415; 71045; 71275; 80048; 80076; 81003; 83735; 83880; 84484; 85025; 85610; 93005; 96374; 96375; 99285; J2405; J7030; J7050; Q9967

== ENCOUNTER 2020-10-04 14:51 | Emergency (ER) | payer OTHER, SELFPAY ==
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
--- NOTE | 2020-10-04 16:53 | RAD REPORT ---
EXAM DESCRIPTION: Bettie Single View10/04/2020 4:23 pm CLINICAL HISTORY: Chest pain COMPARISON: 2019 FINDINGS: The lungs appear clear of acute infiltrate. The heart is normal size IMPRESSION: No acute abnormalities displayed
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
[2020-10-04 17:26] VITALS: BP 138/100; TEMP 98.1; O2SAT 98
--- OUTSIDE RECORDS SUMMARY | 2020-10-04 17:51 | XMS REPORT | Continuity of Care Document ---
:1980 Author Organization [facility] t Address [address] [place] [address] Care Team Providers Name Role Phone Asked, No Pcp Primary Care Physician Unavailable James CARMONA, E Attending Clinician Chriss Attending Clinician Shandra STARR R Attending Clinician Lane ESCOBAR, F Attending Clinician Patti ESCOBAR Attending Clinician Anuj ESCOBAR Attending Clinician Adam RODRIGUEZ Attending Clinician Che ESCOBAR Attending Clinician Doctor Unassigned, Name Attending Clinician Unavailable Lane ESCOBAR, F Admitting Clinician Che ESCOBAR Admitting Clinician Problems Condition Condition Condition Status Onset [...] Date Quantity Comments Source Sex Assigned At [facility] ethodist Tobacco use and 2018-07-21 2018-07-21 Never used [facility] exposure 00:00:00 00:00:00 Alcohol intake 2018-07-21 2018-07-21 Current drinker of [facility] 00:00:00 00:00:00 alcohol (finding) Alcohol Comment 2018-07-08 2018-07-08 ocassional [facility] 00:00:00 00:00:00 Smoking Status Start Date Stop Date Source Current some day smoker 2018-07-21 00:00:00 [place] [facility] Medications Ordered Filled Start Stop Current Ordering Indication Dosage Frequency Signature Comments Components Source Medication Medication Date Date Medication? Clinician (SIG) Name Name KEKE 2017-08 Yes APPLY [place] ointment 2-03 TOPICALLY Method i 00:00: DAILY. st 00 metoprolol 2017-08 Yes 50mg Q.5D Take 50 mg [place] succinate 09-20 by mouth 2 Meth rosi XL 08:56: (two) st (TOPROL-XL) 11 times a 50 mg 24 hr day. tablet dextroamphe 2017-08 Yes 20mg Q.5D Take 20 mg [place] tamine-amph 09-20 by mouth 2 Me [place] etamine 08:56: (two) st (ADDERALL) 11 times a 20 mg day. tablet gabapentin 2017-08 Yes 300mg [id number] Take 300 Ven[place] (NEURONTIN) 09-20 [id number] mg by ethodi 300 mg 08:56: 3D mouth 3 [...] meals. collagenase 2017-08 Yes Apply to Deepak [facility]chell (SANTYL) 09-20 wound [facility] ointment 00:00: daily with st 00 wet to dry dressing Procedures This patient has no known procedures. Plan of Care Planned Activity Planned Date Details Comments Source Future Scheduled 2020-03-25 INFLUENZA VACCINE [place] [facility] Test 00:00:00 [code = INFLUENZA VACCINE] Future Scheduled 1997 Hepatitis C [facility] Met [facility]ist Test 00:00:00 screening (procedure) [code = 050943180] Future Scheduled 1995 COVID-19 VACCINE (1 [place] [facility] Test 00:00:00 of 2) [code = COVID-19 VACCINE (1 of 2)] Encounters Start End Encounter Admission Attending Care Care Encounter Source Date/Time Date/Time Type Type Clinicians Facility Department ID 2020-09-19 2020-09-19 Patient Jennie Ramirez [id number] 00:00:00 00:00:00 Outreach E NOEL [id number] [facility] [id number] 2020-09-14 2020-09-14 Patient Jennie Ramirez Yifan [id number] 00:00:00 00:00:00 Outreach E Oliveros [id number] [place] [id number] 2020-09-12 2020-09-12 Transition Yifan Banerjee [id number] 00:00:00 00:00:00 of Care Coriedarrel Oliveros [id number] [place] [id number] 2020-09-06 2020-09-09 Hospital Ilene Devi [id number] 09:57:00 12:27:00 Encounter Any [place] [id number] 0 [facility] [id number] 2020-09-06 2020-09-06 Telephone MARTINEZ Leslie [id number] 00:00:00 00:00:00 Julius Mcintyreton [id number] [place] [id number] [facility] [id number] nal 059 [facility] 2020-09-01 2020-09-03 Emergency Isamar Medina [facility] 1.2.840 [id number] 16:41:00 14:30:00 Chantel Bolton [id number] [place] 4.2.7.2.686 [place] [id number] 2020-07-05 2020-07-05 Orders Doctor KRISTIE [id number] 00:00:00 00:00:00 Only Unassigned, NOEL [id number] [place] [facility] [id number] 2020-06-27 2020-06-27 Office [facility] [id number] 13:05:18 13:42:05 Visit Carloslesvia Jade [id number] [place] [id number] [facility] [id number] [facility] 059 [facility] Results This patient has no known results.
--- OUTSIDE RECORDS SUMMARY | 2020-10-04 17:51 | XMS REPORT | Clinical Summary ---
:1980 Author Organization [facility] Address [address] [place] [address] Care Team Providers Name Role Phone Asked, [...] FX; Surgeo n: Rubina Kenney DPM; Location: [facility] OR; Service: Podiatr y; Laterality: Righ t; Medical [...] Health Maintenance Due Date Last Done Comments COVID-19 VACCINE (1 of 2) 1995 HEPATITIS C SCREENING 1997 INFLUENZA VACCINE 03/25/2020 Results Not on fileafter 10/04/2019 Insurance Payer Benefit Plan / Subscriber ID Effective Dates Phone Addre ss Type Group WORKERS COMP ESIS [id number] 2018-Prese Workers Comp nt Guarantor Name Account Type Relation to Date of Phone Bill ing Patient Address [id number] Workers Comp Employer 08/25/1900 [address], (Home) [facility] [employer] 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
--- OUTSIDE RECORDS SUMMARY | 2020-10-04 17:51 | XMS REPORT | Summary of Care ---
:1980 Author Organization [facility] - Health Address [address] [place] [address] Care Team Providers Name Role Phone Omari Thao Primary Care Provider Encounter Details Date Type Department Care Team Description 07/05/2020 Orders Only [facility] Doctor Unassigned, No [address] [facility] Name [address] [address] Allergies No Known Allergiesdocumented as of this encounter (statuses as of 07/24/2020) Medications Medication Sig Dispensed Refills Start Date [...] for Pain (scale 4-6). methocarbamol (ROBAXIN) 500 Take 500 mg by mouth 2 0 Active mg tablet (two) times daily. metFORMIN 1,000 mg tablet Take 1,000 mg by mouth 0 Active 2 (two) times daily with meals. insulin aspart U-100 (NOVOLOG inject 10 Units under 3 mL 5 05/15/2019 Active FLEXPEN U-100 INSULIN) 100 the skin 3 (three) unit/mL (3 mL) times daily before injectionIndications: Type 2 meals. diabetes mellitus without complication, without long-term current use of insulin fluticasone propionate Use 1 Clifford in each 0 Active (FLONASE ALLERGY RELIEF) 50 nostril daily. mcg/actuation nasal spray diclofenac 50 mg EC tablet Take 50 mg by mouth 0 Active daily. atorvastatin 80 mg Take 1 tablet by mouth 90 tablet 3 05/28/20 20 Active tabletIndications: Unstable daily. angina clopidogreL 75 mg Take 1 tablet by mouth 30 tablet 11 0 Active tabletIndications: Unstable daily. angina fenofibrate micronized 67 mg Take 1 capsule by 90 capsule 3 Active capsuleIndications: Unstable mouth daily. angina isosorbide mononitrate 120 mg Take 1 tablet by mouth 30 tablet 11 05/28/2020 Active 24 hr tabletIndications: daily. Unstable angina lisinopriL 2.5 mg Take 1 tablet by mouth 90 tablet 3 0 Active tabletIndications: Unstable daily. angina aspirin 81 mg chewable Take 1 tablet by mouth 30 tablet 11 12/2019 Active tabletIndications: Unstable daily. 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 Unstable angina 05/24/2020 Type 2 diabetes mellitus without complication, without long-term current 05/24/2020 use of insulin Family history of early CAD 05/24/2020 Essential hypertension 05/24/2020 Coronary artery calcification 05/24/2020 Atypical chest pain 05/23/2020 Orbital cellulitis, right 05/10/2019 Overview: S/P Orbitotomy with Mass Excision OD Obesity (BMI 30-39.9) 05/10/2019 documented as of this encounter (statuses as of 07/24/2020) Immunizations Name Administration Dates Next Due Influenza [...] with No / Unsure 06/27/2020 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
--- OUTSIDE RECORDS SUMMARY | 2020-10-04 17:52 | XMS REPORT | Summary of Care ---
:1980 Author Organization [facility] - [place] [facility] Address [address] [place] [address] Care Team Providers Name Role Phone Rupert Thao Primary Care Provider Reason for Referral (Routine) Status Reason Specialty Diagnoses / Referred By Referred To Procedures Contact Contact New Request IM-INTERVENTIONAL Diagnoses Chest pain, unspecified type Shurtleff, CARDIOLOGY Procedures Discharge Follow-Up: Specialty Service IM-INTERVENTIONAL CARDIOLOGY; 3-5 Days REJI Patel [id number] [place] [address] (Routine) Status Reason Specialty Diagnoses / Referred By Referred To Procedures Contact Contact New Request Diagnoses Chest pain, unspecified type Racquelurtleff, Master Patel William E Procedures Discharge Follow-up: PCP RUPERT THAO; 3-[address] [facility] [id number] [place], [place] [phone] Phone: Fax: (Routine) Status Reason Specialty Diagnoses / Referred By Contact Refe rred To Procedures Contact New Request Cardiology Diagnoses Chest pain, unspecified type Chantel Bolton MD Procedures ECHO ROUTINE W/DOPPLER COLOR [address] [facility]. [place], [place] [address] Phone: MRI/CAT Scan (STAT) Status Reason Specialty Diagnoses / Referred By Referred To Procedures Contact Contact New Request Diagnostic Diagnoses Chest pain, unspecified type Isamar Medina, Radiology Procedures CT CHEST PULMONARY ANGIOGRAM CT ANGIOGRAM CHEST [address] [phone] Radiology Services (STAT) Status Reason Specialty Diagnoses / Referred By Referred To Procedures Contact Contact New Request Diagnostic Diagnoses Chest pain, unspecified type Isamar Medina, Radiology Procedures Chest [address] [phone] Reason for Visit Reason Comments Chest Pain Auth/Cert Status Reason Specialty Diagnoses / Referred By Referred To Procedures Contact Contact Emergency Medicine [facility] [address] [place] [phone] Fax: Encounter Details Date Type Department Care Team Description 09/01/2020 - Emergency ADC Medicine Surgery [facility], [address] [phone] Chest pain 09/03/2020 Unit Chantel Bolton MD [address] [place] [address]. [place], [place] [id number] [address] [place], [place] [id number] Allergies No Known Allergiesdocumented as of this encounter (statuses as of 09/03/2020) Medications Medication Sig Dispensed Refills Start Date End Date Status methocarbamol Take 500 mg by 0 A ctive (ROBAXIN) 500 mg mouth 2 (two) tablet times daily. metFORMIN 1,000 mg Take 1,000 mg 0 Active tablet by mouth 2 (two) times daily with meals. fluticasone Use 1 [place] in 0 Act andie propionate each nostril (FLONASE ALLERGY daily. RELIEF) 50 mcg/actuation nasal spray diclofenac 50 mg Take 50 mg by 0 Active EC tablet mouth daily. atorvastatin 80 mg Take 1 tablet 90 tablet 3 05/28/2020 Active tabletIndications: by mouth Unstable angina daily. clopidogreL 75 mg Take 1 tablet 30 tablet 11 05/28/2020 Active tabletIndications: by mouth Unstable angina daily. fenofibrate Take 1 capsule 90 capsule 3 05/28/2020 A ctive micronized 67 mg by mouth capsuleIndications daily. : Unstable angina isosorbide Take 1 tablet 30 tablet 11 05/28/2020 Acti ve mononitrate 120 mg by mouth 24 hr daily. tabletIndications: Unstable angina aspirin 81 mg Take 1 tablet 30 tablet 11 05/29/2020 A ctive chewable by mouth tabletIndications: daily. Unstable angina DULoxetine Take 30 mg by 0 Activ e (CYMBALTA) 30 mg mouth daily. capsule metoprolol Take 100 mg by 0 Acti ve succinate XL 100 mouth 2 (two) mg 24 hr tablet times daily. gabapentin 300 mg Take 2 60 capsule 0 09/03/2020 Active capsuleIndications capsules by : Chest pain, mouth 2 (two) unspecified type times daily. losartan 25 mg Take 1 tablet 30 tablet 0 09/04/2020 Active tabletIndications: by mouth Chest pain, daily. unspecified type nitroglycerin 0.[address] Place 1 tablet 30 tablet 0 09/03/2020 Active mg sublingual under the tabletIndications: tongue every Chest pain, 5 (five) unspecified type minutes as needed for Chest pain. albuterol (PROAIR Inhale 2 Puffs 8.5 g 1 09/03/2020 Active HFA) 90 every 6 (six) mcg/actuation hours as inhalerIndications needed for : Chest pain, Wheezing or unspecified type Shortness of Breath. HYDROcodone-acetam Take 1 tablet 90 tablet 0 06/12/2018 Discontinued inophen (NORCO) by mouth every 21 (Patient 10-325 mg tablet 6 (six) hours Reported) as needed for Pain (scale 4-6) or Pain (scale 7-10). gabapentin 300 mg Take 1 capsule 30 capsule 1 06/13/201809/03 Discontinued capsule by mouth 2 21 (Reorder) (two) times daily. ibuprofen 600 mg Take 1 tablet 30 tablet 1 06/13/2018 09/02/19 Discontinued tablet by mouth every 21 (Pinky ent 8 (eight) Reported) hours as needed for Pain (scale 4-6). insulin aspart inject 10 3 mL 5 05/15/2019 09/02/19 Disc ontinued U-100 (NOVOLOG Units under 21 (Pa awais FLEXPEN U-100 the skin 3 Repor melissa) INSULIN) 100 (three) times unit/mL (3 mL) daily before injectionIndicatio meals. ns: Type 2 diabetes mellitus without complication, without long-term current use of insulin lisinopriL 2.5 mg Take 1 tablet 90 tablet 3 05/28/2020 0 Discontinued tabletIndications: by mouth 21 Unstable angina daily. Oxycodone 10 mg Take 1 tablet 0 09/02/19 Discontinued Tab by mouth every 21 (Pinky ent 6 (six) hours Report ed) as needed for Pain (scale 7-10). documented as of this encounter (statuses as of 09/03/2020) Active Problems Problem Noted Date Chest pain 09/01/2020 Stable angina 06/02/2020 Coronary artery disease involving [place] coronary ema ry of [place] heart 06/02/2020 with angina pectoris Unstable angina 05/24/2020 Type 2 diabetes mellitus without complication, without long-term current 05/24/2020 use of insulin Family history of early CAD 05/24/2020 Essential hypertension 05/24/2020 Coronary artery calcification 05/24/2020 Atypical chest pain 05/23/2020 Orbital cellulitis, right 05/10/2019 Overview: S/P Orbitotomy with Mass Excision OD Obesity (BMI 30-39.9) 05/10/2019 documented as of this encounter (statuses as of 09/03/2020) Immunizations Name Administration Dates Next Due Influenza Virus Vaccine Quad .5 mL IM 6+ MO 05/28/2020 Pneumococcal Polysaccharide, PPSV23 (PNEUMOVAX) 05/28/2020 Td 06/12/2018 documented as of this encounter Social History Tobacco Use Types Packs/Day Years Used Date Former Smoker Cigarettes 1 05/10/1996 - 1 09/07/2017 Smokeless Tobacco: Former User Tobacco Cessation: Counseling Given: No Comments: Quit 2 years ago Alcohol Use [...] been in contact with No / Unsure 09/01/2020 4:38 PM LEAD RECOVERER someone who was confirmed or suspected to have Coronavirus / COVID-19? documented as of this encounter Last Filed Vital Signs Vital Sign Reading Time Taken Comments Blood Pressure 117/89 09/03/2020 11:23 AM LEAD RECOVERER Pulse 70 09/03/2020 11:23 AM LEAD RECOVERER Temperature 36 C (96.8 F) 09/03/2020 11:23 AM LEAD RECOVERER Respiratory Rate 18 09/03/2020 7:31 AM LEAD RECOVERER Oxygen Saturation 97% 09/03/2020 11:23 AM LEAD RECOVERER Inhaled Oxygen Concentration - - Weight 116.1 kg (256 lb) 09/01/2020 4:40 PM LEAD RECOVERER Height 175.3 cm (5' 9") 09/01/2020 4:40 PM LEAD RECOVERER Body Mass Index 37.8 09/01/2020 4:40 PM LEAD RECOVERER documented in this encounter Discharge Instructions AttachmentsThe following attachments cannot be sent through Care Everywhere. Losartan tablets (Afghan)Albuterol inhalation aerosol (Afghan)Nitroglycerin sublingual tablets (Afghan)documented in this encounter Progress Notes Julius Leslie MD - 09/03/2020 1:14 PM CST [facility] Cardiology progress note Date of Service: 09/03/2020 Brett Kramer is a 40 years old male hospitalized for chest pain. Still has constant chest pain--7/10. Worse with certain positions. BOWEN. PHYSICAL EXAM Vitals: 09/02/20 2332 09/03/20 0317 09/03/20 0731 09/03/20 1123 BP: 117/77 117/87 130/88 117/89 Pulse: 67 73 67 70 Resp: 18 18 18 Temp: 36.6 C (97.8 F) 36.4 C (97.6 F) 36.9 C (98.5 F) 36 C (96.8 F) TempSrc: Temporal Artery Temporal Artery Temporal Artery Temporal Artery SpO2: 97% 99% 100% 97% Weight: Height: Date 09/03/20 0700 - 09/04/20 0659 Shift 9020-0562 4036-5988 9986-4917 24 Hour Total INTAKE Shift Total OUTPUT Urine(mL/kg/hr) 500 500 Shift Total 500 500 Weight (kg) 116.1 116.1 116.1 116.1 General: alert and oriented x 3 (person, place and date/time); no apparent distress, obese HEENT: normocephalic atraumatic Neck: supple, no lymphadenopathy, no bruits, no JVD Lungs: clear to auscultation bilaterally Cardio: S1, S2, normal rate, regular; no murmurs, rubs or gallops Abdomen: non-distended : not examined Rectal: not examined Extremities: no clubbing, cyanosis, or edema Skin: no rashes Neuro: no focal deficits Medications: I have reviewed the patient's medications; see Medication Reconciliation. Labs: I have reviewed the patient's labs. ASSESSMENT AND PLAN Principal Problem: Chest pain Active Problems: Obesity (BMI 30-39.9) Type 2 diabetes mellitus without complication, without long-term current use of insulin Essential hypertension Coronary artery disease involving [place] coronary artery of [place] heart with angina pectoris Chest pain--Atypical with mixed feature. Stated that it is similar to his angina in 04/2020. No acuteEKG changes. IL ruled out by negative troponin. Discussed with patient my concerns of possible coronary stenosis. I recommend further ischemia workup such as LHC vs stress test. Due to disability appointment next Friday, he does not want to be transferred for C. We restarted metoprolol 100 mg BID. Advised that if symptoms get worse, he needs to come back to ER for urgent evaluation. CAD--s/p LAD and RCA PCI YUE in 05/2020 for unstable angina. Continue ASA/plavix/lipitor/Imdur/metoprolol. HTN--Restarted metoprolol. Due to cough, we switched lisinopril to losartan. His BP is well controlled. DM--per primary team. A1c > 9. Obesity--discussed diet and weight loss. Julius Leslie MD, [facility], [facility] Registration Officer, Division of Cardiology [facility] Jorge Barlow PA - 09/02/2020 1:59 PM CST [facility] Hospitalist Progress Note SUBJECTIVE: In bed resting. Feeling better. States still having intermittent chest pain. CURRENT MEDICATIONS - reviewed. Current Facility-Administered Medications Medication Dose Route Frequency Last Rate Last Admin acetaminophen (TYLENOL) tablet 650 mg 650 mg Oral Q6HPRN aspirin chewable tablet 81 mg 81 mg Oral DAILY 81 mg at 09/02/20815 atorvastatin (LIPITOR) tablet 80 mg 80 mg Oral DAILY 80 mg at 09/02/20815 benzocaine-menthoL (CEPACOL SORE THROAT (APPLE-MEN)) lozenge 1 Lozenge 1 Lozenge Oral Q4HPRN clopidogreL (PLAVIX) tablet 75 mg 75 mg Oral DAILY 75 mg at 09/02/20816 dextrose 50 % in water (D50W) injection 25 mL 25 mL Slow IV Push PRN DULoxetine (CYMBALTA) capsule 30 mg 30 mg Oral DAILY 30 mg at 09/02/20816 enoxaparin (LOVENOX) injection 40 mg 40 mg Subcutaneous DAILY fenofibrate micronized (LOFIBRA) capsule 67 mg 67 mg Oral DAILY 67 mg at 09/02/20815 fluticasone propionate 50 mcg/actuation nasal spray 1 [place] 1 [place] Nasal DAILY 1 [place] at 09/02/20816 gabapentin (NEURONTIN) capsule 300 mg 300 mg Oral BID 300 mg at 09/02/20815 glucagon (GLUCAGEN DIAGNOSTIC KIT) injection 1 mg 1 mg Intramuscular PRN isosorbide mononitrate (IMDUR) 24 hr tablet 120 mg 120 mg Oral DAILY 120 mg at 09/02/20816 [START ON 09/03/2020] losartan (COZAAR) tablet 25 mg 25 mg Oral DAILY methocarbamoL (ROBAXIN) tablet 500 mg 500 mg Oral BID 500 mg at 09/02/20 0816 metoprolol succinate XL (TOPROL XL) tablet 100 mg 100 mg Oral BID 100 mg at 09/02/20 1218 nitroglycerin (NITROSTAT) sublingual tablet 0.4 mg 0.4 mg Sublingual Q5MIN PRN ondansetron (ZOFRAN (PF)) injection 4 mg 4 mg Slow IV Push Q6HPRN 4 mg at 09/02/20 0241 Sliding Scale Insulin-Regular + Fsbg Testing Subcutaneous AC Stopped at 09/02/20 0730 azithromycin (ZITHROMAX) 500 mg in NaCl 0.9% (NS) 250 mL VIAL-MATE IV piggyback 500 mg IV Piggyback Q24H ABX 500 mg at 09/01/20 2239 HYDROcodone-acetaminophen (NORCO) 10-325 mg tablet 1 tablet 1 tablet Oral Q6HPRN 1 tablet at 09/02/20 0530 morpHINE injection 4 mg 4 mg Slow IV Push Q4HPRN 4 mg at 09/02/20 1034 PHYSICAL EXAM: BP (!) 127/93 | Pulse 75 | Temp 36 C (96.8 F) (Temporal Artery) | Resp 18 | Ht 1.753 m (5' 9") | Wt 116.1 kg (256 lb) | SpO2 100% | BMI 37.80 kg/m General: No respiratory distress, obese HEENT: Anicteric sclerae, NCAT Lungs: Symmetric expansion, CTAB Cardio: RRR, strong symmetric pulses Abdomen: Soft, NTND Genitourinary: No lesions Musculoskeletal: Normal muscle mass, no synovitis Skin: No rash or lesions Neuro: AAOx3, no focal deficits Psych: Normal affect LABS/IMAGING - reviewed, pertinent results as below: CBC BMP PT/INR WBC (10*3/L) Date Value 09/01/2020 10.85 (H) NA (mmol/L) Date Value 09/01/2020 134 (L) No results found for: PT RBC (10*6/L) Date Value 09/01/2020 4.82 K (mmol/L) Date Value 09/01/2020 4.5 INR (no units) Date Value 09/01/2020 1.0 PLT (10*3/L) Date Value 09/01/2020 269 CALCIUM (mg/dL) Date Value 09/01/2020 9.1 HGB (g/dL) Date Value 09/01/2020 15.0 CL (mmol/L) Date Value 09/01/2020 97 (L) aPTT HCT (%) Date Value 09/01/2020 44.9 BUN (mg/dL) Date Value 09/01/2020 18 APTT Patient (Seconds) Date Value 06/02/2020 30 CREATININE (mg/dL) Date Value 09/01/2020 0.84 IMAGING- Hospital Encounter on 09/01/20 CT CHEST PULMONARY ANGIOGRAM Narrative PROCEDURE: CT ANGIO CHEST WITH CONTRAST - PE PROTOCOL CLINICAL INDICATION: PE suspected, high pretest prob COMPARISON: 929 2 TECHNIQUE: Helical CT was performed and reconstructed at 1.25 mm slice thickness from lung base to apices after the administration of 120 mL Omnipaque-350 intravenous contrast, without complication. Display field of view: 40 cm. FINDINGS: PULMONARY ARTERIES: Enhancement is suboptimal. No acute pulmonary embolism is seen to proximal pulmonary arteries. Pulmonary trunk is normal in diameter. CHEST: Lower neck/thyroid: Normal thyroid gland. Lungs: Unchanged 6 mm solid pulmonary nodule with lobulated margins in the lingula. Bilateral scattered tree-in-bud opacities, for example in the right upper lobe on coronal image #103. No parenchymal consolidations are seen. Pleura: No pleural thickening, pleural effusion or pneumothorax. Central airway: The central airways are patent. Thoracic aorta and great vessels: Normal in diameter. Heart and pericardium: Dense multivessel coronary arterial calcification/stents.. Unremarkable cardiac morphology and pericardium. Lymph nodes: No enlarged thoracic lymph nodes. Mediastinum: Unremarkable. Thoracic spine and chest wall: No suspicious or aggressive osseous lesion. Other Lines/Tubes/Devices/Hardware: None Visualized upper abdomen: Unremarkable. Impression No acute pulmonary embolism. Suboptimal enhancement of pulmonary arteries. Subtle bilateral tree-in-bud opacities may represent a mild infectious/inflammatory etiology. Unchanged 6 mm pulmonary nodule in the lingula. Recommend follow-up chest CT no later than 12 months. Multivessel coronary arterial calcification/stents. Preliminary Report Dictated by Resident: John Echols MD., have reviewed this study and agree with the above report. Chest 1 View Narrative Exam: XR CHEST 1 VW 09/01/2020 4:50 PM Clinical History: CP Comparison: Radiograph of 06/02/2020 Technique: frontal view of the chest Findings: The lungs are clear. No pleural effusion. No pneumothorax. The cardiac size is normal. No acute osseous abnormality. Impression Impression: No acute cardiopulmonary abnormality. ASSESSMENT/PLAN Brett Kramer is a 40 year old male with PMH as listed above, admitted to the hospital with: #Atypical chest pain -Troponins negative x4 -Telemetry with no normal rhythms -Limited echocardiogram from 06/02/2020 with an EF of 60 to 65% and normal left ventricular systolicfunction. Prior echo from 05/24/2020 shows diastolic dysfunction, same EF and a mildly dilated leftatrium -Cardiology consulted. Recommending cardiac cath due to his past medical history but patient states he cannot miss an appointment on Friday regarding his disability. Will monitor and reevaluate tomorrow. -Continue O2, nitroglycerin as needed, statin, clopidogrel and aspirin #DM type 2 -Continue sliding scale insulin #Essential hypertension -Continue metoprolol Prophylaxis: DVT- enoxaparin Stress Ulcer: no indication for prophylaxis Code Status: addressed: FC Disposition: Home REJI Stout RECOVERER Associated attestation - Logan Seth MD - 09/02/2020 4:59 PM CSTI have independently seen and evaluated this patient. I agree with the note below including physicalexam and plan. In summary, patient is admitted for atypical chest pain with hx CAD. Resume home medsincluding metoprolol, imdur, DAPT, statin. No evidence of ACS. Cardiology on board - if chest pain persistent then recommend [facility] but patient does not want to pursue this at this point. Rest of plan perbelow. documented in this encounter H&P Notes Chantel Bolton MD - 09/01/2020 10:10 PM CST MEDICINE ADC ADMIT H&P Date of Service: 09/01/2020 CHIEF COMPLAINT: chest pain, shortness of breath History of Present Illness 40 year-old with pmh of DM, HTN, PE, bronchitis who presents to the ED secondary to intermittent worsening chest pain for the past 24 hours. He describes as midsternum chest pain to back and the left shoulder/arm. Associated symptoms: shortness of breath. Patient notes that he has not been on his medications because he ran out of medication. Tried nitroglycerin last night with with minimal relief. Morphine has helped with the pain. Similar to when they had placed the stent. -nausea -vomiting -diaphoresis PAST MEDICAL HISTORY Past Medical History: Diagnosis Date Complex regional pain syndrome type II of right lower limb DM (diabetes mellitus) History of pulmonary embolus (PE) 2013 HTN (hypertension) CAD s/p stent () in [place] Past Surgical History: Procedure Laterality Date ARTHROSCOPIC SHOULDER ROTATOR CUFF REPAIR 10/2017 MASS EXCISION Right 05/14/2019 Surgeon: Diaz Obrien MD; [facility] ORBITOTOMY Right 05/14/2019 Surgeon: Diaz Obrien MD; [facility]: [facility] Family History Problem Relation Age of Onset Stroke Mother 67 Diabetes Mother Hypertension Mother Diabetes Father Coronary Heart Disease Father before the age of 50 Diabetes Brother ALLERGIES No Known Allergies MEDICATIONS No current facility-administered medications on file prior to encounter. Current Outpatient Medications on File Prior to Encounter Medication Sig Dispense Refill DULoxetine (CYMBALTA) 30 mg capsule Take 30 mg by mouth daily. Oxycodone 10 mg Tab Take 1 tablet by mouth every 6 (six) hours as needed for Pain (scale 7-10). aspirin 81 mg chewable tablet Take 1 [...] RELIEF) 50 mcg/actuation nasal spray Use 1 [place] in eachnostril daily. insulin aspart U-100 (NOVOLOG FLEXPEN U-100 INSULIN) 100 unit/mL (3 mL) injection inject 10 Units under the skin 3 (three) times daily before meals. 3 mL 5 metFORMIN 1,000 mg tablet Take 1,000 mg by mouth 2 (two) times daily with meals. methocarbamol (ROBAXIN) 500 mg tablet Take 500 mg by mouth 2 (two) times daily. gabapentin 300 mg capsule Take 1 capsule by mouth 2 (two) times daily. (Patient taking differently: Take 600 mg by mouth 2 (two) times daily.) 30 capsule 1 ibuprofen 600 mg tablet Take 1 tablet by mouth every 8 (eight) hours as needed for Pain (scale 4-6). 30 tablet 1 HYDROcodone-acetaminophen (NORCO) 10-325 mg tablet Take 1 tablet by mouth every 6 (six) hours asneeded for Pain (scale 4-6) or Pain (scale 7-10). 90 tablet 0 SOCIAL HISTORY Social History Socioeconomic [...] date: 05/10/1996 Quit date: 07/08/2018 Years since quittin.1 Smokeless tobacco: Former User Tobacco comment: Quit [...] file Gets together: Not on file Attends mandaeism service: Not on file Active member of [...] file Social History Narrative Not on file Review of Systems Constitutional: Negative. HENT: Positive for congestion, postnasal drip and rhinorrhea. Negative for dental problem, drooling,ear discharge, ear pain, facial swelling, hearing loss, mouth sores, nosebleeds, sinus pressure, sneezing, tinnitus, trouble swallowing and voice change. Eyes: Negative. Respiratory: Positive for cough (nonproductive) and shortness of breath. Negative for apnea, choking, chest tightness, wheezing and stridor. Breasts: Negative. Cardiovascular: Positive for chest pain and palpitations. Negative for leg swelling. Gastrointestinal: Negative. Genitourinary: Negative. Musculoskeletal: Positive for arthralgias and back pain. Negative for gait problem, joint swelling, myalgias, neck pain and neck stiffness. Skin: Negative. Neurological: Positive for light-headedness and headaches. Negative for dizziness, tremors, seizures, syncope, facial asymmetry, speech difficulty, weakness and numbness. Psychiatric/Behavioral: Negative. Endocrine: Endocrine negative PHYSICAL EXAMINATION Vitals: 09/01/20 1930 09/01/20 2001 09/01/20203009/01/202056 BP: 135/87 (!) 142/98 138/88 (!) 144/91 Pulse: 81 81 79 78 Resp: Temp: 36.7 C (98 F) TempSrc: Temporal Artery SpO2: 100% 100% 99% 99% Weight: Height: Physical Exam Constitutional: He is oriented to person, place, and time. He appears well- developed and well-nourished. No distress. HENT: Head: Normocephalic and atraumatic. Right Ear: External ear normal. Left Ear: External ear normal. Eyes: Pupils are equal, round, and reactive to light. Conjunctivae and EOM are normal. Right eye exhibits no discharge. Left eye exhibits no discharge. No scleral icterus. Neck: Normal range of motion. Cardiovascular: Normal rate and regular rhythm. Exam reveals no gallop and no friction rub. No murmur heard. Pulmonary/Chest: Effort normal and breath sounds normal. No respiratory distress. He has no wheezes.He has no rales. He exhibits no tenderness. Abdominal: Soft. He exhibits no distension. There is no abdominal tenderness. There is no rebound and no guarding. Musculoskeletal: Normal range of motion. General: No edema. Neurological: He is alert and oriented to person, place, and time. Skin: Skin is warm and dry. No rash noted. No erythema. No pallor. Psychiatric: He has a normal mood and affect. His behavior is normal. Judgment and thought content normal. LABS - reviewed pertinent labs as below: Reviewed IMAGING - reviewed, pertinent results as below: PROCEDURE: CT ANGIO CHEST WITH CONTRAST - PE PROTOCOL CLINICAL INDICATION: PE suspected, high pretest prob COMPARISON: 929 2 TECHNIQUE: Helical CT was performed and reconstructed at 1.25 mm slice thickness from lung base to apices after the administration of 120 mL Omnipaque-350 intravenous contrast, without complication. Display field of view: 40 cm. FINDINGS: PULMONARY ARTERIES: Enhancement is suboptimal. No acute pulmonary embolism is seen to proximal pulmonary arteries. Pulmonary trunk is normal in diameter. CHEST: Lower neck/thyroid: Normal thyroid gland. Lungs: Unchanged 6 mm solid pulmonary nodule with lobulated margins in the lingula. Bilateral scattered tree-in-bud opacities, for example in the right upper lobe on coronal image #103. No parenchymal consolidations are seen. Pleura: No pleural thickening, pleural effusion or pneumothorax. Central airway: The central airways are patent. Thoracic aorta and great vessels: Normal in diameter. Heart and pericardium: Dense multivessel coronary arterial calcification/stents.. Unremarkable cardiac morphology and pericardium. Lymph nodes: No enlarged thoracic lymph nodes. Mediastinum: Unremarkable. Thoracic spine and chest wall: No suspicious or aggressive osseous lesion. Other Lines/Tubes/Devices/Hardware: None Visualized upper abdomen: Unremarkable. IMPRESSION No acute pulmonary embolism. Suboptimal enhancement of pulmonary arteries. Subtle bilateral tree-in-bud opacities may represent a mild infectious/inflammatory etiology. Unchanged 6 mm pulmonary nodule in the lingula. Recommend follow-up chest CT no later than 12 months. Multivessel coronary arterial calcification/stents. Preliminary Report Dictated by Resident: Tramaine Vargas I, John Prasad MD., have reviewed this study and agree with the above report. EKG: sinus rhythm ASSESSMENT/PLAN Brett Kramer is a 40 year old male with PMH as listed above, admitted to the hospital with: 1. Chest pain atypical: So, far EKG and troponin are negative for an acute myocardial infarction. -- Will order pain control, oxygen, nitroglycerin prn, and aspirin. -- Will continue to trend the troponin -- Echocardiogram -- Cardiology has been consulted. 2. Diabetes: controlled -- Will order for insulin sliding scale for now 3. Hypertension: controlled -- Will continue with outpatient antihypertensive agent Prophylaxis: DVT- enoxaparin Code Status: addressed: FC documented in this encounter Consult Notes Julius Leslie MD - 09/02/2020 8:39 PM CSTAssociated Order(s): CONSULT CARDIOLOGY [facility] Cardiology Consult PCP: Rupert Thao Date of Service: 09/02/2020 CHIEF COMPLAINT/reason for consult: chest pain HISTORY OF PRESENT ILLNESS This is a 40 year-old male with PMH DM, HTN, obesity, PE and family h/o premature CAD. He underwent LHC in [facility] showing LAD and RCA disease. He eventually underwent PCI to LAD and RCA with YUE. He ran out of medications for 2 day. 2 days ago he began to have chest pain--non exertional, central and left sided pain, throbbing and stabbing, radiating to the back or left arm, feeling like "vise." Associated with dyspnea, dizziness. Seems to be worse with deep breath or activities. NTG only provided mildrelief. Feeling similar to his angina in 04/2020. PAST MEDICAL HISTORY Past Medical History: Diagnosis [...] Diaz Obrien MD; Location: [facility] Family History Problem Relation Age of Onset Stroke Mother 67 Diabetes Mother Hypertension Mother Diabetes Father Coronary Heart Disease Father before the age of 50 Diabetes Brother ALLERGIES No Known Allergies MEDICATIONS No current facility-administered medications on file prior to encounter. Current Outpatient Medications on File Prior to Encounter Medication Sig Dispense Refill metoprolol succinate XL 100 mg 24 hr tablet Take 100 mg by mouth 2 (two) times daily. DULoxetine (CYMBALTA) 30 mg capsule Take 30 mg by mouth daily. aspirin 81 mg chewable tablet Take 1 [...] RELIEF) 50 mcg/actuation nasal spray Use 1 [place] in eachnostril daily. metFORMIN 1,000 mg tablet Take 1,000 mg by mouth 2 (two) times daily with meals. methocarbamol (ROBAXIN) 500 mg tablet Take 500 mg by mouth 2 (two) times daily. gabapentin 300 mg capsule Take 1 capsule by mouth 2 (two) times daily. (Patient taking differently: Take 600 mg by mouth 2 (two) times daily.) 30 capsule 1 SOCIAL HISTORY Social History Socioeconomic History Marital [...] date: 05/10/1996 Quit date: 07/08/2018 Years since quittin.1 Smokeless tobacco: Former User Tobacco comment: Quit [...] file Gets together: Not on file Attends mandaeism service: Not on file Active member of [...] (-) anxiety, (-) depression PHYSICAL EXAMINATION Vitals: 09/02/20 0756 09/02/20 1102 09/02/20 1540 09/02/20 1945 BP: (!) 127/93 (!) 120/94 (!) 137/94 Pulse: 75 78 80 Resp: 16 18 18 18 Temp: 36 C (96.8 F) 36.2 C (97.1 F) 36.7 C (98 F) TempSrc: Temporal Artery Temporal Artery Temporal Artery SpO2: 98% 100% 98% 98% Weight: Height: Constitutional: alert and oriented x 3 [...] CBC BMP PT/INR WBC (10*3/L) Date Value 09/01/2020 10.85 (H) NA (mmol/L) Date Value 09/01/2020 134 (L) No results found for: PT PLT (10*3/L) Date Value 09/01/2020 269 K (mmol/L) Date Value 09/01/2020 4.5 INR (no units) Date Value 09/01/2020 1.0 HGB (g/dL) Date Value 09/01/2020 15.0 BUN (mg/dL) Date Value 09/01/2020 18 HCT (%) Date Value 09/01/2020 44.9 CREATININE (mg/dL) Date Value 09/01/2020 0.84 LIPID PROFILE GLUCOSE (mg/dL) Date Value 09/01/2020 198 (H) CHOL (mg/dL) Date Value 06/02/2020 97 (L) TSH LDL CHOL (mg/dL) Date Value 06/02/2020 31 TSH (mIU/L) Date Value 06/02/2020 2.01 CARDIAC ENZYMES HDL (mg/dL) Date Value 06/02/2020 25 (L) CK (U/L) Date Value 05/28/2020 52 TRIG (mg/dL) Date Value 06/02/2020 203 (H) LFTs CK-MB (ng/mL) Date Value 05/28/2020 0.27 AST(SGOT) (U/L) Date Value 09/01/2020 32 TROPONIN I (ng/mL) Date Value 09/02/2020 <0.012 ALT(SGPT) (U/L) Date Value 05/09/2019 28 ALTv (U/L) Date Value 09/01/2020 38 No results found for: BNP IMAGING - reviewed, pertinent results as below: CXR--clear EKG: normal sinus rhythm, lateral T wave inversion ASSESSMENT/PLAN Principal Problem: Chest pain Active Problems: Obesity (BMI 30-39.9) Type 2 diabetes mellitus without complication, without long-term current use of insulin Essential hypertension Coronary artery disease involving [place] coronary artery of [place] heart with angina pectoris Chest pain--Atypical with mixed feature. Stated that it is similar to his angina in 04/2020. No acuteEKG changes. IL ruled out by negative troponin. Discussed with patient my concerns of possible coronary stenosis. I recommend further ischemia workup such as LHC vs stress test. Due to disability appointment next Friday, he does not want to be transferred for [facility]. Will restart metoprolol 100 mg BID. Will watch his symptoms. If chest pain resolves, can discharge. If persists, will still recommend LHCalthough he may not want it. CAD--s/p LAD and RCA PCI YUE in 05/2020 for unstable angina. Continue ASA/plavix/lipitor/Imdur/metoprolol. HTN--Restart metoprolol. Due to cough, recommend to switch lisinopril to losartan. DM--per primary team. A1c > 9. Obesity--discussed diet and weight loss. Thank you for allowing us to participate in the care of your patient. Please feel free to contact usfor any questions or if we can be of further assistance. Julius Leslie MD, [facility], N[facility] Registration Officer, Division of Cardiology [facility] documented in this encounter ED Notes Desiree Granados RN - 09/01/2020 4:38 PM CSTChest pain since last night. States he had stents placed May 2020. He has been off of all his medications due to financial reasons for two days. He was able to start again yesterday. He has historyof PE and reports feeling the same symptoms when he was diagnosed. documented in this encounter Miscellaneous Notes Care Plan - Judy Romeo RN - 09/03/2020 8:07 AM LEAD RECOVERER Problem: Discharge Planning Goal: Absence of venous thromboembolism Outcome: Progressing as expected Goal: Adequate for discharge Outcome: Progressing as expected Goal: Knowledge of [...] Skin integrity Impaired (Risk or Actual) Goal: Prevention of new skin breakdown Outcome: Progressing as expected Problem: Tissue Perfusion, Cardiopulmonary - Altered Goal: Circulatory function within specified parameters Outcome: Progressing as expected are Plan - Kristin Bran RN - 09/02/2020 11:11 PM LEAD RECOVERER Problem: Discharge Planning Goal: Absence of venous thromboembolism Outcome: Progressing as expected Goal: Adequate for discharge Outcome: Progressing as expected Goal: Knowledge of [...] Skin integrity Impaired (Risk or Actual) Goal: Prevention of new skin breakdown Outcome: Progressing as expected Problem: Tissue Perfusion, Cardiopulmonary - Altered Goal: Circulatory function within specified parameters Outcome: Progressing as expected are Plan - Judy Romeo RN - 09/02/2020 8:15 AM LEAD RECOVERER Problem: Discharge Planning Goal: Absence of venous thromboembolism Outcome: Progressing as expected Goal: Adequate for discharge Outcome: Progressing as expected Goal: Knowledge of [...] Skin integrity Impaired (Risk or Actual) Goal: Prevention of new skin breakdown Outcome: Progressing as expected Problem: Tissue Perfusion, Cardiopulmonary - Altered Goal: Circulatory function within specified parameters Outcome: Progressing as expected are Plan - Kristin Bran RN - 09/01/2020 11:22 PM LEAD RECOVERER Problem: Discharge Planning Goal: Absence of venous thromboembolism Outcome: Progressing as expected Goal: Adequate for discharge Outcome: Progressing as expected Goal: Knowledge of [...] Skin integrity Impaired (Risk or Actual) Goal: Prevention of new skin breakdown Outcome: Progressing as expected Problem: Tissue Perfusion, Cardiopulmonary - Altered Goal: Circulatory function within specified parameters Outcome: Progressing as expected D Nurse Note - Judy Pearson RN - 09/01/2020 8:37 PM CSTPatient admitted to [facility] 12. Patient escorted to room by ED RN via wheelchair. Patient with even, non-labored breathing, GCS-15, vitals stable, & in no acute distress upon departure. Report called to Kristin CARMONA & all questions answered. documented in this encounter Plan of Treatment Date Type Specialty Care Team Description 12/25/2020 Office Visit Cardiology Julius Leslie M D [address] [place] [address] 15 [phone] Name Type Priority Associated Diagnoses Order S chedule CBC with Differential LAB Routine EVERY MORNING AT 0400 for 5 Occurrenc es starting 2020 until 1, 1 completed Basic Metabolic Panel (NA, LAB Routine E VERY MORNING AT 0400 K, CL, CO2, GLUCOSE, BUN, fo r 5 Occurrences CREATININE, CA) starting 05/2021 until 1, 1 completed Health Maintenance Due Date Last Done Comments URINE MICROALBUMIN 1989 FOOT EXAM 1997 DTaP,Tdap,and Td Vaccines (1 - 1998 06/12/2018 Tdap) EYE EXAM 05/18/2020 05/18/2019 HgA1C 11/20/2020 05/23/2020, 05/09/2019 LDL-C 06/02/2021 06/02/2020, 05/23/2020, 05/09/2019 Depression Screening 06/27/2021 06/27/2020 CREATININE (SERUM) 09/01/2021 09/01/2020, 06/03/2020, 06/02/2020, Additional history exists INFLUENZA VACCINE Completed 05/28/2020 PNEUMOCOCCAL 0-64 YEARS COMBINED Completed 05/28/2020 SERIES documented as of this encounter Procedures Procedure Name Priority Date/Time Associated Comments Diagnosis POCT GLUCOSE Routine 09/03/2020 11:27 Results for this (AUTOMATED) AM LEAD RECOVERER procedure are i n the results section. POCT GLUCOSE Routine 09/03/2020 7:35 Results for this (AUTOMATED) AM LEAD RECOVERER procedure are i n the results section. CBC WITH DIFF Routine 09/03/2020 3:55 Results fo r this AM LEAD RECOVERER procedure are i n the results section. BASIC METABOLIC PANEL Routine 09/03/2020 3:55 Re sults for this (NA, K, CL, CO2, AM LEAD RECOVERER procedure a re in GLUCOSE, BUN, the results CREATININE, CA) section. TROPONIN I Routine 09/03/2020 3:55 Results for this AM LEAD RECOVERER procedure are i n the results section. POCT GLUCOSE Routine 09/02/2020 7:44 Results for this (AUTOMATED) PM LEAD RECOVERER procedure are i n the results section. POCT GLUCOSE Routine 09/02/2020 11:07 Results for this (AUTOMATED) AM LEAD RECOVERER procedure are i n the results section. POCT GLUCOSE Routine 09/02/2020 7:56 Results for this (AUTOMATED) AM LEAD RECOVERER procedure are i n the results section. TROPONIN I Routine 09/02/2020 4:15 Results for this AM LEAD RECOVERER procedure are i n the results section. TROPONIN I Routine 09/01/2020 11:18 Results for this PM LEAD RECOVERER procedure are i n the results section. POCT GLUCOSE Routine 09/01/2020 8:53 Results for this (AUTOMATED) PM LEAD RECOVERER procedure are i n the results section. CT CHEST PULMONARY STAT 09/01/2020 7:21 Chest pain, Resul ts for this ANGIOGRAM PM LEAD RECOVERER unspecified type procedure a re in the results section. LAB ONLY COVID Routine 09/01/2020 5:10 Chest pain, Results f or this INTERPRETATION PM LEAD RECOVERER unspecified type procedure are in the results section. COVID-19 (ID NOW RAPID STAT 09/01/2020 5:10 Chest pain, R esults for this TESTING) PM LEAD RECOVERER unspecified type procedure a re in the results section. URINALYSIS STAT 09/01/2020 5:09 Chest pain, Results for this PM LEAD RECOVERER unspecified type procedure a re in the results section. XR CHEST 1 VW STAT 09/01/2020 4:55 Chest pain, Results fo r this PM LEAD RECOVERER unspecified type procedure a re in the results section. N-TERMINAL PRO-BNP STAT 09/01/2020 4:54 Chest pain, Resul ts for this PM LEAD RECOVERER unspecified type procedure a re in the results section. D-DIMER STAT Add-On 09/01/2020 4:54 Chest pain, Results for this PM LEAD RECOVERER unspecified type procedure a re in the results section. PROTHROMBIN TIME / INR STAT 09/01/2020 4:54 Chest pain, R esults for this PM LEAD RECOVERER unspecified type procedure a re in the results section. CBC WITH DIFF STAT 09/01/2020 4:54 Chest pain, Results fo r this PM LEAD RECOVERER unspecified type procedure a re in the results section. BASIC METABOLIC PANEL STAT 09/01/2020 4:54 Chest pain, Re sults for this (NA, K, CL, CO2, PM LEAD RECOVERER unspecified type procedu re are in GLUCOSE, BUN, the results CREATININE, CA) section. HEPATIC FUNCTION PANEL STAT 09/01/2020 4:54 Chest pain, R esults for this (36033) PM LEAD RECOVERER unspecified type procedure a re in (ALB,T.PRO,BILI the results T,BU/BC,ALT,AST,ALK section. PHOS) TROPONIN I STAT 09/01/2020 4:54 Chest pain, Results for this PM LEAD RECOVERER unspecified type procedure a re in the results section. HB ECG ROUTINE & STAT 09/01/2020 4:49 Chest pain, RHYTHM STRIP PM LEAD RECOVERER unspecified type NOTICE OF PRIVACY Routine 09/01/2020 4:35 PRACTICES PM LEAD RECOVERER CONSENT/REFUSAL FOR Routine 09/01/2020 4:34 DIAGNOSIS AND PM LEAD RECOVERER TREATMENT documented in this encounter Results POCT GLUCOSE (AUTOMATED) (09/03/2020 11:27 AM LEAD RECOVERER) Pathologist Sig nature POCT GLU 212 (H) 70 - 110 mg/dL [facility] Specimen Blood Performing Organization Address City/State/Zipcode Phone Number [facility] CLIA: [id number] [place] [address] POCT GLUCOSE (AUTOMATED) (09/03/2020 7:35 AM LEAD RECOVERER) [facility] POCT GLU 221 (H) 70 - 110 mg/dL [facility] Specimen Blood Performing Organization Address [facility] Phone Number [facility] CLIA: [id number] [place] [address] LABORATORY [address] [facility] TROPONIN I (09/03/2020 3:55 AM LEAD RECOVERER) [facility] TROPONIN I <0.012 <=0.034 ng/mL [facility] Specimen Blood - VENOUS Narrative Performed At Equal or Less than 0.034 ng/ml---Normal [facility] Note: Cardiac troponin begins to [...] patient's use of biotin. Performing Organization Address [facility] Phone Number [facility] CLIA: [id number] [place] [address] LABORATORY [address] [facility] Basic Metabolic Panel (NA, K, CL, CO2, GLUCOSE, BUN, CREATININE, CA) (09/03/2020 3:55 AM LEAD RECOVERER) [facility] NA 135 135 - 145 [facility] mmol/L HOSPITAL LABORATORY K 4.6 3.5 - 5.0 [facility] mmol/L HOSPITAL LAB[facility]ATORY CL 101 98 - 108 mmol/L [facility] CO2 TOTAL 27 23 - 31 mmol/L [facility] AGAP 7 2 - 16 [facility] BUN 26 (H) 7 - 23 mg/dL [facility] GLUCOSE 185 (H) 70 - 110 mg/dL [facility] CREATININE 0.77 0.60 - 1.25 [facility] mg/dL [facility] CALCIUM 9.0 8.6 - 10.6 [facility] mg/dL [facility] eGFR Calculation 111.3 mL/min/1.73m2 [facility] ([facility] LABORATORY [place] Citizen) eGFR Calculation 134.9 mL/min/1.73m2 [facility] () [facility] Specimen Blood - VENOUS Narrative Performed At [facility] of Glomerular Filtration Rate (GFR) [facility] and Staging of Kidney Disease* [...] tests). Performing Organization Address City/State/Zipcode Phone Number [facility] CLIA: [id number] [place] [address] CBC with Differential (09/03/2020 3:55 AM LEAD RECOVERER) Pathologist [facility] nature WBC 6.98 4.20 - 10.70 [facility] 10*3/L [facility] RBC 4.60 4.26 - 5.52 [facility] 10*6/L [facility] HGB 14.6 12.2 - 16.4 g/dL [facility] HCT 43.0 38.4 - 49.3 % [facility] MCV 93.5 81.7 - 95.6 fL [facility] MCH 31.7 26.1 - 32.7 pg [facility] MCHC 34.0 31.2 - 35.0 g/dL [facility] RDW-SD 42.2 38.5 - 51.6 fL [facility] RDW-CV 12.2 12.1 - 15.4 % [facility] PLT 244 150 - 328 [facility] 10*3/L HOSPITAL LABORATORY MPV 10.4 9.8 - 13.0 fL [facility] NRBC/100 WBC 0.0 0.0 - 10.0 /100 [facility] WBCs [facility] NRBC x10^3 <0.01 10*3/L [facility] GRAN MAT (NEUT) % 53.5 % [facility] IMM GRAN % 0.30 % [facility] LYMPH % 32.7 % [facility] MONO % 11.0 % [facility] EOS % 2.1 % [facility] BASO % 0.4 % [facility] GRAN MAT x10^3(ANC) 3.73 1.99 - 6.95 [facility] 10*3/uL HOSPITAL LABORATORY IMM GRAN x10^3 <0.03 0.00 - 0.06 [facility] 10*3/uL HOSPITAL LABORATORY LYMPH x10^3 2.28 1.09 - 3.23 [facility] 10*3/uL HOSPITAL LAB[facility]ATORY MONO x10^3 0.77 0.36 - 1.02 [facility] 10*3/uL HOSPITAL LABORATORY EOS x10^3 0.15 0.06 - 0.53 [facility] 10*3/uL HOSPITAL LABORATORY BASO x10^3 0.03 0.01 - 0.09 [facility] 10*3/uL [facility] Specimen Blood - VENOUS Performing Organization Address City/[facility]/Zipcode Phone Number [facility] CLIA: [id number] [place] [address] [place] [address] POCT GLUCOSE (AUTOMATED) (09/02/2020 7:44 PM LEAD RECOVERER) [facility] POCT GLU 209 (H) 70 - 110 mg/dL [facility] Specimen Blood Performing Organization Address City/[facility] Phone Number [facility] CLIA: [id number] [place] [address] POCT GLUCOSE (AUTOMATED) (09/02/2020 11:07 AM LEAD RECOVERER) Pathologist Sig [facility] POCT GLU 161 (H) 70 - 110 mg/dL [facility] Specimen Blood Performing Organization Address [facility] Phone Number [facility] CLIA: [id number] [place] [address] POCT GLUCOSE (AUTOMATED) (09/02/2020 7:56 AM LEAD RECOVERER) Pathologist Sig [facility] POCT GLU 167 (H) 70 - 110 mg/dL [facility] Specimen Blood Performing Organization Address [facility] Phone Number [facility] CLIA: [id number] [place] [address] TROPONIN I (09/02/2020 4:15 AM LEAD RECOVERER) [facility] TROPONIN I <0.012 <=0.034 ng/mL [facility] Specimen Blood - LINE, VENOUS Narrative Performed At Equal or Less than 0.034 ng/ml---Normal [facility] Note: Cardiac troponin begins to [...] patient's use of biotin. Performing Organization Address [facility] Phone Number [facility] CLIA: [id number] [place] [address] TROPONIN I (09/01/2020 11:18 PM LEAD RECOVERER) [facility] TROPONIN I <0.012 <=0.034 ng/mL [facility] Specimen Blood - VENOUS Narrative Performed At Equal or Less than 0.034 ng/ml---Normal [facility] Note: Cardiac troponin begins to [...] patient's use of biotin. Performing Organization Address City/[facility] Phone Number [facility] CLIA: [id number] [place] [address] LABORATORY [address] [facility] POCT GLUCOSE (AUTOMATED) (09/01/2020 8:53 PM LEAD RECOVERER) [facility] nature POCT GLU 143 (H) 70 - 110 mg/dL [facility] Specimen Blood Performing Organization Address City/[facility] Phone Number [facility] CLIA: [id number] [place] [address] LABORATORY [address] [facility] [address] CHEST PULMONARY ANGIOGRAM (09/01/2020 7:21 PM LEAD RECOVERER) Specimen Impressions Performed At PACS/VR/DOSE No acute pulmonary embolism. Suboptimal enhancement of pulmonary arteries. Subtle bilateral tree-in-bud opacities m ay represent a mild infectious/inflammatory etiology. Unchanged 6 mm pulmonary nodule in the lingula. Recomm end follow-up chest CT no later than 12 months. Multivessel coronary arterial calcificat ion/stents. Preliminary Report Dictated by Resident: John Echols MD., have reviewed this study and agree with the above report. Narrative Performed At This result has an attachment that is no t available. PROCEDURE: CT ANGIO CHEST WITH CONTRAST - PE PROTOCOL PACS/VR/DOSE CLINICAL INDICATION: PE suspected, high pretest prob COMPARISON: [id number] TECHNIQUE: Helical CT was performed and reconstructe d at 1.25 mm slice thickness from lung base to apices after the administr ation of 120 mL Omnipaque-350 intravenous contrast, without complicati on. Display field of view: 40 cm. FINDINGS: PULMONARY ARTERIES: Enhancement is suboptimal. No acute pulmonary embolism is seen to proximal pulmonary arteries. Pulmonary trunk is normal in diame ter. CHEST: Lower neck/thyroid: Normal thyroid gland. Lungs: Unchanged 6 mm solid pulmonary nodule with lobu lated margins in the lingula. Bilateral scattered tree-in-bud opacities, fo r example in the right upper lobe on coronal image #103. No parenchymal consolidations are seen. Pleura: No pleural thickening, pleural effusion or pne umothorax. Central airway: The central airways are patent. Thoracic aorta and great vessels: Normal in diameter. Heart and pericardium: Dense multivessel coronary ema rial calcification/stents.. Unremarkable cardiac morphology and pericardium. Lymph nodes: No enlarged thoracic lymph nodes. Mediastinum: Unremarkable. Thoracic spine and chest wall: No suspicious or aggres sive osseous lesion. Other Lines/Tubes/Devices/Hardware: None Visualized upper abdomen: Unremarkable. Procedure Note [facility], Radiant Results Inft User - 2020 8:21 PM LEAD RECOVERER PROCEDURE: CT ANGIO CHEST WITH CONTRAST - PE PROTOCOL CLINICAL INDICATION: PE suspected, high pretest prob COMPARISON: 929 2 TECHNIQUE: Helical CT was performed and reconstructed at 1.25 mm slice thickness from lung base to apices after the administration of 120 mL Omnipaque-350 intravenous contrast, with out complication. Display field of view: 40 cm. FINDINGS: PULMONARY ARTERIES: Enhancement is suboptimal. No acute pulm onary embolism is seen to proximal pulmonary arteries. Pulmonary trunk is n ormal in diameter. CHEST: Lower neck/thyroid: Normal thyroid gland . Lungs: Unchanged 6 mm solid pulmonary no dule with lobulated margins in the lingula. Bilateral scattered tree-in-bud opacities, for example in the right upper lobe on coronal image #103. No parenchymal consolidations are seen. Pleura: No pleural thickening, pleural e ffusion or pneumothorax. Central airway: The central airways are patent. Thoracic aorta and great vessels: Normal in diameter. Heart and pericardium: Dense multivessel coronary arterial calcification/stents.. Unremarkable card iac morphology and pericardium. Lymph nodes: No enlarged thoracic lymph nodes. Mediastinum: Unremarkable. Thoracic spine and chest wall: No suspic ious or aggressive osseous lesion. Other Lines/Tubes/Devices/Hardware: None Visualized upper abdomen: Unremarkable. IMPRESSION No acute pulmonary embolism. Suboptimal enhancement of pulmonary arteries. Subtle bilateral tree-in-bud opacities m ay represent a mild infectious/inflammatory etiology. Unchanged 6 mm pulmonary nodule in the l ingula. Recommend follow-up chest CT no later than 12 months. Multivessel coronary arterial calcificat ion/stents. Preliminary Report Dictated by Resident: Tramaine Vargas I, John Prasad MD., have r eviewed this study and agree with the above report. Performing Organization Address City/State/Zipcode Phone Number PACS/VR/DOSE LAB ONLY COVID INTERPRETATION (09/01/2020 5:10 PM LEAD RECOVERER) COVID DMT Interpretation/Recommendations: [facility] Interpretation SERVICES Molecular NAAT Tests for Active Infection with the ZAIN S-CoV-2 Virus: This patient has tested nega tive on multiple occasions for the SARS-CoV-2 virus that causes COVID-19 illness. This most likely indicates that the patient does not have an active infection with the SARS- CoV-2 virus, especially if t hese tests coincide with the patient's current presentation. However, infection is not completely ruled out as the false negative rate for molecular NAAT testing using a naso pharyngeal sample can be up to 30%, mostly dependent on the timing of sample collection in relation to illness onset and any deficiencies in sampling techniques. If the patient continues to have persist ent or worsening symptoms co ncerning for COVID-19 illness, a repeat NAAT test (PCR, Rapid ID Now, etc.) should be performed, at which time the SARS-CoV-2 virus - if present - may have reached a detectab le viral load (usually peaking by the end of the first week of symptoms). Tests for IgM and/or IgG Antibodies to SARS-CoV-2 Viru s: Testing for IgM and IgG anti bodies 1-3 weeks after illness onset will indicate whether the patient has produced antibodies to the virus. At this time, it is not known if the production of antibodies - s pecifically IgG antibodies - indicates whether the patient is immune to future infections with the SARS-CoV-2 virus. Interpretation Result Comments: These interpretation comment s are based upon all COVID-19 testing the patient has had at [facility], including molecular NAAT testing (more commonly known as PCR testing and Rapid ID Now testing) and antibody testing. It does not take i nto account any testing that a patient has had outside of the [facility] medical record. COVID Results SARS-CoV-2 Rapid ID NOW (no units) [facility] LABORATORY Date Value SERVICES 09/01/2020 Not Detected 06/02/2020 Not Detected 05/23/2020 Not Detected Specimen Swab - NASOPHARYNGEAL SWAB Performing Organization Address City/State/Zipcode Phone Number [facility] LABORATORY SERVICES CLIA: [id number] [place] [address] [place] [address] COVID-19 (ID NOW RAPID TESTING) (09/01/2020 5:10 PM LEAD RECOVERER) Pathologist [facility] SARS-CoV-2 Rapid ID Not Detected Not Detected [facility]OR[facility] Specimen Swab - NASOPHARYNGEAL SWAB Narrative Performed At [place] NOW COVID-19 Assay is an isothermal nucleic [facility] LABORATORY acid amplification test intended for the qualitative detection of nucleic acid from SARS-CoV-2 viral RNA in nasopharyngeal (YARDAGE CONTROL CLERK) specimens. It is used under Emergency Use [...] testing if clinically indicated. Performing Organization Address [facility] Phone Number [facility] CLIA: [id number] [place] [address] Urinalysis (09/01/2020 5:09 PM LEAD RECOVERER) Pathologist Sig nature APPEARANCE Clear Clear [facility] LABORATORY COLOR Yellow Yellow [facility] LABORATORY PH 7.0 4.8 - 8.0 [facility] LABORATORY SP GRAVITY 1.011 1.003 - 1.030 [facility] LABORATORY GLU U QUAL 500 mg/dL (A) Normal [facility] LABORATORY BLOOD Negative Negative [facility] LABORATORY KETONES Negative Negative [facility] PROTEIN Negative Negative [facility] UROBILIN Normal Normal [facility] LAB[facility] BILIRUBIN Negative Negative [facility] NITRITE Negative Negative [facility] LABORATORY LEUK MARCI Negative Negative [facility] LABORATORY RBC/HPF <1 0 - 3 HPF [facility] LABORATORY WBC/HPF <1 0 - 5 HPF [facility] LABORATORY BACTERIA Negative Negative [facility] LABORATORY Specimen Urine - URINE, CLEAN CATCH Performing Organization Address [facility] Phone Number [facility] CLIA: [id number] [place] [address] Chest 1 View (09/01/2020 4:55 PM LEAD RECOVERER) Specimen Impressions Performed At Impression: No acute cardiopulmonary abnormality. PACS /VR/DOSE Narrative Performed At This result has an attachment that is no t available. Exam: XR CHEST 1 VW 09/01/2020 4:50 PM PACS/VR/DOSE Clinical History: CP Comparison: Radiograph of 06/02/2020 Technique: frontal view of the chest Findings: The lungs are clear. No pleural effusion. No pneumothorax. The cardiac size is normal. No acute osseous abnormality. Procedure Note [facility], Radiant Results Inft User - 2020 5:01 PM LEAD RECOVERER Exam: XR CHEST 1 VW 09/01/2020 4:50 PM Clinical History: CP Comparison: Radiograph of 06/02/2020 Technique: frontal view of the chest Findings: The lungs are clear. No pleural effusion. No pneumothorax. The cardiac size is normal. No acute osseous abnormality. IMPRESSION Impression: No acute cardiopulmonary abn ormality. Performing Organization Address [facility] Phone Number PACS/VR/DOSE D-DIMER (09/01/2020 4:54 PM LEAD RECOVERER) Pathologist Sig nature D-DIMER <0.27 <0.41 g/mL (FEU) [facility] LABOR[facility] Specimen Blood - VENOUS Narrative Performed At This test may be used in conjunction with a [facility] clinical pretest probability (PTP) assessment model to exclude venous thromboembolism (VTE) in patients suspected of deep venous thrombosis (DVT) and pulmonary embolism (PE) A D-Dimer value less than 0.50 g/ml (FEU) has a negative predicative value of 96 to 100% (95% CI)and 97 to 100% (95% CI) as an aid in the diagnosis of deep vein thrombosis (DVT) and pulmonary embolism when there is low or moderate pretest probability of PE or DVT. D-Dimer values are expressed in initial fibrinogen equivalent units (FEU)" The assay results should be used with other information, including the clinical context, in forming a diagnosis. Performing Organization Address [facility] Phone Number [facility] CLIA: [id number] [place] [address] N-TERMINAL PRO-BNP (09/01/2020 4:54 PM LEAD RECOVERER) [facility] NT-proBNP 191 (H) <=125 pg/mL [facility] LABORATORY Specimen Blood - VENOUS Narrative Performed At [facility] has been reported to cause a negative [facility] LABORATORY bias, interpret results relative to patient's use of biotin. Performing Organization Address [facility] Phone Number [facility] CLIA: [id number] [place] [address] Prothrombin Time (PT) / INR (09/01/2020 4:54 PM LEAD RECOVERER) PROTIME PATIENT 12.5 12.0 - 14.7 [facility] LABORATORY INR 1.0Comment: Normal [facility] INR <1.1; Warfarin [facility] Therapeutic range LABORATORY 2.0 to 3.0 or 2.5 to 3.5, depending upon the indications. Specimen Blood - VENOUS Performing Organization Address [facility] Phone Number [facility] CLIA: [id number] [place] [address] [place] [address] Drive Troponin I (09/01/2020 4:54 PM LEAD RECOVERER) Pathologist Sig [facility] TROPONIN I <0.012 <=0.034 ng/mL [facility] LABORATORY Specimen Blood - VENOUS Narrative Performed At Equal or Less than 0.034 ng/ml---Normal [facility] LABORATORY Note: Cardiac troponin begins to [...] patient's use of biotin. Performing Organization Address City/[facility] Phone Number [facility] CLIA: [id number] [place] [address] Hepatic Function Panel (ALB, T.PRO, BILI T, BU/BC, ALT, AST, ALK PHOS) (09/01/2020 4:54 PM LEAD RECOVERER) Pathologist Sig nature TOTAL BILI 0.6 0.1 - 1.1 mg/dL [facility] LABORATORY BILI UNCON 0.5 0.1 - 1.1 mg/dL [facility] LABORATORY BILI CONJ 0.0 0.0 - 0.3 mg/dL [facility] LABORATORY T PROTEIN 7.2 6.3 - 8.2 g/dL [facility] LABORATORY ALBUMIN 4.5 3.5 - 5.0 g/dL [facility] LABORATORY ALK PHOS 63 34 - 122 U/L [facility] ALTv 38 5 - 50 U/L [facility] LABORATORY AST(SGOT) 32 13 - 40 U/L [facility] LABORATORY Specimen Blood - VENOUS Performing Organization Address City/State/Zipcode Phone Number [facility] CLIA: [id number] [place] [address] Basic Metabolic Panel (NA, K, CL, CO2, GLUCOSE, BUN, CREATININE, CA) (09/01/2020 4:54 PM LEAD RECOVERER) [facility] NA 134 (L) 135 - 145 [facility] mmol/L [facility] K 4.5 3.5 - 5.0 [facility] mmol/L [facility] CL 97 (L) 98 - 108 mmol/L [facility] LABORATORY CO2 TOTAL 28 23 - 31 mmol/L [facility] LABORATORY AGAP 9 2 - 16 [facility] LAB[facility]ATORY BUN 18 7 - 23 mg/dL [facility] LABORATORY GLUCOSE 198 (H) 70 - 110 mg/dL [facility] LABORATORY CREATININE 0.84 0.60 - 1.25 [facility] mg/dL [facility] CALCIUM 9.1 8.6 - 10.6 [facility] mg/dL [facility] LABORATORY eGFR Calculation 100.7 mL/min/1.73m2 [facility] ([facility] LABORATORY [place] Citizen) eGFR Calculation 122.0 mL/min/1.73m2 [facility] () [facility] LAB[facility] Specimen Blood - VENOUS Narrative Performed At Association of Glomerular Filtration Rate (GFR) [facility] LAB[facility] and Staging of Kidney Disease* [...] tests). Performing Organization Address City/State/Zipcode Phone Number [facility] CLIA: [id number] [place] [address] CBC with Differential (09/01/2020 4:54 PM LEAD RECOVERER) Pathologist Sig nature WBC 10.85 (H) 4.20 - 10.70 [facility] 10*3/L [facility] LABORAT[facility] RBC 4.82 4.26 - 5.52 [facility] 10*6/L [facility] LAB[facility] HGB 15.0 12.2 - 16.4 [facility] g/dL [facility] HCT 44.9 38.4 - 49.3 % [facility] LABORAT[facility] MCV 93.2 81.7 - 95.6 fL [facility] LABORATORY MCH 31.1 26.1 - 32.7 pg [facility] LABORATORY MCHC 33.4 31.2 - 35.0 [facility] g/dL [facility] LABOR[facility] RDW-SD 41.4 38.5 - 51.6 fL [facility] LABORATORY RDW-CV 12.0 (L) 12.1 - 15.4 % [facility] LABORATORY PLT 269 150 - 328 [facility] 10*3/L [facility] LAB[facility] MPV 10.1 9.8 - 13.0 fL [facility] LABORAT[facility] NRBC/100 WBC 0.0 0.0 - 10.0 /100 [facility] WBCs [facility] LAB[facility] NRBC x10^3 <0.01 10*3/L [facility] LABORATORY GRAN MAT (NEUT) % 62.7 % [facility] LABORATORY IMM GRAN % 0.50 % [facility] LABORATORY LYMPH % 23.5 % [facility] LABORATORY MONO % 11.1 % [facility] LABORATORY EOS % 1.8 % [facility] LABORATORY BASO % 0.4 % [facility] LABORATORY GRAN MAT x10^3(ANC) 6.82 1.99 - 6.95 [facility] 103/uL [facility] LABORATORY IMM GRAN x10^3 0.05 0.00 - 0.[address]/uL [facility] LABORATORY LYMPH x10^3 2.55 1.09 - 3.[address] LABORATORY MONO x10^3 1.20 (H) 0.36 - 1.[address]/[facility] LABORATORY EOS x10^3 0.19 0.06 - 0.[address] LABORATORY BASO x10^3 0.04 0.01 - 0.[address] LABORATORY Specimen Blood - VENOUS Performing Organization Address City/State/Zipcode Phone Number [facility] CLIA: [id number] [place] [address] documented in this encounter Visit Diagnoses Diagnosis Chest pain, unspecified type Coronary artery disease involving [place] coronary artery of [place] heart with angina pectoris Essential hypertension Unspecified essential hypertension Type 2 diabetes mellitus without complic ation, without long-term current use of insulin Obesity (BMI 30-39.9) Obesity, unspecified Family history of early CAD Family history of ischemic heart disease Hx pulmonary embolism Personal history of pulmonary embolism documented in this encounter Administered Medications Medication Order MAR Action Action Date Dose Rate Site aspirin chewable tablet 81 mg Given 09/03/2020 8:07 AM LEAD RECOVERER 81 mg 81 mg, Oral, DAILY, First dose on 09/02/20 at 0900, Until Discontinued, Routine Given 09/02/2020 8:16 AM LEAD RECOVERER 81 mg atorvastatin (LIPITOR) tablet 80 mg Given 09/03/2020 8:07 AM LEAD RECOVERER 80 mg 80 mg, Oral, DAILY, First dose on 09/02/20 at 0900, Until Discontinued, Routine Given 09/02/2020 8:16 AM LEAD RECOVERER 80 mg benzocaine-menthoL (CEPACOL SORE THROAT (APPLE-MEN)) lozenge 1 Lozenge 1 Lozenge, Oral, Q4HPRN, Starting 09/02/20 at 0201, Until Discontinued, Routine, Sore throat clopidogreL (PLAVIX) tablet 75 mg Given 09/03/2020 8:07 AM LEAD RECOVERER 75 mg 75 mg, Oral, DAILY, First dose on 09/02/20 at 0900, Until Discontinued, Routine Given 09/02/2020 8:17 AM LEAD RECOVERER 75 mg DULoxetine (CYMBALTA) capsule 30 mg Given 09/03/2020 8:07 AM LEAD RECOVERER 30 mg 30 mg, Oral, DAILY, First dose on 09/02/20 at 0900, Until Discontinued, Routine Given 09/02/2020 8:17 AM LEAD RECOVERER 30 mg enoxaparin (LOVENOX) injection 40 mg Given 09/03/2020 8:06 AM LEAD RECOVERER 40 mg Abdo men-SC 40 mg, Subcutaneous, DAILY, First dose on 09/02/20 at 1700, Until Discontinued, Routine Given 09/02/2020 4:53 PM LEAD RECOVERER 40 mg Abdo men-SC fenofibrate micronized (LOFIBRA) capsule 67 Given 09/03/2020 8:07 AM LEAD RECOVERER 67 mg mg 67 mg, Oral, DAILY, First dose on 09/02/20 at 0900, Until Discontinued, Routine Given 09/02/2020 8:16 AM LEAD RECOVERER 67 mg fluticasone propionate 50 mcg/actuation Given 09/03/2020 8:06 A M LEAD RECOVERER 1 [place] nasal spray 1 [place] 1 [place], Nasal, DAILY, First dose on 09/02/20 at 0900, Until Discontinued, Routine Given 09/02/2020 8:17 AM LEAD RECOVERER 1 [place] gabapentin (NEURONTIN) capsule 300 mg Given 09/03/2020 8:07 AM LEAD RECOVERER 300 mg 300 mg, Oral, BID, First dose on 09/02/20 at 0800, Until Discontinued, Routine Given 09/02/2020 8:19 PM LEAD RECOVERER 300 mg Given 09/02/2020 8:16 AM LEAD RECOVERER 300 mg HYDROcodone-acetaminophen (NORCO) 10-325 Given 09/03/2020 10 :47 AM LEAD RECOVERER 1 tablet mg tablet 1 tablet 1 tablet, Oral, Q6HPRN, Starting Fri09/01/20 at 2209, Until Discontinued, Routine, Pain (scale 4-6) Given 09/02/2020 6:14 PM LEAD RECOVERER 1 tablet Given 09/02/2020 5:30 AM LEAD RECOVERER 1 tablet isosorbide mononitrate (IMDUR) 24 hr tablet Given 08/25 8:07 AM LEAD RECOVERER 120 mg 120 mg 120 mg, Oral, DAILY, First dose on 09/02/20 at 0900, Until Discontinued, Routine Given 09/02/2020 8:17 AM LEAD RECOVERER 120 mg losartan (COZAAR) tablet 25 mg Given 09/03/2020 8:06 AM LEAD RECOVERER 25 mg 25 mg, Oral, DAILY, First dose on Fri09/03/20 at 0900, Until Discontinued, Routine methocarbamoL (ROBAXIN) tablet 500 mg Given 09/03/2020 8:06 AM LEAD RECOVERER 500 mg 500 mg, Oral, BID, First dose on 09/02/20 at 0800, Until Discontinued, Routine Given 09/02/2020 8:19 PM LEAD RECOVERER 500 mg Given 09/02/2020 8:16 AM LEAD RECOVERER 500 mg metoprolol succinate XL (TOPROL XL) tablet Given 09/03/2020 8:07 AM LEAD RECOVERER 100 mg 100 mg 100 mg, Oral, BID, First dose on 09/02/20 at 1045, Until Discontinued, Routine Given 09/02/2020 8:19 PM LEAD RECOVERER 100 mg Given 09/02/2020 12:18 PM LEAD RECOVERER 100 mg morpHINE injection 4 mg Given 09/03/2020 12:31 PM LEAD RECOVERER 4 mg 4 mg, Slow IV Push, Q4HPRN, Starting Fri09/01/20 at 2209, Until Discontinued, Routine, Pain (scale 7-10) Given 09/03/2020 8:11 AM LEAD RECOVERER 4 mg Given 09/03/2020 4:05 AM LEAD RECOVERER 4 mg ondansetron (ZOFRAN (PF)) injection 4 mg Given 09/02/2020 3:34 PM LEAD RECOVERER 4 mg 4 mg, Slow IV Push, Q6HPRN, Starting Fri09/02/20 at 0230, Until Discontinued, Routine, Nausea and Vomiting (N/V) Given 09/02/2020 2:41 AM LEAD RECOVERER 4 mg Sliding Scale Insulin-Regular + Given 09/03/2020 11:42 AM LEAD RECOVERER 2 Units Abdomen-SC Fsbg Testing Subcutaneous, AC, First dose on 09/02/20 at 0730, Until Discontinued, Routine Given 09/03/2020 8:12 AM LEAD RECOVERER 4 Units Abdo men-SC Given 09/02/2020 4:01 PM LEAD RECOVERER 2 Units Abdo men-SC Medication Order MAR Action Action Date Dose Rate Site ALPRAZolam (XANAX) tablet 0.5 mg Given 09/01/2020 10:39 PM LEAD RECOVERER 0.5 mg 0.5 mg, Oral, ONCE, 1 dose, Fri09/01/20 at 2315, Routine ALPRAZolam (XANAX) tablet 1 mg Given 09/02/2020 8:19 PM LEAD RECOVERER 1 mg 1 mg, Oral, ONCE, 1 dose, 09/02/20 at 2100, Routine azithromycin (ZITHROMAX) 500 mg in NaCl 0.9% Given 03/2021 10:39 PM LEAD RECOVERER 500 mg (NS) 250 mL VIAL-MATE IV piggyback 500 mg, IV Piggyback, Q24H ABX, First dose on Fri09/01/20 at 2330, Until Discontinued, 250 mL, Reason for Anti-Infective: Empiric Therapy for Suspected Infection, Empiric Therapy Site: Respiratory, Duration of therapy: 7 days iohexol (OMNIPAQUE 350 BULK-100 mL) Given 09/01/2020 7:15 PM CS T 100 mL injection 100 mL 100 mL, Intravenous, ONCE, 1 dose, Fri09/01/20 at 1930, Routine KCL (KLOR-CON M20) tablet 40 mEq Given 09/02/2020 2:35 AM LEAD RECOVERER 40 mEq 40 mEq, Oral, ONCE, 1 dose, Fri09/02/20 at 0315, Routine lisinopriL (PRINIVIL,ZESTRIL) tablet 2.5 mg Given 09/02/2020 8:16 AM LEAD RECOVERER 2.5 mg 2.5 mg, Oral, DAILY, First dose on Fri09/02/20 at 0900, Until Discontinued, Routine morpHINE injection 4 mg Given 09/01/2020 8:06 PM LEAD RECOVERER 4 mg 4 mg, Slow IV Push, ONCE, 1 dose, Fri09/01/20 at 2115, STAT morpHINE injection 6 mg Given 09/01/2020 5:16 PM LEAD RECOVERER 6 mg 6 mg, Slow IV Push, ONCE, 1 dose, Fri09/01/20 at 1815, STAT ondansetron (ZOFRAN (PF)) injection 4 mg Given 09/01/2020 5:16 PM LEAD RECOVERER 4 mg 4 mg, Slow IV Push, ONCE, 1 dose, Fri09/01/20 at 1815, RADHA documented in this encounter Additional Health Concerns Infection Onset Date Last Indicated Resolved Time COVID-19 Rule Out 09/01/2020 09/01/2020 09/01/2020 6: 03 PM LEAD RECOVERER documented as of this encounter
--- OUTSIDE RECORDS SUMMARY | 2020-10-04 17:52 | XMS REPORT | Summary of Care ---
:1980 Author Organization [facility] Address [address] [place] [id number] Care Team Providers Name Role Phone Omari Thao Primary Care Provider Reason for Visit Reason Comments Notification Encounter Details Date Type Department Care Team Description 09/06/2020 Telephone [facility] Cardiology- Tessa Leslie MD Notification [address] [facility], [address] [place] [address] [place] [address] [phone] Allergies No Known Allergiesdocumented as of this encounter (statuses as of 09/06/2020) Medications Medication Sig Dispensed Refills Start Date End Date Status methocarbamol Take 500 mg by 0 S uspended (ROBAXIN) 500 mg mouth 2 (two) tablet times daily. metFORMIN 1,000 mg Take 1,000 mg 0 Suspended tablet by mouth 2 (two) times daily with meals. fluticasone propionate Use 1 [place] in 0 Suspended (FLONASE ALLERGY each nostril RELIEF) 50 daily. mcg/actuation nasal spray diclofenac 50 mg EC Take 50 mg by 0 Suspended tablet mouth daily. atorvastatin 80 mg Take 1 tablet 90 tablet 3 05/28/2020 Suspended tabletIndications: by mouth daily. Unstable angina Additional Information clopidogreL 75 mg Take 1 tablet by 30 tablet 11 05/28/2020 Suspended tabletIndications: Unstable mouth daily. angina Additional Information fenofibrate micronized 67 mg Take 1 capsule by 90 capsule 3 Suspended capsuleIndications: Unstable mouth daily. angina Additional Information isosorbide mononitrate 120 mg Take 1 tablet by 30 tablet 11 11/2019 Suspended 24 hr tabletIndications: mouth daily. Unstable angina Additional Information aspirin 81 mg chewable Take 1 tablet by 30 tablet 11 05/29/2020 Suspended tabletIndications: Unstable mouth daily. angina Additional Information DULoxetine (CYMBALTA) 30 Take 30 mg by mouth 0 Suspended mg capsule daily. metoprolol succinate XL Take 100 mg by mouth 2 0 Suspended 100 mg 24 hr tablet (two) times daily. gabapentin 300 mg Take 2 capsules by 60 capsule 0 09/03/2020 Suspended capsuleIndications: Chest mouth 2 (two) times pain, unspecified type daily. Additional Information losartan 25 mg Take 1 tablet by 30 tablet 0 09/04/2020 Suspended tabletIndications: Chest pain, mouth daily. unspecified type Additional Information nitroglycerin 0.[address] 1 tablet 30 tablet 0 05/2021 Suspended tabletIndications: Chest pain, under the tongue unspecified type every 5 (five) minutes as needed for Chest pain. Additional Information albuterol (PROAIR HFA) 90 Inhale 2 Puffs every 6 8.5 g 1 0 09/03/2020 Suspended mcg/actuation (six) hours as needed inhalerIndications: Chest pain, for Wheezing or unspecified type Shortness of Breath. Additional Information documented as of this encounter (statuses as of 09/06/2020) Active Problems Problem Noted Date Chest pain 09/01/2020 Stable angina 06/02/2020 Coronary artery disease involving [place] coronary ema ry of [place] heart 06/02/2020 with angina pectoris Unstable angina 05/24/2020 Type 2 diabetes mellitus without complication, without long-term current 05/24/2020 use of insulin Family history of early CAD 05/24/2020 Essential hypertension 05/24/2020 Coronary artery calcification 05/24/2020 Atypical chest pain 05/23/2020 Orbital cellulitis, right 05/10/2019 Overview: S/P Orbitotomy with Mass Excision OD Obesity (BMI 30-39.9) 05/10/2019 documented as of this encounter (statuses as of 09/06/2020) Immunizations Name Administration Dates Next Due Influenza [...] been in contact with No / Unsure 09/06/2020 10:20 AM UPPER LINING CEMENTER someone who was confirmed or suspected to have Coronavirus / COVID-19? documented as of this encounter Last Filed Vital Signs Not on filedocumented in this encounter Miscellaneous Notes Telephone Encounter - Rosanna Hale RN - 09/06/2020 2:26 PM CSTPatient currently in hospital. Routing to provider as FYI. elephone Encounter - Lv Johns - 09/06/2020 9:47 AM CSTPatient calling to notify Dr. Leslie that he is going to the ER. Pt states he has been having chest pain, SOB, tightness/pressure is his leftarm that goes to his back. Patient states he was advised to letDr. Leslie know. Offered a same day appointment with Dr. Leslie. Patient declined, states he is going to ER. documented in this encounter Plan of Treatment Date Type Specialty Care Team Description 12/25/2020 Office Visit Cardiology Julius Leslie M D [address] [place] [address] [phone] Health Maintenance Due Date Last Done Comments URINE MICROALBUMIN 1989 FOOT EXAM 1997 DTaP,Tdap,and Td Vaccines (1 - 1998 06/12/2018 Tdap) EYE EXAM 05/18/2020 05/18/2019 HgA1C 11/20/2020 05/23/2020, 05/09/2019 LDL-C 06/02/2021 06/02/2020, 05/23/2020, 05/09/2019 Depression Screening 06/27/2021 06/27/2020 CREATININE (SERUM) 09/03/2021 09/03/2020, 09/01/2020, 06/03/2020, Additional history exists INFLUENZA VACCINE Completed 05/28/2020 PNEUMOCOCCAL 0-64 YEARS COMBINED Completed 05/28/2020 SERIES documented as of this encounter Results Not on filedocumented in this encounter Additional Health Concerns Infection Onset Date Last Indicated Resolved Time COVID-19 Rule Out 09/06/2020 09/06/2020 09/06/2020 10: 56 AM UPPER LINING CEMENTER documented as of this encounter
--- OUTSIDE RECORDS SUMMARY | 2020-10-04 17:53 | XMS REPORT | Summary of Care ---
:1980 Author Organization [facility] - [facility] Address [address] [place] [address] Care Team Providers Name Role Phone Omari Thao Whitney Primary Care Provider Reason for Visit Reason Comments Transition Of Care Encounter Details Date Type Department Care Team Description 09/12/2020 Transition of Care [facility] Pati Banerjee [facility]- [address] [place] [id number] Allergies No Known Allergiesdocumented as of this encounter (statuses as of 09/13/2020) Medications Medication Sig Dispensed Refills Start Date End Date Status methocarbamol Take 500 mg by 0 A ctive (ROBAXIN) 500 mg mouth 2 (two) tablet times daily. metFORMIN 1,000 mg Take 1,000 mg by 0 Active tablet mouth 2 (two) times daily with meals. fluticasone propionate Use 1 [place] in 0 Active (FLONASE ALLERGY each nostril [...] 24 hr mouth daily. tabletIndications: Unstable angina aspirin 81 mg chewable Take 1 tablet by 30 tablet 11 05/29/2020 Active tabletIndications: mouth daily. Unstable angina DULoxetine (CYMBALTA) Take 30 mg by 0 Active 30 mg capsule mouth daily. gabapentin 300 mg Take 2 capsules 60 capsule 0 09/03/2020 Active capsuleIndications: by mouth 2 (two) Chest pain, times daily. unspecified type nitroglycerin 0.[address] 1 tablet 30 tablet 0 09/03/2020 Active sublingual under the tongue tabletIndications: every 5 (five) Chest pain, minutes as needed unspecified type for Chest pain. albuterol (PROAIR HFA) Inhale 2 Puffs 8.5 g 1 09/03/2020 Active 90 mcg/actuation every 6 (six) inhalerIndications: hours as needed Chest pain, for Wheezing or unspecified type Shortness of Breath. amLODIPine 5 mg Take 1 tablet by 30 tablet 2 09/10/2020 Active tabletIndications: mouth daily. Unstable angina lisinopriL 5 mg Take 1 tablet by 30 tablet 2 09/10/2020 Active tabletIndications: mouth daily. Unstable angina metoprolol tartrate Take 1 tablet by 60 tablet 2 09/09/2020 Active 100 mg mouth every 12 tabletIndications: (twelve) hours. Unstable angina pantoprazole 40 mg EC Take 1 tablet by 30 tablet 2 09/10/2020 Active tabletIndications: mouth daily. Unstable angina ranolazine 500 mg 12 Take 1 tablet by 60 tablet 2 09/09/2020 Active hr tabletIndications: mouth every 12 Unstable angina (twelve) hours. documented as of this encounter (statuses as of 09/13/2020) Active Problems Problem Noted Date Chest pain 09/01/2020 Stable angina 06/02/2020 Coronary artery disease involving [place] coronary ema ry of [place] heart 06/02/2020 with angina pectoris Unstable angina 05/24/2020 Type 2 diabetes mellitus without complication, without long-term current 05/24/2020 use of insulin Family history of early CAD 05/24/2020 Essential hypertension 05/24/2020 Coronary artery calcification 05/24/2020 Atypical chest pain 05/23/2020 Orbital cellulitis, right 05/10/2019 Overview: S/P Orbitotomy with Mass Excision OD Obesity (BMI 30-39.9) 05/10/2019 documented as of this encounter (statuses as of 09/13/2020) Immunizations Name Administration Dates Next Due Influenza [...] with No / Unsure 09/06/2020 10:20 AM SEAFOOD SPECIALIST someone who was confirmed or suspected to have Coronavirus / COVID-19? documented as of this encounter Last Filed Vital Signs Not on filedocumented in this encounter Miscellaneous Notes Telephone Encounter - Corie Banerjee - 09/13/2020 8:11 AM CST2nd call no answer. OOD SPECIALIST Telephone Encounter - Corie Banerjee - 09/12/2020 1:24 PM CST TRANSITIONAL CARE MANAGEMENT ASSESSMENT 09/12/2020 Brett Kramer [id number] Brett Kramer is a 40 year old /White male was admitted on 09/06/[address] He was discharged on 09/09/20 with discharge disposition of HR- Routine Discharge. Admitting Physician: Any Sherman Discharge Diagnosis: Unstable angina No answer. No linked episodes TCM [id number] outreach documentation: Future Appointments: Future Appointments Provider Department Dept Phone 12/25/2020 9:40 AM Julius Leslie MD [phone] documented in this encounter Plan of Treatment Date Type Specialty Care Team Description 12/25/2020 Office Visit Cardiology Julius Leslie M D [address] [address] [phone] Health Maintenance Due Date Last Done Comments URINE MICROALBUMIN 1989 FOOT EXAM 1997 DTaP,Tdap,and Td Vaccines ( - 1998 06/12/2018 Tdap) EYE EXAM 05/18/2020 05/18/2019 HgA1C 03/06/2021 09/06/2020, 05/23/2020, 05/09/2019 Depression Screening 06/27/2021 06/27/2020 LDL-C 09/07/2021 09/07/2020, 06/02/2020, 05/23/2020, Additional history exists CREATININE (SERUM) 09/09/2021 09/09/2020, 09/08/2020, 09/07/2020, Additional history exists INFLUENZA VACCINE Completed 05/28/2020 PNEUMOCOCCAL 0-64 YEARS COMBINED Completed 05/28/2020 SERIES documented as of this encounter Results Not on filedocumented in this encounter
--- OUTSIDE RECORDS SUMMARY | 2020-10-04 17:53 | XMS REPORT | Summary of Care ---
:1980 Author Organization [facility] Address [address] [place], [place] [id number] Care Team Providers Name Role Phone Omari Thao Primary Care Provider Reason for Referral (Routine) Status Reason Specialty Diagnoses / Referred By Referred To Procedures Contact Contact New Request IM-CARDIOVASCULAR Diagnoses Unstable angina Abu-Sharifeh, DISEASE Procedures Discharge Follow-Up: Specialty Service IM-CARDIOVASCULAR DISEASE; 4-6 Weeks MD Trena [address] [place] [address] (Routine) Status Reason Specialty Diagnoses / Referred By Referred To Procedures Contact Contact New Request IM-ENDOCRINOLOGY,D Diagnoses Unstable angina Abu-Sharifeh, IABETES & Procedures Discharge Follow-Up: Specialty Service IM-ENDOCRINOLOGY,DIABETES & METABOLISM; 4-6 Weeks MD Trena METABOLISM [address] [place] [address] (Routine) Status Reason Specialty Diagnoses / Referred By Referred To Contact Procedures Contact New Request Diagnoses Unstable angina Abu-Sharifeh, Internal Medicine Procedures Discharge Follow-up: PCP INTERNAL MEDICINE, ; 1 Week MD Trena [address] [place], [place] [address] (Routine) Status Reason Specialty Diagnoses / Referred By Referred To Procedures Contact Contact New Request Cardiology Procedures Any Sherman, Cardiac Cath Request for Service [address] [facility] (Cardiology Use SOUTH Only) [place] [address] Radiology Services (STAT) Status Reason Specialty Diagnoses / Referred By Referred To Procedures Contact Contact New Request Diagnostic Diagnoses Chest pain, unspecified type Saenz Jasiel, Radiology Procedures XR CHEST 1 VW DO [address] [facility]. [address] [place] [address] Reason for Visit Reason Comments Chest Pain Auth/Cert Status Reason Specialty Diagnoses / Referred By Referred To Procedures Contact Contact Emergency Medicine Diagnoses CHEST PAIN [facility] Emergency Dept [address] [place] [address] Fax: Encounter Details Date Type Department Care Team Description 09/06/2020 - Hospital Encounter Cardiology (CHANTELL 9B) Ilene Devi EMLORNE [address] [facility] [id number] [place], [place] [id number] Unstable angina 09/09/2020 [address] [facility] Any Sherman MD [address] [place], [place] [address] [place] [address] John Armstrong MD [address] [facility] [id number] [place] [address] [phone] Allergies No Known Allergiesdocumented as of this encounter (statuses as of 09/09/2020) Medications Medication Sig Dispensed Refills Start Date End Date Status methocarbamol Take 500 mg by 0 A ctive (ROBAXIN) 500 mg mouth 2 (two) tablet times daily. metFORMIN 1,000 mg Take 1,000 mg 0 Active tablet by mouth 2 (two) times daily with meals. fluticasone Use 1 Phelps in 0 Act andie propionate (FLONASE each nostril ALLERGY RELIEF) 50 daily. mcg/actuation nasal spray diclofenac 50 mg EC Take 50 mg by 0 Active tablet mouth daily. atorvastatin 80 mg Take 1 tablet 90 tablet 3 05/28/2020 Active tabletIndications: by mouth daily. Unstable angina clopidogreL 75 mg Take 1 tablet 30 tablet 11 05/28/2020 Active tabletIndications: by mouth daily. Unstable angina fenofibrate Take 1 capsule 90 capsule 3 05/28/2020 A ctive micronized 67 mg by mouth daily. capsuleIndications: Unstable angina isosorbide Take 1 tablet 30 tablet 11 05/28/2020 Acti ve mononitrate 120 mg by mouth daily. 24 hr tabletIndications: Unstable angina aspirin 81 mg Take 1 tablet 30 tablet 11 05/29/2020 A ctive chewable by mouth daily. tabletIndications: Unstable angina DULoxetine Take 30 mg by 0 Activ e (CYMBALTA) 30 mg mouth daily. capsule gabapentin 300 mg Take 2 capsules 60 capsule 0 09/03/2020 Active capsuleIndications: by mouth 2 Chest pain, (two) times unspecified type daily. nitroglycerin 0.4 Place 1 tablet 30 tablet 0 09/03/2020 Active mg sublingual under the tabletIndications: tongue every 5 Chest pain, (five) minutes unspecified type as needed for Chest pain. albuterol (PROAIR Inhale 2 Puffs 8.5 g 1 09/03/2020 Active HFA) 90 every 6 (six) mcg/actuation hours as needed inhalerIndications: for Wheezing or Chest pain, Shortness of unspecified type Breath. amLODIPine 5 mg Take 1 tablet 30 tablet 2 09/10/2020 Active tabletIndications: by mouth daily. Unstable angina lisinopriL 5 mg Take 1 tablet 30 tablet 2 09/10/2020 Active tabletIndications: by mouth daily. Unstable angina metoprolol tartrate Take 1 tablet 60 tablet 2 09/09/2020 Active 100 mg by mouth every tabletIndications: 12 (twelve) Unstable angina hours. pantoprazole 40 mg Take 1 tablet 30 tablet 2 09/10/2020 Active EC by mouth daily. tabletIndications: Unstable angina ranolazine 500 mg Take 1 tablet 60 tablet 2 09/09/2020 Active 12 hr by mouth every tabletIndications: 12 (twelve) Unstable angina hours. metoprolol Take 100 mg by 0 Disc ontinued succinate XL 100 mg mouth 2 (two) 1 24 hr tablet times daily. losartan 25 mg Take 1 tablet 30 tablet 0 09/04/2020 Discontinued tabletIndications: by mouth daily. 1 Chest pain, unspecified type documented as of this encounter (statuses as of 09/09/2020) Active Problems Problem Noted Date Chest pain 09/01/2020 Stable angina 06/02/2020 Coronary artery disease involving [place] coronary ema ry of [place] heart 06/02/2020 with angina pectoris Unstable angina 05/24/2020 Type 2 diabetes mellitus without complication, without long-term current 05/24/2020 use of insulin Family history of early CAD 05/24/2020 Essential hypertension 05/24/2020 Coronary artery calcification 05/24/2020 Atypical chest pain 05/23/2020 Orbital cellulitis, right 05/10/2019 Overview: S/P Orbitotomy with Mass Excision OD Obesity (BMI 30-39.9) 05/10/2019 documented as of this encounter (statuses as of 09/09/2020) Immunizations Name Administration Dates Next Due Influenza [...] with No / Unsure 09/06/2020 10:20 AM BIAS BINDING FOLDER someone who was confirmed or suspected to have Coronavirus / COVID-19? documented as of this encounter Last Filed Vital Signs Vital Sign Reading Time Taken Comments Blood Pressure 137/81 09/09/2020 8:11 AM BI[employer] B[employer]ING F[employer]DER Pulse 78 09/09/2020 8:11 AM BI[employer] BINDING FOLDER Temperature 36.3 C (97.4 F) 09/09/2020 8:11 AM BI[employer] B[employer]ING FOLDER Respiratory Rate 18 09/09/2020 8:11 AM BIAS BINDING FOLDER Oxygen Saturation 97% 09/09/2020 8:11 AM BI[employer] BINDING FOLDER Inhaled Oxygen Concentration - - Weight 115.3 kg (254 lb 3.2 oz) 09/09/2020 5:28 AM BI[employer] B[employer]ING F[employer]DER Height 175.3 cm (5' 9.02") 09/07/2020 10:03 AM BI[employer] B[employer]ING FOLDER Body Mass Index 37.52 09/07/2020 10:03 AM BI[employer] B[employer]ING F[employer]DER documented in this encounter Discharge Instructions Ml Pabon RN - 09/09/2020 Patient Discharge Instructions Take Home Medications These are medications ordered for you by your healthcare provider. Do not take any other medications or supplements unless advised by your healthcare provider. Current Discharge Medication List START taking these medications Details amLODIPine (NORVASC) 5 mg Take 5 mg by mouth daily. Qty: 30 tablet, Refills: 2 Start date: 09/10/2020 Associated Diagnoses: Unstable angina lisinopriL (PRINIVIL,ZESTRIL) 5 mg Take 5 mg by mouth daily. Qty: 30 tablet, Refills: 2 Start date: 09/10/2020 Associated Diagnoses: Unstable angina metoprolol tartrate (LOPRESSOR) 100 mg Take 100 mg by mouth every 12 (twelve) hours. Qty: 60 tablet, Refills: 2 Start date: 09/09/2020 Associated Diagnoses: Unstable angina pantoprazole (PROTONIX) 40 mg Take 40 mg by mouth daily. Qty: 30 tablet, Refills: 2 Start date: 09/10/2020 Associated Diagnoses: Unstable angina ranolazine (RANEXA) 500 mg Take 500 mg by mouth every 12 (twelve) hours. Qty: 60 tablet, Refills: 2 Start date: 09/09/2020 Associated Diagnoses: Unstable angina CONTINUE these medications which have NOT CHANGED Details aspirin 81 mg Take 81 mg by mouth daily. Qty: 30 tablet, Refills: 11 Associated Diagnoses: Unstable angina atorvastatin (LIPITOR) 80 mg Take 80 mg by mouth daily. Qty: 90 tablet, Refills: 3 Associated Diagnoses: Unstable angina clopidogreL (PLAVIX) 75 mg Take 75 mg by mouth daily. Qty: 30 tablet, Refills: 11 Associated Diagnoses: Unstable angina fenofibrate micronized (LOFIBRA) 67 mg Take 67 mg by mouth daily. Qty: 90 capsule, Refills: 3 Associated Diagnoses: Unstable angina isosorbide mononitrate (IMDUR) 120 mg Take 120 mg by mouth daily. Qty: 30 tablet, Refills: 11 Associated Diagnoses: Unstable angina albuterol (VENTOLIN) 2 Puffs Inhale 2 Puffs every 6 (six) hours as needed for Wheezing or Shortness of Breath. Qty: 8.5 g, Refills: 1 Associated Diagnoses: Chest pain, unspecified type gabapentin (NEURONTIN) 600 mg Take 600 mg by mouth 2 (two) times daily. Qty: 60 capsule, Refills: 0 Associated Diagnoses: Chest pain, unspecified type nitroglycerin (NITROSTAT) 0.[address] 0.4 mg under the tongue every 5 (five) minutes as needed forChest pain. Qty: 30 tablet, Refills: 0 Associated Diagnoses: Chest pain, unspecified type DULoxetine (CYMBALTA) 30 mg Take 30 mg by mouth daily. diclofenac (VOLTAREN) 50 mg Take 50 mg by mouth daily. fluticasone propionate 1 Phelps Use 1 Phelps in each nostril daily. metFORMIN (GLUCOPHAGE) 1,000 mg Take 1,000 mg by mouth 2 (two) times daily with meals. methocarbamoL (ROBAXIN) 500 mg Take 500 mg by mouth 2 (two) times daily. STOP taking these medications losartan (COZAAR) 25 mg Comments: Reason for Stopping: metoprolol succinate XL (TOPROL XL) 100 mg Comments: Reason for Stopping: Follow-up appointments: For questions regarding follow-up instructions call the [facility] Hotline at or If you experience any of the following symptoms , please follow up with . For worsening symptoms/changing condition/problems or questions: Non-emergency/urgent: Call the Healthcare Hotline at or or Emergency: Go to the closest emergency room or call 911 Please tell us how we are doing. Complete and return the patient satisfaction survey that is mailed to you. Tobacco Avoidance Exposure to tobacco either from smoking, or from second hand (environmental smoke or smokeless tobacco - snuff) is damaging to your health. This information is to encourage everyone to avoid tobacco exposure. It is recommended that you: Avoid second-hand smoke If you do not smoke or use smokeless tobacco, do not start. If you smoke or use smokeless tobacco we encourage you to quit. If you have quit smoking, continue your good work! Information in the You Can Quit section may be used as a resource. Secondhand smoke is dangerous Secondhand smoke is the smoke that comes from a cigarette or other tobacco that someone other than you is smoking. Protect Yourself: Make your home and car smoke-free Family, friends, and visitors should never smoke inside your home or car Everyone knows that smoking is bad for smokers but did you know? Breathing smoke from someone else's cigarette, pipe or cigar can make you sick Smoking inside a home or car is more dangerous because smoke gets trapped inside - even fans and open windows don't help Children who live in homes where people smoke get sick more often with coughs, breathing problemssuch as asthma, and ear infections Secondhand smoke is also linked to Sudden Infant Syndrome (SIDS) Secondhand smoke can cause lung cancer in adults and is also bad for the heart.1 You Can Quit Smoking Want to Quit? Nicotine is a powerful addiction Quitting is hard, but don't give up Many people try 2-3 times before they quit for good Each time you try to quit, the more likely you are to succeed Good Reasons for Quitting You will live longer and live better Quitting will lower your chance of having a heart attack, stroke, or cancer If you are , quitting smoking will improve your chances of having a healthy baby The people you live with, especially your children, will be healthier You will have extra money to spend on things other than cigarettes Tips to Help You Quit Get rid of all cigarettes and ashtrays in your home, car, or workplace Ask your family, friends, and coworkers for support Stay in nonsmoking areas Breathe in deeply when you feel the urge to smoke Keep your self busy Reward yourself often Additional Resources You may want to contact these organizations for further information on smoking and how to quit. [place] [employer] [place] [employer] [place] [employer] 1U.S. Environmental Protection Agency. Secondhand Tobacco Smoke and the Health of Your Family brochure. Retrieved from the Internet on February 24, 2006. Http://www.epa.gov/smokefree/publications.html#How %20to%20Order%20EPA%20Publications Five [place] for Quitting Studies have shown that these five steps will help you quit and quit for good. You have the best chances of quitting if you use them together. 1. Get Ready Set a quit date Change your environment 1. Get rid of ALL cigarettes and ashtrays in your home, car, and place of work 2. Don't let people smoke in your home Review your past attempts to quit. Think about what worked and what did not Once you quit, don't smoke - NOT EVEN A PUFF! 2. Get Support and Encouragement Studies have shown that you have a better chance of being successful if you have help. You can get support in many ways: Tell you family, friends, and co-workers that you are going to quit and want their support. Ask them not to smoke around you or leave cigarettes out. Talk to your health care provider (for example, doctor, nurse, pharmacist, psychologist, or smoking counselor Get individual, group, or telephone counseling. The more counseling you have, the better you chances are of quitting. Programs are given at local hospitals and health centers. Call your local health department for information about programs in your area. 3. Learn New Skills and Behaviors Try to distract yourself from urges to smoke. Talk to someone, go for a walk, or get busy with atask When you first try to quit, change your routine. Use a different route to work. Drink tea instead of coffee. Eat breakfast in a different place. Do something to reduce your stress. Take a hot bath, exercise, or read a book. Plan something enjoyable to do every day Drink a lot of water and other fluids 4. Get Medication and Use It Correctly Medications can help you stop smoking and lessen the urge to smoke. The U.S. Food and Drug Administration (FDA) has approved five medications to help you quit smokin. Bupropion SR - Available by prescription 2. Nicotine gum - Available [id number] 3. Nicotine inhaler - Available by prescription 4. Nicotine nasal spray - Available by prescription 5. Nicotine patch - Available by prescription and wfhc-cjr-dwvputa Ask your health care provider for advice and carefully read the information on the package All of these medications will more or less double your chances of quitting and quitting for good Everyone who is trying to quit may benefit from using a medication. If you are or trying to become , nursing, under age 18, smoking fewer than 10 cigarettes per day, or have a medical condition, talk to your doctor or other health care provider before taking medications 5. Be Prepared for Relapse or Difficult Situations Most relapses occur within the first 3 months after quitting. Don't be discouraged if you start smoking again. Remember, most people try several times before they finally quit. Here are some difficult situations to watch for: Alcohol. Avoid drinking alcohol. Drinking lowers your chances of success. Other Smokers. Being around smoking can make you want to smoke. Weight Gain. Many smokers will gain weight when they quit, usually less than 10 pounds. Eat a healthy diet and stay active. Don't let weight gain distract you from your main goal - quitting smoking. Some quit-smoking medications may help delay weight gain. Bad Mood or Depression. There are a lot of ways to improve your mood other than smoking. If you are having problems with any of these situations, talk to your doctor or other health careprovider. AttachmentsThe following attachments cannot be sent through Care Everywhere. Amlodipine, Taking (Kosovan)Lisinopril tablets (Kosovan)Metoprolol tablets (Kosovan)Pantoprazole tablets (Kosovan)Ranolazine tablets, extended release (Kosovan)Angina, Discharge Instructions for (Kos[place])documented in this encounter Progress Notes Simon Campbell MD - 09/08/2020 7:23 AM CST CCU Progress/Transfer Note Date of Service: 09/08/2020 07:23 Chief Complaint: Chest Pain 24-HOUR EVENTS: -[facility] yesterday: patent LAD stent, RCA stent, moderate dRCA disease, non, significant FFR SUBJECTIVE: Patient seen resting comfortably prior to exam, complaining of chest pain 03/03, states mildly improved. He denies sob, fever, chills, abdominal pain, nausea and emesis. PHYSICAL EXAM: Vitals: 09/08/20 0000 09/08/20 0200 09/08/20 0400 09/08/20 0600 BP: 112/74 110/75 (!) 117/92 134/87 Pulse: 69 65 73 67 Resp: 13 14 13 10 Temp: 35.7 C (96.3 F) TempSrc: Tympanic Tympanic SpO2: 99% 100% 100% 100% Weight: Height: Intake/Output Summary (Last 24 hours) at 09/08/2020 0723 Last data filed at 09/08/2020 0500 Gross per 24 hour Intake 348 ml Output 1850 ml Net -1502 ml Gen: NAD, AOx4 HEENT: NC/AT, EOMI, MMM P: CTAB, no wheezes, crackles or rhonchi, not in respiratory distress CV: RRR, no MRG Abd: NTTP, Soft, Obese MSK: All extremities seen moving spontaneously Neuro: CN2-12 grossly intact, peripheral sensation intact Skin: No peripheral edema,left groin site well bandaged - no hematoma, bleeding or drainage LABS/IMAGING - reviewed Troponin I - 0.012->0.004->0.007 ASSESSMENT/PLAN Brett Kramer is a 40 year old male with PMH as listed above, admitted to the hospital with: #Chest pain, uncertain etiology, LHC/FFR benign #CAD s/p PCI of mRCA, dRCA, and pLAD (May 2020) #HTN #HLD #Family History of Premature CAD #History of substance abuse, cocaine and anabolic steroids (cessation 12 years ago) Patient with history of CAD with PCI in May 2020 at [facility] who presented on 09/06/19 to [place] EDwith worsening chest pain that has been occurring at periodic intervals since last intervention. Troponin I negative x 3 this admission and negative at previous admission in [place] with no ST segment elevation/depression on EKG. LHC on 09/07/20 showed patent stents with negative FFR, uncertain etiology of chest pain will continue medical therapy and add Norvasc for help with possible pain related tospasms. Plan: -Transfer to White Team -EKG prn -nitro gtt - weaned off this am -c/w lipitor 80 mg QHS -c/w home aspirin 81 mg -c/w home plavix 75 mg daily -c/w home metoprolol tartrate 100 mg BID -c/w home lisinopril 5 mg daily -increase as blood pressure allows -c/w ranexa 500 mg Q12H -contact SW for help with obtaining on discharge -start Norvasc 5 mg daily #Type II DM Patient on home metformin with periodic non-adherence with last A1C of 9.7 in April of 2020. Will hold metformin and c/w sliding scale insulin. -hold home metformin -SSI aspart -Hgb A1c - 8.8 #Severe hypertriglyceridemia, previously failed statin therapy -c/w home fenofibrate 67 mg daily #Complex regional pain syndrome -hold home medications in setting of non-adherence with robaxin -restart gabapentin Pain ImprovedMorphine Prophylaxis: DVT- heparin Stress Ulcer: pantoprazole Code Status: addressed: FULL Simon Campbell MD Internal Medicine PGY-3 Pager #: [phone] END OF DAILY PROGRESS NOTE Hospital Course Mr. Brett Kramer is a 40 year old male with a pmh of Type 2 DM, HTN, HLD, Pulmonary embolism (2013 on Xarelto for one year), Complex regional pain syndrome, history of substance abuse (cocaine and anabolic steroids - cessation 12 years ago) and CAD s/p PCI of mRCA, dRCA and pLAD (May 2020) who presented to [facility] on 09/06/20 for evaluation of chest pain. Patient HDS on arrival. Troponin I negative with multiple sets and nitro gtt/hep gtt initiated.Transferred to [facility] CCU (09/06/20) with LHC and FFR which showed patent stents and negative FFR. Patient weaned off nitro gtt with ranexa and amlodipine started. Stable for transfer to the floor on 09/08/20. CURRENT MEDICATIONS - reviewed. BINDING FOLDER Associated attestation - Any Sherman MD - 09/08/2020 11:55 AM CSTSeen, examined and discussed with team during rounds. Agree with Resident's Findings, assessment andplan Reviewed with patient negative findings of CT PE and core angio with FFR Discussed optimizing meds Will add low dose norvasc Will ask finish production manager to assist with ranexa if possible Transfer to [place] Asha Rendon LBSW - 09/07/2020 4:42 PM CSTPatient Shift Production Supervisor Note: A notary was requested for Mr. Kramer's MPOA. Upon arrival, Mr. Kramer appeared alert and oriented and had a valid ID. He expressed a verbal understanding of the document and it was signed and notarized. A copy of the MPOA was left in Mr. Kramer' chart and the original and an additional copy was left with Mr. Kramer. Will provide additional assistance as needed. Asha Rose M.Ed., ADRIANA Patient Shift Production Supervisor [facility] [phone] Simon Canales MD - 09/07/2020 6:45 AM CST CCU Progress/Transfer Note Date of Service: 09/07/2020 06:45 Chief Complaint: Chest Pain 24-HOUR EVENTS: -Admitted to CCU yesterday afternoon -NPO for cor angio today SUBJECTIVE: Patient seen resting comfortably. He reports that he continues to have left sided chest pain, 9/10 pressure-like but mildly improved from admission yesterday. PHYSICAL EXAM: Vitals: 09/07/20 0000 09/07/20 0200 09/07/20 0400 09/07/20 0600 BP: 135/84 139/86 110/77 120/74 Pulse: 84 89 90 83 Resp: 16 13 14 16 Temp: 35.9 C (96.6 F) 35.9 C (96.6 F) TempSrc: Tympanic Tympanic SpO2: 97% 94% 94% 96% Weight: Height: Intake/Output Summary (Last 24 hours) at 09/07/2020 0645 Last data filed at 09/07/2020 0000 Gross per 24 hour Intake Output 650 ml Net -650 ml Gen: NAD, AOx4 HEENT: NC/AT, EOMI, MMM P: CTAB, no wheezes, crackles or rhonchi, not in respiratory distress CV: RRR, no MRG Abd: NTTP, Soft, Obese MSK: All extremities seen moving spontaneously Neuro: CN2-12 grossly intact, peripheral sensation intact Skin: No peripheral edema, lesions, dry, intact LABS/IMAGING - reviewed Troponin I - 0.012->0.004->0.007 ASSESSMENT/PLAN Brett Kramer is a 40 year old male with PMH as listed above, admitted to the hospital with: #Unstable angina #CAD s/p PCI of mRCA, dRCA, and pLAD (May 2020) #HTN #HLD #Family History of Premature CAD #History of substance abuse, cocaine and anabolic steroids (cessation 12 years ago) Patient with history of CAD with PCI in May 2020 at [facility] who presented on 09/06/19 to [place] EDwith worsening chest pain that has been occurring at periodic intervals since last intervention. Troponin I negative x 3 this admission and negative at previous admission in [place] with no ST segment elevation/depression on EKG. Will continue nitro gtt and heparin gtt with plan for cor angio today. Plan: -EKG prn -c/w heparin gtt -c/w nitro gtt -Plan for cor angio today -NPO except meds -lipitor 80 mg QHS -c/w home aspirin 81 mg -c/w home plavix 75 mg daily -c/w home metoprolol tartrate 100 mg BID -c/w home lisinopril 2.5 mg daily #Type II DM Patient on home metformin with periodic non-adherence with last A1C of 9.7 in April of 2020. Will hold metformin and start sliding scale insulin. -hold home metformin -SSI aspart -Hgb A1c - 8.8 #Severe hypertriglyceridemia, previously failed statin therapy -c/w home fenofibrate 67 mg daily #Complex regional pain syndrome -hold home medications in setting of non-adherence with robaxin -restart gabapentin Pain ImprovedMorphine Prophylaxis: DVT- heparin Stress Ulcer: pantoprazole Code Status: addressed: FULL Simon Campbell MD Internal Medicine PGY-3 Pager #: [phone] END OF DAILY PROGRESS NOTE Hospital Course Mr. Brett Kramer is a 40 year old male with a pmh of Type 2 DM, HTN, HLD, Pulmonary embolism (2013 on Xarelto for one year), Complex regional pain syndrome, history of substance abuse (cocaine and anabolic steroids - cessation 12 years ago) and CAD s/p PCI of mRCA, dRCA and pLAD (May 2020) who presented to [facility] on 09/06/20 for evaluation of chest pain. Patient HDS on arrival. Troponin I negative with multiple sets and nitro gtt/hep gtt initiated.Transferred to [facility] CCU (09/06/20) for cor angiography. CURRENT MEDICATIONS - reviewed. BINDING FOLDER Associated attestation - Any Sherman MD - 09/07/2020 1:25 PM CSTSeen, examined and discussed with team during rounds. Agree with Resident's Findings, assessment andplan Plan: Check BP in both arms (checked and equal), also negative CT PE few days ago Increase lisinopril to optimize BP control and wean nitro drip Start ranexa 500 mg oral Jamir Desouza RN - 09/06/2020 3:59 PM CSTCare Management Social Functional Assessment Patient Name: Brett Kramer Age: [age] year old Sex: male Patient's Previous Admission Date at [facility]: 05/25/2020 Patient lives at home alone and is currently independent with ADLs (does not drive) and has support of neighbors. Patient stated that he is currently on disability but was denied medicaid due to over income. Patient stated that he will see a state doctor in the next coming weeks to determine when patient will be deemed "fit for work" and determine if he will lose disability income. Patient stated that [facility] but was [facility] due to over income. Pending heart cathprocedure to determine plan of care. Anticipate discharge home once medically cleared by MD Current diagnosis and co-morbidities: CHEST PAIN Readmission Questions: Was patient discharged from any acute care hospital within the last 30 days: No Social Functional Assessment: Primary language spoken/preferred: Kosovan Mental Status: Alert & Oriented to Person,Place & Time Information given by: Self Patient's support system: Other Name and number of support system: VIVIAN CRABTREE (friend/neighbor) [phone] Primary Flight Communications Operator: Self MPOA: No Living Arrangement: Home Address of living arrangement : [address] [place] [id number] Persons living in home: Self Barriers to returning home: None Baseline functional status- ambulation: Independent Functional status-baseline personal care: Independent Baseline functional status- driving: Dependent Baseline functional status- grocery shopping: Independent Functional status-baseline housekeeping: Independent Functional status-baseline meal prep: Independent Current functional status same as prior: Yes Do you have a PCP?: Yes Name of PCP: Omari Thao [facility] Agency: No Provider Services: No DME Company: No Equipment: Cane Hemodialysis: No Community resources utilized: SSA/SSI/Medicaid Funding Resources: Self Pay Prescription coverage plan: Self Pay Pharmacy where meds are filled: Other Other pharmacy: [facility] in [place] Anticipated services prior to disharge: Continue Medical Eval;MIBI/Cardiac Cath Expected mode of discharge transportation: Friend Name and phone number of the friend or family member picking up the patient: pt stated he will find someone to come pick him up Additional info required for discharge planning: Pending medical evaluation Recommended discharge plan: Home SFA Complete: Social Functional Assessment complete: Yes Alcohol Use Screening (AUDIT-C) How often do you have a drink containing alcohol?: Never SCORE: 0 Role of Care Management explained. Jamir RAY, RN, CCRN Gravel Machine Operator [facility] Care Management [email or web address] [phone] documented in this encounter H&P Notes Simon Campbell MD - 09/06/2020 12:21 PM CST CCU ADMIT H&P PCP: Omari Thao Date of Service: 09/06/2020 CHIEF COMPLAINT: Chest Pain HISTORY OF PRESENT ILLNESS Mr. Brett Kramer is a 40 year old male with a pmh of Type 2 DM, HTN, HLD, Pulmonary embolism (2013 on Xarelto for one year), Complex regional pain syndrome, history of substance abuse (cocaine and anabolic steroids - cessation 12 years ago) and CAD s/p PCI of mRCA, dRCA and pLAD (May 2020) who presented to [facility] for evaluation of chest pain. Patient reports that symptoms have been occurring "off and on" since two weeks following his PCI in May. Mr. Kramer reports that chest pain worsened to 10/10 (pressure-like in left chest, radiating to left arm, occurs at rest) last Friday09/01/20 atwhich time he had ran out off all medications (including aspirin and plavix for previous two days). Patient also endorses orthopnea and sob but denies fever, chills, headache, loss of consciousness, trauma, dysuria, abdominal pain, nausea and emesis. He was admitted to [facility] campus from Sep 01- for atypical chest pain at which time cardiology was consulted who recommended transfer to [facility] however patient refused transfer due to outpatient disability appointment. During past admission patient was noted to have negative troponin I x 4, no alarms on telemetry. He endorses adherence with medications including aspirin and plavix which he last took this morning (09/06/19). In the ED, patient is afebrile (36.8 C), HR 71 bpm, BP 143/98 and SpO2 100% on RA. Workup shows wbc 8.98, Hgb 14.7, Plt 264, Na 134, K 4.4, Cl 99, BUN 17, Creatinine 0.79 (baseline ~ 0.8), Calcium 9, Troponin I 0.012, NT-pro BNP 354 (unknown baseline), Lipase 88, Alk Phos/ALT/AST 66/38/29 respectively, INR 1.1 and rapid COVID negative. Chest x-ray showed no signs of acute cardiopulmonary disease. In the ED, patient was given morphine 4 mg x 2 and started on heparin gtt as well as nitro gtt prior to transfer to [place]. PAST MEDICAL HISTORY Past Medical History: Diagnosis Date CAD (coronary artery disease) Complex regional pain syndrome type II of right lower limb DM (diabetes mellitus) History of pulmonary embolus (PE) 2013 HTN (hypertension) Past Surgical History: Procedure Laterality Date ARTHROSCOPIC SHOULDER ROTATOR CUFF REPAIR 10/2017 MASS EXCISION Right 05/14/2019 Surgeon: Diaz Obrien MD; [facility] ORBITOTOMY Right 05/14/2019 Surgeon: Diaz Obrien MD; [facility] Family History Problem Relation Age of Onset Stroke Mother 67 Diabetes Mother Hypertension Mother Diabetes Father Coronary Heart Disease Father before the age of 50 Diabetes Brother ALLERGIES No Known Allergies MEDICATIONS No current facility-administered medications on file prior to encounter. Current Outpatient Medications on File Prior to Encounter Medication Sig Dispense Refill albuterol (PROAIR HFA) 90 mcg/actuation inhaler Inhale 2 Puffs every 6 (six) hours as needed forWheezing or Shortness of Breath. 8.5 g 1 gabapentin 300 mg capsule Take 2 capsules by mouth 2 (two) times daily. 60 capsule 0 losartan 25 mg tablet Take 1 tablet by mouth daily. 30 tablet 0 nitroglycerin 0.[address] 1 tablet under the tongue every 5 (five) minutes as needed for Chest pain. 30 tablet 0 metoprolol succinate XL 100 mg [...] tablet by mouth daily. 30 tablet 11 diclofenac 50 mg EC tablet Take 50 mg by mouth daily. fluticasone propionate (FLONASE ALLERGY RELIEF) 50 mcg/actuation nasal spray Use 1 Phelps in eachnostril daily. metFORMIN 1,000 mg tablet Take 1,000 mg by mouth 2 (two) times daily with meals. methocarbamol (ROBAXIN) 500 mg tablet Take 500 mg by mouth 2 (two) times daily. SOCIAL HISTORY Social History Socioeconomic History Marital [...] file Gets together: Not on file Attends yarsani service: Not on file Active member of [...] Concern Not on file Social History Narrative Patient lives in [place], [place], currently on disability. History of substance abuse (anabolicsteroids, cocaine - cessation 12 years ago). Lives alone. Younger sister is medical decision maker if patient unable to make decisions. - updated 09/06/19 REVIEW OF SYSTEMS (-)=Negative,(+)=Positive 12 point ROS negative except per HPI PHYSICAL EXAMINATION Vitals: 09/06/20 1020 09/06/20 1050 09/06/20 1119 09/06/20 1130 BP: (!) 151/105 (!) 142/97 (!) 133/98 Pulse: 71 70 76 Resp: 17 16 18 Temp: SpO2: 99% 97% 97% 97% Weight: Gen: AOx4, moderate distress due to ches tpain HEENT: EOMI, MMM P: CTAB, no increased wob CV: RRR, no MRG Abd: NT, Obsese MSK: Strength 5+ in BUE and BLE, left sluice tender to palpation Neuro: CN2-12 grossly intact, peripheral sensation intact Skin: No peripheral edema, lesions LABS - reviewed pertinent labs as below: As per HPI IMAGING - reviewed, pertinent results as below: Chest X-ray - 09/06/20 "FINDINGS: No acute pneumonia. No pneumothorax or pleural effusion or pulmonary congestion detected. Cardiac size is within normal limits. CONCLUSIONS: No signs of acute cardiopulmonary disease." ECG 06/02/2020 SR with narrow QRS complex. [...] 3.0 x 32 mm Synergy Rx YUE EKG: normal sinus rhythm 66 bpm, IN interval 186 ms, QTc 465 ms CHART REVIEW: pertinent information as below: [facility] 09/01-06/14 Hospital Course "#Atypical chest pain -Mostly resolved. States he intermittently will have some chest tightness but the pain is much lessthan on admission. -Troponins negative x5 -Telemetry with no normal rhythms -Limited echocardiogram from 06/02/2020 with an EF of 60 to 65% and normal left ventricular systolicfunction.Prior echo from 05/24/2020 shows diastolic dysfunction,same EF and a mildly dilated left atrium -Cardiology consulted.Recommending cardiac cath due to his past medical history but patient stateshe cannot miss an appointment on Friday regarding his disability. States he will follow up with cardiology as an outpatient or return to the emergency room once he has his disability appointment settled. -Spoke with patient and expressed our concern of requiring a left heart cath. Patient reiterated that he cannot miss his appointment on Friday and wants to go home today. -Continue nitroglycerin as needed,statin,Imdur, clopidogrel and aspirin #DM type 2 -Prior A1c on 05/15/2020 of 9.7 -can resume home med metformin #Essential hypertension -Continue metoprolol, losartan" [facility] White Team 05/23-05/28/2020 "Brett Kramer is a 39 y.o male with PMH of DM (A1c: 9.7) HTN, hx of PE (2014on Xarelto for 1 year)and complex regional pain syndrome presenting with unstable angina. Patient was transferred toCCU for nitro gtt given persistent chest pain. LHC showed mLAD and m-dRCA disease and CT surgery was consulted for possible CABG given two vessel disease in diabetic. Patient opted to undergo LHC with PCI of mRCA, dRCA, and pLAD disease. TTE with normal EF. Patient with persistent anginal symptoms that are controlled with medications; patient is hemodynamically stable for discharge." ASSESSMENT/PLAN Brett Kramer is a 40 year old male with PMH as listed above, admitted to the hospital with: #Unstable angina #CAD s/p PCI of mRCA, dRCA, and pLAD (May 2020) #HTN #HLD #Family History of Premature CAD #History of substance abuse, cocaine and anabolic steroids (cessation 12 years ago) Patient with history of CAD with PCI in May 2020 at [facility] who presented to [place] ED with worsening chest pain that has been occurring at periodic intervals since last intervention. Recent admission to [facility] at which time troponin and ekg workup was negative but LHC was recommended but ultimately refused due to patient having to make disability concern. Patient started on heparin and nitro gtt in ED which will continue along with home plavix and aspirin due to concern for cardiac etiology with plan for LHC today vs tomorrow. Plan: -Admit to [facility] CCU -Vitals Q2H, O2PP -Admission labs -Trend Troponin I -EKG prn -UDS -c/w heparin gtt -c/w nitro gtt -Plan for cardiac cath today vs tomorrow -NPO except meds -lipitor 80 mg QHS -c/w home aspirin 81 mg -c/w home plavix 75 mg daily -c/w home metoprolol tartrate 100 mg BID -c/w home lisinopril 2.5 mg daily #Type II DM Patient on home metformin with last A1C of 9.7 in April of 2020. Will hold metformin and start sliding scale insulin. -hold home metformin -SSI aspart -Hgb A1c #Severe hypertriglyceridemia, previously failed statin therapy -lipid panel in am -c/w home fenofibrate 67 mg daily #Complex regional pain syndrome -hold home medications in setting of non-adherence with robaxin and gabapentin Pain ImprovedMorphine Prophylaxis: DVT- heparin Stress Ulcer: pantoprazole Code Status: addressed: FULL Simon Campbell MD Internal Medicine PGY-3 Pager #: [phone] BINDING FOLDER Associated attestation - Any Shreman MD - 09/06/2020 10:13 PM CSTSeen, examined and discussed with team during rounds. Agree with Resident's Findings, assessment andplan Patient transferred from [facility] for unstable angina. Patient was admitted on Friday for chest pain and cor angio was recommended but patient left AMA because he had an appointment with a business line controller with regards to injury sustained at work and said that if he missed that it would have been impossible to reschedule. He then went back to hospital and reports persistent chest pain that waxes and wanes but never goes away. Described as chest pressure/tightness in substernal area that radiates to left arm, similar to pain he had in 05/2020 when he had PCI done. He reports being out of all of his meds including plavix for 2 days last Friday and Friday and that he started taking them again after he asked his neighbors to buy him his meds but chest pain had already started. Currently on heprain and nitro drips Plan for cor angio in AM, cath sooner if chest pain worsens Troponins negative multiple sets since Friday and including 2 sets from today. documented in this encounter Procedure Notes Pepe Ramires MD - 09/07/2020 11:25 AM CSTProcedure(s): CORONARY ANGIOGRAPHY; LEFT HEART CATH; IVUS/FFRPre-Procedure Diagnose(s): Coronary artery disease involving [place] coronary artery of [place] heart with unstable angina pectoris Left Heart Cath/Coronary Angiography Date of Service: 09/07/2020 11:26 AM Fellow: Drs. Jennings and Hermila Faculty: Ike Indication/Diagnosis: Unstable Angina Consent source: self Consent type: indications/complications discussed with patient/legal guardian; written consent obtained Time out completed: yes Aseptic technique: Chlorprep Local Anesthesia: 1% lidocaine without epinephrine Sedation: fentanyl 75 mcg, Versed mg Access site: right femoral artery Closure Method: Angio Seal Sterile dressing: yes Complications: none Findings: Coronary dominance: right Left main: Large, patent LAD: Large proximal mild disease then patent proximal to mid stent, mid mild disease then 30-40%, distal vessel is of small caliber D1: Large, mild disease D2: Small D3: Small LCX: Large, proximal proximal mild LI, mid 20%, then mid to distal mild LI OM1: Small to medium size, mild disease OM2: Large, mild disease OM3: Small RCA: Large, dominant, proximal mild disease, mid to distal patent stents, distal 50% (FFR baseline 0.97, peak of 0.88 @ 180 mcg/Kg/min Adenosine IV) PDA: Large, mild disease PLB: Medium size, mild LI LVEDP: 21 mmHg Impression: 1. Patent proximal to mid LAD stent 2. Patent RCA stents 3. Moderate dRCA disease. Non-significant FFR Plan: 1. Monitor in CCU 2. ASA 81 mg daily 3. Continue Plavix 4. He on long acting nitrate. Currently on NTG drip 5. Please add Ranexa to regimen 6. Aggressive medical management 7. Findings and plan discussed with patient Pepe Ramires M.D. Interventional Cardiology Pager: [phone] documented in this encounter ED Notes Rhea Gay RN - 09/06/2020 9:53 AM CSTPt reports jermaine he was admitted on Friday for CP obs. Pt was released, but reports tat CP has continued and worsened this AM. Pt had Cardiac stent x3 in May. Pt took ASA and Nitro x2. BINDING FOLDER documented in this encounter Miscellaneous Notes Nursing Note - Ml Elmore RN - 09/09/2020 11:58 AM CSTDischarge instructions provided over diagnosis, medications, importance of follow up appointments and post cath instructions with handout. Pt verbalized understanding and able to teach back. Denies anyfurther questions or concerns at this time. Patients MPOA original and copy provided back to patientfrom chart. Copy remains in chart as well. Transportation arranged and pending. are Plan - Ml Elmore RN - 09/09/2020 10:38 AM BIAS BINDING FOLDER Problem: Pain Goal: Control of pain at or below patient's documented comfort goal Outcome: Progressing as expected Goal: Reduction in pain sensation Outcome: Progressing as expected Problem: Glucose control Goal: Glucose level within specified parameters Outcome: Progressing as expected Problem: Falls, Risk of Goal: Absence of falls Outcome: Progressing as expected Problem: Discharge Planning Goal: Absence of venous thromboembolism Outcome: Progressing as expected Goal: Adequate for discharge Outcome: Progressing as expected Goal: Effective communication Outcome: Progressing as expected are Plan - Artem Galdamez RN - 09/09/2020 5:11 AM BIAS BINDING FOLDER Problem: Pain Goal: Control of pain at or below patient's documented comfort goal Outcome: Progressing as expected Goal: Reduction in pain sensation Outcome: Progressing as expected are Plan - Kriss Floyd RN - 09/08/2020 5:58 PM BIAS BINDING FOLDER Problem: Pain Goal: Control of pain at or below patient's documented comfort goal Outcome: Progressing as expected Goal: Reduction in pain sensation Outcome: Progressing as expected Problem: Glucose control Goal: Glucose level within specified parameters Outcome: Progressing as expected Problem: Falls, Risk of Goal: Absence of falls Outcome: Progressing as expected Problem: Discharge Planning Goal: Absence of venous thromboembolism Outcome: Progressing as expected Goal: Adequate for discharge Outcome: Progressing as expected Goal: Effective communication Outcome: Progressing as expected 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 Continue with pain management for chest, Lt arm, left side of back and Rt groin pain. ath Lab Procedure Note - Irina Duran RN - 09/07/2020 11:13 AM CSTElapsed Sedation Time: 68 min. D Nurse Note - Jessica Cruz RN - 09/06/2020 1:33 PM CSTEms here for transport; report called to Shara CARMONA at the number provided by [facility]. D Nurse Note - Alexandro Bloom - 09/06/2020 12:58 PM [id number] - Contacted [facility] to arrange transport. ETA 20 minutes. documented in this encounter Plan of Treatment Date Type Specialty Care Team Description 12/25/2020 Office Visit Cardiology Julius Leslie M D [address] [facility] [address] [place] [address] [phone] Name Type Priority Associated Diagnoses Date/Ti me Critical Care PROCEDURES Routine 09/06/2020 12: 12 PM BIAS BINDING FOLDER URINE DRUG (LCMSMS) - LAB Routine 2020 7:22 PM SYNTHETIC OPIATES BIAS BINDING FOLDER PANEL URINE DRUG (LCMSMS) - LAB Routine 2020 7:22 PM OPIATES PANEL BIAS BINDING FOLDER Name Type Priority Associated Order Schedule Diagnoses MRSA / MSSA Screen by LAB [facility] ONCE f or 1 PCR, Nares Occurrences sta rting 09/06/2020 unti l 09/06/2020 Transfusion Reaction LAB Routine FOR FOL LOW-UP TESTING Investigation until disconti nued starting 2020 Urinalysis (Spun) LAB [facility] FOR FOLLOW -UP TESTING until discontin ued starting 2020 EKG-12 LEAD ROUTINE HEART STATION Routine Unstable angina EVER Y MORNING for 3 QAM Days starting 09/07/2020 unti l 09/09/2020, 1 completed ACTIVATED PARTIAL LAB [facility] FOR FOLLOW -UP TESTING THRMPLAS CHRISTIANO until discontin ued starting 2020, 2 completed URINE DRUG (LCMSMS) - LAB [facility] ONCE f or 1 SYNTHETIC OPIATES Occurrence s starting PANEL 09/06/2020 unti l 09/06/2020, 1 completed URINE DRUG (LCMSMS) - LAB [facility] ONCE f or [address] arting 09/06/2020 unti l 09/06/2020, 1 completed Health Maintenance Due Date Last Done Comments URINE MICROALBUMIN 1989 FOOT EXAM 1997 DTaP,Tdap,and Td Vaccines (1 - 1998 06/12/2018 Tdap) EYE EXAM 05/18/2020 05/18/2019 HgA1C 03/06/2021 09/06/2020, 05/23/2020, 05/09/2019 Depression Screening 06/27/2021 06/27/2020 LDL-C 09/07/2021 09/07/2020, 06/02/2020, 05/23/2020, Additional history exists CREATININE (SERUM) 09/08/2021 09/08/2020, 09/07/2020, 09/06/2020, Additional history exists INFLUENZA VACCINE Completed 05/28/2020 PNEUMOCOCCAL 0-64 YEARS COMBINED Completed 05/28/2020 SERIES documented as of this encounter Procedures Procedure Name Priority Date/Time Associated Comments Diagnosis POCT GLUCOSE Routine 09/09/2020 8:12 Results for this (AUTOMATED) AM BIAS BINDING FOLDER procedure are i n the results section. BASIC METABOLIC PANEL Routine 09/09/2020 3:20 Re sults for this (NA, K, CL, CO2, AM BIAS BINDING FOLDER procedure a re in GLUCOSE, BUN, the results CREATININE, CA) section. MAGNESIUM Routine 09/09/2020 3:20 Results for this AM BIAS BINDING FOLDER procedure are i n the results section. POCT GLUCOSE Routine 09/08/2020 9:08 Results for this (AUTOMATED) PM BIAS BINDING FOLDER procedure are i n the results section. POCT GLUCOSE Routine 09/08/2020 4:49 Results for this (AUTOMATED) PM BIAS BINDING FOLDER procedure are i n the results section. POCT GLUCOSE Routine 09/08/2020 12:24 Results for this (AUTOMATED) PM BIAS BINDING FOLDER procedure are i n the results section. BASIC METABOLIC PANEL RAD[facility] 09/08/2020 5:11 Re sults for this (NA, K, CL, CO2, AM BIAS BINDING FOLDER procedure a re in GLUCOSE, BUN, the results CREATININE, CA) section. MAGNESIUM RAD[facility] 09/08/2020 5:11 Results for this AM BIAS BINDING FOLDER procedure are i n the results section. POCT GLUCOSE Routine 09/07/2020 6:05 Results for this (AUTOMATED) PM BIAS BINDING FOLDER procedure are i n the results section. POCT GLUCOSE Routine 09/07/2020 4:06 Results for this (AUTOMATED) PM BIAS BINDING FOLDER procedure are i n the results section. POCT GLUCOSE Routine 09/07/2020 12:15 Results for this (AUTOMATED) PM BIAS BINDING FOLDER procedure are i n the results section. POCT ACT LOW RANGE Routine 09/07/2020 11:03 Resul ts for this AM BIAS BINDING FOLDER procedure are i n the results section. POCT ACT LOW RANGE Routine 09/07/2020 10:47 Resul ts for this AM BIAS BINDING FOLDER procedure are i n the results section. POCT ACT LOW RANGE Routine 09/07/2020 10:40 Resul ts for this AM BIAS BINDING FOLDER procedure are i n the results section. HB ECG ROUTINE & Routine 09/07/2020 4:14 Unstable angina RHYTHM STRIP AM BIAS BINDING FOLDER LOW-DENSITY RADHA 09/07/2020 3:10 Results for this LIPOPROTEIN, DIRECT AM BIAS BINDING FOLDER procedur e are in the results section. ACTIVATED PARTIAL RAD[facility] 09/07/2020 3:10 Result s for this THRMPLAS CHRISTIANO AM BIAS BINDING FOLDER procedure are i n the results section. LIPID PANEL RAD[facility] 09/07/2020 3:10 Results for this ([id number])(TOTAL AM BIAS BINDING FOLDER procedure are in CHOLESTEROL, the results TRIGLYCERIDES, HDL) section. BASIC METABOLIC PANEL RADHA 09/07/2020 3:10 Re sults for this (NA, K, CL, CO2, AM BIAS BINDING FOLDER procedure a re in GLUCOSE, BUN, the results CREATININE, CA) section. MAGNESIUM RAD[facility] 09/07/2020 3:10 Results for this AM BIAS BINDING FOLDER procedure are i n the results section. TROPONIN I RAD[facility] 09/06/2020 10:38 Results for this PM BIAS BINDING FOLDER procedure are i n the results section. POCT GLUCOSE Routine 09/06/2020 10:35 Results for this (AUTOMATED) PM BIAS BINDING FOLDER procedure are i n the results section. ACTIVATED PARTIAL RADHA 09/06/2020 7:22 Result s for this THRMPLAS CHRISTIANO PM BIAS BINDING FOLDER procedure are i n the results section. GALV/CLC ONLY - URINE Routine 09/06/2020 7:22 Re sults for this DRUG (IMMUNOASSAY) - PM BIAS BINDING FOLDER procedu re are in COMPREHENSIVE DRUG the resul ts SCREEN section. POCT GLUCOSE Routine 09/06/2020 4:28 Results for this (AUTOMATED) PM BIAS BINDING FOLDER procedure are i n the results section. TROPONIN I RADHA 09/06/2020 3:17 Results for this PM BIAS BINDING FOLDER procedure are i n the results section. HB ECG ROUTINE & STAT 09/06/2020 3:12 Chest pain in RHYTHM STRIP PM BIAS BINDING FOLDER adult CRITICAL CARE Routine 09/06/2020 12:12 PM BIAS BINDING FOLDER XR CHEST 1 VW STAT 09/06/2020 10:34 Chest pain, Results fo r this AM BIAS BINDING FOLDER unspecified type procedure a re in the results section. LAB ONLY COVID Routine 09/06/2020 10:13 Chest pain in Results for this INTERPRETATION AM BIAS BINDING FOLDER adult procedure are in the results section. COVID-19 (ID NOW RAPID STAT 09/06/2020 10:13 Chest pain in Results for this TESTING) AM BIAS BINDING FOLDER adult procedure are i n the results section. N-TERMINAL PRO-BNP STAT 09/06/2020 10:13 Chest pain in Resu lts for this AM BI[employer] B[employer]ING FOLDER adult procedure are i n the results section. ACTIVATED PARTIAL STAT 09/06/2020 10:13 Chest pain, Result s for this THRMPLAS CHRISTIANO AM BIAS BINDING FOLDER unspecified type procedure a re in the results section. PROTHROMBIN TIME / INR STAT 09/06/2020 10:13 Chest pain, R esults for this AM BIAS BINDING FOLDER unspecified type procedure a re in the results section. GLYCOSYLATED STAT Add-On 09/06/2020 10:13 Results for this HEMOGLOBIN (A1C) AM BIAS BINDING FOLDER procedure a re in the results section. CBC WITH DIFF STAT 09/06/2020 10:13 Chest pain, Results fo r this AM BIAS BINDING FOLDER unspecified type procedure a re in the results section. COMP. METABOLIC PANEL STAT 09/06/2020 10:13 Chest pain, Re sults for this ([id number]) AM BIAS BINDING FOLDER unspecified type procedure a re in the results section. TROPONIN I STAT 09/06/2020 10:13 Chest pain, Results for this AM BIAS BINDING FOLDER unspecified type procedure a re in the results section. MAGNESIUM STAT Add-On 09/06/2020 10:13 Results for this AM BIAS BINDING FOLDER procedure are i n the results section. LIPASE STAT 09/06/2020 10:13 Chest pain, Results for this AM BI[employer] BINDING FOLDER unspecified type procedure a re in the results section. HB ECG ROUTINE & STAT 09/06/2020 10:00 Chest pain, RHYTHM STRIP AM BIAS BINDING FOLDER unspecified type NOTICE OF PRIVACY Routine 09/06/2020 9:50 PRACTICES AM BIAS BINDING FOLDER documented in this encounter Results POCT GLUCOSE (AUTOMATED) (09/09/2020 8:12 AM BIAS BINDING FOLDER) Pathologist Sig nature POCT GLU 132 (H) 70 - 110 mg/dL [facility] Specimen Blood Performing Organization Address City/State/Zipcode Phone Number [facility] CLIA: [id number] [place], [place] [id number] [place] [address] MAGNESIUM (09/09/2020 3:20 AM BIAS BINDING FOLDER) Pathologist Sig [employer] MAGNESIUM 2.2 1.7 - 2.4 mg/dL [facility] Specimen Blood - ARM, LEFT Performing Organization Address City/State/Zipcode Phone Number [facility] CLIA: [id number] [place] [address] [place] [address] BASIC METABOLIC PANEL (NA, K, CL, CO2, GLUCOSE, BUN, CREATININE, CA) (09/09/2020 3:20 AM BIAS BINDING FOLDER) [facility] NA 132 (L) 135 - 145 [facility] mmol/L SERVICES K 4.3 3.5 - 5.0 [facility] mmol/L SERVICES CL 103 98 - 108 mmol/L [facility] CO2 TOTAL 24 23 - 31 mmol/L [facility] AGAP 5 2 - 16 [facility] BUN 22 7 - 23 mg/dL [facility] GLUCOSE 153 (H) 70 - 110 mg/dL [facility] CREATININE 0.83 0.60 - 1.25 [facility] mg/dL SERVICES CALCIUM 8.8 8.6 - 10.6 [facility] mg/dL SERVICES eGFR Calculation 102.1 mL/min/1.73m2 [facility] (Non- SERVICES [place]) eGFR Calculation 123.7 mL/min/1.73m2 [facility] () SERVICES Specimen Blood - ARM, LEFT Narrative Performed At Association of Glomerular Filtration Rate (GFR) and St aging [facility] of Kidney Disease* + [...] . Performing Organization Address City/State/Zipcode Phone Number [facility] CLIA: [id number] [place] [id number] [place] [address] POCT GLUCOSE (AUTOMATED) (09/08/2020 9:08 PM BIAS BINDING FOLDER) Pathologist Sig [facility] POCT GLU 173 (H) 70 - 110 mg/dL [facility] Specimen Blood Performing Organization Address City/[facility] Phone Number [facility] CLIA: [id number] [place] [address] [place] [address] POCT GLUCOSE (AUTOMATED) (09/08/2020 4:49 PM BIAS BINDING FOLDER) Pathologist Sig [facility] POCT GLU 169 (H) 70 - 110 mg/dL [facility] Specimen Blood Performing Organization Address [facility] Phone Number [facility] CLIA: [id number] [place] [address] [place] [address] POCT GLUCOSE (AUTOMATED) (09/08/2020 12:24 PM BIAS BINDING FOLDER) Pathologist Sig [facility] POCT GLU 266 (H)Comment: 70 - 110 mg/dL [facility] Specimen Blood Performing Organization Address [facility] Phone Number [facility] CLIA: [id number] [place] [address] [place] [address] MAGNESIUM (09/08/2020 5:11 AM BIAS BINDING FOLDER) Pathologist Sig [facility] MAGNESIUM 2.3 1.7 - 2.4 mg/dL [facility] Specimen Blood - VENOUS Performing Organization Address City/[facility] Phone Number [facility] CLIA: [id number] [place] [address] [place] [address] BASIC METABOLIC PANEL (NA, K, CL, CO2, GLUCOSE, BUN, CREATININE, CA) (09/08/2020 5:11 AM BIAS BINDING FOLDER) Pathologist Sig nature NA 135 135 - 145 [facility] mmol/L SERVICES K 4.3 3.5 - 5.0 [facility] mmol/L SERVICES CL 104 98 - 108 mmol/L [facility] CO2 TOTAL 24 23 - 31 mmol/L [facility] AGAP 7 2 - 16 [facility] BUN 21 7 - 23 mg/dL [facility] GLUCOSE 145 (H) 70 - 110 mg/dL [facility] CREATININE 0.82 0.60 - 1.25 [facility] mg/dL SERVICES CALCIUM 8.6 8.6 - 10.6 [facility] mg/dL SERVICES eGFR Calculation 103.5 mL/min/1.73m2 [facility] (Non- SERVICES [place]) eGFR Calculation 125.5 mL/min/1.73m2 [facility] () SERVICES Specimen Blood - VENOUS Narrative Performed At Association of Glomerular Filtration Rate (GFR) and St aging [facility] of Kidney Disease* + + +------- ------ + | GFR (mL/min/1.73 m2) | With Kidney Damage | Wi out Kidney Damage + + +------- ------ + [...] in imaging tests) . Performing Organization Address City/[facility] Phone Number [facility] CLIA: [id number] [place] [address] [place] [address] POCT GLUCOSE (AUTOMATED) (09/07/2020 6:05 PM BIAS BINDING FOLDER) [facility] [place] POCT GLU 126 (H) 70 - 110 mg/dL [facility] Specimen Blood Performing Organization Address [facility] Phone Number [facility] CLIA: [id number] [place] [address] [place] [address] [place] POCT GLUCOSE (AUTOMATED) (09/07/2020 4:06 PM BIAS BINDING FOLDER) Pathologist Sig nature POCT GLU 128 (H) 70 - 110 mg/dL [facility] Specimen Blood Performing Organization Address City/[facility] Phone Number [facility] CLIA: [id number] [place] [address] [phone] [address] [facility] POCT GLUCOSE (AUTOMATED) (09/07/2020 12:15 PM BIAS BINDING FOLDER) Pathologist Sig nature POCT GLU 175 (H) 70 - 110 mg/dL [facility] Specimen Blood Performing Organization Address City/[facility] Phone Number [facility] CLIA: [id number] [place] [address] [phone] 301 [facility] POCT ACT LOW RANGE (09/07/2020 11:03 AM BIAS BINDING FOLDER) Pathologist Sig nature ACTLR 253 (H) 89 - 169 Seconds [facility] Specimen Blood Performing Organization Address City/[facility] Phone Number [facility] CLIA: [id number] [place] [address] [phone] 301 [facility] POCT ACT LOW RANGE (09/07/2020 10:47 AM BIAS BINDING FOLDER) Pathologist Sig nature ACTLR 359 (H) 89 - 169 Seconds [facility] Specimen Blood Performing Organization Address [facility] Phone Number [facility] CLIA: [id number] [place] [address] [phone] 301 [facility] POCT ACT LOW RANGE (09/07/2020 10:40 AM BIAS BINDING FOLDER) Pathologist Sig nature ACTLR 167 89 - 169 Seconds [facility] Specimen Blood Performing Organization Address City/[facility]/Zipcode Phone Number [facility] CLIA: [id number] [place] [address] [phone] [facility] LOW-DENSITY LIPOPROTEIN, DIRECT (09/07/2020 3:10 AM BIAS BINDING FOLDER) Pathologist Sig nature dLDL Chol 39 <130 mg/dL [facility] Specimen Blood - VENOUS Performing Organization Address City/[facility]/Zipcode Phone Number [facility] CLIA: [id number] [place] [address] [phone] 301 [facility] ACTIVATED PARTIAL THRMPLAS CHRISTIANO (09/07/2020 3:10 AM BIAS BINDING FOLDER) Pathologist Sig [facility] APTT Patient 45 (H) 26 - 36 Seconds [facility] Specimen Blood - VENOUS Performing Organization Address City/[facility]/Zipcode Phone Number [facility] CLIA: [id number] [place] [address] [phone] 301 [facility] MAGNESIUM (09/07/2020 3:10 AM BIAS BINDING FOLDER) Pathologist [facility] [employer] MAGNESIUM 2.1 1.7 - 2.4 mg/dL [facility] Specimen Blood - VENOUS Performing Organization Address [facility] Phone Number [facility] CLIA: [id number] [place] [address] [phone] 301 [facility] BASIC METABOLIC PANEL (NA, K, CL, CO2, GLUCOSE, BUN, CREATININE, CA) (09/07/2020 3:10 AM BIAS BINDING FOLDER) Pathologist Sig [employer] NA 134 (L) 135 - 145 [facility] mmol/L SERVICES K 4.0 3.5 - 5.0 [facility] mmol/L SERVICES CL 103 98 - 108 mmol/L [facility] CO2 TOTAL 25 23 - 31 mmol/L [facility] AGAP 6 2 - 16 [facility] BUN 25 (H) 7 - 23 mg/dL [facility] GLUCOSE 187 (H) 70 - 110 mg/dL [facility] CREATININE 0.79 0.60 - 1.25 [facility] mg/dL SERVICES CALCIUM 8.7 8.6 - 10.6 [facility] mg/dL SERVICES eGFR Calculation 108.1 mL/min/1.73m2 [facility] (Non- SERVICES [place]) eGFR Calculation 131.0 mL/min/1.73m2 [facility] () SERVICES Specimen Blood - VENOUS Narrative Performed At Association of Glomerular Filtration Rate (GFR) and St aging [facility] of Kidney Disease* + [...] in imaging tests) . Performing Organization Address City/[facility]/Zipcode Phone Number [facility] CLIA: [id number] [place] [address] [place] [address] LIPID PANEL (00476)(TOTAL CHOLESTEROL, TRIGLYCERIDES, HDL) (09/07/2020 3:10 AM BIAS BINDING FOLDER) CHOL 114 (L) 120 - 200 [facility] mg/dL SERVICES HDL 33 (L) >40 mg/dL [facility] HDLC RATIO 3.5 <=5.0 [facility] TRIG 478 (H) 30 - 170 mg/dL [facility] LDL CHOL Comment: Unable to [facility] calculate LDL due to SERVICES elevated triglyceride level greater than 400 mg/dL. VLDL 96 (H) 5 - 60 mg/dL [facility] Specimen Blood - VENOUS Performing Organization Address City/[facility]/Zipcode Phone Number [facility] CLIA: [id number] [place] [address] [place] [address] TROPONIN I (09/06/2020 10:38 PM BIAS BINDING FOLDER) Pathologist Sig nature TROPONIN I 0.007 <=0.034 ng/mL [facility] Specimen Blood - VENOUS Narrative Performed At Equal or Less than 0.034 ng/ml---Normal [facility] Note: Cardiac troponin begins [...] patient's use of biotin. Performing Organization Address City/[facility]/Zipcode Phone Number [facility] CLIA: [id number] [place] [address] [phone] [facility] POCT GLUCOSE (AUTOMATED) (09/06/2020 10:35 PM BIAS BINDING FOLDER) Pathologist Sig nature POCT GLU 240 (H) 70 - 110 mg/dL [facility] Specimen Blood Performing Organization Address [facility] Phone Number [facility] CLIA: [id number] [place] [address] [place] [address] [place] ACTIVATED PARTIAL THRMPLAS CHRISTIANO (09/06/2020 7:22 PM BIAS BINDING FOLDER) Pathologist Sig nature APTT Patient 43 (H) 26 - 36 Seconds [facility] Specimen Blood - VENOUS Performing Organization Address [facility] Phone Number [facility] CLIA: [id number] [place] [address] [place] [address] GALV/CLC ONLY - URINE DRUG (IMMUNOASSAY) - COMPREHENSIVE DRUG SCREEN (09/06/2020 7:22 PM BIAS BINDING FOLDER) AMPHET Negative Negative [facility] KASSI U Negative Negative [facility] BENZO U Negative Negative [facility] Cocaine Metabolite Negative Negative [facility] METHADONE Negative Negative [facility] OPIATES Presumptive Negative [facility] Positive (A) SERVICES PCP Negative Negative [facility] THC Negative Negative [facility] Specimen Urine - URINE, CLEAN CATCH Narrative Performed At Urine Drug Cutoff Ranges [facility] Cocaine: 150 ng/mL Benzodiazepines: 200 ng/mL Methadone: 300 ng/mL Amphetamine: 1,000 ng/mL Opiates: 300 ng/mL Cannabinoids: 50 ng/mL Phencyclidine: 25 ng/mL Barbiturates: 200 ng/mL The results are to be used only for medical (i.e., treatment) purposes. Unconfirmed screening results mus t not be used for non-medical purposes (e.g., employment yaima ting, legal testing). Performing Organization Address City/[facility] Phone Number [facility] CLIA: [id number] [place] [address] [phone] [facility] POCT GLUCOSE (AUTOMATED) (09/06/2020 4:28 PM BIAS BINDING FOLDER) [facility] POCT GLU 140 (H) 70 - 110 mg/dL [facility] Specimen Blood Performing Organization Address [facility] Phone Number [facility] CLIA: [id number] [place] [address] [place] [address] [place] TROPONIN I (09/06/2020 3:17 PM BIAS BINDING FOLDER) [facility] TROPONIN I 0.004 <=0.034 ng/mL [facility] Specimen Blood - LINE, VENOUS Narrative Performed At Equal or Less than 0.034 ng/ml---Normal [facility] Note: Cardiac troponin begins [...] patient's use of biotin. Performing Organization Address [facility] Phone Number [facility] CLIA: [id number] [place] [address] [phone] 301 [facility] XR CHEST 1 VW (09/06/2020 10:34 AM BIAS BINDING FOLDER) Specimen Narrative Performed At This result has an attachment that is no t available. HISTORY: Chest pain. PACS/VR/DOSE TECHNIQUE: Portable AP erect view of the chest is obta ined. Comparison made with 09/01/2020 study. FINDINGS: No acute pneumonia. No pneumothorax or pleur al effusion or pulmonary congestion detected. Cardiac size is within normal limits. CONCLUSIONS: No signs of acute cardiopulmonary disease . Procedure Note [facility], Radiant Results Inft User - 2020 10:42 AM BIAS BINDING FOLDER HISTORY: Chest pain. TECHNIQUE: Portable AP erect view of the chest is obtained. Comparison made with 09/01/2020 study. FINDINGS: No acute pneumonia. No pneumot horax or pleural effusion or pulmonary congestion detected. Cardiac s ize is within normal limits. CONCLUSIONS: No signs of acute cardiopul monary disease. Performing Organization Address [facility] Phone Number PACS/VR/DOSE MAGNESIUM (09/06/2020 10:13 AM BIAS BINDING FOLDER) Pathologist Sig nature MAGNESIUM 1.9 1.7 - 2.4 mg/dL [facility] Specimen Blood - VENOUS Performing Organization Address [facility] Phone Number [facility] CLIA: [id number] [place] [address] GLYCOSYLATED HEMOGLOBIN (A1C) (09/06/2020 10:13 AM BIAS BINDING FOLDER) Pathologist Sig nature HGB A1C 8.8 (H) 4.0 - 6.0 % [facility] Specimen Blood - VENOUS Narrative Performed At %A1C (NGSP) Interpretation (ADA) [facility] 4.8-5.6 Normal or (Non-Diabetic Ra nge) 5.7-6.4 Increased Risk (Pre-Diabet ic) >6.5 Diabetes Indicated Performing Organization Address [facility] Phone Number [facility] CLIA: [id number] [place] [address] LAB ONLY COVID INTERPRETATION (09/06/2020 10:13 AM BIAS BINDING FOLDER) COVID DMT Interpretation/Recommendations: [facility] Interpretation SERVICES Molecular NAAT Tests for Active Infection with the ZAIN S-CoV-2 Virus: This patient has a history o f testing negative on multiple occasions for the SARS-CoV-2 virus that causes COVID-19 illness, with no prior history of a positive result. The current test results are also negative. This most likely i ndicates that the patient does not have an active infection with the SARS-CoV-2 virus, especially if all of these tests coincide with the patient's current presentation. Lux jojo, infection is not comple tely ruled out as the false negative rate for molecular NAAT testing using a nasopharyngeal sample can be up to 30%, mostly dependent on the timing of sample collection in re lation to illness onset and any deficiencies in sampling techniques. If the patient continues to have persistent or worsening symptoms concerning for COVID- 19 illness, a repeat NAAT test (PCR, Rapid ID Now, etc.) should be perform ed, at which time the SARS-CoV-2 virus - if present - may have reached a detectable viral load (usually peaking by the end [...] COVID-19 testing the patient has had at [facility], including molecular NAAT testing (more commonly known as PCR testing and Rapid ID Now testing) and antibody testing. It does not take i nto account any testing that a patient has had outside of the [facility] medical record. COVID Results SARS-CoV-2 Rapid ID NOW (no units) [facility] Date Value SERVICES 09/06/2020 Not Detected 09/01/2020 Not Detected 06/02/2020 Not Detected 05/23/2020 Not Detected Specimen Swab - NASOPHARYNGEAL SWAB Performing Organization Address City/State/Zipcode Phone Number [facility] CLIA: [id number] [place] [address] [place] [address] COVID-19 (ID NOW RAPID TESTING) (09/06/2020 10:13 AM BIAS BINDING FOLDER) SARS-CoV-2 Rapid ID Not Detected Not Detected [facility] Specimen Swab - NASOPHARYNGEAL SWAB Narrative Performed At ID NOW COVID-19 Assay is an isothermal nucleic [facility] acid amplification test intended for the qualitative detection of nucleic acid from SARS-CoV-2 viral RNA in nasopharyngeal ([employer]) specimens. It is used under Emergency Use [...] testing if clinically indicated. Performing Organization Address City/State/Zipcode Phone Number [facility] CLIA: [id number] [place] [address] [place] [address] N-TERMINAL PRO-BNP (09/06/2020 10:13 AM BIAS BINDING FOLDER) Pathologist Sig nature NT-proBNP 354 (H) <=125 pg/mL [facility] Specimen Blood - VENOUS Narrative Performed At Biotin has been reported to cause a negative [facility] bias, interpret results relative to patient's use of biotin. Performing Organization Address City/State/Zipcode Phone Number [facility] CLIA: [id number] [place] [address] CBC WITH DIFF (09/06/2020 10:13 AM BIAS BINDING FOLDER) Pathologist Sig [facility] WBC 8.98 4.20 - 10.70 [facility] 10*3/L [facility] RBC 4.76 4.26 - 5.52 [facility] 10*6/L HOSPITAL LAB[facility]ORY HGB 14.7 12.2 - 16.4 [facility] g/dL HOS[facility]ITAL [facility] HCT 44.0 38.4 - 49.3 % [facility] MCV 92.4 81.7 - 95.6 fL [facility] MCH 30.9 26.1 - 32.7 pg [facility] MCHC 33.4 31.2 - 35.0 [facility] g/dL [facility] RDW-SD 40.6 38.5 - 51.6 fL [facility] RDW-CV 11.9 (L) 12.1 - 15.4 % [facility] PLT 264 150 - 328 [facility] 10*3/L [facility] MPV 10.5 9.8 - 13.0 fL [facility] NRBC/100 WBC 0.0 0.0 - 10.0 /100 [facility] WBCs [facility] NRBC x10^3 <0.01 10*3/L [facility] GRAN MAT (NEUT) % 57.1 % [facility] IMM GRAN % 0.60 % [facility] LYMPH % 30.0 % [facility] MONO % 10.1 % [facility] EOS % 1.9 % [facility] BASO % 0.3 % [facility] GRAN MAT x10^3(ANC) 5.13 1.99 - 6.95 [facility] 10*3/uL [facility]OSPITAL [facility] IMM GRAN x10^3 0.05 0.00 - 0.06 [facility] 10*3/uL [facility]ITAL [facility] LYMPH x10^3 2.69 1.09 - 3.23 [facility] 10*3/uL [facility] MONO x10^3 0.91 0.36 - 1.02 [facility] 10*3/uL [facility]ITAL [facility] EOS x10^3 0.17 0.06 - 0.53 [facility] 10*3/uL [facility]ITAL [facility] BASO x10^3 0.03 0.01 - 0.09 [facility] 10*3/uL [facility]ITAL [facility] Specimen Blood - VENOUS Performing Organization Address City/State/Zipcode Phone Number [facility] CLIA: [id number] [place] [address] LIPASE, SERUM (09/06/2020 10:13 AM BIAS BINDING FOLDER) Pathologist Sig [facility] LIPASE 88 0 - 220 U/L [facility] Specimen Blood - VENOUS Performing Organization Address City/State/Zipcode Phone Number [facility] CLIA: [id number] [place] [address] LABORATORY [address] [facility] COMP. METABOLIC PANEL (38654) (09/06/2020 10:13 AM BIAS BINDING FOLDER) Pathologist Sig [facility] NA 134 (L) 135 - 145 [facility] mmol/L [facility] K 4.4 3.5 - 5.0 [facility] mmol/L [facility] CL 99 98 - 108 mmol/L [facility] CO2 TOTAL 29 23 - 31 mmol/L [facility] AGAP 6 2 - 16 [facility] BUN 17 7 - 23 mg/dL [facility] GLUCOSE 232 (H) 70 - 110 mg/dL [facility] CREATININE 0.79 0.60 - 1.25 [facility] mg/dL [facility] TOTAL BILI 0.8 0.1 - 1.1 mg/dL [facility] CALCIUM 9.0 8.6 - 10.6 [facility] mg/dL [facility] T PROTEIN 7.1 6.3 - 8.2 g/dL [facility] ALBUMIN 4.3 3.5 - 5.0 g/dL [facility] ALK PHOS 66 34 - 122 U/L [facility] ALTv 38 5 - 50 U/L [facility] AST(SGOT) 29 13 - 40 U/L [facility] eGFR Calculation 108.1 mL/min/1.73m2 [facility] (Non[facility] [place]) eGFR Calculation 131.0 mL/min/1.73m2 [facility] () [facility] Specimen Blood - VENOUS Narrative Performed At Association of Glomerular Filtration Rate (GFR) [facility] and Staging of Kidney Disease* [...] abnormalities in imaging tests). Performing Organization Address [facility] Phone Number [facility]: [id number] [place] [address] LABORATORY [address] PROTHROMBIN TIME / INR (09/06/2020 10:13 AM BIAS BINDING FOLDER) PROTIME PATIENT 13.2 12.0 - 14.7 [facility] LABORATORY INR 1.1Comment: Normal [facility] INR <1.1; Warfarin [facility] Therapeutic range LABORATORY 2.0 to 3.0 or 2.5 to 3.5, depending upon the indications. Specimen Blood - VENOUS Performing Organization Address [facility] Phone Number [facility] CLIA: [id number] [place] [address] LABORATORY [facility] [address] aPTT (09/06/2020 10:13 AM BIAS BINDING FOLDER) Pathologist [facility] nature APTT Patient 29 23 - 38 Seconds [facility] Specimen Blood - VENOUS Narrative Performed At [facility] patient population mean normal value [facility] for aPTT is 30 seconds. Performing Organization Address [facility] Phone Number [facility] CLIA: [id number] [place] [address] [place] [address] Drive TROPONIN I (09/06/2020 10:13 AM BIAS BINDING FOLDER) [facility] nature TROPONIN I <0.012 <=0.034 ng/mL [facility] Specimen Blood - VENOUS Narrative Performed At Equal or Less than 0.034 ng/ml---Normal [facility] Note: Cardiac troponin begins to rise [...] biotin. Performing Organization Address City/State/Zipcode Phone Number [facility] CLIA: [id number] [place] [address] documented in this encounter Visit Diagnoses Diagnosis Unstable angina - Primary Intermediate coronary syndrome Chest pain, unspecified type documented in this encounter Administered Medications Medication Order MAR Action Action Date Dose Rate Site amLODIPine (NORVASC) tablet 5 mg Given 09/09/2020 8:49 AM BIAS BINDING FOLDER 5 mg 5 mg, Oral, DAILY, First dose on Fri09/08/20 at 1015, Until Discontinued, Routine Given 09/08/2020 10:59 AM BIAS BINDING FOLDER 5 mg aspirin chewable tablet 81 mg Given 09/09/2020 8:49 AM BIAS BINDING FOLDER 81 mg 81 mg, Oral, DAILY, First dose on Fri09/07/20 at 0900, Until Discontinued, Routine Given 09/08/2020 9:05 AM BIAS BINDING FOLDER 81 mg Given 09/07/2020 8:43 AM BIAS BINDING FOLDER 81 mg atorvastatin (LIPITOR) tablet 80 mg Given 09/08/2020 8:02 PM BIAS BINDING FOLDER 80 mg 80 mg, Oral, QHS, First dose on Fri09/06/20 at 2100, Until Discontinued, Routine Given 09/07/2020 7:46 PM BIAS BINDING FOLDER 80 mg Given 09/06/2020 8:10 PM BIAS BINDING FOLDER 80 mg clopidogreL (PLAVIX) tablet 75 mg Given 09/09/2020 8:49 AM BIAS BINDING FOLDER 75 mg 75 mg, Oral, DAILY, First dose on Fri09/07/20 at 0900, Until Discontinued, Routine Given 09/08/2020 9:05 AM BIAS BINDING FOLDER 75 mg Given 09/07/2020 8:43 AM BIAS BINDING FOLDER 75 mg fenofibrate micronized (LOFIBRA) capsule 67 Given 09/09/2020 8:49 AM BIAS BINDING FOLDER 67 mg mg 67 mg, Oral, DAILY, First dose on Fri09/07/20 at 0900, Until Discontinued, Routine Given 09/08/2020 9:06 AM BIAS BINDING FOLDER 67 mg Given 09/07/2020 8:44 AM BIAS BINDING FOLDER 67 mg fluticasone propionate 50 mcg/actuation Given 09/09/2020 8:49 A M BIAS BINDING FOLDER 2 Sprays nasal spray 2 Phelps 2 Phelps, Nasal, DAILY, First dose on Fri09/07/20 at 0900, Until Discontinued, Routine Given 09/08/2020 9:07 AM BIAS BINDING FOLDER 2 Sprays Given 09/07/2020 12:30 PM BIAS BINDING FOLDER 2 Sprays gabapentin (NEURONTIN) tablet 600 mg 600 mg, Oral, TID, First dose (after last modification ) on Fri09/09/20 at 1400, Until Discontinued, Routine heparin (porcine) injection Given 09/08/2020 8:02 PM BIAS BINDING FOLDER 5,000 Units Abdomen-SC 5,000 Units 5,000 Units, Subcutaneous, Q12H, First dose on Fri09/08/20 at 2000, Until Discontinued, Routine isosorbide mononitrate (IMDUR) 24 hr tablet Given 08/25 8:49 AM BIAS BINDING FOLDER 120 mg 120 mg 120 mg, Oral, DAILY, First dose on Fri09/07/20 at 0900, Until Discontinued, Routine Given 09/08/2020 9:06 AM BIAS BINDING FOLDER 120 mg Given 09/07/2020 8:44 AM BIAS BINDING FOLDER 120 mg lidocaine (LIDODERM) 5 % (700 mg/patch) Given 09/09/2020 9:00 A M BIAS BINDING FOLDER 1 Patch patch 1 Patch 1 Patch, Topical, Administer over 12 Hours, DAILY, First dose (after last reorder) on Fri09/07/20 at 2130, Until Discontinued, Routine Given 09/08/2020 9:08 AM BIAS BINDING FOLDER 1 Patch Given 09/07/2020 9:52 PM BIAS BINDING FOLDER 1 Patch lisinopriL (PRINIVIL,ZESTRIL) tablet 5 m g Given 09/09/2020 8:49 AM BIAS BINDING FOLDER 5 mg 5 mg, Oral, DAILY, First dose (after last modification) on Fri09/08/20 at 0900, Until Discontinued, Routine Given 09/08/2020 9:05 AM BIAS BINDING FOLDER 5 mg LORazepam (ATIVAN) tablet 0.5 mg Given 09/08/2020 5:13 PM BIAS BINDING FOLDER 0.5 mg 0.5 mg, Oral, Q4HPRN, Starting Fri09/07/20 at 2115, Until Discontinued, Routine, Anxiety Given 09/07/2020 9:52 PM BIAS BINDING FOLDER 0.5 mg metoprolol tartrate (LOPRESSOR) tablet 100 Given 09/09/2020 8:49 AM BIAS BINDING FOLDER 100 mg mg 100 mg, Oral, Q12H, First dose on Fri09/07/20 at 2000, Until Discontinued, Routine Given 09/08/2020 8:04 PM BIAS BINDING FOLDER 100 mg Given 09/08/2020 9:05 AM BIAS BINDING FOLDER 100 mg morpHINE injection 2 mg Given 09/09/2020 8:54 AM BIAS BINDING FOLDER 2 mg 2 mg, Slow IV Push, Q4HPRN, Starting Fri09/06/20 at 1536, Until Discontinued, Routine, Pain (scale 7-10), Chest pain Given 09/09/2020 4:20 AM BIAS BINDING FOLDER 2 mg Given 09/09/2020 12:05 AM BIAS BINDING FOLDER 2 mg pantoprazole (PROTONIX) EC tablet 40 mg Given 09/09/2020 8:49 AM BIAS BINDING FOLDER 40 mg 40 mg, Oral, DAILY, First dose on Fri09/07/20 at 0900, Until Discontinued, Routine Given 09/08/2020 9:05 AM BIAS BINDING FOLDER 40 mg Given 09/07/2020 8:42 AM BIAS BINDING FOLDER 40 mg ranolazine (RANEXA) 12 hr tablet 500 mg Given 09/09/2020 3:15 AM BIAS BINDING FOLDER 500 mg 500 mg, Oral, Q12H ABX, First dose on Fri09/07/20 at 1400, Until Discontinued, Routine Given 09/08/2020 2:32 PM BIAS BINDING FOLDER 500 mg Given 09/08/2020 1:06 AM BIAS BINDING FOLDER 500 mg Sliding Scale Insulin - Lispro Given 09/08/2020 9:13 PM BIAS BINDING FOLDER 1 U nits Abdomen-SC (HumaLOG) + Fsbg Testing Subcutaneous, TID MEALS+HS, First dose (after last modification) on Fri09/08/20 at 1200, Until Discontinued, Routine Given 09/08/2020 12:37 PM BIAS BINDING FOLDER 2 Units Left Upper Arm-SC Medication Order MAR Action Action Date Dose Rate Site adenosine diagnostic Restarted 09/07/2020 11:01 AM 180 mcg/kg/min 41 7.6 mL/hr (ADENOSCAN) injection BIAS BINDING FOLDER Intravenous, CONTINUOUS PRN, Starting Cathy 09/07/20 at 1057, Until Cathy 09/07/20 at 1103, Routine New Bag 09/07/2020 10:57 AM BIAS BINDING FOLDER 140 mcg/kg/min 324.8 mL/hr clonazePAM (KLONOPIN) tablet 0.5 mg Given 09/07/2020 6:27 PM BIAS BINDING FOLDER 0.5 mg 0.5 mg, Oral, TIDPRN, 2 doses, Starting [facility] 09/06/20 at 1943, Until Cathy 09/07/20 at 1827, Routine, anxiety Given 09/06/2020 8:10 PM BIAS BINDING FOLDER 0.5 mg FENTanyl PF (SUBLIMAZE (PF)) injection Given 09/07/2020 10:05 AM BIAS BINDING FOLDER 25 mcg Slow IV Push, TITRATE - FOR PROCEDURE USE, 1 dose, Starting Cathy 09/07/20 at 1005, Until Cathy 09/07/20 at 1005, Routine FENTanyl PF (SUBLIMAZE (PF)) injection Given 09/07/2020 10:19 AM BIAS BINDING FOLDER 25 mcg Slow IV Push, TITRATE - FOR PROCEDURE USE, 1 dose, Starting Cathy 09/07/20 at 1019, Until Cathy 09/07/20 at 1019, Routine FENTanyl PF (SUBLIMAZE (PF)) injection Given 09/07/2020 10:56 AM BIAS BINDING FOLDER 25 mcg Slow IV Push, TITRATE - FOR PROCEDURE USE, 1 dose, Starting Cathy 09/07/20 at 1056, Until Cathy 09/07/20 at 1056, Routine FENTanyl PF (SUBLIMAZE (PF)) injection Given 09/07/2020 11:07 AM BIAS BINDING FOLDER 25 mcg Slow IV Push, TITRATE - FOR PROCEDURE USE, 1 dose, Starting Cathy 09/07/20 at 1107, Until Cathy 09/07/20 at 1107, Routine FENTanyl PF (SUBLIMAZE (PF)) injection Given 09/07/2020 11:34 AM BIAS BINDING FOLDER 25 mcg Slow IV Push, TITRATE - FOR PROCEDURE USE, 1 dose, Starting Cathy 09/07/20 at 1134, Until Cathy 09/07/20 at 1134, Routine gabapentin (NEURONTIN) capsule 400 mg Given 09/09/2020 8:49 AM BIAS BINDING FOLDER 400 mg 400 mg, Oral, TID, First dose on Fri09/06/20 at 2230, Until Discontinued, Routine Given 09/08/2020 8:02 PM BIAS BINDING FOLDER 400 mg Given 09/08/2020 2:32 PM BIAS BINDING FOLDER 400 mg heparin (1,000 unit/mL, 10 mL vial) for Given 09/06/19 8:21 PM BIAS BINDING FOLDER 3,000 Units Rebolusing FOR REBOLUSING, Starting Fri09/06/20 at 1154, Until Fri09/07/20 at 1254, Routine, Dosing based on aPTT testing parameters (refer to continuous heparin drip order)., heparin 1,000 unit/mL injection Given 09/07/2020 10:47 AM BIAS BINDING FOLDER 8,000 Units Slow IV Push, TITRATE - FOR PROCEDURE USE, 1 dose, Starting Fri09/07/20 at 1047, Until Fri09/07/20 at 1047, Routine heparin 1000 unit/mL injection Soln Given 09/06/2020 12:15 PM CS T 4,000 Units 4,000 Units 4,000 Units, Intravenous, ONCE, 1 dose, Fri09/06/20 at 1200, Routine heparin 25,000 Units/250 mL (Premixed Ba g) in 0.45 % NS Rate 09/07/2020 1,100 11 1,000 Units/hr (10 mL/hr), IV Infusion, TITRATE, Parameters in Admin. Change 4:25 AM BIAS BINDING FOLDER Units/hr mL/hr Instr., Starting Fri09/06/20 at 1254, CAUTION - If LMWH given in ER, AVOID bolus and start next dose/drip 12 hrs after ER dosage. Must program rate using programmable infusion pump. Check with the orderi ng provider first prior to any administration should the patient be on existing/additional anticoagulant therapy. Range, Dosing and Testing : _ [facility] - aPTT < 35: Bolus 500 [...] once therapeutic levels are reached. _ FOR [facility] ONLY - aPTT < 40: Bolus [...] BOLUS OR INITIAL INFUSION RATE., Dose/Rate Verify 09/06/2020 3:05 PM BIAS BINDING FOLDER 1,000 Units/hr 10 mL/hr New Bag 09/06/2020 12:16 PM BIAS BINDING FOLDER 1,000 Units/hr 10 mL/hr HYDROcodone-acetaminophen (NORCO) 10-325 Given 09/07/2020 4 :26 AM BIAS BINDING FOLDER 1 tablet mg tablet 1 tablet 1 tablet, Oral, Q6HPRN, 2 doses, Starting 09/06/20 at 2216, Until Cathy 09/07/20 at 0426, Routine, Pain (scale 7-10) Given 09/06/2020 10:32 PM BIAS BINDING FOLDER 1 tablet HYDROcodone-acetaminophen (NORCO) 10-325 Given 09/09/2020 3 :13 AM BIAS BINDING FOLDER 1 tablet mg tablet 1 tablet 1 tablet, Oral, Q6HPRN, Starting Cathy 09/07/20 at 0755, Until 09/09/20 at 0754, Routine, Pain (scale 7-10) Given 09/08/2020 9:13 PM BIAS BINDING FOLDER 1 tablet Given 09/08/2020 4:37 PM BIAS BINDING FOLDER 1 tablet lidocaine (LIDODERM) 5 % (700 mg/patch) Given 09/07/2020 5:08 A M BIAS BINDING FOLDER 1 Patch patch 1 Patch 1 Patch, Topical, Administer over 12 Hours, ONCE, 1 dose, Cathy 09/07/20 at 0600, Routine lidocaine 1% (PF) (XYLOCAINE) injection Given 09/07/2020 10:15 AM BIAS BINDING FOLDER 10 mL Infiltration, TITRATE - FOR PROCEDURE USE, 1 dose, Starting Cathy 09/07/20 at 1015, Until Cathy 09/07/20 at 1015, Routine lisinopriL (PRINIVIL,ZESTRIL) tablet 2.5 mg Given 09/07/2020 8:43 AM BIAS BINDING FOLDER 2.5 mg 2.5 mg, Oral, DAILY, First dose on Cathy 09/07/20 at 0900, Until Discontinued, Routine lisinopriL (PRINIVIL,ZESTRIL) tablet 2.5 mg Given 09/07/2020 1:42 PM BIAS BINDING FOLDER 2.5 mg 2.5 mg, Oral, ONCE NOW, 1 dose, Cathy 09/07/20 at 1400, Routine LORazepam (ATIVAN) tablet 0.5 mg Given 09/07/2020 5:08 AM BIAS BINDING FOLDER 0.5 mg 0.5 mg, Oral, ONCE, 1 dose, Cathy 09/07/20 at 0600, Routine magnesium sulfate in D5W 1 gram/100 mL RTU IV Given 09/06/19 4:13 PM BIAS BINDING FOLDER 1 g Piggyback 1 g 1 g, IV Piggyback, ONCE, 1 dose, [facility] 09/06/20 at 1615, 100 mL midazolam (VERSED) injection Given 09/07/2020 10:04 AM BIAS BINDING FOLDER 1 mg IV Push, TITRATE - FOR PROCEDURE USE, 1 dose, Starting Cathy 09/07/20 at 1004, Until Cathy 09/07/20 at 1004, Routine midazolam (VERSED) injection Given 09/07/2020 10:29 AM BIAS BINDING FOLDER 1 mg IV Push, TITRATE - FOR PROCEDURE USE, 1 dose, Starting Cathy 09/07/20 at 1029, Until Cathy 09/07/20 at 1029, Routine morpHINE injection 4 mg Given 09/06/2020 10:24 AM BIAS BINDING FOLDER 4 mg 4 mg, Slow IV Push, ONCE, 1 dose, Fri09/06/20 at 1115, STAT morpHINE injection 4 mg Given 09/06/2020 11:22 AM BIAS BINDING FOLDER 4 mg 4 mg, Slow IV Push, ONCE, 1 dose, Fri09/06/20 at 1230, STAT nitroglycerin (TRIDIL) 2 mg in 10 mL D5W Given 09/07/2020 10:27 AM BIAS BINDING FOLDER 300 mcg for Cardiac Cath Intravenous, TITRATE - FOR PROCEDURE USE, 1 dose, Starting Cathy 09/07/20 at 1027, Until Cathy 09/07/20 at 1027, Routine nitroglycerin (TRIDIL) 2 mg in 10 mL D5W Given 09/07/2020 10:38 AM BIAS BINDING FOLDER 200 mcg for Cardiac Cath Intravenous, TITRATE - FOR PROCEDURE USE, 1 dose, Starting Cathy 09/07/20 at 1038, Until Cathy 09/07/20 at 1038, Routine nitroglycerin 50 mg in D5W Rate Change 09/07/2020 8:00 PM BIAS BINDING FOLDER 20 mcg/min 6 mL/hr 250 mL infusion RTU 5-200 mcg/min (1.5-60 mL/hr), IV Infusion, CONTINUOUS, Starting Fri09/06/20 at 1300, Initiate infusion at 5 mcg/min. Titrate by 5 mcg/min every 3 minutes to 5 minutes as needed to achieve and maintain goal blood pressure. Maximum dose = 200 mcg/min. If goal not maintained at maximum allowed dose, contact prescriber., Rate Change 09/07/2020 2:54 PM BIAS BINDING FOLDER 30 mcg/min 9 mL/hr Rate Change 09/07/2020 1:48 PM BIAS BINDING FOLDER 40 mcg/min 12 mL/hr ondansetron (ZOFRAN (PF)) injection 4 mg Given 09/06/2020 1:26 PM BIAS BINDING FOLDER 4 mg 4 mg, Slow IV Push, ONCE, 1 dose, Fri09/06/20 at 1430, RADHA Sliding Scale Insulin - Lispro Given 09/07/2020 12:26 PM BIAS BINDING FOLDER 1 U nits Abdomen-SC (HumaLOG) + Fsbg Testing Subcutaneous, Q6H, First dose on Fri09/06/20 at 1800, Until Discontinued, Routine Given 09/07/2020 12:00 AM BIAS BINDING FOLDER 2 Units Abdo men-SC documented in this encounter Additional Health Concerns Infection Onset Date Last Indicated Resolved Time COVID-19 Rule Out 09/06/2020 09/06/2020 09/06/2020 10: 56 AM BIAS BINDING FOLDER documented as of this encounter
--- OUTSIDE RECORDS SUMMARY | 2020-10-04 17:54 | XMS REPORT | Summary of Care ---
:1980 Author Organization [facility] Address [address] [place] [address] Care Team Providers Name Role Phone Omari Thao Primary Care Provider Reason for Visit Reason Comments Hospital F/U Referral/consult [facility] Encounter Details Date Type Department Care Team Description 09/14/2020 Patient Outreach [facility] Jennie Ramirez, KRISTINE Hospital F/U[address] Referral/c [facility]) [place], [place] [address] Allergies No Known Allergiesdocumented as of this encounter (statuses as of 09/14/2020) Medications Medication Sig Dispensed Refills Start Date End Date Status methocarbamol Take 500 mg by 0 A ctive (ROBAXIN) 500 mg mouth 2 (two) tablet times daily. metFORMIN 1,000 mg Take 1,000 mg by 0 Active tablet mouth 2 (two) times daily with meals. 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 Unstable angina 05/24/2020 Type 2 diabetes mellitus without complication, without long-term current 05/24/2020 use of insulin Family history of early CAD 05/24/2020 Essential hypertension 05/24/2020 Coronary artery calcification 05/24/2020 Atypical chest pain 05/23/2020 Orbital cellulitis, right 05/10/2019 Overview: S/P Orbitotomy with Mass Excision OD Obesity (BMI 30-39.9) 05/10/2019 documented as of this encounter (statuses as of 09/14/2020) Immunizations Name Administration Dates Next Due Influenza [...] with No / Unsure 09/06/2020 10:20 AM AVIATION TECHNICIAN someone who was confirmed or suspected to have Coronavirus / COVID-19? documented as of this encounter Last Filed Vital Signs Not on filedocumented in this encounter Progress Notes Jennie Ramirez RN - 09/14/2020 1:55 PM CSTSummary: Update CHP CM attempted to contact the patient. "No voicemail has been setup yet." CORY Smith, RN, [facility] Outpatient Payment SpecialistOlive GraderOnslow Memorial Hospital O: [phone] M: [phone] documented in this encounter Plan of Treatment Date Type Specialty Care Team Description 12/25/2020 Office Visit Cardiology Julius Leslie M D [address] [place] [address] [phone] Health Maintenance Due Date Last Done Comments [...]
--- OUTSIDE RECORDS SUMMARY | 2020-10-04 17:54 | XMS REPORT | Summary of Care ---
:1980 Author Organization [facility] Address [address] [place] [address] Care Team Providers Name Role Phone Master Omari Whitney Primary Care Provider Reason for Visit Reason Comments Referral/consult chp referral, no answer Encounter Details Date Type Department Care Team Description 09/19/2020 Patient Outreach [facility] Jennie Ramirez traveling repair accountant/consult [address] (chp referral, no [address] [place] [address] [facility] answer) [place] [address] [place], [place] [phone] Allergies No Known Allergiesdocumented as of this encounter (statuses as of 09/19/2020) Medications Medication Sig Dispensed Refills Start Date End Date Status methocarbamol Take 500 mg by 0 A ctive (ROBAXIN) 500 mg mouth 2 (two) tablet times daily. metFORMIN 1,000 mg Take 1,000 mg by 0 Active tablet mouth 2 (two) times daily with meals. fluticasone propionate Use 1 [place] in 0 Active (FLONASE ALLERGY each nostril [...] as of this encounter (statuses as of 09/19/2020) Active Problems Problem Noted Date Chest pain 09/01/2020 Stable angina 06/02/2020 Coronary artery disease involving navajo coronary ema ry of navajo heart 06/02/2020 with angina pectoris Unstable angina 05/24/2020 Type 2 diabetes mellitus without complication, without long-term current 05/24/2020 use of insulin Family history of early CAD 05/24/2020 Essential hypertension 05/24/2020 Coronary artery calcification 05/24/2020 Atypical chest pain 05/23/2020 Orbital cellulitis, right 05/10/2019 Overview: S/P Orbitotomy with Mass Excision OD Obesity (BMI 30-39.9) 05/10/2019 documented as of this encounter (statuses as of 09/19/2020) Immunizations Name Administration Dates Next Due Influenza [...] with No / Unsure 09/06/2020 10:20 AM NURSING SECRETARY someone who was confirmed or suspected to have Coronavirus / COVID-19? documented as of this encounter Last Filed Vital Signs Not on filedocumented in this encounter Progress Notes Jennie Ramirez RN - 09/19/2020 1:34 PM CSTSummary: chp referral update 2nd attempt for CHP referral; no answer. " has not been setup yet." CM called Vivian Genao, a listed contact, who is his neighbor. CM asked her to give him the message to call back when he is able to do so. She agreed to tell him. CORY Smith, RN, [facility] Outpatient Field Irrigation WorkerWelfare OfficerWatauga Medical Center O: [phone] M: [phone] documented in this encounter Plan of Treatment Date Type Specialty Care Team Description 12/25/2020 Office Visit Cardiology Julius Leslie M D [address] [place] [address] [phone] Health Maintenance Due Date Last Done Comments URINE MICROALBUMIN 1989 SARS-CoV-2 (COVID-19) Vaccine (1 1995 of 2) FOOT EXAM 1997 DTaP,Tdap,and Td Vaccines (1 [...]
== END 2020-10-04 17:13 | disposition home or self-care (01) ==
LOC: ER 14:51
DX: M54.2 Cervicalgia (principal); M54.6 Pain in thoracic spine; V49.40XA Driver injured in collision with unspecified motor vehicles in traffic accident, initial encounter; E11.9 Type 2 diabetes mellitus without complications; I10 Essential (primary) hypertension; Z86.711 Personal history of pulmonary embolism; Z95.5 Presence of coronary angioplasty implant and graft
CPT/HCPCS: 70450; 71045; 72125; 93005; 99283

== ENCOUNTER 2022-01-06 02:45 | Inpatient (IN) | payer SELFPAY ==
--- OUTSIDE RECORDS SUMMARY | 2022-01-06 02:58 | XMS REPORT | Continuity of Care Document ---
:1980 Author Organization [facility] t Address [address] [place] [address] Dr. Cace[address]. [address] [place] [address] Care Team Providers Name Role Phone Omari Thao Primary Care Physician Anuj ESCOBAR Attending Clinician Alycia SO Attending Clinician Unavailable ANUJ Attending Clinician Unavailable Lillie Prakash Attending Clinician Dorinda ESCOBAR Attending Clinician Doctor Unassigned, Name Attending Clinician Unavailable James CARMONA E Attending Clinician Chriss Attending Clinician Shandra STARR R Attending Clinician Lane ESCOBAR F Attending Clinician Patti ESCOBAR Attending Clinician Adam RODRIGUEZ Attending Clinician Che ESCOBAR Attending Clinician Maxwell ESCOBAR Attending Clinician Gomez ESCOBAR Attending Clinician Nii RODRIGUEZ Attending Clinician Brad ESCOBAR Attending Clinician Klarissa ESCOBAR T Attending Clinician João Young DO Attending Clinician HANNAH, J Attending Clinician Unavailable Harleen CARMONA, C Attending Clinician Esvin FARIAS, S Attending Clinician Dorinda ESCOBAR Admitting Clinician Lane ESCOBAR, F Admitting Clinician Che ESCOBAR Admitting Clinician Gomez ESCOBAR Admitting Clinician João YOUNG Admitting Clinician Unavailable Payers Payer Name Policy Type Policy Number Effective Date Expiration Date S ource Problems Condition Condition Condition Status Onset Resolution Last Treating Co mments Source Name Details Category Date Date Treatment Clinician Date Chest pain Chest pain Disease Active U nivers 1-08 ity of 00:00: [place] 00 Medical Branch Stable Stable Disease Active 2019-08 Univers angina angina 0-09 ity of 00:00: [place] [facility] 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 0-09 ity of disease disease 00:00: [place] involving involving 00 Medi zaina kaibab kaibab Branch 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 Unstable Unstable Disease Active Unive rs angina angina 9 ity of 00:00: [place] 00 Medical Branch 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 9 ity of mellitus mellitus 00:00: [place] without without 00 Medical complicati complicati Br anch on, on, without without long-term long-term current current use of use of insulin insulin Family Family Disease Active Univers history of history of 930 it y of early CAD early CAD [place] Essential Essential Disease Active 2020 Uni vers hypertensi hypertensi 9-30 it y of on on 00:00: [place] 00 Medical Branch Coronary Coronary Disease Active 2020- Unive rs artery artery 930 ity of calcificat calcificat 00:[place]: [place] 00 Medical [place] Chest pain Chest pain Disease Active 2020- U nivers 9- ity of 00:00: [place] 00 Medical Branch Atypical Atypical Disease Active 2020 Unive rs chest pain chest pain 9- it y of 00:00: [place] 00 Medical Branch Orbital Orbital Disease Active Overview: Univ ers cellulitis cellulitis 9-16 Formattin ity of , right , right 00:00: g of this [place] 00 note Medical might be Branch different from the original. S/P Orbitotom y with Mass Excision OD Obesity Obesity Disease Active 2018- Univers (BMI (BMI 9-16 ity of 30-39.9) 30-39.9) 00:00: [place] [address] Medical Branch No known No known Disease Unive rs active active ity of problems problems [facility] Allergies, Adverse Reactions, Alerts Allergy Allergy Status Severity Reaction(s) Onset Inactive Treating Comm ents Source Name Type Date Date Clinician NO KNOWN Drug Active Univers ALLERGIE Class ity of S [place] [facility] [place] Social History Social Habit Start Date Stop Date Quantity Comments Source History SDMI University o f Alcohol Frequency [facility] edical Branch History SDMI University o f Alcohol Std Drinks [place] [facility] History [facility] University o f Alcohol Binge [place] [facility] Exposure to Not sure University of SARS-CoV-2 (event) [facility] Alcohol intake 2020-09-07 2020-09-07 Current drinker Unive rsity of 00:00:00 00:00:00 of alcohol [place] [facility] (finding) Branch Education 2020-05-23 2020-05-23 13 University of 00:00:00 00:00:00 [place] [facility] History SDOH 2020-05-23 2020-05-23 3 University o f Financial 00:00:00 00:00:00 [place] [facility] History [facility] Food 2020-05-23 2020-05-23 2 Univers ity of Worry 00:00:00 00:00:00 [place] [facility] History [facility] Food 2020-05-23 2020-05-23 2 Univers ity of Scarcity 00:00:00 00:00:00 [place] [facility] History SDMI 2020-05-23 2020-05-23 2 University o f Transport Med 00:00:00 00:00:00 [place] Medic al Branch History SDMI 2020-05-23 2020-05-23 2 University o f Transport Non-Med 00:00:00 [facility] Tobacco Comment 2020-05-23 2020-05-23 Quit 2 years Univer sity of 00:00:00 00:00:[address] [facility] Tobacco use and 2019-05-10 2019-05-10 Former user Universi ty of exposure 00:00:00 00:00:00 [facility] Cigarettes smoked 2019-05-10 2019-05-10 Univers ity of current (pack per 00:00:00 00:00:00 ) - Reported Branch Alcohol Comment 2019-05-10 2019-05-10 social Universit y of 00:00:00 00:00:00 [facility] History of tobacco 1996-05-10 2018-07-08 Cigarette Smoker University of use 00:00:00 00:00:00 [facility] Sex Assigned At [birth year] Universit y of 00:00:00 00:00:00 [facility] Smoking Status Start Date Stop Date Source Former smoker 2019-05-10 00:00:00 2019-05-10 00:00:[address] [facility] Current every day 2018-06-15 00:00:00 [facility] smoker Medical Branch Medications Ordered Filled Start Stop Current Ordering Indication Dosage Frequency Signature Comments Components Source Medication Medication Date Date Medication? Clinician (SIG) Name Name amLODIPine Yes [id number] 5mg Take 1 Un [place] 5 mg tablet 1-13 tablet by ity of 00:00: mouth [place] 00 daily. Medical Branch atorvastati Yes [id number] 80mg Take 1 U nivers n 80 mg 1-13 tablet by ity of tablet 00:00: mouth [place] 00 daily. Medical Branch metoprolol Yes [id number] 100mg Take 1 U nivers tartrate 1-13 tablet by ity of 100 mg 00:00: mouth [place] tablet 00 every 12 Medical (twelve) Branch hours. nitroglycer Yes [id number] .4mg Place 1 Univers in 0.4 mg 1-13 tablet ity of sublingual 00:00: under the [place] tablet 00 tongue Medical every 5 Branch (five) minutes as needed for Chest pain. methocarbam 2020- No 500mg Take 500 Univers ol 5-25 05-25 mg by ity of (ROBAXIN) 18:35: 00:00 mouth 2 [place] 500 mg 00 :00 (two) Medical tablet times Branch daily. metFORMIN 2020- No 1000mg Take 1,000 Univers 1,000 mg 5-25 05-25 mg by ity of tablet 18:35: 00:00 mouth 2 [place] 00 :00 (two) Medical times Branch daily with meals. fluticasone 2020- No 1{spray Use 1 U nivers propionate 5-25 05-25 } [place] in ity of (FLONASE 18:35: 00:00 each [place] ALLERGY 00 :00 nostril Medical RELIEF) 50 daily. Branch mcg/actuati on nasal spray diclofenac 0 2020- No 50mg Take 50 mg Univers 50 mg EC 5-25 05-25 by mouth ity of tablet 18:35: 00:00 daily. [place] 00 :00 Medical Branch DULoxetine 2020-0 2020- No 30mg Take 30 mg Univers (CYMBALTA) 5-25 05-25 by mouth ity of 30 mg 18:35: 00:00 daily. [place] capsule 00 :00 Medical Branch atorvastati 2020-0 Yes [id number] 80mg Take 1 U nivers n 80 mg 5-25 tablet by ity of tablet 00:00: mouth [place] 00 daily. Medical Branch clopidogreL 2020-0 Yes [id number] 75mg Take 1 U nivers 75 mg 5-25 tablet by ity of tablet 00:00: mouth [place] 00 daily. Medical Branch fenofibrate 2020-0 Yes [id number] 67mg Take 1 U nivers micronized 5-25 capsule by ity of 67 mg 00:00: mouth [place] capsule 00 daily. Medical Branch amLODIPine 2020-0 Yes [id number] 5mg Take 1 Un [place] 5 mg tablet 5-25 tablet by ity of 00:00: mouth [place] 00 daily. Medical Branch aspirin 81 2020-0 Yes [id number] 81mg Take 1 Un [place] mg chewable 5-25 tablet by ity of tablet 00:00: mouth [place] 00 daily. Medical Branch isosorbide 2020-0 Yes [id number] 120mg Take 1 U nivers mononitrate 5-25 tablet by ity of 120 mg 24 00:00: mouth [place] hr tablet 00 daily. Medical Branch DULoxetine 2020-0 Yes [id number] 30mg Take 1 U nivers (CYMBALTA) 5-25 capsule by ity of 30 mg 00:00: mouth [place] capsule 00 daily. Medical Branch lisinopriL 2020-0 Yes [id number] 5mg Take 1 Un [place] 5 mg tablet 5-25 tablet by ity of 00:00: mouth [place] 00 daily. Medical Branch metoprolol 0 Yes [id number] 100mg Take 1 U nivers tartrate 5-25 tablet by ity of 100 mg 00:00: mouth [place] tablet 00 every 12 Medical (twelve) Branch hours. nitroglycer 2020-[id number] 1 Univers in 0.4 mg 5-25 tablet ity of sublingual 00:00: under the [place] tablet 00 tongue Medical every 5 Branch (five) minutes as needed for Chest pain. atorvastati 2020-0 Yes [id number] 80mg Take 1 U nivers n 80 mg 5-25 tablet by ity of tablet 00:00: mouth [place] 00 daily. Medical Branch clopidogreL 2020-0 Yes [id number] 75mg Take 1 U nivers 75 mg 5-25 tablet by ity of tablet 00:00: mouth [place] 00 daily. Medical Branch fenofibrate 0 Yes [id number] 67mg Take 1 U nivers micronized 5-25 capsule by ity of 67 mg 00:00: mouth [place] capsule 00 daily. Medical Branch amLODIPine 2020-0 Yes [id number] 5mg Take 1 Un [place] 5 mg tablet 5-25 tablet by ity of 00:00: mouth [place] 00 daily. Medical Branch aspirin 81 2020-0 Yes [id number] 81mg Take 1 Un [place] mg chewable 5-25 tablet by ity of tablet 00:00: mouth [place] 00 daily. Medical Branch isosorbide 2020-0 Yes [id number] 120mg Take 1 U nivers mononitrate 5-25 tablet by ity of 120 mg 24 00:00: mouth [place] hr tablet 00 daily. Medical Branch DULoxetine 2020-0 Yes [id number] 30mg Take 1 U nivers (CYMBALTA) 5-25 capsule by ity of 30 mg 00:00: mouth [place] capsule 00 daily. Medical Branch lisinopriL 2020-0 Yes [id number] 5mg Take 1 Un [place] 5 mg tablet 5-25 tablet by ity of 00:00: mouth [place] 00 daily. Medical Branch metoprolol 2020-0 Yes [id number] 100mg Take 1 U nivers tartrate 5-25 tablet by ity of 100 mg 00:00: mouth [place] tablet 00 every 12 Medical (twelve) Branch hours. nitroglycer 2020-[id number] 1 Univers in 0.4 mg 5-25 tablet ity of sublingual 00:00: under the [place] tablet 00 tongue Medical every 5 Branch (five) minutes as needed for Chest pain. clopidogreL Yes [id number] 75mg Take 1 U nivers 75 mg 5-25 tablet by ity of tablet 00:00: mouth [place] 00 daily. Medical Branch fenofibrate Yes [id number] 67mg Take 1 U nivers micronized 5-25 capsule by ity of 67 mg 00:00: mouth [place] capsule 00 daily. Medical Branch aspirin 81 Yes [id number] 81mg Take 1 Un [place] mg chewable 5-25 tablet by ity of tablet 00:00: mouth [place] 00 daily. Medical Branch isosorbide Yes [id number] 120mg Take 1 U nivers mononitrate 5-25 tablet by ity of 120 mg 24 00:00: mouth [place] hr tablet 00 daily. Medical Branch DULoxetine Yes [id number] 30mg Take 1 U nivers (CYMBALTA) 5-25 capsule by ity of 30 mg 00:00: mouth [place] capsule 00 daily. Medical Branch lisinopriL Yes [id number] 5mg Take 1 Un [place] 5 mg tablet 5-25 tablet by ity of 00:00: mouth [place] 00 daily. Medical Branch atorvastati 2021- No [id number] 80mg Take 1 Univers n 80 mg 5-25 - tablet by ity of tablet 00:00: 00:00 mouth [place] 00 :00 daily. Medical Branch amLODIPine 2021- No [id number] 5mg Take 1 U nivers 5 mg tablet 5-25 - tablet by it y of 00:00: 00:00 mouth [place] 00 :00 daily. Medical Branch metoprolol 2021- No [id number] 100mg Take 1 Univers tartrate 5-25 - tablet by ity o f 100 mg 00:00: 00:00 mouth [place] tablet 00 :00 every 12 Medical (twelve) Branch hours. nitroglycer 2021- No [id number] .4mg Place 1 Univers in 0.4 mg 5-25 - tablet ity of sublingual 00:00: 00:00 under the [place] tablet 00 :00 tongue Medical every 5 Branch (five) minutes as needed for Chest pain. sulfur 2020-0 2020- No [id number] 5mL 5 mL, Unive rs hexafluorid 01-15 05-24 Intravenou i ty of e microsphr 17:00: 17:00 s, ONCE, 1 [place] (LUMASON) 00 :00 dose, Mon Medic al injection 01/15/21 at Br anch mL 1200, Routine
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 member approving Restricted medication : ANUJJULIUS isosorbide 2020-0 Yes 120mg 120 mg, Uni vers mononitrate 24 Oral, ity of (IMDUR) 24 14:00: DAILY, [place] hr tablet 00 First dose Medi zaina 120 mg (after Branch last modificati on) on Fri01/15/21 at 0900, Until Discontinu ed, Routine lisinopriL 0 Yes 5mg 5 mg, Univer s (PRINIVIL,Z -24 Oral, ity of ESTRIL) 14:00: DAILY, [place] tablet 5 mg 00 First dose Me dical on Fri01/15/21 at 0900, Until Discontinu ed, Routine fenofibrate 2020-0 Yes 67mg 67 mg, Univ ers micronized -24 Oral, ity of (LOFIBRA) 14:00: DAILY, [place] capsule 67 00 First dose Med ical mg on Fri [place] 01/15/21 at 0900, Until Discontinu ed, Routine DULoxetine 2020-0 Yes 30mg 30 mg, Unive rs (CYMBALTA) -24 Oral, ity of capsule 30 14:00: DAILY, [place] mg 00 First dose Medical on Fri [place] 01/15/21 at 0900, Until Discontinu ed, Routine clopidogreL 2020-0 Yes 75mg 75 mg, Univ ers (PLAVIX) 5-24 Oral, ity of tablet 75 14:00: DAILY, [place] mg 00 First dose Medical on Fri [place] 01/15/21 at 0900, Until Discontinu ed, Routine amLODIPine 2020-0 Yes 5mg 5 mg, Univer s (NORVASC) 5-24 Oral, ity of tablet 5 mg 14:00: DAILY, [place] 00 First dose Medical on [facility] 01/15/21 at 0900, Until Discontinu ed, Routine aspirin Yes 81mg 81 mg, Univers chewable 01-15 Oral, ity of tablet 81 14:00: DAILY, [place] mg 00 First dose Medical on Mon Branch 01/15/21 at 0900, Until Discontinu ed, Routine metoprolol Yes 100mg 100 mg, Uni vers tartrate 01-15 Oral, ity of (LOPRESSOR) 01:00: Q12H, [place] tablet 100 00 First dose Med ical mg on [facility] 01/14/21 at 1999, Until Discontinu ed, Routine enoxaparin 2020- No 1mg/kg 120 mg Un l[place] (LOVENOX) 01-15 (rounded ity o f injection 01:00: 13:16 from 117.9 [place] 120 mg 00 :17 mg = 1 Medical mg/kg Branch ?117.9 kg), Subcutaneo us, Q12H, First dose on [place] 01/14/21 at 1999, Until Discontinu ed, Routine famotidine No 20mg 20 mg, IV U nivers 20 mg in 01-15 Piggyback, i ty of 50 ml 01:00: 13:11 Q12H, [place] (PEPCID) 20 00 :02 First dose Me dical mg/50 mL on [facility] Piggyback 01/14/21 at 20 mg 1999, Until Discontinu ed, 50 mL ranolazine No 500mg 500 mg, Un [place] (RANEXA) 12 01-15 Oral, ity of hr tablet 00:45: 14:17 Q12H, [place] 500 mg 00 :03 First dose Medical (after Branch last modificati on) on [place] 01/14/21 at 1945, Until Discontinu ed, Routine metoprolol 2020- No 50mg 50 mg, Univ ers tartrate 01-15 Oral, ity of (LOPRESSOR) 00:45: 23:36 ONCE, 1 [place] tablet 50 00 :00 dose, [place] Medic al mg 01/14/21 at Branch 1945, Routine atorvastati Yes 80mg 80 mg, Univ ers n (LIPITOR) 01-15 Oral, ity of tablet 80 00:30: DAILY, [place] mg 00 First dose Medical on [facility] 01/14/21 at 1930, Until Discontinu ed, Routine nitroglycer 202- No .5[in_u 0.5 Inch, Univers in (NITROL) 01-15 05-24 s] Transderma i ty of 2 % 00:28: 03:07 l (Apply [place] ointment 00 :00 To Skin), Medica l 0.5 Inch ONCE, 1 Branch dose, [place] 01/14/21 at 1930, Routine hydralAZINE Yes 10mg 10 mg, Univ ers (APRESOLINE 24 Slow IV ity o f ) injection 00:01: Push, [place] 10 mg 27 Q4HPRN, Medical Starting Branch [place] 01/14/21 at 1901, Until Discontinu ed, Routine, sbp > 160 or dbp > 100
Ind ication: Hypertensi ve Emergency ondansetron 2020- No 4mg 4 mg, Slow Univers (ZOFRAN 01-15 IV Push, ity of (PF)) 00:00: 23:16 ONCE, 1 [place] injection 4 00 :00 dose, [place] Med ical mg 01/14/21 at Branch 1900, RADHA morpHINE 2020- No 4mg 4 mg, Slow Un l[place] injection 4 01-15-23 IV Push, ity of mg 00:00: 23:15 ONCE, 1 [place] 00 :00 dose, [facility] 01/14/21 at Branch 1900, STAT Sliding Yes Subcutaneo Univ ers Scale 5-23 us, Q4H, ity of Insulin - 23:45: First dose [place] Lispro 00 on [facility] (HumaLOG) + 01/14/21 at Br anch Fsbg 1845, Testing Until Discontinu ed, Routine glucagon Yes 1mg 1 mg, Univers (GLUCAGEN 01-14 Intramuscu ity of DIAGNOSTIC 23:41: lar, PRN, [place] KIT) 22 Starting Medical injection 1 [facility] mg 01/14/21 at 1841, Until Discontinu ed, RADHA, Blood Glucose < or = 70 mg/dL and patient is unable to swallow or has mental changes. dextrose 50 2021-0 Yes 25mL 25 mL, Univ ers % in water 01-14 Slow IV ity of (D50W) 23:41: Push, PRN, [place] injection 22 Starting Medica l 25 mL [place] Branch 01/14/21 at 1841, Until Discontinu ed, RADHA, Blood Glucose < or = 70 mg/dL and patient is unable to swallow or has mental status changes. morpHINE 2020- No 4mg 4 mg, Slow Un l[place] injection 4 01-14 IV Push, ity of mg 23:40: 23:39 Q4HPRN, [place] 32 :32 Starting Medical Sun Branch 01/14/21 at 1840, Until 01/15/21 at 1839, Routine, Pain (scale 7-10), Chest pain HYDROcodone 2020- No 1{tbl} 1 tablet, Univers -acetaminop 01-14 Oral, ity of hen (NORCO 23:40: 23:39 Q6HPRN, [place] as 5) 5-325 mg 28 :28 Starting Medi zaina tablet 1 [place] Branch tablet 01/14/21 at 1840, Until 01/16/21 at 1839, Routine, Pain (scale 4-6) acetaminoph Yes 650mg 650 mg, Un l[place] en 01-14 Oral, ity of (TYLENOL) 23:40: Q6HPRN, [place] tablet 650 25 Starting Medic al mg [place] Branch 01/14/21 at 1840, Until Discontinu ed, Routine, Pain (scale 1-3) acetaminoph 2020- No 1000mg 1,000 mg, Univers en 01-14 Oral, ity of (TYLENOL) 23:30: 22:31 ONCE, 1 [place] tablet 00 :00 dose, [place] [facility] 1,000 mg 01/14/21 at [facility] h 1830, RADHA nitroglycer 2020- No .4mg 0.4 mg, Un lizbeth in 01-14 Sublingual ity of (NITROSTAT) 23:30: 22:13 , ONCE, 1 [place] sublingual 00 :00 dose, Sun Medi zaina tablet 0.4 01/14/21 at [facility] mg 1830, RADHA aspirin 2020- No 324mg 324 mg, Unive rs chewable 01-14 Oral, ity of tablet 324 23:30: 22:21 ONCE, 1 [place] as mg 00 :00 dose, [place] Medical 01/14/21 at [place] 1830, Routine maalox:diph 2020- No 15mL 15 mL, Uni vers enhydrAMINE 01-14 Oral, ity of :lidocaine 22:30: 23:54 ONCE, 1 [place] as 2 % viscous 00 :00 dose, [place] Med ical 1:1:1 01/14/21 at [place] (FIRST-MOUT 1730, RADHA HWASH BLM) oral suspension 15 mL nitroglycer Yes .4mg 0.4 mg, Uni vers in 01-14 Sublingual ity of (NITROSTAT) 22:26: , Q5MIN [place] as sublingual 23 PRN, Medical tablet 0.4 Starting Branc h mg [place] 01/14/21 at 1726, Until Discontinu ed, RADHA, Chest pain clopidogreL 0 Yes [id number] 75mg Take 1 U nivers 75 mg 4-27 tablet by ity of tablet 00:00: mouth [place] 00 daily. Medical Branch clopidogreL 0 Yes [id number] 75mg Take 1 U nivers 75 mg 4-27 tablet by ity of tablet 00:00: mouth [place] 00 daily. Medical Branch clopidogreL 0 Yes [id number] 75mg Take 1 U nivers 75 mg 4-27 tablet by ity of tablet 00:00: mouth [place] 00 daily. Medical Branch clopidogreL 0 2020- No [id number] 75mg Take 1 Univers 75 mg 4-27 05-25 tablet by ity of tablet 00:00: 00:00 mouth [place] 00 :00 daily. Medical Branch amLODIPine 2020-0 Yes [id number] 5mg Take 1 Un [place] 5 mg tablet 1-17 tablet by ity of 00:00: mouth [place] 00 daily. Medical Branch lisinopriL 2020-0 Yes [id number] 5mg Take 1 Un [place] 5 mg tablet 1-17 tablet by ity of 00:00: mouth [place] 00 daily. Medical Branch pantoprazol 2020-0 Yes [id number] 40mg Take 1 U nivers e 40 mg EC 1-17 tablet by ity of tablet 00:00: mouth [place] 00 daily. Medical Branch amLODIPine 2020-0 Yes [id number] 5mg Take 1 Un [place] 5 mg tablet 1-17 tablet by ity of 00:00: mouth [place] 00 daily. Medical Branch lisinopriL 2020-0 Yes [id number] 5mg Take 1 Un [place] 5 mg tablet 1-17 tablet by ity of 00:00: mouth [place] 00 daily. Medical Branch pantoprazol 2020-0 Yes [id number] 40mg Take 1 U nivers e 40 mg EC 1-17 tablet by ity of tablet 00:00: mouth [place] 00 daily. Medical Branch amLODIPine 2020-0 Yes [id number] 5mg Take 1 Un [place] 5 mg tablet 1-17 tablet by ity of 00:00: mouth [place] 00 daily. Medical Branch lisinopriL 2020-0 Yes [id number] 5mg Take 1 Un [place] 5 mg tablet 1-17 tablet by ity of 00:00: mouth [place] 00 daily. Medical Branch pantoprazol 2020-0 Yes [id number] 40mg Take 1 U nivers e 40 mg EC 1-17 tablet by ity of tablet 00:00: mouth [place] 00 daily. Medical Branch amLODIPine 2020-0 Yes [id number] 5mg Take 1 Un [place] 5 mg tablet 1-17 tablet by ity of 00:00: mouth [place] 00 daily. Medical Branch lisinopriL 2020-0 Yes [id number] 5mg Take 1 Un [place] 5 mg tablet 1-17 tablet by ity of 00:00: mouth [place] 00 daily. Medical Branch pantoprazol 2020-0 Yes [id number] 40mg Take 1 U nivers e 40 mg EC 1-17 tablet by ity of tablet 00:00: mouth [place] 00 daily. Medical Branch amLODIPine 2020-0 Yes [id number] 5mg Take 1 Un [place] 5 mg tablet 1-17 tablet by ity of 00:00: mouth [place] 00 daily. Medical Branch lisinopriL 2020-0 Yes [id number] 5mg Take 1 Un [place] 5 mg tablet 1-17 tablet by ity of 00:00: mouth [place] 00 daily. Medical Branch pantoprazol 2020-0 Yes [id number] 40mg Take 1 U nivers e 40 mg EC 1-17 tablet by ity of tablet 00:00: mouth [place] 00 daily. Medical Branch amLODIPine 2020-0 Yes [id number] 5mg Take 1 Un [place] 5 mg tablet 1-17 tablet by ity of 00:00: mouth [place] 00 daily. Medical Branch lisinopriL 2020-0 Yes [id number] 5mg Take 1 Un [place] 5 mg tablet 1-17 tablet by ity of 00:00: mouth [place] 00 daily. Medical Branch pantoprazol 2020-0 Yes [id number] 40mg Take 1 U nivers e 40 mg EC 1-17 tablet by ity of tablet 00:00: mouth [place] 00 daily. Medical Branch amLODIPine 2020-0 Yes [id number] 5mg Take 1 Un [place] 5 mg tablet 1-17 tablet by ity of 00:00: mouth [place] 00 daily. Medical Branch lisinopriL 2020-0 Yes [id number] 5mg Take 1 Un [place] 5 mg tablet 1-17 tablet by ity of 00:00: mouth [place] 00 daily. Medical Branch pantoprazol 0 Yes [id number] 40mg Take 1 U nivers e 40 mg EC 1-17 tablet by ity of tablet 00:00: mouth [place] 00 daily. Medical Branch amLODIPine 0 Yes [id number] 5mg Take 1 Un [place] 5 mg tablet 1-17 tablet by ity of 00:00: mouth [place] 00 daily. Medical Branch lisinopriL 0 Yes [id number] 5mg Take 1 Un [place] 5 mg tablet 1-17 tablet by ity of 00:00: mouth [place] 00 daily. Medical Branch pantoprazol 0 Yes [id number] 40mg Take 1 U nivers e 40 mg EC 1-17 tablet by ity of tablet 00:00: mouth [place] 00 daily. Medical Branch amLODIPine 0 2020- No [id number] 5mg Take 1 U nivers 5 mg tablet 1-17 05-25 tablet by it y of 00:00: 00:00 mouth [place] 00 :00 daily. Medical Branch lisinopriL 0 2020- No [id number] 5mg Take 1 U nivers 5 mg tablet 1-17 05-25 tablet by it y of 00:00: 00:00 mouth [place] 00 :00 daily. Medical Branch pantoprazol 0 2020- No [id number] 40mg Take 1 Univers e 40 mg EC 1-17 05-25 tablet by ity of tablet 00:00: 00:00 mouth [place] 00 :00 daily. Medical Branch gabapentin 0 Yes 600mg 600 mg, Uni vers (NEURONTIN) 1-16 Oral, TID, it y of tablet 600 20:00: First dose [place] mg 00 (after Medical last Branch modificati on) on 09/09/20 at 1400, Until Discontinu ed, Routine methocarbam 2020-0 Yes 500mg Take 500 U nivers ol 1-16 mg by ity of (ROBAXIN) 18:28: mouth 2 [place] 500 mg (two) Medical tablet times Branch daily. metFORMIN 0 Yes 1000mg Take 1,000 Univers 1,000 mg 1-16 mg by ity of tablet 18:28: mouth 2 [place] (two) Medical times Branch daily with meals. fluticasone 0 Yes 1{spray Use 1 Un [place] propionate 1-16 } [place] in ity o f (FLONASE 18:28: each [place] ALLERGY nostril Medical RELIEF) 50 daily. Branch mcg/actuati on nasal spray diclofenac 0 Yes 50mg Take 50 mg U nivers 50 mg EC 1-16 by mouth ity of tablet 18:28: daily. [place] [facility] Branch DULoxetine 0 Yes 30mg Take 30 mg U nivers (CYMBALTA) 1-16 by mouth ity o f 30 mg 18:28: daily. [place] [facility] Branch methocarbam 0 Yes 500mg Take 500 U nivers ol 1-16 mg by ity of (ROBAXIN) 18:28: mouth 2 [place] 500 mg (two) Medical tablet times Branch daily. metFORMIN 2020-0 Yes 1000mg Take 1,000 Univers 1,000 mg 1-16 mg by ity of tablet 18:28: mouth 2 [place] (two) Medical times Branch daily with meals. fluticasone 2020-0 Yes 1{spray Use 1 Un [place] propionate 1-16 } [place] in ity o f (FLONASE 18:28: each [place] ALLERGY 01 nostril Medical RELIEF) 50 daily. Branch mcg/actuati on nasal spray diclofenac 2020-0 Yes 50mg Take 50 mg U nivers 50 mg EC 1-16 by mouth ity of tablet 18:28: daily. [place] Medical Branch DULoxetine 2021-0 Yes 30mg Take 30 mg U nivers (CYMBALTA) 1-16 by mouth ity o f 30 mg 18:28: daily. [place] capsule [facility] methocarbam 0 Yes 500mg Take 500 U nivers ol 1-16 mg by ity of (ROBAXIN) 18:28: mouth 2 [place] 500 mg 01 (two) Medical tablet times Branch daily. metFORMIN 2020-0 Yes 1000mg Take 1,000 Univers 1,000 mg 1-16 mg by ity of tablet 18:28: mouth 2 [place] (two) Medical times Branch daily with meals. fluticasone 0 Yes 1{spray Use 1 Un [place] propionate 1-16 } [place] in ity o f (FLONASE 18:28: each [place] ALLERGY nostril Medical RELIEF) 50 daily. Branch mcg/actuati on nasal spray diclofenac 0 Yes 50mg Take 50 mg U nivers 50 mg EC 1-16 by mouth ity of tablet 18:28: daily. [address] DULoxetine Yes 30mg Take 30 mg U nivers (CYMBALTA) 1-16 by mouth ity o f 30 mg 18:28: daily. [place] capsule [address] [place] [address] methocarbam Yes 500mg Take 500 U nivers ol 1-16 mg by ity of (ROBAXIN) 18:28: mouth 2 [place] 500 mg (two) Medical tablet times Branch daily. metFORMIN 0 Yes 1000mg Take 1,000 [facility] 1,000 mg 1-16 mg by ity of tablet 18:28: mouth 2 [place] (two) Medical times Branch daily with meals. fluticasone 2020-0 Yes 1{spray Use 1 Un [place] propionate 1-16 } [place] in ity o f (FLONASE 18:28: each [place] ALLERGY nostril Medical RELIEF) 50 daily. Branch mcg/actuati on nasal spray diclofenac 2020-0 Yes 50mg Take 50 mg U nivers 50 mg EC 1-16 by mouth ity of tablet 18:28: daily. [address] DULoxetine 0 Yes 30mg Take 30 mg U nivers (CYMBALTA) 1-16 by mouth ity o f 30 mg 18:28: daily. [place] capsule [address] [place] [address] methocarbam 2021-0 Yes 500mg Take 500 U nivers ol 1-16 mg by ity of (ROBAXIN) 18:28: mouth 2 [place] 500 mg (two) Medical tablet times Branch daily. metFORMIN 0 Yes 1000mg Take 1,000 [facility] 1,000 mg 1-16 mg by ity of tablet 18:28: mouth 2 [place] 01 (two) Medical times Branch daily with meals. fluticasone 2020-0 Yes 1{spray Use 1 [place] propionate 1-16 } [place] in ity o f (FLONASE 18:28: each [place] ALLERGY nostril Medical RELIEF) 50 daily. Branch mcg/actuati on nasal spray diclofenac Yes 50mg Take 50 mg U nivers 50 mg EC 1-16 by mouth ity of tablet 18:28: daily. [place] [facility] Branch DULoxetine Yes 30mg Take 30 mg U nivers (CYMBALTA) 1-16 by mouth ity o f 30 mg 18:28: daily. [place] capsule Medical Branch methocarbam Yes 500mg Take 500 U nivers ol 1-16 mg by ity of (ROBAXIN) 18:28: mouth 2 [place] 500 mg (two) Medical tablet times Branch daily. metFORMIN Yes 1000mg Take 1,000 [facility] 1,000 mg 1-16 mg by ity of tablet 18:28: mouth 2 [place] (two) Medical times Branch daily with meals. fluticasone 0 Yes 1{spray Use 1 [place] propionate 1-16 } [place] in ity o f (FLONASE 18:28: each [place] ALLERGY nostril Medical RELIEF) 50 daily. Branch mcg/actuati on nasal spray diclofenac 0 Yes 50mg Take 50 mg U nivers 50 mg EC 1-16 by mouth ity of tablet 18:28: daily. [place] [facility] Branch DULoxetine 0 Yes 30mg Take 30 mg U nivers (CYMBALTA) 1-16 by mouth ity o f 30 mg 18:28: daily. [place] capsule Medical Branch methocarbam 0 Yes 500mg Take 500 U nivers ol 1-16 mg by ity of (ROBAXIN) 18:28: mouth 2 [place] 500 mg 01 (two) Medical tablet times Branch daily. metFORMIN 2020-0 Yes 1000mg Take 1,000 Univers 1,000 mg 1-16 mg by ity of tablet 18:28: mouth 2 [place] (two) Medical times Branch daily with meals. fluticasone Yes 1{spray Use 1 [place] propionate 1-16 } [place] in ity o f (FLONASE 18:28: each [place] ALLERGY 01 nostril Medical RELIEF) 50 daily. Branch mcg/actuati on nasal spray diclofenac Yes 50mg Take 50 mg U nivers 50 mg EC 1-16 by mouth ity of tablet 18:28: daily. [address] DULoxetine Yes 30mg Take 30 mg U nivers (CYMBALTA) 1-16 by mouth ity o f 30 mg 18:28: daily. [place] capsule [address] [place] [address] methocarbam Yes 500mg Take 500 U nivers ol 1-16 mg by ity of (ROBAXIN) 18:28: mouth 2 [place] 500 mg (two) Medical tablet times Branch daily. metFORMIN Yes 1000mg Take 1,000 [facility] 1,000 mg 1-16 mg by ity of tablet 18:28: mouth 2 [place] (two) Medical times Branch daily with meals. fluticasone Yes 1{spray Use 1 [place] propionate 1-16 } [place] in ity o f (FLONASE 18:28: each [place] ALLERGY nostril Medical RELIEF) 50 daily. Branch mcg/actuati on nasal spray diclofenac Yes 50mg Take 50 mg U nivers 50 mg EC 1-16 by mouth ity of tablet 18:28: daily. [address] DULoxetine Yes 30mg Take 30 mg U nivers (CYMBALTA) 1-16 by mouth ity o f 30 mg 18:28: daily. [place] capsule [address] [place] [address] Branch metoprolol 0 2020- No 100mg Take 100 U nivers succinate 1-16 01-16 mg by ity of XL 100 mg 15:17: 00:00 mouth 2 [place] 24 hr 31 :00 (two) Medical tablet times Branch daily. heparin Yes 5000U 5,000 Univers (porcine) 1-16 Units, ity of injection 02:00: Subcutaneo [place] 5,000 Units 00 us, Q12H, Med ical First dose Branch on Fri09/08/20 at 1999, Until Discontinu ed, Routine metoprolol 2020-0 Yes [id number] 100mg Take 1 U nivers tartrate 1-16 tablet by ity of 100 mg 00:00: mouth [place] tablet 00 every 12 Medical (twelve) Branch hours. ranolazine 2020-0 Yes [id number] 500mg Take 1 U nivers 500 mg 12 1-16 tablet by ity o f hr tablet 00:00: mouth [place] 00 every 12 Medical (twelve) Branch hours. metoprolol 2020-0 Yes [id number] 100mg Take 1 U nivers tartrate 1-16 tablet by ity of 100 mg 00:00: mouth [place] tablet 00 every 12 Medical (twelve) Branch hours. ranolazine 2020-0 Yes [id number] 500mg Take 1 U nivers 500 mg 12 1-16 tablet by ity o f hr tablet 00:00: mouth [place] 00 every 12 Medical (twelve) Branch hours. metoprolol 2020-0 Yes [id number] 100mg Take 1 U nivers tartrate 1-16 tablet by ity of 100 mg 00:00: mouth [place] tablet 00 every 12 Medical (twelve) Branch hours. ranolazine 2020-0 Yes [id number] 500mg Take 1 U nivers 500 mg 12 1-16 tablet by ity o f hr tablet 00:00: mouth [place] 00 every 12 Medical (twelve) Branch hours. metoprolol 2020-0 Yes [id number] 100mg Take 1 U nivers tartrate 1-16 tablet by ity of 100 mg 00:00: mouth [place] tablet 00 every 12 Medical (twelve) Branch hours. ranolazine 2020-0 Yes [id number] 500mg Take 1 U nivers 500 mg 12 1-16 tablet by ity o f hr tablet 00:00: mouth [place] 00 every 12 Medical (twelve) Branch hours. metoprolol 2020-0 Yes [id number] 100mg Take 1 U nivers tartrate 1-16 tablet by ity of 100 mg 00:00: mouth [place] tablet 00 every 12 Medical (twelve) Branch hours. ranolazine 2020-0 Yes [id number] 500mg Take 1 U nivers 500 mg 12 1-16 tablet by ity o f hr tablet 00:00: mouth [place] 00 every 12 Medical (twelve) Branch hours. metoprolol 2020-0 Yes [id number] 100mg Take 1 U nivers tartrate 1-16 tablet by ity of 100 mg 00:00: mouth [place] tablet 00 every 12 Medical (twelve) Branch hours. ranolazine 2020-0 Yes [id number] 500mg Take 1 U nivers 500 mg 12 1-16 tablet by ity o f hr tablet 00:00: mouth [place] 00 every 12 Medical (twelve) Branch hours. metoprolol 2020-0 Yes [id number] 100mg Take 1 U nivers tartrate 1-16 tablet by ity of 100 mg 00:00: mouth [place] tablet 00 every 12 Medical (twelve) Branch hours. ranolazine 2020-0 Yes [id number] 500mg Take 1 U nivers 500 mg 12 1-16 tablet by ity o f hr tablet 00:00: mouth [place] 00 every 12 Medical (twelve) Branch hours. metoprolol 0 Yes [id number] 100mg Take 1 U nivers tartrate 1-16 tablet by ity of 100 mg 00:00: mouth [place] tablet 00 every 12 Medical (twelve) Branch hours. ranolazine 0 Yes [id number] 500mg Take 1 U nivers 500 mg 12 1-16 tablet by ity o f hr tablet 00:00: mouth [place] 00 every 12 Medical (twelve) Branch hours. metoprolol 0 2020- No [id number] 100mg Take 1 Univers tartrate 1-16 05-25 tablet by ity o f 100 mg 00:00: 00:00 mouth [place] tablet 00 :00 every 12 Medical (twelve) Branch hours. ranolazine 0 2020- No [id number] 500mg Take 1 Univers 500 mg 12 1-16 05-25 tablet by ity of hr tablet 00:00: 00:00 mouth [place] 00 :00 every 12 Medical (twelve) Branch hours. Sliding 2020-0 Yes Subcutaneo Univ ers Scale 1-15 us, TID ity of Insulin - 18:00: MEALS+HS, [place] as Lispro 00 First dose Medical (HumaLOG) + (after Branch Fsbg last Testing modificati on) on Fri09/08/20 at 1200, Until Discontinu ed, Routine amLODIPine 2020-0 Yes 5mg 5 mg, Univer s (NORVASC) 1-15 Oral, ity of tablet 5 mg 16:15: DAILY, [place] 00 First dose Medical on Fri Branch 09/08/20 at 1015, Until Discontinu ed, Routine lisinopriL 0 Yes 5mg 5 mg, Univer s (PRINIVIL,Z 1-15 Oral, ity of ESTRIL) 15:00: DAILY, [place] tablet 5 mg 00 First dose Me dical (after Branch last modificati on) on Fri09/08/20 at 0900, Until Discontinu ed, Routine lidocaine 0 Yes 1{patch 1 Patch, U nivers (LIDODERM) 1-15 } Topical, ity o f 5 % (700 03:30: Administer [place] mg/patch) 00 over 12 Medical patch 1 Hours, Branch Patch DAILY, First dose (after last reorder) on [facility] 09/07/20 at 2130, Until Discontinu ed, Routine LORazepam 0 Yes .5mg 0.5 mg, Unive rs (ATIVAN) 1-15 Oral, ity of tablet 0.5 03:15: Q4HPRN, [place] mg 50 Starting Medical [facility] Branch 09/07/20 at 2115, Until Discontinu ed, Routine, Anxiety metoprolol 0 Yes 100mg 100 mg, Uni vers tartrate -15 Oral, ity of (LOPRESSOR) 02:00: Q12H, [place] tablet 100 00 First dose Med ical mg on [facility] Branch 09/07/20 at 2000, Until Discontinu ed, Routine ranolazine 0 Yes 500mg 500 mg, Uni vers (RANEXA) 12 -14 Oral, Q12H it y of hr tablet 20:00: ABX, First [place] 500 mg 00 dose on Medical [facility] Branch 09/07/20 at 1400, Until Discontinu ed, Routine lisinopriL 0 2020- No 2.5mg 2.5 mg, Un l[facility] (PRINIVIL,Z 1-14 -14 Oral, ONCE i ty of ESTRIL) 20:00: 19:42 NOW, 1 [place] tablet 2.5 00 :00 dose, [facility] Medi zaina mg 09/07/20 at Branch 1400, Routine FENTanyl PF 2020-0 2021- No Slow IV Un lizbeth (SUBLIMAZE 09-07 Push, ity of (PF)) 17:34: 17:34 TITRATE - [place] injection 00 :00 FOR Medical PROCEDURE Branch USE, 1 dose, Starting [place] 09/07/20 at 1134, Until [place] 09/07/20 at 1134, Routine FENTanyl PF 2020- No Slow IV Un l[place] (SUBLIMAZE 09-07 Push, ity of (PF)) 17:07: 17:07 TITRATE - [place] injection 40 :40 FOR Medical PROCEDURE Branch USE, 1 dose, Starting [place] 09/07/20 at 1107, Until [place] 09/07/20 at 1107, Routine adenosine 2020- No Intravenou U nivers diagnostic 09-07 s, ity of (ADENOSCAN) 16:57: 17:03 CONTINUOUS [place] injection 52 :58 PRN, Medical Starting Branch [place] 09/07/20 at 1057, Until [place] 09/07/20 at 1103, Routine FENTanyl PF 2020- No Slow IV Un lizbeth (SUBLIMAZE 09-07 Push, ity of (PF)) 16:56: 16:56 TITRATE - [place] injection 09 :09 FOR Medical PROCEDURE Branch USE, 1 dose, Starting [place] 09/07/20 at 1056, Until [place] 09/07/20 at 1056, Routine heparin 2020- No Slow IV Univer s 1,000 09-07 Push, ity of unit/mL 16:47: 16:47 TITRATE - [place] injection 57 :57 FOR Medical PROCEDURE Branch USE, 1 dose, Starting [place] 09/07/20 at 1047, Until [place] 09/07/20 at 1047, Routine nitroglycer 2020- No Intravenou Univers in (TRIDIL) 09-07 s, TITRATE i ty of 2 mg in 10 16:38: 16:38 - FOR [place] mL D5W for 52 :52 PROCEDURE Medi zaina Cardiac USE, 1 Branch Cath dose, Starting [place] 09/07/20 at 1038, Until [place] 09/07/20 at 1038, Routine midazolam 2020- No IV Push, Uni vers (VERSED) 09-07 TITRATE - ity o f injection 16:29: 16:29 FOR [place] 19 :19 PROCEDURE Medical USE, 1 Branch dose, Starting [place] 09/07/20 at 1029, Until [place] 09/07/20 at 1029, Routine nitroglycer 2020- No Intravenou Univers in (TRIDIL) 09-07 s, TITRATE i ty of 2 mg in 10 16:27: 16:27 - FOR [place] mL D5W for 51 :51 PROCEDURE Medi zaina Cardiac USE, 1 Branch Cath dose, Starting [place] 09/07/20 at 1027, Until [place] 09/07/20 at 1027, Routine FENTanyl PF 2020- No Slow IV Un lizbeth (SUBLIMAZE 09-07 Push, ity of (PF)) 16:19: 16:19 TITRATE - [place] injection 24 :24 FOR Medical PROCEDURE Branch USE, 1 dose, Starting [place] 09/07/20 at 1019, Until [place] 09/07/20 at 1019, Routine lidocaine 2020- No Infiltrati U nivers 1% (PF) 09-07 on, ity of (XYLOCAINE) 16:15: 16:15 TITRATE - [place] injection 22 :22 FOR Medical PROCEDURE Branch USE, 1 dose, Starting [place] 09/07/20 at 1015, Until [place] 09/07/20 at 1015, Routine FENTanyl PF 2020- No Slow IV Un lizbeth (SUBLIMAZE 09-07 Push, ity of (PF)) 16:05: 16:05 TITRATE - [place] injection 47 :47 FOR Medical PROCEDURE Branch USE, 1 dose, Starting [place] 09/07/20 at 1005, Until [place] 09/07/20 at 1005, Routine midazolam 2020- No IV Push, Uni vers (VERSED) 09-07 TITRATE - ity o f injection 16:04: 16:04 FOR [place] 56 :56 PROCEDURE Medical USE, 1 Branch dose, Starting [place] 09/07/20 at 1004, Until [place] 09/07/20 at 1004, Routine fluticasone Yes 2{spray 2 [place], Univers propionate 09-07 } Nasal, ity of 50 15:00: DAILY, [place] mcg/actuati 00 First dose Me dical on nasal on [facility] Branch spray 2 09/07/20 at [place] 0900, Until Discontinu ed, Routine pantoprazol Yes 40mg 40 mg, [facility] ers e -14 Oral, ity of (PROTONIX) 15:00: DAILY, [place] EC tablet 00 First dose Medi zaina 40 mg on [facility] 09/07/20 at 0900, Until Discontinu ed, Routine isosorbide Yes 120mg 120 mg, Uni vers mononitrate 14 Oral, ity of (IMDUR) 24 15:00: DAILY, [place] hr tablet 00 First dose Medi zaina 120 mg on [facility] 09/07/20 at 0900, Until Discontinu ed, Routine fenofibrate Yes 67mg 67 mg, [facility] ers micronized 09-07 Oral, ity of (LOFIBRA) 15:00: DAILY, [place] capsule 67 00 First dose Med ical mg on [facility] 09/07/20 at 0900, Until Discontinu ed, Routine clopidogreL Yes 75mg 75 mg, [facility] ers (PLAVIX) 09-07 Oral, ity of tablet 75 15:00: DAILY, [place] mg 00 First dose Medical on [facility] 09/07/20 at 0900, Until Discontinu ed, Routine aspirin Yes 81mg 81 mg, Univers chewable 09-07 Oral, ity of tablet 81 15:00: DAILY, [place] mg 00 First dose Medical on [facility] 09/07/20 at 0900, Until Discontinu ed, Routine lisinopriL 2020- No 2.5mg 2.5 mg, Un l[facility] (PRINIVIL,Z 09-07 Oral, ity of ESTRIL) 15:00: 18:55 DAILY, [place] tablet 2.5 00 :01 First dose Med ical mg on [facility] 09/07/20 at 0900, Until Discontinu ed, Routine HYDROcodone 2020- No 1{tbl} 1 tablet, Univers -acetaminop 09-07-16 Oral, ity of hen (NORCO) 13:55: 13:54 Q6HPRN, [place] 10-325 mg 47 :47 Starting Medica l tablet 1 Fri Branch tablet 09/07/20 at 0755, Until 09/09/20 at 0754, Routine, Pain (scale 7-10) LORazepam 2020- No .5mg 0.5 mg, Univ ers (ATIVAN) 09-07 Oral, ity of tablet 0.5 12:00: 11:08 ONCE, 1 [place] mg 00 :00 dose, [facility] Medical 09/07/20 at Branch 0600, Routine lidocaine 2020- No 1{patch 1 Patch, Univers (LIDODERM) 09-07 } Topical, ity of 5 % (700 12:00: 23:08 Administer [place] mg/patch) 00 :00 over 12 Medical patch 1 Hours, Branch Patch ONCE, 1 dose, [facility] 09/07/20 at 0600, Routine gabapentin 2020- No 400mg 400 mg, Un lizbeth (NEURONTIN) 09-07 Oral, TID, i ty of capsule 400 04:30: 14:59 First dose [place] mg 00 :53 on [facility] 09/06/20 at Branch 2230, Until Discontinu ed, Routine HYDROcodone 2020- No 1{tbl} 1 tablet, Univers -acetaminop 09-07 Oral, ity of hen (NORCO) 04:16: 10:26 Q6HPRN, 2 [place] 10-325 mg 45 :00 doses, Medical tablet 1 Starting Branch tablet [facility] 09/06/20 at 2216, Until Discontinu ed, Routine, Pain (scale 7-10) atorvastati Yes 80mg 80 mg, Univ ers n (LIPITOR) 09-07 Oral, QHS, it y of tablet 80 03:00: First dose [place] mg 00 on Fri Medical 09/06/20 at Branch 2100, Until Discontinu ed, Routine clonazePAM 2020- No .5mg 0.5 mg, Uni vers (KLONOPIN) 09-07 Oral, ity of tablet 0.5 01:43: 00:27 TIDPRN, 2 [place] mg 34 :00 doses, Medical Starting Branch [facility] 09/06/20 at 1943, Until Discontinu ed, Routine, anxiety Sliding 2020- No Subcutaneo Uni vers Scale 1-14 -15 us, Q6H, ity of Insulin - 00:00: 16:06 First dose [place] Lispro 00 :20 on Wed Medical (HumaLOG) + 09/06/20 at anch Fsbg 1800, Testing Until Discontinu ed, Routine magnesium 2020- No 1g 1 g, IV Univ ers sulfate in 09-06 Piggyback, it y of D5W 1 22:15: 23:13 ONCE, 1 [place] gram/100 mL 00 :00 dose, Wed Med ical RTU IV 09/06/20 at Branch Piggyback 1 1615, 100 g mL morpHINE Yes 2mg 2 mg, Slow Uni vers injection 2 09-06 IV Push, ity of mg 21:36: Q4HPRN, [place] 00 Starting Medical Wed Branch 09/06/20 at 1536, Until Discontinu ed, Routine, Pain (scale 7-10), Chest pain glucagon Yes 1mg 1 mg, Univers (GLUCAGEN 09-06 Intramuscu ity of DIAGNOSTIC 21:33: lar, PRN, [place] KIT) 29 Starting Medical injection 1 Wed Branch mg 09/06/20 at 1533, Until Discontinu ed, RADHA, Blood Glucose < or = 70 mg/dL and patient is unable to swallow or has mental changes. dextrose 50 Yes 25mL 25 mL, Univ ers % in water 09-06 Slow IV ity of (D50W) 21:33: Push, PRN, [place] injection 29 Starting Medica l 25 mL Wed Branch 09/06/20 at 1533, Until Discontinu ed, RADHA, Blood Glucose < or = 70 mg/dL and patient is unable to swallow or has mental status changes. ondansetron 2020- No 4mg 4 mg, Slow Univers (ZOFRAN 09-06 IV Push, ity of (PF)) 20:30: 19:26 ONCE, 1 [place] injection 4 00 :00 dose, Wed Med ical mg 09/06/20 at Branch 1430, RADHA methocarbam Yes 500mg Take 500 U nivers ol 1-13 mg by ity of (ROBAXIN) 19:42: mouth 2 [place] 500 mg 48 (two) Medical tablet times Branch daily. metFORMIN Yes 1000mg Take 1,000 Univers 1,000 mg 1-13 mg by ity of tablet 19:42: mouth 2 [place] 48 (two) Medical times Branch daily with meals. fluticasone Yes 1{spray Use 1 Un [place] propionate 13 } [place] in ity o f (FLONASE 19:42: each [place] ALLERGY 48 nostril Medical RELIEF) 50 daily. Branch mcg/actuati on nasal spray diclofenac Yes 50mg Take 50 mg U nivers 50 mg EC 13 by mouth ity of tablet 19:42: daily. [place] [address] Medical Branch DULoxetine Yes 30mg Take 30 mg U nivers (CYMBALTA) 13 by mouth ity o f 30 mg 19:42: daily. [place] [address] Medical Branch metoprolol Yes 100mg Take 100 Un lizbeth succinate 1-13 mg by ity of XL 100 mg 19:42: mouth 2 [place] 24 hr 48 (two) Medical tablet times Branch daily. nitroglycer 2020- No 5ug/min 5-200 U nivers in 50 mg in 09-06 01-15 mcg/min ity of D5W 250 mL 19:00: 16:05 (1.5-60 [place] as infusion 00 :09 mL/hr), IV Medic al RTU Infusion, Branch CONTINUOUS , Starting Fri09/06/20 at 1300
In itiate infusion at 5 mcg/min.&n bsp; Titrate by 5 mcg/min every 3 minutes to 5 minutes as needed to achieve and maintain goal blood pressure. Maximum dose = 200 mcg/min. If goal not maintained at maximum allowed dose, contact prescriber .
heparin 2020- No 1000U/h 1,000 Unive rs 25,000 09-06 01-14 Units/hr ity of Units/250 18:54: 18:54 (10 [place] mL 01 :15 mL/hr), IV Medical (Premixed Infusion, Branc h Bag) in TITRATE, 0.45 % NS Parameters in Admin. Instr., Starting Fri09/06/20 at 1254
CA UTION - If LMWH given in ER, AVOID bolus and start next dose/drip 12 hrs after ER dosage.&nb sp; M ust program rate using programmab le infusion pump.&nbsp ; Marguerite ck with the ordering provider first prior to any administra tion should the patient be on existing/a dditional anticoagul ant therapy. Rang e, Dosing and Testing: &nbs p;[facility], [facility], AND [facility] ONLY - aPTT < 35: & nbsp;Bolus 5000 units, increase rate 300 units/hr&n bsp; - aPTT 35-44:&nbs p; Michael lotus 3000 units, increase rate 200 units/hr&n bsp; - aPTT 45-54:&nbs p; In crease rate 100 units/hr&n bsp; - aPTT 55-85:&nbs p; NO CHANGE&nbs p; - aPTT 86-95:&nbs p; De crease rate 100 units/hr&n bsp; - aPTT 96-120:&nb sp; H old 30 minutes, decrease rate 150 units/hr&n bsp; - aPTT > 120:&n bsp; Hold 60 minutes, decrease rate 200 units/hr&n bsp; Check aPTT 6 hours after initiation , then Q6H after every change, aPTT Q12H once therapeuti c levels are reached.&n bsp; &nbs p; __ &n bsp;FOR [facility] ONLY - aPTT < 40: & nbsp;Bolus 5000 units, increase rate 300 units/hr&n bsp; - aPTT 40-49:&nbs p; Michael lotus 3000 units, increase rate 200 units/hr&n bsp; - aPTT 50-59:&nbs p; In crease rate 100 units/hr&n bsp; - aPTT 60-85:&nbs p; NO CHANGE&nbs p; - aPTT 86-95:&nbs p; De crease rate 100 units/hr&n bsp; - aPTT 96-120:&nb sp; H old 30 minutes, decrease rate 150 units/hr&n bsp; - aPTT > 120: Hold 60 minutes, decrease rate 200 units/hr&n bsp; Check aPTT 6 hours after initiation , then Q6H after every change, aPTT Q12H once therapeuti c levels are reached.&n bsp; DO NOT ADJUST INITIAL BOLUS OR INITIAL INFUSION RATE.
morpHINE 2020- No 4mg 4 mg, Slow Un lizbeth injection 4 09-06 IV Push, ity of mg 18:30: 17:22 ONCE, 1 [place] 00 :00 dose, [facility] Medical 09/06/20 at Branch 1230, STAT heparin 2020- No 4000U 4,000 Univers 1000 09-06 Units, ity of unit/mL 18:00: 18:15 Intravenou [place] as injection 00 :00 s, ONCE, 1 Medi zaina Soln 4,000 dose, Wed Bran ch Units 09/06/20 at 1200, Routine heparin 2020- No 3000U FOR Univers (1,000 09-06 REBOLUSING ity of unit/mL, 10 17:54: 18:54 , Starting [place] mL vial) 01 :15 [facility] Medical for 09/06/20 at Branch Rebolusing 1154, Until [place] 09/07/20 at 1254, Routine
Dosing based on aPTT testing parameters (refer to continuous heparin drip order).
morpHINE 0 2020- No 4mg 4 mg, Slow Un liz[place] injection 4 09-06 IV Push, ity of mg 17:15: 16:24 ONCE, 1 [place] 00 :00 dose, Wed Medical 09/06/20 at Branch 1115, STAT losartan 25 2020-0 Yes [id number] 25mg Take 1 Univers mg tablet 1-11 tablet by ity o f 00:00: mouth [place] 00 daily. [facility] Branch losartan 25 0 Yes [id number] 25mg Take 1 Univers mg tablet 1-11 tablet by ity o f 00:00: mouth [place] 00 daily. [facility] Branch losartan 25 0 2020- No [id number] 25mg Take 1 Univers mg tablet -11 09-09 tablet by ity of 00:00: 00:00 mouth [place] 00 :00 daily. [facility] Branch methocarbam Yes 500mg Take 500 U nivers ol 1-10 mg by ity of (ROBAXIN) 21:05: mouth 2 [place] 500 mg 43 (two) Medical tablet times Branch daily. metFORMIN Yes 1000mg Take 1,000 Univers 1,000 mg 1-10 mg by ity of tablet 21:05: mouth 2 [place] 43 (two) Medical times [place] daily with meals. fluticasone 0 Yes 1{spray Use 1 Un [place] propionate 1-10 } [place] in ity o f (FLONASE 21:05: each [place] ALLERGY 43 nostril Medical RELIEF) 50 daily. Branch mcg/actuati on nasal spray diclofenac Yes 50mg Take 50 mg U nivers 50 mg EC 1-10 by mouth ity of tablet 21:05: daily. [address] Branch DULoxetine 0 Yes 30mg Take 30 mg U nivers (CYMBALTA) 1-10 by mouth ity o f 30 mg 21:05: daily. [place] [facility] 43 [facility] Branch metoprolol 0 Yes 100mg Take 100 Un l[place] succinate 1-10 mg by ity of XL 100 mg 21:05: mouth 2 [place] 24 hr 43 (two) Medical tablet times Branch daily. losartan 0 Yes 25mg 25 mg, Univers (COZAAR) 1-10 Oral, ity of tablet 25 15:00: DAILY, [place] mg 00 First dose Medical on [place] Branch 09/03/20 at 0900, Until Discontinu ed, Routine ALPRAZolam 2020- No 1mg 1 mg, Unive rs (XANAX) 1-10 01-10 Oral, ity of tablet 1 mg 03:00: 02:19 ONCE, 1 [place] 00 :00 dose, Sat Medical 09/02/20 at Branch 2100, Routine gabapentin 2020-0 Yes [id number] 600mg Take 2 Univers 300 mg 1-10 capsules ity of capsule 00:00: by mouth 2 [place] 00 (two) Medical times Branch daily. nitroglycer 2020- Yes [id number] .4mg Place 1 Univers in 0.4 mg 1-10 tablet ity of sublingual 00:00: under the [place] tablet 00 tongue Medical every 5 Branch (five) minutes as needed for Chest pain. albuterol Yes [id number] 2{puff} Inhale 2 Univers (PROAIR 1-10 Puffs ity of HFA) 90 00:00: every 6 [place] mcg/actuati 00 (six) Medical on inhaler hours as Branc h needed for Wheezing or Shortness of Breath. gabapentin 2020-0 Yes [id number] 600mg Take 2 Univers 300 mg 1-10 capsules ity of capsule 00:00: by mouth 2 [place] 00 (two) Medical times Branch daily. nitroglycer 2020-[id number] 1 Univers in 0.4 mg 1-10 tablet ity of sublingual 00:00: under the [place] tablet 00 tongue Medical every 5 Branch (five) minutes as needed for Chest pain. albuterol Yes [id number] 2{puff} Inhale 2 Univers (PROAIR 1-10 Puffs ity of HFA) 90 00:00: every 6 [place] mcg/actuati 00 (six) Medical on inhaler hours as Branc h needed for Wheezing or Shortness of Breath. gabapentin 2020-0 Yes [id number] 600mg Take 2 [facility] 300 mg 1-10 capsules it[facility] of capsule 00:00: [place] mouth 2 [place] (two) Medical times Branch daily. nitroglycer 2020-[id number] 1 [facility] in 0.4 mg 1-10 tablet ity of sublingual 00:00: under the [place] tablet 00 tongue Medical every 5 Branch (five) minutes as needed for Chest pain. albuterol 2020-0 Yes [id number] 2{puff} Inhale 2 [facility] (PROAIR 1-10 Puffs ity of HFA) 90 00:00: every 6 [place] mcg/actuati 00 (six) Medical on inhaler hours as Branc h needed for Wheezing or Shortness of Breath. gabapentin 2020-0 Yes [id number] 600mg Take 2 [facility] 300 mg 1-10 capsules it[facility] of capsule 00:00: [place] mouth 2 [place] 00 (two) Medical times Branch daily. nitroglycer 2020-[id number] 1 [facility] in 0.4 mg 1-10 tablet ity of sublingual 00:00: under the [place] tablet 00 tongue Medical every 5 Branch (five) minutes as needed for Chest pain. albuterol 2020-0 Yes [id number] 2{puff} Inhale 2 [facility] (PROAIR 1-10 Puffs ity of HFA) 90 00:00: every 6 [place] mcg/actuati 00 (six) Medical on inhaler hours as Branc h needed for Wheezing or Shortness of Breath. gabapentin 2020-0 Yes [id number] 600mg Take 2 [facility] 300 mg 1-10 capsules it[facility] of capsule 00:00: by mouth 2 [place] 00 (two) Medical times Branch daily. nitroglycer 2020-[id number] 1 [facility] in 0.4 mg 1-10 tablet ity of sublingual 00:00: under the [place] tablet 00 tongue Medical every 5 Branch (five) minutes as needed for Chest pain. albuterol 2020-0 Yes [id number] 2{puff} Inhale 2 [facility] (PROAIR 1-10 Puffs ity of HFA) 90 00:00: every 6 [place] mcg/actuati 00 (six) Medical on inhaler hours as Branc h needed for Wheezing or Shortness of Breath. gabapentin 2020-0 Yes [id number] 600mg Take 2 [facility] 300 mg 1-10 capsules it[facility] of capsule 00:00: [place] mouth 2 [place] 00 (two) Medical times Branch daily. nitroglycer 2021-[id number] 1 [facility] in 0.4 mg 1-10 tablet ity of sublingual 00:00: under the [place] tablet 00 tongue Medical every 5 Branch (five) minutes as needed for Chest pain. albuterol 2020-0 Yes [id number] 2{puff} Inhale 2 [facility] (PROAIR 1-10 Puffs ity of HFA) 90 00:00: every 6 [place] mcg/actuati 00 (six) Medical on inhaler hours as Branc h needed for Wheezing or Shortness of Breath. gabapentin 2020-0 Yes [id number] 600mg Take 2 [facility] 300 mg 1-10 capsules it[facility] of capsule 00:00: [place] mouth 2 [place] 00 (two) Medical times Branch daily. nitroglycer 2020-[id number] 1 [facility] in 0.4 mg 1-10 tablet ity of sublingual 00:00: under the [place] tablet 00 tongue Medical every 5 Branch (five) minutes as needed for Chest pain. albuterol 2020-0 Yes [id number] 2{puff} Inhale 2 [facility] (PROAIR 1-10 Puffs ity of HFA) 90 00:00: every 6 [place] mcg/actuati 00 (six) Medical on inhaler hours as Branc h needed for Wheezing or Shortness of Breath. gabapentin 2020-0 Yes [id number] 600mg Take 2 [facility] 300 mg 1-10 capsules ity of capsule 00:00: by mouth 2 [place] 00 (two) Medical times Branch daily. nitroglycer 2020-[id number] 1 [facility] in 0.4 mg 1-10 tablet ity of sublingual 00:00: under the [place] tablet 00 tongue Medical every 5 Branch (five) minutes as needed for Chest pain. albuterol 2020-0 Yes [id number] 2{puff} Inhale 2 [facility] (PROAIR 1-10 Puffs ity of HFA) 90 00:00: every 6 [place] mcg/actuati 00 (six) Medical on inhaler hours as Branc h needed for Wheezing or Shortness of Breath. gabapentin 2020-0 Yes [id number] 600mg Take 2 [facility] 300 mg 1-10 capsules ity of capsule 00:00: [place] mouth 2 [place] 00 (two) Medical times Branch daily. nitroglycer 2021-[id number] 1 [facility] in 0.4 mg 1-10 tablet ity of sublingual 00:00: under the [place] tablet 00 tongue Medical every 5 Branch (five) minutes as needed for Chest pain. albuterol Yes [id number] 2{puff} Inhale 2 [facility] (PROAIR 1-10 Puffs ity of HFA) 90 00:00: every 6 [place] mcg/actuati 00 (six) Medical on inhaler hours as Branc h needed for Wheezing or Shortness of Breath. gabapentin Yes [id number] 600mg Take 2 [facility] 300 mg 1-10 capsules ity of capsule 00:00: by mouth 2 [place] 00 (two) Medical times Branch daily. nitroglycer Yes [id number] .4mg Place 1 [facility] in 0.4 mg 1-10 tablet ity of sublingual 00:00: under the [place] tablet 00 tongue Medical every 5 Branch (five) minutes as needed for Chest pain. albuterol Yes [id number] 2{puff} Inhale 2 [facility] (PROAIR 1-10 Puffs ity of HFA) 90 00:00: every 6 [place] mcg/actuati 00 (six) Medical on inhaler hours as Branc h needed for Wheezing or Shortness of Breath. gabapentin 2021- No [id number] 600mg Take 2 [facility] 300 mg 1-10 05-25 capsules ity of capsule 00:00: 00:00 by mouth 2 [place] 00 :00 (two) Medical times Branch daily. nitroglycer 0 2021- No [id number] .4mg Place 1 [facility] in 0.4 mg 1-10 05-25 tablet ity of sublingual 00:00: 00:00 under the [place] tablet 00 :00 tongue Medical every 5 Branch (five) minutes as needed for Chest pain. albuterol 0 2021- No [id number] 2{puff} Inhale 2 [facility] (PROAIR 1-10 05-25 Puffs ity of HFA) 90 00:00: 00:00 every 6 [place] mcg/actuati 00 :00 (six) Medical on inhaler hours as Branc h needed for Wheezing or Shortness of Breath. enoxaparin Yes 40mg 40 mg, Unive rs (LOVENOX) 1-09 Subcutaneo ity of injection 23:00: us, DAILY, [place] 40 mg 00 First dose Medical on [facility] Branch 09/02/20 at 1700, Until Discontinu ed, Routine metoprolol 2020-0 Yes 100mg 100 mg, Uni vers succinate 09-02 Oral, BID, ity of XL (TOPROL 16:45: First dose [place] XL) tablet 00 on [facility] Medical 100 mg 09/02/20 at Branch 1045, Until Discontinu ed, Routine isosorbide 2020-0 Yes 120mg 120 mg, Uni vers mononitrate 09-02 Oral, ity of (IMDUR) 24 15:00: DAILY, [place] hr tablet 00 First dose Medi zaina 120 mg on [facility] Branch 09/02/20 at 0900, Until Discontinu ed, Routine fluticasone 2020-0 Yes 1{spray 1 [place], [facility] propionate 09-02 } Nasal, ity of 50 15:00: DAILY, [place] mcg/actuati 00 First dose Me dical on nasal on [facility] Branch spray 1 09/02/20 at [place] 0900, Until Discontinu ed, Routine fenofibrate 0 Yes 67mg 67 mg, Univ ers micronized 09-02 Oral, ity of (LOFIBRA) 15:00: DAILY, [place] capsule 67 00 First dose Med ical mg on [facility] Branch 09/02/20 at 0900, Until Discontinu ed, Routine DULoxetine 0 Yes 30mg 30 mg, Unive rs (CYMBALTA) 09-02 Oral, ity of capsule 30 15:00: DAILY, [place] mg 00 First dose Medical on [facility] Branch 09/02/20 at 0900, Until Discontinu ed, Routine clopidogreL 0 Yes 75mg 75 mg, Univ ers (PLAVIX) 09-02 Oral, ity of tablet 75 15:00: DAILY, [place] mg 00 First dose Medical on [facility] Branch 09/02/20 at 0900, Until Discontinu ed, Routine atorvastati 2020-0 Yes 80mg 80 mg, Univ ers n (LIPITOR) 09-02 Oral, ity of tablet 80 15:00: DAILY, [place] mg 00 First dose Medical on [facility] Branch 09/02/20 at 0900, Until Discontinu ed, Routine aspirin 2020-0 Yes 81mg 81 mg, [facility] chewable 09-02 Oral, ity of tablet 81 15:00: DAILY, [place] mg 00 First dose Medical on [facility] Branch 09/02/20 at 0900, Until Discontinu ed, Routine lisinopriL 2020- No 2.5mg 2.5 mg, [facility] (PRINIVIL,Z 09-02 Oral, ity of ESTRIL) 15:00: 16:29 DAILY, [place] tablet 2.5 00 :09 First dose Med ical mg on Sat Branch 09/02/20 at 0900, Until Discontinu ed, Routine methocarbam Yes 500mg 500 mg, [facility] oL 09-02 Oral, BID, ity of (ROBAXIN) 14:00: First dose [place] tablet 500 00 on [facility] Medical mg 09/02/20 at Branch 0800, Until Discontinu ed, Routine gabapentin Yes 300mg 300 mg, Uni vers (NEURONTIN) 09-02 Oral, BID, it y of capsule 300 14:00: First dose [place] mg 00 on [facility] Medical 09/02/20 at Branch 0800, Until Discontinu ed, Routine Sliding Yes Subcutaneo Univ ers Scale -09 us, AC, ity of Insulin-Reg 13:30: First dose [place] ular + Fsbg 00 on [facility] Medica l Testing 09/02/20 at Branch 0730, Until Discontinu ed, Routine KCL 2020-2020- No 40meq 40 mEq, Univers (KLOR-CON 09-02 Oral, ity of M20) tablet 09:15: 08:35 ONCE, 1 [place] 40 mEq 00 :00 dose, [facility] Medical 09/02/20 at Branch 0315, Routine Oxycodone 2020- No 1{tbl} Take 1 [facility] vers 10 mg Tab 09-02 tablet by ity of 08:31: 00:00 mouth [place] 17 :00 every 6 Medical (six) Branch hours as needed for Pain (scale 7-10). nitroglycer Yes .4mg 0.4 mg, Uni vers in 09-02 Sublingual ity of (NITROSTAT) 08:30: , Q5MIN [place] sublingual 19 PRN, Medical tablet 0.4 Starting Branc h mg [facility] 09/02/20 at 0230, Until Discontinu ed, Routine, Chest pain ondansetron 0 Yes 4mg 4 mg, Slow [facility] (ZOFRAN 09 IV Push, ity of (PF)) 08:30: Q6HPRN, [place] injection 4 08 Starting Medi zaina mg 09/02/20 Branch at 0230, Until Discontinu ed, Routine, Nausea and Vomiting (N/V) acetaminoph 0 Yes 650mg 650 mg, [facility] en 09 Oral, ity of (TYLENOL) 08:30: Q6HPRN, [place] tablet 650 02 Starting Medic al mg 09/02/20 Branch at 0230, Until Discontinu ed, Routine, Pain (scale 1-3) glucagon Yes 1mg 1 mg, [facility] (GLUCAGEN 09-02 Intramuscu ity of DIAGNOSTIC 08:28: lar, PRN, [place] KIT) 19 Starting Medical injection 1 09/02/20 Br anch mg at 0228, Until Discontinu ed, RADHA, Blood Glucose < or = 70 mg/dL and patient is unable to swallow or has mental changes. dextrose 50 Yes 25mL 25 mL, Univ ers % in water 09-02 Slow IV ity of (D50W) 08:28: Push, PRN, [place] injection 19 Starting Medica l 25 mL 09/02/20 Branch at 0228, Until Discontinu ed, RADHA, Blood Glucose < or = 70 mg/dL and patient is unable to swallow or has mental status changes. benzocaine- Yes 1{lozen 1 Lozenge, [facility] menthoL 09-02 ge} Oral, ity of (CEPACOL 08:01: Q4HPRN, [place] SORE THROAT 36 Starting Medi zaina (APPLE-MEN)) 09/02/20 Br anch lozenge 1 at 0201, Lozenge Until Discontinu ed, Routine, Sore throat azithromyci 2020- No 500mg 500 mg, IV Univers n 09-02 01-09 Piggyback, ity of (ZITHROMAX) 05:30: 20:18 Q24H ABX, [place] 500 mg in 00 :51 First dose Medi zaina NaCl 0.9% on Fri Branch (NS) 250 mL 09/01/20 at VIAL-MATE 2330, IV Until piggyback Discontinu ed, 250 mL
R kev for Anti-Infec tive: Empiric Therapy for Suspected Infection< br>Empiric Therapy Site: Respirator y
Durat ion of therapy: 7 days ALPRAZolam 2020- No .5mg 0.5 mg, Uni vers (XANAX) 09-02 Oral, ity of tablet 0.5 05:15: 04:39 ONCE, 1 [place] mg 00 :00 dose, Fri Medical 09/01/20 at Branch 2315, Routine HYDROcodone 2020-0 Yes 1{tbl} 1 tablet, Univers -acetaminop 09-02 Oral, ity of hen (NORCO) 04:09: Q6HPRN, [place] 10-325 mg 52 Starting Medica l tablet 1 09/01/20 Bran h tablet at 2209, Until Discontinu ed, Routine, Pain (scale 4-6) morpHINE Yes 4mg 4 mg, Slow Uni vers injection 4 09-02 IV Push, ity of mg 04:09: Q4HPRN, [place] 38 Starting Medical 09/01/20 Branch at 2209, Until Discontinu ed, Routine, Pain (scale 7-10) morpHINE 2020- No 4mg 4 mg, Slow [facility] injection 4 09-02 IV Push, ity of mg 03:15: 02:06 ONCE, 1 [place] 00 :00 dose, Fri Medical 09/01/20 at Branch 2115, STAT iohexol 2020- No 100mL 100 mL, Unive rs (OMNIPAQUE 09-02 Intravenou it y of 350 01:30: 01:15 s, ONCE, 1 [place] BULK-100 00 :00 dose, Fri Medica l mL) 09/01/20 at Branch injection 1930, 100 mL Routine ondansetron 2020- No 4mg 4 mg, Slow [facility] (ZOFRAN 09-0208 IV Push, ity of (PF)) 00:15: 23:16 ONCE, 1 [place] injection 4 00 :00 dose, Fri Med ical mg 09/01/20 at Branch 1815, RADHA morpHINE 2020- No 6mg 6 mg, Slow [facility] injection 6 -09 01-08 IV Push, ity of mg 00:15: 23:16 ONCE, 1 [place] 00 :00 dose, Fri Medical 09/01/20 at Branch 1815, STAT methocarbam 2019-08 Yes 500mg Take 500 U nivers ol 1-03 mg by ity of (ROBAXIN) 19:09: mouth 2 [place] 500 mg 27 (two) Medical tablet times Branch daily. metFORMIN 2019- Yes 1000mg Take 1,000 Univers 1,000 mg 1-03 mg by ity of tablet 19:09: mouth 2 [place] 27 (two) Medical times Branch daily with meals. fluticasone 2019-08 Yes 1{spray Use 1 [facility] propionate 1-03 } [place] in ity o f (FLONASE 19:09: each [place] ALLERGY 27 nostril Medical RELIEF) 50 daily. Branch mcg/actuati on nasal spray diclofenac 2019-08 Yes 50mg Take 50 mg U nivers 50 mg EC 1-03 by mouth ity of tablet 19:09: daily. [address] methocarbam 2019-08 Yes 500mg Take 500 U nivers ol 1-03 mg by ity of (ROBAXIN) 19:09: mouth 2 [place] 500 mg 27 (two) Medical tablet times Branch daily. metFORMIN 2019- Yes 1000mg Take 1,000 [facility] 1,000 mg 1-03 mg by ity of tablet 19:09: mouth 2 [place] 27 (two) Medical times Branch daily with meals. fluticasone 2019-08 Yes 1{spray Use 1 [place] propionate 1-03 } [place] in ity o f (FLONASE 19:09: each [place] ALLERGY 27 nostril Medical RELIEF) 50 daily. Branch mcg/actuati on nasal spray diclofenac 2019- Yes 50mg Take 50 mg U nivers 50 mg EC 1-03 by mouth ity of tablet 19:09: daily. [address] methocarbam 2019- Yes 500mg Take 500 U nivers ol 1-03 mg by ity of (ROBAXIN) 19:09: mouth 2 [place] 500 mg 27 (two) Medical tablet times Branch daily. metFORMIN 2020- Yes 1000mg Take 1,000 [facility] 1,000 mg 1-03 mg by ity of tablet 19:09: mouth 2 [place] 27 (two) Medical times Branch daily with meals. fluticasone 2019-08 Yes 1{spray Use 1 [place] propionate 1-03 } [place] in ity o f (FLONASE 19:09: each [place] ALLERGY 27 nostril Medical RELIEF) 50 daily. Branch mcg/actuati on nasal spray diclofenac 2019-08 Yes 50mg Take 50 mg U nivers 50 mg EC 1-03 by mouth ity of tablet 19:09: daily. [address] methocarbam 2019-08 Yes 500mg Take 500 U nivers ol 1-03 mg by ity of (ROBAXIN) 19:09: mouth 2 [place] 500 mg 27 (two) Medical tablet times Branch daily. metFORMIN 2020- Yes 1000mg Take 1,000 [facility] 1,000 mg 1-03 mg by ity of tablet 19:09: mouth 2 [place] [address] (two) Medical times Branch daily with meals. fluticasone 2019-08 Yes 1{spray Use 1 [place] propionate 1-03 } [place] in ity o f (FLONASE 19:09: each [place] ALLERGY 27 nostril Medical RELIEF) 50 daily. Branch mcg/actuati on nasal spray diclofenac 2019-08 Yes 50mg Take 50 mg U nivers 50 mg EC 1-03 by mouth ity of tablet 19:09: daily. [address] methocarbam 2019-08 Yes 500mg Take 500 U nivers ol 1-03 mg by ity of (ROBAXIN) 19:09: mouth 2 [place] 500 mg 27 (two) Medical tablet times Branch daily. metFORMIN 2020- Yes 1000mg Take 1,000 [facility] 1,000 mg 1-03 mg by ity of tablet 19:09: mouth 2 [place] [address] (two) Medical times Branch daily with meals. fluticasone 2019- Yes 1{spray Use 1 [place] propionate 1-03 } [place] in ity o f (FLONASE 19:09: each [place] ALLERGY 27 nostril Medical RELIEF) 50 daily. Branch mcg/actuati on nasal spray diclofenac 2019-08 Yes 50mg Take 50 mg U nivers 50 mg EC 1-03 by mouth ity of tablet 19:09: daily. [address] methocarbam 2019-08 Yes 500mg Take 500 U nivers ol 0-10 mg by ity of (ROBAXIN) 19:51: mouth 2 [place] 500 mg 57 (two) Medical tablet times Branch daily. metFORMIN 2020-1 Yes 1000mg Take 1,000 Univers 1,000 mg 0-10 mg by ity of tablet 19:51: mouth 2 [place] [id number] (two) Medical times [place] daily with meals. fluticasone 2019-08 Yes 1{spray Use 1 [facility] [place] propionate 0-10 } [place] in ity o f (FLONASE 19:51: each [place] ALLERGY nostril Medical RELIEF) 50 daily. Branch mcg/actuati on nasal spray diclofenac 2019- Yes 50mg Take 50 mg U nivers 50 mg EC 0-10 by mouth ity of tablet 19:51: daily. [place] [address] Medical Branch amLODIPine 2019-08 Yes 2.5mg 2.5 mg, Uni vers (NORVASC) 0-10 Oral, ity of tablet 2.5 14:00: DAILY, [place] mg 00 First dose Medical (after Branch last modificati on) on 06/03/20 at 0900, Until Discontinu ed, Routine pantoprazol 2019-08 Yes 40mg 40 mg, Univ ers e 0-10 Oral, ity of (PROTONIX) 14:00: DAILY, [place] EC tablet 00 First dose Medi zaina 40 mg on Sat Branch 06/03/20 at 0900, Until Discontinu ed, Routine lisinopriL 2019-08 Yes 2.5mg 2.5 mg, Uni vers (PRINIVIL,Z 0-10 Oral, ity of ESTRIL) 14:00: DAILY, [place] tablet 2.5 00 First dose Med ical mg on Sat Branch 06/03/20 at 0900, Until Discontinu ed, Routine isosorbide 2019-08 Yes 120mg 120 mg, Uni vers mononitrate 0-10 Oral, ity of (IMDUR) 24 14:00: DAILY, [place] hr tablet 00 First dose Medi zaina 120 mg on Sat Branch 06/03/20 at 0900, Until Discontinu ed, Routine fluticasone 2019-08 Yes 1{spray 1 [place], [facility] propionate 0-10 } Nasal, ity of 50 14:00: DAILY, [place] mcg/actuati 00 First dose Me dical on nasal on Sat Branch spray 1 06/03/20 [place] at 0900, Until Discontinu ed, Routine fenofibrate 2019-08 Yes 67mg 67 mg, Univ ers micronized 0-10 Oral, ity of (LOFIBRA) 14:00: DAILY, [place] capsule 67 00 First dose Med ical mg on Sat Branch 06/03/20 at 0900, Until Discontinu ed, Routine clopidogreL 2020- Yes 75mg 75 mg, Univ ers (PLAVIX) 0-10 Oral, ity of tablet 75 14:00: DAILY, [place] mg 00 First dose Medical on Sat Branch 06/03/20 at 0900, Until Discontinu ed, Routine atorvastati 2019- Yes 80mg 80 mg, Univ ers n (LIPITOR) 0-10 Oral, ity of tablet 80 14:00: DAILY, [place] mg 00 First dose Medical on Sat Branch 06/03/20 at 0900, Until Discontinu ed, Routine aspirin 2020- Yes 81mg 81 mg, [facility] chewable 0-10 Oral, ity of tablet 81 14:00: DAILY, [place] mg 00 First dose Medical on Sat Branch 06/03/20 at 0900, Until Discontinu ed, Routine Sliding 2020- Yes Subcutaneo Univ ers Scale 0-10 us, AC, ity of Insulin - 12:30: First dose [place] Aspart 00 (after Medical (NOVOLOG) + last Branch Fsbg modificati Testing on) on 06/03/20 at 0730, Until Discontinu ed, Routine magnesium 2019- Yes 400mg 400 mg, Univ ers oxide 0-10 Oral, BID, ity of (MAG-OX 05:30: First dose [place] 400) tablet 00 on [facility] Medica l 400 mg 06/03/20 Branch at 0030, Until Discontinu ed, Routine glipiZIDE 2019- Yes 5mg 5 mg, Univers (GLUCOTROL) 0-10 Oral, ity of tablet 5 mg 02:30: BIDAC, [place] 00 First dose Medical on Fri Branch 06/02/20 at 2130, Until Discontinu ed, Routine ranolazine 2019- Yes 500mg 500 mg, Uni vers (RANEXA) 12 0-10 Oral, ity of hr tablet 02:30: Q12H, [place] 500 mg 00 First dose Medical on Fri Branch 06/02/20 at 2130, Until Discontinu ed, Routine traMADoL 2020- Yes 50mg 50 mg, Univers (ULTRAM) 0-10 Oral, ity of tablet 50 02:26: Q8HPRN, [place] mg 46 Starting Medical Fri Branch 06/02/20 at 2126, Until Discontinu ed, Routine, Pain (scale 4-6), Pain (scale 7-10) metoprolol 2019-08 Yes 100mg 100 mg, Uni vers succinate 0-10 Oral, BID, ity of XL (TOPROL 01:00: First dose [place] XL) tablet 00 on Fri Medical 100 mg 06/02/20 at [place] 1999, Until Discontinu ed, Routine methocarbam 2019-08 Yes 500mg 500 mg, [facility] oL 0-10 Oral, BID, ity of (ROBAXIN) 01:00: First dose [place] tablet 500 00 on Fri Medical mg 06/02/20 at [place] 1999, Until Discontinu ed, Routine gabapentin 2019-08 Yes 600mg 600 mg, Uni vers (NEURONTIN) 0-10 Oral, TID, it y of capsule 600 01:00: First dose [place] mg 00 on Fri Medical 06/02/20 at [place] 1999, Until Discontinu ed, Routine ranolazine 2019-08 2020- No [id number] 500mg Take 1 [facility] 500 mg 12 0-10 11-10 tablet by ity of hr tablet 00:00: 05:59 mouth [place] 00 :00 every 12 Medical (twelve) Branch hours for 30 days. metoprolol 2019-08 2020- No [id number] 100mg Take 1 [facility] succinate 0-10 11-10 tablet by ity of XL 100 mg 00:00: 05:59 mouth 2 [place] 24 hr 00 :00 (two) Medical tablet times Branch daily for 30 days. glipiZIDE 5 2019-08 2020- No [id number] 5mg Take 1 [facility] mg tablet 0-10 11-10 tablet by ity of 00:00: 05:59 mouth 2 [place] 00 :00 (two) Medical times Branch daily before breakfast and dinner for 30 days. ranolazine 2019-08 2020- No [id number] 500mg Take 1 [facility] 500 mg 12 0-10 11-10 tablet by ity of hr tablet 00:00: 05:59 mouth [place] 00 :00 every 12 Medical (twelve) Branch hours for 30 days. metoprolol 2019-08 2020- No [id number] 100mg Take 1 [facility] succinate 0-10 11-10 tablet by ity of XL 100 mg 00:00: 05:59 mouth 2 [place] 24 hr 00 :00 (two) Medical tablet times Branch daily for 30 days. glipiZIDE 5 2019-08- No [id number] 5mg Take 1 [facility] mg tablet 0-10 11-10 tablet by ity of 00:00: 05:59 mouth 2 [place] 00 :00 (two) Medical times Branch daily before breakfast and dinner for 30 days. ranolazine 2019-2019- No [id number] 500mg Take 1 [facility] 500 mg 12 0-10 11-10 tablet by ity of hr tablet 00:00: 05:59 mouth [place] 00 :00 every 12 Medical (twelve) Branch hours for 30 days. metoprolol 2019-08- No [id number] 100mg Take 1 [facility] succinate 0-10 11-10 tablet by ity of XL 100 mg 00:00: 05:59 mouth 2 [place] 24 hr 00 :00 (two) Medical tablet times Branch daily for 30 days. glipiZIDE 5 2019-08- No [id number] 5mg Take 1 [facility] mg tablet 0-10 11-10 tablet by ity of 00:00: 05:59 mouth 2 [place] 00 :00 (two) Medical times Branch daily before breakfast and dinner for 30 days. ranolazine 2019-08- No [id number] 500mg Take 1 [facility] 500 mg 12 0-10 11-10 tablet by ity of hr tablet 00:00: 05:59 mouth [place] 00 :00 every 12 Medical (twelve) Branch hours for 30 days. metoprolol 2019-08- No [id number] 100mg Take 1 [facility] succinate 0-10 11-10 tablet by ity of XL 100 mg 00:00: 05:59 mouth 2 [place] 24 [place] 00 :00 (two) Medical tablet times Branch daily for 30 days. glipiZIDE 5 2019-08- No [id number] 5mg Take 1 [facility] mg tablet 0-10 11-10 tablet by ity of 00:00: 05:59 mouth 2 [place] 00 :00 (two) Medical times Branch daily before breakfast and dinner for 30 days. ranolazine 2019-08- No [id number] 500mg Take 1 [facility] 500 mg 12 0-10 11-10 tablet by ity of hr tablet 00:00: 05:59 mouth [place] 00 :00 every 12 Medical (twelve) Branch hours for 30 days. metoprolol 2019-08- No [id number] 100mg Take 1 [facility] succinate 0-10 11-10 tablet by ity of XL 100 mg 00:00: 05:59 mouth 2 [place] 24 hr 00 :00 (two) Medical tablet times Branch daily for 30 days. glipiZIDE 5 2019-08 2020- No [id number] 5mg Take 1 [facility] mg tablet 0-10 11-10 tablet by ity of 00:00: 05:59 mouth 2 [place] 00 :00 (two) Medical times Branch daily before breakfast and dinner for 30 days. nitroglycer 2019-08 Yes .4mg 0.4 mg, Uni vers in 0-09 Sublingual ity of (NITROSTAT) 22:21: , Q5MIN [place] sublingual 47 PRN, Medical tablet 0.4 Starting Branc h mg 06/02/20 at 1721, Until Discontinu ed, Routine, Chest pain ondansetron 2019-08 Yes 4mg 4 mg, Slow [facility] (ZOFRAN 0-09 IV Push, ity of (PF)) 21:45: Q6HPRN, [place] injection 4 16 Starting Medi zaina mg Fri Branch 06/02/20 at 1645, Until Discontinu ed, Routine, Nausea and Vomiting (N/V) morpHINE 2019-08- No 2mg 2 mg, Slow [facility] injection 2 009 10-10 IV Push, ity of mg 21:43: 02:27 Q6HPRN, [place] 22 :02 Starting Medical Fri Branch 06/02/20 at 1643, Until 06/02/20 at 2127, Routine, Chest pain acetaminoph 2019-08 Yes 650mg 650 mg, [facility] en 0-09 Oral, ity of (TYLENOL) 21:07: Q6HPRN, [place] tablet 650 06 Starting Medic al mg Fri Branch 06/02/20 at 1607, Until Discontinu ed, Routine, Pain (scale 1-3) FENTanyl PF 2019-08- No 75ug 75 mcg, [facility] (SUBLIMAZE 0-09 10-09 Slow IV ity o f (PF)) 19:45: 18:45 Push, [place] injection 00 :00 ONCE, 1 Medical 75 mcg dose, Fri Branch 06/02/20 at 1445, STAT sulfur 2019-08 2020- No 5mL 5 mL, Univers hexafluorid 0-09 10-09 Intravenou i ty of e microsphr 19:30: 19:25 s, ONCE, 1 [place] (LUMASON) 00 :00 dose, Fri Medic al injection 5 06/02/20 at Br anch mL 1430, Routine
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 member approving Restricted medication : KATHRYN MEREDITH ondansetron 2019-08- No 4mg 4 mg, Slow [facility] (ZOFRAN 06-02 IV Push, ity of (PF)) 18:00: 17:20 ONCE, 1 [place] injection 4 00 :00 dose, Fri Med ical mg 06/02/20 at Branch 1300, RADHA FENTanyl PF 2019-08- No 100ug 100 mcg, Univers (SUBLIMAZE 06-02 Slow IV ity o f (PF)) 18:00: 17:20 Push, [place] injection 00 :00 ONCE, 1 Medical 100 mcg dose, Fri Branch 06/02/20 at 1300, Routine aspirin 2019-08- No 325mg 325 mg, Unive rs tablet 325 06-02 Oral, ity of mg 16:45: 17:20 ONCE, 1 [place] 00 :00 dose, Fri Medical 06/02/20 at Branch 1145, STAT sodium 2019-08 Yes 5mL 5 mL, Univers chloride 0 Intravenou ity o f (NS) 16:37: s, PRN, [place] injection 5 50 Starting Medi zaina mL Fri Branch 06/02/20 at 1137, Until Discontinu ed, Routine, IV line flushing amLODIPine 2019-08 Yes 2.5mg 2.5 mg, Uni vers (NORVASC) 0-05 Oral, ity of tablet 2.5 14:00: DAILY, [place] mg 00 First dose Medical on Mon Branch 05/29/20 at 0900, Until Discontinu ed, Routine aspirin 81 2019-08 Yes [id number] 81mg Take 1 [facility] mg chewable 0-05 tablet by ity of tablet 00:00: mouth [place] 00 daily. Medical Branch aspirin 81 2019-08 Yes [id number] 81mg Take 1 [facility] mg chewable 0-05 tablet by ity of tablet 00:00: mouth 00 daily. [facility] aspirin 81 2019-08 Yes [id number] 81mg Take 1 [facility] [place] mg chewable 0-05 tablet by ity of tablet 00:00: mouth [place] 00 daily. [facility] aspirin 81 2019- Yes [id number] 81mg Take 1 [facility] [place] mg chewable 0-05 tablet by ity of tablet 00:00: mouth [place] 00 daily. [facility] aspirin 81 2019- Yes [id number] 81mg Take 1 [facility] [place] mg chewable 0-05 tablet by ity of tablet 00:00: mouth [place] 00 daily. [facility] aspirin 81 2019- Yes [id number] 81mg Take 1 [facility] [place] mg chewable 0-05 tablet by ity of tablet 00:00: mouth [place] 00 daily. [facility] aspirin 81 2019- Yes [id number] 81mg Take 1 [facility] [place] mg chewable 0-05 tablet by ity of tablet 00:00: mouth [place] 00 daily. [facility] aspirin 81 2019- Yes [id number] 81mg Take 1 [facility] [place] mg chewable 0-05 tablet by ity of tablet 00:00: mouth [place] 00 daily. [facility] aspirin 81 2019- Yes [id number] 81mg Take 1 [facility] [place] mg chewable 0-05 tablet by ity of tablet 00:00: mouth [place] 00 daily. [facility] aspirin 81 2019- Yes [id number] 81mg Take 1 [facility] [place] mg chewable 0-05 tablet by ity of tablet 00:00: mouth [place] 00 daily. [facility] aspirin 81 2019- Yes [id number] 81mg Take 1 [facility] [place] mg chewable 0-05 tablet by ity of tablet 00:00: mouth [place] 00 daily. [facility] aspirin 81 2019- Yes [id number] 81mg Take 1 [facility] [place] mg chewable 0-05 tablet by ity of tablet 00:00: mouth [place] 00 daily. [facility] aspirin 81 2019- Yes [id number] 81mg Take 1 [facility] [place] mg chewable 0-05 tablet by ity of tablet 00:00: mouth [place] 00 daily. [facility] aspirin 81 2020- Yes [id number] 81mg Take 1 [facility] [place] mg chewable 0-05 tablet by ity of tablet 00:00: mouth [place] 00 daily. [facility] aspirin 81 2020- Yes [id number] 81mg Take 1 [facility] [place] mg chewable 0-05 tablet by ity of tablet 00:00: mouth [place] 00 daily. [facility] aspirin 81 2019- Yes [id number] 81mg Take 1 [facility] [place] mg chewable 0-05 tablet by ity of tablet 00:00: mouth [place] 00 daily. [facility] aspirin 81 2019-08 Yes [id number] 81mg Take 1 [facility] [place] mg chewable 0-05 tablet by ity of tablet 00:00: mouth [place] 00 daily. [facility] aspirin 81 2019-08 Yes [id number] 81mg Take 1 [facility] [place] mg chewable 0-05 tablet by ity of tablet 00:00: mouth [place] 00 daily. [facility] aspirin 81 2019-08- No [id number] 81mg Take 1 U nivers mg chewable 0-05 05-25 tablet by it y of tablet 00:00: 00:00 mouth [place] 00 :00 daily. Medical Branch methocarbam 2019-08 Yes 500mg Take 500 U nivers ol 0-04 mg by ity of (ROBAXIN) 20:49: mouth 2 [place] 500 mg 53 (two) Medical tablet times Branch daily. metFORMIN 2019-08 Yes 1000mg Take 1,000 [facility] 1,000 mg 0-04 mg by ity of tablet 20:49: mouth 2 [place] 53 (two) Medical times Branch daily with meals. fluticasone 2019-08 Yes 1{spray Use 1 [facility] [place] propionate 0-04 } [place] in ity o f (FLONASE 20:49: each [place] ALLERGY 53 nostril Medical RELIEF) 50 daily. Branch mcg/actuati on nasal spray diclofenac 2019-08 Yes 50mg Take 50 mg U nivers 50 mg EC 0-04 by mouth ity of tablet 20:49: daily. [address] methocarbam 2019-08 Yes 500mg Take 500 U nivers ol 0-04 mg by ity of (ROBAXIN) 20:49: mouth 2 [place] 500 mg 53 (two) Medical tablet times Branch daily. metFORMIN 2019-08 Yes 1000mg Take 1,000 Univers 1,000 mg 0-04 mg by ity of tablet 20:49: mouth 2 [place] 53 (two) Medical times Branch daily with meals. fluticasone 2019-08 Yes 1{spray Use 1 [facility] [place] propionate 0-04 } [place] ity o f (FLONASE 20:49: each [place] ALLERGY 53 nostril Medical RELIEF) 50 daily. Branch mcg/actuati on nasal spray diclofenac 2019-08 Yes 50mg Take 50 mg U nivers 50 mg EC 0-04 by mouth ity of tablet 20:49: daily. [place] 53 Medical Branch flu vaccine 2019-08 2020- No .5mL 0.5 mL, [facility] [place] 6 months 0-04 10-04 Intramuscu ity of and up (PF) 17:15: 18:17 lar, ONCE, [place] (FLUZONE 00 :00 1 dose, Medical QUAD [facility] 05/28/20 at (PF)) 1215, syringe 0.5 Routine mL pneumococca 2019-08- No .5mL 0.5 mL, [facility] [place] l vac 0-04 10-04 Intramuscu ity of polyvalent 17:15: 18:58 lar, ONCE, [place] (PNEUMOVAX- 00 :00 1 dose, Medic al 23) [facility] injection 05/28/20 at 0.5 mL 1215, Routine metoprolol 2019-08 No 50mg Take 50 mg Univers tartrate 50 0 10-04 by mouth 2 i ty of mg tablet 16:26: 00:00 (two) [place] 33 :00 times Medical daily. [place] buprenorphi 2019-08- No 10{patc Apply 10 Univers ne 10 0- 10-04 h} Patches to ity of mcg/hour 16:26: 00:00 skin. [place] patch 33 :00 [facility] fenofibrate 2019-08 Yes 67mg 67 mg, Univ ers micronized 0-04 Oral, ity of (LOFIBRA) 14:00: DAILY, [place] capsule 67 00 First dose Med ical mg on [facility] 05/28/20 at 0900, Until Discontinu ed, Routine isosorbide 2019-08 Yes 120mg 120 mg, Uni vers mononitrate 0-04 Oral, ity of (IMDUR) 24 14:00: DAILY, [place] hr tablet 00 First dose Medi zaina 120 mg (after Branch last modificati on) on [place] 05/28/20 at 0900, Until Discontinu ed, Routine magnesium 2019-08- No 2g 2 g, IV Univ ers sulfate in 0-04 Piggyback, it y of water 2 06:30: 09:13 ONCE, 1 [place] gram/50 mL 00 :00 dose, [place] Medi zaina (4 %) 05/28/20 at [place] infusion 2 0130, g Routine KCL 2020-1 2020- No 20meq 20 mEq, Univers (KLOR-CON 0-04 10-04 Oral, ity of M20) tablet 06:30: 09:13 ONCE, 1 [place] 20 mEq 00 :00 dose, [facility] 05/28/20 at Branch 0130, Routine morpHINE 2019-08 2020- No 2mg 2 mg, Slow [facility] [place] injection 2 0-04 10-04 IV Push, ity of mg 04:21: 04:39 ONCE, 1 [place] 00 :00 dose, [facility] 05/27/20 at Branch 2330, Routine morpHINE 2019-08 2020- No 2mg 2 mg, Slow [facility] [place] injection 2 0-04 10-04 IV Push, ity of mg 04:00: 02:51 ONCE, 1 [place] 00 :00 dose, [facility] 05/27/20 at Branch 2300, Routine hydrOXYzine 2019-08 2020- No 50mg 50 mg, Uni vers (ATARAX) 0-04 10-04 Oral, ity of tablet 50 03:00: 04:12 ONCE, 1 [place] mg 00 :00 dose, [facility] 05/27/20 at Branch 2200, Routine metoprolol 2019-08 Yes 100mg 100 mg, Uni vers tartrate 0-04 Oral, BID, ity o f (LOPRESSOR) 01:00: First dose [place] tablet 100 00 (after Medical mg last Branch modificati on) on [facility] 05/27/20 at 1999, Until Discontinu ed, Routine heparin 2019-08 Yes 5000U 5,000 Univers (porcine) 0-04 Units, ity of injection 01:00: Subcutaneo [place] 5,000 Units 00 us, Q12H, Med ical First dose Branch on [facility] 05/27/20 at 1999, Until Discontinu ed, Routine fenofibrate 2019-08 Yes [id number] 67mg Take 1 U nivers micronized 0-04 capsule by ity of 67 mg 00:00: mouth [place] capsule 00 daily. Medical Branch isosorbide 2019-08 Yes [id number] 120mg Take 1 U nivers mononitrate 0-04 tablet by ity of 120 mg 24 00:00: mouth [place] hr tablet 00 daily. Medical Branch lisinopriL 2019-08 Yes [id number] 2.5mg Take 1 U nivers 2.5 mg 0-04 tablet by ity of tablet 00:00: mouth [place] 00 daily. Medical Branch atorvastati 2020-1 Yes [id number] 80mg Take 1 U nivers n 80 mg 0-04 tablet by ity of tablet 00:00: mouth [place] 00 daily. Medical Branch clopidogreL 2020-1 Yes [id number] 75mg Take 1 U nivers 75 mg 0-04 tablet by ity of tablet 00:00: mouth [place] 00 daily. Medical Branch fenofibrate 2020-1 Yes [id number] 67mg Take 1 U nivers micronized 0-04 capsule by ity of 67 mg 00:00: mouth [place] capsule 00 daily. Medical Branch isosorbide 2020-1 Yes [id number] 120mg Take 1 U nivers mononitrate 0-04 tablet by ity of 120 mg 24 00:00: mouth [place] hr tablet 00 daily. Medical Branch lisinopriL 2020-1 Yes [id number] 2.5mg Take 1 U nivers 2.5 mg 0-04 tablet by ity of tablet 00:00: mouth [place] 00 daily. Medical Branch atorvastati 2020-1 Yes [id number] 80mg Take 1 U nivers n 80 mg 0-04 tablet by ity of tablet 00:00: mouth [place] 00 daily. Medical Branch clopidogreL 2020-1 Yes [id number] 75mg Take 1 U nivers 75 mg 0-04 tablet by ity of tablet 00:00: mouth [place] 00 daily. Medical Branch fenofibrate 2020-1 Yes [id number] 67mg Take 1 U nivers micronized 0-04 capsule by ity of 67 mg 00:00: mouth [place] capsule 00 daily. Medical Branch isosorbide 2020-1 Yes [id number] 120mg Take 1 U nivers mononitrate 0-04 tablet by ity of 120 mg 24 00:00: mouth [place] hr tablet 00 daily. Medical Branch lisinopriL 2020-1 Yes [id number] 2.5mg Take 1 U nivers 2.5 mg 0-04 tablet by ity of tablet 00:00: mouth [place] 00 daily. Medical Branch atorvastati 2020-1 Yes [id number] 80mg Take 1 U nivers n 80 mg 0-04 tablet by ity of tablet 00:00: mouth [place] 00 daily. Medical Branch clopidogreL 2020-1 Yes [id number] 75mg Take 1 U nivers 75 mg 0-04 tablet by ity of tablet 00:00: mouth [place] 00 daily. Medical Branch fenofibrate 2020-1 Yes [id number] 67mg Take 1 U nivers micronized 0-04 capsule by ity of 67 mg 00:00: mouth [place] capsule 00 daily. Medical Branch isosorbide 2020-1 Yes [id number] 120mg Take 1 U nivers mononitrate 0-04 tablet by ity of 120 mg 24 00:00: mouth [place] hr tablet 00 daily. Medical Branch lisinopriL 2020-1 Yes [id number] 2.5mg Take 1 U nivers 2.5 mg 0-04 tablet by ity of tablet 00:00: mouth [place] 00 daily. Medical Branch atorvastati 2020-1 Yes [id number] 80mg Take 1 U nivers n 80 mg 0-04 tablet by ity of tablet 00:00: mouth [place] 00 daily. Medical Branch clopidogreL 2020-1 Yes [id number] 75mg Take 1 U nivers 75 mg 0-04 tablet by ity of tablet 00:00: mouth [place] 00 daily. Medical Branch fenofibrate 2020-1 Yes [id number] 67mg Take 1 U nivers micronized 0-04 capsule by ity of 67 mg 00:00: mouth [place] capsule 00 daily. Medical Branch isosorbide 2020-1 Yes [id number] 120mg Take 1 U nivers mononitrate 0-04 tablet by ity of 120 mg 24 00:00: mouth [place] hr tablet 00 daily. Medical Branch lisinopriL 2020-1 Yes [id number] 2.5mg Take 1 U nivers 2.5 mg 0-04 tablet by ity of tablet 00:00: mouth [place] 00 daily. Medical Branch atorvastati 2020-1 Yes [id number] 80mg Take 1 U nivers n 80 mg 0-04 tablet by ity of tablet 00:00: mouth [place] 00 daily. Medical Branch clopidogreL 2020-1 Yes [id number] 75mg Take 1 U nivers 75 mg 0-04 tablet by ity of tablet 00:00: mouth [place] 00 daily. Medical Branch fenofibrate 2020-1 Yes [id number] 67mg Take 1 U nivers micronized 0-04 capsule by ity of 67 mg 00:00: mouth [place] capsule 00 daily. Medical Branch isosorbide 2020-1 Yes [id number] 120mg Take 1 U nivers mononitrate 0-04 tablet by ity of 120 mg 24 00:00: mouth [place] hr tablet 00 daily. Medical Branch lisinopriL 2020-1 Yes [id number] 2.5mg Take 1 U nivers 2.5 mg 0-04 tablet by ity of tablet 00:00: mouth [place] 00 daily. Medical Branch atorvastati 2020-1 Yes [id number] 80mg Take 1 U nivers n 80 mg 0-04 tablet by ity of tablet 00:00: mouth [place] 00 daily. Medical Branch clopidogreL 2020-1 Yes [id number] 75mg Take 1 U nivers 75 mg 0-04 tablet by ity of tablet 00:00: mouth [place] 00 daily. Medical Branch fenofibrate 2020-1 Yes [id number] 67mg Take 1 U nivers micronized 0-04 capsule by ity of 67 mg 00:00: mouth [place] capsule 00 daily. Medical Branch isosorbide 2020-1 Yes [id number] 120mg Take 1 U nivers mononitrate 0-04 tablet by ity of 120 mg 24 00:00: mouth [place] hr tablet 00 daily. Medical Branch atorvastati 2020-1 Yes [id number] 80mg Take 1 U nivers n 80 mg 0-04 tablet by ity of tablet 00:00: mouth [place] 00 daily. Medical Branch clopidogreL 2020-1 Yes [id number] 75mg Take 1 U nivers 75 mg 0-04 tablet by ity of tablet 00:00: mouth [place] 00 daily. Medical Branch fenofibrate 2020-1 Yes [id number] 67mg Take 1 U nivers micronized 0-04 capsule by ity of 67 mg 00:00: mouth [place] capsule 00 daily. Medical Branch isosorbide 2020-1 Yes [id number] 120mg Take 1 U nivers mononitrate 0-04 tablet by ity of 120 mg 24 00:00: mouth [place] hr tablet 00 daily. Medical Branch atorvastati 2020-1 Yes [id number] 80mg Take 1 U nivers n 80 mg 0-04 tablet by ity of tablet 00:00: mouth [place] 00 daily. Medical Branch clopidogreL 2020-1 Yes [id number] 75mg Take 1 U nivers 75 mg 0-04 tablet by ity of tablet 00:00: mouth [place] 00 daily. Medical Branch fenofibrate 2020-1 Yes [id number] 67mg Take 1 U nivers micronized 0-04 capsule by ity of 67 mg 00:00: mouth [place] capsule 00 daily. Medical Branch isosorbide 2020-1 Yes [id number] 120mg Take 1 U nivers mononitrate 0-04 tablet by ity of 120 mg 24 00:00: mouth [place] hr tablet 00 daily. Medical Branch atorvastati 2020-1 Yes [id number] 80mg Take 1 U nivers n 80 mg 0-04 tablet by ity of tablet 00:00: mouth [place] 00 daily. Medical Branch clopidogreL 2020-1 Yes [id number] 75mg Take 1 U nivers 75 mg 0-04 tablet by ity of tablet 00:00: mouth [place] 00 daily. Medical Branch fenofibrate 2020-1 Yes [id number] 67mg Take 1 U nivers micronized 0-04 capsule by ity of 67 mg 00:00: mouth [place] capsule 00 daily. Medical Branch isosorbide 2020-1 Yes [id number] 120mg Take 1 U nivers mononitrate 0-04 tablet by ity of 120 mg 24 00:00: mouth [place] hr tablet 00 daily. Medical Branch atorvastati 2020-1 Yes [id number] 80mg Take 1 U nivers n 80 mg 0-04 tablet by ity of tablet 00:00: mouth [place] 00 daily. Medical Branch clopidogreL 2020-1 Yes [id number] 75mg Take 1 U nivers 75 mg 0-04 tablet by ity of tablet 00:00: mouth [place] 00 daily. Medical Branch fenofibrate 2020-1 Yes [id number] 67mg Take 1 U nivers micronized 0-04 capsule by ity of 67 mg 00:00: mouth [place] capsule 00 daily. Medical Branch isosorbide 2020-1 Yes [id number] 120mg Take 1 U nivers mononitrate 0-04 tablet by ity of 120 mg 24 00:00: mouth [place] hr tablet 00 daily. Medical Branch atorvastati 2020-1 Yes [id number] 80mg Take 1 U nivers n 80 mg 0-04 tablet by ity of tablet 00:00: mouth [place] 00 daily. Medical Branch clopidogreL 2020-1 Yes [id number] 75mg Take 1 U nivers 75 mg 0-04 tablet by ity of tablet 00:00: mouth [place] 00 daily. Medical Branch fenofibrate 2020-1 Yes [id number] 67mg Take 1 U nivers micronized 0-04 capsule by ity of 67 mg 00:00: mouth [place] capsule 00 daily. Medical Branch isosorbide 2020-1 Yes [id number] 120mg Take 1 U nivers mononitrate 0-04 tablet by ity of 120 mg 24 00:00: mouth [place] hr tablet 00 daily. Medical Branch atorvastati 2020-1 Yes [id number] 80mg Take 1 U nivers n 80 mg 0-04 tablet by ity of tablet 00:00: mouth [place] 00 daily. Medical Branch clopidogreL 2020-1 Yes [id number] 75mg Take 1 U nivers 75 mg 0-04 tablet by ity of tablet 00:00: mouth [place] 00 daily. Medical Branch fenofibrate 2020-1 Yes [id number] 67mg Take 1 U nivers micronized 0-04 capsule by ity of 67 mg 00:00: mouth [place] capsule 00 daily. Medical Branch isosorbide 2020-1 Yes [id number] 120mg Take 1 U nivers mononitrate 0-04 tablet by ity of 120 mg 24 00:00: mouth [place] hr tablet 00 daily. Medical Branch atorvastati 2020-1 Yes [id number] 80mg Take 1 U nivers n 80 mg 0-04 tablet by ity of tablet 00:00: mouth [place] 00 daily. Medical Branch fenofibrate 2019-1 Yes [id number] 67mg Take 1 U nivers micronized 0-04 capsule by ity of 67 mg 00:00: mouth [place] capsule 00 daily. Medical Branch isosorbide 2020-1 Yes [id number] 120mg Take 1 U nivers mononitrate 0-04 tablet by ity of 120 mg 24 00:00: mouth [place] hr tablet 00 daily. Medical Branch atorvastati 2020-1 Yes [id number] 80mg Take 1 U nivers n 80 mg 0-04 tablet by ity of tablet 00:00: mouth [place] 00 daily. Medical Branch fenofibrate 2020-1 Yes [id number] 67mg Take 1 U nivers micronized 0-04 capsule by ity of 67 mg 00:00: mouth [place] capsule 00 daily. Medical Branch isosorbide 2020-1 Yes [id number] 120mg Take 1 U nivers mononitrate 0-04 tablet by ity of 120 mg 24 00:00: mouth [place] hr tablet 00 daily. Medical Branch atorvastati 2020-1 Yes [id number] 80mg Take 1 U nivers n 80 mg 0-04 tablet by ity of tablet 00:00: mouth [place] 00 daily. Medical Branch fenofibrate 2020-1 Yes [id number] 67mg Take 1 U nivers micronized 0-04 capsule by ity of 67 mg 00:00: mouth [place] capsule 00 daily. Medical Branch isosorbide 2020-1 Yes [id number] 120mg Take 1 U nivers mononitrate 0-04 tablet by ity of 120 mg 24 00:00: mouth [place] hr tablet 00 daily. Medical Branch metoprolol 2020-1 Yes [id number] 100mg Take 1 U nivers tartrate 0-04 tablet by ity of 100 mg 00:00: mouth 2 [place] tablet 00 (two) Medical times Branch daily. atorvastati 2020-1 Yes [id number] 80mg Take 1 U nivers n 80 mg 0-04 tablet by ity of tablet 00:00: mouth [place] 00 daily. Medical Branch clopidogreL 2020-1 Yes [id number] 75mg Take 1 U nivers 75 mg 0-04 tablet by ity of tablet 00:00: mouth [place] 00 daily. Medical Branch fenofibrate 2020-1 Yes [id number] 67mg Take 1 U nivers micronized 0-04 capsule by ity of 67 mg 00:00: mouth [place] capsule 00 daily. Medical Branch isosorbide 2020-1 Yes [id number] 120mg Take 1 U nivers mononitrate 0-04 tablet by ity of 120 mg 24 00:00: mouth [place] hr tablet 00 daily. Medical Branch lisinopriL 2020-1 Yes [id number] 2.5mg Take 1 U nivers 2.5 mg 0-04 tablet by ity of tablet 00:00: mouth [place] 00 daily. Medical Branch metoprolol 2020-1 Yes [id number] 100mg Take 1 U nivers tartrate 0-04 tablet by ity of 100 mg 00:00: mouth 2 [place] tablet 00 (two) Medical times Branch daily. atorvastati 2020-1 Yes [id number] 80mg Take 1 U nivers n 80 mg 0-04 tablet by ity of tablet 00:00: mouth [place] 00 daily. Medical Branch clopidogreL 2020-1 Yes [id number] 75mg Take 1 U nivers 75 mg 0-04 tablet by ity of tablet 00:00: mouth [place] 00 daily. Medical Branch fenofibrate 2020-1 Yes [id number] 67mg Take 1 U nivers micronized 0-04 capsule by ity of 67 mg 00:00: mouth [place] capsule 00 daily. Medical Branch isosorbide 2020-1 Yes [id number] 120mg Take 1 U nivers mononitrate 0-04 tablet by ity of 120 mg 24 00:00: mouth [place] hr tablet 00 daily. Medical Branch lisinopriL 2019-08 Yes [id number] 2.5mg Take 1 U nivers 2.5 mg 0-04 tablet by ity of tablet 00:00: mouth [place] 00 daily. Medical Branch atorvastati 2019-08 Yes [id number] 80mg Take 1 U nivers n 80 mg 0-04 tablet by ity of tablet 00:00: mouth [place] 00 daily. Medical Branch clopidogreL 2019-08 Yes [id number] 75mg Take 1 U nivers 75 mg 0-04 tablet by ity of tablet 00:00: mouth [place] 00 daily. Medical Branch atorvastati 2019-08- No [id number] 80mg Take 1 Univers n 80 mg 0-04 05-25 tablet by ity of tablet 00:00: 00:00 mouth [place] 00 :00 daily. Medical Branch fenofibrate 2019-08- No [id number] 67mg Take 1 Univers micronized 0-04 05-25 capsule by it y of 67 mg 00:00: 00:00 mouth [place] capsule 00 :00 daily. Medical Branch isosorbide 2019-08- No [id number] 120mg Take 1 Univers mononitrate 0-04 05-25 tablet by it y of 120 mg 24 00:00: 00:00 mouth [place] hr tablet 00 :00 daily. Medical Branch clopidogreL 2019-08- No [id number] 75mg Take 1 Univers 75 mg 0-04 04-27 tablet by ity of tablet 00:00: 00:00 mouth [place] 00 :00 daily. Medical Branch lisinopriL 2019-08- No [id number] 2.5mg Take 1 Univers 2.5 mg 0-04 01-10 tablet by ity of tablet 00:00: 00:00 mouth [place] 00 :00 daily. Medical Branch nitroglycer 2019-08- No [id number] .4mg Place 1 Univers in 0.4 mg 0-04 11-04 tablet ity of sublingual 00:00: 05:59 under the [place] tablet 00 :00 tongue Medical every 5 Branch (five) minutes as needed for Chest pain for up to 30 days. nitroglycer 2019-08- No [id number] .4mg Place 1 Univers in 0.4 mg 0-04 11-04 tablet ity of sublingual 00:00: 05:59 under the [place] tablet 00 :00 tongue Medical every 5 Branch (five) minutes as needed for Chest pain for up to 30 days. nitroglycer 2019-08- No [id number] .4mg Place 1 Univers in 0.4 mg 0-04 11-04 tablet ity of sublingual 00:00: 05:59 under the [place] tablet 00 :00 tongue Medical every 5 Branch (five) minutes as needed for Chest pain for up to 30 days. nitroglycer 2019-08- No [id number] .4mg Place 1 Univers in 0.4 mg 0-04 11-04 tablet ity of sublingual 00:00: 05:59 under the [place] tablet 00 :00 tongue Medical every 5 Branch (five) minutes as needed for Chest pain for up to 30 days. nitroglycer 2019-08- No [id number] .4mg Place 1 Univers in 0.4 mg 0-04 11-04 tablet ity of sublingual 00:00: 05:59 under the [place] tablet 00 :00 tongue Medical every 5 Branch (five) minutes as needed for Chest pain for up to 30 days. nitroglycer 2019-08 2020- No [id number] .4mg Place 1 Univers in 0.4 mg 0-04 11-04 tablet ity of sublingual 00:00: 05:59 under the [place] tablet 00 :00 tongue Medical every 5 Branch (five) minutes as needed for Chest pain for up to 30 days. nitroglycer 2019-08 2020- No [id number] .4mg Place 1 Univers in 0.4 mg 0-04 11-04 tablet ity of sublingual 00:00: 05:59 under the [place] tablet 00 :00 tongue Medical every 5 Branch (five) minutes as needed for Chest pain for up to 30 days. metoprolol 2019-08 2020- No [id number] 100mg Take 1 Univers tartrate 0-04 10-10 tablet by ity o f 100 mg 00:00: 00:00 mouth 2 [place] tablet 00 :00 (two) Medical times Branch daily. ondansetron 2019- Yes 4mg 4 mg, Slow Univers (ZOFRAN 0-03 IV Push, ity of (PF)) 21:17: Q6HPRN, [place] injection 4 11 Starting Medi zaina mg Sat Branch 05/27/20 at 1617, Until Discontinu ed, Routine, Nausea and Vomiting (N/V) lisinopriL 2019-08 Yes 2.5mg 2.5 mg, Uni vers (PRINIVIL,Z 0-03 Oral, ity of ESTRIL) 16:30: DAILY, [place] tablet 2.5 00 First dose Med ical mg on Sat Branch 05/27/20 at 1130, Until Discontinu ed, Routine HYDROcodone 2019-08 Yes 1{tbl} 1 tablet, Univers -acetaminop 0-03 Oral, ity of hen (NORCO) 16:15: Q6HPRN, [place] 10-325 mg 00 Starting Medica l tablet 1 [facility] tablet 05/27/20 at 1115, Until Discontinu ed, Routine, Pain (scale 4-6), Pain (scale 7-10) clopidogreL 2019-08 Yes 75mg 75 mg, Univ ers (PLAVIX) 0-03 Oral, ity of tablet 75 14:00: DAILY, [place] mg 00 First dose Medical on [facility] Branch 05/27/20 at 0900, Until Discontinu ed, Routine
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 member approving Restricted medication : JUANITO TALBERT hydrOXYzine 2019-08- No 50mg 50 mg, Uni vers (ATARAX) 0-03 10-03 Oral, ity of tablet 50 02:12: 03:04 ONCE, 1 [place] mg 00 :00 dose, Fri Medical 05/26/20 at Branch 2115, Routine heparin 2019-08- No Slow IV Univer s 1,000 0-02 10-02 Push, ity of unit/mL 23:42: 23:42 TITRATE - [place] injection 15 :15 FOR Medical PROCEDURE Branch USE, 1 dose, Starting 05/26/20 at 1842, Until Fri05/26/20 at 1842, Routine midazolam 2019-08- No IV Push, Uni vers (VERSED) 0-02 10-02 TITRATE - ity o f injection 23:24: 23:24 FOR [place] 57 :57 PROCEDURE Medical USE, 1 Branch dose, Starting 05/26/20 at 1824, Until Fri05/26/20 at 1824, Routine FENTanyl PF 2019-08 2020- No Slow IV [facility] [place] (SUBLIMAZE 0-02 10-02 Push, ity of (PF)) 22:51: 22:51 TITRATE - [place] injection 36 :36 FOR Medical PROCEDURE Branch USE, 1 dose, Starting 05/26/20 at 1751, Until 05/26/20 at 1751, Routine FENTanyl PF 2019-08- No Slow IV [facility] [place] (SUBLIMAZE 0-02 10-02 Push, ity of (PF)) 22:46: 22:46 TITRATE - [place] injection 00 :00 FOR Medical PROCEDURE Branch USE, 1 dose, Starting Fri05/26/20 at 1746, Until 05/26/20 at 1746, Routine FENTanyl PF 2019-08- No Slow IV [place] (SUBLIMAZE 0-02 10-02 Push, ity of (PF)) 22:29: 22:29 TITRATE - [place] injection 29 :29 FOR Medical PROCEDURE Branch USE, 1 dose, Starting Fri05/26/20 at 1729, Until Fri05/26/20 at 1729, Routine midazolam 2019-08- No IV Push, Uni vers (VERSED) 0-02 10-02 TITRATE - ity o f injection 22:29: 22:29 FOR [place] 19 :19 PROCEDURE Medical USE, 1 Branch dose, Starting Fri05/26/20 at 1729, Until Fri05/26/20 at 1729, Routine heparin 2019-08- No Slow IV Univer s 1,000 0-02 10-02 Push, ity of unit/mL 22:20: 22:20 TITRATE - [place] injection 00 :00 FOR Medical PROCEDURE Branch USE, 1 dose, Starting Fri05/26/20 at 1720, Until Fri05/26/20 at 1720, Routine lidocaine 2019-08- No Infiltrati U nivers 1% (PF) 0-02 10-02 on, ity of (XYLOCAINE) 22:15: 22:15 TITRATE - [place] injection 00 :00 FOR Medical PROCEDURE Branch USE, 1 dose, Starting 05/26/20 at 1715, Until 05/26/20 at 1715, Routine FENTanyl PF 2019-08- No Slow IV Un [place] (SUBLIMAZE 0-02 10-02 Push, ity of (PF)) 22:10: 22:10 TITRATE - [place] injection 00 :00 FOR Medical PROCEDURE Branch USE, 1 dose, Starting Fri05/26/20 at 1710, Until Fri05/26/20 at 1710, Routine midazolam 2019-08 No IV Push, Uni vers (VERSED) 005-26 TITRATE - ity o f injection 22:10: 22:10 FOR [place] 00 :00 PROCEDURE Medical USE, 1 Branch dose, Starting Fri05/26/20 at 1710, Until Fri05/26/20 at 1710, Routine isosorbide 2019-08 No 60mg 60 mg, Univ ers mononitrate 005-27 Oral, ity of (IMDUR) 24 14:00: 16:25 DAILY, [place] tablet 00 :51 First dose Medi zaina 60 mg (after Branch last modificati on) on Fri05/26/20 at 0900, Until Discontinu ed, Routine clopidogreL 2019-08 No 600mg 600 mg, U nivers (PLAVIX) 005-26 Oral, ity of tablet 600 13:45: 16:57 ONCE, 1 [place] mg 00 :00 dose, Fri Medical 05/26/20 at Branch 0845, Routine Sliding 2019-08 Yes Subcutaneo Univ ers Scale 0-02 us, TID ity of Insulin - 13:00: MEALS+HS, [place] as Aspart 00 First dose Medical (NOVOLOG) + (after Branch Fsbg last Testing modificati on) on Fri05/26/20 at 0800, Until Discontinu ed, Routine metoprolol 2019-08 No 75mg 75 mg, Univ ers tartrate 05-27 Oral, BID, ity of (LOPRESSOR) 13:00: 20:18 First dose [place] tablet 75 00 :19 (after Medical mg last Branch modificati on) on Fri05/26/20 at 0800, Until Discontinu ed, Routine magnesium 2019-08 No 2g 2 g, IV Univ ers sulfate in 005-26 Piggyback, it y of water 2 11:00: 11:30 ONCE, 1 [place] gram/50 mL 00 :00 dose, Fri Medi zaina (4 %) 05/26/20 at Branch infusion 2 0600, g Routine hydrOXYzine 2019-08 No 50mg 50 mg, Uni vers (ATARAX) 005-26 Oral, ity of tablet 50 06:00: 05:27 ONCE, 1 [place] mg 00 :00 dose, [facility] [place] [facility] Medical 05/26/20 at Branch 0100, Routine morpHINE 2019-08- No 2mg 2 mg, Slow Un [place] injection 2 003 IV Push, ity of mg 02:48: 16:01 Q6HPRN, [place] 35 :25 Starting Medical [place] Branch 05/25/20 at 2148, Until 05/27/20 at 1101, Routine, Pain (scale 7-10) HYDROcodone 2019-08- No 1{tbl} 1 tablet, Univers -acetaminop 003 Oral, ity of hen (NORCO) 20:30: 16:01 Q4HPRN, [place] 10-325 mg 00 :25 Starting Medica l tablet 1 [facility] Branch tablet 05/25/20 at 1530, Until 05/27/20 at 1101, Routine, Pain (scale 4-6) morpHINE 2019-08- No 2mg 2 mg, Slow Un [place] injection 2 005-25 IV Push, ity of mg 18:45: 17:44 ONCE, 1 [place] 00 :00 dose, [facility] Medical 05/25/20 at Branch 1345, Routine isosorbide 2019-08- No 30mg 30 mg, Univ ers mononitrate 005-26 Oral, ity of (IMDUR) 24 16:15: 12:11 DAILY, [place] hr tablet 00 :02 First dose Medi zaina 30 mg on [place] Branch 05/25/20 at 1115, Until Discontinu ed, Routine lidocaine 2019-08- No Infiltrati U nivers 1% (PF) 005-25 on, ity of (XYLOCAINE) 13:46: 13:46 TITRATE - [place] injection 05 :05 FOR Medical PROCEDURE Branch USE, 1 dose, Starting [facility] 05/25/20 at 0846, Until [place] 05/25/20 at 0846, Routine FENTanyl PF 2019-08- No Slow IV Un [place] (SUBLIMAZE 005-25 Push, ity of (PF)) 13:45: 13:45 TITRATE - [place] injection 56 :56 FOR Medical PROCEDURE Branch USE, 1 dose, Starting Cathy 10 at 0845, Until [place] 05/25/20 at 0845, Routine midazolam 2019-08- No IV Push, Uni vers (VERSED) 005-25 TITRATE - ity o f injection 13:45: 13:45 FOR [place] 52 :52 PROCEDURE Medical USE, 1 Branch dose, Starting Cathy 10 at 0845, Until [place] 05/25/20 at 0845, Routine FENTanyl PF 2019-08- No Slow IV Un [place] (SUBLIMAZE 05-25 Push, ity of (PF)) 13:29: 13:29 TITRATE - [place] injection 09 :09 FOR Medical PROCEDURE Branch USE, 1 dose, Starting [place]athy 10 at 0829, Until [place] 05/25/20 at 0829, Routine midazolam 2019-08- No IV Push, Uni vers (VERSED) 005-25 TITRATE - ity o f injection 13:29: 13:29 FOR [place] 00 :00 PROCEDURE Medical USE, 1 Branch dose, Starting [place]athy 05/25/20 at 0829, Until [place] 05/25/20 at 0829, Routine Sliding 2019-08- No Subcutaneo Uni vers Scale 005-26 us, Q4H, ity of Insulin - 04:59: 04:56 First dose [place] Aspart 00 :39 (after Medical (NOVOLOG) + last Branch Fsbg modificati Testing on) on Cathy 05/25/20 at 0000, Until Discontinu ed, Routine nitroglycer 2019-08- No 5ug/min 5 mcg/min Univers in 50 mg in 05-27 (1.5 ity of D5W 250 mL 03:30: 16:01 mL/hr), IV [place] infusion 00 :25 Infusion, Medica l RTU CONTINUOUS Branch , Starting 05/24/20 at 2230 glucagon 2019-08 Yes 1mg 1 mg, Univers (GLUCAGEN Intramuscu ity of DIAGNOSTIC 02:44: lar, PRN, [place] KIT) 22 Starting Medical injection 1 Wed Branch mg 05/24/20 at 2144, Until Discontinu ed, RADHA, Blood Glucose < or = 70 mg/dL and patient is unable to swallow or has mental changes. dextrose 50 2019-08 Yes 25mL 25 mL, Univ ers % in water 0-01 Slow IV ity of (D50W) 02:44: Push, PRN, [place] injection 22 Starting Medica l 25 mL Wed Branch 05/24/20 at 2144, Until Discontinu ed, RADHA, Blood Glucose < or = 70 mg/dL and patient is unable to swallow or has mental status changes. hydrOXYzine 2019- No 10mg 10 mg, Uni vers (ATARAX) 05-24 Oral, ity of tablet 10 21:30: 21:32 ONCE, 1 [place] mg 00 :00 dose, [facility] Medical 05/24/20 at Branch 1630, Routine nitroglycer 2019- No 1[in_us 1 Inch, Univers in (NITROL) 05-24 ] Transderma i ty of 2 % 14:45: 14:40 l (Apply [place] ointment 1 00 :00 To Skin), Medi zaina Inch ONCE, 1 Branch dose, [facility] 05/24/20 at 0945, Routine heparin No 1000U/h 1,000 Unive rs 25,000 05-24 10-03 Units/hr ity of Units/250 14:30: 05:03 (10 [place] mL 32 :31 mL/hr), IV Medical (Premixed Infusion, Branc h Bag) in TITRATE, 0.45 % NS Parameters in Admin. Instr., Starting 05/24/20 at 0930
CA UTION - If LMWH given in ER, AVOID bolus and start next dose/drip 12 hrs after ER dosage.&nb sp; M ust program rate using programmab le infusion pump.&nbsp ; Marguerite ck with the ordering provider first prior to any administra tion should the patient be on existing/a dditional anticoagul ant therapy. Rang e, Dosing and Testing: &nbs p;FOR [place], [facility], AND [facility] ONLY - aPTT < 35: & nbsp;Bolus 5000 units, increase rate 300 units/hr&n bsp; - aPTT 35-44:&nbs p; Michael lotus 3000 units, increase rate 200 units/hr&n bsp; - aPTT 45-54:&nbs p; In crease rate 100 units/hr&n bsp; - aPTT 55-85:&nbs p; NO CHANGE&nbs p; - aPTT 86-95:&nbs p; De crease rate 100 units/hr&n bsp; - aPTT 96-120:&nb sp; H old 30 minutes, decrease rate 150 units/hr&n bsp; - aPTT > 120:&n bsp; Hold 60 minutes, decrease rate 200 units/hr&n bsp; Check aPTT 6 hours after initiation , then Q6H after every change, aPTT Q12H once therapeuti c levels are reached.&n bsp; &nbs p; __ &n bsp;FOR [facility] ONLY - aPTT < 40: & nbsp;Bolus 5000 units, increase rate 300 units/hr&n bsp; - aPTT 40-49:&nbs p; Michael lotus 3000 units, increase rate 200 units/hr&n bsp; - aPTT 50-59:&nbs p; In crease rate 100 units/hr&n bsp; - aPTT 60-85:&nbs p; NO CHANGE&nbs p; - aPTT 86-95:&nbs p; De crease rate 100 units/hr&n bsp; - aPTT 96-120:&nb sp; H old 30 minutes, decrease rate 150 units/hr&n bsp; - aPTT > 120: Hold 60 minutes, decrease rate 200 units/hr&n bsp; Check aPTT 6 hours after initiation , then Q6H after every change, aPTT Q12H once therapeuti c levels are reached.&n bsp; DO NOT ADJUST INITIAL BOLUS OR INITIAL INFUSION RATE.
sulfur 2020-0 2020- No 5mL 5 mL, Univers hexafluorid 05-24 Intravenou i ty of e microsphr 14:30: 14:30 s, ONCE, 1 [place] (LUMASON) 00 :00 dose, Fri Medic al injection 5 05/24/20 at Br anch mL 0930, Routine
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 member approving Restricted medication : JULIUS CORREA aspirin 2020-0 Yes 81mg 81 mg, Univers chewable 05-24 Oral, ity of tablet 81 14:00: DAILY, [place] mg 00 First dose Medical (after Branch last modificati on) on Fri05/24/20 at 0900, Until Discontinu ed, Routine atorvastati 2020-0 Yes 80mg 80 mg, Univ ers n (LIPITOR) 05-24 Oral, ity of tablet 80 14:00: DAILY, [place] mg 00 First dose Medical on Fri Branch 05/24/20 at 0900, Until Discontinu ed, Routine fluticasone 2020-0 Yes 1{spray 1 [place], Univers propionate 05-24 } Nasal, ity of 50 14:00: DAILY, [place] mcg/actuati 00 First dose Me dical on nasal on Fri Branch spray 1 05/24/20 at [place] 0900, Until Discontinu ed, Routine heparin 2020-0 2020- No 4000U 4,000 Univers 1000 05-24 Units, IV ity of unit/mL 13:45: 14:51 Push, [place] injection 00 :00 ONCE, 1 Medical Soln 4,000 dose, Fri Bran ch Units 05/24/20 at 0845, Routine heparin 2020-0 2020- No 3000U FOR Univers (1,000 05-2403 REBOLUSING ity of unit/mL, 10 13:30: 05:03 , Starting [place] mL vial) 32 :31 Fri Medical for 05/24/20 at [place] Rebolusing 0830, Until 05/27/20 at 0003, Routine
Dosing based on aPTT testing parameters (refer to continuous heparin drip order).
gabapentin 2019- Yes 600mg 600 mg, Uni vers (NEURONTIN) 05-24 Oral, TID, it y of capsule 600 13:00: First dose [place] mg 00 on Fri Medical 05/24/20 at [place] 0800, Until Discontinu ed, Routine methocarbam Yes 750mg 750 mg, Un l[place] oL 05-24 Oral, QID, ity of (ROBAXIN) 13:00: First dose [place] tablet 750 00 on Fri Medical mg 05/24/20 at [place] 0800, Until Discontinu ed, Routine glipiZIDE 2020- No 5mg 5 mg, Univer s (GLUCOTROL) 05-24 Oral, ity of tablet 5 mg 12:30: 00:45 BIDAC, [place] 00 :28 First dose Medical on Fri [place] 05/24/20 at 0730, Until Discontinu ed, Routine maalox:diph 2019- No 15mL 15 mL, Uni vers enhydrAMINE 05-24 Oral, ity of :lidocaine 02:30: 02:14 ONCE, 1 [place] 2 % viscous 00 :00 dose, [facility] Med ical 1:1:1 05/23/20 at [place] (FIRST-MOUT 2130, HWASH BLM) Routine oral suspension 15 mL Sliding 2019- No Subcutaneo Uni vers Scale 05-24 us, AC+HS, ity of Insulin - 02:00: 00:45 First dose [place] Aspart 00 :28 on Fri Medical (NOVOLOG) + 05/23/20 at anch Fsbg 2100, Testing Until Discontinu ed, Routine ondansetron 2020- No 4mg 4 mg, Slow Univers (ZOFRAN 05-24 IV Push, ity of (PF)) 01:45: 16:25 Q4HPRN, [place] injection 4 11 :41 Starting Medi zaina mg [place] 05/23/20 at 2045, Until 05/27/20 at 1125, Routine, Nausea and Vomiting (N/V) metoprolol 2019- No 50mg 50 mg, [facility] ers tartrate 05-24 Oral, BID, ity of (LOPRESSOR) 01:30: 12:11 First dose [place] tablet 50 00 :02 on [facility] Medical mg 05/23/20 at Branch 2030, Until Discontinu ed, Routine morpHINE 2019- No 2mg 2 mg, Slow Un l[place] injection 2 05-24 IV Push, ity of mg 01:21: 02:44 Q4HPRN, [place] 18 :34 Starting Medical [facility] Branch 05/23/20 at 202, Until 05/24/20 at 2144, Routine, Pain (scale 7-10), Hold for SBP<110, DBP<60, RR<12, and/or drowsiness /sedation HYDROcodone 2020- No 1{tbl} 1 tablet, Univers -acetaminop 05-24 Oral, ity of hen (NORCO) 01:20: 20:17 Q6HPRN, [place] 10-325 mg 16 :54 Starting Medica l tablet 1 [facility] tablet 05/23/20 at 2020, Until [place] 05/25/20 at 1517, Routine, Pain (scale 4-6) nitroglycer 0 Yes .4mg 0.4 mg, Uni vers in 05-23 Sublingual ity of (NITROSTAT) 22:00: , Q5MIN [place] sublingual 35 PRN, Medical tablet 0.4 Starting Branc h mg [facility] 05/23/20 at 1700, Until Discontinu ed, Routine, Chest pain acetaminoph Yes 650mg 650 mg, Un l[place] en 05-23 Oral, ity of (TYLENOL) 22:00: Q6HPRN, [place] tablet 650 20 Starting Medic al mg [facility] 05/23/20 at 1700, Until Discontinu ed, Routine, Pain (scale 1-3) LORazepam 2019- No .5mg 0.5 mg, [facility] ers (ATIVAN) 05-23 Oral, ity of tablet 0.5 21:55: 22:15 ONCE, 1 [place] mg 00 :00 dose, [facility] Medical 05/23/20 at Branch 1700, RADHA nitroglycer 2020-0 2020- No .4mg 0.4 mg, Un [place] in 05-23 Sublingual ity of (NITROSTAT) 21:33: 21:52 , ONCE, 1 [place] sublingual 00 :00 dose, Tue Medi zaina tablet 0.4 05/23/20 at [facility] mg 1645, RADHA iohexol 2020-0 2020- No 120mL 120 mL, Unive rs (OMNIPAQUE 05-23 Intravenou it y of 350 21:15: 20:55 s, ONCE, 1 [place] BULK-150 00 :00 dose, Tue Medica l mL) 05/23/20 at Branch injection 1615, 120 mL Routine NaCl 0.9% 2019-0 2020- No 500mL at 999 Univ ers (NS) bolus 05-23 mL/hr, 500 it y of infusion 20:41: 22:08 mL, IV [place] 500 mL 00 :00 Infusion, Medical ONCE, 1 Branch dose, 05/23/20 at 1545, STAT ondansetron 0 2020- No 4mg 4 mg, Slow Univers (ZOFRAN 05-23 IV Push, ity of (PF)) 20:41: 21:29 ONCE, 1 [place] injection 4 00 :00 dose, e Med ical mg 05/23/20 at Branch 1545, RADHA morpHINE 2019-0 2020- No 4mg 4 mg, Slow Un l[place] injection 4 05-23 IV Push, ity of mg 20:41: 21:29 ONCE, 1 [place] 00 :00 dose, [facility] Medical 05/23/20 at Branch 1545, STAT aspirin 2019-0 2020- No 325mg 325 mg, Unive rs tablet 325 05-23 Oral, ity of mg 19:45: 19:41 ONCE, 1 [place] 00 :00 dose, [facility] Medical 05/23/20 at Branch 1445, STAT insulin 2020-0 2020- No 10U 10 Units, Univ ers regular -10-30 Slow IV ity of human 20:45: 19:57 Push, [place] (HUMULIN R) 00 :00 ONCE, 1 Medic al injection dose, [facility] Branc h 10 Units 10/31/19 at 1545, Routine metoprolol 2019-0 2020- No 50mg 50 mg, Univ ers tartrate 10-30 Oral, ity of (LOPRESSOR) 20:00: 18:57 ONCE, 1 [place] tablet 50 00 :00 dose, [facility] Medic al mg 10/31/19 at Branch 1500, Routine aspirin 2020-0 2020- No 243mg 243 mg, Unive rs chewable 10-30 Oral, ity of tablet 243 20:00: 18:57 ONCE, 1 [place] mg 00 :00 dose, [facility] Medical 10/31/19 at Branch 1500, Routine iohexol 2019- No 120mL 120 mL, Unive rs (OMNIPAQUE 10-30 Intravenou it y of 350 19:51: 19:51 s, ONCE, 1 [place] BULK-150 00 :00 dose, [facility] Medica l mL) 10/31/19 at Branch injection 1500, 120 mL Routine NaCl 0.9% 0 2019- No 1000mL at 999 Uni vers (NS) bolus 10-30 mL/hr, ity of infusion 19:00: 20:00 1,000 mL, [place] 1,000 mL 00 :00 IV Medical Infusion, Branch ONCE, 1 dose, 10/31/19 at 1400, RADHA nitroglycer 2020- Yes .4mg 0.4 mg, Uni vers in 10-30 Sublingual ity of (NITROSTAT) 18:48: , Q5MIN [place] sublingual 44 PRN, 3 Medical tablet 0.4 doses, Branch mg Starting 10/31/19 at 1348, Until Discontinu ed, RADHA, Chest pain predniSONE 2019-0 Yes [id number] 3 tablets Univers 10 mg 9-24 daily po ity of tablet 00:00: for one [place] week, then Medical 2 tablets Branch daily po until return predniSONE 2019-0 Yes [id number] 3 tablets Univers 10 mg 9-24 daily po ity of tablet 00:00: for one [place] week, then Medical 2 tablets Branch daily po until return predniSONE 2019-0 Yes [id number] 3 tablets Univers 10 mg 9-24 daily po ity of tablet 00:00: for one [place] week, then Medical 2 tablets Branch daily po until return predniSONE 2019-0 Yes [id number] 3 tablets Univers 10 mg 9-24 daily po ity of tablet 00:00: for one [place] week, then Medical 2 tablets Branch daily po until return predniSONE 2018- Yes [id number] 3 tablets Univers 10 mg 9-24 daily po ity of tablet 00:00: for one [place] 00 week, then Medical 2 tablets Branch daily po until return predniSONE 2020- No [id number] 3 tablets Univers 10 mg 9-24 10-09 daily po ity of tablet 00:00: 00:00 for one [place] 00 :00 week, then Medical 2 tablets Branch daily po until return omeprazole Yes [id number] 40mg Take 1 Univers 40 mg 9-22 9103 capsule by ity of capsule 00:00: mouth [place] 00 daily. Medical Branch omeprazole Yes [id number] 40mg Take 1 Univers 40 mg 9-22 9103 capsule by ity of capsule 00:00: mouth [place] 00 daily. Medical Branch omeprazole Yes [id number] 40mg Take 1 Univers 40 mg 9-22 9103 capsule by ity of capsule 00:00: mouth [place] 00 daily. Medical Branch omeprazole Yes [id number] 40mg Take 1 Univers 40 mg 9-22 9103 capsule by ity of capsule 00:00: mouth [place] 00 daily. Medical Branch omeprazole Yes [id number] 40mg Take 1 Univers 40 mg 9-22 9103 capsule by ity of capsule 00:00: mouth [place] 00 daily. Medical Branch omeprazole 0 2020- No [id number] 40mg Take 1 Univers 40 mg 9-22 10-09 9103 capsule by ity of capsule 00:00: 00:00 mouth [place] 00 :00 daily. Medical Branch methocarbam 2018- Yes 500mg Take 500 U nivers ol 9-21 mg by ity of (ROBAXIN) 19:21: mouth 2 [place] 500 mg 54 (two) Medical tablet times Branch daily. metFORMIN 2019-0 Yes 1000mg Take 1,000 Univers 1,000 mg 9-21 mg by ity of tablet 19:21: mouth 2 [place] 54 (two) Medical times Branch daily with meals. metoprolol 2019-0 Yes 50mg Take 50 mg U nivers tartrate 50 9-21 by mouth 2 it y of mg tablet 19:21: (two) [place] 54 times Medical daily. Branch methocarbam Yes 500mg Take 500 U nivers ol 9-21 mg by ity of (ROBAXIN) 19:21: mouth 2 [place] 500 mg 54 (two) Medical tablet times Branch daily. metFORMIN 2019-0 Yes 1000mg Take 1,000 Univers 1,000 mg 9-21 mg by ity of tablet 19:21: mouth 2 [place] 54 (two) Medical times Branch daily with meals. metoprolol 2019-0 Yes 50mg Take 50 mg U nivers tartrate 50 9-21 by mouth 2 it y of mg tablet 19:21: (two) [place] 54 times Medical daily. Branch methocarbam 2019-0 Yes 500mg Take 500 U nivers ol 9-21 mg by ity of (ROBAXIN) 19:21: mouth 2 [place] 500 mg 54 (two) Medical tablet times Branch daily. metFORMIN 2019-0 Yes 1000mg Take 1,000 Univers 1,000 mg 9-21 mg by ity of tablet 19:21: mouth 2 [place] 54 (two) Medical times Branch daily with meals. metoprolol 2019- Yes 50mg Take 50 mg U nivers tartrate 50 9-21 by mouth 2 it y of mg tablet 19:21: (two) [place] 54 times Medical daily. Branch predniSONE 2018- Yes [id number] 60mg Take 3 Univers 20 mg 9-21 9103 tablets by ity of tablet 00:00: mouth [place] 00 daily. Medical Branch insulin 2018- Yes [id number] 10U inject 10 Univers aspart 9-21 Units ity of U-100 00:00: under the [place] (NOVOLOG 00 skin 3 Medical FLEXPEN (three) Branch U-100 times INSULIN) daily 100 unit/mL before (3 mL) meals. injection Insulin 2018- Yes [id number] 27U inject 27 Univers Glargine 9-21 Units ity of (LANTUS 00:00: under the [place] SOLOSTAR 00 skin Medical U-100 daily. Branch INSULIN) 100 unit/mL (3 mL) injection amoxicillin 2018- Yes [id number] 500mg Take 1 Univers -pot 9- 9103 tablet by ity of clavulanate 00:00: mouth 3 [place] 500 mg 00 (three) Medical 500-125 mg times Branch tablet daily. artificial 2018- Yes [id number] 1[drp] Place 1 Univers tears,hypro - 9103 Drop in ity o f mellose, 00:00: both eyes [place] 0.5 % 00 4 (four) Medical ophthalmic times Branch drops daily. dorzolamide Yes [id number] 1[drp] Place 1 Univers -timolol 9-21 9103 Drop in ity of 22.3-6.8 00:00: right eye [place] mg/mL 00 2 (two) Medical ophthalmic times Branch drops daily. doxycycline Yes [id number] 100mg Take 1 Univers 100 mg 9-21 9103 capsule by ity of capsule 00:00: mouth [place] 00 every 12 Medical (twelve) Branch hours. Insulin Yes [id number] 27U inject 27 Univers Glargine 9-21 Units ity of (LANTUS 00:00: under the [place] SOLOSTWV 00 skin Medical U-100 daily. Branch INSULIN) 100 unit/mL (3 mL) injection insulin Yes [id number] 10U inject 10 Univers aspart 9-21 Units ity of U-100 00:00: under the [place] (NOVOLOG 00 skin 3 Medical FLEXPEN (three) Branch U-100 times INSULIN) daily 100 unit/mL before (3 mL) meals. injection predniSONE Yes [id number] 60mg Take 3 U nivers 20 mg 9-21 tablets by ity of tablet 00:00: mouth [place] 00 daily. Medical Branch predniSONE Yes [id number] 60mg Take 3 Univers 20 mg 9-21 9103 tablets by ity of tablet 00:00: mouth [place] 00 daily. Medical Branch insulin Yes [id number] 10U inject 10 Univers aspart 9-21 Units ity of U-100 00:00: under the [place] (NOVOLOG 00 skin 3 Medical FLEXPEN (three) Branch U-100 times INSULIN) daily 100 unit/mL before (3 mL) meals. injection Insulin Yes [id number] 27U inject 27 Univers Glargine 9-21 Units ity of (LANTUS 00:00: under the [place] SOLOSTAR 00 skin Medical U-100 daily. Branch INSULIN) 100 unit/mL (3 mL) injection amoxicillin Yes [id number] 500mg Take 1 Univers -pot 9-21 9103 tablet by ity of clavulanate 00:00: mouth 3 [place] 500 mg 00 (three) Medical 500-125 mg times Branch tablet daily. artificial Yes [id number] 1[drp] Place 1 Univers tears,hypro 9-21 9103 Drop in ity o f mellose, 00:00: both eyes [place] 0.5 % 00 4 (four) Medical ophthalmic times Branch drops daily. dorzolamide Yes [id number] 1[drp] Place 1 Univers -timolol 9-21 9103 Drop in ity of 22.3-6.8 00:00: right eye [place] mg/mL 00 2 (two) Medical ophthalmic times Branch drops daily. doxycycline Yes [id number] 100mg Take 1 Univers 100 mg 9-21 9103 capsule by ity of capsule 00:00: mouth [place] 00 every 12 Medical (twelve) Branch hours. Insulin Yes [id number] 27U inject 27 Univers Glargine 9-21 Units ity of (LANTUS 00:00: under the [place] SOLOSTWV 00 skin Medical U-100 daily. Branch INSULIN) 100 unit/mL (3 mL) injection insulin Yes [id number] 10U inject 10 Univers aspart 9-21 Units ity of U-100 00:00: under the [place] (NOVOLOG 00 skin 3 Medical FLEXPEN (three) Branch U-100 times INSULIN) daily 100 unit/mL before (3 mL) meals. injection predniSONE Yes [id number] 60mg Take 3 Univers 20 mg 9-21 9106 tablets by ity of tablet 00:00: mouth [place] 00 daily. Medical Branch insulin Yes [id number] 10U inject 10 Univers aspart 9-21 Units ity of U-100 00:00: under the [place] (NOVOLOG 00 skin 3 Medical FLEXPEN (three) Branch U-100 times INSULIN) daily 100 unit/mL before (3 mL) meals. injection Insulin Yes [id number] 27U inject 27 Univers Glargine 9-21 Units ity of (LANTUS 00:00: under the [place] SOLOSTAR 00 skin Medical U-100 daily. Branch INSULIN) 100 unit/mL (3 mL) injection artificial Yes [id number] 1[drp] Place 1 Univers tears,hypro 9-21 9103 Drop in ity o f mellose, 00:00: both eyes [place] 0.5 % 00 4 (four) Medical ophthalmic times Branch drops daily. dorzolamide Yes [id number] 1[drp] Place 1 Univers -timolol 9-21 9103 Drop in ity of 22.3-6.8 00:00: right eye [place] mg/mL 00 2 (two) Medical ophthalmic times Branch drops daily. Insulin Yes [id number] 27U inject 27 Univers Glargine 9-21 Units ity of (LANTUS 00:00: under the [place] SOLOSTAR 00 skin Medical U-100 daily. Branch INSULIN) 100 unit/mL (3 mL) injection insulin Yes [id number] 10U inject 10 Univers aspart 9-21 Units ity of U-100 00:00: under the [place] (NOVOLOG 00 skin 3 Medical FLEXPEN (three) Branch U-100 times INSULIN) daily 100 unit/mL before (3 mL) meals. injection Insulin Yes [id number] 27U inject 27 Univers Glargine 9-21 Units ity of (LANTUS 00:00: [facility] the [place] [facility] U-[facility] daily. Branch INSULIN) 100 unit/mL (3 mL) injection artificial Yes [id number] 1[drp] Place 1 Univers tears,hypro 9-21 9103 Drop in ity o f mellose, 00:00: both eyes [place] 0.5 % 00 4 (four) Medical ophthalmic times Branch drops daily. dorzolamide Yes [id number] 1[drp] Place 1 Univers -timolol 9-21 9103 Drop in ity of 22.3-6.8 00:00: right eye [place] mg/mL 00 2 (two) Medical ophthalmic times Branch drops daily. Insulin Yes [id number] 27U inject 27 Univers Glargine 9-21 Units ity of (LANTUS 00:00: under the [place] SOLOSTAR 00 skin Medical U-100 daily. Branch INSULIN) 100 unit/mL (3 mL) injection insulin Yes [id number] 10U inject 10 Univers aspart 9-21 Units ity of U-100 00:00: under the [place] (NOVOLOG 00 skin 3 Medical FLEXPEN (three) Branch U-100 times INSULIN) daily 100 unit/mL before (3 mL) meals. injection insulin Yes [id number] 10U inject 10 Univers aspart 9-21 Units ity of U-100 00:00: under the [place] (NOVOLOG 00 skin 3 Medical FLEXPEN (three) Branch U-100 times INSULIN) daily 100 unit/mL before (3 mL) meals. injection insulin Yes [id number] 10U inject 10 Univers aspart 9-21 Units ity of U-100 00:00: under the [place] (NOVOLOG 00 skin 3 Medical FLEXPEN (three) Branch U-100 times INSULIN) daily 100 unit/mL before (3 mL) meals. injection insulin Yes [id number] 10U inject 10 Univers aspart 9-21 Units ity of U-100 00:00: under the [place] (NOVOLOG 00 skin 3 Medical FLEXPEN (three) Branch U-100 times INSULIN) daily 100 unit/mL before (3 mL) meals. injection insulin Yes [id number] 10U inject 10 Univers aspart 9-21 Units ity of U-100 00:00: under the [place] (NOVOLOG 00 skin 3 Medical FLEXPEN (three) Branch U-100 times INSULIN) daily 100 unit/mL before (3 mL) meals. injection insulin Yes [id number] 10U inject 10 [facility] aspart 9-21 Units ity of U-100 00:00: under the [place] (NOVOLOG 00 skin 3 Medical FLEXPEN (three) Branch U-100 times INSULIN) daily 100 unit/mL before (3 mL) meals. injection predniSONE Yes [id number] 60mg Take 3 Univers 20 mg 9-21 9103 tablets by ity of tablet 00:00: mouth [place] 00 daily. Medical Branch insulin Yes [id number] 10U inject 10 Univers aspart 9-21 Units ity of U-100 00:00: under the [place] (NOVOLOG 00 skin 3 Medical FLEXPEN (three) Branch U-100 times INSULIN) daily 100 unit/mL before (3 mL) meals. injection Insulin Yes [id number] 27U inject 27 [facility] Glargine 9-21 Units ity of (LANTUS 00:00: under the [place] SOLOSTAR 00 skin Medical U-100 daily. Branch INSULIN) 100 unit/mL (3 mL) injection amoxicillin Yes [id number] 500mg Take 1 Univers -pot 9-21 9103 tablet by ity of clavulanate 00:00: mouth 3 [place] as 500 mg 00 (three) Medical 500-125 mg times Branch tablet daily. artificial Yes [id number] 1[drp] Place 1 Univers tears,hypro - 9103 Drop in ity o f mellose, 00:00: both eyes [place] 0.5 % 00 4 (four) Medical ophthalmic times Branch drops daily. dorzolamide Yes [id number] 1[drp] Place 1 Univers -timolol 05-15 9103 Drop in ity of 22.3-6.8 00:00: right eye [place] mg/mL 00 2 (two) Medical ophthalmic times Branch drops daily. doxycycline Yes [id number] 100mg Take 1 Univers 100 mg - 9103 capsule by ity of capsule 00:00: mouth [place] 00 every 12 Medical (twelve) Branch hours. Insulin Yes [id number] 27U inject 27 [facility] Glargine 9-21 Units ity of (LANTUS 00:00: under the [place] SOLOSTAR 00 skin Medical U-100 daily. Branch INSULIN) 100 unit/mL (3 mL) injection insulin Yes [id number] 10U inject 10 Univers aspart 9-21 Units ity of U-100 00:00: under the [place] (NOVOLOG 00 skin 3 Medical FLEXPEN (three) Branch U-100 times INSULIN) daily 100 unit/mL before (3 mL) meals. injection predniSONE Yes [id number] 60mg Take 3 U nivers 20 mg 9-21 tablets by ity of tablet 00:00: mouth [place] 00 daily. Medical Branch insulin 2020- No [id number] 10U inject 10 Univers aspart 9-21 01-09 Units ity of U-100 00:00: 00:00 under the [place] (NOVOLOG 00 :00 skin 3 Medical FLEXPEN (three) Branch U-100 times INSULIN) daily 100 unit/mL before (3 mL) meals. injection Insulin 2020- No [id number] 27U inject 27 [facility] Glargine 9-21 10-10 Units ity of (LANTUS 00:00: 00:[place] SOL[place] 00 :00 skin Medical U-100 daily. Branch INSULIN) 100 unit/mL (3 mL) injection Insulin 2020- No [id number] 27U inject 27 [facility] Glargine 05-15 10-10 Units ity of (LANTUS 00:00: 00:00 [place] SOLOST[place] 00 :00 skin Medical U-100 daily. Branch INSULIN) 100 unit/mL (3 mL) injection artificial 2020- No [id number] 1[drp] Place 1 Univers tears,hypro 05-15 9103 Drop in ity of mellose, 00:00: 00:00 both eyes [place] as 0.5 % 00 :00 4 (four) Medical ophthalmic times Branch drops daily. dorzolamide 2020- No [id number] 1[drp] Place 1 Univers -timolol 05-15 9103 Drop in ity of 22.3-6.8 00:00: 00:00 right eye [place] as mg/mL 00 :00 2 (two) Medical ophthalmic times Branch drops daily. predniSONE 2020- No [id number] 60mg Take 3 [facility] 20 mg 05-15 9103 tablets by ity of tablet 00:00: 00:00 mouth [place] 00 :00 daily. Medical Branch amoxicillin 2020- No [id number] 500mg Take 1 Univers -pot 05-15 9103 tablet by ity of clavulanate 00:00: 00:00 mouth 3 [place] 500 mg 00 :00 (three) Medical 500-125 mg times Branch tablet daily. doxycycline 2020- No [id number] 100mg Take 1 [facility] 100 mg 05-15 9103 capsule by ity of capsule 00:00: 00:00 mouth [place] 00 :00 every 12 Medical (twelve) Branch hours. insulin 2020- No [id number] 10U inject 10 [facility] aspart 05-15- Units ity of U-100 00:00: 00:00 under the [place] (NOVOLOG 00 :00 skin 3 Medical FLEXPEN (three) Branch U-100 times INSULIN) daily 100 unit/mL before (3 mL) meals. injection predniSONE 2020- No [id number] 60mg Take 3 [facility] 20 mg 05-15 9106 tablets by ity of tablet 00:00: 00:00 mouth [place] 00 :00 daily. Medical Branch FENTanyl PF 2019- No 50ug 50 mcg, [facility] (SUBLIMAZE 05-10 Slow IV ity o f (PF)) 03:45: 02:41 Push, [place] injection 00 :00 ONCE, 1 Medical 50 mcg dose, [facility] 05/09/19 at 2245, STAT LORazepam 2019- No 1mg 1 mg, Slow U nivers (ATIVAN) 05-10 IV Push, ity of injection 1 03:45: 02:41 ONCE, 1 [place] mg 00 :00 dose, [facility] 05/09/19 at Branch 2245, STAT FENTanyl PF 2018- No 50ug 50 mcg, [facility] (SUBLIMAZE 05-10 Slow IV ity o f (PF)) 03:15: 02:14 Push, [place] injection 00 :00 ONCE, 1 Medical 50 mcg dose, [facility] 05/09/19 at 2215, STAT methylpredn 2018- No 125mg 125 mg, IV Univers isolone sod 05-10 Piggyback, i ty of succ 03:00: 02:16 ONCE, 1 [place] (SOLU-MEDRO 00 :00 dose, [place] [facility] L) 05/09/19 at Branch injection 2200, STAT 125 mg ketorolac 2018- No 30mg 30 mg, Unive rs (TORADOL) 05-10 Slow IV ity of injection 03:00: 02:16 Push, [place] 30 mg 00 :00 ONCE, 1 Medical dose, [facility] 05/09/19 at 2200, RADAH
Fa culty member approving Restricted medication : NICK TRAMMELL buprenorphi 2018- Yes [address]mg [address] 300 Univers ne HCl 9-16 mg in ity of (BELBUCA) 02:49: cheeks 2 [place] 300 mcg 47 (two) Medical Film times Branch daily. methocarbam 2018- Yes 500mg Take 500 U nivers ol 9-16 mg by ity of (ROBAXIN) 02:49: mouth 2 [place] 500 mg 47 (two) Medical tablet times [place] daily. morpHINE 2019- No 4mg 4 mg, Slow [facility] injection 4 9-16 09-16 IV Push, ity of mg 01:45: 00:39 ONCE, 1 [place] 00 :00 dose, [facility] 05/09/19 at Branch 204, STAT iohexol 2018- No 80mL 80 mL, Univers (OMNIPAQUE 05-10 Intravenou it y of 350 BULK-75 00:30: 00:29 s, ONCE, 1 [place] mL) 00 :00 dose, [facility] injection 05/09/19 at Bran ch 80 mL 1930, Routine ondansetron 2018- No 4mg 4 mg, Slow Univers (ZOFRAN 05-10 IV Push, ity of (PF)) 00:30: 23:55 ONCE, 1 [place] injection 4 00 :00 dose, [place] [facility] mg 05/09/19 at Branch 1929, RADHA morpHINE 2018- No 4mg 4 mg, Slow [facility] injection 4 05-10 IV Push, ity of mg 00:30: 23:55 ONCE, 1 [place] 00 :00 dose, [place] [facility] 05/09/19 at Branch 1929, STAT gabapentin 2017-08 Yes 300mg Take 1 Univ ers 300 mg 0-20 capsule by ity of capsule 00:00: mouth 2 [place] 00 (two) Medical times Branch daily. ibuprofen 2017-08 Yes 600mg Take 1 [facility] 600 mg 0-20 tablet by ity of tablet 00:00: mouth [place] 00 every 8 Medical (eight) Branch hours as needed for Pain (scale 4-6). gabapentin 2017-08 Yes 300mg Take 1 Univ ers 300 mg 0-20 capsule by ity of capsule 00:00: mouth 2 [place] 00 (two) Medical times Branch daily. ibuprofen 2017-08 Yes 600mg Take 1 Unive [facility] 600 mg 0-20 tablet by ity of tablet 00:00: mouth [place] 00 every 8 Medical (eight) Branch hours as needed for Pain (scale 4-6). gabapentin 2017-08 Yes 300mg Take 1 Univ ers 300 mg 0-20 capsule by ity of capsule 00:00: mouth 2 [place] 00 (two) Medical times Branch daily. ibuprofen 2017-08 Yes 600mg Take 1 Unive [facility] 600 mg 0-20 tablet by ity of tablet 00:00: mouth [place] 00 every 8 Medical (eight) Branch hours as needed for Pain (scale 4-6). gabapentin 2017- Yes 300mg Take 1 Univ ers 300 mg 0-20 capsule by ity of capsule 00:00: mouth 2 (two) Medical times Branch daily. ibuprofen 2018-1 Yes 600mg Take 1 Unive rs 600 mg 0-20 tablet by ity of tablet 00:00: mouth [place] 00 every 8 Medical (eight) Branch hours as needed for Pain (scale 4-6). gabapentin 2018-1 Yes 300mg Take 1 Univ ers 300 mg 0-20 capsule by ity of capsule 00:00: mouth 2 00 (two) Medical times Branch daily. ibuprofen 2018-1 Yes 600mg Take 1 Unive rs 600 mg 0-20 tablet by ity of tablet 00:00: mouth [place] 00 every 8 Medical (eight) Branch hours as needed for Pain (scale 4-6). gabapentin 2018-1 Yes 300mg Take 1 Univ ers 300 mg 0-20 capsule by ity of capsule 00:00: mouth 2 (two) Medical times Branch daily. ibuprofen 2018-1 Yes 600mg Take 1 Unive rs 600 mg 0-20 tablet by ity of tablet 00:00: mouth [place] 00 every 8 Medical (eight) Branch hours as needed for Pain (scale 4-6). gabapentin 2018-1 Yes 300mg Take 1 Univ ers 300 mg 0-20 capsule by ity of capsule 00:00: mouth 2 (two) Medical times Branch daily. ibuprofen 2018-1 Yes 600mg Take 1 Unive rs 600 mg 0-20 tablet by ity of tablet 00:00: mouth [place] 00 every 8 Medical (eight) Branch hours as needed for Pain (scale 4-6). gabapentin 2018-1 Yes 300mg Take 1 Univ ers 300 mg 0-20 capsule by ity of capsule 00:00: mouth 2 (two) Medical times Branch daily. ibuprofen 2018-1 Yes 600mg Take 1 Unive rs 600 mg 0-20 tablet by ity of tablet 00:00: mouth [place] 00 every 8 Medical (eight) Branch hours as needed for Pain (scale 4-6). gabapentin 2018-1 Yes 300mg Take 1 Univ ers 300 mg 0-20 capsule by ity of capsule 00:00: mouth 2 [place] 00 (two) Medical times Branch daily. ibuprofen 2018-1 Yes 600mg Take 1 Unive rs 600 mg 0-20 tablet by ity of tablet 00:00: mouth [place] 00 every 8 Medical (eight) Branch hours as needed for Pain (scale 4-6). gabapentin 2017- Yes 300mg Take 1 Univ ers 300 mg 0-20 capsule by ity of capsule 00:00: mouth 2 [place] (two) Medical times Branch daily. ibuprofen 2017-08 Yes 600mg Take 1 Unive rs 600 mg 0-20 tablet by ity of tablet 00:00: mouth [place] 00 every 8 Medical (eight) Branch hours as needed for Pain (scale 4-6). gabapentin 2017-08 Yes 300mg Take 1 Univ ers 300 mg 0-20 capsule by ity of capsule 00:00: mouth 2 [place] 00 (two) Medical times Branch daily. ibuprofen 2017-08 Yes 600mg Take 1 Unive rs 600 mg 0-20 tablet by ity of tablet 00:00: mouth [place] 00 every 8 Medical (eight) Branch hours as needed for Pain (scale 4-6). gabapentin 2017-08 Yes 300mg Take 1 Univ ers 300 mg 0-20 capsule by ity of capsule 00:00: mouth 2 (two) Medical times Branch daily. ibuprofen 2017-08 Yes 600mg Take 1 Unive rs 600 mg 0-20 tablet by ity of tablet 00:00: mouth [place] 00 every 8 Medical (eight) Branch hours as needed for Pain (scale 4-6). gabapentin 2017-08- No 300mg Take 1 Uni vers 300 mg 0-20 01-10 capsule by ity of capsule 00:00: 00:00 mouth 2 [place] 00 :00 (two) Medical times Branch daily. ibuprofen 2017-08- No 600mg Take 1 Univ ers 600 mg 0-20 01-09 tablet by ity of tablet 00:00: 00:00 mouth [place] 00 :00 every 8 Medical (eight) Branch hours as needed for Pain (scale 4-6). HYDROcodone 2017- Yes 1{tbl} Take 1 [facility] -acetaminop 0-19 tablet by ity of hen (NORCO) 00:00: mouth [place] 10-325 mg 00 every 6 Medical tablet (six) Branch hours as needed for Pain (scale 4-6) or Pain (scale 7-10). aspirin 325 2017- Yes 325mg Take 1 Uni vers mg tablet 0-19 tablet by ity o f 00:00: mouth 2 [place] 00 (two) Medical times Branch daily. HYDROcodone 2017-08 Yes 1{tbl} Take 1 [facility] -acetaminop 0-19 tablet by ity of hen (NORCO) 00:00: mouth [place] 10-325 mg 00 every 6 Medical tablet (six) Branch hours as needed for Pain (scale 4-6) or Pain (scale 7-10). aspirin 325 2017-08 Yes 325mg Take 1 Uni vers mg tablet 0-19 tablet by ity o f 00:00: mouth 2 [place] 00 (two) Medical times Branch daily. HYDROcodone 2017-08 Yes 1{tbl} Take 1 [facility] -acetaminop 0-19 tablet by ity of hen (NORCO) 00:00: mouth [place] 10-325 mg 00 every 6 Medical tablet (six) Branch hours as needed for Pain (scale 4-6) or Pain (scale 7-10). HYDROcodone 2017-08 Yes 1{tbl} Take 1 [facility] -acetaminop 0-19 tablet by ity of hen (NORCO) 00:00: mouth [place] 10-325 mg 00 every 6 Medical tablet (six) Branch hours as needed for Pain (scale 4-6) or Pain (scale 7-10). ciprofloxac 2017-08 Yes 750mg Take 1 Uni vers in HCl 750 0-19 tablet by ity of mg tablet 00:00: mouth [place] 00 every 12 Medical (twelve) Branch hours. sulfamethox 2017-08 Yes 1{tbl} Take 1 [facility] azole-trime 0-19 tablet by ity of thoprim 00:00: mouth 2 [place] (BACTRIM) 00 (two) Medical 400-80 mg times Branch per tablet daily. aspirin 325 2017-08 Yes 325mg Take 1 Uni vers mg tablet 0-19 tablet by ity o f 00:00: mouth 2 [place] 00 (two) Medical times Branch daily. HYDROcodone 2017-08 Yes 1{tbl} Take 1 [facility] -acetaminop 0-19 tablet by ity of hen (NORCO) 00:00: mouth [place] 10-325 mg 00 every 6 Medical tablet (six) Branch hours as needed for Pain (scale 4-6) or Pain (scale 7-10). HYDROcodone 2017-08 Yes 1{tbl} Take 1 [facility] -acetaminop 0-19 tablet by ity of hen (NORCO) 00:00: mouth [place] 10-325 mg 00 every 6 Medical tablet (six) Branch hours as needed for Pain (scale 4-6) or Pain (scale 7-10). HYDROcodone 2017-08 Yes 1{tbl} Take 1 [facility] -acetaminop 0-19 tablet by ity of hen (Taggable) 00:00: mouth [place] 10-325 mg 00 every 6 Medical tablet (six) Branch hours as needed for Pain (scale 4-6) or Pain (scale 7-10). HYDROcodone 2017-08 Yes 1{tbl} Take 1 [facility] -acetaminop 0-19 tablet by ity of hen (Taggable) 00:00: mouth [place] 10-325 mg 00 every 6 Medical tablet (six) Branch hours as needed for Pain (scale 4-6) or Pain (scale 7-10). HYDROcodone 2017-08 Yes 1{tbl} Take 1 [facility] -acetaminop 0-19 tablet by ity of hen (Taggable) 00:00: mouth [place] 10-325 mg 00 every 6 Medical tablet (six) Branch hours as needed for Pain (scale 4-6) or Pain (scale 7-10). HYDROcodone 2017-08 Yes 1{tbl} Take 1 [facility] -acetaminop 0-19 tablet by ity of hen (Taggable) 00:00: mouth [place] 10-325 mg 00 every 6 Medical tablet (six) Branch hours as needed for Pain (scale 4-6) or Pain (scale 7-10). HYDROcodone 2017-08 Yes 1{tbl} Take 1 [facility] -acetaminop 0-19 tablet by ity of hen (Taggable) 00:00: mouth [place] 10-325 mg 00 every 6 Medical tablet (six) Branch hours as needed for Pain (scale 4-6) or Pain (scale 7-10). HYDROcodone 2017-08 Yes 1{tbl} Take 1 [facility] -acetaminop 0-19 tablet by ity of hen (Taggable) 00:00: mouth [place] 10-325 mg 00 every 6 Medical tablet (six) Branch hours as needed for Pain (scale 4-6) or Pain (scale 7-10). aspirin 325 2017-08 Yes 325mg Take 1 Uni vers mg tablet 0-19 tablet by ity o f 00:00: mouth 2 [place] 00 (two) Medical times Branch daily. HYDROcodone 2017-08- No 1{tbl} Take 1 U nivers -acetaminop 0-12 09- tablet by it y of veronika (NORCO) 00:00: 00:00 mouth [place] 10-325 mg 00 :00 every 6 Medical tablet (six) Branch hours as needed for Pain (scale 4-6) or Pain (scale 7-10). aspirin 325 2017-08- No 325mg Take 1 [facility] mg tablet 005-28 tablet by ity of 00:00: 00:00 mouth 2 [place] 00 :00 (two) Medical times Branch daily. Immunizations Ordered Filled Immunization Date Status Comments [facility] e Immunization Name Name Pneumococcal 2020-05-28 Completed University o f Polysaccharide, 00:00:00 [place] Med ical PPSV23 (PNEUMOVAX) Branch Influenza Virus 2020-05-28 Completed Universit y of Vaccine Quad .5 mL 00:00:00 [place] Medical IM 6+ MO Branch Pneumococcal 2020-05-28 Completed University o f Polysaccharide, 00:00:00 [place] Med ical PPSV23 (PNEUMOVAX) Branch Influenza Virus 2020-05-28 Completed Universit y of Vaccine Quad .5 mL 00:00:00 [place] Medical IM 6+ MO Branch Pneumococcal 2020-05-28 Completed University o f Polysaccharide, 00:00:00 [place] Med ical PPSV23 (PNEUMOVAX) Branch Influenza Virus 2020-05-28 Completed Universit y of Vaccine Quad .5 mL 00:00:00 [place] [facility] IM 6+ MO Branch Pneumococcal 2020-05-28 Completed University o f Polysaccharide, 00:00:00 [place] Med ical PPSV23 (PNEUMOVAX) Branch Influenza Virus 2020-05-28 Completed Universit y of Vaccine Quad .5 mL 00:00:00 [place] Medical IM 6+ MO Branch Pneumococcal 2020-05-28 Completed University o f Polysaccharide, 00:00:00 [place] Med ical PPSV23 (PNEUMOVAX) Branch Influenza Virus 2020-05-28 Completed Universit y of Vaccine Quad .5 mL 00:00:00 [place] Medical IM 6+ MO Branch Pneumococcal 2020-05-28 Completed University o f Polysaccharide, 00:00:00 [place] Med ical PPSV23 (PNEUMOVAX) Branch Influenza Virus 2020-05-28 Completed Universit y of Vaccine Quad .5 mL 00:00:00 [place] [facility] IM 6+ MO Branch Pneumococcal 2020-05-28 Completed University o f Polysaccharide, 00:00:00 [place] Med ical PPSV23 (PNEUMOVAX) Branch Influenza Virus 2020-05-28 Completed Universit y of Vaccine Quad .5 mL 00:00:00 [place] [facility] IM 6+ MO Branch Pneumococcal 2020-05-28 Completed University o f Polysaccharide, 00:00:00 [place] Med ical PPSV23 (PNEUMOVAX) Branch Influenza Virus 2020-05-28 Completed Universit y of Vaccine Quad .5 mL 00:00:00 [place] [facility] IM 6+ MO Branch Pneumococcal 2020-05-28 Completed University o f Polysaccharide, 00:00:00 [place] Med ical PPSV23 (PNEUMOVAX) Branch Influenza Virus 2020-05-28 Completed Universit y of Vaccine Quad .5 mL 00:00:00 [place] [facility] IM 6+ MO Branch Pneumococcal 2020-05-28 Completed University o f Polysaccharide, 00:00:00 [place] Med ical PPSV23 (PNEUMOVAX) Branch Influenza Virus 2020-05-28 Completed Universit y of Vaccine Quad .5 mL 00:00:00 [place] [facility] IM 6+ MO Branch Pneumococcal 2020-05-28 Completed University o f Polysaccharide, 00:00:00 [place] Med ical PPSV23 (PNEUMOVAX) Branch Influenza Virus 2020-05-28 Completed Universit y of Vaccine Quad .5 mL 00:00:00 [place] [facility] IM 6+ MO Branch Pneumococcal 2020-05-28 Completed University o f Polysaccharide, 00:00:00 [place] Med ical PPSV23 (PNEUMOVAX) Branch Influenza Virus 2020-05-28 Completed Universit y of Vaccine Quad .5 mL 00:00:00 [place] [facility] IM 6+ MO Branch Pneumococcal 2020-05-28 Completed University o f Polysaccharide, 00:00:00 [place] Med ical PPSV23 (PNEUMOVAX) Branch Influenza Virus 2020-05-28 Completed Universit y of Vaccine Quad .5 mL 00:00:00 [place] [facility] IM 6+ MO Branch Pneumococcal 2020-05-28 Completed University o f Polysaccharide, 00:00:00 [place] Med ical PPSV23 (PNEUMOVAX) Branch Influenza Virus 2020-05-28 Completed Universit y of Vaccine Quad .5 mL 00:00:00 [place] Medical IM 6+ MO Branch Pneumococcal 2020-05-28 Completed University o f Polysaccharide, 00:00:00 [place] Med ical PPSV23 (PNEUMOVAX) Branch Influenza Virus 2020-05-28 Completed Universit y of Vaccine Quad .5 mL 00:00:00 [place] [facility] IM 6+ MO Branch Pneumococcal 2020-05-28 Completed University o f Polysaccharide, 00:00:00 [place] Med ical PPSV23 (PNEUMOVAX) Branch Influenza Virus 2020-05-28 Completed Universit y of Vaccine Quad .5 mL 00:00:00 [place] [facility] IM 6+ MO Branch Pneumococcal 2020-05-28 Completed University o f Polysaccharide, 00:00:00 [place] Med ical PPSV23 (PNEUMOVAX) Branch Influenza Virus 2020-05-28 Completed Universit y of Vaccine Quad .5 mL 00:00:00 [place] [facility] IM 6+ MO Branch Pneumococcal 2020-05-28 Completed University o f Polysaccharide, 00:00:00 [place] Med ical PPSV23 (PNEUMOVAX) Branch Influenza Virus 2020-05-28 Completed Universit y of Vaccine Quad .5 mL 00:00:00 [place] [facility] IM 6+ MO Branch Pneumococcal 2020-05-28 Completed University o f Polysaccharide, 00:00:00 [place] Med ical PPSV23 (PNEUMOVAX) Branch Influenza Virus 2020-05-28 Completed Universit y of Vaccine Quad .5 mL 00:00:00 [place] [facility] IM 6+ MO Branch Pneumococcal 2020-05-28 Completed University o f Polysaccharide, 00:00:00 [place] Med ical PPSV23 (PNEUMOVAX) Branch Influenza Virus 2020-05-28 Completed Universit y of Vaccine Quad .5 mL 00:00:00 [place] [facility] IM 6+ MO Branch Pneumococcal 2020-05-28 Completed University o f Polysaccharide, 00:00:00 [place] Med ical PPSV23 (PNEUMOVAX) Branch Influenza Virus 2020-05-28 Completed Universit y of Vaccine Quad .5 mL 00:00:00 [place] [facility] IM 6+ MO Branch Td 2018-06-12 Completed University of 00:00:00 [facility] Td 2018-06-12 Completed University of 00:00:00 [facility] Td 2018-06-12 Completed University of 00:00:00 [facility] Td 2018-06-12 Completed University of 00:00:00 [facility] Td 2018-06-12 Completed University of 00:00:00 [facility] Td 2018-06-12 Completed University of 00:00:00 [facility] Td 2018-06-12 Completed University of 00:00:00 [facility] Td 2018-06-12 Completed University of 00:00:00 [facility] Td 2018-06-12 Completed University of 00:00:00 [facility] Td 2018-06-12 Completed University of 00:00:00 [facility] Td 2018-06-12 Completed University of 00:00:00 [facility] Td 2018-06-12 Completed University of 00:00:00 [facility] Td 2018-06-12 Completed University of 00:00:00 [facility] Td 2018-06-12 Completed University of 00:00:00 [facility] Td 2018-06-12 Completed University of 00:00:00 [facility] Td 2018-06-12 Completed University of 00:00:00 [facility] Td 2018-06-12 Completed University of 00:00:00 [facility] Td 2018-06-12 Completed University of 00:00:00 [facility] Td 2018-06-12 Completed University of 00:00:00 [facility] Td 2018-06-12 Completed University of 00:00:00 [facility] Td 2018-06-12 Completed University of 00:00:00 [facility] Td 2018-06-12 Completed University of 00:00:00 [facility] Td 2018-06-12 Completed University of 00:00:00 [facility] Td 2018-06-12 Completed University of 00:00:00 [facility] Td 2018-06-12 Completed University of 00:00:00 [facility] Vital Signs Vital Name Observation Time Observation Value Comments Source Systolic blood 2021-01-16 119 mm[Hg] University of pressure 16:12:00 [facility] Diastolic blood 2021-01-16 80 mm[Hg] [place] o f pressure 16:12:00 [facility] Heart rate 2021-01-16 68 /min University of 16:12:00 [facility] Body temperature 2021-01-16 35.56 [place] University of 16:12:00 [facility] Respiratory rate 2021-01-16 20 /min University of 16:12:00 [facility] Oxygen saturation 2021-01-16 98 /min [facility] in Arterial blood 16:12:00 [facility] by Pulse oximetry [place] Body weight 2021-01-14 117.935 kg University of 22:03:00 [facility] BMI 2021-01-14 38.38 kg/m2 University of 22:03:00 [facility] Systolic blood 2020-09-09 137 mm[Hg] University of pressure 14:11:00 [facility] Branch Diastolic blood 2020-09-09 81 mm[Hg] University o f pressure 14:11:00 [facility] Heart rate 2020-09-09 78 /min University of 14:11:00 [facility] Body temperature 2020-09-09 36.33 [place] University of 14:11:00 [facility] Respiratory rate 2020-09-09 18 /min University of 14:11:00 [facility] Oxygen saturation 2020-09-09 97 /min University of in Arterial blood 14:11:00 [place] [facility] by Pulse oximetry Branch Body weight 2020-09-09 115.304 kg University of 11:28:00 [facility] BMI 2020-09-09 37.52 kg/m2 University of 11:28:00 [facility] Body height 2020-09-07 175.3 cm University of 16:03:49 [facility] Systolic blood 2020-09-09 137 mm[Hg] University of pressure 14:11:00 [facility] Diastolic blood 2020-09-09 81 mm[Hg] University o f pressure 14:11:00 [facility] Heart rate 2020-09-09 78 /min University of 14:11:00 [facility] Body temperature 2020-09-09 36.33 [place] University of 14:11:00 [facility] Respiratory rate 2020-09-09 18 /min University of 14:11:00 [facility] Oxygen saturation 2020-09-09 97 /min University of in Arterial blood 14:11:00 [place] [facility]i zaina by Pulse oximetry Branch Body weight 2020-09-09 115.304 kg University of 11:28:00 [facility] BMI 2020-09-09 37.52 kg/m2 University of 11:28:00 [facility] Body height 2020-09-07 175.3 cm University of 16:03:49 [facility] Systolic blood 2020-09-03 117 mm[Hg] University of pressure 17:23:00 [facility] Diastolic blood 2020-09-03 89 mm[Hg] University o f pressure 17:23:00 [facility] Heart rate 2020-09-03 70 /min University of 17:23:00 [facility] Body temperature 2020-09-03 36 [place] University of 17:23:00 [facility] Oxygen saturation 2020-09-03 97 /min University of in Arterial blood 17:23:00 [place] [facility]i zaina by Pulse oximetry Branch Respiratory rate 2020-09-03 18 /min University of 13:31:00 [facility] Body height 2020-09-01 175.3 cm University of 22:40:00 [facility] Body weight 2020-09-01 116.121 kg University of 22:40:00 [facility] BMI 2020-09-01 37.80 kg/m2 University of 22:40:00 [facility] Systolic blood 2020-09-03 117 mm[Hg] University of pressure 17:23:00 [facility] Branch Diastolic blood 2020-09-03 89 mm[Hg] University o f pressure 17:23:00 [facility] Heart rate 2020-09-03 70 /min University of 17:23:00 [facility] Body temperature 2020-09-03 36 [place] University of 17:23:00 [facility] Oxygen saturation 2020-09-03 97 /min University of in Arterial blood 17:23:00 [facility] by Pulse oximetry Branch Respiratory rate 2020-09-03 18 /min University of 13::00 [facility] Body height 2020-09-01 175.3 cm University of :40:00 [facility] Body weight 2020-09-01 116.121 kg University of :40:00 [facility] BMI 2020-09-01 37.80 kg/m2 University of 22:40:00 [facility] Systolic blood 2020-06-27 140 mm[Hg] University of pressure 19:18:00 [facility] Diastolic blood 2020-06-27 89 mm[Hg] University o f pressure 19:18:00 [facility] Heart rate 2020-06-27 89 /min University of 19:15:00 [facility] Branch Respiratory rate 2020-06-27 19 /min University of 19:15:00 [facility] Body height 2020-06-27 175.3 cm University of 19:15:00 [facility] Body weight 2020-06-27 113.309 kg University of 19:15:00 [facility] BMI 2020-06-27 36.89 kg/m2 University of 19:15:00 [facility] Oxygen saturation 2020-06-27 92 /min University of in Arterial blood 19:15:00 [facility] zaina by Pulse oximetry Branch Systolic blood 2020-06-27 140 mm[Hg] University of pressure 19:18:00 [facility] Branch Diastolic blood 2020-06-27 89 mm[Hg] University o f pressure 19:18:00 [facility] Heart rate 2020-06-27 89 /min University of 19:15:00 [facility] Branch Respiratory rate 2020-06-27 19 /min University of 19:15:00 [facility] Body height 2020-06-27 175.3 cm University of 19:15:00 [facility] Body weight 2020-06-27 113.309 kg University of 19:15:00 [facility] BMI 2020-06-27 36.89 kg/m2 University of 19:15:00 [facility] Oxygen saturation 2020-06-27 92 /min University of in Arterial blood 19:15:00 [facility] by Pulse oximetry Branch Systolic blood 2020-06-03 118 mm[Hg] University of pressure 16:35:00 [facility] Diastolic blood 2020-06-03 73 mm[Hg] University o f pressure 16:35:00 [facility] Heart rate 2020-06-03 86 /min University of 16:35:00 [facility] Body temperature 2020-06-03 36.5 Pilar University of 16:35:00 [facility] Respiratory rate 2020-06-03 20 /min University of 16:35:00 [facility] Oxygen saturation 2020-06-03 95 /min University of in Arterial blood 16:35:00 [facility] by Pulse oximetry Branch Body weight 2020-06-03 91.536 kg remove 2 extra University of 10:00:00 pillows from [facility] bed Branch BMI 2020-06-03 29.80 kg/m2 University of 10:00:00 [facility] Body height 2020-06-02 175.3 cm University of 21:13:00 [facility] Systolic blood 2020-05-28 104 mm[Hg] University of pressure 17:22:00 [facility] Diastolic blood 2020-05-28 69 mm[Hg] University o f pressure 17:22:00 [facility] Heart rate 2020-05-28 78 /min University of 17:22:00 [facility] Body temperature 2020-05-28 37.33 Pilar University of 17:22:00 [facility] Respiratory rate 2020-05-28 16 /min University of 17:22:00 [facility] Oxygen saturation 2020-05-28 92 /min University of in Arterial blood 17:22:00 [facility] by Pulse oximetry [place] Body weight 2020-05-24 114.533 kg University 08:28:00 [facility] BMI 2020-05-24 37.29 kg/m2 University 08:28:00 [facility] Body height 2020-05-23 175.3 cm University of 22:55:00 [facility] Systolic blood 2019-10-31 155 mm[Hg] University of pressure 20:30:00 [facility] Diastolic blood 2019-10-31 100 mm[Hg] University o f pressure 20:30:00 [facility] Heart rate 2019-10-31 97 /min University 20:30:00 [facility] Respiratory rate 2019-10-31 23 /min University 20:30:00 [facility] Oxygen saturation 2019-10-31 97 /min University of in Arterial blood 20:30:00 [facility] by Pulse oximetry [place] Body temperature 2019-10-31 37.61 Pilar University of 18:40:00 [facility] Body height 2019-10-31 165.1 cm University of 18:40:00 [facility] Body weight 2019-10-31 117.935 kg University of 18:40:00 [facility] BMI 2019-10-31 43.27 kg/m2 University of 18:40:00 [facility] Systolic blood 2019-05-10 214 mm[Hg] University of pressure 02:00:00 [facility] Diastolic blood 2019-05-10 126 mm[Hg] University o f pressure 02:00:00 [facility] Heart rate 2019-05-10 94 /min University of 02:00:00 [facility] Respiratory rate 2019-05-10 18 /min University of 02:00:00 [facility] Oxygen saturation 2019-05-10 97 /min University of in Arterial blood 02:00:00 [facility] by Pulse oximetry [place] Body temperature 2019-05-09 36.94 Pilar [facility] 23:45:00 [facility] Body weight 2019-05-09 110.224 kg University of 23:26:00 [facility] BMI 2019-05-09 36.95 kg/m2 University of 23:26:00 [facility] Procedures Procedure Date / Time Performing Clinician Source Performed POCT GLUCOSE (AUTOMATED) 2021-01-16 12:34:00 Logan Seth [facility] POCT GLUCOSE (AUTOMATED) 2021-01-16 04:43:00 Logan Seth [facility] POCT GLUCOSE (AUTOMATED) 2021-01-16 01:13:00 Logan Seth [facility] POCT GLUCOSE (AUTOMATED) 2021-01-15 21:17:00 Logan Seth [facility] TRANSTHORACIC ECHO (TTE) 2021-01-15 16:49:19 Shyann Mendez [facility] W/ CONTRAST Medical [facility] POCT GLUCOSE (AUTOMATED) 2021-01-15 16:03:00 Logan Seth [facility] POCT GLUCOSE (AUTOMATED) 2021-01-15 13:06:00 Logan Seth [facility] HB ECG ROUTINE & RHYTHM 2021-01-15 10:19:39 Shyann Mendez [facility] POCT GLUCOSE (AUTOMATED) 2021-01-15 09:35:00 Logan Seth [facility] CBC WITH DIFF 2021-01-15 07:14:00 Logan Seth [facility] GLYCOSYLATED HEMOGLOBIN 2021-01-15 07:14:00 Dorinda Logan [facility] (A1C) [facility] TROPONIN I 2021-01-15 07:13:00 Logan Seth [facility] BASIC METABOLIC PANEL 2021-01-15 07:13:00 Logan Seth [facility] (NA, K, CL, CO2, GLUCOSE, Medica l Branch BUN, CREATININE, CA) POCT GLUCOSE (AUTOMATED) 2021-01-15 05:19:00 Logan Seth [facility] TROPONIN I 2021-01-15 02:52:00 Logan Seth [facility] URINE DRUG (IMMUNOASSAY) 2021-01-15 00:50:00 Shyann Mendez [facility] DRUG [facility] SCREEN POCT GLUCOSE (AUTOMATED) 2021-01-14 23:57:00 Logan Seth [facility] COVID-19 (ID NOW RAPID 2021-01-14 23:53:00 Betsy Rodriguez [facility] TESTING) Medical Branch N-TERMINAL PRO-BNP 2021-01-14 23:39:00 Kathryn Meredith [facility] XR CHEST 1 VW 2021-01-14 22:39:02 Betsy Rodriguez [facility] PROTHROMBIN TIME / INR 2021-01-14 22:23:00 Betsy Rodriguez Lillie [facility] ACTIVATED PARTIAL 2021-01-14 22:23:00 Betsy Rodriguez Lillie [facility] THRMPLAS CHRISTIANO [facility] HB ECG ROUTINE & RHYTHM 2021-01-14 22:14:28 Betsy Rodriguez [facility] STRIP [facility] Branch LIPASE 2021-01-14 22:09:00 Betsy Rodriguez [facility] TROPONIN I 2021-01-14 22:09:00 Betsy Rodriguez [facility] THYROID STIMULATING 2021-01-14 22:09:00 Shyann Mendez [facility] HORMONE [facility] Branch COMP. 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 2020-10-06 06:01:00 Doctor Unassrobert, [facility] [place] [facility] POCT GLUCOSE (AUTOMATED) 2020-09-09 14:12:00 John Armstrong [facility] BASIC METABOLIC PANEL 2020-09-09 09:20:00 Simon Campbell [facility] (NA, K, CL, CO2, GLUCOSE, Medica l Branch BUN, CREATININE, CA) MAGNESIUM 2020-09-09 09:20:00 Adrian Simon [facility] POCT GLUCOSE (AUTOMATED) 2020-09-09 03:08:00 John Armstrong [facility] POCT GLUCOSE (AUTOMATED) 2020-09-08 22:49:00 Patti John [facility] POCT GLUCOSE (AUTOMATED) 2020-09-08 18:24:00 John Armstrong [facility] BASIC METABOLIC PANEL 2020-09-08 11:11:00 Simon Campbell [facility] (NA, K, CL, CO2, GLUCOSE, Medica l Branch BUN, CREATININE, CA) MAGNESIUM 2020-09-08 11:11:00 Adrian [facility] POCT GLUCOSE (AUTOMATED) 2020-09-08 00:05:00 Any Sherman F [facility] POCT GLUCOSE (AUTOMATED) 2020-09-07 22:06:00 Any Sherman F [facility] POCT GLUCOSE (AUTOMATED) 2020-09-07 18:15:00 Any Sherman F [facility] POCT ACT LOW RANGE 2020-09-07 17:03:00 Any Sherman F [facility] POCT ACT LOW RANGE 2020-09-07 16:47:00 Any Sherman F [facility] POCT ACT LOW RANGE 2020-09-07 16:40:00 Any Sherman F [facility] HB ECG ROUTINE & RHYTHM 2020-09-07 10:14:03 Simon Campbell [facility] BASIC METABOLIC PANEL 2020-09-07 09:10:00 Simon Campbell [facility] (NA, K, CL, CO2, GLUCOSE, Medica l Branch BUN, CREATININE, CA) LIPID PANEL ([id number])(TOTAL 2020-09-07 09:10:00 Simon Campbell [facility] CHOLESTEROL, [facility] TRIGLYCERIDES, HDL) ACTIVATED PARTIAL 2020-09-07 09:10:00 John Paul Gutiérrez [facility] LOW-DENSITY LIPOPROTEIN, 2020-09-07 09:10:00 Simon Campbell [facility] DIRECT [facility] Branch MAGNESIUM 2020-09-07 09:10:00 Simon Campbell [facility] TROPONIN I 2020-09-07 04:38:00 Simon Campbell [facility] POCT GLUCOSE (AUTOMATED) 2020-09-07 04:35:00 Any Sherman [facility] GALV/CLC ONLY - URINE 2020-09-07 01:22:00 Simon Campbell [facility] DRUG (IMMUNOASSAY) - Medical [facility] COMPREHENSIVE DRUG SCREEN ACTIVATED PARTIAL 2020-09-07 01:22:00 John Paul Gutiérrez [facility] POCT GLUCOSE (AUTOMATED) 2020-09-06 22:28:00 Any Sherman [facility] TROPONIN I 2020-09-06 21:17:00 Simon Campbell [facility] HB ECG ROUTINE & RHYTHM 2020-09-06 21:12:51 Ilene Devi [facility] CRITICAL CARE 2020-09-06 18:12:00 Ilene Devi [facility] XR CHEST 1 VW 2020-09-06 16:34:25 Singer Jasiel [facility] COMP. METABOLIC PANEL 2020-09-06 16:13:00 Jasiel Saenz [facility] ([id number]) [facility] CBC WITH DIFF 2020-09-06 16:13:00 Singer [facility] GLYCOSYLATED HEMOGLOBIN 2020-09-06 16:13:00 Simon Campbell [facility] (A1C) [facility] PROTHROMBIN TIME / INR 2020-09-06 16:13:00 Singer Jasiel [facility] ACTIVATED PARTIAL 2020-09-06 16:13:00 [facility] N-TERMINAL PRO-BNP 2020-09-06 16:13:00 Ilene Devi [facility] COVID-19 (ID NOW RAPID 2020-09-06 16:13:00 Ilene Devi [facility] TESTING) Medical Branch LAB ONLY COVID 2020-09-06 16:13:00 Ilene Devi [facility] INTERPRETATION [facility] Branch LIPASE 2020-09-06 16:13:00 Singer [facility] MAGNESIUM 2020-09-06 16:13:00 Adrian [facility] TROPONIN I 2020-09-06 16:13:00 Singer [facility] HB ECG ROUTINE & RHYTHM 2020-09-06 16:00:27 Singer [facility] NOTICE OF PRIVACY 2020-09-06 15:50:24 Doctor Unassigned, [facility] PRACTICES [place] [facility] POCT GLUCOSE (AUTOMATED) 2020-09-03 17:27:00 [facility] POCT GLUCOSE (AUTOMATED) 2020-09-03 13:35:00 Che [facility] TROPONIN I 2020-09-03 09:55:00 Jorge Rojas [facility] BASIC METABOLIC PANEL 2020-09-03 09:55[facility] ([facility], K, CL, CO2, GLUCOSE, Medica l Branch BUN, CREATININE, CA) CBC WITH DIFF 2020-09-03 09:55:00 Che [facility] POCT GLUCOSE (AUTOMATED) 2020-09-03 01:44:00 [facility] POCT GLUCOSE (AUTOMATED) 2020-09-02 17:07:00 Che [facility] POCT GLUCOSE (AUTOMATED) 2020-09-02 13:56:00 Che [facility] TROPONIN I 2020-09-02 10:15:00 Che [facility] TROPONIN I 2020-09-02 05:18:00 Che [facility] POCT GLUCOSE (AUTOMATED) 2020-09-02 02:53:00 Chantel Bolton [facility] CT CHEST PULMONARY 2020-09-02 01:21:00 Isamar Medina [facility] ANGIOGRAM Medical Branch COVID-19 (ID NOW RAPID 2020-09-01 23:10:00 Adam [facility] TESTING) Medical Branch LAB ONLY COVID 2020-09-01 23:10:00 Adam [facility] INTERPRETATION [facility] URINALYSIS 2020-09-01 23:09:[address] [facility] XR CHEST 1 VW 2020-09-01 22:55:[address] [facility] TROPONIN I 2020-09-01 22:54:[address] [facility] HEPATIC FUNCTION PANEL 2020-09-01 22:54:00 Adam [facility] ([id number]) (ALB,T.PRO,BILI [facility] T,BU/BC,ALT,AST,ALK PHOS) BASIC METABOLIC PANEL 2020-09-01 22:54:00 [facility] ([facility], K, CL, CO2, GLUCOSE, Medica l Branch BUN, CREATININE, CA) CBC WITH DIFF 2020-09-01 22:54:[address] [facility] PROTHROMBIN TIME / INR 2020-09-01 22:54:00 [facility] 2020-09-01 22:54:[address] [facility] N-TERMINAL PRO-BNP 2020-09-01 22:54:00 Adam Isamar [facility] HB ECG ROUTINE & RHYTHM 2020-09-01 22:49:16 Isamar Medina [facility] NOTICE OF PRIVACY 2020-09-01 22:35:14 Doctor Unassigned, [facility] PRACTICES [place] [facility] CONSENT/REFUSAL FOR 2020-09-01 22:34:24 Doctor Unassigned, [facility] DIAGNOSIS AND TREATMENT [place] [facility] MEDICAL RELEASE/CLEARANCE 2020-07-05 06:01:00 Doctor Unassigned, [facility] FORMS [place] [facility] POCT GLUCOSE (AUTOMATED) 2020-06-03 16:35:00 Florian Dyer [facility] POCT GLUCOSE (AUTOMATED) 2020-06-03 13:02:00 Florian Dyer [facility] TROPONIN I 2020-06-03 05:44:00 Andrea [facility] BASIC METABOLIC PANEL 2020-06-03 05:44:00 Andrea [facility] (NA, K, CL, CO2, GLUCOSE, Medica l Branch BUN, CREATININE, CA) CBC WITH DIFF 2020-06-03 05:44:00 Andrea [facility] TROPONIN I 2020-06-02 22:44:00 Andrea [facility] POCT GLUCOSE (AUTOMATED) 2020-06-02 21:29:00 Florian Dyer [facility] COVID-19 (ID NOW RAPID 2020-06-02 17:24:00 Luis Angel Arreola [facility] TESTING) Medical Branch LIPASE 2020-06-02 16:51:00 Maxwell Luis Angel [facility] MAGNESIUM 2020-06-02 16:51:00 Andrea [facility] TROPONIN I 2020-06-02 16:51:00 Maxwell Luis Angel [facility] THYROID STIMULATING 2020-06-02 16:51:00 Andrea [facility] HORMONE [facility] COMP. METABOLIC PANEL 2020-06-02 16:51:00 Luis Angel Arreola [facility] ([id number]) [facility] LIPID PANEL ([id number])(TOTAL 2020-06-02 16:51:00 Kathryn Meredith [facility] CHOLESTEROL, [facility] TRIGLYCERIDES, HDL) CBC WITH DIFF 2020-06-02 16:51:00 Maxwell Luis Angel [facility] PROTHROMBIN TIME / INR 2020-06-02 16:51:00 Luis Angel Arreola [facility] ACTIVATED PARTIAL 2020-06-02 16:51:00 Maxwell [facility] THRMPLAS N-TERMINAL PRO-BNP 2020-06-02 16:51:00 Kathryn Meredith [facility] XR CHEST 1 VW 2020-06-02 16:45:11 Maxwell [facility] EKG-12 LEAD 2020-06-02 16:39:34 Maxwell [facility] POCT GLUCOSE (AUTOMATED) 2020-05-28 18:34:00 Abu-Sharife, [facility] POCT GLUCOSE (AUTOMATED) 2020-05-28 14:06:00 Abu-Sharife, [facility] CK (CREATINE KINASE) + MB 2020-05-28 09:12:00 Christiana Webster [facility] MAGNESIUM 2020-05-28 09:12:00 [facility] TROPONIN I 2020-05-28 09:12:00 [facility] BASIC METABOLIC PANEL 2020-05-28 09:12:00 Powell [facility] (NA, K, CL, CO2, GLUCOSE, Medica l Branch BUN, CREATININE, CA) CBC WITHOUT DIFF 2020-05-28 09:12:00 Andrea Cano [facility] POCT GLUCOSE (AUTOMATED) 2020-05-28 02:38:00 [facility] CK (CREATINE KINASE) + MB 2020-05-28 02:14:00 Christiana Webster [facility] MAGNESIUM 2020-05-28 02:14:00 [facility] TROPONIN I 2020-05-28 02:14:00 [facility] BASIC METABOLIC PANEL 2020-05-28 02:14:00 [facility] (NA, K, CL, CO2, GLUCOSE, Medica l Branch BUN, CREATININE, CA) POCT GLUCOSE (AUTOMATED) 2020-05-27 23:07:00 Abu-Sharifeh, [facility] POCT GLUCOSE (AUTOMATED) 2020-05-27 16:42:00 Abu-Sharifeh, [facility] POCT GLUCOSE (AUTOMATED) 2020-05-27 12:35:00 Abu-Livier [facility] ACTIVATED PARTIAL 2020-05-27 08:13:00 Randy [facility] MAGNESIUM 2020-05-27 06:07:00 Powell Shelton [facility] BASIC METABOLIC PANEL 2020-05-27 06:07:00 Powell Shelton [facility] (NA, K, CL, CO2, GLUCOSE, Medica l Branch BUN, CREATININE, CA) ACTIVATED PARTIAL 2020-05-27 06:07:00 Randy [facility] ACTIVATED PARTIAL 2020-05-27 04:17:00 Michaela [facility] ACTIVATED PARTIAL 2020-05-27 01:55:[facility]AUTOMATED) 2020-05-27 01:55:00 Abu-Opalh [facility] EKG-12 LEAD 2020-05-27 00:29:39 Abu-Livier [facility] POCT ACT LOW RANGE 2020-05-26 23:41:00 [facility] POCT ACT LOW RANGE 2020-05-26 23:33:00 [facility] POCT ACT LOW RANGE 2020-05-26 22:57:00 Abu-Sharciroh, Tareq Unive [facility] POCT ACT LOW RANGE 2020-05-26 22:22:00 Abu-Sharifeh, Tareq Unive [facility] POCT GLUCOSE (AUTOMATED) 2020-05-26 21:17:00 Abu-Opalh [facility] EKG-12 LEAD 2020-05-26 17:08:00 Jenelle [facility] POCT GLUCOSE (AUTOMATED) 2020-05-26 16:49:00 Abu-Opalh [facility] ACTIVATED PARTIAL 2020-05-26 16:09:00 Logan Seth [facility] MAGNESIUM 2020-05-26 08:19:00 Shelton Powell [facility] BASIC METABOLIC PANEL 2020-05-26 08:19:00 Shelton Powell [facility] (NA, K, CL, CO2, GLUCOSE, Medica l Branch BUN, CREATININE, CA) ACTIVATED PARTIAL 2020-05-26 08:19:00 Logan Seth [facility] POCT GLUCOSE (AUTOMATED) 2020-05-26 01:42:00 Abu-Livier [facility] ACTIVATED PARTIAL 2020-05-25 23:45:00 Dorinda [facility] POCT GLUCOSE (AUTOMATED) 2020-05-25 21:06:00 Abu-Livier [facility] POCT GLUCOSE (AUTOMATED) 2020-05-25 16:48:00 Abu-Livier [facility] ACTIVATED PARTIAL 2020-05-25 15:35:00 Dorinda [facility] POCT GLUCOSE (AUTOMATED) 2020-05-25 12:49:00 Abu-Livier [facility] PROTHROMBIN TIME / INR 2020-05-25 12:09:00 Leonard Quiroz [facility] ACTIVATED PARTIAL 2020-05-25 12:09:00 Logan Seth [facility] MAGNESIUM 2020-05-25 09:37:00 Shelton Powell [facility] TROPONIN I 2020-05-25 09:37:00 Norma Jennings [facility] BASIC METABOLIC PANEL 2020-05-25 09:37:00 Shelton Powell [facility] (NA, K, CL, CO2, GLUCOSE, Medica l Branch BUN, CREATININE, CA) POCT GLUCOSE (AUTOMATED) 2020-05-25 09:35:00 Abu-Livier [facility] MRSA / MSSA SCREEN BY 2020-05-25 09:01:00 Shelton Powell [facility] PCR, [facility] ACTIVATED PARTIAL 2020-05-25 05:23:00 Logan Seth [facility] POCT GLUCOSE (AUTOMATED) 2020-05-25 05:22:00 [facility] ([facility]OMATED) 2020-05-24 23:36:00 Logan Seth [facility] ACTIVATED PARTIAL 2020-05-24 20:58:00 Logan Seth [facility] POCT GLUCOSE (AUTOMATED) 2020-05-24 16:44:00 Logan Seth [facility] ACTIVATED PARTIAL 2020-05-24 14:41:00 Dorinda [facility] ECHO ROUTINE W/DOPPLER 2020-05-24 13:52:07 Logan Seth [facility] POCT GLUCOSE (AUTOMATED) 2020-05-24 13:01:00 Logan Seth [facility] TROPONIN I 2020-05-24 02:31:00 Logan Seth [facility] POCT GLUCOSE (AUTOMATED) 2020-05-24 00:56:00 Logan Seth [facility] TROPONIN I 2020-05-23 22:09:00 Logan Seth [facility] LIPID PANEL ([id number])(TOTAL 2020-05-23 22:09:00 Logan Seth [facility] CHOLESTEROL, [facility] TRIGLYCERIDES, HDL) LOW-DENSITY LIPOPROTEIN, 2020-05-23 22:09:00 Logan Seth [facility] DIRECT [facility] CT CHEST PULMONARY 2020-05-23 21:10:50 Héctor Bales [facility] ANGIOGRAM Medical Branch XR CHEST 1 VW 2020-05-23 20:10:[address] [facility] URINALYSIS 2020-05-23 20:10:[address] [facility] TROPONIN I 2020-05-23 19:36:00 [facility] FUN[facility] PANEL 2020-05-23 19:36:00 Isamar Medina [facility] ([id number]) (ALB,T.PRO,BILI Medical Branch T,BU/BC,ALT,AST,ALK PHOS) BASIC METABOLIC PANEL 2020-05-23 19:36:00 [facility] (NA, K, CL, CO2, GLUCOSE, Medica l Branch BUN, CREATININE, CA) CBC WITH DIFF 2020-05-23 19:36:[address] [facility] GLYCOSYLATED HEMOGLOBIN 2020-05-23 19:36:00 Logan Seth [facility] (A1C) [facility] Branch N-TERMINAL PRO-BNP 2020-05-23 19:36:00 [facility] COVID-19 (ID NOW RAPID 2020-05-23 19:36:00 Medina, [facility] TESTING) Medical Branch EKG-12 LEAD 2020-05-23 19:32:43 [facility] EKG-12 LEAD 2020-05-23 19:29:19 Danny Holland [facility] NOTICE OF PRIVACY 2020-05-23 19:12:19 Doctor Unassigned, [facility] PRACTICES [place] [facility] [place] CONSENT/REFUSAL FOR 2020-05-23 19:12:07 Doctor Unassigned, [facility] DIAGNOSIS AND TREATMENT [place] [facility] POCT GLUCOSE (AUTOMATED) 2019-10-31 20:36:00 Vivian Young [facility] EKG-12 LEAD 2019-10-31 20:00:04 Vivian Young [facility] CT CHEST PULMONARY 2019-10-31 19:45:26 Vivian Young [facility] ANGIOGRAM Medical Branch TROPONIN I 2019-10-31 18:58:00 Vivian Young [facility] HEPATIC FUNCTION PANEL 2019-10-31 18:58:00 Vivian Young [facility] ([id number]) (ALB,T.PRO,BILI Medical Branch T,BU/BC,ALT,AST,ALK PHOS) BASIC METABOLIC PANEL 2019-10-31 18:58:00 Vivian Young [facility] (NA, K, CL, CO2, GLUCOSE, Medica l Branch BUN, CREATININE, CA) CBC WITH DIFFERENTIAL 2019-10-31 18:58:00 [facility] / INR 2019-10-31 18:58:00 [facility] ACTIV[facility] PARTIAL 2019-10-31 18:58:00 Vivian Young [facility] THRMPLAS CHRISTIANO [facility] URINALYSIS 2019-10-31 18:58:00 Vivian Young [facility] EKG-12 LEAD 2019-10-31 18:48:12 Vivian Young [facility] NOTICE OF PRIVACY 2019-10-31 18:35:33 Doctor Unassigned, [facility] PRACTICES [place] [facility] [place] CONSENT/REFUSAL FOR 2019-10-31 18:35:18 Doctor Unassigned, [facility] DIAGNOSIS AND TREATMENT [place] [facility] CT ORBITS W CONTRAST 2019-05-10 00:28:54 Nick Trammell [facility] BASIC METABOLIC PANEL 2019-05-09 23:44:00 Nick Trammell [facility] (NA, K, CL, CO2, GLUCOSE, Medica l Branch BUN, CREATININE, CA) CBC WITH DIFFERENTIAL 2019-05-09 23:44:00 Nick Trammell [facility] Encounters Start End Encounter Admission Attending Care Care Encounter Source Date/Time Date/Time Type Type Clinicians Facility Department ID 2021-06-24 Emergency [facility] [id number] [facility] Emergency [facility] [id number] [facility] 16:59[facility] 2021-06-23 Emergency [facility] [id number] Univers 16:08[facility] 2021-06-22 Emergency [facility] [id number] Univers 22:05[facility] 2021-06-22 Emergency [facility] [id number] [facility]:04[facility] 2021-09-04 2021-09-04 Singh Correa [facility] 1.2.840.114 [id number] Univers 00:00:00 00:00:00 Julius AUGUSTIN 350.1.13.10 ity of [facility] [place] [phone] Wi dicnc NAL 059 [facility] 2021-07-02 2021-07-02 YIFAN Clancy 1.2.840.114 [id number] Univers 00:00:00 00:00:00 Management Kayleen OLIVEROS 350.1.13.10 [place] [phone] [place] [id number] [place] 2021-01-17 2021-01-17 Outpatient R ANUJ, [facility] [id number] -[id number] Univers 10:20:00 10:20:00 JULIUS [id number] ity o f [facility] 2021-01-17 2021-01-17 Outpatient R [facility] [id number] Univers 10:20:00 10:20:00 JULIUS bondy o [facility] 2021-01-14 2021-01-16 Emergency Betsy Rodriguez [facility] 1.2.840. 114 [id number] Univers 17:00:00 16:50:00 Logan Seth 350.1.13.10 [place] [phone] [facility] 081 [place] 2021-01-14 2021-01-14 Orders Doctor KRISTIE 1.2.840.114 [id number] Univers 00:00:00 00:00:00 Only Unassigned, CARLOS 350.1.13.[address] [place] [facility] 4.2.7.2.686 Robert as [phone] [facility] [address] 2021-01-04 2021-01-04 Telephone [facility] [id number] Univers 00:00:00 00:00:00 Julius Augustin 350.1.13.10 [place] [phone] Wi dicnc nal 9 [facility] 2020-12-25 2020-12-25 Outpatient R [facility] [id number] -[id number] Univers 09:40:00 09:40:00 JULIUS [id number] ity o f [facility] 2020-12-25 2020-12-25 Outpatient R ANUJ, [facility] [id number] Univers 09:40:00 09:40:00 JULIUS ity o f [facility] 2020-12-19 2020-12-19 Refricci Correa [facility] 1.2.840.114 [id number] Univers 00:00:00 00:00:00 Julius [place] 350.1.13.10 [place] [phone] [place] [id number] [facility] 2020-10-06 2020-10-06 Orders Doctor KRISTIE 1.2.840.114 [id number] Univers 00:00:00 00:00:00 Only Unassigned, CARLOS 350.1.13.[address] [place] [facility] 4.2.7.2.686 Robert as [phone] [facility] [address] 2020-09-19 2020-09-19 Patient Jennie Ramirez 1.2.840.114 [id number] 00:00:00 00:00:00 Outreach E CARLOS 350.1.13.10 [facility] 4.2.7.[id number] [facility] 2020-09-19 2020-09-19 Patient Jennie Ramirez 1.2.840.114 [id number] Univers 00:00:00 00:00:00 Outreach E CARLOS 350.1.13.[address] [facility] 4.2.7.2.686 Robert as [phone] [facility] 043 [address] 2020-09-14 2020-09-14 Patient Jennie Ramirez 1.2.840.114 [id number] Univers 00:00:00 00:00:00 Outreach E Oliveros 350.1.13.10 i ty of [place] [phone] [facility] 403 [address] 2020-09-14 2020-09-14 Patient Jennie Ramirezamy 1.2.840.114 [id number] 00:00:00 00:00:00 Outreach E Oliveros 350.1.13.10 [place] 4.2.7.2.686 [id number] 403 2020-09-12 2020-09-12 Transition Gopal Banerjeeamy 1.2.840.114 [id number] Univers 00:00:00 00:00:00 of Care Corie Oliveros 350.1.13.10 [place] [phone] [facility] [address] 2020-09-12 2020-09-12 Transition Gopal Banerjeeamy 1.2.840.114 [id number] 00:00:00 00:00:00 of Care Corie Oliveros 350.1.13.10 [place] 4.2.7.2.686 [id number] [facility] 2020-09-06 2020-09-09 [facility] 1.2.840.1 14 [id number] [facility] 09:57:00 12:27:00 Encounter Any Sherman Carlos 350.1.13.1 0 ity of [facility] 4.2.7.2.686 [place] [phone] [facility] 090 Branch 2020-09-06 2020-09-09 [facility] 1.2.840.1 14 [id number] 09:57:00 12:27:00 Encounter Any Shermany 350.1.13.1 0 [facility] 4.2.7.2.686 [phone] [facility] 2020-09-06 2020-09-06 Telephone [facility] 1.2.697.155 [id number] [facility] 00:00:00 00:00:00 Julius [place] 350.1.13.10 [place] [phone] [facility] 059 [facility] 2020-09-06 2020-09-06 Telephone [facility] [id number] 00:00:00 00:00:00 Julius [place] 350.1.13.10 [place] 4.2.7.2.686 Professio [phone] nal 059 [facility] 2020-09-01 2020-09-03 Emergency Isamar Medina [facility] 1.2.840 .114 [id number] [facility] 16:41:00 14:30:00 Chantel Bolton Jade 350.1.13.10 [place] [phone] [facility] 081 [place] 2020-09-01 2020-09-03 Emergency Isamar Medina [facility] 1.2.840 .114 [id number] 16:41:00 14:30:00 Chantel Bolton [place] 350.1.13.10 [place] 4.2.7.2.686 [place] [id number] [facility] 2020-07-05 2020-07-05 Orders Doctor KRISTIE 1.2.840.114 [id number] Univers 00:00:00 00:00:00 Only Unassigned, CARLOS 350.1.13.10 [place] [facility] 4.2.7.2.686 Robert as [phone] [address] 2020-07-05 2020-07-05 Orders Doctor KRISTIE 1.2.840.114 [id number] 00:00:00 00:00:00 Only Unassigned, CARLOS 350.1.13.10 [place] [facility] 4.2.7.2.686 [id number] [facility] 2020-06-27 2020-06-27 Office [facility] 1.2.840.114 [id number] Univers 13:05:18 13:42:05 Visit Julius Augustin 350.1.13.10 [place] [phone] Wi dical nal [address] [place] [address] 2020-06-27 2020-06-27 Office [facility] 1.2.840.114 [id number] 13:05:18 13:42:05 Visit Julius Augustin 350.1.13.10 [place] 4.2.7.2.686 Professio [phone] [address] 2020-06-27 2020-06-27 [facility] [id number] Univers 13:00:00 13:00:00 ALISONHERB [id number] ity o f [facility] 2020-06-27 2020-06-27 Outpatient R ANUJ [facility] [id number] Univers 13:00:00 13:00:[address] o [address] [facility] 2020-06-22 2020-06-22 [facility] 1.2.877.160 [id number] Univers 00:00:00 00:00:00 Julius Augustin 350.1.13.10 [place] [phone] Wi dical nal 059 [facility] 2020-06-02 2020-06-03 Emergency Luis Angel Arreola [facility] 1.2.840. 114 [id number] Univers 11:32:00 13:07:00 Florian Dyer 350.1.13.10 [place] [phone] [facility] 081 [address] 2020-05-30 2020-05-30 Transition Yifan Banerjee 1.2.840.114 [id number] Univers 00:00:00 00:00:00 of Care Corie Oliveros 350.1.13.10 [place] [phone] [facility] 403 [address] 2020-05-23 2020-05-28 Hospital Héctor Bales 1.2.840.1 14 [id number] Univers 14:23:00 14:45:00 Encounter Logan Seth 350.1.13.10 ity of [facility] 4.2.7.2.686 [facility] [phone] Medical Ray Cyr 090 [facility] 2020-05-23 2020-05-23 Orders Doctor FLOWERS 1.2.840.114 [id number] Univers 00:00:00 00:00:00 Only Unassigned, CARLOS 350.1.13.10 [place] [facility] 4.2.7.2.686 Robert as [phone] [facility] [address]9 [address] 2019-10-31 2019-10-31 Emergency [facility] 1.2.840.114 [id number] Univers 13:38:57 16:16:00 Vivian Augustin 350.1.13.10 ity [facility] 4.2.7.2.686 [facility] [phone] [address] 2019-10-31 2019-10-31 Emergency X [facility] ERT [id number] Univers 13:38:57 16:16:00 VIVIAN ity [facility] 2019-09-21 2019-09-21 Case Harleen FLOWERS 1.2.840.114 [id number] Univers 00:00:00 00:00:00 Management , Naya COHEN 350.1.13.10 [facility] 4.2.7.2.686 [facility] as [phone] [facility] 025 [place] 2019-05-09 2019-05-09 Emergency [facility] 1.2.079.810 [id number] Univers 17:45:02 22:25:00 Nick Augustin 350.1.13.10 i ty [facility] 4.2.7.2.686 [facility] [phone] [address] Results Test Description Test Time Test Comments Results Result Comments Source POCT GLUCOSE (AUTOMATED) 2021-01-16 12:46:34 Test Item Value Reference Range Interpretation Comme nts POCT GLU (test code = 5436462219) 177 mg/dL 70-110 H Lab Interpretation (test code = 16030-4) Abnormal [facility] GLUCOSE (AUTOMATED)2021-01-16 10:18:23 Test Item Value Reference Range Interpretation Comments POCT GLU (test code = 9116831977) 229 mg/dL 70-110 H Lab Interpretation (test code = Abnormal 33132-1) [facility] GLUCOSE (AUTOMATED)2021-01-16 10:18:18 Test Item Value Reference Range Interpretation Comments POCT GLU (test code = 4436189866) 164 mg/dL 70-110 H Lab Interpretation (test code = Abnormal 14229-5) [facility] GLUCOSE (AUTOMATED)2021-01-16 04:47:30 Test Item Value Reference Range Interpretation Comments POCT GLU (test code = 5837950751) 141 mg/dL 70-110 H Lab Interpretation (test code = Abnormal 80114-8) [facility]2021-01-16 01:30:35 Test Item Value Reference Range Interpretation Comments POCT GLU (test code = 5191017339) 176 mg/dL 70-110 H Lab Interpretation (test code = Abnormal 02424-5) [facility] GLUCOSE (AUTOMATED)2021-01-15 21:25:49 Test Item Value Reference Range Interpretation Comments POCT GLU (test code = 9272569279) 175 mg/dL 70-110 H Lab Interpretation (test code = Abnormal 96487-4) [facility] Hemoglobin (A1C)2021-01-15 16:57:06 Test Item Value Reference Range Interpretation Comments HGB A1C (test code = 9.6 % 4.0-5.7 H 4548-4) ALTAGRACIA (test code = ALTAGRACIA) Reference RangesNormal: <5.7%Prediabetes: 5.7 - 6.4%Diabetes: > 6.5% Lab Interpretation (test Abnormal code = 43421-5) [facility]AL [id number] 15:19:43 Test Item Value Reference Range Interpretation Comments NT-proBNP (test code 314 pg/mL See_Comment H [Autom ated = 7550790141) message] The system which generated this result transmitted reference range : <=125. The reference range was not used to interpret this result as normal/abnormal . ALTAGRACIA (test code = ALTAGRACIA) Biotin has been reported to cause a negative bias, interpret results relative to patient's use of biotin. Lab Interpretation Abnormal (test code = 29503-6) [facility] Center[facility] CHEST 1 [id number] 14:08:55 No acute cardiopulmonary abnormality. Preliminary Report Dictated by Resident: Lv Lewis I, Noam Angel MD., have reviewed this study and agree with theabove report.EXAM: XR CHEST 1 VW COMPARISON: XR CHEST 1 VW, 09/06/2020 HISTORY: chest pain FINDINGS: Lungs: The lungs are clear and moderate expanded. No pleural abnormalities. Heart/Mediastinum: The cardiomediastinal silhouette is normal in sizeaccounting for technique. Bones: No osseous lesions are detected. The soft tissues appear normal [facility], Radiant Results Inft User - 01/15/2021 9:09 AM CDTEXAM: XR CHEST 1 VWCOMPARISON: XR CHEST 1 VW, 09/06/2020HISTORY: chest pain FINDINGS:Lungs: The lungs are clear and moderate expanded. No pleural abnormalities.Heart/Mediastinum: The cardiomediastinal silhouette is normal in sizeaccounting for technique.Bones: No osseous lesions are detected. The soft tissues appear normalIMPRESSIONNo acute cardiopulmonary abnormality.Preliminary Report Dictated by Resident: Lv Zuniga, Noam Dean MD., have reviewed this study and agree with theabove report.[facility] ([facility])2021-01-15 09:40:59 Test Item Value Reference Range Interpretation Comments POCT GLU (test code = 2611361267) 241 mg/dL 70-110 H Lab Interpretation (test code = Abnormal 47157-0) [facility] [id number] 08:59:59 Test Item Value Reference Range Interpretation Comments TROPONIN I (test <0.012 See_Comment [Automated code = 5656976068) message] The system which generated this result transmitted reference range : <=0.034 ng/mL. The reference range was not used to interpr et this result as normal/abnormal . ALTAGRACIA (test code = Equal or Less than ALTAGRACIA) 0.034 ng/ml---Normal ?Note: Cardiac troponin begins to rise 3-4 hours after the onset of ischemia. Repeat in 4-6 hours if the sample was drawn within 3-4 hours of the onset of the symptom and found normal. Between 0.035 and 0.120 ng/mL--- Borderline. Questionable myocardial injury or necrosis ? ?Note: Serial measurement may be necessary to confirm or exclude the diagnosis of myocardial injury or necrosis; Clinical correlation (symptoms, EKGs, imaging studies, and others) required; Repeat in 4-6 hours if clinically indicated. ? Equal or Higher than 0.121 ng/mL---Abnormal. Myocardial Injury or Necrosis Likely ? Biotin has been reported to cause a negative bias, interpret results relative to patient's use of biotin. ? Lab Interpretation Normal (test code = 85518-1) [facility] Metabolic Panel (NA, K, CL, CO2, GLUCOSE, BUN, CREATININE, CA)2021-01-15 08:49:57 Test Item Value Reference Range Interpretation Comments NA (test code = 136 mmol/L 135-145 0325679858) K (test code = 3.9 mmol/L 3.5-5.0 2198624858) CL (test code = 106 mmol/L 98-108 4962364041) CO2 TOTAL (test code = 24 mmol/L 23-31 4640608531) AGAP (test code = 2-16 6070729168) BUN (test code = 23 mg/dL 7-23 9405939911) GLUCOSE (test code = 216 mg/dL 70-110 H 8536133924) CREATININE (test code = 0.71 mg/dL 0.60-1.25 9839175066) CALCIUM (test code = 8.7 mg/dL 8.6-10.6 4423522609) eGFR (test code = mL/min/1.73m2 6406368275) ALTAGRACIA (test code = ALTAGRACIA) Association of Glomerular Filtration Rate (GFR) and Staging of Kidney Disease* + --+ --+ ------+| GFR (mL/min/1.73 m2) ?| With Kidney Damage ?| ?Without Kidney Damage+ --------+ --------+ +| ?>90 ?| ?Stage one ?| ? Normal ?+ ---+ ---+ -------+| ?60-89 ?| ?Stage two ?| ? Decreased GFR ? + --+ --+ ------+| ?30-59 ?| ?Stage three ?| ? Stage three ? + --+ --+ ------+| ?15-29 ?| ?Stage four ? | ? Stage four ?+ ---+ ---+ -------+| ?<15 (or dialysis) ? ?| ?Stage five ? | ? Stage five ?+ ---+ ---+ -------+ *Each stage assumes the associated GFR level has been in effect for at least three months. ?Stages 1 to 5, with or without kidney disease, indicate chronic kidney disease. Notes: Determination of stages one and two (with eGFR >59mL/min/1.73 m2) requires estimation of kidney damage for at least three months as defined by structural or functional abnormalities of the kidney, manifested by either:Pathological abnormalities or Markers of kidney damage (including abnormalities in the composition of the blood or urine or abnormalities in imaging tests). Lab Interpretation Abnormal (test code = 65041-1) [facility] with [id number] 07:33:55 Test Item Value Reference Range Interpretation Comments WBC (test code = See_Comment [Automated 6690-2) message] The sy stem which generated this result transmitted reference range : 4.20 - 10.70 10*3/?L. The reference range was not used to interpret this result as normal/abnormal . RBC (test code = See_Comment [Automated 789-8) message] The sy stem which generated this result transmitted reference range : 4.26 - 5.52 10*6/?L. The reference range was not used to interpret this result as normal/abnormal . HGB (test code = 14.9 g/dL 12.2-16.4 718-7) HCT (test code = 43.4 % 38.4-49.3 4544-3) MCV (test code = 91.8 fL 81.7-95.6 787-2) MCH (test code = 31.5 pg 26.1-32.7 785-6) MCHC (test code = 34.3 g/dL 31.2-35.0 786-4) RDW-SD (test code = 39.8 fL 38.5-51.6 94989-2) RDW-CV (test code = 11.8 % 12.1-15.4 L 788-0) PLT (test code = See_Comment [Automated 777-3) message] The sy stem which generated this result transmitted reference range : 150 - 328 10*3/ ?L. The reference r cristin was not used to interpret this result as normal/abnormal . MPV (test code = 10.2 fL 9.8-13.0 39700-2) NRBC/100 WBC (test See_Comment [Automat ed code = 7394471944) message] The system which generated this result transmitted reference range : 0.0 - 10.0 /100 WBCs. The refer ence range was not u sed to interpret th is result as normal/abnormal . NRBC x10^3 (test code <0.01 See_Comment [Auto mated = 8507172460) message] The s ystem which generated this result transmitted reference range : 10*3/?L. The reference range was not used to interpret this result as normal/abnormal . GRAN MAT (NEUT) % 46.5 % (test code = 770-8) IMM GRAN % (test code 0.30 % = 9120311836) LYMPH % (test code = 40.9 % 736-9) MONO % (test code = 10.0 % 5905-5) EOS % (test code = 1.7 % 713-8) BASO % (test code = 0.6 % 706-2) GRAN MAT x10^3(ANC) 4.07 10*3/uL 1.99-6.95 (test code = 9685688281) IMM GRAN x10^3 (test 0.03 10*3/uL 0.00-0.06 code = 6130095180) LYMPH x10^3 (test code 3.59 10*3/uL 1.09-3.23 H = 731-0) MONO x10^3 (test code 0.88 10*3/uL 0.36-1.02 = 742-7) EOS x10^3 (test code = 0.15 10*3/uL 0.06-0.53 711-2) BASO x10^3 (test code 0.05 10*3/uL 0.01-0.09 = 704-7) Lab Interpretation Abnormal (test code = 10650-4) [facility]2021-01-15 05:22:29 Test Item Value Reference Range Interpretation Comments POCT GLU (test code = 6640260828) 187 mg/dL 70-110 H Lab Interpretation (test code = Abnormal 45113-0) [facility] CenterTHYROID STIMULATING [id number] 05:21:09 Test Item Value Reference Range Interpretation Comments TSH (test code = See_Comment Biotin has been 0526525653) reported to cau se a negative bias, interpret resul ts relative to pat ient's use of biotin. [Automated mess age] The system [employer] generated this result transmitted ref erence range: 0.45 - 4 .70 mIU/L. The refe rence range was not u sed to interpret this result as normal/abnor mal. Lab Interpretation (test Normal code = 63343-3) [facility] [id number] 03:49:21 Test Item Value Reference Range Interpretation Comments TROPONIN I (test <0.012 See_Comment [Automated code = 3343638121) message] The system which generated this result transmitted reference range : <=0.034 ng/mL. The reference range was not used to interpr et this result as normal/abnormal . ALTAGRACIA (test code = Equal or Less than ALTAGRACIA) 0.034 ng/ml---Normal ?Note: Cardiac troponin begins to rise 3-4 hours after the onset of ischemia. Repeat in 4-6 hours if the sample was drawn within 3-4 hours of the onset of the symptom and found normal. Between 0.035 and 0.120 ng/mL--- Borderline. Questionable myocardial injury or necrosis ? ?Note: Serial measurement may be necessary to confirm or exclude the diagnosis of myocardial injury or necrosis; Clinical correlation (symptoms, EKGs, imaging studies, and others) required; Repeat in 4-6 hours if clinically indicated. ? Equal or Higher than 0.121 ng/mL---Abnormal. Myocardial Injury or Necrosis Likely ? Biotin has been reported to cause a negative bias, interpret results relative to patient's use of biotin. ? Lab Interpretation Normal (test code = 47214-9) [facility] CenterLIP[facility] PANEL (66298)(TOTAL CHOLESTEROL, TRIGLYCERIDES, HDL)2021-01-15 02:54:40 Test Item Value Reference Range Interpretation Comments CHOL (test code = 258 mg/dL 120-200 H 0563158178) HDL (test code = 47 mg/dL >40 1431919517) HDLC RATIO (test code = See_Comment H [Au tomated message] 2993509968) The system [employer] generated this result transmit melissa reference range : <=5.0. The refe rence range was not u sed to interpret th is result as normal/abnormal . TRIG (test code = 309 mg/dL 30-170 H 1122241512) LDL CHOL (test code = 149 mg/dL See_Comment [Auto mated message] 01156-7) The system [employer] generated this result transmit melissa reference range : <=160. The refe rence range was not u sed to interpret th is result as normal/abnormal . VLDL (test code = 62 mg/dL 5-60 H 3509396820) Lab Interpretation (test Abnormal code = 87135-0) [facility] Center[facility]CREEN PANEL 2 [id number] 01:36:41 Test Item Value Reference Range Interpretation Comments AMPHET (test code = Negative Negative 7319418831) KASSI U (test code = Negative Negative 8979678398) BENZO U (test code = Negative Negative 7286813288) Cocaine Metabolite (test Negative Negative code = 0673003171) METHADONE (test code = Negative Negative 4084478979) OPIATES (test code = Negative Negative 7281381309) PCP (test code = Negative Negative 9044892671) THC (test code = Negative Negative 2984538383) ALTAGRACIA (test code = ALTAGRACIA) Urine Drug Cutoff Ranges Cocaine: ? 150 ng/mLBenzodiazepines: ? ? 200 ng/mLMethadone: ? 300 ng/mLAmphetamine: ? 1,000 ng/mLOpiates: ? 300 ng/mLCannabinoids: ?50 ng/mLPhencyclidine: ? ? ? 25 ng/mLBarbiturates: ?200 ng/mL The results are to be used only for medical (i.e., treatment) purposes. Unconfirmed screening results must not be used for non-medical purposes (e.g., employment testing, legal testing). Lab Interpretation (test Normal code = 39014-4) [facility] Center[facility]OVID[facility] (ID NOW RAPID TESTING)2021-01-15 00:22:13 Test Item Value Reference Range Interpretation Comments SARS-CoV-2 Rapid ID NOW Not Detected Not Detected (test code = 68975-7) ALTAGRACIA (test code = ALTAGRACIA) ID NOW COVID-19 Assay is an isothermal nucleic acid amplification test intended for the qualitative detection of nucleic acid from SARS-CoV-2 viral RNA in nasopharyngeal (ALUMINUM HYDROXIDE PROCESS OPERATOR) specimens. It is used under Emergency Use Authorization (EUA) by FDA. The limit of detection (LOD) of the assay is 125 Genome Equivalents/mL. A positive result is indicative of the presence of SARS-CoV-2 RNA. ?Clinical correlation with patient history and other diagnostic [...] for repeat patient testing if clinically indicated. Lab Interpretation Normal (test code = 95550-9) [facility])2021-01-14 23:59:46 Test Item Value Reference Range Interpretation Comments POCT GLU (test code = 250 mg/dL 70-110 H Notifi ed Provider [id number]) Lab Interpretation (test Abnormal code = 17860-4) [facility] [id number] 22:56:14 Test Item Value Reference Range Interpretation Comments TROPONIN I (test <0.012 See_Comment [Automated code = 1938548988) message] The system which generated this result transmitted reference range : <=0.034 ng/mL. The reference range was not used to interpr et this result as normal/abnormal . ALTAGRACIA (test code = Equal or Less than ALTAGRACIA) 0.034 ng/ml---Normal ?Note: Cardiac troponin begins to rise 3-4 hours after the onset of ischemia. Repeat in 4-6 hours if the sample was drawn within 3-4 hours of the onset of the symptom and found normal. Between 0.035 and 0.120 ng/mL--- Borderline. Questionable myocardial injury or necrosis ? ?Note: Serial measurement may be necessary to confirm or exclude the diagnosis of myocardial injury or necrosis; Clinical correlation (symptoms, EKGs, imaging studies, and others) required; Repeat in 4-6 hours if clinically indicated. ? Equal or Higher than 0.121 ng/mL---Abnormal. Myocardial Injury or Necrosis Likely ? Biotin has been reported to cause a negative bias, interpret results relative to patient's use of biotin. ? Lab Interpretation Normal (test code = 91961-6) [facility]. METABOLIC PANEL (13063)2021-01-14 22:51:32 Test Item Value Reference Range Interpretation Comments NA (test code = 134 mmol/L 135-145 L 0059705079) K (test code = 3.8 mmol/L 3.5-5.0 3076649421) CL (test code = 99 mmol/L 98-108 4987232770) CO2 TOTAL (test code = 22 mmol/L 23-31 L 9350000285) AGAP (test code = 2-16 4211631832) BUN (test code = 23 mg/dL 7-23 7562066093) GLUCOSE (test code = 344 mg/dL 70-110 H 2580347217) CREATININE (test code = 0.83 mg/dL 0.60-1.25 5023463491) TOTAL BILI (test code = 0.5 mg/dL 0.1-1.8 0904940207) CALCIUM (test code = 9.5 mg/dL 8.6-10.6 8677154257) T PROTEIN (test code = 7.1 g/dL 6.3-8.2 2206227814) ALBUMIN (test code = 4.5 g/dL 3.5-5.0 7785322273) ALK PHOS (test code = 79 U/L 34-122 5210682474) ALTv (test code = 30 U/L 5-50 1742-6) AST(SGOT) (test code = 28 U/L 13-40 9192616756) eGFR (test code = mL/min/1.73m2 2183992300) ALTAGRACIA (test code = ALTAGRACIA) Association of Glomerular Filtration Rate (GFR) and Staging of Kidney Disease* + --+ --+ ------+| GFR (mL/min/1.73 m2) ?| With Kidney Damage ?| ?Without Kidney Damage+ --------+ --------+ +| ?>90 ?| ?Stage one ?| ? Normal ?+ ---+ ---+ -------+| ?60-89 ?| ?Stage two ?| ? Decreased GFR ? + --+ --+ ------+| ?30-59 ?| ?Stage three ?| ? Stage three ? + --+ --+ ------+| ?15-29 ?| ?Stage four ? | ? Stage four ?+ ---+ ---+ -------+| ?<15 (or dialysis) ? ?| ?Stage five ? | ? Stage five ?+ ---+ ---+ -------+ *Each stage assumes the associated GFR level has been in effect for at least three months. ?Stages 1 to 5, with or without kidney disease, indicate chronic kidney disease. Notes: Determination of stages one and two (with eGFR >59mL/min/1.73 m2) requires estimation of kidney damage for at least three months as defined by structural or functional abnormalities of the kidney, manifested by either:Pathological abnormalities or Markers of kidney damage (including abnormalities in the composition of the blood or urine or abnormalities in imaging tests). Lab Interpretation Abnormal (test code = 67564-3) [facility] Test Item Value Reference Range Interpretation Comments APTT Patient (test See_Comment [Automat ed code = 3173-2) message] The system which generated this result transmitted reference range : 23 - 38 Seconds . The reference range was not used to interpr et this result as normal/abnormal . ALTAGRACIA (test code = ALTAGRACIA) The [facility] patient population mean normal value for aPTT is 30 seconds. Lab Interpretation Normal (test code = 72932-7) [facility] CenterLIP[facility], [id number] 22:44:50 Test Item Value Reference Range Interpretation Comments LIPASE (test code = 9595220739) 99 U/L 0-220 Lab Interpretation (test code = Normal 26322-0) [facility] CenterPROTHROMBIN TIME / [id number] 22:43:29 Test Item Value Reference Range Interpretation Comments PROTIME PATIENT (test See_Comment [Auto mated message] code = 5964-2) The system wh ich generated this result transmitted ref erence range: 12.0 - 1 4.7 Seconds. The re ference range was not u sed to interpret this result as normal/abnor mal. INR (test code = 6301-6) Nor mal INR <1.1; Warfarin Therap eutic range 2.0 to 3. 0 or 2.5 to 3.5, dep ending upon the indica tions. Lab Interpretation (test Normal code = 39385-8) [facility] WITH [id number] 22:33:29 Test Item Value Reference Range Interpretation Comments WBC (test code = See_Comment [Automated 2590-2) message] The sy stem which generated this result transmitted reference range : 4.20 - 10.70 10*3/?L. The reference range was not used to interpret this result as normal/abnormal . RBC (test code = See_Comment [Automated 789-8) message] The sy stem which generated this result transmitted reference range : 4.26 - 5.52 10*6/?L. The reference range was not used to interpret this result as normal/abnormal . HGB (test code = 15.5 g/dL 12.2-16.4 718-7) HCT (test code = 45.1 % 38.4-49.3 4544-3) MCV (test code = 90.9 fL 81.7-95.6 787-2) MCH (test code = 31.3 pg 26.1-32.7 785-6) MCHC (test code = 34.4 g/dL 31.2-35.0 786-4) RDW-SD (test code = 39.3 fL 38.5-51.6 63370-1) RDW-CV (test code = 11.7 % 12.1-15.4 L 788-0) PLT (test code = See_Comment [Automated 777-3) message] The sy stem which generated this result transmitted reference range : 150 - 328 10*3/ ?L. The reference r cristin was not used to interpret this result as normal/abnormal . MPV (test code = 10.5 fL 9.8-13.0 26861-1) NRBC/100 WBC (test See_Comment [Automat ed code = 1862047343) message] The system which generated this result transmitted reference range : 0.0 - 10.0 /100 WBCs. The refer ence range was not u sed to interpret th is result as normal/abnormal . NRBC x10^3 (test code <0.01 See_Comment [Auto mated = 3099374055) message] The s ystem which generated this result transmitted reference range : 10*3/?L. The reference range was not used to interpret this result as normal/abnormal . GRAN MAT (NEUT) % 70.2 % (test code = 770-8) IMM GRAN % (test code 0.40 % = 3390976261) LYMPH % (test code = 20.5 % 736-9) MONO % (test code = 8.0 % 5905-5) EOS % (test code = 0.5 % 713-8) BASO % (test code = 0.4 % 706-2) GRAN MAT x10^3(ANC) 7.28 10*3/uL 1.99-6.95 H (test code = 0998021964) IMM GRAN x10^3 (test 0.04 10*3/uL 0.00-0.06 code = 7604738107) LYMPH x10^3 (test code 2.13 10*3/uL 1.09-3.23 = 731-0) MONO x10^3 (test code 0.83 10*3/uL 0.36-1.02 = 742-7) EOS x10^3 (test code = 0.05 10*3/uL 0.06-0.53 L 711-2) BASO x10^3 (test code 0.04 10*3/uL 0.01-0.09 = 704-7) Lab Interpretation Abnormal (test code = 44584-3) [facility]2020-09-09 14:14:00 Test Item Value Reference Range Interpretation Comments POCT GLU (test code = 6811520582) 132 mg/dL 70-110 H Lab Interpretation (test code = Abnormal 96581-2) [facility] MET[facility]OLIC PANEL (NA, K, CL, CO2, GLUCOSE, BUN, CREATININE, CA)2020-09-09 09:50:00 Test Item Value Reference Range Interpretation Comments NA (test code = 132 mmol/L 135-145 L 3977855754) K (test code = 4.3 mmol/L 3.5-5 3672119314) CL (test code = 103 mmol/L 98-108 4622287878) CO2 TOTAL (test code = 24 mmol/L 23-31 2507789592) AGAP (test code = 2-16 3508844694) BUN (test code = 22 mg/dL 7-23 9420444915) GLUCOSE (test code = 153 mg/dL 70-110 H 2884890184) CREATININE (test code = 0.83 mg/dL 0.6-1.25 6928606487) CALCIUM (test code = 8.8 mg/dL 8.6-10.6 1893525989) eGFR Calculation mL/min/1.73m2 (Non-) (test code = 6867412573) eGFR Calculation mL/min/1.73m2 () (test code = 3483441644) ALTAGRACIA (test code = ALTAGRACIA) Association of Glomerular Filtration Rate (GFR) and Staging of Kidney Disease* + --+ --+ ------+| GFR (mL/min/1.73 m2) ?| With Kidney Damage ?| ?Without Kidney Damage+ --------+ --------+ +| ?>90 ?| ?Stage one ?| ? Normal ?+ ---+ ---+ -------+| ?60-89 ?| ?Stage two ?| ? Decreased GFR ? + --+ --+ ------+| ?30-59 ?| ?Stage three ?| ? Stage three ? + --+ --+ ------+| ?15-29 ?| ?Stage four ? | ? Stage four ?+ ---+ ---+ -------+| ?<15 (or dialysis) ? ?| ?Stage five ? | ? Stage five ?+ ---+ ---+ -------+ *Each stage assumes the associated GFR level has been in effect for at least three months. ?Stages 1 to 5, with or without kidney disease, indicate chronic kidney disease. Notes: Determination of stages one and two (with eGFR >59mL/min/1.73 m2) requires estimation of kidney damage for at least three months as defined by structural or functional abnormalities of the kidney, manifested by either:Pathological abnormalities or Markers of kidney damage (including abnormalities in the composition of the blood or urine or abnormalities in imaging tests). Lab Interpretation Abnormal (test code = 04953-4) [facility]MAG[facility]UM2021-[facility] 09:50:00 Test Item Value Reference Range Interpretation Comments MAGNESIUM (test code = 3013371325) 2.2 mg/dL 1.7-2.4 Lab Interpretation (test code = Normal 38980-3) [facility] GLUCOSE (AUTOMATED)2020-09-09 03:15:00 Test Item Value Reference Range Interpretation Comments POCT GLU (test code = 4105608236) 173 mg/dL 70-110 H Lab Interpretation (test code = Abnormal 11286-9) [facility] GLUCOSE (AUTOMATED)2020-09-08 22:52:00 Test Item Value Reference Range Interpretation Comments POCT GLU (test code = 9290527211) 169 mg/dL 70-110 H Lab Interpretation (test code = Abnormal 69322-8) [facility] GLUCOSE (AUTOMATED)2020-09-08 18:34:00 Test Item Value Reference Range Interpretation Comments POCT GLU (test code = 266 mg/dL 70-110 H Notifi ed Provider 1261275709) Lab Interpretation (test Abnormal code = 53774-4) [facility] MET[facility]OL[facility] (NA, K, CL, CO2, GLUCOSE, BUN, CREATININE, CA)2020-09-08 11:59:00 Test Item Value Reference Range Interpretation Comments NA (test code = 135 mmol/L 135-145 2394357817) K (test code = 4.3 mmol/L 3.5-5 9009760647) CL (test code = 104 mmol/L 98-108 8487312630) CO2 TOTAL (test code = 24 mmol/L 23-31 3037672510) AGAP (test code = 2-16 1473140120) BUN (test code = 21 mg/dL 7-23 9021423974) GLUCOSE (test code = 145 mg/dL 70-110 H 8131823199) CREATININE (test code = 0.82 mg/dL 0.6-1.25 7658156192) CALCIUM (test code = 8.6 mg/dL 8.6-10.6 7017836830) eGFR Calculation mL/min/1.73m2 (Non-) (test code = 0347743960) eGFR Calculation mL/min/1.73m2 () (test code = 2696559476) ALTAGRACIA (test code = ALTAGRACIA) Association of Glomerular Filtration Rate (GFR) and Staging of Kidney Disease* + --+ --+ ------+| GFR (mL/min/1.73 m2) ?| With Kidney Damage ?| ?Without Kidney Damage+ --------+ --------+ +| ?>90 ?| ?Stage one ?| ? Normal ?+ ---+ ---+ -------+| ?60-89 ?| ?Stage two ?| ? Decreased GFR ? + --+ --+ ------+| ?30-59 ?| ?Stage three ?| ? Stage three ? + --+ --+ ------+| ?15-29 ?| ?Stage four ? | ? Stage four ?+ ---+ ---+ -------+| ?<15 (or dialysis) ? ?| ?Stage five ? | ? Stage five ?+ ---+ ---+ -------+ *Each stage assumes the associated GFR level has been in effect for at least three months. ?Stages 1 to 5, with or without kidney disease, indicate chronic kidney disease. Notes: Determination of stages one and two (with eGFR >59mL/min/1.73 m2) requires estimation of kidney damage for at least three months as defined by structural or functional abnormalities of the kidney, manifested by either:Pathological abnormalities or Markers of kidney damage (including abnormalities in the composition of the blood or urine or abnormalities in imaging tests). Lab Interpretation Abnormal (test code = 45682-6) [facility] 11:59:00 Test Item Value Reference Range Interpretation Comments MAGNESIUM (test code = 7554804056) 2.3 mg/dL 1.7-2.4 Lab Interpretation (test code = Normal 10217-7) [facility]2020-09-08 00:06:00 Test Item Value Reference Range Interpretation Comments POCT GLU (test code = 5392630955) 126 mg/dL 70-110 H Lab Interpretation (test code = Abnormal 52050-2) [facility] CenterLAB ONLY COVID [id number] 22:45:00COVID DMT InterpretationInterpretation/Recommendations: Molecular NAAT Tests for Active Infection with the SARS-CoV-2 Virus: This patient has a history of testing negative on multiple occasions for hbsAYEO-YgY-5 virus that causes COVID-19 illness, with no prior history of a positive result. The current test results are also negative. This most likely indicates that the patient [...] have persistent or worsening symptoms concerning for COVID-19 illness, a repeat NAAT test (PCR, Rapid ID Now, etc.) should be performed, at which time the SARS-CoV-2 virus - if present - may have reached a detectable viral load (usually peaking by the end of the first week of symptoms). Tests for IgM and/or IgG Antibodies to SARS-CoV-2 Virus: Testing for IgM and IgG antibodies 1-3 weeks after illness onset will indicate whether the patient has produced antibodies to the virus. At this time, it is not known if the production of antibodies - specifically IgG antibodies - indicates whether the patient is immune to future infections with the SARS-CoV-2 virus. Interpretation Result Comments:These interpretation comments are based upon all COVID-19 testing the patient has had at [facility], including molecular NAAT testing (more commonly known as PCR testing and Rapid ID Now testing) and antibody testing. It does not take into account any testing that a patient has had outside of the [facility] medical record. [facility]ENTERLABORATORY SERVICESCOVID HkhxzqbGODV-JqL-2 Rapid ID NOW (no units) ? ? Date ? Value ? 09/06/2020 ? Not Detected ? ? ? 09/01/2020 ? Not Detected ?? ? 06/02/2020 ? Not Detected ? ? ? 05/23/2020 ? Not Detected ? [facility]2020-09-07 22:11:00 Test Item Value Reference Range Interpretation Comments POCT GLU (test code = 9726425817) 128 mg/dL 70-110 H Lab Interpretation (test code = Abnormal 49410-6) [facility] GLUCOSE (AUTOMATED)2020-09-07 18:25:00 Test Item Value Reference Range Interpretation Comments POCT GLU (test code = 6829973839) 175 mg/dL 70-110 H Lab Interpretation (test code = Abnormal 16003-3) [facility] ACT LOW [id number] 17:12:00 Test Item Value Reference Range Interpretation Comments ACTLR (test code = See_Comment H [Automat ed message] 7524522019) The system [employer] generated this result transmitted ref erence range: 89 - 169 Seconds. The reference range was not used to int erpret this result as normal/abnormal . Lab Interpretation (test Abnormal code = 28061-2) [facility] ACT LOW [id number] 16:56:00 Test Item Value Reference Range Interpretation Comments ACTLR (test code = See_Comment H [Automat ed message] 8153850872) The system [employer] generated this result transmitted ref erence range: 89 - 169 Seconds. The reference range was not used to int erpret this result as normal/abnormal . Lab Interpretation (test Abnormal code = 13731-7) [facility] ACT LOW [id number] 16:51:00 Test Item Value Reference Range Interpretation Comments ACTLR (test code = See_Comment [Automat ed message] 4024559516) The system [employer] generated this result transmitted ref erence range: 89 - 169 Seconds. The re ference range was not u sed to interpret this result as normal/abnor mal. Lab Interpretation (test Normal code = 10617-4) [facility] CenterLOW-DENSITY LIPOPROTEIN, [id number] 10:16:00 Test Item Value Reference Range Interpretation Comments dLDL Chol (test code = 37716-6) 39 mg/dL <130 Lab Interpretation (test code = Normal 99237-7) [facility] CenterLIPID PANEL (94225)(TOTAL CHOLESTEROL, TRIGLYCERIDES, HDL)2020-09-07 09:56:00 Test Item Value Reference Range Interpretation Comments CHOL (test code = 114 mg/dL 120-200 L 5300953678) HDL (test code = 33 mg/dL >40 L 8702920868) HDLC RATIO (test code = See_Comment [Au tomated message] 1141192445) The system [employer] generated this result transmitted ref erence range: <=5.0. T he reference range was not used to int erpret this result as normal/abnormal . TRIG (test code = 478 mg/dL 30-170 H 6275998540) LDL CHOL (test code = Unable to calculate 30066-4) LDL due to elev ated triglyceride le ankur greater than 40 0 mg/dL. VLDL (test code = 96 mg/dL 5-60 H 7508797389) Lab Interpretation Abnormal (test code = 10035-4) [facility] MET[facility]OLIC [facility] (NA, K, CL, CO2, GLUCOSE, BUN, CREATININE, CA)2020-09-07 09:55:00 Test Item Value Reference Range Interpretation Comments NA (test code = 134 mmol/L 135-145 L 9098041140) K (test code = 4.0 mmol/L 3.5-5 9703496540) CL (test code = 103 mmol/L 98-108 8312182616) CO2 TOTAL (test code = 25 mmol/L 23-31 0522619160) AGAP (test code = 2-16 0757714679) BUN (test code = 25 mg/dL 7-23 H 2050767805) GLUCOSE (test code = 187 mg/dL 70-110 H 4485636564) CREATININE (test code = 0.79 mg/dL 0.6-1.25 0476838107) CALCIUM (test code = 8.7 mg/dL 8.6-10.6 2456021328) eGFR Calculation mL/min/1.73m2 (Non-) (test code = 2771324593) eGFR Calculation mL/min/1.73m2 () (test code = 9323785807) ALTAGRACIA (test code = ALTAGRACIA) Association of Glomerular Filtration Rate (GFR) and Staging of Kidney Disease* + --+ --+ ------+| GFR (mL/min/1.73 m2) ?| With Kidney Damage ?| ?Without Kidney Damage+ --------+ --------+ +| ?>90 ?| ?Stage one ?| ? Normal ?+ ---+ ---+ -------+| ?60-89 ?| ?Stage two ?| ? Decreased GFR ? + --+ --+ ------+| ?30-59 ?| ?Stage three ?| ? Stage three ? + --+ --+ ------+| ?15-29 ?| ?Stage four ? | ? Stage four ?+ ---+ ---+ -------+| ?<15 (or dialysis) ? ?| ?Stage five ? | ? Stage five ?+ ---+ ---+ -------+ *Each stage assumes the associated GFR level has been in effect for at least three months. ?Stages 1 to 5, with or without kidney disease, indicate chronic kidney disease. Notes: Determination of stages one and two (with eGFR >59mL/min/1.73 m2) requires estimation of kidney damage for at least three months as defined by structural or functional abnormalities of the kidney, manifested by either:Pathological abnormalities or Markers of kidney damage (including abnormalities in the composition of the blood or urine or abnormalities in imaging tests). Lab Interpretation Abnormal (test code = 21159-0) [facility]MAG[facility]UM20[facility] 09:55:00 Test Item Value Reference Range Interpretation Comments MAGNESIUM (test code = 4272995388) 2.1 mg/dL 1.7-2.4 Lab Interpretation (test code = Normal 67760-5) [facility] CenterACTIV[facility] PARTIAL THRMPLAS [id number] 09:29:00 Test Item Value Reference Range Interpretation Comments APTT Patient (test code See_Comment H [Au tomated message] = 3173-2) The system [employer] generated this result transmitted ref erence range: 26 - 36 Seconds. The reference range was not used to int erpret this result as normal/abnormal . Lab Interpretation (test Abnormal code = 37125-8) [facility] CenterTROPONIN [id number] 05:42:00 Test Item Value Reference Range Interpretation Comments TROPONIN I (test 0.007 ng/mL See_Comment [Automated code = 3909403154) message] The system which generated this result transmitted reference range : <=0.034. The reference range was not used to interpret this result as normal/abnormal . ALTAGRACIA (test code = Equal or Less than ALTAGRACIA) 0.034 ng/ml---Normal ?Note: Cardiac troponin begins to rise 3-4 hours after the onset of ischemia. Repeat in 4-6 hours if the sample was drawn within 3-4 hours of the onset of the symptom and found normal. Between 0.035 and 0.120 ng/mL--- Borderline. Questionable myocardial injury or necrosis ? ?Note: Serial measurement may be necessary to confirm or exclude the diagnosis of myocardial injury or necrosis; Clinical correlation (symptoms, EKGs, imaging studies, and others) required; Repeat in 4-6 hours if clinically indicated. ? Equal or Higher than 0.121 ng/mL---Abnormal. Myocardial Injury or Necrosis Likely ? Biotin has been reported to cause a negative bias, interpret results relative to patient's use of biotin. ? Lab Interpretation Normal (test code = 33747-4) [facility]2020-09-07 04:38:00 Test Item Value Reference Range Interpretation Comments POCT GLU (test code = 1128573438) 240 mg/dL 70-110 H Lab Interpretation (test code = Abnormal 62032-8) [facility] CenterGALV/CLC ONLY - URINE DRUG (IMMUNOASSAY) - COMPREHENSIVE DRUG [id number] 03:59:00 Test Item Value Reference Range Interpretation Comments AMPHET (test code = Negative Negative 4313294338) KASSI U (test code = Negative Negative 3560234748) BENZO U (test code = Negative Negative 7795206016) Cocaine Metabolite (test Negative Negative code = 4478971812) METHADONE (test code = Negative Negative 0530487922) OPIATES (test code = Presumptive Positive Negative A 3580943196) PCP (test code = Negative Negative 5317262805) THC (test code = Negative Negative 6585318639) ALTAGRACIA (test code = ALTAGRACIA) Urine Drug Cutoff Ranges Cocaine: ? 150 ng/mLBenzodiazepines: ? ? 200 ng/mLMethadone: ? 300 ng/mLAmphetamine: ? 1,000 ng/mLOpiates: ? 300 ng/mLCannabinoids: ?50 ng/mLPhencyclidine: ? ? ? 25 ng/mLBarbiturates: ?200 ng/mL The results are to be used only for medical (i.e., treatment) purposes. Unconfirmed screening results must not be used for non-medical purposes (e.g., employment testing, legal testing). Lab Interpretation (test Abnormal code = 16085-9) [facility] CenterACT[facility] PART[facility] THRMPLAS [id number] 01:52:00 Test Item Value Reference Range Interpretation Comments APTT Patient (test code See_Comment H [Au tomated message] = 3173-2) The system [employer] generated this result transmitted ref erence range: 26 - 36 Seconds. The reference range was not used to int erpret this result as normal/abnormal . Lab Interpretation (test Abnormal code = 31604-9) [facility]PO[facility]2020-09-06 22:33:00 Test Item Value Reference Range Interpretation Comments POCT GLU (test code = 5133558944) 140 mg/dL 70-110 H Lab Interpretation (test code = Abnormal 52561-5) [facility] CenterTROPONIN [id number] 22:21:00 Test Item Value Reference Range Interpretation Comments TROPONIN I (test 0.004 ng/mL See_Comment [Automated code = 6418188406) message] The system which generated this result transmitted reference range : <=0.034. The reference range was not used to interpret this result as normal/abnormal . ALTAGRACIA (test code = Equal or Less than ALTAGRACIA) 0.034 ng/ml---Normal ?Note: Cardiac troponin begins to rise 3-4 hours after the onset of ischemia. Repeat in 4-6 hours if the sample was drawn within 3-4 hours of the onset of the symptom and found normal. Between 0.035 and 0.120 ng/mL--- Borderline. Questionable myocardial injury or necrosis ? ?Note: Serial measurement may be necessary to confirm or exclude the diagnosis of myocardial injury or necrosis; Clinical correlation (symptoms, EKGs, imaging studies, and others) required; Repeat in 4-6 hours if clinically indicated. ? Equal or Higher than 0.121 ng/mL---Abnormal. Myocardial Injury or Necrosis Likely ? Biotin has been reported to cause a negative bias, interpret results relative to patient's use of biotin. ? Lab Interpretation Normal (test code = 89990-2) [facility] CenterGLYCOSYLATED HEMOGLOBIN (A1C)2020-09-06 19:42:00 Test Item Value Reference Range Interpretation Comments HGB A1C (test code = 8.8 % 4-6 H 4548-4) ALTAGRACIA (test code = ALTAGRACIA) %A1C (NGSP) Interpretation (ADA)4.8-5.6 ? ? Normal or (Non-Diabetic Range)5.7-6.4 ? ? Increased Risk (Pre-Diabetic)>6.5 ?Diabetes Indicated Lab Interpretation Abnormal (test code = 38265-6) [facility]MAG[facility]20[facility] 19:34:00 Test Item Value Reference Range Interpretation Comments MAGNESIUM (test code = 5309585705) 1.9 mg/dL 1.7-2.4 Lab Interpretation (test code = Normal 78953-5) [facility] CenterCOVID-19 (ID NOW RAPID TESTING)2020-09-06 16:56:00 Test Item Value Reference Range Interpretation Comments SARS-CoV-2 Rapid ID NOW Not Detected Not Detected (test code = 61962-4) ALTAGRACIA (test code = ALTAGRACIA) ID NOW COVID-19 Assay is an isothermal nucleic acid amplification test intended for the qualitative detection of nucleic acid from SARS-CoV-2 viral RNA in nasopharyngeal (ALUMINUM HYDROXIDE PROCESS OPERATOR) specimens. It is used under Emergency Use Authorization (EUA) by FDA. The limit of detection (LOD) of the assay is 125 Genome Equivalents/mL. A positive result is indicative of the presence of SARS-CoV-2 RNA. ?Clinical correlation with patient history and other diagnostic [...] for repeat patient testing if clinically indicated. Lab Interpretation Normal (test code = 18502-2) [facility] [id number] 16:49:00 Test Item Value Reference Range Interpretation Comments TROPONIN I (test <0.012 See_Comment [Automated code = 3160654324) message] The system which generated this result transmitted reference range : <=0.034 ng/mL. The reference range was not used to interpr et this result as normal/abnormal . ALTAGRACIA (test code = Equal or Less than ALTAGRACIA) 0.034 ng/ml---Normal ?Note: Cardiac troponin begins to rise 3-4 hours after the onset of ischemia. Repeat in 4-6 hours if the sample was drawn within 3-4 hours of the onset of the symptom and found normal. Between 0.035 and 0.120 ng/mL--- Borderline. Questionable myocardial injury or necrosis ? ?Note: Serial measurement may be necessary to confirm or exclude the diagnosis of myocardial injury or necrosis; Clinical correlation (symptoms, EKGs, imaging studies, and others) required; Repeat in 4-6 hours if clinically indicated. ? Equal or Higher than 0.121 ng/mL---Abnormal. Myocardial Injury or Necrosis Likely ? Biotin has been reported to cause a negative bias, interpret results relative to patient's use of biotin. ? Lab Interpretation Normal (test code = 33606-8) [facility] [id number] 16:45:00 Test Item Value Reference Range Interpretation Comments NT-proBNP (test code 354 pg/mL See_Comment H [Autom ated = 0378900859) message] The system which generated this result transmitted reference range : <=125. The reference range was not used to interpret this result as normal/abnormal . ALTAGRACIA (test code = ALTAGRACIA) Biotin has been reported to cause a negative bias, interpret results relative to patient's use of biotin. Lab Interpretation Abnormal (test code = 94689-7) [facility]. METABOLIC PANEL (70424)2020-09-06 16:42:00 Test Item Value Reference Range Interpretation Comments NA (test code = 134 mmol/L 135-145 L 3982322850) K (test code = 4.4 mmol/L 3.5-5 7771542615) CL (test code = 99 mmol/L 98-108 3097731588) CO2 TOTAL (test code = 29 mmol/L 23-31 0366047203) AGAP (test code = 2-16 8763530425) BUN (test code = 17 mg/dL 7-23 9820972324) GLUCOSE (test code = 232 mg/dL 70-110 H 7836613102) CREATININE (test code = 0.79 mg/dL 0.6-1.25 4389060659) TOTAL BILI (test code = 0.8 mg/dL 0.1-1.1 9821000775) CALCIUM (test code = 9.0 mg/dL 8.6-10.6 3222725197) T PROTEIN (test code = 7.1 g/dL 6.3-8.2 0689546635) ALBUMIN (test code = 4.3 g/dL 3.5-5 4507359613) ALK PHOS (test code = 66 U/L 34-122 5882043117) ALTv (test code = 38 U/L 5-50 1742-6) AST(SGOT) (test code = 29 U/L 13-40 0784344092) eGFR Calculation mL/min/1.73m2 (Non-) (test code = 3315430629) eGFR Calculation mL/min/1.73m2 () (test code = 1467080363) ALTAGRACIA (test code = ALTAGRACIA) Association of Glomerular Filtration Rate (GFR) and Staging of Kidney Disease* + --+ --+ ------+| GFR (mL/min/1.73 m2) ?| With Kidney Damage ?| ?Without Kidney Damage+ --------+ --------+ +| ?>90 ?| ?Stage one ?| ? Normal ?+ ---+ ---+ -------+| ?60-89 ?| ?Stage two ?| ? Decreased GFR ? + --+ --+ ------+| ?30-59 ?| ?Stage three ?| ? Stage three ? + --+ --+ ------+| ?15-29 ?| ?Stage four ? | ? Stage four ?+ ---+ ---+ -------+| ?<15 (or dialysis) ? ?| ?Stage five ? | ? Stage five ?+ ---+ ---+ -------+ *Each stage assumes the associated GFR level has been in effect for at least three months. ?Stages 1 to 5, with or without kidney disease, indicate chronic kidney disease. Notes: Determination of stages one and two (with eGFR >59mL/min/1.73 m2) requires estimation of kidney damage for at least three months as defined by structural or functional abnormalities of the kidney, manifested by either:Pathological abnormalities or Markers of kidney damage (including abnormalities in the composition of the blood or urine or abnormalities in imaging tests). Lab Interpretation Abnormal (test code = 61279-5) [facility] 1 [id number] 16:41:34HISTORY: Chest pain. TECHNIQUE: Portable AP erect view of the chest is obtained. Comparison madewith09/01/2020 study. FINDINGS: No acute pneumonia. No pneumothorax or pleural effusion orpulmonary congestion detected. Cardiac size is within normal limits. CONCLUSIONS: No signs of acute cardiopulmonary disease.[facility], Radiant Results Inft User - 09/06/2020 10:42 AM CSTHISTORY: Chest pain.TECHNIQUE: Portable AP erect view of the chest is obtained. Comparison madewith 09/01/2020 study.FINDINGS: No acute pneumonia. No pneumothorax or pleural effusion orpulmonary congestion detected. Cardiac size is within normal limits. CONCLUSIONS: No signs of acute cardiopulmonary disease.[facility] CenteraPTT2021-01-13 16:39:00 Test Item Value Reference Range Interpretation Comments APTT Patient (test See_Comment [Automat ed code = 3173-2) message] The system which generated this result transmitted reference range : 23 - 38 Seconds . The reference range was not used to interpr et this result as normal/abnormal . ALTAGRACIA (test code = ALTAGRACIA) The [facility] patient population mean normal value for aPTT is 30 seconds. Lab Interpretation Normal (test code = 66753-4) [facility] CenterPROTHROMBIN TIME / [id number] 16:37:00 Test Item Value Reference Range Interpretation Comments PROTIME PATIENT (test See_Comment [Auto mated message] code = 5964-2) The system wh ich generated this result transmitted ref erence range: 12.0 - 1 4.7 Seconds. The re ference range was not u sed to interpret this result as normal/abnor mal. INR (test code = 6301-6) Nor mal INR <1.1; Warfarin Therap eutic range 2.0 to 3. 0 or 2.5 to 3.5, dep ending upon the indica tions. Lab Interpretation (test Normal code = 43353-5) [facility] CenterLIPASE, [id number] 16:36:00 Test Item Value Reference Range Interpretation Comments LIPASE (test code = 4569042218) 88 U/L 0-220 Lab Interpretation (test code = Normal 65177-7) [facility] CenterCB WITH [id number] 16:25:00 Test Item Value Reference Range Interpretation Comments WBC (test code = See_Comment [Automated 3890-2) message] The sy stem which generated this result transmitted reference range : 4.20 - 10.70 10*3/?L. The reference range was not used to interpret this result as normal/abnormal . RBC (test code = See_Comment [Automated 826-8) message] The sy stem which generated this result transmitted reference range : 4.26 - 5.52 10*6/?L. The reference range was not used to interpret this result as normal/abnormal . HGB (test code = 14.7 g/dL 12.2-16.4 718-7) HCT (test code = 44.0 % 38.4-49.3 4544-3) MCV (test code = 92.4 fL 81.7-95.6 787-2) MCH (test code = 30.9 pg 26.1-32.7 785-6) MCHC (test code = 33.4 g/dL 31.2-35 786-4) RDW-SD (test code = 40.6 fL 38.5-51.6 74671-2) RDW-CV (test code = 11.9 % 12.1-15.4 L 788-0) PLT (test code = See_Comment [Automated 777-3) message] The sy stem which generated this result transmitted reference range : 150 - 328 10*3/ ?L. The reference r cristin was not used to interpret this result as normal/abnormal . MPV (test code = 10.5 fL 9.8-13 84961-5) NRBC/100 WBC (test See_Comment [Automat ed code = 9383099791) message] The system which generated this result transmitted reference range : 0.0 - 10.0 /100 WBCs. The refer ence range was not u sed to interpret th is result as normal/abnormal . NRBC x10^3 (test code <0.01 See_Comment [Auto mated = 2435933675) message] The s ystem which generated this result transmitted reference range : 10*3/?L. The reference range was not used to interpret this result as normal/abnormal . GRAN MAT (NEUT) % 57.1 % (test code = 770-8) IMM GRAN % (test code 0.60 % = 2239996086) LYMPH % (test code = 30.0 % 736-9) MONO % (test code = 10.1 % 5905-5) EOS % (test code = 1.9 % 713-8) BASO % (test code = 0.3 % 706-2) GRAN MAT x10^3(ANC) 5.13 10*3/uL 1.99-6.95 (test code = 3694535113) IMM GRAN x10^3 (test 0.05 10*3/uL 0-0.06 code = 9054411184) LYMPH x10^3 (test code 2.69 10*3/uL 1.09-3.23 = 731-0) MONO x10^3 (test code 0.91 10*3/uL 0.36-1.02 = 742-7) EOS x10^3 (test code = 0.17 10*3/uL 0.06-0.53 711-2) BASO x10^3 (test code 0.03 10*3/uL 0.01-0.09 = 704-7) Lab Interpretation Abnormal (test code = 86710-3) [facility] CenterLAB ONLY COVID [id number] 19:49:00COVID DMT InterpretationInterpretation/Recommendations: Molecular NAAT Tests for Active Infection with the SARS-CoV-2 Virus: This patient has tested negative on multiple occasions for the SARS-CoV-2 virus that causes COVID-19 illness. This most likely indicates that the patient does not have an active infection with the SARS-CoV-2 virus, especially if these tests coincide with the patient's current presentation. However, infection is not completely ruled out as the false negative rate for molecular NAAT testing using a nasopharyngeal sample can be up to 30%, mostly dependent on the timing of samplecollection in relation to illness onset and any [...] for IgM and/or IgG Antibodies to SARS-CoV-2 Virus: Testing for IgM and IgG antibodies 1-3 weeksafter illness onset will indicate whether the patient has produced antibodies to the virus. At this time, it is not known if the production of antibodies - specifically IgG antibodies - indicates whether the patient is immune to future infections with the SARS-CoV-2 virus. Interpretation Result Comments:These interpretation comments are based upon all COVID-19 testing the patient has had at [facility], including molecular NAAT testing (more commonly known as PCR testing and Rapid ID Now testing) and antibody testing. It does not take into account any testing that a patient has had outside of the [facility] medical record. [facility] LABORATORY SERVICESCOVID YpldumrAYQV-IwK-7 Rapid ID NOW (no units) ? ? Date ? Value ? 09/01/2020 ? Not Detected ? ? ? 06/02/2020 ? Not Detected ? ? ? 05/23/2020 ? Not Detected ? [facility]Un[facility] 2020-09-03 17:33:00 Test Item Value Reference Range Interpretation Comments POCT GLU (test code = 8366828541) 212 mg/dL 70-110 H Lab Interpretation (test code = Abnormal 75540-8) [facility] GLUCOSE (AUTOMATED)2020-09-03 13:50:00 Test Item Value Reference Range Interpretation Comments POCT GLU (test code = 6546196910) 221 mg/dL 70-110 H Lab Interpretation (test code = Abnormal 48044-4) [facility] CenterTROPONIN [id number] 11:40:00 Test Item Value Reference Range Interpretation Comments TROPONIN I (test <0.012 See_Comment [Automated code = 5942243087) message] The system which generated this result transmitted reference range : <=0.034 ng/mL. The reference range was not used to interpr et this result as normal/abnormal . ALTAGRACIA (test code = Equal or Less than ALTAGRACIA) 0.034 ng/ml---Normal ?Note: Cardiac troponin begins to rise 3-4 hours after the onset of ischemia. Repeat in 4-6 hours if the sample was drawn within 3-4 hours of the onset of the symptom and found normal. Between 0.035 and 0.120 ng/mL--- Borderline. Questionable myocardial injury or necrosis ? ?Note: Serial measurement may be necessary to confirm or exclude the diagnosis of myocardial injury or necrosis; Clinical correlation (symptoms, EKGs, imaging studies, and others) required; Repeat in 4-6 hours if clinically indicated. ? Equal or Higher than 0.121 ng/mL---Abnormal. Myocardial Injury or Necrosis Likely ? Biotin has been reported to cause a negative bias, interpret results relative to patient's use of biotin. ? Lab Interpretation Normal (test code = 74335-8) [facility] Metabolic Panel (NA, K, CL, CO2, GLUCOSE, BUN, CREATININE, CA)2020-09-03 11:29:00 Test Item Value Reference Range Interpretation Comments NA (test code = 135 mmol/L 135-145 8916940279) K (test code = 4.6 mmol/L 3.5-5 8263201032) CL (test code = 101 mmol/L 98-108 5048699846) CO2 TOTAL (test code = 27 mmol/L 23-31 4502455337) AGAP (test code = 2-16 9569061571) BUN (test code = 26 mg/dL 7-23 H 0220903670) GLUCOSE (test code = 185 mg/dL 70-110 H 6124864206) CREATININE (test code = 0.77 mg/dL 0.6-1.25 1145657378) CALCIUM (test code = 9.0 mg/dL 8.6-10.6 9577050235) eGFR Calculation mL/min/1.73m2 (Non-) (test code = 5092158969) eGFR Calculation mL/min/1.73m2 () (test code = 8765140343) ALTAGRACIA (test code = ALTAGRACIA) Association of Glomerular Filtration Rate (GFR) and Staging of Kidney Disease* + --+ --+ ------+| GFR (mL/min/1.73 m2) ?| With Kidney Damage ?| ?Without Kidney Damage+ --------+ --------+ +| ?>90 ?| ?Stage one ?| ? Normal ?+ ---+ ---+ -------+| ?60-89 ?| ?Stage two ?| ? Decreased GFR ? + --+ --+ ------+| ?30-59 ?| ?Stage three ?| ? Stage three ? + --+ --+ ------+| ?15-29 ?| ?Stage four ? | ? Stage four ?+ ---+ ---+ -------+| ?<15 (or dialysis) ? ?| ?Stage five ? | ? Stage five ?+ ---+ ---+ -------+ *Each stage assumes the associated GFR level has been in effect for at least three months. ?Stages 1 to 5, with or without kidney disease, indicate chronic kidney disease. Notes: Determination of stages one and two (with eGFR >59mL/min/1.73 m2) requires estimation of kidney damage for at least three months as defined by structural or functional abnormalities of the kidney, manifested by either:Pathological abnormalities or Markers of kidney damage (including abnormalities in the composition of the blood or urine or abnormalities in imaging tests). Lab Interpretation Abnormal (test code = 25519-1) [facility] with [id number] 11:18:00 Test Item Value Reference Range Interpretation Comments WBC (test code = See_Comment [Automated message] 4790-2) The system [employer] generated this result transmitted ref erence range: 4.20 - 1 0.70 10*3/?L. The re ference range was not u sed to interpret this result as normal/abnor mal. RBC (test code = See_Comment [Automated message] 532-8) The system [employer] generated this result transmitted ref erence range: 4.26 - 5 .52 10*6/?L. The re ference range was not u sed to interpret this result as normal/abnor mal. HGB (test code = 14.6 g/dL 12.2-16.4 718-7) HCT (test code = 43.0 % 38.4-49.3 4544-3) MCV (test code = 93.5 fL 81.7-95.6 787-2) MCH (test code = 31.7 pg 26.1-32.7 785-6) MCHC (test code = 34.0 g/dL 31.2-35 786-4) RDW-SD (test code 42.2 fL 38.5-51.6 = 81814-6) RDW-CV (test code 12.2 % 12.1-15.4 = 788-0) PLT (test code = See_Comment [Automated message] 317-3) The system [employer] generated this result transmitted ref erence range: 150 - 32 8 10*3/?L. The re ference range was not u sed to interpret this result as normal/abnor mal. MPV (test code = 10.4 fL 9.8-13 69239-6) NRBC/100 WBC (test See_Comment [Automat ed message] code = 5891611112) The syste m which generated this result transmitted ref erence range: 0.0 - 10 .0 /100 WBCs. The refer ence range was not u sed to interpret this result as normal/abnor mal. NRBC x10^3 (test <0.01 See_Comment [Automated message] code = 5712216970) The syste m which generated this result transmitted ref erence range: 10*3/?L. The reference range was not used to interpr et this result as normal/abnormal . GRAN MAT (NEUT) % 53.5 % (test code = 770-8) IMM GRAN % (test 0.30 % code = 4308928980) LYMPH % (test code 32.7 % = 736-9) MONO % (test code 11.0 % = 5905-5) EOS % (test code = 2.1 % 713-8) BASO % (test code 0.4 % = 706-2) GRAN MAT 3.73 10*3/uL 1.99-6.95 x10^3(ANC) (test code = 4883727854) IMM GRAN x10^3 <0.03 0-0.06 (test code = 7918998541) LYMPH x10^3 (test 2.28 10*3/uL 1.09-3.23 code = 731-0) MONO x10^3 (test 0.77 10*3/uL 0.36-1.02 code = 742-7) EOS x10^3 (test 0.15 10*3/uL 0.06-0.53 code = 711-2) BASO x10^3 (test 0.03 10*3/uL 0.01-0.09 code = 704-7) [facility] GLUCOSE (AUTOMATED)2020-09-03 02:12:00 Test Item Value Reference Range Interpretation Comments POCT GLU (test code = 2936125067) 209 mg/dL 70-110 H Lab Interpretation (test code = Abnormal 60207-9) [facility] GLUCOSE (AUTOMATED)2020-09-02 18:59:00 Test Item Value Reference Range Interpretation Comments POCT GLU (test code = 7173004223) 161 mg/dL 70-110 H Lab Interpretation (test code = Abnormal 66117-3) [facility] GLUCOSE (AUTOMATED)2020-09-02 14:00:00 Test Item Value Reference Range Interpretation Comments POCT GLU (test code = 8964362443) 167 mg/dL 70-110 H Lab Interpretation (test code = Abnormal 58355-3) [facility] [id number] 12:54:00 Test Item Value Reference Range Interpretation Comments TROPONIN I (test <0.012 See_Comment [Automated code = 6961985161) message] The system which generated this result transmitted reference range : <=0.034 ng/mL. The reference range was not used to interpr et this result as normal/abnormal . ALTAGRACIA (test code = Equal or Less than ALTAGRACIA) 0.034 ng/ml---Normal ?Note: Cardiac troponin begins to rise 3-4 hours after the onset of ischemia. Repeat in 4-6 hours if the sample was drawn within 3-4 hours of the onset of the symptom and found normal. Between 0.035 and 0.120 ng/mL--- Borderline. Questionable myocardial injury or necrosis ? ?Note: Serial measurement may be necessary to confirm or exclude the diagnosis of myocardial injury or necrosis; Clinical correlation (symptoms, EKGs, imaging studies, and others) required; Repeat in 4-6 hours if clinically indicated. ? Equal or Higher than 0.121 ng/mL---Abnormal. Myocardial Injury or Necrosis Likely ? Biotin has been reported to cause a negative bias, interpret results relative to patient's use of biotin. ? Lab Interpretation Normal (test code = 40253-4) [facility] [id number] 08:44:00 Test Item Value Reference Range Interpretation Comments TROPONIN I (test <0.012 See_Comment [Automated code = 0986572706) message] The system which generated this result transmitted reference range : <=0.034 ng/mL. The reference range was not used to interpr et this result as normal/abnormal . ALTAGRACIA (test code = Equal or Less than ALTAGRACIA) 0.034 ng/ml---Normal ?Note: Cardiac troponin begins to rise 3-4 hours after the onset of ischemia. Repeat in 4-6 hours if the sample was drawn within 3-4 hours of the onset of the symptom and found normal. Between 0.035 and 0.120 ng/mL--- Borderline. Questionable myocardial injury or necrosis ? ?Note: Serial measurement may be necessary to confirm or exclude the diagnosis of myocardial injury or necrosis; Clinical correlation (symptoms, EKGs, imaging studies, and others) required; Repeat in 4-6 hours if clinically indicated. ? Equal or Higher than 0.121 ng/mL---Abnormal. Myocardial Injury or Necrosis Likely ? Biotin has been reported to cause a negative bias, interpret results relative to patient's use of biotin. ? Lab Interpretation Normal (test code = 36892-2) [facility]2020-09-02 03:52:00 Test Item Value Reference Range Interpretation Comments POCT GLU (test code = 3793370992) 143 mg/dL 70-110 H Lab Interpretation (test code = Abnormal 52657-0) [facility] CHEST PULMONARY [id number] 02:20:39 No acute pulmonary embolism. Suboptimal enhancement of pulmonary arteries. Subtle bilateral tree-in-bud opacities may represent a mildinfectious/inflammatory etiology. Unchanged 6 mm pulmonary nodule in the lingula. Recommend follow-up chestCT no later than 12 months. Multivessel coronary arterial calcification/stents. Preliminary Report Dictated by Resident: John Echols ?Meli Goodrich MD., have reviewed this study and agree withthe above report.PROCEDURE: CT ANGIO CHEST WITH CONTRAST - PE PROTOCOL CLINICAL INDICATION: PE suspected, high pretest prob ? COMPARISON: 929 2 TECHNIQUE: ?Helical CT was performed and reconstructed at 1.25 mm slicethickness from lung base to apices after the administration of 120 mLOmnipaque-350 intravenous contrast, without complication. ?Display field ofview: 40 cm. FINDINGS: PULMONARY ARTERIES:Enhancement is suboptimal. No acute pulmonary embolism is seen to proximalpulmonary arteries. Pulmonary trunk is normal in diameter. CHEST:Lower neck/thyroid: Normal thyroid gland. Lungs: Unchanged 6 mm solid pulmonary nodul e with lobulated margins in thelingula. Bilateral scattered tree-in-bud opacities, for example in theright upper lobe on coronal image #103. No parenchymal consolidations areseen. Pleura: No pleural thickening, pleural effusion or pneumothorax. Central airway: The central airways are patent. Thoracic aorta and great vessels: Normal in diameter. Heart and pericardium: Dense multivessel coronary arterialcalcification/stents.. Unremarkable cardiac morphology and pericardium. Lymph nodes: No enlarged thoracic lymph nodes. Mediastinum: Unremarkable. Thoracic spine and chest wall: No suspicious or aggressive osseous lesion. Other Lines/Tubes/Devices/Hardware: None Visualized upper abdomen: Unremarkable. [facility], Radiant Results Inft User - 09/01/2020 8:21 PM CSTPROCEDURE: CT ANGIO CHEST WITH CONTRAST - PE PROTOCOLCLINICAL INDICATION: PE suspected, high pretest prob COMPARISON: 929 2TECHNIQUE: Helical CT was performed and reconstructed at 1.25 mm slicethickness from lungbase to apices after the administration of 120 mLOmnipaque-350 intravenous contrast, without complication. Display field ofview: 40 cm.FINDINGS:PULMONARY ARTERIES:Enhancement is suboptimal. No acute pu lmonary embolism is seen to proximalpulmonary arteries. Pulmonary trunk is normal in diameter.CHEST:Lower neck/thyroid: Normal thyroid gland. Lungs: Unchanged 6 mm solid pulmonary nodule with lobulatedmargins in thelingula. Bilateral scattered tree-in-bud opacities, for example in theright upper lobeon coronal image #103. No parenchymal consolidations areseen.Pleura: No pleural thickening, pleural effusion or pneumothorax.Central airway: The central airways are patent.Thoracic aorta and great vessels: Normal in diameter.Heart and pericardium: Dense multivessel coronary arterialcalcification/stents.. Unremarkable cardiac morphology and pericardium.Lymph nodes: No enlarged thoracic lymph nodes.Mediastinum: Unremarkable.Thoracic spine and chest wall: No suspicious or aggressive osseous lesion.Other Lines/Tubes/Devices/Hardware: NoneVisualized upper abdomen: Unremarkable. ____IMPRESSIONNo acute pulmonary embolism. Suboptimal enhancement of pulmonary arteries.Subtle bilateral tree-in-bud opacities may represent a mildinfectious/inflammatory etiology.Unchanged 6 mm pulmonary nodule in the lingula. Recommend follow-up chestCT no later than 12 months.Multivessel coronary arterial calcification/stents. Preliminary Report Dictated by Resident:John Luz MD., have reviewed this study and agree withthe above report.[facility] CenterUrinalysis2021-01-09 00:10:00 Test Item Value Reference Range Interpretation Comments APPEARANCE (test code = Clear Clear 5592171337) COLOR (test code = Yellow Yellow 2895146267) PH (test code = 4.8-8.0 4758747513) SP GRAVITY (test code = 1.003-1.030 9216514026) GLU U QUAL (test code = 500 mg/dL Normal A 0472730955) BLOOD (test code = Negative Negative 8381386695) KETONES (test code = Negative Negative 1907612598) PROTEIN (test code = Negative Negative 2887-8) UROBILIN (test code = Normal Normal 6640408274) BILIRUBIN (test code = Negative Negative 8760208874) NITRITE (test code = Negative Negative 4256825992) LEUK MARCI (test code = Negative Negative 3023731540) RBC/HPF (test code = <1 See_Comment [Autom ated message] 7402191980) The system [employer] generated this result transmit melissa reference range : 0 - 3 HPF. The refe rence range was not u sed to interpret th is result as normal/abnormal . WBC/HPF (test code = <1 See_Comment [Autom ated message] 2539779098) The system [employer] generated this result transmit melissa reference range : 0 - 5 HPF. The refe rence range was not u sed to interpret th is result as normal/abnormal . BACTERIA (test code = Negative Negative [id number]) Lab Interpretation (test Abnormal code = 17682-3) [facility] NOW RAPID TESTING)2020-09-02 00:03:00 Test Item Value Reference Range Interpretation Comments SARS-CoV-2 Rapid ID NOW Not Detected Not Detected (test code = 33500-6) ALTAGRACIA (test code = ALTAGRACIA) ID NOW COVID-19 Assay is an isothermal nucleic acid amplification test intended for the qualitative detection of nucleic acid from SARS-CoV-2 viral RNA in nasopharyngeal (ALUMINUM HYDROXIDE PROCESS OPERATOR) specimens. It is used under Emergency Use Authorization (EUA) by FDA. The limit of detection (LOD) of the assay is 125 Genome Equivalents/mL. A positive result is indicative of the presence of SARS-CoV-2 RNA. ?Clinical correlation with patient history and other diagnostic [...] for repeat patient testing if clinically indicated. Lab Interpretation Normal (test code = 42150-7) [facility] CenterD-[id number] 23:44:00 Test Item Value Reference Interpretation Comments Range D-DIMER (test code = <0.27 See_Comment [Autom ated [id number]) message] The system which generated this result transmitted reference range : <0.41 ?g/mL (FEU). The reference range was not used to interpret this result as normal/abnormal . ALTAGRACIA (test code = This test may be ALTAGRACIA) used in conjunction with a clinical pretest probability (PTP) assessment model to exclude venous thromboembolism (VTE) in patients suspected of deep venous thrombosis (DVT) and pulmonary embolism (PE) A D-Dimer value less than 0.50 ?g/ml (FEU) has a negative predicative value of [...] the clinical context, in forming a diagnosis. Lab Interpretation Normal (test code = 32826-3) [facility] CenterTroponin [id number] 23:35:00 Test Item Value Reference Range Interpretation Comments TROPONIN I (test <0.012 See_Comment [Automated code = 5834087586) message] The system which generated this result transmitted reference range : <=0.034 ng/mL. The reference range was not used to interpr et this result as normal/abnormal . ALTAGRACIA (test code = Equal or Less than ALTAGRACIA) 0.034 ng/ml---Normal ?Note: Cardiac troponin begins to rise 3-4 hours after the onset of ischemia. Repeat in 4-6 hours if the sample was drawn within 3-4 hours of the onset of the symptom and found normal. Between 0.035 and 0.120 ng/mL--- Borderline. Questionable myocardial injury or necrosis ? ?Note: Serial measurement may be necessary to confirm or exclude the diagnosis of myocardial injury or necrosis; Clinical correlation (symptoms, EKGs, imaging studies, and others) required; Repeat in 4-6 hours if clinically indicated. ? Equal or Higher than 0.121 ng/mL---Abnormal. Myocardial Injury or Necrosis Likely ? Biotin has been reported to cause a negative bias, interpret results relative to patient's use of biotin. ? Lab Interpretation Normal (test code = 57122-3) [facility] CenterN-TERMINAL [id number] 23:31:00 Test Item Value Reference Range Interpretation Comments NT-proBNP (test code 191 pg/mL See_Comment H [Autom ated = 1118511960) message] The system which generated this result transmitted reference range : <=125. The reference range was not used to interpret this result as normal/abnormal . ALTAGRACIA (test code = ALTAGRACIA) Biotin has been reported to cause a negative bias, interpret results relative to patient's use of biotin. Lab Interpretation Abnormal (test code = 49348-0) [facility] (NA, K, CL, CO2, GLUCOSE, BUN, CREATININE, CA)2020-09-01 23:23:00 Test Item Value Reference Range Interpretation Comments NA (test code = 134 mmol/L 135-145 L 3551687524) K (test code = 4.5 mmol/L 3.5-5 9793321567) CL (test code = 97 mmol/L 98-108 L 2451931433) CO2 TOTAL (test code = 28 mmol/L 23-31 9732197059) AGAP (test code = 2-16 7110491401) BUN (test code = 18 mg/dL 7-23 8560396554) GLUCOSE (test code = 198 mg/dL 70-110 H 7411430407) CREATININE (test code = 0.84 mg/dL 0.6-1.25 0791251474) CALCIUM (test code = 9.1 mg/dL 8.6-10.6 9716041112) eGFR Calculation mL/min/1.73m2 (Non-) (test code = 6709750074) eGFR Calculation mL/min/1.73m2 () (test code = 2022658883) ALTAGRACIA (test code = ALTAGRACIA) Association of Glomerular Filtration Rate (GFR) and Staging of Kidney Disease* + --+ --+ ------+| GFR (mL/min/1.73 m2) ?| With Kidney Damage ?| ?Without Kidney Damage+ --------+ --------+ +| ?>90 ?| ?Stage one ?| ? Normal ?+ ---+ ---+ -------+| ?60-89 ?| ?Stage two ?| ? Decreased GFR ? + --+ --+ ------+| ?30-59 ?| ?Stage three ?| ? Stage three ? + --+ --+ ------+| ?15-29 ?| ?Stage four ? | ? Stage four ?+ ---+ ---+ -------+| ?<15 (or dialysis) ? ?| ?Stage five ? | ? Stage five ?+ ---+ ---+ -------+ *Each stage assumes the associated GFR level has been in effect for at least three months. ?Stages 1 to 5, with or without kidney disease, indicate chronic kidney disease. Notes: Determination of stages one and two (with eGFR >59mL/min/1.73 m2) requires estimation of kidney damage for at least three months as defined by structural or functional abnormalities of the kidney, manifested by either:Pathological abnormalities or Markers of kidney damage (including abnormalities in the composition of the blood or urine or abnormalities in imaging tests). Lab Interpretation Abnormal (test code = 21790-1) [facility] CenterHepatic Function Panel (ALB, T.PRO, BILI T, BU/BC, ALT, AST, ALK PHOS)2020-09-01 23:23:00 Test Item Value Reference Range Interpretation Comments TOTAL BILI (test code = 4547179601) 0.6 mg/dL 0.1-1.1 BILI UNCON (test code = 8237042619) 0.5 mg/dL 0.1-1.1 BILI CONJ (test code = 5313229502) 0.0 mg/dL 0-0.3 T PROTEIN (test code = 4335727254) 7.2 g/dL 6.3-8.2 ALBUMIN (test code = 8382396481) 4.5 g/dL 3.5-5 ALK PHOS (test code = 1695999973) 63 U/L 34-122 ALTv (test code = 1742-6) 38 U/L 5-50 AST(SGOT) (test code = 4124484173) 32 U/L 13-40 Lab Interpretation (test code = Normal 07440-1) [facility] CenterProthrombin Time (PT) / [id number] 23:18:00 Test Item Value Reference Range Interpretation Comments PROTIME PATIENT (test See_Comment [Auto mated message] code = 5964-2) The system [employer] generated this result transmitted ref erence range: 12.0 - 1 4.7 Seconds. The re ference range was not u sed to interpret this result as normal/abnor mal. INR (test code = 6301-6) Nor mal INR <1.1; Warfarin Therap eutic range 2.0 to 3. 0 or 2.5 to 3.5, dep ending upon the indica tions. Lab Interpretation (test Normal code = 20912-2) [facility] CenterCB with [id number] 23:12:00 Test Item Value Reference Range Interpretation Comments WBC (test code = See_Comment H [Automated 6690-2) message] The sy stem which generated this result transmitted reference range : 4.20 - 10.70 10*3/?L. The reference range was not used to interpret this result as normal/abnormal . RBC (test code = See_Comment [Automated 789-8) message] The sy stem which generated this result transmitted reference range : 4.26 - 5.52 10*6/?L. The reference range was not used to interpret this result as normal/abnormal . HGB (test code = 15.0 g/dL 12.2-16.4 718-7) HCT (test code = 44.9 % 38.4-49.3 4544-3) MCV (test code = 93.2 fL 81.7-95.6 787-2) MCH (test code = 31.1 pg 26.1-32.7 785-6) MCHC (test code = 33.4 g/dL 31.2-35 786-4) RDW-SD (test code = 41.4 fL 38.5-51.6 37706-3) RDW-CV (test code = 12.0 % 12.1-15.4 L 788-0) PLT (test code = See_Comment [Automated 777-3) message] The sy stem which generated this result transmitted reference range : 150 - 328 10*3/ ?L. The reference r cirstin was not used to interpret this result as normal/abnormal . MPV (test code = 10.1 fL 9.8-13 88278-1) NRBC/100 WBC (test See_Comment [Automat ed code = 4750395922) message] The system which generated this result transmitted reference range : 0.0 - 10.0 /100 WBCs. The refer ence range was not u sed to interpret th is result as normal/abnormal . NRBC x10^3 (test code <0.01 See_Comment [Auto mated = 9377164638) message] The s ystem which generated this result transmitted reference range : 10*3/?L. The reference range was not used to interpret this result as normal/abnormal . GRAN MAT (NEUT) % 62.7 % (test code = 770-8) IMM GRAN % (test code 0.50 % = 6153957628) LYMPH % (test code = 23.5 % 736-9) MONO % (test code = 11.1 % 5905-5) EOS % (test code = 1.8 % 713-8) BASO % (test code = 0.4 % 706-2) GRAN MAT x10^3(ANC) 6.82 10*3/uL 1.99-6.95 (test code = 3958134834) IMM GRAN x10^3 (test 0.05 10*3/uL 0-0.06 code = 8457582092) LYMPH x10^3 (test code 2.55 10*3/uL 1.09-3.23 = 731-0) MONO x10^3 (test code 1.20 10*3/uL 0.36-1.02 H = 742-7) EOS x10^3 (test code = 0.19 10*3/uL 0.06-0.53 711-2) BASO x10^3 (test code 0.04 10*3/uL 0.01-0.09 = 704-7) Lab Interpretation Abnormal (test code = 39143-4) [facility] 1 [id number] 23:00:20Impression: No acute cardiopulmonary abnormality.Exam: XR CHEST 1 09/01/2020 4:50 PM Clinical History: CP Comparison: Radiograph of 06/02/2020 Technique: frontal view of the chest Findings: The lungs are clear. ?No pleural effusion. ?No pneumothorax. The cardiac size is normal. No acute osseous abnormality. [facility], Radiant Results Inft User - 09/01/2020 5:01 PM CSTExam: XR CHEST 1 09/01/2020 4:50 PMClinical History: CP Comparison: Radiograph of 06/02/2020Technique: frontal view of the chestFindings:The lungs are clear. No pleural effusion. No pneumothorax. The cardiac size is normal. No acute osseous abnormality.IMPRESSIONImpression: No acute cardiopulmonary abnormality.[facility] GLUCOSE (AUTOMATED)2020-06-03 17:12:00 Test Item Value Reference Range Interpretation Comments POCT GLU (test code = 7990971219) 204 mg/dL 70-110 H Lab Interpretation (test code = Abnormal 54487-7) [facility] CenterPO[facility])2020-06-03 14:01:00 Test Item Value Reference Range Interpretation Comments POCT GLU (test code = 9458396851) 129 mg/dL 70-110 H Lab Interpretation (test code = Abnormal 98867-8) [facility] CenterTroponin [id number] 06:14:00 Test Item Value Reference Range Interpretation Comments TROPONIN I (test <0.012 See_Comment [Automated code = 0086300152) message] The system which generated this result transmitted reference range : <=0.034 ng/mL. The reference range was not used to interpr et this result as normal/abnormal . ALTAGRACIA (test code = Equal or Less than ALTAGRACIA) 0.034 ng/ml---Normal ?Note: Cardiac troponin begins to rise 3-4 hours after the onset of ischemia. Repeat in 4-6 hours if the sample was drawn within 3-4 hours of the onset of the symptom and found normal. Between 0.035 and 0.120 ng/mL--- Borderline. Questionable myocardial injury or necrosis ? ?Note: Serial measurement may be necessary to confirm or exclude the diagnosis of myocardial injury or necrosis; Clinical correlation (symptoms, EKGs, imaging studies, and others) required; Repeat in 4-6 hours if clinically indicated. ? Equal or Higher than 0.121 ng/mL---Abnormal. Myocardial Injury or Necrosis Likely ? Biotin has been reported to cause a negative bias, interpret results relative to patient's use of biotin. ? Lab Interpretation Normal (test code = 16112-9) [facility] CenterBasic Metabolic Panel (NA, K, CL, CO2, GLUCOSE, BUN, CREATININE, CA)2020-06-03 06:02:00 Test Item Value Reference Range Interpretation Comments NA (test code = 134 mmol/L 135-145 L 8229317662) K (test code = 4.0 mmol/L 3.5-5 4409146398) CL (test code = 102 mmol/L 98-108 3910874763) CO2 TOTAL (test code = 24 mmol/L 23-31 6972145335) AGAP (test code = 2-16 6360161057) BUN (test code = 21 mg/dL 7-23 7622533944) GLUCOSE (test code = 102 mg/dL 70-110 3981762342) CREATININE (test code = 0.85 mg/dL 0.6-1.25 9183050958) CALCIUM (test code = 9.1 mg/dL 8.6-10.6 3296364699) eGFR Calculation mL/min/1.73m2 (Non-) (test code = 2619803513) eGFR Calculation mL/min/1.73m2 () (test code = 8693391726) ALTAGRACIA (test code = ALTAGRACIA) Association of Glomerular Filtration Rate (GFR) and Staging of Kidney Disease* + --+ --+ ------+| GFR (mL/min/1.73 m2) ?| With Kidney Damage ?| ?Without Kidney Damage+ --------+ --------+ +| ?>90 ?| ?Stage one ?| ? Normal ?+ ---+ ---+ -------+| ?60-89 ?| ?Stage two ?| ? Decreased GFR ? + --+ --+ ------+| ?30-59 ?| ?Stage three ?| ? Stage three ? + --+ --+ ------+| ?15-29 ?| ?Stage four ? | ? Stage four ?+ ---+ ---+ -------+| ?<15 (or dialysis) ? ?| ?Stage five ? | ? Stage five ?+ ---+ ---+ -------+ *Each stage assumes the associated GFR level has been in effect for at least three months. ?Stages 1 to 5, with or without kidney disease, indicate chronic kidney disease. Notes: Determination of stages one and two (with eGFR >59mL/min/1.73 m2) requires estimation of kidney damage for at least three months as defined by structural or functional abnormalities of the kidney, manifested by either:Pathological abnormalities or Markers of kidney damage (including abnormalities in the composition of the blood or urine or abnormalities in imaging tests). Lab Interpretation Abnormal (test code = 54412-4) [facility] with [id number] 05:52:00 Test Item Value Reference Range Interpretation Comments WBC (test code = See_Comment [Automated 6690-2) message] The sy stem which generated this result transmitted reference range : 4.20 - 10.70 10*3/?L. The reference range was not used to interpret this result as normal/abnormal . RBC (test code = See_Comment [Automated 789-8) message] The sy stem which generated this result transmitted reference range : 4.26 - 5.52 10*6/?L. The reference range was not used to interpret this result as normal/abnormal . HGB (test code = 14.0 g/dL 12.2-16.4 718-7) HCT (test code = 41.0 % 38.4-49.3 4544-3) MCV (test code = 90.5 fL 81.7-95.6 787-2) MCH (test code = 30.9 pg 26.1-32.7 785-6) MCHC (test code = 34.1 g/dL 31.2-35 786-4) RDW-SD (test code = 37.8 fL 38.5-51.6 L 81170-6) RDW-CV (test code = 11.4 % 12.1-15.4 L 788-0) PLT (test code = See_Comment [Automated 777-3) message] The sy stem which generated this result transmitted reference range : 150 - 328 10*3/ ?L. The reference r cristin was not used to interpret this result as normal/abnormal . MPV (test code = 9.9 fL 9.8-13 87249-1) NRBC/100 WBC (test See_Comment [Automat ed code = 8913122103) message] The system which generated this result transmitted reference range : 0.0 - 10.0 /100 WBCs. The refer ence range was not u sed to interpret th is result as normal/abnormal . NRBC x10^3 (test code <0.01 See_Comment [Auto mated = 8944983608) message] The s ystem which generated this result transmitted reference range : 10*3/?L. The reference range was not used to interpret this result as normal/abnormal . GRAN MAT (NEUT) % 42.4 % (test code = 770-8) IMM GRAN % (test code 0.60 % = 4077713043) LYMPH % (test code = 42.2 % 736-9) MONO % (test code = 12.6 % 5905-5) EOS % (test code = 1.7 % 713-8) BASO % (test code = 0.5 % 706-2) GRAN MAT x10^3(ANC) 3.59 10*3/uL 1.99-6.95 (test code = 4978855450) IMM GRAN x10^3 (test 0.05 10*3/uL 0-0.06 code = 2850984992) LYMPH x10^3 (test code 3.56 10*3/uL 1.09-3.23 H = 731-0) MONO x10^3 (test code 1.06 10*3/uL 0.36-1.02 H = 742-7) EOS x10^3 (test code = 0.14 10*3/uL 0.06-0.53 711-2) BASO x10^3 (test code 0.04 10*3/uL 0.01-0.09 = 704-7) Lab Interpretation Abnormal (test code = 60608-7) [facility] [id number] 23:55:00 Test Item Value Reference Range Interpretation Comments TROPONIN I (test <0.012 See_Comment [Automated code = 2822212851) message] The system which generated this result transmitted reference range : <=0.034 ng/mL. The reference range was not used to interpr et this result as normal/abnormal . ALTAGRACIA (test code = Equal or Less than ALTAGRACIA) 0.034 ng/ml---Normal ?Note: Cardiac troponin begins to rise 3-4 hours after the onset of ischemia. Repeat in 4-6 hours if the sample was drawn within 3-4 hours of the onset of the symptom and found normal. Between 0.035 and 0.120 ng/mL--- Borderline. Questionable myocardial injury or necrosis ? ?Note: Serial measurement may be necessary to confirm or exclude the diagnosis of myocardial injury or necrosis; Clinical correlation (symptoms, EKGs, imaging studies, and others) required; Repeat in 4-6 hours if clinically indicated. ? Equal or Higher than 0.121 ng/mL---Abnormal. Myocardial Injury or Necrosis Likely ? Biotin has been reported to cause a negative bias, interpret results relative to patient's use of biotin. ? Lab Interpretation Normal (test code = 96979-3) [facility] CenterN-[facility]MINAL [id number] 23:28:00 Test Item Value Reference Range Interpretation Comments NT-proBNP (test code 195 pg/mL See_Comment H [Autom ated = 9861545732) message] The system which generated this result transmitted reference range : <=125. The reference range was not used to interpret this result as normal/abnormal . ALTAGRACIA (test code = ALTAGRACIA) Biotin has been reported to cause a negative bias, interpret results relative to patient's use of biotin. Lab Interpretation Abnormal (test code = 79664-3) [facility] CenterThyroid Stimulating Hormone (TSH)2020-06-02 23:28:00 Test Item Value Reference Range Interpretation Comments TSH (test code = See_Comment Biotin has been 7744114239) reported to cau se a negative bias, interpret resul ts relative to pat amynt's use of biotin. [Automated mess age] The system [employer] generated this result transmitted ref erence range: 0.45 - 4 .70 mIU/L. The refe rence range was not u sed to interpret this result as normal/abnor mal. Lab Interpretation (test Normal code = 23363-4) [facility] CenterMagnesium [id number] 23:27:00 Test Item Value Reference Range Interpretation Comments MAGNESIUM (test code = 6817158151) 1.8 mg/dL 1.7-2.4 Lab Interpretation (test code = Normal 57840-3) [facility] CenterPOCT GLUCOSE (AUTOMATED)2020-06-02 21:55:00 Test Item Value Reference Range Interpretation Comments POCT GLU (test code = 2950659794) 128 mg/dL 70-110 H Lab Interpretation (test code = Abnormal 50887-1) [facility] CenterLIPID PANEL (97457)(TOTAL CHOLESTEROL, TRIGLYCERIDES, HDL)2020-06-02 21:35:00 Test Item Value Reference Range Interpretation Comments CHOL (test code = 97 mg/dL 120-200 L 0217356068) HDL (test code = 25 mg/dL >40 L 2035875546) HDLC RATIO (test code = See_Comment [Au tomated message] 9067720955) The system [employer] generated this result transmit melissa reference range : <=5.0. The refe rence range was not u sed to interpret th is result as normal/abnormal . TRIG (test code = 203 mg/dL 30-170 H 4025478745) LDL CHOL (test code = 31 mg/dL See_Comment [Auto mated message] 20831-7) The system [employer] generated this result transmit melissa reference range : <=160. The refe rence range was not u sed to interpret th is result as normal/abnormal . VLDL (test code = 41 mg/dL 5-60 5013695208) Lab Interpretation (test Abnormal code = 63874-9) [facility] CenterCOVID[facility]19 (ID NOW RAPID TESTING)2020-06-02 18:17:00 Test Item Value Reference Range Interpretation Comments SARS-CoV-2 Rapid ID NOW Not Detected Not Detected (test code = 61592-9) ALTAGRACIA (test code = ALTAGRACIA) ID NOW COVID-19 Assay is an isothermal nucleic acid amplification test intended for the qualitative detection of nucleic acid from SARS-CoV-2 viral RNA in nasopharyngeal (ALUMINUM HYDROXIDE PROCESS OPERATOR) specimens. It is used under Emergency Use Authorization (EUA) by FDA. The limit of detection (LOD) of the assay is 125 Genome Equivalents/mL. A positive result is indicative of the presence of SARS-CoV-2 RNA. ?Clinical correlation with patient history and other diagnostic [...] for repeat patient testing if clinically indicated. Lab Interpretation Normal (test code = 97540-8) [facility] CenterXR CHEST 1 [id number] 17:48:27CHEST PORTABLE ONE VIEW HISTORY:CP TECHNIQUE: Frontal, portable projection of the chest is obtained.COMPARISON: 05/23/2020 FINDINGS: The lungs are clear. The heart size and mediastinal silhouetteare normal. No pleural effusion or pneumothorax is seen. CONCLUSIONS: No acute cardiopulmonary disease. [facility], Radiant Results Inft User - 06/02/2020 12:49 PM CDTCHEST PORTABLE ONE VIEWHISTORY:CPTECHNIQUE: Frontal, portable projection of the chest is obtained.COMPARISON: 05/23/2020FINDINGS: The lungs are clear. The heart size and mediastinal silhouetteare normal. No pleural effusion or pneumothorax is seen.CONCLUSIONS: No acute cardiopulmonary disease. [facility] CenterTROPONIN [id number] 17:46:00 Test Item Value Reference Range Interpretation Comments TROPONIN I (test <0.012 See_Comment [Automated code = 4886317436) message] The system which generated this result transmitted reference range : <=0.034 ng/mL. The reference range was not used to interpr et this result as normal/abnormal . ALTAGRACIA (test code = Equal or Less than ALTAGRACIA) 0.034 ng/ml---Normal ?Note: Cardiac troponin begins to rise 3-4 hours after the onset of ischemia. Repeat in 4-6 hours if the sample was drawn within 3-4 hours of the onset of the symptom and found normal. Between 0.035 and 0.120 ng/mL--- Borderline. Questionable myocardial injury or necrosis ? ?Note: Serial measurement may be necessary to confirm or exclude the diagnosis of myocardial injury or necrosis; Clinical correlation (symptoms, EKGs, imaging studies, and others) required; Repeat in 4-6 hours if clinically indicated. ? Equal or Higher than 0.121 ng/mL---Abnormal. Myocardial Injury or Necrosis Likely ? Biotin has been reported to cause a negative bias, interpret results relative to patient's use of biotin. ? Lab Interpretation Normal (test code = 27904-5) [facility] CenteraPTT2020-10-09 17:42:00 Test Item Value Reference Range Interpretation Comments APTT Patient (test See_Comment [Automat ed code = 3173-2) message] The system which generated this result transmitted reference range : 23 - 38 Seconds . The reference range was not used to interpr et this result as normal/abnormal . ALTAGRACIA (test code = ALTAGRACIA) The [facility] patient population mean normal value for aPTT is 30 seconds. Lab Interpretation Normal (test code = 26386-1) [facility] CenterPROTHROMBIN TIME / [id number] 17:39:00 Test Item Value Reference Range Interpretation Comments PROTIME PATIENT (test See_Comment [Auto mated message] code = 5964-2) The system wh ich generated this result transmitted ref erence range: 12.0 - 1 4.7 Seconds. The re ference range was not u sed to interpret this result as normal/abnor mal. INR (test code = 6301-6) Nor mal INR <1.1; Warfarin Therap eutic range 2.0 to 3. 0 or 2.5 to 3.5, dep ending upon the indica tions. Lab Interpretation (test Normal code = 55747-4) [facility] CenterCOMP. METABOLIC PANEL (43489)2020-06-02 17:35:00 Test Item Value Reference Range Interpretation Comments NA (test code = 135 mmol/L 135-145 0548668506) K (test code = 4.4 mmol/L 3.5-5 0256803452) CL (test code = 99 mmol/L 98-108 3162152166) CO2 TOTAL (test code = 23 mmol/L 23-31 6350681655) AGAP (test code = 2-16 9556650081) BUN (test code = 22 mg/dL 7-23 5453592575) GLUCOSE (test code = 192 mg/dL 70-110 H 9806928607) CREATININE (test code = 0.90 mg/dL 0.6-1.25 1599599020) TOTAL BILI (test code = 0.8 mg/dL 0.1-1.5 5597115847) CALCIUM (test code = 9.8 mg/dL 8.6-10.6 6589539685) T PROTEIN (test code = 7.2 g/dL 6.3-8.2 7326863777) ALBUMIN (test code = 4.2 g/dL 3.5-5 8841876299) ALK PHOS (test code = 76 U/L 34-122 9128789989) ALTv (test code = 27 U/L 5-50 1742-6) AST(SGOT) (test code = 25 U/L 13-40 8008935749) eGFR Calculation mL/min/1.73m2 (Non-) (test code = 3254753592) eGFR Calculation mL/min/1.73m2 () (test code = 7025794266) ALTAGRACIA (test code = ALTAGRACIA) Association of Glomerular Filtration Rate (GFR) and Staging of Kidney Disease* + --+ --+ ------+| GFR (mL/min/1.73 m2) ?| With Kidney Damage ?| ?Without Kidney Damage+ --------+ --------+ +| ?>90 ?| ?Stage one ?| ? Normal ?+ ---+ ---+ -------+| ?60-89 ?| ?Stage two ?| ? Decreased GFR ? + --+ --+ ------+| ?30-59 ?| ?Stage three ?| ? Stage three ? + --+ --+ ------+| ?15-29 ?| ?Stage four ? | ? Stage four ?+ ---+ ---+ -------+| ?<15 (or dialysis) ? ?| ?Stage five ? | ? Stage five ?+ ---+ ---+ -------+ *Each stage assumes the associated GFR level has been in effect for at least three months. ?Stages 1 to 5, with or without kidney disease, indicate chronic kidney disease. Notes: Determination of stages one and two (with eGFR >59mL/min/1.73 m2) requires estimation of kidney damage for at least three months as defined by structural or functional abnormalities of the kidney, manifested by either:Pathological abnormalities or Markers of kidney damage (including abnormalities in the composition of the blood or urine or abnormalities in imaging tests). Lab Interpretation Abnormal (test code = 05092-0) [facility] [id number] 17:35:00 Test Item Value Reference Range Interpretation Comments LIPASE (test code = 2949813314) 133 U/L 0-220 Lab Interpretation (test code = Normal 60335-7) [facility] [id number] 17:11:00 Test Item Value Reference Range Interpretation Comments WBC (test code = See_Comment [Automated 6690-2) message] The sy stem which generated this result transmitted reference range : 4.20 - 10.70 10*3/?L. The reference range was not used to interpret this result as normal/abnormal . RBC (test code = See_Comment [Automated 789-8) message] The sy stem which generated this result transmitted reference range : 4.26 - 5.52 10*6/?L. The reference range was not used to interpret this result as normal/abnormal . HGB (test code = 15.4 g/dL 12.2-16.4 718-7) HCT (test code = 43.7 % 38.4-49.3 4544-3) MCV (test code = 89.2 fL 81.7-95.6 787-2) MCH (test code = 31.4 pg 26.1-32.7 785-6) MCHC (test code = 35.2 g/dL 31.2-35 H 786-4) RDW-SD (test code = 36.9 fL 38.5-51.6 L 83026-9) RDW-CV (test code = 11.5 % 12.1-15.4 L 788-0) PLT (test code = See_Comment [Automated 777-3) message] The sy stem which generated this result transmitted reference range : 150 - 328 10*3/ ?L. The reference r cristin was not used to interpret this result as normal/abnormal . MPV (test code = 10.0 fL 9.8-13 80423-3) NRBC/100 WBC (test See_Comment [Automat ed code = 5997860989) message] The system which generated this result transmitted reference range : 0.0 - 10.0 /100 WBCs. The refer ence range was not u sed to interpret th is result as normal/abnormal . NRBC x10^3 (test code <0.01 See_Comment [Auto mated = 9378757920) message] The s ystem which generated this result transmitted reference range : 10*3/?L. The reference range was not used to interpret this result as normal/abnormal . GRAN MAT (NEUT) % 67.3 % (test code = 770-8) IMM GRAN % (test code 0.50 % = 2275898398) LYMPH % (test code = 22.0 % 736-9) MONO % (test code = 8.8 % 5905-5) EOS % (test code = 1.0 % 713-8) BASO % (test code = 0.4 % 706-2) GRAN MAT x10^3(ANC) 6.71 10*3/uL 1.99-6.95 (test code = 6515899331) IMM GRAN x10^3 (test 0.05 10*3/uL 0-0.06 code = 0093637772) LYMPH x10^3 (test code 2.19 10*3/uL 1.09-3.23 = 731-0) MONO x10^3 (test code 0.88 10*3/uL 0.36-1.02 = 742-7) EOS x10^3 (test code = 0.10 10*3/uL 0.06-0.53 711-2) BASO x10^3 (test code 0.04 10*3/uL 0.01-0.09 = 704-7) Lab Interpretation Abnormal (test code = 58668-1) [facility] GLUCOSE (AUTOMATED)2020-05-28 18:35:00 Test Item Value Reference Range Interpretation Comments POCT GLU (test code = 4604145199) 156 mg/dL 70-110 H Lab Interpretation (test code = Abnormal 64111-7) [facility] GLUCOSE (AUTOMATED)2020-05-28 14:09:00 Test Item Value Reference Range Interpretation Comments POCT GLU (test code = 7482918400) 159 mg/dL 70-110 H Lab Interpretation (test code = Abnormal 05589-7) [facility] [id number] 09:53:00 Test Item Value Reference Range Interpretation Comments TROPONIN I (test 0.089 ng/mL See_Comment H [Automated code = 7594149458) message] The system which generated this result transmitted reference range : <=0.034. The reference range was not used to interpret this result as normal/abnormal . ALTAGRACIA (test code = Equal or Less than ALTAGRACIA) 0.034 ng/ml---Normal ?Note: Cardiac troponin begins to rise 3-4 hours after the onset of ischemia. Repeat in 4-6 hours if the sample was drawn within 3-4 hours of the onset of the symptom and found normal. Between 0.035 and 0.120 ng/mL--- Borderline. Questionable myocardial injury or necrosis ? ?Note: Serial measurement may be necessary to confirm or exclude the diagnosis of myocardial injury or necrosis; Clinical correlation (symptoms, EKGs, imaging studies, and others) required; Repeat in 4-6 hours if clinically indicated. ? Equal or Higher than 0.121 ng/mL---Abnormal. Myocardial Injury or Necrosis Likely ? Biotin has been reported to cause a negative bias, interpret results relative to patient's use of biotin. ? Lab Interpretation Abnormal (test code = 17282-9) [facility] + [id number] 09:53:00 Test Item Value Reference Range Interpretation Comments CK (test code = 52 U/L 33-194 4245640959) CK-MB (test code = 0.27 ng/mL See_Comment [Automat ed 4757623050) message] The system which generated this result transmitted reference range : <=3.50. The reference range was not used to interpret this result as normal/abnormal . CKMB INDEX (test code 0.5 % 0-2.5 = 2022045126) ALTAGRACIA (test code = ALTAGRACIA) Biotin has been reported to cause a negative bias, interpret results relative to patient's use of biotin. Lab Interpretation Normal (test code = 66260-2) [facility] (NA, K, CL, CO2, GLUCOSE, BUN, CREATININE, CA)2020-05-28 09:43:00 Test Item Value Reference Range Interpretation Comments NA (test code = 134 mmol/L 135-145 L 1175926188) K (test code = 4.1 mmol/L 3.5-5 6290130940) CL (test code = 101 mmol/L 98-108 9279262781) CO2 TOTAL (test code = 26 mmol/L 23-31 2739323338) AGAP (test code = 2-16 1198642874) BUN (test code = 18 mg/dL 7-23 7486315474) GLUCOSE (test code = 151 mg/dL 70-110 H 4862950140) CREATININE (test code = 0.78 mg/dL 0.6-1.25 2286992277) CALCIUM (test code = 8.8 mg/dL 8.6-10.6 3844867792) eGFR Calculation mL/min/1.73m2 (Non-) (test code = 9172262045) eGFR Calculation mL/min/1.73m2 () (test code = 6728497251) ALTAGRACIA (test code = ALTAGRACIA) Association of Glomerular Filtration Rate (GFR) and Staging of Kidney Disease* + --+ --+ ------+| GFR (mL/min/1.73 m2) ?| With Kidney Damage ?| ?Without Kidney Damage+ --------+ --------+ +| ?>90 ?| ?Stage one ?| ? Normal ?+ ---+ ---+ -------+| ?60-89 ?| ?Stage two ?| ? Decreased GFR ? + --+ --+ ------+| ?30-59 ?| ?Stage three ?| ? Stage three ? + --+ --+ ------+| ?15-29 ?| ?Stage four ? | ? Stage four ?+ ---+ ---+ -------+| ?<15 (or dialysis) ? ?| ?Stage five ? | ? Stage five ?+ ---+ ---+ -------+ *Each stage assumes the associated GFR level has been in effect for at least three months. ?Stages 1 to 5, with or without kidney disease, indicate chronic kidney disease. Notes: Determination of stages one and two (with eGFR >59mL/min/1.73 m2) requires estimation of kidney damage for at least three months as defined by structural or functional abnormalities of the kidney, manifested by either:Pathological abnormalities or Markers of kidney damage (including abnormalities in the composition of the blood or urine or abnormalities in imaging tests). Lab Interpretation Abnormal (test code = 89082-1) [facility]2020-[facility] 09:43:00 Test Item Value Reference Range Interpretation Comments MAGNESIUM (test code = 4654766941) 1.9 mg/dL 1.7-2.4 Lab Interpretation (test code = Normal 58164-7) [facility] WITHOUT [id number] 09:24:00 Test Item Value Reference Range Interpretation Comments WBC (test code = 6690-2) See_Comment [A utomated message] The system [employer] generated this result transmit melissa reference range : 4.20 - 10.70 10*3/?L. The reference range was not used to interpret this result as normal/abnormal . RBC (test code = 789-8) See_Comment [Au tomated message] The system [employer] generated this result transmit melissa reference range : 4.26 - 5.52 10* 6/?L. The reference r cristin was not used to interpret this result as normal/abnormal . HGB (test code = 718-7) 14.7 g/dL 12.2-16.4 HCT (test code = 4544-3) 42.4 % 38.4-49.3 MCH (test code = 785-6) 31.8 pg 26.1-32.7 MCV (test code = 787-2) 91.8 fL 81.7-95.6 MCHC (test code = 786-4) 34.7 g/dL 31.2-35 PLT (test code = 777-3) See_Comment [Au tomated message] The system [employer] generated this result transmit melissa reference range : 150 - 328 10*3/?L. The reference range was not used to interpret this result as normal/abnormal . MPV (test code = 10.2 fL 9.8-13 45873-3) RDW-CV (test code = 11.9 % 12.1-15.4 L 788-0) RDW-SD (test code = 39.8 fL 38.5-51.6 38358-5) NRBC x10^3 (test code = <0.01 See_Comment [Au tomated message] 4807827283) The system [employer] generated this result transmit melissa reference range : 10*3/?L. The reference range was not used to interpret this result as normal/abnormal . NRBC/100 WBC (test code See_Comment [Au tomated message] = 5983750014) The system [employer] generated this result transmit melissa reference range : 0.0 - 10.0 /100 WBC s. The reference r cristin was not used to interpret this result as normal/abnormal . IPF % (test code = 8126303927) Lab Interpretation (test Abnormal code = 37073-4) [facility] METABOLIC PANEL (NA, K, CL, CO2, GLUCOSE, BUN, CREATININE, CA)2020-05-28 05:21:00 Test Item Value Reference Range Interpretation Comments NA (test code = 134 mmol/L 135-145 L 9135056525) K (test code = 3.9 mmol/L 3.5-5 8068622289) CL (test code = 103 mmol/L 98-108 4720628204) CO2 TOTAL (test code = 22 mmol/L 23-31 L 5831097875) AGAP (test code = 2-16 2146903487) BUN (test code = 17 mg/dL 7-23 9664159410) GLUCOSE (test code = 149 mg/dL 70-110 H 1517134636) CREATININE (test code = 0.76 mg/dL 0.6-1.25 3519035164) CALCIUM (test code = 8.4 mg/dL 8.6-10.6 L 7951751619) eGFR Calculation mL/min/1.73m2 (Non-) (test code = 7773673280) eGFR Calculation mL/min/1.73m2 () (test code = 9990678433) ALTAGRACIA (test code = ALTAGRACIA) Association of Glomerular Filtration Rate (GFR) and Staging of Kidney Disease* + --+ --+ ------+| GFR (mL/min/1.73 m2) ?| With Kidney Damage ?| ?Without Kidney Damage+ --------+ --------+ +| ?>90 ?| ?Stage one ?| ? Normal ?+ ---+ ---+ -------+| ?60-89 ?| ?Stage two ?| ? Decreased GFR ? + --+ --+ ------+| ?30-59 ?| ?Stage three ?| ? Stage three ? + --+ --+ ------+| ?15-29 ?| ?Stage four ? | ? Stage four ?+ ---+ ---+ -------+| ?<15 (or dialysis) ? ?| ?Stage five ? | ? Stage five ?+ ---+ ---+ -------+ *Each stage assumes the associated GFR level has been in effect for at least three months. ?Stages 1 to 5, with or without kidney disease, indicate chronic kidney disease. Notes: Determination of stages one and two (with eGFR >59mL/min/1.73 m2) requires estimation of kidney damage for at least three months as defined by structural or functional abnormalities of the kidney, manifested by either:Pathological abnormalities or Markers of kidney damage (including abnormalities in the composition of the blood or urine or abnormalities in imaging tests). Lab Interpretation Abnormal (test code = 95599-3) [facility] 05:21:00 Test Item Value Reference Range Interpretation Comments MAGNESIUM (test code = 8834417678) 1.9 mg/dL 1.7-2.4 Lab Interpretation (test code = Normal 46431-0) [facility] + [id number] 04:20:00 Test Item Value Reference Range Interpretation Comments CK (test code = 57 U/L 33-194 9890700957) CK-MB (test code = 0.39 ng/mL See_Comment [Automat ed 1140308358) message] The system which generated this result transmitted reference range : <=3.50. The reference range was not used to interpret this result as normal/abnormal . CKMB INDEX (test code 0.7 % 0-2.5 = 5953530293) ALTAGRACIA (test code = ALTAGRACIA) Biotin has been reported to cause a negative bias, interpret results relative to patient's use of biotin. Lab Interpretation Normal (test code = 82437-1) [facility] [id number] 02:58:00 Test Item Value Reference Range Interpretation Comments TROPONIN I (test 0.087 ng/mL See_Comment H [Automated code = 4269171932) message] The system which generated this result transmitted reference range : <=0.034. The reference range was not used to interpret this result as normal/abnormal . ALTAGRACIA (test code = Equal or Less than ALTAGRACIA) 0.034 ng/ml---Normal ?Note: Cardiac troponin begins to rise 3-4 hours after the onset of ischemia. Repeat in 4-6 hours if the sample was drawn within 3-4 hours of the onset of the symptom and found normal. Between 0.035 and 0.120 ng/mL--- Borderline. Questionable myocardial injury or necrosis ? ?Note: Serial measurement may be necessary to confirm or exclude the diagnosis of myocardial injury or necrosis; Clinical correlation (symptoms, EKGs, imaging studies, and others) required; Repeat in 4-6 hours if clinically indicated. ? Equal or Higher than 0.121 ng/mL---Abnormal. Myocardial Injury or Necrosis Likely ? Biotin has been reported to cause a negative bias, interpret results relative to patient's use of biotin. ? Lab Interpretation Abnormal (test code = 71928-0) [facility] GLUCOSE (AUTOMATED)2020-05-28 02:44:00 Test Item Value Reference Range Interpretation Comments POCT GLU (test code = 2941304444) 152 mg/dL 70-110 H Lab Interpretation (test code = Abnormal 41427-3) [facility] GLUCOSE (AUTOMATED)2020-05-27 23:08:00 Test Item Value Reference Range Interpretation Comments POCT GLU (test code = 2370548395) 159 mg/dL 70-110 H Lab Interpretation (test code = Abnormal 39773-2) [facility] GLUCOSE (AUTOMATED)2020-05-27 16:48:00 Test Item Value Reference Range Interpretation Comments POCT GLU (test code = 2195187138) 146 mg/dL 70-110 H Lab Interpretation (test code = Abnormal 72685-6) [facility] GLUCOSE (AUTOMATED)2020-05-27 12:42:00 Test Item Value Reference Range Interpretation Comments POCT GLU (test code = 1867485004) 196 mg/dL 70-110 H Lab Interpretation (test code = Abnormal 85523-9) [facility] Keep checking till PTT < 45 sec 2020-05-27 08:43:00 Test Item Value Reference Range Interpretation Comments APTT Patient (test code = See_Comment [ Automated message] 3173-2) The system [employer] generated this result transmitted ref erence range: 26 - 36 Seconds. The re ference range was not u sed to interpret this result as normal/abnor mal. Lab Interpretation (test Normal code = 76786-9) [facility] METABOLIC PANEL (NA, K, CL, CO2, GLUCOSE, BUN, CREATININE, CA)2020-05-27 07:01:00 Test Item Value Reference Range Interpretation Comments NA (test code = 132 mmol/L 135-145 L 2009772839) K (test code = 4.2 mmol/L 3.5-5 1169224817) CL (test code = 98 mmol/L 98-108 0428832395) CO2 TOTAL (test code = 29 mmol/L 23-31 7339522325) AGAP (test code = 2-16 6337396880) BUN (test code = 15 mg/dL 7-23 2556294863) GLUCOSE (test code = 174 mg/dL 70-110 H 1865921741) CREATININE (test code = 0.83 mg/dL 0.6-1.25 5662821737) CALCIUM (test code = 8.6 mg/dL 8.6-10.6 4818784880) eGFR Calculation mL/min/1.73m2 (Non-) (test code = 3163620061) eGFR Calculation mL/min/1.73m2 () (test code = 2940159028) ALTAGRACIA (test code = ALTAGRACIA) Association of Glomerular Filtration Rate (GFR) and Staging of Kidney Disease* + --+ --+ ------+| GFR (mL/min/1.73 m2) ?| With Kidney Damage ?| ?Without Kidney Damage+ --------+ --------+ +| ?>90 ?| ?Stage one ?| ? Normal ?+ ---+ ---+ -------+| ?60-89 ?| ?Stage two ?| ? Decreased GFR ? + --+ --+ ------+| ?30-59 ?| ?Stage three ?| ? Stage three ? + --+ --+ ------+| ?15-29 ?| ?Stage four ? | ? Stage four ?+ ---+ ---+ -------+| ?<15 (or dialysis) ? ?| ?Stage five ? | ? Stage five ?+ ---+ ---+ -------+ *Each stage assumes the associated GFR level has been in effect for at least three months. ?Stages 1 to 5, with or without kidney disease, indicate chronic kidney disease. Notes: Determination of stages one and two (with eGFR >59mL/min/1.73 m2) requires estimation of kidney damage for at least three months as defined by structural or functional abnormalities of the kidney, manifested by either:Pathological abnormalities or Markers of kidney damage (including abnormalities in the composition of the blood or urine or abnormalities in imaging tests). Lab Interpretation Abnormal (test code = 89968-7) [facility] 07:01:00 Test Item Value Reference Range Interpretation Comments MAGNESIUM (test code = 7025703451) 2.1 mg/dL 1.7-2.4 Lab Interpretation (test code = Normal 86958-3) [facility] Keep checking till PTT < 45 sec 2020-05-27 06:44:00 Test Item Value Reference Range Interpretation Comments APTT Patient (test code >150 See_Comment HH [Au tomated message] = 3173-2) The system [employer] generated this result transmitted ref erence range: 26 - 36 Seconds. The reference range was not used to int erpret this result as normal/abnormal . Lab Interpretation (test Abnormal code = 31454-8) [facility] Test Item Value Reference Range Interpretation Comments APTT Patient (test code See_Comment H [Au tomated message] = 3173-2) The system [employer] generated this result transmitted ref erence range: 26 - 36 Seconds. The reference range was not used to int erpret this result as normal/abnormal . Lab Interpretation (test Abnormal code = 59949-8) [facility] Keep checking till PTT < 45 sec 2020-05-27 02:48:00 Test Item Value Reference Range Interpretation Comments APTT Patient (test code >150 See_Comment HH [Au tomated message] = 3173-2) The system [employer] generated this result transmitted ref erence range: 26 - 36 Seconds. The reference range was not used to int erpret this result as normal/abnormal . Lab Interpretation (test Abnormal code = 93116-6) [facility] GLUCOSE (AUTOMATED)2020-05-27 01:56:00 Test Item Value Reference Range Interpretation Comments POCT GLU (test code = 8191242465) 148 mg/dL 70-110 H Lab Interpretation (test code = Abnormal 73533-3) [facility] ACT LOW [id number] 23:50:00 Test Item Value Reference Range Interpretation Comments ACTLR (test code = See_Comment H [Automat ed message] 0462463319) The system [employer] generated this result transmitted ref erence range: 89 - 169 Seconds. The reference range was not used to int erpret this result as normal/abnormal . Lab Interpretation (test Abnormal code = 59254-6) [facility] ACT LOW [id number] 23:41:00 Test Item Value Reference Range Interpretation Comments ACTLR (test code = See_Comment H [Automat ed message] 9908023221) The system [employer] generated this result transmitted ref erence range: 89 - 169 Seconds. The reference range was not used to int erpret this result as normal/abnormal . Lab Interpretation (test Abnormal code = 49081-3) [facility] ACT LOW [id number] 23:07:00 Test Item Value Reference Range Interpretation Comments ACTLR (test code = See_Comment H [Automat ed message] 1122579940) The system [employer] generated this result transmitted ref erence range: 89 - 169 Seconds. The reference range was not used to int erpret this result as normal/abnormal . Lab Interpretation (test Abnormal code = 20867-7) [facility] ACT LOW [id number] 22:31:00 Test Item Value Reference Range Interpretation Comments ACTLR (test code = See_Comment H [Automat ed message] 4671793851) The system [employer] generated this result transmitted ref erence range: 89 - 169 Seconds. The reference range was not used to int erpret this result as normal/abnormal . Lab Interpretation (test Abnormal code = 55048-9) [facility] GLUCOSE (AUTOMATED)2020-05-26 21:20:00 Test Item Value Reference Range Interpretation Comments POCT GLU (test code = 3574623825) 135 mg/dL 70-110 H Lab Interpretation (test code = Abnormal 34438-9) [facility] GLUCOSE (AUTOMATED)2020-05-26 16:50:00 Test Item Value Reference Range Interpretation Comments POCT GLU (test code = 0809885686) 172 mg/dL 70-110 H Lab Interpretation (test code = Abnormal 78088-7) [facility] (for use with Heparin Practice Guideline). Note: Draw and Send all Lab STAT.2020-05-26 16:38:00 Test Item Value Reference Range Interpretation Comments APTT Patient (test code See_Comment H [Au tomated message] = 3173-2) The system [employer] generated this result transmitted ref erence range: 26 - 36 Seconds. The reference range was not used to int erpret this result as normal/abnormal . Lab Interpretation (test Abnormal code = 01271-7) [facility] (for use with Heparin Practice Guideline). Note: Draw and Send all Lab STAT.2020-05-26 08:52:00 Test Item Value Reference Range Interpretation Comments APTT Patient (test code >150 See_Comment HH [Au tomated message] = 3173-2) The system [employer] generated this result transmitted ref erence range: 26 - 36 Seconds. The reference range was not used to int erpret this result as normal/abnormal . Lab Interpretation (test Abnormal code = 03161-9) [facility] METABOLIC PANEL (NA, K, CL, CO2, GLUCOSE, BUN, CREATININE, CA)2020-05-26 08:45:00 Test Item Value Reference Range Interpretation Comments NA (test code = 134 mmol/L 135-145 L 9576514264) K (test code = 4.0 mmol/L 3.5-5 8969368888) CL (test code = 102 mmol/L 98-108 5502283348) CO2 TOTAL (test code = 28 mmol/L 23-31 6858234283) AGAP (test code = 2-16 8251905602) BUN (test code = 17 mg/dL 7-23 3651520235) GLUCOSE (test code = 131 mg/dL 70-110 H 1189009047) CREATININE (test code = 0.74 mg/dL 0.6-1.25 9401042282) CALCIUM (test code = 8.1 mg/dL 8.6-10.6 L 9761059367) eGFR Calculation mL/min/1.73m2 (Non-) (test code = 4349445223) eGFR Calculation mL/min/1.73m2 () (test code = 9999099778) ALTAGRACIA (test code = ALTAGRACIA) Association of Glomerular Filtration Rate (GFR) and Staging of Kidney Disease* + --+ --+ ------+| GFR (mL/min/1.73 m2) ?| With Kidney Damage ?| ?Without Kidney Damage+ --------+ --------+ +| ?>90 ?| ?Stage one ?| ? Normal ?+ ---+ ---+ -------+| ?60-89 ?| ?Stage two ?| ? Decreased GFR ? + --+ --+ ------+| ?30-59 ?| ?Stage three ?| ? Stage three ? + --+ --+ ------+| ?15-29 ?| ?Stage four ? | ? Stage four ?+ ---+ ---+ -------+| ?<15 (or dialysis) ? ?| ?Stage five ? | ? Stage five ?+ ---+ ---+ -------+ *Each stage assumes the associated GFR level has been in effect for at least three months. ?Stages 1 to 5, with or without kidney disease, indicate chronic kidney disease. Notes: Determination of stages one and two (with eGFR >59mL/min/1.73 m2) requires estimation of kidney damage for at least three months as defined by structural or functional abnormalities of the kidney, manifested by either:Pathological abnormalities or Markers of kidney damage (including abnormalities in the composition of the blood or urine or abnormalities in imaging tests). Lab Interpretation Abnormal (test code = 42776-4) [facility] 08[facility]45:00 Test Item Value Reference Range Interpretation Comments MAGNESIUM (test code = 9034887902) 1.9 mg/dL 1.7-2.4 Lab Interpretation (test code = Normal 34389-3) [facility]2020-05-26 01:46:00 Test Item Value Reference Range Interpretation Comments POCT GLU (test code = 1234003650) 138 mg/dL 70-110 H Lab Interpretation (test code = Abnormal 13892-7) [facility] (for use with Heparin Practice Guideline). Note: Draw and Send all Lab STAT.2020-05-26 00:24:00 Test Item Value Reference Range Interpretation Comments APTT Patient (test code >150 See_Comment HH [Au tomated message] = 3173-2) The system [employer] generated this result transmitted ref erence range: 26 - 36 Seconds. The reference range was not used to int erpret this result as normal/abnormal . Lab Interpretation (test Abnormal code = 05835-8) [facility] by [facility], [id number] 21:25:00 Test Item Value Reference Range Interpretation Comments MSSA Screen by PCR, Positive Negative A Nares (test code = 33750-9) MRSA/MSSA Positive? Yes No A (test code = 6099300653) ALTAGRACIA (test code = ALTAGRACIA) A positive test result does not necessarily indicate the presence of viable organism. Lab Interpretation (test Abnormal code = 77467-1) [facility] GLUCOSE (AUTOMATED)2020-05-25 21:15:00 Test Item Value Reference Range Interpretation Comments POCT GLU (test code = 9490556460) 177 mg/dL 70-110 H Lab Interpretation (test code = Abnormal 36497-0) [facility] GLUCOSE (AUTOMATED)2020-05-25 16:54:00 Test Item Value Reference Range Interpretation Comments POCT GLU (test code = 0114960891) 175 mg/dL 70-110 H Lab Interpretation (test code = Abnormal 40222-2) [facility] (for use with Heparin Practice Guideline). Note: Draw and Send all Lab STAT.2020-05-25 15:53:00 Test Item Value Reference Range Interpretation Comments APTT Patient (test code = See_Comment [ Automated message] 3173-2) The system [employer] generated this result transmitted ref erence range: 26 - 36 Seconds. The re ference range was not u sed to interpret this result as normal/abnor mal. Lab Interpretation (test Normal code = 65186-8) [facility] CenterPROTHROMBIN TIME / [id number] 14:29:00 Test Item Value Reference Range Interpretation Comments PROTIME PATIENT (test See_Comment [Auto mated message] code = 5964-2) The system [employer] generated this result transmitted ref erence range: 10.1 - 1 2.6 Seconds. The re ference range was not u sed to interpret this result as normal/abnor mal. INR (test code = 6301-6) Nor mal INR <1.1; Warfarin Therap eutic range 2.0 to 3. 0 or 2.5 to 3.5, dep ending upon the indica tions. Lab Interpretation (test Normal code = 41851-8) [facility]2020-05-25 12:57:00 Test Item Value Reference Range Interpretation Comments POCT GLU (test code = 7129925632) 140 mg/dL 70-110 H Lab Interpretation (test code = Abnormal 66726-5) [facility] (for use with Heparin Practice Guideline). Note: Draw and Send all Lab STAT.2020-05-25 12:26:00 Test Item Value Reference Range Interpretation Comments APTT Patient (test code See_Comment H [Au tomated message] = 3173-2) The system [employer] generated this result transmitted ref erence range: 26 - 36 Seconds. The reference range was not used to int erpret this result as normal/abnormal . Lab Interpretation (test Abnormal code = 96781-8) [facility] CenterTROPONIN [id number] 12:19:00 Test Item Value Reference Range Interpretation Comments TROPONIN I (test 0.012 ng/mL See_Comment [Automated code = 7728561008) message] The system which generated this result transmitted reference range : <=0.034. The reference range was not used to interpret this result as normal/abnormal . ALTAGRACIA (test code = Equal or Less than ALTAGRACIA) 0.034 ng/ml---Normal ?Note: Cardiac troponin begins to rise 3-4 hours after the onset of ischemia. Repeat in 4-6 hours if the sample was drawn within 3-4 hours of the onset of the symptom and found normal. Between 0.035 and 0.120 ng/mL--- Borderline. Questionable myocardial injury or necrosis ? ?Note: Serial measurement may be necessary to confirm or exclude the diagnosis of myocardial injury or necrosis; Clinical correlation (symptoms, EKGs, imaging studies, and others) required; Repeat in 4-6 hours if clinically indicated. ? Equal or Higher than 0.121 ng/mL---Abnormal. Myocardial Injury or Necrosis Likely ? Biotin has been reported to cause a negative bias, interpret results relative to patient's use of biotin. ? Lab Interpretation Normal (test code = 29696-6) [facility] (NA, K, CL, CO2, GLUCOSE, BUN, CREATININE, CA)2020-05-25 10:23:00 Test Item Value Reference Range Interpretation Comments NA (test code = 135 mmol/L 135-145 4213610203) K (test code = 4.5 mmol/L 3.5-5 0631459136) CL (test code = 99 mmol/L 98-108 7233715447) CO2 TOTAL (test code = 28 mmol/L 23-31 5017528037) AGAP (test code = 2-16 3753341937) BUN (test code = 20 mg/dL 7-23 6417463745) GLUCOSE (test code = 174 mg/dL 70-110 H 2950145758) CREATININE (test code = 0.94 mg/dL 0.6-1.25 4054822708) CALCIUM (test code = 8.5 mg/dL 8.6-10.6 L 3074910829) eGFR Calculation mL/min/1.73m2 (Non-) (test code = 5763046780) eGFR Calculation mL/min/1.73m2 () (test code = 7201707534) ALTAGRACIA (test code = ALTAGRACIA) Association of Glomerular Filtration Rate (GFR) and Staging of Kidney Disease* + --+ --+ ------+| GFR (mL/min/1.73 m2) ?| With Kidney Damage ?| ?Without Kidney Damage+ --------+ --------+ +| ?>90 ?| ?Stage one ?| ? Normal ?+ ---+ ---+ -------+| ?60-89 ?| ?Stage two ?| ? Decreased GFR ? + --+ --+ ------+| ?30-59 ?| ?Stage three ?| ? Stage three ? + --+ --+ ------+| ?15-29 ?| ?Stage four ? | ? Stage four ?+ ---+ ---+ -------+| ?<15 (or dialysis) ? ?| ?Stage five ? | ? Stage five ?+ ---+ ---+ -------+ *Each stage assumes the associated GFR level has been in effect for at least three months. ?Stages 1 to 5, with or without kidney disease, indicate chronic kidney disease. Notes: Determination of stages one and two (with eGFR >59mL/min/1.73 m2) requires estimation of kidney damage for at least three months as defined by structural or functional abnormalities of the kidney, manifested by either:Pathological abnormalities or Markers of kidney damage (including abnormalities in the composition of the blood or urine or abnormalities in imaging tests). Lab Interpretation Abnormal (test code = 67608-9) [facility] CenterMAGNESIUM2020-10-01 10:23:00 Test Item Value Reference Range Interpretation Comments MAGNESIUM (test code = 0732989977) 2.0 mg/dL 1.7-2.4 Lab Interpretation (test code = Normal 93542-1) [facility] GLUCOSE (AUTOMATED)2020-05-25 09:41:00 Test Item Value Reference Range Interpretation Comments POCT GLU (test code = 1299425393) 318 mg/dL 70-110 H Lab Interpretation (test code = Abnormal 88230-1) [facility] (for use with Heparin Practice Guideline). Note: Draw and Send all Lab STAT.2020-05-25 06:09:00 Test Item Value Reference Range Interpretation Comments APTT Patient (test code See_Comment H [Au tomated message] = 3173-2) The system [employer] generated this result transmitted ref erence range: 26 - 36 Seconds. The reference range was not used to int erpret this result as normal/abnormal . Lab Interpretation (test Abnormal code = 03648-6) [facility] GLUCOSE (AUTOMATED)2020-05-25 05:28:00 Test Item Value Reference Range Interpretation Comments POCT GLU (test code = 4083965731) 210 mg/dL 70-110 H Lab Interpretation (test code = Abnormal 04385-0) [facility] GLUCOSE (AUTOMATED)2020-05-24 23:42:00 Test Item Value Reference Range Interpretation Comments POCT GLU (test code = 2168568567) 200 mg/dL 70-110 H Lab Interpretation (test code = Abnormal 06735-2) [facility] CenterLOW-DENSITY LIPOPROTEIN, [id number] 22:50:00 Test Item Value Reference Range Interpretation Comments dLDL Chol (test code = 76161-2) 125 mg/dL <130 Lab Interpretation (test code = Normal 62287-9) [facility]2020-09-30 22:16:00 Test Item Value Reference Range Interpretation Comments APTT Patient (test See_Comment [Automat ed code = 3173-2) message] The system which generated this result transmitted reference range : 23 - 38 Seconds . The reference range was not used to interpr et this result as normal/abnormal . ALTAGRACIA (test code = ALTAGRACIA) The [facility] patient population mean normal value for aPTT is 30 seconds. Lab Interpretation Normal (test code = 32101-3) [facility] CenterLIPID PANEL (00639)(TOTAL CHOLESTEROL, TRIGLYCERIDES, HDL)2020-05-24 20:03:00 Test Item Value Reference Range Interpretation Comments CHOL (test code = 220 mg/dL 120-200 H 4333712046) HDL (test code = 39 mg/dL >40 L 5840143652) HDLC RATIO (test code = See_Comment H [Au tomated message] 3822162916) The system [employer] generated this result transmitted ref erence range: <=5.0. T he reference range was not used to int erpret this result as normal/abnormal . TRIG (test code = 587 mg/dL 30-170 H 1781931585) LDL CHOL (test code = Unable to calculate 20655-2) LDL due to elev ated triglyceride le ankur greater than 40 0 mg/dL. VLDL (test code = 117 mg/dL 5-60 H 5598791477) Lab Interpretation Abnormal (test code = 78399-6) [facility] CenterPO[facility])2020-05-24 17:05:00 Test Item Value Reference Range Interpretation Comments POCT GLU (test code = 4469054288) 193 mg/dL 70-110 H Lab Interpretation (test code = Abnormal 23948-3) [facility] CenteraPTT2020-09-30 15:28:00 Test Item Value Reference Range Interpretation Comments APTT Patient (test See_Comment [Automat ed code = 3173-2) message] The system which generated this result transmitted reference range : 23 - 38 Seconds . The reference range was not used to interpr et this result as normal/abnormal . ALTAGRACIA (test code = ALTAGRACIA) The [facility] patient population mean normal value for aPTT is 30 seconds. Lab Interpretation Normal (test code = 51117-7) [facility] GLUCOSE (AUTOMATED)2020-05-24 13:08:00 Test Item Value Reference Range Interpretation Comments POCT GLU (test code = 8394387934) 183 mg/dL 70-110 H Lab Interpretation (test code = Abnormal 06502-9) [facility] CenterTROPONIN [id number] 03:09:00 Test Item Value Reference Range Interpretation Comments TROPONIN I (test 0.005 ng/mL See_Comment [Automated code = 4393359624) message] The system which generated this result transmitted reference range : <=0.034. The reference range was not used to interpret this result as normal/abnormal . ALTAGRACIA (test code = Equal or Less than ALTAGRACIA) 0.034 ng/ml---Normal ?Note: Cardiac troponin begins to rise 3-4 hours after the onset of ischemia. Repeat in 4-6 hours if the sample was drawn within 3-4 hours of the onset of the symptom and found normal. Between 0.035 and 0.120 ng/mL--- Borderline. Questionable myocardial injury or necrosis ? ?Note: Serial measurement may be necessary to confirm or exclude the diagnosis of myocardial injury or necrosis; Clinical correlation (symptoms, EKGs, imaging studies, and others) required; Repeat in 4-6 hours if clinically indicated. ? Equal or Higher than 0.121 ng/mL---Abnormal. Myocardial Injury or Necrosis Likely ? Biotin has been reported to cause a negative bias, interpret results relative to patient's use of biotin. ? Lab Interpretation Normal (test code = 71747-1) [facility] GLUCOSE (AUTOMATED)2020-05-24 01:25:00 Test Item Value Reference Range Interpretation Comments POCT GLU (test code = 5943491469) 123 mg/dL 70-110 H Lab Interpretation (test code = Abnormal 45347-9) [facility] CenterTROPONIN [id number] 23:58:00 Test Item Value Reference Range Interpretation Comments TROPONIN I (test 0.003 ng/mL See_Comment [Automated code = 3006697030) message] The system which generated this result transmitted reference range : <=0.034. The reference range was not used to interpret this result as normal/abnormal . ALTAGRACIA (test code = Equal or Less than ALTAGRACIA) 0.034 ng/ml---Normal ?Note: Cardiac troponin begins to rise 3-4 hours after the onset of ischemia. Repeat in 4-6 hours if the sample was drawn within 3-4 hours of the onset of the symptom and found normal. Between 0.035 and 0.120 ng/mL--- Borderline. Questionable myocardial injury or necrosis ? ?Note: Serial measurement may be necessary to confirm or exclude the diagnosis of myocardial injury or necrosis; Clinical correlation (symptoms, EKGs, imaging studies, and others) required; Repeat in 4-6 hours if clinically indicated. ? Equal or Higher than 0.121 ng/mL---Abnormal. Myocardial Injury or Necrosis Likely ? Biotin has been reported to cause a negative bias, interpret results relative to patient's use of biotin. ? Lab Interpretation Normal (test code = 31935-6) [facility] CenterGLYCOSYLATED HEMOGLOBIN (A1C)2020-05-23 22:19:00 Test Item Value Reference Range Interpretation Comments HGB A1C (test code = 9.7 % 4-6 H 4548-4) ALTAGRACIA (test code = ALTAGRACIA) %A1C (NGSP) Interpretation (ADA)4.8-5.6 ? ? Normal or (Non-Diabetic Range)5.7-6.4 ? ? Increased Risk (Pre-Diabetic)>6.5 ?Diabetes Indicated Lab Interpretation Abnormal (test code = 29591-2) [facility] CenterCT CHEST PULMONARY [id number] 21:17:56HISTORY: Shortness of breath, rule out P.E. TECHNIQUE: Contrast-enhanced 64-mutidetector CT scan of the chest wascompleted with intravenous injection of ?Omnipaque-350 non ionic contrastmedium. Subsequently numerous sagittal, coronal and MIP reformations weregenerated. FINDINGS: Comparison is made with a recent CT scan of the chest date10/31/2019. Small portions of the thyroid gland included showed noabnormality. Tracheaand central bronchial airways appear normal. No acute pulmonary thromboembolism detected. Lungs are free of acuteinfiltrates. No pulmonary nodules seen. No pleural or pericardial effusion,pneumothorax or pneumomediastinum. No aortic aneurysm or dissection. Slightly prominent lymph n odes are seen in both right and left south,unchanged when compared with the previous study. Main pulmonary artery is measuring 3 cm today. Atherosclerosis is notedwith calcifications in LAD coronary artery, its branches, right coronary aswell as LCx coronary arteries. Degenerative changes noted with a rather large osteophytes along theventral vertebral margins at lower thoracic levels. CONCLUSIONS:1. No acute pulmonary thromboembolism.2. Triple vessel coronary atherosclerosis. [facility], [place] ResultsInft User - 05/23/2020 4:19 PM CDTHISTORY: Shortness of breath, rule out P.E.TECHNIQUE: Contrast-enhanced 64- mutidetector CT scan of the chest wascompleted with intravenous injection of Omnipaque-350non ionic contrastmedium. Subsequently numerous sagittal, coronal and MIP reformations weregenerated.FINDINGS: Comparison is made with a recent CT scan of the chest date10/31/2019.Small portions of the thyroid gland included showed no abnormality. Tracheaand central bronchial airways appear normal.No ac [place] pulmonary thromboembolism detected. Lungs are free of acuteinfiltrates. No pulmonary nodules seen. No pleural or pericardial effusion,pneumothorax or pneumomediastinum. No aortic aneurysm or dissection.Slightly prominent lymph nodes are seen in both right and left south,unchanged when compared withthe previous study.Main pulmonary artery is measuring 3 cm today. Atherosclerosis is notedwith calcifications in LAD coronary artery, its branches, right coronary aswell as LCx coronary arteries.Degenerative changes noted with a rather large osteophytes along theventral vertebral margins at lower thoracic levels.CONCLUSIONS:1. No acute pulmonary thromboembolism.2. Triple vessel coronary atherosclerosis.[facility] CenterUrinalysis2020-09-29 21:01:00 Test Item Value Reference Range Interpretation Comments APPEARANCE (test code = Clear Clear 7439407396) COLOR (test code = Straw Yellow A 3881737793) PH (test code = 4.8-8.0 9600005211) SP GRAVITY (test code = 1.003-1.030 0087976611) GLU U QUAL (test code = 500 mg/dL Normal A 3641731072) BLOOD (test code = Negative Negative 1990529307) KETONES (test code = Negative Negative 6577299002) PROTEIN (test code = Negative Negative 2887-8) UROBILIN (test code = Normal Normal 8617698346) BILIRUBIN (test code = Negative Negative 4362935275) NITRITE (test code = Negative Negative 9668540480) LEUK MARCI (test code = Negative Negative 8593888479) RBC/HPF (test code = <1 See_Comment [Autom ated message] 1845706536) The system [employer] generated this result transmit melissa reference range : 0 - 3 HPF. The refe rence range was not u sed to interpret th is result as normal/abnormal . WBC/HPF (test code = <1 See_Comment [Autom ated message] 5122336027) The system [employer] generated this result transmit melissa reference range : 0 - 5 HPF. The refe rence range was not u sed to interpret th is result as normal/abnormal . BACTERIA (test code = Negative Negative 0138735488) HYAL CAST (test code = See_Comment [Aut omated message] 2489307374) The system [employer] generated this result transmit melissa reference range : <=2 LPF. The refere nce range was not u sed to interpret th is result as normal/abnormal . Lab Interpretation (test Abnormal code = 87218-5) [facility] CenterCBC with [id number] 20:49:00 Test Item Value Reference Range Interpretation Comments WBC (test code = See_Comment [Automated 1790-2) message] The sy stem which generated this result transmitted reference range : 4.20 - 10.70 10*3/?L. The reference range was not used to interpret this result as normal/abnormal . RBC (test code = See_Comment [Automated 189-8) message] The sy stem which generated this result transmitted reference range : 4.26 - 5.52 10*6/?L. The reference range was not used to interpret this result as normal/abnormal . HGB (test code = 16.3 g/dL 12.2-16.4 718-7) HCT (test code = 46.5 % 38.4-49.3 4544-3) MCV (test code = 90.6 fL 81.7-95.6 787-2) MCH (test code = 31.8 pg 26.1-32.7 785-6) MCHC (test code = 35.1 g/dL 31.2-35 H 786-4) RDW-SD (test code = 39.4 fL 38.5-51.6 71879-7) RDW-CV (test code = 11.9 % 12.1-15.4 L 788-0) PLT (test code = See_Comment [Automated 777-3) message] The sy stem which generated this result transmitted reference range : 150 - 328 10*3/ ?L. The reference r cristin was not used to interpret this result as normal/abnormal . MPV (test code = 11.2 fL 9.8-13 26732-0) NRBC/100 WBC (test See_Comment [Automat ed code = 2148142984) message] The system which generated this result transmitted reference range : 0.0 - 10.0 /100 WBCs. The refer ence range was not u sed to interpret th is result as normal/abnormal . NRBC x10^3 (test code <0.01 See_Comment [Auto mated = 9265806658) message] The s ystem which generated this result transmitted reference range : 10*3/?L. The reference range was not used to interpret this result as normal/abnormal . GRAN MAT (NEUT) % 61.9 % (test code = 770-8) IMM GRAN % (test code 0.50 % = 7405776269) LYMPH % (test code = 27.4 % 736-9) MONO % (test code = 8.7 % 5905-5) EOS % (test code = 1.2 % 713-8) BASO % (test code = 0.3 % 706-2) GRAN MAT x10^3(ANC) 6.11 10*3/uL 1.99-6.95 (test code = 1412735957) IMM GRAN x10^3 (test 0.05 10*3/uL 0-0.06 code = 5320336529) LYMPH x10^3 (test code 2.71 10*3/uL 1.09-3.23 = 731-0) MONO x10^3 (test code 0.86 10*3/uL 0.36-1.02 = 742-7) EOS x10^3 (test code = 0.12 10*3/uL 0.06-0.53 711-2) BASO x10^3 (test code 0.03 10*3/uL 0.01-0.09 = 704-7) Lab Interpretation Abnormal (test code = 95922-7) [facility] CenterHepatic Function Panel (ALB, T.PRO, BILI T, BU/BC, ALT, AST, ALK PHOS)2020-05-23 20:42:00 Test Item Value Reference Range Interpretation Comments TOTAL BILI (test code = 1858300216) 0.4 mg/dL 0.1-1.1 BILI UNCON (test code = 0321403302) 0.6 mg/dL 0.1-1.1 BILI CONJ (test code = 0788180760) 0.0 mg/dL 0-0.3 T PROTEIN (test code = 3678533162) 7.2 g/dL 6.3-8.2 ALBUMIN (test code = 3383593156) 4.2 g/dL 3.5-5 ALK PHOS (test code = 7012337952) 83 U/L 34-122 ALTv (test code = 1742-6) 31 U/L 5-50 AST(SGOT) (test code = 5437317819) 27 U/L 13-40 Lab Interpretation (test code = Normal 63253-7) [facility] CenterTroponin [id number] 20:34:00 Test Item Value Reference Range Interpretation Comments TROPONIN I (test 0.003 ng/mL See_Comment [Automated code = 7554771263) message] The system which generated this result transmitted reference range : <=0.034. The reference range was not used to interpret this result as normal/abnormal . ALTAGRACIA (test code = Equal or Less than ALTAGRACIA) 0.034 ng/ml---Normal ?Note: Cardiac troponin begins to rise 3-4 hours after the onset of ischemia. Repeat in 4-6 hours if the sample was drawn within 3-4 hours of the onset of the symptom and found normal. Between 0.035 and 0.120 ng/mL--- Borderline. Questionable myocardial injury or necrosis ? ?Note: Serial measurement may be necessary to confirm or exclude the diagnosis of myocardial injury or necrosis; Clinical correlation (symptoms, EKGs, imaging studies, and others) required; Repeat in 4-6 hours if clinically indicated. ? Equal or Higher than 0.121 ng/mL---Abnormal. Myocardial Injury or Necrosis Likely ? Biotin has been reported to cause a negative bias, interpret results relative to patient's use of biotin. ? Lab Interpretation Normal (test code = 71889-7) [facility] CenterN-TERMINAL [id number] 20:31:00 Test Item Value Reference Range Interpretation Comments NT-proBNP (test code 407 pg/mL See_Comment H [Autom ated = 5888040605) message] The system which generated this result transmitted reference range : <=125. The reference range was not used to interpret this result as normal/abnormal . ALTAGRACIA (test code = ALTAGRACIA) Biotin has been reported to cause a negative bias, interpret results relative to patient's use of biotin. Lab Interpretation Abnormal (test code = 17407-9) [facility] CenterBasi Metabolic Panel (NA, K, CL, CO2, GLUCOSE, BUN, CREATININE, CA)2020-05-23 20:23:00 Test Item Value Reference Range Interpretation Comments NA (test code = 133 mmol/L 135-145 L 3220249270) K (test code = 4.8 mmol/L 3.5-5 2154884900) CL (test code = 98 mmol/L 98-108 1901540869) CO2 TOTAL (test code = 24 mmol/L 23-31 6198004778) AGAP (test code = 2-16 8522579386) BUN (test code = 19 mg/dL 7-23 7732270829) GLUCOSE (test code = 311 mg/dL 70-110 H 1495314551) CREATININE (test code = 0.72 mg/dL 0.6-1.25 1399635676) CALCIUM (test code = 9.5 mg/dL 8.6-10.6 9174846010) eGFR Calculation mL/min/1.73m2 (Non-) (test code = 3273588880) eGFR Calculation mL/min/1.73m2 () (test code = 8533200975) ALTAGRACIA (test code = ALTAGRACIA) Association of Glomerular Filtration Rate (GFR) and Staging of Kidney Disease* + --+ --+ ------+| GFR (mL/min/1.73 m2) ?| With Kidney Damage ?| ?Without Kidney Damage+ --------+ --------+ +| ?>90 ?| ?Stage one ?| ? Normal ?+ ---+ ---+ -------+| ?60-89 ?| ?Stage two ?| ? Decreased GFR ? + --+ --+ ------+| ?30-59 ?| ?Stage three ?| ? Stage three ? + --+ --+ ------+| ?15-29 ?| ?Stage four ? | ? Stage four ?+ ---+ ---+ -------+| ?<15 (or dialysis) ? ?| ?Stage five ? | ? Stage five ?+ ---+ ---+ -------+ *Each stage assumes the associated GFR level has been in effect for at least three months. ?Stages 1 to 5, with or without kidney disease, indicate chronic kidney disease. Notes: Determination of stages one and two (with eGFR >59mL/min/1.73 m2) requires estimation of kidney damage for at least three months as defined by structural or functional abnormalities of the kidney, manifested by either:Pathological abnormalities or Markers of kidney damage (including abnormalities in the composition of the blood or urine or abnormalities in imaging tests). Lab Interpretation Abnormal (test code = 55481-6) [facility] 1 [id number] 20:15:09HISTORY: SOB. TECHNIQUE: Portable AP erect view of the chest is obtained. Comparison madewith 05/15/2019 study. FINDINGS: No acute pneumonia. No pneumothorax or pleural effusion orpulmonary congestion detected. Cardiac size is within normal limits.Central pulmonary arteries are slightly dilated withoutfrank acuteinterstitial pulmonary edema. CONCLUSIONS: No signs of acute cardiopulmonary disease.[facility], Radiant Results Inft User - 05/23/2020 3:16 PM CDTHISTORY: SOB.TECHNIQUE: Portable AP erect view of the chest is obtained. Comparison madewith 05/15/2019 study.FINDINGS: No acute pneumonia. No pneumoth orax or pleural effusion orpulmonary congestion detected. Cardiac size is within normal limits.Central pulmonary arteries are slightly dilated without amilcar acuteinterstitial pulmonary edema.CONCLUSIONS: No signs of acute cardiopulmonary disease.[facility] NOW [facility]APID TESTING) 2020-05-23 20:14:00 Test Item Value Reference Range Interpretation Comments SARS-CoV-2 Rapid ID NOW Not Detected Not Detected (test code = 11492-5) ALTAGRACIA (test code = ALTAGRACIA) ID NOW COVID-19 Assay is an isothermal nucleic acid amplification test intended for the qualitative detection of nucleic acid from SARS-CoV-2 viral RNA in nasopharyngeal (ALUMINUM HYDROXIDE PROCESS OPERATOR) specimens. It is used under Emergency Use Authorization (EUA) by FDA. The limit of detection (LOD) of the assay is 125 Genome Equivalents/mL. A positive result is indicative of the presence of SARS-CoV-2 RNA. ?Clinical correlation with patient history and other diagnostic [...] for repeat patient testing if clinically indicated. Lab Interpretation Normal (test code = 85397-0) [facility])2019-10-31 20:39:00 Test Item Value Reference Range Interpretation Comments POCT GLU (test code = 3320515353) 213 mg/dL 70-110 H Lab Interpretation (test code = Abnormal 05604-0) [facility] CenterTroponin [id number] 19:29:00 Test Item Value Reference Range Interpretation Comments TROPONIN I (test 0.014 ng/mL See_Comment [Automated code = 0108667835) message] The system which generated this result transmitted reference range : <=0.034. The reference range was not used to interpret this result as normal/abnormal . ALTAGRACIA (test code = Equal or Less than ALTAGRACIA) 0.034 ng/ml---Normal ?Note: Cardiac troponin begins to rise 3-4 hours after the onset of ischemia. Repeat in 4-6 hours if the sample was drawn within 3-4 hours of the onset of the symptom and found normal. Between 0.035 and 0.120 ng/mL--- Borderline. Questionable myocardial injury or necrosis ? ?Note: Serial measurement may be necessary to confirm or exclude the diagnosis of myocardial injury or necrosis; Clinical correlation (symptoms, EKGs, imaging studies, and others) required; Repeat in 4-6 hours if clinically indicated. ? Equal or Higher than 0.121 ng/mL---Abnormal. Myocardial Injury or Necrosis Likely ? Biotin has been reported to cause a negative bias, interpret results relative to patient's use of biotin. ? Lab Interpretation Normal (test code = 19663-4) [facility] CenterUrinalysis2020-03-08 19:18:00 Test Item Value Reference Range Interpretation Comments APPEARANCE (test code = Clear Clear 1854928769) COLOR (test code = Yellow Yellow 1518806524) PH (test code = 4.8-8.0 6493983441) SP GRAVITY (test code = 1.003-1.030 9538501750) GLU U QUAL (test code = 500 mg/dL Normal A 2781928900) BLOOD (test code = Negative Negative 2689824121) KETONES (test code = 20 mg/dL Negative A 8572264874) PROTEIN (test code = 30 mg/dL Negative A 2887-8) UROBILIN (test code = Normal Normal 5417829479) BILIRUBIN (test code = Negative Negative 4560472592) NITRITE (test code = Negative Negative 4560378481) LEUK MARCI (test code = Negative Negative 2223657776) RBC/HPF (test code = <1 See_Comment [Autom ated message] 5833996563) The system [employer] generated this result transmit melissa reference range : 0 - 3 HPF. The refe rence range was not u sed to interpret th is result as normal/abnormal . WBC/HPF (test code = <1 See_Comment [Autom ated message] 5456851719) The system [employer] generated this result transmit melissa reference range : 0 - 5 HPF. The refe rence range was not u sed to interpret th is result as normal/abnormal . BACTERIA (test code = Negative Negative 0217861989) MUCOUS (test code = Slight Negative LPF A 8429828546) Lab Interpretation (test Abnormal code = 53895-8) [facility] Metabolic Panel (NA, K, CL, CO2, GLUCOSE, BUN, CREATININE, CA)2019-10-31 19:17:00 Test Item Value Reference Range Interpretation Comments NA (test code = 137 mmol/L 135-145 9879994713) K (test code = 3.9 mmol/L 3.5-5 6369551989) CL (test code = 103 mmol/L 98-108 8424067230) CO2 TOTAL (test code = 23 mmol/L 23-31 7161782048) AGAP (test code = 2-16 0851653327) BUN (test code = 9 mg/dL 7-23 8026927360) GLUCOSE (test code = 333 mg/dL 70-110 H 7745917060) CREATININE (test code = 0.70 mg/dL 0.6-1.25 5255712718) CALCIUM (test code = 8.6 mg/dL 8.6-10.6 3850549666) eGFR Calculation mL/min/1.73m2 (Non-) (test code = 4792119362) eGFR Calculation mL/min/1.73m2 () (test code = 5575834843) ALTAGRACIA (test code = ALTAGRACIA) Association of Glomerular Filtration Rate (GFR) and Staging of Kidney Disease* + --+ --+ ------+| GFR (mL/min/1.73 m2) ?| With Kidney Damage ?| ?Without Kidney Damage+ --------+ --------+ +| ?>90 ?| ?Stage one ?| ? Normal ?+ ---+ ---+ -------+| ?60-89 ?| ?Stage two ?| ? Decreased GFR ? + --+ --+ ------+| ?30-59 ?| ?Stage three ?| ? Stage three ? + --+ --+ ------+| ?15-29 ?| ?Stage four ? | ? Stage four ?+ ---+ ---+ -------+| ?<15 (or dialysis) ? ?| ?Stage five ? | ? Stage five ?+ ---+ ---+ -------+ *Each stage assumes the associated GFR level has been in effect for at least three months. ?Stages 1 to 5, with or without kidney disease, indicate chronic kidney disease. Notes: Determination of stages one and two (with eGFR >59mL/min/1.73 m2) requires estimation of kidney damage for at least three months as defined by structural or functional abnormalities of the kidney, manifested by either:Pathological abnormalities or Markers of kidney damage (including abnormalities in the composition of the blood or urine or abnormalities in imaging tests). Lab Interpretation Abnormal (test code = 91538-5) [facility] Center[facility] Function Panel (ALB, T.PRO, BILI T, BU/BC, ALT, AST, ALK PHOS)2019-10-31 19:17:00 Test Item Value Reference Range Interpretation Comments TOTAL BILI (test code = 1018014112) 0.4 mg/dL 0.1-1.1 BILI UNCON (test code = 3317926263) 0.2 mg/dL 0.1-1.1 BILI CONJ (test code = 5720655626) 0.0 mg/dL 0-0.3 T PROTEIN (test code = 1365809281) 6.7 g/dL 6.3-8.2 ALBUMIN (test code = 1671004401) 4.2 g/dL 3.5-5 ALK PHOS (test code = 7669267820) 88 U/L 34-122 ALTv (test code = 1742-6) 33 U/L 5-50 AST(SGOT) (test code = 2987654735) 24 U/L 13-40 Lab Interpretation (test code = Normal 62522-9) [facility] CenteraPTT2020-03-08 19:14:00 Test Item Value Reference Range Interpretation Comments APTT Patient (test See_Comment [Automat ed code = 3173-2) message] The system which generated this result transmitted reference range : 23 - 38 Seconds . The reference range was not used to interpr et this result as normal/abnormal . ALTAGRACIA (test code = ALTAGRACIA) The [facility] patient population mean normal value for aPTT is 30 seconds. Lab Interpretation Normal (test code = 31172-0) [facility] CenterProthrombin Time (PT) / [id number] 19:12:00 Test Item Value Reference Range Interpretation Comments PROTIME PATIENT (test See_Comment [Auto mated message] code = 5964-2) The system wh ich generated this result transmitted ref erence range: 12.0 - 1 4.7 Seconds. The re ference range was not u sed to interpret this result as normal/abnor mal. INR (test code = 6301-6) Nor mal INR <1.1; Warfarin Therap eutic range 2.0 to 3. 0 or 2.5 to 3.5, dep ending upon the indica tions. Lab Interpretation (test Normal code = 88939-9) [facility] CenterCBC WITH [id number] 19:04:00 Test Item Value Reference Range Interpretation Comments WBC (test code = See_Comment [Automated 4590-2) message] The sy stem which generated this result transmitted reference range : 4.20 - 10.70 10*3/?L. The reference range was not used to interpret this result as normal/abnormal . RBC (test code = See_Comment [Automated 689-8) message] The sy stem which generated this result transmitted reference range : 4.26 - 5.52 10*6/?L. The reference range was not used to interpret this result as normal/abnormal . HGB (test code = 15.1 g/dL 12.2-16.4 718-7) HCT (test code = 44.5 % 38.4-49.3 4544-3) MCV (test code = 92.5 fL 81.7-95.6 787-2) MCH (test code = 31.4 pg 26.1-32.7 785-6) MCHC (test code = 33.9 g/dL 31.2-35 786-4) RDW-SD (test code = 45.9 fL 38.5-51.6 61847-4) RDW-CV (test code = 13.5 % 12.1-15.4 788-0) PLT (test code = See_Comment [Automated 777-3) message] The sy stem which generated this result transmitted reference range : 150 - 328 10*3/ ?L. The reference r cristin was not used to interpret this result as normal/abnormal . MPV (test code = 9.6 fL 9.8-13 L 27347-7) NRBC/100 WBC (test See_Comment [Automat ed code = 5663180609) message] The system which generated this result transmitted reference range : 0.0 - 10.0 /100 WBCs. The refer ence range was not u sed to interpret th is result as normal/abnormal . NRBC x10^3 (test code <0.01 See_Comment [Auto mated = 3156448865) message] The s ystem which generated this result transmitted reference range : 10*3/?L. The reference range was not used to interpret this result as normal/abnormal . GRAN MAT (NEUT) % 55.6 % (test code = 770-8) IMM GRAN % (test code 1.20 % = 7506916550) LYMPH % (test code = 31.2 % 736-9) MONO % (test code = 10.4 % 5905-5) EOS % (test code = 1.2 % 713-8) BASO % (test code = 0.4 % 706-2) GRAN MAT x10^3(ANC) 4.75 10*3/uL 1.99-6.95 (test code = 6068011280) IMM GRAN x10^3 (test 0.10 10*3/uL 0-0.06 H code = 5055569893) LYMPH x10^3 (test code 2.66 10*3/uL 1.09-3.23 = 731-0) MONO x10^3 (test code 0.89 10*3/uL 0.36-1.02 = 742-7) EOS x10^3 (test code = 0.10 10*3/uL 0.06-0.53 711-2) BASO x10^3 (test code 0.03 10*3/uL 0.01-0.09 = 704-7) Lab Interpretation Abnormal (test code = 08598-3) [facility] (NA, K, CL, CO2, GLUCOSE, BUN, CREATININE, CA)2019-05-10 00:08:00 Test Item Value Reference Range Interpretation Comments NA (test code = 134 mmol/L 135-145 L 2198815378) K (test code = 3.9 mmol/L 3.5-5 8996216716) CL (test code = 100 mmol/L 98-108 1874779353) CO2 TOTAL (test code = 21 mmol/L 23-31 L 0182156946) AGAP (test code = 2-16 8858101675) BUN (test code = 21 mg/dL 7-23 0858291442) GLUCOSE (test code = 353 mg/dL 70-110 H 9629360479) CREATININE (test code = 0.61 mg/dL 0.6-1.25 2831679922) CALCIUM (test code = 9.1 mg/dL 8.6-10.6 0911258264) eGFR Calculation mL/min/1.73m2 (Non-) (test code = 8930632614) eGFR Calculation mL/min/1.73m2 () (test code = 8294910755) ALTAGRACIA (test code = ALTAGRACIA) Association of Glomerular Filtration Rate (GFR) and Staging of Kidney Disease*+ + + +| GFR (mL/min/1.73 m2)?| With Kidney Damage?|?Without Kidney Damage+ --------+ --------+ +|?>90?|?S tage one?|? Normal?+ ---------+ ---------+ +|?60-89? |?Stage two?|? Decreased GFR? + --+ --+ ------+|?30-59?|?Stage three?|? Stage three? + --+ --+ ------+|?15-29?|?Stage four? |? Stage four?+ -------+ -------+ +|?<15 (or dialysis)?|?Stage five? |? Stage five?+ -------+ -------+ +*Each stage assumes the associated GFR level has been in effect for at least three months.?Stages 1 to 5, with or without kidney disease, indicate chronic kidney disease.Notes: Determination of stages one and two (with eGFR >59mL/min/1.73 m2) requires estimation of kidney damage for at least three months as defined by structural or functional abnormalities of the kidney, manifested by either:Pathological abnormalities or Markers of kidney damage (including abnormalities in the composition of the blood or urine or abnormalities in imaging tests). Lab Interpretation Abnormal (test code = 94557-2) [facility] WITH [id number] 23:57:00 Test Item Value Reference Range Interpretation Comments WBC (test code = See_Comment H [Automated 6690-2) message] The system which generated this result transmit melissa reference range : 4.20 - 10.70 10*3/?L. The reference range was not used to interpret this result as normal/abnormal . RBC (test code = See_Comment [Automated 789-8) message] The system which generated this result transmit melissa reference range : 4.26 - 5.52 10*6/?L. The reference range was not used to interpret this result as normal/abnormal . HGB (test code = 15.2 g/dL 12.2-16.4 718-7) HCT (test code = 43.7 % 38.4-49.3 4544-3) MCV (test code = 89.0 fL 81.7-95.6 787-2) MCH (test code = 31.0 pg 26.1-32.7 785-6) MCHC (test code = 34.8 g/dL 31.2-35 786-4) RDW-SD (test code = 36.8 fL 38.5-51.6 L 09832-4) RDW-CV (test code = 11.4 % 12.1-15.4 L 788-0) PLT (test code = See_Comment [Automated 777-3) message] The system which generated this result transmit melissa reference range : 150 - 328 10*3/ ?L. The reference range was not u sed to interpret th is result as normal/abnormal . MPV (test code = 10.5 fL 9.8-13 54674-7) NRBC/100 WBC (test See_Comment [Automat ed code = 6268257783) message] The system which generated this result transmit melissa reference range : 0.0 - 10.0 /100 WBCs. The reference range was not used to interpret this result as normal/abnormal . NRBC x10^3 (test code <0.01 See_Comment [Auto mated = 6294928206) message] The system which generated this result transmit melissa reference range : 10*3/?L. The reference range was not used to interpret this result as normal/abnormal . GRAN MAT (NEUT) % 77.3 % (test code = 770-8) IMM GRAN % (test code 0.50 % = 0245183609) LYMPH % (test code = 13.6 % 736-9) MONO % (test code = 8.0 % 5905-5) EOS % (test code = 0.4 % 713-8) BASO % (test code = 0.2 % 706-2) GRAN MAT x10^3(ANC) 12.89 10*3/uL 1.99-6.95 H (test code = 2154283133) IMM GRAN x10^3 (test 0.09 10*3/uL 0-0.06 H code = 9353660726) LYMPH x10^3 (test code 2.27 10*3/uL 1.09-3.23 = 731-0) MONO x10^3 (test code 1.34 10*3/uL 0.36-1.02 H = 742-7) EOS x10^3 (test code = 0.07 10*3/uL 0.06-0.53 711-2) BASO x10^3 (test code 0.04 10*3/uL 0.01-0.09 = 704-7) Lab Interpretation Abnormal (test code = 66615-3) [facility]
[2022-01-06 03:04] LABS: Absolute Lymphocytes (CBC) 3.5 K/uL (0.7-4.9); Hematocrit 42.3 % (39.6-49.0); Lymphocytes % 35.6 % (15.3-44.8)
[2022-01-06 03:25] LABS: Potassium 4.2 mmol/L (3.5-5.1); Troponin High Sensitivity 24.8 pg/mL (<58.9)
[2022-01-06] MEDS ORDERED: MORPHINE 4 MG/ML SYR ONE (04:22)
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
--- NOTE | 2022-01-06 04:41 | EDPHYS ---
Physician Documentation [facility] Name: Brett Kramer Age: 41 yrs Sex: Male : 1980 Arrival Date: 01/06/2022 Time: 02:51 Bed 16 Private MD: ED Physician Cooper Lambert HPI: 01/06 06:05 This 41 yrs old Male presents to ER via EMS with complaints of chest pain. ms3 06:05 The patient or guardian reports chest pain that is located primarily in the substernal ms3 area. Onset: 1 hour(s) ago. The pain radiates to the left arm. Associated signs and symptoms: Pertinent negatives: diaphoresis, nausea, shortness of breath, vomiting. The chest pain is described as sharp. Duration: The patient or guardian reports multiple episodes, that are intermittent. Modifying factors: The symptoms are alleviated by nothing. the symptoms are aggravated by nothing. Severity of pain: At its worst the pain was severe in the emergency department the pain is unchanged is a 10 / 10. EMS care prior to arrival includes: aspirin, nitroglycerin, x 1, Fentanyl. Patient took 2 of his own SL nitroglycerin. Historical: - Allergies: 02:53 No Known Allergies; jb4 - PMHx: 02:53 Diabetes - NIDDM; Hypertension; PE; jb4 - PSHx: 02:53 Heart stents; jb4 - Immunization history:: Adult Immunizations unknown. - Social history:: Smoking status: unknown. ROS: 06:05 Constitutional: Negative for fever, and chills. Eyes: Negative for injury, pain, ms3 redness, and discharge, Neck: Negative for injury, pain, and swelling, Respiratory: Negative for shortness of breath, cough, wheezing, and pleuritic chest pain, Abdomen/GI: Negative for abdominal pain, nausea, vomiting, diarrhea, and constipation, MS/Extremity: Negative for injury and deformity, Skin: Negative for injury, rash, and discoloration. Exam: 02:46 ECG was reviewed by the Attending Physician. ms3 06:18 Constitutional: This is a well developed, well nourished patient who is awake, alert, ms3 and in no acute distress. Head/Face: Normocephalic, atraumatic. Neck: Trachea midline, no cervical lymphadenopathy. Supple, full range of motion without nuchal rigidity, or vertebral point tenderness. No Meningismus. Chest/axilla: Normal chest wall appearance and motion. Nontender with no deformity. Cardiovascular: Regular rate and rhythm with a normal S1 and S2. No gallops, murmurs, or rubs. Normal PMI, no JVD. No pulse deficits. Respiratory: Lungs have equal breath sounds bilaterally, clear to auscultation and percussion. No rales, rhonchi or wheezes noted. No increased work of breathing, no retractions or nasal flaring. Abdomen/GI: Soft, non-tender, with normal bowel sounds. No distension or tympany. No guarding or rebound. No evidence of tenderness throughout. Skin: Warm, dry with normal turgor. Normal color with no rashes, no lesions, and no evidence of cellulitis. Psych: Awake, alert, with orientation to person, place and time. Behavior, mood, and affect are within normal limits. Vital Signs: 03:03 BP 134 / 90; Pulse 88; Resp 14 S; Temp 98; Pulse Ox 99% on R/A; Weight 120.2 kg; Height ag7 5 ft. 9 in. (175.26 cm) (R); 04:00 BP 132 / 83; Pulse 83; Resp 19 S; Pulse Ox 94% on R/A; Pain 8/10; ag7 04:55 Pain 8/10; ag7 05:00 BP 137 / 78; Pulse 78; Pulse Ox 96% on R/A; ag7 06:00 BP 119 / 75; Pulse 72; Resp 19 S; Pulse Ox 95% on R/A; Pain 8/10; ag7 03:03 Body Mass Index 39.13 (120.20 kg, 175.26 cm) ag7 MDM: 02:46 Differential diagnosis: abnormal EKG, acute myocardial infarction. ms3 02:53 Patient medically screened. ms3 06:23 ED course: Received call from [facility] and patient with small bowel obstruction ms3 with free air.. 07:00 HEART Score: History: Slightly Suspicious (0), ECG: Non specific repolarization ms3 disturbance / LBTB / PM (1), Age: < or = 45 years (0), Risk Factors: > or = 3 Risk factors for atherosclerotic disease (2), [Hypertension] [DM]. Data reviewed: vital signs, nurses notes, lab test result(s), EKG, radiologic studies. Data interpreted:. Counseling: I had a detailed discussion with the patient and/or guardian regarding: the historical points, exam findings, and any diagnostic results supporting the discharge/admit diagnosis, lab results, radiology results, the need for further work-up and treatment in the hospital. 01/06 02:52 Order name: Basic Metabolic Panel; Complete Time: 03:52 ms3 01/06 02:52 Order name: CBC with Diff; Complete Time: 03:52 ms3 01/06 02:52 Order name: D-Dimer; Complete Time: 03:52 ms3 01/06 02:52 Order name: NT PRO-BNP; Complete Time: 03:52 ms3 01/06 02:52 Order name: Troponin HS; Complete Time: 03:52 ms3 01/06 03:19 Order name: Glucose, Ancillary Testing; Complete Time: 03:52 EDMS 01/06 02:52 Order name: XRAY Chest (1 view) ms3 01/06 02:52 Order name: EKG; Complete Time: 02:53 ms3 01/06 02:52 Order name: Cardiac monitoring; Complete Time: 02:58 ms3 01/06 02:52 Order name: EKG - Nurse/Tech; Complete Time: 02:57 ms3 01/06 02:52 Order name: IV Saline Lock; Complete Time: 02:57 ms3 01/06 07:50 Order name: Glucose, Ancillary Testing EDMS 01/06 02:52 Order name: Labs collected and sent; Complete Time: 02:57 ms3 01/06 02:52 Order name: O2 Per Protocol; Complete Time: 02:57 ms3 01/06 02:52 Order name: O2 Sat Monitoring; Complete Time: 02:58 ms3 EC:46 Rate is 87 beats/min. Rhythm is regular. QT interval is prolonged at 510 msec. Clinical ms3 impression: NSR w/ Non-specific ST/T Changes. Interpreted by me. Administered Medications: 04:22 Drug: morphine 4 mg {Note: RASS 0.} Route: IVP; Site: right antecubital; ag7 04:55 Follow up: Pain 8/10 Adult; Response: No adverse reaction; RASS: Alert and Calm (0) ag7 05:18 Drug: Lovenox (enoxaparin) 1 mg/kg Route: Sub-Q; Site: left lower abdomen; ag7 05:44 Follow up: Response: No adverse reaction ag7 Disposition Summary: 01/06/22 04:40 Hospitalization Ordered Hospitalization Status: Observation ms3 Provider: John oSlitario ms3 Condition: Stable ms3 Problem: new ms3 Symptoms: are unchanged ms3 Bed/Room Type: Standard ms3 Location: [facility] ER HOLD(01/06/22 05:07) cg Room Assignment: ERHOLD-(01/06/22 05:07) cg Diagnosis - Chest pain, unspecified ms3 Forms: - Medication Reconciliation Form ms3 - SBAR form ms3 Signatures: Dispatcher [employer] EDMS Deon Ramirez, JENNIFER-C FURNITURE MAKER-Cla1 Joyce Castañeda, RN RN cg Omega Mcgraw, RN RN jb4 Cooper Lambert DO DO ms3 Shazia Sanders RN RN ag7 Corrections: (The following items were deleted from the chart) 05:07 04:40 Telemetry/MedSurg (observation) ms3 cg 05:07 04:40 ms3 cg
--- NOTE | 2022-01-06 05:01 | P.HP ---
Certification for Inpatient Patient admitted to: Inpatient With expected LOS: >2 Midnights Patient will require the following post-hospital care: None Practitioner: I am a practitioner with admitting privileges, knowledge of patient current condition, hospital course, and medical plan of care. Services: Services provided to patient in accordance with Admission requirements found in Title 42 Section 412.3 of the Code of Federal Regulations <Deon Ramirez - Last Filed: 01/06/22 04:58> Patient History Date of Service: 01/06/22 Reason for admission: Unstable angina History of Present Illness: 41-year-old male with history of hypertension, CAD with previous stents, hyperlipidemia, diabetes type 2- [id number] presents to the ER with chest pain. Patient reports he does have chest pain fairly regularly over the course last 2 weeks has been increasing in frequency, duration and severity. Patient was evaluated the emergency department his initial troponin high- sensitivity was 24.[address] elevation chest x-ray was unremarkable other labs were unremarkable given significant past history including CAD ED provider wishes to admit her observation to rule ACS. - Past Medical/Surgical History Diabetic: Yes -: HTN -: Asthma -: pulmonary embolism -: NIDDM -: CAD -: right rotator cuff surgery -: right toe surgery jun 2018 -: Multiple stents Psychosocial/ Personal History: Patient lives at home with family - Family History Father -: Heart disease, Hypertension, Lung disease, Diabetes, Kidney disease Mother -: Heart disease, Hypertension, Other (see notes) Notes: pvd Brother -: Heart disease, Diabetes, Kidney disease Sister -: Other (see notes) Notes: back problems and thyroid problems - Social History Smoking Status: Never smoker Alcohol use: Yes CD- Drugs: No Caffeine use: Yes Place of Residence: Home <Deon Ramirez - Last Filed: 01/06/22 04:58> Date of Service: 01/06/22 <John Solitario - Last Filed: 01/06/22 16:44> Allergies No Known Allergies Allergy (Unverified 01/13/20 08:30) Home Medications: Gabapentin 600 mg PO TID 01/26/19 Hydrocodone Bit/Acetaminophen [[place] 10-325 Tablet] 1 tab PO Q6HP PRN 01/26/19 Metformin HCl [Glucophage] 1,000 mg PO BID 01/26/19 Metoprolol Succinate [Toprol Xl*] 50 mg PO BID 01/26/19 methocarbamoL [Robaxin*] 500 mg PO Q8H 01/26/19 Buprenorphine 1 each TD EVERY 7TH DAY 01/12/20 Review of Systems 10-point ROS is otherwise unremarkable Cardiovascular: Chest Pain <Deon Ramirez - Last Filed: 01/06/22 04:58> Physical Examination - Physical Exam General: Alert, In no apparent distress, Obese HEENT: Atraumatic, PERRLA, Mucous membr. moist/pink, EOMI, Sclerae nonicteric Neck: Supple, 2+ carotid pulse no bruit, No LAD, Without JVD or thyroid abnormality Respiratory: Clear to auscultation bilaterally, Normal air movement Cardiovascular: Regular rate/rhythm, Normal S1 S2 Gastrointestinal: Normal bowel sounds, No tenderness Musculoskeletal: No tenderness Integumentary: No rashes Neurological: Normal speech, Normal strength at 5/5 x4 extr, Normal tone, Normal affect - Studies Laboratory Data (last 24 hrs) 01/06/22 02:55: WBC 9.9, Hgb 14.4, Hct 42.3, Plt Count 252 01/06/22 02:55: Sodium 134 L, Potassium 4.2, BUN 19 H, Creatinine 0.82, Glucose 187 H <Deon Ramirez - Last Filed: 01/06/22 04:58> - Studies Laboratory Data (last 24 hrs) 01/06/22 02:55: WBC 9.9, Hgb 14.4, Hct 42.3, Plt Count 252 01/06/22 02:55: Sodium 134 L, Potassium 4.2, BUN 19 H, Creatinine 0.82, Glucose 187 H <John Solitario - Last Filed: 01/06/22 16:44> Assessment and Plan - Plan Assessment: Unstable angina history of CAD Diabetes type [id number] Hypertension Hyperlipidemia Plan: Unstable angina history of CAD: Cardiology consult in place cover with full dose Lovenox at the time being continue with aspirin, Plavix, statin, beta-isabel therapy. As needed morphine/nitro for pain monitor telemetry and trend troponins. Diabetes type [id number]: ACH S Accu-Chek, sliding scale insulin Hypertension: Obtain and continue medications Hyperlipidemia: Continue with atorvastatin DVT PPX: Lovenox Code status: Full Discharge Plan: Home Plan to discharge in: 48 Hours - Advance Directives Does patient have a Living Will: No Does patient have a Durable POA for Healthcare: No - Code Status/Comfort Care Code Status Assessed: Yes (Full code) Critical Care: No Time Spent Managing Pts Care (In Minutes): 55 <Deon Ramirez Bobby - Last Filed: 01/06/22 04:58> - Plan DISCHARGE UPDATE Patient was seen and examined earlier on morning rounds, shortly after admission. He reported improvement but continued chest pain. Pain has been more frequent and worse over the last almost 2 weeks. Concern for unstable angina Initial troponin negative. Later in the morning, patient's neighbor called him and alerted him that his back to the OR appeared to be open. The patient was concerned about his house, stated that he had nobody else could check it out for him. Patient decided to leave AGAINST MEDICAL ADVICE. I spent several minutes explaining the risks of leaving AGAINST MEDICAL ADVICE while he is dealing with what sounds like unstable angina, including even . Patient expressed understanding, but stated he unfortunately had to go check on his house and had nobody else that could. He was advised to return to ED if any worsening of his symptoms. 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 <John Solitario - Last Filed: 01/06/22 16:44>
[2022-01-06] MEDS ORDERED: ENOXAPARIN 100 MG/ML SYR SQ ONE (05:18)
[2022-01-06] MEDS ORDERED: ENOXAPARIN 30 MG/0.3 ML SQ ONE (05:19)
[2022-01-06] MEDS ORDERED: D50W 25 GM/50 ML SYRINGE IV PRN (07:11)
[2022-01-06] MEDS ORDERED: MORPHINE 2 MG/ML SYR IV PRN (07:11)
[2022-01-06] MEDS ORDERED: NITROGLYCERIN 0.4 MG/TAB SL PRN (07:11)
[2022-01-06] MEDS ORDERED: GLUCAGON 1 MG/VIAL IM PRN (07:11)
[2022-01-06] MEDS ORDERED: ONDANSETRON 4 MG/2 ML VIAL IV PRN (07:11)
[2022-01-06] MEDS ORDERED: D10W 125 ML IV PRN (07:21)
[2022-01-06] MEDS ORDERED: INSULIN -REGULAR HUMAN 50 UNIT/0.5 ML ML SQ SCH (07:30)
[2022-01-06] MEDS ORDERED: MORPHINE 2 MG/ML SYR ONE (07:58)
[2022-01-06 08:10] VITALS: BMI 39.1
[2022-01-06 08:13] VITALS: BP 138/99
[2022-01-06] MEDS ORDERED: CLOPIDOGREL 75 MG TABLET PO SCH (09:00)
[2022-01-06] MEDS ORDERED: ENOXAPARIN 40 MG/0.4 ML SQ SCH (09:00)
[2022-01-06] MEDS ORDERED: METOPROLOL TAR 50 MG TAB PO SCH (09:00)
[2022-01-06] MEDS ORDERED: ASPIRIN EC 81 MG TAB PO SCH (09:00)
[2022-01-06 10:14] VITALS: TEMP 98
[2022-01-06 10:20] VITALS: O2SAT 95
--- NOTE | 2022-01-06 14:45 | EKG ---
Test Date: 2022-01-06 Test Time: 02:46:34 Paint Stripper: ELISSA MEASUREMENT RESULTS: Intervals: Rate: 87 MI: 182 QRSD: 110 QT: 424 QTc: 510 [place]: P: 55 MI: 182 QRS: 134 T: -34 INTERPRETIVE STATEMENTS: Normal sinus rhythm Left posterior fascicular block ST & T wave abnormality, consider inferolateral ischemia Prolonged QT Abnormal ECG Compared to ECG 10/04/2020 15:10:45 Left posterior fascicular block now present Prolonged QT interval now present Sinus tachycardia no longer present ST (T wave) deviation still present Possible ischemia still present Electronically Signed On 01-06-22 14:44:46 CDT by Dario Orosco
[2022-01-06] MEDS ORDERED: Enoxaparin 120 MG/0.8 ML SYR SQ SCH (17:00)
[2022-01-06] MEDS ORDERED: ATORVASTATIN 40 MG TAB PO SCH (21:00)
--- NOTE | 2022-01-07 12:00 | RAD REPORT ---
EXAM DESCRIPTION: RAD - Chest Single View - 01/06/2022 3:49 am CLINICAL HISTORY: 1 years Male, CHEST PAIN COMPARISON: None FINDINGS: No focal lung consolidation. No pleural effusion. No pneumothorax. Cardiac and mediastinal silhouette is unremarkable. No acute osseous abnormality. Soft tissues are unremarkable. IMPRESSION: Decreased lung volumes. No focal lung consolidation. Electronically signed by: Omega Esposito DO 01/06/2022 4:26 AM CDT Due to temporary technical issues with the PACS/Fluency reporting system, reports are being signed by the in house radiologist without review as a courtesy to ensure prompt reporting. The interpreting r adiologist is fully responsible for the content of the report.
== END 2022-01-06 09:40 | disposition left against medical advice (07) | DRG 303 ==
LOC: ER 02:45 → ERHOLD 05:17
PROVIDERS: ADMIT Hospitalist; ATTEND Hospitalist
DX: I25.110 Atherosclerotic heart disease of native coronary artery with unstable angina pectoris (principal); E11.9 Type 2 diabetes mellitus without complications; I10 Essential (primary) hypertension; E78.5 Hyperlipidemia, unspecified; Z53.29 Procedure and treatment not carried out because of patient's decision for other reasons; Z95.5 Presence of coronary angioplasty implant and graft
CPT/HCPCS: 36415; 71045; 80048; 82947; 83880; 84484; 85025; 85379; 93005; 96372; 96374; 99283; J1650; J2270

== ENCOUNTER 2022-03-28 19:20 | Emergency (ER) | payer SELFPAY ==
--- OUTSIDE RECORDS SUMMARY | 2022-03-28 19:36 | XMS REPORT | Continuity of Care Document ---
:1980 Author Organization [facility] t Address [address] [place] [address] Care Team Providers Name Role Phone Master Omari Olson Primary Care Physician Julius Correa MD Attending Clinician Kayleen Tong MA Attending Clinician Unavailable JULIUS CORREA Attending Clinician Unavailable Michael FARIAS K Lillie Attending Clinician Dorinda ESCOBAR, Logan Attending Clinician Doctor Unassigned, [place] Attending Clinician Unavailable Jennie Ramirez RN Attending Clinician Corie Banerjee Attending Clinician Ilene Day Attending Clinician Lane ESCOBAR, Any Anderson Attending Clinician Patti ESCOBAR, John Attending Clinician Isamar Wells Attending Clinician Che ESCOBAR, Chantel Attending Clinician Maxwell ESCOBAR, Luis Angel Attending Clinician Gomez ESCOBAR, Florian Attending Clinician Héctor Khan Attending Clinician Brad ESCOBAR, Tareq Attending Clinician Klarissa ESCOBAR, Ray T Attending Clinician Vivian Young DO Attending Clinician VIVIAN YOUNG Attending Clinician Unavailable Harleen RN, Naya Colmenares Attending Clinician Trammell PAC, Nick S Attending Clinician Dorinda ESCOBAR, Logan Admitting Clinician Lane ESCOBAR, Any Anderson Admitting Clinician Che ESCOBAR, Chantel Admitting Clinician Gomez ESCOBAR, Florian Admitting Clinician VIVIAN YOUNG Admitting Clinician Unavailable Payers Payer Name Policy Type Policy Number Effective Date Expiration Date S ource Problems Condition Condition Condition Status Onset Resolution Last Treating Co mments Source Name Details Category Date Date Treatment Clinician Date Chest pain Chest pain Disease Active U nivers 1-08 ity of 00:00: [place] 00 Medical Branch Stable Stable Disease Active 2019-08 Univers angina angina 0-09 ity of 00:00: [place] 00 Medical Branch 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 0-09 ity of disease disease 00:00: [place] involving involving 00 Medi zaina algaaciq algaaciq Branch 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 Unstable Unstable Disease Active Unive rs angina angina 9-30 ity of 00:00: [place] 00 Medical Branch Type 2 Type 2 Disease Active Univers diabetes diabetes 930 ity of mellitus mellitus 00:00: [place] without without 00 Medical complicati complicati Br anch on, on, without without long-term long-term current current use of use of insulin insulin Family Family Disease Active Univers history of history of 9-30 it y of early CAD early CAD 00:[place] Essential Essential Disease Active Uni vers hypertensi hypertensi 9-30 it y of on on 00:00: [place] 00 Medical Branch Coronary Coronary Disease Active Unive rs artery artery 9-30 ity of calcificat calcificat 00:00[place] 00 Medical [place] Chest pain Chest pain Disease Active U nivers 05-23 ity of 00:00: [place] [facility] Atypical Atypical Disease Active Unive rs chest pain chest pain 05-23 it y of 00:00: [place] [facility] Orbital Orbital Disease Active Overview: Univ ers cellulitis cellulitis 05-10 Formattin ity of , right , right 00:00: g of this [place] 00 note Medical might be Branch different from the original. S/P Orbitotom y with Mass Excision OD Obesity Obesity Disease Active Univers (BMI (BMI 05-10 ity of 30-39.9) 30-39.9) 00:00: [place] 00 Medical Branch No known No known Disease Unive rs active active ity of problems problems [facility] Branch Allergies, Adverse Reactions, Alerts Allergy Allergy Status Severity Reaction(s) Onset Inactive Treating Comm ents Source Name Type Date Date Clinician NO KNOWN Drug Active Univers ALLERGIE Class ity of S [place] [facility] [place] Social History Social Habit Start Date Stop Date Quantity Comments Source History [facility] University o f Alcohol Frequency [place] M [facility] History [facility] University o f Alcohol Std Drinks [place] [facility] History [facility] o f Alcohol Binge [place] [facility] Exposure to Not sure [place] of SARS-CoV-2 (event) [facility] Branch Alcohol intake 2020-09-07 2020-09-07 Current drinker Unive rsity of 00:00:00 00:00:00 of alcohol [place] [facility] (finding) Branch Education 2020-05-23 2020-05-23 13 University of 00:00:00 00:00:00 [place] [facility] History [facility] 2020-05-23 2020-05-23 3 University o f Financial 00:00:00 00:00:00 [place] [facility] History [facility] Food 2020-05-23 2020-05-23 2 Univers ity of Worry 00:00:00 00:00:00 [place] [facility] History [facility] Food 2020-05-23 2020-05-23 2 Univers ity of Scarcity 00:00:00 00:00:00 [place] [facility] History SDTN 2020-05-23 2020-05-23 2 University o f Transport Med 00:00:00 00:00:00 [place] [facility] History [facility] 2020-05-23 2020-05-23 2 University o f Transport Non-Med 00:00:00 00:00:00 [facility] Branch Tobacco Comment 2020-05-23 2020-05-23 Quit 2 years ago Uni versity of 00:00:00 00:00:00 [facility] Tobacco use and 2019-05-10 2019-05-10 Former user Universi ty of exposure 00:00:00 00:00:00 [facility] Cigarettes smoked 2019-05-10 2019-05-10 Univers ity of current (pack per 00:00:00 00:00:00 [facility] ) - Reported Branch Alcohol Comment 2019-05-10 2019-05-10 social Universit y of 00:00:00 00:00:00 [facility] History of tobacco 1996-05-10 2018-07-08 Cigarette Smoker University of use 00:00:00 00:00:00 [facility] Sex Ass[birth year] At [birth year] Universit y of 00:00:00 00:00:00 [facility] Smoking Status Start Date Stop Date Source Former smoker 2019-05-10 00:00:00 2019-05-10 00:00:00 Universi ty of [facility] Current every day 2018-06-15 00:00:00 [facility] smoker [facility] Branch Medications Ordered Filled Start Stop Current Ordering Indication Dosage Frequency Signature Comments Components Source Medication Medication Date Date Medication? Clinician (SIG) Name Name amLODIPine Yes [id number] 5mg Take 1 Un [place] 5 mg tablet 1-13 tablet by ity of 00:00: mouth [place] 00 daily. Medical Branch atorvastati Yes [id number] 80mg Take 1 U nivers n 80 mg 1-13 tablet by ity of tablet 00:00: mouth [place] 00 daily. Medical Branch metoprolol Yes [id number] 100mg Take 1 U nivers tartrate 1-13 tablet by ity of 100 mg 00:00: mouth [place] tablet 00 every 12 Medical (twelve) Branch hours. nitroglycer Yes [id number] .4mg Place 1 Univers in 0.4 mg 1-13 tablet ity of sublingual 00:00: under the [place] tablet 00 tongue Medical every 5 Branch (five) minutes as needed for Chest pain. methocarbam 0 2020- No 500mg Take 500 Univers ol [...] 1 U nivers propionate 5-25 05-25 } [place] in ity of (FLONASE 18:35: 00:00 each [place] ALLERGY 00 :00 nostril Medical RELIEF) 50 daily. Branch mcg/actuati on nasal spray diclofenac 2020- No 50mg Take 50 mg Univers 50 mg EC 5-25 05-25 by mouth ity of tablet 18:35: 00:00 daily. [place] 00 :00 Medical Branch DULoxetine 2020- No 30mg Take 30 mg Univers (CYMBALTA) 5-25 05-25 by mouth ity of 30 mg 18:35: 00:00 daily. [place] capsule 00 :00 Medical Branch atorvastati 2020-0 Yes [id number] 80mg Take 1 U nivers n 80 mg 5-25 tablet by ity of tablet 00:00: mouth [place] 00 daily. Medical Branch clopidogreL 0 Yes [id number] 75mg Take 1 U nivers 75 mg 5-25 tablet by ity of tablet 00:00: mouth [place] 00 daily. Medical Branch fenofibrate 2020-0 Yes [id number] 67mg Take 1 U nivers micronized 5-25 capsule by ity of 67 mg 00:00: mouth [place] capsule 00 daily. Medical Branch amLODIPine 2020-0 Yes [id number] 5mg Take 1 Un [place] 5 mg tablet 5-25 tablet by ity of 00:00: mouth [place] 00 daily. Medical Branch aspirin 81 2020-0 Yes [id number] 81mg Take 1 Un [place] mg chewable 5-25 tablet by ity of tablet 00:00: mouth [place] 00 daily. Medical Branch isosorbide 2020-0 Yes [id number] 120mg Take 1 U nivers mononitrate 5-25 tablet by ity of 120 mg 24 00:00: mouth [place] hr tablet 00 daily. Medical Branch DULoxetine 2020-0 Yes [id number] 30mg Take 1 U nivers (CYMBALTA) 5-25 capsule by ity of 30 mg 00:00: mouth [place] capsule 00 daily. Medical Branch lisinopriL 2020-0 Yes [id number] 5mg Take 1 [facility] [place] 5 mg tablet 5-25 tablet by ity of 00:00: mouth [place] 00 daily. Medical Branch metoprolol 2020-0 Yes [id number] 100mg Take 1 U nivers tartrate 5-25 tablet by ity of 100 mg 00:00: mouth [place] tablet 00 every 12 Medical (twelve) Branch hours. nitroglycer 2020-[id number] 1 Univers in 0.4 mg 5-25 tablet ity of sublingual 00:00: under the [place] tablet 00 tongue Medical every 5 Branch (five) minutes as needed for Chest pain. atorvastati 0 Yes [id number] 80mg Take 1 U nivers n 80 mg 5-25 tablet by ity of tablet 00:00: mouth [place] 00 daily. Medical Branch clopidogreL 2020-0 Yes [id number] 75mg Take 1 U nivers 75 mg 5-25 tablet by ity of tablet 00:00: mouth [place] 00 daily. Medical Branch fenofibrate 2020-0 Yes [id number] 67mg Take 1 U nivers micronized 5-25 capsule by ity of 67 mg 00:00: mouth [place] capsule 00 daily. Medical Branch amLODIPine 2020-0 Yes [id number] 5mg Take 1 Un [place] 5 mg tablet 5-25 tablet by ity of 00:00: mouth [place] 00 daily. Medical Branch aspirin 81 2020-0 Yes [id number] 81mg Take 1 [place] mg chewable 5-25 tablet by ity of tablet 00:00: mouth [place] 00 daily. Medical Branch isosorbide 2020-0 Yes [id number] 120mg Take 1 U nivers mononitrate 5-25 tablet by ity of 120 mg 24 00:00: mouth [place] hr tablet 00 daily. Medical Branch DULoxetine 2020-0 Yes [id number] 30mg Take 1 U nivers (CYMBALTA) 5-25 capsule by ity of 30 mg 00:00: mouth [place] capsule 00 daily. Medical Branch lisinopriL 2020-0 Yes [id number] 5mg Take 1 Un [place] 5 mg tablet 5-25 tablet by ity of 00:00: mouth [place] 00 daily. Medical Branch metoprolol Yes [id number] 100mg Take 1 U nivers tartrate 5-25 tablet by ity of 100 mg 00:00: mouth [place] tablet 00 every 12 Medical (twelve) Branch hours. nitroglycer Yes [id number] .4mg Place 1 Univers in 0.4 mg 5-25 tablet ity of sublingual 00:00: under the [place] tablet 00 tongue Medical every 5 Branch (five) minutes as needed for Chest pain. clopidogreL Yes [id number] 75mg Take 1 U nivers 75 mg 5-25 tablet by ity of tablet 00:00: mouth [place] 00 daily. Medical Branch fenofibrate Yes [id number] 67mg Take 1 U nivers micronized 5-25 capsule by ity of 67 mg 00:00: mouth [place] capsule 00 daily. Medical Branch aspirin 81 0 Yes [id number] 81mg Take 1 Un [place] mg chewable 5-25 tablet by ity of tablet 00:00: mouth [place] 00 daily. Medical Branch isosorbide Yes [id number] 120mg Take 1 U nivers mononitrate 5-25 tablet by ity of 120 mg 24 00:00: mouth [place] hr tablet 00 daily. Medical Branch DULoxetine Yes [id number] 30mg Take 1 U nivers (CYMBALTA) 5-25 capsule by ity of 30 mg 00:00: mouth [place] capsule 00 daily. Medical Branch lisinopriL 0 Yes [id number] 5mg Take 1 Un [place] 5 mg tablet 5-25 tablet by ity of 00:00: mouth [place] 00 daily. Medical Branch atorvastati 2021- No [id number] 80mg Take 1 Univers n 80 mg 5-25 - tablet by ity of tablet 00:00: 00:00 mouth [place] 00 :00 daily. Medical Branch amLODIPine 2021- No [id number] 5mg Take 1 U nivers 5 mg tablet 5-25 - tablet by it y of 00:00: 00:00 mouth [place] 00 :00 daily. Medical Branch metoprolol 0 2021- No [id number] 100mg Take 1 Univers tartrate 5-25 - tablet by ity o f 100 mg 00:00: 00:00 mouth [place] tablet 00 :00 every 12 Medical (twelve) Branch hours. nitroglycer 2021- No [id number] .4mg Place 1 Univers in 0.4 mg 01-16 tablet ity of sublingual 00:00: 00:00 under the [place] tablet 00 :00 tongue Medical every 5 Branch (five) minutes as needed for Chest pain. sulfur 2020- No [id number] 5mL 5 mL, Unive rs hexafluorid 01-15 05-24 Intravenou i ty of e microsphr 17:00: 17:00 s, ONCE, 1 [place] (LUMASON) 00 :00 dose, Fri Medic al injection 01/15/21 at Br anch mL 1200, Routine
produce service team member approving Restricted medication : JULIUS CORREA isosorbide 0 Yes 120mg 120 mg, Uni vers mononitrate 24 Oral, ity of (IMDUR) 24 14:00: DAILY, [place] hr tablet 00 First dose Medi zaina 120 mg (after Branch last modificati on) on Fri01/15/21 at 0900, Until Discontinu ed, Routine lisinopriL 0 Yes 5mg 5 mg, Univer s (PRINIVIL,Z 24 Oral, ity of ESTRIL) 14:00: DAILY, [place] tablet 5 mg 00 First dose Me dical on Fri01/15/21 at 0900, Until Discontinu ed, Routine fenofibrate 0 Yes 67mg 67 mg, Univ ers micronized 24 Oral, ity of (LOFIBRA) 14:00: DAILY, [place] capsule 67 00 First dose Med ical mg on Fri01/15/21 at 0900, Until Discontinu ed, Routine DULoxetine 0 Yes 30mg 30 mg, Unive rs (CYMBALTA) 5-24 Oral, ity of capsule 30 14:00: DAILY, [place] mg 00 First dose Medical on Fri01/15/21 at 0900, Until Discontinu ed, Routine clopidogreL 2020-0 Yes 75mg 75 mg, Univ ers (PLAVIX) 24 Oral, ity of tablet 75 14:00: DAILY, [place] mg 00 First dose Medical on Fri01/15/21 at 0900, Until Discontinu ed, Routine amLODIPine Yes 5mg 5 mg, Univer s (NORVASC) 01-15 Oral, ity of tablet 5 mg 14:00: DAILY, [place] 00 First dose Medical on [facility] 01/15/21 at 0900, Until Discontinu ed, Routine aspirin Yes 81mg 81 mg, Univers chewable 01-15 Oral, ity of tablet 81 14:00: DAILY, [place] mg 00 First dose Medical on [facility] 01/15/21 at 0900, Until Discontinu ed, Routine metoprolol Yes 100mg 100 mg, Uni vers tartrate 01-15 Oral, ity of (LOPRESSOR) 01:00: Q12H, [place] tablet 100 00 First dose Med ical mg on [facility] 01/14/21 at 1999, Until Discontinu ed, Routine enoxaparin 2020- No 1mg/kg 120 mg Un l[place] (LOVENOX) 01-15 (rounded ity o f injection 01:00: 13:16 from 117.9 [place] 120 mg 00 :17 mg = 1 Medical mg/kg Branch ?117.9 kg), Subcutaneo , Q12H, First dose on [place] 01/14/21 at 1999, Until Discontinu ed, Routine famotidine No 20mg 20 mg, IV U nivers 20 mg in 01-15 Piggyback, i ty of 50 ml 01:00: 13:11 Q12H, [place] (PEPCID) 20 00 :02 First dose Me dical mg/50 mL on [facility] Piggyback 01/14/21 at 20 mg 1999, Until Discontinu ed, 50 mL ranolazine 2020- No 500mg 500 mg, Un [place] (RANEXA) 12 01-15 Oral, ity of hr tablet 00:45: 14:17 Q12H, [place] 500 mg 00 :03 First dose Medical (after Branch last modificati on) on [place] 01/14/21 at 1945, Until Discontinu ed, Routine metoprolol 2020- No 50mg 50 mg, Univ ers tartrate 01-15 Oral, ity of (LOPRESSOR) 00:45: 23:36 ONCE, 1 [place] tablet 50 00 :00 dose, [place] Medic al mg 01/14/21 at Branch 1945, Routine atorvastati Yes 80mg 80 mg, Univ ers n (LIPITOR) 01-15 Oral, ity of tablet 80 00:30: DAILY, [place] mg 00 First dose Medical on [facility] 01/14/21 at 1930, Until Discontinu ed, Routine nitroglycer 2020- No .5[in_u 0.5 Inch, Univers in (NITROL) 01-15 05-24 s] Transderma i ty of 2 % 00:28: 03:07 l (Apply [place] ointment 00 :00 To Skin), Medica l 0.5 Inch ONCE, 1 Branch dose, [place] 01/14/21 at 1930, Routine hydralAZINE Yes 10mg 10 mg, Univ ers (APRESOLINE 01-15 Slow IV ity o f ) injection 00:01: Push, [place] 10 mg 27 Q4HPRN, Medical Starting Branch [place] 01/14/21 at 1901, Until Discontinu ed, Routine, sbp > 160 or dbp > 100
Ind ication: Hypertensi ve Emergency ondansetron 2020- No 4mg 4 mg, Slow Univers (ZOFRAN 01-15 IV Push, ity of (PF)) 00:00: 23:16 ONCE, 1 [place] injection 4 00 :00 dose, [place] Med ical mg 01/14/21 at Branch 1900, RADHA morpHINE 2020- No 4mg 4 mg, Slow Un lizbeth injection 4 01-15 IV Push, ity of mg 00:00: 23:15 ONCE, 1 [place] 00 :00 dose, [facility] 01/14/21 at Branch 1900, STAT Sliding 2020-0 Yes Subcutaneo Univ ers Scale 01-14 us, Q4H, ity of Insulin - 23:45: First dose [place] Lispro 00 on [facility] (HumaLOG) + 01/14/21 at Br anch Fsbg 1845, Testing Until Discontinu ed, Routine glucagon Yes 1mg 1 mg, Univers (GLUCAGEN 01-14 Intramuscu ity of DIAGNOSTIC 23:41: lar, PRN, [place] KIT) 22 Starting Medical injection 1 [place] [facility] mg 01/14/21 at 1841, Until Discontinu ed, RADHA, Blood Glucose < or = 70 mg/dL and patient is unable to swallow or has mental changes. dextrose 50 Yes 25mL 25 mL, Univ ers % in water 01-14 Slow IV ity of (D50W) 23:41: Push, PRN, [place] injection 22 Starting Medica l 25 mL [place] [facility] 01/14/21 at 1841, Until Discontinu ed, RADHA, Blood Glucose < or = 70 mg/dL and patient is unable to swallow or has mental status changes. morpHINE 2020- No 4mg 4 mg, Slow Un [place] injection 4 01-1424 IV Push, ity of mg 23:40: 23:39 [...] 01-14 Oral, ity of (TYLENOL) 23:40: Q6HPRN, [place] tablet 650 25 Starting Medic al mg [place] [facility] 01/14/21 at 1840, Until Discontinu ed, Routine, Pain (scale 1-3) acetaminoph 2020- No 1000mg 1,000 mg, Univers en 01-14 Oral, ity of (TYLENOL) 23:30: 22:31 ONCE, 1 [place] tablet 00 :00 dose, [place] [facility] 1,000 mg 01/14/21 at [facility] h 1830, RADHA nitroglycer 2020- No .4mg 0.4 mg, Un l[place] in 01-14 Sublingual ity of (NITROSTAT) 23:30: 22:13 , ONCE, 1 [place] sublingual 00 :00 dose, [place] Medi zaina tablet 0.4 01/14/21 at [facility] mg 1830, RADHA aspirin 2020- No 324mg 324 mg, Unive rs chewable 01-14 Oral, ity of tablet 324 23:30: 22:21 ONCE, 1 [place] as mg 00 :00 dose, [place] Medical 01/14/21 at [place] 1830, Routine maalox:diph 2020- No 15mL 15 mL, Uni vers enhydrAMINE 01-14 Oral, ity of :lidocaine 22:30: 23:54 ONCE, 1 [place] as 2 % viscous 00 :00 dose, [place] Med ical 1:1:1 01/14/21 at [place] (FIRST-MOUT 1730, RADHA HWASH BLM) oral suspension 15 mL nitroglycer Yes .4mg 0.4 mg, Uni vers in 01-14 Sublingual ity of (NITROSTAT) 22:26: , Q5MIN [place] as sublingual 23 PRN, Medical tablet 0.4 Starting Branc h mg [place] 01/14/21 at 1726, Until Discontinu ed, RADHA, Chest pain clopidogreL Yes [id number] 75mg Take 1 U nivers 75 mg 4-27 tablet by ity of tablet 00:00: mouth [place] 00 daily. Medical Branch clopidogreL Yes [id number] 75mg Take 1 U nivers 75 mg 4-27 tablet by ity of tablet 00:00: mouth [place] 00 daily. Medical Branch clopidogreL Yes [id number] 75mg Take 1 U nivers 75 mg 4-27 tablet by ity of tablet 00:00: mouth [place] 00 daily. Medical Branch clopidogreL 2020- No [id number] 75mg Take 1 Univers 75 mg 4-27 05-25 tablet by ity of tablet 00:00: 00:00 mouth [place] 00 :00 daily. Medical Branch amLODIPine Yes [id number] 5mg Take 1 Un [place] 5 mg tablet 1-17 tablet by ity of 00:00: mouth [place] 00 daily. Medical Branch lisinopriL 2020-0 Yes [id number] 5mg Take 1 Un [place] 5 mg tablet 1-17 tablet by ity of 00:00: mouth [place] 00 daily. Medical Branch pantoprazol 2020-0 Yes [id number] 40mg Take 1 U nivers e 40 mg EC 1-17 tablet by ity of tablet 00:00: mouth [place] 00 daily. Medical Branch amLODIPine 2020-0 Yes [id number] 5mg Take 1 Un [place] 5 mg tablet 1-17 tablet by ity of 00:00: mouth [place] 00 daily. Medical Branch lisinopriL 2020-0 Yes [id number] 5mg Take 1 Un [place] 5 mg tablet 1-17 tablet by ity of 00:00: mouth [place] 00 daily. Medical Branch pantoprazol 0 Yes [id number] 40mg Take 1 U nivers e 40 mg EC 1-17 tablet by ity of tablet 00:00: mouth [place] 00 daily. Medical Branch amLODIPine 2020-0 Yes [id number] 5mg Take 1 [place] 5 mg tablet 1-17 tablet by ity of 00:00: mouth [place] 00 daily. Medical Branch lisinopriL 0 Yes [id number] 5mg Take 1 Un [place] 5 mg tablet 1-17 tablet by ity of 00:00: mouth [place] 00 daily. Medical Branch pantoprazol 2020-0 Yes [id number] 40mg Take 1 U nivers e 40 mg EC 1-17 tablet by ity of tablet 00:00: mouth [place] 00 daily. Medical Branch amLODIPine 2020-0 Yes [id number] 5mg Take 1 Un [place] 5 mg tablet 1-17 tablet by ity of 00:00: mouth [place] 00 daily. Medical Branch lisinopriL 2020-0 Yes [id number] 5mg Take 1 Un [place] 5 mg tablet 1-17 tablet by ity of 00:00: mouth [place] 00 daily. Medical Branch pantoprazol 2020-0 Yes [id number] 40mg Take 1 U nivers e 40 mg EC 1-17 tablet by ity of tablet 00:00: mouth [place] 00 daily. Medical Branch amLODIPine 2020-0 Yes [id number] 5mg Take 1 Un [place] 5 mg tablet 1-17 tablet by ity of 00:00: mouth [place] 00 daily. Medical Branch lisinopriL 2020-0 Yes [id number] 5mg Take 1 Un [place] 5 mg tablet 1-17 tablet by ity of 00:00: mouth [place] 00 daily. Medical Branch pantoprazol 0 Yes [id number] 40mg Take 1 U nivers e 40 mg EC 1-17 tablet by ity of tablet 00:00: mouth [place] 00 daily. Medical Branch amLODIPine 0 Yes [id number] 5mg Take 1 Un [place] 5 mg tablet 1-17 tablet by ity of 00:00: mouth [place] 00 daily. Medical Branch lisinopriL 0 Yes [id number] 5mg Take 1 Un [place] 5 mg tablet 1-17 tablet by ity of 00:00: mouth [place] 00 daily. Medical Branch pantoprazol 0 Yes [id number] 40mg Take 1 U nivers e 40 mg EC 1-17 tablet by ity of tablet 00:00: mouth [place] 00 daily. Medical Branch amLODIPine 0 Yes [id number] 5mg Take 1 Un [place] 5 mg tablet 1-17 tablet by ity of 00:00: mouth [place] 00 daily. Medical Branch lisinopriL 0 Yes [id number] 5mg Take 1 Un [place] 5 mg tablet 1-17 tablet by ity of 00:00: mouth [place] 00 daily. Medical Branch pantoprazol 0 Yes [id number] 40mg Take 1 U nivers e 40 mg EC 1-17 tablet by ity of tablet 00:00: mouth [place] 00 daily. Medical Branch amLODIPine 0 Yes [id number] 5mg Take 1 Un [place] 5 mg tablet 1-17 tablet by ity of 00:00: mouth [place] 00 daily. Medical Branch lisinopriL 0 Yes [id number] 5mg Take 1 Un [place] 5 mg tablet 1-17 tablet by ity of 00:00: mouth [place] 00 daily. Medical Branch pantoprazol 0 Yes [id number] 40mg Take 1 U nivers e 40 mg EC 1-17 tablet by ity of tablet 00:00: mouth [place] 00 daily. Medical Branch amLODIPine 0 2020- No [id number] 5mg Take 1 U nivers 5 mg tablet 1-17 05-25 tablet by it y of 00:00: 00:00 mouth [place] 00 :00 daily. Medical Branch lisinopriL 2020-0 2021- No [id number] 5mg Take 1 U nivers 5 mg tablet 09-10-25 tablet by it y of 00:00: 00:00 mouth [place] 00 :00 daily. Medical Branch pantoprazol 2020- No [id number] 40mg Take 1 Univers e 40 mg EC 09-10 05-25 tablet by ity of tablet 00:00: 00:00 mouth [place] 00 :00 daily. Medical Branch gabapentin Yes 600mg 600 mg, Uni vers (NEURONTIN) 1-16 Oral, TID, it y of tablet 600 20:00: First dose [place] mg 00 (after Medical last Branch modificati on) on 09/09/20 at 1400, Until Discontinu ed, Routine methocarbam Yes 500mg Take 500 U nivers ol 1-16 mg by ity of (ROBAXIN) 18:28: mouth 2 [place] 500 mg (two) Medical tablet times Branch daily. metFORMIN Yes 1000mg Take 1,000 Univers 1,000 mg 1-16 mg by ity of tablet 18:28: mouth 2 [place] (two) Medical times Branch daily with meals. fluticasone Yes 1{spray Use 1 Un [place] propionate 1-16 } [place] in ity o f (FLONASE 18:28: each [place] ALLERGY nostril Medical RELIEF) 50 daily. Branch mcg/actuati on nasal spray diclofenac Yes 50mg Take 50 mg U nivers 50 mg EC 1-16 by mouth ity of tablet 18:28: daily. [place] [facility] Branch DULoxetine Yes 30mg Take 30 mg U nivers (CYMBALTA) 1-16 by mouth ity o f 30 mg 18:28: daily. [place] capsule [facility] Branch methocarbam Yes 500mg Take 500 U nivers ol 1-16 mg by ity of (ROBAXIN) 18:28: mouth 2 [place] 500 mg (two) Medical tablet times Branch daily. metFORMIN Yes 1000mg Take 1,000 Univers 1,000 mg 1-16 mg by ity of tablet 18:28: mouth 2 [place] (two) Medical times Branch daily with meals. fluticasone Yes 1{spray Use 1 Un [place] propionate 1-16 } [place] in ity o f (FLONASE 18:28: each [place] ALLERGY nostril Medical RELIEF) 50 daily. Branch mcg/actuati on nasal spray diclofenac Yes 50mg Take 50 mg U nivers 50 mg EC 1-16 by mouth ity of tablet 18:28: daily. [place] [facility] DULoxetine Yes 30mg Take 30 mg U nivers (CYMBALTA) 1-16 by mouth ity o f 30 mg 18:28: daily. [place] capsule Medical Branch methocarbam Yes 500mg Take [...] Use 1 Un [place] propionate 1-16 } [place] in ity o f (FLONASE 18:28: each [place] ALLERGY 01 nostril Medical RELIEF) 50 daily. Branch mcg/actuati on nasal spray diclofenac Yes 50mg Take 50 mg U nivers 50 mg EC 1-16 by mouth ity of tablet 18:28: daily. [place] [facility] Branch DULoxetine Yes 30mg Take 30 mg U nivers (CYMBALTA) 1-16 by mouth ity o f 30 mg 18:28: daily. [place] capsule [facility] Branch methocarbam Yes 500mg Take 500 U nivers ol 1-16 mg by ity of (ROBAXIN) 18:28: mouth 2 [place] 500 mg (two) Medical tablet times Branch daily. metFORMIN Yes 1000mg Take 1,000 Univers 1,000 mg 1-16 mg by ity of tablet 18:28: mouth 2 [place] (two) Medical times Branch daily with meals. fluticasone 0 Yes 1{spray Use 1 Un [place] propionate 1-16 } [place] in ity o f (FLONASE 18:28: each [place] ALLERGY 01 nostril Medical RELIEF) 50 daily. Branch mcg/actuati on nasal spray diclofenac 0 Yes 50mg Take 50 mg U nivers 50 mg EC 1-16 by mouth ity of tablet 18:28: daily. [address] DULoxetine 0 Yes 30mg Take 30 mg U nivers (CYMBALTA) 1-16 by mouth ity o f 30 mg 18:28: daily. [place] capsule [address] [place] [address] methocarbam 0 Yes 500mg Take 500 U nivers ol 1-16 mg by ity of (ROBAXIN) 18:28: mouth 2 [place] 500 mg (two) Medical tablet times Branch daily. metFORMIN 0 Yes 1000mg Take 1,000 [facility] 1,000 mg 1-16 mg by ity of tablet 18:28: mouth 2 [place] (two) Medical times Branch daily with meals. fluticasone 0 Yes 1{spray Use 1 [facility] [place] propionate 1-16 } [place] in ity o f (FLONASE 18:28: each [place] ALLERGY nostril Medical RELIEF) 50 daily. Branch mcg/actuati on nasal spray diclofenac Yes 50mg Take 50 mg U nivers 50 mg EC 1-16 by mouth ity of tablet 18:28: daily. [address] DULoxetine Yes 30mg Take 30 mg U nivers (CYMBALTA) 1-16 by mouth ity o f 30 mg 18:28: daily. [place] capsule [address] [place] [address] methocarbam Yes 500mg Take 500 U nivers ol 1-16 mg by ity of (ROBAXIN) 18:28: mouth 2 [place] 500 mg (two) Medical tablet times Branch daily. metFORMIN 0 Yes 1000mg Take 1,000 [facility] 1,000 mg 1-16 mg by ity of tablet 18:28: mouth 2 [place] [address] (two) Medical times Branch daily with meals. fluticasone 2020-0 Yes 1{spray Use 1 [place] propionate 1-16 } [place] in ity o f (FLONASE 18:28: each [place] ALLERGY nostril Medical RELIEF) 50 daily. Branch mcg/actuati on nasal spray diclofenac 0 Yes 50mg Take 50 mg U nivers 50 mg EC 1-16 by mouth ity of tablet 18:28: daily. [address] DULoxetine 0 Yes 30mg Take 30 mg U nivers (CYMBALTA) 1-16 by mouth ity o f 30 mg 18:28: daily. [place] capsule Medical Branch methocarbam Yes 500mg Take [...] Use 1 [facility] [place] propionate 1-16 } [place] in ity o f (FLONASE 18:28: each [place] ALLERGY nostril Medical RELIEF) 50 daily. Branch mcg/actuati on nasal spray diclofenac Yes 50mg Take 50 mg U nivers 50 mg EC 1-16 by mouth ity of tablet 18:28: daily. [address] DULoxetine Yes 30mg Take 30 mg U nivers (CYMBALTA) 1-16 by mouth ity o f 30 mg 18:28: daily. [facility] [place] [facility] methocarbam Yes 500mg Take 500 U nivers ol 1-16 mg by ity of (ROBAXIN) 18:28: mouth 2 [place] 500 mg (two) Medical tablet times Branch daily. metFORMIN Yes 1000mg Take 1,000 [facility] 1,000 mg 1-16 mg by ity of tablet 18:28: mouth 2 [place] (two) Medical times Branch daily with meals. fluticasone Yes 1{spray Use 1 [place] propionate 1-16 } [place] in ity o f (FLONASE 18:28: each [place] ALLERGY nostril Medical RELIEF) 50 daily. Branch mcg/actuati on nasal spray diclofenac 0 Yes 50mg Take 50 mg U nivers 50 mg EC 1-16 by mouth ity of tablet 18:28: daily. [address] DULoxetine 0 Yes 30mg Take 30 mg U nivers (CYMBALTA) 1-16 by mouth ity o f 30 mg 18:28: daily. [address] Branch metoprolol 2020-0 2021- No 100mg Take 100 U nivers succinate 1-16 01-16 mg by ity of XL 100 mg 15:17: 00:00 mouth 2 [place] 24 hr 31 :00 (two) Medical tablet times Branch daily. heparin 2020-0 Yes 5000U 5,000 Univers (porcine) 1-16 Units, ity of injection 02:00: Subcutaneo [place] 5,000 Units 00 us, Q12H, Med ical First dose Branch on Fri09/08/20 at 2000, Until Discontinu ed, Routine metoprolol 2020-0 Yes [id number] 100mg Take 1 U nivers tartrate 1-16 tablet by ity of 100 mg 00:00: mouth [place] tablet 00 every 12 Medical (twelve) Branch hours. ranolazine 2020-0 Yes [id number] 500mg Take 1 U nivers 500 mg 12 1-16 tablet by ity o f hr tablet 00:00: mouth [place] 00 every 12 Medical (twelve) Branch hours. metoprolol 2020-0 Yes [id number] 100mg Take 1 U nivers tartrate 1-16 tablet by ity of 100 mg 00:00: mouth [place] tablet 00 every 12 Medical (twelve) Branch hours. ranolazine 2020-0 Yes [id number] 500mg Take 1 U nivers 500 mg 12 1-16 tablet by ity o f hr tablet 00:00: mouth [place] 00 every 12 Medical (twelve) Branch hours. metoprolol 2020-0 Yes [id number] 100mg Take 1 U nivers tartrate 1-16 tablet by ity of 100 mg 00:00: mouth [place] tablet 00 every 12 Medical (twelve) Branch hours. ranolazine 2020-0 Yes [id number] 500mg Take 1 U nivers 500 mg 12 1-16 tablet by ity o f hr tablet 00:00: mouth [place] 00 every 12 Medical (twelve) Branch hours. metoprolol 2020-0 Yes [id number] 100mg Take 1 U nivers tartrate 1-16 tablet by ity of 100 mg 00:00: mouth [place] tablet 00 every 12 Medical (twelve) Branch hours. ranolazine 2020-0 Yes [id number] 500mg Take 1 U nivers 500 mg 12 1-16 tablet by ity o f hr tablet 00:00: mouth [place] 00 every 12 Medical (twelve) Branch hours. metoprolol 2020-0 Yes [id number] 100mg Take 1 U nivers tartrate 1-16 tablet by ity of 100 mg 00:00: mouth [place] tablet 00 every 12 Medical (twelve) Branch hours. ranolazine 2020-0 Yes [id number] 500mg Take 1 U nivers 500 mg 12 1-16 tablet by ity o f hr tablet 00:00: mouth [place] 00 every 12 Medical (twelve) Branch hours. metoprolol 2020-0 Yes [id number] 100mg Take 1 U nivers tartrate 1-16 tablet by ity of 100 mg 00:00: mouth [place] tablet 00 every 12 Medical (twelve) Branch hours. ranolazine 0 Yes [id number] 500mg Take 1 U nivers 500 mg 12 1-16 tablet by ity o f hr tablet 00:00: mouth [place] 00 every 12 Medical (twelve) Branch hours. metoprolol 0 Yes [id number] 100mg Take 1 U nivers tartrate 1-16 tablet by ity of 100 mg 00:00: mouth [place] tablet 00 every 12 Medical (twelve) Branch hours. ranolazine 0 Yes [id number] 500mg Take 1 U nivers 500 mg 12 1-16 tablet by ity o f hr tablet 00:00: mouth [place] 00 every 12 Medical (twelve) Branch hours. metoprolol 0 Yes [id number] 100mg Take 1 U nivers tartrate 1-16 tablet by ity of 100 mg 00:00: mouth [place] tablet 00 every 12 Medical (twelve) Branch hours. ranolazine 0 Yes [id number] 500mg Take 1 U nivers 500 mg 12 1-16 tablet by ity o f hr tablet 00:00: mouth [place] 00 every 12 Medical (twelve) Branch hours. metoprolol 0 2020- No [id number] 100mg Take 1 Univers tartrate 1-16 05-25 tablet by ity o f 100 mg 00:00: 00:00 mouth [place] tablet 00 :00 every 12 Medical (twelve) Branch hours. ranolazine 2020-0 2020- No [id number] 500mg Take 1 Univers 500 mg 12 [...] at 1015, Until Discontinu ed, Routine lisinopriL 2020-0 Yes 5mg 5 mg, Univer s (PRINIVIL,Z 1-15 Oral, ity of ESTRIL) 15:00: DAILY, [place] tablet 5 mg 00 First dose Me dical (after Branch last modificati on) on Fri09/08/20 at 0900, Until Discontinu ed, Routine lidocaine 2020-0 Yes 1{patch 1 Patch, U nivers (LIDODERM) 1-15 } Topical, ity o f 5 % (700 03:30: Administer [place] mg/patch) 00 over 12 Medical patch 1 Hours, Branch Patch DAILY, First dose (after last reorder) on [facility] 09/07/20 at 2130, Until Discontinu ed, Routine LORazepam 2020-0 Yes .5mg 0.5 mg, Unive rs (ATIVAN) 1-15 Oral, ity of tablet 0.5 03:15: Q4HPRN, [place] mg 50 Starting Medical [facility] Branch 09/07/20 at 2115, Until Discontinu ed, Routine, Anxiety metoprolol 2020-0 Yes 100mg 100 mg, Uni vers tartrate 1-15 Oral, ity of (LOPRESSOR) 02:00: Q12H, [place] tablet 100 00 First dose Med ical mg on [facility] Branch 09/07/20 at 2000, Until Discontinu ed, Routine ranolazine 2020-0 Yes 500mg 500 mg, Uni vers (RANEXA) 12 1-14 Oral, Q12H it y of hr tablet 20:00: ABX, First [place] 500 mg 00 dose on Medical [facility] Branch 09/07/20 at 1400, Until Discontinu ed, Routine lisinopriL 2020-0 2021- No 2.5mg 2.5 mg, Un [facility] (PRINIVIL,Z 09-07 Oral, ONCE i ty of ESTRIL) 20:00: 19:42 NOW, 1 [place] tablet 2.5 00 :00 dose, [place] Medi zaina mg 09/07/20 at Branch 1400, Routine FENTanyl PF 2020- No Slow IV [...] ity o f injection 16:04: 16:04 FOR [place] 56 :56 PROCEDURE Medical USE, 1 Branch dose, Starting [facility] 09/07/20 at 1004, Until [facility] 09/07/20 at 1004, Routine fluticasone 2020-0 Yes 2{spray 2 [place], Univers propionate 14 } Nasal, ity of 50 15:00: DAILY, [place] mcg/actuati 00 First dose Me dical on nasal on [facility] spray 2 09/07/20 at [place] 0900, Until Discontinu ed, Routine pantoprazol 0 Yes 40mg 40 mg, Univ ers e 1-14 Oral, ity of (PROTONIX) 15:00: DAILY, [place] EC tablet 00 First dose Medi zaina 40 mg on [facility] 09/07/20 at 0900, Until Discontinu ed, Routine isosorbide 0 Yes 120mg 120 mg, Uni vers mononitrate 14 Oral, ity of (IMDUR) 24 15:00: DAILY, [place] hr tablet 00 First dose Medi zaina 120 mg on [facility] 09/07/20 at 0900, Until Discontinu ed, Routine fenofibrate 0 Yes 67mg 67 mg, Univ ers micronized 14 Oral, ity of (LOFIBRA) 15:00: DAILY, [place] capsule 67 00 First dose Med ical mg on [facility] 09/07/20 at 0900, Until Discontinu ed, Routine clopidogreL 0 Yes 75mg 75 mg, Univ ers (PLAVIX) 14 Oral, ity of tablet 75 15:00: DAILY, [place] mg 00 First dose Medical on [facility] 09/07/20 at 0900, Until Discontinu ed, Routine aspirin 2020-0 Yes 81mg 81 mg, Univers chewable 14 Oral, ity of tablet 81 15:00: DAILY, [place] mg 00 First dose Medical on [facility] 09/07/20 at 0900, Until Discontinu ed, Routine lisinopriL 0 2020- No 2.5mg 2.5 mg, Un [facility] (PRINIVIL,Z 14 -14 Oral, ity of ESTRIL) 15:00: 18:55 DAILY, [place] tablet 2.5 00 :01 First dose Med ical mg on [facility] 09/07/20 at 0900, Until Discontinu ed, Routine HYDROcodone 2020- No 1{tbl} 1 tablet, Univers -acetaminop 09-07 Oral, ity of hen (NORCO) 13:55: 13:54 Q6HPRN, [place] 10-325 mg 47 :47 Starting Medica l tablet 1 [place] Branch tablet 09/07/20 at 0755, Until 09/09/20 at 0754, Routine, Pain (scale 7-10) LORazepam 2020- No .5mg 0.5 mg, Univ ers (ATIVAN) 09-07 Oral, ity of tablet 0.5 12:00: 11:08 ONCE, 1 [place] mg 00 :00 dose, [facility] Medical 09/07/20 at Branch 0600, Routine lidocaine 2020- No 1{patch 1 Patch, Univers (LIDODERM) 09-07 } Topical, ity of 5 % (700 12:00: 23:08 Administer [place] mg/patch) 00 :00 over 12 Medical patch 1 Hours, Branch Patch ONCE, 1 dose, [facility] 09/07/20 at 0600, Routine gabapentin 2020- No 400mg 400 mg, Un [place] (NEURONTIN) 09-07 Oral, TID, i ty of capsule 400 04:30: 14:59 First dose [place] mg 00 :53 on Fri09/06/20 at Branch 2230, Until Discontinu ed, Routine HYDROcodone 2020- No 1{tbl} 1 tablet, Univers -acetaminop 09-07 Oral, ity of hen (NORCO) 04:16: 10:26 Q6HPRN, 2 [place] 10-325 mg 45 :00 doses, Medical tablet 1 Starting Branch tablet Fri09/06/20 at 2216, Until Discontinu ed, Routine, Pain (scale 7-10) atorvastati Yes 80mg 80 mg, Univ ers n (LIPITOR) 09-07 Oral, QHS, it y of tablet 80 03:00: First dose [place] mg 00 on Fri09/06/20 at Branch 2100, Until Discontinu ed, Routine clonazePAM 2021-0 2021- No .5mg 0.5 mg, Uni vers (KLONOPIN) 09-07 Oral, ity of tablet 0.5 01:43: 00:27 TIDPRN, 2 [place] mg 34 :00 doses, Medical Starting Branch [facility] 09/06/20 at 1943, Until Discontinu ed, Routine, anxiety Sliding 2020-2020- No Subcutaneo Uni vers Scale 09-07 us, Q6H, ity of Insulin - 00:00: 16:06 First dose [place] Lispro 00 :20 on Wed Medical (HumaLOG) + 09/06/20 at [facility] Fsbg 1800, Testing Until Discontinu ed, Routine magnesium 2020- No 1g 1 g, IV Univ ers sulfate in 09-06 Piggyback, it y of D5W 1 22:15: 23:13 ONCE, 1 [place] gram/100 mL 00 :00 dose, Fri Med ical RTU IV 09/06/20 at Branch Piggyback 1 1615, 100 g mL morpHINE Yes 2mg 2 mg, Slow Uni vers injection 2 09-06 IV Push, ity of mg 21:36: Q4HPRN, [place] [address] [facility] Branch 09/06/20 at 1536, Until Discontinu ed, Routine, Pain (scale 7-10), Chest pain glucagon Yes 1mg 1 mg, Univers (GLUCAGEN 09-06 Intramuscu ity of DIAGNOSTIC 21:33: lar, PRN, [place] KIT) 29 Starting Medical injection [address] [facility] Branch mg 09/06/20 at 1533, Until Discontinu ed, RADHA, Blood Glucose < or = 70 mg/dL and patient is unable to swallow or has mental changes. dextrose 50 Yes 25mL 25 mL, Univ ers % in water 09-06 Slow IV ity of (D50W) 21:33: Push, PRN, [place] injection 29 Starting Medica l [address] [facility] Branch 09/06/20 at 1533, Until Discontinu ed, [...] by ity of tablet 19:42: mouth 2 [place] 48 (two) Medical times Branch daily with meals. fluticasone Yes 1{spray Use 1 Un [place] propionate 09-06 } [place] in ity o f (FLONASE 19:42: each [place] ALLERGY nostril Medical RELIEF) 50 daily. Branch mcg/actuati on nasal spray diclofenac Yes 50mg Take 50 mg U nivers 50 mg EC 13 by mouth ity of tablet 19:42: daily. [address] DULoxetine Yes 30mg Take 30 mg U nivers (CYMBALTA) 13 by mouth ity o f 30 mg 19:42: daily. [place] capsule [address] [place] [address] metoprolol Yes 100mg Take 100 Un [place] succinate 1-13 mg by ity of XL 100 mg 19:42: mouth 2 [place] 24 hr 48 (two) Medical tablet times [...] % NS Parameters in Admin. Instr., Starting 09/06/20 at 1254
CA UTION - If LMWH given in ER, AVOID bolus and start next dose/drip 12 hrs after ER dosage.&nb sp; M ust program rate using programmab le infusion pump.&nbsp ; Marguerite ck with the ordering provider first prior to any administra tion should the patient be on existing/a dditional anticoagul ant therapy. Rang e, Dosing and Testing: &nbs p;FOR POWERSITE, [facility], AND [facility] ONLY - aPTT < 35: & nbsp;Bolus 5000 units, increase rate 300 units/hr&a mp;nbsp; - aPTT 35-44:&nbs p; Michael lotus 3000 [...] Q12H once therapeuti c levels are reached.&n bsp;&n bsp; ____ &amp ;nbsp;&nbs p;FOR [facility] ONLY - aPTT < 40: [...] 120: Hold 60 minutes, decrease rate 200 units/hr&a mp;nbsp;&n bsp;Check aPTT 6 hours after initiation , then Q6H after every change, aPTT Q12H once therapeuti c levels are reached.&n bsp; DO NOT ADJUST INITIAL BOLUS OR INITIAL INFUSION RATE.
morpHINE 2020- No 4mg 4 mg, Slow Un [facility] injection 4 09-06 IV Push, ity of mg 18:30: 17:22 ONCE, 1 [place] 00 :00 dose, Wed Medical 09/06/20 at Branch 1230, STAT heparin [...] , Starting [place] mL vial) 01 :15 Fri Medical for 09/06/20 at Branch Rebolusing 1154, Until [place] 09/07/20 at 1254, Routine
Dosing based on aPTT testing parameters (refer to continuous heparin drip order).
morpHINE 2020- No 4mg 4 mg, Slow Un lizbe[place] injection 4 09-06 IV Push, ity of mg 17:15: 16:24 ONCE, 1 [place] 00 :00 dose, Fri Medical 09/06/20 at Branch 1115, STAT losartan 25 Yes [id number] 25mg Take 1 Univers mg tablet 1-11 tablet by ity o f 00:00: mouth [place] 00 daily. [facility] losartan 25 Yes [id number] 25mg Take 1 Univers mg tablet 1-11 tablet by ity o f 00:00: mouth [place] 00 daily. [facility] losartan 25 2020- No [id number] 25mg Take 1 Univers mg tablet -11 09-09 tablet by ity of 00:00: 00:00 mouth [place] 00 :00 daily. [facility] methocarbam Yes 500mg Take 500 U nivers ol 1-10 mg by ity of (ROBAXIN) 21:05: mouth 2 [place] 500 mg 43 (two) Medical tablet times [place] daily. metFORMIN Yes 1000mg Take 1,000 Univers 1,000 mg 1-10 mg by ity of tablet 21:05: mouth 2 [place] 43 (two) Medical times [place] daily with meals. fluticasone Yes 1{spray Use 1 Un [place] propionate 1-10 } [place] in ity o f (FLONASE 21:05: each [place] ALLERGY nostril Medical RELIEF) 50 daily. [place] mcg/actuati on nasal spray diclofenac Yes 50mg Take 50 mg U nivers 50 mg EC 1-10 by mouth ity of tablet 21:05: daily. [address] DULoxetine 0 Yes 30mg Take 30 mg U nivers (CYMBALTA) 1-10 by mouth ity o f 30 mg 21:05: daily. [address] metoprolol Yes 100mg Take 100 Un [place] succinate 1-10 mg by ity of XL 100 mg 21:05: mouth 2 [place] 24 hr 43 (two) Medical tablet times Branch daily. losartan Yes 25mg 25 mg, Univers (COZAAR) 1-10 [...] Medical 09/02/20 at Branch 2100, Routine gabapentin Yes [id number] 600mg Take 2 [facility] 300 mg 1-10 capsules ity of capsule 00:00: by mouth 2 [place] 00 (two) Medical times Branch daily. nitroglycer Yes [id number] .4mg Place 1 Univers in 0.4 mg 1-10 tablet ity of sublingual 00:00: under the [place] tablet 00 tongue Medical every 5 Branch (five) minutes as needed for Chest pain. albuterol Yes [id number] 2{puff} Inhale 2 Univers (PROAIR 1-10 Puffs ity of HFA) 90 00:00: every 6 [place] mcg/actuati 00 (six) Medical on inhaler hours as Branc h needed for Wheezing or Shortness of Breath. gabapentin Yes [id number] 600mg Take 2 Univers 300 mg 1-10 capsules ity of capsule 00:00: by mouth 2 [place] 00 (two) Medical times Branch daily. nitroglycer Yes [id number] .4mg Place 1 Univers in 0.4 mg 1-10 tablet ity of sublingual 00:00: under the [place] tablet 00 tongue Medical every 5 Branch (five) minutes as needed for Chest pain. albuterol Yes [id number] 2{puff} Inhale 2 Univers (PROAIR 1-10 Puffs ity of HFA) 90 00:00: every 6 [place] mcg/actuati 00 (six) Medical on inhaler hours as Branc h needed for Wheezing or Shortness of Breath. gabapentin 2020-0 Yes [id number] 600mg Take 2 Univers 300 mg 1-10 capsules ity of capsule 00:00: by mouth 2 [place] 00 (two) Medical times Branch daily. nitroglycer 2020-[id number] 1 Univers in 0.4 mg 1-10 tablet ity of sublingual 00:00: under the [place] tablet 00 tongue Medical every 5 Branch (five) minutes as needed for Chest pain. albuterol 2020-0 Yes [id number] 2{puff} Inhale 2 Univers (PROAIR 1-10 Puffs ity of HFA) 90 00:00: every 6 [place] mcg/actuati 00 (six) Medical on inhaler hours as Branc h needed for Wheezing or Shortness of Breath. gabapentin 2020-0 Yes [id number] 600mg Take 2 Univers 300 mg 1-10 capsules ity of capsule 00:00: by mouth 2 [place] 00 (two) Medical times Branch daily. nitroglycer 2020-[id number] 1 Univers in 0.4 mg 1-10 tablet ity of sublingual 00:00: under the [place] tablet 00 tongue Medical every 5 Branch (five) minutes as needed for Chest pain. albuterol 2020-0 Yes [id number] 2{puff} Inhale 2 Univers (PROAIR 1-10 Puffs ity of HFA) 90 00:00: every 6 [place] mcg/actuati 00 (six) Medical on inhaler hours as Branc h needed for Wheezing or Shortness of Breath. gabapentin 2020-0 Yes [id number] 600mg Take 2 Univers 300 mg 1-10 capsules ity of capsule 00:00: by mouth 2 [place] 00 (two) Medical times Branch daily. nitroglycer 2020-[id number] 1 Univers in 0.4 mg 1-10 tablet ity of sublingual 00:00: under the [place] tablet 00 tongue Medical every 5 Branch (five) minutes as needed for Chest pain. albuterol 2020-0 Yes [id number] 2{puff} Inhale 2 Univers (PROAIR 1-10 Puffs ity of HFA) 90 00:00: every 6 [place] mcg/actuati 00 (six) Medical on inhaler hours as Branc h needed for Wheezing or Shortness of Breath. gabapentin 2020-0 Yes [id number] 600mg Take 2 Univers 300 mg 1-10 capsules ity of capsule 00:00: by mouth 2 [place] 00 (two) Medical times Branch daily. nitroglycer 2020-[id number] 1 Univers in 0.4 mg 1-10 tablet ity of sublingual 00:00: under the [place] tablet 00 tongue Medical every 5 Branch (five) minutes as needed for Chest pain. albuterol 2020-0 Yes [id number] 2{puff} Inhale 2 Univers (PROAIR 1-10 Puffs ity of HFA) 90 00:00: every 6 [place] mcg/actuati 00 (six) Medical on inhaler hours as Branc h needed for Wheezing or Shortness of Breath. gabapentin 2020-0 Yes [id number] 600mg Take 2 [facility] 300 mg 1-10 capsules ity of capsule 00:00: by mouth 2 [place] 00 (two) Medical times Branch daily. nitroglycer 2020-[id number] 1 Univers in 0.4 mg 1-10 tablet ity of sublingual 00:00: under the [place] tablet 00 tongue Medical every 5 Branch (five) minutes as needed for Chest pain. albuterol 2020-0 Yes [id number] 2{puff} Inhale 2 Univers (PROAIR 1-10 Puffs ity of HFA) 90 00:00: every 6 [place] mcg/actuati 00 (six) Medical on inhaler hours as Branc h needed for Wheezing or Shortness of Breath. gabapentin 2020-0 Yes [id number] 600mg Take 2 [facility] 300 mg 1-10 capsules ity of capsule 00:00: by mouth 2 [place] 00 (two) Medical times Branch daily. nitroglycer 2020-[id number] 1 Univers in 0.4 mg 1-10 tablet ity of sublingual 00:00: under the [place] tablet 00 tongue Medical every 5 Branch (five) minutes as needed for Chest pain. albuterol 2020-0 Yes [id number] 2{puff} Inhale 2 Univers (PROAIR 1-10 Puffs ity of HFA) 90 00:00: every 6 [place] mcg/actuati 00 (six) Medical on inhaler hours as Branc h needed for Wheezing or Shortness of Breath. gabapentin 2020-0 Yes [id number] 600mg Take 2 Univers 300 mg 1-10 capsules ity of capsule 00:00: by mouth 2 [place] 00 (two) Medical times Branch daily. nitroglycer 2020-[id number] 1 Univers in 0.4 mg 1-10 tablet ity of sublingual 00:00: under the [place] tablet 00 tongue Medical every 5 Branch (five) minutes as needed for Chest pain. albuterol 2020-0 Yes [id number] 2{puff} Inhale 2 Univers (PROAIR 1-10 Puffs ity of HFA) 90 00:00: every 6 [place] mcg/actuati 00 (six) Medical on inhaler hours as Branc h needed for Wheezing or Shortness of Breath. gabapentin 0 Yes [id number] 600mg Take 2 Univers 300 mg 1-10 capsules ity of capsule 00:00: by mouth 2 [place] 00 (two) Medical times Branch daily. nitroglycer 2020-[id number] 1 Univers in 0.4 mg 1-10 tablet ity of sublingual 00:00: under the [place] tablet 00 tongue Medical every 5 Branch (five) minutes as needed for Chest pain. albuterol 2020-0 Yes [id number] 2{puff} Inhale 2 Univers (PROAIR 1-10 Puffs ity of HFA) 90 00:00: every 6 [place] mcg/actuati 00 (six) Medical on inhaler hours as Branc h needed for Wheezing or Shortness of Breath. gabapentin 0 2020- No [id number] 600mg Take 2 Univers 300 mg 1-10 05-25 capsules ity of capsule 00:00: 00:00 by mouth 2 [place] as 00 :00 (two) Medical times Branch daily. nitroglycer 2020-0 2021- No [id number] .4mg Place 1 Univers in 0.4 mg 1-10 05-25 tablet ity of sublingual 00:00: 00:00 under the [place] tablet 00 :00 tongue Medical every 5 Branch (five) minutes as needed for Chest pain. albuterol 0 2020- No [id number] 2{puff} Inhale 2 Univers (PROAIR 1-10 05-25 Puffs ity of HFA) 90 00:00: 00:00 every 6 [place] mcg/actuati 00 :00 (six) Medical on inhaler hours as Branc h needed for Wheezing or Shortness of Breath. enoxaparin 2020-0 Yes 40mg 40 mg, Unive rs (LOVENOX) 09-02 Subcutaneo ity of injection 23:00: us, DAILY, [place] 40 mg 00 First dose Medical on [facility] Branch 09/02/20 at 1700, Until Discontinu ed, Routine metoprolol 0 Yes 100mg 100 mg, Uni vers succinate 09-02 Oral, BID, ity of XL (TOPROL 16:45: First dose [place] XL) tablet 00 on [facility] Medical 100 mg 09/02/20 at Branch 1045, Until Discontinu ed, Routine isosorbide 0 Yes 120mg 120 mg, Uni vers mononitrate 09-02 Oral, ity of (IMDUR) 24 15:00: DAILY, [place] hr tablet 00 First dose Medi zaina 120 mg on [facility] Branch 09/02/20 at 0900, Until Discontinu ed, Routine fluticasone 0 Yes 1{spray 1 [place], Univers propionate 09-02 } Nasal, ity of 50 15:00: DAILY, [place] mcg/actuati 00 First dose Me dical on nasal on [facility] Branch spray 1 09/02/20 at [place] 0900, Until Discontinu ed, Routine fenofibrate 0 Yes 67mg 67 mg, Univ ers micronized 09-02 Oral, ity of (LOFIBRA) 15:00: DAILY, [place] capsule 67 00 First dose Med ical mg on [facility] Branch 09/02/20 at 0900, Until Discontinu ed, Routine DULoxetine 2020-0 Yes 30mg 30 mg, Unive rs (CYMBALTA) 09-02 Oral, ity of capsule 30 15:00: DAILY, [place] mg 00 First dose Medical on [facility] Branch 09/02/20 at 0900, Until Discontinu ed, Routine clopidogreL 2020-0 Yes 75mg 75 mg, Univ ers (PLAVIX) 09-02 Oral, ity of tablet 75 15:00: DAILY, [place] mg 00 First dose Medical on [facility] Branch 09/02/20 at 0900, Until Discontinu ed, Routine atorvastati 2020-0 Yes 80mg 80 mg, Univ ers n (LIPITOR) 09 Oral, ity of tablet 80 15:00: DAILY, [place] mg 00 First dose Medical on [facility] Branch 09/02/20 at 0900, Until Discontinu ed, Routine aspirin 0 Yes 81mg 81 mg, Univers chewable 09-02 Oral, ity of tablet 81 15:00: DAILY, [place] mg 00 First dose Medical on [facility] Branch 09/02/20 at 0900, Until Discontinu ed, Routine lisinopriL 2020- No 2.5mg 2.5 mg, Un [facility] (PRINIVIL,Z 09-02 Oral, ity of ESTRIL) 15:00: 16:29 DAILY, [place] tablet 2.5 00 :09 First dose Med ical mg on [facility] Branch 09/02/20 at 0900, Until Discontinu ed, Routine methocarbam Yes 500mg 500 mg, [facility] oL 09-02 Oral, BID, ity of (ROBAXIN) 14:00: First dose [place] tablet 500 00 on [facility] mg 09/02/20 at Branch 0800, Until Discontinu ed, Routine gabapentin Yes 300mg 300 mg, Uni vers (NEURONTIN) 09-02 Oral, BID, it y of capsule 300 14:00: First dose [place] mg 00 on [facility] Medical 09/02/20 at Branch 0800, Until Discontinu ed, Routine Sliding Yes Subcutaneo Univ ers Scale 1-09 us, AC, ity of Insulin-Reg 13:30: First dose [place] ular + Fsbg 00 on [facility] Medica l Testing 09/02/20 at Branch 0730, Until Discontinu ed, Routine KCL 2020- No 40meq 40 mEq, Univers (KLOR-CON 09-02 Oral, ity of M20) tablet 09:15: 08:35 ONCE, 1 [place] 40 mEq 00 :00 dose, [facility] Medical 09/02/20 at Branch 0315, Routine Oxycodone 2020- No 1{tbl} Take 1 Uni vers 10 mg Tab 09-02 tablet by ity of 08:31: 00:00 mouth [place] 17 :00 every 6 Medical (six) Branch hours as needed for Pain (scale 7-10). nitroglycer 0 Yes .4mg 0.4 mg, Uni vers in 09-02 Sublingual ity of (NITROSTAT) 08:30: , Q5MIN [place] sublingual 19 PRN, Medical tablet 0.4 Starting Branc h mg 09/02/20 at 0230, Until Discontinu ed, Routine, Chest pain ondansetron 0 Yes 4mg 4 mg, Slow Univers (ZOFRAN 09-02 IV Push, ity of (PF)) 08:30: Q6HPRN, [place] injection 4 08 Starting Medi zaina mg 09/02/20 Branch at 0230, Until Discontinu ed, Routine, Nausea and Vomiting (N/V) acetaminoph 0 Yes 650mg 650 mg, [facility] en 09-02 Oral, ity of (TYLENOL) 08:30: Q6HPRN, [place] tablet 650 02 Starting Medic al mg [...] swallow or has mental changes. dextrose 50 0 Yes 25mL 25 mL, Univ ers % in water 09-02 Slow IV ity of (D50W) 08:28: Push, PRN, [place] injection 19 Starting Medica l 25 mL 09/02/20 Branch at 0228, Until Discontinu ed, RADHA, Blood Glucose < or = 70 mg/dL and patient is unable to swallow or has mental status changes. benzocaine- 0 Yes 1{lozen 1 Lozenge, Univers menthoL 09-02 ge} Oral, ity of (CEPACOL 08:01: Q4HPRN, [place] SORE THROAT 36 Starting Medi zaina (APPLE-MEN)) 09/02/20 Br anch lozenge 1 at 0201, Lozenge Until Discontinu ed, Routine, Sore throat azithromyci 2020- No 500mg 500 mg, IV Univers n 09-02 Piggyback, ity of (ZITHROMAX) 05:30: 20:18 Q24H [...] Medical 09/01/20 at Branch 2315, Routine HYDROcodone Yes 1{tbl} 1 tablet, Univers -acetaminop 09-02 Oral, ity of hen (NORCO) 04:09: Q6HPRN, [place] as 10-325 mg 52 Starting Medica l tablet 1 09/01/20 Branc h tablet at 2209, Until Discontinu ed, [...] ity of mg 03:15: 02:06 ONCE, 1 [place] 00 :00 dose, Fri Medical 09/01/20 at Branch 2115, STAT iohexol 2020- No 100mL 100 mL, Unive rs (OMNIPAQUE 09-02 Intravenou it y of 350 01:30: 01:15 s, ONCE, 1 [place] BULK-100 00 :00 dose, Fri Medica l mL) 09/01/20 at Branch injection 1930, 100 mL Routine ondansetron 2020- No 4mg 4 mg, Slow Univers (ZOFRAN 09-02 IV Push, ity of (PF)) 00:15: 23:16 ONCE, 1 [place] injection 4 00 :00 dose, Fri Med ical mg 09/01/20 at Branch 1815, RADHA morpHINE 0 2020- No 6mg 6 mg, Slow [facility] injection 6 09-02 IV Push, ity of mg 00:15: 23:16 [...] by ity of tablet 19:09: mouth 2 [place] [address] (two) Medical times [place] daily with meals. fluticasone 2019- Yes 1{spray Use 1 [facility] propionate 1-03 } [place] in ity o f (FLONASE 19:09: each [place] ALLERGY 27 nostril Medical RELIEF) 50 daily. Branch mcg/actuati on nasal spray diclofenac 2019- Yes 50mg Take 50 mg U nivers 50 mg EC 1-03 by mouth ity of tablet 19:09: daily. [address] methocarbam 2019-08 Yes 500mg Take 500 U nivers ol 1-03 mg by ity of (ROBAXIN) 19:09: mouth 2 [place] 500 mg 27 (two) Medical tablet times Branch daily. metFORMIN 2020-1 Yes 1000mg Take 1,000 Univers 1,000 mg 1-03 mg by ity of tablet 19:09: mouth 2 [place] 27 (two) Medical times Branch daily with meals. fluticasone 2020- Yes 1{spray Use 1 [facility] [place] propionate 1-03 } [place] in ity o f (FLONASE 19:09: each [place] ALLERGY 27 nostril Medical RELIEF) 50 daily. Branch mcg/actuati on nasal spray diclofenac 2019- Yes 50mg Take 50 mg U nivers 50 mg EC 1-03 by mouth ity of tablet 19:09: daily. [address] methocarbam 2019- Yes 500mg Take 500 [...] Use 1 [facility] propionate 1-03 } [place] in ity o f (FLONASE 19:09: each [place] ALLERGY 27 nostril Medical RELIEF) 50 daily. Branch mcg/actuati on nasal spray diclofenac 2019-08 Yes 50mg Take 50 mg U nivers 50 mg EC 1-03 by mouth ity of tablet 19:09: daily. [address] Branch methocarbam 2019-08 Yes 500mg Take 500 U nivers ol 1-03 mg by ity of (ROBAXIN) 19:09: mouth 2 [place] 500 mg 27 (two) Medical tablet times Branch daily. metFORMIN 2020- Yes 1000mg Take 1,000 Univers 1,000 mg 1-03 mg by ity of tablet 19:09: mouth 2 [place] 27 (two) Medical times Branch daily with meals. fluticasone 2019- Yes 1{spray Use 1 [facility] [place] propionate 1-03 } [place] in ity o f (FLONASE 19:09: each [place] ALLERGY 27 nostril Medical RELIEF) 50 daily. Branch mcg/actuati on nasal spray diclofenac 2019- Yes 50mg Take 50 mg U nivers 50 mg EC 1-03 by mouth ity of tablet 19:09: daily. [address] Branch methocarbam 2019- Yes 500mg Take 500 U [...] Use 1 [facility] propionate 1-03 } [place] in ity o f (FLONASE 19:09: each [place] ALLERGY 27 nostril Medical RELIEF) 50 daily. Branch mcg/actuati on nasal spray diclofenac 2019-08 Yes 50mg Take 50 mg U nivers 50 mg EC 1-03 by mouth ity of tablet 19:09: daily. [place] 27 Medical Branch methocarbam 2019- Yes 500mg Take 500 U nivers ol 0-10 mg by ity of (ROBAXIN) 19:51: mouth 2 [place] 500 mg 57 (two) Medical tablet times Branch daily. metFORMIN 2020- Yes 1000mg Take 1,000 Univers 1,000 mg 0-10 mg by ity of tablet 19:51: mouth 2 [place] 57 (two) Medical times Branch daily with meals. fluticasone 2019-08 Yes 1{spray Use 1 [facility] propionate 0-10 } [place] in ity o f (FLONASE 19:51: each [place] ALLERGY 57 nostril Medical RELIEF) 50 daily. Branch mcg/actuati on nasal spray diclofenac 2019-08 Yes 50mg Take 50 mg U nivers 50 mg EC 0-10 by mouth ity of tablet 19:51: daily. [address] Branch amLODIPine 2019-08 Yes 2.5mg 2.5 mg, Uni vers (NORVASC) 0-10 Oral, ity of tablet 2.5 14:00: DAILY, [place] mg 00 First dose Medical (after Branch last modificati on) on 06/03/20 at 0900, Until Discontinu ed, Routine pantoprazol 2019-08 Yes 40mg 40 mg, Univ ers e 0-10 Oral, ity of (PROTONIX) 14:00: DAILY, [place] EC tablet 00 First dose Medi zaina 40 mg on Sat Branch 06/03/20 at 0900, Until Discontinu ed, Routine lisinopriL 2019-08 Yes 2.5mg 2.5 mg, Uni vers (PRINIVIL,Z 0-10 Oral, ity of ESTRIL) 14:00: DAILY, [place] tablet 2.5 00 First dose Med ical mg on Sat Branch 06/03/20 at 0900, Until Discontinu ed, Routine isosorbide 2019-08 Yes 120mg 120 mg, Uni vers mononitrate 0-10 Oral, ity of (IMDUR) 24 14:00: DAILY, [place] hr tablet 00 First dose Medi zaina 120 mg on Sat Branch 06/03/20 at 0900, Until Discontinu ed, Routine fluticasone 2019-08 Yes 1{spray 1 [place], Univers propionate 0-10 } Nasal, ity of 50 14:00: DAILY, [place] mcg/actuati 00 First dose Me dical on nasal on Sat Branch spray 1 06/03/20 [place] at 0900, Until Discontinu ed, Routine fenofibrate 2020- Yes 67mg 67 mg, Univ ers micronized 0-10 Oral, ity of (LOFIBRA) 14:00: DAILY, [place] capsule 67 00 First dose Med ical mg on [facility] Branch 06/03/20 at 0900, Until Discontinu ed, Routine clopidogreL 2020- Yes 75mg 75 mg, Univ ers (PLAVIX) 0-10 Oral, ity of tablet 75 14:00: DAILY, [place] mg 00 First dose Medical on [facility] Branch 06/03/20 at 0900, Until Discontinu ed, Routine atorvastati 2019-08 Yes 80mg 80 mg, Univ ers n (LIPITOR) 0-10 Oral, ity of tablet 80 14:00: DAILY, [place] mg 00 First dose Medical on [facility] Branch 06/03/20 at 0900, Until Discontinu ed, Routine aspirin 2019- Yes 81mg 81 mg, Univers chewable 0-10 Oral, ity of tablet 81 14:00: DAILY, [place] mg 00 First dose Medical on [facility] Branch 06/03/20 at 0900, Until Discontinu ed, Routine Sliding 2020- Yes Subcutaneo Univ ers Scale 0-10 us, AC, ity of Insulin - 12:30: First dose [place] Aspart 00 (after Medical (NOVOLOG) + last Branch Fsbg modificati Testing on) on [facility] 06/03/20 at 0730, Until Discontinu ed, Routine magnesium 2020- Yes 400mg 400 mg, Univ ers oxide 0-10 Oral, BID, ity of (MAG-OX 05:30: [place] dose [place] 400[place] tablet 00 on [facility] Medica l 400 mg 06/03/20 Branch at [...] at 2130, Until Discontinu ed, Routine traMADoL 2019-08 Yes 50mg 50 mg, Univers (ULTRAM) 0-10 [...] on Fri Medical 100 mg 06/02/20 at Branch 1999, Until Discontinu ed, Routine methocarbam 2019-08 Yes 500mg 500 mg, [facility] oL 0-10 Oral, BID, ity of (ROBAXIN) 01:00: First dose [place] tablet 500 00 on Fri Medical mg 06/02/20 at Branch 1999, Until Discontinu ed, Routine gabapentin 2019-08 Yes 600mg 600 mg, Uni vers (NEURONTIN) 0-10 Oral, TID, it y of capsule 600 01:00: First dose [place] mg 00 on Fri Medical 06/02/20 at Branch 1999, Until Discontinu ed, Routine ranolazine 2019-08 2020- No [id number] 500mg Take 1 Univers 500 mg 12 0-10 11-10 tablet by ity of hr tablet 00:00: 05:59 mouth [place] 00 :00 every 12 Medical (twelve) Branch hours for 30 days. metoprolol 2019-08 2020- No [id number] 100mg Take 1 Univers succinate 0-10 11-10 tablet by ity of XL 100 mg 00:00: 05:59 mouth 2 [place] 24 hr 00 :00 (two) Medical tablet times Branch daily for 30 days. glipiZIDE 5 2019-08 2020- No [id number] 5mg Take 1 Univers mg tablet 0-10 11-10 tablet by ity of 00:00: 05:59 mouth 2 [place] 00 :00 (two) Medical times Branch daily before breakfast and dinner for 30 days. ranolazine 2019-08 2020- No [id number] 500mg Take 1 Univers 500 mg 12 0-10 11-10 tablet by ity of hr tablet 00:00: 05:59 mouth [place] 00 :00 every 12 Medical (twelve) Branch hours for 30 days. metoprolol 2019-08- No [id number] 100mg Take 1 Univers succinate 0-10 11-10 tablet by ity of XL 100 mg 00:00: 05:59 mouth 2 [place] 24 [place] 00 :00 (two) Medical tablet times Branch daily for 30 days. glipiZIDE 5 2019-08- No [id number] 5mg Take 1 Univers mg tablet 0-10 11-10 tablet by ity of 00:00: 05:59 mouth 2 [place] 00 :00 (two) Medical times Branch daily before breakfast and dinner for 30 days. ranolazine 2019-08- No [id number] 500mg Take 1 Univers 500 mg 12 0-10 11-10 tablet by ity of hr tablet 00:00: 05:59 mouth [place] 00 :00 every 12 Medical (twelve) Branch hours for 30 days. metoprolol 2019-08- No [id number] 100mg Take 1 Univers succinate 0-10 11-10 tablet by ity of XL 100 mg 00:00: 05:59 mouth 2 [place] 24 [place] 00 :00 (two) Medical tablet times Branch daily for 30 days. glipiZIDE 5 2019-08- No [id number] 5mg Take 1 Univers mg tablet 0-10 11-10 tablet by ity of 00:00: 05:59 mouth 2 [place] 00 :00 (two) Medical times Branch daily before breakfast and dinner for 30 days. ranolazine 2019-08- No [id number] 500mg Take 1 Univers 500 mg 12 0-10 11-10 tablet by ity of hr tablet 00:00: 05:59 mouth [place] 00 :00 every 12 Medical (twelve) Branch hours for 30 days. metoprolol 2019-08- No [id number] 100mg Take 1 Univers succinate 0-10 11-10 tablet by ity of XL 100 mg 00:00: 05:59 mouth 2 [place] 24 [place] 00 :00 (two) Medical tablet times Branch daily for 30 days. glipiZIDE 5 2019-08- No [id number] 5mg Take 1 Univers mg tablet 0-10 11-10 tablet by ity of 00:00: 05:59 mouth 2 [place] 00 :00 (two) Medical times Branch daily before breakfast and dinner for 30 days. ranolazine 2019-08- No [id number] 500mg Take 1 Univers 500 mg 12 0-10 11-10 tablet by ity of hr tablet 00:00: 05:59 mouth [place] 00 :00 every 12 Medical (twelve) Branch hours for 30 days. metoprolol 2019-08- No [id number] 100mg Take 1 Univers succinate 0-10 11-10 tablet by ity of XL 100 mg 00:00: 05:59 mouth 2 [place] 24 [place] 00 :00 (two) Medical tablet times Branch daily for 30 days. glipiZIDE 5 2019-08- No [id number] 5mg Take 1 Univers mg tablet 0-10 11-10 tablet by ity of 00:00: 05:59 mouth 2 [place] 00 :00 (two) Medical times Branch daily [...] IV Push, ity of (PF)) 21:45: Q6HPRN, [place] injection 4 16 Starting Medi zaina mg Fri Branch 06/02/20 at 1645, Until Discontinu ed, Routine, Nausea and Vomiting (N/V) morpHINE 2019-08- No 2mg 2 mg, Slow [facility] injection 2 0-09 10-10 IV Push, ity of mg 21:43: 02:27 Q6HPRN, [place] 22 :02 Starting Medical Fri Branch 06/02/20 at 1643, Until 06/02/20 at 2127, Routine, Chest pain acetaminoph 2019-08 Yes 650mg 650 mg, [facility] en 0-09 Oral, ity of (TYLENOL) 21:07: Q6HPRN, [place] tablet 650 06 Starting Medic al mg Fri Branch 06/02/20 at 1607, Until Discontinu ed, Routine, Pain (scale 1-3) FENTanyl PF 2019-08- No 75ug 75 mcg, [facility] (SUBLIMAZE 006-02 Slow IV ity o f (PF)) 19:45: 18:45 Push, [place] injection 00 :00 ONCE, 1 Medical 75 mcg dose, Fri Branch 06/02/20 at 1445, STAT sulfur 2019-08 2020- No 5mL 5 mL, Univers hexafluorid 006-02 Intravenou i ty of e microsphr 19:30: 19:25 s, ONCE, 1 [place] (LUMASON) 00 :00 dose, Fri Medic al injection 5 06/02/20 at Br anch mL 1430, Routine
produce service team member approving Restricted medication : KATHRYN MEREDITH ondansetron 2019-08- No 4mg 4 mg, Slow Univers (ZOFRAN 06-02 IV Push, ity of (PF)) 18:00: 17:20 ONCE, 1 [place] injection 4 00 :00 dose, Fri Med ical mg 06/02/20 at Branch 1300, RADHA FENTanyl PF 2019-08- No 100ug 100 mcg, Univers (SUBLIMAZE 006-02 Slow IV ity o f (PF)) 18:00: 17:20 Push, [place] injection 00 :00 ONCE, 1 Medical 100 mcg dose, Fri Branch 06/02/20 at 1300, Routine aspirin 2019-08- No 325mg 325 mg, Unive rs tablet 325 006-02 Oral, ity of mg 16:45: 17:20 ONCE, [...] 0900, Until Discontinu ed, Routine aspirin 81 2019- Yes [id number] 81mg Take 1 [facility] mg chewable 0-05 tablet by ity of tablet 00:00: mouth [place] 00 daily. Medical Branch aspirin 81 2019- Yes [id number] 81mg Take 1 [facility] [place] mg chewable 0-05 tablet by ity of tablet 00:00: mouth [place] 00 daily. Medical Branch aspirin 81 2020- Yes [id number] 81mg Take 1 [facility] [place] mg chewable 0-05 tablet by ity of tablet 00:00: mouth [place] 00 daily. Medical Branch aspirin 81 2019- Yes [id number] 81mg Take 1 [facility] [place] mg chewable 0-05 tablet by ity of tablet 00:00: mouth [place] 00 daily. Medical Branch aspirin 81 2019- Yes [id number] 81mg Take 1 [facility] [place] mg chewable 0-05 tablet by ity of tablet 00:00: mouth [place] 00 daily. Medical Branch aspirin 81 2019- Yes [id number] 81mg Take 1 [facility] [place] mg chewable 0-05 tablet by ity of tablet 00:00: mouth [place] 00 daily. Medical Branch aspirin 81 2019- Yes [id number] 81mg Take 1 [facility] [place] mg chewable 0-05 tablet by ity of tablet 00:00: mouth [place] 00 daily. Medical Branch aspirin 81 2019- Yes [id number] 81mg Take 1 [facility] [place] mg chewable 0-05 tablet by ity of tablet 00:00: mouth [place] 00 daily. Medical Branch aspirin 81 2020- Yes [id number] 81mg Take 1 [facility] [place] mg chewable 0-05 tablet by ity of tablet 00:00: mouth [place] 00 daily. Medical Branch aspirin 81 2020- Yes [id number] 81mg Take 1 [facility] [place] mg chewable 0-05 tablet by ity of tablet 00:00: mouth [place] 00 daily. Medical Branch aspirin 81 2020- Yes [id number] 81mg Take 1 [facility] [place] mg chewable 0-05 tablet by ity of tablet 00:00: mouth [place] 00 daily. Medical Branch aspirin 81 2020- Yes [id number] 81mg Take 1 [facility] [place] mg chewable 0-05 tablet by ity of tablet 00:00: mouth [place] 00 daily. Medical Branch aspirin 81 2020- Yes [id number] 81mg Take 1 [facility] [place] mg chewable 0-05 tablet by ity of tablet 00:00: mouth [place] 00 daily. Medical Branch aspirin 81 2020- Yes [id number] 81mg Take 1 [facility] [place] mg chewable 0-05 tablet by ity of tablet 00:00: mouth [place] 00 daily. Medical Branch aspirin 81 2019-08 Yes [id number] 81mg Take 1 [facility] [place] mg chewable 0-05 tablet by ity of tablet 00:00: mouth [place] 00 daily. Medical Branch aspirin 81 2019-08 Yes [id number] 81mg Take 1 [facility] [place] mg chewable 0-05 tablet by ity of tablet 00:00: mouth [place] 00 daily. Medical Branch aspirin 81 2019-08 Yes [id number] 81mg Take 1 [facility] [place] mg chewable 0-05 tablet by ity of tablet 00:00: mouth [place] 00 daily. Medical Branch aspirin 81 2019-08 Yes [id number] 81mg Take 1 [facility] [place] mg chewable 0-05 tablet by ity of tablet 00:00: mouth [place] 00 daily. Medical Branch aspirin 81 2019-08- No [id number] 81mg Take 1 U nivers mg chewable [...] by ity of tablet 20:49: mouth 2 [place] 53 (two) Medical times Branch daily with meals. fluticasone 2019-08 Yes 1{spray Use 1 [facility] [place] propionate 0-04 } [place] in ity o f (FLONASE 20:49: each [place] ALLERGY 53 nostril Medical RELIEF) 50 daily. Branch mcg/actuati on nasal spray diclofenac 2019-08 Yes 50mg Take 50 mg U nivers 50 mg EC 0-04 by mouth ity of tablet 20:49: daily. [place] [address] Medical Branch methocarbam 2019-08 Yes 500mg Take 500 U nivers ol 0-04 mg by ity of (ROBAXIN) 20:49: mouth 2 [place] 500 mg 53 (two) Medical tablet times Branch daily. metFORMIN 2019- Yes 1000mg Take 1,000 Univers 1,000 mg 0-04 mg by ity of tablet 20:49: mouth 2 [place] 53 (two) Medical times Branch daily with meals. fluticasone 2019-08 Yes 1{spray Use 1 [place] propionate 0-04 } [place] in ity o f (FLONASE 20:49: each [place] ALLERGY 53 nostril Medical RELIEF) 50 daily. Branch mcg/actuati on nasal spray diclofenac 2019-08 Yes 50mg Take 50 mg U nivers 50 mg EC 0-04 by mouth ity of tablet 20:49: daily. [place] 53 Medical Branch flu vaccine 2019-08 2020- No .5mL 0.5 mL, [facility] 6 months 0-04 10-04 Intramuscu ity of and up (PF) 17:15: 18:17 lar, ONCE, [place] (FLUZONE 00 :00 1 dose, Medical QUAD [place] Branch 05/28/20 at (PF)) 1215, syringe 0.5 Routine mL pneumococca 2019-08 2020- No .5mL 0.5 mL, [facility] l vac 0-04 10-04 Intramuscu ity of polyvalent 17:15: 18:58 lar, ONCE, [place] (PNEUMOVAX- 00 :00 1 dose, Medic al 23) [facility] injection 05/28/20 at 0.5 mL 1215, Routine metoprolol 2019-08 2020- No 50mg Take 50 mg Univers tartrate 50 0-04 10-04 by mouth 2 i ty of mg tablet 16:26: 00:00 (two) [place] 33 :00 times Medical daily. [place] buprenorphi 2019-08 2020- No 10{patc Apply 10 Univers ne 10 0-04 10-04 h} Patches to ity of mcg/hour 16:26: 00:00 skin. [place] patch 33 :00 [facility] fenofibrate 2019-08 Yes 67mg 67 mg, Univ ers micronized 0-04 Oral, ity of (LOFIBRA) 14:00: DAILY, [place] capsule 67 00 First dose Med ical mg on [facility] 05/28/20 at 0900, Until Discontinu ed, Routine isosorbide 2019-08 Yes 120mg 120 mg, Uni vers mononitrate 0-04 Oral, ity of (IMDUR) 24 14:00: DAILY, [place] hr tablet 00 First dose Medi zaina 120 mg (after Branch last modificati on) on [place] 05/28/20 at 0900, Until Discontinu ed, Routine magnesium 2019-08- No 2g 2 g, IV Univ ers sulfate in 0-12 02- Piggyback, it y of water 2 06:30: 09:13 ONCE, 1 [place] gram/50 mL 00 :00 dose, [facility] zaina (4 %) 05/28/20 at [place] infusion 2 0130, g Routine KCL 2019-08- No 20meq 20 mEq, Univers (KLOR-CON 0-04 10-04 Oral, ity of M20) tablet 06:30: 09:13 ONCE, 1 [place] 20 mEq 00 :00 dose, [facility] 05/28/20 at Branch 0130, Routine morpHINE 2019-08- No 2mg 2 mg, Slow [facility] [place] injection 2 0-12 02- IV Push, ity of mg 04:21: 04:39 ONCE, 1 [place] 00 :00 dose, [facility] 05/27/20 at [place] 2330, Routine morpHINE 2019-08- No 2mg 2 mg, Slow [place] injection 2 0- 10- IV Push, ity of mg 04:00: 02:51 ONCE, 1 [place] 00 :00 dose, [facility] 05/27/20 at Branch 2300, Routine hydrOXYzine 2019-08- No 50mg 50 mg, Uni vers (ATARAX) 0-04 10-04 Oral, ity of tablet 50 03:00: 04:12 ONCE, 1 [place] mg 00 :00 dose, [facility] 05/27/20 at Branch 2200, Routine metoprolol 2019-08 Yes 100mg 100 mg, Uni vers tartrate 0-04 Oral, BID, ity o f (LOPRESSOR) 01:00: First dose [place] tablet 100 00 (after Medical mg last Branch modificati on) on [facility] 05/27/20 at 2000, Until Discontinu ed, Routine heparin 2019-08 Yes 5000U 5,000 Univers (porcine) 0-04 Units, ity of injection 01:00: Subcutaneo [place] 5,000 Units 00 us, Q12H, Med ical First dose Branch on [facility] 05/27/20 at 2000, Until Discontinu ed, Routine fenofibrate 2019-08 Yes [id number] 67mg Take 1 U nivers micronized 0-04 capsule by ity of 67 mg 00:00: mouth [place] capsule 00 daily. Medical Branch isosorbide 2020-1 Yes [id number] 120mg Take 1 U nivers mononitrate 0-04 tablet by ity of 120 mg 24 00:00: mouth [place] hr tablet 00 daily. Medical Branch lisinopriL 2020-1 Yes [id number] 2.5mg Take 1 U nivers 2.5 mg 0-04 tablet by ity of tablet 00:00: mouth [place] 00 daily. Medical Branch atorvastati 2020-1 Yes [id number] 80mg Take 1 U nivers n 80 mg 0-04 tablet by ity of tablet 00:00: mouth [place] 00 daily. Medical Branch clopidogreL 2020-1 Yes [id number] 75mg Take 1 U nivers 75 mg 0-04 tablet by ity of tablet 00:00: mouth [place] 00 daily. Medical Branch fenofibrate 2020-1 Yes [id number] 67mg Take 1 U nivers micronized 0-04 capsule by ity of 67 mg 00:00: mouth [place] capsule 00 daily. Medical Branch isosorbide 2020-1 Yes [id number] 120mg Take 1 U nivers mononitrate 0-04 tablet by ity of 120 mg 24 00:00: mouth [place] hr tablet 00 daily. Medical Branch lisinopriL 2020-1 Yes [id number] 2.5mg Take 1 U nivers 2.5 mg 0-04 tablet by ity of tablet 00:00: mouth [place] 00 daily. Medical Branch atorvastati 2020-1 Yes [id number] 80mg Take 1 U nivers n 80 mg 0-04 tablet by ity of tablet 00:00: mouth [place] 00 daily. Medical Branch clopidogreL 2020-1 Yes [id number] 75mg Take 1 U nivers 75 mg 0-04 tablet by ity of tablet 00:00: mouth [place] 00 daily. Medical Branch fenofibrate 2020-1 Yes [id number] 67mg Take 1 U nivers micronized 0-04 capsule by ity of 67 mg 00:00: mouth [place] capsule 00 daily. Medical Branch isosorbide 2020-1 Yes [id number] 120mg Take 1 U nivers mononitrate 0-04 tablet by ity of 120 mg 24 00:00: mouth [place] hr tablet 00 daily. Medical Branch lisinopriL 2020-1 Yes [id number] 2.5mg Take 1 U nivers 2.5 mg 0-04 tablet by ity of tablet 00:00: mouth [place] 00 daily. Medical Branch atorvastati 2020-1 Yes [id number] 80mg Take 1 U nivers n 80 mg 0-04 tablet by ity of tablet 00:00: mouth [place] 00 daily. Medical Branch clopidogreL 2020-1 Yes [id number] 75mg Take 1 U nivers 75 mg 0-04 tablet by ity of tablet 00:00: mouth [place] 00 daily. Medical Branch fenofibrate 2020-1 Yes [id number] 67mg Take 1 U nivers micronized 0-04 capsule by ity of 67 mg 00:00: mouth [place] capsule 00 daily. Medical Branch isosorbide 2020-1 Yes [id number] 120mg Take 1 U nivers mononitrate 0-04 tablet by ity of 120 mg 24 00:00: mouth [place] hr tablet 00 daily. Medical Branch lisinopriL 2020-1 Yes [id number] 2.5mg Take 1 U nivers 2.5 mg 0-04 tablet by ity of tablet 00:00: mouth [place] 00 daily. Medical Branch atorvastati 2020-1 Yes [id number] 80mg Take 1 U nivers n 80 mg 0-04 tablet by ity of tablet 00:00: mouth [place] 00 daily. Medical Branch clopidogreL 2020-1 Yes [id number] 75mg Take 1 U nivers 75 mg 0-04 tablet by ity of tablet 00:00: mouth [place] 00 daily. Medical Branch fenofibrate 2020-1 Yes [id number] 67mg Take 1 U nivers micronized 0-04 capsule by ity of 67 mg 00:00: mouth [place] capsule 00 daily. Medical Branch isosorbide 2020-1 Yes [id number] 120mg Take 1 U nivers mononitrate 0-04 tablet by ity of 120 mg 24 00:00: mouth [place] hr tablet 00 daily. Medical Branch lisinopriL 2020-1 Yes [id number] 2.5mg Take 1 U nivers 2.5 mg 0-04 tablet by ity of tablet 00:00: mouth [place] 00 daily. Medical Branch atorvastati 2020-1 Yes [id number] 80mg Take 1 U nivers n 80 mg 0-04 tablet by ity of tablet 00:00: mouth [place] 00 daily. Medical Branch clopidogreL 2020-1 Yes [id number] 75mg Take 1 U nivers 75 mg 0-04 tablet by ity of tablet 00:00: mouth [place] 00 daily. Medical Branch fenofibrate 2020-1 Yes [id number] 67mg Take 1 U nivers micronized 0-04 capsule by ity of 67 mg 00:00: mouth [place] capsule 00 daily. Medical Branch isosorbide 2020-1 Yes [id number] 120mg Take 1 U nivers mononitrate 0-04 tablet by ity of 120 mg 24 00:00: mouth [place] hr tablet 00 daily. Medical Branch lisinopriL 2020-1 Yes [id number] 2.5mg Take 1 U nivers 2.5 mg 0-04 tablet by ity of tablet 00:00: mouth [place] 00 daily. Medical Branch atorvastati 2020-1 Yes [id number] 80mg Take 1 U nivers n 80 mg 0-04 tablet by ity of tablet 00:00: mouth [place] 00 daily. Medical Branch clopidogreL 2020-1 Yes [id number] 75mg Take 1 U nivers 75 mg 0-04 tablet by ity of tablet 00:00: mouth [place] 00 daily. Medical Branch fenofibrate 2020-1 Yes [id number] 67mg Take 1 U nivers micronized 0-04 capsule by ity of 67 mg 00:00: mouth [place] capsule 00 daily. Medical Branch isosorbide 2020-1 Yes [id number] 120mg Take 1 U nivers mononitrate 0-04 tablet by ity of 120 mg 24 00:00: mouth [place] hr tablet 00 daily. [facility] atorvastati 2020-1 Yes [id number] 80mg Take 1 U nivers n 80 mg 0-04 tablet by ity of tablet 00:00: mouth [place] 00 daily. [facility] clopidogreL 2020-1 Yes [id number] 75mg Take 1 U nivers 75 mg 0-04 tablet by ity of tablet 00:00: mouth [place] 00 daily. [facility] fenofibrate 2020-1 Yes [id number] 67mg Take 1 U nivers micronized 0-04 capsule by ity of 67 mg 00:00: mouth [place] capsule 00 daily. [facility] isosorbide 2020-1 Yes [id number] 120mg Take 1 U nivers mononitrate 0-04 tablet by ity of 120 mg 24 00:00: mouth [place] hr tablet 00 daily. [facility] atorvastati 2020-1 Yes [id number] 80mg Take 1 U nivers n 80 mg 0-04 tablet by ity of tablet 00:00: mouth [place] 00 daily. [facility] clopidogreL 2020-1 Yes [id number] 75mg Take 1 U nivers 75 mg 0-04 tablet by ity of tablet 00:00: mouth [place] 00 daily. [facility] fenofibrate 2020-1 Yes [id number] 67mg Take 1 U nivers micronized 0-04 capsule by ity of 67 mg 00:00: mouth [place] capsule 00 daily. [facility] isosorbide 2020-1 Yes [id number] 120mg Take 1 U nivers mononitrate 0-04 tablet by ity of 120 mg 24 00:00: mouth [place] hr tablet 00 daily. [facility] atorvastati 2020-1 Yes [id number] 80mg Take 1 U nivers n 80 mg 0-04 tablet by ity of tablet 00:00: mouth [place] 00 daily. [facility] clopidogreL 2020-1 Yes [id number] 75mg Take 1 U nivers 75 mg 0-04 tablet by ity of tablet 00:00: mouth [place] 00 daily. [facility] fenofibrate 2020-1 Yes [id number] 67mg Take 1 U nivers micronized 0-04 capsule by ity of 67 mg 00:00: mouth [place] capsule 00 daily. [facility] isosorbide 2020-1 Yes [id number] 120mg Take 1 U nivers mononitrate 0-04 tablet by ity of 120 mg 24 00:00: mouth [place] hr tablet 00 daily. [facility] atorvastati 2020-1 Yes [id number] 80mg Take 1 U nivers n 80 mg 0-04 tablet by ity of tablet 00:00: mouth [place] 00 daily. [facility] clopidogreL 2020-1 Yes [id number] 75mg Take 1 U nivers 75 mg 0-04 tablet by ity of tablet 00:00: mouth [place] 00 daily. [facility] fenofibrate 2020-1 Yes [id number] 67mg Take 1 U nivers micronized 0-04 capsule by ity of 67 mg 00:00: mouth [place] capsule 00 daily. [facility] isosorbide 2020-1 Yes [id number] 120mg Take 1 U nivers mononitrate 0-04 tablet by ity of 120 mg 24 00:00: mouth [place] hr tablet 00 daily. [facility] atorvastati 2020-1 Yes [id number] 80mg Take 1 U nivers n 80 mg 0-04 tablet by ity of tablet 00:00: mouth [place] 00 daily. [facility] clopidogreL 2020-1 Yes [id number] 75mg Take 1 U nivers 75 mg 0-04 tablet by ity of tablet 00:00: mouth [place] 00 daily. [facility] fenofibrate 2020-1 Yes [id number] 67mg Take 1 U nivers micronized 0-04 capsule by ity of 67 mg 00:00: mouth [place] capsule 00 daily. [facility] isosorbide 2020-1 Yes [id number] 120mg Take 1 U nivers mononitrate 0-04 tablet by ity of 120 mg 24 00:00: mouth [place] hr tablet 00 daily. [facility] atorvastati 2020-1 Yes [id number] 80mg Take 1 U nivers n 80 mg 0-04 tablet by ity of tablet 00:00: mouth [place] 00 daily. [facility] clopidogreL 2020-1 Yes [id number] 75mg Take 1 U nivers 75 mg 0-04 tablet by ity of tablet 00:00: mouth [place] 00 daily. [facility] fenofibrate 2020-1 Yes [id number] 67mg Take 1 U nivers micronized 0-04 capsule by ity of 67 mg 00:00: mouth [place] capsule 00 daily. [facility] isosorbide 2020-1 Yes [id number] 120mg Take 1 U nivers mononitrate 0-04 tablet by ity of 120 mg 24 00:00: mouth [place] hr tablet 00 daily. [facility] atorvastati 2020-1 Yes [id number] 80mg Take 1 U nivers n 80 mg 0-04 tablet by ity of tablet 00:00: mouth [place] 00 daily. [facility] fenofibrate 2020-1 Yes [id number] 67mg Take 1 U nivers micronized 0-04 capsule by ity of 67 mg 00:00: mouth [place] capsule 00 daily. [facility] isosorbide 2020-1 Yes [id number] 120mg Take 1 U nivers mononitrate 0-04 tablet by ity of 120 mg 24 00:00: mouth [place] hr tablet 00 daily. [facility] atorvastati 2020-1 Yes [id number] 80mg Take 1 U nivers n 80 mg 0-04 tablet by ity of tablet 00:00: mouth [place] 00 daily. [facility] fenofibrate 2020-1 Yes [id number] 67mg Take 1 U nivers micronized 0-04 capsule by ity of 67 mg 00:00: mouth [place] capsule 00 daily. [facility] isosorbide 2020-1 Yes [id number] 120mg Take 1 U nivers mononitrate 0-04 tablet by ity of 120 mg 24 00:00: mouth [place] hr tablet 00 daily. [facility] atorvastati 2020-1 Yes [id number] 80mg Take 1 U nivers n 80 mg 0-04 tablet by ity of tablet 00:00: mouth [place] 00 daily. [facility] fenofibrate 2020-1 Yes [id number] 67mg Take 1 U nivers micronized 0-04 capsule by ity of 67 mg 00:00: mouth [place] capsule 00 daily. [facility] isosorbide 2020-1 Yes [id number] 120mg Take 1 U nivers mononitrate 0-04 tablet by ity of 120 mg 24 00:00: mouth [place] hr tablet 00 daily. [facility] metoprolol 2020-1 Yes [id number] 100mg Take 1 U nivers tartrate 0-04 tablet by ity of 100 mg 00:00: mouth 2 [place] tablet 00 (two) Medical times Branch daily. atorvastati 2019-1 Yes [id number] 80mg Take 1 U nivers n 80 mg 0-04 tablet by ity of tablet 00:00: mouth [place] 00 daily. [facility] clopidogreL 2019-1 Yes [id number] 75mg Take 1 U nivers 75 mg 0-04 tablet by ity of tablet 00:00: mouth [place] 00 daily. [facility] fenofibrate 2019-1 Yes [id number] 67mg Take 1 U nivers micronized 0-04 capsule by ity of 67 mg 00:00: mouth [place] capsule 00 daily. [facility] isosorbide 2020-1 Yes [id number] 120mg Take 1 U nivers mononitrate 0-04 tablet by ity of 120 mg 24 00:00: mouth [place] hr tablet 00 daily. [facility] lisinopriL 2020-1 Yes [id number] 2.5mg Take 1 U nivers 2.5 mg 0-04 tablet by ity of tablet 00:00: mouth [place] 00 daily. [facility] metoprolol 2020-1 Yes [id number] 100mg Take 1 U nivers tartrate 0-04 tablet by ity of 100 mg 00:00: mouth 2 [place] tablet 00 (two) Medical times Branch daily. atorvastati 2019-1 Yes [id number] 80mg Take 1 U nivers n 80 mg 0-04 tablet by ity of tablet 00:00: mouth [place] 00 daily. [facility] Branch clopidogreL 2019- Yes [id number] 75mg Take 1 U nivers 75 mg 0-04 tablet by ity of tablet 00:00: mouth [place] 00 daily. [facility] fenofibrate 2019- Yes [id number] 67mg Take 1 U nivers micronized 0-04 capsule by ity of 67 mg 00:00: mouth [place] capsule 00 daily. [facility] isosorbide 2019- Yes [id number] 120mg Take 1 U nivers mononitrate 0-04 tablet by ity of 120 mg 24 00:00: mouth [place] hr tablet 00 daily. [facility] Branch lisinopriL 2019- Yes [id number] 2.5mg Take 1 U nivers 2.5 mg 0-04 tablet by ity of tablet 00:00: mouth [place] 00 daily. [facility] Branch atorvastati 2019-08 Yes [id number] 80mg Take 1 U nivers n 80 mg 0-04 tablet by ity of tablet 00:00: mouth [place] 00 daily. [facility] clopidogreL 2019- Yes [id number] 75mg Take 1 U nivers 75 mg 0-04 tablet by ity of tablet 00:00: mouth [place] 00 daily. [facility] atorvastati 2019-2020- No [id number] 80mg Take 1 [facility] n 80 mg 0-04 05-25 tablet by ity of tablet 00:00: 00:00 mouth [place] 00 :00 daily. [facility] fenofibrate 2019-08- No [id number] 67mg Take 1 [facility] micronized 0-04 05-25 capsule by it y of 67 mg 00:00: 00:00 mouth [place] capsule 00 :00 daily. Medical Branch isosorbide 2019-08- No [id number] 120mg Take 1 [facility] mononitrate 0-04 05-25 tablet by it y of 120 mg 24 00:00: 00:00 mouth [place] hr tablet 00 :00 daily. Medical Branch clopidogreL 2019-08- No [id number] 75mg Take 1 [facility] 75 mg 0-04 04-27 tablet by ity of tablet 00:00: 00:00 mouth [place] 00 :00 daily. Medical Branch lisinopriL 2019-08- No [id number] 2.5mg Take 1 [facility] 2.5 mg 0-04 01-10 tablet by ity of tablet 00:00: 00:00 mouth [place] 00 :00 daily. Medical Branch nitroglycer 2019- 2020- No [id number] .4mg Place 1 [facility] in 0.4 mg 0-04 11-04 tablet ity of sublingual 00:00: 05:59 under the [place] tablet 00 :00 tongue Medical every 5 Branch (five) minutes as needed for Chest pain for up to 30 days. nitroglycer 2019- 2020- No [id number] .4mg Place 1 [facility] in 0.4 mg 0-04 11-04 tablet ity of sublingual 00:00: 05:59 under the [place] tablet 00 :00 tongue Medical every 5 Branch (five) minutes as needed for Chest pain for up to 30 days. nitroglycer 2019- 2020- No [id number] .4mg Place 1 [facility] in 0.4 mg 0-04 11-04 tablet ity of sublingual 00:00: 05:59 under the [place] tablet 00 :00 tongue Medical every 5 Branch (five) minutes as needed for Chest pain for up to 30 days. nitroglycer 2019- 2020- No [id number] .4mg Place 1 [facility] in 0.4 mg 0-04 11-04 tablet ity of sublingual 00:00: 05:59 under the [place] tablet 00 :00 tongue Medical every 5 Branch (five) minutes as needed for Chest pain for up to 30 days. nitroglycer 2019- 2020- No [id number] .4mg Place 1 [facility] in 0.4 mg 0-04 11-04 tablet ity of sublingual 00:00: 05:59 under the [place] tablet 00 :00 tongue Medical every 5 Branch (five) minutes as needed for Chest pain for up to 30 days. nitroglycer 2019-08 2020- No [id number] .4mg Place 1 Univers in 0.4 mg 0-04 11-04 tablet ity of sublingual 00:00: 05:59 under the [place] tablet 00 :00 tongue Medical every 5 Branch (five) minutes as needed for Chest pain for up to 30 days. nitroglycer 2019- 2020- No [id number] .4mg Place 1 Univers in 0.4 mg 0-04 11-04 tablet ity of sublingual 00:00: 05:59 under the [place] tablet 00 :00 tongue Medical every 5 Branch (five) minutes as needed for Chest pain for up to 30 days. metoprolol 2019-1 2020- No [id number] 100mg Take 1 Univers tartrate 0-04 10-10 tablet by ity o f 100 mg 00:00: 00:00 mouth 2 [place] tablet 00 :00 (two) Medical times Branch daily. ondansetron 2019-08 Yes 4mg 4 mg, Slow [...] mg 00 Starting Medica l tablet 1 [facility] Branch tablet 05/27/20 at 1115, Until Discontinu ed, Routine, Pain (scale 4-6), Pain (scale 7-10) clopidogreL 2019-08 Yes 75mg 75 mg, Univ ers (PLAVIX) 0-03 Oral, ity of tablet 75 14:00: DAILY, [place] mg 00 First dose Medical on Sat Branch 05/27/20 at 0900, Until Discontinu ed, Routine
produce service team member approving Restricted medication : JUANITO TALBERT hydrOXYzine 2019-08- No 50mg 50 mg, Uni vers (ATARAX) 0-03 10-03 Oral, ity of tablet 50 02:12: 03:04 ONCE, 1 [place] mg 00 :00 dose, Fri Medical 05/26/20 at Branch 2115, Routine heparin 2019-08 2020- No Slow IV Univer s 1,000 0-02 10-02 Push, ity of unit/mL 23:42: 23:42 TITRATE - [place] injection 15 :15 FOR Medical PROCEDURE Branch USE, 1 dose, Starting 05/26/20 at 1842, Until Fri05/26/20 at 1842, Routine midazolam 2019-08- No IV Push, Uni vers (VERSED) 0-02 10-02 TITRATE - ity o f injection 23:24: 23:24 FOR [place] 57 :57 PROCEDURE Medical USE, 1 Branch dose, Starting 05/26/20 at 1824, Until Fri05/26/20 at 1824, Routine FENTanyl PF 2019-08- No Slow IV Un lizbeth (SUBLIMAZE 0-02 10-02 Push, ity of (PF)) 22:51: 22:51 TITRATE - [place] injection 36 :36 FOR Medical PROCEDURE Branch USE, 1 dose, Starting Fri05/26/20 at 1751, Until Fri05/26/20 at 1751, Routine FENTanyl PF 2019-08- No Slow IV Un lizbeth (SUBLIMAZE 0-02 10-02 Push, ity of (PF)) 22:46: 22:46 TITRATE - [place] injection 00 :00 FOR Medical PROCEDURE Branch USE, 1 dose, Starting Fri05/26/20 at 1746, Until Fri05/26/20 at 1746, Routine FENTanyl PF 2019-08- No [...] Branch dose, Starting Fri05/26/20 at 1729, Until 05/26/20 at 1729, Routine heparin 2019-08- No Slow IV Univer s 1,000 0-02 10-02 Push, ity of unit/mL 22:20: 22:20 TITRATE - [place] injection 00 :00 FOR Medical PROCEDURE Branch USE, 1 dose, Starting 05/26/20 at 1720, Until 05/26/20 at 1720, Routine lidocaine 2019-08- No Infiltrati U nivers 1% (PF) 0-02 10-02 on, ity of (XYLOCAINE) 22:15: 22:15 TITRATE - [place] injection 00 :00 FOR Medical PROCEDURE Branch USE, 1 dose, Starting Fri05/26/20 at 1715, Until Fri05/26/20 at 1715, Routine FENTanyl PF 2019-08- No Slow IV Un lizbeth (SUBLIMAZE 005-26 Push, ity of (PF)) 22:10: 22:10 TITRATE - [place] injection 00 :00 FOR Medical PROCEDURE Branch USE, 1 dose, Starting Fri05/26/20 at 1710, Until Fri05/26/20 at 1710, Routine midazolam 2019-08- No IV Push, Uni vers (VERSED) 005-26 TITRATE - ity o f injection 22:10: 22:10 FOR [place] 00 :00 PROCEDURE Medical USE, 1 Branch dose, Starting Fri05/26/20 at 1710, Until Fri05/26/20 at 1710, Routine isosorbide 2019-08- No 60mg 60 mg, Univ ers mononitrate 005-27 Oral, ity of (IMDUR) 24 14:00: 16:25 DAILY, [place] hr tablet 00 :51 First dose Medi zaina 60 mg (after Branch last modificati on) on Fri05/26/20 at 0900, Until Discontinu ed, Routine clopidogreL 2019-08- No 600mg 600 mg, U nivers (PLAVIX) [...] at 0800, Until Discontinu ed, Routine metoprolol 2019-08- No 75mg 75 mg, Univ ers tartrate 005-27 Oral, BID, ity of (LOPRESSOR) 13:00: 20:18 First dose [place] tablet 75 00 :19 (after Medical mg last Branch modificati on) on Fri05/26/20 at 0800, Until Discontinu ed, Routine magnesium 2019-08- No 2g 2 g, IV Univ ers sulfate in 005-26 Piggyback, it y of water 2 11:00: 11:30 ONCE, 1 [place] gram/50 mL 00 :00 dose, Fri Medi zaina (4 %) 05/26/20 at [place] infusion 2 0600, g Routine hydrOXYzine 2019-08- No 50mg 50 mg, Uni vers (ATARAX) 005-26 Oral, ity of tablet 50 06:00: 05:27 ONCE, 1 [place] mg 00 :00 dose, [facility] 05/26/20 at Branch 0100, Routine morpHINE 2019-08- No 2mg 2 mg, Slow Un lizbeth injection 2 005-27 IV Push, ity of mg 02:48: 16:01 Q6HPRN, [place] 35 :25 Starting Medical [facility] Branch 05/25/20 at 2148, Until 05/27/20 at 1101, Routine, Pain (scale 7-10) HYDROcodone 2019-08- No 1{tbl} 1 tablet, Univers -acetaminop 005-27 Oral, ity of hen (NORCO) 20:30: 16:01 Q4HPRN, [place] 10-325 mg 00 :25 Starting Medica l tablet 1 [facility] tablet 05/25/20 at 1530, Until 05/27/20 at 1101, Routine, Pain (scale 4-6) morpHINE 2019-08- No 2mg 2 mg, Slow Un l[place] injection 2 005-25 IV Push, ity of mg 18:45: 17:44 ONCE, 1 [place] 00 :00 dose, [facility] Medical 05/25/20 at Branch 1345, Routine isosorbide 2019-08- No 30mg 30 mg, Univ ers mononitrate 005-26 Oral, ity of (IMDUR) 24 16:15: 12:11 DAILY, [place] hr tablet 00 :02 First dose Medi zaina 30 mg on [facility] Branch 05/25/20 at 1115, Until Discontinu ed, Routine lidocaine 2019-08- No Infiltrati U nivers 1% (PF) 005-25 on, ity of (XYLOCAINE) 13:46: 13:46 TITRATE - [place] injection 05 :05 FOR Medical PROCEDURE Branch USE, 1 dose, Starting [place] 10 at 0846, Until [place] 05/25/20 at 0846, Routine FENTanyl PF 2019-08- No Slow IV Un lizbeth (SUBLIMAZE 005-25 Push, ity of (PF)) 13:45: 13:45 TITRATE - [place] injection 56 :56 FOR Medical PROCEDURE Branch USE, 1 dose, Starting [place] 10 at 0845, Until [place] 10 at 0845, Routine midazolam 2019-08- No IV Push, Uni vers (VERSED) 005-25 TITRATE - ity o f injection 13:45: 13:45 FOR [place] 52 :52 PROCEDURE Medical USE, 1 Branch dose, Starting [place]athy 10 at 0845, Until [place] 05/25/20 at 0845, Routine FENTanyl PF 2019-08- No Slow IV Un lizbeth (SUBLIMAZE 005-25 Push, ity of (PF)) 13:29: 13:29 TITRATE - [place] injection 09 :09 FOR Medical PROCEDURE Branch USE, 1 dose, Starting [place] 10 at 0829, Until [place] 10 at 0829, Routine midazolam 2019-08- No IV Push, Uni vers (VERSED) 005-25 TITRATE - ity o f injection 13:29: 13:29 FOR [place] 00 :00 PROCEDURE Medical USE, 1 Branch dose, Starting Cathy 10 at 0829, Until [place] 10 at 0829, Routine Sliding 2019-08- Subcutaneo Uni vers Scale 005-26 us, Q4H, ity of Insulin - 04:59: 04:56 First dose [place] Aspart 00 :39 (after Medical (NOVOLOG) + last Branch Fsbg modificati Testing on) on [place] 05/25/20 at 0000, Until Discontinu ed, Routine nitroglycer 2019-08- No 5ug/min 5 mcg/min Univers in 50 mg in 005-27 (1.5 ity of D5W 250 mL 03:30: 16:01 mL/hr), IV [place] infusion 00 :25 Infusion, Medica l RTU CONTINUOUS Branch , Starting 9/30/20 at 2230 glucagon 2019-08 Yes 1mg 1 mg, Univers (GLUCAGEN 0-01 Intramuscu ity of DIAGNOSTIC 02:44: lar, PRN, [...] 1 [place] mg 00 :00 dose, Wed Medical 05/24/20 at Branch 1630, Routine nitroglycer 2019- No 1[in_us 1 Inch, Univers in (NITROL) 05-24 ] Transderma i ty of 2 % 14:45: 14:40 l (Apply [place] ointment 1 00 :00 To Skin), Medi zaina Inch ONCE, 1 Branch dose, 05/24/20 at 0945, Routine heparin 2019- No 1000U/h 1,000 Unive rs 25,000 05-24 [...] Rang e, Dosing and Testing: &nbs p;FOR [facility], [facility], AND [facility] ONLY - aPTT < 35: & nbsp;Bolus 5000 units, increase rate 300 units/hr&a mp;nbsp; - aPTT 35-44:&nbs p; Michael lotus 3000 [...] Q12H once therapeuti c levels are reached.&n bsp;&n bsp; ____ &amp ;nbsp;&nbs p;FOR [facility] ONLY - aPTT < 40: [...] 120: Hold 60 minutes, decrease rate 200 units/hr&a mp;nbsp;&n bsp;Check aPTT 6 hours after initiation , then [...] 05/24/20 at Br anch mL 0930, Routine
produce service team member approving Restricted medication : JULIUS [...] ed, Routine fluticasone 2020-0 Yes 1{spray 1 [place], Univers propionate 05-24 } Nasal, ity of 50 14:00: DAILY, [place] mcg/actuati 00 First dose Me dical on nasal on Fri Branch spray 1 05/24/20 at [place] 0900, Until Discontinu ed, Routine heparin 2020-0 2020- No 4000U 4,000 Univers 1000 05-24 Units, IV ity of unit/mL 13:45: 14:51 Push, [place] injection 00 :00 ONCE, 1 Medical Soln 4,000 dose, Fri Bran ch Units 05/24/20 at 0845, Routine heparin 2020-0 2020- No 3000U FOR Univers (1,000 05-24 1003 REBOLUSING ity of unit/mL, 10 13:30: 05:03 , Starting [place] mL vial) 32 :31 Fri Medical for 05/24/20 at [place] Rebolusing 0830, Until 05/27/20 at 0003, Routine
Dosing based on aPTT testing parameters (refer to continuous heparin drip order).
gabapentin 2020-0 Yes 600mg 600 mg, Uni vers (NEURONTIN) 05-24 Oral, TID, it y of capsule 600 13:00: First dose [place] mg 00 on Fri Medical 05/24/20 at [place] 0800, Until Discontinu ed, Routine methocarbam 2019-0 Yes 750mg 750 mg, Un lizbeth oL 05-24 Oral, QID, ity of (ROBAXIN) 13:00: First dose [place] tablet 750 00 on Fri Medical mg 05/24/20 at [place] 0800, Until Discontinu ed, Routine glipiZIDE 2019-0 2020- No 5mg 5 mg, Univer s (GLUCOTROL) 05-24 Oral, ity of tablet 5 mg 12:30: 00:45 BIDAC, [place] 00 :28 First dose Medical on Fri Branch 05/24/20 at 0730, Until Discontinu ed, Routine maalox:diph 2019- 2020- No 15mL 15 mL, Uni vers enhydrAMINE 05-24 Oral, ity of :lidocaine 02:30: 02:14 ONCE, 1 [place] 2 % viscous 00 :00 dose, Tue Med ical 1:1:1 05/23/20 at [place] (FIRST-MOUT 2130, HWASH BLM) Routine oral suspension 15 mL Sliding 2019- 2020- No Subcutaneo Uni vers Scale 05-24 us, AC+HS, ity of Insulin - 02:00: 00:45 First dose [place] Aspart 00 :28 on [facility] (NOVOLOG) + 05/23/20 at anch Fsbg 2100, Testing Until Discontinu ed, Routine ondansetron 2020-0 2020- No 4mg 4 mg, Slow Univers (ZOFRAN 05-24 1003 IV Push, ity of (PF)) 01:45: 16:25 Q4HPRN, [place] injection 4 11 :41 Starting Medi zaina mg [facility] 05/23/20 at 2045, Until 05/27/20 at 1125, Routine, Nausea and Vomiting (N/V) metoprolol 2019- No 50mg 50 mg, Univ ers tartrate 05-2402 Oral, BID, ity of (LOPRESSOR) 01:30: 12:11 First dose [place] tablet 50 00 :02 on Tue Medical mg 05/23/20 at Branch 2030, Until Discontinu ed, Routine morpHINE 2019- No 2mg 2 mg, Slow Un lizbeth injection 2 05-24 IV Push, ity of mg 01:21: 02:44 Q4HPN, [place] 18 :34 Starting Medical [facility] 05/23/20 at 2020, Until 05/24/20 at 2144, Routine, Pain (scale 7-10), Hold for SBP<110, DBP<60, RR<12, and/or drowsiness /sedation HYDROcodone 2020- No 1{tbl} 1 tablet, Univers -acetaminop 05-24 Oral, ity of hen (NORCO) 01:20: 20:17 Q6HPRN, [place] 10-325 mg 16 :54 Starting Medica l tablet 1 [facility] tablet 05/23/20 at 2020, Until [place] 05/25/20 at 1517, Routine, Pain (scale 4-6) nitroglycer 2019- Yes .4mg 0.4 mg, Uni vers in 05-23 Sublingual ity of (NITROSTAT) 22:00: , Q5MIN [place] sublingual 35 PRN, Medical tablet 0.4 Starting Branc h mg [facility] 05/23/20 at 1700, Until Discontinu ed, Routine, Chest pain acetaminoph 2019-0 Yes 650mg 650 mg, Un lizbeth en 05-23 Oral, ity of (TYLENOL) 22:00: Q6HPRN, [place] tablet 650 20 Starting Medic al mg [facility] 05/23/20 at 1700, Until Discontinu ed, Routine, Pain (scale 1-3) LORazepam 2019-0 2020- No .5mg 0.5 mg, Univ ers (ATIVAN) 05-23 Oral, ity of tablet 0.5 21:55: 22:15 ONCE, 1 [place] mg 00 :00 dose, [facility] Medical 05/23/20 at Branch 1700, RADHA nitroglycer 2020-0 2020- No .4mg 0.4 mg, Un lizbeth in 05-23 Sublingual ity of (NITROSTAT) 21:33: 21:52 , ONCE, 1 [place] sublingual 00 :00 dose, [facility] Medi zaina tablet 0.4 05/23/20 at [facility] mg 1645, RADHA iohexol 2019-0 2020- No 120mL 120 mL, [facility] ([facility]IP[facility] 05-23 Intravenou it y of 350 21:15: 20:55 s, ONCE, 1 [place] BULK-150 00 :00 dose, Tue Medica l mL) 05/23/20 at [place] injection 1615, 120 mL Routine NaCl 0.9% 0 2020- No 500mL at 999 [facility] ers (NS) bolus 05-23 mL/hr, 500 it y of infusion 20:41: 22:08 mL, IV [place] 500 mL 00 :00 Infusion, Medical ONCE, 1 [place] dose, [facility] 05/23/20 at 1545, STAT ondansetron 2019-0 2020- No 4mg 4 mg, Slow Univers (ZOFRAN 05-23 IV Push, ity of (PF)) 20:41: 21:29 ONCE, 1 [place] injection 4 00 :00 dose, [facility] Med ical mg 05/23/20 at Branch 1545, RADHA morpHINE 2019-0 2020- No 4mg 4 mg, Slow Un lizbeth injection 4 05-23 IV Push, ity of mg 20:41: 21:29 ONCE, 1 [place] 00 :00 dose, [facility] Medical 05/23/20 at Branch 1545, STAT aspirin 2020-0 2020- No 325mg 325 mg, [facility] rs tablet 325 05-23 Oral, ity of mg 19:45: 19:41 ONCE, 1 [place] 00 :00 dose, [facility] Medical 05/23/20 at Branch 1445, STAT insulin 2020-0 2020- No 10U 10 Units, Univ ers regular 10-30 Slow IV ity of human 20:45: 19:57 Push, [place] (HUMULIN R) 00 :00 ONCE, 1 Medic al injection dose, [place] Branc h 10 Units 10/31/19 at 1545, Routine metoprolol 2019-0 2020- No 50mg 50 mg, Univ ers tartrate 10-30 Oral, ity of (LOPRESSOR) 20:00: 18:57 ONCE, 1 [place] tablet 50 00 :00 dose, Sun Medic al mg 10/31/19 at Branch 1500, Routine aspirin 2019- 2020- No 243mg 243 mg, Unive rs chewable 10-30 Oral, ity of tablet 243 20:00: 18:57 ONCE, 1 [place] mg 00 :00 dose, [place] Medical 10/31/19 at Branch 1500, Routine iohexol 2020- No 120mL 120 mL, Unive rs (OMNIPAQUE 10-30 Intravenou it y of 350 19:51: 19:51 s, ONCE, 1 [place] BULK-150 00 :00 dose, Sun Medica l mL) 10/31/19 at Branch injection 1500, 120 mL Routine NaCl 0.9% 2019- No 1000mL at 999 Uni vers (NS) bolus 10-30 mL/hr, ity of infusion 19:00: 20:00 1,000 mL, [place] 1,000 mL 00 :00 IV Medical Infusion, Branch ONCE, 1 dose, [place] 10/31/19 at 1400, RADHA nitroglycer Yes .4mg 0.4 mg, Uni vers in 10-30 Sublingual ity of (NITROSTAT) 18:48: , Q5MIN [place] sublingual 44 PRN, 3 Medical tablet 0.4 doses, Branch mg Starting [place] 10/31/19 at 1348, Until Discontinu ed, RADHA, Chest pain predniSONE 2018- Yes [id number] 3 tablets Univers 10 mg 9-24 daily po ity of tablet 00:00: for one [place] week, then Medical 2 tablets Branch daily po until return predniSONE 2019- Yes [id number] 3 tablets Univers 10 mg 9-24 daily po ity of tablet 00:00: for one [place] 00 week, then Medical 2 tablets Branch daily po until return predniSONE 2019-0 Yes [id number] 3 tablets Univers 10 mg 9-24 daily po ity of tablet 00:00: for one week, then Medical 2 tablets Branch daily po until return predniSONE 2019-0 Yes [id number] 3 tablets Univers 10 mg 9-24 daily po ity of tablet 00:00: for one week, then Medical 2 tablets Branch daily po until return predniSONE 2019-0 Yes [id number] 3 tablets Univers 10 mg 9-24 daily po ity of tablet 00:00: for one week, then Medical 2 tablets Branch daily po until return predniSONE 2019-0 2020- No [id number] 3 tablets Univers 10 mg 9-24 10-09 daily po ity of tablet 00:00: 00:00 for one 00 :00 week, then Medical 2 tablets Branch daily po until return omeprazole 2019-0 Yes [id number] 40mg Take 1 Univers 40 mg 9-22 9103 capsule by ity of capsule 00:00: mouth [place] 00 daily. Medical Branch omeprazole 20190 Yes [id number] 40mg Take 1 Univers 40 mg 9-22 9103 capsule by ity of capsule 00:00: mouth [place] 00 daily. Medical Branch omeprazole 2019-0 Yes [id number] 40mg Take 1 [facility] 40 mg 9-22 9103 capsule by ity of capsule 00:00: mouth [place] 00 daily. Medical Branch omeprazole 2019-0 Yes [id number] 40mg Take 1 [facility] 40 mg 9-22 9103 capsule by ity of capsule 00:00: mouth [place] 00 daily. Medical Branch omeprazole 2019-0 Yes [id number] 40mg Take 1 [facility] 40 mg 9-22 9103 capsule by ity of capsule 00:00: mouth [place] 00 daily. Medical Branch omeprazole 2019-0 2020- No [id number] 40mg Take 1 [facility] 40 mg 9-22 10-09 9103 capsule by ity of capsule 00:00: 00:00 mouth [place] 00 :00 daily. Medical Branch methocarbam 2019-0 Yes 500mg Take 500 [...] [place] 54 times Medical daily. Branch methocarbam 20190 Yes 500mg Take 500 U nivers ol [...] (two) [place] 54 times Medical daily. Branch predniSONE 2019-0 Yes [id number] 60mg Take 3 [facility] 20 mg 9-21 9103 tablets by ity of tablet 00:00: mouth [place] 00 daily. Medical Branch insulin 2018-0 Yes [id number] 10U inject 10 [facility] aspart 9-21 Units ity of U-100 00:00: under the [place] (NOVOLOG 00 skin 3 Medical FLEXPEN (three) Branch U-100 times INSULIN) daily 100 unit/mL before (3 mL) meals. injection Insulin 2019- Yes [id number] 27U inject 27 Univers Glargine 9-21 Units ity of (LANTUS 00:00: under the [place] SOLOSTAR 00 skin Medical U-100 daily. Branch INSULIN) 100 unit/mL (3 mL) injection amoxicillin 2018- Yes [id number] 500mg Take 1 Univers -pot 9-21 9103 tablet by ity of clavulanate 00:00: mouth 3 [place] 500 mg 00 (three) Medical 500-125 mg times Branch tablet daily. artificial Yes [id number] 1[drp] Place 1 Univers tears,hypro - 9103 Drop in ity o f mellose, 00:00: [place] 0.5 % 00 4 (four) Medical ophthalmic times Branch drops daily. dorzolamide Yes [id number] 1[drp] Place 1 Univers -timolol - 9103 Drop in ity of 22.3-6.8 00:00: right [place] mg/mL 00 2 (two) Medical ophthalmic times Branch drops daily. doxycycline Yes [id number] 100mg Take 1 [facility] 100 mg 9-21 9103 capsule by ity of capsule 00:00: mouth [place] 00 every 12 Medical (twelve) Branch hours. Insulin Yes [id number] 27U inject 27 [facility] Glargine 9-21 Units ity of (LANTUS 00:00: under the [place] SOLOSTAR 00 skin Medical U-100 daily. Branch INSULIN) 100 unit/mL (3 mL) injection insulin Yes [id number] 10U inject 10 [facility] aspart 9-21 Units ity of U-100 00:00: under the [place] (NOVOLOG 00 skin 3 Medical FLEXPEN (three) Branch U-100 times INSULIN) daily 100 unit/mL before (3 mL) meals. injection predniSONE Yes [id number] 60mg Take 3 U nivers 20 mg 9-21 tablets by ity of tablet 00:00: mouth [place] 00 daily. Medical Branch predniSONE Yes [id number] 60mg Take 3 [facility] 20 mg 9-21 9103 tablets by ity of tablet 00:00: mouth [place] 00 daily. Medical Branch insulin Yes [id number] 10U inject 10 [facility] aspart 9-21 Units ity of U-100 00:00: under the [place] (NOVOLOG 00 skin 3 Medical FLEXPEN (three) Branch U-100 times INSULIN) daily 100 unit/mL before (3 mL) meals. injection Insulin Yes [id number] 27U inject 27 [facility] Glargine 9-21 Units ity of (LANTUS 00:00: under the [place] [address] skin Medical U-100 daily. Branch INSULIN) 100 unit/mL (3 mL) injection amoxicillin Yes [id number] 500mg Take 1 [facility] -pot - 9103 tablet by ity of clavulanate 00:00: mouth 3 [place] 500 mg 00 (three) Medical 500-125 mg times Branch tablet daily. artificial Yes [id number] 1[drp] Place 1 Univers tears,hypro 05-15 9103 Drop in ity o f mellose, 00:00: [place] eyes [place] 0.5 % 00 4 (four) Medical ophthalmic times Branch drops daily. dorzolamide Yes [id number] 1[drp] Place 1 Univers -timolol 05-15 9103 Drop in ity of 22.3-6.8 00:00: right [place] mg/mL 00 2 (two) Medical ophthalmic times Branch drops daily. doxycycline Yes [id number] 100mg Take 1 [facility] 100 mg 05-15 9103 capsule by ity of capsule 00:00: mouth [place] 00 every 12 Medical (twelve) Branch hours. Insulin Yes [id number] 27U inject 27 [facility] Glargine 9-21 Units ity of (LANTUS 00:00: under the [place] [address] skin Medical U-100 daily. Branch INSULIN) 100 unit/mL (3 mL) injection insulin Yes [id number] 10U inject 10 [facility] aspart 9-21 Units ity of U-100 00:00: under the [place] (NOVOLOG 00 skin 3 Medical FLEXPEN (three) Branch U-100 times INSULIN) daily 100 unit/mL before (3 mL) meals. injection predniSONE Yes [id number] 60mg Take 3 [facility] 20 mg - 9106 tablets by ity of tablet 00:00: mouth [place] 00 daily. Medical Branch insulin Yes [id number] 10U inject 10 [facility] aspart 9-21 Units ity of U-100 00:00: under the [place] (NOVOLOG 00 skin 3 Medical FLEXPEN (three) Branch U-100 times INSULIN) daily 100 unit/mL before (3 mL) meals. injection Insulin Yes [id number] 27U inject 27 [facility] Glargine 9-21 Units ity of (LANTUS 00:00: under the [place] SOLOSTAR 00 skin Medical U-100 daily. Branch INSULIN) 100 unit/mL (3 mL) injection artificial Yes [id number] 1[drp] Place 1 [facility] tears,hypro 9-21 9103 Drop in ity o f mellose, 00:00: [place] eyes [place] 0.5 % 00 4 (four) Medical ophthalmic times Branch drops daily. dorzolamide Yes [id number] 1[drp] Place 1 Univers -timolol 9-21 9103 Drop in ity of 22.3-6.8 00:00: right [place] mg/mL 00 2 (two) Medical ophthalmic times Branch drops daily. Insulin Yes [id number] 27U inject 27 [facility] Glargine 9-21 Units ity of (LANTUS 00:00: under the [place] SOLOSTMO 00 skin Medical U-100 daily. Branch INSULIN) 100 unit/mL (3 mL) injection insulin Yes [id number] 10U inject 10 [facility] aspart 9-21 Units ity of U-100 00:00: under the [place] (NOVOLOG 00 skin 3 Medical FLEXPEN (three) Branch U-100 times INSULIN) daily 100 unit/mL before (3 mL) meals. injection Insulin Yes [id number] 27U inject 27 [facility] Glargine 9-21 Units ity of (LANTUS 00:00: under the [place] SOLOSTMO 00 skin Medical U-100 daily. Branch INSULIN) 100 unit/mL (3 mL) injection artificial Yes [id number] 1[drp] Place 1 [facility] tears,hypro 9-21 9103 Drop in ity o f mellose, 00:00: [place] eyes [place] 0.5 % 00 4 (four) Medical ophthalmic times Branch drops daily. dorzolamide Yes [id number] 1[drp] Place 1 Univers -timolol 9-21 9103 Drop in ity of 22.3-6.8 00:00: right [place] mg/mL 00 2 (two) Medical ophthalmic times Branch drops daily. Insulin Yes [id number] 27U inject 27 [facility] Glargine 9-21 Units ity of (LANTUS 00:00: under the [place] SOLOSTAR 00 skin Medical U-100 daily. Branch INSULIN) 100 unit/mL (3 mL) injection insulin Yes [id number] 10U inject 10 [facility] aspart 9-21 Units ity of U-100 00:00: under the [place] (NOVOLOG 00 skin 3 Medical FLEXPEN (three) Branch U-100 times INSULIN) daily 100 unit/mL before (3 mL) meals. injection insulin Yes [id number] 10U inject 10 [facility] aspart 9-21 Units ity of U-100 00:00: under the [place] (NOVOLOG 00 skin 3 Medical FLEXPEN (three) Branch U-100 times INSULIN) daily 100 unit/mL before (3 mL) meals. injection insulin Yes [id number] 10U inject 10 [facility] aspart 9-21 Units ity of U-100 00:00: under the [place] (NOVOLOG 00 skin 3 Medical FLEXPEN (three) Branch U-100 times INSULIN) daily 100 unit/mL before (3 mL) meals. injection insulin Yes [id number] 10U inject 10 [facility] aspart 9-21 Units ity of U-100 00:00: under the [place] (NOVOLOG 00 skin 3 Medical FLEXPEN (three) Branch U-100 times INSULIN) daily 100 unit/mL before (3 mL) meals. injection insulin Yes [id number] 10U inject 10 [facility] aspart 9-21 Units ity of U-100 00:00: under the [place] (NOVOLOG 00 skin 3 Medical FLEXPEN (three) Branch U-100 times INSULIN) daily 100 unit/mL before (3 mL) meals. injection insulin Yes [id number] 10U inject 10 [facility] aspart 9-21 Units ity of U-100 00:00: under the [place] (NOVOLOG 00 skin 3 Medical FLEXPEN (three) Branch U-100 times INSULIN) daily 100 unit/mL before (3 mL) meals. injection predniSONE Yes [id number] 60mg Take 3 [facility] 20 mg 9-21 9103 tablets by ity of tablet 00:00: mouth [place] 00 daily. Medical Branch insulin Yes [id number] 10U inject 10 [facility] aspart 9-21 Units ity of U-100 00:00: under the [place] (NOVOLOG 00 skin 3 Medical FLEXPEN (three) Branch U-100 times INSULIN) daily 100 unit/mL before (3 mL) meals. injection Insulin Yes [id number] 27U inject 27 [facility] Glargine 9-21 Units ity of (LANTUS 00:00: under the [place] SOLOSTMO 00 skin Medical U-100 daily. Branch INSULIN) 100 unit/mL (3 mL) injection amoxicillin Yes [id number] 500mg Take 1 Univers -pot 9- 9103 tablet by ity of clavulanate 00:00: mouth 3 [place] 500 mg 00 (three) Medical 500-125 mg times Branch tablet daily. artificial Yes [id number] 1[drp] Place 1 Univers tears,hypro 05-15 9103 Drop in ity o f mellose, 00:00: [place] eyes [place] 0.5 % 00 4 (four) Medical ophthalmic times Branch drops daily. dorzolamide Yes [id number] 1[drp] Place 1 Univers -timolol 05-15 9103 Drop in ity of 22.3-6.8 00:00: right eye [place] mg/mL 00 2 (two) Medical ophthalmic times Branch drops daily. doxycycline Yes [id number] 100mg Take 1 [facility] 100 mg - 9103 capsule by ity of capsule 00:00: mouth [place] 00 every 12 Medical (twelve) Branch hours. Insulin Yes [id number] 27U inject 27 [facility] Glargine 9-21 Units ity of (LANTUS 00:00: under the [place] [facility] 00 skin Medical U-100 daily. Branch INSULIN) 100 unit/mL (3 mL) injection insulin Yes [id number] 10U inject 10 [facility] aspart 9-21 Units ity of U-100 00:00: under the [place] (NOVOLOG 00 skin 3 Medical FLEXPEN (three) Branch U-100 times INSULIN) daily 100 unit/mL before (3 mL) meals. injection predniSONE Yes [id number] 60mg Take 3 U nivers 20 mg 9-21 tablets by ity of tablet 00:00: mouth [place] 00 daily. Medical Branch insulin 2020- No [id number] 10U inject 10 [facility] aspart 9-21 01-09 Units ity of U-100 00:00: 00:00 under the [place] (NOVOLOG 00 :00 skin 3 Medical FLEXPEN (three) Branch U-100 times INSULIN) daily 100 unit/mL before (3 mL) meals. injection Insulin 2020- No [id number] 27U inject 27 Univers Glargine 05-15 10-10 Units ity of (LANTUS 00:00: 00:00 under [place] SOLOSTAR 00 :00 skin Medical U-100 daily. Branch INSULIN) 100 unit/mL (3 mL) injection Insulin 2019- No [id number] 27U inject 27 Univers Glargine 05-15 10-10 Units ity of (LANTUS 00:00: 00:00 under [place] SOLOSTAR 00 :00 skin Medical U-100 daily. Branch INSULIN) 100 unit/mL (3 mL) injection artificial 2019- No [id number] 1[drp] Place 1 Univers tears,hypro 05-15 9103 Drop in ity of mellose, 00:00: 00:00 both eyes [place] 0.5 % 00 :00 4 (four) Medical ophthalmic times Branch drops daily. dorzolamide 2019- No [id number] 1[drp] Place 1 Univers -timolol 05-15 9103 Drop in ity of 22.3-6.8 00:00: 00:00 right eye [place] mg/mL 00 :00 2 (two) Medical ophthalmic times Branch drops daily. predniSONE 2020- No [id number] 60mg Take 3 [facility] 20 mg 05-15 9103 tablets by ity of tablet 00:00: 00:00 mouth [place] 00 :00 daily. Medical Branch amoxicillin 2020- No [id number] 500mg Take 1 Univers -pot 05-15 9103 tablet by ity of clavulanate 00:00: 00:00 mouth 3 [place] 500 mg 00 :00 (three) Medical 500-125 mg times Branch tablet daily. doxycycline 2020- No [id number] 100mg Take 1 [facility] 100 mg 05-15 9103 capsule by ity of capsule 00:00: 00:00 mouth [place] 00 :00 every 12 Medical (twelve) Branch hours. insulin 2020- No [id number] 10U inject 10 [facility] aspart 05-15 Units ity of U-100 00:00: 00:00 under the [place] (NOVOLOG 00 :00 skin 3 Medical FLEXPEN (three) Branch U-100 times INSULIN) daily 100 unit/mL before (3 mL) meals. injection predniSONE 2019- No [id number] 60mg Take 3 [facility] 20 mg 05-15 9106 tablets by ity of tablet 00:00: 00:00 mouth [place] 00 :00 daily. Medical Branch FENTanyl PF 2018- No 50ug 50 mcg, Un [facility] (SUBLIMAZE 05-10 Slow IV ity o f (PF)) 03:45: 02:41 Push, [place] injection 00 :00 ONCE, 1 Medical 50 mcg dose, [facility] 05/09/19 at 2245, STAT LORazepam 2018- No 1mg 1 mg, Slow U nivers (ATIVAN) 05-10 IV Push, ity of injection 1 03:45: 02:41 [place]CE, 1 [place] mg 00 :00 dose, [facility] 05/09/19 at Branch 2245, STAT FENTanyl PF 2019- No 50ug 50 mcg, Un [place] (SUBLIMAZE 05-10 Slow IV ity o f (PF)) 03:15: 02:14 Push, [place] injection 00 :00 ONCE, 1 Medical 50 mcg dose, [facility] 05/09/19 at 2215, STAT methylpredn 2018- No 125mg 125 mg, IV Univers isolone sod 05-10 Piggyback, i ty of succ 03:00: 02:16 ONCE, 1 [place] (SOLU-MEDRO 00 :00 dose, [place] [facility]) 05/09/19 at Branch injection 2200, STAT 125 mg ketorolac 2019- No 30mg 30 mg, Unive rs (TORADOL) 05-10 Slow IV ity of injection 03:00: 02:16 Push, [place] 30 mg 00 :00 ONCE, 1 Medical dose, [facility] 05/09/19 at 2200, RADHA
Fa culty member approving Restricted medication : NICK TRAMMELL S buprenorphi Yes 300mg Place 300 Univers ne HCl 9-16 mg in ity of (BELBUCA) 02:49: cheeks 2 [place] 300 mcg 47 (two) Medical Film times Branch daily. methocarbam Yes 500mg Take 500 U nivers ol 9-16 mg by ity of (ROBAXIN) 02:49: mouth 2 [place] 500 mg 47 (two) Medical tablet times Branch daily. morpHINE 2019- No 4mg 4 mg, Slow Un [facility] injection 4 05-10 IV Push, ity of mg 01:45: 00:39 ONCE, 1 [place] 00 :00 dose, [place] [facility] 05/09/19 at Branch 2045, STAT iohexol 2019- No 80mL 80 mL, Univers (OMNIPAQUE 05-10 Intravenou it y of 350 BULK-75 00:30: 00:29 s, ONCE, 1 [place] mL) 00 :00 dose, [place] [facility] injection 05/09/19 at [facility] 80 mL 1930, Routine ondansetron 2018- No 4mg 4 mg, Slow Univers (ZOFRAN 05-10 IV Push, ity of (PF)) 00:30: 23:55 ONCE, 1 [place] injection 4 00 :00 dose, [place] [facility] ical mg 05/09/19 at Branch 1930, RADHA morpHINE 2018- No 4mg 4 mg, Slow Un l[facility]beth injection 4 05-10 IV Push, ity of mg 00:30: 23:55 ONCE, 1 [place] 00 :00 dose, [place] [facility] 05/09/19 at Branch 1930, STAT gabapentin 2017-08 Yes 300mg Take 1 [...] capsule by ity of capsule 00:00: mouth (two) Medical times Branch daily. ibuprofen 2018-1 [...] 2 (two) Medical times Branch daily. ibuprofen 2017- Yes 600mg Take 1 Unive rs 600 mg 0-20 tablet by ity of tablet 00:00: mouth [place] 00 every 8 Medical (eight) Branch hours as needed for Pain (scale 4-6). gabapentin 2017- Yes 300mg Take 1 Univ ers 300 mg 0-20 capsule by ity of capsule 00:00: mouth 2 00 (two) Medical times Branch daily. ibuprofen 2017- Yes 600mg Take 1 Unive rs 600 [...] 2 (two) Medical times Branch daily. ibuprofen 2017- Yes 600mg Take 1 Unive rs 600 mg 0-20 tablet by ity of tablet 00:00: mouth [place] 00 every 8 Medical (eight) Branch hours as needed for Pain (scale 4-6). gabapentin 2017-08- No 300mg Take 1 Uni vers 300 mg 0-20 01-10 capsule by ity of capsule 00:00: 00:00 mouth 2 [place] 00 :00 (two) Medical times Branch daily. ibuprofen 2017-2020- No 600mg Take 1 Univ ers 600 mg 0-20 01-09 tablet by ity of tablet 00:00: 00:00 mouth [place] 00 :00 every 8 Medical (eight) Branch hours as needed for Pain (scale 4-6). HYDROcodone 2017- Yes 1{tbl} Take 1 Un l[facility]beth -acetaminop 0-19 tablet by ity of hen ([place]) 00:00: mouth [place] 10-325 mg 00 every [...] -acetaminop 0-19 tablet by ity of hen (MyNextRunCO) 00:00: mouth [place] 10-325 mg 00 every [...] -acetaminop 0-19 tablet by ity of hen (Cree) 00:00: mouth [place] 10-325 mg 00 every 6 Medical tablet (six) Branch hours as needed for Pain (scale 4-6) or Pain (scale 7-10). HYDROcodone 2017-08 Yes 1{tbl} Take 1 Un l[facility] -acetaminop 0-19 tablet by ity of hen (Cree) 00:00: mouth [place] 10-325 mg 00 every [...] (two) Medical times Branch daily. HYDROcodone 2017-08 No 1{tbl} Take 1 U nivers -acetaminop 0-19 01-09 tablet by it y of hen (NORCO) 00:00: 00:00 mouth [place] 10-325 mg 00 :00 every 6 Medical tablet (six) Branch hours as needed for Pain (scale 4-6) or Pain (scale 7-10). aspirin 325 2017-08 No 325mg Take 1 Un l[facility] mg tablet 0-19 10-04 tablet by ity of 00:00: 00:00 mouth 2 [place] 00 :00 (two) Medical times Branch daily. Immunizations Ordered Filled Immunization Date Status Comments [facility] e Immunization Name Name Pneumococcal 2020-05-28 Completed University o f Polysaccharide, 00:00:00 [place] Med ical PPSV23 (PNEUMOVAX) Branch Influenza Virus 2020-05-28 Completed Universit y of Vaccine [place] .5 mL 00:00:00 [place] Medical IM 6+ MO Branch Pneumococcal 2020-05-28 Completed University o f Polysaccharide, 00:00:00 [place] Med ical PPSV23 (PNEUMOVAX) Branch Influenza Virus 2020-05-28 Completed Universit y of Vaccine [place] .5 mL 00:00:00 [place] Medical IM 6+ MO Branch Pneumococcal 2020-05-28 Completed University o f Polysaccharide, 00:00:00 [place] Med ical PPSV23 (PNEUMOVAX) Branch Influenza Virus 2020-05-28 Completed Universit y of Vaccine [place] .5 mL 00:00:00 [place] Medical IM 6+ MO Branch Pneumococcal 2020-05-28 Completed University o f Polysaccharide, 00:00:00 [place] Med ical PPSV23 (PNEUMOVAX) Branch Influenza Virus 2020-05-28 Completed Universit y of Vaccine [place] .5 mL 00:00:00 [place] [facility] IM 6+ MO Branch Pneumococcal 2020-05-28 [...] y of Vaccine [place] .5 mL 00:00:00 [place] Medical IM 6+ MO Branch Pneumococcal 2020-05-28 Completed University o f Polysaccharide, 00:00:00 [place] Med ical PPSV23 (PNEUMOVAX) Branch Influenza Virus 2020-05-28 Completed Universit y of Vaccine [place] .5 mL 00:00:00 [place] Medical IM 6+ MO Branch Pneumococcal 2020-05-28 Completed University o f Polysaccharide, 00:00:00 [place] Med ical PPSV23 (PNEUMOVAX) Branch Influenza Virus 2020-05-28 Completed Universit y of Vaccine [place] .5 mL 00:00:00 [place] Medical IM 6+ MO Branch Pneumococcal 2020-05-28 Completed University o f Polysaccharide, 00:00:00 [place] Med ical PPSV23 (PNEUMOVAX) Branch Influenza Virus 2020-05-28 Completed Universit y of Vaccine [place] .5 mL 00:00:00 [place] [facility] 6+ MO Branch Pneumococcal 2020-05-28 Completed University o f Polysaccharide, 00:00:00 [place] Med ical PPSV23 (PNEUMOVAX) Branch Influenza Virus 2020-05-28 Completed Universit y of Vaccine [place] .5 mL 00:00:00 [place] [facility] 6+ MO Branch Pneumococcal 2020-05-28 Completed University o f Polysaccharide, 00:00:00 [place] Med ical PPSV23 (PNEUMOVAX) Branch Influenza Virus 2020-05-28 Completed Universit y of Vaccine [place] .5 mL 00:00:00 [place] [facility] 6+ MO Branch Pneumococcal 2020-05-28 Completed University o f Polysaccharide, 00:00:00 [place] Med ical PPSV23 (PNEUMOVAX) Branch Influenza Virus 2020-05-28 Completed Universit y of Vaccine [place] .5 mL 00:00:00 [place] Medical IM 6+ MO Branch Pneumococcal 2020-05-28 Completed University o f Polysaccharide, 00:00:00 [place] Med ical PPSV23 (PNEUMOVAX) Branch Influenza Virus 2020-05-28 Completed Universit y of Vaccine [place] .5 mL 00:00:00 [place] Medical 6+ MO Branch Pneumococcal 2020-05-28 Completed University o f Polysaccharide, 00:00:00 [place] Med ical PPSV23 (PNEUMOVAX) Branch Influenza Virus 2020-05-28 Completed Universit y of Vaccine [place] .5 mL 00:00:00 [place] Medical 6+ MO Branch Td 2018-06-12 Completed University of 00:00:00 [facility] Td 2018-06-12 Completed University of 00:00:00 [place] [facility] Td 2018-06-12 Completed University of 00:00:00 [place] [facility] Td 2018-06-12 Completed University of 00:00:00 [place] [facility] Td 2018-06-12 Completed University of 00:00:00 [facility] Td 2018-06-12 Completed University of 00:00:00 [facility] Branch Td 2018-06-12 Completed University of 00:00:00 [facility] Branch Td 2018-06-12 Completed University of 00:00:00 [facility] Branch Td 2018-06-12 Completed University of 00:00:00 [facility] Branch Td 2018-06-12 Completed University of 00:00:00 [facility] Branch Td 2018-06-12 Completed University of 00:00:00 [facility] Td 2018-06-12 Completed University of 00:00:00 [facility] Td 2018-06-12 Completed University of 00:00:00 [facility] Td 2018-06-12 Completed University of 00:00:00 [facility] Td 2018-06-12 Completed University of 00:00:00 [facility] Branch Td 2018-06-12 Completed University of 00:00:00 [facility] Branch Td 2018-06-12 Completed University of 00:00:00 [facility] Branch Td 2018-06-12 Completed University of 00:00:00 [facility] Td 2018-06-12 Completed University of 00:00:00 [facility] Td 2018-06-12 Completed University of 00:00:00 [facility] Td 2018-06-12 Completed University of 00:00:00 [facility] Td 2018-06-12 Completed University of 00:00:00 [facility] Td 2018-06-12 Completed University of 00:00:00 [facility] Td 2018-06-12 Completed University of 00:00:00 [facility] Td 2018-06-12 Completed University of 00:00:00 [facility] Vital Signs Vital Name Observation Time Observation Value Comments Source Systolic blood 2021-01-16 119 mm[Hg] University of pressure 16:12:00 [facility] Diastolic blood 2021-01-16 80 mm[Hg] University o f pressure 16:12:00 [facility] Heart rate 2021-01-16 68 /min University of 16:12:00 [facility] Body temperature 2021-01-16 35.56 [place] University of 16:12:00 [facility] Respiratory rate 2021-01-16 20 /min University of 16:12:00 [facility] Oxygen saturation 2021-01-16 98 /min University of in Arterial blood 16:12:00 [facility] by Pulse oximetry Branch Body weight 2021-01-14 117.935 kg University of 22:03:00 [facility] BMI 2021-01-14 38.38 kg/m2 University of 22:03:00 [facility] Systolic blood 2020-09-09 137 mm[Hg] University of pressure 14:11:00 [facility] Diastolic blood 2020-09-09 81 mm[Hg] University o f pressure 14:11:00 [facility] Heart rate 2020-09-09 78 /min University of 14:11:00 [facility] Body temperature 2020-09-09 36.33 [place] University of 14:11:00 [facility] Respiratory rate 2020-09-09 18 /min University of 14:11:00 [facility] Oxygen saturation 2020-09-09 97 /min University of in Arterial blood 14:11:00 [facility] by Pulse oximetry Branch Body weight 2020-09-09 115.304 kg University of 11:28:00 [facility] BMI 2020-09-09 37.52 kg/m2 University of 11::00 [facility] Body height 2020-09-07 175.3 cm University of 16:03:49 [facility] Systolic blood 2020-09-09 137 mm[Hg] University of pressure 14:11:00 [facility] Diastolic blood 2020-09-09 81 mm[Hg] University o f pressure 14:11:00 [facility] Heart rate 2020-09-09 78 /min University of 14:11:00 [facility] Body temperature 2020-09-09 36.33 [place] University of 14:11:00 [facility] Respiratory rate 2020-09-09 18 /min University of 14:11:00 [facility] Oxygen saturation 2020-09-09 97 /min University of in Arterial blood 14:11:00 [facility] by Pulse oximetry Branch Body weight 2020-09-09 115.304 kg University of 11:28:00 [facility] BMI 2020-09-09 37.52 kg/m2 University of 11:28:00 [facility] Body height 2020-09-07 175.3 cm University of 16:03:49 [facility] Systolic blood 2020-09-03 117 mm[Hg] University of pressure 17:23:00 [place] [facility] Branch Diastolic blood 2020-09-03 89 mm[Hg] University o f pressure 17:23:00 [facility] Heart rate 2020-09-03 70 /min University of 17:23:00 [facility] Body temperature 2020-09-03 36 [place] University of 17:23:00 [facility] Oxygen saturation 2020-09-03 97 /min University of in Arterial blood 17:23:00 [place] [facility] by Pulse oximetry Branch Respiratory rate 2020-09-03 18 /min University of 13:31:00 [facility] Body height 2020-09-01 175.3 cm University of 22:40:00 [facility] Body weight 2020-09-01 116.121 kg University of 22:40:00 [facility] BMI 2020-09-01 37.80 kg/m2 University of 22:40:00 [facility] Systolic blood 2020-09-03 117 mm[Hg] University of pressure 17:23:00 [facility] Diastolic blood 2020-09-03 89 mm[Hg] University o f pressure 17:23:00 [facility] Heart rate 2020-09-03 70 /min University of 17:23:00 [facility] Body temperature 2020-09-03 36 [place] University of 17:23:00 [facility] Oxygen saturation 2020-09-03 97 /min University of in Arterial blood 17:23:00 [place] [facility]i [facility] by Pulse oximetry Branch Respiratory rate 2020-09-03 18 /min University of 13:31:00 [facility] Body height 2020-09-01 175.3 cm University of 22:40:00 [facility] Body weight 2020-09-01 116.121 kg [facility] 22:40:00 [facility] BMI 2020-09-01 37.80 kg/m2 [facility] 22:40:00 [facility] Systolic blood 2020-06-27 140 mm[Hg] [facility] of pressure 19:18:00 [facility] Diastolic blood 2020-06-27 89 mm[Hg] University o f pressure 19:18:00 [facility] Heart rate 2020-06-27 89 /min [facility] 19:15:00 [facility] Respiratory rate 2020-06-27 19 /min [facility] 19:15:00 [facility] Body height 2020-06-27 175.3 cm [facility] 19:15:00 [facility] Body weight 2020-06-27 113.309 kg [facility] of 19:15:00 [facility] BMI 2020-06-27 36.89 kg/m2 [facility] 19:15:00 [facility] Oxygen saturation 2020-06-27 92 /min University of in Arterial blood 19:15:00 [facility] zaina by Pulse oximetry Branch Systolic blood 2020-06-27 140 mm[Hg] [facility] of pressure 19:18:00 [facility] Diastolic blood 2020-06-27 89 mm[Hg] University o f pressure 19:18:00 [facility] Heart rate 2020-06-27 89 /min [facility] of 19:15:00 [facility] Respiratory rate 2020-06-27 19 /min [facility] 19:15:00 [facility] Body height 2020-06-27 175.3 cm [facility] 19:15:00 [facility] Body weight 2020-06-27 113.309 kg University of 19:15:00 [facility] BMI 2020-06-27 36.89 kg/m2 [facility] 19:15:00 [facility] Oxygen saturation 2020-06-27 92 /min University of in Arterial blood 19:15:00 [facility] by Pulse oximetry Branch Systolic blood 2020-06-03 118 mm[Hg] [facility] of pressure 16:35:00 [facility] Diastolic blood 2020-06-03 73 mm[Hg] University o f pressure 16:35:00 [facility] Heart rate 2020-06-03 86 /min [facility] 16:35:00 [facility] Body temperature 2020-06-03 36.5 Pilar [facility] 16:35:00 [facility] Respiratory rate 2020-06-03 20 /min [facility] 16:35:00 [facility] Oxygen saturation 2020-06-03 95 /min [facility] of in Arterial blood 16:35:00 [facility] zaina by Pulse oximetry Branch Body weight 2020-06-03 91.536 kg remove 2 extra University of 10:00:00 pillows from [facility] bed Branch BMI 2020-06-03 29.80 kg/m2 [facility] 10:00:00 [facility] Body height 2020-06-02 175.3 cm [facility] 21:13:00 [facility] Systolic blood 2020-05-28 104 mm[Hg] [facility] of pressure 17:22:00 [facility] Diastolic blood 2020-05-28 69 mm[Hg] University o f pressure 17:22:00 [facility] Heart rate 2020-05-28 78 /min [facility] 17:22:00 [facility] Body temperature 2020-05-28 37.33 Pilar [facility] 17:22:00 [facility] Respiratory rate 2020-05-28 16 /min [facility] 17:22:00 [facility] Oxygen saturation 2020-05-28 92 /min [facility] of in Arterial blood 17:22:00 [facility] by Pulse oximetry Branch Body weight 2020-05-24 114.533 kg University of 08:28:00 [facility] BMI 2020-05-24 37.29 kg/m2 [facility] 08:28:00 [facility] Body height 2020-05-23 175.3 cm [facility] 22:55:00 [facility] Systolic blood 2019-10-31 155 mm[Hg] [facility] pressure 20:30:00 [facility] Diastolic blood 2019-10-31 100 mm[Hg] University o f pressure 20:30:00 [facility] Heart rate 2019-10-31 97 /min [facility] 20:30:00 [facility] Respiratory rate 2019-10-31 23 /min [facility] 20:30:00 [facility] Oxygen saturation 2019-10-31 97 /min [facility] in Arterial blood 20:30:00 [facility] by Pulse oximetry Branch Body temperature 2019-10-31 37.61 Pilar [facility] 18:40:00 [facility] Body height 2019-10-31 165.1 cm [facility] 18:40:00 [facility] Body weight 2019-10-31 117.935 kg [facility] 18:40:00 [facility] BMI 2019-10-31 43.27 kg/m2 [facility] 18:40:00 [facility] Systolic blood 2019-05-10 214 mm[Hg] [facility] pressure 02:00:00 [facility] Diastolic blood 2019-05-10 126 mm[Hg] University o f pressure 02:00:00 [facility] Heart rate 2019-05-10 94 /min [facility] 02:00:00 [facility] Respiratory rate 2019-05-10 18 /min [facility] 02:00:00 [facility] Oxygen saturation 2019-05-10 97 /min [facility] in Arterial blood 02:00:00 [facility] by Pulse oximetry [place] Body temperature 2019-05-09 36.94 Pilar [facility] 23:45:00 [facility] Body weight 2019-05-09 110.224 kg [facility] 23:26:00 [facility] BMI 2019-05-09 36.95 kg/m2 [facility] 23:26:00 [facility] Procedures Procedure Date / Time Performing Clinician Source Performed POCT GLUCOSE (AUTOMATED) 2021-01-16 12:34:00 Logan Seth [facility] POCT GLUCOSE (AUTOMATED) 2021-01-16 04:43:00 Logan Seth [facility] POCT GLUCOSE (AUTOMATED) 2021-01-16 01:13:00 Logan Seth [facility] POCT GLUCOSE (AUTOMATED) 2021-01-15 21:17:00 Logan Seth [facility] TRANSTHORACIC ECHO (TTE) 2021-01-15 16:49:19 Shyann Mendez [facility] COMPLETE W/ CONTRAST Medical [facility] POCT GLUCOSE (AUTOMATED) 2021-01-15 16:03:00 Logan Seth [facility] POCT GLUCOSE (AUTOMATED) 2021-01-15 13:06:00 Logan Seth [facility] HB ECG ROUTINE & RHYTHM 2021-01-15 10:19:39 Shyann Mendez [facility] POCT GLUCOSE (AUTOMATED) 2021-01-15 09:35:00 Logan Seth [facility] CBC WITH DIFF 2021-01-15 07:14:00 Logan Seth [facility] GLYCOSYLATED HEMOGLOBIN 2021-01-15 07:14:00 Logan Seth [facility] (A1C) [facility] TROPONIN I 2021-01-15 07:13:00 Dor[facility] BASIC METABOLIC PANEL 2021-01-15 07:13:00 Logan Seth [facility] (NA, K, CL, CO2, GLUCOSE, Medica l Branch BUN, CREATININE, CA) POCT GLUCOSE (AUTOMATED) 2021-01-15 05:19:00 Logan Seth [facility] TROPONIN I 2021-01-15 02:52:00 Logan Seth [facility] URINE DRUG (IMMUNOASSAY) 2021-01-15 00:50:00 Shyann Mendez [facility] COMPREHENSIVE [facility] Medical [facility] SCREEN POCT GLUCOSE (AUTOMATED) 2021-01-14 23:57:00 Logan Seth [facility] COVID-19 (ID NOW RAPID 2021-01-14 23:53:[address] [facility] PRO-BNP 2021-01-14 23:39:00 Kathryn Meredith [facility] XR CHEST 1 VW 2021-01-14 22:39:02 Betsy Rodriguez [facility] PROTHROMBIN TIME / INR 2021-01-14 22:23:00 Betsy Rodriguez [facility] ACTIVATED PARTIAL 2021-01-14 22:23:00 Betsy Rodriguez [facility] THRMPLAS CHRISTIANO [facility] HB ECG ROUTINE & RHYTHM 2021-01-14 22:14:28 Betsy Rodriguez [facility] STRIP [facility] LIPASE 2021-01-14 22:09:00 Betsy Rodriguez [facility] TROPONIN I 2021-01-14 22:09:00 Betsy Rodriguez Lillie [facility] THYROID STIMULATING 2021-01-14 22:09:00 Shyann Mendez [facility] HORMONE [facility] COMP. METABOLIC PANEL 2021-01-14 22:09:00 Betsy Rodriguez [facility] ([id number]) [facility] LIPID PANEL ([id number])(TOTAL 2021-01-14 22:09:00 Shyann Mendez [facility] CHOLESTEROL, [facility] TRIGLYCERIDES, HDL) CBC WITH DIFF 2021-01-14 22:09:00 Betsy Rodriguez [facility] CONSENT/REFUSAL FOR 2021-01-14 21:59:[address] 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 2020-10-06 06:01:00 Doctor Unassrobert, [facility] [place] [facility] POCT GLUCOSE (AUTOMATED) 2020-09-09 14:12:00 John Armstrong [facility] BASIC METABOLIC PANEL 2020-09-09 09:20:00 Adrian [facility] (NA, K, CL, CO2, GLUCOSE, Medica l Branch BUN, CREATININE, CA) MAGNESIUM 2020-09-09 09:20:00 Simon Campbell [facility] POCT GLUCOSE (AUTOMATED) 2020-09-09 03:08:00 John Armstrong [facility] POCT GLUCOSE (AUTOMATED) 2020-09-08 22:49:00 John Armstrong [facility] POCT GLUCOSE (AUTOMATED) 2020-09-08 18:24:00 John Armstrong [facility] BASIC METABOLIC PANEL 2020-09-08 11:11:00 Simon Campbell [facility] (NA, K, CL, CO2, GLUCOSE, Medica l Branch BUN, CREATININE, CA) MAGNESIUM 2020-09-08 11:11:00 Simon Campbell [facility] POCT GLUCOSE (AUTOMATED) 2020-09-08 00:05:00 [facility]SE ([facility]OMATED) 2020-09-07 22:06:00 [facility] POCT GLUCOSE (AUTOMATED) 2020-09-07 18:15:00 [facility] [place] [facility] POCT ACT LOW RANGE 2020-09-07 17:03:00 Any [facility] POCT ACT LOW RANGE 2020-09-07 16:47:00 Any [facility] POCT ACT LOW RANGE 2020-09-07 16:40:00 Any [facility] HB ECG ROUTINE & RHYTHM 2020-09-07 10:14:03 Simon Campbell [facility] BASIC METABOLIC PANEL 2020-09-07 09:10:00 Adrian Simon [facility] (NA, K, CL, CO2, GLUCOSE, Medica l Branch BUN, CREATININE, CA) LIPID PANEL ([id number])(TOTAL 2020-09-07 09:10:00 Simon Campbell [facility] CHOLESTEROL, [facility] TRIGLYCERIDES, HDL) ACTIVATED PARTIAL 2020-09-07 09:10:00 John Paul Gutiérrez [facility] LOW-DENSITY LIPOPROTEIN, 2020-09-07 09:10:00 Simon Campbell [facility] MAGNESIUM 2020-09-07 09:10:00 Adrian [facility] TROPONIN I 2020-09-07 04:38:00 Adrian [facility] POCT GLUCOSE (AUTOMATED) 2020-09-07 04:35:00 Any Sherman [facility] GALV/CLC ONLY - URINE 2020-09-07 01:22:00 Adrian Simon [facility] DRUG (IMMUNOASSAY) - Medical [facility] COMPREHENSIVE DRUG SCREEN ACTIVATED PARTIAL 2020-09-07 01:22:00 John Paul Gutiérrez [facility] POCT GLUCOSE (AUTOMATED) 2020-09-06 22:28:00 Any Sherman [facility] TROPONIN I 2020-09-06 21:17:00 Simon Campbell [facility] HB ECG ROUTINE & RHYTHM 2020-09-06 21:12:51 Ilene Devi [facility] CRITICAL CARE 2020-09-06 18:12:00 Ilene Devi [facility] XR CHEST 1 VW 2020-09-06 16:34:25 [facility] COMP. METABOLIC PANEL 2020-09-06 16:13:00 Jasiel Saenz [facility] ([id number]) Medical Branch CBC WITH DIFF 2020-09-06 16:13:00 [facility] GLYCOSYLATED HEMOGLOBIN 2020-09-06 16:13:00 Adrian [facility] (A1C) [facility] PROTHROMBIN TIME / INR 2020-09-06 16:13:00 Singer [facility] ACTIVATED PARTIAL 2020-09-06 16:13:00 Singer [facility] THRMPLAS CHRISTIANO [facility] N-TERMINAL PRO-BNP 2020-09-06 16:13:00 Ilene Devi [facility] COVID-19 (ID NOW RAPID 2020-09-06 16:13:[address] [facility] TESTING) Medical Branch LAB ONLY COVID 2020-09-06 16:13:00 Ilene Devi [facility] INTERPRETATION [facility] LIPASE 2020-09-06 16:13:00 [facility] MAGNESIUM 2020-09-06 16:13:00 Adrian [facility] TROPONIN I 2020-09-06 16:13:00 [facility] HB ECG ROUTINE & RHYTHM 2020-09-06 16:00:27 Singer [facility] NOTICE OF PRIVACY 2020-09-06 15:50:24 Doctor Unassigned, [facility] PRACTICES [place] [facility] POCT GLUCOSE (AUTOMATED) 2020-09-03 17:27:00 Chantel Bolton [facility] POCT GLUCOSE (AUTOMATED) 2020-09-03 13:35:00 Che [facility] TROPONIN I 2020-09-03 09:55:00 [facility] BASIC METABOLIC PANEL 2020-09-03 09:55:00 Chantel Bolton [facility] (NA, K, CL, CO2, GLUCOSE, Medica l Branch BUN, CREATININE, CA) CBC WITH DIFF 2020-09-03 09:55:00 Che [facility] POCT GLUCOSE (AUTOMATED) 2020-09-03 01:44:00 Che [facility] POCT GLUCOSE (AUTOMATED) 2020-09-02 17:07:00 [facility] POCT GLUCOSE (AUTOMATED) 2020-09-02 13:56:00 [facility] TROPONIN I 2020-09-02 10:15:00 [facility] TROPONIN I 2020-09-02 05:18:00 [facility] POCT GLUCOSE (AUTOMATED) 2020-09-02 02:53:00 Che [facility] CT CHEST PULMONARY 2020-09-02 01:21:00 [facility] COVID-19 (ID NOW RAPID 2020-09-01 23:10:00 [facility] Medical Branch LAB ONLY COVID 2020-09-01 23:10:00 Adam [facility] INTERPRETATION [facility] URINALYSIS 2020-09-01 23:09:[address] [facility] XR CHEST 1 VW 2020-09-01 22:55:12 [facility] 2020-09-01 22:54:00 [facility] HEPATIC FUNCTION PANEL 2020-09-01 22:54:00 [facility] ([id number] (ALB,T.PRO,BILI Medical Branch T,BU/BC,ALT,AST,ALK PHOS) BASIC METABOLIC PANEL 2020-09-01 22:54:00 [facility] ([facility], K, CL, CO2, GLUCOSE, Medica l Branch BUN, CREATININE, CA) CBC WITH DIFF 2020-09-01 22:54:00 [facility] / INR 2020-09-01 22:54:00 [facility] D-DIMER 2020-09-01 22:54:00 [facility] N-TERMINAL PRO-BNP 2020-09-01 22:54:00 Isamar Medina [facility] HB ECG ROUTINE & RHYTHM 2020-09-01 22:49:16 Isamar Medina [facility] NOTICE OF PRIVACY 2020-09-01 22:35:14 Doctor Unassigned, [facility] [place] [facility] [place] CONSENT/REFUSAL FOR 2020-09-01 22:34:24 Doctor Unassigned, [facility] DIAGNOSIS AND TREATMENT [place] [facility] MEDICAL RELEASE/CLEARANCE 2020-07-05 06:01:00 Doctor Unassigned, [facility] FORMS [place] [facility] POCT GLUCOSE (AUTOMATED) 2020-06-03 16:35:00 Florian Dyer [facility] POCT GLUCOSE (AUTOMATED) 2020-06-03 13:02:00 Florian Dyer [facility] TROPONIN I 2020-06-03 05:44:00 Nick Mendez [facility] BASIC METABOLIC PANEL 2020-06-03 05:44:00 Nick Mendez [facility] (NA, K, CL, CO2, GLUCOSE, Medica l Branch BUN, CREATININE, CA) CBC WITH DIFF 2020-06-03 05:44:00 Andrea Nick Majo [facility] TROPONIN I 2020-06-02 22:44:00 Nick Mendez Majo [facility] POCT GLUCOSE (AUTOMATED) 2020-06-02 21:29:00 Florian Dyer [facility] COVID-19 (ID NOW RAPID 2020-06-02 17:24:[address] [facility] TESTING) Medical Branch LIPASE 2020-06-02 16:51:00 Luis Angel Arreola [facility] MAGNESIUM 2020-06-02 16:51:00 Nick Mendez Majo [facility] TROPONIN I 2020-06-02 16:51:00 Luis Angel Arreola [facility] THYROID STIMULATING 2020-06-02 16:51:00 Nick Mendez [facility] HORMONE Medical Branch COMP. METABOLIC PANEL 2020-06-02 16:51:00 Luis Angel Arreola [facility] ([id number]) Medical [place] LIPID PANEL ([id number])(TOTAL 2020-06-02 16:51:00 Kathryn Meredith [facility] CHOLESTEROL, [facility] TRIGLYCERIDES, HDL) CBC WITH DIFF 2020-06-02 16:51:00 Maxwell [facility] PROTHROMBIN TIME / INR 2020-06-02 16:51:00 Luis Angel Arreola [facility] ACTIVATED PARTIAL 2020-06-02 16:51:00 Maxwell [facility] THRMPLAS [facility] N-TERMINAL PRO-BNP 2020-06-02 16:51:00 [facility] XR CHEST 1 VW 2020-06-02 16:45:11 Maxwell [facility] EKG-12 LEAD 2020-06-02 16:39:34 Maxwell [facility] POCT GLUCOSE (AUTOMATED) 2020-05-28 18:34:00 Abu-Livier [facility] POCT GLUCOSE (AUTOMATED) 2020-05-28 14:06:00 Abu-Livier [facility] CK (CREATINE KINASE) + MB 2020-05-28 09:12:[address] [facility] MAGNESIUM 2020-05-28 09:12:00 [facility] TROPONIN I 2020-05-28 09:12:00 [facility] BASIC METABOLIC PANEL 2020-05-28 09:12:00 PowellShelton amor [facility] (NA, K, CL, CO2, GLUCOSE, Medica l Branch BUN, CREATININE, CA) CBC WITHOUT DIFF 2020-05-28 09:12:00 [facility] POCT GLUCOSE (AUTOMATED) 2020-05-28 02:38:00 Abu-Livier [facility] CK (CREATINE KINASE) + MB 2020-05-28 02:14:[address] [facility] MAGNESIUM 2020-05-28 02:14:00 Darin [facility] TROPONIN I 2020-05-28 02:14:00 Darin [facility] BASIC METABOLIC PANEL 2020-05-28 02:14:00 Christiana Webster [facility] (NA, K, CL, CO2, GLUCOSE, Medica l Branch BUN, CREATININE, CA) POCT GLUCOSE (AUTOMATED) 2020-05-27 23:07:00 Abu-Livier [facility] POCT GLUCOSE (AUTOMATED) 2020-05-27 16:42:00 Abu-Livier [facility] POCT GLUCOSE (AUTOMATED) 2020-05-27 12:35:00 Abu-Livier [facility] ACTIVATED PARTIAL 2020-05-27 08:13:00 [facility] MAGNESIUM 2020-05-27 06:07:00 Powell [facility] BASIC METABOLIC PANEL 2020-05-27 06:07:00 Sherry Shelton [facility] (NA, K, CL, CO2, GLUCOSE, Medica l Branch BUN, CREATININE, CA) ACTIVATED PARTIAL 2020-05-27 06:07:00 [facility] ACTIVATED PARTIAL 2020-05-27 04:17:00 Michaela [facility] ACTIVATED PARTIAL 2020-05-27 01:55:00 [facility] POCT GLUCOSE (AUTOMATED) 2020-05-27 01:55:00 AbuAntonio [facility] EKG-12 LEAD 2020-05-27 00:29:39 Abu-Trena Maier [facility] POCT ACT LOW RANGE 2020-05-26 23:41:00 Abu-Opalh Tareq Unive [facility] POCT ACT LOW RANGE 2020-05-26 23:33:00 Abu-Sharciroh, Tareq Unive [facility] POCT ACT LOW RANGE 2020-05-26 22:57:00 Abu-Sharciroh, Tareq Unive [facility] POCT ACT LOW RANGE 2020-05-26 22:22:00 Abu-Opalh, Tareq Unive [facility] POCT GLUCOSE (AUTOMATED) 2020-05-26 21:17:00 uAntonio [facility] EKG-12 LEAD 2020-05-26 17:08:00 Jean Almanzar [facility] POCT GLUCOSE (AUTOMATED) 2020-05-26 16:49:00 AbuAntonio [facility] ACTIVATED PARTIAL 2020-05-26 16:09:00 [facility]UM 2020-05-26 08:19:00 [facility] BASIC METABOLIC PANEL 2020-05-26 08:19:00 PowellShelton amor [facility] (NA, K, CL, CO2, GLUCOSE, Medica l Branch BUN, CREATININE, CA) ACTIVATED PARTIAL 2020-05-26 08:19:00 Dor[facility] POCT GLUCOSE (AUTOMATED) 2020-05-26 01:42:00 Abu-Livier [facility] ACTIVATED PARTIAL 2020-05-25 23:45:00 Dorinda [facility] POCT GLUCOSE (AUTOMATED) 2020-05-25 21:06:00 Abu-Opal [facility] POCT GLUCOSE (AUTOMATED) 2020-05-25 16:48:00 Abu-Opal [facility] ACTIVATED PARTIAL 2020-05-25 15:35:00 [facility] PO[facility] GLUCOSE (AUTOMATED) 2020-05-25 12:49:00 Abu-Livier [facility] PROTHROMBIN TIME / INR 2020-05-25 12:09:00 [facility] 2020-05-25 12:09:00 [facility] MAGNESIUM 2020-05-25 09:37:00 PowellShelton amor [facility] TROPONIN I 2020-05-25 09:37:00 Norma Jennings [facility] BASIC METABOLIC PANEL 2020-05-25 09:37:00 Shelton Powell [facility] (NA, K, CL, CO2, GLUCOSE, Medica l Branch BUN, CREATININE, CA) POCT GLUCOSE (AUTOMATED) 2020-05-25 09:35:00 Brad [facility] MRSA / MSSA SCREEN BY 2020-05-25 09:01:00 Shelton Powell [facility] PCR, NARES Medical Branch ACTIVATED PARTIAL 2020-05-25 05:23:00 Dorinda [facility] POCT GLUCOSE (AUTOMATED) 2020-05-25 05:22:00 Brad [facility] POCT GLUCOSE (AUTOMATED) 2020-05-24 23:36:00 Logan Seth [facility] ACTIVATED PARTIAL 2020-05-24 20:58:00 Dorinda [facility] POCT GLUCOSE (AUTOMATED) 2020-05-24 16:44:00 Logan Seth [facility] ACTIVATED PARTIAL 2020-05-24 14:41:00 Dorinda [facility] ECHO ROUTINE W/DOPPLER 2020-05-24 13:52:07 Logna Seth [facility] POCT GLUCOSE (AUTOMATED) 2020-05-24 13:01:00 Logan Seth [facility] TROPONIN I 2020-05-24 02:31:00 Logan Seth [facility] POCT GLUCOSE (AUTOMATED) 2020-05-24 00:56:00 Logan Seth [facility] TROPONIN I 2020-05-23 22:09:00 Logan Seth [facility] LIPID PANEL ([id number])(TOTAL 2020-05-23 22:09:00 Logan Seth [facility] CHOLESTEROL, [facility] TRIGLYCERIDES, HDL) LOW-DENSITY LIPOPROTEIN, 2020-05-23 22:09:00 Logan Seth [facility] DIRECT [facility] CT CHEST PULMONARY 2020-05-23 21:10:50 Héctor Bales [facility] ANGIOGRAM Medical Branch XR CHEST 1 VW 2020-05-23 20:10:[address] [facility] URINALYSIS 2020-05-23 20:10:[address] [facility] TROPONIN I 2020-05-23 19:36:[address] [facility] HEPATIC FUNCTION PANEL 2020-05-23 19:36:00 [facility] ([id number]) (ALB,T.PRO,BILI Medical Branch T,BU/BC,ALT,AST,ALK PHOS) BASIC METABOLIC PANEL 2020-05-23 19:36:00 [facility] ([facility], K, CL, CO2, GLUCOSE, Medica l Branch BUN, CREATININE, CA) CBC WITH DIFF 2020-05-23 19:36:00 [facility] GLYCOSYLATED HEMOGLOBIN 2020-05-23 19:36:00 Logan Seth [facility] (A1C) [facility] N-TERMINAL PRO-BNP 2020-05-23 19:36:00 [facility] (ID NOW RAPID 2020-05-23 19:36:00 [facility] TESTING) Medical Branch EKG-12 LEAD 2020-05-23 19:32:43 [facility] EKG-12 LEAD 2020-05-23 19:29:19 Danny [facility] NOTICE OF PRIVACY 2020-05-23 19:12:19 Doctor Unassigned, [facility] [place] [facility] CONSENT/REFUSAL FOR 2020-05-23 19:12:07 Doctor Unassigned, [facility] DIAGNOSIS AND TREATMENT [place] [facility] [place] POCT GLUCOSE (AUTOMATED) 2019-10-31 20:36:00 Vivian Young [facility] EKG-12 LEAD 2019-10-31 20:00:04 Vivian Young [facility] CT CHEST PULMONARY 2019-10-31 19:45:26 Vivian Young [facility] ANGIOGRAM Medical Branch TROPONIN I 2019-10-31 18:58:00 Vivian Young [facility] HEPATIC FUNCTION PANEL 2019-10-31 18:58:00 Vivian Young [facility] ([id number]) (ALB,T.PRO,BILI Medical Branch T,BU/BC,ALT,AST,ALK PHOS) BASIC METABOLIC PANEL 2019-10-31 18:58:00 Vivian Young [facility] (NA, K, CL, CO2, GLUCOSE, Medica l Branch BUN, CREATININE, CA) CBC WITH DIFFERENTIAL 2019-10-31 18:58:00 Vivian Young [facility] PROTHROMBIN TIME / INR 2019-10-31 18:58:[address] [facility] ACTIVATED PARTIAL 2019-10-31 18:58:00 [facility] URINALYSIS 2019-10-31 18:58:00 Vivian Young [facility] EKG-12 LEAD 2019-10-31 18:48:12 Vivian Young [facility] NOTICE OF PRIVACY 2019-10-31 18:35:33 Doctor Unassrobert, [facility] CONSENT/REFUSAL FOR 2019-10-31 18:35:18 Doctor Unassigned, [facility] DIAGNOSIS AND TREATMENT [place] [facility] [place] CT ORBITS W CONTRAST 2019-05-10 00:28:54 [facility] BASIC METABOLIC PANEL 2019-05-09 23:44:00 Nick Trammell [facility] (NA, K, CL, CO2, GLUCOSE, Medica l Branch BUN, CREATININE, CA) CBC WITH DIFFERENTIAL 2019-05-09 23:44:00 Nick Trammell [facility] Encounters Start End Encounter Admission Attending Care Care Encounter Source Date/Time Date/Time Type Type Clinicians Facility Department ID 2021-06-[address] [facility] [id number] Univers [facility] [facility] [id number] Univers 16:59:[facility] [facility] [id number] Univers 16:08:[facility] [facility] [id number] Univers 22:05:10 ity of [facility] 2021-06-[address] [facility] [id number] Univers 20:04:15 ity of [facility] 2021-09-04 2021-09-04 [facility] 1.2.840.114 [id number] Univers 00:00:00 00:00:00 Julius AUGUSTIN 350.1.13.10 it[facility] [place] [facility] [phone] [facility] 059 Branch [facility] 2021-07-02 2021-07-02 Case YIFAN Tong 1.2.840.114 [id number] Univers 00:00:00 00:00:00 Management Kayleen OLIVEROS 350.1.13.10 it[place] of [place] [phone] [place] [id number] [place] 2021-01-17 2021-01-17 [facility] [id number] -[id number] Univers 10:20:00 10:20:00 JULIUS [id number] ity o f [facility] 2021-01-17 2021-01-17 Outpatient [facility] [place] [id number] Univers 10:20:00 10:20:00 JULIUS bondy o f [facility] 2021-01-14 2021-01-16 Emergency Betsy Rodriguez [facility] 1.2.840. 114 [id number] Univers 17:00:00 16:50:00 Logan Seth 350.1.13.10 [place] of [place] [phone] [facility] 081 Branch 2021-01-14 2021-01-14 Orders Doctor KRISTIE 1.2.840.114 [id number] Univers 00:00:00 00:00:00 Only Unassigned, NOEL 350.1.13.10 ity of [place] [facility] 4.2.7.2.686 Robert as [phone] [facility] 009 Branch 2021-01-04 2021-01-04 Telephone [facility] 1.2.704.032 [id number] Univers 00:00:00 00:00:00 Qiasanamlesvia Willard 350.1.13.10 ity of [place] [phone] De dical nal 059 [facility] 2020-12-25 2020-12-25 Outpatient R ANUJ, [facility] [id number] -[id number] Univers 09:40:00 09:40:00 JULIUS [id number] ity o f [facility] 2020-12-25 2020-12-25 Outpatient R ANUJ, [facility] [id number] Univers 09:40:00 09:40:00 QIADEEJAY ity o f [facility] 2020-12-19 2020-12-19 [facility]ill [facility] 1.2.840.114 [id number] Univers 00:00:00 00:00:00 Julius Augustin 350.1.13.10 [place] of [place] [phone] De dical nal 9 [facility] 2020-10-06 2020-10-06 Orders Doctor KRISTIE 1.2.840.114 [id number] Univers 00:00:00 00:00:00 Only Unassigned, NOEL 350.1.13.10 ity of [place] [facility] 4.2.7.2.686 Robert as [phone] [facility] 009 [place] 2020-09-19 2020-09-19 Patient James Jennie FLOWERS 1.2.840.114 [id number] 00:00:00 00:00:00 Outreach E NOEL 350.1.13.10 HOSPITAL 4.2.7.2.686 [phone] [facility] 2020-09-19 2020-09-19 Patient James Jennie FLOWERS 1.2.840.114 [id number] Univers 00:00:00 00:00:00 Outreach E NOEL 350.1.13.10 i ty of [facility] 4.2.7.2.686 [place] as [phone] [facility] 043 [place] 2020-09-14 2020-09-14 Patient Jennie Ramirez Yifan 1.2.840.114 [id number] Univers 00:00:00 00:00:00 Outreach E Oliveros 350.1.13.10 i ty of [place].2.[place] [phone] [facility] 403 Branch 2020-09-14 2020-09-14 Patient Jennie Ramirez 1.2.840.114 [id number] 00:00:00 00:00:00 Outreach E Oliveros 350.1.13.10 [place] 4.2.7.2.686 [phone] 403 2020-09-12 2020-09-12 Transition Gopal Banerjeeamy 1.2.840.114 [id number] Univers 00:00:00 00:00:00 of Care Corie Oliveros 350.1.13.10 ity of [place] [phone] [facility] 403 Branch 2020-09-12 2020-09-12 Transition Gopal Banerjeeamy 1.2.840.114 [id number] 00:00:00 00:00:00 of Care Corie Oliveros 350.1.13.10 [place] 4.2.7.2.686 [phone] 403 2020-09-06 2020-09-09 [facility] 1.2.840.1 14 [id number] [facility] 09:57:00 12:27:00 Encounter Richardpricilla Any Cohen 350.1.13.1 0 ity of [facility] 4.2.7.2.686 [place] [phone] [facility] 090 Branch 2020-09-06 2020-09-09 [facility] 1.2.840.1 14 [id number] 09:57:00 12:27:[address] Any Cohen 350.1.13.1 0 [facility] [phone] 090 2020-09-06 2020-09-06 Telephone Anuj [facility] 1.2.355.894 [id number] Univers 00:00:00 00:00:00 Julius Augustin 350.1.13.10 ity of [place] [phone] De dical nal 059 [facility] 2020-09-06 2020-09-06 Telephone [facility] 1.2.781.926 [id number] 00:00:00 00:00:00 Julius Jade 350.1.13.10 [place] 4.2.7.2.686 Professio [phone] [address] 2020-09-01 2020-09-03 [facility] [place] 1.2.840 .114 [id number] [facility] 16:41:00 14:30:00 Chantel Bolton 350.1.13.10 ity of [place] [phone] [facility] 081 [place] 2020-09-01 2020-09-03 Emergency [place], [facility] 1.2.840 .114 [id number] 16:41:00 14:30:00 Chantel Bolton 350.1.13.10 [place] 4.2.7.2.686 [place] [phone] [facility] 2020-07-05 2020-07-05 Orders Doctor KRISTIE 1.2.840.114 [id number] Univers 00:00:00 00:00:00 Only Unassigned, NOEL 350.1.13.10 ity of [place] [facility] 4.2.7.2.686 Robert as [phone] [facility] 009 Branch 2020-07-05 2020-07-05 Orders Doctor KRISTIE 1.2.840.114 [id number] 00:00:00 00:00:00 Only Unassigned, NOEL 350.1.13.10 [place] [facility] 4.2.7.2.686 [id number] 009 2020-06-27 2020-06-27 Office [facility] 1.2.840.114 [id number] [facility] 13:05:18 13:42:05 Visit Julius Augustin 350.1.13.10 ity of [place] [phone] De dical [address] 2020-06-27 2020-06-27 Office [facility] 1.2.840.114 [id number] 13:05:18 13:42:05 Visit Julius Augustin 350.1.13.10 [place] 4.2.7.2.686 Professio [phone] [address] 2020-06-27 2020-06-27 Outpatient R [facility] [id number] -[id number] Univers 13:00:00 13:00:00 JULIUS [id number] ity o f [facility] 2020-06-27 2020-06-27 Outpatient R [facility] [id number] Univers 13:00:00 13:00:00 JULIUS ity o f [facility] 2020-06-22 2020-06-22 Telephone [facility] 1.2.734.459 [id number] Univers 00:00:00 00:00:00 Julius Augustin 350.1.13.10 it[place] of [place] [facility] [phone] De dical [address] 2020-06-02 2020-06-03 Emergency Luis Angel Arreola [facility] 1.2.840. 114 [id number] Univers 11:32:00 13:07:00 Florian Dyer 350.1.13.10 ity of [place] [phone] [facility] 081 [place] 2020-05-30 2020-05-30 Transition Yifan Banerjee 1.2.840.114 [id number] Univers 00:00:00 00:00:00 of Care Corie Oliveros 350.1.13.10 ity of [place].2.[place] [phone] [facility] 403 Branch 2020-05-23 2020-05-28 Hospital Héctor Bales 1.2.840.1 14 [id number] Univers 14:23:00 14:45:00 Encounter Logan Seth 350.1.13.10 ity of [facility] 4.2.7.2.686 [facility] [phone] Medical CyrRay 090 [facility] 2020-05-23 2020-05-23 Orders Doctor KRISTIE 1.2.840.114 [id number] Univers 00:00:00 00:00:00 Only Unassigned, NOEL 350.1.13.10 ity of [place] [facility] 4.2.7.2.686 Robert as [phone] [facility] 009 [place] 2019-10-31 2019-10-31 Emergency [facility] 1.2.840.114 [id number] Univers 13:38:57 16:16:00 Vivian Augustin 350.1.13.10 ity of [place] 4.2.7.2.686 [facility] [phone] [address] 2019-10-31 2019-10-31 Emergency X [facility] E[facility] [id number] Univers 13:38:57 16:16:00 [facility] 2019-09-21 2019-09-21 Case Harleen KRISTIE 1.2.840.114 [id number] Univers 00:00:00 00:00:00 Management , Naya COHEN 350.1.13.10 ity of [facility] 4.2.7.2.686 [place] [phone] [place] [address] Branch 2019-05-09 2019-05-09 Emergency [facility] 1.2.005.013 [id number] Univers 17:45:02 22:25:00 Nick Augustin 350.1.13.10 i ty of [place] 4.2.7.2.686 [facility] [phone] [address] Results Test Description Test Time Test Comments Results Result Comments Source POCT GLUCOSE (AUTOMATED) 2021-01-16 12:46:34 Test Item Value Reference Range Interpretation Comme nts POCT GLU (test code = 5701199044) 177 mg/dL 70-110 H Lab Interpretation (test code = 26149-8) [facility]2021-[facility]-16 10:18:23 Test Item Value Reference Range Interpretation Comments POCT GLU (test code = 9088194083) 229 mg/dL 70-110 H Lab Interpretation (test code = Abnormal 55894-2) [facility]2021-01-16 10:18:18 Test Item Value Reference Range Interpretation Comments POCT GLU (test code = 8014069345) 164 mg/dL 70-110 H Lab Interpretation (test code = Abnormal 78857-8) [facility])2021-01-16 04:47:30 Test Item Value Reference Range Interpretation Comments POCT GLU (test code = 3620409199) 141 mg/dL 70-110 H Lab Interpretation (test code = Abnormal 44738-5) [facility] GLU[facility]SE (AUTOMATED)2021-01-16 01:30:35 Test Item Value Reference Range Interpretation Comments POCT GLU (test code = 6879350063) 176 mg/dL 70-110 H Lab Interpretation (test code = Abnormal 01271-6) [facility] GLU[facility]SE (AUTOMATED)2021-01-15 21:25:49 Test Item Value Reference Range Interpretation Comments POCT GLU (test code = 7448542736) 175 mg/dL 70-110 H Lab Interpretation (test code = Abnormal 18301-7) [facility]1C[facility]2021-01-15 16:57:06 Test Item Value Reference Range Interpretation Comments HGB A1C (test code = 9.6 % 4.0-5.7 H 4548-4) ALTAGRACIA (test code = ALTAGRACIA) Reference RangesNormal: <5.7%Prediabetes: 5.7 - 6.4%Diabetes: > 6.5% Lab Interpretation (test Abnormal code = 96807-2) [facility] [id number] 15:19:43 Test Item Value Reference Range Interpretation Comments NT-proBNP (test code 314 pg/mL See_Comment H [Autom ated = 8269208679) message] The system which generated this result transmitted reference range : <=125. The reference range was not used to interpret this result as normal/abnormal . ALTAGRACIA (test code = ALTAGRACIA) Biotin has been reported to cause a negative bias, interpret results relative to patient's use of biotin. Lab Interpretation Abnormal (test code = 49569-2) [facility] 1 [id number] 14:08:55 No acute cardiopulmonary abnormality. Preliminary Report Dictated by Resident: Noam Lam MD., have reviewed this study and agree [...] AM CDTEXAM: XR CHEST 1 VWCOMPARISON: XR CHEST1 VW, 09/06/2020HISTORY: chest pain FINDINGS:Lungs: The lungs are clear and moderate expanded. No pleural abnormalities.Heart/Mediastinum: The cardiomediastinal silhouette is normal in sizeaccounting for technique.Bones: No osseous lesions are detected. The soft tissues appear normalIMPRESSIONNo acute cardiopulmonary abnormality.Preliminary Report Dictated by Resident: Noam Chavez MD., have reviewed this study and agree with theabove report.[facility])2021-01-15 09:40:59 Test Item Value Reference Range Interpretation Comments POCT GLU (test code = 2267319830) 241 mg/dL 70-110 H Lab Interpretation (test code = Abnormal 70523-8) [facility] [id number] 08:59:59 Test Item Value Reference Range Interpretation Comments TROPONIN I (test <0.012 See_Comment [Automated code = 1504493672) message] The system which generated this result [...] ? Lab Interpretation Normal (test code = 67469-1) [facility] (NA, K, CL, CO2, GLUCOSE, BUN, CREATININE, CA)2021-01-15 08:49:57 Test Item Value Reference Range Interpretation Comments NA (test code = 136 mmol/L 135-145 1336960968) K (test code = 3.9 mmol/L 3.5-5.0 4798882723) CL (test code = 106 mmol/L 98-108 9591588088) CO2 TOTAL (test code = 24 mmol/L 23-31 0610786547) AGAP (test code = 2-16 4088156512) BUN (test code = 23 mg/dL 7-23 5283431291) GLUCOSE (test code = 216 mg/dL 70-110 H 3849155240) CREATININE (test code = 0.71 mg/dL 0.60-1.25 5615477111) CALCIUM (test code = 8.7 mg/dL 8.6-10.6 0407399719) eGFR (test code = mL/min/1.73m2 9767985188) ALTAGRACIA (test code = ALTAGRACIA) Association of [...] tests). Lab Interpretation Abnormal (test code = 03375-4) [facility] with [id number] 07:33:55 Test Item Value Reference Range Interpretation Comments WBC (test code = See_Comment [Automated 5714-2) message] The sy stem which generated this result transmitted reference range : 4.20 - 10.70 10*3/?L. The reference range was not used to interpret this result as normal/abnormal . RBC (test code = See_Comment [Automated 772-8) message] The sy stem which generated this [...] RDW-SD (test code = 39.8 fL 38.5-51.6 46080-2) RDW-CV (test code = 11.8 % 12.1-15.4 L 788-0) PLT (test code = See_Comment [Automated 512-3) message] The sy stem which generated this result transmitted reference range : 150 - 328 10*3/ ?L. The reference r cristin was not used to interpret this result as normal/abnormal . MPV (test code = 10.2 fL 9.8-13.0 63351-6) NRBC/100 WBC (test See_Comment [Automat ed code = 1378289921) message] The system which generated this result transmitted reference range : 0.0 - 10.0 /100 WBCs. The refer ence range was not u sed to interpret th is result as normal/abnormal . NRBC x10^3 (test code <0.01 See_Comment [Auto mated = 9710644146) message] The s ystem which generated this result transmitted reference range : 10*3/?L. The reference range was not used to interpret this result as normal/abnormal . GRAN MAT (NEUT) % 46.5 % (test code = 770-8) IMM GRAN % (test code 0.30 % = 2609118059) LYMPH % (test code = 40.9 % 736-9) MONO % (test code = 10.0 % 5905-5) EOS % (test code = 1.7 % 713-8) BASO % (test code = 0.6 % 706-2) GRAN MAT x10^3(ANC) 4.07 10*3/uL 1.99-6.95 (test code = 7123794550) IMM GRAN x10^3 (test 0.03 10*3/uL 0.00-0.06 code = 7901750076) LYMPH x10^3 (test code 3.59 10*3/uL 1.09-3.23 H = 731-0) MONO x10^3 (test code 0.88 10*3/uL 0.36-1.02 = 742-7) EOS x10^3 (test code = 0.15 10*3/uL 0.06-0.53 711-2) BASO x10^3 (test code 0.05 10*3/uL 0.01-0.09 = 704-7) Lab Interpretation Abnormal (test code = 21805-4) [facility]2021-01-15 05:22:29 Test Item Value Reference Range Interpretation Comments POCT GLU (test code = 5035639313) 187 mg/dL 70-110 H Lab Interpretation (test code = Abnormal 20124-9) [facility]YROID STIMULATING [id number] 05:21:09 Test Item Value Reference Range Interpretation Comments TSH (test code = See_Comment Biotin has been 4741246745) reported to cau se a negative bias, interpret resul ts relative to pat ient's use of biotin. [Automated mess age] The system [employer] generated this result transmitted ref erence range: 0.45 - 4 .70 mIU/L. The refe rence range was not u sed to interpret this result as normal/abnor mal. Lab Interpretation (test Normal code = 67483-2) [facility] [id number] 03:49:21 Test Item Value Reference Range Interpretation Comments TROPONIN I (test <0.012 See_Comment [Automated code = 6932289591) message] The system which generated this result [...] ? Lab Interpretation Normal (test code = 10610-1) [facility] HospitalLIPID PANEL (82808)(TOTAL CHOLESTEROL, TRIGLYCERIDES, HDL)2021-01-15 02:54:40 Test Item Value Reference Range Interpretation Comments CHOL (test code = 258 mg/dL 120-200 H 0299068053) HDL (test code = 47 mg/dL >40 8976255422) HDLC RATIO (test code = See_Comment H [Au tomated message] 6800597694) The system [employer] generated this result transmit melissa reference range : <=5.0. The refe rence range was not u sed to interpret th is result as normal/abnormal . TRIG (test code = 309 mg/dL 30-170 H 1657499471) LDL CHOL (test code = 149 mg/dL See_Comment [Auto mated message] 66159-3) The system [employer] generated this result transmit melissa reference range : <=160. The refe rence range was not u sed to interpret th is result as normal/abnormal . VLDL (test code = 62 mg/dL 5-60 H 6547403239) Lab Interpretation (test Abnormal code = 38335-8) [facility] S[facility]EN PANEL 2 [id number] 01:36:41 Test Item Value Reference Range Interpretation Comments AMPHET (test code = Negative Negative 7074757775) KASSI U (test code = Negative Negative 8836171709) BENZO U (test code = Negative Negative 4111126350) Cocaine Metabolite (test Negative Negative code = 8130127664) METHADONE (test code = Negative Negative 1312098574) OPIATES (test code = Negative Negative 9484467904) PCP (test code = Negative Negative 8685237581) THC (test code = Negative Negative 1914226817) ALTAGRACIA (test code = ALTAGRACIA) Urine Drug [...] testing). Lab Interpretation (test Normal code = 22076-3) [facility] (ID NOW RAPID TESTING)2021-01-15 00:22:13 Test Item Value Reference Range Interpretation Comments SARS-CoV-2 Rapid ID NOW Not Detected Not Detected (test code = 91562-3) ALTAGRACIA (test code = ALTAGRACIA) ID NOW COVID-19 Assay is an isothermal nucleic acid amplification test intended for the qualitative detection of nucleic acid from SARS-CoV-2 viral RNA in nasopharyngeal (GALLERY OR MUSEUM CURATOR) specimens. It is used under Emergency Use [...] indicated. Lab Interpretation Normal (test code = 26278-1) [facility]2021-01-14 23:59:46 Test Item Value Reference Range Interpretation Comments POCT GLU (test code = 250 mg/dL 70-110 H Notifi ed Provider 5098003270) Lab Interpretation (test Abnormal code = 43847-6) [facility] [id number] 22:56:14 Test Item Value Reference Range Interpretation Comments TROPONIN I (test <0.012 See_Comment [Automated code = 5121602683) message] The system which generated this result [...] ? Lab Interpretation Normal (test code = 19114-3) [facility] MET[facility]OLIC PANEL (52191)2021-01-14 22:51:32 Test Item Value Reference Range Interpretation Comments NA (test code = 134 mmol/L 135-145 L 5191385163) K (test code = 3.8 mmol/L 3.5-5.0 3668435602) CL (test code = 99 mmol/L 98-108 5038887338) CO2 TOTAL (test code = 22 mmol/L 23-31 L 1206354086) AGAP (test code = 2-16 2950822529) BUN (test code = 23 mg/dL 7-23 4805115550) GLUCOSE (test code = 344 mg/dL 70-110 H 3454534707) CREATININE (test code = 0.83 mg/dL 0.60-1.25 5990832552) TOTAL BILI (test code = 0.5 mg/dL 0.1-1.5 4150963190) CALCIUM (test code = 9.5 mg/dL 8.6-10.6 4981019083) T PROTEIN (test code = 7.1 g/dL 6.3-8.2 4245455747) ALBUMIN (test code = 4.5 g/dL 3.5-5.0 8531379344) ALK PHOS (test code = 79 U/L 34-122 2160310678) ALTv (test code = 30 U/L 5-50 2-6) AST(SGOT) (test code = 28 U/L 13-40 6927435495) eGFR (test code = mL/min/1.73m2 1985444424) ALTAGRACIA (test code = ALTAGRACIA) Association of [...] tests). Lab Interpretation Abnormal (test code = 25704-4) [facility]aPTT2021-05-23 22:45:30 Test Item Value Reference Range Interpretation Comments APTT Patient (test See_Comment [Automat ed code = 3173-2) message] The system which generated this result transmitted reference range : 23 - 38 Seconds . The reference range was not used to interpr et this result as normal/abnormal . ALTAGRACIA (test code = ALTAGRACIA) The [facility] patient population mean normal value for aPTT is 30 seconds. Lab Interpretation Normal (test code = 03037-7) [facility], [id number] 22:44:50 Test Item Value Reference Range Interpretation Comments LIPASE (test code = 8325411003) 99 U/L 0-220 Lab Interpretation (test code = Normal 59122-2) [facility] HospitalPROTHROMBIN TIME / [id number] 22:43:29 Test Item Value Reference Range Interpretation [...] tions. Lab Interpretation (test Normal code = 37444-7) [facility] WITH [id number] 22:33:29 Test Item Value Reference Range Interpretation Comments WBC (test code = See_Comment [Automated 5290-2) message] The sy stem which generated this result transmitted reference range : 4.20 - 10.70 10*3/?L. The reference range was not used to interpret this result as normal/abnormal . RBC (test code = See_Comment [Automated 619-8) message] The sy stem which generated this [...] RDW-SD (test code = 39.3 fL 38.5-51.6 46121-5) RDW-CV (test code = 11.7 % 12.1-15.4 L 788-0) PLT (test code = See_Comment [Automated 777-3) message] The sy stem which generated this result transmitted reference range : 150 - 328 10*3/ ?L. The reference r cristin was not used to interpret this result as normal/abnormal . MPV (test code = 10.5 fL 9.8-13.0 23024-4) NRBC/100 WBC (test See_Comment [Automat ed code = 7709252938) message] The system which generated this result transmitted reference range : 0.0 - 10.0 /100 WBCs. The refer ence range was not u sed to interpret th is result as normal/abnormal . NRBC x10^3 (test code <0.01 See_Comment [Auto mated = 0425219148) message] The s ystem which generated this result transmitted reference range : 10*3/?L. The reference range was not used to interpret this result as normal/abnormal . GRAN MAT (NEUT) % 70.2 % (test code = 770-8) IMM GRAN % (test code 0.40 % = 6326186248) LYMPH % (test code = 20.5 % 736-9) MONO % (test code = 8.0 % 5905-5) EOS % (test code = 0.5 % 713-8) BASO % (test code = 0.4 % 706-2) GRAN MAT x10^3(ANC) 7.28 10*3/uL 1.99-6.95 H (test code = 5734585910) IMM GRAN x10^3 (test 0.04 10*3/uL 0.00-0.06 code = 6305677019) LYMPH x10^3 (test code 2.13 10*3/uL 1.09-3.23 = 731-0) MONO x10^3 (test code 0.83 10*3/uL 0.36-1.02 = 742-7) EOS x10^3 (test code = 0.05 10*3/uL 0.06-0.53 L 711-2) BASO x10^3 (test code 0.04 10*3/uL 0.01-0.09 = 704-7) Lab Interpretation Abnormal (test code = 89280-0) [facility]2020-09-09 14:14:00 Test Item Value Reference Range Interpretation Comments POCT GLU (test code = 8696212706) 132 mg/dL 70-110 H Lab Interpretation (test code = Abnormal 32962-4) [facility] (NA, K, CL, CO2, GLUCOSE, BUN, CREATININE, CA)2020-09-09 09:50:00 Test Item Value Reference Range Interpretation Comments NA (test code = 132 mmol/L 135-145 L 2478226119) K (test code = 4.3 mmol/L 3.5-5 4403246538) CL (test code = 103 mmol/L 98-108 2802325691) CO2 TOTAL (test code = 24 mmol/L 23-31 9459092672) AGAP (test code = 2-16 1199483795) BUN (test code = 22 mg/dL 7-23 3604214107) GLUCOSE (test code = 153 mg/dL 70-110 H 5078615332) CREATININE (test code = 0.83 mg/dL 0.6-1.25 6945304669) CALCIUM (test code = 8.8 mg/dL 8.6-10.6 6511982923) eGFR Calculation mL/min/1.73m2 (Non-) (test code = 4544705878) eGFR Calculation mL/min/1.73m2 () (test code = 1092751737) ALTAGRACIA (test code = ALTAGRACIA) Association of [...] tests). Lab Interpretation Abnormal (test code = 13642-0) [facility]UM2021-01-16 09:50:00 Test Item Value Reference Range Interpretation Comments MAGNESIUM (test code = 7282688920) 2.2 mg/dL 1.7-2.4 Lab Interpretation (test code = Normal 37485-4) [facility]2020-09-09 03:15:00 Test Item Value Reference Range Interpretation Comments POCT GLU (test code = 8905569721) 173 mg/dL 70-110 H Lab Interpretation (test code = Abnormal 61845-3) [facility]SE (AUT[facility]ATED)2020-09-08 22:52:00 Test Item Value Reference Range Interpretation Comments POCT GLU (test code = 9964455905) 169 mg/dL 70-110 H Lab Interpretation (test code = Abnormal 55567-4) [facility] GLUCOSE (AUTOMATED)2020-09-08 18:34:00 Test Item Value Reference Range Interpretation Comments POCT GLU (test code = 266 mg/dL 70-110 H Notifi ed Provider [id number]) Lab Interpretation (test Abnormal code = 73154-0) [facility] (NA, K, CL, CO2, GLUCOSE, BUN, CREATININE, CA)2020-09-08 11:59:00 Test Item Value Reference Range Interpretation Comments NA (test code = 135 mmol/L 135-145 0122813790) K (test code = 4.3 mmol/L 3.5-5 5046589800) CL (test code = 104 mmol/L 98-108 4232733415) CO2 TOTAL (test code = 24 mmol/L 23-31 3684433713) AGAP (test code = 2-16 0523070865) BUN (test code = 21 mg/dL 7-23 2886256986) GLUCOSE (test code = 145 mg/dL 70-110 H 5245749280) CREATININE (test code = 0.82 mg/dL 0.6-1.25 6554198077) CALCIUM (test code = 8.6 mg/dL 8.6-10.6 0850685374) eGFR Calculation mL/min/1.73m2 (Non-) (test code = 8457520481) eGFR Calculation mL/min/1.73m2 () (test code = 6283667964) ALTAGRACIA (test code = ALTAGRACIA) Association of [...] tests). Lab Interpretation Abnormal (test code = 61874-9) [facility] Test Item Value Reference Range Interpretation Comments MAGNESIUM (test code = 6423842097) 2.3 mg/dL 1.7-2.4 Lab Interpretation (test code = Normal 94363-0) [facility]SE (AUT[facility]ATED)2020-09-08 00:06:00 Test Item Value Reference Range Interpretation Comments POCT GLU (test code = 3020666881) 126 mg/dL 70-110 H Lab Interpretation (test code = Abnormal 27078-3) [facility] [id number] 22:45:00COVID DMT InterpretationInterpretation/Recommendations: Molecular NAAT Tests for Active Infection with the SARS-CoV-2 Virus: This patient has a history of testing negative on multiple occasions for pbaIVAA-UvD-4 virus that causes COVID-19 illness, with no [...] Virus: Testing for IgM and IgG antibodies 1-3weeks after illness onset will indicate whether the patient has produced antibodies to the virus. Atthis time, it is not known if the production of antibodies - specifically IgG antibodies - indicates whether the patient is immune to future infections with the SARS-CoV-2 virus. Interpretation Result Comments:These interpretation comments are based upon all COVID-19 testing the patient has had at [facility], including molecular NAAT testing (more commonly known as PCR testing and Rapid ID Now testing) and antibody testing. It does not take into account any testing that a patient has had outside of the [facility] medical record. [facility] LABORATORY SERVICESCOVID [id number]-QkD-0 Rapid ID NOW (no units) ? ? Date ? Value ? 09/06/2020 ? Not Detected ? ? ? 09/01/2020 ? Not Detected ? ? ? 06/02/2020 ? Not Detected ? ? ? 05/23/2020 ? Not Detected ? [facility]2020-09-07 22:11:00 Test Item Value Reference Range Interpretation Comments POCT GLU (test code = 4905151021) 128 mg/dL 70-110 H Lab Interpretation (test code = Abnormal 93120-6) [facility] ([facility]2020-09-07 18:25:00 Test Item Value Reference Range Interpretation Comments POCT GLU (test code = 0062351735) 175 mg/dL 70-110 H Lab Interpretation (test code = Abnormal 56184-2) [facility] ACT LOW [id number] 17:12:00 Test Item Value Reference Range Interpretation Comments ACTLR (test code = See_Comment H [Automat ed message] 2411980209) The system [employer] generated this result transmitted ref erence range: 89 - 169 Seconds. The reference range was not used to int erpret this result as normal/abnormal . Lab Interpretation (test Abnormal code = 40363-7) [facility] ACT LOW [id number] 16:56:00 Test Item Value Reference Range Interpretation Comments ACTLR (test code = See_Comment H [Automat ed message] 9901572336) The system [employer] generated this result transmitted ref erence range: 89 - 169 Seconds. The reference range was not used to int erpret this result as normal/abnormal . Lab Interpretation (test Abnormal code = 02387-4) [facility] ACT LOW [id number] 16:51:00 Test Item Value Reference Range Interpretation Comments ACTLR (test code = See_Comment [Automat ed message] 1163160610) The system [employer] generated this result transmitted ref erence range: 89 - 169 Seconds. The re ference range was not u sed to interpret this result as normal/abnor mal. Lab Interpretation (test Normal code = 46529-7) [facility]DENSITY LIPOPROTEIN, [id number] 10:16:00 Test Item Value Reference Range Interpretation Comments dLDL Chol (test code = 58712-8) 39 mg/dL <130 Lab Interpretation (test code = Normal 82815-8) [facility] HospitalLIPID PANEL (66568)(TOTAL CHOLESTEROL, TRIGLYCERIDES, HDL)2020-09-07 09:56:00 Test Item Value Reference Range Interpretation Comments CHOL (test code = 114 mg/dL 120-200 L 2897250141) HDL (test code = 33 mg/dL >40 L 4813887526) HDLC RATIO (test code = See_Comment [Au tomated message] 2225322844) The system [employer] generated this result transmitted ref erence range: <=5.0. T he reference range was not used to int erpret this result as normal/abnormal . TRIG (test code = 478 mg/dL 30-170 H 0279815760) LDL CHOL (test code = Unable to calculate 21380-0) LDL due to elev ated triglyceride le ankur greater than 40 0 mg/dL. VLDL (test code = 96 mg/dL 5-60 H 9481685650) Lab Interpretation Abnormal (test code = 39692-1) [facility] (NA, K, CL, CO2, GLUCOSE, BUN, CREATININE, CA)2020-09-07 09:55:00 Test Item Value Reference Range Interpretation Comments NA (test code = 134 mmol/L 135-145 L 3144151114) K (test code = 4.0 mmol/L 3.5-5 2120001497) CL (test code = 103 mmol/L 98-108 6672178134) CO2 TOTAL (test code = 25 mmol/L 23-31 4304787010) AGAP (test code = 2-16 0919460382) BUN (test code = 25 mg/dL 7-23 H 9938775017) GLUCOSE (test code = 187 mg/dL 70-110 H 8758423188) CREATININE (test code = 0.79 mg/dL 0.6-1.25 7466151471) CALCIUM (test code = 8.7 mg/dL 8.6-10.6 5125103729) eGFR Calculation mL/min/1.73m2 (Non-) (test code = 5948722805) eGFR Calculation mL/min/1.73m2 () (test code = 7001697524) ALTAGRACIA (test code = ALTAGRACIA) Association of [...] tests). Lab Interpretation Abnormal (test code = 04914-6) [facility]20[facility] 09:55:00 Test Item Value Reference Range Interpretation Comments MAGNESIUM (test code = 8098981585) 2.1 mg/dL 1.7-2.4 Lab Interpretation (test code = Normal 92168-3) [facility] THRMPLAS [id number] 09:29:00 Test Item Value Reference Range Interpretation Comments APTT Patient (test code See_Comment H [Au tomated message] = 3173-2) The system [employer] generated this result transmitted ref erence range: 26 - 36 Seconds. The reference range was not used to int erpret this result as normal/abnormal . Lab Interpretation (test Abnormal code = 05984-7) [facility] HospitalTROPONIN [id number] 05:42:00 Test Item Value Reference Range Interpretation Comments TROPONIN I (test 0.007 ng/mL See_Comment [Automated code = 5087806241) message] The system which generated this result [...] ? Lab Interpretation Normal (test code = 74834-0) [facility]2020-09-07 04:38:00 Test Item Value Reference Range Interpretation Comments POCT GLU (test code = 3708204506) 240 mg/dL 70-110 H Lab Interpretation (test code = Abnormal 77778-6) [facility]GALV/CLC ONLY - URINE DRUG (IMMUNOASSAY) - COMPREHENSIVE DRUG [id number] 03:59:00 Test Item Value Reference Range Interpretation Comments AMPHET (test code = Negative Negative 6256619480) KASSI U (test code = Negative Negative 3575072321) BENZO U (test code = Negative Negative 8258953467) Cocaine Metabolite (test Negative Negative code = 5843667191) METHADONE (test code = Negative Negative 6849610450) OPIATES (test code = Presumptive Positive Negative A 8587613212) PCP (test code = Negative Negative 9208758539) THC (test code = Negative Negative 6994539830) ALTAGRACIA (test code = ALTAGRACIA) Urine Drug [...] testing). Lab Interpretation (test Abnormal code = 72782-1) [facility] TH[facility] [id number] 01:52:00 Test Item Value Reference Range Interpretation Comments APTT Patient (test code See_Comment H [Au tomated message] = 3173-2) The system [employer] generated this result transmitted ref erence range: 26 - 36 Seconds. The reference range was not used to int erpret this result as normal/abnormal . Lab Interpretation (test Abnormal code = 60531-2) [facility])2020-09-06 22:33:00 Test Item Value Reference Range Interpretation Comments POCT GLU (test code = 8592032811) 140 mg/dL 70-110 H Lab Interpretation (test code = Abnormal 22917-4) [facility]TROP[facility]IN [id number] 22:21:00 Test Item Value Reference Range Interpretation Comments TROPONIN I (test 0.004 ng/mL See_Comment [Automated code = 3074545406) message] The system which generated this result [...] ? Lab Interpretation Normal (test code = 30178-8) [facility] HospitalGLYCOSYLATED HEMOGLOBIN (A1C)2020-09-06 19:42:00 Test Item Value Reference Range Interpretation Comments HGB A1C (test code = 8.8 % 4-6 H 4548-4) ALTAGRACIA (test code = ALTAGRACIA) %A1C (NGSP) Interpretation (ADA)4.8-5.6 ? ? Normal or (Non-Diabetic Range)5.7-6.4 ? ? Increased Risk (Pre-Diabetic)>6.5 ?Diabetes Indicated Lab Interpretation Abnormal (test code = 23313-4) [facility]2021-[facility]-13 19:34:00 Test Item Value Reference Range Interpretation Comments MAGNESIUM (test code = 7416050724) 1.9 mg/dL 1.7-2.4 Lab Interpretation (test code = Normal 72615-8) [facility]COVID-19 (ID NOW RAPID TESTING)2020-09-06 16:56:00 Test Item Value Reference Range Interpretation Comments SARS-CoV-2 Rapid ID NOW Not Detected Not Detected (test code = 60751-4) ALTAGRACIA (test code = ALTAGRACIA) ID NOW COVID-19 Assay is an isothermal nucleic acid amplification test intended for the qualitative detection of nucleic acid from SARS-CoV-2 viral RNA in nasopharyngeal (GALLERY OR MUSEUM CURATOR) specimens. It is used under Emergency Use [...] indicated. Lab Interpretation Normal (test code = 95849-4) [facility] HospitalJAMES [id number] 16:49:00 Test Item Value Reference Range Interpretation Comments TROPONIN I (test <0.012 See_Comment [Automated code = 1848422787) message] The system which generated this result [...] ? Lab Interpretation Normal (test code = 47471-9) [facility] HospitalN-TERMINAL [id number] 16:45:00 Test Item Value Reference Range Interpretation Comments NT-proBNP (test code 354 pg/mL See_Comment H [Autom ated = 9619369627) message] The system which generated this result transmitted reference range : <=125. The reference range was not used to interpret this result as normal/abnormal . ALTAGRACIA (test code = ALTAGRACIA) Biotin has been reported to cause a negative bias, interpret results relative to patient's use of biotin. Lab Interpretation Abnormal (test code = 45594-9) [facility] HospitalCOMP. METABOLIC PANEL (91906)2020-09-06 16:42:00 Test Item Value Reference Range Interpretation Comments NA (test code = 134 mmol/L 135-145 L 2030142889) K (test code = 4.4 mmol/L 3.5-5 0195521639) CL (test code = 99 mmol/L 98-108 5873464659) CO2 TOTAL (test code = 29 mmol/L 23-31 4644167814) AGAP (test code = 2-16 8888936172) BUN (test code = 17 mg/dL 7-23 7310252040) GLUCOSE (test code = 232 mg/dL 70-110 H 6025321778) CREATININE (test code = 0.79 mg/dL 0.6-1.25 6932012973) TOTAL BILI (test code = 0.8 mg/dL 0.1-1.6 0402646057) CALCIUM (test code = 9.0 mg/dL 8.6-10.6 4618990347) T PROTEIN (test code = 7.1 g/dL 6.3-8.2 7282997526) ALBUMIN (test code = 4.3 g/dL 3.5-5 0347003588) ALK PHOS (test code = 66 U/L 34-122 7146235855) ALTv (test code = 38 U/L 5-50 1742-6) AST(SGOT) (test code = 29 U/L 13-40 6270251162) eGFR Calculation mL/min/1.73m2 (Non-) (test code = 8337349785) eGFR Calculation mL/min/1.73m2 () (test code = 3309009606) ALTAGRACIA (test code = ALTAGRACIA) Association of [...] tests). Lab Interpretation Abnormal (test code = 29019-9) [facility] HospitalXR CHEST 1 [id number] 16:41:34HISTORY: Chest pain. TECHNIQUE: Portable AP erect view of the chest is obtained. Comparison madewith09/01/2020 study. FINDINGS: No acute pneumonia. No pneumothorax or pleural effusion orpulmonary congestion detected. Cardiac size is within normal limits. CONCLUSIONS: No signs of acute cardiopulmonary disease.[facility], Radiant Results Inft User - 09/06/2020 10:42 AM CSTHISTORY: Chest pain.TECHNIQUE: Portable AP erect view of the chest is obtained. Comparison madewith 09/01/2020 study.FINDINGS: No acute pneumonia. No pneumothorax or pleural effusion orpulmonary congestion detected. Cardiac size is within normal limits. CONCLUSIONS: No signs of acute cardiopulmonary disease.[facility] HospitalaPTT2021-[facility]-13 16:39:00 Test Item Value Reference Range Interpretation Comments APTT Patient (test See_Comment [Automat ed code = 3173-2) message] The system which generated this result transmitted reference range : 23 - 38 Seconds . The reference range was not used to interpr et this result as normal/abnormal . ALTAGRACIA (test code = ALTAGRACIA) The [facility] patient population mean normal value for aPTT is 30 seconds. Lab Interpretation Normal (test code = 62687-5) [facility] HospitalPROTHROMBIN TIME / [id number] 16:37:00 Test Item Value Reference Range Interpretation [...] tions. Lab Interpretation (test Normal code = 09641-1) [facility] HospitalLIPASE, [id number] 16:36:00 Test Item Value Reference Range Interpretation Comments LIPASE (test code = 0912302895) 88 U/L 0-220 Lab Interpretation (test code = Normal 93608-8) [facility] HospitalCBC WITH [id number] 16:25:00 Test Item Value Reference Range Interpretation Comments WBC (test code = See_Comment [Automated 1890-2) message] The sy stem which generated this result transmitted reference range : 4.20 - 10.70 10*3/?L. The reference range was not used to interpret this result as normal/abnormal . RBC (test code = See_Comment [Automated 429-8) message] The sy stem which generated this [...] RDW-SD (test code = 40.6 fL 38.5-51.6 45221-3) RDW-CV (test code = 11.9 % 12.1-15.4 L 788-0) PLT (test code = See_Comment [Automated 777-3) message] The sy stem which generated this result transmitted reference range : 150 - 328 10*3/ ?L. The reference r cristin was not used to interpret this result as normal/abnormal . MPV (test code = 10.5 fL 9.8-13 12297-6) NRBC/100 WBC (test See_Comment [Automat ed code = 2565702124) message] The system which generated this result transmitted reference range : 0.0 - 10.0 /100 WBCs. The refer ence range was not u sed to interpret th is result as normal/abnormal . NRBC x10^3 (test code <0.01 See_Comment [Auto mated = 0249336919) message] The s ystem which generated this result transmitted reference range : 10*3/?L. The reference range was not used to interpret this result as normal/abnormal . GRAN MAT (NEUT) % 57.1 % (test code = 770-8) IMM GRAN % (test code 0.60 % = 2419690189) LYMPH % (test code = 30.0 % 736-9) MONO % (test code = 10.1 % 5905-5) EOS % (test code = 1.9 % 713-8) BASO % (test code = 0.3 % 706-2) GRAN MAT x10^3(ANC) 5.13 10*3/uL 1.99-6.95 (test code = 5242610977) IMM GRAN x10^3 (test 0.05 10*3/uL 0-0.06 code = 3873482495) LYMPH x10^3 (test code 2.69 10*3/uL 1.09-3.23 = 731-0) MONO x10^3 (test code 0.91 10*3/uL 0.36-1.02 = 742-7) EOS x10^3 (test code = 0.17 10*3/uL 0.06-0.53 711-2) BASO x10^3 (test code 0.03 10*3/uL 0.01-0.09 = 704-7) Lab Interpretation Abnormal (test code = 92213-4) [facility] COVID [id number] 19:49:00COVID DMT InterpretationInterpretation/Recommendations: Molecular NAAT Tests for [...] antibodies - specifically IgG antibodies - indicates whetherthe patient is immune to future infections with the SARS-CoV-2 virus. Interpretation Result Comments:These interpretation comments are based upon all COVID-19 testing the patient has had at [facility], including molecular NAAT testing ( more commonly known as PCR testing and Rapid ID Now testing) and antibody testing. It does not take into account any testing that a patient has had outside of the [facility] medical record. [facility] LABORATORY SERVICESCOVID UrycrmdYTNM-UcA-1 Rapid ID NOW (no units) ? ? Date ? Value ? 09/01/2020 ? Not Detected ? ? ? 06/02/2020 ? Not Detected ? ? ? 05/23/2020? Not Detected ? [facility]Un[facility] 2020-09-03 17:33:00 Test Item Value Reference Range Interpretation Comments POCT GLU (test code = 9538417008) 212 mg/dL 70-110 H Lab Interpretation (test code = Abnormal 37821-8) [facility]SE ([facility]OMATED[facility]2020-09-03 13:50:00 Test Item Value Reference Range Interpretation Comments POCT GLU (test code = 1918478646) 221 mg/dL 70-110 H Lab Interpretation (test code = Abnormal 49688-3) [facility] [id number] 11:40:00 Test Item Value Reference Range Interpretation Comments TROPONIN I (test <0.012 See_Comment [Automated code = 3606378414) message] The system which generated this result [...] ? Lab Interpretation Normal (test code = 60620-2) [facility] Metabolic Panel (NA, K, CL, CO2, GLUCOSE, BUN, CREATININE, CA)2020-09-03 11:29:00 Test Item Value Reference Range Interpretation Comments NA (test code = 135 mmol/L 135-145 7838217608) K (test code = 4.6 mmol/L 3.5-5 4054509525) CL (test code = 101 mmol/L 98-108 7370002282) CO2 TOTAL (test code = 27 mmol/L 23-31 0842646220) AGAP (test code = 2-16 2557620474) BUN (test code = 26 mg/dL 7-23 H 3677705642) GLUCOSE (test code = 185 mg/dL 70-110 H 5306104943) CREATININE (test code = 0.77 mg/dL 0.6-1.25 6421700271) CALCIUM (test code = 9.0 mg/dL 8.6-10.6 6578085079) eGFR Calculation mL/min/1.73m2 (Non-) (test code = 3528228660) eGFR Calculation mL/min/1.73m2 () (test code = 9212068708) ALTAGRACIA (test code = ALTAGRACIA) Association of [...] tests). Lab Interpretation Abnormal (test code = 36891-4) [facility] with [id number] 11:18:00 Test Item Value Reference Range Interpretation Comments WBC (test code = See_Comment [Automated message] 6690-2) The system [employer] generated this result transmitted ref erence range: 4.20 - 1 0.70 10*3/?L. The re ference range was not u sed to interpret this result as normal/abnor mal. RBC (test code = See_Comment [Automated message] 789-8) The system [employer] generated this result transmitted ref erence range: [...] RDW-SD (test code 42.2 fL 38.5-51.6 = 73164-8) RDW-CV (test code 12.2 % 12.1-15.4 = 788-0) PLT (test code = See_Comment [Automated message] 777-3) The system whic h generated this result transmitted ref erence range: 150 - 32 8 10*3/?L. The re ference range was not u sed to interpret this result as normal/abnor mal. MPV (test code = 10.4 fL 9.8-13 41477-4) NRBC/100 WBC (test See_Comment [Automat ed message] code = 3594386448) The syste m which generated this result transmitted ref erence range: 0.0 - 10 .0 /100 WBCs. The refer ence range was not u sed to interpret this result as normal/abnor mal. NRBC x10^3 (test <0.01 See_Comment [Automated message] code = 6320634494) The syste m which generated this result transmitted ref erence range: 10*3/?L. The reference range was not used to interpr et this result as normal/abnormal . GRAN MAT (NEUT) % 53.5 % (test code = 770-8) IMM GRAN % (test 0.30 % code = 4718897702) LYMPH % (test code 32.7 % = 736-9) MONO % (test code 11.0 % = 5905-5) EOS % (test code = 2.1 % 713-8) BASO % (test code 0.4 % = 706-2) GRAN MAT 3.73 10*3/uL 1.99-6.95 x10^3(ANC) (test code = 3644522398) IMM GRAN x10^3 <0.03 0-0.06 (test code = 7941431473) LYMPH x10^3 (test 2.28 10*3/uL 1.09-3.23 code = 731-0) MONO x10^3 (test 0.77 10*3/uL 0.36-1.02 code = 742-7) EOS x10^3 (test 0.15 10*3/uL 0.06-0.53 code = 711-2) BASO x10^3 (test 0.03 10*3/uL 0.01-0.09 code = 704-7) [facility]2020-09-03 02:12:00 Test Item Value Reference Range Interpretation Comments POCT GLU (test code = 6769544874) 209 mg/dL 70-110 H Lab Interpretation (test code = Abnormal 24265-1) [facility] GLUCOSE (AUTOMATED)2020-09-02 18:59:00 Test Item Value Reference Range Interpretation Comments POCT GLU (test code = 4904914613) 161 mg/dL 70-110 H Lab Interpretation (test code = Abnormal 45908-6) [facility] GLUCOSE (AUTOMATED)2020-09-02 14:00:00 Test Item Value Reference Range Interpretation Comments POCT GLU (test code = 2174164512) 167 mg/dL 70-110 H Lab Interpretation (test code = Abnormal 77212-3) [facility] [id number] 12:54:00 Test Item Value Reference Range Interpretation Comments TROPONIN I (test <0.012 See_Comment [Automated code = 5918083061) message] The system which generated this result [...] ? Lab Interpretation Normal (test code = 92151-8) [facility] [id number] 08:44:00 Test Item Value Reference Range Interpretation Comments TROPONIN I (test <0.012 See_Comment [Automated code = 1910569873) message] The system which generated this result [...] ? Lab Interpretation Normal (test code = 40251-8) [facility]2020-09-02 03:52:00 Test Item Value Reference Range Interpretation Comments POCT GLU (test code = 9678911044) 143 mg/dL 70-110 H Lab Interpretation (test code = Abnormal 20490-9) [facility] CHEST PULMONARY [id number] 02:20:39 No acute pulmonary embolism. Suboptimal enhancement [...] solid pulmonary nodule with lobulated margins in thelingula. Bilateral scattered [...] PROTOCOLCLINICAL INDICATION: PE suspected, high pretest prob COMPARISON:929 2TECHNIQUE: Helical CT was performed and reconstructed at 1.25 mm slicethickness from lung base to apices after the administration of 120 mLOmnipaque-350 intravenous contrast, without complication.Display field ofview: 40 cm.FINDINGS:PULMONARY ARTERIES:Enhancement is suboptimal. No acute pulmonary embolism is seen to proximalpulmonary arteries. Pulmonary trunk is normal in diameter.CHEST:Lower neck/thyroid: Normal thyroid gland. Lungs: Unchanged 6 mm solid pulmonary nodule with lobulated margins in thelingula. Bilateral scattered tree-in-bud opacities, for example in theright upper lobe on coronal image #103. No parenchymal consolidations areseen.Pleura: No pleural thickening, pleural effusion or pneumothorax.Central airway: The central airways are patent.Thoracic aorta and great vessels: Normal in diameter.Heart and pericardium: Dense multivessel coronary arterialcalcification/stents.. Unremarkable cardiac morphology and pericardium.Lymph nodes: No enlarged thoracic lymph nodes.Mediastinum: Unremarkable.Thoracic spine and chest wall: No suspicious or aggressive osseous lesion.Other Lines/Tubes/Devices/Hardware: NoneVisualized upper abdomen: Unremarkable. IMPRESSIONNo acute pulmonary embolism. Suboptimal enhancement of pulmonary arteries.Subtle bilateral tree-in-bud opacities may represent a mildinfectious/inflammatory etiology.Unchanged 6 mm pulmonary nodule in the lingula. Recommend follow-up chestCT no later than 12 months.Multivessel coronary arterial calcification/stents. Preliminary Report Dictated by Resident: Tramaine Chavez, John Prasad MD., have reviewed this study and agree withthe above report.[facility] [id number] 00:10:00 Test Item Value Reference Range Interpretation Comments APPEARANCE (test code = Clear Clear 4401233634) COLOR (test code = Yellow Yellow 2127541875) PH (test code = 4.8-8.0 1020066409) SP GRAVITY (test code = 1.003-1.030 1797963954) GLU U QUAL (test code = 500 mg/dL Normal A 5249297627) BLOOD (test code = Negative Negative 2493180139) KETONES (test code = Negative Negative 9059620978) PROTEIN (test code = Negative Negative 2887-8) UROBILIN (test code = Normal Normal 8617591184) BILIRUBIN (test code = Negative Negative 0312079876) NITRITE (test code = Negative Negative 1926813063) LEUK MARCI (test code = Negative Negative 5334350830) RBC/HPF (test code = <1 See_Comment [Autom ated message] 4791496806) The system whic h generated this result transmit melissa reference range : 0 - 3 HPF. The refe rence range was not u sed to interpret th is result as normal/abnormal . WBC/HPF (test code = <1 See_Comment [Autom ated message] 5181459714) The system [employer] generated this result transmit melissa reference range : 0 - 5 HPF. The refe rence range was not u sed to interpret th is result as normal/abnormal . BACTERIA (test code = Negative Negative 5310245156) Lab Interpretation (test Abnormal code = 41270-5) [facility] NOW RAPID TESTING)2020-09-02 00:03:00 Test Item Value Reference Range Interpretation Comments SARS-CoV-2 Rapid ID NOW Not Detected Not Detected (test code = 37023-5) ALTAGRACIA (test code = ALTAGRACIA) ID NOW COVID-19 Assay is an isothermal nucleic acid amplification test intended for the qualitative detection of nucleic acid from SARS-CoV-2 viral RNA in nasopharyngeal (GALLERY OR MUSEUM CURATOR) specimens. It is used under Emergency Use [...] indicated. Lab Interpretation Normal (test code = 37118-2) [facility]-[id number] 23:44:00 Test Item Value Reference Interpretation Comments Range D-DIMER (test code = <0.27 See_Comment [Autom ated 9067416957) message] The system which generated this result [...] diagnosis. Lab Interpretation Normal (test code = 85286-5) [facility]rop[facility] [id number] 23:35:00 Test Item Value Reference Range Interpretation Comments TROPONIN I (test <0.012 See_Comment [Automated code = 0365914663) message] The system which generated this result [...] ? Lab Interpretation Normal (test code = 37336-7) [facility] [id number] 23:31:00 Test Item Value Reference Range Interpretation Comments NT-proBNP (test code 191 pg/mL See_Comment H [Autom ated = 9029058023) message] The system which generated this result transmitted reference range : <=125. The reference range was not used to interpret this result as normal/abnormal . ALTAGRACIA (test code = ALTAGRACIA) Biotin has been reported to cause a negative bias, interpret results relative to patient's use of biotin. Lab Interpretation Abnormal (test code = 66858-6) [facility] Metabolic Panel (NA, K, CL, CO2, GLUCOSE, BUN, CREATININE, CA)2020-09-01 23:23:00 Test Item Value Reference Range Interpretation Comments NA (test code = 134 mmol/L 135-145 L 0602093327) K (test code = 4.5 mmol/L 3.5-5 3877125609) CL (test code = 97 mmol/L 98-108 L 7499638745) CO2 TOTAL (test code = 28 mmol/L 23-31 1687472648) AGAP (test code = 2-16 9364596311) BUN (test code = 18 mg/dL 7-23 5727566508) GLUCOSE (test code = 198 mg/dL 70-110 H 7599165540) CREATININE (test code = 0.84 mg/dL 0.6-1.25 0334625520) CALCIUM (test code = 9.1 mg/dL 8.6-10.6 9003211397) eGFR Calculation mL/min/1.73m2 (Non-) (test code = 7676744294) eGFR Calculation mL/min/1.73m2 () (test code = 8545239665) ALTAGRACIA (test code = ALTAGRACIA) Association of [...] tests). Lab Interpretation Abnormal (test code = 55096-9) [facility] (ALB, T.PRO, BILI T, BU/BC, ALT, AST, ALK PHOS)2020-09-01 23:23:00 Test Item Value Reference Range Interpretation Comments TOTAL BILI (test code = 2993619827) 0.6 mg/dL 0.1-1.1 BILI UNCON (test code = 9463711475) 0.5 mg/dL 0.1-1.1 BILI CONJ (test code = 0267579397) 0.0 mg/dL 0-0.3 T PROTEIN (test code = 5600397812) 7.2 g/dL 6.3-8.2 ALBUMIN (test code = 7124528946) 4.5 g/dL 3.5-5 ALK PHOS (test code = 6563343270) 63 U/L 34-122 ALTv (test code = 1742-6) 38 U/L 5-50 AST(SGOT) (test code = 8615322884) 32 U/L 13-40 Lab Interpretation (test code = Normal 61988-7) [facility] HospitalProthrombin Time (PT) / [id number] 23:18:00 Test Item Value Reference Range Interpretation Comments PROTIME PATIENT (test See_Comment [Auto mated message] code = 5964-2) The system [employer] generated this result transmitted ref erence range: 12.0 - 1 4.7 Seconds. The re ference range was not u sed to interpret this result as normal/abnor mal. INR (test code = 6301-6) Nor mal INR <1.1; Warfarin Therap eutic range 2.0 to 3. 0 or 2.5 to 3.5, dep ending upon the indica tions. Lab Interpretation (test Normal code = 70850-6) [facility] with [id number] 23:12:00 Test Item Value Reference Range Interpretation Comments WBC (test code = See_Comment H [Automated 5490-2) message] The sy stem which generated this result transmitted reference range : 4.20 - 10.70 10*3/?L. The reference range was not used to interpret this result as normal/abnormal . RBC (test code = See_Comment [Automated 599-8) message] The sy stem which generated this [...] RDW-SD (test code = 41.4 fL 38.5-51.6 75106-4) RDW-CV (test code = 12.0 % 12.1-15.4 L 788-0) PLT (test code = See_Comment [Automated 777-3) message] The sy stem which generated this result transmitted reference range : 150 - 328 10*3/ ?L. The reference r cristin was not used to interpret this result as normal/abnormal . MPV (test code = 10.1 fL 9.8-13 19283-4) NRBC/100 WBC (test See_Comment [Automat ed code = 3708204771) message] The system which generated this result transmitted reference range : 0.0 - 10.0 /100 WBCs. The refer ence range was not u sed to interpret th is result as normal/abnormal . NRBC x10^3 (test code <0.01 See_Comment [Auto mated = 3931212014) message] The s Lot[employer] which generated this result transmitted reference range : 10*3/?L. The reference range was not used to interpret this result as normal/abnormal . GRAN MAT (NEUT) % 62.7 % (test code = 770-8) IMM GRAN % (test code 0.50 % = 4844546986) LYMPH % (test code = 23.5 % 736-9) MONO % (test code = 11.1 % 5905-5) EOS % (test code = 1.8 % 713-8) BASO % (test code = 0.4 % 706-2) GRAN MAT x10^3(ANC) 6.82 10*3/uL 1.99-6.95 (test code = 9389834204) IMM GRAN x10^3 (test 0.05 10*3/uL 0-0.06 code = 8722851014) LYMPH x10^3 (test code 2.55 10*3/uL 1.09-3.23 = 731-0) MONO x10^3 (test code 1.20 10*3/uL 0.36-1.02 H = 742-7) EOS x10^3 (test code = 0.19 10*3/uL 0.06-0.53 711-2) BASO x10^3 (test code 0.04 10*3/uL 0.01-0.09 = 704-7) Lab Interpretation Abnormal (test code = 60688-4) [facility] 1 [id number] 23:00:20Impression: No acute cardiopulmonary abnormality.Exam: XR CHEST 1 VW 09/01/2020 4:50 PM Clinical History: CP Comparison: Radiograph of 06/02/2020 Technique: frontal view of the chest Findings: The lungs are clear. ?No pleural effusion. ?No pneumothorax. The cardiac size is normal. No acute osseous abnormality. [facility], Radiant Results Inft User - 09/01/2020 5:01 PM CSTExam: XR CHEST 1 VW 09/01/2020 4:50 PMClinical History: CP Comparison: Radiograph of 06/02/2020Technique: frontal view of the chestFindings:The lungs are clear. No pleural effusion. No pneumothorax. The cardiac size is normal. No acute osseousabnormality.IMPRESSIONImpression: No acute cardiopulmonary abnormality.[facility] GLUCOSE (AUTOMATED)2020-06-03 17:12:00 Test Item Value Reference Range Interpretation Comments POCT GLU (test code = 2595258834) 204 mg/dL 70-110 H Lab Interpretation (test code = Abnormal 71275-8) [facility] GLUCOSE (AUTOMATED)2020-06-03 14:01:00 Test Item Value Reference Range Interpretation Comments POCT GLU (test code = 0681496248) 129 mg/dL 70-110 H Lab Interpretation (test code = Abnormal 30296-8) [facility]roponin [id number] 06:14:00 Test Item Value Reference Range Interpretation Comments TROPONIN I (test <0.012 See_Comment [Automated code = 3208016538) message] The system which generated this result [...] ? Lab Interpretation Normal (test code = 63733-8) [facility] (NA, K, CL, CO2, GLUCOSE, BUN, CREATININE, CA)2020-06-03 06:02:00 Test Item Value Reference Range Interpretation Comments NA (test code = 134 mmol/L 135-145 L 1592874477) K (test code = 4.0 mmol/L 3.5-5 6629623170) CL (test code = 102 mmol/L 98-108 0329916189) CO2 TOTAL (test code = 24 mmol/L 23-31 4365421605) AGAP (test code = 2-16 7426236790) BUN (test code = 21 mg/dL 7-23 1450374332) GLUCOSE (test code = 102 mg/dL 70-110 5516114609) CREATININE (test code = 0.85 mg/dL 0.6-1.25 2111240474) CALCIUM (test code = 9.1 mg/dL 8.6-10.6 7767846058) eGFR Calculation mL/min/1.73m2 (Non-) (test code = 1049234134) eGFR Calculation mL/min/1.73m2 () (test code = 2114727732) ALTAGRACIA (test code = ALTAGRACIA) Association of [...] tests). Lab Interpretation Abnormal (test code = 41245-7) [facility] with Buegulyfszdr0404-11-63 05:52:00 Test Item Value Reference Range Interpretation Comments WBC (test code = See_Comment [Automated 9790-2) message] The sy stem which generated this [...] (test code = 37.8 fL 38.5-51.6 L 56787-8) RDW-CV (test code = 11.4 % 12.1-15.4 L 788-0) PLT (test code = See_Comment [Automated 777-3) message] The sy stem which generated this result transmitted reference range : 150 - 328 10*3/ ?L. The reference r cristin was not used to interpret this result as normal/abnormal . MPV (test code = 9.9 fL 9.8-13 02943-7) NRBC/100 WBC (test See_Comment [Automat ed code = 4792521562) message] The system which generated this result transmitted reference range : 0.0 - 10.0 /100 WBCs. The refer ence range was not u sed to interpret th is result as normal/abnormal . NRBC x10^3 (test code <0.01 See_Comment [Auto mated = 1361364534) message] The s ystem which generated this result transmitted reference range : 10*3/?L. The reference range was not used to interpret this result as normal/abnormal . GRAN MAT (NEUT) % 42.4 % (test code = 770-8) IMM GRAN % (test code 0.60 % = 5194208632) LYMPH % (test code = 42.2 % 736-9) MONO % (test code = 12.6 % 5905-5) EOS % (test code = 1.7 % 713-8) BASO % (test code = 0.5 % 706-2) GRAN MAT x10^3(ANC) 3.59 10*3/uL 1.99-6.95 (test code = 7079599290) IMM GRAN x10^3 (test 0.05 10*3/uL 0-0.06 code = 5057925870) LYMPH x10^3 (test code 3.56 10*3/uL 1.09-3.23 H = 731-0) MONO x10^3 (test code 1.06 10*3/uL 0.36-1.02 H = 742-7) EOS x10^3 (test code = 0.14 10*3/uL 0.06-0.53 711-2) BASO x10^3 (test code 0.04 10*3/uL 0.01-0.09 = 704-7) Lab Interpretation Abnormal (test code = 59386-7) [facility] [id number] 23:55:00 Test Item Value Reference Range Interpretation Comments TROPONIN I (test <0.012 See_Comment [Automated code = 9462777117) message] The system which generated this result [...] ? Lab Interpretation Normal (test code = 23528-4) [facility] [id number] 23:28:00 Test Item Value Reference Range Interpretation Comments NT-proBNP (test code 195 pg/mL See_Comment H [Autom ated = 4224164074) message] The system which generated this result transmitted reference range : <=125. The reference range was not used to interpret this result as normal/abnormal . ALTAGRACIA (test code = ALTAGRACIA) Biotin has been reported to cause a negative bias, interpret results relative to patient's use of biotin. Lab Interpretation Abnormal (test code = 07608-8) [facility] HospitalThyroid Stimulating Hormone (TSH)2020-06-02 23:28:00 Test Item Value Reference Range Interpretation Comments TSH (test code = See_Comment Biotin has been 3973509328) reported to cau se a negative bias, interpret resul ts relative to pat ient's use of biotin. [Automated mess age] The system [employer] generated this result transmitted ref erence range: 0.45 - 4 .70 mIU/L. The refe rence range was not u sed to interpret this result as normal/abnor mal. Lab Interpretation (test Normal code = 58913-6) [facility] HospitalMagnesium [id number] 23:27:00 Test Item Value Reference Range Interpretation Comments MAGNESIUM (test code = 5210918705) 1.8 mg/dL 1.7-2.4 Lab Interpretation (test code = Normal 30126-1) [facility]AUT[facility]ATED)2020-06-02 21:55:00 Test Item Value Reference Range Interpretation Comments POCT GLU (test code = 8856974777) 128 mg/dL 70-110 H Lab Interpretation (test code = Abnormal 87332-3) [facility] HospitalLIPID PANEL (49674)(TOTAL CHOLESTEROL, TRIGLYCERIDES, HDL)2020-06-02 21:35:00 Test Item Value Reference Range Interpretation Comments CHOL (test code = 97 mg/dL 120-200 L 8964866909) HDL (test code = 25 mg/dL >40 L 6124958239) HDLC RATIO (test code = See_Comment [Au tomated message] 9474352728) The system [employer] generated this result transmit melissa reference range : <=5.0. The refe rence range was not u sed to interpret th is result as normal/abnormal . TRIG (test code = 203 mg/dL 30-170 H 8572170933) LDL CHOL (test code = 31 mg/dL See_Comment [Auto mated message] 25596-4) The system [employer] generated this result transmit melissa reference range : <=160. The refe rence range was not u sed to interpret th is result as normal/abnormal . VLDL (test code = 41 mg/dL 5-60 7932977330) Lab Interpretation (test Abnormal code = 77201-1) [facility] (ID NOW RAPID TESTING)2020-06-02 18:17:00 Test Item Value Reference Range Interpretation Comments SARS-CoV-2 Rapid ID NOW Not Detected Not Detected (test code = 61809-6) ALTAGRACIA (test code = ALTAGRACIA) ID NOW COVID-19 Assay is an isothermal nucleic acid amplification test intended for the qualitative detection of nucleic acid from SARS-CoV-2 viral RNA in nasopharyngeal (GALLERY OR MUSEUM CURATOR) specimens. It is used under Emergency Use [...] indicated. Lab Interpretation Normal (test code = 40863-3) [facility] HospitalXR [facility] 1 [id number] 17:48:27CHEST PORTABLE ONE VIEW HISTORY:CP TECHNIQUE: Frontal, portable projection of the chest is obtained.COMPARISON: 05/23/2020 FINDINGS: The lungs are clear. The heart size and mediastinal silhouetteare normal. No pleural effusion or pneumothorax is seen. CONCLUSIONS: No acute cardiopulmonary disease. [facility], Radiant Results Inft User - 06/02/2020 12:49 PM CDTCHEST PORTABLE ONE VIEWHISTORY:CPTECHNIQUE: Frontal, portable projection of the chest is obtained.COMPARISON: 05/23/2020FINDINGS: The lungs are clear. The heart size and mediastinal silhouetteare normal. No pleural effusion or pneumothorax is seen.CONCLUSIONS: No acute cardiopulmonary disease. [facility] HospitalTROPONIN [id number] 17:46:00 Test Item Value Reference Range Interpretation Comments TROPONIN I (test <0.012 See_Comment [Automated code = 5451378336) message] The system which generated this result [...] ? Lab Interpretation Normal (test code = 21320-0) [facility] HospitalaPTT2020-10-09 17:42:00 Test Item Value Reference Range Interpretation Comments APTT Patient (test See_Comment [Automat ed code = 3173-2) message] The system which generated this result transmitted reference range : 23 - 38 Seconds . The reference range was not used to interpr et this result as normal/abnormal . ALTAGRACIA (test code = ALTAGRACIA) The [facility] patient population mean normal value for aPTT is 30 seconds. Lab Interpretation Normal (test code = 78173-1) [facility] HospitalPROTHROMBIN TIME / [id number] 17:39:00 Test Item Value Reference Range Interpretation [...] tions. Lab Interpretation (test Normal code = 36181-0) [facility] HospitalCOMP. METABOLIC PANEL (67636)2020-06-02 17:35:00 Test Item Value Reference Range Interpretation Comments NA (test code = 135 mmol/L 135-145 8320917076) K (test code = 4.4 mmol/L 3.5-5 5169340592) CL (test code = 99 mmol/L 98-108 9004202555) CO2 TOTAL (test code = 23 mmol/L 23-31 1813507500) AGAP (test code = 2-16 0513455012) BUN (test code = 22 mg/dL 7-23 7929933267) GLUCOSE (test code = 192 mg/dL 70-110 H 3099677374) CREATININE (test code = 0.90 mg/dL 0.6-1.25 5080060823) TOTAL BILI (test code = 0.8 mg/dL 0.1-1.7 0803569471) CALCIUM (test code = 9.8 mg/dL 8.6-10.6 7875662978) T PROTEIN (test code = 7.2 g/dL 6.3-8.2 5037413389) ALBUMIN (test code = 4.2 g/dL 3.5-5 8746112405) ALK PHOS (test code = 76 U/L 34-122 2239382184) ALTv (test code = 27 U/L 5-50 1742-6) AST(SGOT) (test code = 25 U/L 13-40 9719406216) eGFR Calculation mL/min/1.73m2 (Non-) (test code = 7668150812) eGFR Calculation mL/min/1.73m2 () (test code = 8732285355) ALTAGRACIA (test code = ALTAGRACIA) Association of [...] tests). Lab Interpretation Abnormal (test code = 00986-2) [facility] HospitalLIPASE, [id number] 17:35:00 Test Item Value Reference Range Interpretation Comments LIPASE (test code = 5346538365) 133 U/L 0-220 Lab Interpretation (test code = Normal 46672-6) [facility] HospitalCB WITH [id number] 17:11:00 Test Item Value Reference Range Interpretation [...] (test code = 36.9 fL 38.5-51.6 L 26700-6) RDW-CV (test code = 11.5 % 12.1-15.4 L 788-0) PLT (test code = See_Comment [Automated 777-3) message] The sy stem which generated this result transmitted reference range : 150 - 328 10*3/ ?L. The reference r cristin was not used to interpret this result as normal/abnormal . MPV (test code = 10.0 fL 9.8-13 37357-0) NRBC/100 WBC (test See_Comment [Automat ed code = 9107167540) message] The system which generated this result transmitted reference range : 0.0 - 10.0 /100 WBCs. The refer ence range was not u sed to interpret th is result as normal/abnormal . NRBC x10^3 (test code <0.01 See_Comment [Auto mated = 4051768715) message] The s ystem which generated this result transmitted reference range : 10*3/?L. The reference range was not used to interpret this result as normal/abnormal . GRAN MAT (NEUT) % 67.3 % (test code = 770-8) IMM GRAN % (test code 0.50 % = 4926466522) LYMPH % (test code = 22.0 % 736-9) MONO % (test code = 8.8 % 5905-5) EOS % (test code = 1.0 % 713-8) BASO % (test code = 0.4 % 706-2) GRAN MAT x10^3(ANC) 6.71 10*3/uL 1.99-6.95 (test code = 0732255458) IMM GRAN x10^3 (test 0.05 10*3/uL 0-0.06 code = 1139996737) LYMPH x10^3 (test code 2.19 10*3/uL 1.09-3.23 = 731-0) MONO x10^3 (test code 0.88 10*3/uL 0.36-1.02 = 742-7) EOS x10^3 (test code = 0.10 10*3/uL 0.06-0.53 711-2) BASO x10^3 (test code 0.04 10*3/uL 0.01-0.09 = 704-7) Lab Interpretation Abnormal (test code = 50981-8) [facility] GLUCOSE (AUTOMATED)2020-05-28 18:35:00 Test Item Value Reference Range Interpretation Comments POCT GLU (test code = 7000576285) 156 mg/dL 70-110 H Lab Interpretation (test code = Abnormal 05257-7) [facility] GLUCOSE (AUTOMATED)2020-05-28 14:09:00 Test Item Value Reference Range Interpretation Comments POCT GLU (test code = 3126908434) 159 mg/dL 70-110 H Lab Interpretation (test code = Abnormal 20999-9) [facility] HospitalTROPONIN [id number] 09:53:00 Test Item Value Reference Range Interpretation Comments TROPONIN I (test 0.089 ng/mL See_Comment H [Automated code = 3043301600) message] The system which generated this result [...] ? Lab Interpretation Abnormal (test code = 46324-9) [facility] HospitalCK (CREATINE KINASE) + [id number] 09:53:00 Test Item Value Reference Range Interpretation Comments CK (test code = 52 U/L 33-194 0870048420) CK-MB (test code = 0.27 ng/mL See_Comment [Automat ed 7274538067) message] The system which generated this result transmitted reference range : <=3.50. The reference range was not used to interpret this result as normal/abnormal . CKMB INDEX (test code 0.5 % 0-2.5 = 0900196453) ALTAGRACIA (test code = ALTAGRACIA) Biotin has been reported to cause a negative bias, interpret results relative to patient's use of biotin. Lab Interpretation Normal (test code = 36737-0) [facility] HospitalBASI METABOLIC PANEL (NA, K, CL, CO2, GLUCOSE, BUN, CREATININE, CA)2020-05-28 09:43:00 Test Item Value Reference Range Interpretation Comments NA (test code = 134 mmol/L 135-145 L 2119754123) K (test code = 4.1 mmol/L 3.5-5 9562218416) CL (test code = 101 mmol/L 98-108 4980004531) CO2 TOTAL (test code = 26 mmol/L 23-31 1059587497) AGAP (test code = 2-16 7305233005) BUN (test code = 18 mg/dL 7-23 0912152832) GLUCOSE (test code = 151 mg/dL 70-110 H 2694224142) CREATININE (test code = 0.78 mg/dL 0.6-1.25 8324825982) CALCIUM (test code = 8.8 mg/dL 8.6-10.6 4283570075) eGFR Calculation mL/min/1.73m2 (Non-) (test code = 7888315870) eGFR Calculation mL/min/1.73m2 () (test code = 4757126566) ALTAGRACIA (test code = ALTAGRACIA) Association of [...] tests). Lab Interpretation Abnormal (test code = 03606-2) [facility]MAGNESIUM2020-10-04 09:43:00 Test Item Value Reference Range Interpretation Comments MAGNESIUM (test code = 5226704448) 1.9 mg/dL 1.7-2.4 Lab Interpretation (test code = Normal 71628-1) [facility] HospitalCBC WITHOUT [id number] 09:24:00 Test Item Value Reference Range Interpretation Comments WBC (test code = 6690-2) See_Comment [A utomated message] The system [employer] generated this result transmit melissa reference range : 4.20 - 10.70 10*3/?L. The reference range was not used to interpret this result as normal/abnormal . RBC (test code = 789-8) See_Comment [Au tomated message] The system [employer] generated this result transmit melissa reference range [...] 777-3) See_Comment [Au tomated message] The system [employer] generated this result transmit melissa reference range : 150 - 328 10*3/?L. The reference range was not used to interpret this result as normal/abnormal . MPV (test code = 10.2 fL 9.8-13 57868-8) RDW-CV (test code = 11.9 % 12.1-15.4 L 788-0) RDW-SD (test code = 39.8 fL 38.5-51.6 27973-6) NRBC x10^3 (test code = <0.01 See_Comment [Au tomated message] 8300602092) The system [employer] h generated this result transmit melissa reference range : 10*3/?L. The reference range was not used to interpret this result as normal/abnormal . NRBC/100 WBC (test code See_Comment [Au tomated message] = 4795318684) The system [employer] ch generated this result transmit melissa reference range : 0.0 - 10.0 /100 WBC s. The reference r cristin was not used to interpret this result as normal/abnormal . IPF % (test code = 0186321767) Lab Interpretation (test Abnormal code = 52336-8) [facility] METABOLIC PANEL (NA, K, CL, CO2, GLUCOSE, BUN, CREATININE, CA)2020-05-28 05:21:00 Test Item Value Reference Range Interpretation Comments NA (test code = 134 mmol/L 135-145 L 2908721232) K (test code = 3.9 mmol/L 3.5-5 2612917798) CL (test code = 103 mmol/L 98-108 7710511623) CO2 TOTAL (test code = 22 mmol/L 23-31 L 2026747113) AGAP (test code = 2-16 1767841216) BUN (test code = 17 mg/dL 7-23 4754037110) GLUCOSE (test code = 149 mg/dL 70-110 H 5130017432) CREATININE (test code = 0.76 mg/dL 0.6-1.25 5293257369) CALCIUM (test code = 8.4 mg/dL 8.6-10.6 L 7454764924) eGFR Calculation mL/min/1.73m2 (Non-) (test code = 5444849870) eGFR Calculation mL/min/1.73m2 () (test code = 6692125475) ALTAGRACIA (test code = ALTAGRACIA) Association of [...] tests). Lab Interpretation Abnormal (test code = 21852-8) [facility]IUM2020-10-04 05:21:00 Test Item Value Reference Range Interpretation Comments MAGNESIUM (test code = 9004159470) 1.9 mg/dL 1.7-2.4 Lab Interpretation (test code = Normal 22423-4) [facility] (CREATINE [facility]INASE) + [id number] 04:20:00 Test Item Value Reference Range Interpretation Comments CK (test code = 57 U/L 33-194 6169784170) CK-MB (test code = 0.39 ng/mL See_Comment [Automat ed 4811554692) message] The system which generated this result transmitted reference range : <=3.50. The reference range was not used to interpret this result as normal/abnormal . CKMB INDEX (test code 0.7 % 0-2.5 = 0728479095) ALTAGRACIA (test code = ALTAGRACIA) Biotin has been reported to cause a negative bias, interpret results relative to patient's use of biotin. Lab Interpretation Normal (test code = 66270-0) [id number]58[facility]00 Test Item Value Reference Range Interpretation Comments TROPONIN I (test 0.087 ng/mL See_Comment H [Automated code = 2154785657) message] The system which generated this result [...] ? Lab Interpretation Abnormal (test code = 03560-6) [facility]2020-05-28 02:44:00 Test Item Value Reference Range Interpretation Comments POCT GLU (test code = 4151751387) 152 mg/dL 70-110 H Lab Interpretation (test code = Abnormal 02862-5) [facility]2020-05-27 23:08:00 Test Item Value Reference Range Interpretation Comments POCT GLU (test code = 7466425447) 159 mg/dL 70-110 H Lab Interpretation (test code = Abnormal 53164-3) [facility]SE (AUTOMATED)2020-05-27 16:48:00 Test Item Value Reference Range Interpretation Comments POCT GLU (test code = 0120885224) 146 mg/dL 70-110 H Lab Interpretation (test code = Abnormal 41841-3) [facility]SE (AUTOMATED)2020-05-27 12:42:00 Test Item Value Reference Range Interpretation Comments POCT GLU (test code = 5150196229) 196 mg/dL 70-110 H Lab Interpretation (test code = Abnormal 82424-7) [facility] till PTT < 45 sec 2020-05-27 08:43:00 Test Item Value Reference Range Interpretation Comments APTT Patient (test code = See_Comment [ Automated message] 3173-2) The system [employer] generated this result transmitted ref erence range: 26 - 36 Seconds. The re ference range was not u sed to interpret this result as normal/abnor mal. Lab Interpretation (test Normal code = 32781-9) [facility] METABOLIC PANEL (NA, K, CL, CO2, GLUCOSE, BUN, CREATININE, CA)2020-05-27 07:01:00 Test Item Value Reference Range Interpretation Comments NA (test code = 132 mmol/L 135-145 L 1442486270) K (test code = 4.2 mmol/L 3.5-5 7058602670) CL (test code = 98 mmol/L 98-108 3637811925) CO2 TOTAL (test code = 29 mmol/L 23-31 3604864636) AGAP (test code = 2-16 7624792990) BUN (test code = 15 mg/dL 7-23 3288928777) GLUCOSE (test code = 174 mg/dL 70-110 H 0906784135) CREATININE (test code = 0.83 mg/dL 0.6-1.25 2909502953) CALCIUM (test code = 8.6 mg/dL 8.6-10.6 1896259158) eGFR Calculation mL/min/1.73m2 (Non-) (test code = 3724583647) eGFR Calculation mL/min/1.73m2 () (test code = 9148589682) ALTAGRACIA (test code = ALTAGRACIA) Association of [...] tests). Lab Interpretation Abnormal (test code = 31009-1) [facility]2020-10-03 07:01:00 Test Item Value Reference Range Interpretation Comments MAGNESIUM (test code = 0247351222) 2.1 mg/dL 1.7-2.4 Lab Interpretation (test code = Normal 06850-4) [facility] Keep checking till PTT < 45 sec 2020-05-27 06:44:00 Test Item Value Reference Range Interpretation Comments APTT Patient (test code >150 See_Comment HH [Au tomated message] = 3173-2) The system [employer] generated this result transmitted ref erence range: 26 - 36 Seconds. The reference range was not used to int erpret this result as normal/abnormal . Lab Interpretation (test Abnormal code = 78220-3) [facility] Test Item Value Reference Range Interpretation Comments APTT Patient (test code See_Comment H [Au tomated message] = 3173-2) The system [employer] generated this result transmitted ref erence range: 26 - 36 Seconds. The reference range was not used to int erpret this result as normal/abnormal . Lab Interpretation (test Abnormal code = 43510-3) [facility] Keep checking till PTT < 45 sec 2020-05-27 02:48:00 Test Item Value Reference Range Interpretation Comments APTT Patient (test code >150 See_Comment HH [Au tomated message] = 3173-2) The system [employer] generated this result transmitted ref erence range: 26 - 36 Seconds. The reference range was not used to int erpret this result as normal/abnormal . Lab Interpretation (test Abnormal code = 25738-7) [facility]SE (AUTOMATED[facility]2020-05-27 01:56:00 Test Item Value Reference Range Interpretation Comments POCT GLU (test code = 9425693235) 148 mg/dL 70-110 H Lab Interpretation (test code = Abnormal 83379-6) [facility] ACT LOW [id number] 23:50:00 Test Item Value Reference Range Interpretation Comments ACTLR (test code = See_Comment H [Automat ed message] 8893902420) The system [employer] generated this result transmitted ref erence range: 89 - 169 Seconds. The reference range was not used to int erpret this result as normal/abnormal . Lab Interpretation (test Abnormal code = 47039-3) [facility] ACT LOW [id number] 23:41:00 Test Item Value Reference Range Interpretation Comments ACTLR (test code = See_Comment H [Automat ed message] 0724792456) The system [employer] generated this result transmitted ref erence range: 89 - 169 Seconds. The reference range was not used to int erpret this result as normal/abnormal . Lab Interpretation (test Abnormal code = 57440-2) [facility] ACT LOW [id number] 23:07:00 Test Item Value Reference Range Interpretation Comments ACTLR (test code = See_Comment H [Automat ed message] 8721998883) The system [employer] generated this result transmitted ref erence range: 89 - 169 Seconds. The reference range was not used to int erpret this result as normal/abnormal . Lab Interpretation (test Abnormal code = 14118-6) [facility] ACT LOW [id number] 22:31:00 Test Item Value Reference Range Interpretation Comments ACTLR (test code = See_Comment H [Automat ed message] 5654930310) The system [employer] generated this result transmitted ref erence range: 89 - 169 Seconds. The reference range was not used to int erpret this result as normal/abnormal . Lab Interpretation (test Abnormal code = 17276-6) [facility]SE (AUTOMATED)2020-05-26 21:20:00 Test Item Value Reference Range Interpretation Comments POCT GLU (test code = 7178789493) 135 mg/dL 70-110 H Lab Interpretation (test code = Abnormal 85509-5) [facility]SE (AUTOMATED)2020-05-26 16:50:00 Test Item Value Reference Range Interpretation Comments POCT GLU (test code = 5051873678) 172 mg/dL 70-110 H Lab Interpretation (test code = Abnormal 70677-6) [facility] (for use with Heparin Practice Guideline). Note: Draw and Send all Lab STAT.2020-05-26 16:38:00 Test Item Value Reference Range Interpretation Comments APTT Patient (test code See_Comment H [Au tomated message] = 3173-2) The system [employer] generated this result transmitted ref erence range: 26 - 36 Seconds. The reference range was not used to int erpret this result as normal/abnormal . Lab Interpretation (test Abnormal code = 36334-1) [facility] (for use with Heparin Practice Guideline). Note: Draw and Send all Lab STAT.2020-05-26 08:52:00 Test Item Value Reference Range Interpretation Comments APTT Patient (test code >150 See_Comment HH [Au tomated message] = 3173-2) The system [employer] generated this result transmitted ref erence range: 26 - 36 Seconds. The reference range was not used to int erpret this result as normal/abnormal . Lab Interpretation (test Abnormal code = 71197-0) [facility] METABOLIC PANEL (NA, K, CL, CO2, GLUCOSE, BUN, CREATININE, CA)2020-05-26 08:45:00 Test Item Value Reference Range Interpretation Comments NA (test code = 134 mmol/L 135-145 L 7221259022) K (test code = 4.0 mmol/L 3.5-5 4510641377) CL (test code = 102 mmol/L 98-108 5998471749) CO2 TOTAL (test code = 28 mmol/L 23-31 4477062229) AGAP (test code = 2-16 4280484132) BUN (test code = 17 mg/dL 7-23 6310460392) GLUCOSE (test code = 131 mg/dL 70-110 H 7267117131) CREATININE (test code = 0.74 mg/dL 0.6-1.25 6150374318) CALCIUM (test code = 8.1 mg/dL 8.6-10.6 L 4914277627) eGFR Calculation mL/min/1.73m2 (Non-) (test code = 0162432042) eGFR Calculation mL/min/1.73m2 () (test code = 0135597589) ALTAGRACIA (test code = ALTAGRACIA) Association of [...] tests). Lab Interpretation Abnormal (test code = 11717-6) [facility] Test Item Value Reference Range Interpretation Comments MAGNESIUM (test code = 7155276710) 1.9 mg/dL 1.7-2.4 Lab Interpretation (test code = Normal 27244-2) [facility]SE (AUTOMATED)2020-05-26 01:46:00 Test Item Value Reference Range Interpretation Comments POCT GLU (test code = 5794868981) 138 mg/dL 70-110 H Lab Interpretation (test code = Abnormal 13210-9) [facility] (for use with Heparin Practice Guideline). Note: Draw and Send all Lab STAT.2020-05-26 00:24:00 Test Item Value Reference Range Interpretation Comments APTT Patient (test code >150 See_Comment HH [Au tomated message] = 2568-2) The system [employer] generated this result transmitted ref erence range: 26 - 36 Seconds. The reference range was not used to int erpret this result as normal/abnormal . Lab Interpretation (test Abnormal code = 00235-0) [facility] by PCR, [id number] 21:25:00 Test Item Value Reference Range Interpretation Comments MSSA Screen by PCR, Positive Negative A Nares (test code = 12091-7) MRSA/MSSA Positive? Yes No A (test code = 0994143609) ALTAGRACIA (test code = ALTAGRACIA) A positive test result does not necessarily indicate the presence of viable organism. Lab Interpretation (test Abnormal code = 15973-8) [facility] GLUCOSE (AUTOMATED)2020-05-25 21:15:00 Test Item Value Reference Range Interpretation Comments POCT GLU (test code = 4371529931) 177 mg/dL 70-110 H Lab Interpretation (test code = Abnormal 88660-7) [facility] GLUCOSE (AUTOMATED)2020-05-25 16:54:00 Test Item Value Reference Range Interpretation Comments POCT GLU (test code = 8404550755) 175 mg/dL 70-110 H Lab Interpretation (test code = Abnormal 04348-4) [facility] (for use with Heparin Practice Guideline). Note: Draw and Send all Lab STAT.2020-05-25 15:53:00 Test Item Value Reference Range Interpretation Comments APTT Patient (test code = See_Comment [ Automated message] 8113-2) The system [employer] generated this result transmitted ref erence range: 26 - 36 Seconds. The re ference range was not u sed to interpret this result as normal/abnor mal. Lab Interpretation (test Normal code = 29522-5) [facility] / [id number] 14:29:00 Test Item Value Reference Range Interpretation [...] tions. Lab Interpretation (test Normal code = 41047-4) [facility]2020-05-25 12:57:00 Test Item Value Reference Range Interpretation Comments POCT GLU (test code = 2914327686) 140 mg/dL 70-110 H Lab Interpretation (test code = Abnormal 32884-6) [facility] (for use with Heparin Practice Guideline). Note: Draw and Send all Lab STAT.2020-05-25 12:26:00 Test Item Value Reference Range Interpretation Comments APTT Patient (test code See_Comment H [Au tomated message] = 3173-2) The system [employer] h generated this result transmitted ref erence range: 26 - 36 Seconds. The reference range was not used to int erpret this result as normal/abnormal . Lab Interpretation (test Abnormal code = 63532-2) [facility] [id number] 12:19:00 Test Item Value Reference Range Interpretation Comments TROPONIN I (test 0.012 ng/mL See_Comment [Automated code = 0218667091) message] The system which generated this result [...] ? Lab Interpretation Normal (test code = 35836-7) [facility] (NA, K, CL, CO2, GLUCOSE, BUN, CREATININE, CA)2020-05-25 10:23:00 Test Item Value Reference Range Interpretation Comments NA (test code = 135 mmol/L 135-145 2224999204) K (test code = 4.5 mmol/L 3.5-5 6493135810) CL (test code = 99 mmol/L 98-108 2844890462) CO2 TOTAL (test code = 28 mmol/L 23-31 6920478402) AGAP (test code = 2-16 2238503692) BUN (test code = 20 mg/dL 7-23 0565317703) GLUCOSE (test code = 174 mg/dL 70-110 H 1170452397) CREATININE (test code = 0.94 mg/dL 0.6-1.25 4144878647) CALCIUM (test code = 8.5 mg/dL 8.6-10.6 L 7141411850) eGFR Calculation mL/min/1.73m2 (Non-) (test code = 8118837557) eGFR Calculation mL/min/1.73m2 () (test code = 8967112861) ALTAGRACIA (test code = ALTAGRACIA) Association of [...] tests). Lab Interpretation Abnormal (test code = 23876-1) [facility]2020-[facility] 10:23:00 Test Item Value Reference Range Interpretation Comments MAGNESIUM (test code = 3640801039) 2.0 mg/dL 1.7-2.4 Lab Interpretation (test code = Normal 60556-1) [facility]SE (AUTOMATED)2020-05-25 09:41:00 Test Item Value Reference Range Interpretation Comments POCT GLU (test code = 6237208053) 318 mg/dL 70-110 H Lab Interpretation (test code = Abnormal 94122-9) [facility] (for use with Heparin Practice Guideline). Note: Draw and Send all Lab STAT.2020-05-25 06:09:00 Test Item Value Reference Range Interpretation Comments APTT Patient (test code See_Comment H [Au tomated message] = 3173-2) The system [employer] generated this result transmitted ref erence range: 26 - 36 Seconds. The reference range was not used to int erpret this result as normal/abnormal . Lab Interpretation (test Abnormal code = 55684-3) [facility] GLUCOSE (AUTOMATED)2020-05-25 05:28:00 Test Item Value Reference Range Interpretation Comments POCT GLU (test code = 1419272492) 210 mg/dL 70-110 H Lab Interpretation (test code = Abnormal 81314-1) [facility]UCOSE (AUTOMATED)2020-05-24 23:42:00 Test Item Value Reference Range Interpretation Comments POCT GLU (test code = 9002557955) 200 mg/dL 70-110 H Lab Interpretation (test code = Abnormal 69026-5) [facility]LOW-DENSITY LIPOPROTEIN, [id number] 22:50:00 Test Item Value Reference Range Interpretation Comments dLDL Chol (test code = 39432-6) 125 mg/dL <130 Lab Interpretation (test code = Normal 51145-9) [facility] 22:16:00 Test Item Value Reference Range Interpretation Comments APTT Patient (test See_Comment [Automat ed code = 3173-2) message] The system which generated this result transmitted reference range : 23 - 38 Seconds . The reference range was not used to interpr et this result as normal/abnormal . ALTAGRACIA (test code = ALTAGRACIA) The [facility] patient population mean normal value for aPTT is 30 seconds. Lab Interpretation Normal (test code = 64275-7) [facility] HospitalLIPID PANEL (21804)(TOTAL CHOLESTEROL, TRIGLYCERIDES, HDL)2020-05-24 20:03:00 Test Item Value Reference Range Interpretation Comments CHOL (test code = 220 mg/dL 120-200 H 7894948379) HDL (test code = 39 mg/dL >40 L 3865219280) HDLC RATIO (test code = See_Comment H [Au tomated message] 2303095473) The system [employer] h generated this result transmitted ref erence range: <=5.0. T he reference range was not used to int erpret this result as normal/abnormal . TRIG (test code = 587 mg/dL 30-170 H 0949612088) LDL CHOL (test code = Unable to calculate 35327-2) LDL due to elev ated triglyceride le ankur greater than 40 0 mg/dL. VLDL (test code = 117 mg/dL 5-60 H 4246923332) Lab Interpretation Abnormal (test code = 23664-8) [facility]SE (AUTOMATED[facility]2020-05-24 17:05:00 Test Item Value Reference Range Interpretation Comments POCT GLU (test code = 7955164025) 193 mg/dL 70-110 H Lab Interpretation (test code = Abnormal 95079-8) [facility] 15:28:00 Test Item Value Reference Range Interpretation Comments APTT Patient (test See_Comment [Automat ed code = 3173-2) message] The system which generated this result transmitted reference range : 23 - 38 Seconds . The reference range was not used to interpr et this result as normal/abnormal . ALTAGRACIA (test code = ALTAGRACIA) The [facility] patient population mean normal value for aPTT is 30 seconds. Lab Interpretation Normal (test code = 06210-4) [facility]2020-05-24 13:08:00 Test Item Value Reference Range Interpretation Comments POCT GLU (test code = 8470583650) 183 mg/dL 70-110 H Lab Interpretation (test code = Abnormal 52648-6) [facility] [id number] 03:09:00 Test Item Value Reference Range Interpretation Comments TROPONIN I (test 0.005 ng/mL See_Comment [Automated code = 1029044135) message] The system which generated this result [...] ? Lab Interpretation Normal (test code = 61578-7) [facility]2020-05-24 01:25:00 Test Item Value Reference Range Interpretation Comments POCT GLU (test code = 9807980542) 123 mg/dL 70-110 H Lab Interpretation (test code = Abnormal 17559-9) [facility] [id number] 23:58:00 Test Item Value Reference Range Interpretation Comments TROPONIN I (test 0.003 ng/mL See_Comment [Automated code = 8380893968) message] The system which generated this result [...] ? Lab Interpretation Normal (test code = 31766-0) [facility]GLYCOSYLATED HEMOGLOBIN (A1C)2020-05-23 22:19:00 Test Item Value Reference Range Interpretation Comments HGB A1C (test code = 9.7 % 4-6 H 4548-4) ALTAGRACIA (test code = ALTAGRACIA) %A1C (NGSP) Interpretation (ADA)4.8-5.6 ? ? Normal or (Non-Diabetic Range)5.7-6.4 ? ? Increased Risk (Pre-Diabetic)>6.5 ?Diabetes Indicated Lab Interpretation Abnormal (test code = 31074-0) [facility]MON[facility] [id number] 21:17:56HISTORY: Shortness of breath, rule out P.E. [...] acute pulmonary thromboembolism.2. Triple vessel coronary atherosclerosis. [facility], Radiant Results Inft User - 05/23/2020 4:19 PM CDTHISTORY: Shortness of breath, rule out P.E.TECHNIQUE: Contrast-enhanced 63- mutidetector CT scan of the chest wascompleted with intravenous injection of Omnipaque-350 nonionic contrastmedium. Subsequently numerous sagittal, coronal and MIP reformations weregenerated.FINDINGS: Comparison is made with a recent CT scan of the chest date10/31/2019.Small portions of the thyroid gland included showed no abnormality. Tracheaand central bronchial airways appear normal.No acutepulmonary thromboembolism detected. Lungs are free of acuteinfiltrates. No pulmonary nodules seen. No pleural or pericardial effusion,pneumothorax or pneumomediastinum. No aortic aneurysm or dissection.Slightly prominent lymph nodes are seen in both right and left south,unchanged when compared with the previous study.Main pulmonary artery is measuring 3 cm today. Atherosclerosis is notedwith calcifications in LAD coronary artery, its branches, right coronary aswell as LCx coronary arteries.Degenerative changes noted with a rather large osteophytes along theventral vertebral margins at lower thoracic levels.CONCLUSIONS:1. No acute pulmonary thromboembolism.2. Triple vessel coronary atherosclerosis.[facility]inalysis2020-[facility] 21:01:00 Test Item Value Reference Range Interpretation Comments APPEARANCE (test code = Clear Clear 7680632365) COLOR (test code = Straw Yellow A 5969026680) PH (test code = 4.8-8.0 3635631295) SP GRAVITY (test code = 1.003-1.030 3703209340) GLU U QUAL (test code = 500 mg/dL Normal A 1510153893) BLOOD (test code = Negative Negative 9424984640) KETONES (test code = Negative Negative 5353351573) PROTEIN (test code = Negative Negative 2887-8) UROBILIN (test code = Normal Normal 4194731083) BILIRUBIN (test code = Negative Negative 9018259610) NITRITE (test code = Negative Negative 5602996105) LEUK MARCI (test code = Negative Negative 2385573158) RBC/HPF (test code = <1 See_Comment [Autom ated message] 8749850922) The system [employer] generated this result transmit melissa reference range : 0 - 3 HPF. The refe rence range was not u sed to interpret th is result as normal/abnormal . WBC/HPF (test code = <1 See_Comment [Autom ated message] 2897717954) The system [employer] generated this result transmit melissa reference range : 0 - 5 HPF. The refe rence range was not u sed to interpret th is result as normal/abnormal . BACTERIA (test code = Negative Negative 6687299749) HYAL CAST (test code = See_Comment [Aut omated message] 5757004463) The system [employer] generated this result transmit melissa reference range : <=2 LPF. The refere nce range was not u sed to interpret th is result as normal/abnormal . Lab Interpretation (test Abnormal code = 33019-8) [facility] HospitalCB with [id number] 20:49:00 Test Item Value Reference Range Interpretation [...] RDW-SD (test code = 39.4 fL 38.5-51.6 84328-5) RDW-CV (test code = 11.9 % 12.1-15.4 L 788-0) PLT (test code = See_Comment [Automated 777-3) message] The sy stem which generated this result transmitted reference range : 150 - 328 10*3/ ?L. The reference r cristin was not used to interpret this result as normal/abnormal . MPV (test code = 11.2 fL 9.8-13 59800-6) NRBC/100 WBC (test See_Comment [Automat ed code = 0014096878) message] The system which generated this result transmitted reference range : 0.0 - 10.0 /100 WBCs. The refer ence range was not u sed to interpret th is result as normal/abnormal . NRBC x10^3 (test code <0.01 See_Comment [Auto mated = 2255742892) message] The s ystem which generated this result transmitted reference range : 10*3/?L. The reference range was not used to interpret this result as normal/abnormal . GRAN MAT (NEUT) % 61.9 % (test code = 770-8) IMM GRAN % (test code 0.50 % = 4846263764) LYMPH % (test code = 27.4 % 736-9) MONO % (test code = 8.7 % 5905-5) EOS % (test code = 1.2 % 713-8) BASO % (test code = 0.3 % 706-2) GRAN MAT x10^3(ANC) 6.11 10*3/uL 1.99-6.95 (test code = 8334259880) IMM GRAN x10^3 (test 0.05 10*3/uL 0-0.06 code = 2661770400) LYMPH x10^3 (test code 2.71 10*3/uL 1.09-3.23 = 731-0) MONO x10^3 (test code 0.86 10*3/uL 0.36-1.02 = 742-7) EOS x10^3 (test code = 0.12 10*3/uL 0.06-0.53 711-2) BASO x10^3 (test code 0.03 10*3/uL 0.01-0.09 = 704-7) Lab Interpretation Abnormal (test code = 23436-4) [facility] (ALB, T.PRO, BILI T, BU/BC, ALT, AST, ALK PHOS)2020-05-23 20:42:00 Test Item Value Reference Range Interpretation Comments TOTAL BILI (test code = 1215386352) 0.4 mg/dL 0.1-1.1 BILI UNCON (test code = 8026577736) 0.6 mg/dL 0.1-1.1 BILI CONJ (test code = 3209284398) 0.0 mg/dL 0-0.3 T PROTEIN (test code = 3647265556) 7.2 g/dL 6.3-8.2 ALBUMIN (test code = 5893200142) 4.2 g/dL 3.5-5 ALK PHOS (test code = 5655205521) 83 U/L 34-122 ALTv (test code = 1742-6) 31 U/L 5-50 AST(SGOT) (test code = 1179800524) 27 U/L 13-40 Lab Interpretation (test code = Normal 44984-5) [facility] HospitalTroponin [id number] 20:34:00 Test Item Value Reference Range Interpretation Comments TROPONIN I (test 0.003 ng/mL See_Comment [Automated code = 2972196133) message] The system which generated this result [...] ? Lab Interpretation Normal (test code = 84593-5) [facility]MINAL [id number] 20:31:00 Test Item Value Reference Range Interpretation Comments NT-proBNP (test code 407 pg/mL See_Comment H [Autom ated = 2181169255) message] The system which generated this result transmitted reference range : <=125. The reference range was not used to interpret this result as normal/abnormal . ALTAGRACIA (test code = ALTAGRACIA) Biotin has been reported to cause a negative bias, interpret results relative to patient's use of biotin. Lab Interpretation Abnormal (test code = 06519-6) [facility] (NA, K, CL, CO2, GLUCOSE, BUN, CREATININE, CA)2020-05-23 20:23:00 Test Item Value Reference Range Interpretation Comments NA (test code = 133 mmol/L 135-145 L 6025587617) K (test code = 4.8 mmol/L 3.5-5 8013929985) CL (test code = 98 mmol/L 98-108 3263088650) CO2 TOTAL (test code = 24 mmol/L 23-31 0286774136) AGAP (test code = 2-16 0689883841) BUN (test code = 19 mg/dL 7-23 8898251175) GLUCOSE (test code = 311 mg/dL 70-110 H 5442756100) CREATININE (test code = 0.72 mg/dL 0.6-1.25 1177860079) CALCIUM (test code = 9.5 mg/dL 8.6-10.6 0659987039) eGFR Calculation mL/min/1.73m2 (Non-) (test code = 0542970792) eGFR Calculation mL/min/1.73m2 () (test code = 9848318511) ALTAGRACIA (test code = ALTAGRACIA) Association of [...] tests). Lab Interpretation Abnormal (test code = 41955-1) [facility] 1 [id number] 20:15:09HISTORY: SOB. TECHNIQUE: Portable AP erect view of the chest is obtained. Comparison madewith 05/15/2019 study. FINDINGS: No acute pneumonia. No pneumothorax or pleural effusion orpulmonary congestion detected. Cardiac size is within normal limits.Central pulmonary arteries are slightly dilated withoutfrank acuteinterstitial pulmonary edema. CONCLUSIONS: No signs of acute cardiopulmonary disease.[facility], Radiant Results Inft User - 05/23/2020 3:16 PM CDTHISTORY: SOB.TECHNIQUE: Portable AP erect view ofthe chest is obtained. Comparison madewith 05/15/2019 study.FINDINGS: No acute pneumonia. No pneumotho rax or pleural effusion orpulmonary congestion detected. Cardiac size is within normal limits.Central pulmonary arteries are slightly dilated without amilcar acuteinterstitial pulmonary edema.CONCLUSIONS: No signs of acute cardiopulmonary disease.[facility] NOW [facility]APID TESTING) 2020-05-23 20:14:00 Test Item Value Reference Range Interpretation Comments SARS-CoV-2 Rapid ID NOW Not Detected Not Detected (test code = 41623-6) ALTAGRACIA (test code = ALTAGRACIA) ID NOW COVID-19 Assay is an isothermal nucleic acid amplification test intended for the qualitative detection of nucleic acid from SARS-CoV-2 viral RNA in nasopharyngeal (GALLERY OR MUSEUM CURATOR) specimens. It is used under Emergency Use [...] indicated. Lab Interpretation Normal (test code = 68828-3) [facility]2019-10-31 20:39:00 Test Item Value Reference Range Interpretation Comments POCT GLU (test code = 5104218113) 213 mg/dL 70-110 H Lab Interpretation (test code = Abnormal 40241-3) [facility] [id number] 19:29:00 Test Item Value Reference Range Interpretation Comments TROPONIN I (test 0.014 ng/mL See_Comment [Automated code = 9088735722) message] The system which generated this result [...] ? Lab Interpretation Normal (test code = 23000-3) [facility]2020-[facility] 19:18:00 Test Item Value Reference Range Interpretation Comments APPEARANCE (test code = Clear Clear 7464951899) COLOR (test code = Yellow Yellow 1031877427) PH (test code = 4.8-8.0 1470934521) SP GRAVITY (test code = 1.003-1.030 2405336417) GLU U QUAL (test code = 500 mg/dL Normal A 6873346674) BLOOD (test code = Negative Negative 4726870429) KETONES (test code = 20 mg/dL Negative A 7062587428) PROTEIN (test code = 30 mg/dL Negative A 2887-8) UROBILIN (test code = Normal Normal 0326394389) BILIRUBIN (test code = Negative Negative 8135335838) NITRITE (test code = Negative Negative 8962765203) LEUK MARCI (test code = Negative Negative 7472540365) RBC/HPF (test code = <1 See_Comment [Autom ated message] 5297456572) The system [employer] generated this result transmit melissa reference range : 0 - 3 HPF. The refe rence range was not u sed to interpret th is result as normal/abnormal . WBC/HPF (test code = <1 See_Comment [Autom ated message] 6189115126) The system [employer] generated this result transmit melissa reference range : 0 - 5 HPF. The refe rence range was not u sed to interpret th is result as normal/abnormal . BACTERIA (test code = Negative Negative 1428071242) MUCOUS (test code = Slight Negative LPF A 2574187087) Lab Interpretation (test Abnormal code = 00372-0) [facility] (NA, K, CL, CO2, GLUCOSE, BUN, CREATININE, CA)2019-10-31 19:17:00 Test Item Value Reference Range Interpretation Comments NA (test code = 137 mmol/L 135-145 8689509951) K (test code = 3.9 mmol/L 3.5-5 4789131725) CL (test code = 103 mmol/L 98-108 7848603859) CO2 TOTAL (test code = 23 mmol/L 23-31 3458771441) AGAP (test code = 2-16 2687184799) BUN (test code = 9 mg/dL 7-23 9659609853) GLUCOSE (test code = 333 mg/dL 70-110 H 7503326021) CREATININE (test code = 0.70 mg/dL 0.6-1.25 7919277481) CALCIUM (test code = 8.6 mg/dL 8.6-10.6 4480482212) eGFR Calculation mL/min/1.73m2 (Non-) (test code = 5713165590) eGFR Calculation mL/min/1.73m2 () (test code = 3389563684) ALTAGRACIA (test code = ALTAGRACIA) Association of [...] tests). Lab Interpretation Abnormal (test code = 39173-4) [facility] (ALB, T.PRO, BILI T, BU/BC, ALT, AST, ALK PHOS)2019-10-31 19:17:00 Test Item Value Reference Range Interpretation Comments TOTAL BILI (test code = 0956599060) 0.4 mg/dL 0.1-1.1 BILI UNCON (test code = 9297099351) 0.2 mg/dL 0.1-1.1 BILI CONJ (test code = 9871807178) 0.0 mg/dL 0-0.3 T PROTEIN (test code = 7283543261) 6.7 g/dL 6.3-8.2 ALBUMIN (test code = 0444955713) 4.2 g/dL 3.5-5 ALK PHOS (test code = 2351171537) 88 U/L 34-122 ALTv (test code = 1742-6) 33 U/L 5-50 AST(SGOT) (test code = 8388663537) 24 U/L 13-40 Lab Interpretation (test code = Normal 22065-9) [facility]2020-[facility] 19:14:00 Test Item Value Reference Range Interpretation Comments APTT Patient (test See_Comment [Automat ed code = 3173-2) message] The system which generated this result transmitted reference range : 23 - 38 Seconds . The reference range was not used to interpr et this result as normal/abnormal . ALTAGRACIA (test code = ALTAGRACIA) The [facility] patient population mean normal value for aPTT is 30 seconds. Lab Interpretation Normal (test code = 08706-0) [facility]thrombin Time (PT) / [id number] 19:12:00 Test Item Value Reference Range Interpretation [...] tions. Lab Interpretation (test Normal code = 10624-8) [facility] WITH [id number] 19:04:00 Test Item Value Reference Range Interpretation Comments WBC (test code = See_Comment [Automated 3290-2) message] The sy stem which generated this result transmitted reference range : 4.20 - 10.70 10*3/?L. The reference range was not used to interpret this result as normal/abnormal . RBC (test code = See_Comment [Automated 009-8) message] The sy stem which generated this [...] RDW-SD (test code = 45.9 fL 38.5-51.6 60042-4) RDW-CV (test code = 13.5 % 12.1-15.4 788-0) PLT (test code = See_Comment [Automated 777-3) message] The sy stem which generated this result transmitted reference range : 150 - 328 10*3/ ?L. The reference r cristin was not used to interpret this result as normal/abnormal . MPV (test code = 9.6 fL 9.8-13 L 78306-9) NRBC/100 WBC (test See_Comment [Automat ed code = 2824234984) message] The system which generated this result transmitted reference range : 0.0 - 10.0 /100 WBCs. The refer ence range was not u sed to interpret th is result as normal/abnormal . NRBC x10^3 (test code <0.01 See_Comment [Auto mated = 0346566059) message] The s ystem which generated this result transmitted reference range : 10*3/?L. The reference range was not used to interpret this result as normal/abnormal . GRAN MAT (NEUT) % 55.6 % (test code = 770-8) IMM GRAN % (test code 1.20 % = 8009505575) LYMPH % (test code = 31.2 % 736-9) MONO % (test code = 10.4 % 5905-5) EOS % (test code = 1.2 % 713-8) BASO % (test code = 0.4 % 706-2) GRAN MAT x10^3(ANC) 4.75 10*3/uL 1.99-6.95 (test code = 8745166716) IMM GRAN x10^3 (test 0.10 10*3/uL 0-0.06 H code = 7172923685) LYMPH x10^3 (test code 2.66 10*3/uL 1.09-3.23 = 731-0) MONO x10^3 (test code 0.89 10*3/uL 0.36-1.02 = 742-7) EOS x10^3 (test code = 0.10 10*3/uL 0.06-0.53 711-2) BASO x10^3 (test code 0.03 10*3/uL 0.01-0.09 = 704-7) Lab Interpretation Abnormal (test code = 10869-0) [facility] METABOLIC PANEL (NA, K, CL, CO2, GLUCOSE, BUN, CREATININE, CA)2019-05-10 00:08:00 Test Item Value Reference Range Interpretation Comments NA (test code = 134 mmol/L 135-145 L 7911238067) K (test code = 3.9 mmol/L 3.5-5 6635884067) CL (test code = 100 mmol/L 98-108 9153260808) CO2 TOTAL (test code = 21 mmol/L 23-31 L 1405444551) AGAP (test code = 2-16 2570329418) BUN (test code = 21 mg/dL 7-23 1601194293) GLUCOSE (test code = 353 mg/dL 70-110 H 4207377756) CREATININE (test code = 0.61 mg/dL 0.6-1.25 5920550865) CALCIUM (test code = 9.1 mg/dL 8.6-10.6 1395133778) eGFR Calculation mL/min/1.73m2 (Non-) (test code = 5790643270) eGFR Calculation mL/min/1.73m2 () (test code = 8011421834) ALTAGRACIA (test code = ALTAGRACIA) Association of Glomerular Filtration Rate (GFR) and Staging of Kidney Disease*+ + + +| GFR (mL/min/1.73 m2)?| With Kidney Damage?|?Without Kidney Damage+ --------+ --------+ +|?>90?|?S kite one?|? Normal?+ ---------+ ---------+ +|?60-89? |?Stage two?|? [...] tests). Lab Interpretation Abnormal (test code = 32999-5) [facility] WITH [id number] 23:57:00 Test Item Value Reference Range Interpretation Comments WBC (test code = See_Comment H [Automated 8990-2) message] The system which generated this result [...] (test code = 36.8 fL 38.5-51.6 L 17401-8) RDW-CV (test code = 11.4 % 12.1-15.4 L 788-0) PLT (test code = See_Comment [Automated 777-3) message] The system which generated this result transmit melissa reference range : 150 - 328 10*3/ ?L. The reference range was not u sed to interpret th is result as normal/abnormal . MPV (test code = 10.5 fL 9.8-13 09018-4) NRBC/100 WBC (test See_Comment [Automat ed code = 8263344403) message] The system which generated this result transmit melissa reference range : 0.0 - 10.0 /100 WBCs. The reference range was not used to interpret this result as normal/abnormal . NRBC x10^3 (test code <0.01 See_Comment [Auto mated = 9516697575) message] The system which generated this result transmit melissa reference range : 10*3/?L. The reference range was not used to interpret this result as normal/abnormal . GRAN MAT (NEUT) % 77.3 % (test code = 770-8) IMM GRAN % (test code 0.50 % = 2064261835) LYMPH % (test code = 13.6 % 736-9) MONO % (test code = 8.0 % 5905-5) EOS % (test code = 0.4 % 713-8) BASO % (test code = 0.2 % 706-2) GRAN MAT x10^3(ANC) 12.89 10*3/uL 1.99-6.95 H (test code = 7605529737) IMM GRAN x10^3 (test 0.09 10*3/uL 0-0.06 H code = 9368470008) LYMPH x10^3 (test code 2.27 10*3/uL 1.09-3.23 = 731-0) MONO x10^3 (test code 1.34 10*3/uL 0.36-1.02 H = 742-7) EOS x10^3 (test code = 0.07 10*3/uL 0.06-0.53 711-2) BASO x10^3 (test code 0.04 10*3/uL 0.01-0.09 = 704-7) Lab Interpretation Abnormal (test code = 20277-5) [facility]
--- NOTE | 2022-03-28 20:09 | EDPHYS ---
Physician Documentation [facility] Name: Brett Kramer Age: 41 yrs Sex: Male : 1980 Arrival Date: 03/28/2022 Time: 19:28 Bed Waiting Private MD: ED Physician Ezra Solitario HPI: 03/28 19:48 This 41 yrs old Male presents to ER via Ambulatory with complaints of Blood rn Clot. 19:48 The patient or guardian reports chest pain that is located primarily in the right rn lateral anterior chest. Onset: 4 day(s) ago. The pain does not radiate. Associated signs and symptoms: Pertinent positives: shortness of breath, Pertinent negatives: abdominal pain, cough, syncope, vomiting. The chest pain is described as sharp, stabbing. Duration: The patient or guardian reports multiple episodes, that are intermittent. Modifying factors: The symptoms are alleviated by nothing. the symptoms are aggravated by deep breath. Severity of pain: At its worst the pain was mild in the emergency department the pain is unchanged. The patient has experienced similar episodes in the past. The patient has been recently seen by a physician:. Pt just seen at [facility], diagnosed with small right pulmonary embolism, reports chest pain on right side and worse with deep breath. Has had PE before and was on xarelto. Has had workup with hematology in past without clear reason for PE. Came with bloodwork and shows neg troponin, no ischemia on ECG, and CT PE shows small right PE. Diagnosis from [facility] shows PE with out acute cor pulmonale. . Historical: - Allergies: 19:38 No Known Allergies; vc1 - PMHx: 19:38 Diabetes - NIDDM; Hypertension; PE; vc1 - PSHx: 19:38 Heart Stents; vc1 - Immunization history:: Adult Immunizations up to date. - Social history:: Smoking status: Patient/guardian denies using tobacco, the patient reports quitting approximately 4 years ago. - Family history:: not pertinent. - Hospitalizations: : No recent hospitalization is reported. ROS: 19:48 Constitutional: Negative for fever, chills, and weight loss, Eyes: Negative for injury, rn pain, redness, and discharge, Neck: Negative for injury, pain, and swelling, Cardiovascular: Negative for palpitations, and edema, Respiratory: Negative for cough, wheezing Abdomen/GI: Negative for abdominal pain, nausea, vomiting, diarrhea, and constipation, MS/Extremity: Negative for injury and deformity, Skin: Negative for injury, rash, and discoloration, Neuro: Negative for headache, weakness, numbness, tingling, and seizure. Exam: 19:48 Constitutional: This is a well developed, well nourished patient who is awake, alert, rn and in no acute distress. Ambulatory to room without difficulty or assistance. Head/Face: Normocephalic, atraumatic. Cardiovascular: Regular rate and rhythm. No pulse deficits. Respiratory: No increased work of breathing, no retractions or nasal flaring. Abdomen/GI: Soft, non-tender Skin: Warm, dry MS/ Extremity: Pulses equal, no cyanosis. Neuro: Awake and alert, GCS 15 Vital Signs: 19:33 Weight 122.47 kg; Height 5 ft. 8 in. (172.72 cm); Pain 8/10; vc1 19:37 BP 142 / 95; Pulse 84; Resp 15; Pulse Ox 97% ; vc1 19:33 Body Mass Index 41.05 (122.47 kg, 172.72 cm) vc1 MDM: 19:31 Patient medically screened. rn 20:07 Differential diagnosis: pulmonary embolus. Data reviewed: vital signs, nurses notes, rn diagnostic data from outside facility, and as a result, I will discharge patient. Counseling: I had a detailed discussion with the patient and/or guardian regarding: the historical points, exam findings, and any diagnostic results supporting the discharge/admit diagnosis, the need for outpatient follow up, to return to the emergency department if symptoms worsen or persist or if there are any questions or concerns that arise at home. Special discussion: I discussed with the patient/guardian in detail that at this point there is no indication for admission to the hospital. It is understood, however, that if the symptoms persist or worsen the patient needs to return immediately for re-evaluation. Based on the history and exam findings, there is no indication for further emergent testing or inpatient evaluation. I discussed with the patient/guardian the need to see the primary care provider for further evaluation of the symptoms. ED course: Pt with uncomplicated PE, neg trop and ecg from [facility] today. Normal vitals. Will dc home with xarelto as has been on xarelto before. . Administered Medications: 20:21 Drug: Xarelto (rivaroxaban) 20 mg Route: PO; vc1 20:21 Follow up: Response: Medication administered at discharge. vc1 Disposition Summary: 03/28/22 20:09 Discharge Ordered Location: Home rn Problem: new rn Symptoms: are unchanged rn Condition: Stable rn Diagnosis - Pulmonary embolism without acute cor pulmonale rn Followup: rn - With: Korey Ordonez MD - When: As needed - Reason: Recheck today's complaints, Re-evaluation by your physician Discharge Instructions: - Discharge Summary Sheet rn - Pulmonary Embolism rn Forms: - Medication Reconciliation Form rn - Thank You Letter rn - Antibiotic distance learning administrator - Prescription Opioid Use rn Prescriptions: - Xarelto 20 mg Oral Tablet - take 1 tablet by ORAL route once daily; 90 tablet; Refills: 0, Product rn Selection Permitted Signatures: Ezra Solitraio MD MD rn Calcote, Vanessa, RN RN vc1
--- NOTE | 2022-03-28 20:09 | ER ---
Nurse's Notes [facility] Name: Brett Kramer Age: 41 yrs Sex: Male : 1980 Arrival Date: 03/28/2022 Time: 19:28 Bed Waiting Private MD: Diagnosis: Pulmonary embolism without acute cor pulmonale Presentation: 03/28 19:33 Chief complaint: Patient states: "I went to [facility] and they did a CT with contrast they vc1 said I have a PE on right lung. They wanted to send me here by ambulance but I had to go lock up my house. I came here after that.". Coronavirus screen: Vaccine status: Patient reports receiving the 2nd dose of the covid vaccine. Booster, Biom'Up At this time, the client does not indicate any symptoms associated with coronavirus-19. Ebola Screen: No symptoms or risks identified at this time. Risk Assessment: Do you want to hurt yourself or someone else? Patient reports no desire to harm self or others. Onset of symptoms is unknown. 19:33 Method Of Arrival: Ambulatory vc1 19:33 Acuity: CLAIRE 3 vc1 20:20 Initial Sepsis Screen: Does the patient meet any 2 criteria? No. Patient's initial vc1 sepsis screen is negative. Does the patient have a suspected source of infection? No. Patient's initial sepsis screen is negative. Triage Assessment: 19:39 General: Appears in no apparent distress. comfortable, Behavior is calm, cooperative, vc1 appropriate for age. Pain: Complains of pain in chest Pain does not radiate. Pain currently is 8 out of 10 on a pain scale. Neuro: Level of Consciousness is awake, alert, obeys commands, Oriented to person, place, time, situation, Appropriate for age. Cardiovascular: Reports chest pain, since with inhalation Capillary refill < 3 seconds Patient's skin is warm and dry. Respiratory: Reports shortness of breath at rest Airway is patent Respiratory effort is even, unlabored, Respiratory pattern is regular, symmetrical. GI: No deficits noted. : No deficits noted. Derm: No deficits noted. Historical: - Allergies: 19:38 No Known Allergies; vc1 - PMHx: 19:38 Diabetes - NIDDM; Hypertension; PE; vc1 - PSHx: 19:38 Heart Stents; vc1 - Immunization history:: Adult Immunizations up to date. - Social history:: Smoking status: Patient/guardian denies using tobacco, the patient reports quitting approximately 4 years ago. - Family history:: not pertinent. - Hospitalizations: : No recent hospitalization is reported. Screenin:19 Abuse screen: Denies threats or abuse. Nutritional screening: No deficits noted. vc1 Tuberculosis screening: No symptoms or risk factors identified. Fall Risk None identified. Vital Signs: 19:33 Weight 122.47 kg; Height 5 ft. 8 in. (172.72 cm); Pain 8/10; vc1 19:37 BP 142 / 95; Pulse 84; Resp 15; Pulse Ox 97% ; vc1 19:33 Body Mass Index 41.05 (122.47 kg, 172.72 cm) vc1 ED Course: 19:28 Patient arrived in ED. ja2 19:31 Ezra Solitario MD is Attending Physician. rn 19:35 Triage completed. vc1 19:37 Arm band placed on right wrist. vc1 20:08 Korey Ordonez MD is Referral Physician. rn 20:20 No provider procedures requiring assistance completed. Patient did not have IV access vc1 during this emergency room visit. Administered Medications: 20:21 Drug: Xarelto (rivaroxaban) 20 mg Route: PO; vc1 20:21 Follow up: Response: Medication administered at discharge. vc1 Medication: 20:20 VIS not applicable for this client. vc1 Outcome: 20:09 Discharge ordered by . rn 20:20 Discharged to home ambulatory. vc1 20:20 Condition: good 20:20 Discharge instructions given to patient, Instructed on discharge instructions, follow up and referral plans. medication usage, Demonstrated understanding of instructions, follow-up care, medications, Prescriptions given X 1. 20:21 Patient left the ED. vc1 Signatures: Ezra Solitario MD MD rn Alexander, Jessica ja2 Calcote, Vanessa, RN RN vc1
[2022-03-28] MEDS ORDERED: RIVAROXABAN 20 MG TABLET PO ONE (20:15)
[2022-03-28 21:44] VITALS: BP 142/95; O2SAT 97
== END 2022-03-28 20:21 | disposition home or self-care (01) ==
LOC: ER 19:20
DX: I26.99 Other pulmonary embolism without acute cor pulmonale (principal); E11.9 Type 2 diabetes mellitus without complications; I10 Essential (primary) hypertension
CPT/HCPCS: 99283

== ENCOUNTER 2023-03-29 17:32 | Observation (INO) | payer OTHER, SELFPAY ==
--- OUTSIDE RECORDS SUMMARY | 2023-03-29 17:40 | XMS REPORT | Continuity of Care Document ---
:[address] [facility] t Address [address] [place] [address] [address] [place] [address] Care Team Providers Name Role Phone ASNDIP BRANDT Primary Care Physician Unavailable Sandip Brandt Attending Clinician Unavailable Pob, [facility] Main Attending Clinician Unavailable Aleksander Hanks MD Attending Clinician ALEKSANDER HANKS Attending Clinician Unavailable Julius Correa MD Attending Clinician KONSTANTIN WOODSON Attending Clinician Unavailable Konstantin Woodson MD Attending Clinician Marleny Henry RN Attending Clinician DEMETRIA NANCE Attending Clinician Unavailable DEMETRIA NANCE Attending Clinician Unavailable Bailey Nunez NP Attending Clinician Tanner Peralta MD Attending Clinician JULIUS CORREA Attending Clinician Unavailable Doctor Unassigned, [place] Attending Clinician Unavailable Kayleen Tong MA Attending Clinician Unavailable Betsy Prakash Attending Clinician Tiffanie Mendoza MD Attending Clinician TIFFANIE MENDOZA Attending Clinician Unavailable Jennie Ramirez RN Attending Clinician Corie Banerjee Attending Clinician Shandra STARRNeon R Attending Clinician Any Lam MD Attending Clinician Henry Armstrong MD Attending Clinician HENRY ARMSTRONG Attending Clinician Unavailable Adam MARIEP, Isamar Attending Clinician Randolph Leggett MD Attending Clinician RANDOLPH LEGGETT Attending Clinician Unavailable Maxwell ESCOBAR, Luis Angel Attending Clinician Gomez ESCOBAR, Florian Attending Clinician Nii RODRIGUEZ, Héctor Attending Clinician Brad ESCOBAR, Trena Attending Clinician Ray Cyr MD Attending Clinician Vivian Young DO Attending Clinician VIVIAN YOUNG Attending Clinician Unavailable Harleen CARMONA, Naya Colmenares Attending Clinician Esvin FARIAS, Charley S Attending Clinician DEMETRIA NANCE Admitting Clinician Unavailable Tiffanie Mendoza MD Admitting Clinician TIFFANIE MENDOZA Admitting Clinician Unavailable Any Lam MD Admitting Clinician ANY LAM Admitting Clinician Unavailable Randolph Leggett MD Admitting Clinician RANDOLPH LEGGETT Admitting Clinician Unavailable Florian Dyer MD Admitting Clinician VIVIAN YOUNG Admitting Clinician Unavailable Payers Payer Name Policy Type Policy Number Effective Date Expiration Date S ource Problems Condition Condition Condition Status Onset Resolution Last Treating Co mments Source Name Details Category Date Date Treatment Clinician Date Morbid Morbid Disease Active 2021-08 Univers obesity obesity 1-12 [place] 00 Me dical of of Branch 40.0-49.9 40.0-49.9 Arthritis, Arthritis, Disease Active U nivers multiple multiple 04-26 ity of joint joint 00:00: [place] involvemen involvemen 00 Me dical t t Branch Need for Need for Disease Active Unive rs hepatitis hepatitis 04-26 ity of C C 00:00: [place] screening screening 00 [facility] test test Branch Chronic Chronic Disease Active Univers saddle saddle 04-25 it[place] of pulmonary pulmonary 00:[place] embol[place] embolism 00 Med[place] l without without Branch acute cor acute cor pulmonale pulmonale Intractabl Intractabl Disease Active U nivers e migraine e migraine 04-25 it y of equivalent equivalent 00:00: [place] [facility] Mild major Mild major Disease Active U nivers depression depression 04-25 it y of 00:00: [place] [facility] Chronic Chronic Disease Active Univers allergic allergic 04-25 ity of rhinitis rhinitis 00:00: [place] [facility] Encounter Encounter Disease Active Uni vers to to 04-25 ity of establish establish 00:00: [place] care with care with [facility] new doctor new doctor Br anch Crushing Crushing Disease Active Unive rs injury of injury of 04-25 ity of right right 00:00: [place] foot, foot, 00 Medical sequela sequela Branch Anxiety, Anxiety, Disease Active Unive rs generalize generalize 04-25 it y of d d 00:00: [place] 00 Medical Branch Primary Primary Disease Active Univers insomnia insomnia 04-25 ity of 00:00: [place] [facility] Cigarette Cigarette Disease Active Uni vers nicotine nicotine 04-25 ity of dependence dependence 00:[place] remission remission Bran ch Chronic Chronic Disease Active Univers saddle saddle 04-25 ity of pulmonary pulmonary 00:[place] embol[place] embol[place] 00 Medica l without without Branch acute cor acute cor pulmonale pulmonale Chest pain Chest pain Disease Active U nivers 1-08 ity of 00:00: [place] 00 Medical Branch 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 0-09 ity of disease disease 00:00: [place] involving involving 00 [facility] gambell gambell 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 Stable Stable Disease Active 2019-08 Univers angina angina 0-09 ity of 00:00: [place] [facility] 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 0-09 ity of disease disease 00:00: [place] involving involving 00 Medi zaina gamb[place] gambell 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 Unstable Unstable Disease Active Unive rs angina angina 930 ity of 00:: [place] [facility] Type 2 Type 2 Disease Active Univers diabetes diabetes 9 ity of mellitus mellitus 00:00: [place] without without 00 Medical complicati complicati Br anch on, on, without without long-term long-term current current use of use of insulin insulin Family Family Disease Active Univers history of history of 05-24 it y of early CAD early CAD 00:00: [facility] Essential Essential Disease Active Uni vers hypertensi hypertensi 05-24 it y of on on 00:00: [place] [facility] Coronary Coronary Disease Active Unive rs artery artery 05-24 ity of calcificat calcificat 00:[place] Medical [place] Atypical Atypical Disease Active Unive rs chest pain chest pain 05-23 it y of 00:: [place] [facility] Orbital Orbital Disease Active Overview: Univ ers cellulitis cellulitis 16 Formattin ity of , right , right 00:00: g of this note Medical might be Branch different from the original. S/P Orbitotom y with Mass Excision OD Obesity Obesity Disease Active Univers (BMI (BMI 9-16 ity of 30-39.9) 30-39.9) 00:00: [place] [facility] Open wound Open wound Disease Active 2017-08 M ethodi of right of right 1-14 st great toe great toe 00:00: [facility] 00 l Allergies, Adverse Reactions, Alerts Allergy Allergy Status Severity Reaction(s) Onset Inactive Treating Comm ents Source Name Type Date Date Clinician Propoxyp Propensi Active Itching 2017-08 Metho di hene ty to 1-14 st N-Acetam adverse 00:00: Hospita inophen reaction 00 l s to drug NO KNOWN Drug Active Univers ALLERGIE Class ity of S [place] [facility] Social History Social Habit Start Date Stop Date Quantity Comments Source History SDHI University o f Alcohol Frequency [facility] edical Branch History [facility] University o f Alcohol Std Drinks [place] [facility] History [facility] University o f Alcohol Binge [place] [facility] Gender identity [facility] Sexual orientation [facility] Exposure to 2022-06-26 2022-07-06 Not sure University SARS-CoV-2 (event) 00:00:00 13:40:00 [facility] Branch Tobacco use and 2022-04-25 2022-04-25 Former smokeless Uni versity of exposure 00:00:00 00:00:00 tobacco user [facility] l Branch Tobacco Comment 2022-04-25 2022-04-25 Quit 2 years ago Uni versity of 00:00:00 00:00:00 [facility] [place] [facility] Cigarettes smoked 2022-04-25 2022-04-25 Univers ity of current (pack per 00:00:00 00:00:00 [facility] ) - Reported Branch Education 2020-05-23 2020-05-23 13 University of 00:00:00 00:00:00 [place] [facility] History [facility] 2020-05-23 2020-05-23 3 University o f Financial 00:00:00 00:00:00 [facility] Branch History [facility] Food 2020-05-23 2020-05-23 2 Univers ity of Worry 00:00:00 00:00:00 [place] [facility] History [facility] Food 2020-05-23 2020-05-23 2 Univers ity of Scarcity 00:00:00 00:00:00 [place] [facility] History [facility] 2020-05-23 2020-05-23 2 University o f Transport Med 00:00:00 00:00:00 [facility] al Branch History [facility] 2020-05-23 2020-05-23 2 University o f Transport Non-Med 00:00:00 00:00:00 [facility] Branch History of Social 2019-04-17 2019-04-[address] function 00:00:00 00:00:00 Hospital Alcohol intake 2018-07-21 2018-07-21 Current drinker [facility] 00:00:00 00:00:00 of alcohol Hospital (finding) Alcohol Comment 2018-07-08 2018-07-08 [facility]ional [facility] History of tobacco 1996-05-10 2018-07-08 Cigarette Smoker [facility] 00:00:00 00:00:00 [facility] [place] [facility] Sex Ass[birth year] At [birth year] [facility] 00[facility]00 [facility] Smoking Status Start Date Stop Date Source Ex-smoker 2022-04-25 00:00:00 2022-04-25 [place] [facility] [place] 00:00:00 Medical [place] Occasional tobacco 2018-07-08 00:00:00 [facility] smoker Medications Ordered Filled Start Stop Current Ordering Indication Dosage Frequency Signature Comments Components Source Medication Medication Date Date Medication? Clinician (SIG) Name Name TRACY 2021-08 Yes [id number] INJECT Uni vers 0.25 mg or 1-30 0.25 MG ity of 0.5 mg(2 00:00: [place] mg/1.5 mL) 00 SKIN ONCE Medi zaina PnIj A WEEK FOR Branch 4 WEEKS, THEN INJECT 0.5 MG ONCE A WEEK FOR 4 WEEKS. BEGIN OZEMPIC 1MG AFTER COMPLETING . OZEMPIC 2021-08 Yes [id number] INJECT Uni vers 0.25 mg or 1-30 0.25 MG ity of 0.5 mg(2 00:00: [place] mg/1.5 mL) 00 SKIN ONCE Medi zaina PnIj A WEEK FOR Branch 4 WEEKS, THEN INJECT 0.5 MG ONCE A WEEK FOR 4 WEEKS. BEGIN OZEMPIC 1MG AFTER COMPLETING . OZEMPIC 2021-08 Yes [id number] INJECT Uni vers 0.25 mg or 1-30 0.25 MG ity of 0.5 mg(2 00:00: [place] mg/1.5 mL) 00 SKIN ONCE Medi zaina PnIj A WEEK FOR Branch 4 WEEKS, THEN INJECT 0.5 MG ONCE A WEEK FOR 4 WEEKS. BEGIN OZEMPIC 1MG AFTER COMPLETING . OZEMPIC 2021-08 Yes [id number] INJECT Uni vers 0.25 mg or 1-30 0.25 MG ity of 0.5 mg(2 00:00: [place] mg/1.5 mL) 00 SKIN ONCE Medi zaina PnIj A WEEK FOR Branch 4 WEEKS, THEN INJECT 0.5 MG ONCE A WEEK FOR 4 WEEKS. BEGIN OZEMPIC 1MG AFTER COMPLETING . OZEMPIC 2021-08 Yes [id number] INJECT Uni vers 0.25 mg or 1-30 0.25 MG ity of 0.5 mg(2 00:00: [place] THE [place] mg/1.5 mL) 00 SKIN ONCE Medi zaina PnIj A WEEK FOR Branch 4 WEEKS, THEN INJECT 0.5 MG ONCE A WEEK FOR 4 WEEKS. BEGIN OZEMPIC 1MG AFTER COMPLETING . OZEMPIC 2021-08 Yes [id number] INJECT Uni vers 0.25 mg or 1-30 0.25 MG ity of 0.5 mg(2 00:00: [place] mg/1.5 mL) 00 SKIN ONCE Medi zaina PnIj A WEEK FOR Branch 4 WEEKS, THEN INJECT 0.5 MG ONCE A WEEK FOR 4 WEEKS. BEGIN OZEMPIC 1MG AFTER COMPLETING . OZEMPIC 2021-08 Yes [id number] INJECT Uni vers 0.25 mg or 1-30 0.25 MG ity of 0.5 mg(2 00:00: [place] mg/1.5 mL) 00 SKIN ONCE Medi zaina PnIj A WEEK FOR Branch 4 WEEKS, THEN INJECT 0.5 MG ONCE A WEEK FOR 4 WEEKS. BEGIN OZEMPIC 1MG AFTER COMPLETING . isosorbide 2021-08 Yes 30mg 30 mg, Unive rs mononitrate 1-15 Oral, ity of (IMDUR) 24 15:00: DAILY, [place] hr tablet 00 First dose Medi zaina 30 mg on [facility] 07/09/22 at 0900, Until Discontinu ed, Routine rivaroxaban 2021-08 Yes 20mg 20 mg, Univ ers (XARELTO) 1-15 Oral, ity of tablet 20 15:00: DAILY, [place] mg 00 First dose Medical on [facility] 07/09/22 at 0900, Until Discontinu ed, Routine isosorbide 2021-08- No 30mg 30 mg, Univ ers mononitrate 1-15 11-15 Oral, ity of (IMDUR) 24 15:00: 00:06 DAILY, [place] tablet 00 :16 First dose Medi zaina 30 mg on [facility] 07/09/22 at 0900, Until Discontinu ed, Routine rivaroxaban 2021-08 No 20mg 20 mg, Uni vers (XARELTO) 1-15 11-15 Oral, ity of tablet 20 15:00: 00:06 DAILY, [place] mg 00 :16 First dose Medical on [facility] 07/09/22 at 0900, Until Discontinu ed, Routine clopidogreL 2021-08 Yes [id number] 75mg Take 1 U nivers 75 mg 1-15 tablet by ity of tablet 00:00: mouth in [place] 00 the Medical morning. Branch fenofibrate 2021-08 Yes [id number] 67mg Take 1 U nivers micronized 1-15 capsule by ity of 67 mg 00:00: mouth in [place] capsule 00 the Medical morning. Branch isosorbide 2021-08 Yes [id number] 30mg Take 1 Un lizbeth mononitrate 1-15 tablet by ity of 30 mg 24 hr 00:00: [place] tablet 00 the Medical morning. Branch pantoprazol 2021-08 Yes [id number] 40mg Take 1 U nivers e 40 mg EC 1-15 tablet by ity of tablet 00:00: mouth in [place] 00 the Medical morning. Branch rivaroxaban 2021-08 Yes 20mg Take 1 Univ ers 20 mg 1-15 tablet by ity of tablet 00:00: mouth in [place] 00 the Medical morning. Branch Indication s: dvt clopidogreL 2021-08 Yes [id number] 75mg Take 1 U nivers 75 mg 1-15 tablet by ity of tablet 00:00: mouth in [place] 00 the Medical morning. Branch fenofibrate 2021-08 Yes [id number] 67mg Take 1 U nivers micronized 1-15 capsule by ity of 67 mg 00:00: mouth in [place] capsule 00 the Medical morning. Branch isosorbide 2021- Yes [id number] 30mg Take 1 Un lizbeth mononitrate 1-15 tablet by ity of 30 mg 24 hr 00:00: [place] tablet 00 the Medical morning. Branch pantoprazol 2021-08 Yes [id number] 40mg Take 1 U nivers e 40 mg EC 1-15 tablet by ity of tablet 00:00: mouth in [place] 00 the Medical morning. Branch rivaroxaban 2021-08 Yes 20mg Take 1 Univ ers 20 mg 1-15 tablet by ity of tablet 00:00: mouth in [place] 00 the Medical morning. Branch Indication s: dvt clopidogreL 2021-08 Yes [id number] 75mg Take 1 U nivers 75 mg 1-15 tablet by ity of tablet 00:00: mouth in [place] 00 the Medical morning. Branch fenofibrate 2021-08 Yes [id number] 67mg Take 1 U nivers micronized 1-15 capsule by ity of 67 mg 00:00: mouth in [place] capsule 00 the Medical morning. Branch isosorbide 2021-08 Yes [id number] 30mg Take 1 Un lizbeth mononitrate 1-15 tablet by ity of 30 mg 24 hr 00:00: mouth [place] tablet 00 the Medical morning. Branch pantoprazol 2021-08 Yes [id number] 40mg Take 1 U nivers e 40 mg EC 1-15 tablet by ity of tablet 00:00: mouth in [place] 00 the Medical morning. Branch rivaroxaban 2021- Yes 20mg Take 1 Univ ers 20 mg 1-15 tablet by ity of tablet 00:00: mouth in [place] 00 the Medical morning. Branch Indication s: dvt clopidogreL 2021-08 Yes [id number] 75mg Take 1 U nivers 75 mg 1-15 tablet by ity of tablet 00:00: mouth in [place] the Medical morning. Branch fenofibrate 2021-08 Yes [id number] 67mg Take 1 U nivers micronized 1-15 capsule by ity of 67 mg 00:00: mouth in [place] capsule 00 the Medical morning. Branch isosorbide 2021-08 Yes [id number] 30mg Take 1 Un lizbeth mononitrate 1-15 tablet by ity of 30 mg 24 hr 00:00: mouth in [place] tablet 00 the Medical morning. Branch pantoprazol 2021- Yes [id number] 40mg Take 1 U nivers e 40 mg EC 1-15 tablet by ity of tablet 00:00: mouth in [place] 00 the Medical morning. Branch rivaroxaban 2021- Yes 20mg Take 1 Univ ers 20 mg 1-15 tablet by ity of tablet 00:00: mouth in [place] 00 the Medical morning. Branch Indication s: dvt clopidogreL 2021- Yes [id number] 75mg Take 1 U nivers 75 mg 1-15 tablet by ity of tablet 00:00: mouth in [place] 00 the Medical morning. Branch fenofibrate 2021- Yes [id number] 67mg Take 1 U nivers micronized 1-15 capsule by ity of 67 mg 00:00: mouth in [place] capsule 00 the Medical morning. Branch isosorbide 2021-08 Yes [id number] 30mg Take 1 Un lizbeth mononitrate 1-15 tablet by ity of 30 mg 24 hr 00:00: mouth in [place] tablet 00 the Medical morning. Branch pantoprazol 2021-08 Yes [id number] 40mg Take 1 U nivers e 40 mg EC 1-15 tablet by ity of tablet 00:00: mouth in [place] 00 the Medical morning. Branch rivaroxaban 2021-08 Yes 20mg Take 1 Univ ers 20 mg 1-15 tablet by ity of tablet 00:00: mouth in [place] 00 the Medical morning. Branch Indication s: dvt clopidogreL 2021-08 Yes [id number] 75mg Take 1 U nivers 75 mg 1-15 tablet by ity of tablet 00:00: mouth in [place] 00 the Medical morning. Branch fenofibrate 2021-08 Yes [id number] 67mg Take 1 U nivers micronized 1-15 capsule by ity of 67 mg 00:00: mouth in [place] capsule 00 the Medical morning. Branch isosorbide 2021- Yes [id number] 30mg Take 1 Un [place]iz[place] mononitrate 1-15 tablet by ity of 30 mg 24 hr 00:00: mouth [place] tablet 00 the Medical morning. Branch pantoprazol 2021-08 Yes [id number] 40mg Take 1 U nivers e 40 mg EC 1-15 tablet by ity of tablet 00:00: mouth in [place] the Medical morning. Branch rivaroxaban 2021-08 Yes 20mg Take 1 Univ ers 20 mg 1-15 tablet by ity of tablet 00:00: mouth in [place] the Medical morning. Branch Indication s: dvt clopidogreL 2021-08 Yes [id number] 75mg Take 1 U nivers 75 mg 1-15 tablet by ity of tablet 00:00: mouth in [place] 00 the Medical morning. Branch fenofibrate 2021- Yes [id number] 67mg Take 1 U nivers micronized 1-15 capsule by ity of 67 mg 00:00: mouth in [place] capsule 00 the Medical morning. Branch isosorbide 2021- Yes [id number] 30mg Take 1 Un lizbeth mononitrate 1-15 tablet by ity of 30 mg 24 hr 00:00: mouth in [place] tablet 00 the Medical morning. Branch pantoprazol 2021-08 Yes [id number] 40mg Take 1 U nivers e 40 mg EC 1-15 tablet by ity of tablet 00:00: mouth in [place] 00 the Medical morning. Branch rivaroxaban 2021-08 Yes 20mg Take 1 Univ ers 20 mg 1-15 tablet by ity of tablet 00:00: mouth in [place] 00 the Medical morning. Branch Indication s: dvt clopidogreL 2021-08 Yes [id number] 75mg Take 1 U nivers 75 mg 1-15 tablet by ity of tablet 00:00: mouth in [place] 00 the Medical morning. Branch fenofibrate 2021-08 Yes [id number] 67mg Take 1 U nivers micronized 1-15 capsule by ity of 67 mg 00:00: mouth in [place] capsule 00 the Medical morning. Branch isosorbide 2021-08 Yes [id number] 30mg Take 1 Un [place] mononitrate 1-15 tablet by ity of 30 mg 24 hr 00:00: mouth [place] tablet 00 the Medical morning. Branch pantoprazol 2021-08 Yes [id number] 40mg Take 1 U nivers e 40 mg EC 1-15 tablet by ity of tablet 00:00: mouth in [place] the Medical morning. Branch rivaroxaban 2021-08 Yes 20mg Take 1 Univ ers 20 mg 1-15 tablet by ity of tablet 00:00: mouth in [place] the Medical morning. Branch Indication s: dvt clopidogreL 2021-08 Yes [id number] 75mg Take 1 U nivers 75 mg 1-15 tablet by ity of tablet 00:00: mouth in [place] the Medical morning. Branch fenofibrate 2021-08 Yes [id number] 67mg Take 1 U nivers micronized 1-15 capsule by ity of 67 mg 00:00: mouth in [place] capsule 00 the Medical morning. Branch isosorbide 2021-08 Yes [id number] 30mg Take 1 Un [place] mononitrate 1-15 tablet by ity of 30 mg 24 hr 00:00: mouth [place] tablet 00 the Medical morning. Branch pantoprazol 2021-08 Yes [id number] 40mg Take 1 U nivers e 40 mg EC 1-15 tablet by ity of tablet 00:00: mouth in [place] 00 the Medical morning. Branch rivaroxaban 2021-08 Yes 20mg Take 1 Univ ers 20 mg 1-15 tablet by ity of tablet 00:00: mouth in [place] 00 the Medical morning. Branch Indication s: dvt clopidogreL 2021-08 Yes [id number] 75mg Take 1 U nivers 75 mg 1-15 tablet by ity of tablet 00:00: mouth in [place] 00 the Medical morning. Branch fenofibrate 2021-08 Yes [id number] 67mg Take 1 U nivers micronized 1-15 capsule by ity of 67 mg 00:00: mouth in [place] capsule 00 the Medical morning. Branch isosorbide 2021-08 Yes [id number] 30mg Take 1 Un [place] mononitrate 1-15 tablet by ity of 30 mg 24 hr 00:00: mouth [place] tablet 00 the Medical morning. Branch pantoprazol 2021-08 Yes [id number] 40mg Take 1 U nivers e 40 mg EC 1-15 tablet by ity of tablet 00:00: mouth in [place] 00 the Medical morning. Branch rivaroxaban 2021-08 Yes 20mg Take 1 Univ ers 20 mg 1-15 tablet by ity of tablet 00:00: mouth in [place] 00 the Medical morning. Branch Indication s: dvt iopamidol 2021-08- No ONCE INTRA U nivers (ISOVUE -14 07-08 PROCEDURE, ity o f 370-500 mL) 15:30: 15:32 [place] injection 59 :30 on [facility] 07/08/22 [place] at 0930, Until [facility] 07/08/22 at 0932, Routine, CV Intraproce dure iopamidol 2021-08- No ONCE INTRA U nivers (ISOVUE-370 09-07 PROCEDURE, i ty of ) injection 15:22: 16:02 [place] 25 :03 on [facility] 07/08/22 [place] at 0922, Until [facility] 07/08/22 at 1002, Routine, CV Intraproce dure clopidogreL 2021-08 Yes 75mg 75 mg, Univ ers (PLAVIX) 75 -14 Oral, ity of mg tablet 15:00: DAILY, [place] 75 mg 00 First dose Medical on [facility] 07/08/22 at 0900, Until Discontinu ed, Routine clopidogreL 2021-08- No 75mg 75 mg, Uni vers (PLAVIX) 75 1-14 11-15 Oral, ity of mg tablet 15:00: 00:06 DAILY, [place] 75 mg 00 :16 First dose Medical on [facility] 07/08/22 at 0900, Until Discontinu ed, Routine heparin 2021-08- No ONCE INTRA Uni vers 1,000 09-07 PROCEDURE, ity of unit/mL 14:57: 16:02 Starting [place] injection 00 :03 on [facility] 07/08/22 Branch at 0857, Until [facility] 07/08/22 at 1002, Routine, CV Intraproce dure nitroglycer 2021-08- No ONCE INTRA Univers in (TRIDIL) 09-07 PROCEDURE, i ty of 2 mg in 10 14:57: 16:02 [place] mL D5W for 00 :03 on [facility] Cardiac 07/08/22 Branch Cath at 0857, Until [facility] 07/08/22 at 1002, Routine, CV Intraproce dure midazolam 2021-08- No ONCE INTRA U nivers (VERSED) 09-07 PROCEDURE, ity of injection 14:48: 15:32 Starting [place] 52 :30 on [facility] 07/08/22 Branch at 0848, Until [facility] 07/08/22 at 0932, Routine, CV Intraproce dure lidocaine 2021-08- No ONCE INTRA U nivers 1% (PF) 09-07 PROCEDURE, ity o f (XYLOCAINE) 14:48: 15:32 [place] injection 00 :30 on [facility] 07/08/22 Branch at 0848, Until [facility] 07/08/22 at 0932, Routine, CV Intraproce dure FENTanyl PF 2021-08- No ONCE INTRA Univers (SUBLIMAZE 09-07 PROCEDURE, it y of (PF)) 14:47: 15:32 Starting [place] injection 00 :30 on [facility] 07/08/22 Branch at 0847, Until [facility] 07/08/22 at 0932, Routine, CV Intraproce dure ranolazine 2021-08 Yes 500mg 500 mg, Uni vers (RANEXA) 12 09-07 Oral, ity of hr tablet 02:00: Q12H, [place] 500 mg 00 First dose Medical on [facility] 07/07/22 at 2000, Until Discontinu ed, Routine ranolazine 2021-08- No 500mg 500 mg, Un lizbeth (RANEXA) 12 1-14 11-15 Oral, ity of hr tablet 02:00: 00:06 Q12H, [place] 500 mg 00 :16 First dose Medical on [place] [facility] 07/07/22 at 2000, Until Discontinu ed, Routine ranolazine 2021-08 Yes [id number] 500mg Take 1 U nivers 500 mg 12 1-14 tablet by ity o f hr tablet 00:00: mouth [place] 00 every 12 Medical (twelve) Branch hours. aspirin 81 2021-08 Yes [id number] 81mg Take 1 Un [place] mg chewable 1-14 tablet by ity of tablet 00:00: mouth in [place] 00 the Medical morning. Branch ranolazine 2021-08 Yes [id number] 500mg Take 1 U nivers 500 mg 12 1-14 tablet by ity o f hr tablet 00:00: mouth [place] 00 every 12 Medical (twelve) Branch hours. aspirin 81 2021-08 Yes [id number] 81mg Take 1 Un [place] mg chewable 1-14 tablet by ity of tablet 00:00: mouth in [place] 00 the Medical morning. Branch ranolazine 2021-08 Yes [id number] 500mg Take 1 U nivers 500 mg 12 1-14 tablet by ity o f hr tablet 00:00: mouth [place] 00 every 12 Medical (twelve) Branch hours. aspirin 81 2021-08 Yes [id number] 81mg Take 1 Un [place] mg chewable 1-14 tablet by ity of tablet 00:00: mouth in [place] 00 the Medical morning. Branch ranolazine 2021-08 Yes [id number] 500mg Take 1 U nivers 500 mg 12 1-14 tablet by ity o f hr tablet 00:00: mouth [place] 00 every 12 Medical (twelve) Branch hours. aspirin 81 2021-08 Yes [id number] 81mg Take 1 [facility] mg chewable 1-14 tablet by ity of tablet 00:00: mouth in [place] 00 the Medical morning. Branch ranolazine 2021-08 Yes [id number] 500mg Take 1 U nivers 500 mg 12 1-14 tablet by ity o f hr tablet 00:00: mouth [place] 00 every 12 Medical (twelve) Branch hours. aspirin 81 2021-08 Yes [id number] 81mg Take 1 [facility] [place] mg chewable 1-14 tablet by ity of tablet 00:00: mouth in [place] 00 the Medical morning. Branch ranolazine 2021-08 Yes [id number] 500mg Take 1 U nivers 500 mg 12 1-14 tablet by ity o f hr tablet 00:00: mouth [place] 00 every 12 Medical (twelve) Branch hours. aspirin 81 2021-08 Yes [id number] 81mg Take 1 [facility] [place] mg chewable 1-14 tablet by ity of tablet 00:00: mouth in [place] 00 the Medical morning. Branch ranolazine 2021-08 Yes [id number] 500mg Take 1 U nivers 500 mg 12 1-14 tablet by ity o f hr tablet 00:00: mouth [place] 00 every 12 Medical (twelve) Branch hours. aspirin 81 2021-08 Yes [id number] 81mg Take 1 [facility] [place] mg chewable 1-14 tablet by ity of tablet 00:00: mouth in [place] 00 the Medical morning. Branch ranolazine 2021-08 Yes [id number] 500mg Take 1 U nivers 500 mg 12 1-14 tablet by ity o f hr tablet 00:00: mouth [place] 00 every 12 Medical (twelve) Branch hours. aspirin 81 2021-08 Yes [id number] 81mg Take 1 [facility] [place] mg chewable 1-14 tablet by ity of tablet 00:00: mouth in [place] 00 the Medical morning. Branch ranolazine 2021-08 Yes [id number] 500mg Take 1 U nivers 500 mg 12 1-14 tablet by ity o f hr tablet 00:00: mouth [place] 00 every 12 Medical (twelve) Branch hours. aspirin 81 2021-08 Yes [id number] 81mg Take 1 [facility] [place] mg chewable 1-14 tablet by ity of tablet 00:00: mouth in [place] 00 the Medical morning. Branch ranolazine 2021-08 Yes [id number] 500mg Take 1 U nivers 500 mg 12 1-14 tablet by ity o f hr tablet 00:00: mouth [place] 00 every 12 Medical (twelve) Branch hours. aspirin 81 2021-08 Yes [id number] 81mg Take 1 [facility] [place] mg chewable 1-14 tablet by ity of tablet 00:00: mouth in [place] 00 the Medical morning. Branch clopidogreL 2021-08- 300mg 300 mg, U nivers (PLAVIX) 1-13 11-13 Oral, ity of 300 mg 16:15: 16:08 ONCE, 1 [place] tablet 300 00 :00 dose, On Medic al mg [facility] 07/07/22 at 1015, Routine fenofibrate 2021-08 Yes 67mg 67 mg, Univ ers micronized 1-13 Oral, ity of (LOFIBRA) 15:00: DAILY, [place] capsule 67 00 First dose Med ical mg on [facility] 07/07/22 at 0900, Until Discontinu ed, Routine lisinopriL 2021-08 Yes 5mg 5 mg, Univer s (PRINIVIL,Z -13 Oral, ity of ESTRIL) 15:00: DAILY, [place] tablet 5 mg 00 First dose Me dical on [facility] 07/07/22 at 0900, Until Discontinu ed, Routine fluticasone 2021-08 Yes 1{spray 1 [place], [facility] propionate 09-06 } Nasal, ity of 50 15:00: DAILY, [place] mcg/actuati 00 First dose Me dical on nasal on [place] [facility] spray 1 07/07/22 [place] at 0900, Until Discontinu ed, Routine atorvastati 2021-08 Yes 80mg 80 mg, Univ ers n (LIPITOR) -13 Oral, ity of tablet 80 15:00: DAILY, [place] mg 00 First dose Medical on [facility] 07/07/22 at 0900, Until Discontinu ed, Routine fenofibrate 2021-08 No 67mg 67 mg, Uni vers micronized 09-06-15 Oral, ity of (LOFIBRA) 15:00: 00:06 DAILY, [place] capsule 67 00 :16 First dose Med ical mg on [place] 07/07/22 at 0900, Until Discontinu ed, Routine lisinopriL 2021-08 No 5mg 5 mg, Unive rs (PRINIVIL,Z 1-13 -15 Oral, ity of ESTRIL) 15:00: 00:06 DAILY, [place] tablet 5 mg 00 :16 First dose Me dical on [facility] 07/07/22 at 0900, Until Discontinu ed, Routine fluticasone 2021-08- No 1{spray 1 [place], [facility] propionate -07 07-15 } Nasal, ity of 50 15:00: 00:06 DAILY, [place] mcg/actuati 00 :16 First dose Me dical on nasal on [facility] spray 1 07/07/22 [place] at 0900, Until Discontinu ed, Routine atorvastati 2021-08- No 80mg 80 mg, Uni vers n (LIPITOR) 09-0615 Oral, ity of tablet 80 15:00: 00:06 DAILY, [place] mg 00 :16 First dose Medical on [facility] 07/07/22 at 0900, Until Discontinu ed, Routine aspirin 2021-08- No 81mg 81 mg, [facility] chewable 09-0614 Oral, ity of tablet 81 15:00: 17:05 DAILY, [place] mg 00 :20 First dose Medical on [facility] 07/07/22 at 0900, Until Discontinu ed, Routine HEPARIN 2021-08- No 4000U 4,000 [facility] SODIUM 09-06 Units, IV ity of (PORCINE) 15:00: 15:36 Push, [place] 1,000 00 :00 ONCE, 1 Medical UNIT/ML dose, On Branch BOLUS [facility] [place] ORDER SET 07/07/22 at 0900, RADHA aspirin 2021-08- No 324mg 324 mg, Unive rs chewable 09-06 Oral, ity of tablet 324 15:00: 02:29 DAILY, [place] mg 00 :48 First dose Medical on [facility] 07/07/22 at 0900, Until Discontinu ed, Routine heparin 2021-08- No 0U/h 0-2,150 Univer s 25,000 09-06 11-14 Units/hr ity of Units/250 14:53: 16:34 (0-21.5 [place] mL 20 :12 mL/hr), IV Medical (Premixed Infusion, Branc h Bag) in TITRATE, 0.45 % NS Parameters in Admin. Instr., Starting on [place] 07/07/22 at 0853
In itiate infusion at 12 units/kg/h r calculated as: 1,000 Units/hr (Maximum: 1,000 Units/hr). &nbs p;CAUTION - If LMWH given in ER, AVOID bolus and start next dose/drip 12 hrs after ER dosage.&nb sp; M ust program rate using programmab le infusion pump.& nbsp;&nbsp ;Check with the ordering provider first prior to any administra tion should the patient be on existing/a dditional anticoagul ant therapy. Rang e, Dosing and Testing: &nbs p;FOR [facility], [facility], AND [facility] ONLY &nbs p; - aPTT < 35: & nbsp;Bolus 5000 units, increase rate 300 units/hr&n bsp; - aPTT 35-44:&nbs p; Michael lotus 3000 units, increase rate 200 units/hr&n bsp; - aPTT 45-54:&nbs p; In crease rate 100 units/hr&n bsp; - aPTT 55-85:&nbs p; NO CHANGE&nbs p; - aPTT 86-95:&nbs p; De crease rate 100 units/hr&a mp;nbsp; - aPTT 96-120:&nb sp; H old 30 minutes, decrease rate 150 units/hr&n bsp; - aPTT > 120: Hold 60 minutes, decrease rate 200 units/hr&n bsp; Check aPTT 6 hours after initiation , then Q6H after every change, aPTT Q12H once therapeuti c levels are reached.&n bsp; &nbs p; __ &n bsp;FOR [facility] ONLY - aPTT < 40:&nb sp; B olus 5000 units, increase rate 300 units/hr&n bsp; [...] INITIAL BOLUS OR INITIAL INFUSION RATE.
morpHINE (2021-08 Yes 2mg 2 mg, Slow [facility] mg/mL) 13 IV Push, ity of injection 2 14:15: Q4HPRN, [place] mg 00 Starting Medical on [facility] 07/07/22 at 0815, Until Discontinu ed, Routine, Pain (scale 7-10) morpHINE (2021-08- No 2mg 2 mg, Slow [facility] mg/mL) 09-06-15 IV Push, ity of injection 2 14:15: 00:06 Q4HPRN, [place] mg 00 :16 Starting Medical on [facility] 07/07/22 at 0815, Until 07/08/22 at 1806, Routine, Pain (scale 7-10) metoprolol 2021-08 Yes 100mg 100 mg, Uni vers tartrate - Oral, ity of (LOPRESSOR) 14:00: Q12H, [place] tablet 100 00 First dose Med ical mg on [facility] 07/07/22 at 0800, Until Discontinu ed, Routine metoprolol 2021-08- No 100mg 100 mg, [facility] tartrate 09-06-15 Oral, ity of (LOPRESSOR) 14:00: 00:06 Q12H, [place] tablet 100 00 :16 First dose Med ical mg on [place] [facility] 07/07/22 at 0800, Until Discontinu ed, Routine acetaminoph 2021-08 Yes 650mg 650 mg, Un [facility] en 09-06 Oral, ity of (TYLENOL) 10:20: Q6HPRN, [place] tablet 650 24 Starting Medic al mg on [facility] [facility] 07/07/22 at 0420, Until Discontinu ed, Routine, Pain (scale 1-3) acetaminoph 2021-08- No 650mg 650 mg, U nivers en 09-0615 Oral, ity of (TYLENOL) 10:20: 00:06 Q6HPRN, [place] tablet 650 24 :16 Starting Medic al mg on [place] [facility] 07/07/22 at 0420, Until 07/08/22 at 1806, Routine, Pain (scale 1-3) melatonin 2021-08 Yes 3mg 3 mg, Univers (MELATIN) 09-06 Oral, ity of tablet 3 mg 08:39: QHSPRN, [place] 39 Starting Medical on [facility] [facility] 07/07/22 at 0239, Until Discontinu ed, Routine, Insomnia melatonin 2021-08 No 3mg 3 mg, Univer s (MELATIN) 09-06 Oral, ity of tablet 3 mg 08:39: 00:06 QHSPRN, [place] 39 :16 Starting Medical on [facility] 07/07/22 at 0239, Until 07/08/22 at 1806, Routine, Insomnia ondansetron 2021-08 Yes 4mg 4 mg, Slow [facility] (ZOFRAN 13 IV Push, ity of (PF)) 08:39: Q6HPRN, [place] injection 4 13 Nausea and Me dical mg Vomiting Branch (N/V), Starting on [place] 07/07/22 at 0239
Do ses of ondansetro n 16 mg and above need to be administer ed via IV piggyback. For Dose >=24mg ECG monitoring is advisable.
ondansetron 2021-08 No 4mg 4 mg, Slow [facility] (ZOFRAN -07 07-15 IV Push, ity of (PF)) 08:39: 00:06 Q6HPRN, [place] injection 4 13 :16 Nausea and Me dical mg Vomiting Branch (N/V), Starting on 07/07/22 at 0239
Do ses of ondansetro n 16 mg and above need to be administer ed via IV piggyback. For Dose >=24mg ECG monitoring is advisable.
Sliding 2021-08 Yes Subcutaneo Univ ers Scale 1-13 us, TID ity of Insulin - 03:00: MEALS+HS, [place] Lispro 00 First dose Medical (HumaLOG) + on Sat Branch Fs 07/06/22 Testing at 2100, Until Discontinu ed, Routine Sliding 2021-08- No Subcutaneo Uni vers Scale 1-13 -15 us, TID ity of Insulin - 03:00: 00:06 MEALS+HS, [place] Lispro 00 :16 First dose Medical (HumaLOG) + on [facility] Branch [facility] 07/06/22 Testing at 2100, Until Discontinu ed, Routine pantoprazol 2021-08 Yes 40mg 40 mg, Univ ers e -13 Oral, ity of (PROTONIX) 02:45: DAILY, [place] EC tablet 00 First dose Medi zaina 40 mg on [facility] Branch 07/06/22 at 2044, Until Discontinu ed, Routine pantoprazol 2021-08- No 40mg 40 mg, Uni vers e 09-06 Oral, ity of (PROTONIX) 02:45: 00:06 DAILY, [facility] EC tablet 00 :16 First dose Medi zaina 40 mg on [facility] 07/06/22 at 2044, Until Discontinu ed, Routine morpHINE (2 2021-08- No 2mg 2 mg, Slow [facility] mg/mL) 09-06 IV Push, ity of injection 2 02:32: 14:06 Q6HPRN, [place] mg 54 :31 Starting Medical on [facility] 07/06/22 at 2031, Until 07/07/22 at 0806, Routine, Pain (scale 7-10) glucagon 2021-08 Yes 1mg 1 mg, Univers (GLUCAGEN 09-06 Intramuscu ity of DIAGNOSTIC 02:30: lar, PRN, [place] KIT) 41 Starting Medical injection 1 on [facility] Branch mg 07/06/22 at 2030, Until Discontinu ed, RADHA, Blood Glucose < or = 70 mg/dL and patient is unable to swallow or has mental changes. glucagon 2021-08 No 1mg 1 mg, Univers (GLUCAGEN 09-06 Intramuscu ity of DIAGNOSTIC 02:30: 00:06 [place], PRN, [place] KIT) 41 :16 Starting Medical injection 1 on [facility] Branch mg 07/06/22 at 2030, Until 07/08/22 at 1806, RADHA, Blood Glucose < or = 70 mg/dL and patient is unable to swallow or has mental changes. morpHINE (4 2021-08 No 4mg 4 mg, Slow [facility] mg/mL) 09-06 IV Push, ity of injection 4 00:45: 00:45 ONCE, 1 [place] mg 00 :00 dose, On Medical [facility] 07/06/22 at 1900, STAT iopamidol 2021-08 No [id number] 112mL 112 mL, Univers (ISOVUE 09-06 Intravenou ity o f 370-500 mL) 00:15: 23:19 s, ONCE, 1 [place] injection 00 :00 dose, On Medica l 112 mL [facility] 07/06/22 at 1815, Routine morpHINE (4 2021-08 No 4mg 4 mg, Slow [facility] mg/mL) 09-05 IV Push, ity of injection 4 22:15: 22:05 ONCE, 1 [place] mg 00 :00 dose, On Medical [facility] 07/06/22 at 1615, STAT nitroglycer 2021-08 Yes 5ug/min 5-200 [facility] in 50 mg in 1-12 mcg/min ity o f D5W 250 mL 21:57: (1.5-60 [place] infusion 30 mL/hr), IV Medic al RTU Infusion, Branch TITRATE, titrate to pain and systolic BP<140, Starting on [facility] 07/06/22 at 1557
In itiate infusion at 5 mcg/min.&n bsp; Titrate by 5 mcg/min every 3 minutes to 5 minutes as needed to achieve and maintain goal blood pressure. Maximum dose = 200 mcg/min. If goal not maintained at maximum allowed dose, contact prescriber .
nitroglycer 2021-08 No 5ug/min 5-200 U nivers in 50 mg in 09-05 11-15 mcg/min ity of D5W 250 mL 21:57: 00:06 (1.5-60 [place] infusion 30 :16 mL/hr), IV Medic al RTU Infusion, Branch TITRATE, titrate to pain and systolic BP<140, Starting on 07/06/22 at 1557
In itiate infusion at 5 mcg/min.&n bsp; Titrate by 5 mcg/min every 3 minutes to 5 minutes as needed to achieve and maintain goal blood pressure. Maximum dose = 200 mcg/min. If goal not maintained at maximum allowed dose, contact prescriber .
acetaminoph 2021-08 No 650mg 650 mg, U nivers en 09-05 Oral, ity of (TYLENOL) 21:02: 21:25 ONCE, 1 [place] tablet 650 00 :00 dose, On Medic al mg Sat Branch 07/06/22 at 1515, RADHA nitroglycer 2021-08 No .4mg 0.4 mg, [facility] in 09-05 Sublingual ity of (NITROSTAT) 19:55: 20:25 , Q5MIN [place] sublingual 06 :00 PRN, 3 Medical tablet 0.4 doses, Branch mg Starting on 07/06/22 at 1355, Until 07/06/22 at 1425, RADHA, Chest pain atorvastati 2021-0 Yes 80mg Take 1 Univ ers n 80 mg 04-25 tablet by ity of tablet 00:00: mouth in [place] 00 the Medical morning. Branch amLODIPine 2021-0 Yes 5mg Take 1 Unive rs 5 mg tablet 04-25 tablet by ity of 00:00: mouth in [place] 00 the Medical morning. Branch metoprolol 2021-0 Yes 100mg Take 1 Univ ers tartrate - tablet by ity of 100 mg 00:00: mouth [place] tablet 00 every 12 Medical (twelve) Branch hours. nitroglycer 2021-[id number] 1 [facility] in 0.4 mg 9-01 tablet ity of sublingual 00:00: under the [place] tablet 00 tongue Medical every 5 Branch (five) minutes as needed for Chest pain. fenofibrate 2022-0 Yes 67mg Take 1 Univ ers micronized 9-01 capsule by ity of 67 mg 00:00: mouth in [place] capsule 00 the Medical morning. Branch isosorbide 2022-0 Yes 120mg Take 1 Univ ers mononitrate 9-01 tablet by ity of 120 mg 24 00:00: mouth [place] hr tablet 00 the Medical morning. Branch lisinopriL 2022-0 Yes 5mg Take 1 Unive rs 5 mg tablet 9- tablet by ity of 00:00: mouth in [place] 00 the Medical morning. Branch rivaroxaban 2022-0 Yes 1358 20mg Take 1 Univ ers (XARELTO) 9-01 tablet by ity o f 20 mg 00:00: mouth in [place] tablet 00 the Medical morning. Branch Indication s: atrial fibrillati on atorvastati 2022-0 Yes 80mg Take 1 Univ ers n 80 mg 9- tablet by ity of tablet 00:00: mouth in [place] 00 the Medical morning. Branch amLODIPine 2022-0 Yes 5mg Take 1 Unive rs 5 mg tablet 9- tablet by ity of 00:00: mouth in [place] 00 the Medical morning. Branch metoprolol 2022-0 Yes 100mg Take 1 Univ ers tartrate 9-01 tablet by ity of 100 mg 00:00: mouth [place] tablet 00 every 12 Medical (twelve) Branch hours. nitroglycer 2022-[id number] 1 [facility] in 0.4 mg 9-01 tablet ity of sublingual 00:00: under the [place] tablet 00 tongue Medical every 5 Branch (five) minutes as needed for Chest pain. fenofibrate 2022-0 Yes 67mg Take 1 Univ ers micronized 9-01 capsule by ity of 67 mg 00:00: mouth in [place] capsule 00 the Medical morning. Branch isosorbide 2022-0 Yes 120mg Take 1 Univ ers mononitrate 9-01 tablet by ity of 120 mg 24 00:00: mouth [place] hr tablet 00 the Medical morning. Branch lisinopriL 2022-0 Yes 5mg Take 1 Unive rs 5 mg tablet 9-01 tablet by ity of 00:00: mouth in [place] 00 the Medical morning. Branch rivaroxaban Yes 1358 20mg Take 1 Univ ers (XARELTO) - tablet by ity o f 20 mg 00:00: mouth in [place] tablet 00 the Medical morning. Branch Indication s: atrial fibrillati on butalbital- Yes [id number] 1{tbl} Take 1 [facility] acetaminoph 04-25 tablet by ity of en-caff 00:00: mouth [place] 50-325-40 00 every 4 Medical mg tablet (four) Branch hours as needed (PADRON). insulin Yes [id number] 40U inject 40 Univers degludec 04-25 Units ity of (TRESIBA 00:00: under the [place] FLEXTOUCH 00 skin 2 Medical U-100) 100 (two) Branch unit/mL (3 times mL) InPn daily with meals. semaglutide Yes [id number] 1mg inject 1 Univers (OZEMPIC) 1 04-25 mg under ity of mg/dose (4 00:00: the skin [place] mg/3 mL) 00 weekly. Medical PnIj Branch metformin Yes [id number] 500mg Take 1 Univers ER 500 mg 04-25 tablet by ity o f 24 hr 00:00: mouth in [place] tablet 00 the Medical morning Branch and 1 tablet in the evening. doxepin 10 Yes [id number] 10mg Take 1 Un [facility] mg capsule 04-25 capsule by ity of 00:00: mouth at [place] 00 bedtime. Medical Branch traZODone Yes [id number] 50mg Take 1 Uni vers 50 mg 04-25 tablet by ity of tablet 00:00: mouth at [place] 00 bedtime. Medical Branch fluticasone Yes [id number] 1{spray Use 1 [facility] propionate 04-25 } [place] in ity o f 50 00:00: each [place] mcg/actuati 00 nostril in Fl dical on nasal the Branch spray morning. Diclofenac Yes [id number] Apply to Univers Sodium 04-25 103 area(s) 4 ity of (VOLTAREN) 00:00: (four) [place] 1 % gel 00 times Medical daily. Branch Apply 4 g QID on affected areas Lidocaine 5 Yes [id number] Apply to Univers % cream 04-25 103 area(s) 2 ity of 00:00: (two) [place] 00 times Medical daily as Branch needed for Pain (scale 4-6). Apply 5g to affected areas BID PRN atorvastati Yes 80mg Take 1 Univ ers n 80 mg 04-25 tablet by ity of tablet 00:00: mouth in [place] 00 the Medical morning. Branch metoprolol Yes 100mg Take 1 Univ ers tartrate 04-25 tablet by ity of 100 mg 00:00: mouth [place] tablet 00 every 12 Medical (twelve) Branch hours. nitroglycer Yes [id number] .4mg Place 1 [facility] in 0.4 mg 04-25 tablet ity of sublingual 00:00: under the [place] tablet 00 tongue Medical every 5 Branch (five) minutes as needed for Chest pain. lisinopriL Yes 5mg Take 1 Unive rs 5 mg tablet 04-25 tablet by ity of 00:00: mouth in [place] 00 the Medical morning. Branch insulin Yes [id number] 40U inject 40 [facility] degludec 04-25 Units ity of (TRESIBA 00:00: under the [place] FLEXTOUCH 00 skin 2 Medical U-100) 100 (two) Branch unit/mL (3 times mL) InPn daily with meals. semaglutide Yes [id number] 1mg inject 1 Univers (OZEMPIC) 1 - mg under ity of mg/dose (4 00:00: the skin [place] mg/3 mL) 00 weekly. Medical PnIj Branch metformin Yes [id number] 500mg Take 1 [facility] ER 500 mg 04-25 tablet by ity o f 24 hr 00:00: mouth in [place] tablet 00 the Medical morning Branch and 1 tablet in the evening. doxepin 10 0 Yes [id number] 10mg Take 1 Un [facility] mg capsule 04-25 capsule by ity of 00:00: mouth at [place] 00 bedtime. Medical Branch fluticasone 0 Yes [id number] 1{spray Use 1 [facility] propionate 04-25 } [place] in ity o f 50 00:00: each [place] mcg/actuati 00 nostril in Me dical on nasal the Branch spray morning. Diclofenac 0 Yes [id number] Apply to Univers Sodium 04-25 103 area(s) 4 ity of (VOLTAREN) 00:00: (four) [place] 1 % gel 00 times Medical daily. Branch Apply 4 g QID on affected areas Lidocaine 5 0 Yes [id number] Apply to Univers % cream 04-25 103 area(s) 2 ity of 00:00: (two) [place] 00 times Medical daily as Branch needed for Pain (scale 4-6). Apply 5g to affected areas BID PRN atorvastati 0 Yes 80mg Take 1 Univ ers n 80 mg 04-25 tablet by ity of tablet 00:00: mouth in [place] 00 the Medical morning. Branch metoprolol Yes 100mg Take 1 Univ ers tartrate 04-25 tablet by ity of 100 mg 00:00: mouth [place] tablet 00 every 12 Medical (twelve) Branch hours. nitroglycer Yes [id number] .4mg Place 1 [facility] in 0.4 mg 04-25 tablet ity of sublingual 00:00: under the [place] tablet 00 tongue Medical every 5 Branch (five) minutes as needed for Chest pain. lisinopriL Yes 5mg Take 1 Unive rs 5 mg tablet 04-25 tablet by ity of 00:00: mouth in [place] 00 the Medical morning. Branch insulin Yes [id number] 40U inject 40 [facility] degludec 04-25 Units ity of (TRESIBA 00:00: under the [place] FLEXTOUCH 00 skin 2 Medical U-100) 100 (two) Branch unit/mL (3 times mL) InPn daily with meals. semaglutide Yes [id number] 1mg inject 1 Univers (OZEMPIC) 1 - mg under ity of mg/dose (4 00:00: the skin [place] mg/3 mL) 00 weekly. Medical PnIj Branch metformin 0 Yes [id number] 500mg Take 1 [facility] ER 500 mg 04-25 tablet by ity o f 24 hr 00:00: mouth in [place] tablet 00 the Medical morning Branch and 1 tablet in the evening. doxepin 10 0 Yes [id number] 10mg Take 1 Un [facility] mg capsule 04-25 capsule by ity of 00:00: mouth at [place] 00 bedtime. Medical Branch fluticasone Yes [id number] 1{spray Use 1 [facility] propionate 04-25 } [place] in ity o f 50 00:00: each [place] mcg/actuati 00 nostril in Me dical on nasal the Branch spray morning. Diclofenac Yes [id number] Apply to Univers Sodium 04-25 103 area(s) 4 ity of (VOLTAREN) 00:00: (four) [place] 1 % gel 00 times Medical daily. Branch Apply 4 g QID on affected areas Lidocaine 5 Yes [id number] Apply to Univers % cream 04-25 103 area(s) 2 ity of 00:00: (two) [place] 00 times Medical daily as Branch needed for Pain (scale 4-6). Apply 5g to affected areas BID PRN atorvastati Yes 80mg Take 1 Univ ers n 80 mg 04-25 tablet by ity of tablet 00:00: mouth in [place] 00 the Medical morning. Branch metoprolol Yes 100mg Take 1 Univ ers tartrate 04-25 tablet by ity of 100 mg 00:00: mouth [place] tablet 00 every 12 Medical (twelve) Branch hours. nitroglycer Yes [id number] .4mg Place 1 [facility] in 0.4 mg 04-25 tablet ity of sublingual 00:00: under the [place] tablet 00 tongue Medical every 5 Branch (five) minutes as needed for Chest pain. lisinopriL 0 Yes 5mg Take 1 Unive rs 5 mg tablet 04-25 tablet by ity of 00:00: mouth in [place] 00 the Medical morning. Branch insulin 0 Yes [id number] 40U inject 40 [facility] degludec 04-25 Units ity of (TRESIBA 00:00: under the [place] FLEXTOUCH 00 skin 2 Medical U-100) 100 (two) Branch unit/mL (3 times mL) InPn daily with meals. semaglutide 0 Yes [id number] 1mg inject 1 Univers (OZEMPIC) 1 - mg under ity of mg/dose (4 00:00: the skin [place] mg/3 mL) 00 weekly. Medical PnIj Branch metformin Yes [id number] 500mg Take 1 [facility] ER 500 mg 04-25 tablet by ity o f 24 hr 00:00: mouth in [place] tablet 00 the Medical morning Branch and 1 tablet in the evening. doxepin 10 Yes [id number] 10mg Take 1 Un [facility] mg capsule 04-25 capsule by ity of 00:00: mouth at [place] 00 bedtime. Medical Branch fluticasone Yes [id number] 1{spray Use 1 [facility] propionate 04-25 } [place] in ity o f 50 00:00: each [place] mcg/actuati 00 nostril in Fl dical on nasal the Branch spray morning. Diclofenac Yes [id number] Apply to Univers Sodium 04-25 103 area(s) 4 ity of (VOLTAREN) 00:00: (four) [place] 1 % gel 00 times Medical daily. Branch Apply 4 g QID on affected areas Lidocaine 5 Yes [id number] Apply to Univers % cream 04-25 103 area(s) 2 ity of 00:00: (two) [place] 00 times Medical daily as Branch needed for Pain (scale 4-6). Apply 5g to affected areas BID PRN atorvastati Yes 80mg Take 1 Univ ers n 80 mg 04-25 tablet by ity of tablet 00:00: mouth in [place] 00 the Medical morning. Branch metoprolol Yes 100mg Take 1 Univ ers tartrate 04-25 tablet by ity of 100 mg 00:00: mouth [place] tablet 00 every 12 Medical (twelve) Branch hours. nitroglycer Yes [id number] .4mg Place 1 [facility] in 0.4 mg 04-25 tablet ity of sublingual 00:00: under the [place] tablet 00 tongue Medical every 5 Branch (five) minutes as needed for Chest pain. lisinopriL 0 Yes 5mg Take 1 Unive rs 5 mg tablet 04-25 tablet by ity of 00:00: mouth in [place] 00 the Medical morning. Branch insulin Yes [id number] 40U inject 40 [facility] degludec 04-25 Units ity of (TRESIBA 00:00: under the [place] FLEXTOUCH 00 skin 2 Medical U-100) 100 (two) Branch unit/mL (3 times mL) InPn daily with meals. semaglutide 0 Yes [id number] 1mg inject 1 Univers (OZEMPIC) 1 9- mg under ity of mg/dose (4 00:00: the skin [place] mg/3 mL) 00 weekly. Medical PnIj Branch metformin 0 Yes [id number] 500mg Take 1 [facility] ER 500 mg 04-25 tablet by ity o f 24 hr 00:00: mouth in [place] tablet 00 the Medical morning Branch and 1 tablet in the evening. doxepin 10 0 Yes [id number] 10mg Take 1 Un [facility] mg capsule 04-25 capsule by ity of 00:00: mouth at [place] 00 bedtime. Medical Branch fluticasone 0 Yes [id number] 1{spray Use 1 [facility] propionate 04-25 } [place] in ity o f 50 00:00: each [place] mcg/actuati 00 nostril in Fl dical on nasal the Branch spray morning. Diclofenac 0 Yes [id number] Apply to [facility] Sodium 04-25 103 area(s) 4 ity of (VOLTAREN) 00:00: (four) [place] 1 % gel 00 times Medical daily. Branch Apply 4 g QID on affected areas Lidocaine 5 0 Yes [id number] Apply to [facility] % cream 04-25 103 area(s) 2 ity of 00:00: (two) [place] 00 times Medical daily as Branch needed for Pain (scale 4-6). Apply 5g to affected areas BID PRN atorvastati 0 Yes 80mg Take 1 Univ ers n 80 mg 04-25 tablet by ity of tablet 00:00: mouth in [place] 00 the Medical morning. Branch metoprolol 0 Yes 100mg Take 1 Univ ers tartrate 04-25 tablet by ity of 100 mg 00:00: mouth [place] tablet 00 every 12 Medical (twelve) Branch hours. nitroglycer 2021-[id number] 1 [facility] in 0.4 mg 04-25 tablet ity of sublingual 00:00: under the [place] tablet 00 tongue Medical every 5 Branch (five) minutes as needed for Chest pain. lisinopriL 2021-0 Yes 5mg Take 1 Unive rs 5 mg tablet 04-25 tablet by ity of 00:00: mouth in [place] 00 the Medical morning. Branch insulin Yes [id number] 40U inject 40 [facility] degludec 9- Units ity of (TRESIBA 00:00: [place] FLEXTOUCH 00 skin 2 Medical U-100) 100 (two) Branch unit/mL (3 times mL) InPn daily with meals. semaglutide Yes [id number] 1mg inject 1 Univers (OZEMPIC) 1 04-25 mg under ity of mg/dose (4 00:00: the skin [place] as mg/3 mL) 00 weekly. Medical PnIj Branch metformin Yes [id number] 500mg Take 1 Univers ER 500 mg 04-25 tablet by ity o f 24 hr 00:00: mouth in [place] tablet 00 the Medical morning Branch and 1 tablet in the evening. doxepin 10 Yes [id number] 10mg Take 1 Un lizbeth mg capsule 04-25 capsule by ity of 00:00: mouth at [place] 00 bedtime. Medical Branch fluticasone Yes [id number] 1{spray Use 1 [facility] propionate 04-25 } Sturdivant in ity o f 50 00:00: each [place] mcg/actuati 00 nostril in Fl dical on nasal the Branch spray morning. Diclofenac Yes [id number] Apply to Univers Sodium 04-25 103 area(s) 4 ity of (VOLTAREN) 00:00: (four) [place] 1 % gel 00 times Medical daily. Branch Apply 4 g QID on affected areas Lidocaine 5 Yes [id number] Apply to Univers % cream 04-25 103 area(s) 2 ity of 00:00: (two) [place] 00 times Medical daily as Branch needed for Pain (scale 4-6). Apply 5g to affected areas BID PRN atorvastati 0 Yes 80mg Take 1 Univ ers n 80 mg 04-25 tablet by ity of tablet 00:00: mouth in [place] 00 the Medical morning. Branch metoprolol Yes 100mg Take 1 Univ ers tartrate - tablet by ity of 100 mg 00:00: mouth [place] tablet 00 every 12 Medical (twelve) Branch hours. nitroglycer [id number] 1 [facility] in 0.4 mg 9-01 tablet ity of sublingual 00:00: under the [place] tablet 00 tongue Medical every 5 Branch (five) minutes as needed for Chest pain. lisinopriL Yes 5mg Take 1 Unive rs 5 mg tablet 04-25 tablet by ity of 00:00: mouth in [place] 00 the Medical morning. Branch insulin Yes [id number] 40U inject 40 [facility] degludec 04-25 Units ity of (TRESIBA 00:00: [place] FLEXTOUCH 00 skin 2 Medical U-100) 100 (two) Branch unit/mL (3 times mL) InPn daily with meals. semaglutide Yes [id number] 1mg inject 1 [facility] (OZEMPIC) 1 04-25 mg under ity of mg/dose (4 00:00: the skin [place] as mg/3 mL) 00 weekly. Medical PnIj Branch metformin Yes [id number] 500mg Take 1 [facility] ER 500 mg 04-25 tablet by ity o f 24 hr 00:00: mouth in [place] tablet 00 the Medical morning Branch and 1 tablet in the evening. doxepin 10 Yes [id number] 10mg Take 1 Un l[place]beth mg capsule 04-25 capsule by ity of 00:00: mouth at [place] 00 bedtime. Medical Branch fluticasone Yes [id number] 1{spray Use 1 [facility] propionate 04-25 } [place] in ity o f 50 00:00: each [place] mcg/actuati 00 nostril in Fl dical on nasal the Branch spray morning. Diclofenac Yes [id number] Apply to Univers Sodium 04-25 103 area(s) 4 ity of (VOLTAREN) 00:00: (four) [place] 1 % gel 00 times Medical daily. Branch Apply 4 g QID on affected areas Lidocaine 5 Yes [id number] Apply to [facility] % cream 04-25 103 area(s) 2 ity of 00:00: (two) [place] 00 times Medical daily as Branch needed for Pain (scale 4-6). Apply 5g to affected areas BID PRN atorvastati Yes 80mg Take 1 Univ ers n 80 mg 04-25 tablet by ity of tablet 00:00: mouth in [place] 00 the Medical morning. Branch metoprolol 0 Yes 100mg Take 1 Univ ers tartrate 04-25 tablet by ity of 100 mg 00:00: mouth [place] tablet 00 every 12 Medical (twelve) Branch hours. nitroglycer [id number] 1 [facility] in 0.4 mg 04-25 tablet ity of sublingual 00:00: under the [place] tablet 00 tongue Medical every 5 Branch (five) minutes as needed for Chest pain. lisinopriL 0 Yes 5mg Take 1 Unive rs 5 mg tablet 04-25 tablet by ity of 00:00: mouth in [place] 00 the Medical morning. Branch insulin Yes [id number] 40U inject 40 [facility] degludec 04-25 Units ity of (TRESIBA 00:00: [place] FLEXTOUCH 00 skin 2 Medical U-100) 100 (two) Branch unit/mL (3 times mL) InPn daily with meals. semaglutide Yes [id number] 1mg inject 1 [facility] (OZEMPIC) 1 04-25 mg under ity of mg/dose (4 00:00: the skin [place] mg/3 mL) 00 weekly. Medical PnIj Branch metformin Yes [id number] 500mg Take 1 [facility] ER 500 mg 04-25 tablet by ity o f 24 hr 00:00: mouth in [place] tablet 00 the Medical morning Branch and 1 tablet in the evening. doxepin 10 Yes [id number] 10mg Take 1 Un lizbeth mg capsule 04-25 capsule by ity of 00:00: mouth at [place] 00 bedtime. Medical Branch fluticasone Yes [id number] 1{spray Use 1 [facility] propionate 04-25 } Sturdivant in ity o f 50 00:00: each [place] mcg/actuati 00 nostril in Me dical on nasal the Branch spray morning. Diclofenac 0 Yes [id number] Apply to [facility] Sodium 04-25 103 area(s) 4 ity of (VOLTAREN) 00:00: (four) [place] 1 % gel 00 times Medical daily. Branch Apply 4 g QID on affected areas Lidocaine 5 0 Yes [id number] Apply to [facility] % cream 04-25 103 area(s) 2 ity of 00:00: (two) [place] 00 times Medical daily as Branch needed for Pain (scale 4-6). Apply 5g to affected areas BID PRN atorvastati Yes 80mg Take 1 Univ ers n 80 mg 04-25 tablet by ity of tablet 00:00: mouth in [place] 00 the Medical morning. Branch metoprolol Yes 100mg Take 1 Univ ers tartrate 04-25 tablet by ity of 100 mg 00:00: mouth [place] tablet 00 every 12 Medical (twelve) Branch hours. nitroglycer Yes [id number] .4mg Place 1 [facility] in 0.4 mg 04-25 tablet ity of sublingual 00:00: under the [place] tablet 00 tongue Medical every 5 Branch (five) minutes as needed for Chest pain. lisinopriL Yes 5mg Take 1 Unive rs 5 mg tablet 04-25 tablet by ity of 00:00: mouth in [place] 00 the Medical morning. Branch insulin Yes [id number] 40U inject 40 [facility] degludec 04-25 Units ity of (TRESIBA 00:00: [place] FLEXTOUCH 00 skin 2 Medical U-100) 100 (two) Branch unit/mL (3 times mL) InPn daily with meals. semaglutide Yes [id number] 1mg inject 1 [facility] (OZEMPIC) 1 04-25 mg under ity of mg/dose (4 00:00: the skin [place] mg/3 mL) 00 weekly. Medical PnIj Branch metformin Yes [id number] 500mg Take 1 [facility] ER 500 mg 04-25 tablet by ity o f 24 hr 00:00: mouth in [place] tablet 00 the Medical morning Branch and 1 tablet in the evening. doxepin 10 Yes [id number] 10mg Take 1 Un lizbeth mg capsule 04-25 capsule by ity of 00:00: mouth at [place] 00 bedtime. Medical Branch fluticasone Yes [id number] 1{spray Use 1 [facility] propionate 04-25 } Sturdiv[place] in ity o f 50 00:00: each [place] mcg/actuati 00 nostril in Fl dical on nasal the Branch spray morning. Diclofenac Yes [id number] Apply to [facility] Sodium 04-25 103 area(s) 4 ity of (VOLTAREN) 00:00: (four) [place] 1 % gel 00 times Medical daily. Branch Apply 4 g QID on affected areas Lidocaine 5 0 Yes [id number] Apply to [facility] % cream 04-25 103 area(s) 2 ity of 00:00: (two) [place] 00 times Medical daily as Branch needed for Pain (scale 4-6). Apply 5g to affected areas BID PRN atorvastati Yes 80mg Take 1 Univ ers n 80 mg 04-25 tablet by ity of tablet 00:00: mouth in [place] 00 the Medical morning. Branch metoprolol Yes 100mg Take 1 Univ ers tartrate 04-25 tablet by ity of 100 mg 00:00: mouth [place] tablet 00 every 12 Medical (twelve) Branch hours. nitroglycer Yes [id number] .4mg Place 1 [facility] in 0.4 mg 04-25 tablet ity of sublingual 00:00: under the [place] tablet 00 tongue Medical every 5 Branch (five) minutes as needed for Chest pain. lisinopriL Yes 5mg Take 1 Unive rs 5 mg tablet 04-25 tablet by ity of 00:00: mouth in [place] 00 the Medical morning. Branch insulin Yes [id number] 40U inject 40 [facility] degludec 04-25 Units ity of (TRESIBA 00:00: [place] FLEXTOUCH 00 skin 2 Medical U-100) 100 (two) Branch unit/mL (3 times mL) InPn daily with meals. semaglutide Yes [id number] 1mg inject 1 [facility] (OZEMPIC) 1 04-25 mg under ity of mg/dose (4 00:00: the skin [place] mg/3 mL) 00 weekly. Medical PnIj Branch metformin 0 Yes [id number] 500mg Take 1 [facility] ER 500 mg 04-25 tablet by ity o f 24 hr 00:00: mouth in [place] tablet 00 the Medical morning Branch and 1 tablet in the evening. doxepin 10 0 Yes [id number] 10mg Take 1 Un lizbeth mg capsule 04-25 capsule by ity of 00:00: mouth at [place] 00 bedtime. Medical Branch fluticasone Yes [id number] 1{spray Use 1 [facility] propionate 04-25 } Sturdiv[place] in ity o f 50 00:00: each [place] mcg/actuati 00 nostril in Fl dical on nasal the Branch spray morning. Diclofenac Yes [id number] Apply to [facility] Sodium 04-25 103 area(s) 4 ity of (VOLTAREN) 00:00: (four) [place] 1 % gel 00 times Medical daily. Branch Apply 4 g QID on affected areas Lidocaine 5 Yes [id number] Apply to [facility] % cream 04-25 103 area(s) 2 ity of 00:00: (two) [place] 00 times Medical daily as Branch needed for Pain (scale 4-6). Apply 5g to affected areas BID PRN atorvastati Yes 80mg Take 1 Univ ers n 80 mg 04-25 tablet by ity of tablet 00:00: mouth in [place] 00 the Medical morning. Branch metoprolol Yes 100mg Take 1 Univ ers tartrate 04-25 tablet by ity of 100 mg 00:00: mouth [place] tablet 00 every 12 Medical (twelve) Branch hours. nitroglycer Yes [id number] .4mg Place 1 [facility] in 0.4 mg 04-25 tablet ity of sublingual 00:00: under the [place] tablet 00 tongue Medical every 5 Branch (five) minutes as needed for Chest pain. lisinopriL Yes 5mg Take 1 Unive rs 5 mg tablet 04-25 tablet by ity of 00:00: mouth in [place] 00 the Medical morning. Branch insulin Yes [id number] 40U inject 40 [facility] degludec 04-25 Units ity of (TRESIBA 00:00: [place] FLEXTOUCH 00 skin 2 Medical U-100) 100 (two) Branch unit/mL (3 times mL) InPn daily with meals. semaglutide Yes [id number] 1mg inject 1 [facility] (OZEMPIC) 1 04-25 mg under ity of mg/dose (4 00:00: the skin [place] mg/3 mL) 00 weekly. Medical PnIj Branch metformin Yes [id number] 500mg Take 1 [facility] ER 500 mg 04-25 tablet by ity o f 24 hr 00:00: mouth in [place] tablet 00 the Medical morning Branch and 1 tablet in the evening. doxepin 10 Yes [id number] 10mg Take 1 Un lizbeth mg capsule 04-25 capsule by ity of 00:00: mouth at [place] 00 bedtime. Medical Branch fluticasone Yes [id number] 1{spray Use 1 [facility] propionate 04-25 } Sturdiv[place] in ity o f 50 00:00: each [place] mcg/actuati 00 nostril in Fl dical on nasal the Branch spray morning. Diclofenac Yes [id number] Apply to [facility] Sodium 04-25 103 area(s) 4 ity of (VOLTAREN) 00:00: (four) [place] 1 % gel 00 times Medical daily. Branch Apply 4 g QID on affected areas Lidocaine 5 Yes [id number] Apply to [facility] % cream 04-25 103 area(s) 2 ity of 00:00: (two) [place] 00 times Medical daily as Branch needed for Pain (scale 4-6). Apply 5g to affected areas BID PRN rivaroxaban 2021- No [id number] 20mg Take 1 Uni vers 20 mg 04-25 tablet by ity of tablet 00:00: 00:00 mouth in [place] 00 :00 the Medical morning. Branch Indication s: atrial fibrillati on rivaroxaban 2021- No [id number] 20mg Take 1 Uni vers 20 mg 04-25 tablet by ity of tablet 00:00: 00:00 mouth in [place] 00 :00 the Medical morning. Branch Indication s: atrial fibrillati on amLODIPine 2021- No 5mg Take 1 Univ ers 5 mg tablet 04-25 tablet by it y of 00:00: 00:00 mouth in [place] 00 :00 the Medical morning. Branch fenofibrate 2021- No 67mg Take 1 Uni vers micronized 04-25 capsule by it y of 67 mg 00:00: 00:00 mouth in [place] capsule 00 :00 the Medical morning. Branch isosorbide 2021- No 120mg Take 1 Uni vers mononitrate 04-25 tablet by it y of 120 mg 24 00:00: 00:00 mouth in [facility] as hr tablet 00 :00 the Medical morning. Branch butalbital- 2021- No [id number] 1{tbl} Take 1 [facility] acetaminoph 04-25 tablet by it y of en-caff 00:00: 00:00 mouth [place] 50-325-40 00 :00 every 4 Medical mg tablet (four) Branch hours as needed (PADRON). traZODone 2021-2021- No [id number] 50mg Take 1 Un lizbeth 50 mg 04-25 tablet by ity of tablet 00:00: 00:00 mouth at [place] 00 :00 bedtime. Medical Branch amLODIPine 2021- No 5mg Take 1 Univ ers 5 mg tablet 04-25 tablet by it y of 00:00: 00:00 mouth in [place] 00 :00 the Medical morning. Branch fenofibrate 2021- No 67mg Take 1 Uni vers micronized 04-25 capsule by it y of 67 mg 00:00: 00:00 mouth in [place] capsule 00 :00 the Medical morning. Branch isosorbide 2021- No 120mg Take 1 Uni vers mononitrate 04-25 tablet by it y of 120 mg 24 00:00: 00:00 mouth in [place] as hr tablet 00 :00 the Medical morning. Branch butalbital- 2021- No [id number] 1{tbl} Take 1 [facility] acetaminoph 04-25 tablet by it y of en-caff 00:00: 00:00 mouth [place] 50-325-40 00 :00 every 4 Medical mg tablet (four) Branch hours as needed (PADRON). traZODone 2021- No [id number] 50mg Take 1 Un lizbeth 50 mg 04-25 tablet by ity of tablet 00:00: 00:00 mouth at [place] 00 :00 bedtime. Medical Branch amLODIPine 2021- No [id number] 5mg Take 1 U nivers 5 mg tablet 09-06 tablet by it y of 00:00: 00:00 mouth [place] 00 :00 daily. Medical Branch atorvastati 2021- No [id number] 80mg Take 1 Univers n 80 mg 09-06 tablet by ity of tablet 00:00: 00:00 mouth [place] 00 :00 daily. Medical Branch metoprolol 2021- No [id number] 100mg Take 1 [facility] tartrate 09-06 tablet by ity o f 100 mg 00:00: 00:00 mouth [place] tablet 00 :00 every 12 Medical (twelve) Branch hours. nitroglycer 2021- No [id number] .4mg Place 1 [facility] in 0.4 mg 09-06 tablet ity of sublingual 00:00: 00:00 under the [place] tablet 00 :00 tongue Medical every 5 Branch (five) minutes as needed for Chest pain. aspirin 81 Yes [id number] 81mg Take 1 Un lizbeth mg chewable 5-25 tablet by ity of tablet 00:00: mouth [place] 00 daily. Medical Branch DULoxetine Yes [id number] 30mg Take 1 U nivers (CYMBALTA) 5-25 capsule by ity of 30 mg 00:00: mouth [place] capsule 00 daily. Medical Branch aspirin 81 Yes [id number] 81mg Take 1 Un l[place]beth mg chewable 5-25 tablet by ity of tablet 00:00: mouth [place] 00 daily. Medical Branch DULoxetine Yes [id number] 30mg Take 1 U nivers (CYMBALTA) 5-25 capsule by ity of 30 mg 00:00: mouth [place] capsule 00 daily. Medical Branch aspirin 81 2021- No [id number] 81mg Take 1 U nivers mg chewable 5-25 11-12 tablet by it y of tablet 00:00: 00:00 mouth [place] 00 :00 daily. Medical Branch DULoxetine 2021- No [id number] 30mg Take 1 Univers (CYMBALTA) 5-25 11-12 capsule by it y of 30 mg 00:00: 00:00 mouth [place] capsule 00 :00 daily. Medical Branch aspirin 81 2021- No [id number] 81mg Take 1 U nivers mg chewable 5-25 11-12 tablet by it y of tablet 00:00: 00:00 mouth [place] 00 :00 daily. Medical Branch DULoxetine 2021- No [id number] 30mg Take 1 Univers (CYMBALTA) 5-25 11-12 capsule by it y of 30 mg 00:00: 00:00 mouth [place] capsule 00 :00 daily. Medical Branch clopidogreL 2021- No [id number] 75mg Take 1 [facility] 75 mg 01-16 tablet by ity of tablet 00:00: 00:00 mouth [place] 00 :00 daily. Medical Branch fenofibrate 2021- No [id number] 67mg Take 1 [facility] micronized 01-16 capsule by it y of 67 mg 00:00: 00:00 mouth [place] capsule 00 :00 daily. Medical Branch isosorbide 2021- No [id number] 120mg Take 1 [facility] mononitrate 01-16 tablet by it y of 120 mg 24 00:00: 00:00 mouth [place] hr tablet 00 :00 daily. Medical Branch lisinopriL 2021- No [id number] 5mg Take 1 U nivers 5 mg tablet 01-16 tablet by it y of 00:00: 00:00 mouth [place] 00 :00 daily. Medical Branch SANTYL 2017-08 Yes APPLY Methodi ointment 2-[address] [facility] 00 l metoprolol 2017-08 Yes 50mg Q.5D Take 50 mg M ethodi succinate 1-[address] XL 08:56: (two) Hospita (TOPROL-XL) 11 times a l 50 mg 24 hr day. tablet dextroamphe 2017-08 Yes 20mg Q.5D Take 20 mg Methodi tamine-amph 1-[address] etamine 08:56: (two) Hospita (ADDERALL) 11 times a l 20 mg day. tablet gabapentin 2017-08 Yes 300mg Q.[id number] Take 300 Methodi (NEURONTIN) 1-27 [id number] mg by s t 300 mg 08:56: 3D mouth 3 [facility]osp[facility] capsule 11 (three) l times a day. ibuprofen 2017-08 Yes 600mg Q8H Take 600 Met hodi (ADVIL,MOTR 1-[address] IN) 600 MG 08:56: mouth Hospit a tablet 11 every 8 l (eight) hours as needed for mild pain. naproxen 2017-08 Yes 220mg Q8H Take 220 Meth rosi sodium 1-[address] (ALEVE) 220 08:56: mouth Hospi ta MG tablet 11 every 8 l (eight) hours as needed for mild pain. metFORMIN 2017-08 Yes 500mg Q.5D Take 500 Met hodi (GLUCOPHAGE 1-[address] ) 500 mg 08:56: mouth 2 Hospit a tablet 11 (two) l times a day with meals. collagenase 2017-08 Yes Apply to Fl thodi (SANTYL) 1-[address] ointment 00:00: daily with Hos ivelisse 00 wet to dry l dressing Immunizations Ordered Filled Immunization Date Status Comments [facility] e Immunization Name Name Influenza Virus 2022-07-08 Completed Universit y of Vaccine Quad IM, 00:00:00 [place] Me dical Preserv and ABX Branch Free 6 MO-64 YRS Influenza Virus 2022-07-08 Completed Universit y of Vaccine Quad IM, 00:00:00 [facility] dical Preserv and ABX Branch Free 6 MO-64 YRS Influenza Virus 2022-07-08 Completed Universit y of Vaccine Quad IM, 00:00:00 [place] Me dical Preserv and ABX Branch Free 6 MO-64 YRS Influenza Virus 2022-07-08 Completed Universit y of Vaccine Quad IM, 00:00:00 [place] Me dical Preserv and ABX Branch Free 6 MO-64 YRS Influenza Virus 2022-07-08 Completed Universit y of Vaccine Quad IM, 00:00:00 [facility] dical Preserv and ABX Branch Free 6 MO-64 YRS Influenza Virus 2022-07-08 Completed Universit y of Vaccine Quad IM, 00:00:00 [facility] dical Preserv and ABX Branch Free 6 MO-64 YRS Influenza Virus 2022-07-08 Completed Universit y of Vaccine Quad IM, 00:00:00 [place] Me dical Preserv and ABX Branch Free 6 MO-64 YRS Influenza Virus 2022-07-08 Completed Universit y of Vaccine Quad IM, 00:00:00 [place] Me dical Preserv and ABX Branch Free 6 MO-64 YRS Influenza Virus 2022-07-08 Completed Universit y of Vaccine Quad IM, 00:00:00 [place] Me dical Preserv and ABX Branch Free 6 MO-64 YRS Influenza Virus 2022-07-08 Completed Universit y of Vaccine Quad IM, 00:00:00 [place] Me dical Preserv and ABX Branch Free 6 MO-64 YRS Pneumococcal 2020-05-28 Completed University o f Polysaccharide, 00:00:00 [place] Med ical PPSV23 (PNEUMOVAX) Branch Influenza Virus 2020-05-28 Completed Universit y of Vaccine Quad .5 mL 00:00:00 [facility] 6+ MO Branch Pneumococcal 2020-05-28 Completed University o f Polysaccharide, 00:00:00 [place] Med ical PPSV23 (PNEUMOVAX) Branch Influenza Virus 2020-05-28 Completed Universit y of Vaccine Quad .5 mL 00:00:00 [facility] 6+ MO Branch Pneumococcal 2020-05-28 Completed University o f Polysaccharide, 00:00:00 [place] Med ical PPSV23 (PNEUMOVAX) Branch Influenza Virus 2020-05-28 Completed Universit y of Vaccine Quad .5 mL 00:00:00 [facility] 6+ MO Branch Pneumococcal 2020-05-28 Completed University o f Polysaccharide, 00:00:00 [place] Med ical PPSV23 (PNEUMOVAX) Branch Influenza Virus 2020-05-28 Completed Universit y of Vaccine Quad .5 mL 00:00:00 [facility] 6+ MO Branch Pneumococcal 2020-05-28 Completed University o f Polysaccharide, 00:00:00 [place] Med ical PPSV23 (PNEUMOVAX) Branch Influenza Virus 2020-05-28 Completed Universit y of Vaccine Quad .5 mL 00:00:00 [facility] 6+ MO Branch Pneumococcal 2020-05-28 Completed University o f Polysaccharide, 00:00:00 [place] Med ical PPSV23 (PNEUMOVAX) Branch Influenza Virus 2020-05-28 Completed Universit y of Vaccine Quad .5 mL 00:00:00 [facility] 6+ MO Branch Pneumococcal 2020-05-28 Completed University o f Polysaccharide, 00:00:00 [place] Med ical PPSV23 (PNEUMOVAX) Branch Influenza Virus 2020-05-28 Completed Universit y of Vaccine Quad .5 mL 00:00:00 [facility] 6+ MO Branch Pneumococcal 2020-05-28 Completed University o f Polysaccharide, 00:00:00 [place] Med ical PPSV23 (PNEUMOVAX) Branch Influenza Virus 2020-05-28 Completed Universit y of Vaccine Quad .5 mL 00:00:00 [facility] 6+ MO Branch Pneumococcal 2020-05-28 Completed University o f Polysaccharide, 00:00:00 [place] Med ical PPSV23 (PNEUMOVAX) Branch Influenza Virus 2020-05-28 Completed Universit y of Vaccine Quad .5 mL 00:00:00 [place] [facility] IM 6+ MO Branch Pneumococcal 2020-05-28 Completed University o f Polysaccharide, 00:00:00 [place] Med ical PPSV23 (PNEUMOVAX) Branch Influenza Virus 2020-05-28 Completed Universit y of Vaccine Quad .5 mL 00:00:00 [place] Medical IM 6+ MO Branch Pneumococcal 2020-05-28 Completed University o f Polysaccharide, 00:00:00 [place] Med ical PPSV23 (PNEUMOVAX) Branch Influenza Virus 2020-05-28 Completed Universit y of Vaccine Quad .5 mL 00:00:00 [facility] IM 6+ MO Branch Pneumococcal 2020-05-28 Completed University o f Polysaccharide, 00:00:00 [place] Med ical PPSV23 (PNEUMOVAX) Branch Influenza Virus 2020-05-28 Completed Universit y of Vaccine Quad .5 mL 00:00:00 [facility] IM 6+ MO Branch Td 2018-06-12 Completed University of 00:00:00 [facility] [place] [facility] Td 2018-06-12 Completed University of 00:00:00 [facility] [place] [facility] Td 2018-06-12 Completed University of 00:00:00 [place] [facility] Td 2018-06-12 Completed University of 00:00:00 [facility] [place] [facility] Td 2018-06-12 Completed University of 00:00:00 [facility] [place] [facility] Td 2018-06-12 Completed University of 00:00:00 [facility] [place] [facility] Td 2018-06-12 Completed University of 00:00:00 [facility] [place] [facility] TD, NOS 2018-06-12 Completed University of 00:00:00 [facility] [place] [facility] TD, NOS 2018-06-12 Completed University of 00:00:00 [facility] [place] [facility] TD, NOS 2018-06-12 Completed University of 00:00:00 [facility] [place] [facility] TD, NOS 2018-06-12 Completed University of 00:00:00 [facility] [place] [facility] TD, NOS 2018-06-12 Completed University of 00:00:00 [facility] [place] [facility] Vital Signs Vital Name Observation Time Observation Value Comments Source Systolic blood 2022-07-08 19:45:00 112 mm[Hg] Univer sity of pressure [facility] [place] [facility] Diastolic blood 2022-07-08 19:45:00 67 mm[Hg] Unive rsity of pressure [facility] [place] [facility] Heart rate 2022-07-08 19:45:00 78 /min [facility] [place] [facility] Respiratory rate 2022-07-08 19:45:00 22 /min Univ ersity of [place] [facility] Oxygen saturation in 2022-07-08 19:45:00 98 /min University of Arterial blood by [place] Medi zaina Pulse oximetry Branch Body temperature 2022-07-08 18:00:00 36.94 Pilar [facility] ersity [facility] [place] [facility] Body height 2022-07-07 01:54:00 172.7 cm [facility] [place] [facility] Body weight 2022-07-07 01:54:00 120.203 kg [facility] [place] [facility] BMI 2022-07-07 01:54:00 40.29 kg/m2 [facility] [place] [facility] Heart rate 2022-07-08 18:00:00 69 /min [facility] [place] [facility] Body temperature 2022-07-08 18:00:00 36.94 Pilar [facility] [place] [facility] Respiratory rate 2022-07-08 18:00:00 11 /min [facility] [place] [facility] Oxygen saturation in 2022-07-08 18:00:00 95 /min University of Arterial blood by [place] [id number] zaina Pulse oximetry Branch Systolic blood 2022-07-08 17:45:00 117 mm[Hg] Univer sity of pressure [place] [facility] Diastolic blood 2022-07-08 17:45:00 78 mm[Hg] Unive rsity of pressure [place] [facility] Body height 2022-07-07 01:54:00 172.7 cm [facility] [place] [facility] Body weight 2022-07-07 01:54:00 120.203 kg [facility] BMI 2022-07-07 01:54:00 40.29 kg/m2 [facility] Systolic blood 2022-04-25 18:59:00 160 mm[Hg] [facility] Diastolic blood 2022-04-25 18:59:00 91 mm[Hg] Unive rsity of pressure [facility] Heart rate 2022-04-25 18:59:00 96 /min [facility] Oxygen saturation in 2022-04-25 18:59:00 96 /min [facility] of Arterial blood by [place] [facility] Pulse oximetry Branch Respiratory rate 2022-04-25 18:55:00 19 /min [facility] health of [facility] Body height 2022-04-25 18:55:00 175.3 cm Universi ty of [facility] Body weight 2022-04-25 18:55:00 124.603 kg Universi ty of [facility] BMI 2022-04-25 18:55:00 40.57 kg/m2 Universi ty of [facility] Systolic blood 2022-04-25 18:59:00 160 mm[Hg] Univer sity of pressure [facility] Diastolic blood 2022-04-25 18:59:00 91 mm[Hg] Unive rsity of [facility] Heart rate 2022-04-25 18:59:00 96 /min [facility] [place] [place] Oxygen saturation in 2022-04-25 18:59:00 96 /min [facility] Arterial blood by [facility] Pulse oximetry Branch Respiratory rate 2022-04-25 18:55:00 19 /min [facility] ers[facility] health of [facility] Body height 2022-04-25 18:55:00 175.3 cm Universi ty of [facility] Body weight 2022-04-25 18:55:00 124.603 kg Universi ty [facility] BMI 2022-04-25 18:55:00 40.57 kg/m2 [facility] Procedures Procedure Date / Time Performing Clinician Source Performed ACTIVATED PARTIAL THRMPLAS 2022-07-08 17:49:00 [facility] PART[facility] THRMPLAS 2022-07-08 17:49:00 Maurizio Saab [facility] POCT GLUCOSE (AUTOMATED) 2022-07-08 17:39:00 Demetria Nance [facility] POCT GLUCOSE (AUTOMATED) 2022-07-08 17:39:00 Demetria Nance [facility] CARDIAC CATHETERIZATION 2022-07-08 15:09:53 Ivana Rodgers [facility] CARDIAC CATHETERIZATION 2022-07-08 15:09:53 Ivana Rodgers [facility] CARDIAC CATHETERIZATION 2022-07-08 15:09:53 Ivana Rodgers [facility] CARDIAC CATHETERIZATION 2022-07-08 15:09:53 VishalIvana Gustavo [facility] ersity of [facility] CARDIAC CATHETERIZATION 2022-07-08 15:09:53 SunnybetsyIvana Gustavo [facility] ersity of [facility] CARDIAC CATHETERIZATION 2022-07-08 15:09:53 Ivana Rodgers Gustavo [facility] ersuc health of [facility] CATH PROCEDURE LOG 2022-07-08 14:47:36 Vishal Ivana Gustavo [facility] CATH PROCEDURE LOG 2022-07-08 14:47:36 Vishal Ivana L [facility] POCT GLUCOSE (AUTOMATED) 2022-07-08 13:53:00 [facility]SE ([facility]OM[facility]) 2022-07-08 13:53:00 [facility] ACTIVATED PARTIAL THRMPLAS 2022-07-08 10:31:00 Marlon Demetria U [facility] ACTIVATED PARTIAL THRMPLAS 2022-07-08 10:31:00 Marlon Demetria U [facility] POCT GLUCOSE (AUTOMATED) 2022-07-08 10:13:00 [facility] POCT GLUCOSE (AUTOMATED) 2022-07-08 10:13:00 [facility] PHOSPHORUS 2022-07-08 09:38:00 Marlon [facility] MAGNESIUM 2022-07-08 09:38:00 Marlon [facility] BASIC METABOLIC PANEL (NA, 2022-07-08 09:38:00 Demetria Nance [facility] K, CL, CO2, GLUCOSE, BUN, Medica l Branch CREATININE, CA) CBC WITHOUT DIFF 2022-07-08 09:38:00 Sudhakar Lara [facility] PHOSPHORUS 2022-07-08 09:38:00 Marlon [facility] MAGNESIUM 2022-07-08 09:38:00 Marlon [facility] BASIC METABOLIC PANEL (NA, 2022-07-08 09:38:00 Demetria Nance [facility] K, CL, CO2, GLUCOSE, BUN, Medica l Branch CREATININE, CA) CBC WITHOUT DIFF 2022-07-08 09:38:00 [facility]SE ([facility]OMATED) 2022-07-08 02:10:00 [facility] POCT GLUCOSE (AUTOMATED) 2022-07-08 02:10:00 [facility] ACTIVATED PARTIAL THRMPLAS 2022-07-07 22:47:00 Katie Lara [facility] ACTIVATED PARTIAL THRMPLAS 2022-07-07 22:47:00 Katie Lara [facility] POCT GLUCOSE (AUTOMATED) 2022-07-07 22:42:00 [facility] POCT GLUCOSE (AUTOMATED) 2022-07-07 22:42:00 Bailey uNnez [facility] TRANSTHORACIC ECHO (TTE) 2022-07-07 19:42:38 Demetria Nance [facility] TRANSTHORACIC ECHO (TTE) 2022-07-07 19:42:38 Demetria Nance [facility] POCT GLUCOSE (AUTOMATED) 2022-07-07 17:19:00 [facility] POCT GLUCOSE (AUTOMATED) 2022-07-07 17:19:00 [facility] PROTHROMBIN TIME / INR 2022-07-07 15:34:00 Sudhakar Lara [facility] ACTIVATED PARTIAL THRMPLAS 2022-07-07 15:34:00 Katie Lara [facility] PROTHROMBIN TIME / INR 2022-07-07 15:34:00 Sudhakar Lara [facility] ACTIVATED PARTIAL THRMPLAS 2022-07-07 15:34:00 Katie Lara [facility] PHOSPHORUS 2022-07-07 10:41:00 Marlon, [facility] MAGNESIUM 2022-07-07 10:41:00 Marlon, [facility] TROPONIN I 2022-07-07 10:41:00 Marlon, [facility] BASIC METABOLIC PANEL (NA, 2022-07-07 10:41:00 Marlon, [facility] K, CL, CO2, GLUCOSE, BUN, Medica l Branch CREATININE, CA) CBC WITH DIFF 2022-07-07 10:41:00 Marlon, [facility] PHOSPHORUS 2022-07-07 10:41:00 Marlon, [facility] MAGNESIUM 2022-07-07 10:41:00 Marlon, [facility] TROPONIN I 2022-07-07 10:41:00 Marlon, [facility] BASIC METABOLIC PANEL (NA, 2022-07-07 10:41:00 Marlon, [facility] K, CL, CO2, GLUCOSE, BUN, Medica l Branch CREATININE, CA) CBC WITH DIFF 2022-07-07 10:41:00 Marlon, [facility] POCT GLUCOSE (AUTOMATED) 2022-07-07 03:35:00 Bailey Nunez [facility] POCT GLUCOSE (AUTOMATED) 2022-07-07 03:35:00 Bailey Nunez [facility] TROPONIN I 2022-07-07 02:28:00 Marlon, [facility] TROPONIN I 2022-07-07 02:28:00 Marlon, [facility] MRSA / MSSA SCREEN BY PCR, 2022-07-07 02:14:00 Marlon, [facility] MRSA / MSSA SCREEN BY PCR, 2022-07-07 02:14:00 Marlon, [facility] CT ANGIOGRAM CHEST 2022-07-06 23:25:27 Bailey Nunez [facility] CT ANGIOGRAM 2022-07-06 23:25:27 Bailey Nunez [facility] ABDOMEN/PELVIS [facility] CT ANGIOGRAM CHEST 2022-07-06 23:25:27 Bailey Nunez [facility] CT ANGIOGRAM 2022-07-06 23:25:27 Bailey Nunez [facility] ABDOMEN/PELVIS [facility] XR CHEST 1 VW 2022-07-06 20:04:00 Bailey Nunez [facility] XR CHEST 1 VW 2022-07-06 20:04:00 Bailey Nunez [facility] LIPASE 2022-07-06 20:00:00 Bailey Nunez [facility] MAGNESIUM 2022-07-06 20:00:00 Bailey Nunez [facility] TROPONIN I 2022-07-06 20:00:00 Bailey Nunez [facility] COMP. METABOLIC PANEL 2022-07-06 20:00:00 Bailey Nunez [facility] ([address]91[facility] CBC WITH DIFF 2022-07-06 20:00:00 Bailey Nunez [facility] GLYCOSYLATED HEMOGLOBIN 2022-07-06 20:00:00 Bailey Nunez [facility] (A1C) [facility] PROTHROMBIN TIME / INR 2022-07-06 20:00:00 Bailey Nunez [facility] D-DIMER 2022-07-06 20:00:00 Bailey Nunez [facility] ACTIVATED PARTIAL THRMPLAS 2022-07-06 20:00:00 Bailey Nunez [facility] N-TERMINAL PRO-BNP 2022-07-06 20:00:00 Bailey Nunez [facility] LIPASE 2022-07-06 20:00:00 Bailey Nunez [facility] MAGNESIUM 2022-07-06 20:00:00 Bailey Nunez [facility] TROPONIN I 2022-07-06 20:00:00 Bailey Nunez [facility] COMP. METABOLIC PANEL 2022-07-06 20:00:00 Bailey Nunez [facility] ([id number]) [facility] CBC WITH DIFF 2022-07-06 20:00:00 Bailey Nunez [facility] GLYCOSYLATED HEMOGLOBIN 2022-07-06 20:00:00 Bailey Nunez [facility] (A1C) [facility] PROTHROMBIN TIME / INR 2022-07-06 20:00:00 Bailey Nunez [facility] D-DIMER 2022-07-06 20:00:00 Bailey Nunez [facility] ACTIVATED PARTIAL THRMPLAS 2022-07-06 20:00:00 Bailey Nunez [facility] N-TERMINAL PRO-BNP 2022-07-06 20:00:00 Bailey Nunez [facility] HB ECG ROUTINE & RHYTHM 2022-07-06 19:47:46 Bailey Nunez [facility] HB ECG ROUTINE & RHYTHM 2022-07-06 19:47:46 Bailey Nunez [facility] NOTICE OF PRIVACY 2022-07-06 19:38:47 Doctor Unassigned, [facility] PRACTICES [facility] NOTICE OF PRIVACY 2022-07-06 19:38:47 Doctor Unassigned, [facility]REFUS[facility] FOR 2022-07-06 19:37:24 Doctor Unassigned, [facility] DIAGNOSIS AND TREATMENT [facility]REFUSAL FOR 2022-07-06 19:37:24 Doctor Unassigned, [facility] DIAGNOSIS [facility] T[facility] URINALYSIS 2022-07-06 13:00:00 Bailey Nunez [facility] URINE DRUG (IMMUNOASSAY) - 2022-07-06 13:00:00 Bailey Nunez [facility] COMPREHENSIVE DRUG SCREEN Medica l Branch W/O REFLEX URINALYSIS 2022-07-06 13:00:00 Bailey Nunez [facility] URINE DRUG (IMMUNOASSAY) - 2022-07-06 13:00:00 Bailey Nunez [facility] COMPREHENSIVE DRUG SCREEN Medica l [place] W/O REFLEX Plan of Care Planned Activity Planned Date Details Comments Source Future Scheduled 2023-03-29 COVID-19 VACCINE [facility] Test 13:29:32 (#1) [code = COVID-19 VACCINE (#1)] Future Scheduled 2023-03-29 [facility] 13:29:32 [code = INFLUENZA VACCINE] Encounters Start End Encounter Admission Attending Care Care Encounter Source Date/Time Date/Time Type Type Clinicians Facility Department ID 2022-10-30 Outpatient Brandt, [facility] [id number] Common 11:00:03 Sandip [id number] [facility] 2022-08-20 Outpatient Brandt, [facility] [id number] Common 11:13:03 Sandip [id number] [facility] 2022-08-03 [facility] [id number] Common 06:59:00 Sandip [id number] [facility] 2022-07-31 Out[facility], [facility] [id number] Common 09:18:05 Sandip [id number] [facility] 2022-06-19 Outpatient Brantd, [facility] [id number] Common 09:35:04 Sandip [id number] [facility] 2022-06-10 Outpatient Brandt, [facility] [id number] Common 09:23:04 Sandip [id number] [facility] 2022-06-07 Outpatient Brandt, [facility] [id number] Common 08:06:03 Sandip [id number] [facility] 2021-06-24 Emergency [facility] [id number] Univers 20:44:54 ity [facility] 2021-06-22 Emergency [facility] [id number] Univers 22:05:10 ity of [facility] 2021-06-22 Emergency [facility] [id number] Univers [facility]:04[facility]15 [facility] 2023-03-29 2023-03-29 Social Sciences Instructor Aung Chin Lab Main [facility] 1.2.8 [id number] Univers 08:15:00 08:30:00 [facility].10 [facility] 4.2.7.2.686 Joshua HOUSERESSIO [id number] [address] 2023-03-29 2023-03-29 Outpatient R DEMARIO [facility] [id number] Univers 08:15:00 08:15:00 ALEKSANDER ity [facility] 2023-02-26 2023-02-26 Telephone [facility] [id number] Univers 00:00:00 00:00:00 Julius AUGUSTIN 350.1.13.10 [place] [id number] [facility] 059 [facility] 2023-02-24 2023-02-24 Telephone [facility] [id number] Univers 00:00:00 00:00:00 Julius AUGUSTIN [id number] [place] [id number] [place] [id number] [facility] 2022-07-30 2022-07-30 Out[facility] [id number] Univers 15:40:00 15:40:00 KONSTANTIN fernando [facility] 2022-07-24 2022-07-24 Telephone [facility] [id number] Univers 00:00:00 00:00:00 Konstantin AUGUSTIN 350.1.13.10 i ty of [place] [id number] [facility] 044 [facility] 2022-07-22 2022-07-22 Refill JadonkenzielaurentNEW [facility] 1.2.840.114 [id number] Univers 00:00:00 00:00:00 Konstantin AUGUSTIN 350.1.13.10 i ty of [facility] 4.2.7.2.[place] [phone] [facility] 044 [facility] 2022-07-09 2022-07-09 Transition YIFAN Henyr 1.2.840.114 [id number] Univers 00:00:00 00:00:00 of Geronimo HOU 350.1.13.10 i ty of [place] [id number] [facility] [address] Branch 2022-07-06 2022-07-08 Inpatient X DEMETRIA NANCE [facility] [id number] Univers 13:47:00 15:55:00 DEMETRIA NANCE it y of [facility] 2022-07-06 2022-07-08 Hospital Bailey Nunez [facility] 1.2.840. 114 [id number] Univers 13:47:00 15:55:00 Encounter Demetria Nance HEALTH 350.1.13.10 [place] of [place] [id number] [facility] 111 Branch ([facility]) 2022-07-08 2022-07-08 Surgery [facility] 1.2.840.114 [id number] Univers 10:00:00 12:00:00 Tanner A HEALTH 350.1.13.10 it y of [place] [id number] [facility] 840 Branch ([facility]) 2022-05-29 2022-05-29 Outpatient [facility] [id number] Univers 15:20:00 15:20:00 [facility]ie [facility] 2022-05-29 2022-05-29 Outpatient Josefina [facility] [id number] Univers 15:20:00 15:20:00 [facility] melanie corcoran [facility] 2022-05-28 2022-05-28 Telephone [facility]ianaNEW [facility] 1.2.840.114 [id number] Univers 00:00:00 00:00:00 Konstantin AUGUSTIN 350.1.13.10 i ty of [place] [phone] [address] 2022-04-25 2022-04-25 Outpatient R ILIANA [facility] [id number] Univers 15:00:00 15:37:21 KONSTANTIN navarro of [facility] 2022-04-25 2022-04-25 Office [facility]NEW [facility] 1.2.840.114 [id number] Univers 15:00:00 15:37:21 Visit Konstantin DEMETRIA 350.1.13.10 i ty of [facility] 4.2.7.2.[place] [id number] Fl dical NAL 044 [facility] 2022-04-25 2022-04-25 Outpatient R [facility] [id number] Univers 14:00:00 14:32:02 JULIUS navarro o f [facility] 2022-04-25 2022-04-25 Office [facility] 1.2.840.114 [id number] Univers 14:00:00 14:32:02 Visit Julius RAMOSKYLEE 350.1.13.10 [place] of [place] 4[place] [id number] [facility] 059 [facility] 2022-04-25 2022-04-25 Office [facility] 1.2.840.114 [id number] Univers 14:00:00 14:32:02 Visit Julius AUGUSITN 350.1.13.10 ity of [facility] 4.2.7.2.[place] [id number] Fl dicmo NAL 059 [facility] 2022-04-25 2022-04-25 Outpatient R [facility] [id number] Univers 14:00:00 14:32:02 JULIUS corcoran [facility] 2022-04-25 2022-04-25 Orders Doctor KRISTIE 1.2.840.114 [id number] Univers 00:00:00 00:00:00 Only Unassigned, CARLOS 350.1.13.10 ity of [place] [facility] 4.2.7.2.686 Robert as [phone] [address] 2022-04-25 2022-04-25 Letter [facility] 1.2.840.114 [id number] Univers 00:00:00 00:00:00 (Out) Julius AUGUSTIN 350.1.13.10 ity of [facility] 4.2.7.2.[place] [phone] Fl dical NAL 059 [facility] 2022-03-29 2022-03-29 Singh CorreaNEW [facility]EX[facility] 1.2.840.114 [id number] Univers 00:00:00 00:00:00 Julius AUGUSTIN 350.1.13.10 ity of [facility] 4.2.7.2.[place] [id number] Fl dical NAL 9 [facility] 2021-09-04 2021-09-04 Refricci AnujNEW [facility] 1.2.840.114 [id number] Univers 00:00:00 00:00:00 Julius AUGUSTIN 350.1.13.10 ity of [facility] 4.2.7.2.[place] [phone] Fl dical NAL 9 [facility] 2021-07-02 2021-07-02 YIFAN Clancy 1.2.840.114 [id number] Univers 00:00:00 00:00:00 Management Kayleen HOU 350.1.13.10 ity of [place] 4.2.7.2.[place] [id number] [place] 394526 [place] 2021-01-17 2021-01-17 Outpatient R ANUJ [facility] [id number] Univers 10:20:00 10:20:00 JULIUS navarro o f [facility] 2021-01-14 2021-01-16 Emergency Betsy Rodriguez [facility] 1.2.840. 114 [id number] Univers 17:00:00 16:50:00 Tiffanie Mendoza 350.1.13.10 ity of [place].2.[place] [phone] [address] 2021-01-14 2021-01-16 Outpatient X REJI [facility] [id number] Univers 17:00:00 16:50:00 TIFFANIE navarro [facility] 2021-01-14 2021-01-14 Orders Doctor FLOWERS 1.2.840.114 [id number] Univers 00:00:00 00:00:00 Only Unassigned, CARLOS 350.1.13.10 ity of [place] [facility] 4.2.7.2.686 Robert as [id number] [address] 2021-01-04 2021-01-04 Telephone [facility]NEW [facility] 1.2.534.114 [id number] Univers 00:00:00 00:00:00 Julius Augustin 350.1.13.10 [place] of [place] 4.2.7.2.[place] Profess[place] [phone] Fl dical nal 9 [facility] 2020-12-25 2020-12-25 Outpatient [facility] [id number] Univers 09:40:00 09:40:00 JULIUS ity o f [facility] 2020-12-19 2020-12-19 Refill [facility]NEW [facility] 1.2.840.114 [id number] Univers 00:00:00 00:00:00 Julius Augustin 350.1.13.10 ity of [place]2.[place].2.[place] Profess[place] [phone] Fl dical nal [address] [place] [address] 2020-10-06 2020-10-06 Orders Doctor KRISTIE 1.2.840.114 [id number] Univers 00:00:00 00:00:00 Only Unassigned, CARLOS 350.1.13.10 ity of [place] [facility] 4.2.7.2.686 Robert as [phone] [facility] 009 [place] 2020-09-19 2020-09-19 Patient Jennie Ramirez 1.2.840.114 [id number] Univers 00:00:00 00:00:00 Outreach E CARLOS 350.1.13.10 i ty of HOSPITAL 4.2.7.2.686 Robert as [phone] [facility] 043 [place] 2020-09-19 2020-09-19 Patient Jennie Ramirez 1.2.840.114 [id number] 00:00:00 00:00:00 Outreach E CARLOS 350.1.13.10 [facility] 4.2.7.2.686 [id number] [facility] 2020-09-14 2020-09-14 Patient Jennie Ramirez 1.2.840.114 [id number] 00:00:00 00:00:00 Outreach E Hou 350.1.13.10 [place] 4.2.7.2.686 [id number] 403 2020-09-14 2020-09-14 Patient Jennie Ramirezamy 1.2.840.114 [id number] Univers 00:00:00 00:00:00 Outreach E Hou 350.1.13.10 i ty of [place]2.[place] [id number] [facility] [address] 2020-09-12 2020-09-12 Transition Yifan Banerjee 1.2.840.114 [id number] 00:00:00 00:00:00 of Care Corie Hou 350.1.13.10 [place] 4.2.7.2.686 [id number] 403 2020-09-12 2020-09-12 Transition Yifan Banerjee 1.2.840.114 [id number] Univers 00:00:00 00:00:00 of Care Corie Hou 350.1.13.10 ity of [place] 4.2.[place].2.[place] [id number] [facility] 403 Branch 2020-09-06 2020-09-09 [facility] 1.2.840.1 [id number] 09:57:00 12:27:00 Encounter Any Lam 350.1.13.1 0 [facility] 4.2.7.2.686 [id number] 2020-09-06 2020-09-09 [facility] [id number] Univers 09:57:00 12:27:00 [facility] 2020-09-06 2020-09-09 [facility] 1.2.840.1 [id number] Univers 09:57:00 12:27:00 Encounter Any Lam Justin Carlos 350.1.13.1 0 ity of [facility] 4.2.7.2.686 [place] [phone] [facility] 090 Branch 2020-09-06 2020-09-06 Telephone Anuj [facility] 1.2.603.123 [id number] 00:00:00 00:00:00 Julius Demetria 350.1.13.10 [place] 4.2.7.2.686 Professio [phone] [address] 2020-09-06 2020-09-06 Telephone [facility] 1.2.079.153 [id number] Univers 00:00:00 00:00:00 Julius Augustin 350.1.13.10 ity of [place] Profess[place] [phone] Fl dical [facility] 2020-09-01 2020-09-03 Emergency Sonja Medinaanne [facility] 1.2.840 .114 [id number] 16:41:00 14:30:00 Randolph Leggett 350.1.13.10 [place] 4.2.7.2.686 [place] [id number] 2020-09-01 2020-09-03 Outpatient X OLEKSANDR [facility] [id number] Univers 16:41:00 14:30:00 RANDOLPH rondafernando [facility] 2020-09-01 2020-09-03 Emergency Isamar Medina [facility] 1.2.840 .114 [id number] Univers 16:41:00 14:30:00 Randolph Leggett 350.1.13.10 ity of [place] [id number] [facility] 081 [place] 2020-07-05 2020-07-05 Orders Doctor FLOWERS 1.2.840.114 [id number] 00:00:00 00:00:00 Only Unassigned, CARLOS 350.1.13.10 [place] [facility] 4.2.7.2.686 [id number] 2020-07-05 2020-07-05 Orders Doctor KRISTIE 1.2.840.114 [id number] Univers 00:00:00 00:00:00 Only Unassigned, CARLOS 350.1.13.10 ity of [place] [facility] 4.2.7.2.686 Robert as [phone] [facility] 009 [place] 2020-06-27 2020-06-27 Office [facility] 1.2.840.114 [id number] 13:05:18 13:42:05 Visit Julius Augustin 350.1.13.10 [place] 4.2.7.2.686 Professio [phone] nal [address] [place] [address] 2020-06-27 2020-06-27 Office [facility] 1.2.840.114 [id number] Univers 13:05:18 13:42:05 Visit Julius Augustin 350.1.13.10 [place] [phone] [place] [address] 2020-06-27 2020-06-27 Outpatient R [facility] [id number] Univers 13:00:00 13:00:00 JULIUS ity o f [facility] 2020-06-22 2020-06-22 Telephone [facility] [id number] Univers 00:00:00 00:00:00 Julius Augustin 350.1.13.10 [place] [phone] [address] 2020-06-02 2020-06-03 Emergency Luis Angel Arreola [facility] 1.2.840. 114 [id number] Univers 11:32:00 13:07:00 Florian Dyer 350.1.13.10 [place] [facility] [phone] [facility] [address] 2020-05-30 2020-05-30 Transition Yifan Banerjee 1.2.840.114 [id number] Univers 00:00:00 00:00:00 of Care Corie Moody 350.1.13.10 it[place] of [place] [phone] [facility] [address] 2020-05-23 2020-05-28 [facility] Héctor Bales 1.2.840.1 [id number] Univers 14:23:00 14:45:00 Encounter Tiffanie Mendoza 350.1.13.10 ity of [facility] 4.2.7.2.686 [facility] [phone] Medical Cyr, Ray [place] 090 [facility] 2020-05-23 2020-05-23 Orders Doctor KRISTIE 1.2.840.114 [id number] Univers 00:00:00 00:00:00 Only Unassigned, CARLOS 350.1.13.10 ity of [place] [facility] 4.2.7.2.686 Robert as [phone] [facility] [address] 2019-10-31 2019-10-31 Emergency [facility] 1.2.840.114 [id number] Univers 13:38:57 16:16:00 Vivian Augustin 350.1.13.10 ity [facility] 4.2.7.2.686 [facility] [phone] [address] 2019-10-31 2019-10-31 Emergency X [facility] ERT [id number] Univers 13:38:57 16:16:00 VIVIAN ity [facility] 2019-09-21 2019-09-21 Case Harleen FLOWERS 1.2.840.114 [id number] Univers 00:00:00 00:00:00 Management , Naya COHEN 350.1.13.10 ity of [facility] 4.2.7.2.686 Robert as [phone] [facility] [address] 2019-05-09 2019-05-09 Emergency [facility] [id number] Univers 17:45:02 22:25:00 Charley Augustin 350.1.13.10 i ty of [place] 4.2.7.2.686 [facility] [phone] [address] Results Test Description Test Time Test Comments Results Result Comments Source POCT GLUCOSE (AUTOMATED) 2022-07-08 18:51:50 Test Item Value Reference Range Interpretation Comme nts POCT GLU (test code = 6333044983) 78 mg/dL 70-110 Lab Interpretation (test code = 53374-8) [facility] 18:51:50 Test Item Value Reference Range Interpretation Comments POCT GLU (test code = 1300196716) 78 mg/dL 70-110 Lab Interpretation (test code = Normal 43912-2) [place] 52645022-11-14 18:47:28 Test Item Value Reference Range Interpretation Comments APTT Patient (test code See_Comment H [Au tomated message] = 3173-2) The system [employer] generated this result transmitted ref erence range: 26 - 36 Seconds. The reference range was not used to int erpret this result as normal/abnormal . Lab Interpretation (test Abnormal code = 39200-3) [place] 52645022-11-14 18:47:28 Test Item Value Reference Range Interpretation Comments APTT Patient (test code See_Comment H [Au tomated message] = 3173-2) The system [employer] generated this result transmitted ref erence range: 26 - 36 Seconds. The reference range was not used to int erpret this result as normal/abnormal . Lab Interpretation (test Abnormal code = 53879-4) [facility] GLUCOSE (AUTOMATED)2022-07-08 13:56:26 Test Item Value Reference Range Interpretation Comments POCT GLU (test code = 0350548988) 101 mg/dL 70-110 Lab Interpretation (test code = Normal 52340-9) [facility] GLUCOSE (AUTOMATED)2022-07-08 13:56:26 Test Item Value Reference Range Interpretation Comments POCT GLU (test code = 5351183302) 101 mg/dL 70-110 Lab Interpretation (test code = Normal 02669-3) [place] 52645022-11-14 10:59:40 Test Item Value Reference Range Interpretation Comments APTT Patient (test code See_Comment HH [Au tomated message] = 3173-2) The system [employer] generated this result transmitted ref erence range: 26 - 36 Seconds. The reference range was not used to int erpret this result as normal/abnormal . Lab Interpretation (test Abnormal code = 36759-7) [place] 52645022-11-14 10:59:40 Test Item Value Reference Range Interpretation Comments APTT Patient (test code See_Comment HH [Au tomated message] = 3173-2) The system [employer] generated this result transmitted ref erence range: 26 - 36 Seconds. The reference range was not used to int erpret this result as normal/abnormal . Lab Interpretation (test Abnormal code = 46346-4) [facility] GLUCOSE (AUTOMATED)2022-07-08 10:14:27 Test Item Value Reference Range Interpretation Comments POCT GLU (test code = 112 mg/dL 70-110 H Notifi ed Provider [id number]) Lab Interpretation (test Abnormal code = 95781-3) [facility] GLUCOSE (AUTOMATED)2022-07-08 10:14:27 Test Item Value Reference Range Interpretation Comments POCT GLU (test code = 112 mg/dL 70-110 H Notifi ed Provider [id number]) Lab Interpretation (test Abnormal code = 40045-4) [facility] METABOLIC PANEL (NA, K, CL, CO2, GLUCOSE, BUN, CREATININE, CA)2022-07-08 10:03:15 Test Item Value Reference Range Interpretation Comments NA (test code = 135 mmol/L 135-145 1973207385) K (test code = 4.3 mmol/L 3.5-5.0 4147376324) CL (test code = 104 mmol/L 98-108 1712108748) CO2 TOTAL (test code = 24 mmol/L 23-31 7609041532) AGAP (test code = 2-16 6160236125) BUN (test code = 23 mg/dL 7-23 9564558484) GLUCOSE (test code = 108 mg/dL 70-110 4733020273) CREATININE (test code = 0.80 mg/dL 0.60-1.25 6287897640) CALCIUM (test code = 8.2 mg/dL 8.6-10.6 L 6153372722) eGFR (test code = mL/min/1.73m2 1193204660) ALTAGRACIA (test code = ALTAGRACIA) Association of [...] tests). Lab Interpretation Abnormal (test code = 30711-3) [facility] 10:03:15 Test Item Value Reference Range Interpretation Comments MAGNESIUM (test code = 8488522568) 1.9 mg/dL 1.7-2.4 Lab Interpretation (test code = Normal 11477-7) [facility] 10:03:15 Test Item Value Reference Range Interpretation Comments PHOSPHORUS (test code = 0200117570) 3.6 mg/dL 2.5-5.0 Lab Interpretation (test code = Normal 06213-1) [facility] (NA, K, CL, CO2, GLUCOSE, BUN, CREATININE, CA)2022-07-08 10:03:15 Test Item Value Reference Range Interpretation Comments NA (test code = 135 mmol/L 135-145 3011637134) K (test code = 4.3 mmol/L 3.5-5.0 4531411029) CL (test code = 104 mmol/L 98-108 6304305728) CO2 TOTAL (test code = 24 mmol/L 23-31 5742987987) AGAP (test code = 2-16 5960474148) BUN (test code = 23 mg/dL 7-23 8418694034) GLUCOSE (test code = 108 mg/dL 70-110 1258005821) CREATININE (test code = 0.80 mg/dL 0.60-1.25 0359676085) CALCIUM (test code = 8.2 mg/dL 8.6-10.6 L 7665845975) eGFR (test code = mL/min/1.73m2 8086122033) ALTAGRACIA (test code = ALTAGRACIA) Association of [...] tests). Lab Interpretation Abnormal (test code = 58518-7) [facility] 10:03:15 Test Item Value Reference Range Interpretation Comments MAGNESIUM (test code = 8531801252) 1.9 mg/dL 1.7-2.4 Lab Interpretation (test code = Normal 25389-8) [facility] 10:03:15 Test Item Value Reference Range Interpretation Comments PHOSPHORUS (test code = 7105460217) 3.6 mg/dL 2.5-5.0 Lab Interpretation (test code = Normal 85688-7) [facility] [id number] 09:52:32 Test Item Value Reference Range Interpretation Comments WBC (test code = See_Comment [Automated message] The 6690-2) system which nerated this result tra nsmitted reference range : 4.20 - 10.70 10*3/?L. The reference range was not used to interpr et this result as normal/abnormal . RBC (test code = See_Comment [Automated message] The 789-8) system which nerated this result tra nsmitted reference range : 4.26 - 5.52 10*6/?L. T he reference range was not used to interpr et this result as normal/abnormal . HGB (test code = 14.1 g/dL 12.2-16.4 718-7) HCT (test code = 41.3 % 38.4-49.3 4544-3) MCH (test code = 30.5 pg 26.1-32.7 785-6) MCV (test code = 89.4 fL 81.7-95.6 787-2) MCHC (test code = 34.1 g/dL 31.2-35.0 786-4) PLT (test code = See_Comment [Automated message] The 777-3) system which nerated this result tra nsmitted reference range : 150 - 328 10*3/?L. Th e reference range was not used to interpr et this result as normal/abnormal . MPV (test code = 10.1 fL 9.8-13.0 39240-3) RDW-CV (test code = 12.4 % 12.1-15.4 788-0) RDW-SD (test code = 40.6 fL 38.5-51.6 58597-9) NRBC x10^3 (test See_Comment [Automated message] The code = 4369475263) system [facility] generated this result tra nsmitted reference range : 10*3/?L. The reference r cristin was not used to int erpret this result as normal/abnormal . NRBC/100 WBC (test See_Comment [Automat ed message] The code = 7997688879) system [facility] generated this result tra nsmitted reference range : 0.0 - 10.0 /100 WBCs. The reference range was not used to interpr et this result as normal/abnormal . IPF % (test code = 1174174590) [facility] [id number] 09:52:32 Test Item Value Reference Range Interpretation Comments WBC (test code = See_Comment [Automated message] The 6690-2) system which nerated this result tra nsmitted reference range : 4.20 - 10.70 10*3/?L. The reference range was not used to interpr et this result as normal/abnormal . RBC (test code = See_Comment [Automated message] The 789-8) system which nerated this result tra nsmitted reference range : 4.26 - 5.52 10*6/?L. T he reference range was not used to interpr et this result as normal/abnormal . HGB (test code = 14.1 g/dL 12.2-16.4 718-7) HCT (test code = 41.3 % 38.4-49.3 4544-3) MCH (test code = 30.5 pg 26.1-32.7 785-6) MCV (test code = 89.4 fL 81.7-95.6 787-2) MCHC (test code = 34.1 g/dL 31.2-35.0 786-4) PLT (test code = See_Comment [Automated message] The 777-3) system which nerated this result tra nsmitted reference range : 150 - 328 10*3/?L. Th e reference range was not used to interpr et this result as normal/abnormal . MPV (test code = 10.1 fL 9.8-13.0 62053-3) RDW-CV (test code = 12.4 % 12.1-15.4 788-0) RDW-SD (test code = 40.6 fL 38.5-51.6 39573-1) NRBC x10^3 (test See_Comment [Automated message] The code = 3329280192) system [facility] generated this result tra nsmitted reference range : 10*3/?L. The reference r cristin was not used to int erpret this result as normal/abnormal . NRBC/100 WBC (test See_Comment [Automat ed message] The code = 4240213154) system [employer] generated this result tra nsmitted reference range : 0.0 - 10.0 /100 WBCs. The reference range was not used to interpr et this result as normal/abnormal . IPF % (test code = 9620025229) [facility] GLUCOSE (AUTOMATED)2022-07-08 02:12:20 Test Item Value Reference Range Interpretation Comments POCT GLU (test code = 135 mg/dL 70-110 H Notifi ed Provider [id number]) Lab Interpretation (test Abnormal code = 84395-7) [facility] GLUCOSE (AUTOMATED)2022-07-08 02:12:20 Test Item Value Reference Range Interpretation Comments POCT GLU (test code = 135 mg/dL 70-110 H Notifi ed Provider [id number]) Lab Interpretation (test Abnormal code = 03154-6) [facility] (for use with Heparin Infusion)2022-07-07 23:51:20 Test Item Value Reference Range Interpretation Comments APTT Patient (test code See_Comment H [Au tomated message] = 3173-2) The system [employer] generated this result transmitted ref erence range: 26 - 36 Seconds. The reference range was not used to int erpret this result as normal/abnormal . Lab Interpretation (test Abnormal code = 76562-6) [facility] (for use with Heparin Infusion)2022-07-07 23:51:20 Test Item Value Reference Range Interpretation Comments APTT Patient (test code See_Comment H [Au tomated message] = 3173-2) The system [employer] generated this result transmitted ref erence range: 26 - 36 Seconds. The reference range was not used to int erpret this result as normal/abnormal . Lab Interpretation (test Abnormal code = 76362-2) [facility] GLUCOSE (AUTOMATED)2022-07-07 22:53:01 Test Item Value Reference Range Interpretation Comments POCT GLU (test code = 2422245356) 145 mg/dL 70-110 H Lab Interpretation (test code = Abnormal 92598-5) [facility] GLUCOSE (AUTOMATED)2022-07-07 22:53:01 Test Item Value Reference Range Interpretation Comments POCT GLU (test code = 1354211435) 145 mg/dL 70-110 H Lab Interpretation (test code = Abnormal 24867-8) [facility] 21:03:25 Test Item Value Reference Range Interpretation Comments Height (test code = in 7585635707) Weight (test code = lbs 7234541240) Systolic BP (test code mmHg = 1505523486) Diastolic BP (test code mmHg = 6911833805) Heart Rate (test code = bpm 2323615964) IVS (test code = 1.13 cm 4004823029) Interventricular Septum 1.13 cm Diastolic Thickness by 2D (test code = 3417606) LVIDD (test code = 4.00 cm 7676069918) Left Ventricular End 70.8 mL Diastolic Volume by Teichholz Method (test code = 1226137) LVPWD (test code = 1.32 cm 1451083565) PW (test code = 1.32 cm 0.6-1.2 8851002743) EF(Teich) (test code = 57.50 % 5318491772) LVIDS (test code = 2.80 cm 3374500378) Left Ventricular End 30.1 mL Systolic Volume by Teichholz Method (test code = 8642574) FS (test code = 30 % 1028030701) EF - 2D (test code = 57.50 % 31040731) LVOT diameter (test 2.36 cm code = 4573850018) LVOT area (test code = 4.40 cm2 1748147663) Ao root diam (test code 3.50 cm = 4412021436) Aortic root (test code 3.5 cm = 2877885229) Ao root annulus (test 3.5 cm code = 0319142365) LA size (test code = 4.0 cm 7676915592) LAV(MOD-sp4) (test code 57.40 mL = 0473814203) MV Peak E Ankur (test 56.4 cm/s code = 5211232275) MV Peak A Ankur (test 56.4 cm/s code = 8085997104) E/A ratio (test code = ratio 2291288446) MV valve area p 1/2 4.30 cm2 method (test code = 9754294542) MV dec slope (test code 326.30 cm/s2 = 7870204875) MV P1/2t max ankur (test 56.80 cm/s code = 6657266434) MV Prop V (test code = 93.90 cm/s 9203604741) Tapse (test code = 2.8 cm 8014922711) LVOT stroke volume 65.00 cm3 (test code = 8316196428) LVOT peak ankur (test 74.2 cm/s code = 2641169167) LVOT mn grad (test code mmHg = 9138394785) AV LVOT peak gradient mmHg (test code = 1936749822) LVOT peak VTI (test 14.8 cm code = 4885621965) LV V1 mean (test code = 49.70 cm/s 1381973986) Aortic valve mean 56.3 cm/s velocity (test code = 7671562549) Ao peak ankur (test code 89.6 cm/s = 5806765739) Ao VTI (test code = 15.2 cm 9107364687) AV area by cont VTI 4.3 cm2 (test code = 8190716271) AV area peak ankur (test 3.6 cm2 code = 4932282741) Ao max PG (test code = 3.20 mm[Hg] 1369069994) AV peak gradient (test mmHg code = 6649238105) AV valve area (test 4.30 cm2 code = 4258132514) AV mean gradient (test mmHg code = 3436538981) LA volume (BP) (test 55.8 mL code = 8751431685) LAV(MOD-sp2) (test code 51.80 mL = 4195879845) LA Volume Index (BP) 24.2 mL/m2 (test code = 0788244956) BSA (test code = 2.30 m2 6627292822) Radiology Study observation (narrative) (test code = 19348-3) ALTAGRACIA (test code = ALTAGRACIA) ?Left?Ventricle: Left ventricle size is normal. Increased wall thickness. There is concentric remodeling. Normal wall motion. Normal systolic function with a visually estimated EF of 55 - 60%. Normal diastolic function. ?Right?Ventricle: Right ventricle size is normal. Normal systolic function. ?Left?Atrium: Left atrium size is normal. ?Right?Atrium: Right atrium size is normal. ?Tricuspid?Valve: Insufficient tricuspid regurgitation jet to estimate RVSP. ?Aorta: Normal sized aortic root. ?Pericardium: No pericardial effusion. Left VentricleLeft ventricle size is normal. Increased wall thickness. There is concentric remodeling. Normal wall motion. Normal systolic function with a visually estimated EF of 55 - 60%. Normal diastolic function.Right VentricleRight ventricle size is normal. Normal systolic function.Left AtriumLeft atrium size is normal.Right AtriumRight atrium size is normal.IVC/SVCIVC diameter is less than or equal to 21 mm and decreases greater than 50% during inspiration; therefore the estimated right atrial pressure is normal (~0-5 mmHg).Mitral ValveMitral valve structure is normal.Tricuspid ValveTricuspid valve structure is normal. Insufficient tricuspid regurgitation jet to estimate RVSP.Aortic ValveNot well visualized. No hemodynamically significant .Pulmonic ValveNot well visualized.Ascending AortaNormal sized aortic root.PericardiumThe pericardium is normal. No pericardial effusion.Study DetailsStudy quality was adequate. A complete echocardiogram was performed using 2D. [facility] 21:03:25 Test Item Value Reference Range Interpretation Comments Height (test code = in 3463776541) Weight (test code = lbs 0852630278) Systolic BP (test code mmHg = 2069864699) Diastolic BP (test code mmHg = 8131739671) Heart Rate (test code = bpm 1394707237) IVS (test code = 1.13 cm 6934107342) Interventricular Septum 1.13 cm Diastolic Thickness by 2D (test code = 0051243) LVIDD (test code = 4.00 cm 8403357813) Left Ventricular End 70.8 mL Diastolic Volume by Teichholz Method (test code = 4432268) LVPWD (test code = 1.32 cm 4824678767) PW (test code = 1.32 cm 0.6-1.7 1520868476) EF(Teich) (test code = 57.50 % 9299040500) LVIDS (test code = 2.80 cm 4462535571) Left Ventricular End 30.1 mL Systolic Volume by Teichholz Method (test code = 9020360) FS (test code = 30 % 4266135071) EF - 2D (test code = 57.50 % 48231602) LVOT diameter (test 2.36 cm code = 0985798221) LVOT area (test code = 4.40 cm2 5967870888) Ao root diam (test code 3.50 cm = 9762092308) Aortic root (test code 3.5 cm = 8894933196) Ao root annulus (test 3.5 cm code = 1591023585) LA size (test code = 4.0 cm 9257721679) LAV(MOD-sp4) (test code 57.40 mL = 3580805457) MV Peak E Ankur (test 56.4 cm/s code = 2155292613) MV Peak A Ankur (test 56.4 cm/s code = 8403326878) E/A ratio (test code = ratio 8600508413) MV valve area p 1/2 4.30 cm2 method (test code = 1445140323) MV dec slope (test code 326.30 cm/s2 = 4636549102) MV P1/2t max ankur (test 56.80 cm/s code = 8612137517) MV Prop V (test code = 93.90 cm/s 3845668207) Tapse (test code = 2.8 cm 3395598835) LVOT stroke volume 65.00 cm3 (test code = 2824152094) LVOT peak ankur (test 74.2 cm/s code = 2484626205) LVOT mn grad (test code mmHg = 2674221205) AV LVOT peak gradient mmHg (test code = 4991166375) LVOT peak VTI (test 14.8 cm code = 2042564067) LV V1 mean (test code = 49.70 cm/s 6011679020) Aortic valve mean 56.3 cm/s velocity (test code = 5438532796) Ao peak ankur (test code 89.6 cm/s = 4681719961) Ao VTI (test code = 15.2 cm 0667739871) AV area by cont VTI 4.3 cm2 (test code = 8356034897) AV area peak ankur (test 3.6 cm2 code = 2544804167) Ao max PG (test code = 3.20 mm[Hg] 9331797528) AV peak gradient (test mmHg code = 8513996276) AV valve area (test 4.30 cm2 code = 2433572725) AV mean gradient (test mmHg code = 4264520798) LA volume (BP) (test 55.8 mL code = 2131854777) LAV(MOD-sp2) (test code 51.80 mL = 4484448963) LA Volume Index (BP) 24.2 mL/m2 (test code = 8785058253) BSA (test code = 2.30 m2 3439915449) Radiology Study observation (narrative) (test code = 52812-0) ALTAGRACIA (test code = ALTAGRACIA) ?Left?Ventricle: Left ventricle size is normal. Increased wall thickness. There is concentric remodeling. Normal wall motion. Normal systolic function with a visually estimated EF of 55 - 60%. Normal diastolic function. ?Right?Ventricle: Right ventricle size is normal. Normal systolic function. ?Left?Atrium: Left atrium size is normal. ?Right?Atrium: Right atrium size is normal. ?Tricuspid?Valve: Insufficient tricuspid regurgitation jet to estimate RVSP. ?Aorta: Normal sized aortic root. ?Pericardium: No pericardial effusion. Left VentricleLeft ventricle size is normal. Increased wall thickness. There is concentric remodeling. Normal wall motion. Normal systolic function with a visually estimated EF of 55 - 60%. Normal diastolic function.Right VentricleRight ventricle size is normal. Normal systolic function.Left AtriumLeft atrium size is normal.Right AtriumRight atrium size is normal.IVC/SVCIVC diameter is less than or equal to 21 mm and decreases greater than 50% during inspiration; therefore the estimated right atrial pressure is normal (~0-5 mmHg).Mitral ValveMitral valve structure is normal.Tricuspid ValveTricuspid valve structure is normal. Insufficient tricuspid regurgitation jet to estimate RVSP.Aortic ValveNot well visualized. No hemodynamically significant .Pulmonic ValveNot well visualized.Ascending AortaNormal sized aortic root.PericardiumThe pericardium is normal. No pericardial effusion.Study DetailsStudy quality was adequate. A complete echocardiogram was performed using 2D. [facility] GLUCOSE (AUTOMATED)2022-07-07 17:35:20 Test Item Value Reference Range Interpretation Comments POCT GLU (test code = 9257124746) 144 mg/dL 70-110 H Lab Interpretation (test code = Abnormal 77042-7) [facility] GLUCOSE (AUTOMATED)2022-07-07 17:35:20 Test Item Value Reference Range Interpretation Comments POCT GLU (test code = 9619170889) 144 mg/dL 70-110 H Lab Interpretation (test code = Abnormal 62952-9) [facility] / [id number] 16:15:33 Test Item Value Reference Range Interpretation Comments PROTIME PATIENT (test See_Comment [Auto mated message] code = 5964-2) The system [employer] generated this result transmitted ref erence range: 10.1 - 1 2.6 Seconds. The re ference range was not u sed to interpret this result as normal/abnor mal. INR (test code = 6301-6) Nor mal INR <1.1; Warfarin Therap eutic range 2.0 to 3. 0 or 2.5 to 3.5, dep ending upon the indica tions. Lab Interpretation (test Normal code = 66305-7) [facility] 16:15:33 Test Item Value Reference Range Interpretation Comments APTT Patient (test code See_Comment H [Au tomated message] = 3173-2) The system [employer] generated this result transmitted ref erence range: 26 - 36 Seconds. The reference range was not used to int erpret this result as normal/abnormal . Lab Interpretation (test Abnormal code = 23798-9) [facility] / [id number] 16:15:33 Test Item Value Reference Range Interpretation Comments PROTIME PATIENT (test See_Comment [Auto mated message] code = 5964-2) The system [employer] generated this result transmitted ref erence range: 10.1 - 1 2.6 Seconds. The re ference range was not u sed to interpret this result as normal/abnor mal. INR (test code = 6301-6) Nor mal INR <1.1; Warfarin Therap eutic range 2.0 to 3. 0 or 2.5 to 3.5, dep ending upon the indica tions. Lab Interpretation (test Normal code = 69304-0) [facility] 16:15:33 Test Item Value Reference Range Interpretation Comments APTT Patient (test code See_Comment H [Au tomated message] = 3173-2) The system [employer] generated this result transmitted ref erence range: 26 - 36 Seconds. The reference range was not used to int erpret this result as normal/abnormal . Lab Interpretation (test Abnormal code = 55921-2) [facility] [id number] 11:09:07 Test Item Value Reference Interpretation Comments Range TROPONIN I (test 0.011 ng/mL See_Comment [Automated code = 6197421720) message] The system which generated this result transmitted reference range : <=0.034. The reference range was not used to interpret this result as normal/abnormal . ALTAGRACIA (test code = Reference (Normal) ALTAGRACIA) Range (defined by the 99th percentile reference limit): <= 0.034 ng/mL Note: Cardiac troponin begins to rise 3-4 hours after the onset of ischemia. Repeat in 4-6 hours if the sample was drawn within 3-4 hours of the onset of the symptom and found normal. Diagnosis of myocardial injury is made with acute changes in cTn concentrations with at least one serial sample above the 99th percentile upper reference limit (URL), taken together with the patient's clinical presentation. Biotin has been reported to cause a negative bias, interpret results relative to patient's use of biotin. Lab Interpretation Normal (test code = 57081-5) [facility] [id number] 11:09:07 Test Item Value Reference Interpretation Comments Range TROPONIN I (test 0.011 ng/mL See_Comment [Automated code = 0382100036) message] The system which generated this result transmitted reference range : <=0.034. The reference range was not used to interpret this result as normal/abnormal . ALTAGRACIA (test code = Reference (Normal) ALTAGRACIA) Range (defined by the 99th percentile reference limit): <= 0.034 ng/mL Note: Cardiac troponin begins to rise 3-4 hours after the onset of ischemia. Repeat in 4-6 hours if the sample was drawn within 3-4 hours of the onset of the symptom and found normal. Diagnosis of myocardial injury is made with acute changes in cTn concentrations with at least one serial sample above the 99th percentile upper reference limit (URL), taken together with the patient's clinical presentation. Biotin has been reported to cause a negative bias, interpret results relative to patient's use of biotin. Lab Interpretation Normal (test code = 31154-8) [facility] METABOLIC PANEL (NA, K, CL, CO2, GLUCOSE, BUN, CREATININE, CA)2022-07-07 10:58:26 Test Item Value Reference Range Interpretation Comments NA (test code = 137 mmol/L 135-145 0715566286) K (test code = 4.2 mmol/L 3.5-5.0 3623963419) CL (test code = 105 mmol/L 98-108 8364623782) CO2 TOTAL (test code = 28 mmol/L 23-31 1849112081) AGAP (test code = 2-16 1271611376) BUN (test code = 26 mg/dL 7-23 H 4302255560) GLUCOSE (test code = 111 mg/dL 70-110 H 9143586887) CREATININE (test code = 0.87 mg/dL 0.60-1.25 7371443611) CALCIUM (test code = 8.4 mg/dL 8.6-10.6 L 6690413080) eGFR (test code = mL/min/1.73m2 6309950265) ALTAGRACIA (test code = ALTAGRACIA) Association of [...] tests). Lab Interpretation Abnormal (test code = 16905-2) [facility] Test Item Value Reference Range Interpretation Comments MAGNESIUM (test code = 1678081387) 1.8 mg/dL 1.7-2.4 Lab Interpretation (test code = Normal 41654-7) [facility] 10:58:26 Test Item Value Reference Range Interpretation Comments PHOSPHORUS (test code = 8343724861) 3.8 mg/dL 2.5-5.0 Lab Interpretation (test code = Normal 54887-2) [facility] (NA, K, CL, CO2, GLUCOSE, BUN, CREATININE, CA)2022-07-07 10:58:26 Test Item Value Reference Range Interpretation Comments NA (test code = 137 mmol/L 135-145 3476634141) K (test code = 4.2 mmol/L 3.5-5.0 4232116693) CL (test code = 105 mmol/L 98-108 5180366348) CO2 TOTAL (test code = 28 mmol/L 23-31 6001556790) AGAP (test code = 2-16 3707609341) BUN (test code = 26 mg/dL 7-23 H 3419593715) GLUCOSE (test code = 111 mg/dL 70-110 H 2870249284) CREATININE (test code = 0.87 mg/dL 0.60-1.25 5911648689) CALCIUM (test code = 8.4 mg/dL 8.6-10.6 L 5777219244) eGFR (test code = mL/min/1.73m2 7546294974) ALTAGRACIA (test code = ALTAGRACIA) Association of [...] tests). Lab Interpretation Abnormal (test code = 80082-6) [facility] 10:58:26 Test Item Value Reference Range Interpretation Comments MAGNESIUM (test code = 9899242180) 1.8 mg/dL 1.7-2.4 Lab Interpretation (test code = Normal 08307-1) [facility] 10:58:26 Test Item Value Reference Range Interpretation Comments PHOSPHORUS (test code = 0119761360) 3.8 mg/dL 2.5-5.0 Lab Interpretation (test code = Normal 41937-8) [facility] [id number] 10:52:43 Test Item Value Reference Range Interpretation Comments WBC (test code = See_Comment [Automated message] 6690-2) The system [employer] generated this result transmitted ref erence range: 4.20 - 1 0.70 10*3/?L. The re ference range was not u sed to interpret this result as normal/abnor mal. RBC (test code = See_Comment [Automated message] 789-8) The system [employer] generated this result transmitted ref erence range: 4.26 - 5 .52 10*6/?L. The re ference range was not u sed to interpret this result as normal/abnor mal. HGB (test code = 13.9 g/dL 12.2-16.4 718-7) HCT (test code = 39.8 % 38.4-49.3 4544-3) MCV (test code = 88.8 fL 81.7-95.6 787-2) MCH (test code = 31.0 pg 26.1-32.7 785-6) MCHC (test code = 34.9 g/dL 31.2-35.0 786-4) RDW-SD (test code 40.3 fL 38.5-51.6 = 52166-1) RDW-CV (test code 12.3 % 12.1-15.4 = 788-0) PLT (test code = See_Comment [Automated message] 777-3) The system [employer] generated this result transmitted ref erence range: 150 - 32 8 10*3/?L. The re ference range was not u sed to interpret this result as normal/abnor mal. MPV (test code = 10.0 fL 9.8-13.0 46783-5) NRBC/100 WBC (test See_Comment [Automat ed message] code = 6448007057) The syste m which generated this result transmitted ref erence range: 0.0 - 10 .0 /100 WBCs. The refer ence range was not u sed to interpret this result as normal/abnor mal. NRBC x10^3 (test See_Comment [Automated message] code = 1188693515) The syste m which generated this result transmitted ref erence range: 10*3/?L. The reference range was not used to interpr et this result as normal/abnormal . GRAN MAT (NEUT) % 56.8 % (test code = 770-8) IMM GRAN % (test 0.30 % code = 5241966839) LYMPH % (test code 29.7 % = 736-9) MONO % (test code 10.7 % = 5905-5) EOS % (test code = 2.0 % 713-8) BASO % (test code 0.5 % = 706-2) GRAN MAT 4.91 10*3/uL 1.99-6.95 x10^3(ANC) (test code = 0688647450) IMM GRAN x10^3 0.03 10*3/uL 0.00-0.06 (test code = 8259353308) LYMPH x10^3 (test 2.56 10*3/uL 1.09-3.23 code = 731-0) MONO x10^3 (test 0.92 10*3/uL 0.36-1.02 code = 742-7) EOS x10^3 (test 0.17 10*3/uL 0.06-0.53 code = 711-2) BASO x10^3 (test 0.04 10*3/uL 0.01-0.09 code = 704-7) [facility] WITH [id number] 10:52:43 Test Item Value Reference Range Interpretation Comments WBC (test code = See_Comment [Automated message] 6290-2) The system [employer] generated this result transmitted ref erence range: 4.20 - 1 0.70 10*3/?L. The re ference range was not u sed to interpret this result as normal/abnor mal. RBC (test code = See_Comment [Automated message] 889-8) The system [employer] generated this result transmitted ref erence range: 4.26 - 5 .52 10*6/?L. The re ference range was not u sed to interpret this result as normal/abnor mal. HGB (test code = 13.9 g/dL 12.2-16.4 718-7) HCT (test code = 39.8 % 38.4-49.3 4544-3) MCV (test code = 88.8 fL 81.7-95.6 787-2) MCH (test code = 31.0 pg 26.1-32.7 785-6) MCHC (test code = 34.9 g/dL 31.2-35.0 786-4) RDW-SD (test code 40.3 fL 38.5-51.6 = 21149-9) RDW-CV (test code 12.3 % 12.1-15.4 = 788-0) PLT (test code = See_Comment [Automated message] 467-3) The system [employer] generated this result transmitted ref erence range: 150 - 32 8 10*3/?L. The re ference range was not u sed to interpret this result as normal/abnor mal. MPV (test code = 10.0 fL 9.8-13.0 12626-1) NRBC/100 WBC (test See_Comment [Automat ed message] code = 7044941941) The syste m which generated this result transmitted ref erence range: 0.0 - 10 .0 /100 WBCs. The refer ence range was not u sed to interpret this result as normal/abnor mal. NRBC x10^3 (test See_Comment [Automated message] code = 2687243018) The syste m which generated this result transmitted ref erence range: 10*3/?L. The reference range was not used to interpr et this result as normal/abnormal . GRAN MAT (NEUT) % 56.8 % (test code = 770-8) IMM GRAN % (test 0.30 % code = 6341133228) LYMPH % (test code 29.7 % = 736-9) MONO % (test code 10.7 % = 5905-5) EOS % (test code = 2.0 % 713-8) BASO % (test code 0.5 % = 706-2) GRAN MAT 4.91 10*3/uL 1.99-6.95 x10^3(ANC) (test code = 0963707339) IMM GRAN x10^3 0.03 10*3/uL 0.00-0.06 (test code = 8584037196) LYMPH x10^3 (test 2.56 10*3/uL 1.09-3.23 code = 731-0) MONO x10^3 (test 0.92 10*3/uL 0.36-1.02 code = 742-7) EOS x10^3 (test 0.17 10*3/uL 0.06-0.53 code = 711-2) BASO x10^3 (test 0.04 10*3/uL 0.01-0.09 code = 704-7) [facility] GLUCOSE (AUTOMATED)2022-07-07 03:54:02 Test Item Value Reference Range Interpretation Comments POCT GLU (test code = 5820977695) 74 mg/dL 70-110 Lab Interpretation (test code = Normal 36136-7) [facility] 03:54:02 Test Item Value Reference Range Interpretation Comments POCT GLU (test code = 9410311835) 74 mg/dL 70-110 Lab Interpretation (test code = Normal 82704-8) [facility] [id number] 03:08:06 Test Item Value Reference Interpretation Comments Range TROPONIN I (test 0.008 ng/mL See_Comment [Automated code = 9022671048) message] The system which generated this result transmitted reference range : <=0.034. The reference range was not used to interpret this result as normal/abnormal . ALTAGRACIA (test code = Reference (Normal) ALTAGRACIA) Range (defined by the 99th percentile reference limit): <= 0.034 ng/mL Note: Cardiac troponin begins to rise 3-4 hours after the onset of ischemia. Repeat in 4-6 hours if the sample was drawn within 3-4 hours of the onset of the symptom and found normal. Diagnosis of myocardial injury is made with acute changes in cTn concentrations with at least one serial sample above the 99th percentile upper reference limit (URL), taken together with the patient's clinical presentation. Biotin has been reported to cause a negative bias, interpret results relative to patient's use of biotin. Lab Interpretation Normal (test code = 12021-0) [facility] [id number] 03:08:06 Test Item Value Reference Interpretation Comments Range TROPONIN I (test 0.008 ng/mL See_Comment [Automated code = 4906791910) message] The system which generated this result transmitted reference range : <=0.034. The reference range was not used to interpret this result as normal/abnormal . ALTAGRACIA (test code = Reference (Normal) ALTAGRACIA) Range (defined by the 99th percentile reference limit): <= 0.034 ng/mL Note: Cardiac troponin begins to rise 3-4 hours after the onset of ischemia. Repeat in 4-6 hours if the sample was drawn within 3-4 hours of the onset of the symptom and found normal. Diagnosis of myocardial injury is made with acute changes in cTn concentrations with at least one serial sample above the 99th percentile upper reference limit (URL), taken together with the patient's clinical presentation. Biotin has been reported to cause a negative bias, interpret results relative to patient's use of biotin. Lab Interpretation Normal (test code = 92912-5) [place] [address] [employer] ROUTINE [id number] 23:04:26 Test Item Value Reference Range Interpretation Comments Lab Interpretation (test code = Abnormal 69292-3) [place] [address] [employer] ROUTINE [id number] 23:04:26 Test Item Value Reference Range Interpretation Comments Lab Interpretation (test code = Abnormal 54129-8) [id number] 20:55:00 Test Item Value Reference Interpretation Comments Range D-DIMER (test code = See_Comment [Autom ated 6662826729) message] The system which generated this result transmitted reference range : <0.41 ?g/mL (FEU). The reference range was not used to interpret this result as normal/abnormal . ALTAGRACIA (test code = This test may be ALTAGRCAIA) used in conjunction with a clinical pretest [...] diagnosis. Lab Interpretation Normal (test code = 77024-1) [id number] 20:55:00 Test Item Value Reference Interpretation Comments Range D-DIMER (test code = See_Comment [Autom ated 0116376005) message] The system which generated this result transmitted reference range : <0.41 ?g/mL (FEU). The reference range was not used to interpret this result as normal/abnormal . ALTAGRCAIA (test code = This test may be [...] diagnosis. Lab Interpretation Normal (test code = 84163-4) [facility] [id number] 20:33:08 Test Item Value Reference Interpretation Comments Range TROPONIN I (test 0.008 ng/mL See_Comment [Automated code = 4559342160) message] The system which generated this result transmitted reference range : <=0.034. The reference range was not used to interpret this result as normal/abnormal . ALTAGRACIA (test code = Reference (Normal) ALTAGRACIA) Range (defined by the 99th percentile reference limit): <= 0.034 ng/mL Note: Cardiac troponin begins to rise 3-4 hours after the onset of ischemia. Repeat in 4-6 hours if the sample was drawn within 3-4 hours of the onset of the symptom and found normal. Diagnosis of myocardial injury is made with acute changes in cTn concentrations with at least one serial sample above the 99th percentile upper reference limit (URL), taken together with the patient's clinical presentation. Biotin has been reported to cause a negative bias, interpret results relative to patient's use of biotin. Lab Interpretation Normal (test code = 87551-7) [facility] [id number] 20:33:08 Test Item Value Reference Interpretation Comments Range TROPONIN I (test 0.008 ng/mL See_Comment [Automated code = 4369844119) message] The system which generated this result transmitted reference range : <=0.034. The reference range was not used to interpret this result as normal/abnormal . ALTAGRACIA (test code = Reference (Normal) ALTAGRACIA) Range (defined by the 99th percentile reference limit): <= 0.034 ng/mL Note: Cardiac troponin begins to rise 3-4 hours after the onset of ischemia. Repeat in 4-6 hours if the sample was drawn within 3-4 hours of the onset of the symptom and found normal. Diagnosis of myocardial injury is made with acute changes in cTn concentrations with at least one serial sample above the 99th percentile upper reference limit (URL), taken together with the patient's clinical presentation. Biotin has been reported to cause a negative bias, interpret results relative to patient's use of biotin. Lab Interpretation Normal (test code = 80903-6) [facility] [id number] 20:30:07 Test Item Value Reference Range Interpretation Comments NT-proBNP (test code 300 pg/mL See_Comment H [Autom ated = 6004496197) message] The system which generated this result transmitted reference range : <=125. The reference range was not used to interpret this result as normal/abnormal . ALTAGRACIA (test code = ALTAGRACIA) Biotin has been reported to cause a negative bias, interpret results relative to patient's use of biotin. Lab Interpretation Abnormal (test code = 82721-1) [facility] DNA-[id number] 20:30:07 Test Item Value Reference Range Interpretation Comments NT-proBNP (test code 300 pg/mL See_Comment H [Autom ated = 1523988703) message] The system which generated this result transmitted reference range : <=125. The reference range was not used to interpret this result as normal/abnormal . ALTAGRACIA (test code = ALTAGRACIA) Biotin has been reported to cause a negative bias, interpret results relative to patient's use of biotin. Lab Interpretation Abnormal (test code = 74777-7) [facility] [id number] 20:26:08 Test Item Value Reference Range Interpretation Comments APTT Patient (test See_Comment [Automat ed code = 3173-2) message] The system which generated this result transmitted reference range : 23 - 38 Seconds . The reference range was not used to interpr et this result as normal/abnormal . ALTAGRACIA (test code = ALTAGRACIA) The [facility] patient population mean normal value for aPTT is 30 seconds. Lab Interpretation Normal (test code = 62864-9) [facility] [id number] 20:26:08 Test Item Value Reference Range Interpretation Comments APTT Patient (test See_Comment [Automat ed code = 3173-2) message] The system which generated this result transmitted reference range : 23 - 38 Seconds . The reference range was not used to interpr et this result as normal/abnormal . ALTAGRACIA (test code = ALTAGRACIA) The [facility] patient population mean normal value for aPTT is 30 seconds. Lab Interpretation Normal (test code = 96351-8) [facility] / [id number] 20:23:46 Test Item Value Reference Range Interpretation Comments PROTIME PATIENT (test See_Comment [Auto mated message] code = 5964-2) The system [employer] generated this result transmitted ref erence range: 12.0 - 1 4.7 Seconds. The re ference range was not u sed to interpret this result as normal/abnor mal. INR (test code = 6301-6) Nor mal INR <1.1; Warfarin Therap eutic range 2.0 to 3. 0 or 2.5 to 3.5, dep ending upon the indica tions. Lab Interpretation (test Normal code = 03821-0) [facility] / [id number] 20:23:46 Test Item Value Reference Range Interpretation Comments PROTIME PATIENT (test See_Comment [Auto mated message] code = 5964-2) The system ich generated this result transmitted ref erence range: 12.0 - 1 4.7 Seconds. The re ference range was not u sed to interpret this result as normal/abnor mal. INR (test code = 6301-6) Nor mal INR <1.1; Warfarin Therap eutic range 2.0 to 3. 0 or 2.5 to 3.5, dep ending upon the indica tions. Lab Interpretation (test Normal code = 09894-5) [facility] 20:21:28 Test Item Value Reference Range Interpretation Comments MAGNESIUM (test code = 9364611973) 1.7 mg/dL 1.7-2.4 Lab Interpretation (test code = Normal 61966-5) [facility] Test Item Value Reference Range Interpretation Comments MAGNESIUM (test code = 8310742669) 1.7 mg/dL 1.7-2.4 Lab Interpretation (test code = Normal 21464-7) [facility]. METABOLIC PANEL (99719)2022-07-06 20:21:08 Test Item Value Reference Range Interpretation Comments NA (test code = 137 mmol/L 135-145 2827881801) K (test code = 4.6 mmol/L 3.5-5.0 5424765933) CL (test code = 104 mmol/L 98-108 6419789983) CO2 TOTAL (test code = 25 mmol/L 23-31 1595476080) AGAP (test code = 2-16 0946530987) BUN (test code = 34 mg/dL 7-23 H 8899462910) GLUCOSE (test code = 176 mg/dL 70-110 H 7090534773) CREATININE (test code = 1.16 mg/dL 0.60-1.25 3718195968) TOTAL BILI (test code = 0.6 mg/dL 0.1-1.4 8313827842) CALCIUM (test code = 9.3 mg/dL 8.6-10.6 9475034536) T PROTEIN (test code = 6.9 g/dL 6.3-8.2 0965831556) ALBUMIN (test code = 4.3 g/dL 3.5-5.0 5911515281) ALK PHOS (test code = 100 U/L 34-122 9906741335) ALTv (test code = 38 U/L 5-50 1742-6) AST(SGOT) (test code = 29 U/L 13-40 2679983978) eGFR (test code = mL/min/1.73m2 7858088754) ALTAGRACIA (test code = ALTAGRACIA) Association of [...] tests). Lab Interpretation Abnormal (test code = 08721-9) [facility]. METABOLIC PANEL (74247)2022-07-06 20:21:08 Test Item Value Reference Range Interpretation Comments NA (test code = 137 mmol/L 135-145 7055056561) K (test code = 4.6 mmol/L 3.5-5.0 7922324341) CL (test code = 104 mmol/L 98-108 9549988537) CO2 TOTAL (test code = 25 mmol/L 23-31 0715125263) AGAP (test code = 2-16 9448277394) BUN (test code = 34 mg/dL 7-23 H 4673406830) GLUCOSE (test code = 176 mg/dL 70-110 H 1254875077) CREATININE (test code = 1.16 mg/dL 0.60-1.25 5559112069) TOTAL BILI (test code = 0.6 mg/dL 0.1-1.6 6263298445) CALCIUM (test code = 9.3 mg/dL 8.6-10.6 0095065604) T PROTEIN (test code = 6.9 g/dL 6.3-8.2 7885647678) ALBUMIN (test code = 4.3 g/dL 3.5-5.0 1206256840) ALK PHOS (test code = 100 U/L 34-122 9670434465) ALTv (test code = 38 U/L 5-50 1742-6) AST(SGOT) (test code = 29 U/L 13-40 2485782762) eGFR (test code = mL/min/1.73m2 0386391639) ALTAGRACIA (test code = ALTAGRACIA) Association of [...] tests). Lab Interpretation Abnormal (test code = 92966-0) [facility]:21[facility]07 Test Item Value Reference Range Interpretation Comments LIPASE (test code = 6727435020) 146 U/L 0-220 Lab Interpretation (test code = Normal 69565-1) [facility] 20:21:07 Test Item Value Reference Range Interpretation Comments LIPASE (test code = 9034320799) 146 U/L 0-220 Lab Interpretation (test code = Normal 72457-1) [facility] (A1C)2022-07-06 20:19:57 Test Item Value Reference Range Interpretation Comments HGB A1C (test code = 7.0 % 4.0-5.7 H 4548-4) ALTAGRACIA (test code = ALTAGRACIA) Reference RangesNormal: <5.7%Prediabetes: 5.7 - 6.4%Diabetes: > 6.5% Lab Interpretation (test Abnormal code = 78148-3) [facility]2022-07-06 20:19:57 Test Item Value Reference Range Interpretation Comments HGB A1C (test code = 7.0 % 4.0-5.7 H 4548-4) ALTAGRACIA (test code = ALTAGRACIA) Reference RangesNormal: <5.7%Prediabetes: 5.7 - 6.4%Diabetes: > 6.5% Lab Interpretation (test Abnormal code = 04802-0) [facility] [id number] 20:07:43 Test Item Value Reference Range Interpretation Comments WBC (test code = See_Comment H [Automated 5063-2) message] The sy stem which generated this result transmitted reference range : 4.20 - 10.70 10*3/?L. The reference range was not used to interpret this result as normal/abnormal . RBC (test code = See_Comment [Automated 614-8) message] The sy stem which generated this result transmitted reference range : 4.26 - 5.52 10*6/?L. The reference range was not used to interpret this result as normal/abnormal . HGB (test code = 15.4 g/dL 12.2-16.4 718-7) HCT (test code = 44.3 % 38.4-49.3 4544-3) MCV (test code = 89.1 fL 81.7-95.6 787-2) MCH (test code = 31.0 pg 26.1-32.7 785-6) MCHC (test code = 34.8 g/dL 31.2-35.0 786-4) RDW-SD (test code = 40.3 fL 38.5-51.6 47026-8) RDW-CV (test code = 12.3 % 12.1-15.4 788-0) PLT (test code = See_Comment [Automated 197-3) message] The sy stem which generated this result transmitted reference range : 150 - 328 10*3/ ?L. The reference r cristin was not used to interpret this result as normal/abnormal . MPV (test code = 10.5 fL 9.8-13.0 87939-9) NRBC/100 WBC (test See_Comment [Automat ed code = 4541535279) message] The system which generated this result transmitted reference range : 0.0 - 10.0 /100 WBCs. The refer ence range was not u sed to interpret th is result as normal/abnormal . NRBC x10^3 (test code See_Comment [Auto mated = 8515119106) message] The s ystem which generated this result transmitted reference range : 10*3/?L. The reference range was not used to interpret this result as normal/abnormal . GRAN MAT (NEUT) % 61.5 % (test code = 770-8) IMM GRAN % (test code 0.30 % = 3934429468) LYMPH % (test code = 25.7 % 736-9) MONO % (test code = 10.5 % 5905-5) EOS % (test code = 1.5 % 713-8) BASO % (test code = 0.5 % 706-2) GRAN MAT x10^3(ANC) 6.69 10*3/uL 1.99-6.95 (test code = 2092938408) IMM GRAN x10^3 (test 0.03 10*3/uL 0.00-0.06 code = 0265382647) LYMPH x10^3 (test code 2.79 10*3/uL 1.09-3.23 = 731-0) MONO x10^3 (test code 1.14 10*3/uL 0.36-1.02 H = 742-7) EOS x10^3 (test code = 0.16 10*3/uL 0.06-0.53 711-2) BASO x10^3 (test code 0.05 10*3/uL 0.01-0.09 = 704-7) Lab Interpretation Abnormal (test code = 63832-3) [facility] WITH [id number] 20:07:43 Test Item Value Reference Range Interpretation Comments [...] g/dL 12.2-16.4 718-7) HCT (test code = 44.3 % 38.4-49.3 4544-3) MCV (test code = 89.1 fL 81.7-95.6 787-2) MCH (test code = 31.0 pg 26.1-32.7 785-6) MCHC (test code = 34.8 g/dL 31.2-35.0 786-4) RDW-SD (test code = 40.3 fL 38.5-51.6 24802-6) RDW-CV (test code = 12.3 % 12.1-15.4 788-0) PLT (test code = See_Comment [Automated 777-3) message] The sy stem which generated this result transmitted reference range : 150 - 328 10*3/ ?L. The reference r cristin was not used to interpret this result as normal/abnormal . MPV (test code = 10.5 fL 9.8-13.0 39737-6) NRBC/100 WBC (test See_Comment [Automat ed code = 5230617710) message] The system which generated this result transmitted reference range : 0.0 - 10.0 /100 WBCs. The refer ence range was not u sed to interpret th is result as normal/abnormal . NRBC x10^3 (test code See_Comment [Auto mated = 6535035306) message] The s ystem which generated this result transmitted reference range : 10*3/?L. The reference range was not used to interpret this result as normal/abnormal . GRAN MAT (NEUT) % 61.5 % (test code = 770-8) IMM GRAN % (test code 0.30 % = 2129502797) LYMPH % (test code = 25.7 % 736-9) MONO % (test code = 10.5 % 5905-5) EOS % (test code = 1.5 % 713-8) BASO % (test code = 0.5 % 706-2) GRAN MAT x10^3(ANC) 6.69 10*3/uL 1.99-6.95 (test code = 1379554248) IMM GRAN x10^3 (test 0.03 10*3/uL 0.00-0.06 code = 7505517442) LYMPH x10^3 (test code 2.79 10*3/uL 1.09-3.23 = 731-0) MONO x10^3 (test code 1.14 10*3/uL 0.36-1.02 H = 742-7) EOS x10^3 (test code = 0.16 10*3/uL 0.06-0.53 711-2) BASO x10^3 (test code 0.05 10*3/uL 0.01-0.09 = 704-7) Lab Interpretation Abnormal (test code = 39924-3) [facility] Notes Date/Time Note Provider Source 2023-03-29 08:15:00-00:00 Formatting of this note is d ifferent from the original. [facility] Images from the original note were not included. Venipuncture collection perf ormed by clean technique on the left anticubitus. Total of 1 attempts were made. Slight pressure and a bandage/dressing were applied to the site(s). The patient experienced n o complications. The followi ng specimens were processed according to instructions and sent to [facility] laboratories per lab order on today: LT BLUE SST 1 RED LAV 1 PPT DK GREEN (LiHep) DK GREEN (SodH) MORALES DK BLUE (K2) DK BLUE (S) ACD Blood Culture NIPT/NTD Patient has been identified by and name and was provided with cup, antiseptic towelette, and clean catch instructions. 2 urine specimen(s) sent. Unpreserved 2 Urine Culture Aptima tube Other urine
[2023-03-29] MEDS ORDERED: IBUPROFEN 100 MG/5 ML UCUP ONE (17:58)
[2023-03-29 18:12] LABS: Absolute Lymphocytes (CBC) 2.4 K/uL (0.7-4.9); Hematocrit 45.9 % (39.6-49.0); Lymphocytes % 28.2 % (15.3-44.8); MCV 90.8 fL (80-100); MPV 8.2 fL (7.6-11.3); RBC Red Blood Cell Count 5.05 M/uL (4.33-5.43)
[2023-03-29] MEDS ORDERED: NITROGLYCERIN 1 GM PKT TD ONE (18:22)
[2023-03-29] MEDS ORDERED: MORPHINE 4 MG/ML SYR ONE (18:23)
[2023-03-29] MEDS ORDERED: ONDANSETRON 4 MG/2 ML VIAL ONE (18:23)
[2023-03-29] MEDS ORDERED: METOPROLOL TARTRATE 5 MG/5 ML INJ IV ONE (18:23)
--- NOTE | 2023-03-29 18:23 | RAD REPORT ---
EXAM DESCRIPTION: RAD - Chest Single View - 03/29/2023 6:11 pm CLINICAL HISTORY: CHEST PAIN Chest pain. COMPARISON: <Comparisons> FINDINGS: Portable technique limits examination quality. The lungs are grossly clear. The heart is normal in size. No displaced fractures. IMPRESSION: No acute intrathoracic process suspected.
[2023-03-29 18:31] LABS: Albumin 3.6 g/dL (3.4-5.0); Bilirubin Direct 0.1 mg/dL (0-0.2); Bilirubin Indirect, Calculated 0.5 mg/dL (0.2-0.8); Bilirubin Total 0.6 mg/dL (0.2-1.0); Magnesium 2.1 mg/dL (1.6-2.4); Potassium 3.8 mEq/L (3.5-5.1); Protein, Total 7.4 g/dL (6.4-8.2); Troponin High Sensitivity 17.1 pg/mL (<58.9)
--- NOTE | 2023-03-29 18:37 | ER ---
Nurse's Notes [facility] Name: Brett Kramer Age: 42 yrs Sex: Male : 1980 Arrival Date: 03/29/2023 Time: 17:32 Bed 18 Private MD: Diagnosis: Chest pain, unspecified;Atherosclerotic heart disease of [place] coronary artery with angina pectoris;Essential (primary) hypertension Presentation: 03/29 17:44 Chief complaint: Patient states: CHEST PAIN. Coronavirus screen: At this time, the dd1 client does not indicate any symptoms associated with coronavirus-19. Ebola Screen: No symptoms or risks identified at this time. Initial Sepsis Screen: Does the patient meet any 2 criteria? HR > 90 bpm. No. Patient's initial sepsis screen is negative. Does the patient have a suspected source of infection? No. Patient's initial sepsis screen is negative. Risk Assessment: Do you want to hurt yourself or someone else? Patient reports no desire to harm self or others. Onset of symptoms was March 29, 2023. 17:44 Method Of Arrival: Ambulatory dd1 17:44 Acuity: CLAIRE 3 dd1 Triage Assessment: 17:44 General: Appears uncomfortable. General: Behavior is cooperative, anxious, restless. dd1 Pain: Complains of pain in chest. Historical: - PMHx: 17:43 Diabetes - NIDDM; Hypertension; PE; db - PSHx: 17:43 Heart Stents; db - Immunization history:: Adult Immunizations up to date. - Social history:: Smoking status: Patient denies any tobacco usage or history of. - Family history:: not pertinent. Screenin:38 [facility] ED Fall Risk Assessment (Adult) History of falling in the last 3 months, db including since admission No falls in past 3 months (0 pts) Confusion or Disorientation No (0 pts) Intoxicated or Sedated No (0 pts) Impaired Gait No (0 pts) Mobility Assist Device Used No (0 pt) Altered Elimination No (0 pt) Score/Fall Risk Level 0 - 2 = Low Risk Oriented to surroundings, Maintained a safe environment. Abuse screen: Denies threats or abuse. Denies injuries from another. Nutritional screening: No deficits noted. Tuberculosis screening: No symptoms or risk factors identified. Assessment: 17:37 Reassessment: Patient appears in no apparent distress at this time. Patient and/or db family updated on plan of care and expected duration. Pain level reassessed. Patient is alert, oriented x 3, equal unlabored respirations, skin warm/dry/pink. PATIENT AMBULATORY TO ROOM. General: Appears in no apparent distress. comfortable, Behavior is calm, cooperative. Pain: Complains of pain in chest. Cardiovascular: Reports chest pain. 19:15 General: Appears comfortable, Behavior is calm, cooperative. Pain: Complains of pain in ha1 chest Pain does not radiate. Pain currently is 8 out of 10 on a pain scale. Quality of pain is described as pressure, Pain began gradually. Neuro: Level of Consciousness is awake, alert, obeys commands, Oriented to person, place, time, situation. Respiratory: Airway is patent Respiratory effort is even, unlabored, Respiratory pattern is regular, symmetrical. Musculoskeletal: Circulation, motion, and sensation intact. Range of motion: intact in all extremities. 19:32 Reassessment: Patient and/or family updated on plan of care and expected duration. Pain ha1 level reassessed. Patient is alert, oriented x 3, equal unlabored respirations, skin warm/dry/pink. pt. back from CT. 20:10 Reassessment: Patient and/or family updated on plan of care and expected duration. Pain ha1 level reassessed. Patient is alert, oriented x 3, equal unlabored respirations, skin warm/dry/pink. attempted to give report nurse unavailable. 21:33 Reassessment: Patient and/or family updated on plan of care and expected duration. Pain ha1 level reassessed. Patient is alert, oriented x 3, equal unlabored respirations, skin warm/dry/pink. Vital Signs: 17:44 BP 175 / 107; Pulse 103; Resp 22; Temp 98.9; Pulse Ox 98% ; Weight 117.48 kg; Height 5 dd1 ft. 8 in. ; Pain 9/10; 18:15 BP 172 / 101; Pulse 96; Resp 16; Pulse Ox 97% on R/A; db 18:25 BP 156 / 97; Pulse 89; Resp 16; Pulse Ox 97% on R/A; db 18:45 BP 155 / 99; Pulse 89; Resp 16; Pulse Ox 98% ; db 19:00 BP 158 / 91; Pulse 91; Resp 18; Pulse Ox 97% on R/A; db 19:15 BP 152 / 92; Pulse 93; Resp 18 S; Pulse Ox 99% on R/A; ha1 20:00 BP 140 / 90; Pulse 94; Resp 17 S; Pulse Ox 99% on R/A; ha1 17:44 Body Mass Index 39.38 (117.48 kg, 172.72 cm) dd1 17:44 Pain Scale: Adult dd1 Vitals: 18:15 Cardiac Rhythm Assessment Regular. db ED Course: 17:34 Patient arrived in ED. iw 17:35 Artur Moses MD is Attending Physician. cp3 17:37 Kamala To, KRISTINE is Primary Nurse. db 17:41 Inserted saline lock: 20 gauge in right antecubital area, using aseptic technique. kc6 Blood collected. Patient maintains SpO2 saturation greater than 95% on room air. 17:43 Patient has correct armband on for positive identification. Side rails up X2. Provided db Education on:. Client placed on continuous cardiac and pulse oximetry monitoring. NIBP monitoring applied. 17:44 Arm band placed on. dd1 17:45 Triage completed. dd1 17:47 EKG done, by ED staff, reviewed by Artur Moses MD. mm9 18:12 XRAY Chest (1 view) In Process Unspecified. EDMS 18:35 Korey Ordonez MD is Hospitalizing Provider. cp3 19:25 Chest For PE Angio CT In Process Unspecified. EDMS 20:29 No provider procedures requiring assistance completed. Patient admitted, IV remains in ha1 place. 20:56 Troponin High Sensitivity Sent. pf1 Administered Medications: 18:15 Drug: Nitroglycerin Transdermal Ointment 2 % 1 inches Route: Transdermal; Site: db anterior chest wall; 18:18 Drug: Metoprolol IVP 5 mg Route: IVP; Site: right antecubital; db 18:18 Drug: morphine IVP or IV 4 mg Route: IVP; Infused Over: 4 mins; Site: right antecubital;db 18:20 Drug: Ondansetron IVP 4 mg Route: IVP; Site: right antecubital; db Medication: 20:30 VIS not applicable for this client. ha1 Outcome: 18:36 Decision to Hospitalize by Provider. cp3 21:36 AMA AMA form signed ha1 21:36 Condition: stable 21:36 Discharge instructions given to patient, Instructed on The need for admission Demonstrated understanding of instructions. 21:38 Patient left the ED. ha1 Signatures: Dispatcher [employer] Artur Spaulding MD MD cp3 Jojo Hale, RN Shannan Powell RN RN ha1 Noemy De Leon RN RN calvin6 Kamala To, RN Tamy Hutton 9 Bailey Thomason RN RN pf1 Jorge Mclean RN RN dd1 Corrections: (The following items were deleted from the chart) :36 20:29 Admitted to Tele accompanied by tech, via wheelchair, room 430, with chart, ha1 ha1 : 20:29 Condition: stable ha1 ha1 :36 20:29 Discharge instructions given to patient, Instructed on the need for admit, ha1 Demonstrated understanding of instructions, ha1
--- NOTE | 2023-03-29 18:37 | EDPHYS ---
Physician Documentation [facility] Name: Brett Kramer Age: 42 yrs Sex: Male : 1980 Arrival Date: 03/29/2023 Time: 17:32 Bed 18 Private MD: ED Physician Artur Moses HPI: 03/29 18:37 This 42 yrs old Male presents to ER via Ambulatory with complaints of Chest cp3 Pain. 18:37 The patient or guardian reports chest pain that is located primarily in the substernal cp3 area, chest diffusely. Onset: 12 hour(s) ago. The pain radiates to Associated signs and symptoms: Pertinent positives: diaphoresis, nausea, shortness of breath. The chest pain is described as aching, a pressure. Duration: The patient or guardian reports multiple episodes, that are intermittent, the episodes last approximately 30 minute(s). Modifying factors: The symptoms are alleviated by nothing. the symptoms are aggravated by activity, movement. Severity of pain: At its worst the pain was severe today. The patient has experienced similar episodes in the past, several times. Historical: - PMHx: 17:43 Diabetes - NIDDM; Hypertension; PE; db - PSHx: 17:43 Heart Stents; db - Immunization history:: Adult Immunizations up to date. - Social history:: Smoking status: Patient denies any tobacco usage or history of. - Family history:: not pertinent. ROS: 18:37 Constitutional: Negative for fever, chills, and weight loss, Eyes: Negative for injury, cp3 pain, redness, and discharge, ENT: Negative for injury, pain, and discharge, Neck: Negative for injury, pain, and swelling, Respiratory: Negative for shortness of breath, cough, wheezing, and pleuritic chest pain, Abdomen/GI: Negative for abdominal pain, nausea, vomiting, diarrhea, and constipation, Back: Negative for injury and pain, : Negative for injury, bleeding, discharge, and swelling, MS/Extremity: Negative for injury and deformity, Skin: Negative for injury, rash, and discoloration, Neuro: Negative for headache, weakness, numbness, tingling, and seizure. 18:37 Cardiovascular: Positive for chest pain. Exam: 18:40 Constitutional: This is a well developed, well nourished patient who is awake, alert, cp3 and in no acute distress. Head/Face: Normocephalic, atraumatic. Eyes: Pupils equal round and reactive to light, extra-ocular motions intact. Lids and lashes normal. Conjunctiva and sclera are non-icteric and not injected. Cornea within normal limits. Periorbital areas with no swelling, redness, or edema. ENT: Nares patent. No nasal discharge, no septal abnormalities noted. Tympanic membranes are normal and external auditory canals are clear. Oropharynx with no redness, swelling, or masses, exudates, or evidence of obstruction, uvula midline. Mucous membranes moist. Neck: Trachea midline, no thyromegaly or masses palpated, and no cervical lymphadenopathy. Supple, full range of motion without nuchal rigidity, or vertebral point tenderness. No Meningismus. Chest/axilla: Normal chest wall appearance and motion. Nontender with no deformity. No lesions are appreciated. Cardiovascular: Regular rate and rhythm with a normal S1 and S2. No gallops, murmurs, or rubs. Normal PMI, no JVD. No pulse deficits. Respiratory: Lungs have equal breath sounds bilaterally, clear to auscultation and percussion. No rales, rhonchi or wheezes noted. No increased work of breathing, no retractions or nasal flaring. Abdomen/GI: Soft, non-tender, with normal bowel sounds. No distension or tympany. No guarding or rebound. No evidence of tenderness throughout. Back: No spinal tenderness. No costovertebral tenderness. Full range of motion. Neuro: Awake and alert, GCS 15, oriented to person, place, time, and situation. Cranial nerves II-XII grossly intact. Motor strength 5/5 in all extremities. Sensory grossly intact. Cerebellar exam normal. Normal gait. Psych: Awake, alert, with orientation to person, place and time. Behavior, mood, and affect are within normal limits. Vital Signs: 17:44 BP 175 / 107; Pulse 103; Resp 22; Temp 98.9; Pulse Ox 98% ; Weight 117.48 kg; Height 5 dd1 ft. 8 in. ; Pain 9/10; 18:15 BP 172 / 101; Pulse 96; Resp 16; Pulse Ox 97% on R/A; db 18:25 BP 156 / 97; Pulse 89; Resp 16; Pulse Ox 97% on R/A; db 18:45 BP 155 / 99; Pulse 89; Resp 16; Pulse Ox 98% ; db 19:00 BP 158 / 91; Pulse 91; Resp 18; Pulse Ox 97% on R/A; db 19:15 BP 152 / 92; Pulse 93; Resp 18 S; Pulse Ox 99% on R/A; ha1 20:00 BP 140 / 90; Pulse 94; Resp 17 S; Pulse Ox 99% on R/A; ha1 17:44 Body Mass Index 39.38 (117.48 kg, 172.72 cm) dd1 17:44 Pain Scale: Adult dd1 MDM: 17:35 Patient medically screened. cp3 18:40 Differential diagnosis: abnormal EKG, acute myocardial infarction, coronary artery cp3 disease chest wall pain, congestive heart failure pericarditis, pleurisy, pneumonia, pulmonary embolus, stable angina, unstable angina. HEART Score: History: Highly Suspicious (2), ECG: Non specific repolarization disturbance / LBTB / PM (1), Age: < or = 45 years (0), Risk Factors: > or = 3 Risk factors for atherosclerotic disease (2), [Hypercholesterolemia] [Hypertension] [DM] Troponin: < or = 1 x Normal Limit (0), Total Score = 5. Data reviewed: vital signs, nurses notes, EKG, radiologic studies, plain films. Consideration of Admission/Observation Patient was admitted/placed on observation. Management of patient was discussed with the following: Hospitalist: provider for Dr. José Luis Ramirez, LORNE. ED course: 1741: EKG interpreted by me, normal sinus rhythm, right bundle branch block, QT 412. ED course: Blood pressure and heart rate improved after pain control, metoprolol, nitro. 03/29 17:59 Order name: Basic Metabolic Panel; Complete Time: 18:31 cp3 03/29 17:59 Order name: CBC with Diff; Complete Time: 18:28 cp3 03/29 17:59 Order name: D-Dimer; Complete Time: 18:28 cp3 03/29 17:59 Order name: LFT's; Complete Time: 18:31 cp3 03/29 17:59 Order name: Magnesium; Complete Time: 18:31 cp3 03/29 17:59 Order name: Troponin HS; Complete Time: 18:31 cp3 03/29 20:40 Order name: Troponin High Sensitivity la1 03/29 21:10 Order name: Troponin High Sensitivity; Complete Time: 21:16 EDMS 03/29 17:59 Order name: XRAY Chest (1 view); Complete Time: 18:28 cp3 03/29 18:48 Order name: Chest For PE Angio CT; Complete Time: 19:43 la1 03/29 17:59 Order name: EKG; Complete Time: 18:00 cp3 03/29 17:59 Order name: Cardiac monitoring; Complete Time: 18:00 cp3 03/29 17:59 Order name: EKG - Nurse/Tech; Complete Time: 18:00 cp3 03/29 17:59 Order name: IV Saline Lock; Complete Time: 18:00 cp3 03/29 17:59 Order name: Labs collected and sent; Complete Time: 19:07 cp3 03/29 17:59 Order name: O2 Per Protocol; Complete Time: 18:00 cp3 03/29 17:59 Order name: O2 Sat Monitoring; Complete Time: 18:00 cp3 Administered Medications: 18:15 Drug: Nitroglycerin Transdermal Ointment 2 % 1 inches Route: Transdermal; Site: db anterior chest wall; 18:18 Drug: Metoprolol IVP 5 mg Route: IVP; Site: right antecubital; db 18:18 Drug: morphine IVP or IV 4 mg Route: IVP; Infused Over: 4 mins; Site: right antecubital;db 18:20 Drug: Ondansetron IVP 4 mg Route: IVP; Site: right antecubital; db Disposition Summary: 03/29/23 18:36 Hospitalization Ordered Hospitalization Status: Inpatient Admission cp3 Provider: Korey Ordonez cp3 Location: Telemetry/MedSurg (Inpatient) cp3 Condition: Stable cp3 Problem: an acute exacerbation cp3 Symptoms: have improved cp3 Bed/Room Type: Standard 3 Room Assignment: (03/29/23 20:40) la1 Diagnosis - Chest pain, unspecified cp3 - Atherosclerotic heart disease of [place] coronary artery with angina pectoris cp3 - Essential (primary) hypertension cp3 Forms: - Medication Reconciliation Form cp3 - SBAR form cp3 Signatures: Dispatcher [employer] Artur Spaulding MD MD cp3 Deon Ramirez FNP-C [employer]-Cla1 Joyce Castañeda, RN RN cg Kamala To, RN RN db Jorge Mclean RN RN dd1 Corrections: (The following items were deleted from the chart) 19:35 18:36 cp3 cg 20:40 19:35 430 cg la1
--- NOTE | 2023-03-29 19:28 | P.HP ---
Certification for Inpatient Patient admitted to: Observation With expected LOS: <2 Midnights Patient will require the following post-hospital care: None Practitioner: I am a practitioner with admitting privileges, knowledge of patient current condition, hospital course, and medical plan of care. Services: Services provided to patient in accordance with Admission requirements found in Title 42 Section 412.3 of the Code of Federal Regulations Patient History Date of Service: 03/29/23 Reason for admission: ACS rule out History of Present Illness: 42-year-old male with history of CAD, PE on chronic anticoagulation, insulin- dependent diabetes, hypertension presents the emergency department with chief complaint of chest pain. He reports his chest pain began while he was at home described as pressure-like with radiation to the back with associated shortness of breath. He last had a heart catheterization with 3 stents placed in 2020, he has been intermittently compliant with his Xarelto for PE. His initial high- sensitivity troponin is normal at 17.1 EKG without STEMI criteria, CT PE protocol pending to rule out pulmonary embolism given his history and noncompliance with anticoagulation. He will need to be admitted for ACS rule out. Allergies No Known Allergies Allergy (Unverified 01/13/20 08:30) Home Medications: Gabapentin 600 mg PO TID 01/26/19 Hydrocodone Bit/Acetaminophen [[place] 10-325 Tablet] 1 tab PO Q6HP PRN 01/26/19 Metformin HCl [Glucophage] 1,000 mg PO BID 01/26/19 Metoprolol Succinate [Toprol Xl*] 50 mg PO BID 01/26/19 methocarbamoL [Robaxin*] 500 mg PO Q8H 01/26/19 Buprenorphine 1 each TD EVERY 7TH DAY 01/12/20 - Past Medical/Surgical History Diabetic: Yes -: HTN -: Asthma -: pulmonary embolism -: Insulin-dependent diabetes -: CAD -: right rotator cuff surgery -: right toe surgery jun 2018 -: Multiple stents Psychosocial/ Personal History: Patient lives at home with family - Family History Father -: Heart disease, Hypertension, Lung disease, Diabetes, Kidney disease Mother -: Heart disease, Hypertension, Other (see notes) Notes: pvd Brother -: Heart disease, Diabetes, Kidney disease Sister -: Other (see notes) Notes: back problems and thyroid problems - Social History Alcohol use: Yes CD- Drugs: No Caffeine use: Yes Place of Residence: Home Review of Systems 10-point ROS is otherwise unremarkable Respiratory: Shortness of Breath Cardiovascular: Chest Pain Physical Examination - Physical Exam General: Alert, In no apparent distress, Oriented x3 HEENT: Atraumatic, PERRLA, Mucous membr. moist/pink, EOMI, Sclerae nonicteric Neck: Supple, 2+ carotid pulse no bruit, No LAD, Without JVD or thyroid abnormality Respiratory: Clear to auscultation bilaterally, Normal air movement Cardiovascular: Regular rate/rhythm, Normal S1 S2 Gastrointestinal: Normal bowel sounds, No tenderness Musculoskeletal: No tenderness Integumentary: No rashes Neurological: Normal gait, Normal speech, Normal strength at 5/5 x4 extr, Normal tone, Normal affect Lymphatics: No axilla or inguinal lymphadenopathy - Studies Laboratory Data (last 24 hrs) 03/29/23 03/29/23 17:41 17:41 WBC 8.40 Hgb 15.3 Hct 45.9 Plt Count 279 Sodium 140 Potassium 3.8 BUN 22 H Creatinine 0.99 Glucose 117 H Magnesium 2.1 Total Bilirubin 0.6 AST 26 ALT 54 Alkaline Phosphatase 75 Assessment and Plan - Plan Assessment: Chest pain rule out ACS/PEhistory of CAD/PE Diabetes mellitus type 2insulin-dependent Hypertension Hyperlipidemia Plan: Chest pain rule out ACS/PEhistory of CAD/PE CT PE protocol pending, continue Xarelto for now, monitor on telemetry, trend troponins, cardiology consult. Diabetes mellitus type 2insulin-dependent ACHS Accu-Chek, sliding scale insulin Hypertension Hyperlipidemia Continue home meds. DVT PPX: Continue Xarelto Code status: Full Discharge Plan: Home Plan to discharge in: 24 Hours - Advance Directives Does patient have a Living Will: No Does patient have a Durable POA for Healthcare: No - Code Status/Comfort Care Code Status Assessed: Yes (Full code) Critical Care: No Time Spent Managing Pts Care (In Minutes): 55
--- NOTE | 2023-03-29 19:39 | RAD REPORT ---
EXAM DESCRIPTION: CT - Chest For Pe Angio - 03/29/2023 7:23 pm CLINICAL HISTORY: Chest pain. CHEST PAIN COMPARISON: <Comparisons> TECHNIQUE: CT angiogram of the pulmonary arteries was performed with MIP. All CT scans are performed using dose optimization technique as appropriate and may include automated exposure control or mA/KV adjustment according to patient size. FINDINGS: No evidence of pulmonary thromboembolism. No acute aortic finding demonstrated. The lungs are clear. No significant pericardial or pleural fluid. No concerning bony finding. IMPRESSION: No evidence of pulmonary thromboembolism. No acute lung findings.
[2023-03-29] MEDS ORDERED: ONDANSETRON 4 MG/2 ML VIAL IV PRN (19:51)
[2023-03-29] MEDS ORDERED: MORPHINE 2 MG/ML SYR IV PRN (19:51)
[2023-03-29] MEDS ORDERED: NA CHLORIDE 0.9% 1,000 ML IV SCH (20:00)
[2023-03-29] MEDS ORDERED: ATORVASTATIN 40 MG TAB PO SCH (21:00)
[2023-03-29] MEDS ORDERED: INSULIN -REGULAR HUMAN 50 UNIT/0.5 ML ML SQ SCH (21:00)
--- NOTE | 2023-03-29 21:21 | P.DS ---
Admission Date: 03/29/23 Discharge Date: 03/29/23 Disposition: AMA-LEFT AGAINST MEDICAL ADVIC Discharge Condition: FAIR Reason for Admission: ACS rule out Brief History of Present Illness: 42-year-old male with history of CAD, PE on chronic anticoagulation, insulin- dependent diabetes, hypertension presents the emergency department with chief complaint of chest pain. He reports his chest pain began while he was at home described as pressure-like with radiation to the back with associated shortness of breath. He last had a heart catheterization with 3 stents placed in 2020, he has been intermittently compliant with his Xarelto for PE. His initial high- sensitivity troponin is normal at 17.1 EKG without STEMI criteria, CT PE protocol pending to rule out pulmonary embolism given his history and noncompliance with anticoagulation. He will need to be admitted for ACS rule out. Hospital Course: Shortly after admission patient stated he would like to leave AGAINST MEDICAL ADVICE, his CT PE protocol was negative for pulmonary embolism or other acute findings. I requested that he stay at least long enough to repeat his troponin which we did and it was also negative. Patient was counseled the risk of leaving as medical advice including risk of cardiac arrest, , he verbalized understanding reports he will follow-up with [facility] on Friday. Strict return precautions given. Vital Signs/Physical Exam: Temp Pulse Resp BP Pulse Ox 17 97 03/29/23 20:24 03/29/23 20:24 General: Alert, In no apparent distress, Oriented x3 HEENT: Atraumatic, PERRLA, EOMI Neck: Supple, JVD not distended Respiratory: Clear to auscultation bilaterally, Normal air movement Cardiovascular: Regular rate/rhythm, Normal S1 S2 Gastrointestinal: Normal bowel sounds, No tenderness Musculoskeletal: No tenderness Integumentary: No rashes Neurological: Normal speech, Normal tone, Normal affect Lymphatics: No axilla or inguinal lymphadenopathy Laboratory Data at Discharge: WBC 8.40 thou/uL (4.3-10.9) 03/29/23 17:41 Hgb 15.3 g/dL (13.6-17.9) 03/29/23 17:41 Hct 45.9 % (39.6-49.0) 03/29/23 17:41 Plt Count 279 thou/uL (152-406) 03/29/23 17:41 Sodium 140 mEq/L (136-145) 03/29/23 17:41 Potassium 3.8 mEq/L (3.5-5.1) 03/29/23 17:41 BUN 22 mg/dL (7-18) H 03/29/23 17:41 Creatinine 0.99 mg/dL (0.70-1.30) 03/29/23 17:41 Glucose 117 mg/dL (74-106) H 03/29/23 17:41 Magnesium 2.1 mg/dL (1.6-2.4) 03/29/23 17:41 Total Bilirubin 0.6 mg/dL (0.2-1.0) 03/29/23 17:41 AST 26 U/L (15-37) 03/29/23 17:41 ALT 54 U/L (16-61) 03/29/23 17:41 Alkaline Phosphatase 75 U/L (45-117) 03/29/23 17:41 Home Medications: Gabapentin 600 mg PO TID 01/26/19 Hydrocodone Bit/Acetaminophen [[place] 10-325 Tablet] 1 tab PO Q6HP PRN 01/26/19 Metformin HCl [Glucophage] 1,000 mg PO BID 01/26/19 Metoprolol Succinate [Toprol Xl*] 50 mg PO BID 01/26/19 methocarbamoL [Robaxin*] 500 mg PO Q8H 01/26/19 Buprenorphine 1 each TD EVERY 7TH DAY 01/12/20 Followup: Price Brandt, [Primary Care Provider] -
[2023-03-29 22:16] VITALS: TEMP 98.9
[2023-03-29 22:24] VITALS: O2SAT 99
[2023-03-29 22:25] VITALS: BP 140/90
[2023-03-30] MEDS ORDERED: ASPIRIN EC 81 MG TAB PO SCH (09:00)
[2023-03-30] MEDS ORDERED: ENOXAPARIN 40 MG/0.4 ML SQ SCH (09:00)
== END 2023-03-29 21:56 | disposition left against medical advice (07) ==
LOC: ER 17:32 → ERHOLD 19:12 → 4TH 19:38
PROVIDERS: ADMIT Internal Medicine Sleep Medicine; ATTEND Internal Medicine Sleep Medicine
DX: R07.9 Chest pain, unspecified (principal); E11.8 Type 2 diabetes mellitus with unspecified complications; Z79.4 Long term (current) use of insulin; I10 Essential (primary) hypertension; E78.5 Hyperlipidemia, unspecified; Z53.29 Procedure and treatment not carried out because of patient's decision for other reasons
CPT/HCPCS: 85025; 80048; 36415; 83735; 85379; 80076; 84484 ×2; 71275; 71045; 96375; 96374; 99285; Q9967; J2270; J2405

== ENCOUNTER 2023-05-15 11:07 | Emergency (ER) | payer OTHER ==
--- OUTSIDE RECORDS SUMMARY | 2023-05-15 11:13 | XMS REPORT | Continuity of Care Document ---
:1980 Author Organization [facility] t Address [address] [place] [address] [address] [place] [address] Care Team Providers Name Role Phone Asked, No Pcp Primary Care Physician Unavailable Price Brandt Attending Clinician Unavailable Pob, [facility] Main Attending Clinician Unavailable Aleksander Hansk MD Attending Clinician ALEKSANDER HANKS Attending Clinician Unavailable Doctor Unassigned, [place] Attending Clinician Unavailable Julius Correa MD Attending Clinician KONSTANTIN WOODSON Attending Clinician Unavailable Konstantin Woodson MD Attending Clinician Marleny Henry RN Attending Clinician DEMETRIA NANCE Attending Clinician Unavailable DEMETRIA NANCE Attending Clinician Unavailable Bailey Nunez NP Attending Clinician Tanner Peralta MD Attending Clinician JULIUS CORREA Attending Clinician Unavailable Kayleen Tong MA Attending Clinician Unavailable Betsy Prakash Attending Clinician Tiffanie Mendoza MD Attending Clinician TIFFANIE MENDOZA Attending Clinician Unavailable Jennie Ramirez RN Attending Clinician Corie Banerjee Attending Clinician Shandra STARR Ilene R Attending Clinician Any Lam MD Attending [...] of C C 00:00: [place] screening screening [facility] test test Branch Chronic Chronic Disease Active [...] 04-25 ity of rhinitis rhinitis 00:00: [place] 00 Medical Branch Encounter Encounter Disease Active Uni vers to to 04-25 [place] of establish establish 00[place] care [place] [facility] new doctor new doctor Br anch Crushing [...] disease disease 00:00: [place] involving involving 00 [facility] [place] 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 Stable Stable Disease Active 2019-08 Univers angina angina 0-09 ity of 00:00: [place] [facility] 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 0-09 ity of disease disease 00:00: [place] involving involving 00 Medi zaina [place] 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 Unstable Unstable Disease Active Unive rs angina angina 930 ity of 00:: [place] [facility] Type 2 Type 2 Disease Active Univers diabetes diabetes 9 ity of mellitus mellitus 00:: [place] without without 00 Medical complicati complicati Br anch on, on, without without long-term long-term current current use of use of insulin insulin Family Family Disease Active Univers history of history of 05-24 it y of early CAD early CAD 00:00: [facility] Medical Branch Essential Essential Disease Active Uni vers hypertensi hypertensi 05-24 it y of on on 00:00: [place] [facility] Coronary Coronary Disease Active Unive rs artery artery 05-24 ity of calcificat calcificat 00:00: [place] 00 Medical Branch Atypical Atypical Disease Active Unive rs chest pain chest pain 05-23 it y of 00:: [place] [facility] Orbital Orbital Disease Active Overview: Univ ers cellulitis cellulitis 16 Formattin ity of , right , right 00:00: g of this note Medical might be Branch different from the original. S/P Orbitotom y with Mass Excision OD Obesity Obesity Disease Active Univers (BMI (BMI 9-16 ity of 30-39.9) 30-39.9) 00:00: [place] 00 Medical Branch Open wound Open wound Disease [...] Start Date Stop Date Quantity Comments Source Gender identity [facility] History [facility] University o f Alcohol Frequency [facility] edical Branch History [facility] University o f Alcohol Std Drinks [place] [facility] History [facility] University o f Alcohol Binge [place] [facility] Sexual orientation [facility] Exposure to 2022-06-26 2022-07-06 Not sure University SARS-CoV-2 (event) 00:00:00 13:40:00 [facility] Branch Tobacco use and 2022-04-25 2022-04-25 Former smokeless Uni versity of exposure 00:00:00 00:00:00 tobacco user [facility] Branch Tobacco Comment 2022-04-25 2022-04-25 Quit 2 years ago Uni versity of 00:00:00 00:00:00 [facility] Cigarettes smoked 2022-04-25 2022-04-25 Univers ity of current (pack per 00:00:00 00:00:00 [facility]) - Reported Branch Education 2020-05-23 2020-05-23 13 University of 00:00:00 00:00:00 [place] [facility] History [facility] 2020-05-23 2020-05-23 3 University o f Financial 00:00:00 00:00:00 [facility] Branch History [facility] Food 2020-05-23 2020-05-23 2 Univers ity of Worry 00:00:00 00:00:00 [facility] Branch History [facility] Food 2020-05-23 2020-05-23 2 Univers ity of Scarcity 00:00:00 00:00:00 [place] [facility] History [facility] 2020-05-23 2020-05-23 2 University o f Transport Med 00:00:00 00:00:00 [facility] Branch History [facility] 2020-05-23 2020-05-23 2 University o f Transport Non-Med 00:00:00 00:00:00 [facility] Branch History of Social 2019-04-17 2019-04-[address] function 00:00:00 00:00:00 Hospital Alcohol intake 2018-07-21 2018-07-21 Current drinker [facility] 00:00:00 00:00:00 of alcohol Hospital (finding) Alcohol Comment 2018-07-08 2018-07-08 ocassional [facility] 00:[facility] 00:00:00 Hospital History of tobacco 1996-05-10 2018-07-08 Cigarette Smoker [facility] 00:00:00 00:00:00 [facility] Sex Assigned At [birth year] [facility] 00:00:00 00:00:00 Hospital Smoking Status Start Date Stop Date Source Ex-smoker 2022-04-25 00:00:00 2022-04-25 [place] o f [place] 00:00:00 Medical Branch Occasional tobacco 2018-07-08 00:00:00 [facility] smoker Medications Ordered Filled Start Stop Current Ordering Indication Dosage Frequency Signature Comments Components Source Medication Medication Date Date Medication? Clinician (SIG) Name Name OZEMPIC 2021-08 Yes [id number] INJECT Uni vers 0.25 mg or 1-30 0.25 MG ity of 0.5 mg(2 00:00: [place] mg/1.5 mL) 00 SKIN ONCE Medi zaina PnIj A WEEK FOR Branch 4 WEEKS, THEN INJECT 0.5 MG ONCE A WEEK FOR 4 WEEKS. BEGIN OZEMPIC 1MG AFTER COMPLETING . OZEMPIC 2021-08 Yes [id number] INJECT Uni vers 0.25 mg or 1-30 0.25 MG ity of 0.5 mg(2 00:00: [place] THE [place] mg/1.5 mL) 00 SKIN ONCE Medi zaina PnIj A WEEK FOR Branch 4 WEEKS, THEN INJECT 0.5 MG ONCE A WEEK FOR 4 WEEKS. BEGIN OZEMPIC 1MG AFTER COMPLETING . OZEMPIC 2021-08 Yes [id number] INJECT Uni vers 0.25 mg or 1-30 0.25 MG ity of 0.5 mg(2 00:00: [place] mg/1.5 mL) 00 SKIN ONCE Medi zaina PnIj A WEEK FOR Branch 4 WEEKS, THEN INJECT 0.5 MG ONCE A WEEK FOR 4 WEEKS. BEGIN OZEMPIC 1MG AFTER COMPLETING . OZEMPIC 2021-08 Yes [id number] INJECT Uni vers 0.25 mg or 1-30 0.25 MG ity of 0.5 mg(2 00:00: [place] mg/1.5 mL) 00 SKIN ONCE Medi zaina PnIj A WEEK FOR Branch 4 WEEKS, THEN INJECT 0.5 MG ONCE A WEEK FOR 4 WEEKS. BEGIN OZEMPIC 1MG AFTER COMPLETING . OZEMPIC 2021-08 Yes [id number] INJECT Uni vers 0.25 mg or 1-30 0.25 MG ity of 0.5 mg(2 00:00: [place] THE [place] mg/1.5 mL) 00 SKIN ONCE Medi zaina PnIj A WEEK FOR Branch 4 WEEKS, THEN INJECT 0.5 MG ONCE A WEEK FOR 4 WEEKS. BEGIN OZEMPIC 1MG AFTER COMPLETING . OZEMPIC 2021-08 Yes [id number] INJECT Uni vers 0.25 mg or 1-30 0.25 MG ity of 0.5 mg(2 00:00: [place] THE [place] mg/1.5 mL) 00 SKIN ONCE Medi zaina PnIj A WEEK FOR Branch 4 WEEKS, THEN INJECT 0.5 MG ONCE A WEEK FOR 4 WEEKS. BEGIN OZEMPIC 1MG AFTER COMPLETING . OZEMPIC 2021-08 Yes [id number] INJECT Uni vers 0.25 mg or 1-30 0.25 MG ity of 0.5 mg(2 00:00: [place] THE [place] mg/1.5 mL) 00 SKIN ONCE Medi zaina PnIj A WEEK FOR Branch 4 WEEKS, THEN INJECT 0.5 MG ONCE A WEEK FOR 4 WEEKS. BEGIN OZEMPIC 1MG AFTER COMPLETING . OZEMPIC 2021-08 Yes [id number] INJECT Uni vers 0.25 mg or 1-30 [...] First dose Medi zaina 30 mg on Fri07/09/22 at 0900, Until Discontinu ed, Routine rivaroxaban 2021-08 Yes 20mg 20 mg, Univ ers (XARELTO) 1-15 Oral, ity of tablet 20 15:00: DAILY, [place] mg 00 First dose Medical on Fri Branch 07/09/22 at 0900, Until Discontinu ed, Routine isosorbide 2021-08 30mg 30 mg, Univ ers mononitrate 1-15 11-15 Oral, ity of (IMDUR) 24 15:00: 00:06 DAILY, [place] tablet 00 :16 First dose Medi zaina 30 mg on [facility] 07/09/22 at 0900, Until Discontinu ed, Routine rivaroxaban 2021-08 No 20mg 20 mg, Uni vers (XARELTO) 1-15 11-15 Oral, ity of tablet 20 15:00: 00:06 DAILY, [place] mg 00 :16 First dose Medical on [facility] 07/09/22 at 0900, Until Discontinu ed, Routine clopidogreL 2021-08 Yes [id number] 75mg Take 1 U nivers 75 mg 1-15 tablet by ity of tablet 00:00: mouth in [place] 00 the Medical morning. Branch fenofibrate 2021-08 Yes [id number] 67mg Take 1 U nivers micronized 1-15 capsule by ity of 67 mg 00:00: mouth in [place] capsule 00 the Medical morning. Branch isosorbide 2021-08 Yes [id number] 30mg Take 1 Un lizbeth mononitrate 1-15 tablet by ity of 30 mg 24 hr 00:00: mouth [place] tablet 00 the Medical morning. Branch pantoprazol 2021-08 Yes [id number] 40mg Take 1 U nivers e 40 mg EC 1-15 tablet by ity of tablet 00:00: mouth in [place] 00 the Medical morning. Branch rivaroxaban 2021-08 Yes 20mg Take 1 Univ ers 20 mg 1-15 tablet by ity of tablet 00:00: mouth in [place] 00 the Medical morning. Branch Indication s: dvt clopidogreL 2021-08 Yes [id number] 75mg Take 1 U nivers 75 mg 1-15 tablet by ity of tablet 00:00: mouth in [place] 00 the Medical morning. Branch fenofibrate 2021-08 Yes [id number] 67mg Take 1 U nivers micronized 1-15 capsule by ity of 67 mg 00:00: mouth in [place] capsule 00 the Medical morning. Branch isosorbide 2021-08 Yes [id number] 30mg Take 1 Un lizbeth mononitrate 1-15 tablet by ity of 30 mg 24 hr 00:00: mouth [place] tablet 00 the Medical morning. Branch pantoprazol 2021-08 Yes [id number] 40mg Take 1 U nivers e 40 mg EC 1-15 tablet by ity of tablet 00:00: mouth in [place] 00 the Medical morning. Branch rivaroxaban 2021-08 Yes 20mg Take 1 Univ ers 20 mg 1-15 tablet by ity of tablet 00:00: mouth in [place] 00 the Medical morning. Branch Indication s: dvt clopidogreL 2021-08 Yes [id number] 75mg Take 1 U nivers 75 mg 1-15 tablet by ity of tablet 00:00: mouth in [place] 00 the Medical morning. Branch fenofibrate 2021-08 Yes [id number] 67mg Take 1 U nivers micronized 1-15 capsule by ity of 67 mg 00:00: mouth in [place] capsule 00 the Medical morning. Branch isosorbide 2021-08 Yes [id number] 30mg Take 1 Un liz[place] mononitrate 1-15 tablet by ity of 30 mg 24 hr 00:00: mouth [place] tablet 00 the Medical morning. Branch pantoprazol 2021-08 Yes [id number] 40mg Take 1 U nivers e 40 mg EC 1-15 tablet by ity of tablet 00:00: mouth in [place] 00 the Medical morning. Branch rivaroxaban 2021-08 Yes 20mg Take 1 Univ ers 20 mg 1-15 tablet by ity of tablet 00:00: mouth in [place] the Medical morning. Branch Indication s: dvt clopidogreL 2021-08 Yes [id number] 75mg Take 1 U nivers 75 mg 1-15 tablet by ity of tablet 00:00: mouth in [place] 00 the Medical morning. Branch fenofibrate 2021-08 Yes [id number] 67mg Take 1 U nivers micronized 1-15 capsule by ity of 67 mg 00:00: mouth in [place] capsule 00 the Medical morning. Branch isosorbide 2021-08 Yes [id number] 30mg Take 1 Un lizbeth mononitrate 1-15 tablet by ity of 30 mg 24 hr 00:00: mouth [place] tablet 00 the Medical morning. Branch pantoprazol 2021-08 Yes [id number] 40mg Take 1 U nivers e 40 mg EC 1-15 tablet by ity of tablet 00:00: mouth in [place] 00 the Medical morning. Branch rivaroxaban 2021-08 Yes 20mg Take 1 Univ ers 20 mg 1-15 tablet by ity of tablet 00:00: mouth in [place] 00 the Medical morning. Branch Indication s: dvt clopidogreL 2021-08 Yes [id number] 75mg Take 1 U nivers 75 mg 1-15 tablet by ity of tablet 00:00: mouth in [place] 00 the Medical morning. Branch fenofibrate 2021-08 Yes [id number] 67mg Take 1 U nivers micronized 1-15 capsule by ity of 67 mg 00:00: mouth in [place] capsule 00 the Medical morning. Branch isosorbide 2021-08 Yes [id number] 30mg Take 1 Un liz[place] mononitrate 1-15 tablet by ity of 30 mg 24 hr 00:00: mouth [place] tablet 00 the Medical morning. Branch pantoprazol 2021-08 Yes [id number] 40mg Take 1 U nivers e 40 mg EC 1-15 tablet by ity of tablet 00:00: mouth in [place] 00 the Medical morning. Branch rivaroxaban 2021-08 Yes 20mg Take 1 Univ ers 20 mg 1-15 tablet by ity of tablet 00:00: mouth in [place] 00 the Medical morning. Branch Indication s: dvt clopidogreL 2021-08 Yes [id number] 75mg Take 1 U nivers 75 mg 1-15 tablet by ity of tablet 00:00: mouth in [place] 00 the Medical morning. Branch fenofibrate 2021-08 Yes [id number] 67mg Take 1 U nivers micronized 1-15 capsule by ity of 67 mg 00:00: mouth in [place] capsule 00 the Medical morning. Branch isosorbide 2021-08 Yes [id number] 30mg Take 1 Un lizbeth mononitrate 1-15 tablet by ity of 30 mg 24 hr 00:00: mouth [place] tablet 00 the Medical morning. Branch pantoprazol 2021-08 Yes [id number] 40mg Take 1 U nivers e 40 mg EC 1-15 tablet by ity of tablet 00:00: mouth in [place] 00 the Medical morning. Branch rivaroxaban 2021-08 Yes 20mg Take 1 Univ ers 20 mg 1-15 tablet by ity of tablet 00:00: mouth in [place] 00 the Medical morning. Branch Indication s: dvt clopidogreL 2021-08 Yes [id number] 75mg Take 1 U nivers 75 mg 1-15 tablet by ity of tablet 00:00: mouth in [place] 00 the Medical morning. Branch fenofibrate 2021-08 Yes [id number] 67mg Take 1 U nivers micronized 1-15 capsule by ity of 67 mg 00:00: mouth in [place] capsule 00 the Medical morning. Branch isosorbide 2021-08 Yes [id number] 30mg Take 1 Un liz[place] mononitrate 1-15 tablet by ity of 30 mg 24 hr 00:00: mouth [place] tablet 00 the Medical morning. Branch pantoprazol 2021-08 Yes [id number] 40mg Take 1 U nivers e 40 mg EC 1-15 tablet by ity of tablet 00:00: mouth in [place] 00 the Medical morning. Branch rivaroxaban 2021-08 Yes 20mg Take 1 Univ ers 20 mg 1-15 tablet by ity of tablet 00:00: mouth in [place] 00 the Medical morning. Branch Indication s: dvt clopidogreL 2021-08 Yes [id number] 75mg Take 1 U nivers 75 mg 1-15 tablet by ity of tablet 00:00: mouth in [place] 00 the Medical morning. Branch fenofibrate 2021-08 Yes [id number] 67mg Take 1 U nivers micronized 1-15 capsule by ity of 67 mg 00:00: mouth in [place] capsule 00 the Medical morning. Branch isosorbide 2021-08 Yes [id number] 30mg Take 1 Un [place] mononitrate 1-15 tablet by ity of 30 mg 24 hr 00:00: mouth [place] tablet 00 the Medical morning. Branch pantoprazol 2021-08 Yes [id number] 40mg Take 1 U nivers e 40 mg EC 1-15 tablet by ity of tablet 00:00: mouth in [place] 00 the Medical morning. Branch rivaroxaban 2021-08 Yes 20mg Take 1 Univ ers 20 mg 1-15 tablet by ity of tablet 00:00: mouth in [place] 00 the Medical morning. Branch Indication s: dvt clopidogreL 2021-08 Yes [id number] 75mg Take 1 U nivers 75 mg 1-15 tablet by ity of tablet 00:00: mouth in [place] 00 the Medical morning. Branch fenofibrate 2021- Yes [id number] 67mg Take 1 U nivers micronized 1-15 capsule by ity of 67 mg 00:00: mouth in [place] capsule 00 the Medical morning. Branch isosorbide 2021- Yes [id number] 30mg Take 1 Un liz[place] mononitrate 1-15 tablet by ity of 30 mg 24 hr 00:00: mouth [place] tablet 00 the Medical morning. Branch pantoprazol 2021-08 Yes [id number] 40mg Take 1 U nivers e 40 mg EC 1-15 tablet by ity of tablet 00:00: mouth in [place] 00 the Medical morning. Branch rivaroxaban 2021-08 Yes 20mg Take 1 Univ ers 20 mg 1-15 tablet by ity of tablet 00:00: mouth in [place] 00 the Medical morning. Branch Indication s: dvt clopidogreL 2021-08 Yes [id number] 75mg Take 1 U nivers 75 mg 1-15 tablet by ity of tablet 00:00: mouth in [place] 00 the Medical morning. Branch fenofibrate 2021-08 Yes [id number] 67mg Take 1 U nivers micronized 1-15 capsule by ity of 67 mg 00:00: mouth in [place] capsule 00 the Medical morning. Branch isosorbide 2021-08 Yes [id number] 30mg Take 1 Un liz[place] mononitrate 1-15 tablet by ity of 30 mg 24 hr 00:00: mouth [place] tablet 00 the Medical morning. Branch pantoprazol 2021-08 Yes [id number] 40mg Take 1 U nivers e 40 mg EC 1-15 tablet by ity of tablet 00:00: mouth in [place] 00 the Medical morning. Branch rivaroxaban 2021-08 Yes 20mg Take 1 Univ ers 20 mg 1-15 tablet by ity of tablet 00:00: mouth in [place] 00 the Medical morning. Branch Indication s: dvt clopidogreL 2021-08 Yes [id number] 75mg Take 1 U nivers 75 mg 1-15 tablet by ity of tablet 00:00: mouth in [place] 00 the Medical morning. Branch fenofibrate 2021- Yes [id number] 67mg Take 1 U nivers micronized 1-15 capsule by ity of 67 mg 00:00: mouth in [place] capsule 00 the Medical morning. Branch isosorbide 2021- Yes [id number] 30mg Take 1 Un liz[place] mononitrate 1-15 tablet by ity of 30 mg 24 hr 00:00: mouth [place] tablet 00 the Medical morning. Branch pantoprazol 2021- Yes [id number] 40mg Take 1 U nivers e 40 mg EC 1-15 tablet by ity of tablet 00:00: mouth in [place] 00 the Medical morning. Branch rivaroxaban 2021-08 Yes 20mg Take 1 Univ ers 20 mg 1-15 tablet by ity of tablet 00:00: mouth in [place] 00 the Medical morning. Branch Indication s: dvt iopamidol 2021-08- No ONCE INTRA U nivers (ISOVUE 09-07 PROCEDURE, ity o f 370-500 mL) 15:30: 15:32 [place] injection 59 :30 on [facility] 07/08/22 Branch at 0930, Until [facility] 07/08/22 at 0932, Routine, CV Intraproce dure iopamidol 2021-08- No ONCE INTRA U nivers (ISOVUE-370 09-07 PROCEDURE, i ty of ) injection 15:22: 16:02 [place] 25 :03 on [facility] 07/08/22 Branch at 0922, Until [facility] 07/08/22 at 1002, Routine, CV Intraproce dure clopidogreL 2021-08 Yes 75mg 75 mg, Univ ers (PLAVIX) 75 09-07 Oral, ity of mg tablet 15:00: DAILY, [place] 75 mg 00 First dose Medical on [facility] 07/08/22 at 0900, Until Discontinu ed, Routine clopidogreL 2021-08- No 75mg 75 mg, Uni vers (PLAVIX) 75 09-07 Oral, ity of mg tablet 15:00: 00:06 DAILY, [place] 75 mg 00 :16 First dose Medical on [facility] 07/08/22 at 0900, Until Discontinu ed, Routine heparin 2021-08- No ONCE INTRA Uni vers 1,000 09-07 PROCEDURE, ity of unit/mL 14:57: 16:02 Starting [place] injection 00 :03 on [facility] 07/08/22 Branch at 0857, Until [facility] 07/08/22 at 1002, Routine, CV Intraproce dure nitroglycer 2021-08- No ONCE INTRA Univers in (TRIDIL) 09-07 PROCEDURE, i ty of 2 mg in 10 14:57: 16:02 [place] mL D5W for 00 :03 on [facility] Cardiac 07/08/22 Branch Cath at 0857, Until [facility] 07/08/22 at 1002, Routine, CV Intraproce dure midazolam 2021-08- No ONCE INTRA U nivers (VERSED) 09-07 PROCEDURE, ity of injection 14:48: 15:32 Starting [place] 52 :30 on [facility] 07/08/22 Branch at 0848, Until [facility] 07/08/22 at 0932, Routine, CV Intraproce dure lidocaine 2021-08- No ONCE INTRA U nivers 1% (PF) 09-07 PROCEDURE, ity o f (XYLOCAINE) 14:48: 15:32 [place] injection 00 :30 on [facility] 07/08/22 Branch at 0848, Until [facility] 07/08/22 at 0932, Routine, CV Intraproce dure FENTanyl PF 2021-08- No ONCE INTRA Univers (SUBLIMAZE 09-07 PROCEDURE, it y of (PF)) 14:47: 15:32 Starting [place] injection 00 :30 on [facility] 07/08/22 Branch at 0847, Until [facility] 07/08/22 at 0932, Routine, CV Intraproce dure ranolazine 2021-08 Yes 500mg 500 mg, Uni vers (RANEXA) 14 Oral, ity of hr tablet 02:00: Q12H, [place] 500 mg 00 First dose Medical on [facility] 07/07/22 at 2000, Until Discontinu ed, Routine ranolazine 2021-08- No 500mg 500 mg, Un lizbeth (RANEXA) 12 09-0715 Oral, ity of hr tablet 02:00: 00:06 Q12H, [place] 500 mg 00 :16 First dose Medical on [facility] 07/07/22 at 1999, Until Discontinu ed, Routine ranolazine 2021-08 Yes [id number] 500mg Take 1 U nivers 500 mg 12 -14 tablet by ity o f hr tablet 00:00: mouth [place] 00 every 12 Medical (twelve) Branch hours. aspirin 81 2021-08 Yes [id number] 81mg Take 1 Un l[place] mg chewable 1-14 tablet by ity of tablet 00:00: mouth in [place] 00 the Medical morning. Branch ranolazine 2021-08 Yes [id number] 500mg Take 1 U nivers 500 mg 12 1-14 tablet by ity o f hr tablet 00:00: mouth [place] 00 every 12 Medical (twelve) Branch hours. aspirin 81 2021-08 Yes [id number] 81mg Take 1 Un [place] mg chewable 1-14 tablet by ity of tablet 00:00: mouth in [place] 00 the Medical morning. Branch ranolazine 2021-08 Yes [id number] 500mg Take 1 U nivers 500 mg 12 1-14 tablet by ity o f hr tablet 00:00: mouth [place] 00 every 12 Medical (twelve) Branch hours. aspirin 81 2021-08 Yes [id number] 81mg Take 1 Un [place] mg chewable 1-14 tablet by ity of tablet 00:00: mouth in [place] 00 the Medical morning. Branch ranolazine 2021-08 Yes [id number] 500mg Take 1 U nivers 500 mg 12 1-14 tablet by ity o f hr tablet 00:00: mouth [place] 00 every 12 Medical (twelve) Branch hours. aspirin 81 2021-08 Yes [id number] 81mg Take 1 Un [place] mg chewable 1-14 tablet by ity of tablet 00:00: mouth in [place] 00 the Medical morning. Branch ranolazine 2021-08 Yes [id number] 500mg Take 1 U nivers 500 mg 12 1-14 tablet by ity o f hr tablet 00:00: mouth [place] 00 every 12 Medical (twelve) Branch hours. aspirin 81 2021-08 Yes [id number] 81mg Take 1 Un [place] mg chewable 1-14 tablet by ity of tablet 00:00: mouth in [place] 00 the Medical morning. Branch ranolazine 2021-08 Yes [id number] 500mg Take 1 U nivers 500 mg 12 1-14 tablet by ity o f hr tablet 00:00: mouth [place] 00 every 12 Medical (twelve) Branch hours. aspirin 81 2021-08 Yes [id number] 81mg Take 1 Un [place] mg chewable 1-14 tablet by ity of tablet 00:00: mouth in [place] 00 the Medical morning. Branch ranolazine 2021-08 Yes [id number] 500mg Take 1 U nivers 500 mg 12 1-14 tablet by ity o f hr tablet 00:00: mouth [place] 00 every 12 Medical (twelve) Branch hours. aspirin 81 2021-08 Yes [id number] 81mg Take 1 Un [place] mg chewable 1-14 tablet by ity of tablet 00:00: mouth in [place] 00 the Medical morning. Branch ranolazine 2021-08 Yes [id number] 500mg Take 1 U nivers 500 mg 12 1-14 tablet by ity o f hr tablet 00:00: mouth [place] 00 every 12 Medical (twelve) Branch hours. aspirin 81 2021-08 Yes [id number] 81mg Take 1 Un [place] mg chewable 1-14 tablet by ity of tablet 00:00: mouth in [place] 00 the Medical morning. Branch ranolazine 2021-08 Yes [id number] 500mg Take 1 U nivers 500 mg 12 1-14 tablet by ity o f hr tablet 00:00: mouth [place] 00 every 12 Medical (twelve) Branch hours. aspirin 81 2021-08 Yes [id number] 81mg Take 1 Un [place] mg chewable 1-14 tablet by ity of tablet 00:00: mouth in [place] 00 the Medical morning. Branch ranolazine 2021-08 Yes [id number] 500mg Take 1 U nivers 500 mg 12 1-14 tablet by ity o f hr tablet 00:00: mouth [place] 00 every 12 Medical (twelve) Branch hours. aspirin 81 2021-08 Yes [id number] 81mg Take 1 Un [place] mg chewable 1-14 tablet by ity of tablet 00:00: mouth in [place] 00 the Medical morning. Branch ranolazine 2021-08 Yes [id number] 500mg Take 1 U nivers 500 mg 12 1-14 tablet by ity o f hr tablet 00:00: mouth [place] 00 every 12 Medical (twelve) Branch hours. aspirin 81 2021-08 Yes [id number] 81mg Take 1 Un [place] mg chewable 1-14 tablet by ity of tablet 00:00: mouth in [place] 00 the Medical morning. Branch clopidogreL 2021-08 No 300mg 300 mg, U nivers (PLAVIX) -13 11-13 Oral, ity of 300 mg 16:15: 16:08 ONCE, 1 [place] tablet 300 00 :00 dose, On Medic al mg [facility] 07/07/22 at 1015, Routine fenofibrate 2021-08 Yes 67mg 67 mg, Univ ers micronized -13 Oral, ity of (LOFIBRA) 15:00: DAILY, [place] capsule 67 00 First dose Med ical mg on [facility] 07/07/22 at 0900, Until Discontinu ed, Routine lisinopriL 2021-08 Yes 5mg 5 mg, Univer s (PRINIVIL,Z 1-13 Oral, ity of ESTRIL) 15:00: DAILY, [place] tablet 5 mg 00 First dose Me dical on [facility] 07/07/22 at 0900, Until Discontinu ed, Routine fluticasone 2021-08 Yes 1{spray 1 [place], Univers propionate 09-06 } Nasal, ity of 50 15:00: DAILY, [place] mcg/actuati 00 First dose Me dical on nasal on [place] [facility] spray 07/07/22 [place] at 0900, Until Discontinu ed, Routine atorvastati 2021-08 Yes 80mg 80 mg, Univ ers n (LIPITOR) 09-06 Oral, ity of tablet 80 15:00: DAILY, [place] mg 00 First dose Medical on [facility] 07/07/22 at 0900, Until Discontinu ed, Routine fenofibrate 2021-08 No 67mg 67 mg, Uni vers micronized 09-06- Oral, ity of (LOFIBRA) 15:00: 00:06 DAILY, [place] capsule 67 00 :16 First dose Med ical mg on [place] [facility] 07/07/22 at 0900, Until Discontinu ed, Routine lisinopriL 2021-08 No 5mg 5 mg, Unive rs (PRINIVIL,Z -07 07-15 Oral, ity of ESTRIL) 15:00: 00:06 DAILY, [place] tablet 5 mg 00 :16 First dose Me dical on [place] [facility] 07/07/22 at 0900, Until Discontinu ed, Routine fluticasone 2021-08- No 1{spray 1 [place], Univers propionate 09-06 } Nasal, ity of 50 15:00: 00:06 DAILY, [place] mcg/actuati 00 :16 First dose Me dical on nasal on [place] [facility] spray 07/07/22 [place] at 0900, Until Discontinu ed, Routine atorvastati 2021-08 No 80mg 80 mg, Uni vers n (LIPITOR) 09-0615 Oral, ity of tablet 80 15:00: 00:06 DAILY, [place] mg 00 :16 First dose Medical on [place] [facility] 07/07/22 at 0900, Until Discontinu ed, Routine aspirin 2021-08- No 81mg 81 mg, [facility] chewable 09-06 Oral, ity of tablet 81 15:00: 17:05 DAILY, [place] mg 00 :20 First dose Medical on [facility] 07/07/22 at 0900, Until Discontinu ed, Routine HEPARIN 2021-08- No 4000U 4,000 Univers SODIUM 09-06 Units, IV ity of (PORCINE) 15:00: 15:36 Push, [place] 1,000 00 :00 ONCE, 1 Medical UNIT/ML dose, On Branch BOLUS [facility] [place] ORDER SET 07/07/22 at 0900, RADHA aspirin 2021-08- No 324mg 324 mg, Unive rs chewable 09-06 Oral, ity of tablet 324 15:00: 02:29 DAILY, [place] 00 :48 First dose Medical on [facility] 07/07/22 at 0900, Until Discontinu ed, Routine heparin 2021-08 No 0U/h 0-2,150 Univer s 25,000 09-06 Units/hr ity of Units/250 14:53: 16:34 (0-21.5 [place] mL 20 :12 mL/hr), IV Medical (Premixed Infusion, Branc h Bag) in TITRATE, 0.45 % NS Parameters in Admin. Instr., Starting on [place] 07/07/22 at 0853
In itiate infusion at [...] Rang e, Dosing and Testing: &nbs p;FOR [facility], AND [facility] ONLY &nbs p; - [...] Yes 2mg 2 mg, Slow Univers mg/mL) -13 IV Push, ity of injection 2 14:15: Q4HPRN, [place] mg 00 Starting Medical on [facility] 07/07/22 at 0815, Until Discontinu ed, Routine, Pain (scale 7-10) morpHINE (2021-08 No 2mg 2 mg, Slow Univers mg/mL) 09-06-15 IV Push, ity of injection 2 14:15: 00:06 Q4HPRN, [place] mg 00 :16 Starting Medical on [facility] 07/07/22 at 0815, Until 07/08/22 at 1806, Routine, Pain (scale 7-10) metoprolol 2021-08 Yes 100mg 100 mg, Uni vers tartrate 13 Oral, ity of (LOPRESSOR) 14:00: Q12H, [place] tablet 100 00 First dose Med ical mg on [facility] 07/07/22 at 0800, Until Discontinu ed, Routine metoprolol 2021-08 No 100mg 100 mg, Un lizbeth tartrate 09-06 11-15 Oral, ity of (LOPRESSOR) 14:00: 00:06 Q12H, [place] tablet 100 00 :16 First dose Med ical mg on [facility] 07/07/22 at 0800, Until Discontinu ed, Routine acetaminoph 2021-08 Yes 650mg 650 mg, Un lizbeth en 13 Oral, ity of (TYLENOL) 10:20: Q6HPRN, [place] tablet 650 24 Starting Medic al mg on [facility] 07/07/22 at 0420, Until Discontinu ed, Routine, Pain (scale 1-3) acetaminoph 2021-08 No 650mg 650 mg, U nivers en 09-06 Oral, ity of (TYLENOL) 10:20: 00:06 Q6HPRN, [place] tablet 650 24 :16 Starting Medic al mg on [place] [facility] 07/07/22 at 0420, Until 07/08/22 at 1806, Routine, Pain (scale 1-3) melatonin 2021-08 Yes 3mg 3 mg, Univers (MELATIN) 09-06 Oral, ity of tablet 3 mg 08:39: QHSPRN, [place] 39 Starting Medical on [facility] 07/07/22 at 0239, Until Discontinu ed, Routine, Insomnia melatonin 2021-08 No 3mg 3 mg, Univer s (MELATIN) 09-06 Oral, ity of tablet 3 mg 08:39: 00:06 QHSPRN [place] 39 :16 Starting Medical on [facility] 07/07/22 at 0239, Until 07/08/22 at 1806, Routine, Insomnia ondansetron 2021-08 Yes 4mg 4 mg, Slow Univers (ZOFRAN 1-13 IV Push, ity of (PF)) 08:39: [facility] [place], [place] injection 4 13 Nausea and Me dical mg Vomiting Branch (N/V), Starting on [place] 07/07/22 at 0239
Do ses of ondansetro n 16 mg and above need to be administer ed via IV piggyback. For Dose >=24mg ECG monitoring is advisable.
ondansetron 2021-08- No 4mg 4 mg, Slow Univers (ZOFRAN -07 07-15 IV Push, ity of (PF)) 08:39: 00:06 Q6HPRN, [place] injection 4 13 :16 Nausea and Me dical mg Vomiting Branch (N/V), Starting on [place] 07/07/22 at 0239
Do ses of ondansetro n 16 mg and above need to be administer ed via IV piggyback. For Dose >=24mg ECG monitoring is advisable.
Sliding 2021-08 Yes Subcutaneo Univ ers Scale 1-13 us, TID ity of Insulin - 03:00: MEALS+HS, [place] Lispro 00 First dose Medical (HumaLOG) + on [facility] 07/06/22 Testing at 2100, Until Discontinu ed, Routine Sliding 2021-08- No Subcutaneo Uni vers Scale 1-13 11-15 us, TID ity of Insulin - 03:00: 00:06 MEALS+HS, [place] Lispro 00 :16 First dose Medical (HumaLOG) + on [facility] 07/06/22 Testing at 2100, Until Discontinu ed, Routine pantoprazol 2021-08 Yes 40mg 40 mg, Univ ers e -13 Oral, ity of (PROTONIX) 02:45: DAILY, [place] EC tablet 00 First dose Medi zaina 40 mg on [facility] 07/06/22 at 2044, Until Discontinu ed, Routine pantoprazol 2021-08- No 40mg 40 mg, Uni vers e -13 15 Oral, ity of (PROTONIX) 02:45: 00:06 DAILY, [place] EC tablet 00 :16 First dose Medi zaina 40 mg on [facility] 07/06/22 at 2044, Until Discontinu ed, Routine morpHINE (2 2021-08- No 2mg 2 mg, Slow Univers mg/mL) 09-06 IV Push, ity of injection 2 02:32: 14:06 Q6HPRN, [place] mg 54 :31 Starting Medical on [facility] 07/06/22 at 203, Until 07/07/22 at 0806, Routine, Pain (scale 7-10) glucagon 2021-08 Yes 1mg 1 mg, Univers (GLUCAGEN 09-06 Intramuscu ity of DIAGNOSTIC 02:30: lar, PRN, [place] KIT) 41 Starting Medical injection 1 on [facility] 07/06/22 at 2030, Until Discontinu ed, RADHA, Blood Glucose < or = 70 mg/dL and patient is unable to swallow or has mental changes. glucagon 2021-08- No 1mg 1 mg, Univers (GLUCAGEN 09-06 Intramuscu ity of DIAGNOSTIC 02:30: 00:06 lar, PRN, [place] KIT) 41 :16 Starting Medical injection 1 on [facility] Branch mg 07/06/22 at 2030, Until 07/08/22 at 1806, RADHA, Blood Glucose < or = 70 mg/dL and patient is unable to swallow or has mental changes. morpHINE (4 2021-08 No 4mg 4 mg, Slow Univers mg/mL) 09-06 IV Push, ity of injection 4 00:45: 00:45 ONCE, 1 [place] mg 00 :00 dose, On Medical Sat Branch 07/06/22 at 1900, STAT iopamidol 2021-08 No [id number] 112mL 112 mL, Univers (ISOVUE 09-06 Intravenou ity o f 370-500 mL) 00:15: 23:19 s, ONCE, 1 [place] injection 00 :00 dose, On Medica l 112 mL Sat Branch 07/06/22 at 1815, Routine morpHINE (4 2021-08 No 4mg 4 mg, Slow Univers mg/mL) 09-05 IV Push, ity of injection 4 22:15: 22:05 ONCE, 1 [place] mg 00 :00 dose, On Medical Sat Branch 07/06/22 at 1615, STAT nitroglycer 2021-08 Yes [...] by ity of tablet 00:00: mouth in [place] 00 the Medical morning. Branch amLODIPine 2021-0 Yes 5mg Take 1 Unive rs 5 mg tablet - tablet by ity of 00:00: mouth in [place] 00 the Medical morning. Branch metoprolol 2021-0 Yes 100mg Take 1 Univ ers tartrate - tablet by ity of 100 mg 00:00: mouth [place] tablet 00 every 12 Medical (twelve) Branch hours. nitroglycer 2021-[id number] 1 Univers in 0.4 mg 9- tablet ity of sublingual 00:00: under the [place] tablet 00 tongue Medical every 5 Branch (five) minutes as needed for Chest pain. fenofibrate 2021-0 Yes 67mg Take 1 Univ ers micronized 9- capsule by ity of 67 mg 00:00: mouth in [place] capsule 00 the Medical morning. Branch isosorbide 2021-0 Yes 120mg Take 1 Univ ers mononitrate 9- tablet by ity of 120 mg 24 00:00: mouth in [place] hr tablet 00 the Medical morning. Branch lisinopriL 2021-0 Yes 5mg Take 1 Unive rs 5 mg tablet 04-25 tablet by ity of 00:00: mouth in [place] 00 the Medical morning. Branch rivaroxaban 2021-0 Yes 1358 20mg Take 1 Univ ers (XARELTO) - tablet by ity o f 20 mg 00:00: mouth in [place] tablet 00 the Medical morning. Branch Indication s: atrial fibrillati on atorvastati 2021-0 Yes 80mg Take 1 Univ ers n 80 mg - tablet by ity of tablet 00:00: mouth in [place] 00 the Medical morning. Branch amLODIPine 2021-0 Yes 5mg Take 1 Unive rs 5 mg tablet 04-25 tablet by ity of 00:00: mouth in [place] 00 the Medical morning. Branch metoprolol 2021-0 Yes 100mg Take 1 Univ ers tartrate - tablet by ity of 100 mg 00:00: mouth [place] tablet 00 every 12 Medical (twelve) Branch hours. nitroglycer 2021-[id number] 1 Univers in 0.4 mg 04-25 tablet ity of sublingual 00:00: under the [place] tablet 00 tongue Medical every 5 Branch (five) minutes as needed for Chest pain. fenofibrate 2021-0 Yes 67mg Take 1 Univ ers micronized 04-25 capsule by ity of 67 mg 00:00: mouth in [place] capsule 00 the Medical morning. Branch isosorbide 2021-0 Yes 120mg Take 1 Univ ers mononitrate - tablet by ity of 120 mg 24 00:00: mouth [place] hr tablet 00 the Medical morning. Branch lisinopriL 2021-0 Yes 5mg Take 1 Unive rs 5 mg tablet 04-25 tablet by ity of 00:00: mouth in [place] 00 the Medical morning. Branch rivaroxaban 2021-0 Yes 1358 20mg Take 1 Univ ers (XARELTO) - tablet by ity o f 20 mg 00:00: mouth in [place] tablet 00 the Medical morning. Branch Indication s: atrial fibrillati on butalbital- 2021-0 Yes [id number] 1{tbl} Take 1 Univers acetaminoph - tablet by ity of en-caff 00:00: mouth [place] 50-325-40 00 every 4 Medical mg tablet (four) Branch hours as needed (PADRON). insulin Yes [id number] 40U inject 40 Univers degludec 9-01 Units ity of (TRESIBA 00:00: under [place] FLEXTOUCH 00 skin 2 Medical U-100) 100 (two) Branch unit/mL (3 times mL) InPn daily with meals. semaglutide Yes [id number] 1mg inject 1 Univers (OZEMPIC) 1 - mg under ity of mg/dose (4 00:00: the skin [place] mg/3 mL) 00 weekly. Medical PnIj Branch metformin Yes [id number] 500mg Take 1 Univers ER 500 mg 04-25 tablet by ity o f 24 hr 00:00: mouth in [place] tablet 00 the Medical morning Branch and 1 tablet in the evening. doxepin 10 Yes [id number] 10mg Take 1 Un lizbeth mg capsule 04-25 capsule by ity of 00:00: mouth at [place] 00 bedtime. Medical Branch traZODone Yes [id number] 50mg Take 1 Uni vers 50 mg 04-25 tablet by ity of tablet 00:00: mouth at [place] 00 bedtime. Medical Branch fluticasone Yes [id number] 1{spray Use 1 Univers propionate 04-25 } [place] in ity o f 50 00:00: each [place] mcg/actuati 00 nostril in De dical on nasal the Branch spray morning. Diclofenac Yes [id number] Apply to Univers Sodium 04-25 103 area(s) 4 ity of (VOLTAREN) 00:00: (four) [place] 1 % gel 00 times Medical daily. Branch Apply 4 g QID on affected areas Lidocaine 5 Yes [id number] Apply to Univers % cream 04-25 103 [...] 12 Medical (twelve) Branch hours. nitroglycer Yes [id number] .4mg Place 1 Univers in 0.4 mg 04-25 tablet ity of sublingual 00:00: under the [place] tablet 00 tongue Medical every 5 Branch (five) minutes as needed for Chest pain. lisinopriL Yes 5mg Take 1 Unive rs 5 mg tablet 04-25 tablet by ity of 00:00: mouth in [place] 00 the Medical morning. Branch insulin Yes [id number] 40U inject 40 Univers degludec 04-25 Units ity of (TRESIBA 00:00: under [place] FLEXTOUCH 00 skin 2 Medical U-100) 100 (two) Branch unit/mL (3 times mL) InPn daily with meals. semaglutide Yes [id number] 1mg inject 1 Univers (OZEMPIC) 1 04-25 mg under ity of mg/dose (4 00:00: the skin [place] mg/3 mL) 00 weekly. Medical PnIj Branch metformin Yes [id number] 500mg Take 1 Univers ER 500 mg 04-25 tablet by ity o f 24 hr 00:00: mouth in [place] tablet 00 the Medical morning Branch and 1 tablet in the evening. doxepin 10 Yes [id number] 10mg Take 1 Un lizbeth mg capsule 04-25 capsule by ity of 00:00: mouth at [place] 00 bedtime. Medical Branch fluticasone Yes [id number] 1{spray Use 1 [facility] propionate 04-25 } [place] in ity o f 50 00:00: each [place] mcg/actuati 00 nostril in De dical on nasal the Branch spray morning. Diclofenac 0 Yes [id number] Apply to Univers Sodium 04-25 103 area(s) 4 ity of (VOLTAREN) 00:00: (four) [place] 1 % gel 00 times Medical daily. Branch Apply 4 g QID on affected areas Lidocaine 5 Yes [id number] Apply to Univers % cream 04-25 103 [...] Medical (twelve) Branch hours. nitroglycer [id number] 1 Univers in 0.4 mg 04-25 tablet ity of sublingual 00:00: under the [place] tablet 00 tongue Medical every 5 Branch (five) minutes as needed for Chest pain. lisinopriL Yes 5mg Take 1 Unive rs 5 mg tablet 04-25 tablet by ity of 00:00: mouth in [place] 00 the Medical morning. Branch insulin Yes [id number] 40U inject 40 Univers degludec 04-25 Units ity of (TRESIBA 00:00: under [place] FLEXTOUCH 00 skin 2 Medical U-100) 100 (two) Branch unit/mL (3 times mL) InPn daily with meals. semaglutide Yes [id number] 1mg inject 1 Univers (OZEMPIC) 1 04-25 mg under ity of mg/dose (4 00:00: the skin [place] mg/3 mL) 00 weekly. Medical PnIj Branch metformin Yes [id number] 500mg Take 1 Univers ER 500 mg 04-25 tablet by ity o f 24 hr 00:00: mouth in [place] tablet 00 the Medical morning Branch and 1 tablet in the evening. doxepin 10 0 Yes [id number] 10mg Take 1 Un lizbeth mg capsule 04-25 capsule by ity of 00:00: mouth at [place] 00 bedtime. Medical Branch fluticasone 0 Yes [id number] 1{spray Use 1 [facility] propionate 04-25 } [place] in ity o f 50 00:00: each [place] mcg/actuati 00 nostril in De dical on nasal the Branch spray morning. Diclofenac 0 Yes [id number] Apply to Univers Sodium 04-25 103 area(s) 4 ity of (VOLTAREN) 00:00: (four) [place] 1 % gel 00 times Medical daily. Branch Apply 4 g QID on affected areas Lidocaine 5 Yes [id number] Apply to Univers % cream 04-25 103 area(s) 2 ity of 00:00: (two) [place] 00 times Medical daily as Branch needed for Pain (scale 4-6). Apply 5g to affected areas BID PRN atorvastati Yes 80mg Take 1 Univ ers n 80 mg 04-25 tablet by ity of tablet 00:00: mouth in [place] 00 the Medical morning. Branch metoprolol Yes 100mg Take 1 Univ ers tartrate 04-25 tablet by ity of 100 mg 00:00: mouth [place] tablet 00 every 12 Medical (twelve) Branch hours. nitroglycer Yes [id number] .4mg Place 1 Univers in 0.4 mg 04-25 tablet ity of sublingual 00:00: under the [place] tablet 00 tongue Medical every 5 Branch (five) minutes as needed for Chest pain. lisinopriL Yes 5mg Take 1 Unive rs 5 mg tablet 04-25 tablet by ity of 00:00: mouth in [place] 00 the Medical morning. Branch insulin Yes [id number] 40U inject 40 Univers degludec 04-25 Units ity of (TRESIBA 00:00: under the [place] FLEXTOUCH 00 skin 2 Medical U-100) 100 (two) Branch unit/mL (3 times mL) InPn daily with meals. semaglutide Yes [id number] 1mg inject 1 Univers (OZEMPIC) 1 04-25 mg under ity of mg/dose (4 00:00: the skin [place] mg/3 mL) 00 weekly. Medical PnIj Branch metformin Yes [id number] 500mg Take 1 Univers ER 500 mg 04-25 tablet by ity o f 24 hr 00:00: mouth in [place] tablet 00 the Medical morning Branch and 1 tablet in the evening. doxepin 10 0 Yes [id number] 10mg Take 1 Un lizbeth mg capsule 04-25 capsule by ity of 00:00: mouth at [place] 00 bedtime. Medical Branch fluticasone Yes [id number] 1{spray Use 1 [facility] propionate 04-25 } [place] in ity o f 50 00:00: each [place] mcg/actuati 00 nostril in De dical on nasal the Branch spray morning. Diclofenac Yes [id number] Apply to Univers Sodium 04-25 103 area(s) 4 ity of (VOLTAREN) 00:00: (four) [place] 1 % gel 00 times Medical daily. Branch Apply 4 g QID on affected areas Lidocaine 5 Yes [id number] Apply to Univers % cream 04-25 103 [...] 12 Medical (twelve) Branch hours. nitroglycer Yes [id number] .4mg Place 1 [facility] in 0.4 mg 04-25 tablet ity of sublingual 00:00: under the [place] tablet 00 tongue Medical every 5 Branch (five) minutes as needed for Chest pain. lisinopriL Yes 5mg Take 1 Unive rs 5 mg tablet 04-25 tablet by ity of 00:00: mouth in [place] 00 the Medical morning. Branch insulin Yes [id number] 40U inject 40 Univers degludec 04-25 Units ity of (TRESIBA 00:00: [place] FLEXTOUCH 00 skin 2 Medical U-100) 100 (two) Branch unit/mL (3 times mL) InPn daily with meals. semaglutide Yes [id number] 1mg inject 1 Univers (OZEMPIC) 1 04-25 mg under ity of mg/dose (4 00:00: the skin [place] mg/3 mL) 00 weekly. Medical PnIj Branch metformin Yes [id number] 500mg Take 1 Univers ER 500 mg 04-25 tablet by ity o f 24 hr 00:00: mouth in [place] tablet 00 the Medical morning Branch and 1 tablet in the evening. doxepin 10 Yes [id number] 10mg Take 1 Un l[place] mg capsule 04-25 capsule by ity of 00:00: mouth at [place] 00 bedtime. Medical Branch fluticasone 0 Yes [id number] 1{spray Use 1 [facility] propionate 04-25 } [place] in ity o f 50 00:00: each [place] mcg/actuati 00 nostril in De dical on nasal the Branch spray morning. Diclofenac 0 Yes [id number] Apply to Univers Sodium 04-25 103 area(s) 4 ity of (VOLTAREN) 00:00: (four) [place] 1 % gel 00 times Medical daily. Branch Apply 4 g QID on affected areas Lidocaine 5 Yes [id number] Apply to Univers % cream 04-25 103 area(s) 2 ity of 00:00: (two) [place] 00 times Medical daily as Branch needed for Pain (scale 4-6). Apply 5g to affected areas BID PRN atorvastati 0 Yes 80mg Take 1 Univ ers n 80 mg 04-25 tablet by ity of tablet 00:00: mouth in [place] 00 the Medical morning. Branch metoprolol Yes 100mg Take 1 Univ ers tartrate 04-25 tablet by ity of 100 mg 00:00: mouth [place] tablet 00 every 12 Medical (twelve) Branch hours. nitroglycer Yes [id number] .4mg Place 1 Univers in 0.4 mg 04-25 tablet ity of sublingual 00:00: under the [place] tablet 00 tongue Medical every 5 Branch (five) minutes as needed for Chest pain. lisinopriL 0 Yes 5mg Take 1 Unive rs 5 mg tablet 04-25 tablet by ity of 00:00: mouth in [place] 00 the Medical morning. Branch insulin Yes [id number] 40U inject 40 Univers degludec 04-25 Units ity of (TRESIBA 00:00: under the [place] FLEXTOUCH 00 skin 2 Medical U-100) 100 (two) Branch unit/mL (3 times mL) InPn daily with meals. semaglutide Yes [id number] 1mg inject 1 Univers (OZEMPIC) 1 04-25 mg under ity of mg/dose (4 00:00: the skin [place] mg/3 mL) 00 weekly. Medical PnIj Branch metformin 0 Yes [id number] 500mg Take 1 Univers ER 500 mg 04-25 tablet by ity o f 24 hr 00:00: mouth in [place] tablet 00 the Medical morning Branch and 1 tablet in the evening. doxepin 10 0 Yes [id number] 10mg Take 1 Un l[place] mg capsule 04-25 capsule by ity of 00:00: mouth at [place] 00 bedtime. Medical Branch fluticasone 0 Yes [id number] 1{spray Use 1 [facility] propionate 04-25 } [place] in ity o f 50 00:00: each [place] mcg/actuati 00 nostril in De dical on nasal the Branch spray morning. Diclofenac Yes [id number] Apply to Univers Sodium 04-25 103 area(s) 4 ity of (VOLTAREN) 00:00: (four) [place] 1 % gel 00 times Medical daily. Branch Apply 4 g QID on affected areas Lidocaine 5 Yes [id number] Apply to Univers % cream 04-25 103 area(s) 2 ity of 00:00: (two) [place] 00 times Medical daily as Branch needed for Pain (scale 4-6). Apply 5g to affected areas BID PRN atorvastati 0 Yes 80mg Take 1 Univ ers n 80 mg 04-25 tablet by ity of tablet 00:00: mouth in [place] 00 the Medical morning. Branch metoprolol 0 Yes 100mg Take 1 Univ ers tartrate 04-25 tablet by ity of 100 mg 00:00: mouth [place] tablet 00 every 12 Medical (twelve) Branch hours. nitroglycer [id number] 1 [facility] in 0.4 mg 04-25 tablet ity of sublingual 00:00: under the [place] tablet 00 tongue Medical every 5 Branch (five) minutes as needed for Chest pain. lisinopriL 0 Yes 5mg Take 1 Unive rs 5 mg tablet 04-25 tablet by ity of 00:00: mouth in [place] 00 the Medical morning. Branch insulin Yes [id number] 40U inject 40 [facility] degludec 9-01 Units ity of (TRESIBA 00:00: under the [place] FLEXTOUCH 00 skin 2 Medical U-100) 100 (two) Branch unit/mL (3 times mL) InPn daily with meals. semaglutide 0 Yes [id number] 1mg inject 1 Univers (OZEMPIC) 1 9- mg under ity of mg/dose (4 00:00: the skin [place] mg/3 mL) 00 weekly. Medical PnIj Branch metformin 0 Yes [id number] 500mg Take 1 Univers ER 500 mg 04-25 tablet by ity o f 24 hr 00:00: mouth in [place] tablet 00 the Medical morning Branch and 1 tablet in the evening. doxepin 10 0 Yes [id number] 10mg Take 1 Un l[place] mg capsule 04-25 capsule by ity of 00:00: mouth at [place] 00 bedtime. Medical Branch fluticasone 0 Yes [id number] 1{spray Use 1 [facility] propionate 04-25 } [place] in ity o f 50 00:00: each [place] mcg/actuati 00 nostril in Me dical on nasal the Branch spray morning. Diclofenac 0 Yes [id number] Apply to Univers Sodium 04-25 103 area(s) 4 ity of (VOLTAREN) 00:00: (four) [place] 1 % gel 00 times Medical daily. Branch Apply 4 g QID on affected areas Lidocaine 5 0 Yes [id number] Apply to Univers % cream 04-25 103 [...] Medical (twelve) Branch hours. nitroglycer [id number] 1 [facility] in 0.4 mg 04-25 tablet ity of sublingual 00:00: under the [place] tablet 00 tongue Medical every 5 Branch (five) minutes as needed for Chest pain. lisinopriL 0 Yes 5mg Take 1 Unive rs 5 mg tablet 04-25 tablet by ity of 00:00: mouth in [place] 00 the Medical morning. Branch insulin Yes [id number] 40U inject 40 Univers degludec 04-25 Units ity of (TRESIBA 00:00: under the [place] FLEXTOUCH 00 skin 2 Medical U-100) 100 (two) Branch unit/mL (3 times mL) InPn daily with meals. semaglutide Yes [id number] 1mg inject 1 Univers (OZEMPIC) 1 04-25 mg under ity of mg/dose (4 00:00: the skin [place] mg/3 mL) 00 weekly. Medical PnIj Branch metformin Yes [id number] 500mg Take 1 Univers ER 500 mg 04-25 tablet by ity o f 24 hr 00:00: mouth in [place] tablet 00 the Medical morning Branch and 1 tablet in the evening. doxepin 10 Yes [id number] 10mg Take 1 Un l[place] mg capsule 04-25 capsule by ity of 00:00: mouth at [place] 00 bedtime. Medical Branch fluticasone Yes [id number] 1{spray Use 1 [facility] propionate 04-25 } [place] in ity o f 50 00:00: each [place] mcg/actuati 00 nostril in Me dical on nasal the Branch spray morning. Diclofenac Yes [id number] Apply to Univers Sodium 04-25 103 area(s) 4 ity of (VOLTAREN) 00:00: (four) [place] 1 % gel 00 times Medical daily. Branch Apply 4 g QID on affected areas Lidocaine 5 Yes [id number] Apply to Univers % cream 04-25 103 area(s) 2 ity of 00:00: (two) [place] 00 times Medical daily as Branch needed for Pain (scale 4-6). Apply 5g to affected areas BID PRN atorvastati Yes 80mg Take 1 Univ ers n 80 mg 04-25 tablet by ity of tablet 00:00: mouth in [place] 00 the Medical morning. Branch metoprolol Yes 100mg Take 1 Univ ers tartrate 04-25 tablet by ity of 100 mg 00:00: mouth [place] tablet 00 every 12 Medical (twelve) Branch hours. nitroglycer Yes [id number] .4mg Place 1 Univers in 0.4 mg 04-25 tablet ity of sublingual 00:00: under the [place] tablet 00 tongue Medical every 5 Branch (five) minutes as needed for Chest pain. lisinopriL Yes 5mg Take 1 Unive rs 5 mg tablet 04-25 tablet by ity of 00:00: mouth in [place] 00 the Medical morning. Branch insulin Yes [id number] 40U inject 40 [facility] degludec 04-25 Units ity of (TRESIBA 00:00: under the [place] FLEXTOUCH 00 skin 2 Medical U-100) 100 (two) Branch unit/mL (3 times mL) InPn daily with meals. semaglutide Yes [id number] 1mg inject 1 Univers (OZEMPIC) 1 04-25 mg under ity of mg/dose (4 00:00: the skin [place] mg/3 mL) 00 weekly. Medical PnIj Branch metformin Yes [id number] 500mg Take 1 Univers ER 500 mg 04-25 tablet by ity o f 24 hr 00:00: mouth in [place] tablet 00 the Medical morning Branch and 1 tablet in the evening. doxepin 10 Yes [id number] 10mg Take 1 Un l[place] mg capsule 04-25 capsule by ity of 00:00: mouth at [place] 00 bedtime. Medical Branch fluticasone Yes [id number] 1{spray Use 1 [facility] propionate 04-25 } [place] in ity o f 50 00:00: each [place] mcg/actuati 00 nostril in Me dical on nasal the Branch spray morning. Diclofenac Yes [id number] Apply to Univers Sodium 04-25 103 area(s) 4 ity of (VOLTAREN) 00:00: (four) [place] 1 % gel 00 times Medical daily. Branch Apply 4 g QID on affected areas Lidocaine 5 Yes [id number] Apply to Univers % cream 04-25 103 [...] 12 Medical (twelve) Branch hours. nitroglycer Yes [id number] .4mg Place 1 Univers in 0.4 mg 04-25 tablet ity of sublingual 00:00: under the [place] tongue Medical every 5 Branch (five) minutes as needed for Chest pain. lisinopriL Yes 5mg Take 1 Unive rs 5 mg tablet 04-25 tablet by ity of 00:00: mouth in [place] 00 the Medical morning. Branch insulin Yes [id number] 40U inject 40 Univers degludec 04-25 Units ity of (TRESIBA 00:[place] FLE[place] 00 skin 2 Medical U-100) 100 (two) Branch unit/mL (3 times mL) InPn daily with meals. semaglutide Yes [id number] 1mg inject 1 Univers (OZEMPIC) 1 04-25 mg under ity of mg/dose (4 00:00: the skin [place] as mg/3 mL) 00 weekly. Medical PnIj Branch metformin Yes [id number] 500mg Take 1 Univers ER 500 mg 04-25 tablet by ity o f 24 hr 00:00: mouth in [place] tablet 00 the Medical morning Branch and 1 tablet in the evening. doxepin 10 Yes [id number] 10mg Take 1 Un lizbeth mg capsule 04-25 capsule by ity of 00:00: mouth at [place] 00 bedtime. Medical Branch fluticasone 0 Yes [id number] 1{spray Use 1 Univers propionate 04-25 } [place] in ity o f 50 00:00: each [place] mcg/actuati 00 nostril in Me dical on nasal the Branch spray morning. Diclofenac 0 Yes [id number] Apply to Univers Sodium 04-25 103 area(s) 4 ity of (VOLTAREN) 00:00: (four) [place] 1 % gel 00 times Medical daily. Branch Apply 4 g QID on affected areas Lidocaine 5 Yes [id number] Apply to Univers % cream 04-25 103 [...] 12 Medical (twelve) Branch hours. nitroglycer Yes [id number] .4mg Place 1 Univers in 0.4 mg 04-25 tablet ity of sublingual 00:00: [place] tablet 00 tongue Medical every 5 Branch (five) minutes as needed for Chest pain. lisinopriL Yes 5mg Take 1 Unive rs 5 mg tablet 04-25 tablet by ity of 00:00: mouth in [place] 00 the Medical morning. Branch insulin Yes [id number] 40U inject 40 Univers degludec 04-25 Units ity of (TRESIBA 00:00: [place] FLEXTOUCH 00 skin 2 Medical U-100) 100 (two) Branch unit/mL (3 times mL) InPn daily with meals. semaglutide Yes [id number] 1mg inject 1 Univers (OZEMPIC) 1 - mg under ity of mg/dose (4 00:00: the skin [place] as mg/3 mL) 00 weekly. Medical PnIj Branch metformin Yes [id number] 500mg Take 1 Univers ER 500 mg 04-25 tablet by ity o f 24 hr 00:00: mouth in [place] tablet 00 the Medical morning Branch and 1 tablet in the evening. doxepin 10 0 Yes [id number] 10mg Take 1 Un lizbeth mg capsule 04-25 capsule by ity of 00:00: mouth at [place] 00 bedtime. Medical Branch fluticasone 0 Yes [id number] 1{spray Use 1 Univers propionate 04-25 } [place] in ity o f 50 00:00: each [place] mcg/actuati 00 nostril in Me dical on nasal the Branch spray morning. Diclofenac 0 Yes [id number] Apply to Univers Sodium 04-25 103 area(s) 4 ity of (VOLTAREN) 00:00: (four) [place] 1 % gel 00 times Medical daily. Branch Apply 4 g QID on affected areas Lidocaine 5 0 Yes [id number] Apply to Univers % cream 04-25 103 [...] 12 Medical (twelve) Branch hours. nitroglycer Yes [id number] .4mg Place 1 Univers in 0.4 mg 04-25 tablet ity of sublingual 00:00: [place] tablet 00 tongue Medical every 5 Branch (five) minutes as needed for Chest pain. lisinopriL Yes 5mg Take 1 Unive rs 5 mg tablet 04-25 tablet by ity of 00:00: mouth in [place] 00 the Medical morning. Branch insulin Yes [id number] 40U inject 40 Univers degludec 04-25 Units ity of (TRESIBA 00:00: [place] FLEXTOUCH 00 skin 2 Medical U-100) 100 (two) Branch unit/mL (3 times mL) InPn daily with meals. semaglutide Yes [id number] 1mg inject 1 Univers (OZEMPIC) 1 - mg under ity of mg/dose (4 00:00: the skin [place] as mg/3 mL) 00 weekly. Medical PnIj Branch metformin 0 Yes [id number] 500mg Take 1 Univers ER 500 mg 04-25 tablet by ity o f 24 hr 00:00: mouth in [place] tablet 00 the Medical morning Branch and 1 tablet in the evening. doxepin 10 0 Yes [id number] 10mg Take 1 Un lizbeth mg capsule 04-25 capsule by ity of 00:00: mouth at [place] 00 bedtime. Medical Branch fluticasone Yes [id number] 1{spray Use 1 Univers propionate 04-25 } [place] in ity o f 50 00:00: each [place] mcg/actuati 00 nostril in Me dical on nasal the Branch spray morning. Diclofenac Yes [id number] Apply to Univers Sodium 04-25 103 area(s) 4 ity of (VOLTAREN) 00:00: (four) [place] 1 % gel 00 times Medical daily. Branch Apply 4 g QID on affected areas Lidocaine 5 Yes [id number] Apply to Univers % cream 04-25 103 area(s) 2 ity of 00:00: (two) [place] 00 times Medical daily as Branch needed for Pain (scale 4-6). Apply 5g to affected areas BID PRN rivaroxaban 2021- No [id number] 20mg Take 1 Uni vers 20 mg 04-25 tablet by ity of tablet 00:00: 00:00 mouth in [place] 00 :00 the Medical morning. Branch Indication s: atrial fibrillati on rivaroxaban 2021- No [id number] 20mg Take 1 Uni vers 20 mg 04-25 tablet by ity of tablet 00:00: 00:00 mouth in [place] 00 :00 the Medical morning. Branch Indication s: atrial fibrillati on amLODIPine 2021- No 5mg Take 1 Univ ers 5 mg tablet 04-25 tablet by it y of 00:00: 00:00 mouth in [place] 00 :00 the Medical morning. Branch fenofibrate 2021- No 67mg Take 1 Uni vers micronized 04-25 capsule by it y of 67 mg 00:00: 00:00 mouth in [place] capsule 00 :00 the Medical morning. Branch isosorbide 2021- No 120mg Take 1 Uni vers mononitrate 04-25 tablet by it y of 120 mg 24 00:00: 00:00 mouth in [facility] as hr tablet 00 :00 the Medical morning. Branch butalbital- 2021- No [id number] 1{tbl} Take 1 Univers acetaminoph 04-25 tablet by it y of en-caff 00:00: 00:00 mouth [place] 50-325-40 00 :00 every 4 Medical mg tablet (four) Branch hours as needed (PADRON). traZODone 2021- No [id number] 50mg Take 1 Un lizbeth 50 mg [...] of 67 mg 00:00: 00:00 mouth in [place] capsule 00 :00 the Medical morning. Branch isosorbide 2021- No 120mg Take 1 Uni vers mononitrate 04-25 tablet by it y of 120 mg 24 00:00: 00:00 mouth in [place] as hr tablet 00 :00 the Medical morning. Branch butalbital- 2021- No [id number] 1{tbl} Take 1 Univers acetaminoph 04-25 tablet by it y of en-caff 00:00: 00:00 mouth [place] 50-325-40 00 :00 every 4 Medical mg tablet (four) Branch hours as needed (PADRON). traZODone 2021- No [id number] 50mg Take 1 Un lizbeth 50 mg 04-25 tablet by ity of tablet 00:00: 00:00 mouth at [place] 00 :00 bedtime. Medical Branch amLODIPine 2021- No [id number] 5mg Take 1 U nivers 5 mg tablet 09-06 tablet by it y of 00:00: 00:00 mouth [place] 00 :00 daily. Medical Branch atorvastati 2021- No [id number] 80mg Take 1 Univers n 80 mg 09-06 tablet by ity of tablet 00:00: 00:00 mouth [place] 00 :00 daily. Medical Branch metoprolol 2021- No [id number] 100mg Take 1 Univers tartrate 09-06 tablet by ity o f 100 mg 00:00: 00:00 mouth [place] tablet 00 :00 every 12 Medical (twelve) Branch hours. nitroglycer 2021- No [id number] .4mg Place 1 Univers in 0.4 mg 09-06 tablet ity of sublingual 00:00: 00:00 under the [place] tablet 00 :00 tongue Medical every 5 Branch (five) minutes as needed for Chest pain. aspirin 81 Yes [id number] 81mg Take 1 Un lizbeth mg chewable 5-25 tablet by ity of tablet 00:00: mouth [place] 00 daily. Medical Branch DULoxetine Yes [id number] 30mg Take 1 U nivers (CYMBALTA) 5-25 capsule by ity of 30 mg 00:00: mouth [place] capsule 00 daily. Medical Branch aspirin 81 Yes [id number] 81mg Take 1 Un lizbeth mg chewable 5-25 tablet by ity of tablet 00:00: mouth [place] 00 daily. Medical Branch DULoxetine Yes [id number] 30mg Take 1 U nivers (CYMBALTA) 5-25 capsule by ity of 30 mg 00:00: mouth [place] capsule 00 daily. Medical Branch aspirin 81 2021- No [id number] 81mg Take 1 U nivers mg chewable 5-25 11-12 tablet by it y of tablet 00:00: 00:00 mouth [place] 00 :00 daily. Medical Branch DULoxetine 2021- No [id number] 30mg Take 1 Univers (CYMBALTA) 5-25 11-12 capsule by it y of 30 mg 00:00: 00:00 mouth [place] capsule 00 :00 daily. Medical Branch aspirin 81 2021- No [id number] 81mg Take 1 U nivers mg chewable 5-25 11-12 tablet by it y of tablet 00:00: 00:00 mouth [place] 00 :00 daily. Medical Branch DULoxetine 2021- No [id number] 30mg Take 1 Univers (CYMBALTA) 5-25 11-12 capsule by it y of 30 mg 00:00: 00:00 mouth [place] capsule 00 :00 daily. Medical Branch clopidogreL 2021- No [id number] 75mg Take 1 Univers 75 mg 01-16 tablet by ity of tablet 00:00: 00:00 mouth [place] 00 :00 daily. Medical Branch fenofibrate 2021- No [id number] 67mg Take 1 Univers micronized 01-16 capsule by it y of 67 mg 00:00: 00:00 mouth [place] capsule 00 :00 daily. Medical Branch isosorbide 2021- No [id number] 120mg Take 1 Univers mononitrate 01-16 tablet by it y of 120 mg 24 00:00: 00:00 mouth [place] hr tablet 00 :00 daily. Medical Branch lisinopriL 2021- No [id number] 5mg Take 1 U nivers 5 mg tablet 01-16 tablet by it y of 00:00: 00:00 mouth [place] 00 :00 daily. Medical Branch SANTYL 2017-08 Yes APPLY Methodi ointment 2-[address] 00[facility] 00 l SANTYL 2017-08 Yes APPLY Methodi ointment 2-03 [...] mg day. tablet gabapentin 2017-08 Yes 300mg Q.[id number] Take 300 Methodi (NEURONTIN) 1-27 [id number] mg by s t 300 mg 08:56: [...] (two) l times a day with meals. metoprolol 2017-08 Yes 50mg Q.5D Take 50 mg M ethodi succinate 09-[address] XL 08:56: (two) Hospita (TOPROL-XL) 11 times a l 50 mg 24 hr day. tablet dextroamphe 2017-08 Yes 20mg Q.5D Take 20 mg Methodi tamine-amph [address] etamine 08:56: (two) Hospita (ADDERALL) 11 times a l 20 mg day. tablet gabapentin 2017-08 Yes 300mg Q.[id number] Take 300 Methodi (NEURONTIN) -27 [id number] mg by s t 300 mg 08:56: [...] with meals. collagenase 2017-08 Yes Apply to Me thodi (SANTYL) 09-[address] ointment 00:00: daily with Hos ivelisse 00 wet to dry l dressing collagenase 2017-08 Yes Apply to Me thodi (SANTYL) [address] ointment 00:00: daily with Hos ivelisse 00 wet to dry l dressing Vital Signs Vital Name Observation Time Observation Value Comments Source Systolic blood 2022-07-08 19:45:00 112 mm[Hg] [facility] [place], operated by [facility] Diastolic blood 2022-07-08 19:45:00 67 mm[Hg] Unive rsity of pressure [place] [facility] Heart rate 2022-07-08 19:45:00 78 /min [facility] [place] [facility] Respiratory rate 2022-07-08 19:45:00 22 /min Univ ersity of [place] [facility] Oxygen saturation in 2022-07-08 19:45:00 98 /min University of Arterial blood by [facility] zaina Pulse oximetry Branch Body temperature 2022-07-08 18:00:00 36.94 Pilar Univ ersity of [place] [facility] Body height 2022-07-07 01:54:00 172.7 cm [facility] [place] [facility] Body weight 2022-07-07 01:54:00 120.203 kg [facility] [place] [facility] BMI 2022-07-07 01:54:00 40.29 kg/m2 [facility] [place] [facility] Heart rate 2022-07-08 18:00:00 69 /min [facility] [place] [facility] Body temperature 2022-07-08 18:00:00 36.94 Pilar Univ ersity of [place] [facility] Respiratory rate 2022-07-08 18:00:00 11 /min Univ ersity of [place] [facility] Oxygen saturation in 2022-07-08 18:00:00 95 /min University of Arterial blood by [facility] zaina Pulse oximetry Branch Systolic blood 2022-07-08 17:45:00 117 mm[Hg] Univer sity of pressure [place] [facility] Diastolic blood 2022-07-08 17:45:00 78 mm[Hg] Unive rsity of pressure [place] [facility] Body height 2022-07-07 01:54:00 172.7 cm [facility]i ty [facility] [place] [facility] Body weight 2022-07-07 01:54:00 120.203 kg [facility] [place] [facility] BMI 2022-07-07 01:54:00 40.29 kg/m2 [facility] [place] [facility] Systolic blood 2022-04-25 18:59:00 160 mm[Hg] Univer sity of pressure [place] [facility] Diastolic blood 2022-04-25 18:59:00 91 mm[Hg] Unive rsity of pressure [place] [facility] Heart rate 2022-04-25 18:59:00 96 /min [facility]i ty [facility] [place] [facility] Oxygen saturation in 2022-04-25 18:59:00 96 /min [place] of Arterial blood by [facility] Pulse oximetry Branch Respiratory rate 2022-04-25 18:55:00 19 /min [facility] Body height 2022-04-25 18:55:00 175.3 cm Universi [facility] Body weight 2022-04-25 18:55:00 124.603 kg [facility] BMI 2022-04-25 18:55:00 40.57 kg/m2 [facility] Systolic blood 2022-04-25 18:59:00 160 mm[Hg] Univer sity of pressure [facility] Diastolic blood 2022-04-25 18:59:00 91 mm[Hg] [facility] rate 2022-04-25 18:59:00 96 /min [facility] Oxygen saturation in 2022-04-25 18:59:00 96 /min [place] of Arterial blood by [facility] Pulse oximetry Branch Respiratory rate 2022-04-25 18:55:00 19 /min [facility] Body height 2022-04-25 18:55:00 175.3 cm [facility] Body weight 2022-04-25 18:55:00 124.603 kg [facility] BMI 2022-04-25 18:55:00 40.57 kg/m2 [facility] Procedures Procedure Date / Time Performing Clinician Source Performed PHYSICIAN ORDERS 2023-03-29 05:01:00 Doctor Unassigned, [facility] ACTIVATED PARTIAL THRMPLAS 2022-07-08 17:49:00 Maurizio Saab [facility] ACTIVATED PARTIAL THRMPLAS 2022-07-08 17:49:00 Maurizio Saab [facility] POCT GLUCOSE (AUTOMATED) 2022-07-08 17:39:00 Demetria Nance [facility] [place] [facility] POCT GLUCOSE (AUTOMATED) 2022-07-08 17:39:00 Demetria Nance [facility] [place] [facility] CARDIAC CATHETERIZATION 2022-07-08 15:09:53 [facility] CARDIAC CATHETERIZATION 2022-07-08 15:09:53 Ivana Rodgers L [facility] ersity of [facility] CARDIAC CATHETERIZATION 2022-07-08 15:09:53 Ivana Rodgers L Univ ersity of [facility] CARDIAC CATHETERIZATION 2022-07-08 15:09:53 Sean Rodgersia L Univ ersity of [facility] CARDIAC CATHETERIZATION 2022-07-08 15:09:53 Sean Rodgersia L [facility] ersity of [facility] CARDIAC CATHETERIZATION 2022-07-08 15:09:53 Ivana Rodgers L [facility] ersity of [facility] CATH PROCEDURE LOG 2022-07-08 14:47:36 [facility] CATH PROCEDURE LOG 2022-07-08 14:47:36 Vishal Ivana L [facility] POCT GLUCOSE (AUTOMATED) 2022-07-08 13:53:00 [facility]) 2022-07-08 13:53:00 [facility] THRMPLAS 2022-07-08 10:31:00 Marlon, Demetria [facility] ACTIVATED PARTIAL THRMPLAS 2022-07-08 10:31:[address] [facility] POCT GLUCOSE (AUTOMATED) 2022-07-08 10:13:00 [facility] PO[facility] (AUTOMATED) 2022-07-08 10:13:00 [facility] PHOS[facility]US 2022-07-08 09:38:00 Marlon [facility] MAGNESIUM 2022-07-08 09:38:00 Marlon, [facility] BASIC METABOLIC PANEL (NA, 2022-07-08 09:38:[address] [facility] K, CL, CO2, GLUCOSE, BUN, Medica l Branch CREATININE, CA) CBC WITHOUT DIFF 2022-07-08 09:38:00 [facility] 2022-07-08 09:38:00 Marlon, Demetria [facility] MAGNESIUM 2022-07-08 09:38:00 Marlon, [facility] BASIC METABOLIC PANEL (NA, 2022-07-08 09:38:[address] [facility] K, CL, CO2, GLUCOSE, BUN, Medica l Branch CREATININE, CA) CBC WITHOUT DIFF 2022-07-08 09:38:00 Sudhakar Lara [facility] POCT GLUCOSE (AUTOMATED) 2022-07-08 02:10:00 Bailey Nunez iversity [facility] POCT GLUCOSE (AUTOMATED) 2022-07-08 02:10:00 Bailey Nunez Un iversity [facility] ACTIVATED PARTIAL THRMPLAS 2022-07-07 22:47:[address] [facility] ACTIVATED PARTIAL THRMPLAS 2022-07-07 22:47:[address] [facility] POCT GLUCOSE (AUTOMATED) 2022-07-07 22:42:00 Bailey Nunez iversity [facility] POCT GLUCOSE (AUTOMATED) 2022-07-07 22:42:00 Bailey Nunez Un iversity [facility] TRANSTHORACIC ECHO (TTE) 2022-07-07 19:42:38 Demetria Nance [facility] TRANSTHORACIC ECHO (TTE) 2022-07-07 19:42:38 Demetria Nance [facility] PO[facility] GLUCOSE (AUTOMATED) 2022-07-07 17:19:00 Bailey Nunez iversity [facility] POCT GLUCOSE (AUTOMATED) 2022-07-07 17:19:00 Bailey Nunez iversity [facility] PROTHROMBIN TIME / INR 2022-07-07 15:34:00 [facility] ACTIVATED PARTIAL THRMPLAS 2022-07-07 15:34:[address] [facility] PROTHROMBIN TIME / INR 2022-07-07 15:34:00 [facility] ACTIV[facility] PARTIAL THRMPLAS 2022-07-07 15:34:[address] [facility] PHOSPHORUS 2022-07-07 10:41:00 Marlon, [facility] MAGNESIUM 2022-07-07 10:41:00 Marlon, [facility] TROPONIN I 2022-07-07 10:41:00 Marlon, [facility] BASIC METABOLIC PANEL (NA, 2022-07-07 10:41:00 Marlon, [facility] K, CL, CO2, GLUCOSE, BUN, Medica l Branch CREATININE, CA) CBC WITH DIFF 2022-07-07 10:41:00 Marlon, [facility] PHOSPHORUS 2022-07-07 10:41:00 Marlon, [facility] MAGNESIUM 2022-07-07 10:41:00 Marlon, [facility] TROPONIN I 2022-07-07 10:41:00 Marlon, [facility] BASIC METABOLIC PANEL (NA, 2022-07-07 10:41:00 Marlon, [facility] K, CL, CO2, GLUCOSE, BUN, Medica l Branch CREATININE, CA) CBC WITH DIFF 2022-07-07 10:41:00 Marlon, [facility] POCT GLUCOSE (AUTOMATED) 2022-07-07 03:35:00 [facility] POCT GLUCOSE (AUTOMATED) 2022-07-07 03:35:00 Bailey Nunez [facility] TROPONIN I 2022-07-07 02:28:00 Marlon, [facility] TROPONIN I 2022-07-07 02:28:00 Marlon, [facility] MRSA / MSSA SCREEN BY PCR, 2022-07-07 02:14:00 Marlon, [facility] MRSA / MSSA SCREEN BY PCR, 2022-07-07 02:14:00 Marlon, [facility] CT ANGIOGRAM CHEST 2022-07-06 23:25:27 Bailey Nunez [facility] CT ANGIOGRAM 2022-07-06 23:25:27 Bailey Nunez [facility] ABDOMEN/PELVIS [facility] CT ANGIOGRAM CHEST 2022-07-06 23:25:27 Bailey Nunez [facility] CT ANGIOGRAM 2022-07-06 23:25:27 Bailey Nunez [facility] ABDOMEN/PELVIS [facility] XR CHEST 1 VW 2022-07-06 20:04:00 [facility] XR CHEST 1 VW 2022-07-06 20:04:00 [facility] LIPASE 2022-07-06 20:00:00 [facility] MAGNESIUM 2022-07-06 20:00:00 [facility] TROPONIN I 2022-07-06 20:00:00 [facility] COMP. METABOLIC PANEL 2022-07-06 20:00:00 Bailey Nunez [facility] ([id number]) [facility] CBC WITH DIFF 2022-07-06 20:00:00 [facility] GLYCOSYLATED HEMOGLOBIN 2022-07-06 20:00:00 Bailey Nunez [facility] (A1C) [facility] PROTHROMBIN TIME / INR 2022-07-06 20:00:00 Bailey Nunez [facility] D-DIMER 2022-07-06 20:00:00 [facility] ACTIVATED PARTIAL THRMPLAS 2022-07-06 20:00:[address] [facility] N-TERMINAL PRO-BNP 2022-07-06 20:00:00 Bailey Nunez [facility] LIPASE 2022-07-06 20:00:00 [facility] MAGNESIUM 2022-07-06 20:00:00 [facility] TROPONIN I 2022-07-06 20:00:00 [facility] COMP. METABOLIC PANEL 2022-07-06 20:00:00 Bailey Nunez [facility] ([id number]) [facility] CBC WITH DIFF 2022-07-06 20:00:00 [facility] GLYCOSYLATED HEMOGLOBIN 2022-07-06 20:00:00 Bailey Nunez [facility] (A1C) [facility] PROTHROMBIN TIME / INR 2022-07-06 20:00:00 Bailey Nunez [facility] D-DIMER 2022-07-06 20:00:00 [facility] ACTIVATED PARTIAL THRMPLAS 2022-07-06 20:00:[address] [facility] N-TERMINAL PRO-BNP 2022-07-06 20:00:00 Bailey Nunez [facility] HB ECG ROUTINE & RHYTHM 2022-07-06 19:47:46 Bailey Nunez [facility] HB ECG ROUTINE & RHYTHM 2022-07-06 19:47:46 Bailey Nunez [facility] NOTICE OF PRIVACY 2022-07-06 19:38:47 Doctor Unassigned, [facility] NOTICE OF PRIVACY 2022-07-06 19:38:47 Doctor Unassigned, [facility] CONSENT/REFUSAL FOR 2022-07-06 19:37:24 Doctor Unaminna, [facility] DIAGNOSIS AND TREATMENT [facility] CONSENT/REFUSAL FOR 2022-07-06 19:37:24 [facility] DIAGNOSIS AND TREATMENT [facility] URINALYSIS 2022-07-06 13:00:00 Bailey [facility] URINE DRUG (IMMUNOASSAY) - 2022-07-06 13:00:00 Bailey Nunez [facility] COMPREHENSIVE DRUG SCREEN Medica Branch W/O REFLEX URINALYSIS 2022-07-06 13:00:00 [facility] URINE DRUG (IMMUNOASSAY) - 2022-07-06 13:00:00 Bailey Nunez [facility] DRUG SCREEN Medica l Branch W/O REFLEX Plan of Care Planned Activity Planned Date Details Comments Source Future Scheduled 2023-04-30 COVID-19 VACCINE Methodi [facility] Test 01:49:14 (#1) [code = COVID-19 VACCINE (#1)] Future Scheduled 2023-04-30 INFLUENZA VACCINE Method [facility] Test 01:49:14 (#1) [code = INFLUENZA VACCINE (#1)] Future Scheduled 2023-03-29 COVID-19 VACCINE Methodi [facility] Test 13:29:32 (#1) [code = COVID-19 VACCINE (#1)] Future Scheduled 2023-03-29 INFLUENZA VACCINE Method [facility] Test 13:29:32 [code = INFLUENZA VACCINE] Encounters Start End Encounter Admission Attending Care Care Encounter Source Date/Time Date/Time Type Type Clinicians Facility Department ID 2023-04-25 Outpatient Brandt, [facility] [id number] Common 09:03:00 Price [id number] [facility] 2023-04-24 [facility] [id number] Common 10:56:01 Price [id number] [facility] 2023-04-14 Outpatient Brandt, [facility] [id number] Common 09:38:01 Price [id number] [facility] 2023-04-11 Outpatient Brandt, [facility] [id number] Common 08:02:00 Price [id number] [facility] 2022-10-30 [facility] [id number] Common 11:00:03 Price [id number] [facility] 2022-08-20 Outpatient Brandt, [facility] [id number] Common 11:13:03 Price [id number] [facility] 2022-08-03 [facility] [id number] Common 06:59:00 Price [id number] [facility] 2022-07-31 [facility] [id number] Common 09:18:05 Price [id number] [facility] 2022-06-19 Outpatient Brandt, [facility] [id number] Common 09:35:04 Price [facility] 2022-06-10 Outpatient Brandt, [facility] [id number] Common 09:23:04 Price [facility] 2022-06-07 Outpatient Brandt, [facility] [id number] Common 08:06:03 Price [facility] 2021-06-24 Emergency [facility] [id number] Univers 20:44:54 ity of [facility] 2021-06-22 Emergency [facility] [id number] Univers 22:05:10 ity of [facility] 2021-06-22 Emergency [facility] [id number] Univers 20:04:15 ity of [facility] 2023-03-29 2023-03-29 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 A[facility] Main [facility] 1.2.8 40.114 [id number] Univers 08:15:00 08:30:00 Visit Aleksander Hanks 350.1.13.10 ity of [place] [id number] De dical NAL 353 [facility] 2023-03-29 2023-03-29 Outpatient R DEMARIO [facility] [id number] Univers 08:15:00 08:15:00 ALEKSANDER navarro [facility] 2023-03-29 2023-03-29 Orders Doctor FLOWERS 1.2.840.114 [id number] Univers 00:00:00 00:00:00 Only Unassigned, NOEL 350.1.13.10 ity of [place] [facility] 4.2.7.2.686 Robert as [phone] [address] 2023-02-26 2023-02-26 Telephone Anuj [facility] 1.2.119.576 [id number] Univers 00:00:00 00:00:00 Julius AUGUSTIN 350.1.13.10 ity of [place] [id number] De dical NAL 059 [facility] 2023-02-24 2023-02-24 Telephone [facility] 1.2.318.278 [id number] Univers 00:00:00 00:00:00 Julius AUGUSTIN 350.1.13.10 ity of [place] [phone] De dical NAL 059 [facility] 2022-07-30 2022-07-30 Outpatient R ILIANA [facility] [id number] Univers 15:40:00 15:40:00 KONSTANTIN navarro [facility] 2022-07-24 2022-07-24 [facility]phone [facility] 1.2.840.114 [id number] Univers 00:00:00 00:00:00 Konstantin AUGUSTIN 350.1.13.10 i ty of [place] [phone] De dical NAL 044 [facility] 2022-07-22 2022-07-22 [facility]ill [facility] 1.2.840.114 [id number] Univers 00:00:00 00:00:00 Konstantin AUGUSTIN 350.1.13.10 i ty of [place] 4.[place].7.2.[place] [phone] De dical NAL 044 [facility] 2022-07-09 2022-07-09 Transition HenryMARIBELAmy 1.2.840.114 [id number] Univers 00:00:00 00:00:00 of Care Marleny HOU 350.1.13.10 i ty of [place]2.[place] [id number] [address] 2022-07-06 2022-07-08 Inpatient X DEMETRIA NANCE [facility] [id number] Univers 13:47:00 15:55:00 DEMETRIA NANCE [facility] 2022-07-06 2022-07-08 [facility] Bailey N[facility] 1.2.840. 114 [id number] Univers 13:47:00 15:55:00 Encounter Demetria Nance [facility] 350.1.13.10 it[place] of [place].2.[place] [id number] [facility] [address] ([facility]) 2022-07-08 2022-07-08 Surgery Fabian [facility] 1.2.840.114 [id number] Univers 10:00:00 12:00:00 Tanner Harpreet [facility] 350.1.13.10 it y of [place].2.[place] [phone] [facility] [address] ([facility]) 2022-05-29 2022-05-29 [facility] [id number] Univers 15:20:00 15:20:00 [facility]22-[facility]-29 2022-05-29 Outpatient [facility] [id number] Univers 15:20:00 15:20:[address] [facility] 2022-05-28 2022-05-28 [facility]phone [facility] 1.2.840.114 [id number] Univers 00:00:00 00:00:00 Konstantin AUGUSTIN 350.1.13.10 i ty of [place] 4.[place] [id number] [address] 2022-04-25 2022-04-25 Outpatient R ILIANA [facility] 1041 [id number] Univers 15:00:00 15:37:21 KONSTANTIN navarro [facility] 2022-04-25 2022-04-25 Office [facility] 1.2.840.114 [id number] Univers 15:00:00 15:37:21 Visit Konstantin AUGUSTIN 350.1.13.10 i ty of [place] 4.[place].2.[place] [id number] [address] 2022-04-25 2022-04-25 Outpatient [facility] [id number] Univers 14:00:00 14:32:02 JULIUS navarro [facility] 2022-04-25 2022-04-25 Office [facility] 1.2.840.114 [id number] Univers 14:00:00 14:32:02 Visit Julius AUGUSTIN 350.1.13.10 ity of [place] [id number] De dic[address] 2022-04-25 2022-04-25 Office [facility] 1.2.840.114 [id number] Univers 14:00:00 14:32:02 Visit Julius AUGSUTIN 350.1.13.10 ity of [place] [id number] [address] 2022-04-25 2022-04-25 Outpatient [facility] [id number] Univers 14:00:00 14:32:02 JULIUS ity o f [facility] 2022-04-25 2022-04-25 Orders Doctor KRISTIE 1.2.840.114 [id number] Univers 00:00:00 00:00:00 Only Unassigned, NOEL 350.1.13.10 [facility] 4.2.7.2.686 [place] [phone] [address] 2022-04-25 2022-04-25 Letter [facility] 1.2.840.114 [id number] Univers 00:00:00 00:00:00 (Out) Julius AUGUSTIN 350.1.13.10 ity of [place] [id number] De dic[address] 2022-03-29 2022-03-29 Refill [facility] 1.2.840.114 [id number] Univers 00:00:00 00:00:00 Tessasanamlesvia AUGUSTIN 350.1.13.10 ity of [place] [id number] De dicnc NAL [address] [place] [address] 2021-09-04 2021-09-04 Refill [facility] 1.2.840.114 [id number] Univers 00:00:00 00:00:00 Carloslesvia RACHELTON 350.1.13.10 ity of [place] [id number] De dical NAL [address] [facility] 2021-07-02 2021-07-02 YIFAN Clancy 1.2.840.114 [id number] Univers 00:00:00 00:00:00 Management Kayleen GARCÍAY 350.1.13.10 ity of [place].2.[place] [id number] [place] 602556 [place] 2021-01-17 2021-01-17 [facility] [id number] Univers 10:20:00 10:20:00 JULIUS navarro o f [facility] 2021-01-14 2021-01-16 Emergency Betsy Rodriguez [facility] 1.2.840. 114 [id number] Univers 17:00:00 16:50:00 Tiffanie Mendoza 350.1.13.10 ity of [place].2.[place] [phone] [place] 602551 [place] 2021-01-14 2021-01-16 Outpatient X REJI [facility] [id number] Univers 17:00:00 16:50:00 TIFFANIE navarro [facility] 2021-01-14 2021-01-14 Orders Doctor KRISTIE 1.2.840.114 [id number] Univers 00:00:00 00:00:00 Only Unassigned, NOEL 350.1.13.10 ity [place] [facility] 4.2.7.2.686 Robert as [phone] [facility] [address] 2021-01-04 2021-01-04 [facility]phone [facility] 1.2.208.884 [id number] Univers 00:00:00 00:00:00 Julius Augustin 350.1.13.10 ity of [place] [id number] De dicnc nal [address] [facility] [address] 2020-12-25 2020-12-25 Outpatient [facility] [id number] Univers 09:40:00 09:40:00 JULIUS bondy o f [facility] 2020-12-19 2020-12-19 Singh Correa, [facility] 1.2.840.114 [id number] Univers 00:00:00 00:00:00 Julius Augustin 350.1.13.10 ity of [place] [id number] [place] 048199 [facility] 2020-10-06 2020-10-06 Orders Doctor KRISTIE 1.2.840.114 [id number] Univers 00:00:00 00:00:00 Only Unassigned, NOEL 350.1.13.10 ity of [place] [facility] 4.2.7.2.686 Robert as [phone] [facility] [address] 2020-09-19 2020-09-19 Patient Jennie Ramirez 1.2.840.114 [id number] 00:00:00 00:00:00 Outreach E NOEL 350.1.13.10 [facility] 4.2.7.2.686 [id number] [facility] 2020-09-19 2020-09-19 Patient Jennie Ramirez 1.2.840.114 [id number] Univers 00:00:00 00:00:00 Outreach E NOEL 350.1.13.10 i ty of [facility] 4.2.7.2.686 [place] as [phone] [facility] [address] 2020-09-14 2020-09-14 Patient Jennie Ramirezamy 1.2.840.114 [id number] 00:00:00 00:00:00 Outreach E Hou 350.1.13.10 [place] 4.2.7.2.686 [id number] [facility] 2020-09-14 2020-09-14 Patient Jennie Ramirez Yfian 1.2.840.114 [id number] Univers 00:00:00 00:00:00 Outreach E Hou 350.1.13.10 i ty of [place] 4[place].2.[place] [id number] [facility] [address] 2020-09-12 2020-09-12 Transition Yifan Banerjee 1.2.840.114 [id number] 00:00:00 00:00:00 of Care Corie Hou 350.1.13.10 [place] 4.2.7.2.686 [id number] 403 2020-09-12 2020-09-12 Transition Yifan Banerjee 1.2.840.114 [id number] [id number] Univers 00:00:00 00:00:00 of Care Corie Garcíay 350.1.13.10 ity of [place] [phone] [facility] [address] 2020-09-06 2020-09-09 [facility] Angie 1.2.840.1 14 [id number] 09:57:00 12:27:00 Encounter Any Lam 350.1.13.1 0 [facility] 4.2.7.2.686 [id number] 2020-09-06 2020-09-09 [facility] [id number] Univers 09:57:00 12:27:00 [facility] ity [facility] 2020-09-06 2020-09-09 [facility] Angie 1.2.840.1 14 [id number] [facility] 09:57:00 12:27:00 Encounter Any Lam 350.1.13.1 0 ity of [facility] 4.2.7.2.686 [place] [phone] [facility] 090 [place] 2020-09-06 2020-09-06 Telephone [facility] 1.2.836.807 [id number] 00:00:00 00:00:00 Julius Meadow 350.1.13.10 [place] 4.2.7.2.686 Professio [id number] [address] 2020-09-06 2020-09-06 [facility] 1.2.760.379 [id number] [facility] 00:00:00 00:00:00 Qiasanamjun Meadow 350.1.13.10 ity of [place] [id number] De dical critical access hospital9 [facility] 2020-09-01 2020-09-03 Emergency Isamar Medina [facility] 1.2.840 .114 [id number] 16:41:00 14:30:00 Randolph Leggett 350.1.13.10 [place] 4.2.7.2.686 [place] [id number] 081 2020-09-01 2020-09-03 Outpatient X OLEKSANDR [facility] [id number] Univers 16:41:00 14:30:00 RANDOLPH itfernando of [facility] 2020-09-01 2020-09-03 Emergency Isamar Medina [facility] 1.2.840 .114 [id number] Univers 16:41:00 14:30:00 Randolph Leggett 350.1.13.10 ity of [place] [phone] [address] 2020-07-05 2020-07-05 Orders Doctor FLOWERS 1.2.840.114 [id number] 00:00:00 00:00:00 Only Unassigned, NOEL 350.1.13.10 [place] [facility] 4.2.7.2.686 [id number] 009 2020-07-05 2020-07-05 Orders Doctor KRISTIE 1.2.840.114 [id number] Univers 00:00:00 00:00:00 Only Unassigned, NOEL 350.1.13.10 ity [place] [facility] 4.2.7.2.686 Robert as [id number] [address] 2020-06-27 2020-06-27 Office [facility] 1.2.840.114 [id number] 13:05:18 13:42:05 Visit Julius Augustin 350.1.13.10 [place] 4.2.7.2.686 Professio [phone] critical access hospital9 [facility] [address] 2020-06-27 2020-06-27 Office [facility] 1.2.840.114 [id number] [facility] 13:05:18 13:42:05 Visit Julius Augustin 350.1.13.10 ity of [place] 4.2.7.2.686 [facility] [phone] Me dical nal 059 [facility] 2020-06-27 2020-06-27 Outpatient [facility] [id number] Univers 13:00:00 13:00:00 CARLOSLESVIA ity o f [facility] 2020-06-22 2020-06-22 [facility]phone [facility] 1.2.578.644 [id number] Univers 00:00:00 00:00:00 Julius Augustin 350.1.13.10 ity of [place] [facility] [phone] De dical nal 059 [facility] 2020-06-02 2020-06-03 Emergency Maxwell Luis Angel [facility] 1.2.840. 114 [id number] Univers 11:32:00 13:07:00 Florian Dyer 350.1.13.10 ity of [place] 4[place].2.[place] [phone] [facility] [address] 2020-05-30 2020-05-30 Transition Yifan Banerjee 1.2.840.114 [id number] Univers 00:00:00 00:00:00 of Care Corie Hou 350.1.13.10 ity of [place] 4.2.7.2.[place] [phone] [facility] [address] 2020-05-23 2020-05-28 Hospital Nii Nigelwilbert Angie 1.2.840.1 14 [id number] Univers 14:23:00 14:45:00 Encounter Tiffanie Mendoza 350.1.13.10 ity of [facility] 4.2.7.2.686 [facility] [phone] Medical CyrRay T 090 [address] [facility] 2020-05-23 2020-05-23 Orders Doctor KRISTIE 1.2.840.114 [id number] Univers 00:00:00 00:00:00 Only Unassigned, NOEL 350.1.13.10 ity [place] [facility] 4.2.7.2.686 Robert as [phone] [facility] [address] 2019-10-31 2019-10-31 [facility] 1.2.840.114 [id number] Univers 13:38:57 16:16:00 Vivian August[address].13[address] [facility] 4.2.7.2.686 [facility] [id number] [address] 2019-10-31 2019-10-31 Emergency Chang YOUNG, [facility] ERT [id number] Univers 13:38:57 16:16:00 VIVIAN ity [facility] 2019-09-21 2019-09-21 Jose G [place]OW[place] 1.2.840.114 [id number] Univers 00:00:00 00:00:00 Management , Naya [facility].13.10 [facility] [place] [id number] 2019-05-09 2019-05-09 Emergency Esvin, [facility] 1.2.343.275 [id number] Univers 17:45:02 22:25:00 Charley Augustin 350.1.13.[address] [facility] 4.2.7.2.686 [facility] [phone] [address] Results Test Description Test Time Test Comments Results Result Comments Source POCT GLUCOSE (AUTOMATED) 2022-07-08 18:51:50 Test Item Value Reference Range Interpretation Comme nts POCT GLU (test code = 2654906519) 78 mg/dL 70-110 Lab Interpretation (test code = 95267-3) [facility]2022-07-08 18:51:50 Test Item Value Reference Range Interpretation Comments POCT GLU (test code = 0562058235) 78 mg/dL 70-110 Lab Interpretation (test code = Normal 20437-1) [place] 92746022-11-14 18:47:28 Test Item Value Reference Range Interpretation Comments APTT Patient (test code See_Comment H [Au tomated message] = 3173-2) The system [employer] generated this result transmitted ref erence range: 26 - 36 Seconds. The reference range was not used to int erpret this result as normal/abnormal . Lab Interpretation (test Abnormal code = 55250-3) [place] 92746022-11-14 18:47:28 Test Item Value Reference Range Interpretation Comments APTT Patient (test code See_Comment H [Au tomated message] = 3173-2) The system [employer] generated this result transmitted ref erence range: 26 - 36 Seconds. The reference range was not used to int erpret this result as normal/abnormal . Lab Interpretation (test Abnormal code = 41553-2) [facility] GLUCOSE (AUTOMATED)2022-07-08 13:56:26 Test Item Value Reference Range Interpretation Comments POCT GLU (test code = 5110482229) 101 mg/dL 70-110 Lab Interpretation (test code = Normal 22763-1) [facility] GLUCOSE (AUTOMATED)2022-07-08 13:56:26 Test Item Value Reference Range Interpretation Comments POCT GLU (test code = 5954741711) 101 mg/dL 70-110 Lab Interpretation (test code = Normal 44078-1) [place] 92746022-11-14 10:59:40 Test Item Value Reference Range Interpretation Comments APTT Patient (test code See_Comment HH [Au tomated message] = 3173-2) The system [employer] generated this result transmitted ref erence range: 26 - 36 Seconds. The reference range was not used to int erpret this result as normal/abnormal . Lab Interpretation (test Abnormal code = 87598-1) [place] 92746022-11-14 10:59:40 Test Item Value Reference Range Interpretation Comments APTT Patient (test code See_Comment HH [Au tomated message] = 3173-2) The system [employer] generated this result transmitted ref erence range: 26 - 36 Seconds. The reference range was not used to int erpret this result as normal/abnormal . Lab Interpretation (test Abnormal code = 98554-6) [facility] GLUCOSE (AUTOMATED)2022-07-08 10:14:27 Test Item Value Reference Range Interpretation Comments POCT GLU (test code = 112 mg/dL 70-110 H Notifi ed Provider [id number]) Lab Interpretation (test Abnormal code = 54141-6) [facility] GLUCOSE (AUTOMATED)2022-07-08 10:14:27 Test Item Value Reference Range Interpretation Comments POCT GLU (test code = 112 mg/dL 70-110 H Notifi ed Provider 8869840286) Lab Interpretation (test Abnormal code = 46197-1) [facility] METABOLIC PANEL (NA, K, CL, CO2, GLUCOSE, BUN, CREATININE, CA)2022-07-08 10:03:15 Test Item Value Reference Range Interpretation Comments NA (test code = 135 mmol/L 135-145 6181334704) K (test code = 4.3 mmol/L 3.5-5.0 2175559479) CL (test code = 104 mmol/L 98-108 8511033224) CO2 TOTAL (test code = 24 mmol/L 23-31 6073880045) AGAP (test code = 2-16 4311889970) BUN (test code = 23 mg/dL 7-23 8213271604) GLUCOSE (test code = 108 mg/dL 70-110 8729621936) CREATININE (test code = 0.80 mg/dL 0.60-1.25 0924522193) CALCIUM (test code = 8.2 mg/dL 8.6-10.6 L 7593652794) eGFR (test code = mL/min/1.73m2 4186509232) ALTAGRACIA (test code = ALTAGRACIA) Association of [...] tests). Lab Interpretation Abnormal (test code = 23015-0) [facility]2022-11-14 10:03:15 Test Item Value Reference Range Interpretation Comments MAGNESIUM (test code = 8694408980) 1.9 mg/dL 1.7-2.4 Lab Interpretation (test code = Normal 37537-3) [facility] Hospital[facility]OSPHORUS2022-11-14 10:03:15 Test Item Value Reference Range Interpretation Comments PHOSPHORUS (test code = 1503779890) 3.6 mg/dL 2.5-5.0 Lab Interpretation (test code = Normal 62014-0) [facility] HospitalBASI METABOLIC PANEL (NA, K, CL, CO2, GLUCOSE, BUN, CREATININE, CA)2022-07-08 10:03:15 Test Item Value Reference Range Interpretation Comments NA (test code = 135 mmol/L 135-145 9153274862) K (test code = 4.3 mmol/L 3.5-5.0 1992986143) CL (test code = 104 mmol/L 98-108 0121961760) CO2 TOTAL (test code = 24 mmol/L 23-31 6015023416) AGAP (test code = 2-16 2708851385) BUN (test code = 23 mg/dL 7-23 3567973549) GLUCOSE (test code = 108 mg/dL 70-110 6261914193) CREATININE (test code = 0.80 mg/dL 0.60-1.25 8920481467) CALCIUM (test code = 8.2 mg/dL 8.6-10.6 L 4495664639) eGFR (test code = mL/min/1.73m2 8389322686) ALTAGRACIA (test code = ALTAGRACIA) Association of [...] tests). Lab Interpretation Abnormal (test code = 79735-9) [facility]UM2022-11-14 10:03:15 Test Item Value Reference Range Interpretation Comments MAGNESIUM (test code = 9306837314) 1.9 mg/dL 1.7-2.4 Lab Interpretation (test code = Normal 13808-5) [facility]2022-11-14 10:03:15 Test Item Value Reference Range Interpretation Comments PHOSPHORUS (test code = 7728589347) 3.6 mg/dL 2.5-5.0 Lab Interpretation (test code = Normal 60063-6) [facility] HospitalCBC Without [id number] 09:52:32 Test Item Value Reference Range Interpretation Comments WBC (test code = See_Comment [Automated message] The 6690-2) system which [employer] nerated this result tra nsmitted reference range : 4.20 - 10.70 10*3/?L. The reference range was not used to interpr et this result as normal/abnormal . RBC (test code = See_Comment [Automated message] The 789-8) system which [employer] nerated this result tra nsmitted reference range [...] See_Comment [Automated message] The 777-3) system which ge nerated this result tra nsmitted reference range : 150 - 328 10*3/?L. Th e reference range was not used to interpr et this result as normal/abnormal . MPV (test code = 10.1 fL 9.8-13.0 60856-7) RDW-CV (test code = 12.4 % 12.1-15.4 788-0) RDW-SD (test code = 40.6 fL 38.5-51.6 79595-2) NRBC x10^3 (test See_Comment [Automated message] The code = 7024515474) system [facility] generated this result tra nsmitted reference range : 10*3/?L. The reference r cristin was not used to int erpret this result as normal/abnormal . NRBC/100 WBC (test See_Comment [Automat ed message] The code = 3824925598) system [facility] generated this result tra nsmitted reference range : 0.0 - 10.0 /100 WBCs. The reference range was not used to interpr et this result as normal/abnormal . IPF % (test code = 0679669964) [facility] Without [id number] 09:52:32 Test Item Value Reference Range Interpretation [...] MPV (test code = 10.1 fL 9.8-13.0 84223-4) RDW-CV (test code = 12.4 % 12.1-15.4 788-0) RDW-SD (test code = 40.6 fL 38.5-51.6 35330-8) NRBC x10^3 (test See_Comment [Automated message] The code = 5569565873) system [facility] generated this result tra nsmitted reference range : 10*3/?L. The reference r cristin was not used to int erpret this result as normal/abnormal . NRBC/100 WBC (test See_Comment [Automat ed message] The code = 7035829438) system [facility] generated this result tra nsmitted reference range : 0.0 - 10.0 /100 WBCs. The reference range was not used to interpr et this result as normal/abnormal . IPF % (test code = 3013825804) [facility] GLUCOSE (AUTOMATED)2022-07-08 02:12:20 Test Item Value Reference Range Interpretation Comments POCT GLU (test code = 135 mg/dL 70-110 H Notifi ed Provider 9485738433) Lab Interpretation (test Abnormal code = 66979-1) [facility] GLUCOSE (AUTOMATED)2022-07-08 02:12:20 Test Item Value Reference Range Interpretation Comments POCT GLU (test code = 135 mg/dL 70-110 H Notifi ed Provider 5978322085) Lab Interpretation (test Abnormal code = 97279-1) [facility] (for use with Heparin Infusion)2022-07-07 23:51:20 Test Item Value Reference Range Interpretation Comments APTT Patient (test code See_Comment H [Au tomated message] = 3173-2) The system [employer] generated this result transmitted ref erence range: 26 - 36 Seconds. The reference range was not used to int erpret this result as normal/abnormal . Lab Interpretation (test Abnormal code = 89073-0) [facility] (for use with Heparin Infusion)2022-07-07 23:51:20 Test Item Value Reference Range Interpretation Comments APTT Patient (test code See_Comment H [Au tomated message] = 3173-2) The system [employer] generated this result transmitted ref erence range: 26 - 36 Seconds. The reference range was not used to int erpret this result as normal/abnormal . Lab Interpretation (test Abnormal code = 59230-4) [facility] GLUCOSE (AUTOMATED)2022-07-07 22:53:01 Test Item Value Reference Range Interpretation Comments POCT GLU (test code = 0223735525) 145 mg/dL 70-110 H Lab Interpretation (test code = Abnormal 96440-5) [facility] GLUCOSE (AUTOMATED)2022-07-07 22:53:01 Test Item Value Reference Range Interpretation Comments POCT GLU (test code = 2246737938) 145 mg/dL 70-110 H Lab Interpretation (test code = Abnormal 94080-8) [facility] HospitalTransthoracic echo (TTE)2022-07-07 21:03:25 Test Item Value Reference Range Interpretation Comments Height (test code = in 9807182605) Weight (test code = lbs 2988074754) Systolic BP (test code mmHg = 0807324185) Diastolic BP (test code mmHg = 3362218746) Heart Rate (test code = bpm 8985246944) IVS (test code = 1.13 cm 3497407111) Interventricular Septum 1.13 cm Diastolic Thickness by 2D (test code = 7259372) LVIDD (test code = 4.00 cm 0240145753) Left Ventricular End 70.8 mL Diastolic Volume by Teichholz Method (test code = 5918651) LVPWD (test code = 1.32 cm 9048242962) PW (test code = 1.32 cm 0.6-1.5 0692085610) EF(Teich) (test code = 57.50 % 7385943829) LVIDS (test code = 2.80 cm 1732030552) Left Ventricular End 30.1 mL Systolic Volume by Teichholz Method (test code = 6250666) FS (test code = 30 % 0822909489) EF - 2D (test code = 57.50 % 35923346) LVOT diameter (test 2.36 cm code = 0058205769) LVOT area (test code = 4.40 cm2 7098766451) Ao root diam (test code 3.50 cm = 4557155257) Aortic root (test code 3.5 cm = 9293081334) Ao root annulus (test 3.5 cm code = 4091383560) LA size (test code = 4.0 cm 5082702628) LAV(MOD-sp4) (test code 57.40 mL = 8324427983) MV Peak E Ankur (test 56.4 cm/s code = 9421714953) MV Peak A Ankur (test 56.4 cm/s code = 1757783721) E/A ratio (test code = ratio 6711379721) MV valve area p 1/2 4.30 cm2 method (test code = 5640494007) MV dec slope (test code 326.30 cm/s2 = 1444850706) MV P1/2t max ankur (test 56.80 cm/s code = 1980855119) MV Prop V (test code = 93.90 cm/s 1190297099) Tapse (test code = 2.8 cm 2904423204) LVOT stroke volume 65.00 cm3 (test code = 5720874588) LVOT peak ankur (test 74.2 cm/s code = 8145001391) LVOT mn grad (test code mmHg = 1373667689) AV LVOT peak gradient mmHg (test code = 2884819731) LVOT peak VTI (test 14.8 cm code = 4800792760) LV V1 mean (test code = 49.70 cm/s 1845846548) Aortic valve mean 56.3 cm/s velocity (test code = 6464579555) Ao peak ankur (test code 89.6 cm/s = 2652193477) Ao VTI (test code = 15.2 cm 0673530771) AV area by cont VTI 4.3 cm2 (test code = 8634000953) AV area peak ankur (test 3.6 cm2 code = 5643461968) Ao max PG (test code = 3.20 mm[Hg] 3835092288) AV peak gradient (test mmHg code = 6631037177) AV valve area (test 4.30 cm2 code = 0220640723) AV mean gradient (test mmHg code = 5863882651) LA volume (BP) (test 55.8 mL code = 8881835688) LAV(MOD-sp2) (test code 51.80 mL = 5632665459) LA Volume Index (BP) 24.2 mL/m2 (test code = 5560240894) BSA (test code = 2.30 m2 9184479678) Radiology Study observation (narrative) (test code = 92754-6) ALTAGRACIA (test code = ALTAGRACIA) ?Left?Ventricle: Left [...] A complete echocardiogram was performed using 2D. [facility] 21:03:25 Test Item Value Reference Range Interpretation Comments Height (test code = in 0311706032) Weight (test code = lbs 5936357966) Systolic BP (test code mmHg = 8256375898) Diastolic BP (test code mmHg = 7325647434) Heart Rate (test code = bpm 4490062453) IVS (test code = 1.13 cm 4575858156) Interventricular Septum 1.13 cm Diastolic Thickness by 2D (test code = 8682264) LVIDD (test code = 4.00 cm 8222892250) Left Ventricular End 70.8 mL Diastolic Volume by Teichholz Method (test code = 8487370) LVPWD (test code = 1.32 cm 0937924374) PW (test code = 1.32 cm 0.6-1.8 8844881679) EF(Teich) (test code = 57.50 % 9757458071) LVIDS (test code = 2.80 cm 7424226967) Left Ventricular End 30.1 mL Systolic Volume by Teichholz Method (test code = 8034425) FS (test code = 30 % 0282853758) EF - 2D (test code = 57.50 % 50546232) LVOT diameter (test 2.36 cm code = 1352082890) LVOT area (test code = 4.40 cm2 3451607778) Ao root diam (test code 3.50 cm = 8503224890) Aortic root (test code 3.5 cm = 7346964023) Ao root annulus (test 3.5 cm code = 1963673203) LA size (test code = 4.0 cm 8394330693) LAV(MOD-sp4) (test code 57.40 mL = 4888620799) MV Peak E Ankur (test 56.4 cm/s code = 3140703164) MV Peak A Ankur (test 56.4 cm/s code = 2335814777) E/A ratio (test code = ratio 4939324710) MV valve area p 1/2 4.30 cm2 method (test code = 3345410739) MV dec slope (test code 326.30 cm/s2 = 1270499130) MV P1/2t max ankur (test 56.80 cm/s code = 5136844167) MV Prop V (test code = 93.90 cm/s 6653274209) Tapse (test code = 2.8 cm 9915373999) LVOT stroke volume 65.00 cm3 (test code = 1229077374) LVOT peak ankur (test 74.2 cm/s code = 6074751671) LVOT mn grad (test code mmHg = 7043974383) AV LVOT peak gradient mmHg (test code = 1337272662) LVOT peak VTI (test 14.8 cm code = 1117261994) LV V1 mean (test code = 49.70 cm/s 2792021501) Aortic valve mean 56.3 cm/s velocity (test code = 7817056282) Ao peak ankur (test code 89.6 cm/s = 9776901528) Ao VTI (test code = 15.2 cm 2755391661) AV area by cont VTI 4.3 cm2 (test code = 7850194644) AV area peak ankur (test 3.6 cm2 code = 7278819434) Ao max PG (test code = 3.20 mm[Hg] 7081624108) AV peak gradient (test mmHg code = 4871141607) AV valve area (test 4.30 cm2 code = 8905135105) AV mean gradient (test mmHg code = 9707655702) LA volume (BP) (test 55.8 mL code = 6747600072) LAV(MOD-sp2) (test code 51.80 mL = 7541472960) LA Volume Index (BP) 24.2 mL/m2 (test code = 5644364371) BSA (test code = 2.30 m2 9227199662) Radiology Study observation (narrative) (test code = 08226-3) ALTAGRACIA (test code = ALTAGRACIA) ?Left?Ventricle: Left [...] complete echocardiogram was performed using 2D. [facility] GLUCOSE (AUTOMATED)2022-07-07 17:35:20 Test Item Value Reference Range Interpretation Comments POCT GLU (test code = 9158018088) 144 mg/dL 70-110 H Lab Interpretation (test code = Abnormal 67977-6) [facility] GLUCOSE (AUTOMATED)2022-07-07 17:35:20 Test Item Value Reference Range Interpretation Comments POCT GLU (test code = 4720014842) 144 mg/dL 70-110 H Lab Interpretation (test code = Abnormal 18949-6) [facility] / [id number] 16:15:33 Test Item Value Reference Range Interpretation Comments PROTIME PATIENT (test See_Comment [Auto mated message] code = 5964-2) The system [employer] generated this result transmitted ref erence range: 10.1 - 1 2.6 Seconds. The re ference range was not u sed to interpret this result as normal/abnor mal. INR (test code = 6301-6) Nor mal INR <1.1; Warfarin Therap eutic range 2.0 to 3. 0 or 2.5 to 3.5, dep ending upon the indica tions. Lab Interpretation (test Normal code = 85673-1) [facility] 16:15:33 Test Item Value Reference Range Interpretation Comments APTT Patient (test code See_Comment H [Au tomated message] = 3173-2) The system [employer] generated this result transmitted ref erence range: 26 - 36 Seconds. The reference range was not used to int erpret this result as normal/abnormal . Lab Interpretation (test Abnormal code = 63257-9) [facility] / [id number] 16:15:33 Test Item Value Reference Range Interpretation Comments PROTIME PATIENT (test See_Comment [Auto mated message] code = 5964-2) The system [employer] generated this result transmitted ref erence range: 10.1 - 1 2.6 Seconds. The re ference range was not u sed to interpret this result as normal/abnor mal. INR (test code = 6301-6) Nor mal INR <1.1; Warfarin Therap eutic range 2.0 to 3. 0 or 2.5 to 3.5, dep ending upon the indica tions. Lab Interpretation (test Normal code = 82055-1) [facility] 16:15:33 Test Item Value Reference Range Interpretation Comments APTT Patient (test code See_Comment H [Au tomated message] = 3173-2) The system [employer] generated this result transmitted ref erence range: 26 - 36 Seconds. The reference range was not used to int erpret this result as normal/abnormal . Lab Interpretation (test Abnormal code = 04157-8) [facility] [id number] 11:09:07 Test Item Value Reference Interpretation Comments Range TROPONIN I (test 0.011 ng/mL See_Comment [Automated code = 9761143851) message] The system which generated this result [...] biotin. Lab Interpretation Normal (test code = 37962-7) [facility] [id number] 11:09:07 Test Item Value Reference Interpretation Comments Range TROPONIN I (test 0.011 ng/mL See_Comment [Automated code = 3552294304) message] The system which generated this result [...] biotin. Lab Interpretation Normal (test code = 24280-2) [facility] METABOLIC PANEL (NA, K, CL, CO2, GLUCOSE, BUN, CREATININE, CA)2022-07-07 10:58:26 Test Item Value Reference Range Interpretation Comments NA (test code = 137 mmol/L 135-145 8636152708) K (test code = 4.2 mmol/L 3.5-5.0 7141057261) CL (test code = 105 mmol/L 98-108 4924533100) CO2 TOTAL (test code = 28 mmol/L 23-31 8175991514) AGAP (test code = 2-16 3773048262) BUN (test code = 26 mg/dL 7-23 H 7260511134) GLUCOSE (test code = 111 mg/dL 70-110 H 4582975383) CREATININE (test code = 0.87 mg/dL 0.60-1.25 0465081465) CALCIUM (test code = 8.4 mg/dL 8.6-10.6 L 2746773238) eGFR (test code = mL/min/1.73m2 6864302047) ALTAGRACIA (test code = ALTAGRACIA) Association of [...] tests). Lab Interpretation Abnormal (test code = 18884-7) [facility]2022-[facility]-13 10:58:26 Test Item Value Reference Range Interpretation Comments MAGNESIUM (test code = 1422699922) 1.8 mg/dL 1.7-2.4 Lab Interpretation (test code = Normal 60684-6) [facility]OS[facility]US2022-11-13 10:58:26 Test Item Value Reference Range Interpretation Comments PHOSPHORUS (test code = 5291884078) 3.8 mg/dL 2.5-5.0 Lab Interpretation (test code = Normal 75016-5) [facility] METABOLIC PANEL (NA, K, CL, CO2, GLUCOSE, BUN, CREATININE, CA)2022-07-07 10:58:26 Test Item Value Reference Range Interpretation Comments NA (test code = 137 mmol/L 135-145 4020974507) K (test code = 4.2 mmol/L 3.5-5.0 8363221493) CL (test code = 105 mmol/L 98-108 8952362870) CO2 TOTAL (test code = 28 mmol/L 23-31 8100570567) AGAP (test code = 2-16 7485637784) BUN (test code = 26 mg/dL 7-23 H 1257736680) GLUCOSE (test code = 111 mg/dL 70-110 H 1269844813) CREATININE (test code = 0.87 mg/dL 0.60-1.25 6915642159) CALCIUM (test code = 8.4 mg/dL 8.6-10.6 L 8425333402) eGFR (test code = mL/min/1.73m2 5914089921) ALTAGRACIA (test code = ALTAGRACIA) Association of [...] tests). Lab Interpretation Abnormal (test code = 38588-9) [facility]2022-[facility]-13 10:58:26 Test Item Value Reference Range Interpretation Comments MAGNESIUM (test code = 1654032720) 1.8 mg/dL 1.7-2.4 Lab Interpretation (test code = Normal 38363-1) [facility]2022-[facility]-13 10:58:26 Test Item Value Reference Range Interpretation Comments PHOSPHORUS (test code = 3638077989) 3.8 mg/dL 2.5-5.0 Lab Interpretation (test code = Normal 35132-0) [facility] WITH [id number] 10:52:43 Test Item Value Reference Range Interpretation Comments WBC (test code = See_Comment [Automated message] 6690-2) The system [employer] generated this result transmitted ref erence range: 4.20 - 1 0.70 10*3/?L. The re ference range was not u sed to interpret this result as normal/abnor mal. RBC (test code = See_Comment [Automated message] 789-8) The system [employer] generated this result transmitted ref erence range: [...] RDW-SD (test code 40.3 fL 38.5-51.6 = 86671-7) RDW-CV (test code 12.3 % 12.1-15.4 = 788-0) PLT (test code = See_Comment [Automated message] 777-3) The system whic h generated this result transmitted ref erence range: 150 - 32 8 10*3/?L. The re ference range was not u sed to interpret this result as normal/abnor mal. MPV (test code = 10.0 fL 9.8-13.0 59032-1) NRBC/100 WBC (test See_Comment [Automat ed message] code = 5105020395) The syste m which generated this result transmitted ref erence range: 0.0 - 10 .0 /100 WBCs. The refer ence range was not u sed to interpret this result as normal/abnor mal. NRBC x10^3 (test See_Comment [Automated message] code = 9982121270) The syste m which generated this result transmitted ref erence range: 10*3/?L. The reference range was not used to interpr et this result as normal/abnormal . GRAN MAT (NEUT) % 56.8 % (test code = 770-8) IMM GRAN % (test 0.30 % code = 5934130975) LYMPH % (test code 29.7 % = 736-9) MONO % (test code 10.7 % = 5905-5) EOS % (test code = 2.0 % 713-8) BASO % (test code 0.5 % = 706-2) GRAN MAT 4.91 10*3/uL 1.99-6.95 x10^3(ANC) (test code = 4928713814) IMM GRAN x10^3 0.03 10*3/uL 0.00-0.06 (test code = 7603700829) LYMPH x10^3 (test 2.56 10*3/uL 1.09-3.23 code = 731-0) MONO x10^3 (test 0.92 10*3/uL 0.36-1.02 code = 742-7) EOS x10^3 (test 0.17 10*3/uL 0.06-0.53 code = 711-2) BASO x10^3 (test 0.04 10*3/uL 0.01-0.09 code = 704-7) [facility] WITH [id number] 10:52:43 Test Item Value Reference Range Interpretation Comments WBC (test code = See_Comment [Automated message] 6690-2) The system [employer] generated this result transmitted ref erence range: 4.20 - 1 0.70 10*3/?L. The re ference range was not u sed to interpret this result as normal/abnor mal. RBC (test code = See_Comment [Automated message] 789-8) The system [employer] generated this result transmitted ref erence range: [...] RDW-SD (test code 40.3 fL 38.5-51.6 = 94952-7) RDW-CV (test code 12.3 % 12.1-15.4 = 788-0) PLT (test code = See_Comment [Automated message] 777-3) The system [employer] generated this result transmitted ref erence range: 150 - 32 8 10*3/?L. The re ference range was not u sed to interpret this result as normal/abnor mal. MPV (test code = 10.0 fL 9.8-13.0 66709-5) NRBC/100 WBC (test See_Comment [Automat ed message] code = 6204944430) The [employer] which generated this result transmitted ref erence range: 0.0 - 10 .0 /100 WBCs. The refer ence range was not u sed to interpret this result as normal/abnor mal. NRBC x10^3 (test See_Comment [Automated message] code = 5252447532) The syste m which generated this result transmitted ref erence range: 10*3/?L. The reference range was not used to interpr et this result as normal/abnormal . GRAN MAT (NEUT) % 56.8 % (test code = 770-8) IMM GRAN % (test 0.30 % code = 2652745007) LYMPH % (test code 29.7 % = 736-9) MONO % (test code 10.7 % = 5905-5) EOS % (test code = 2.0 % 713-8) BASO % (test code 0.5 % = 706-2) GRAN MAT 4.91 10*3/uL 1.99-6.95 x10^3(ANC) (test code = 0603160536) IMM GRAN x10^3 0.03 10*3/uL 0.00-0.06 (test code = 5216505584) LYMPH x10^3 (test 2.56 10*3/uL 1.09-3.23 code = 731-0) MONO x10^3 (test 0.92 10*3/uL 0.36-1.02 code = 742-7) EOS x10^3 (test 0.17 10*3/uL 0.06-0.53 code = 711-2) BASO x10^3 (test 0.04 10*3/uL 0.01-0.09 code = 704-7) [facility] GLUCOSE (AUTOMATED)2022-07-07 03:54:02 Test Item Value Reference Range Interpretation Comments POCT GLU (test code = 1318582504) 74 mg/dL 70-110 Lab Interpretation (test code = Normal 32840-9) [facility] GLUCOSE (AUTOMATED)2022-07-07 03:54:02 Test Item Value Reference Range Interpretation Comments POCT GLU (test code = 3969866216) 74 mg/dL 70-110 Lab Interpretation (test code = Normal 86269-2) [id number] 03:08:06 Test Item Value Reference Interpretation Comments Range TROPONIN I (test 0.008 ng/mL See_Comment [Automated code = 3405582514) message] The system which generated this result [...] biotin. Lab Interpretation Normal (test code = 45550-4) [facility] [id number] 03:08:06 Test Item Value Reference Interpretation Comments Range TROPONIN I (test 0.008 ng/mL See_Comment [Automated code = 9053644068) message] The system which generated this result [...] biotin. Lab Interpretation Normal (test code = 15738-5) [place] [address] [employer] ROUTINE [id number] 23:04:26 Test Item Value Reference Range Interpretation Comments Lab Interpretation (test code = Abnormal 44480-6) [place] [address] [employer] ROUTINE [id number] 23:04:26 Test Item Value Reference Range Interpretation Comments Lab Interpretation (test code = Abnormal 44662-7) [facility]2022-11-12 20:55:00 Test Item Value Reference Interpretation Comments Range D-DIMER (test code = See_Comment [Autom ated 3332569001) message] The system which generated this result [...] diagnosis. Lab Interpretation Normal (test code = 66473-4) [facility]-[id number] 20:55:00 Test Item Value Reference Interpretation Comments Range D-DIMER (test code = See_Comment [Autom ated 8802150922) message] The system which generated this result [...] diagnosis. Lab Interpretation Normal (test code = 57475-2) [facility] [id number] 20:33:08 Test Item Value Reference Interpretation Comments Range TROPONIN I (test 0.008 ng/mL See_Comment [Automated code = 5952797187) message] The system which generated this result [...] biotin. Lab Interpretation Normal (test code = 79370-7) [facility] [id number] 20:33:08 Test Item Value Reference Interpretation Comments Range TROPONIN I (test 0.008 ng/mL See_Comment [Automated code = 1424045476) message] The system which generated this result [...] biotin. Lab Interpretation Normal (test code = 31962-1) [facility]AL [id number] 20:30:07 Test Item Value Reference Range Interpretation Comments NT-proBNP (test code 300 pg/mL See_Comment H [Autom ated = 8656358771) message] The system which generated this result transmitted reference range : <=125. The reference range was not used to interpret this result as normal/abnormal . ALTAGRACIA (test code = ALTAGRACIA) Biotin has been reported to cause a negative bias, interpret results relative to patient's use of biotin. Lab Interpretation Abnormal (test code = 30067-6) [facility] [id number] 20:30:07 Test Item Value Reference Range Interpretation Comments NT-proBNP (test code 300 pg/mL See_Comment H [Autom ated = 2783598638) message] The system which generated this result transmitted reference range : <=125. The reference range was not used to interpret this result as normal/abnormal . ALTAGRACIA (test code = ALTAGRACIA) Biotin has been reported to cause a negative bias, interpret results relative to patient's use of biotin. Lab Interpretation Abnormal (test code = 48773-2) [facility] [id number] 20:26:08 Test Item Value Reference Range Interpretation Comments APTT Patient (test See_Comment [Automat ed code = 3173-2) message] The system which generated this result transmitted reference range : 23 - 38 Seconds . The reference range was not used to interpr et this result as normal/abnormal . ALTAGRACIA (test code = ALTAGRACIA) The [facility] patient population mean normal value for aPTT is 30 seconds. Lab Interpretation Normal (test code = 90107-6) [facility] [id number] 20:26:08 Test Item Value Reference Range Interpretation Comments APTT Patient (test See_Comment [Automat ed code = 3173-2) message] The system which generated this result transmitted reference range : 23 - 38 Seconds . The reference range was not used to interpr et this result as normal/abnormal . ALTAGRACIA (test code = ALTAGRACIA) The [facility] patient population mean normal value for aPTT is 30 seconds. Lab Interpretation Normal (test code = 94794-1) [facility] HospitalPROTHROMBIN TIME / [id number] 20:23:46 Test Item Value Reference Range Interpretation [...] tions. Lab Interpretation (test Normal code = 30033-5) [facility] HospitalPROTHROMBIN TIME / [id number] 20:23:46 Test Item Value Reference Range Interpretation Comments PROTIME PATIENT (test See_Comment [Auto mated message] code = 5964-2) The system [employer] generated this result transmitted ref erence range: 12.0 - 1 4.7 Seconds. The re ference range was not u sed to interpret this result as normal/abnor mal. INR (test code = 6301-6) Nor mal INR <1.1; Warfarin Therap eutic range 2.0 to 3. 0 or 2.5 to 3.5, dep ending upon the indica tions. Lab Interpretation (test Normal code = 30960-4) [facility]20[facility]-12 20:21:28 Test Item Value Reference Range Interpretation Comments MAGNESIUM (test code = 0057231597) 1.7 mg/dL 1.7-2.4 Lab Interpretation (test code = Normal 46194-4) [facility]21[facility]28 Test Item Value Reference Range Interpretation Comments MAGNESIUM (test code = 1180284657) 1.7 mg/dL 1.7-2.4 Lab Interpretation (test code = Normal 81620-0) [facility] HospitalCOMP. METABOLIC PANEL (97569)2022-07-06 20:21:08 Test Item Value Reference Range Interpretation Comments NA (test code = 137 mmol/L 135-145 2833888893) K (test code = 4.6 mmol/L 3.5-5.0 0959980746) CL (test code = 104 mmol/L 98-108 4853672103) CO2 TOTAL (test code = 25 mmol/L 23-31 9645936115) AGAP (test code = 2-16 0664280167) BUN (test code = 34 mg/dL 7-23 H 4729238402) GLUCOSE (test code = 176 mg/dL 70-110 H 8779389332) CREATININE (test code = 1.16 mg/dL 0.60-1.25 5998958223) TOTAL BILI (test code = 0.6 mg/dL 0.1-1.3 0976560256) CALCIUM (test code = 9.3 mg/dL 8.6-10.6 6128402575) T PROTEIN (test code = 6.9 g/dL 6.3-8.2 4299815843) ALBUMIN (test code = 4.3 g/dL 3.5-5.0 5035706885) ALK PHOS (test code = 100 U/L 34-122 3937261021) ALTv (test code = 38 U/L 5-50 2-6) AST(SGOT) (test code = 29 U/L 13-40 5071110499) eGFR (test code = mL/min/1.73m2 5131810998) ALTAGRACIA (test code = ALTAGRACIA) Association of [...] tests). Lab Interpretation Abnormal (test code = 79850-4) [facility] METABOLIC PANEL (79044)2022-07-06 20:21:08 Test Item Value Reference Range Interpretation Comments NA (test code = 137 mmol/L 135-145 4103593708) K (test code = 4.6 mmol/L 3.5-5.0 3098991735) CL (test code = 104 mmol/L 98-108 2640642611) CO2 TOTAL (test code = 25 mmol/L 23-31 4256385458) AGAP (test code = 2-16 3786700186) BUN (test code = 34 mg/dL 7-23 H 5119961741) GLUCOSE (test code = 176 mg/dL 70-110 H 2579495443) CREATININE (test code = 1.16 mg/dL 0.60-1.25 9362648807) TOTAL BILI (test code = 0.6 mg/dL 0.1-1.0 1339073792) CALCIUM (test code = 9.3 mg/dL 8.6-10.6 2881272763) T PROTEIN (test code = 6.9 g/dL 6.3-8.2 0555472098) ALBUMIN (test code = 4.3 g/dL 3.5-5.0 7589841119) ALK PHOS (test code = 100 U/L 34-122 4559888898) ALTv (test code = 38 U/L 5-50 1742-6) AST(SGOT) (test code = 29 U/L 13-40 5061688380) eGFR (test code = mL/min/1.73m2 0857633047) ALTAGRACIA (test code = ALTAGRACIA) Association of [...] tests). Lab Interpretation Abnormal (test code = 30670-8) [facility] 20:21:07 Test Item Value Reference Range Interpretation Comments LIPASE (test code = 8342550800) 146 U/L 0-220 Lab Interpretation (test code = Normal 28479-3) [facility] 20:21:07 Test Item Value Reference Range Interpretation Comments LIPASE (test code = 3026885416) 146 U/L 0-220 Lab Interpretation (test code = Normal 50850-5) [facility] HospitalGLYCOSYLATED HEMOGLOBIN (A1C)2022-07-06 20:19:57 Test Item Value Reference Range Interpretation Comments HGB A1C (test code = 7.0 % 4.0-5.7 H 4548-4) ALTAGRACIA (test code = ALTAGRACIA) Reference RangesNormal: <5.7%Prediabetes: 5.7 - 6.4%Diabetes: > 6.5% Lab Interpretation (test Abnormal code = 66274-0) [facility] HospitalGLYCOSYLATED HEMOGLOBIN (A1C)2022-07-06 20:19:57 Test Item Value Reference Range Interpretation Comments HGB A1C (test code = 7.0 % 4.0-5.7 H 4548-4) ALTAGRACIA (test code = ALTAGRACIA) Reference RangesNormal: <5.7%Prediabetes: 5.7 - 6.4%Diabetes: > 6.5% Lab Interpretation (test Abnormal code = 08675-4) [facility] WITH [id number] 20:07:43 Test Item Value Reference Range Interpretation [...] RDW-SD (test code = 40.3 fL 38.5-51.6 68095-9) RDW-CV (test code = 12.3 % 12.1-15.4 788-0) PLT (test code = See_Comment [Automated 777-3) message] The sy stem which generated this result transmitted reference range : 150 - 328 10*3/ ?L. The reference r cristin was not used to interpret this result as normal/abnormal . MPV (test code = 10.5 fL 9.8-13.0 28839-3) NRBC/100 WBC (test See_Comment [Automat ed code = 5012541325) message] The system which generated this result transmitted reference range : 0.0 - 10.0 /100 WBCs. The refer ence range was not u sed to interpret th is result as normal/abnormal . NRBC x10^3 (test code See_Comment [Auto mated = 5924535266) message] The s ystem which generated this result transmitted reference range : 10*3/?L. The reference range was not used to interpret this result as normal/abnormal . GRAN MAT (NEUT) % 61.5 % (test code = 770-8) IMM GRAN % (test code 0.30 % = 3484948609) LYMPH % (test code = 25.7 % 736-9) MONO % (test code = 10.5 % 5905-5) EOS % (test code = 1.5 % 713-8) BASO % (test code = 0.5 % 706-2) GRAN MAT x10^3(ANC) 6.69 10*3/uL 1.99-6.95 (test code = 1943526060) IMM GRAN x10^3 (test 0.03 10*3/uL 0.00-0.06 code = 4045458866) LYMPH x10^3 (test code 2.79 10*3/uL 1.09-3.23 = 731-0) MONO x10^3 (test code 1.14 10*3/uL 0.36-1.02 H = 742-7) EOS x10^3 (test code = 0.16 10*3/uL 0.06-0.53 711-2) BASO x10^3 (test code 0.05 10*3/uL 0.01-0.09 = 704-7) Lab Interpretation Abnormal (test code = 69581-5) [facility] WITH [id number] 20:07:43 Test Item Value Reference Range Interpretation Comments WBC (test code = See_Comment H [Automated 1590-2) message] The sy stem which generated this result transmitted reference range : 4.20 - 10.70 10*3/?L. The reference range was not used to interpret this result as normal/abnormal . RBC (test code = See_Comment [Automated 799-8) message] The sy stem which generated this [...] RDW-SD (test code = 40.3 fL 38.5-51.6 22429-0) RDW-CV (test code = 12.3 % 12.1-15.4 788-0) PLT (test code = See_Comment [Automated 777-3) message] The sy stem which generated this result transmitted reference range : 150 - 328 10*3/ ?L. The reference r cristin was not used to interpret this result as normal/abnormal . MPV (test code = 10.5 fL 9.8-13.0 53326-8) NRBC/100 WBC (test See_Comment [Automat ed code = 9403721002) message] The system which generated this result transmitted reference range : 0.0 - 10.0 /100 WBCs. The refer ence range was not u sed to interpret th is result as normal/abnormal . NRBC x10^3 (test code See_Comment [Auto mated = [id number]) message] The s ystem which generated this result transmitted reference range : 10*3/?L. The reference range was not used to interpret this result as normal/abnormal . GRAN MAT (NEUT) % 61.5 % (test code = 770-8) IMM GRAN % (test code 0.30 % = 0153379390) LYMPH % (test code = 25.7 % 736-9) MONO % (test code = 10.5 % 5905-5) EOS % (test code = 1.5 % 713-8) BASO % (test code = 0.5 % 706-2) GRAN MAT x10^3(ANC) 6.69 10*3/uL 1.99-6.95 (test code = 3807414585) IMM GRAN x10^3 (test 0.03 10*3/uL 0.00-0.06 code = 5863937436) LYMPH x10^3 (test code 2.79 10*3/uL 1.09-3.23 = 731-0) MONO x10^3 (test code 1.14 10*3/uL 0.36-1.02 H = 742-7) EOS x10^3 (test code = 0.16 10*3/uL 0.06-0.53 711-2) BASO x10^3 (test code 0.05 10*3/uL 0.01-0.09 = 704-7) Lab Interpretation Abnormal (test code = 39230-8) [facility]
[2023-05-15 12:11] LABS: Absolute Lymphocytes (CBC) 1.8 K/uL (0.7-4.9); Hematocrit 41.6 % (39.6-49.0); Lymphocytes % 14.2 % (15.3-44.8); MCV 90.2 fL (80-100); MPV 8.4 fL (7.6-11.3); Platelets 284 thou/uL (152-406); RBC Red Blood Cell Count 4.62 M/uL (4.33-5.43)
[2023-05-15 12:32] LABS: Albumin 3.6 g/dL (3.4-5.0); Bilirubin Direct 0.2 mg/dL (0-0.2); Bilirubin Indirect, Calculated 0.5 mg/dL (0.2-0.8); Bilirubin Total 0.7 mg/dL (0.2-1.0); Potassium 4.1 mEq/L (3.5-5.1); Protein, Total 7.1 g/dL (6.4-8.2); Troponin High Sensitivity 13.7 pg/mL (<58.9)
--- NOTE | 2023-05-15 12:46 | RAD REPORT ---
EXAM DESCRIPTION: RAD - Chest Single View - 05/15/2023 12:30 pm CLINICAL HISTORY: CHEST PAIN Chest pain. COMPARISON: <Comparisons> FINDINGS: Portable technique limits examination quality. The lungs are grossly clear. The heart is upper limit of normal in size. No displaced fractures. IMPRESSION: No acute intrathoracic process suspected.
[2023-05-15 12:51] LABS: Protime INR 1.12
--- NOTE | 2023-05-15 13:25 | RAD REPORT ---
EXAM DESCRIPTION: CT - Chest For Pe Angio - 05/15/2023 12:37 pm CLINICAL HISTORY: Recent covid;Chest pain;Cough COMPARISON: Chest For Pe Angio dated 03/29/2023; Chest Angio dated 07/15/2020; Chest For Pe Angio date d 06/18/2018; Chest For Pe Angio dated 08/01/2017; Chest Single View dated 05/15/2023 TECHNIQUE: Thin axial CT images of the chest were obtained following administration of 100 mL Isovue 370 IV contrast. Multiplanar reconstructions, and maximum intensity projection reconstructions were generated and reviewed. Exam utilizes a protocol for optimal evaluation of pulmonary arterial tree. All CT scans are performed using dose optimization technique as appropriate and may include automated exposure control or mA/KV adjustment according to patient size. FINDINGS: Pulmonary arteries are normal. No emboli or other suspicious finding. No acute or signific ant aorta findings. No mass or infiltrate in the lung parenchyma. No pleural thickening or pleural effusion. No pneumotho rax. No abnormal mediastinal or hilar masses or lymphadenopathy seen. No chest wall mass or abnormal axill iary lymphadenopathy. Stable degenerative changes of the thoracic spine. IMPRESSION: No evidence of acute central pulmonary emboli. No other acute pulmonary process.
--- NOTE | 2023-05-15 15:05 | ER ---
Nurse's Notes [facility] Name: Brett Kramer Age: 42 yrs Sex: Male : 1980 Arrival Date: 05/15/2023 Time: 11:07 Bed 9 Private MD: Diagnosis: Chest pain, unspecified;Cough;Diabetes mellitus due to underlying condition with hyperglycemia Presentation: 05/15 11:15 Chief complaint: Patient states: Diabetic medication changes made recently. COVID three ld1 weeks ago. SOB since 0830 this morning. Coronavirus screen: At this time, the client does not indicate any symptoms associated with coronavirus-19. Ebola Screen: No symptoms or risks identified at this time. Initial Sepsis Screen: Does the patient meet any 2 criteria? No. Patient's initial sepsis screen is negative. Does the patient have a suspected source of infection? No. Patient's initial sepsis screen is negative. Risk Assessment: Do you want to hurt yourself or someone else? Patient reports no desire to harm self or others. Onset of symptoms was May 15, 2023. 11:15 Method Of Arrival: Ambulatory ld1 11:15 Acuity: CLAIRE 3 ld1 Triage Assessment: 11:16 General: Appears in no apparent distress. comfortable, Behavior is calm, cooperative, ld1 appropriate for age. Pain: Complains of pain in chest Pain does not radiate. Pain currently is 8 out of 10 on a pain scale. Quality of pain is described as throbbing. EENT: No signs and/or symptoms were reported regarding the EENT system. Neuro: Level of Consciousness is awake, alert, obeys commands, Oriented to person, place, time, situation. Cardiovascular: Capillary refill < 3 seconds Patient's skin is warm and dry. Respiratory: Airway is patent Respiratory effort is even, unlabored. GI: Abdomen is round non-distended. : No signs and/or symptoms were reported regarding the genitourinary system. Derm: No signs and/or symptoms reported regarding the dermatologic system. Musculoskeletal: No signs and/or symptoms reported regarding the musculoskeletal system. Historical: - Allergies: 11:16 No Known Allergies; ld1 - PMHx: 11:16 Diabetes - NIDDM; Hypertension; PE; ld1 - PSHx: 11:16 Heart Stents; ld1 - Immunization history:: Adult Immunizations up to date. - Social history:: Smoking status: Patient denies any tobacco usage or history of. Patient/guardian denies using alcohol. Screenin:32 [facility] ED Fall Risk Assessment (Adult) History of falling in the last 3 months, cm10 including since admission No falls in past 3 months (0 pts) Confusion or Disorientation No (0 pts) Intoxicated or Sedated No (0 pts) Impaired Gait No (0 pts) Mobility Assist Device Used No (0 pt) Altered Elimination No (0 pt) Score/Fall Risk Level 0 - 2 = Low Risk Oriented to surroundings, Maintained a safe environment, Hourly rounding (assess needs \T\ fall precautionary measures) done. Abuse screen: Denies threats or abuse. Denies injuries from another. Nutritional screening: No deficits noted. Tuberculosis screening: No symptoms or risk factors identified. Assessment: 12:31 General: Appears in no apparent distress. comfortable, Behavior is calm, cooperative. cm10 Neuro: No deficits noted. Level of Consciousness is awake, alert, obeys commands, Oriented to person, place, time, situation. Cardiovascular: Rhythm is sinus rhythm. Respiratory: No deficits noted. Airway is patent Respiratory effort is even, unlabored, Respiratory pattern is regular, symmetrical. Derm: No deficits noted. Skin is intact, Skin is pink, warm \T\ dry. 14:16 Reassessment: No changes from previously documented assessment. Patient and/or family ld1 updated on plan of care and expected duration. Pain level reassessed. Vital Signs: 11:15 Pulse 85; Resp 18; Temp 97.5(O); Pulse Ox 98% on R/A; Weight 114.31 kg; Height 5 ft. 8 ld1 in. ; Pain 7/10; 11:17 BP 163 / 96; ld1 13:00 BP 148 / 87; Pulse 83; Resp 16; Pulse Ox 99% ; ld1 13:30 BP 147 / 86; Pulse 76; Resp 18; Pulse Ox 99% ; ld1 14:00 BP 153 / 92; Pulse 77; Resp 18; Pulse Ox 99% ; ld1 15:00 BP 147 / 95; Resp 18; Pulse Ox 98% ; ld1 15:30 BP 158 / 92; Resp 18; Pulse Ox 100% ; ld1 11:15 Body Mass Index 38.32 (114.31 kg, 172.72 cm) ld1 11:15 Pain Scale: Adult ld1 ED Course: 11:14 Patient arrived in ED. ld1 11:16 Triage completed. ld1 11:16 Jose Rafael Mosqueda MD is Attending Physician. rt 11:16 Arm band placed on right wrist. ld1 11:18 Flora Odonnell FNP-C is PHCP. snw 11:50 Initial lab(s) drawn, by me, sent to lab. EKG done, by ED staff, reviewed by Flora BHAGAT. Inserted saline lock: 22 gauge in left antecubital area, using aseptic technique. Blood collected. 12:30 XRAY Chest (1 view) In Process Unspecified. EDMS 12:31 Lexi Kramer, RN is Primary Nurse. cm10 12:32 Patient has correct armband on for positive identification. Bed in low position. Call cm10 light in reach. Side rails up X 1. Provided Education on: ED process and procedures.. Client placed on continuous cardiac and pulse oximetry monitoring. NIBP monitoring applied. Door closed. Lights dimmed. 12:39 CT Chest For PE Angio In Process Unspecified. EDMS 14:34 Troponin High Sensitivity: at 1400 Sent. cm10 15:52 No provider procedures requiring assistance completed. IV discontinued, intact, ld1 bleeding controlled, No redness/swelling at site. Pressure dressing applied. Administered Medications: No medications were administered Medication: 12:32 VIS not applicable for this client. cm10 Outcome: 15:05 Discharge ordered by . snw 15:52 Discharged to home ambulatory, ld1 15:52 Condition: good 15:52 Discharge instructions given to patient, Instructed on discharge instructions, follow up and referral plans. medication usage, Demonstrated understanding of instructions, follow-up care, medications, Prescriptions given X 1, 15:53 Patient left the ED. ld1 Signatures: Dispatcher [employer] EDMS Flora Odonnell FNP-C BASIN OPERATOR-CsnDiana Roberts kj1 Judy Lambert, KRISTINE RN ld1 Jose Rafael Mosqueda MD MD rt Lexi Kramer, KRISTINE RN cm10
--- NOTE | 2023-05-15 15:05 | EDPHYS ---
Physician Documentation [facility] Name: Brett Kramer Age: 42 yrs Sex: Male : 1980 Arrival Date: 05/15/2023 Time: 11:07 Bed 9 Private MD: ED Physician Jose Rafael Mosqueda HPI: 05/15 11:32 This 42 yrs old Male presents to ER via Ambulatory with complaints of high snw blood sugar, cough, chest pain. 11:32 The patient or guardian reports chest pain that is located primarily in the anterior snw chest wall. Onset: pain intermittent and then became more consistent over the past three weeks. Pt dx with CoVid at that time. Pt is having insurance problems with Tresiba, changed to metformin and glipizide. Blood sugar has not been controlled. . The pain does not radiate. Associated signs and symptoms: Pertinent positives: cough, chest pain. The chest pain is described as a pressure, sharp. Duration: The patient or guardian reports multiple episodes. Severity of pain: At its worst the pain was moderate severe a 7 / 10. The patient has experienced similar episodes in the past. sees Dr. Brandt. Historical: - Allergies: 11:16 No Known Allergies; ld1 - PMHx: 11:16 Diabetes - NIDDM; Hypertension; PE; ld1 - PSHx: 11:16 Heart Stents; ld1 - Immunization history:: Adult Immunizations up to date. - Social history:: Smoking status: Patient denies any tobacco usage or history of. Patient/guardian denies using alcohol. ROS: 11:34 Constitutional: Negative for fever, chills, and weight loss, Eyes: Negative for injury, snw pain, redness, and discharge, ENT: Negative for injury, pain, and discharge, Neck: Negative for injury, pain, and swelling, 11:34 Abdomen/GI: Negative for abdominal pain, nausea, vomiting, diarrhea, and constipation, Back: Negative for injury and pain, : Negative for injury, bleeding, discharge, and swelling, MS/Extremity: Negative for injury and deformity, Skin: Negative for injury, rash, and discoloration, Neuro: Negative for headache, weakness, numbness, tingling, and seizure, Psych: Negative for depression, anxiety, suicide ideation, homicidal ideation, and hallucinations, 11:34 Cardiovascular: Positive for chest pain, 11:34 Respiratory: Positive for cough, Exam: 11:31 Constitutional: This is a well developed, well nourished patient who is awake, alert, snw and in no acute distress. Head/Face: Normocephalic, atraumatic. Eyes: Pupils equal round and reactive to light, extra-ocular motions intact. Lids and lashes normal. Conjunctiva and sclera are non-icteric and not injected. Cornea within normal limits. Periorbital areas with no swelling, redness, or edema. ENT: Nares patent. No nasal discharge, no septal abnormalities noted. Tympanic membranes are normal and external auditory canals are clear. Oropharynx with no redness, swelling, or masses, exudates, or evidence of obstruction, uvula midline. Mucous membranes moist. Neck: Trachea midline, no thyromegaly or masses palpated, and no cervical lymphadenopathy. Supple, full range of motion without nuchal rigidity, or vertebral point tenderness. No Meningismus. Chest/axilla: Normal chest wall appearance and motion. Nontender with no deformity. No lesions are appreciated. Cardiovascular: Regular rate and rhythm with a normal S1 and S2. No gallops, murmurs, or rubs. Normal PMI, no JVD. No pulse deficits. Abdomen/GI: Soft, non-tender, with normal bowel sounds. No distension or tympany. No guarding or rebound. No evidence of tenderness throughout. Back: No spinal tenderness. No costovertebral tenderness. Full range of motion. Skin: Warm, dry with normal turgor. Normal color with no rashes, no lesions, and no evidence of cellulitis. MS/ Extremity: Pulses equal, no cyanosis. Neurovascular intact. Full, normal range of motion. Neuro: Awake and alert, GCS 15, oriented to person, place, time, and situation. Cranial nerves II-XII grossly intact. Motor strength 5/5 in all extremities. Sensory grossly intact. Cerebellar exam normal. Normal gait. Psych: Awake, alert, with orientation to person, place and time. Behavior, mood, and affect are within normal limits. 11:31 Respiratory: the patient does not display signs of respiratory distress, Respirations: normal, Breath sounds: persistent cough, Vital Signs: 11:15 Pulse 85; Resp 18; Temp 97.5(O); Pulse Ox 98% on R/A; Weight 114.31 kg; Height 5 ft. 8 ld1 in. ; Pain 7/10; 11:17 BP 163 / 96; ld1 13:00 BP 148 / 87; Pulse 83; Resp 16; Pulse Ox 99% ; ld1 13:30 BP 147 / 86; Pulse 76; Resp 18; Pulse Ox 99% ; ld1 14:00 BP 153 / 92; Pulse 77; Resp 18; Pulse Ox 99% ; ld1 15:00 BP 147 / 95; Resp 18; Pulse Ox 98% ; ld1 15:30 BP 158 / 92; Resp 18; Pulse Ox 100% ; ld1 11:15 Body Mass Index 38.32 (114.31 kg, 172.72 cm) ld1 11:15 Pain Scale: Adult ld1 MDM: 11:21 Patient medically screened. snw 11:35 Data reviewed: vital signs, nurses notes. snw 15:08 Differential diagnosis: abnormal EKG, acute myocardial infarction, pulmonary embolus, snw stable angina, unstable angina. The patient was not given aspirin in the Emergency Department. Patient reports taking aspirin within the past 24 hours. Counseling: I had a detailed discussion with the patient and/or guardian regarding the historical points, exam findings, and any diagnostic results supporting the discharge/admit diagnosis, the presence of at least one elevated blood pressure reading (>120/80) during this emergency department visit, lab results, radiology results, the need for outpatient follow up, for definitive care, a senior sales manager, a family practitioner, to return to the emergency department if symptoms worsen or persist or if there are any questions or concerns that arise at home. Response to treatment: the patient's symptoms have markedly improved after treatment. Special discussion: Based on the patient's history, exam, and Dx evaluation, there is no indication for emergent intervention or inpatient Tx. It is understood by the patient/guardian that if the Sx's persist or worsen they need to return immediately for re-evaluation. Based on the history and exam findings, there is no indication for further emergent testing or inpatient evaluation. I discussed with the patient/guardian the need to see the senior sales manager for further evaluation of the symptoms. I discussed with the patient/guardian the need to see the primary care provider for further evaluation of the symptoms. ED course: discussed with pt need for rule out as hx significant for angina, stent placement, PE. Studies negative, pt feeling better, will f/u PCP tomorrow. . 05/15 11:20 Order name: Basic Metabolic Panel; Complete Time: 12:35 w 05/15 11:20 Order name: CBC with Diff; Complete Time: 12:14 05/15 11:20 Order name: LFT's; Complete Time: 12:35 w 05/15 11:20 Order name: Magnesium; Complete Time: 12:35 w 05/15 11:20 Order name: NT PRO-BNP; Complete Time: 12:35 05/15 11:20 Order name: PT-INR; Complete Time: 12:55 05/15 11:20 Order name: Troponin HS; Complete Time: 12:35 05/15 13:41 Order name: Troponin High Sensitivity: at 1400; Complete Time: 15:04 05/15 11:20 Order name: XRAY Chest (1 view); Complete Time: 12:55 05/15 11:20 Order name: CT Chest For PE Angio; Complete Time: 13:39 05/15 11:20 Order name: EKG; Complete Time: 11:20 05/15 13:41 Order name: EKG: at 1400; Complete Time: 13:41 05/15 11:20 Order name: Cardiac monitoring; Complete Time: 12:31 05/15 11:20 Order name: EKG - Nurse/Tech; Complete Time: 12:04 05/15 11:20 Order name: IV Saline Lock; Complete Time: 12:04 05/15 11:20 Order name: Labs collected and sent; Complete Time: 12:04 05/15 11:20 Order name: O2 Per Protocol; Complete Time: 12:12 05/15 11:20 Order name: O2 Sat Monitoring; Complete Time: 12:13 05/15 11:20 Order name: FSBS; Complete Time: 12:12 05/15 13:40 Order name: Misc. Order: please document home med list; Complete Time: 15:36 05/15 13:41 Order name: EKG - Nurse/Tech; Complete Time: 14:34 05/15 15:04 Order name: PO challenge; Complete Time: 15:21 snw EC:55 Rate is 82 beats/min. Rhythm is regular. QRS interval is prolonged. Clinical snw impression: NSR w/ Non-specific ST/T Changes. 15:08 Rate is 76 beats/min. Rhythm is regular. QRS interval is prolonged. Q waves are Present snw in leads V1, V2. Clinical impression: NSR w/ Non-specific ST/T Changes. Administered Medications: No medications were administered Disposition: 19:48 Co-signature as Attending Physician, Jose Rafael Mosqueda MD I reviewed the patient's care rt provided by the Advanced Practice Provider and agree with the diagnosis and treatment plan. Disposition Summary: 05/15/23 15:05 Discharge Ordered Notes: Location: Home snw Condition: Stable snw Diagnosis - Chest pain, unspecified snw - Cough snw - Diabetes mellitus due to underlying condition with hyperglycemia snw Followup: snw - With: Emergency Department - When: As needed - Reason: Worsening of condition Followup: snw - With: Private Physician - When: Tomorrow - Reason: Recheck today's complaints, Continuance of care, Re-evaluation by your physician Discharge Instructions: - Discharge Summary Sheet snw - Nonspecific Chest Pain, Adult snw - Food Choices for Gastroesophageal Reflux Disease, Adult snw - Gastroesophageal Reflux Disease, Adult snw - Hypertension, Adult snw - How to Take Your Blood Pressure, [id number] snw - Aspirin and Your Heart snw - Form - Blood Pressure Record Sheet snw Forms: - Work release form snw - Medication Reconciliation Form snw - Thank You Letter snw - Antibiotic Education snw - Prescription Opioid Use snw - Patient Portal Instructions snw - Leadership Thank You Letter snw Prescriptions: - Protonix 40 mg Oral Tablet - take 1 tablet ORAL route once daily; 30 tablet; Refills: 0, Product Selection snw Permitted Signatures: Dispatcher [employer] EDFlora Maciel FNP-Darrian SUPERVISOR [employer]-Csnw Judy Lambert RN RN ld1 Jose Rafael Mosqueda MD MD rt
[2023-05-15 17:13] VITALS: TEMP 97.5
[2023-05-15 18:16] VITALS: BP 158/92; O2SAT 100
--- NOTE | 2023-05-16 17:12 | EKG ---
Test Date: 2023-05-15 Test Time: 14:26:27 Guest Experience Captain: LENORE MEASUREMENT RESULTS: Intervals: Rate: 76 ND: 188 QRSD: 152 QT: 458 QTc: 515 [place]: P: 35 ND: 188 QRS: 170 T: 58 INTERPRETIVE STATEMENTS: Normal sinus rhythm Right bundle branch block Septal infarct, age undetermined Abnormal ECG Compared to ECG 01/06/2022 02:46:34 Right bundle-branch block now present Myocardial infarct finding now present Left posterior fascicular block no longer present ST (T wave) deviation no longer present Possible ischemia no longer present Prolonged QT interval no longer present Electronically Signed On 05-16-23 17:11:06 CDT by Dario Orosco
--- NOTE | 2023-05-16 17:14 | EKG ---
Test Date: 2023-05-15 Test Time: 11:51:47 Stock Shipper: ELE MEASUREMENT RESULTS: Intervals: Rate: 82 KS: 180 QRSD: 148 QT: 430 QTc: 502 [place]: P: 50 KS: 180 QRS: 141 T: 77 INTERPRETIVE STATEMENTS: Normal sinus rhythm Right bundle branch block Septal infarct, age undetermined Abnormal ECG Compared to ECG 01/06/2022 02:46:34 Right bundle-branch block now present Myocardial infarct finding now present Left posterior fascicular block no longer present ST (T wave) deviation no longer present Possible ischemia no longer present Prolonged QT interval no longer present Electronically Signed On 05-16-23 17:11:20 CDT by Dario Orosco
== END 2023-05-15 15:53 | disposition home or self-care (01) ==
LOC: ER 11:07
DX: R07.89 Other chest pain (principal); R05.9 Cough, unspecified; E11.65 Type 2 diabetes mellitus with hyperglycemia; I10 Essential (primary) hypertension; Z95.818 Presence of other cardiac implants and grafts
CPT/HCPCS: 93005 ×2; 85025; 80048; 36415; 83735; 85610; 80076; 84484 ×2; 83880; 71275; 71045; 99284; Q9967

== ENCOUNTER → 2023-11-06 | Emergency (ER) | payer OTHER ==
[~2023-11-06] MED LIST: LIDOCAINE 1% 20 ML MDV ONE
--- NOTE | 2023-11-06 13:18 | ER ---
Nurse's Notes [facility] Name: Brett Kramer Age: 43 yrs Sex: Male : 1980 Arrival Date: 11/06/2023 Time: 11:20 Bed 12 Private MD: Price Brandt Diagnosis: Paronychia Presentation: 11/05 11:30 Chief complaint: Patient states: abscess to right thumb X 2 days. Coronavirus screen: iw At this time, the client does not indicate any symptoms associated with coronavirus-19. Ebola Screen: Patient negative for fever greater than or equal to 101.5 degrees Fahrenheit, and additional compatible Ebola Virus Disease symptoms Patient denies exposure to infectious person. Patient denies travel to an Ebola-affected area in the 21 days before illness onset. No symptoms or risks identified at this time. 11:30 Method Of Arrival: Ambulatory iw 11:30 Initial Sepsis Screen: Does the patient meet any 2 criteria? No. Patient's initial iw sepsis screen is negative. Does the patient have a suspected source of infection? No. Patient's initial sepsis screen is negative. Risk Assessment: Do you want to hurt yourself or someone else? Patient reports no desire to harm self or others. Onset of symptoms was November 04, 2023. 11:30 Acuity: CLAIRE 4 iw Triage Assessment: 11:33 General: Appears in no apparent distress. Behavior is calm, cooperative. Pain: iw Complains of pain in dorsal aspect of distal phalanx of left thumb. Historical: - Allergies: 11:31 No Known Allergies; iw - PMHx: 11:31 Diabetes - NIDDM; Hypertension; PE; iw - PSHx: 11:31 Heart Stents; iw - Immunization history:: Last tetanus immunization: < 10 years ago. - Social history:: Smoking status: Patient/guardian denies using tobacco. Screenin:49 [facility] ED Fall Risk Assessment (Adult) History of falling in the last 3 months, ko1 including since admission Confusion or Disorientation No (0 pts) Intoxicated or Sedated No (0 pts) Impaired Gait No (0 pts) Mobility Assist Device Used No (0 pt) Altered Elimination No (0 pt) Score/Fall Risk Level 0 - 2 = Low Risk Oriented to surroundings, Maintained a safe environment, Educated pt \T\ family on fall prevention, incl call for assistance when getting out of bed, Assessed \T\ reinforced patient's understanding of fall precautions. Abuse screen: Denies threats or abuse. Denies injuries from another. Nutritional screening: No deficits noted. Tuberculosis screening: No symptoms or risk factors identified. Assessment: 12:49 General: Appears in no apparent distress. Behavior is calm, cooperative, appropriate ko1 for age. Pain: Complains of pain in dorsal aspect of distal phalanx of left thumb. Neuro: No deficits noted. Cardiovascular: No deficits noted. Respiratory: No deficits noted. GI: No deficits noted. : No deficits noted. EENT: No deficits noted. Derm: Abscess located on dorsal aspect of proximal phalanx of right thumb. Musculoskeletal: Reports pain in dorsal aspect of proximal phalanx of right thumb. Vital Signs: 11:32 BP 156 / 104; Pulse 92; Resp 16; Temp 98.2; Pulse Ox 99% on R/A; Weight 127.91 kg; iw Height 5 ft. 9 in. ; Pain 8/10; 13:28 BP 150 / 98; Pulse 92; Resp 15; Temp 97; Pulse Ox 99% ; ko1 11:32 Body Mass Index 41.64 (127.91 kg, 175.26 cm) iw 11:32 Pain Scale: Adult iw ED Course: 11:22 Patient arrived in ED. mr 11:22 Price Brandt DO is Private Physician. mr 11:24 Alex Lovelace MD is Attending Physician. ec2 11:30 Triage completed. iw 11:32 Arm band placed on. iw 12:47 Eden Vines, KRISTINE is Primary Nurse. ko1 13:28 Patient has correct armband on for positive identification. Bed in low position. Call ko1 light in reach. Provided Education on: WOUND CARE. Pulse ox on. NIBP on. Door closed. Noise minimized. 13:28 No provider procedures requiring assistance completed. Patient did not have IV access ko1 during this emergency room visit. Dressings: non-adherent dressing x 1 dorsal aspect of proximal phalanx of right thumb Vaseline gauze X 1; dorsal aspect of proximal phalanx of right thumb. 13:28 Wound care: to abscess located on dorsal aspect of proximal phalanx of right thumb was ko1 cleaned with Betadine, dressed with Neosporin, Patient tolerated well. Administered Medications: 12:47 Drug: Lidocaine Infiltration (1 %) 10 ml 20 ml Infiltration once; to bedside {Note: by ko1 Dr Lovelace.} Volume: 20 ml; Route: Infiltration; Medication: 12:49 VIS not applicable for this client. ko1 Outcome: 13:18 Discharge ordered by . ec2 13:28 Discharged to home ambulatory, ko1 13:28 Condition: stable 13:28 Discharge instructions given to patient, Instructed on discharge instructions, follow up and referral plans. medication usage, wound care, Demonstrated understanding of instructions, follow-up care, medications, wound care, Prescriptions given X 1, 13:33 Patient left the ED. ko1 Signatures: Jennie Gerber, Reg Reg mr Jojo Hale, RN RN iw Eden Vines RN RN ko1 Radu, MD LUZ Johnson ec2 Corrections: (The following items were deleted from the chart) 11:33 11:32 Resp 16bpm; Pulse Ox 99% RA; Temp 98.2F; 127.91 kg; Height 5 ft. 9 in.; BMI: iw 41.6; Pain 8/10, Adult; iw 13:31 12:49 Derm: Abscess located on right arm and dorsal aspect of distal phalanx of left ko1 thumb ko1 13:31 12:49 Musculoskeletal: Reports pain in dorsal aspect of distal phalanx of left thumb [id number]
--- NOTE | 2023-11-06 13:18 | EDPHYS ---
Physician Documentation [facility] Name: Brett Kramer Age: 43 yrs Sex: Male : 1980 Arrival Date: 11/06/2023 Time: 11:20 Bed 12 Private MD: Tim Brandth ED Physician Alex Lovelace HPI: 11/05 11:33 This 43 yrs old Male presents to ER via Ambulatory with complaints of Abscess. ec2 11:33 Patient arrives today for evaluation of thumb swelling. Patient notes that his left ec2 thumb had had some swelling and drainage from the area. Patient reports no fevers or chills, no nausea or vomiting. Reports history of diabetes and poor wound healing.. Historical: - Allergies: 11:31 No Known Allergies; iw - PMHx: 11:31 Diabetes - NIDDM; Hypertension; PE; iw - PSHx: 11:31 Heart Stents; iw - Immunization history:: Last tetanus immunization: < 10 years ago. - Social history:: Smoking status: Patient/guardian denies using tobacco. ROS: 11:33 Constitutional: as per hpi ec2 Exam: 11:33 Constitutional: GEN: NAD Head: atraumatic Eyes: EOMI Ears: External ears are ec2 normal. CV: regular rate LUNGS: no respiratory distress ABD: non-distended SKIN: no evidence of rashes, paronychia noted to the left medial thumb. MSK: no evidence of trauma NEURO: moves all extremities equally Vital Signs: 11:32 BP 156 / 104; Pulse 92; Resp 16; Temp 98.2; Pulse Ox 99% on R/A; Weight 127.91 kg; iw Height 5 ft. 9 in. ; Pain 8/10; 13:28 BP 150 / 98; Pulse 92; Resp 15; Temp 97; Pulse Ox 99% ; ko1 11:32 Body Mass Index 41.64 (127.91 kg, 175.26 cm) iw 11:32 Pain Scale: Adult iw Procedures: 12:53 I \T\ D: Incision and drainage was performed for an abscess of the right Prepped with ec2 alcohol, Anesthetized with 7 ml's 1% Lidocaine. Incised with #11 blade. Drained moderate amount purulent fluid. Dressing: sterile 4x4 gauze, the patient tolerated the procedure well. Nerve block: (digital) of dorsal aspect of proximal phalanx of right thumb Medication: Lidocaine 1% without epinephrine Amount: 7 mls were injected, Effect: the patient's symptoms are improved, markedly, Set up for procedure. Performed by Alex Lovelace MD Patient tolerated well. MDM: 11:33 Data reviewed: vital signs. ED course: Patient arrives today for evaluation of a ec2 paronychia. Examination remarkable for paronychia as noted above. Will perform digital nerve block and perform I\T\D. Patient otherwise without systemic signs and symptoms, will defer any lab work such as CBC or BMP.. 11:36 Patient medically screened. ec2 13:18 ED course: I\T\D performed without issue. Will discharge home. Return precautions given. ec2 Administered Medications: 12:47 Drug: Lidocaine Infiltration (1 %) 10 ml 20 ml Infiltration once; to bedside {Note: by ko1 Dr Lovelace.} Volume: 20 ml; Route: Infiltration; Disposition Summary: 11/06/23 13:18 Discharge Ordered Notes: Location: Home ec2 Condition: Stable ec2 Diagnosis - Paronychia ec2 Followup: ec2 - With: Private Physician - When: - Reason: Re-evaluation by your physician Discharge Instructions: - Discharge Summary Sheet ec2 - Paronychia, [id number] ec2 Forms: - Work release form ko1 - Medication Reconciliation Form ec2 - Thank You Letter ec2 - Antibiotic Education ec2 - Prescription Opioid Use ec2 - Patient Portal Instructions ec2 - Leadership Thank You Letter ec2 Prescriptions: - Doxycycline Hyclate 100 mg Oral tablet - take 1 tablet ORAL route every 12 hours for 7 days; 14 tablet; Refills: 0, ec2 Product Selection Permitted Signatures: Jojo Hale, RN RN Eden Gomez RN RN Alex Navarro MD MD ec2
[2023-11-06 14:02] VITALS: BP 150/98; TEMP 97; O2SAT 99
== END ==
LOC: ER 11:20
PROC: 0H9FXZZ Drainage of Right Hand Skin, External Approach (ICD-10-PCS; principal; 2023-11-06)
DX: L03.011 Cellulitis of right finger (principal)
CPT/HCPCS: 64450; 99284; 10060; J2001